=== PATIENT | male | born 1960 | race Caucasian/White ===

== ENCOUNTER 2020-05-19 12:00 | Outpatient (REF) | payer OTHER, SELFPAY ==
[2020-05-19 13:01] LABS: White Blood Count 6.7 X10*3/uL (4.8-10.8)
== END 2020-05-19 12:01 | disposition home or self-care (01) ==
LOC: HO.LABR 12:00
PROVIDERS: PCP Internal Medicine; Visit Provider Nurse Practitioner Psychiatric/Mental Health
DX: F25.0 Schizoaffective disorder, bipolar type (principal); Z79.899 Other long term (current) drug therapy
CPT/HCPCS: 36415; 85048

== ENCOUNTER 2020-05-23 18:01 | Emergency (ER) | payer OTHER, SELFPAY ==
[2020-05-23 18:10] VITALS: BP 98/72; PULSE 100; RESP 19; TEMP 36.4; O2SAT 96; BMI 37.3
--- NOTE | 2020-05-23 19:31 | ED.DENTAL ---
HPI - Dental/Oral General Chief complaint: Dental/Oral Stated complaint: dental pain Time Seen by Provider: 05/23/20 18:57 Source: patient Mode of arrival: ambulatory History of Present Illness HPI Narrative: 59-year-old male with a past medical history of diabetes, schizoaffective schizophrenia complaining of right-sided lower dental pain times months s/p breaking tooth. Reports food gets stuck in area, causing pain chewing. Denies fever, chills, difficulty/ painful swelling, inability to swallow. Reports having difficulty getting in with dentist MD Complaint: tooth pain Related Data Home Medications Medication Instructions Recorded Confirmed ammonium lactate 12 % topical cream 1 applic TOPICAL BID 05/14/20 atorvastatin 10 mg tablet 10 mg PO DAILY 05/14/20 clozapine 100 mg tablet 100 mg PO ONCE tab 05/14/20 dulaglutide 1.5 mg/0.5 mL 1.5 mg SUBCUT QWEEK 05/14/20 subcutaneous pen injector flash glucose scanning reader #1 ea 05/14/20 furosemide 20 mg tablet 20 mg PO DAILY 05/14/20 ibuprofen 800 mg tablet 800 mg PO Q8H 05/14/20 lactulose 10 gram/15 mL (15 mL) 15 ml PO BEDTIME 05/14/20 oral solution magnesium citrate 100 mg tablet 200 mg PO DAILY 05/14/20 metformin 500 mg tablet 500 mg PO BID 05/14/20 omega 8-imf-anr-fish oil 1,200 mg cap PO BID cap 05/14/20 (144 mg-216 mg) capsule zolpidem 10 mg tablet 10 mg PO BEDTIME PRN 05/14/20 Previous Rx's Medication Instructions Recorded dulaglutide 1.5 mg/0.5 mL 1.5 mg SUBCUT QWEEK 30 Days #2.5 ml 05/20/20 subcutaneous pen injector cholecalciferol (vitamin D3) 25 25 mcg PO DAILY 90 Days #90 cap 05/22/20 mcg (1,000 unit) capsule furosemide 20 mg tablet 20 mg PO DAILY 30 Days #30 tab 05/22/20 insulin degludec 100 unit/mL (3 76 unit SUBCUT QAM #24 ml 05/22/20 mL) subcutaneous pen amoxicillin-pot clavulanate 1 tab PO Q12H 7 Days #14 tab 05/23/20 [Augmentin] Allergies Allergy/AdvReac Type Severity Reaction Status Date / Time No Known Allergies Allergy Verified 05/14/20 11:09 [No Known Allergies*] Review of Systems Review of Systems: Constitutional: No Weight loss, No Fever, No Chills, No Night Sweats, No Fatigue, No Malaise ENT/Mouth: No Hearing loss, +R Ear Pain, No Nasal Congestion, No Sinus Pain, No Hoarseness, No sore throat, +dental pain Eyes: No Eye Pain Cardiovascular: No Chest Pain, No SOB Respiratory: No Cough, No Sputum, No Wheezing Skin: No Skin Lesions, No rash PMFSH Past Medical History Attestation statement: The following information was validated with the patient. Medical History (Updated 05/23/20 @ 19:32 by LEXIE Escobar) Diabetes type 2, uncontrolled Schizo affective schizophrenia Surgical History No pertinent past surgical history Family History Family History (Updated 05/14/20 @ 11:11 by Gloria Cohen Zhao) Father HTN (hypertension) Mother Diabetes Social History Social History Alcohol intake: current Alcohol intake frequency: 0-2 drinks per day Alcohol type: beer Smoking Status: Current every day smoker Smoked in Last 30 Days: Yes Use of substances other than those prescribed or required for medical reasons: No Advance Directives: No Advance Directives Information Provided: No Physical Exam Vital Signs: Vital Signs: Vital Signs Temp Pulse Resp BP Pulse Ox 05/23/20 18:10 97.6 F 100 19 98/72 96 Body Mass Index 37.3 Const: General: cooperative and healthy appearing Orientation/consciousness: patient oriented x3 Limitations: no limitations HENMT: Other: multiple dental caries. Right lower gums erythematous/inflamed with ttp. No fluctuance/induration Head: Yes normal to inspection Ears: hearing grossly normal bilaterally and TM's normal bilaterally General nose exam: Normal external nose present Face and sinus: Yes normal facial exam Mouth: Normal oral and palatal mucosa present Teeth and gingiva: abnormal tooth and associated gingiva and poor dentition Throat: Yes uvula midline Eyes: General: appearance normal, both eyes and all related structures EOM: EOMs intact bilaterally Neck: Neck: Yes normal visual inspection and Yes no lymphadenopathy Resp: Effort & Inspection: normal respiratory effort Skin: Wounds: no wounds Neuro: General: patient oriented x3 Extrem: General: Yes normal to inspection Discharge Plan Discharge Clinical Impression: Dental caries Patient Disposition: Home, Self-Care Instructions: Toothache (ED) Additional Instructions: Augmentin is an antibiotic, start taking as prescribed until completion Take Tylenol and Motrin at home for pain Not ice her face You need to follow-up with a dentist as soon as possible If pain becomes worse, fever, there is drainage from area, your unable to eat or drink return to the ED Prescriptions: New amoxicillin-pot clavulanate [Augmentin] 875-125 mg tablet 1 tab PO Q12H 7 Days Qty: 14 RF: 0 No Action Trulicity 1.5 mg/0.5 mL pen injector 1.5 mg subcut QWEEK 30 Days Qty: 2.5 RF: 4 furosemide 20 mg tablet 20 mg PO DAILY 30 Days Qty: 30 RF: 1 insulin degludec [Tresiba FlexTouch U-100] 100 unit/mL (3 mL) insulin pen 76 unit subcut QAM Qty: 24 RF: 0 cholecalciferol (vitamin D3) 25 mcg (1,000 unit) capsule 25 mcg PO DAILY 90 Days Qty: 90 RF: 0 ammonium lactate 12 % cream 1 applic topical BID RF: 0
== END 2020-05-23 19:55 | disposition home or self-care (01) ==
PROVIDERS: Emergency Provider Emergency Medicine Emergency Medical Services; PCP Internal Medicine
DX: K02.9 Dental caries, unspecified (principal); Z79.899 Other long term (current) drug therapy
CPT/HCPCS: 99283; 99284

== ENCOUNTER → 2020-06-01 09:09 | Outpatient (BNVA) | payer OTHER, SELFPAY | PROVIDERS: PCP Internal Medicine; Referring Provider Internal Medicine; Visit Provider Internal Medicine Endocrinology, Diabetes & Metabolism | DX: E11.65 Type 2 diabetes mellitus with hyperglycemia (principal); E66.01 Morbid (severe) obesity due to excess calories; E78.5 Hyperlipidemia, unspecified; E11.649 Type 2 diabetes mellitus with hypoglycemia without coma; E11.42 Type 2 diabetes mellitus with diabetic polyneuropathy; Z79.4 Long term (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 | CPT/HCPCS: 82947; 99214 ==

== ENCOUNTER 2020-06-15 12:15 | Outpatient (REF) | payer OTHER, SELFPAY ==
[2020-06-15 13:29] LABS: Neut%MD 73.4 %; Neutrophils Absolute Auto 4.2 X10*3/uL (2.0-8.3); White Blood Count 5.7 X10*3/uL (4.8-10.8)
[2020-06-15 14:03] LABS: Alanine Aminotransferase 53 U/L (0-40); Albumin Level 4.3 g/dL (3.5-5.0); Alkaline Phosphatase 123 U/L (39-117); Anion Gap 7 (12-20); Aspartate Amino Transferase 28 U/L (5-37); Bilirubin Total 0.5 mg/dL (0.0-1.0); Blood Urea Nitrogen 25 mg/dL (9-16); Calcium 8.4 mg/dL (8.4-10.2); Carbon Dioxide 30 mmol/L (22-29); Chloride 107 mmol/L (96-108); Cholesterol 139 mg/dL; Estimated Glomerular Filt Rate > 60; Glucose Fasting 253 mg/dL (60-99); HDL Cholesterol 28 mg/dL; LDL Cholesterol Calculated 64 mg/dl; Sodium 140 mmol/L (135-145); Total Protein 7.1 g/dL (6.5-8.0); Triglycerides 238 mg/dL
[2020-06-15 14:23] LABS: Vitamin B12 444 pg/mL (200-900)
[2020-06-16 08:12] LABS: LDL Cholesterol Direct 81 mg/dL (<100)
== END 2020-06-15 12:16 | disposition home or self-care (01) ==
LOC: HO.LAB 12:15
PROVIDERS: Absent Provider Nurse Practitioner Psychiatric/Mental Health; PCP Internal Medicine; Visit Provider Internal Medicine Endocrinology, Diabetes & Metabolism
DX: E11.65 Type 2 diabetes mellitus with hyperglycemia (principal); F25.0 Schizoaffective disorder, bipolar type
CPT/HCPCS: 36415; 80053; 80061; 82607; 83721

== ENCOUNTER → 2020-06-26 12:01 | Outpatient (BNVA) | payer OTHER, SELFPAY | PROVIDERS: PCP Internal Medicine; Referring Provider Internal Medicine; Visit Provider Dietitian, Registered | DX: Z76.89 Persons encountering health services in other specified circumstances (principal) ==

== ENCOUNTER 2020-07-03 11:15 | Outpatient (REF) | payer OTHER, SELFPAY ==
--- NOTE | 2020-07-03 11:21 | XR_ITS ---
EXAMINATION: XR KNEE, RIGHT CLINICAL INFORMATION: Right knee pain. COMPARISON: Right knee radiographs dated 06/28/2013. TECHNIQUE: Four views of the right knee. FINDINGS: Mild medial femoral-tibial and patellofemoral joint space narrowing is seen. There is no acute fracture, dislocation or joint effusion. The soft tissues are unremarkable. XR/XR knee RT 4V IMPRESSION: Mild medial femoral-tibial and patellofemoral joint space narrowing, a component of which may be projectional, but mild degenerative joint space narrowing cannot be excluded suggesting mild osteoarthritis. No acute abnormality.
--- NOTE | 2020-07-03 11:21 | XR_ITS ---
EXAMINATION: XR FOOT, RIGHT CLINICAL INFORMATION: Right foot pain. COMPARISON: None TECHNIQUE: AP, lateral, and oblique views of the right foot. FINDINGS: There is no acute fracture or dislocation. The joint spaces are unremarkable. The tarsal bones are normally aligned. Small plantar and moderate retrocalcaneal spurs are seen. The soft tissues are unremarkable. XR/XR foot RT min 3V IMPRESSION: Degenerative calcaneal spurs as detailed above without other significant abnormality.
--- NOTE | 2020-07-03 11:21 | XR_ITS ---
EXAMINATION: XR KNEE, LEFT CLINICAL INFORMATION: Left knee pain. COMPARISON: Left knee radiographs. TECHNIQUE: Four views of the left knee. FINDINGS: Bones and soft tissues are normal. No fracture or joint effusion. Alignment is anatomic. Joint spaces are well maintained. No abnormal soft tissue calcification. XR/XR knee LT 4V IMPRESSION: Unremarkable left knee.
--- NOTE | 2020-07-03 11:21 | XR_ITS ---
EXAMINATION: XR FOOT, LEFT CLINICAL INFORMATION: Left foot pain. COMPARISON: 10/16/2019 left foot radiographs. TECHNIQUE: AP, lateral, and oblique views of the left foot. FINDINGS: There is no acute fracture or dislocation. The joint spaces are unremarkable. The tarsal bones are normally aligned. Small plantar and retrocalcaneal spurs are seen. The soft tissues are unremarkable. XR/XR foot LT min 3V IMPRESSION: Small degenerative calcaneal spurs without significant change.
== END 2020-07-03 11:16 | disposition home or self-care (01) ==
LOC: HO.XRAY 11:15
PROVIDERS: PCP Internal Medicine; Visit Provider Internal Medicine
DX: M79.671 Pain in right foot (principal); M25.561 Pain in right knee; Z13.9 Encounter for screening, unspecified
CPT/HCPCS: 73564; 73630

== ENCOUNTER 2020-07-11 06:18 | Emergency (ER) | payer OTHER, SELFPAY ==
[2020-07-11 06:20] VITALS: BP 120/93; PULSE 84; RESP 18; TEMP 37.5; O2SAT 98; BMI 37.3
[2020-07-11 06:28] VITALS: BP 120/93; PULSE 86; RESP 18; TEMP 37.5; O2SAT 97
[2020-07-11 06:29] VITALS: BP 120/93; PULSE 84; RESP 18; TEMP 37.5; O2SAT 98
[2020-07-11 06:35] LABS: Glucose, Whole Blood 153 mg/dL (60-115)
--- NOTE | 2020-07-11 06:45 | MHC.MBSS ---
pt A&O. NO SOB . NO CHEST PAIN. NO DIZZINESS OR LIGHTHEADEDNESS. PT AMBULATING WITH A STEADY GAIT. PROVIDER IN TO ASSESS PT. BREAKFAST ORDERD FOR PT.
--- NOTE | 2020-07-11 07:04 | ED.GENADULT ---
HPI - General Adult General Chief complaint: General Medical Stated complaint: Med Error Time Seen by Provider: 07/11/20 06:56 Source: patient Mode of arrival: ambulatory Limitations: no limitations History of Present Illness HPI narrative: History of diabetes takes 38 units of Lantus insulin in the morning every day today he took 38 units at 05:30 am and noticed that needle of the syringe was bent but not sure whether received insulin not so he took the 2nd dose of same 38 units but later he realized that he got extra insulin as the first one also injected. patient did not take any short-acting insulin. patient otherwise feeling fine on arrival patient's blood sugar was 153. Also patient would like to get tested for COVID as he went to [employer] yesterday Related Data Home Medications Medication Instructions Recorded Confirmed ammonium lactate 12 % topical cream 1 applic TOPICAL BID 05/14/20 07/03/20 clozapine 100 mg tablet 100 mg PO ONCE tab 05/14/20 07/03/20 flash glucose scanning reader #1 ea 05/14/20 06/01/20 ibuprofen 800 mg tablet 800 mg PO Q8H 05/14/20 07/03/20 lactulose 10 gram/15 mL (15 mL) 15 ml PO BEDTIME 05/14/20 07/03/20 oral solution magnesium citrate 100 mg tablet 200 mg PO DAILY 05/14/20 07/03/20 omega 7-nan-ufz-fish oil 1,200 mg cap PO BID cap 05/14/20 06/01/20 (144 mg-216 mg) capsule zolpidem 10 mg tablet 10 mg PO BEDTIME PRN 05/14/20 07/03/20 Previous Rx's Medication Instructions Recorded furosemide 20 mg tablet 20 mg PO DAILY 30 Days #30 tab 05/22/20 atorvastatin 10 mg tablet 10 mg PO DAILY 30 Days #30 tab 06/01/20 dulaglutide 1.5 mg/0.5 mL 1.5 mg SUBCUT QWEEK 30 Days #2.5 ml 06/01/20 subcutaneous pen injector insulin degludec 100 unit/mL (3 42 unit SUBCUT QAM 30 Days #15 ml 06/01/20 mL) subcutaneous pen metformin 500 mg tablet 500 mg PO BID 30 Days #60 tab 06/01/20 pen needle, diabetic 29 gauge x #100 ea 06/15/20 3/8 cholecalciferol (vitamin D3) 25 25 mcg PO DAILY #90 cap 06/18/20 mcg (1,000 unit) capsule Allergies Allergy/AdvReac Type Severity Reaction Status Date / Time No Known Allergies Allergy Verified 07/03/20 10:37 [No Known Allergies*] Review of Systems Review of Systems: REVIEW OF SYSTEMS: Pertinent positives and negatives are stated above in the history. GEN: no fevers, chills, fatigue HEENT: no nasal congestion, sore throat, ear pain NEURO: no headache, dizziness, focal weakness PULM: no cough, shortness of breath CV: no chest pain, palpitations, LE edema ABD: no abdominal pain, nausea, vomiting, diarrhea : no dysuria, urgency, frequency SKIN: no rash ROS otherwise negative x 10 PMFSH Past Medical History Medical History Benign essential hypertension Chronic kidney disease (CKD), stage III (moderate) Diabetes type 2, uncontrolled Diabetic polyneuropathy associated with 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 mellitus Dyslipidemia 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 mellitus Knee osteoarthritis 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, 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 Morbid obesity Obesity (BMI 30-39.9) Pain in both feet Pure hypercholesterolemia Schizo affective schizophrenia Schizoaffective disorder Type 2 diabetes mellitus with diabetic chronic kidney disease Surgical History History of repair of congenital cleft palate Hx of circumcision No pertinent past surgical history Family History Family History Father HTN (hypertension) Mother Diabetes Social History Social History Alcohol intake: former Smoking Status: Current every day smoker Smoked in Last 30 Days: No Use of substances other than those prescribed or required for medical reasons: No Advance Directives: No Advance Directives Information Provided: No Physical Exam Vital Signs: Vital Signs: Last Vital Signs Temp 99.5 F 07/11/20 06:29 Pulse 84 07/11/20 06:29 Resp 18 07/11/20 06:29 BP 120/93 H 07/11/20 06:29 Pulse Ox 98 07/11/20 06:29 Body Mass Index 37.3 Appearance: Alert. Oriented X3. No acute distress. Eyes: Pupils equal, round and reactive to light. ENT: Pharynx normal. Neck: Normal inspection. Neck supple. CVS: Normal heart rate and rhythm. Pulses normal. Respiratory: No respiratory distress. Breath sounds normal. Abdomen: Soft and nontender. Skin: Skin warm and dry. Normal skin color. Normal skin turgor. Extremities: No lower extremity edema. Good range of movement Neuro: Oriented X 3. No motor deficit. No sensory deficit. Medical Decision Making MDM Narrative Medical decision making narrative: patient with accidental increased dosage of Lantus insulin blood sugar is stable had breakfast in the morning will discharge him home advised to keep checking his blood sugar later on during the daytime and have extra meals not to take any metformin today Lab Data Labs: Lab Results 07/11/20 07/11/20 Range/Units 06:24 09:00 POC Glucose 153 H 188 H (60-115) mg/dL Discharge Plan Discharge Clinical Impression: Diabetes type 2, uncontrolled Patient Disposition: Home, Self-Care Instructions: Type 2 Diabetes Management for Adults (ED) Additional Instructions: check blood sugar every 4 hour during the daytime today. Have extra meal. Report to the ER if blood pressure sugar is consistently lower than 60 Prescriptions: No Action furosemide 20 mg tablet 20 mg PO DAILY 30 Days Qty: 30 RF: 1 Trulicity 1.5 mg/0.5 mL pen injector 1.5 mg subcut QWEEK 30 Days Qty: 2.5 RF: 4 Tresiba FlexTouch U-100 100 unit/mL (3 mL) insulin pen 42 unit subcut QAM 30 Days Qty: 15 RF: 6 (DME) pen needle, diabetic 29 gauge x 3/8 needle See Rx Instructions .ROUTE .MEDSUPPLY Qty: 100 RF: 0 cholecalciferol (vitamin D3) 25 mcg (1,000 unit) capsule 25 mcg PO DAILY Qty: 90 RF: 12 omega 7-jgq-aaz-fish oil [Fish Oil] 1,200 (144-216) mg capsule PO BID RF: 0 zolpidem 10 mg tablet 10 mg PO BEDTIME PRNRF: 0 ammonium lactate 12 % cream 1 applic topical BID RF: 0 magnesium citrate 100 mg tablet 200 mg PO DAILY RF: 0 (DME) FreeStyle Jody 14 Day [place] Misc See Rx Instructions .ROUTE .MEDSUPPLY Qty: 1 RF: 0 lactulose 10 gram/15 mL (15 mL) solution 15 ml PO BEDTIME RF: 0 ibuprofen 800 mg tablet 800 mg PO Q8H RF: 0 clozapine 100 mg tablet 100 mg PO ONCE RF: 0 metformin 500 mg tablet 500 mg PO BID 30 Days Qty: 60 RF: 6 atorvastatin [Lipitor] 10 mg tablet 10 mg PO DAILY 30 Days Qty: 30 RF: 6 Interventions: ED Discharge Assessment Last Done: 07/11/20 09:18 Discharge Date/Time: 07/11/20 09:18
[2020-07-11 09:04] LABS: Glucose, Whole Blood 188 mg/dL (60-115)
== END 2020-07-11 09:18 | disposition home or self-care (01) ==
PROVIDERS: Emergency Provider Internal Medicine; PCP Internal Medicine
DX: E11.9 Type 2 diabetes mellitus without complications (principal); Z79.899 Other long term (current) drug therapy; Z20.828 Contact with and (suspected) exposure to other viral communicable diseases; F17.200 Nicotine dependence, unspecified, uncomplicated; Z71.6 Tobacco abuse counseling
CPT/HCPCS: 82947; 99283; 99284; U0003

== ENCOUNTER 2020-07-13 07:45 | Outpatient (REF) | payer OTHER, SELFPAY ==
[2020-07-13 08:10] LABS: Neut%MD 75.3 %; Neutrophils Absolute Auto 6.7 X10*3/uL (2.0-8.3); WBCANC 8.9 X10*3/uL; White Blood Count 8.9 X10*3/uL (4.8-10.8)
== END 2020-07-13 07:46 | disposition home or self-care (01) ==
LOC: HO.LABR 07:45
PROVIDERS: PCP Internal Medicine; Visit Provider Nurse Practitioner Psychiatric/Mental Health
DX: F25.0 Schizoaffective disorder, bipolar type (principal); Z79.899 Other long term (current) drug therapy
CPT/HCPCS: 36415

== ENCOUNTER 2020-07-24 19:56 | Inpatient (IN) | payer OTHER, SELFPAY ==
[2020-07-24] VITALS (8 sets, daily range): BP systolic 88–117; BP diastolic 53–71; PULSE 80–102; RESP 16–20; TEMP 36.4–36.8; O2SAT 96–97; BMI 81.4
--- NOTE | 2020-07-24 | ECG_ITS ---
Test Reason : CHEST PAIN Blood Pressure : / mmHG Vent. Rate : 103 BPM Atrial Rate : 103 BPM P-R Int : 142 ms QRS Dur : 090 ms QT Int : 372 ms P-R-T Axes : 046 -25 009 degrees QTc Int : 487 ms Sinus tachycardia Otherwise normal ECG When compared with ECG of 09-JAN-2017 17:25, No significant change was found Referred By: Generic ED Physician Electronically Signed By:NEVILLE SOTO
--- NOTE | 2020-07-24 20:36 | PC.NURSE ---
with standing pt states he is dizzy. pt placed in a wheelchair after triaged.
--- NOTE | 2020-07-24 21:05 | XR_ITS ---
EXAMINATION: XR CHEST CLINICAL INFORMATION: Chest pain COMPARISON: 01/09/2017 TECHNIQUE: Frontal view of the chest was obtained. FINDINGS: No significant abnormality is noted involving the heart, lungs, mediastinum, bony thorax or soft tissues. Some mild degenerative changes are present in the spine and there is a tiny area of atelectasis in the left lower lobe. XR/XR chest 1V IMPRESSION: No acute intrathoracic disease.
--- NOTE | 2020-07-24 21:40 | ED.CHESTPAIN ---
HPI - Chest Pain General Chief Complaint: Chest Pain Stated Complaint: Chest pain/Dizziness Time Seen by Provider: 07/24/20 20:50 Source: patient Mode of arrival: ambulatory Limitations: no limitations History of Present Illness HPI narrative: This is a 59-year-old male with significant past medical history of diabetes presents with reported chest pain to the left anterior chest, aching in nature, non radiating that lasted approximately 1 to 1-1/2 hours at approximately 5:30 p.m. this evening. Patient states that this occurred at his [employer] job. 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 In addition, patient states that he has been having some difficulties with dizziness that he experiences when he changes position from being in a bent over position to a standing position that is transient in nature and does describe associated problems with a recent bout of diarrhea that is nonbloody. Otherwise, patient denies any fevers, chills, shortness of breath, diaphoresis, nausea, vomiting, abdominal pain, urinary pain/burning/frequency. He lives at home by himself. Related Data Home Medications Medication Instructions Recorded Confirmed clozapine 100 mg tablet 100 mg PO ONCE tab 05/14/20 07/25/20 flash glucose scanning reader #1 ea 05/14/20 07/25/20 ibuprofen 800 mg tablet 800 mg PO Q8H 05/14/20 07/25/20 omega 2-rjg-ift-fish oil 1,200 mg 1 cap PO BID cap 05/14/20 07/25/20 (144 mg-216 mg) capsule insulin degludec [Tresiba 65 unit SUBCUT QAM 07/25/20 07/25/20 FlexTouch U-200] Previous Rx's Medication Instructions Recorded furosemide 20 mg tablet 20 mg PO DAILY 30 Days #30 tab 05/22/20 atorvastatin 10 mg tablet 10 mg PO DAILY 30 Days #30 tab 06/01/20 dulaglutide 1.5 mg/0.5 mL 1.5 mg SUBCUT QWEEK 30 Days #2.5 ml 06/01/20 subcutaneous pen injector metformin 500 mg tablet 500 mg PO BID 30 Days #60 tab 06/01/20 pen needle, diabetic 29 gauge x #100 ea 06/15/20 3/8 cholecalciferol (vitamin D3) 25 25 mcg PO DAILY #90 cap 06/18/20 mcg (1,000 unit) capsule lactulose 10 gram/15 mL (15 mL) 15 ml PO BEDTIME #600 ml 07/20/20 oral solution Allergies Allergy/AdvReac Type Severity Reaction Status Date / Time No Known Allergies Allergy Verified 07/20/20 10:27 [No Known Allergies*] Review of Systems Review of Systems: Pertinent positives and negatives as stated in HPI 10 point review of systems otherwise negative. 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 Morbid obesity Obesity (BMI 30-39.9) Pain in both feet Pure hypercholesterolemia Schizo affective schizophrenia Schizoaffective disorder Type 2 diabetes mellitus with diabetic chronic kidney disease Surgical History History of repair of congenital cleft palate Hx of circumcision No pertinent past surgical history Family History Family History Father HTN (hypertension) Mother Diabetes Social History Social History Alcohol intake: former Smoking Status: Current every day smoker Smoked in Last 30 Days: No Use of substances other than those prescribed or required for medical reasons: No Advance Directives: No Advance Directives Information Provided: Yes Physical Exam Vital Signs: Vital Signs: Last Vital Signs Temp 97.4 F 07/25/20 05:49 Pulse 82 07/25/20 05:49 Resp 16 07/25/20 05:49 BP 116/75 07/25/20 05:49 Pulse Ox 95 07/25/20 05:49 Body Mass Index 81.4 VITAL SIGNS: Reviewed. GENERAL: Morbidly obese, Well developed, well nourished, in no acute distress. HEAD: Normocephalic/atraumatic, EYES: PERRLA, EOMI intact without pain, no nystagmus/pallor/icterus noted EARS: Ext canals without abnormality, TMs non-bulging and non-erythematous NOSE: Nares patent bilateral OROPHARYNX: no oral lesions noted, posterior pharynx clear and non-erythematous without noted tonsillar enlargement/erythema/exudates NECK: Supple, no adenopathy LUNGS: Normal breath sounds. No adventitious sounds or accessory muscle use. SpO2<96> CARDIOVASCULAR: Regular rate and rhythm without noted murmurs, no JVD or lower extremity edema. ABDOMEN: Soft, non-tender, non-distended with bowel sounds. No rigidity. No guarding. No palpable masses or hernias noted MUSCULOSKELETAL: No tenderness, deformities, or effusions noted on gross inspection. EXTREMITIES: No cyanosis, clubbing or edema. SKIN: Inspection of the skin reveals no rashes, ulcerations, jaundice, pallor, or petechiae. NEUROLOGIC: Alert and oriented x 4. Strength and sensation to light touch were grossly intact x 4. Course Course Course Narrative: This is a 59-year-old male with history and clinical presentation suggestive of chest pain of a musculoskeletal nature, however will rule out pneumonia, cardiac ischemia and dizziness that is not associated with focal deficits and is likely secondary to a combination poorly controlled diabetes in conjunction with volume depleted state after diarrhea. Will rule out DKA, HHS, infection, or anemia. On review of all investigations patient has a leukocytosis which in combination with the hypotension and tachycardia meets severe sepsis criteria and was treated accordingly with blood cultures, lactic acid, antibiotics, fluids (IBW). Chest x-ray although being read as atelectasis in the left lower lobe in conjunction with patient's reports of left-sided chest pain suspicious for possible development of pneumonia. Patient's blood pressure responded well to IV hydration and there was no evidence of DKA or HHS. Urinalysis was negative for any acute findings and unable to CT chest currently as patient exceeds CT scan weight limitations. High sensitivity troponin was noted to be mildly elevated there were no corresponding EKG changes but will get a 2nd high sensitivity troponin. This case was discussed with the inpatient hospitalist team who is agreeable for admission. Reevaluation(s) Reevaluation #1: Sepsis focused exam completed. Time: 00:59 [facility] - Chest Pain Lab Data Result diagrams: 07/24/20 22:06 07/24/20 22:06 Labs: Lab Results 07/24/20 07/24/20 07/24/20 Range/Units 21:42 22:06 22:06 WBC 14.1 H (4.8-10.8) X10*3/uL RBC 4.77 (4.60-5.80) X10*6/uL Hgb 14.6 (14.0-18.0) g/dl Hct 40.6 L (42-52) % MCV 85.1 (80-98) fL MCH 30.6 (27.0-33.0) pg MCHC 36.0 (31.0-36.0) g/dl RDW 13.2 (11.0-16.0) % Plt Count 138 L (160-400) X10*3/uL MPV 10.4 (9.4-12.4) fL Immature Gran % (Auto) 0.4 (0.0-0.4) % Neut % (Auto) 81.2 H (45-73) % Lymph % (Auto) 12.1 L (20-40) % [place] % (Auto) 6.2 (2-11) % Eos % (Auto) 0.0 (0-4) % Baso % (Auto) 0.1 (0-2) % Lymph # (Auto) 1.7 (1.2-4.9) X10*3/uL [place] # (Auto) 0.9 (0.1-1.2) X10*3/uL Eos # (Auto) 0.0 (0.0-0.4) X10*3/uL Baso # (Auto) 0.0 (0.0-0.2) X10*3/uL Abs Immat Gran (auto) 0.06 H (0.00-0.03) X10*3/uL Absolute Neuts (auto) 11.4 H (2.0-8.3) X10*3/uL Absolute Nucleated RBC 0.000 (0.0-0.012) X10*3/uL Nucleated RBC % (auto) 0.0 (0.0-0.2) /100WBC Smear Tech's Comments VERIFIED Sodium 138 (135-145) mmol/L Potassium 3.8 (3.3-5.1) mmol/l Chloride 101 (96-108) mmol/L Carbon Dioxide 24 (22-29) mmol/L Anion Gap 17 (12-20) BUN 19 H (9-16) mg/dL Creatinine 1.98 H (0.5-1.4) mg/dL Estim Creat Clear Calc 93.1 Estimated GFR 35 POC Glucose 137 H (60-115) mg/dL Random Glucose 140 H (60-115) mg/dL Lactic Acid (0.5-2.0) mmol/L Calcium 9.5 D (8.4-10.2) mg/dL Total Bilirubin 0.6 (0.0-1.0) mg/dL AST 24 (5-37) U/L ALT 60 H (0-40) U/L Alkaline Phosphatase 129 H (39-117) U/L Troponin I High Sens (<3.5-35.0) ng/L Total Protein 7.4 (6.5-8.0) g/dL Albumin 4.5 (3.5-5.0) g/dL Lipase (8-78) U/L Urine Color Urine Appearance Urine pH (5.0-8.0) Ur Specific Painter (1.005-1.025) Urine Protein (NEG-TRACE) MG/DL Urine Glucose (UA) (NEG) MG/DL Urine Ketones (NEG) MG/DL Urine Blood (NEG) Urine Nitrite (NEG) Ur Leukocyte Esterase (NEG) Acetone, Qual Negative (Negative) Coronavirus (PCR) (Negative) Influenza Type A (PCR) (Negative) Influenza Type B (PCR) (Negative) RSV RNA Qual (PCR) (Negative) 07/24/20 07/24/20 07/24/20 Range/Units 22:06 22:06 22:06 WBC (4.8-10.8) X10*3/uL RBC (4.60-5.80) X10*6/uL Hgb (14.0-18.0) g/dl Hct (42-52) % MCV (80-98) fL MCH (27.0-33.0) pg MCHC (31.0-36.0) g/dl RDW (11.0-16.0) % Plt Count (160-400) X10*3/uL MPV (9.4-12.4) fL Immature Gran % (Auto) (0.0-0.4) % Neut % (Auto) (45-73) % Lymph % (Auto) (20-40) % [place] % (Auto) (2-11) % Eos % (Auto) (0-4) % Baso % (Auto) (0-2) % Lymph # (Auto) (1.2-4.9) X10*3/uL [place] # (Auto) (0.1-1.2) X10*3/uL Eos # (Auto) (0.0-0.4) X10*3/uL Baso # (Auto) (0.0-0.2) X10*3/uL Abs Immat Gran (auto) (0.00-0.03) X10*3/uL Absolute Neuts (auto) (2.0-8.3) X10*3/uL Absolute Nucleated RBC (0.0-0.012) X10*3/uL Nucleated RBC % (auto) (0.0-0.2) /100WBC Smear Tech's Comments Sodium (135-145) mmol/L Potassium (3.3-5.1) mmol/l Chloride (96-108) mmol/L Carbon Dioxide (22-29) mmol/L Anion Gap (12-20) BUN (9-16) mg/dL Creatinine (0.5-1.4) mg/dL Estim Creat Clear Calc Estimated GFR POC Glucose (60-115) mg/dL Random Glucose (60-115) mg/dL Lactic Acid 1.8 (0.5-2.0) mmol/L Calcium (8.4-10.2) mg/dL Total Bilirubin (0.0-1.0) mg/dL AST (5-37) U/L ALT (0-40) U/L Alkaline Phosphatase (39-117) U/L Troponin I High Sens 11.4 (<3.5-35.0) ng/L Total Protein (6.5-8.0) g/dL Albumin (3.5-5.0) g/dL Lipase 26 (8-78) U/L Urine Color Urine Appearance Urine pH (5.0-8.0) Ur Specific Painter (1.005-1.025) Urine Protein (NEG-TRACE) MG/DL Urine Glucose (UA) (NEG) MG/DL Urine Ketones (NEG) MG/DL Urine Blood (NEG) Urine Nitrite (NEG) Ur Leukocyte Esterase (NEG) Acetone, Qual (Negative) Coronavirus (PCR) (Negative) Influenza Type A (PCR) (Negative) Influenza Type B (PCR) (Negative) RSV RNA Qual (PCR) (Negative) 07/25/20 07/25/20 07/25/20 Range/Units 00:30 00:32 00:51 WBC (4.8-10.8) X10*3/uL RBC (4.60-5.80) X10*6/uL Hgb (14.0-18.0) g/dl Hct (42-52) % MCV (80-98) fL MCH (27.0-33.0) pg MCHC (31.0-36.0) g/dl RDW (11.0-16.0) % Plt Count (160-400) X10*3/uL MPV (9.4-12.4) fL Immature Gran % (Auto) (0.0-0.4) % Neut % (Auto) (45-73) % Lymph % (Auto) (20-40) % [place] % (Auto) (2-11) % Eos % (Auto) (0-4) % Baso % (Auto) (0-2) % Lymph # (Auto) (1.2-4.9) X10*3/uL [place] # (Auto) (0.1-1.2) X10*3/uL Eos # (Auto) (0.0-0.4) X10*3/uL Baso # (Auto) (0.0-0.2) X10*3/uL Abs Immat Gran (auto) (0.00-0.03) X10*3/uL Absolute Neuts (auto) (2.0-8.3) X10*3/uL Absolute Nucleated RBC (0.0-0.012) X10*3/uL Nucleated RBC % (auto) (0.0-0.2) /100WBC Smear Tech's Comments Sodium (135-145) mmol/L Potassium (3.3-5.1) mmol/l Chloride (96-108) mmol/L Carbon Dioxide (22-29) mmol/L Anion Gap (12-20) BUN (9-16) mg/dL Creatinine (0.5-1.4) mg/dL Estim Creat Clear Calc Estimated GFR POC Glucose (60-115) mg/dL Random Glucose (60-115) mg/dL Lactic Acid (0.5-2.0) mmol/L Calcium (8.4-10.2) mg/dL Total Bilirubin (0.0-1.0) mg/dL AST (5-37) U/L ALT (0-40) U/L Alkaline Phosphatase (39-117) U/L Troponin I High Sens 10.7 (<3.5-35.0) ng/L Total Protein (6.5-8.0) g/dL Albumin (3.5-5.0) g/dL Lipase (8-78) U/L Urine Color YELLOW Urine Appearance CLEAR Urine pH 6.0 (5.0-8.0) Ur Specific Painter 1.010 (1.005-1.025) Urine Protein TRACE (NEG-TRACE) MG/DL Urine Glucose (UA) NEG (NEG) MG/DL Urine Ketones NEG (NEG) MG/DL Urine Blood NEG (NEG) Urine Nitrite NEG (NEG) Ur Leukocyte Esterase NEG (NEG) Acetone, Qual (Negative) Coronavirus (PCR) NEGATIVE (Negative) Influenza Type A (PCR) NEGATIVE (Negative) Influenza Type B (PCR) NEGATIVE (Negative) RSV RNA Qual (PCR) NEGATIVE (Negative) ECG Data ECG #1: Attestation: I personally reviewed and interpreted this ECG as follows: Prior ECG tracings: available for review (01/09/2017 no acute changes on comparison) Interpretation: Normal sinus rhythm, HR-103, no evidence of acute ischemia, IN/QRS/QTC within normal limits Discharge Plan Discharge Clinical Impression: Severe sepsis Pneumonia Qualifiers: Pneumonia type: due to unspecified organism Laterality: unspecified laterality Lung location: unspecified part of lung Qualified Code(s): J18.9 - Pneumonia, unspecified organism Patient Disposition: Admitted As Inpatient
[2020-07-24 21:48] LABS: Glucose, Whole Blood 137 mg/dL (60-115)
[2020-07-24 22:18] LABS: Basophils Percent Auto 0.1 % (0-2); Imm Gran Pct Auto 0.4 % (0.0-0.4); MANUAL DIFF FLAG SCAN; Mean Corpuscular Volume 85.1 fL (80-98); Mean Platelet Volume 10.4 fL (9.4-12.4); Neutrophils Percent Auto 81.2 % (45-73); PLT CLUMP 1; SCAN SMEAR FLAG 1
[2020-07-24 22:19] LABS: Hematocrit 40.6 % (42-52); Hemoglobin 14.6 g/dl (14.0-18.0); Imm Gran Abs Auto 0.06 X10*3/uL (0.00-0.03); Lymphocytes Absolute Auto 1.7 X10*3/uL (1.2-4.9); Lymphocytes Percent Auto 12.1 % (20-40); Mean Corpuscular Hemoglobin 30.6 pg (27.0-33.0); Monocytes Absolute Auto 0.9 X10*3/uL (0.1-1.2); Monocytes Percent Auto 6.2 % (2-11); Neutrophils Absolute Auto 11.4 X10*3/uL (2.0-8.3); Platelet Count 138 X10*3/uL (160-400); Red Blood Count 4.77 X10*6/uL (4.60-5.80); Red Cell Distribution Width 13.2 % (11.0-16.0); White Blood Count 14.1 X10*3/uL (4.8-10.8)
[2020-07-24 22:20] LABS: SLIDE REVIEW VERIFIED
[2020-07-24] MEDS: 0.9 % Sodium Chloride 2,397 ML 2397 ML IVCONT (22:33)
[2020-07-24 22:45] LABS: Lipase 26 U/L (8-78)
[2020-07-24 22:47] LABS: Alanine Aminotransferase 60 U/L (0-40); Albumin Level 4.5 g/dL (3.5-5.0); Alkaline Phosphatase 129 U/L (39-117); Anion Gap 17 (12-20); Aspartate Amino Transferase 24 U/L (5-37); Bilirubin Total 0.6 mg/dL (0.0-1.0); Blood Urea Nitrogen 19 mg/dL (9-16); Calcium 9.5 mg/dL (8.4-10.2); Carbon Dioxide 24 mmol/L (22-29); Chloride 101 mmol/L (96-108); Creatinine Clr Calc Pharmacy 93.1; Estimated Glomerular Filt Rate 35; Glucose Random 140 mg/dL (60-115); Potassium 3.8 mmol/l (3.3-5.1); Sodium 138 mmol/L (135-145); Total Protein 7.4 g/dL (6.5-8.0)
[2020-07-24] MEDS: cefTRIAXone sodium 1 GM in 0.9 % Sodium Chloride 50 ML IV (22:47)
[2020-07-24 22:49] LABS: Lactic Acid 1.8 mmol/L (0.5-2.0)
[2020-07-24 23:00] LABS: Troponin-I High Sensitivity 11.4 ng/L (<3.5-35.0)
[2020-07-24 23:12] LABS: Acetone, serum QL Negative (Negative)
[2020-07-25 00:48] LABS: Glucose Urine UA NEG (NEG); Leukocyte Esterase Urine NEG (NEG); Nitrite Urine NEG (NEG); Urine Blood NEG (NEG); Urine Ketones NEG (NEG); Urine Protein TRACE MG/DL (NEG-TRACE)
[2020-07-25 00:51] LABS: Appearance Urine CLEAR; Color Urine YELLOW; UACC Culture Trigger NO
[2020-07-25 01:21] LABS: Troponin-I High Sensitivity 10.7 ng/L (<3.5-35.0)
[2020-07-25 01:42] LABS: Influenza A PCR NEGATIVE (Negative); Influenza B PCR NEGATIVE (Negative); Resp Syncy Virus RNA Qual PCR NEGATIVE (Negative); SARS COV2 PCR INHOUSE NEGATIVE (Negative)
[2020-07-25 01:51] VITALS: BP 124/72; RESP 16
--- NOTE | 2020-07-25 02:40 | PC.NURSE ---
pt denies any distress. pt is sleeping at this time.
[2020-07-25 03:46] VITALS: PULSE 12
--- NOTE | 2020-07-25 03:46 | PC.NURSE ---
pt is sleeping at this time. call arvizu in reach. no sign of distress at this time.
--- NOTE | 2020-07-25 05:17 | PM.IMHP ---
History of Present Illness Date of Service: 07/25/20 Chief Complaint: Dizziness This is a 59-year-old male with past medical history of hypertension, diabetes, schizoaffective disorder who presents to the hospital with complaints of dizziness. Patient has a history of schizoaffective disorder and is not really a good historian as he is unable to give me timeline of his symptoms nor details. Patient reports that he has been having on and off dizziness for an unknown period of time, he has had no loss of consciousness coma or presyncopal or syncopal episodes. He is also complaining of constipation, he reports that he started using lactulose but is not suffering from diarrhea, he also complaining of cough, sputum production, no fever or chills, no abdominal pain, no urinary symptoms and no lower extremity edema. Describes the dizziness as vertigo, mostly on getting up, or after he bends his head down and gets up. On arrival to the ED patient was found to have a heart rate of 102, hypotensive with BP in the improved to 120 4/70 to when I saw the patient Labs are significant for WBC count of 14, with a neutrophilic shift, BUN of 19 with a creatinine of 1.98, baseline around 1.1-1.2, respiratory panel including COVID-19 negative, UA negative, chest x-ray shows Infiltrate in the left lower lobe Past medical history: Diabetes, hyperlipidemia, hypertension, CKD stage 3, schizoaffective disorder, history of constipation Past surgical history: Repair of congenital cleft palate, Family history: Hypertension diabetes Social history: Comes from home, denies tobacco alcohol or illicit drugs Review of Systems Review of Systems: Yes all other systems are reviewed and are negative [facility] Medical History Benign essential hypertension Chronic kidney disease (CKD), stage III (moderate) Diabetes type 2, uncontrolled Diabetic polyneuropathy associated with 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 mellitus Dyslipidemia 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 mellitus Knee osteoarthritis Knee pain, bilateral 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 Morbid obesity Obesity (BMI 30-39.9) Pain in both feet Pure hypercholesterolemia Schizo affective schizophrenia Schizoaffective disorder Type 2 diabetes mellitus with diabetic chronic kidney disease Family History Father HTN (hypertension) Mother Diabetes Surgical History History of repair of congenital cleft palate Hx of circumcision No pertinent past surgical history Social History Alcohol intake: former Smoking Status: Current every day smoker Smoked in Last 30 Days: No Use of substances other than those prescribed or required for medical reasons: No Advance Directives: No Advance Directives Information Provided: Yes Meds Allergies Allergy/AdvReac Type Severity Reaction Status Date / Time No Known Allergies Allergy Verified 07/20/20 10:27 [No Known Allergies*] Home Medications Medication Instructions Recorded Confirmed Type clozapine 100 mg tablet 100 mg PO ONCE tab 05/14/20 07/25/20 History flash glucose scanning reader #1 ea 05/14/20 07/25/20 History ibuprofen 800 mg tablet 800 mg PO Q8H 05/14/20 07/25/20 History omega 3-nmo-akj-fish oil 1,200 mg 1 cap PO BID cap 05/14/20 07/25/20 History (144 mg-216 mg) capsule insulin degludec [Tresiba 65 unit SUBCUT QAM 07/25/20 07/25/20 History FlexTouch U-200] Physical Exam Vital Signs and Narrative: Vital Signs: Last Vital Signs Temp 97.6 F 07/24/20 22:00 Pulse 12 L 07/25/20 03:46 Resp 16 07/25/20 01:51 BP 124/72 07/25/20 01:51 Pulse Ox 97 07/24/20 22:00 Body Mass Index 81.4 Const: General: cooperative and no acute distress Orientation/consciousness: patient oriented x3 Eyes: General: appearance normal, both eyes and all related structures Pupils: Equal, round and reactive pupils present Resp: Effort & Inspection: normal respiratory effort and able to speak in complete sentences Auscultation: clear to auscultation bilaterally Cardio: Rate: regular rate Rhythm: regular rhythm GI: Palpation (GI): Soft to palpation Auscultation: normal bowel sounds Skin: General skin exam: no rashes or lesions noted Neuro: General: patient oriented x3 Cranial nerves: Yes Equal, round and reactive pupils present Cognition (Neuro): normal cognition Extrem: General: Yes normal to inspection and Yes no pedal edema Results Labs CBC and Chem 7: 07/24/20 22:06 07/24/20 22:06 Labs: Laboratory Results - last 24 hr 07/24/20 07/24/20 07/24/20 21:42 22:06 22:06 MCV 85.1 MCH 30.6 MCHC 36.0 RDW 13.2 Plt Count 138 L MPV 10.4 Immature Gran % (Auto) 0.4 Neut % (Auto) 81.2 H Lymph % (Auto) 12.1 L [place] % (Auto) 6.2 Eos % (Auto) 0.0 Baso % (Auto) 0.1 Lymph # (Auto) 1.7 [place] # (Auto) 0.9 Eos # (Auto) 0.0 Baso # (Auto) 0.0 Abs Immat Gran (auto) 0.06 H Absolute Neuts (auto) 11.4 H Absolute Nucleated RBC 0.000 Nucleated RBC % (auto) 0.0 Smear Tech's Comments VERIFIED Anion Gap 17 Creatinine 1.98 H Estim Creat Clear Calc 93.1 Estimated GFR 35 POC Glucose 137 H Random Glucose 140 H Lactic Acid Calcium 9.5 D Total Bilirubin 0.6 AST 24 ALT 60 H Alkaline Phosphatase 129 H Troponin I High Sens Total Protein 7.4 Albumin 4.5 Lipase Urine Color Urine Appearance Urine pH Ur Specific [place] Urine Protein Urine Glucose (UA) Urine Ketones Urine Blood Urine Nitrite Ur Leukocyte Esterase Acetone, Qual Negative Coronavirus (PCR) Influenza Type A (PCR) Influenza Type B (PCR) RSV RNA Qual (PCR) 07/24/20 07/24/20 07/24/20 22:06 22:06 22:06 MCV MCH MCHC RDW Plt Count MPV Immature Gran % (Auto) Neut % (Auto) Lymph % (Auto) [place] % (Auto) Eos % (Auto) Baso % (Auto) Lymph # (Auto) [place] # (Auto) Eos # (Auto) Baso # (Auto) Abs Immat Gran (auto) Absolute Neuts (auto) Absolute Nucleated RBC Nucleated RBC % (auto) Smear Tech's Comments Anion Gap Creatinine Estim Creat Clear Calc Estimated GFR POC Glucose Random Glucose Lactic Acid 1.8 Calcium Total Bilirubin AST ALT Alkaline Phosphatase Troponin I High Sens 11.4 Total Protein Albumin Lipase 26 Urine Color Urine Appearance Urine pH Ur Specific [place] Urine Protein Urine Glucose (UA) Urine Ketones Urine Blood Urine Nitrite Ur Leukocyte Esterase Acetone, Qual Coronavirus (PCR) Influenza Type A (PCR) Influenza Type B (PCR) RSV RNA Qual (PCR) 07/25/20 07/25/20 07/25/20 00:30 00:32 00:51 MCV MCH MCHC RDW Plt Count MPV Immature Gran % (Auto) Neut % (Auto) Lymph % (Auto) [place] % (Auto) Eos % (Auto) Baso % (Auto) Lymph # (Auto) [place] # (Auto) Eos # (Auto) Baso # (Auto) Abs Immat Gran (auto) Absolute Neuts (auto) Absolute Nucleated RBC Nucleated RBC % (auto) Smear Tech's Comments Anion Gap Creatinine Estim Creat Clear Calc Estimated GFR POC Glucose Random Glucose Lactic Acid Calcium Total Bilirubin AST ALT Alkaline Phosphatase Troponin I High Sens 10.7 Total Protein Albumin Lipase Urine Color YELLOW Urine Appearance CLEAR Urine pH 6.0 Ur Specific [place] 1.010 Urine Protein TRACE Urine Glucose (UA) NEG Urine Ketones NEG Urine Blood NEG Urine Nitrite NEG Ur Leukocyte Esterase NEG Acetone, Qual Coronavirus (PCR) NEGATIVE Influenza Type A (PCR) NEGATIVE Influenza Type B (PCR) NEGATIVE RSV RNA Qual (PCR) NEGATIVE Imaging Radiologist's Impressions: Impressions Chest X-Ray 07/24/20 21:05 IMPRESSION: No acute intrathoracic disease. Assessment and Plan (1) Sepsis: Status: Acute (2) Dizziness: Status: Acute (3) Pneumonia: Qualifiers: Laterality: unspecified laterality Lung location: unspecified part of lung Pneumonia type: due to unspecified organism Qualified Code(s): J18.9 - Pneumonia, unspecified organism Status: Acute (4) Benign essential hypertension: Status: Acute (5) Acute kidney injury superimposed on CKD: Status: Acute (6) Type 2 diabetes mellitus with diabetic chronic kidney disease: Qualifiers: Chronic kidney disease stage: stage 3 (moderate) Chronic kidney disease stage 3 subtype: unspecified whether 3a or 3b Diabetes mellitus long term acute care registered nurse insulin use: with long term acute care registered nurse use Qualified Code(s): E11.22 - Type 2 diabetes mellitus with diabetic chronic kidney disease; N18.30 - Chronic kidney disease, stage 3 unspecified; 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 # sepsis - knee sepsis criteria based on heart rate, hypertension, OREL - most likely source is pneumonia, patient does have cough, and reports mild dyspnea, chest x-ray showing atelectasis although concerning for infiltrate in the left lower lobe Plan: - will start patient on ceftriaxone and azithromycin - follow blood cultures -IV fluids # ROEL on CKD - most likely prerenal in the setting of dehydration as well as sepsis Plan: - IV fluids, follow BMP # vertigo - possibly secondary to dehydration and current illness although patient unclear about timeline - orthostatics vitals negative Plan: - IV fluids - assess for vertigo prior to discharge, if continues to have vertigo consider consulting PT to demonstrate Marge maneuver # community-acquired pneumonia - has a cough, not hypoxic, - COVID-19 negative, rest of respiratory viral panel negative Plan: - ceftriaxone azithromycin, - blood cultures - urine strep and Legionella antigen # diabetes - will hold p.o. meds - low-dose sliding scale insulin - diabetic diet # hyperlipidemia - continue statin # anxiety - continue clozapine DVT prophylaxis: Lovenox
[2020-07-25 05:49] VITALS: BP 116/75; PULSE 82; RESP 16; TEMP 36.3; O2SAT 95
--- NOTE | 2020-07-25 06:52 | PC.NURSE ---
PT AWAITING BED ASSIGNMENT. PT IS SITTING IN RECLINER PER REQUEST. BREAKFAST ORDERED.
--- NOTE | 2020-07-25 06:59 | PC.NURSE ---
report taken from shannon giraldo pt sitting up in bedside chair, awaiting inpt bed assignment. appears to be resting rr even/unlabored. asking about morning medications. wctm.
[2020-07-25 07:31] LABS: Glucose, Whole Blood 145 mg/dL (60-115)
[2020-07-25] MEDS: Furosemide 20 MG TABLET PO (07:36)
[2020-07-25] MEDS: metFORMIN HCl 500 MG TABLET PO (07:36)
[2020-07-25] MEDS: Cholecalciferol (Vitamin D3) 25 MCG TABLET PO ×2 (07:36→16:45)
[2020-07-25] MEDS: cloZAPine 100 MG TABLET PO (07:41)
--- NOTE | 2020-07-25 07:43 | PC.NURSE ---
morning meds obtained, poc glucose checked and pt given breakfast tray. calm and cooperative. perseverative about trishiba shot which is unavailable at this facility.
--- NOTE | 2020-07-25 09:19 | PC.NURSE ---
pt ambulated to and from bathroom w steady gait.
--- NOTE | 2020-07-25 09:53 | PC.NURSE ---
pt friend janay updated.
--- NOTE | 2020-07-25 10:17 | PC.NURSE ---
hospitalist at bedside for eval.
[2020-07-25 12:39] VITALS: BP 122/75; PULSE 84; RESP 16; TEMP 36.7; O2SAT 97
--- NOTE | 2020-07-25 12:48 | PC.NURSE ---
pt sts having sight slight chest pain that pt reports has since resolved. vss. wctm.
[2020-07-25 14:49] LABS: Glucose, Whole Blood 110 mg/dL (60-115)
--- NOTE | 2020-07-25 15:03 | PC.NURSE ---
report given to c enzo hayden
[2020-07-25 16:00] VITALS: BP 128/72; PULSE 82; RESP 18; TEMP 35.9; O2SAT 95
[2020-07-25] MEDS: Lactated Ringers 1,000 ML 100 ML IVCONT (16:30)
[2020-07-25] MEDS: 0.9 % Sodium Chloride Flush 3 ML SYRINGE IVFLUSH ×2 (16:31→16:44)
[2020-07-25] MEDS: Ibuprofen 800 MG TABLET PO (16:44)
[2020-07-25] MEDS: Azithromycin 500 MG TABLET PO (16:44)
[2020-07-25] MEDS: Enoxaparin Sodium 40 MG/0.4 ML SYRINGE SUBCUT (16:45)
[2020-07-25 17:14] LABS: Glucose, Whole Blood 117 mg/dL (60-115)
[2020-07-25 19:21] VITALS: BP 118/72; PULSE 75; RESP 18; TEMP 36.6; O2SAT 98
[2020-07-25] MEDS: Atorvastatin Calcium 10 MG TABLET PO (20:16)
[2020-07-25] MEDS: cefTRIAXone sodium 1 GM in 0.9 % Sodium Chloride 50 ML IV (20:16)
[2020-07-25] MEDS: Lactulose 20 GM/30 ML SOLUTION 10 GM PO (20:16)
[2020-07-25] MEDS: cloZAPine 100 MG TABLET 300 MG PO (20:16)
[2020-07-25 20:34] LABS: Glucose, Whole Blood 104 mg/dL (60-115)
[2020-07-25 22:54] LABS: Glucose, Whole Blood 152 mg/dL (60-115)
[2020-07-26] VITALS: BP 111/56; PULSE 81; RESP 20; TEMP 36.5; O2SAT 96
[2020-07-26] MEDS: Ibuprofen 800 MG TABLET PO ×2 (00:16→08:58)
[2020-07-26] MEDS: Lactated Ringers 1,000 ML 100 ML IVCONT (02:34)
[2020-07-26 03:52] VITALS: BP 102/59; PULSE 73; RESP 18; TEMP 36.4; O2SAT 97
[2020-07-26 07:27] VITALS: BP 128/75; PULSE 77; RESP 17; TEMP 36.7; O2SAT 95
[2020-07-26 07:41] LABS: Hemoglobin 13.4 g/dl (14.0-18.0); Imm Gran Abs Auto 0.03 X10*3/uL (0.00-0.03); Imm Gran Pct Auto 0.5 % (0.0-0.4); Monocytes Absolute Auto 0.5 X10*3/uL (0.1-1.2); Monocytes Percent Auto 7.2 % (2-11); Red Cell Distribution Width 13.1 % (11.0-16.0)
[2020-07-26 07:43] LABS: Basophils Percent Auto 0.2 % (0-2); Hematocrit 37.6 % (42-52); Lymphocytes Absolute Auto 1.6 X10*3/uL (1.2-4.9); Lymphocytes Percent Auto 25.2 % (20-40); Mean Corpuscular HGB Conc 35.6 g/dl (31.0-36.0); Mean Corpuscular Hemoglobin 30.5 pg (27.0-33.0); Mean Corpuscular Volume 85.6 fL (80-98); Mean Platelet Volume 10.9 fL (9.4-12.4); Neutrophils Absolute Auto 4.3 X10*3/uL (2.0-8.3); Neutrophils Percent Auto 66.9 % (45-73); Platelet Count 116 X10*3/uL (160-400); Red Blood Count 4.39 X10*6/uL (4.60-5.80); White Blood Count 6.4 X10*3/uL (4.8-10.8)
[2020-07-26 08:04] LABS: Anion Gap 14 (12-20); Blood Urea Nitrogen 19 mg/dL (9-16); Carbon Dioxide 25 mmol/L (22-29); Chloride 108 mmol/L (96-108); Creatinine Clr Calc Pharmacy 154.9; Estimated Glomerular Filt Rate > 60; Glucose Random 122 mg/dL (60-115); Potassium 4.1 mmol/l (3.3-5.1); Sodium 143 mmol/L (135-145)
[2020-07-26 08:10] LABS: Glucose, Whole Blood 135 mg/dL (60-115)
[2020-07-26 08:39] LABS: Calcium 8.8 mg/dL (8.4-10.2)
[2020-07-26] MEDS: Cholecalciferol (Vitamin D3) 25 MCG TABLET PO (08:58)
[2020-07-26] MEDS: cloZAPine 100 MG TABLET PO (08:58)
[2020-07-26] MEDS: 0.9 % Sodium Chloride Flush 3 ML SYRINGE IVFLUSH (09:00)
--- NOTE | 2020-07-26 09:01 | MHC.CM.PN ---
PT REPORTS HE LIVES ALONE AND HAS A WORM FARMER THAT COMES TO ASSIST WITH CLEANING, A NURSE THAT ARRANGES HIS MEDICATIONS, A FUR DRESSING SUPERVISOR AND A THERAPIST FROM [facility]. PT REPORTS HE HAS SUPPLIES RELATED TO HIS DM AND RAILS IN HIS BATHROOM AND NO OTHER DME. PT REPORTS HE HAS A HCP COMPLETED NAMING HIS FRIEND CARLOS AND HIS COUSIN, LATRICE, HIS AGENTS. IMM DELIVERED CURRENT DC PLAN IS HOME WITH RESUMPTION OF OUTPATIENT SUPPORTS PTS CAR IS IN THE PARKING LOT
[2020-07-26 10:51] VITALS: BP 127/73; PULSE 81; RESP 16; TEMP 36.7; O2SAT 96
--- NOTE | 2020-07-26 11:07 | PM.DS ---
DS: Providers Provider Date of admission: 07/25/20 02:07 Primary care physician: Luis Manuel Garcia MD DS: Diagnosis Discharge Diagnosis (1) Sepsis: Status: Acute (2) Dizziness: Status: Acute (3) Pneumonia: Status: Acute (4) Benign essential hypertension: Status: Acute (5) Acute kidney injury superimposed on CKD: Status: Acute (6) Type 2 diabetes mellitus with diabetic chronic kidney disease: Status: Acute (7) Dyslipidemia: Status: Acute (8) Diabetes type 2, uncontrolled: Status: Acute DS: Medications Discharge Medications Home Medications: Home Medications Medication Instructions Recorded Confirmed clozapine 100 mg tablet 100 mg PO DAILY tab 05/14/20 07/25/20 flash glucose scanning reader #1 ea 05/14/20 07/25/20 ibuprofen 800 mg tablet 800 mg PO Q8H 05/14/20 07/25/20 omega 2-slt-jsy-fish oil 1,200 mg 1 cap PO BID cap 05/14/20 07/25/20 (144 mg-216 mg) capsule Tresiba FlexTouch U-200 65 unit SUBCUT QAM 07/25/20 07/25/20 clozapine 300 mg PO BEDTIME 07/25/20 07/25/20 Previous Rx's Medication Instructions Recorded furosemide 20 mg tablet 20 mg PO DAILY 30 Days #30 tab 05/22/20 atorvastatin 10 mg tablet 10 mg PO DAILY 30 Days #30 tab 06/01/20 dulaglutide 1.5 mg/0.5 mL 1.5 mg SUBCUT QWEEK 30 Days #2.5 ml 06/01/20 subcutaneous pen injector metformin 500 mg tablet 500 mg PO BID 30 Days #60 tab 06/01/20 pen needle, diabetic 29 gauge x #100 ea 06/15/2010/19 cholecalciferol (vitamin D3) 25 25 mcg PO DAILY #90 cap 06/18/20 mcg (1,000 unit) capsule lactulose 10 gram/15 mL (15 mL) 15 ml PO BEDTIME #600 ml 07/20/20 oral solution azithromycin 500 mg PO Q24H #5 tab 07/26/20 cefuroxime axetil 500 mg PO BID #10 tab 07/26/20 DS: Summary Hospital Course Hospital Course: Admission note HPI This is a 59-year-old male with past medical history of hypertension, diabetes, schizoaffective disorder who presents to the hospital with complaints of dizziness. Patient has a history of schizoaffective disorder and is not really a good historian as he is unable to give me timeline of his symptoms nor details. Patient reports that he has been having on and off dizziness for an unknown period of time, he has had no loss of consciousness coma or presyncopal or syncopal episodes. He is also complaining of constipation, he reports that he started using lactulose but is not suffering from diarrhea, he also complaining of cough, sputum production, no fever or chills, no abdominal pain, no urinary symptoms and no lower extremity edema. Describes the dizziness as vertigo, mostly on getting up, or after he bends his head down and gets up. On arrival to the ED patient was found to have a heart rate of 102, hypotensive with BP in the improved to 120 4/70 to when I saw the patient Labs are significant for WBC count of 14, with a neutrophilic shift, BUN of 19 with a creatinine of 1.98, baseline around 1.1-1.2, respiratory panel including COVID-19 negative, UA negative, chest x-ray shows Infiltrate in the left lower lobe Hospital course The patient was admitted to the hospital for evaluation of shortness of breath and cough. Found to be septic as a result of left lower lobe atelectasis treated as pneumonia with IV antibiotics of azithromycin and ceftriaxone. Blood cultures remain negative after 24 hours. Patient on room and feels much better today asking about leaving home. He was able to ambulate on room air with no reported shortness of breath. Will discharge home on azithromycin and Ceftin to finish total of 7 days of antibiotics. His kidney function was noted to be altered at time of presentation with creatinine about 2 from baseline of 1.1. Improved with using IV fluid to 1.2. Can restart his home medication upon discharge and follow-up with PCP as scheduled Time Spent with Patient Time attestation: Total time spent providing and/or coordinating discharge services: Physical Exam Vital Signs: Vital Signs: Last Vital Signs Temp 98.0 F 07/26/20 10:51 Pulse 81 07/26/20 10:51 Resp 16 07/26/20 10:51 BP 127/73 07/26/20 10:51 Pulse Ox 96 07/26/20 10:51 Body Mass Index 81.4 Constitutional : Alert, oriented, not in distress Neck : Normal inspection, Supple Cardiovascular : RRR, S1 S2, no lower extremity edema Respiratory : Good bilateral air entry, left find basis a crackles, wheezes or rhonchi Gastrointestinal: soft, lax, Normal bowel sounds, Non tender Skin : Warm/Dry, No rash Neurological : Alert & oriented x3, No focal deficit DS: Data Data Completed and Pending Labs on day of discharge: 07/24/20 ECG 12 lead EKG Stat 07/24/20 20:00 EKG Documentation DIRECTED 07/24/20 21:05 XR chest 1V Stat 07/24/20 21:42 Glucose, Whole Blood Routine 07/24/20 22:06 Acetone, serum QL Stat Complete Blood Count Auto Diff Stat Comprehensive Met. Panel Stat Lactic Acid Stat Lipase Stat SLIDE REVIEW Stat Troponin-I High Sensitivity Stat 07/24/20 22:17 0.9 % Sodium Chloride [Ns] 2,397 ml IVCONT 2,397 mls/hr 07/24/20 22:33 cefTRIAXone sodium [Rocephin] 1 gm 0.9 % Sodium Chloride [Ns] 50 ml IV ONCE 07/24/20 22:44 cefTRIAXone sodium [Rocephin] 1 gm .ROUTE .STK-MED ONE 07/24/20 23:49 SARS-CoV2/FLU/RSV Stat 07/25/20 00:27 UA CC w/rflx Micro + Cult Stat 07/25/20 00:51 Troponin-I High Sensitivity Routine 07/25/20 01:54 Transfer Order Routine 07/25/20 07:14 Cholecalciferol (Vitamin D3) [Vitamin D3] 25 mcg PO ONCE ONE Furosemide [Lasix] 20 mg PO ONCE ONE cloZAPine [Clozaril] 100 mg PO ONCE ONE metFORMIN HCl [Glucophage] 500 mg PO ONCE ONE 07/25/20 07:27 Glucose, Whole Blood Routine 07/25/20 14:45 Glucose, Whole Blood Routine 07/25/20 15:03 Lactated Ringers [Lr] 1,000 ml IVCONT 100 mls/hr 07/25/20 15:03 IV insert/maintain Q4HR Vital Signs Q4HR 07/25/20 15:30 insulin degludec [Tresiba FlexTouch U-200] 60 unit SUBCUT QAM 07/25/20 15:40 Patient Own Medication 60 each SUBCUT DAILY 07/25/20 16:17 Flu Vacc [id number](6mos up)/PF [Fluarix Quad 3056-4835] 0.5 ml IM .ONCE ONE 07/25/20 16:54 Glucose, Whole Blood Routine 07/25/20 20:14 cefTRIAXone sodium [Rocephin] 1 gm .ROUTE .STK-MED ONE 07/25/20 20:30 Glucose, Whole Blood Routine 07/25/20 22:50 Glucose, Whole Blood Routine 07/26/20 05:59 Basic Metabolic Panel Routine Complete Blood Count Auto Diff Routine 07/26/20 07:25 Glucose, Whole Blood Routine 07/26/20 09:00 Patient Own Medication 0 each SUBCUT DAILY 07/27/20 09:00 Patient Own Medication 0 each SUBCUT DAILY Laboratory Last Values WBC 6.4 X10*3/uL (4.8-10.8) 07/26/20 05:59 RBC 4.39 X10*6/uL (4.60-5.80) L 07/26/20 05:59 Hgb 13.4 g/dl (14.0-18.0) L 07/26/20 05:59 Hct 37.6 % (42-52) L 07/26/20 05:59 MCV 85.6 fL (80-98) 07/26/20 05:59 MCH 30.5 pg (27.0-33.0) 07/26/20 05:59 MCHC 35.6 g/dl (31.0-36.0) 07/26/20 05:59 RDW 13.1 % (11.0-16.0) 07/26/20 05:59 Plt Count 116 X10*3/uL (160-400) L 07/26/20 05:59 MPV 10.9 fL (9.4-12.4) 07/26/20 05:59 Immature Gran % (Auto) 0.5 % (0.0-0.4) H 07/26/20 05:59 Neut % (Auto) 66.9 % (45-73) 07/26/20 05:59 Lymph % (Auto) 25.2 % (20-40) 07/26/20 05:59 [place] % (Auto) 7.2 % (2-11) 07/26/20 05:59 Eos % (Auto) 0.0 % (0-4) 07/26/20 05:59 Baso % (Auto) 0.2 % (0-2) 07/26/20 05:59 Lymph # (Auto) 1.6 X10*3/uL (1.2-4.9) 07/26/20 05:59 [place] # (Auto) 0.5 X10*3/uL (0.1-1.2) 07/26/20 05:59 Eos # (Auto) 0.0 X10*3/uL (0.0-0.4) 07/26/20 05:59 Baso # (Auto) 0.0 X10*3/uL (0.0-0.2) 07/26/20 05:59 Abs Immat Gran (auto) 0.03 X10*3/uL (0.00-0.03) 07/26/20 05:59 Absolute Neuts (auto) 4.3 X10*3/uL (2.0-8.3) 07/26/20 05:59 Absolute Nucleated RBC 0.000 X10*3/uL (0.0-0.012) 07/26/20 05:59 Nucleated RBC % (auto) 0.0 /100WBC (0.0-0.2) 07/26/20 05:59 Smear Tech's Comments VERIFIED 07/24/20 22:06 Sodium 143 mmol/L (135-145) 07/26/20 05:59 Potassium 4.1 mmol/l (3.3-5.1) 07/26/20 05:59 Chloride 108 mmol/L (96-108) 07/26/20 05:59 Carbon Dioxide 25 mmol/L (22-29) 07/26/20 05:59 Anion Gap 14 (-20) 07/26/20 05:59 BUN 19 mg/dL (9-16) H 07/26/20 05:59 Creatinine 1.19 mg/dL (0.5-1.4) 07/26/20 05:59 Estim Creat Clear Calc 154.9 07/26/20 05:59 Estimated GFR > 60 07/26/20 05:59 POC Glucose 135 mg/dL (60-115) H 07/26/20 07:25 Random Glucose 122 mg/dL (60-115) H 07/26/20 05:59 Lactic Acid 1.8 mmol/L (0.5-2.0) 07/24/20 22:06 Calcium 8.8 mg/dL (8.4-10.2) D 07/26/20 05:59 Total Bilirubin 0.6 mg/dL (0.0-1.0) 07/24/20 22:06 AST 24 U/L (5-37) 07/24/20 22:06 ALT 60 U/L (0-40) H 07/24/20 22:06 Alkaline Phosphatase 129 U/L (39-117) H 07/24/20 22:06 Troponin I High Sens 10.7 ng/L (<3.5-35.0) 07/25/20 00:51 Total Protein 7.4 g/dL (6.5-8.0) 07/24/20 22:06 Albumin 4.5 g/dL (3.5-5.0) 07/24/20 22:06 Lipase 26 U/L (8-78) 07/24/20 22:06 Urine Color YELLOW 07/25/20 00:30 Urine Appearance CLEAR 07/25/20 00:30 Urine pH 6.0 (5.0-8.0) 07/25/20 00:30 Ur Specific Breaks 1.010 (1.005-1.025) 07/25/20 00:30 Urine Protein TRACE MG/DL (NEG-TRACE) 07/25/20 00:30 Urine Glucose (UA) NEG MG/DL (NEG) 07/25/20 00:30 Urine Ketones NEG MG/DL (NEG) 07/25/20 00:30 Urine Blood NEG (NEG) 07/25/20 00:30 Urine Nitrite NEG (NEG) 07/25/20 00:30 Ur Leukocyte Esterase NEG (NEG) 07/25/20 00:30 Acetone, Qual Negative (Negative) 07/24/20 22:06 Coronavirus (PCR) NEGATIVE (Negative) 07/25/20 00:32 Influenza Type A (PCR) NEGATIVE (Negative) 07/25/20 00:32 Influenza Type B (PCR) NEGATIVE (Negative) 07/25/20 00:32 RSV RNA Qual (PCR) NEGATIVE (Negative) 07/25/20 00:32 Preliminary micro results at discharge 07/24/20 22:09 Blood Culture - Preliminary Blood - Venous No growth after 24 hours. 07/24/20 22:09 Blood Culture - Preliminary Blood - Venous No growth after 24 hours. Discharge Plan Discharge Patient Disposition: Home, Self-Care Referrals: Luis Manuel Garcia MD [Primary Care Provider] - Discharge Medications: New azithromycin 500 mg Tablet 500 mg PO Q24H Qty: 5 RF: 0 cefuroxime axetil 500 mg tablet 500 mg PO BID Qty: 10 RF: 0 Continued furosemide 20 mg tablet 20 mg PO DAILY 30 Days Qty: 30 RF: 1 Trulicity 1.5 mg/0.5 mL pen injector 1.5 mg subcut QWEEK 30 Days Qty: 2.5 RF: 4 (DME) pen needle, diabetic 29 gauge x 3/8 needle See Rx Instructions .ROUTE .MEDSUPPLY Qty: 100 RF: 0 cholecalciferol (vitamin D3) 25 mcg (1,000 unit) capsule 25 mcg PO DAILY Qty: 90 RF: 12 Tresiba FlexTouch U-200 200 unit/mL (3 mL) insulin pen 65 unit subcut QAM RF: 0 clozapine 100 mg tablet 300 mg PO BEDTIME RF: 0 lactulose 10 gram/15 mL (15 mL) solution 15 ml PO BEDTIME Qty: 600 RF: 0 omega 6-qet-hkz-fish oil [Fish Oil] 1,200 (144-216) mg capsule 1 cap PO BID RF: 0 (DME) FreeStyle [facility] Misc See Rx Instructions .ROUTE .MEDSUPPLY Qty: 1 RF: 0 ibuprofen 800 mg tablet 800 mg PO Q8H RF: 0 clozapine 100 mg tablet 100 mg PO DAILY RF: 0 metformin 500 mg tablet 500 mg PO BID 30 Days Qty: 60 RF: 6 atorvastatin [Lipitor] 10 mg tablet 10 mg PO DAILY 30 Days Qty: 30 RF: 6 Discharge Orders: Discharge Order (Routine); Ordered 07/26/20 Ordered By: Ronit Chavis Diet: advance to usual diet Activity on Discharge: As tolerated Visit Report Forms: Patient Portal Discharge page Care Plan Goals: Read below Health Concerns: Read below Plan of Treatment: You have presented to the hospital complaining of dizziness, cough with sputum production. Your blood work and chest imaging were concerning for pneumonia. Your treated with IV antibiotics with good response. Your blood cultures remain negative time continue to monitor them until the finalized. Your kidney function was noted to be altered at time of presentation. It improved back to baseline this morning. Will discharge home on azithromycin and Ceftin for 5 more days To follow-up with primary care physician as scheduled Please come back to the hospital for any worsening shortness of breath, fever or difficulty breathing.
--- NOTE | 2020-07-26 11:18 | MHC.CM.PN ---
PT BEING DISCHARGED HOME TODAY WITH RESUMPTION OF [facility]. NO NEW SERVICES ORDERED [facility] NOTIFIED VIA T/C [phone] WILL [address]IVE HIMSELF HOME
[2020-07-26 12:07] LABS: Glucose, Whole Blood 232 mg/dL (60-115)
[2020-07-26] MEDS: Insulin Lispro 100 UNIT/ML 3 ML VIAL SUBCUT (12:16)
[2020-07-26 14:45] LABS: Glucose, Whole Blood 118 mg/dL (60-115)
[2020-07-29 06:58] LABS: Strep Pneumo Ag urine Not Detected (Not Detected)
[2020-07-29 11:58] LABS: Legionella Ag Urine Not Detected (Not Detected)
== END 2020-07-26 14:57 | disposition home or self-care (01) | DRG 872 ==
LOC: HO.ED 07-25 01:02 → HO.IMC 07-25 14:14
PROVIDERS: Admitting Provider Internal Medicine; Emergency Provider Student in an Organized Health Care Education/Training Program; PCP Internal Medicine; Visit Provider Student in an Organized Health Care Education/Training Program
DX: A41.9 Sepsis, unspecified organism (principal); N17.9 Acute kidney failure, unspecified; Z68.45 Body mass index [BMI] 70 or greater, adult; E66.01 Morbid (severe) obesity due to excess calories; Z20.828 Contact with and (suspected) exposure to other viral communicable diseases; I12.9 Hypertensive chronic kidney disease with stage 1 through stage 4 chronic kidney disease, or unspecified chronic kidney disease; E11.22 Type 2 diabetes mellitus with diabetic chronic kidney disease; N18.30 Chronic kidney disease, stage 3 unspecified; I95.9 Hypotension, unspecified; E11.42 Type 2 diabetes mellitus with diabetic polyneuropathy; F25.9 Schizoaffective disorder, unspecified; E78.5 Hyperlipidemia, unspecified; F41.9 Anxiety disorder, unspecified; Z87.891 Personal history of nicotine dependence; Z79.1 Long term (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 of non-steroidal anti-inflammatories (NSAID); Z79.4 Long term (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; Z79.899 Other long term (current) drug therapy
CPT/HCPCS: 0241U; 36415; 71045; 80048; 80053; 81003; 82009; 82947; 83605; 83690; 84484; 85025; 87040; 87449; 87899; 93005; 96361; 96374; 99285; J0696; J1650

== ENCOUNTER 2020-08-10 14:43 | Emergency (ER) | payer OTHER, SELFPAY ==
[2020-08-10 19:18] VITALS: BP 107/54; PULSE 89; RESP 18; TEMP 36.8; O2SAT 99; BMI 35.9
--- NOTE | 2020-08-10 19:52 | PC.NURSE ---
PT AMBULATES TO ROOM #5 WITH C/O LOWER ABD PAIN AND CONSTIPATION X 4-5 DAY. PT NOT VERY WILLING TO CHG INTO GOWN AND REQUESTING TO STAY IN CLOTHES. PT ARRIVES ALERT, RESPIRATIONS EASY, N/L. SKIN W/D. PT AWAITING FOR MD'S EVAL.
--- NOTE | 2020-08-10 20:00 | XR_ITS ---
EXAMINATION: XR ABDOMEN KUB CLINICAL INDICATION: Question constipation COMPARISON: None TECHNIQUE: AP view of the abdomen. FINDINGS: No dilated air-filled loops of small bowel to suggest an obstructive process. Moderate stool burden is present throughout the colon. There are degenerative changes of the lumbar spine. Visualized lung bases are well aerated. XR/XR KUB IMPRESSION: Moderate stool burden throughout the colon consistent with constipation.
--- NOTE | 2020-08-10 20:10 | ED.GENADULT ---
HPI - General Adult General Chief complaint: General Medical Stated complaint: CONSTIPATION Time Seen by Provider: 08/10/20 19:51 Source: patient Mode of arrival: ambulatory History of Present Illness HPI narrative: Patient comes emergency room complaining of constipation. Patient states that he is compliant with his medications to help him move his bowels, however, patient now complaining of constipation for several days. Patient states that he feels or something hard in his rectum, this morning he was able to pass a small pebble sized to MD complaint: Constipation Related Data Home Medications Medication Instructions Recorded Confirmed clozapine 100 mg tablet 100 mg PO DAILY tab 05/14/20 07/25/20 flash glucose scanning reader #1 ea 05/14/20 07/25/20 ibuprofen 800 mg tablet 800 mg PO Q8H 05/14/20 07/25/20 omega 8-zds-yyf-fish oil 1,200 mg 1 cap PO BID cap 05/14/20 07/25/20 (144 mg-216 mg) capsule Tresiba FlexTouch U-200 65 unit SUBCUT QAM 07/25/20 07/25/20 clozapine 300 mg PO BEDTIME 07/25/20 07/25/20 dulaglutide 1.5 mg/0.5 mL 1.5 mg SUBCUT QWEEK 07/29/20 subcutaneous pen injector insulin degludec 200 unit/mL (3 64 unit SUBCUT DAILY ml 07/29/20 mL) subcutaneous pen Previous Rx's Medication Instructions Recorded furosemide 20 mg tablet 20 mg PO DAILY 30 Days #30 tab 05/22/20 atorvastatin 10 mg tablet 10 mg PO DAILY 30 Days #30 tab 06/01/20 dulaglutide 1.5 mg/0.5 mL 1.5 mg SUBCUT QWEEK 30 Days #2.5 ml 06/01/20 subcutaneous pen injector metformin 500 mg tablet 500 mg PO BID 30 Days #60 tab 06/01/20 pen needle, diabetic 29 gauge x #100 ea 06/15/2010/19 cholecalciferol (vitamin D3) 25 25 mcg PO DAILY #90 cap 06/18/20 mcg (1,000 unit) capsule lactulose 10 gram/15 mL (15 mL) 15 ml PO BEDTIME #600 ml 07/20/20 oral solution azithromycin 500 mg PO Q24H #5 tab 07/26/20 cefuroxime axetil 500 mg PO BID #10 tab 07/26/20 gabapentin 300 mg capsule 300 mg PO BEDTIME 30 Days #30 cap 07/29/20 Allergies Allergy/AdvReac Type Severity Reaction Status Date / Time No Known Allergies Allergy Verified 08/10/20 19:17 [No Known Allergies*] Review of Systems Review of Systems: Constitutional : No Weight loss, No Fever, No Chills, No Night Sweats, No Fatigue, No Malaise ENT/Mouth : No Hearing loss, No Ear Pain, No Nasal Congestion, No Sinus Pain, No Hoarseness, No sore throat, No Rhinorrhea, No Swallowing Difficulty Eyes: No Eye Pain, No Swelling, No Redness, No Foreign Body, No Discharge, No Vision Changes Cardiovascular : No Chest Pain, No SOB, No Dyspnea on Exertion, No Orthopnea, No Edema, No Palpitations Respiratory : No Cough, No Sputum, No Wheezing, No Smoke Exposure, No Dyspnea Gastrointestinal : No Nausea, No Vomiting, No Diarrhea, complaining of Constipation, No abdominal Pain, complaining of mild distension, complaining of rectal pressure Genitourinary : no irregular bleeding, No Dysuria, No Urinary Frequency, No Hematuria, No Urinary Incontinence, No Urgency, No Flank Pain, No Urinary Flow Changes, No Hesitancy Musculoskeletal : No joint pain, No Myalgias, No Joint Swelling Skin : No Skin Lesions, No rash Neuro : No Weakness, No Numbness, No Paresthesias, No Loss of Consciousness, No Dizziness, No Headache Psych : No Anxiety/Panic, No Depression, No SI/HI/AH/VH, No Social Issues, Heme/Lymph: No Bruising, No Bleeding,No Lymphadenopathy Endocrine : No Polyuria, No Polydipsia, No Temperature Intolerance [facility] Past Medical History Medical History Benign essential hypertension Chronic kidney disease (CKD), stage III (moderate) Diabetes type 2, uncontrolled Diabetic polyneuropathy associated with 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 mellitus Dyslipidemia Hospital discharge follow-up 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 mellitus Knee osteoarthritis Knee pain, bilateral MCC (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 Morbid obesity Obesity (BMI 30-39.9) Pain in both feet Pure hypercholesterolemia Schizo affective schizophrenia Schizoaffective disorder Type 2 diabetes mellitus with diabetic chronic kidney disease Surgical History History of repair of congenital cleft palate Hx of circumcision No pertinent past surgical history Family History Family History Father HTN (hypertension) Mother Diabetes Social History Social History Household Members: None Housing: Apartment Alcohol intake: former Smoking Status: Former smoker Tobacco Type: Cigarette Second Hand Smoke Exposure: No Advance Directives: No Advance Directives Information Provided: Yes service: No Current occupational status: employed Physical Exam Vital Signs: Vital Signs: Last Vital Signs Temp 98.3 F 08/10/20 19:18 Pulse 89 08/10/20 19:18 Resp 18 08/10/20 19:18 BP 107/54 L 08/10/20 19:18 Pulse Ox 99 08/10/20 19:18 Body Mass Index 35.9 Appearance: Alert. Oriented X3. No acute distress. Eyes: Pupils equal, round and reactive to light. ENT: Pharynx normal. Neck: Normal inspection. Neck supple. No lymph nodes noted. No crepitus CVS: Normal heart rate and rhythm. Pulses normal. Normal S1 and S2 Respiratory: No respiratory distress. Breath sounds normal. No Wheezing. No rales Abdomen: Soft and nontender. No rigidity. Mild distention. good BS x4 Skin: Skin warm and dry. Normal skin color. Normal skin turgor. Extremities: No lower extremity edema. No lower extremity edema. No Lacerations. No Rash Neuro: Oriented X 3. No motor deficit. No sensory deficit. Moving all extermities. No slurred speech. Course Course Course Narrative: Patient had a large bowel movement, patient states he feels much better. Medical Decision Making Imaging Data kub: Radiologist's impression: FINDINGS: No dilated air-filled loops of small bowel to suggest an obstructive process. Moderate stool burden is present throughout the colon. There are degenerative changes of the lumbar spine. Visualized lung bases are well aerated. XR/XR KUB IMPRESSION: Moderate stool burden throughout the colon consistent with constipation. Discharge Plan Discharge Clinical Impression: Constipation Qualifiers: Constipation type: unspecified constipation type Qualified Code(s): K59.00 - Constipation, unspecified Patient Disposition: Home, Self-Care Instructions: Constipation (ED) Additional Instructions: Please follow-up with your primary care physician tomorrow. If you have any worsening or new symptoms, please return to the emergency room or call 911 Prescriptions: No Action furosemide 20 mg tablet 20 mg PO DAILY 30 Days Qty: 30 RF: 1 Trulicity 1.5 mg/0.5 mL pen injector 1.5 mg subcut QWEEK 30 Days Qty: 2.5 RF: 4 (DME) pen needle, diabetic 29 gauge x 3/8 needle See Rx Instructions .ROUTE .MEDSUPPLY Qty: 100 RF: 0 cholecalciferol (vitamin D3) 25 mcg (1,000 unit) capsule 25 mcg PO DAILY Qty: 90 RF: 12 Tresiba FlexTouch U-200 200 unit/mL (3 mL) insulin pen 65 unit subcut QAM RF: 0 clozapine 100 mg tablet 300 mg PO BEDTIME RF: 0 azithromycin 500 mg Tablet 500 mg PO Q24H Qty: 5 RF: 0 cefuroxime axetil 500 mg tablet 500 mg PO BID Qty: 10 RF: 0 lactulose 10 gram/15 mL (15 mL) solution 15 ml PO BEDTIME Qty: 600 RF: 0 gabapentin 300 mg capsule 300 mg PO BEDTIME 30 Days Qty: 30 RF: 0 omega 5-obd-mqv-fish oil [Fish Oil] 1,200 (144-216) mg capsule 1 cap PO BID RF: 0 (DME) FreeStyle [facility] [place] Misc See Rx Instructions .ROUTE .MEDSUPPLY Qty: 1 RF: 0 ibuprofen 800 mg tablet 800 mg PO Q8H RF: 0 clozapine 100 mg tablet 100 mg PO DAILY RF: 0 metformin 500 mg tablet 500 mg PO BID 30 Days Qty: 60 RF: 6 atorvastatin [Lipitor] 10 mg tablet 10 mg PO DAILY 30 Days Qty: 30 RF: 6
[2020-08-10] MEDS: Mineral OiL enema 133 ML ENEMA PR (21:23)
--- NOTE | 2020-08-10 21:31 | PC.NURSE ---
PT GIVEN AN ENEMA FOR CONSTIPATION PER EMAR.
== END 2020-08-10 22:33 | disposition home or self-care (01) ==
PROVIDERS: Emergency Provider Emergency Medicine; PCP Internal Medicine
DX: K59.00 Constipation, unspecified (principal); Z87.891 Personal history of nicotine dependence; Z79.899 Other long term (current) drug therapy
CPT/HCPCS: 74018; 99283

== ENCOUNTER 2020-08-12 08:55 | Outpatient (REF) | payer OTHER, SELFPAY ==
[2020-08-12 09:29] LABS: Neutrophils Absolute Auto 6.1 X10*3/uL (2.0-8.3); WBCANC 7.7 X10*3/uL; White Blood Count 7.7 X10*3/uL (4.8-10.8)
--- NOTE | 2020-08-12 10:34 | XR_ITS ---
EXAMINATION: XR HAND, RIGHT CLINICAL INFORMATION: Right hand pain. COMPARISON: None TECHNIQUE: PA, lateral, and oblique views of the right hand. Positioning is suboptimal. FINDINGS: There is no acute fracture or dislocation. The joint spaces are unremarkable. The carpal bones are normally aligned. The distal radius and ulna are intact. There is mild to moderate soft tissue swelling. XR/XR hand RT 2V IMPRESSION: Mild to moderate soft tissue swelling without acute fracture or significant degenerative changes.
== END 2020-08-12 08:56 | disposition home or self-care (01) ==
LOC: HO.LABR 08:55
PROVIDERS: PCP Internal Medicine; Referring Provider Internal Medicine; Visit Provider Nurse Practitioner Psychiatric/Mental Health
DX: M79.641 Pain in right hand (principal); F25.0 Schizoaffective disorder, bipolar type; Z79.899 Other long term (current) drug therapy
CPT/HCPCS: 36415; 73120; 85048

== ENCOUNTER → 2020-08-13 09:41 | Outpatient (BNVA) | payer OTHER, SELFPAY | PROVIDERS: PCP Internal Medicine; Referring Provider Internal Medicine; Visit Provider Nurse Practitioner | DX: Z13.89 Encounter for screening for other disorder (principal) | CPT/HCPCS: Q3014 ==

== ENCOUNTER → 2020-08-17 12:08 | Outpatient (BNVA) | payer OTHER, SELFPAY | PROVIDERS: PCP Internal Medicine; Visit Provider Dietitian, Registered | DX: Z76.89 Persons encountering health services in other specified circumstances (principal) ==

== ENCOUNTER → 2020-09-04 08:44 | Outpatient (BNVA) | payer OTHER, SELFPAY | PROVIDERS: PCP Internal Medicine; Visit Provider Nurse Practitioner | DX: Z13.89 Encounter for screening for other disorder (principal) | CPT/HCPCS: Q3014 ==

== ENCOUNTER 2020-09-08 13:04 | Outpatient (REF) | payer OTHER, SELFPAY ==
[2020-09-08 14:15] LABS: Neut%MD 72.7 %; Neutrophils Absolute Auto 6.2 X10*3/uL (2.0-8.3); WBCANC 8.5 X10*3/uL; White Blood Count 8.5 X10*3/uL (4.8-10.8)
[2020-09-12 05:33] LABS: Norclozapine 525 mcg/L (25-400)
[2020-09-12 07:40] LABS: Clozapine (Clozaril) 1000
== END 2020-09-08 13:05 | disposition home or self-care (01) ==
LOC: HO.LAB 13:04
PROVIDERS: PCP Internal Medicine; Referring Provider Nurse Practitioner Psychiatric/Mental Health; Visit Provider Nurse Practitioner Psychiatric/Mental Health
DX: F25.0 Schizoaffective disorder, bipolar type (principal); Z79.899 Other long term (current) drug therapy
CPT/HCPCS: 36415; 80159; 85048

== ENCOUNTER → 2020-09-17 09:11 | Outpatient (BNVA) | payer OTHER, SELFPAY | PROVIDERS: PCP Internal Medicine; Visit Provider Nurse Practitioner | DX: Z13.89 Encounter for screening for other disorder (principal) | CPT/HCPCS: Q3014 ==

== ENCOUNTER 2020-10-03 07:11 | Emergency (ER) | payer OTHER, SELFPAY ==
--- NOTE | ~2020-10-03 | CT_ITS ---
EXAMINATION: CT ABDOMEN AND PELVIS WITHOUT CONTRAST CLINICAL INFORMATION: Diffuse abdominal pain COMPARISON: Previous [facility] July 2020, renal and bladder ultrasound 12/14/2019 and abdominal ultrasound March 2018 TECHNIQUE: Multidetector volumetric imaging was performed from the superior aspect of the liver through the pubic symphysis. Sagittal and coronal reformatted images were obtained on the technologist's workstation. This CT examination was performed using dose optimization techniques as appropriate, variously including the following: *Automated exposure control *Adjustment of mA and/or kV according to patient size (this includes techniques or standardized protocols for targeted exams where dose is matched to indication/reason for exam; i.e. extremities or head) *Use of iterative reconstruction technique DLP: 109 3mGy-cm FINDINGS: LUNG BASES: The visualized lung bases are unremarkable. LIVER, GALLBLADDER, AND BILIARY TREE: The liver has a slightly nodular contour and there is hypertrophy of the left lobe and caudate lobe questionable for mild cirrhotic changes. No focal liver lesion is seen. The gallbladder is unremarkable. There is no biliary duct dilatation. PANCREAS: There is fatty infiltration of the pancreas. SPLEEN: The spleen is enlarged measuring 15 cm in length. ADRENAL GLANDS: Unremarkable. KIDNEYS AND URETERS: There is a small 2 mm stone in the lower pole and 1 mm stone in the midpole of the right kidney. There is a 5 mm low-attenuation lesion exophytic to the lower pole of the right kidney probably representing a cyst. The left kidney is unremarkable. BLADDER: Unremarkable. GASTROINTESTINAL TRACT: The colon is dilated. There is stool seen throughout the colon suggestive of a severe constipation. No focal mass or wall thickening is seen. The small bowel is normal in caliber. The appendix is normal. ABDOMINAL WALL: No significant hernia is appreciated. LYMPH NODES: Normal. VASCULAR: Unremarkable. PELVIC VISCERA: Unremarkable. OSSEOUS STRUCTURES: There are degenerative changes of the spine and hip joints. CT/CT abdomen pelvis wo con IMPRESSION: Very dilated colon and severe constipation. Probable mild cirrhotic changes of the liver. Enlarged spleen. Small right renal stones.
[2020-10-03 07:21] VITALS: BP 113/72; PULSE 92; RESP 18; TEMP 36.7; O2SAT 97; BMI 37.5
--- NOTE | 2020-10-03 09:33 | ED.ABDPAIN ---
HPI - Abdominal Pain General Chief Complaint: Abdominal Pain Stated Complaint: ABD PAIN Time Seen by Provider: 10/03/20 07:27 Source: patient Mode of arrival: ambulatory Limitations: no limitations History of Present Illness HPI narrative: 59 yo male with hx of IBS and suffers from constipation, denies abdominal surgeries, schizoaffective disorder - he reports he was constipated x 4 day so last night he decided to take almost an entire bottle of lactulose this morning he has had 2 very large BMs, passing gas but he cannot stand the stomach discomfort so he came to the ED MD elicited complaint: abdominal pain Pertinent past history: constipation Onset (ago): hour(s) (several ) Pain Consistency: intermittent Location: diffuse Severity: moderate Quality: cramping Radiation: none Migration to: no migration Exacerbating factors: nothing Relieving factors: bowel movement Context: other (took almost an entire bottle of lactulose) Associated symptoms: constipation Related Data Home Medications Medication Instructions Recorded Confirmed clozapine 100 mg tablet 100 mg PO DAILY tab 05/14/20 09/18/20 flash glucose scanning reader #1 ea 05/14/20 09/18/20 omega 3-xki-bws-fish oil 1,200 mg 1 cap PO BID cap 05/14/20 09/18/20 (144 mg-216 mg) capsule clozapine 300 mg PO BEDTIME 07/25/20 09/18/20 insulin degludec 200 unit/mL (3 38 unit SUBCUT DAILY ml 08/12/20 09/18/20 mL) subcutaneous pen hydroxyzine pamoate 50 mg capsule 50 mg PO TID 09/18/20 09/18/20 Previous Rx's Medication Instructions Recorded atorvastatin 10 mg tablet 10 mg PO DAILY 30 Days #30 tab 06/01/20 dulaglutide 1.5 mg/0.5 mL 1.5 mg SUBCUT QWEEK 30 Days #2.5 ml 06/01/20 subcutaneous pen injector pen needle, diabetic 29 gauge x #100 ea 06/15/2010/19 cholecalciferol (vitamin D3) 25 25 mcg PO DAILY #90 cap 06/18/20 mcg (1,000 unit) capsule methylcellulose (laxative) 500 mg 1,000 mg PO TID 30 Days #180 tab 08/13/20 tablet metformin 500 mg tablet 1,000 mg PO BID 90 Days #360 tab 08/18/20 sodium phosphates 19 gram-7 197 ml MA DAILY PRN 2 Days #394 ml 08/20/20 gram/197 mL enema gabapentin 300 mg capsule 300 mg PO BEDTIME 30 Days #30 cap 08/26/20 lactulose 20 gram/30 mL oral 20 g PO BID 30 Days #1800 ml 09/02/20 solution furosemide 20 mg tablet 20 mg PO DAILY #30 tab 09/22/20 ibuprofen 800 mg tablet 800 mg PO Q8H PRN 30 Days #90 tab 09/28/20 lubiprostone 8 mcg capsule 8 mcg PO BID 30 Days #60 cap 10/01/20 ondansetron 4 mg PO Q8H PRN #20 tab 10/03/20 Allergies Allergy/AdvReac Type Severity Reaction Status Date / Time No Known Allergies Allergy Verified 09/18/20 15:08 [No Known Allergies*] Review of Systems Review of Systems Constitutional : No Weight loss, No Fever, No Chills ENT/Mouth : No sore throat, No Rhinorrhea Eyes: No Swelling, No Redness Cardiovascular : No Chest Pain, No SOB, NoEdema Respiratory : No Cough, No Sputum, No Wheezing Gastrointestinal : no Nausea, no Vomiting, no Diarrhea, positive abdominal Pain, No Hematochezia, No Melena, pos constipation Genitourinary : No Dysuria, No Urinary Frequency, No Hematuria, No Urgency Musculoskeletal : No joint pain, No Myalgias, No Joint Swelling Skin : No Skin Lesions, No rash Neuro : No Weakness, No Numbness, No Dizziness, No Headache Psych : No Anxiety/Panic, No Depression Heme/Lymph: No Bruising, No Lymphadenopathy Endocrine : No Polyuria, No Polydipsia All other systems reviewed and are negative. Physical Exam Vital Signs: Vital Signs: Last Vital Signs Temp 97.8 F 10/03/20 11:46 Pulse 86 10/03/20 11:46 Resp 16 10/03/20 11:46 BP 112/75 10/03/20 11:46 Pulse Ox 98 10/03/20 11:46 Body Mass Index 37.5 Appearance: Alert. Oriented X3. No acute distress. Eyes: Pupils equal, round and reactive to light. ENT: Pharynx normal. Neck: Normal inspection. Neck supple. CVS: Normal heart rate and rhythm. Pulses normal. Respiratory: No respiratory distress. Breath sounds normal. Abdomen: Soft and distended, obese, mildly ttp diffusely Skin: Skin warm and dry. Normal skin color. Normal skin turgor. Extremities: No lower extremity edema. No calf ttp Neuro: Oriented X 3. No motor deficit. No sensory deficit. Course Course Course Narrative: reviewed with Dr. Randall CT scan try enema for relief, no obstruction - prior to enema the patient has had a few soft large bowel movements at this time stable for DC MDM - Abdominal Pain MDM Narrative Medical decision making narrative: 59 yo male with IBS and bouts of constipation was constipated x 4 days and last night he decided to take almost an entire bottle of lactulose he has been able to have BMs but he notes his stomach is cramping too much, he has only had 2 BMs this AM - will need labs, CT scan for obstruction but likely he has issues due to lactulose intake Lab Data Result diagrams: 10/03/20 11:20 10/03/20 11:20 Labs: Lab Results 10/03/20 10/03/20 10/03/20 Range/Units 10:40 11:19 11:20 WBC 7.5 (4.8-10.8) X10*3/uL RBC 4.50 L (4.60-5.80) X10*6/uL Hgb 13.7 L (14.0-18.0) g/dl Hct 38.5 L (42-52) % MCV 85.6 (80-98) fL MCH 30.4 (27.0-33.0) pg MCHC 35.6 (31.0-36.0) g/dl RDW 12.9 (11.0-16.0) % Plt Count 104 L (160-400) X10*3/uL MPV 10.8 (9.4-12.4) fL Immature Gran % (Auto) 0.4 (0.0-0.4) % Neut % (Auto) 81.2 H (45-73) % Lymph % (Auto) 12.4 L (20-40) % [place] % (Auto) 5.9 (2-11) % Eos % (Auto) 0.0 (0-4) % Baso % (Auto) 0.1 (0-2) % Lymph # (Auto) 0.9 L (1.2-4.9) X10*3/uL [place] # (Auto) 0.4 (0.1-1.2) X10*3/uL Eos # (Auto) 0.0 (0.0-0.4) X10*3/uL Baso # (Auto) 0.0 (0.0-0.2) X10*3/uL Abs Immat Gran (auto) 0.03 (0.00-0.03) X10*3/uL Absolute Neuts (auto) 6.1 (2.0-8.3) X10*3/uL Absolute Nucleated RBC 0.000 (0.0-0.012) X10*3/uL Nucleated RBC % (auto) 0.0 (0.0-0.2) /100WBC Hold Blue Top Sodium (135-145) mmol/L Potassium (3.3-5.1) mmol/L Chloride (96-108) mmol/L Carbon Dioxide (22-29) mmol/L Anion Gap (12-20) BUN (9-16) mg/dL Creatinine (0.5-1.4) mg/dL Estim Creat Clear Calc Estimated GFR POC Glucose 143 H (60-115) mg/dL Random Glucose (60-115) mg/dL Calcium (8.4-10.2) mg/dL Magnesium (1.6-2.6) mg/dL Total Bilirubin (0.0-1.0) mg/dL Direct Bilirubin (0.0-0.5) mg/dL AST (5-37) U/L ALT (0-40) U/L Alkaline Phosphatase (39-117) U/L Total Protein (6.5-8.0) g/dL Albumin (3.5-5.0) g/dL Lipase (8-78) U/L COVID-19 ([facility]) Negative (Negative) COVID-19 Clin Com See Note 10/03/20 10/03/20 Range/Units 11:20 11:20 WBC (4.8-10.8) X10*3/uL RBC (4.60-5.80) X10*6/uL Hgb (14.0-18.0) g/dl Hct (42-52) % MCV (80-98) fL MCH (27.0-33.0) pg MCHC (31.0-36.0) g/dl RDW (11.0-16.0) % Plt Count (160-400) X10*3/uL MPV (9.4-12.4) fL Immature Gran % (Auto) (0.0-0.4) % Neut % (Auto) (45-73) % Lymph % (Auto) (20-40) % [place] % (Auto) (2-11) % Eos % (Auto) (0-4) % Baso % (Auto) (0-2) % Lymph # (Auto) (1.2-4.9) X10*3/uL [place] # (Auto) (0.1-1.2) X10*3/uL Eos # (Auto) (0.0-0.4) X10*3/uL Baso # (Auto) (0.0-0.2) X10*3/uL Abs Immat Gran (auto) (0.00-0.03) X10*3/uL Absolute Neuts (auto) (2.0-8.3) X10*3/uL Absolute Nucleated RBC (0.0-0.012) X10*3/uL Nucleated RBC % (auto) (0.0-0.2) /100WBC Hold Blue Top SEE NOTE Sodium 140 (135-145) mmol/L Potassium 4.3 (3.3-5.1) mmol/L Chloride 108 (96-108) mmol/L Carbon Dioxide 20 L (22-29) mmol/L Anion Gap 16 (12-20) BUN 17 H (9-16) mg/dL Creatinine 1.14 (0.5-1.4) mg/dL Estim Creat Clear Calc 100.7 Estimated GFR > 60 POC Glucose (60-115) mg/dL Random Glucose 160 H (60-115) mg/dL Calcium 9.2 (8.4-10.2) mg/dL Magnesium 1.7 (1.6-2.6) mg/dL Total Bilirubin 0.6 (0.0-1.0) mg/dL Direct Bilirubin 0.2 (0.0-0.5) mg/dL AST 77 H (5-37) U/L ALT 151 H (0-40) U/L Alkaline Phosphatase 152 H (39-117) U/L Total Protein 7.1 (6.5-8.0) g/dL Albumin 4.3 (3.5-5.0) g/dL Lipase 18 (8-78) U/L COVID-19 ([facility]) (Negative) COVID-19 Clin Com Discharge Plan Discharge Clinical Impression: Constipation Qualifiers: Constipation type: other constipation type Qualified Code(s): K59.09 - Other constipation Patient Disposition: Home, Self-Care Instructions: Constipation (ED) Additional Instructions: return to ED for any worsening symptoms or concerns DO NOT TAKE ANY MORE LACTULOSE - YOU WILL HAVE BOWEL MOVEMENTS OVER THE NEXT 24 HOURS Prescriptions: New ondansetron 4 mg tablet,disintegrating 4 mg PO Q8H PRN (Reason: nausea and vomiting) Qty: 20 RF: 0 No Action Trulicity 1.5 mg/0.5 mL pen injector 1.5 mg subcut QWEEK 30 Days Qty: 2.5 RF: 4 (DME) pen needle, diabetic 29 gauge x 3/8 needle See Rx Instructions .ROUTE .MEDSUPPLY Qty: 100 RF: 0 cholecalciferol (vitamin D3) 25 mcg (1,000 unit) capsule 25 mcg PO DAILY Qty: 90 RF: 12 metformin 500 mg tablet 1,000 mg PO BID 90 Days Qty: 360 RF: 1 Fleet Enema Extra 19-7 gram/197 mL enema 197 ml MA DAILY PRN (Reason: constipation) 2 Days Qty: 394 RF: 0 gabapentin 300 mg capsule 300 mg PO BEDTIME 30 Days Qty: 30 RF: 2 lactulose 20 gram/30 mL solution 20 g PO BID 30 Days Qty: 1800 RF: 3 furosemide 20 mg tablet 20 mg PO DAILY Qty: 30 RF: 1 ibuprofen 800 mg tablet 800 mg PO Q8H PRN (Reason: pain) 30 Days Qty: 90 RF: 1 lubiprostone [Amitiza] 8 mcg capsule 8 mcg PO BID 30 Days Qty: 60 RF: 6 clozapine 100 mg tablet 300 mg PO BEDTIME RF: 0 Tresiba FlexTouch U-200 200 unit/mL (3 mL) insulin pen 38 unit subcut DAILY RF: 0 omega 7-eiy-vlr-fish oil [Fish Oil] 1,200 (144-216) mg capsule 1 cap PO BID RF: 0 (DME) FreeStyle Jody 14 Day Nicholson Misc See Rx Instructions .ROUTE .MEDSUPPLY Qty: 1 RF: 0 clozapine 100 mg tablet 100 mg PO DAILY RF: 0 hydroxyzine pamoate 50 mg capsule 50 mg PO TID RF: 0 atorvastatin [Lipitor] 10 mg tablet 10 mg PO DAILY 30 Days Qty: 30 RF: 6 Citrucel 500 mg tablet 1,000 mg PO TID 30 Days Qty: 180 RF: 3 Referrals: Luis Manuel Garcia MD [Primary Care Provider] - 2 days (if not better) Stand Alone Forms: Work/School Release [facility] Past Medical History Attestation statement: The following information was validated with the patient. Medical History Benign essential hypertension Chronic kidney disease (CKD), stage III (moderate) Diabetes type 2, uncontrolled Diabetic polyneuropathy associated with 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 mellitus Dyslipidemia Hospital discharge follow-up 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 mellitus Knee osteoarthritis Knee pain, bilateral prison (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 Melena Morbid obesity Obesity (BMI 30-39.9) Pain in both feet Pure hypercholesterolemia Right hand pain Schizo affective schizophrenia Schizoaffective disorder Type 2 diabetes mellitus with diabetic chronic kidney disease Surgical History History of repair of congenital cleft palate Hx of circumcision No pertinent past surgical history Family History Family History Father HTN (hypertension) Mother Diabetes Social History Social History Household Members: None Housing: Apartment Alcohol intake: current Alcohol intake frequency: holidays/special occasions only Alcohol type: beer Smoking Status: Never smoker Tobacco Type: Cigarette Second Hand Smoke Exposure: No Use of substances other than those prescribed or required for medical reasons: No Advance Directives: Yes Advance Directives Information Provided: Yes Advance Directives on File: No service: No Current occupational status: employed Current occupation: [employer]
[2020-10-03 10:44] LABS: Glucose, Whole Blood 143 mg/dL (60-115)
[2020-10-03 11:30] LABS: Hemoglobin 13.7 g/dl (14.0-18.0); Imm Gran Abs Auto 0.03 X10*3/uL (0.00-0.03); Imm Gran Pct Auto 0.4 % (0.0-0.4); MANUAL DIFF FLAG SCAN; PLT CLUMP 1; Red Cell Distribution Width 12.9 % (11.0-16.0); SCAN SMEAR FLAG 1
[2020-10-03 11:31] LABS: Basophils Percent Auto 0.1 % (0-2); Hematocrit 38.5 % (42-52); Lymphocytes Absolute Auto 0.9 X10*3/uL (1.2-4.9); Lymphocytes Percent Auto 12.4 % (20-40); Mean Corpuscular HGB Conc 35.6 g/dl (31.0-36.0); Mean Corpuscular Hemoglobin 30.4 pg (27.0-33.0); Mean Corpuscular Volume 85.6 fL (80-98); Mean Platelet Volume 10.8 fL (9.4-12.4); Monocytes Absolute Auto 0.4 X10*3/uL (0.1-1.2); Monocytes Percent Auto 5.9 % (2-11); Neutrophils Absolute Auto 6.1 X10*3/uL (2.0-8.3); Neutrophils Percent Auto 81.2 % (45-73); Platelet Count 104 X10*3/uL (160-400); White Blood Count 7.5 X10*3/uL (4.8-10.8)
--- NOTE | 2020-10-03 11:36 | PC.NURSE ---
pt has had 2 bowel movements since coming to the ED, states that they are liquid/diarrhea in consistency. MD aware.
[2020-10-03 11:45] LABS: COVID-19 Test Negative (Negative); IDNOW Serial# 9DD0AD1C
[2020-10-03 11:46] VITALS: BP 112/75; PULSE 86; RESP 16; TEMP 36.6; O2SAT 98
[2020-10-03 11:57] LABS: Alanine Aminotransferase 151 U/L (0-40); Albumin Level 4.3 g/dL (3.5-5.0); Alkaline Phosphatase 152 U/L (39-117); Anion Gap 16 (12-20); Aspartate Amino Transferase 77 U/L (5-37); Bilirubin Direct 0.2 mg/dL (0.0-0.5); Bilirubin Total 0.6 mg/dL (0.0-1.0); Blood Urea Nitrogen 17 mg/dL (9-16); Calcium 9.2 mg/dL (8.4-10.2); Carbon Dioxide 20 mmol/L (22-29); Chloride 108 mmol/L (96-108); Creatinine Clr Calc Pharmacy 100.7; Estimated Glomerular Filt Rate > 60; Glucose Random 160 mg/dL (60-115); Lipase 18 U/L (8-78); Magnesium 1.7 mg/dL (1.6-2.6); Potassium 4.3 mmol/L (3.3-5.1); Sodium 140 mmol/L (135-145); Total Protein 7.1 g/dL (6.5-8.0)
[2020-10-03 12:15] LABS: SLIDE REVIEW VERIFIED
== END 2020-10-03 12:38 | disposition home or self-care (01) ==
PROVIDERS: Emergency Provider Emergency Medicine; PCP Internal Medicine
DX: K59.09 Other constipation (principal); Z20.822 Contact with and (suspected) exposure to COVID-19; E11.22 Type 2 diabetes mellitus with diabetic chronic kidney disease; I12.9 Hypertensive chronic kidney disease with stage 1 through stage 4 chronic kidney disease, or unspecified chronic kidney disease; N18.30 Chronic kidney disease, stage 3 unspecified; K58.9 Irritable bowel syndrome, unspecified; F17.210 Nicotine dependence, cigarettes, uncomplicated; Z79.899 Other long term (current) drug therapy; Z79.4 Long term (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
CPT/HCPCS: 36415; 74176; 80048; 80076; 82947; 83690; 83735; 85025; 87635; 99284; 99285

== ENCOUNTER 2020-10-07 17:14 | Outpatient (REF) | payer OTHER, SELFPAY ==
[2020-10-07 18:02] LABS: Hemoglobin 13.6 g/dl (14.0-18.0); PLT CLUMP 1; Red Cell Distribution Width 12.8 % (11.0-16.0); SCAN SMEAR FLAG 1
[2020-10-07 18:03] LABS: Hematocrit 38.4 % (42-52); Imm Gran Abs Auto 0.03 X10*3/uL (0.00-0.03); Imm Gran Pct Auto 0.4 % (0.0-0.4); Lymphocytes Absolute Auto 1.6 X10*3/uL (1.2-4.9); Lymphocytes Percent Auto 22.8 % (20-40); Mean Corpuscular HGB Conc 35.4 g/dl (31.0-36.0); Mean Corpuscular Hemoglobin 29.9 pg (27.0-33.0); Mean Corpuscular Volume 84.4 fL (80-98); Mean Platelet Volume 10.7 fL (9.4-12.4); Monocytes Absolute Auto 0.4 X10*3/uL (0.1-1.2); Monocytes Percent Auto 5.4 % (2-11); Neutrophils Absolute Auto 4.9 X10*3/uL (2.0-8.3); Neutrophils Percent Auto 71.4 % (45-73); Platelet Count 120 X10*3/uL (160-400); Red Blood Count 4.55 X10*6/uL (4.60-5.80); White Blood Count 6.9 X10*3/uL (4.8-10.8)
[2020-10-07 18:09] LABS: MANUAL DIFF FLAG NO
[2020-10-07 18:19] LABS: Alanine Aminotransferase 72 U/L (0-40); Albumin Level 4.2 g/dL (3.5-5.0); Alkaline Phosphatase 132 U/L (39-117); Anion Gap 15 (12-20); Aspartate Amino Transferase 26 U/L (5-37); Bilirubin Total 0.5 mg/dL (0.0-1.0); Blood Urea Nitrogen 17 mg/dL (9-16); Calcium 9.2 mg/dL (8.4-10.2); Carbon Dioxide 25 mmol/L (22-29); Chloride 103 mmol/L (96-108); Cholesterol 138 mg/dL; Estimated Glomerular Filt Rate > 60; Glucose Fasting 171 mg/dL (60-99); HDL Cholesterol 31 mg/dL; LDL Cholesterol Calculated 64 mg/dl; Potassium 3.6 mmol/L (3.3-5.1); Sodium 139 mmol/L (135-145); Total Protein 6.8 g/dL (6.5-8.0); Triglycerides 215 mg/dL
[2020-10-07 18:39] LABS: TSH reflex Free T4 1.98 uIU/mL (0.32-4.0)
== END 2020-10-07 17:15 | disposition home or self-care (01) ==
LOC: HO.LABR 17:14
PROVIDERS: PCP Internal Medicine; Visit Provider Nurse Practitioner Psychiatric/Mental Health
DX: F25.0 Schizoaffective disorder, bipolar type (principal); E11.22 Type 2 diabetes mellitus with diabetic chronic kidney disease; I12.9 Hypertensive chronic kidney disease with stage 1 through stage 4 chronic kidney disease, or unspecified chronic kidney disease; N18.30 Chronic kidney disease, stage 3 unspecified; E78.00 Pure hypercholesterolemia, unspecified; E66.9 Obesity, unspecified; Z79.899 Other long term (current) drug therapy
CPT/HCPCS: 36415; 80053; 80061; 84443; 85025

== ENCOUNTER 2020-10-08 12:05 | Emergency (ER) | payer OTHER, SELFPAY ==
[2020-10-08 12:07] VITALS: BP 146/92; PULSE 90; RESP 18; TEMP 37.1; O2SAT 100; BMI 36.6
--- NOTE | 2020-10-08 14:17 | ED_ITS ---
HPI - Abdominal Pain General Chief Complaint: Abdominal Pain Stated Complaint: constipated,jaw pain,dental Time Seen by Provider: 10/08/20 13:32 Source: patient Mode of arrival: ambulatory Limitations: no limitations History of Present Illness HPI narrative: 59-year-old male with a past medical history of IBS and suffers from constipation denies any abdominal surgeries and history of schizoaffective disorder presenting to the ED with complaints of constipation and right lower dental pain for the past few days worse today. Patient was seen here on 10/03/2020 and had multiple episodes of bowel movements that day and was told not to take any laxative for 2 days. Although patient misunderstood and has not taken any of his constipation medications since he was seen here and reports he has not had a bowel movement since he was seen here. Patient has brought in all his constipation medications and all of them are un opened. Also reports that he was on amoxicillin for dental infection although finished a course and still is having dental pain and has a dental extraction scheduled for October 2020. MD elicited complaint: abdominal pain Pertinent past history: constipation Onset (ago): day(s) (Few days worse today) Pain Consistency: constant Location: diffuse Severity: mild Quality: cramping Radiation: none Migration to: no migration Exacerbating factors: nothing Relieving factors: bowel movement Associated symptoms: denies other symptoms Related Data Home Medications Medication Instructions Recorded Confirmed clozapine 100 mg tablet 100 mg PO DAILY tab 05/14/20 09/18/20 flash glucose scanning reader #1 ea 05/14/20 09/18/20 omega 3-uoy-vlr-fish oil 1,200 mg 1 cap PO BID cap 05/14/20 09/18/20 (144 mg-216 mg) capsule clozapine 300 mg PO BEDTIME 07/25/20 09/18/20 insulin degludec 200 unit/mL (3 38 unit SUBCUT DAILY ml 08/12/20 09/18/20 mL) subcutaneous pen hydroxyzine pamoate 50 mg capsule 50 mg PO TID 09/18/20 09/18/20 Previous Rx's Medication Instructions Recorded atorvastatin 10 mg tablet 10 mg PO DAILY 30 Days #30 tab 06/01/20 dulaglutide 1.5 mg/0.5 mL 1.5 mg SUBCUT QWEEK 30 Days #2.5 ml 06/01/20 subcutaneous pen injector pen needle, diabetic 29 gauge x #100 ea 06/15/20 3 cholecalciferol (vitamin D3) 25 25 mcg PO DAILY #90 cap 06/18/20 mcg (1,000 unit) capsule methylcellulose (laxative) 500 mg 1,000 mg PO TID 30 Days #180 tab 08/13/20 tablet metformin 500 mg tablet 1,000 mg PO BID 90 Days #360 tab 08/18/20 sodium phosphates 19 gram-7 197 ml CA DAILY PRN 2 Days #394 ml 08/20/20 gram/197 mL enema gabapentin 300 mg capsule 300 mg PO BEDTIME 30 Days #30 cap 08/26/20 lactulose 20 gram/30 mL oral 20 g PO BID 30 Days #1800 ml 09/02/20 solution furosemide 20 mg tablet 20 mg PO DAILY #30 tab 09/22/20 ibuprofen 800 mg tablet 800 mg PO Q8H PRN 30 Days #90 tab 09/28/20 lubiprostone 8 mcg capsule 8 mcg PO BID 30 Days #60 cap 10/01/20 ondansetron 4 mg PO Q8H PRN #20 tab 10/03/20 amoxicillin-pot clavulanate 1 tab PO BID 10 Days #20 tab 10/08/20 [Augmentin] Allergies Allergy/AdvReac Type Severity Reaction Status Date / Time No Known Allergies Allergy Verified 09/18/20 15:08 [No Known Allergies*] Review of Systems Review of Systems Constitutional : No Weight loss, No Fever, No Chills, No Night Sweats, No Fa tigue, NoMalaise ENT/Mouth: + Dental pain, No ear pain, No sore throat, No Difficulty swallowing Cardiovascular : No Chest Pain, No SOB, No Dyspnea on Exertion, No Orthopnea, NoEdema, No Palpitations Respiratory : No Cough, No Sputum, No Wheezing, No Dyspnea Gastrointestinal : + Abdominal pain, + Constipation, No Nausea, No Vomiting, No Diarrhea, No Hematochezia, No Melena Genitourinary : No irregular bleeding, No Dysuria, No Urinary Frequency, No Hematuria,No Urinary Incontinence, No Urgency, No Flank Pain Musculoskeletal : No joint pain, No Myalgias, No Joint Swelling Skin : No Skin Lesions, No rash Neuro : No Weakness, No Numbness, No Paresthesias, No Loss of Consciousness, NoDizziness, No Headache Psych : No Social Issues, Heme/Lymph: No Bruising, No Bleeding,No Lymphadenopathy Endocrine : No Polyuria, No Polydipsia, No Temperature Intolerance Yes all other systems are reviewed and are negative Physical Exam Vital Signs: Vital Signs: Last Vital Signs Temp 98.7 F 10/08/20 12:07 Pulse 90 10/08/20 12:07 Resp 18 10/08/20 12:07 BP 146/92 H 10/08/20 12:07 Pulse Ox 100 10/08/20 12:07 Body Mass Index 36.6 vital signs have been reviewed as normal and appeared to be correct. Blood pressure normal. Heart rate normal. Respiration rate normal. Temperature normal. Oxygen saturation normal. Appearance: Alert. Oriented X3. No acute distress. Head: Normal external exam. Normocephalic. Eyes: PERRLA. EOMI. Conjunctiva and sclera normal. Eyelids normal. ENT: Patient multiple dental caries and old dental fractures. No fluctuance/induration or foreign bodies noted. Pharynx normal. Uvula midline. Moist mucous membranes. No trismus noted. No drooling noted. No muffled voice noted. Neck: Normal inspection. Neck supple. FROM. No adenopathy. No meningeal signs. CVS: Normal heart rate and rhythm. Heart sound normal. No murmurs noted. Pulses normal throughout. Respiratory: No respiratory distress. Painless inspiration. Breath sounds normal. No wheezes/rales/rhonchi noted. Chest nontender. No accessory muscle usage noted or decreased air movement noted. Abdomen: Soft and nontender. Nondistended. No guarding. No rigidity. Bowel sounds normal in all 4 quadrants. No distention noted. No organomegaly noted. No visible injury noted. No rebound tenderness. Negative Rovsing sign. Negative obturator's sign. Negative psoas sign. Negative Reis sign. Back: No CVA tenderness. Full range of motion noted. Skin: Skin warm and dry. Normal skin color. Normal skin turgor. No rashes/lesions/lacerations noted. Extremities: Extremities exhibit normal range of motion. Extremities nontender. Neuro: Oriented X 3. No motor deficit. No sensory deficit. Reflexes normal. Course Course Course Narrative: 59-year-old male with IBS and intermittent episodes of constipation for the past 5 days presenting to the ED with complaints of constipation for 5 days although not taking any constipation medications that he was prescribed over the past 5 days. Also reports having dental pain despite finishing a course of amoxicillin. Denies any other complaints or concerns at this time. - on exam patient is hemodynamically stable. Not in any acute distress. Vital signs are stable within normal limits. Abdomen is soft and nontender nondistended. Not consistent with bowel obstruction. Patient with dental caries not consistent with dental abscess. No labs or imaging indicated at this time as patient had a full workup 5 days ago. - I explained to the patient that he needs to take his prescribed constipation medications and he reports that once he gets home he was start taking the laxatives again and all the other medications that he was prescribed. Will start on Augmentin for dental infection instructions to follow-up with oral surgeon for his dental extraction October/2020. And to return if any new or worsening symptoms. Patient understands agrees with this plan. MDM - Abdominal Pain Medical Records Attestation: I reviewed the patient's medical records. Discharge Plan Discharge Clinical Impression: Constipation, Dental caries, Dental infection Patient Disposition: Home, Self-Care Instructions: Constipation (ED), Toothache (ED) Additional Instructions: Please start taking all your previously prescribed laxatives and enemas TODAY for your constipation return if any new or worsening symptoms. Follow up with her primary care provider and your oral surgeon. Prescriptions: New amoxicillin-pot clavulanate [Augmentin] 875-125 mg tablet 1 tab PO BID 10 Days Qty: 20 RF: 0 No Action Trulicity 1.5 mg/0.5 mL pen injector 1.5 mg subcut QWEEK 30 Days Qty: 2.5 RF: 4 (DME) pen needle, diabetic 29 gauge x 3/8 needle See Rx Instructions .ROUTE .MEDSUPPLY Qty: 100 RF: 0 cholecalciferol (vitamin D3) 25 mcg (1,000 unit) capsule 25 mcg PO DAILY Qty: 90 RF: 12 metformin 500 mg tablet 1,000 mg PO BID 90 Days Qty: 360 RF: 1 Fleet Enema Extra 19-7 gram/197 mL enema 197 ml CA DAILY PRN (Reason: constipation) 2 Days Qty: 394 RF: 0 gabapentin 300 mg capsule 300 mg PO BEDTIME 30 Days Qty: 30 RF: 2 lactulose 20 gram/30 mL solution 20 g PO BID 30 Days Qty: 1800 RF: 3 furosemide 20 mg tablet 20 mg PO DAILY Qty: 30 RF: 1 ibuprofen 800 mg tablet 800 mg PO Q8H PRN (Reason: pain) 30 Days Qty: 90 RF: 1 lubiprostone [Amitiza] 8 mcg capsule 8 mcg PO BID 30 Days Qty: 60 RF: 6 clozapine 100 mg tablet 300 mg PO BEDTIME RF: 0 ondansetron 4 mg tablet,disintegrating 4 mg PO Q8H PRN (Reason: nausea and vomiting) Qty: 20 RF: 0 Tresiba FlexTouch U-200 200 unit/mL (3 mL) insulin pen 38 unit subcut DAILY RF: 0 omega 4-wnn-kmy-fish oil [Fish Oil] 1,200 (144-216) mg capsule 1 cap PO BID RF: 0 (DME) FreeStyle Jody 14 Day [place] Misc See Rx Instructions .ROUTE .MEDSUPPLY Qty: 1 RF: 0 clozapine 100 mg tablet 100 mg PO DAILY RF: 0 hydroxyzine pamoate 50 mg capsule 50 mg PO TID RF: 0 atorvastatin [Lipitor] 10 mg tablet 10 mg PO DAILY 30 Days Qty: 30 RF: 6 Citrucel 500 mg tablet 1,000 mg PO TID 30 Days Qty: 180 RF: 3 Referrals: Luis Manuel Garcia MD [Primary Care Provider] - 2 days Interventions: ED Discharge Assessment Last Done: 10/08/20 14:34 Print Language: [place] [facility] Past Medical History Attestation statement: The following information was validated with the patient. Medical History Benign essential hypertension Chronic kidney disease (CKD), stage III (moderate) Diabetes type 2, uncontrolled Diabetic polyneuropathy associated with 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 mellitus Dyslipidemia Hospital discharge follow-up 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 mellitus Knee osteoarthritis Knee pain, bilateral penitentiary (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 Melena Morbid obesity Obesity (BMI 30-39.9) Pain in both feet Pure hypercholesterolemia Right hand pain Schizo affective schizophrenia Schizoaffective disorder Type 2 diabetes mellitus with diabetic chronic kidney disease Surgical History History of repair of congenital cleft palate Hx of circumcision No pertinent past surgical history Family History Family History Father HTN (hypertension) Mother Diabetes Social History Social History Household Members: None Housing: Apartment Alcohol intake: never Smoking Status: Never smoker Tobacco Type: Cigarette Smoked in Last 30 Days: No Second Hand Smoke Exposure: No Use of substances other than those prescribed or required for medical reasons: No Advance Directives: Yes Advance Directives Information Provided: Yes Advance Directives on File: No service: No Current occupational status: employed Current occupation: [employer]
== END 2020-10-08 14:36 | disposition home or self-care (01) ==
PROVIDERS: Emergency Provider Emergency Medicine; PCP Internal Medicine
DX: K59.00 Constipation, unspecified (principal); K04.7 Periapical abscess without sinus; K02.9 Dental caries, unspecified; Z91.14 Patient's other noncompliance with medication regimen; I10 Essential (primary) hypertension; E11.22 Type 2 diabetes mellitus with diabetic chronic kidney disease; I12.9 Hypertensive chronic kidney disease with stage 1 through stage 4 chronic kidney disease, or unspecified chronic kidney disease; N18.30 Chronic kidney disease, stage 3 unspecified; Z79.4 Long term (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
CPT/HCPCS: 99283; 99284

== ENCOUNTER → 2020-10-16 09:26 | Outpatient (BNVA) | payer OTHER, SELFPAY | PROVIDERS: PCP Internal Medicine; Visit Provider Internal Medicine Endocrinology, Diabetes & Metabolism | DX: E11.22 Type 2 diabetes mellitus with diabetic chronic kidney disease (principal); N18.30 Chronic kidney disease, stage 3 unspecified; E11.42 Type 2 diabetes mellitus with diabetic polyneuropathy; E11.649 Type 2 diabetes mellitus with hypoglycemia without coma; Z79.4 Long term (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; E66.01 Morbid (severe) obesity due to excess calories; E78.00 Pure hypercholesterolemia, unspecified | CPT/HCPCS: 82947; 99212 ==

== ENCOUNTER → 2020-10-23 11:15 | Outpatient (BNVA) | payer OTHER, SELFPAY | PROVIDERS: PCP Internal Medicine; Visit Provider Dietitian, Registered ==

== ENCOUNTER 2020-10-31 10:45 | Emergency (ER) | payer OTHER, SELFPAY ==
--- NOTE | ~2020-10-31 | CT_ITS ---
EXAMINATION: CT ABDOMEN AND PELVIS WITHOUT CONTRAST CLINICAL INFORMATION: Constipation. COMPARISON: CT of the abdomen and pelvis without contrast dated 10/03/2020. TECHNIQUE: Multidetector volumetric imaging was performed from the superior aspect of the liver through the pubic symphysis. Sagittal and coronal reformatted images were obtained on the technologist's workstation. This CT examination was performed using dose optimization techniques as appropriate, variously including the following: *Automated exposure control *Adjustment of mA and/or kV according to patient size (this includes techniques or standardized protocols for targeted exams where dose is matched to indication/reason for exam; i.e. extremities or head) *Use of iterative reconstruction technique DLP: 959 mGy-cm FINDINGS: LUNG BASES: The visualized lung bases are unremarkable. LIVER, GALLBLADDER, AND BILIARY TREE: The liver is normal in size with slightly nodular contour and hypertrophy of the left lobe and caudate, unchanged presumed sequelae of chronic liver disease. No focal hepatic lesion. Gallbladder is normal. No intrahepatic or extra hepatic biliary ductal dilation. PANCREAS: Fatty infiltration, unchanged. SPLEEN: Enlarged measuring up to 15.6 cm medial condyle. ADRENAL GLANDS: Normal. KIDNEYS AND URETERS: The kidneys are normal in size, shape, and attenuation. No hydronephrosis, hydroureter, or calculi seen. No perinephric stranding. BLADDER: Normal. GASTROINTESTINAL TRACT: Small bowel is normal in caliber. There is moderate retained stool burden throughout the entirety of the colon. Dilatation of the transverse colon measuring up to 9 cm. The degree of transverse colon dilatation has mildly decreased relative to comparison 10/03/2020 examination which at the time demonstrated the large bowel measuring up to 10.2 cm. The appendix is unremarkable. ABDOMINAL WALL: No significant hernia is appreciated. LYMPH NODES: No pathologically enlarged lymph nodes. VASCULAR: Normal. PELVIC VISCERA: Prostate seminal vesicles are normal in caliber. OSSEOUS STRUCTURES: Multilevel degenerative changes of the thoracolumbar spine. Mild left hip arthrosis. CT/CT abdomen pelvis wo con IMPRESSION: Moderate retained stool burden throughout the colon. Dilatation of the transverse colon up to 9 cm. Normal caliber small bowel. Hepatic features suggestive of chronic liver disease. Splenomegaly.
[2020-10-31 11:04] VITALS: BP 115/77; PULSE 97; RESP 18; TEMP 37.2; O2SAT 97; BMI 37.4
[2020-10-31 12:45] VITALS: BP 112/73; PULSE 89; RESP 18; TEMP 37.2; O2SAT 96
--- NOTE | 2020-10-31 12:47 | ED_ITS ---
HPI - Abdominal Pain General Chief Complaint: Abdominal Pain Stated Complaint: ABD PAIN Time Seen by Provider: 10/31/20 11:05 Source: patient Mode of arrival: ambulatory Limitations: no limitations History of Present Illness HPI narrative: 59-year-old male with a past medical history of schizoaffective disorder, IBS who suffers from constipation denies any abdominal surgeries presenting to the ED with complaints of constipation and diffuse abdominal pain since this morning. Reports he had a good amount of a bowel movement this morning although still feels constipated. Reports he has been taking lactulose daily for his constipation which has been helping his symptoms mildly. Patient denies any fevers, chills, chest pain, shortness of breath, nausea/vomiting, dark or bloody stools, diarrhea or any other symptoms complaints or concerns at this time MD elicited complaint: abdominal pain Pertinent past history: constipation and other (IBS) Onset (ago): day(s) (Since this morning) Pain Consistency: constant Location: diffuse Severity: moderate Quality: cramping Radiation: none Migration to: no migration Exacerbating factors: nothing Relieving factors: nothing Associated symptoms: constipation Treatments prior to arrival: other (Lactulose) Related Data Home Medications Medication Instructions Recorded Confirmed clozapine 100 mg tablet 100 mg PO DAILY tab 05/14/20 10/16/20 flash glucose scanning reader #1 ea 05/14/20 10/16/20 omega 3-ygl-bzh-fish oil 1,200 mg 1 cap PO BID cap 05/14/20 10/16/20 (144 mg-216 mg) capsule clozapine 300 mg PO BEDTIME 07/25/20 10/16/20 hydroxyzine pamoate 50 mg capsule 50 mg PO TID 09/18/20 10/16/20 Previous Rx's Medication Instructions Recorded atorvastatin 10 mg tablet 10 mg PO DAILY 30 Days #30 tab 06/01/20 dulaglutide 1.5 mg/0.5 mL 1.5 mg SUBCUT QWEEK 30 Days #2.5 ml 06/01/20 subcutaneous pen injector cholecalciferol (vitamin D3) 25 25 mcg PO DAILY #90 cap 06/18/20 mcg (1,000 unit) capsule methylcellulose (laxative) 500 mg 1,000 mg PO TID 30 Days #180 tab 08/13/20 tablet metformin 500 mg tablet 1,000 mg PO BID 90 Days #360 tab 08/18/20 sodium phosphates 19 gram-[address] DAILY PRN 2 Days #394 ml 08/20/20 gram/197 mL enema gabapentin 300 mg capsule 300 mg PO BEDTIME 30 Days #30 cap 08/26/20 lactulose 20 gram/30 mL oral 20 g PO BID 30 Days #1800 ml 09/02/20 solution ibuprofen 800 mg tablet 800 mg PO Q8H PRN 30 Days #90 tab 09/28/20 lubiprostone 8 mcg capsule 8 mcg PO BID 30 Days #60 cap 10/01/20 ondansetron 4 mg PO Q8H PRN #20 tab 10/03/20 amoxicillin-pot clavulanate 1 tab PO BID 10 Days #20 tab 10/08/20 [Augmentin] insulin degludec 200 unit/mL (3 38 unit SUBCUT DAILY 90 Days #18 ml 10/16/20 mL) subcutaneous pen furosemide 20 mg tablet 20 mg PO DAILY #30 tab 10/29/20 pen needle, diabetic 29 gauge x See Rx Instructions .ROUTE 10/29/2008/15 DIRECTED #100 ea Allergies Allergy/AdvReac Type Severity Reaction Status Date / Time No Known Allergies Allergy Verified 09/18/20 15:08 [No Known Allergies*] Review of Systems Review of Systems Constitutional : No Weight loss, No Fever, No Chills, No Night Sweats, No Fatigue, NoMalaise ENT/Mouth: No ear pain, No sore throat, No Difficulty swallowing Cardiovascular : No Chest Pain, No SOB, No Dyspnea on Exertion, No Orthopnea, NoEdema, No Palpitations Respiratory : No Cough, No Sputum, No Wheezing, No Dyspnea Gastrointestinal : + Constipation, + Abdominal pain, No Nausea, No Vomiting, No Diarrhea, No Hematochezia, No Melena Genitourinary : No irregular bleeding, No Dysuria, No Urinary Frequency, No Hematuria,No Urinary Incontinence, No Urgency, No Flank Pain Musculoskeletal : No joint pain, No Myalgias, No Joint Swelling Skin : No Skin Lesions, No rash Neuro : No Weakness, No Numbness, No Paresthesias, No Loss of Consciousness, NoDizziness, No Headache Psych : No Social Issues, Heme/Lymph: No Bruising, No Bleeding,No Lymphadenopathy Endocrine : No Polyuria, No Polydipsia, No Temperature Intolerance Yes all other systems are reviewed and are negative Physical Exam Vital Signs: Vital Signs: Last Vital Signs Temp 98.9 F 10/31/20 12:45 Pulse 89 10/31/20 12:45 Resp 18 10/31/20 12:45 BP 112/73 10/31/20 12:45 Pulse Ox 96 10/31/20 12:45 Body Mass Index 37.4 vital signs have been reviewed as normal and appeared to be correct. Blood pressure normal. Heart rate normal. Respiration rate normal. Temperature normal. Oxygen saturation normal. Appearance: Alert. Oriented X3. No acute distress. Head: Normal external exam. Normocephalic. Eyes: PERRLA. EOMI. Conjunctiva and sclera normal. Eyelids normal. ENT: Pharynx normal. Uvula midline. Moist mucous membranes. Neck: Normal inspection. Neck supple. FROM. No adenopathy. No meningeal signs. CVS: Normal heart rate and rhythm. Heart sound normal. No murmurs noted. Pulses normal throughout. Respiratory: No respiratory distress. Painless inspiration. Breath sounds normal. No wheezes/rales/rhonchi noted. Chest nontender. No accessory muscle usage noted or decreased air movement noted. Abdomen: Soft and mild tenderness diffusely mild distension noted. No guarding. No rigidity. Bowel sounds normal in all 4 quadrants. No distention noted. No organomegaly noted. No visible injury noted. No rebound tenderness. Negative Rovsing sign. Negative obturator's sign. Negative psoas sign. Negative Reis sign. Back: No CVA tenderness. Full range of motion noted. Skin: Skin warm and dry. Normal skin color. Normal skin turgor. No rashes/lesions/lacerations noted. Extremities: Extremities exhibit normal range of motion. Extremities nontender. Neuro: Oriented X 3. No motor deficit. No sensory deficit. Reflexes normal. Course Course Course Narrative: 12:40pm - 59-year-old male with a past medical history of schizoaffective disorder, IBS who suffers from constipation denies any abdominal surgeries presenting to the ED with complaints of constipation and diffuse abdominal pain since this morning. - concern for bowel obstruction vs severe constipation - Plan: Labs, CT scan of abd/pelvis without IV contrast then re-evaluate. Reevaluation(s) Reevaluation #1: - patient mild anemia similar when compared to prior. BUN 18. Random glucose 143. ALT 69. Alkaline phosphate 128. Otherwise all other labs are within normal limits. - CT scan of abdomen and pelvis revealed moderate stool burden throughout the colon dilation of transverse colon up to 9 cm normal caliber small bowel. Hepatic features suggestive of chronic liver disease. Splenomegaly otherwise no other acute processes. - will attempt to order GoLYTELY so the patient can take home and referred to GI for colonoscopy and instructions to return if any new or worsening symptoms. Patient understands agrees with this plan. Time: 14:08 MDM - Abdominal Pain Differential Diagnosis Differential diagnosis: Likely constipation and small bowel obstruction Medical Records Attestation: I reviewed the patient's medical records. Lab Data Attestation: I reviewed the patient's lab results. Result diagrams: 10/31/20 12:52 10/31/20 12:52 Labs: Lab Results 10/31/20 10/31/20 10/31/20 Range/Units 12:52 12:52 12:52 WBC 7.3 (4.8-10.8) X10*3/uL RBC 4.40 L (4.60-5.80) X10*6/uL Hgb 13.1 L (14.0-18.0) g/dl Hct 37.5 L (42-52) % MCV 85.2 (80-98) fL MCH 29.8 (27.0-33.0) pg MCHC 34.9 (31.0-36.0) g/dl RDW 12.8 (11.0-16.0) % Plt Count 121 L (160-400) X10*3/uL MPV 10.6 (9.4-12.4) fL Immature Gran % (Auto) 0.4 (0.0-0.4) % Neut % (Auto) 72.9 (45-73) % Lymph % (Auto) 20.0 (20-40) % [place] % (Auto) 6.7 (2-11) % Eos % (Auto) 0.0 (0-4) % Baso % (Auto) 0.0 (0-2) % Lymph # (Auto) 1.5 (1.2-4.9) X10*3/uL [place] # (Auto) 0.5 (0.1-1.2) X10*3/uL Eos # (Auto) 0.0 (0.0-0.4) X10*3/uL Baso # (Auto) 0.0 (0.0-0.2) X10*3/uL Abs Immat Gran (auto) 0.03 (0.00-0.03) X10*3/uL Absolute Neuts (auto) 5.3 (2.0-8.3) X10*3/uL Absolute Nucleated RBC 0.000 (0.0-0.012) X10*3/uL Nucleated RBC % (auto) 0.0 (0.0-0.2) /100WBC PT 13.1 H (10.8-13.0) SEC INR 1.1 (0.9-1.1) Sodium 140 (135-145) mmol/L Potassium 4.0 (3.3-5.1) mmol/L Chloride 106 (96-108) mmol/L Carbon Dioxide 25 (22-29) mmol/L Anion Gap 13 (12-20) BUN 18 H (9-16) mg/dL Creatinine 1.26 (0.5-1.4) mg/dL Estim Creat Clear Calc 89.9 Estimated GFR 59 Random Glucose 143 H (60-115) mg/dL Calcium 9.3 (8.4-10.2) mg/dL Magnesium 1.7 (1.6-2.6) mg/dL Total Bilirubin 0.5 (0.0-1.0) mg/dL Direct Bilirubin 0.2 (0.0-0.5) mg/dL AST 33 (5-37) U/L ALT 69 H (0-40) U/L Alkaline Phosphatase 128 H (39-117) U/L Total Protein 6.8 (6.5-8.0) g/dL Albumin 4.3 (3.5-5.0) g/dL Lipase 18 (8-78) U/L Imaging Data CT scan of abdomen and pelvis without IV contrast: Attestation: I personally reviewed and interpreted this imaging study as follows: Radiologist's impression: FINDINGS: LUNG BASES: The visualized lung bases are unremarkable. LIVER, GALLBLADDER, AND BILIARY TREE: The liver is normal in size with slightly nodular contour and hypertrophy of the left lobe and caudate, unchanged presumed sequelae of chronic liver disease. No focal hepatic lesion. Gallbladder is normal. No intrahepatic or extra hepatic biliary ductal dilation. PANCREAS: Fatty infiltration, unchanged. SPLEEN: Enlarged measuring up to 15.6 cm medial condyle. ADRENAL GLANDS: Normal. KIDNEYS AND URETERS: The kidneys are normal in size, shape, and attenuation. No hydronephrosis, hydroureter, or calculi seen. No perinephric stranding. BLADDER: Normal. GASTROINTESTINAL TRACT: Small bowel is normal in caliber. There is moderate retained stool burden throughout the entirety of the colon. Dilatation of the transverse colon measuring up to 9 cm. The degree of transverse colon dilatation has mildly decreased relative to comparison 10/03/2020 examination which at the time demonstrated the large bowel measuring up to 10.2 cm. The appendix is unremarkable. ABDOMINAL WALL: No significant hernia is appreciated. LYMPH NODES: No pathologically enlarged lymph nodes. VASCULAR: Normal. PELVIC VISCERA: Prostate seminal vesicles are normal in caliber. OSSEOUS STRUCTURES: Multilevel degenerative changes of the thoracolumbar spine. Mild left hip arthrosis. CT/CT abdomen pelvis wo con IMPRESSION: Moderate retained stool burden throughout the colon. Dilatation of the transverse colon up to 9 cm. Normal caliber small bowel. Hepatic features suggestive of chronic liver disease. Splenomegaly. Discharge Plan Discharge Clinical Impression: Constipation Patient Disposition: Home, Self-Care Instructions: Constipation (ED), High Fiber Diet (ED) Prescriptions: No Action Trulicity 1.5 mg/0.5 mL pen injector 1.5 mg subcut QWEEK 30 Days Qty: 2.5 RF: 4 cholecalciferol (vitamin D3) 25 mcg (1,000 unit) capsule 25 mcg PO DAILY Qty: 90 RF: 12 metformin 500 mg tablet 1,000 mg PO BID 90 Days Qty: 360 RF: 1 Fleet Enema Extra 19-7 gram/197 mL enema [address] DAILY PRN (Reason: constipation) 2 Days Qty: 394 RF: 0 gabapentin 300 mg capsule 300 mg PO BEDTIME 30 Days Qty: 30 RF: 2 lactulose 20 gram/30 mL solution 20 g PO BID 30 Days Qty: 1800 RF: 3 ibuprofen 800 mg tablet 800 mg PO Q8H PRN (Reason: pain) 30 Days Qty: 90 RF: 1 lubiprostone [Amitiza] 8 mcg capsule 8 mcg PO BID 30 Days Qty: 60 RF: 6 furosemide 20 mg tablet 20 mg PO DAILY Qty: 30 RF: 2 pen needle, diabetic [BD Ultra-Fine Orig Pen Needle] 29 gauge x 1/2 needle See Rx Instructions .ROUTE DIRECTED Qty: 100 RF: 3 amoxicillin-pot clavulanate [Augmentin] 875-125 mg tablet 1 tab PO BID 10 Days Qty: 20 RF: 0 clozapine 100 mg tablet 300 mg PO BEDTIME RF: 0 ondansetron 4 mg tablet,disintegrating 4 mg PO Q8H PRN (Reason: nausea and vomiting) Qty: 20 RF: 0 omega 9-ehm-wfg-fish oil [Fish Oil] 1,200 (144-216) mg capsule 1 cap PO BID RF: 0 (DME) FreeStyle Jody 14 Day [place] Misc See Rx Instructions .ROUTE .MEDSUPPLY Qty: 1 RF: 0 clozapine 100 mg tablet 100 mg PO DAILY RF: 0 hydroxyzine pamoate 50 mg capsule 50 mg PO TID RF: 0 Tresiba FlexTouch U-200 200 unit/mL (3 mL) insulin pen 38 unit subcut DAILY 90 Days Qty: 18 RF: 1 atorvastatin [Lipitor] 10 mg tablet 10 mg PO DAILY 30 Days Qty: 30 RF: 6 Citrucel 500 mg tablet 1,000 mg PO TID 30 Days Qty: 180 RF: 3 Referrals: Oliver Santiago MD [Physician] - 2 days (Call Monday to make a follow-up appointment within the next few weeks for colonoscopy and further evaluation treatment of your constipation) Print Language: Trin[place] [facility] Past Medical History Attestation statement: The following information was validated with the patient. 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 Melena Morbid obesity Obesity (BMI 30-39.9) Pain in both feet Pure hypercholesterolemia Right hand pain Schizo affective schizophrenia Schizoaffective disorder Type 2 diabetes mellitus with diabetic chronic kidney disease Surgical History History of repair of congenital cleft palate Hx of circumcision No pertinent past surgical history Family History Family History Father HTN (hypertension) Mother Diabetes Social History Social History Household Members: None Housing: Apartment Alcohol intake: never Smoking Status: Never smoker Tobacco Type: Cigarette Second Hand Smoke Exposure: No Use of substances other than those prescribed or required for medical reasons: No Advance Directives: No Advance Directives Information Provided: No service: No Current occupational status: employed Current occupation: [employer]
[2020-10-31 13:00] LABS: Hematocrit 37.5 % (42-52); Imm Gran Abs Auto 0.03 X10*3/uL (0.00-0.03); Imm Gran Pct Auto 0.4 % (0.0-0.4); Mean Corpuscular Volume 85.2 fL (80-98)
[2020-10-31 13:01] LABS: Hemoglobin 13.1 g/dl (14.0-18.0); Lymphocytes Absolute Auto 1.5 X10*3/uL (1.2-4.9); Mean Corpuscular HGB Conc 34.9 g/dl (31.0-36.0); Mean Corpuscular Hemoglobin 29.8 pg (27.0-33.0); Mean Platelet Volume 10.6 fL (9.4-12.4); Monocytes Absolute Auto 0.5 X10*3/uL (0.1-1.2); Monocytes Percent Auto 6.7 % (2-11); Neutrophils Absolute Auto 5.3 X10*3/uL (2.0-8.3); Neutrophils Percent Auto 72.9 % (45-73); Platelet Count 121 X10*3/uL (160-400); Red Cell Distribution Width 12.8 % (11.0-16.0); White Blood Count 7.3 X10*3/uL (4.8-10.8)
[2020-10-31 13:02] LABS: MANUAL DIFF FLAG NO
[2020-10-31 13:08] LABS: INTERNATIONAL NORM RATIO 1.1 (0.9-1.1); Prothrombin Time 13.1 SEC (10.8-13.0)
[2020-10-31 13:29] LABS: Alanine Aminotransferase 69 U/L (0-40); Albumin Level 4.3 g/dL (3.5-5.0); Alkaline Phosphatase 128 U/L (39-117); Anion Gap 13 (12-20); Aspartate Amino Transferase 33 U/L (5-37); Bilirubin Direct 0.2 mg/dL (0.0-0.5); Bilirubin Total 0.5 mg/dL (0.0-1.0); Blood Urea Nitrogen 18 mg/dL (9-16); Calcium 9.3 mg/dL (8.4-10.2); Carbon Dioxide 25 mmol/L (22-29); Chloride 106 mmol/L (96-108); Creatinine Clr Calc Pharmacy 89.9; Estimated Glomerular Filt Rate 59; Glucose Random 143 mg/dL (60-115); Lipase 18 U/L (8-78); Magnesium 1.7 mg/dL (1.6-2.6); Sodium 140 mmol/L (135-145); Total Protein 6.8 g/dL (6.5-8.0)
[2020-10-31] MEDS: PEG 3350/Na Sulf,Bicarb,Cl/KCL 4,000 ML SOLN.RECON 240 ML PO (15:47)
== END 2020-10-31 16:09 | disposition home or self-care (01) ==
PROVIDERS: Physician Assistant Medical; Emergency Provider Emergency Medicine; PCP Internal Medicine
DX: K59.00 Constipation, unspecified (principal); F20.9 Schizophrenia, unspecified; Z79.899 Other long term (current) drug therapy
CPT/HCPCS: 36415; 74176; 80048; 80076; 83690; 83735; 85025; 85610; 99284

== ENCOUNTER 2020-11-02 08:49 | Outpatient (REF) | payer OTHER, SELFPAY ==
[2020-11-02 09:22] LABS: Neut%MD 64.4 %; Neutrophils Absolute Auto 4.1 X10*3/uL (2.0-8.3); WBCANC 6.3 X10*3/uL; White Blood Count 6.3 X10*3/uL (4.8-10.8)
== END 2020-11-02 08:50 | disposition home or self-care (01) ==
LOC: HO.LABR 08:49
PROVIDERS: PCP Internal Medicine; Visit Provider Nurse Practitioner Psychiatric/Mental Health
DX: F25.0 Schizoaffective disorder, bipolar type (principal); Z79.899 Other long term (current) drug therapy
CPT/HCPCS: 36415; 85048

== ENCOUNTER → 2020-11-05 08:52 | Outpatient (BNVA) | payer OTHER, SELFPAY | PROVIDERS: PCP Internal Medicine; Visit Provider Nurse Practitioner | DX: Z13.89 Encounter for screening for other disorder (principal) | CPT/HCPCS: Q3014 ==

== ENCOUNTER 2020-12-01 13:59 | Outpatient (REF) | payer OTHER, SELFPAY ==
[2020-12-01 15:13] LABS: Neut%MD 73.2 %; Neutrophils Absolute Auto 5.2 X10*3/uL (2.0-8.3); WBCANC 7.1 X10*3/uL; White Blood Count 7.1 X10*3/uL (4.8-10.8)
== END 2020-12-01 14:00 | disposition home or self-care (01) ==
LOC: HO.LABR 13:59
PROVIDERS: PCP Internal Medicine; Visit Provider Nurse Practitioner Psychiatric/Mental Health
DX: F25.0 Schizoaffective disorder, bipolar type (principal); Z51.81 Encounter for therapeutic drug level monitoring; Z79.899 Other long term (current) drug therapy
CPT/HCPCS: 36415; 85048

== ENCOUNTER 2020-12-30 10:16 | Outpatient (REF) | payer OTHER, SELFPAY ==
[2020-12-30 11:32] LABS: MANUAL DIFF FLAG NO
[2020-12-30 11:54] LABS: Hematocrit 42.5 % (42-52); Hemoglobin 14.9 g/dl (14.0-18.0); Imm Gran Abs Auto 0.04 X10*3/uL (0.00-0.03); Imm Gran Pct Auto 0.6 % (0.0-0.4); Lymphocytes Absolute Auto 1.2 X10*3/uL (1.2-4.9); Lymphocytes Percent Auto 19.1 % (20-40); Mean Corpuscular HGB Conc 35.1 g/dl (31.0-36.0); Mean Corpuscular Hemoglobin 29.4 pg (27.0-33.0); Mean Platelet Volume 10.7 fL (9.4-12.4); Monocytes Absolute Auto 0.5 X10*3/uL (0.1-1.2); Monocytes Percent Auto 8.3 % (2-11); Neutrophils Absolute Auto 4.5 X10*3/uL (2.0-8.3); Platelet Count 131 X10*3/uL (160-400); Red Blood Count 5.06 X10*6/uL (4.60-5.80); Red Cell Distribution Width 12.6 % (11.0-16.0); White Blood Count 6.3 X10*3/uL (4.8-10.8)
== END 2020-12-30 10:17 | disposition home or self-care (01) ==
LOC: HO.LABR 10:16
PROVIDERS: PCP Internal Medicine; Visit Provider Psychiatry & Neurology Psychiatry
DX: Z79.899 Other long term (current) drug therapy (principal)
CPT/HCPCS: 36415; 85025

== ENCOUNTER 2021-01-15 19:26 | Inpatient (IN) | payer OTHER, SELFPAY ==
--- NOTE | ~2021-01-15 | XR_ITS ---
EXAMINATION: XR CHEST CLINICAL INFORMATION: Reevaluation left lung base COMPARISON: 01/15/2021 TECHNIQUE: 2 views of the chest were obtained. FINDINGS: Lung volumes are symmetric. There are minimal streaky bibasilar opacities favor atelectasis. Mid to upper lungs appear clear. No evidence of pneumothorax, pleural effusion, or pulmonary edema. The cardiomediastinal contour is unremarkable. No acute osseous findings are seen. XR/XR chest 2V IMPRESSION: Minimal streaky bibasilar opacities favoring atelectasis.
--- NOTE | ~2021-01-15 | CT_ITS ---
EXAMINATION: CT ABDOMEN AND PELVIS WITHOUT CONTRAST CLINICAL INFORMATION: Abdominal pain and hypotension COMPARISON: CT abdomen pelvis 10/31/2020 and 10/03/2020 TECHNIQUE: Multidetector volumetric imaging was performed from the superior aspect of the liver through the pubic symphysis. Sagittal and coronal reformatted images were obtained on the technologist's workstation. This CT examination was performed using dose optimization techniques as appropriate, variously including the following: *Automated exposure control *Adjustment of mA and/or kV according to patient size (this includes techniques or standardized protocols for targeted exams where dose is matched to indication/reason for exam; i.e. extremities or head) *Use of iterative reconstruction technique DLP: 1241 mGy-cm FINDINGS: LUNG BASES: The visualized lung bases are unremarkable. LIVER, GALLBLADDER, AND BILIARY TREE: The liver is normal in size and shape but demonstrates decreased attenuation relative to the spleen consistent with hepatic steatosis.. No focal hepatic lesion or biliary ductal dilatation is present. The gallbladder is unremarkable with no evidence of radiopaque gallstones, gallbladder wall thickening, or obvious pericholecystic inflammatory changes. PANCREAS: There is marked fatty atrophy of the pancreas. SPLEEN: There is splenomegaly with the spleen measuring 16.6 cm in greatest cephalocaudad dimension. ADRENAL GLANDS: Unremarkable. KIDNEYS AND URETERS: The kidneys are normal in size, shape, and attenuation. A small punctate 1 to 2 mm calcification noted in the lower pole of the right kidney along with a small 8 mm exophytic hyperdense cortical mass at the left lower pole consistent with a hyperattenuating cyst. (see pearce image). No suspicious renal masses. No hydronephrosis, hydroureter, or other calculi seen. No perinephric stranding. BLADDER: Unremarkable. GASTROINTESTINAL TRACT: A large stool burden is present in the colon. Compared with the prior study, colonic dilatation involving the transverse colon has resolved but there is now moderate dilatation of small bowel in the mid abdomen with loops up to 4.6 cm in greatest diameter. A discrete transition zone or obstructing lesion is not seen, but the transition appears to begin in the left mid abdomen just beneath the anterior abdominal wall.. ABDOMINAL WALL: No significant hernia is appreciated. LYMPH NODES: No retroperitoneal lymphadenopathy is seen. VASCULAR: The inferior vena cava is collapsed and slitlike indicative of hypovolemia/volume loss. PELVIC VISCERA: Prostate and seminal vesicles appear normal OSSEOUS STRUCTURES: Degenerative changes noted throughout the spine especially in the lower thoracic and upper lumbar regions. CT/CT abdomen pelvis wo con IMPRESSION: 1. Patient appears hypovolemic with slitlike IVC without evidence of intra-abdominal or pelvic hemorrhage. 2. Large stool burden throughout the colon but colonic dilatation is improved when compared to the prior study. There is now dilatation of small bowel present without a clearcut obstructing lesion or transition zone. Early small bowel obstruction versus ileus.
--- NOTE | ~2021-01-15 | US_ITS ---
EXAMINATION: US ABDOMEN LIMITED CLINICAL INFORMATION: Right upper quadrant pain. Epigastric pain.. COMPARISON: CT scan abdomen pelvis 01/15/2021 TECHNIQUE: Real-time imaging of the right upper quadrant abdominal viscera., Doppler exam used. FINDINGS: Exam limited by body habitus. Patient had difficulty holding breath. PANCREAS: Obscured by bowel gas LIVER: Diffuse increased echogenicity of liver parenchyma suggesting fatty change. No focal liver lesion or intrahepatic bile duct dilatation. GALLBLADDER: Normal. The gallbladder is physiologically distended without evidence of stones, sludge, polyps, wall thickening or pericholecystic fluid. There is positive ultrasound Reis's sign. COMMON BILE DUCT: Normal in caliber measuring 0.35 cm in diameter. RIGHT KIDNEY: Normal. No hydronephrosis. No renal calculi or focal parenchymal lesions. The kidney measures 11 cm in maximum dimension. FREE FLUID: None. US/US abdomen limited IMPRESSION: 1. Diffuse increased echogenicity of liver parenchyma suggesting fatty change. 2. No gallstone or acute change of the gallbladder. There is no bile duct dilatation. There is positive ultrasound Reis's sign.
--- NOTE | ~2021-01-15 | XR_ITS ---
EXAMINATION: XR CHEST CLINICAL INFORMATION: Cough COMPARISON: 07/24/[address] scan performed same day TECHNIQUE: Frontal view of the chest was obtained. FINDINGS: The lungs are hypoinflated compared to the prior study. There is increased patchy density present in the left costophrenic angle which is suggestive of an infiltrate/atelectasis. A small effusion cannot be excluded. However, on the CT scan performed contemporaneously, only atelectasis is present. XR/XR chest 1V IMPRESSION: Left lower lobe atelectasis. When patient is stable, and inspiratory PA and lateral chest radiograph would be useful for further evaluation.
[2021-01-15 20:58] VITALS: BP 70/42; PULSE 95; RESP 18; TEMP 36.6; O2SAT 95; BMI 36.6
--- NOTE | 2021-01-15 21:06 | ECG_ITS ---
Test Reason : ABD PAIN Blood Pressure : / mmHG Vent. Rate : 088 BPM Atrial Rate : 088 BPM P-R Int : 146 ms QRS Dur : 088 ms QT Int : 392 ms P-R-T Axes : 051 010 020 degrees QTc Int : 474 ms Normal sinus rhythm Possible Left atrial enlargement Cannot rule out Anterior infarct , age undetermined Abnormal ECG When compared with ECG of 24-JUL-2020 20:06, Minimal criteria for Anterior infarct are now Present Referred By: Kandi Narayan Electronically Signed By:Dionisio Fonseca
--- NOTE | 2021-01-15 21:07 | PC.NURSE ---
at bedside for primary eval.
[2021-01-15 21:14] LABS: Glucose, Whole Blood 174 mg/dL (60-115)
--- NOTE | 2021-01-15 21:14 | PC.NURSE ---
Off to CT on hospital bed.
--- NOTE | 2021-01-15 21:26 | ED.ABDPAIN ---
HPI - Abdominal Pain General Chief Complaint: Abdominal Pain Stated Complaint: abdominal pain Time Seen by Provider: 01/15/21 21:06 Source: patient Mode of arrival: ambulatory History of Present Illness HPI narrative: This is a 60-year-old male who presents with complaints of having been constipated and then taking lactulose with several loose nonbloody bowel movements but then states today he began having abdominal pain that worsened throughout the day and is associated with nausea but no vomiting and denies any fever, chills and is no longer having any bowel movements with minimal passing of flatus. In addition, patient reports loss of hearing and feeling weak starting today. He denies any prior surgical history and the abdomen. Related Data Home Medications Medication Instructions Recorded Confirmed clozapine 100 mg tablet 100 mg PO DAILY tab 05/14/20 01/15/21 omega 0-ilb-cpa-fish oil 1,200 mg 1 cap PO BID cap 05/14/20 01/15/21 (144 mg-216 mg) capsule clozapine 300 mg PO BEDTIME 07/25/20 01/15/21 hydroxyzine pamoate 50 mg capsule 50 mg PO TID PRN 09/18/20 01/15/21 lactulose 10 gram/15 mL oral 30 ml PO BID ml 01/07/21 01/15/21 solution Trulicity 1.5 mg SUBCUT TH 01/15/21 01/15/21 atorvastatin [Lipitor] 10 mg PO BEDTIME 01/15/21 01/15/21 benztropine 1 tab PO BID 01/15/21 01/15/21 linaclotide [Linzess] 145 mcg PO DAILY 01/15/21 01/15/21 Previous Rx's Medication Instructions Recorded cholecalciferol (vitamin D3) 25 25 mcg PO DAILY #90 cap 06/18/20 mcg (1,000 unit) capsule metformin 500 mg tablet 1,000 mg PO BID 90 Days #360 tab 08/18/20 ibuprofen 800 mg tablet 800 mg PO Q8H PRN 30 Days #90 tab 09/28/20 insulin degludec 200 unit/mL (3 38 unit SUBCUT DAILY 90 Days #18 ml 10/16/20 mL) subcutaneous pen furosemide 20 mg tablet 20 mg PO DAILY #30 tab 10/29/20 gabapentin 300 mg capsule 300 mg PO BEDTIME #30 cap 11/20/20 Allergies Allergy/AdvReac Type Severity Reaction Status Date / Time No Known Allergies Allergy Verified 12/18/20 12:46 [No Known Allergies*] Review of Systems Review of Systems Pertinent positives and negatives as stated in HPI 10 point review of systems otherwise negative. Physical Exam Vital Signs: Vital Signs: Last Vital Signs Temp 97.8 F 01/15/21 20:58 Pulse 87 01/15/21 23:54 Resp 20 01/15/21 23:54 BP 115/82 01/15/21 23:54 Pulse Ox 96 01/15/21 22:01 Body Mass Index 36.6 VITAL SIGNS: Reviewed. GENERAL: Well developed, well nourished, in no acute distress. HEAD: Normocephalic/atraumatic EYES: PERRLA, EOMI OROPHARYNX: no oral lesions noted, posterior pharynx clear NECK: Supple, no adenopathy LUNGS: Normal breath sounds. No adventitious sounds or accessory muscle use. SpO2<95> CARDIOVASCULAR: Regular rate and rhythm without noted murmurs ABDOMEN: Obese, Soft, diffuse tenderness without rebound, non-distended with bowel sounds. SKIN: Inspection of the skin reveals no rashes, but pale and diaphoretic NEUROLOGIC: Alert and oriented x 4. Strength and sensation to light touch were grossly intact x 4. Course Course Course Narrative: With history and clinical presentation most concerning for possible perforation, could be SBO, diverticulitis, functional obstruction secondary to constipation. Review of all investigations consistent with a combination of dehydration as well as ileus/SBO without discrete transition point identified. On re-evaluation patient states that he feels better and has received 4 L of IV fluid. Review ultrasound was negative for evidence of cholecystitis and leukocytosis at this time is felt to be reactive. Chest x-ray negative for evidence to suggest infiltrate and instead most consistent with atelectasis. Patient will be admitted to the inpatient hospitalist team for further management. Reevaluation(s) Reevaluation #1: I discussed this case with Surgical Services who recommends GI consult for evidence of chronic slow transit stool and recommends enemas to decrease stool load. Time: 00:41 MDM - Abdominal Pain Lab Data Result diagrams: 01/15/21 21:47 01/15/21 21:47 Labs: Lab Results 01/15/21 01/15/21 01/15/21 Range/Units 21:11 21:47 21:47 WBC 13.2 H (4.8-10.8) X10*3/uL RBC 5.00 (4.60-5.80) X10*6/uL Hgb 15.0 (14.0-18.0) g/dl Hct 42.0 (42-52) % MCV 84.0 (80-98) fL MCH 30.0 (27.0-33.0) pg MCHC 35.7 (31.0-36.0) g/dl RDW 12.8 (11.0-16.0) % Plt Count 131 L (160-400) X10*3/uL MPV 11.0 (9.4-12.4) fL Immature Gran % (Auto) 0.3 (0.0-0.4) % Neut % (Auto) 86.0 H (45-73) % Lymph % (Auto) 6.3 L (20-40) % [place] % (Auto) 7.3 (2-11) % Eos % (Auto) 0.0 (0-4) % Baso % (Auto) 0.1 (0-2) % Lymph # (Auto) 0.8 L (1.2-4.9) X10*3/uL [place] # (Auto) 1.0 (0.1-1.2) X10*3/uL Eos # (Auto) 0.0 (0.0-0.4) X10*3/uL Baso # (Auto) 0.0 (0.0-0.2) X10*3/uL Abs Immat Gran (auto) 0.04 H (0.00-0.03) X10*3/uL Absolute Neuts (auto) 11.4 H (2.0-8.3) X10*3/uL Absolute Nucleated RBC 0.000 (0.0-0.012) X10*3/uL Nucleated RBC % (auto) 0.0 (0.0-0.2) /100WBC Sodium 142 (135-145) mmol/L Potassium 3.9 (3.3-5.1) mmol/L Chloride 108 (96-108) mmol/L Carbon Dioxide 20 L (22-29) mmol/L Anion Gap 18 (12-20) BUN 25 H (9-16) mg/dL Creatinine 1.85 H (0.5-1.4) mg/dL Estim Creat Clear Calc 60.5 Estimated GFR 38 POC Glucose 174 H (60-115) mg/dL Random Glucose 177 H (60-115) mg/dL Lactic Acid (0.5-2.0) mmol/L Calcium 9.5 (8.4-10.2) mg/dL Magnesium 1.7 (1.6-2.6) mg/dL Total Bilirubin 0.5 (0.0-1.0) mg/dL AST 33 (5-37) U/L ALT 80 H (0-40) U/L Alkaline Phosphatase 163 H D (39-117) U/L Troponin I High Sens (<3.5-35.0) ng/L B-Natriuretic Peptide (<100) pg/mL Total Protein 7.4 (6.5-8.0) g/dL Albumin 4.4 (3.5-5.0) g/dL Lipase 25 (8-78) U/L Urine Color Urine Appearance Urine pH (5.0-8.0) Ur Specific [place] (1.005-1.025) Urine Protein (NEG-TRACE) MG/DL Urine Glucose (UA) (NEG) MG/DL Urine Ketones (NEG) MG/DL Urine Blood (NEG) Urine Nitrite (NEG) Ur Leukocyte Esterase (NEG) 01/15/21 01/15/21 01/16/21 Range/Units 21:47 21:47 00:09 WBC (4.8-10.8) X10*3/uL RBC (4.60-5.80) X10*6/uL Hgb (14.0-18.0) g/dl Hct (42-52) % MCV (80-98) fL MCH (27.0-33.0) pg MCHC (31.0-36.0) g/dl RDW (11.0-16.0) % Plt Count (160-400) X10*3/uL MPV (9.4-12.4) fL Immature Gran % (Auto) (0.0-0.4) % Neut % (Auto) (45-73) % Lymph % (Auto) (20-40) % [place] % (Auto) (2-11) % Eos % (Auto) (0-4) % Baso % (Auto) (0-2) % Lymph # (Auto) (1.2-4.9) X10*3/uL [place] # (Auto) (0.1-1.2) X10*3/uL Eos # (Auto) (0.0-0.4) X10*3/uL Baso # (Auto) (0.0-0.2) X10*3/uL Abs Immat Gran (auto) (0.00-0.03) X10*3/uL Absolute Neuts (auto) (2.0-8.3) X10*3/uL Absolute Nucleated RBC (0.0-0.012) X10*3/uL Nucleated RBC % (auto) (0.0-0.2) /100WBC Sodium (135-145) mmol/L Potassium (3.3-5.1) mmol/L Chloride (96-108) mmol/L Carbon Dioxide (22-29) mmol/L Anion Gap (12-20) BUN (9-16) mg/dL Creatinine (0.5-1.4) mg/dL Estim Creat Clear Calc Estimated GFR POC Glucose (60-115) mg/dL Random Glucose (60-115) mg/dL Lactic Acid 1.5 (0.5-2.0) mmol/L Calcium (8.4-10.2) mg/dL Magnesium (1.6-2.6) mg/dL Total Bilirubin (0.0-1.0) mg/dL AST (5-37) U/L ALT (0-40) U/L Alkaline Phosphatase (39-117) U/L Troponin I High Sens < 3.5 (<3.5-35.0) ng/L B-Natriuretic Peptide 26 (<100) pg/mL Total Protein (6.5-8.0) g/dL Albumin (3.5-5.0) g/dL Lipase (8-78) U/L Urine Color YELLOW Urine Appearance CLEAR Urine pH 5.5 (5.0-8.0) Ur Specific [place] 1.025 (1.005-1.025) Urine Protein NEG (NEG-TRACE) MG/DL Urine Glucose (UA) NEG (NEG) MG/DL Urine Ketones NEG (NEG) MG/DL Urine Blood NEG (NEG) Urine Nitrite NEG (NEG) Ur Leukocyte Esterase NEG (NEG) ECG Data Attestation: I personally reviewed and interpreted this ECG as follows: Prior ECG tracings: available for review (07/24/2020 no acute changes on comparison) Interpretation: Normal sinus rhythm, HR -88, no evidence of acute ischemia, AL/QRS/QTC are within normal limits. 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 Melena Morbid obesity Obesity (BMI 30-39.9) Pain in both feet Pure hypercholesterolemia Right hand pain Schizo affective schizophrenia Schizoaffective disorder Type 2 diabetes mellitus with diabetic chronic kidney disease Surgical History History of repair of congenital cleft palate Hx of circumcision No pertinent past surgical history Family History Family History Father HTN (hypertension) Mother Diabetes Social History Social History Household Members: None Housing: Apartment Do you presently have visiting nurse or other home services: Yes Alcohol intake: current Alcohol intake frequency: holidays/special occasions only Alcohol type: beer Second Hand Smoke Exposure: No Advance Directives: No Advance Directives Information Provided: Yes service: No Current occupational status: employed Current occupation: [employer]
[2021-01-15 21:33] VITALS: BP 100/66; PULSE 88; RESP 18
[2021-01-15] MEDS: 0.9 % Sodium Chloride 2,000 ML 999 ML IV ×2 (21:33→23:48)
--- NOTE | 2021-01-15 21:35 | PC.NURSE ---
MD at bedside discussing results and plan of care.
--- NOTE | 2021-01-15 21:47 | PC.NURSE ---
results technician at bedside to obtain labs. Pt aware of pending UA order, states unable to go right now, provided with a urinal. Continue to monitor.
[2021-01-15 22:01] VITALS: BP 112/69; PULSE 85; RESP 16; O2SAT 96
[2021-01-15 22:02] LABS: Basophils Percent Auto 0.1 % (0-2); Imm Gran Abs Auto 0.04 X10*3/uL (0.00-0.03); Imm Gran Pct Auto 0.3 % (0.0-0.4); PLT CLUMP 1; Red Cell Distribution Width 12.8 % (11.0-16.0); SCAN SMEAR FLAG 1
[2021-01-15 22:04] LABS: Lymphocytes Absolute Auto 0.8 X10*3/uL (1.2-4.9); Lymphocytes Percent Auto 6.3 % (20-40); Mean Corpuscular HGB Conc 35.7 g/dl (31.0-36.0); Monocytes Percent Auto 7.3 % (2-11); Neutrophils Absolute Auto 11.4 X10*3/uL (2.0-8.3); Platelet Count 131 X10*3/uL (160-400); White Blood Count 13.2 X10*3/uL (4.8-10.8)
[2021-01-15 22:11] LABS: MANUAL DIFF FLAG NO
--- NOTE | 2021-01-15 22:20 | HE.PHANOTE ---
Pharmacy has completed the medication reconciliation and there were no significant medication issues requiring provider attention.
[2021-01-15 22:26] LABS: Lactic Acid 1.5 mmol/L (0.5-2.0)
[2021-01-15 22:32] LABS: Alanine Aminotransferase 80 U/L (0-40); Albumin Level 4.4 g/dL (3.5-5.0); Alkaline Phosphatase 163 U/L (39-117); Anion Gap 18 (12-20); Aspartate Amino Transferase 33 U/L (5-37); Bilirubin Total 0.5 mg/dL (0.0-1.0); Blood Urea Nitrogen 25 mg/dL (9-16); Calcium 9.5 mg/dL (8.4-10.2); Carbon Dioxide 20 mmol/L (22-29); Chloride 108 mmol/L (96-108); Creatinine Clr Calc Pharmacy 60.5; Estimated Glomerular Filt Rate 38; Glucose Random 177 mg/dL (60-115); Lipase 25 U/L (8-78); Magnesium 1.7 mg/dL (1.6-2.6); Potassium 3.9 mmol/L (3.3-5.1); Sodium 142 mmol/L (135-145); Total Protein 7.4 g/dL (6.5-8.0)
[2021-01-15 22:56] LABS: B Type Natriuretic Peptide 26 pg/mL (<100); Troponin-I High Sensitivity < 3.5 ng/L (<3.5-35.0)
--- NOTE | 2021-01-15 22:57 | PC.NURSE ---
Hospitalist at bedside for primary eval.
[2021-01-15 23:54] VITALS: BP 115/82; PULSE 87; RESP 20
--- NOTE | 2021-01-15 23:57 | PC.NURSE ---
IVF infusing. Pt -> XRay on hospital bed. Pt returns without incident. Pt aware of plan for straight cath, refusing straight cath at this time. Pt requesting to stand/pivot to attempt to urinate, unable to urinate at this time. Plan for bladder scan and Covid swab.
[2021-01-16] VITALS (7 sets, daily range): BP systolic 106–136; BP diastolic 64–78; PULSE 73–87; RESP 16–20; TEMP 36.1–36.8; O2SAT 95–98
--- NOTE | 2021-01-16 00:16 | PC.NURSE ---
UA obtained via straight cath, pt was unable to urinate, bladder scan revealed 429 ml of urine. 500 ml of UO noted with straight cath. Covid swab obtained. Continue to monitor.
[2021-01-16 00:23] LABS: Glucose Urine UA NEG (NEG); Leukocyte Esterase Urine NEG (NEG); Nitrite Urine NEG (NEG); PH 5.5 (5.0-8.0); Specific Gravity - Urine 1.025 (1.005-1.025); Urine Blood NEG (NEG); Urine Ketones NEG (NEG); Urine Protein NEG (NEG-TRACE)
[2021-01-16 00:36] LABS: Appearance Urine CLEAR; Color Urine YELLOW
[2021-01-16 00:47] LABS: COVID-19 Test Negative (Negative)
--- NOTE | 2021-01-16 01:23 | P.HPHOSP_ITS ---
History of Present Illness Date of Service: 01/16/21 Chief Complaint: abd pain 60-year-old male with past medical history of CKD, HTN, diabetes, HLD, morbid obesity, schizoaffective schizophrenia, who presents to hospital with complaints of abdominal pain. Patient reports that he came home in the afternoon, had food, then developed abdominal pain, diffuse, 10/10, associated with nausea with no vomiting, non radiating, no exacerbating or relieving factors, reports that he has been constipated and was taking lactulose but developed significant diarrhea few days ago and therefore he stopped taking that and has been constipated since. He reports that he moved small hard bowel today but has not been moving any gas. Denies any chest pain, shortness of breath, no palpitations, no headache or change in vision, no urinary symptoms and no lower extremity edema. No numbness tingling. Patient found to have temp of 97.8?, heart rate of 95, respiratory rate of 18, blood pressure of 70/42, satting 95% on room air. Patient received 4 L of fluid with blood pressure improving to 100/66 Lab significant for WBC count of 13.2, hemoglobin of 15, BUN of 25, creatinine of 1.85, ALT of 80, AST of 163 (chronically elevated), UA negative. Hypovolemia with silk like IVC without evidence of intra-abdominal or pelvic hemorrhage, large stool burden throughout the colon with dilatation of small bowel present without a clear-cut obstruction lesion or transition zone. Small- bowel obstruction versus ileus GI consult, recommended given patient soapsuds enema and admit for evaluation Past medical history as below and confirmed the patient Review of Systems Review of Systems: Yes all other systems are reviewed and are negative [facility] 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, bilateral FCI (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 Melena Morbid obesity Obesity (BMI 30-39.9) Pain in both feet Pure hypercholesterolemia Right hand pain Schizo affective schizophrenia Schizoaffective disorder Type 2 diabetes mellitus with diabetic chronic kidney disease Family History Father HTN (hypertension) Mother Diabetes Surgical History History of repair of congenital cleft palate Hx of circumcision No pertinent past surgical history Social History Household Members: None Housing: Apartment Do you presently have visiting nurse or other home services: Yes Alcohol intake: current Alcohol intake frequency: holidays/special occasions only Alcohol type: beer Patient Tobacco Use Status: Never used Tobacco Second Hand Smoke Exposure: No Use of substances other than those prescribed or required for medical reasons: No Currently Displaying Signs/Symptoms of Drug Intoxication Withdrawal: No Have you been hit, kicked, punched, or otherwise hurt by someone within the past year? If so, by whom?: No Do you feel safe in your current relationship?: No Current Relationship Is there a partner from a previous relationship who is making you feel unsafe now?: No Are you made to feel afraid or neglected: No Advance Directives: No Advance Directives Information Provided: Yes Do you have thoughts of harming others: None Do you have a plan to hurt others: No Plan Recently lost weight without trying: Yes How much weight loss: 2-13 pounds Nutrition Risks: No Nutritional Risk Poor oral hygiene: No service: No Current occupational status: employed Current occupation: [employer] Meds Allergies Allergy/AdvReac Type Severity Reaction Status Date / Time No Known Allergies Allergy Verified 12/18/20 12:46 [No Known Allergies*] Active Medications: Current Medications Generic Name Dose Route Start Last Admin Trade Name Freq PRN Reason Stop Dose Admin Acetaminophen 650 mg 01/16/21 00:35 Acetaminophen 325 Mg Tablet PO Q6H PRN Pain, Mild (Pain Scale 1-3) Acetaminophen 650 mg 01/16/21 00:35 Acetaminophen Supp 650 Mg Supp.Rect WI Q6H PRN Pain, Mild (Pain Scale 1-3) Atorvastatin Calcium 10 mg 01/16/21 21:00 Atorvastatin Calcium 10 Mg Tablet PO BEDTIME [facility] Benztropine Mesylate 0.5 mg 01/16/21 09:00 Benztropine Mesylate 0.5 Mg Tablet PO BID [facility] Clozapine 100 mg 01/16/21 09:00 Clozapine 100 Mg Tablet PO DAILY [facility] Clozapine 300 mg 01/16/21 21:00 Clozapine 100 Mg Tablet PO BEDTIME [facility] Furosemide 20 mg 01/16/21 09:00 Furosemide 20 Mg Tablet PO DAILY [facility] Protocol Gabapentin 300 mg 01/16/21 21:00 Gabapentin 300 Mg Capsule PO BEDTIME [facility] Heparin Sodium (Porcine) 5,000 unit 01/16/21 01:00 Heparin Sodium,Porcine 5,000 Unit/Ml Vial SUBCUT Q8H [facility] Hydroxyzine HCl 50 mg 01/16/21 00:35 Hydroxyzine Hcl 50 Mg Tablet PO TID PRN Anxiety Sodium Chloride 2,000 mls @ 999 mls/hr 01/15/21 23:28 01/15/21 23:48 Ns IV 01/16/21 01:28 999 mls/hr .Q2H1M STA Administration Lactated Ringer's 1,000 mls @ 125 mls/hr 01/16/21 00:30 Lr IVCONT .Q8H [facility] Morphine Sulfate 4 mg 01/16/21 00:35 Morphine Sulfate 4 Mg/Ml Cartridge IVPUSH Q4H PRN Pain, Severe (Pain Scale 7-10) Non-Formulary Medication 38 unit 01/16/21 09:00 Insulin Degludec [Tresiba Flextouch U-200] SUBCUT DAILY [facility] Ondansetron HCl 4 mg 01/16/21 00:35 Ondansetron Hcl 4 Mg/2 Ml Vial IVPUSH Q8H PRN Nausea and Vomiting Pharmacy Consult 1 each 01/15/21 21:54 Consult Rx Perform Med Rec MISCELLANE ONCE PRN Consult order Sodium Chloride 3 ml 01/16/21 08:00 0.9 % Sodium Chloride Flush 3 Ml Syringe IVFLUSH QSHIFT [facility] Vitamin D 25 mcg 01/16/21 09:00 Cholecalciferol (Vitamin D3) 25 Mcg Tablet PO DAILY [facility] Home Medications Medication Instructions Recorded Confirmed Last Taken Type clozapine 100 mg tablet 100 mg PO DAILY tab 05/14/20 01/15/21 01/15/21 History omega 2-jnl-sis-fish oil 1,200 mg 1 cap PO BID cap 05/14/20 01/15/21 02/06/20 History (144 mg-216 mg) capsule clozapine 300 mg PO BEDTIME 07/25/20 01/15/21 01/14/21 History hydroxyzine pamoate 50 mg capsule 50 mg PO TID PRN 09/18/20 01/15/21 Unknown History lactulose 10 gram/15 mL oral 30 ml PO BID ml 01/07/21 01/15/21 01/15/21 History solution Trulicity 1.5 mg SUBCUT TH 01/15/21 01/15/21 01/14/21 History atorvastatin [Lipitor] 10 mg PO BEDTIME 01/15/21 01/15/21 Unknown History benztropine 1 tab PO BID 01/15/21 01/15/21 01/15/21 History linaclotide [Linzess] 145 mcg PO DAILY 01/15/21 01/15/21 01/15/21 History Physical Exam Vital Signs and Narrative: Vital Signs: Last Vital Signs Temp 97.8 F 01/15/21 20:58 Pulse 87 01/15/21 23:54 Resp 20 01/15/21 23:54 BP 115/82 01/15/21 23:54 Pulse Ox 96 01/15/21 22:01 Body Mass Index 36.6 Const: General: cooperative and no acute distress Orientation/consciousness: patient oriented x3 Eyes: General: appearance normal, both eyes and all related structures Resp: Effort & Inspection: normal respiratory effort, able to speak in complete sentences and abnormal respiratory pattern Cardio: Rate: regular rate Rhythm: regular rhythm GI: Other: Obese abdomen, no guarding, no rebound Palpation (GI): Soft to palpation Auscultation: normal bowel sounds Skin: General skin exam: no rashes or lesions noted Neuro: General: patient oriented x3 Cognition (Neuro): normal cognition Extrem: General: Yes normal to inspection and Yes no pedal edema Results Labs CBC and Chem 7: 01/15/21 21:47 01/15/21 21:47 Labs: Laboratory Results - last 24 hr 01/15/21 01/15/21 01/15/21 21:11 21:47 21:47 MCV 84.0 MCH 30.0 MCHC 35.7 RDW 12.8 Plt Count 131 L MPV 11.0 Immature Gran % (Auto) 0.3 Neut % (Auto) 86.0 H Lymph % (Auto) 6.3 L [place] % (Auto) 7.3 Eos % (Auto) 0.0 Baso % (Auto) 0.1 Lymph # (Auto) 0.8 L [place] # (Auto) 1.0 Eos # (Auto) 0.0 Baso # (Auto) 0.0 Abs Immat Gran (auto) 0.04 H Absolute Neuts (auto) 11.4 H Absolute Nucleated RBC 0.000 Nucleated RBC % (auto) 0.0 Anion Gap 18 Estim Creat Clear Calc 60.5 Estimated GFR 38 POC Glucose 174 H Random Glucose 177 H Lactic Acid Calcium 9.5 Magnesium 1.7 Total Bilirubin 0.5 AST 33 ALT 80 H Alkaline Phosphatase 163 H D Troponin I High Sens B-Natriuretic Peptide Total Protein 7.4 Albumin 4.4 Lipase 25 Urine Color Urine Appearance Urine pH Ur Specific [place] Urine Protein Urine Glucose (UA) Urine Ketones Urine Blood Urine Nitrite Ur Leukocyte Esterase COVID-19 ([facility]) COVID-19 Clin Com 01/15/21 01/15/21 01/16/21 21:47 21:47 00:07 MCV MCH MCHC RDW Plt Count MPV Immature Gran % (Auto) Neut % (Auto) Lymph % (Auto) [place] % (Auto) Eos % (Auto) Baso % (Auto) Lymph # (Auto) [place] # (Auto) Eos # (Auto) Baso # (Auto) Abs Immat Gran (auto) Absolute Neuts (auto) Absolute Nucleated RBC Nucleated RBC % (auto) Anion Gap Estim Creat Clear Calc Estimated GFR POC Glucose Random Glucose Lactic Acid 1.5 Calcium Magnesium Total Bilirubin AST ALT Alkaline Phosphatase Troponin I High Sens < 3.5 B-Natriuretic Peptide 26 Total Protein Albumin Lipase Urine Color Urine Appearance Urine pH Ur Specific [place] Urine Protein Urine Glucose (UA) Urine Ketones Urine Blood Urine Nitrite Ur Leukocyte Esterase COVID-19 ([facility]) Negative COVID-19 Clin Com See Note 01/16/21 00:09 MCV MCH MCHC RDW Plt Count MPV Immature Gran % (Auto) Neut % (Auto) Lymph % (Auto) [place] % (Auto) Eos % (Auto) Baso % (Auto) Lymph # (Auto) [place] # (Auto) Eos # (Auto) Baso # (Auto) Abs Immat Gran (auto) Absolute Neuts (auto) Absolute Nucleated RBC Nucleated RBC % (auto) Anion Gap Estim Creat Clear Calc Estimated GFR POC Glucose Random Glucose Lactic Acid Calcium Magnesium Total Bilirubin AST ALT Alkaline Phosphatase Troponin I High Sens B-Natriuretic Peptide Total Protein Albumin Lipase Urine Color YELLOW Urine Appearance CLEAR Urine pH 5.5 Ur Specific [place] 1.025 Urine Protein NEG Urine Glucose (UA) NEG Urine Ketones NEG Urine Blood NEG Urine Nitrite NEG Ur Leukocyte Esterase NEG COVID-19 ([facility]) COVID-19 Clin Com Imaging Radiologist's Impressions: Impressions Abdomen/Pelvis CT 01/15/21 21:06 IMPRESSION: 1. Patient appears hypovolemic with slitlike IVC without evidence of intra-abdominal or pelvic hemorrhage. 2. Large stool burden throughout the colon but colonic dilatation is improved when compared to the prior study. There is now dilatation of small bowel present without a clearcut obstructing lesion or transition zone. Early small bowel obstruction versus ileus. Chest X-Ray 01/15/21 21:07 IMPRESSION: Left lower lobe atelectasis. When patient is stable, and inspiratory PA and lateral chest radiograph would be useful for further evaluation. Abdomen Ultrasound 01/15/21 22:45 IMPRESSION: 1. Diffuse increased echogenicity of liver parenchyma suggesting fatty change. 2. No gallstone or acute change of the gallbladder. There is no bile duct dilatation. There is positive ultrasound Reis's sign. Chest X-Ray 01/15/21 23:32 IMPRESSION: Minimal streaky bibasilar opacities favoring atelectasis. Assessment and Plan (1) Bowel obstruction: Status: Acute (2) ROEL (acute kidney injury): Status: Acute (3) Constipation: Status: Acute (4) Hypotension: Status: Acute 60-year-old male with past medical history as mentioned above who presents to the hospital with complaints of abdominal pain found to have small-bowel obstruction/ileus # small-bowel obstruction/ileus - possibly secondary to chronic constipation - per recommendation of GI will start patient on soapsuds enema - GI consult - monitor for any worsening or changes in symptoms - keep npo # constipation - subside enema - bowl regimen once pt eating and ok with GI # ROEL - most likely 2/2 dehydration - received IV fluids boluses and will continue IV - hold nephrotoxic meds ( lasix) - follow BMP # hypotension - secondary to dehydration - no evidence of infection infection - resolved after IV fluids - monitor BP # diabetes - hold metformin - start low-dose sliding scale insulin - diabetic diet # on lasix - pt denies hx of hf and reports he takes water pill but is not sure why - no acute chf exacerbation or documented hx of suhc - will hold lasix at this time in setting of ROEL DVT prophylaxis: Heparin subQ
[2021-01-16] MEDS: Lactated Ringers 1,000 ML 125 ML IVCONT ×3 (01:25→16:42)
[2021-01-16] MEDS: Heparin Sodium,Porcine 5,000 UNIT/ML VIAL 5000 UNIT SUBCUT ×3 (01:26→16:45)
--- NOTE | 2021-01-16 02:25 | PC.NURSE ---
MD contacted regarding urinary retention, per hospitalist to insert madrigal.
--- NOTE | 2021-01-16 02:30 | PC.NURSE ---
Report given to M/S RN.
--- NOTE | 2021-01-16 02:45 | PC.NURSE ---
Edmond placed. tool grinding technician preparing pt for transport to floor.
[2021-01-16 07:57] LABS: Glucose, Whole Blood 171 mg/dL (60-115)
[2021-01-16] MEDS: Insulin Lispro 100 UNIT/ML 3 ML VIAL SUBCUT (07:59)
[2021-01-16] MEDS: Docusate Sodium 100 MG CAPSULE PO ×2 (08:00→19:58)
[2021-01-16] MEDS: Cholecalciferol (Vitamin D3) 25 MCG TABLET PO (08:00)
[2021-01-16] MEDS: hydrOXYzine HCL 50 MG TABLET PO ×2 (08:06→14:44)
[2021-01-16] MEDS: Acetaminophen 325 MG TABLET 650 MG PO ×2 (08:06→14:44)
[2021-01-16] MEDS: Benztropine Mesylate 0.5 MG TABLET PO ×2 (08:46→19:59)
[2021-01-16] MEDS: cloZAPine 100 MG TABLET PO (08:46)
[2021-01-16] MEDS: polyethylene glycoL 3350 17 GM POWD.PACK PO (08:46)
[2021-01-16] MEDS: Insulin Glargine,Hum.rec.anlog 100 UNIT/ML 10 ML VIAL 20 UNIT SUBCUT (08:46)
[2021-01-16 10:04] LABS: Anion Gap 15 (12-20); Blood Urea Nitrogen 30 mg/dL (9-16); Calcium 8.1 mg/dL (8.4-10.2); Carbon Dioxide 19 mmol/L (22-29); Chloride 113 mmol/L (96-108); Creatinine Clr Calc Pharmacy 91.8; Estimated Glomerular Filt Rate > 60; Glucose Random 168 mg/dL (60-115); Potassium 4.1 mmol/L (3.3-5.1); Sodium 143 mmol/L (135-145)
--- NOTE | 2021-01-16 10:41 | MHC.CM.PN ---
PT REPORTS HE LIVES ALONE AND HAS A COMMUNITY AND MENTAL HEALTH PROVIDERS THROUGH [facility] IN [place]. PT REPORTS HE ALSO HAS A NURSE THAT COMES WEEKLY BUT HE IS UNSURE WHO THAT IS THROUGH. HE REPORTS THE NURSE IS COVERED BY [facility]. PTS RECORDS INDICATE HE WAS ACTIVE WITH [facility] IN SEPTEMBER 2020. MESSAGE SENT TO DETERMINE IF THEY ARE STILL ACTIVE. 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 PT REPORTS HE HAS A HCP,. COPY REQUESTED. PT CONFIRMS HIS PCP IS TYREL DAMON. IMM DELIVERED CURRENT DC PLAN IS HOME WITH NO SERVICES PT WILL DRIVE HIMSELF HOME
[2021-01-16 11:11] LABS: Glucose, Whole Blood 121 mg/dL (60-115)
[2021-01-16] MEDS: Lactulose 20 GM/30 ML SOLUTION 30 GM PO ×2 (12:40→20:04)
--- NOTE | 2021-01-16 14:10 | P.CONGS_ITS ---
History of Present Illness Consult details Consult date: 01/16/21 Reason for consult: other (Chronic constipation) Requesting physician: Ronit Chavis Narrative: This is a 60-year-old gentleman with a history of schizophrenia who is taking several psych medications since 1989 was also following with Gastroenterology regarding this chronic constipation who presented to the emergency department last evening with diffuse abdominal pain that he reports was a 10/10. Patient reports he has had constipation for many years Susy Gordillo the nurse practitioner at the [place] [facility]. Patient reports he is being treated with a combination of lactulose and Linzess to manage his chronic constipation. Patient reports he often time has incontinence of stool when taking lactulose. He is supposed to take lactulose 15 mg twice daily but reports he takes it on as needed basis as he has fecal leakage on a regular basis mostly at night. Patient has been taking lactulose for the past 6-7 months. Patient reports he has had this type of abdominal pain previously and usually he will taking lactulose with several episodes of very loose stools and a large amounts solid stool as well. Patient began having abdominal cramping last evening and progressed to a 10/10 on a pain scale. He reports his abdominal discomfort diffuse and had no exacerbating or alleviating factors. Patient did not feel that he should take lactulose and came to the emergency department for evaluation given the pain. Patient had a CT scan of the abdomen and pelvis that showed a large stool burden throughout the colon and some dilated loops of small bowel without any evidence of transition point. Given the patient's abdominal pain and significant constipation he was admitted to the Medicine Service. Patient reports his last bowel movement was yesterday. He just had a soapsuds enema around 45 minutes ago but has not had a bowel movement since then. Patient reports he is passing some gas. Patient reports his abdominal pain has completely resolved. He denies any nausea or vomiting. Patient had nausea yesterday but had no vomiting. Patient denies any fever, chills, shortness of breath, chest pain. Review of Systems Review of Systems: Yes all other systems are reviewed and are negative Constitutional: Constitutional: Denies chills, Denies daytime sleepiness, Reports difficulty sleeping, Denies excessive sweating, Reports fatigue, Denies fever(s), Reports headache(s), Denies night sweats, Denies snoring, Denies stops breathing during sleep and Denies weakness Eyes: Eyes: Reports blurry vision, Denies other visual disturbances and Reports requires corrective lenses ENT: Denies bleeding gums, Denies dysphagia, Denies dizziness, Reports headache(s), Denies hearing loss, Denies sinus pain and Denies sore throat Cardiovascular: Cardiovascular: Denies chest pain, Denies chest pain at rest, Denies chest pain with activity, Denies syncope, Denies irregular heart rhythm, Denies leg edema, Denies lightheadedness, Denies dyspnea, Denies dyspnea on exertion and Denies orthopnea Respiratory: Respiratory: Denies chest congestion, Denies cough, Denies dyspne a, Denies dyspnea on exertion, Denies snoring and Denies wheezing Gastrointestinal: Gastrointestinal: Reports abdominal pain, Denies melena, Denies bloating, Reports constipation, Denies dysphagia, Denies heartburn, Re ports fecal incontinence, Reports diarrhea, Reports loose stools, Reports nausea and Denies vomiting Genitourinary: Genitourinary: Denies hematuria, Denies difficulty urinating and Denies nocturia Musculoskeletal: Musculoskeletal: Denies abnormal gait, Reports back pain, Denies deformity, Reports arthralgias, Denies joint swelling and Denies stiffness Integumentary/Breasts: Skin/Breast: Denies breast pain, Denies breast mass and Denies nipple discharge Neurologic: Denies abnormal gait, Denies dizziness, Denies syncope, Reports headache(s), Denies seizure-like activity and Denies weakness Psychiatric: Psychiatric: Denies abnormal sleep pattern, Reports anxiety, Reports depression, Denies panic attacks and Reports other (Schizophrenia) Endocrine: Endocrine: Denies excessive sweating, Reports fatigue, Denies heat intolerance, Denies polyphagia, Denies polydipsia and Denies polyuria Hematologic/Lymphatic: Hematologic/Lymphatic: Denies easy bleeding and Denies easy bruising Allergic/Immunologic: Allergic/Immunologic: Denies wheezing PMFSH Past Medical History 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, bilateral 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 Melena Morbid obesity Obesity (BMI 30-39.9) Pain in both feet Pure hypercholesterolemia Right hand pain Schizo affective schizophrenia Schizoaffective disorder Type 2 diabetes mellitus with diabetic chronic kidney disease Family History Family History Father HTN (hypertension) Mother Diabetes Surgical History Surgical History History of repair of congenital cleft palate Hx of circumcision Social History Social History Household Members: None Housing: Apartment Do you presently have visiting nurse or other home services: Yes Alcohol intake: current Alcohol intake frequency: holidays/special occasions only Alcohol type: beer Patient Tobacco Use Status: Never used Tobacco Second Hand Smoke Exposure: No Use of substances other than those prescribed or required for medical reasons: No Currently Displaying Signs/Symptoms of Drug Intoxication Withdrawal: No Have you been hit, kicked, punched, or otherwise hurt by someone within the past year? If so, by whom?: No Do you feel safe in your current relationship?: No Current Relationship Is there a partner from a previous relationship who is making you feel unsafe now?: No Are you made to feel afraid or neglected: No Advance Directives: No Advance Directives Information Provided: Yes Do you have thoughts of harming others: None Do you have a plan to hurt others: No Plan Recently lost weight without trying: Yes How much weight loss: 2-13 pounds Nutrition Risks: No Nutritional Risk Poor oral hygiene: No service: No Current occupational status: employed Current occupation: [employer] Meds Allergies Allergy/AdvReac Type Severity Reaction Status Date / Time No Known Allergies Allergy Verified 12/18/20 12:46 [No Known Allergies*] Active Medications: Current Medications Generic Name Dose Route Start Last Admin Trade Name Freq PRN Reason Stop Dose Admin Acetaminophen 650 mg 01/16/21 00:35 01/16/21 08:06 Acetaminophen 325 Mg Tablet PO 650 mg Q6H PRN Administration Pain, Mild (Pain Scale 1-3) Acetaminophen 650 mg 01/16/21 00:35 Acetaminophen Supp 650 Mg Supp.Rect [place] Q6H PRN Pain, Mild (Pain Scale 1-3) Atorvastatin Calcium 10 mg 01/16/21 21:00 Atorvastatin Calcium 10 Mg Tablet PO BEDTIME [facility] Benztropine Mesylate 0.5 mg 01/16/21 09:00 01/16/21 08:46 Benztropine Mesylate 0.5 Mg Tablet PO 0.5 mg BID [place] Administration Clozapine 100 mg 01/16/21 09:00 01/16/21 08:46 Clozapine 100 Mg Tablet PO 100 mg DAILY [place] Administration Clozapine 300 mg 01/16/21 21:00 Clozapine 100 Mg Tablet PO BEDTIME [place] Docusate Sodium 100 mg 01/16/21 09:00 01/16/21 08:00 Docusate Sodium 100 Mg Capsule PO 100 mg BID [place] Administration Gabapentin 300 mg 01/16/21 21:00 Gabapentin 300 Mg Capsule PO BEDTIME [facility] Heparin Sodium (Porcine) 5,000 unit 01/16/21 01:00 01/16/21 08:01 Heparin Sodium,Porcine 5,000 Unit/Ml Vial SUBCUT 5,000 unit Q8H [place] Administration Hydroxyzine HCl 50 mg 01/16/21 00:35 01/16/21 08:06 Hydroxyzine Hcl 50 Mg Tablet PO 50 mg TID PRN Administration Anxiety Lactated Ringer's 1,000 mls @ 125 mls/hr 01/16/21 00:30 01/16/21 08:55 Lr IVCONT 01/16/21 22:00 125 mls/hr .Q8H [place] Administration Insulin Glargine 20 unit 01/16/21 09:00 01/16/21 08:46 Insulin Glargine,Hum.Rec.Anlog 100 Unit/Ml 10 Ml Vial SUBCUT 20 unit DAILY [facility] Administration Insulin Human Lispro 0 unit 01/16/21 07:30 01/16/21 11:14 Insulin Lispro 100 Unit/Ml 3 Ml Vial SUBCUT Not Given QIDACHS [facility] Protocol Lactulose 30 gm 01/16/21 21:00 Lactulose 20 Gm/30 Ml Solution PO BID [facility] Morphine Sulfate 4 mg 01/16/21 00:35 Morphine Sulfate 4 Mg/Ml Cartridge IVPUSH Q4H PRN Pain, Severe (Pain Scale 7-10) Ondansetron HCl 4 mg 01/16/21 00:35 Ondansetron Hcl 4 Mg/2 Ml Vial IVPUSH Q8H PRN Nausea and Vomiting Pharmacy Consult 1 each 01/15/21 21:54 Consult Rx Perform Med Rec MISCELLANE ONCE PRN Consult order Polyethylene Glycol 17 gm 01/16/21 09:00 01/16/21 08:46 Polyethylene Glycol 3350 17 Gm Powd.Pack PO 17 gm DAILY [place] Administration Sodium Chloride 3 ml 01/16/21 08:00 01/16/21 07:51 0.9 % Sodium Chloride Flush 3 Ml Syringe IVFLUSH Not Given QSHIFT [place] Vitamin D 25 mcg 01/16/21 09:00 01/16/21 08:00 Cholecalciferol (Vitamin D3) 25 Mcg Tablet PO 25 mcg DAILY [place] Administration Home Medications Medication Instructions Recorded Confirmed Last Taken Type clozapine 100 mg tablet 100 mg PO DAILY tab 05/14/20 01/15/21 01/15/21 History omega 2-ftx-qyn-fish oil 1,200 mg 1 cap PO BID cap 05/14/20 01/15/21 02/06/20 History (144 mg-216 mg) capsule clozapine 300 mg PO BEDTIME 07/25/20 01/15/21 01/14/21 History hydroxyzine pamoate 50 mg capsule 50 mg PO TID PRN 09/18/20 01/15/21 Unknown History lactulose 10 gram/15 mL oral 30 ml PO BID ml 01/07/21 01/15/21 01/15/21 History solution Trulicity 1.5 mg SUBCUT TH 01/15/21 01/15/21 01/14/21 History atorvastatin [Lipitor] 10 mg PO BEDTIME 01/15/21 01/15/21 Unknown History benztropine 1 tab PO BID 01/15/21 01/15/21 01/15/21 History linaclotide [Linzess] 145 mcg PO DAILY 01/15/21 01/15/21 01/15/21 History Physical Exam Vital Signs: Vital Signs: Last Vital Signs Temp 97 F 01/16/21 12:00 Pulse 80 01/16/21 12:00 Resp 16 01/16/21 12:00 BP 122/76 01/16/21 12:00 Pulse Ox 96 01/16/21 12:00 Body Mass Index 36.6 Const: General: cooperative, healthy appearing, comfortable and no acute distress HENMT: Head: Yes normal to inspection and Yes normocephalic Ears: hearing grossly normal bilaterally Mouth: Normal oral and palatal mucosa present Eyes: General: appearance normal, both eyes and all related structures Conjunctivae: conjunctivae normal Sclerae: sclerae normal EOM: EOMs intact bilaterally Neck: Neck: Yes normal visual inspection, Yes no lymphadenopathy and Yes trachea midline Thyroid: Thyroid normal Resp: Effort & Inspection: normal respiratory effort, able to speak in complete sentences, respiratory effort not decreased, no grunting and not labored Auscultation: clear to auscultation bilaterally Cardio: Jugular venous distension: no JVD Heart sounds: S1 normal heart sound present and S2 normal heart sound present GI: Inspection: Yes normal to inspection, No distended, No incision and Yes obesity Palpation (GI): Soft to palpation, nontender, no guarding, not rigid, No hepatosplenomegaly present, no hernias and no masses Skin: General skin exam: no rashes or lesions noted Extrem: General: Yes normal to inspection, Yes no clubbing, cyanosis or edema and Yes no calf tenderness Results Labs Result diagrams: 01/15/21 21:47 01/16/21 08:28 Labs: Abnormal lab results 01/15/21 01/15/21 01/15/21 Range/Units 21:11 21:47 21:47 WBC 13.2 H (4.8-10.8) X10*3/uL Plt Count 131 L (160-400) X10*3/uL Neut % (Auto) 86.0 H (45-73) % Lymph % (Auto) 6.3 L (20-40) % Lymph # (Auto) 0.8 L (1.2-4.9) X10*3/uL Abs Immat Gran (auto) 0.04 H (0.00-0.03) X10*3/uL Absolute Neuts (auto) 11.4 H (2.0-8.3) X10*3/uL Chloride (96-108) mmol/L Carbon Dioxide 20 L (22-29) mmol/L BUN 25 H (9-16) mg/dL Creatinine 1.85 H (0.5-1.4) mg/dL POC Glucose 174 H (60-115) mg/dL Random Glucose 177 H (60-115) mg/dL Calcium (8.4-10.2) mg/dL ALT 80 H (0-40) U/L Alkaline Phosphatase 163 H D (39-117) U/L 01/16/21 01/16/21 01/16/21 Range/Units 07:46 08:28 11:08 WBC (4.8-10.8) X10*3/uL Plt Count (160-400) X10*3/uL Neut % (Auto) (45-73) % Lymph % (Auto) (20-40) % Lymph # (Auto) (1.2-4.9) X10*3/uL Abs Immat Gran (auto) (0.00-0.03) X10*3/uL Absolute Neuts (auto) (2.0-8.3) X10*3/uL Chloride 113 H (96-108) mmol/L Carbon Dioxide 19 L (22-29) mmol/L BUN 30 H (9-16) mg/dL Creatinine (0.5-1.4) mg/dL POC Glucose 171 H 121 H (60-115) mg/dL Random Glucose 168 H (60-115) mg/dL Calcium 8.1 L D (8.4-10.2) mg/dL ALT (0-40) U/L Alkaline Phosphatase (39-117) U/L Short CBC 01/15/21 Range/Units 21:47 WBC 13.2 H (4.8-10.8) X10*3/uL Hgb 15.0 (14.0-18.0) g/dl Hct 42.0 (42-52) % Plt Count 131 L (160-400) X10*3/uL BMP 01/15/21 01/16/21 21:47 08:28 Sodium 142 143 Potassium 3.9 4.1 Chloride 108 113 H Carbon Dioxide 20 L 19 L BUN 25 H 30 H Creatinine 1.85 H 1.22 Calcium 9.5 8.1 L D Liver Function 01/15/21 Range/Units 21:47 Total Bilirubin 0.5 (0.0-1.0) mg/dL AST 33 (5-37) U/L ALT 80 H (0-40) U/L Alkaline Phosphatase 163 H D (39-117) U/L Albumin 4.4 (3.5-5.0) g/dL Urine 01/16/21 Range/Units 00:09 Urine Color YELLOW Urine Appearance CLEAR Urine pH 5.5 (5.0-8.0) Ur Specific [place] 1.025 (1.005-1.025) Urine Protein NEG (NEG-TRACE) MG/DL Urine Glucose (UA) NEG (NEG) MG/DL All other labs normal. Assessment and Plan (1) Constipation: Status: Acute This is a 60-year-old gentleman with chronic constipation a large stool burden. I do not believe this patient has a bowel obstruction. It appears he has very slow transit within the bowel and this may likely be related to his psychiatric medications that he has been taking for years. Patient will need a Gastroenterology consult for better bowel regimen. Patient may started on a liquid diet to see how he tolerates that and may be advanced to regular diet as tolerated. Patient may be discharged home once he has a better bowel regimen. Change of psychiatric medication may be helpful in improving the constipation. There is no indication for any surgical intervention. I will sign off please call with questions. Thank you for allowing me to participate in the care of this patient. I spent 45 minutes of time with this patient which also included obtaining the history physical, reviewing the radiologic films as well as the reading, and reviewing the patient's laboratory values. Procedures Date of Service Date of Service: 01/16/21
[2021-01-16 16:46] LABS: Glucose, Whole Blood 96 mg/dL (60-115)
[2021-01-16] MEDS: Atorvastatin Calcium 10 MG TABLET PO (19:59)
[2021-01-16] MEDS: Gabapentin 300 MG CAPSULE PO (19:59)
[2021-01-16] MEDS: cloZAPine 100 MG TABLET 300 MG PO (20:00)
[2021-01-16 20:30] LABS: Glucose, Whole Blood 82 mg/dL (60-115)
[2021-01-16 22:16] LABS: Glucose, Whole Blood 91 mg/dL (60-115)
[2021-01-17 03:31] VITALS: BP 100/90; PULSE 79; RESP 18; TEMP 36.6; O2SAT 97
[2021-01-17] MEDS: Acetaminophen 325 MG TABLET 650 MG PO (03:33)
[2021-01-17] MEDS: Heparin Sodium,Porcine 5,000 UNIT/ML VIAL 5000 UNIT SUBCUT ×3 (03:34→18:21)
[2021-01-17] MEDS: hydrOXYzine HCL 50 MG TABLET PO (04:14)
[2021-01-17 07:29] VITALS: BP 129/81; PULSE 73; RESP 16; TEMP 36; O2SAT 98
[2021-01-17 07:53] LABS: Glucose, Whole Blood 98 mg/dL (60-115)
[2021-01-17 08:09] LABS: Mean Platelet Volume 10.3 fL (9.4-12.4); Red Blood Count 4.12 X10*6/uL (4.60-5.80)
[2021-01-17 08:11] LABS: Hemoglobin 12.2 g/dl (14.0-18.0); Imm Gran Abs Auto 0.03 X10*3/uL (0.00-0.03); Imm Gran Pct Auto 0.5 % (0.0-0.4); Lymphocytes Absolute Auto 1.4 X10*3/uL (1.2-4.9); Lymphocytes Percent Auto 24.3 % (20-40); Mean Corpuscular HGB Conc 34.9 g/dl (31.0-36.0); Mean Corpuscular Hemoglobin 29.6 pg (27.0-33.0); Monocytes Absolute Auto 0.4 X10*3/uL (0.1-1.2); Monocytes Percent Auto 6.7 % (2-11); Neutrophils Percent Auto 68.5 % (45-73); Platelet Count 107 X10*3/uL (160-400); White Blood Count 5.9 X10*3/uL (4.8-10.8)
[2021-01-17] MEDS: 0.9 % Sodium Chloride Flush 3 ML SYRINGE IVFLUSH ×3 (08:39→21:32)
[2021-01-17] MEDS: Docusate Sodium 100 MG CAPSULE PO ×2 (08:39→21:30)
[2021-01-17] MEDS: polyethylene glycoL 3350 17 GM POWD.PACK PO (08:39)
[2021-01-17] MEDS: Omeprazole 40 MG CAPSULE.DR PO (08:39)
[2021-01-17] MEDS: Benztropine Mesylate 0.5 MG TABLET PO ×2 (08:39→21:30)
[2021-01-17] MEDS: Insulin Glargine,Hum.rec.anlog 100 UNIT/ML 10 ML VIAL 20 UNIT SUBCUT (08:39)
[2021-01-17] MEDS: Cholecalciferol (Vitamin D3) 25 MCG TABLET PO (08:39)
[2021-01-17] MEDS: cloZAPine 100 MG TABLET PO (08:39)
[2021-01-17] MEDS: Lactulose 20 GM/30 ML SOLUTION 30 GM PO ×2 (08:40→21:29)
[2021-01-17 09:03] LABS: Anion Gap 11 (12-20); Blood Urea Nitrogen 20 mg/dL (9-16); Calcium 8.5 mg/dL (8.4-10.2); Carbon Dioxide 24 mmol/L (22-29); Chloride 112 mmol/L (96-108); Creatinine Clr Calc Pharmacy 108.7; Estimated Glomerular Filt Rate > 60; Glucose Random 97 mg/dL (60-115); Sodium 143 mmol/L (135-145)
--- NOTE | 2021-01-17 11:00 | P.PNIM_ITS ---
Subjective Subjective Date of Service: 01/17/21 Interval History: The patient was seen and evaluated this morning Sitting in his bed, feels much better today, had multiple bowel movements ye sterday Able to tolerate clear liquids this morning Denies any fever, chills or shortness of breath No reported other overnight events. Systemic review: No fever, chills or weakness No chest pain, palpitation No shortness of breath or coughing Constipation resolving, no nausea or vomiting No urinary symptoms No any rash or wounds Physical Exam Vital Signs: Vital Signs: Last Vital Signs Temp 96.8 F 01/17/21 07:29 Pulse 73 01/17/21 07:29 Resp 16 01/17/21 07:29 BP 129/81 01/17/21 07:29 Pulse Ox 98 01/17/21 07:29 Body Mass Index 36.6 Const: Other: Constitutional : Alert, oriented, not in distress Neck : Normal inspection, Supple Cardiovascular : RRR, S1 S2, no lower extremity edema Respiratory : Fair bilateral air entry, no crackles, wheezes or rhonchi Gastrointestinal: soft, lax, Normal bowel sounds, Non tender Skin : Warm/Dry, No rash Neurological : Alert & oriented x3, No focal deficit Objective Data Current Medications Generic Name Dose Route Start Last Admin Trade Name Freq PRN Reason Stop Dose Admin Acetaminophen 650 mg 01/16/21 00:35 01/17/21 03:33 Acetaminophen 325 Mg Tablet PO 650 mg Q6H PRN Administration Pain, Mild (Pain Scale 1-3) Acetaminophen 650 mg 01/16/21 00:35 Acetaminophen Supp 650 Mg Supp.Rect [place] Q6H PRN Pain, Mild (Pain Scale 1-3) Atorvastatin Calcium 10 mg 01/16/21 21:00 01/16/21 19:59 Atorvastatin Calcium 10 Mg Tablet PO 10 mg BEDTIME [place] Administration Benztropine Mesylate 0.5 mg 01/16/21 09:00 01/17/21 08:39 Benztropine Mesylate 0.5 Mg Tablet PO 0.5 mg BID [place] Administration Clozapine 100 mg 01/16/21 09:00 01/17/21 08:39 Clozapine 100 Mg Tablet PO 100 mg DAILY [place] Administration Clozapine 300 mg 01/16/21 21:00 01/16/21 20:00 Clozapine 100 Mg Tablet PO 300 mg BEDTIME [place] Administration Docusate Sodium 100 mg 01/16/21 09:00 01/17/21 08:39 Docusate Sodium 100 Mg Capsule PO 100 mg BID [place] Administration Gabapentin 300 mg 01/16/21 21:00 01/16/21 19:59 Gabapentin 300 Mg Capsule PO 300 mg BEDTIME [facility] Administration Heparin Sodium (Porcine) 5,000 unit 01/16/21 01:00 01/17/21 08:39 Heparin Sodium,Porcine 5,000 Unit/Ml Vial SUBCUT 5,000 unit Q8H [place] Administration Hydroxyzine HCl 50 mg 01/16/21 00:35 01/17/21 04:14 Hydroxyzine Hcl 50 Mg Tablet PO 50 mg TID PRN Administration Anxiety Insulin Glargine 20 unit 01/16/21 09:00 01/17/21 08:39 Insulin Glargine,Hum.Rec.Anlog 100 Unit/Ml 10 Ml Vial SUBCUT 20 unit DAILY [place] Administration Insulin Human Lispro 0 unit 01/16/21 07:30 01/17/21 07:45 Insulin Lispro 100 Unit/Ml 3 Ml Vial SUBCUT Not Given QIDACHS [facility] Protocol Lactulose 30 gm 01/16/21 21:00 01/17/21 08:40 Lactulose 20 Gm/30 Ml Solution PO 30 gm BID [place] Administration Morphine Sulfate 4 mg 01/16/21 00:35 Morphine Sulfate 4 Mg/Ml Cartridge IVPUSH Q4H PRN Pain, Severe (Pain Scale 7-10) Omeprazole 40 mg 01/17/21 07:40 01/17/21 08:39 Omeprazole 40 Mg Capsule.Dr PO 40 mg DAILY@0630 [place] Administration Ondansetron HCl 4 mg 01/16/21 00:35 Ondansetron Hcl 4 Mg/2 Ml Vial IVPUSH Q8H PRN Nausea and Vomiting Pharmacy Consult 1 each 01/15/21 21:54 Consult Rx Perform Med Rec MISCELLANE ONCE PRN Consult order Polyethylene Glycol 17 gm 01/16/21 09:00 01/17/21 08:39 Polyethylene Glycol 3350 17 Gm Powd.Pack PO 17 gm DAILY [place] Administration Sodium Chloride 3 ml 01/16/21 08:00 01/17/21 08:39 0.9 % Sodium Chloride Flush 3 Ml Syringe IVFLUSH 3 ml QSHIFT [place] Administration Vitamin D 25 mcg 01/16/21 09:00 01/17/21 08:39 Cholecalciferol (Vitamin D3) 25 Mcg Tablet PO 25 mcg DAILY [place] Administration Labs CBC & Chem 7: 01/17/21 07:53 01/17/21 07:53 Microbiology Microbiology Results: Microbiology 01/15/21 21:47 Blood - Venous Blood Culture - Preliminary No growth after 24 hours. 01/15/21 21:47 Blood - Venous Blood Culture - Preliminary No growth after 24 hours. Assessment and Plan (1) Bowel obstruction: Status: Acute (2) REOL (acute kidney injury): Status: Acute (3) Constipation: Status: Acute (4) Hypotension: Status: Acute Assessment and Plan: 60-year-old male with past medical history as mentioned above who presents to the hospital with complaints of abdominal pain found to have small-bowel obstruction/ileus small-bowel obstruction/ileus Likely secondary to chronic constipation Improving Continue lactulose and Colace Surgery input appreciated, no intervention needed, better diet control Started on liquid ROEL Resolving 2/2 dehydration hold nephrotoxic meds ( lasix) follow BMP hypotension secondary to dehydration Resolving Discontinue IV fluids diabetes hold metformin low-dose sliding scale insulin DVT prophylaxis Heparin subQ
[2021-01-17 11:18] LABS: Glucose, Whole Blood 116 mg/dL (60-115)
[2021-01-17 11:25] VITALS: BP 125/86; PULSE 84; RESP 16; TEMP 36.1; O2SAT 97
[2021-01-17 15:21] VITALS: BP 115/75; PULSE 76; RESP 16; TEMP 36.3; O2SAT 98
[2021-01-17 15:59] LABS: Glucose, Whole Blood 83 mg/dL (60-115)
[2021-01-17 19:20] VITALS: BP 141/92; PULSE 74; RESP 14; TEMP 35.9; O2SAT 99
[2021-01-17 20:57] LABS: Glucose, Whole Blood 72 mg/dL (60-115)
[2021-01-17] MEDS: Gabapentin 300 MG CAPSULE PO (21:30)
[2021-01-17] MEDS: Atorvastatin Calcium 10 MG TABLET PO (21:30)
[2021-01-17] MEDS: cloZAPine 100 MG TABLET 300 MG PO (21:31)
[2021-01-17 23:54] VITALS: BP 119/66; PULSE 76; RESP 18; TEMP 37; O2SAT 95
[2021-01-18] MEDS: Acetaminophen 325 MG TABLET 650 MG PO (00:04)
[2021-01-18] MEDS: Heparin Sodium,Porcine 5,000 UNIT/ML VIAL 5000 UNIT SUBCUT ×2 (00:04→08:16)
[2021-01-18] MEDS: hydrOXYzine HCL 50 MG TABLET PO (00:05)
[2021-01-18 03:00] VITALS: BP 122/70; PULSE 74; RESP 18; TEMP 36.6; O2SAT 96
[2021-01-18] MEDS: Omeprazole 40 MG CAPSULE.DR PO (05:35)
[2021-01-18 07:38] LABS: Anion Gap 12 (12-20); Blood Urea Nitrogen 14 mg/dL (9-16); Calcium 8.9 mg/dL (8.4-10.2); Carbon Dioxide 23 mmol/L (22-29); Chloride 110 mmol/L (96-108); Creatinine Clr Calc Pharmacy 99.1; Estimated Glomerular Filt Rate > 60; Glucose Random 97 mg/dL (60-115); Potassium 3.9 mmol/L (3.3-5.1); Sodium 141 mmol/L (135-145)
[2021-01-18 07:52] LABS: Glucose, Whole Blood 111 mg/dL (60-115)
[2021-01-18 08:00] VITALS: BP 115/68; PULSE 75; RESP 17; TEMP 37.1; O2SAT 97
[2021-01-18] MEDS: Benztropine Mesylate 0.5 MG TABLET PO (08:15)
[2021-01-18] MEDS: Cholecalciferol (Vitamin D3) 25 MCG TABLET PO (08:15)
[2021-01-18] MEDS: Docusate Sodium 100 MG CAPSULE PO (08:15)
[2021-01-18] MEDS: cloZAPine 100 MG TABLET PO (08:15)
[2021-01-18] MEDS: Lactulose 20 GM/30 ML SOLUTION 30 GM PO (08:16)
[2021-01-18] MEDS: Insulin Glargine,Hum.rec.anlog 100 UNIT/ML 10 ML VIAL 20 UNIT SUBCUT (08:16)
[2021-01-18] MEDS: polyethylene glycoL 3350 17 GM POWD.PACK PO (08:16)
[2021-01-18] MEDS: 0.9 % Sodium Chloride Flush 3 ML SYRINGE IVFLUSH (08:17)
--- NOTE | 2021-01-18 11:15 | P.DS_ITS ---
DS: Providers Provider Date of Service: 01/18/21 Date of admission: 01/16/21 00:21 Primary care physician: Luis Manuel Garcia MD Consults: 01/16/21 00:35 Consult to General Surgery Routine Consulting Provider: Moon Morales Reason for consultation: SBO Has provider been notified: No DS: Diagnosis Discharge Diagnosis (1) Bowel obstruction: Status: Acute (2) ROEL (acute kidney injury): Status: Acute (3) Constipation: Status: Acute (4) Hypotension: Status: Acute DS: Medications Discharge Medications Home Medications: Home Medications Medication Instructions Recorded Confirmed clozapine 100 mg tablet 100 mg PO DAILY tab 05/14/20 01/15/21 omega 7-auv-rnp-fish oil 1,200 mg 1 cap PO BID cap 05/14/20 01/15/21 (144 mg-216 mg) capsule clozapine 300 mg PO BEDTIME 07/25/20 01/15/21 hydroxyzine pamoate 50 mg capsule 50 mg PO TID PRN 09/18/20 01/15/21 lactulose 10 gram/15 mL oral 30 ml PO BID ml 01/07/21 01/15/21 solution Linzess 145 mcg PO DAILY 01/15/21 01/15/21 Trulicity 1.5 mg SUBCUT TH 01/15/21 01/15/21 atorvastatin [Lipitor] 10 mg PO BEDTIME 01/15/21 01/15/21 benztropine 1 tab PO BID 01/15/21 01/15/21 Previous Rx's Medication Instructions Recorded cholecalciferol (vitamin D3) 25 25 mcg PO DAILY #90 cap 06/18/20 mcg (1,000 unit) capsule metformin 500 mg tablet 1,000 mg PO BID 90 Days #360 tab 08/18/20 ibuprofen 800 mg tablet 800 mg PO Q8H PRN 30 Days #90 tab 09/28/20 insulin degludec 200 unit/mL (3 38 unit SUBCUT DAILY 90 Days #18 ml 10/16/20 mL) subcutaneous pen furosemide 20 mg tablet 20 mg PO DAILY #30 tab 10/29/20 gabapentin 300 mg capsule 300 mg PO BEDTIME #30 cap 11/20/20 docusate sodium 100 mg PO BID #60 cap 01/18/21 lancets 28 gauge #100 ea 01/18/21 polyethylene glycol 3350 17 g PO DAILY #30 ea 01/18/21 psyllium husk (aspartame) 2 packet PO BEDTIME #60 ea 01/18/21 [Metamucil Fiber Singles] DS: Summary Hospital Course Hospital Course: Admission note HPI 60-year-old male with past medical history of CKD, HTN, diabetes, HLD, morbid obesity, schizoaffective schizophrenia, who presents to hospital with complaints of abdominal pain. Patient reports that he came home in the afternoon, had food, then developed abdominal pain, diffuse, 10/10, associated with nausea with no vomiting, non radiating, no exacerbating or relieving factors, reports that he has been constipated and was taking lactulose but developed significant diarrhea few days ago and therefore he stopped taking that and has been constipated since. He reports that he moved small hard bowel today but has not been moving any gas. Denies any chest pain, shortness of breath, no palpitations, no headache or change in vision, no urinary symptoms and no lower extremity edema. No numbness tingling. The Patient found to have temp of 97.8?, heart rate of 95, respiratory rate of 18, blood pressure of 70/42, satting 95% on room air. Patient received 4 L of fluid with blood pressure improving to 100/66 Lab significant for WBC count of 13.2, hemoglobin of 15, BUN of 25, creatinine of 1.85, ALT of 80, AST of 163 (chronically elevated), UA negative. Hypovolemia with silk like IVC without evidence of intra-abdominal or pelvic hemorrhage, large stool burden throughout the colon with dilatation of small bowel present without a clear-cut obstruction lesion or transition zone. Small- bowel obstruction versus ileus GI consult, recommended given patient soapsuds enema and admit for evaluation Hospital course The patient was admitted to the hospital for evaluation of abdominal pain as a CT scan of the abdomen and pelvis was concerning for possible small-bowel obstruction or ileus associated to chronic constipation high stool burden in the colon. Blood work was all consistent with mild acute kidney injury with creatinine of 1.85 from normal baseline as he was found to be hypotensive. His symptoms could be contributed to his psych medications as the goes constipation specially Benztropine. He was treated mainly with IV fluid and laxative with usage of enema which helped moving his bowels multiple times and he felt much better after that. He was able to tolerate diet well. He was seen by surgery team who did not believe the patient need any intervention and they assumed all the symptoms contributed to the constipation rather than have an actual was intestinal obstruction. The patient will be discharged home on his home medication of laxative including the lactulose. Will add MiraLax, Colace and Metamucil. To follow-up with gastroenterology clinic as outpatient as referral placed for screening colonoscopy. Time Spent with Patient Time attestation: Total time spent providing and/or coordinating discharge services: Discharge coordination time: Greater than 30 minutes Quality: Stroke Does the patient have a stroke diagnosis?: No Physical Exam Vital Signs: Vital Signs: Last Vital Signs Temp 98.7 F 01/18/21 08:00 Pulse 75 01/18/21 08:00 Resp 17 01/18/21 08:00 BP 115/68 01/18/21 08:00 Pulse Ox 97 01/18/21 08:00 Body Mass Index 36.6 Const: Other: Constitutional : Alert, oriented, not in distress Neck : Normal inspection, Supple Cardiovascular : RRR, S1 S2, no lower extremity edema Respiratory : Fair bilateral air entry, no crackles, wheezes or rhonchi Gastrointestinal: soft, lax, Normal bowel sounds, Non tender Skin : Warm/Dry, No rash Neurological : Alert & oriented x3, No focal deficit DS: Data Data Completed and Pending Labs on day of discharge: Laboratory Results - last 24 hr 01/17/21 01/17/21 01/17/21 11:04 15:50 20:41 Sodium Potassium Chloride Carbon Dioxide Anion Gap BUN Creatinine Estim Creat Clear Calc Estimated GFR POC Glucose 116 H 83 72 Random Glucose Calcium 01/18/21 01/18/21 06:35 07:23 Sodium 141 Potassium 3.9 Chloride 110 H Carbon Dioxide 23 Anion Gap 12 BUN 14 Creatinine 1.13 Estim Creat Clear Calc 99.1 Estimated GFR > 60 POC Glucose 111 Random Glucose 97 Calcium 8.9 Preliminary micro results at discharge 01/15/21 21:47 Blood Culture - Preliminary Blood - Venous No growth after 48 hours. 01/15/21 21:47 Blood Culture - Preliminary Blood - Venous No growth after [address] abdomen and pelvis IMPRESSION: 1. Patient appears hypovolemic with slitlike IVC without evidence of intra-abdominal or pelvic hemorrhage. 2. Large stool burden throughout the colon but colonic dilatation is improved when compared to the prior study. There is now dilatation of small bowel present without a clearcut obstructing lesion or transition zone. Early small bowel obstruction versus ileus. Discharge Plan Discharge Patient Disposition: Home, Self-Care Discharge Diagnosis: Chronic constipation Dehydration Acute kidney injury Referrals: Luis Manuel Garcia MD [Primary Care Provider] - 1 Week Oliver Santiago MD [Physician] - 2 Weeks (For 1st screening colonoscopy given hx of chronic constipation. ) Discharge Medications: New docusate sodium 100 mg Capsule 100 mg PO BID Qty: 60 RF: 1 polyethylene glycol 3350 17 gram Powder In Packet 17 g PO DAILY Qty: 30 RF: 1 Metamucil Fiber Singles 3.4 gram Powder In Packet 2 packet PO BEDTIME Qty: 60 RF: 1 Continued cholecalciferol (vitamin D3) 25 mcg (1,000 unit) capsule 25 mcg PO DAILY Qty: 90 RF: 12 metformin 500 mg tablet 1,000 mg PO BID 90 Days Qty: 360 RF: 1 ibuprofen 800 mg tablet 800 mg PO Q8H PRN (Reason: pain) 30 Days Qty: 90 RF: 1 furosemide 20 mg tablet 20 mg PO DAILY Qty: 30 RF: 2 gabapentin 300 mg capsule 300 mg PO BEDTIME Qty: 30 RF: 2 lactulose 10 gram/15 mL solution 30 ml PO BID RF: 0 (DME) lancets 28 gauge misc See Rx Instructions .ROUTE .MEDSUPPLY Qty: 100 RF: 5 clozapine 100 mg tablet 300 mg PO BEDTIME RF: 0 benztropine 0.5 mg tablet 1 tab PO BID RF: 0 atorvastatin [Lipitor] 10 mg tablet 10 mg PO BEDTIME RF: 0 Linzess 145 mcg capsule 145 mcg PO DAILY RF: 0 Trulicity 1.5 mg/0.5 mL pen injector 1.5 mg subcut TH RF: 0 omega 9-jot-zja-fish oil [Fish Oil] 1,200 (144-216) mg capsule 1 cap PO BID RF: 0 clozapine 100 mg tablet 100 mg PO DAILY RF: 0 hydroxyzine pamoate 50 mg capsule 50 mg PO TID PRN (Reason: Anxiety) RF: 0 Tresiba FlexTouch U-200 200 unit/mL (3 mL) insulin pen 38 unit subcut DAILY 90 Days Qty: 18 RF: 1 Discharge Orders: Discharge Order (Routine); Ordered 01/18/21 Ordered By: Ronit Chavis Diet: advance to usual diet Activity on Discharge: As tolerated Stand Alone Forms: Patient Portal Discharge page Care Plan Goals: Read below Health Concerns: Read below Plan of Treatment: You were admitted to the hospital for evaluation of abdominal pain and reported constipation. Blood work showed dehydration and mild kidney injury. Images were concerning for possible obstruction of your small bowels and showed significant constipation. You were evaluated by surgical team who recommended no intervention needed. You were treated with IV fluids, enemas and laxatives with good response as you had multiple bowel movements. You were able to tolerate diet well Assessment: . To start Colace, MiraLax and fiber Continue to use lactulose at home twice daily Goal of 1-2 bowel movement today To follow-up with from Gastroenterology for outpatient colonoscopy Patient Instructions: Constipation (DC), High Fiber Diet (DC)
--- NOTE | 2021-01-18 11:43 | MHC.CM.PN ---
PT DISCHARGING TODAY HOME IF TOLERATING REGULAR DIET W/RESUMPTION OF [place] WEEKLY [facility], [place] [facility] AND [facility] CM, CM SPOKE WITH PT'S NURSE ABHINAV AT 11:30AM [phone] PER PT REQUEST. PT WILL SELF TRANSPORT.
[2021-01-18 11:51] LABS: Glucose, Whole Blood 122 mg/dL (60-115)
[2021-01-18 12:00] VITALS: BP 108/66; PULSE 87; RESP 19; TEMP 36.3; O2SAT 97
[2021-01-18 12:00] LABS: Glucose, Whole Blood 110 mg/dL (60-115)
== END 2021-01-18 13:52 | disposition home or self-care (01) | DRG 392 ==
LOC: HO.ED 01-16 00:48 → HO.EDOVER 01-16 01:17 → HO.S3 01-16 01:52
PROVIDERS: Admitting Provider Internal Medicine; Emergency Provider Student in an Organized Health Care Education/Training Program; PCP Internal Medicine; Visit Provider Student in an Organized Health Care Education/Training Program
DX: K59.03 Drug induced constipation (principal); N17.9 Acute kidney failure, unspecified; E78.5 Hyperlipidemia, unspecified; F20.9 Schizophrenia, unspecified; I95.89 Other hypotension; Z20.822 Contact with and (suspected) exposure to COVID-19; Z79.1 Long term (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 of non-steroidal anti-inflammatories (NSAID); Z79.899 Other long term (current) drug therapy; T44.3X5A Adverse effect of other parasympatholytics [anticholinergics and antimuscarinics] and spasmolytics, initial encounter; Y92.9 Unspecified place or not applicable
CPT/HCPCS: 36415; 71045; 71046; 74176; 76705; 80048; 80053; 81003; 82947; 83605; 83690; 83735; 83880; 84484; 85025; 87040; 87635; 93005; 96360; 96361; 99285

== ENCOUNTER 2021-01-23 17:01 | Emergency (ER) | payer OTHER, SELFPAY ==
[2021-01-23 18:51] VITALS: BP 129/84; PULSE 89; RESP 18; TEMP 36.6; O2SAT 98; BMI 36.6
--- NOTE | 2021-01-23 21:27 | ED_ITS ---
HPI - General Adult General Chief complaint: Dizziness Stated complaint: tiredness, dizziness Time Seen by Provider: 01/23/21 21:25 Source: patient Mode of arrival: ambulatory Limitations: no limitations History of Present Illness HPI narrative: Patient's history of CKD hypertension diabetes hyperlipidemia morbid obesity schizoaffective schizophrenia was admitted on 01/16 for fecal impaction and ROEL discharge home on 01/18 comes as he is feeling very dizzy and lightheaded started today in the afternoon. No chest pain no abdominal distension no nausea no vomiting dizziness does not change on standing or moveme nt of the neck does not feel things spinning around no fever no chills no abdominal pain Related Data Home Medications Medication Instructions Recorded Confirmed clozapine 100 mg tablet 100 mg PO DAILY tab 05/14/20 01/21/21 omega 5-xnw-dsg-fish oil 1,200 mg 1 cap PO BID cap 05/14/20 01/21/21 (144 mg-216 mg) capsule clozapine 300 mg PO BEDTIME 07/25/20 01/21/21 hydroxyzine pamoate 50 mg capsule 50 mg PO TID PRN 09/18/20 01/21/21 lactulose 10 gram/15 mL oral 30 ml PO BID ml 01/07/21 01/21/21 solution Linzess 145 mcg PO DAILY 01/15/21 01/21/21 Trulicity 1.5 mg SUBCUT TH 01/15/21 01/21/21 atorvastatin [Lipitor] 10 mg PO BEDTIME 01/15/21 01/21/21 benztropine 1 tab PO BID 01/15/21 01/21/21 flash glucose sensor #1 ea 01/20/21 01/21/21 methylcellulose (laxative) 500 mg 0 mg PO 01/20/21 01/21/21 tablet Previous Rx's Medication Instructions Recorded cholecalciferol (vitamin D3) 25 25 mcg PO DAILY #90 cap 06/18/20 mcg (1,000 unit) capsule ibuprofen 800 mg tablet 800 mg PO Q8H PRN 30 Days #90 tab 09/28/20 insulin degludec 200 unit/mL (3 38 unit SUBCUT DAILY 90 Days #18 ml 10/16/20 mL) subcutaneous pen furosemide 20 mg tablet 20 mg PO DAILY #30 tab 10/29/20 gabapentin 300 mg capsule 300 mg PO BEDTIME #30 cap 04/09/21 docusate sodium 100 mg PO BID #60 cap 01/18/21 lancets 28 gauge #100 ea 01/18/21 polyethylene glycol 3350 17 g PO DAILY #30 ea 01/18/21 psyllium husk (aspartame) 2 packet PO BEDTIME #60 ea 01/18/21 [Metamucil Fiber Singles] metformin 500 mg tablet 1,000 mg PO BID 90 Days #360 tab 01/19/21 Allergies Allergy/AdvReac Type Severity Reaction Status Date / Time No Known Allergies Allergy Verified 01/21/21 03:17 [No Known Allergies*] Review of Systems Review of Systems: Constitutional : No Weight loss, No Fever, No Chills ENT/Mouth : No sore throat, No Rhinorrhea Eyes: No Eye Pain, No Swelling Cardiovascular : No Chest Pain, no palpitations Respiratory : No Cough, No Sputum, no shortness of breath Gastrointestinal : no Nausea, No Vomiting, No Diarrhea, No abdominal Pain, no bl ack stools Genitourinary : No Dysuria, No Urinary Frequency Musculoskeletal : No joint pain, No Myalgias, No Joint Swelling Skin : No Skin Lesions, No rash Neuro : No Weakness, No Numbness, ++ Dizziness, No Headache Psych : No Anxiety/Panic, No Depression Heme/Lymph: No Bruising, No Lymphadenopathy Endocrine : No Polyuria, No Polydipsia All other systems reviewed and are negative [facility] Past Medical History 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, 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 Melena Morbid obesity Obesity (BMI 30-39.9) Pain in both feet Pure hypercholesterolemia Right hand pain Schizo affective schizophrenia Schizoaffective disorder Type 2 diabetes mellitus with diabetic chronic kidney disease Surgical History History of repair of congenital cleft palate Hx of circumcision Family History Family History Father HTN (hypertension) Mother Diabetes Social History Social History Household Members: None Housing: Apartment Do you presently have visiting nurse or other home services: Yes Alcohol intake: current Alcohol intake frequency: holidays/special occasions only Alcohol type: beer Patient Tobacco Use Status: Never used Tobacco Second Hand Smoke Exposure: No Advance Directives: No Advance Directives Information Provided: No service: No Current occupational status: employed Current occupation: [employer] Physical Exam Vital Signs: Vital Signs: Last Vital Signs Temp 97.8 F 01/23/21 18:51 Pulse 89 01/23/21 18:51 Resp 18 01/23/21 18:51 BP 129/84 01/23/21 18:51 Pulse Ox 98 01/23/21 18:51 Body Mass Index 36.6 Appearance: Alert. Oriented X3. No acute distress. Eyes: PERRLA, No Nystagmus ENT: Pharynx normal. Oral Mucosa moist Neck: Normal inspection. Neck supple. CVS: Normal heart rate and rhythm. Pulses normal. Respiratory: No respiratory distress. Equal air entry bilateral, no wheezing/rales/rhonchi Abdomen: Soft and nontender. Bowel sounds are present, no mass palpable, no CVA tenderness Skin: Skin warm and dry. Normal skin color. Normal skin turgor. Extremities: No lower extremity edema. No calf tenderness Neuro: Oriented X 3. No motor deficit. No sensory deficit.No cerebellar signs , cranial nerves II-XII intact Medical Decision Making MDM Narrative Medical decision making narrative: Patient has nonspecific symptoms stable labs will discharge patient home Lab Data Lab results reviewed: Yes I reviewed the patient's lab results. Result diagrams: 01/23/21 22:03 01/23/21 22:03 Labs: Lab Results 01/23/21 01/23/21 Range/Units 22:03 22:03 WBC 8.5 (4.8-10.8) X10*3/uL RBC 4.87 (4.60-5.80) X10*6/uL Hgb 14.6 (14.0-18.0) g/dl Hct 40.5 L (42-52) % MCV 83.2 (80-98) fL MCH 30.0 (27.0-33.0) pg MCHC 36.0 (31.0-36.0) g/dl RDW 13.0 (11.0-16.0) % Plt Count 146 L D (160-400) X10*3/uL MPV 10.3 (9.4-12.4) fL Immature Gran % (Auto) 0.5 H (0.0-0.4) % Neut % (Auto) 67.1 (45-73) % Lymph % (Auto) 23.9 (20-40) % Lincoln % (Auto) 8.4 (2-11) % Eos % (Auto) 0.0 (0-4) % Baso % (Auto) 0.1 (0-2) % Lymph # (Auto) 2.0 (1.2-4.9) X10*3/uL [place] # (Auto) 0.7 (0.1-1.2) X10*3/uL Eos # (Auto) 0.0 (0.0-0.4) X10*3/uL Baso # (Auto) 0.0 (0.0-0.2) X10*3/uL Abs Immat Gran (auto) 0.04 H (0.00-0.03) X10*3/uL Absolute Neuts (auto) 5.7 (2.0-8.3) X10*3/uL Absolute Nucleated RBC 0.000 (0.0-0.012) X10*3/uL Nucleated RBC % (auto) 0.0 (0.0-0.2) /100WBC Smear Tech's Comments VERIFIED Sodium 140 (135-145) mmol/L Potassium 4.2 (3.3-5.1) mmol/L Chloride 106 (96-108) mmol/L Carbon Dioxide 24 (22-29) mmol/L Anion Gap 14 (12-20) BUN 21 H (9-16) mg/dL Creatinine 1.26 (0.5-1.4) mg/dL Estim Creat Clear Calc 88.9 Estimated GFR 59 Random Glucose 117 H (60-115) mg/dL Calcium 9.8 D (8.4-10.2) mg/dL Total Bilirubin 0.7 (0.0-1.0) mg/dL AST 30 (5-37) U/L ALT 87 H (0-40) U/L Alkaline Phosphatase 160 H (39-117) U/L Total Protein 7.8 (6.5-8.0) g/dL Albumin 4.6 (3.5-5.0) g/dL Discharge Plan Discharge Clinical Impression: Weakness Patient Disposition: Home, Self-Care Instructions: Weakness (ED) Additional Instructions: Drink plenty of fluids Your blood workup is normal Follow with PCP if any concerns Prescriptions: No Action cholecalciferol (vitamin D3) 25 mcg (1,000 unit) capsule 25 mcg PO DAILY Qty: 90 RF: 12 ibuprofen 800 mg tablet 800 mg PO Q8H PRN (Reason: pain) 30 Days Qty: 90 RF: 1 furosemide 20 mg tablet 20 mg PO DAILY Qty: 30 RF: 2 gabapentin 300 mg capsule 300 mg PO BEDTIME Qty: 30 RF: 2 lactulose 10 gram/15 mL solution 30 ml PO BID RF: 0 (DME) lancets 28 gauge misc See Rx Instructions .ROUTE .MEDSUPPLY Qty: 100 RF: 5 metformin 500 mg tablet 1,000 mg PO BID 90 Days Qty: 360 RF: 1 clozapine 100 mg tablet 300 mg PO BEDTIME RF: 0 benztropine 0.5 mg tablet 1 tab PO BID RF: 0 atorvastatin [Lipitor] 10 mg tablet 10 mg PO BEDTIME RF: 0 Linzess 145 mcg capsule 145 mcg PO DAILY RF: 0 Trulicity 1.5 mg/0.5 mL pen injector 1.5 mg subcut TH RF: 0 docusate sodium 100 mg Capsule 100 mg PO BID Qty: 60 RF: 1 polyethylene glycol 3350 17 gram Powder In Packet 17 g PO DAILY Qty: 30 RF: 1 Metamucil Fiber Singles 3.4 gram Powder In Packet 2 packet PO BEDTIME Qty: 60 RF: 1 (DME) FreeStyle Jody 14 Day Sensor Kit See Rx Instructions ea topical Q2W Qty: 1 RF: 0 Fiber Therapy (m-cellulose) 500 mg tablet 0 mg PO RF: 0 omega 5-hzp-sjl-fish oil [Fish Oil] 1,200 (144-216) mg capsule 1 cap PO BID RF: 0 clozapine 100 mg tablet 100 mg PO DAILY RF: 0 hydroxyzine pamoate 50 mg capsule 50 mg PO TID PRN (Reason: Anxiety) RF: 0 Tresiba FlexTouch U-200 200 unit/mL (3 mL) insulin pen 38 unit subcut DAILY 90 Days Qty: 18 RF: 1
[2021-01-23 22:10] LABS: Basophils Percent Auto 0.1 % (0-2); Hemoglobin 14.6 g/dl (14.0-18.0); MANUAL DIFF FLAG SCAN; Mean Corpuscular Volume 83.2 fL (80-98); Monocytes Percent Auto 8.4 % (2-11); PLT CLUMP 1; SCAN SMEAR FLAG 1
[2021-01-23 22:12] LABS: Hematocrit 40.5 % (42-52); Imm Gran Abs Auto 0.04 X10*3/uL (0.00-0.03); Imm Gran Pct Auto 0.5 % (0.0-0.4); Lymphocytes Percent Auto 23.9 % (20-40); Mean Platelet Volume 10.3 fL (9.4-12.4); Monocytes Absolute Auto 0.7 X10*3/uL (0.1-1.2); Neutrophils Absolute Auto 5.7 X10*3/uL (2.0-8.3); Neutrophils Percent Auto 67.1 % (45-73); Platelet Count 146 X10*3/uL (160-400); Red Blood Count 4.87 X10*6/uL (4.60-5.80); White Blood Count 8.5 X10*3/uL (4.8-10.8)
[2021-01-23 22:31] LABS: SLIDE REVIEW VERIFIED
[2021-01-23 22:43] LABS: Alanine Aminotransferase 87 U/L (0-40); Albumin Level 4.6 g/dL (3.5-5.0); Alkaline Phosphatase 160 U/L (39-117); Anion Gap 14 (12-20); Aspartate Amino Transferase 30 U/L (5-37); Bilirubin Total 0.7 mg/dL (0.0-1.0); Blood Urea Nitrogen 21 mg/dL (9-16); Calcium 9.8 mg/dL (8.4-10.2); Carbon Dioxide 24 mmol/L (22-29); Chloride 106 mmol/L (96-108); Creatinine Clr Calc Pharmacy 88.9; Estimated Glomerular Filt Rate 59; Glucose Random 117 mg/dL (60-115); Potassium 4.2 mmol/L (3.3-5.1); Sodium 140 mmol/L (135-145); Total Protein 7.8 g/dL (6.5-8.0)
== END 2021-01-23 23:49 | disposition home or self-care (01) ==
PROVIDERS: Emergency Provider Internal Medicine; PCP Internal Medicine
DX: R53.1 Weakness (principal); R42 Dizziness and giddiness; E11.22 Type 2 diabetes mellitus with diabetic chronic kidney disease; I12.9 Hypertensive chronic kidney disease with stage 1 through stage 4 chronic kidney disease, or unspecified chronic kidney disease; N18.9 Chronic kidney disease, unspecified; E78.5 Hyperlipidemia, unspecified; Z79.02 Long term (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 of antithrombotics/antiplatelets; Z79.899 Other long term (current) drug therapy
CPT/HCPCS: 36415; 80053; 85025; 99283

== ENCOUNTER 2021-01-28 11:46 | Outpatient (REF) | payer OTHER, SELFPAY ==
[2021-01-28 12:35] LABS: MANUAL DIFF FLAG NO
[2021-01-28 12:43] LABS: Basophils Percent Auto 0.1 % (0-2); Hematocrit 38.5 % (42-52); Hemoglobin 13.7 g/dl (14.0-18.0); Imm Gran Abs Auto 0.04 X10*3/uL (0.00-0.03); Imm Gran Pct Auto 0.5 % (0.0-0.4); Lymphocytes Absolute Auto 1.5 X10*3/uL (1.2-4.9); Lymphocytes Percent Auto 19.1 % (20-40); Mean Corpuscular HGB Conc 35.6 g/dl (31.0-36.0); Mean Corpuscular Hemoglobin 29.7 pg (27.0-33.0); Mean Corpuscular Volume 83.3 fL (80-98); Mean Platelet Volume 10.3 fL (9.4-12.4); Monocytes Absolute Auto 0.5 X10*3/uL (0.1-1.2); Monocytes Percent Auto 6.8 % (2-11); Neutrophils Absolute Auto 5.7 X10*3/uL (2.0-8.3); Neutrophils Percent Auto 73.5 % (45-73); Platelet Count 142 X10*3/uL (160-400); Red Blood Count 4.62 X10*6/uL (4.60-5.80); Red Cell Distribution Width 13.1 % (11.0-16.0); White Blood Count 7.7 X10*3/uL (4.8-10.8)
== END 2021-01-28 11:47 | disposition home or self-care (01) ==
LOC: HO.LABR 11:46
PROVIDERS: PCP Internal Medicine; Visit Provider Psychiatry & Neurology Psychiatry
DX: Z79.899 Other long term (current) drug therapy (principal)
CPT/HCPCS: 36415; 85025

== ENCOUNTER 2021-02-17 07:38 | Outpatient (REF) | payer OTHER, SELFPAY ==
[2021-02-17 08:16] LABS: Red Cell Distribution Width 13.2 % (11.0-16.0)
[2021-02-17 08:18] LABS: Basophils Percent Auto 0.1 % (0-2); Hemoglobin 14.4 g/dl (14.0-18.0); Imm Gran Abs Auto 0.04 X10*3/uL (0.00-0.03); Imm Gran Pct Auto 0.5 % (0.0-0.4); Lymphocytes Absolute Auto 1.4 X10*3/uL (1.2-4.9); Lymphocytes Percent Auto 16.9 % (20-40); Mean Corpuscular HGB Conc 35.1 g/dl (31.0-36.0); Mean Corpuscular Hemoglobin 29.7 pg (27.0-33.0); Mean Corpuscular Volume 84.5 fL (80-98); Mean Platelet Volume 10.5 fL (9.4-12.4); Monocytes Absolute Auto 0.6 X10*3/uL (0.1-1.2); Monocytes Percent Auto 7.5 % (2-11); Neutrophils Absolute Auto 6.3 X10*3/uL (2.0-8.3); Platelet Count 128 X10*3/uL (160-400); Red Blood Count 4.85 X10*6/uL (4.60-5.80); White Blood Count 8.4 X10*3/uL (4.8-10.8)
[2021-02-17 08:21] LABS: MANUAL DIFF FLAG NO
== END 2021-02-17 07:39 | disposition home or self-care (01) ==
LOC: HO.LABR 07:38
PROVIDERS: PCP Internal Medicine; Visit Provider Psychiatry & Neurology Psychiatry
DX: Z79.899 Other long term (current) drug therapy (principal)
CPT/HCPCS: 36415; 85025

== ENCOUNTER → 2021-02-19 10:26 | Outpatient (BNVA) | payer OTHER, SELFPAY | PROVIDERS: PCP Internal Medicine; Visit Provider Internal Medicine Endocrinology, Diabetes & Metabolism | DX: E11.22 Type 2 diabetes mellitus with diabetic chronic kidney disease (principal); N18.30 Chronic kidney disease, stage 3 unspecified; E11.649 Type 2 diabetes mellitus with hypoglycemia without coma; E11.42 Type 2 diabetes mellitus with diabetic polyneuropathy; E66.01 Morbid (severe) obesity due to excess calories; E78.00 Pure hypercholesterolemia, unspecified; Z79.4 Long term (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 | CPT/HCPCS: Q3014 ==

== ENCOUNTER 2021-02-19 15:17 | Emergency (ER) | payer OTHER, SELFPAY ==
--- NOTE | ~2021-02-19 | XR_ITS ---
EXAMINATION: XR ABDOMEN CLINICAL INFORMATION: Evaluate stool burden. COMPARISON: None TECHNIQUE: Frontal view. FINDINGS: There is increased amount of stool projecting over the distribution of the colon raising suspicion for constipation. There is no evidence of bowel obstruction, however. There is no evidence of abnormal calcifications. There is no acute skeletal structure changes. There is no evidence of small-bowel obstruction. There is no free air in the abdomen. XR/XR KUB IMPRESSION: Increased amount of stool in the colon suggesting constipation. Please correlate with clinical presentation.
[2021-02-19 15:25] VITALS: BP 116/76; PULSE 91; RESP 16; TEMP 36.3; O2SAT 98; BMI 36.5
--- NOTE | 2021-02-19 16:52 | ED.GENADULT ---
HPI - General Adult General Chief complaint: General Medical Stated complaint: Constipation Time Seen by Provider: 02/19/21 16:33 Source: patient Mode of arrival: ambulatory Limitations: no limitations History of Present Illness HPI narrative: 60-year-old male with a past medical history of CKD, hypertension, diabetes, hyperlipidemia, morbid obesity, schizoaffective schizophrenia, chronic constipation and IBS here with complaints of constipation for the last several days. The patient does take MiraLax once daily, Colace b.i.d., lactulose b.i.d., Metamucil at bedside and enema p.r.n.. Patient tells me that he has not had a bowel movement in 2 days and feels like he has some rectal pressure and the urge to move his bowels. He denies any abdominal pain, vomiting, fevers, chills. He does have an enema but has not been instructed on how to use it and so he brought with him today. Note the patient was admitted on January 16 for possible small-bowel obstruction versus ileus which was thought to be secondary to chronic constipation and high stool burden. He was managed medically and referred to follow up with Gastroenterology.. He tells me when he was admitted then he had a lot of abdominal pain and with this current episode he has no associated abdominal pain and it feels much different. Related Data Home Medications Medication Instructions Recorded Confirmed clozapine 100 mg tablet 100 mg PO DAILY tab 05/14/20 02/19/21 omega 7-xsx-ilu-fish oil 1,200 mg 1 cap PO BID cap 05/14/20 02/19/21 (144 mg-216 mg) capsule hydroxyzine pamoate 50 mg capsule 50 mg PO TID PRN 09/18/20 02/19/21 Linzess 145 mcg PO DAILY 01/15/21 02/19/21 benztropine 1 tab PO BID 01/15/21 02/19/21 flash glucose sensor #1 ea 01/20/21 02/19/21 methylcellulose (laxative) 500 mg 0 mg PO 01/20/21 02/19/21 tablet Previous Rx's Medication Instructions Recorded cholecalciferol (vitamin D3) 25 25 mcg PO DAILY #90 cap 06/18/20 mcg (1,000 unit) capsule ibuprofen 800 mg tablet 800 mg PO Q8H PRN 30 Days #90 tab 09/28/20 docusate sodium 100 mg PO BID #60 cap 01/18/21 lancets 28 gauge #100 ea 01/18/21 polyethylene glycol 3350 17 g PO DAILY #30 ea 01/18/21 psyllium husk (aspartame) 2 packet PO BEDTIME #60 ea 01/18/21 [Metamucil Fiber Singles] furosemide 20 mg tablet 20 mg PO DAILY #30 tab 01/28/21 dulaglutide 1.5 mg/0.5 mL 1.5 mg SUBCUT QWEEK #2.5 ml 01/29/21 subcutaneous pen injector clozapine 100 mg tablet 300 mg PO BEDTIME 30 Days #90 tab 01/30/21 lactulose 10 gram/15 mL oral 30 ml PO BID #1800 ml 02/03/21 solution atorvastatin 10 mg tablet 10 mg PO DAILY #90 tab 02/16/21 gabapentin 300 mg capsule 300 mg PO BEDTIME #30 cap 02/16/21 blood sugar diagnostic #300 ea 02/19/21 flash glucose sensor #2 ea 02/19/21 insulin degludec 200 unit/mL (3 38 unit SUBCUT DAILY 90 Days #18 ml 02/19/21 mL) subcutaneous pen metformin 500 mg tablet 1,000 mg PO BID 90 Days #360 tab 02/19/21 Allergies Allergy/AdvReac Type Severity Reaction Status Date / Time No Known Allergies Allergy Verified 02/19/21 15:30 [No Known Allergies*] Review of Systems Review of Systems: Yes all other systems are reviewed and are negative Constitutional: Constitutional: Reports no additional constitutional complaints, Denies body ache(s), Denies chills, Denies fever(s), Denies headache(s) and Denies weakness Eyes: Eyes: Reports no additional eye complaints and Denies change in vision ENT: Reports system reviewed and no additional complaints, except as documented, Denies dizziness, Denies headache(s), Denies nasal congestion, Denies nasal discharge and Denies neck pain Cardiovascular: Cardiovascular: Reports no additional cardiovascular complaints, Denies chest pain, Denies leg edema and Denies dyspnea Respiratory: Respiratory: Reports no additional respiratory complaints, Denies cough and Denies dyspnea Gastrointestinal: Gastrointestinal: Reports no additional gastrointestinal complaints, Denies abdominal pain, Reports constipation, Denies diarrhea, Denies nausea and Denies vomiting Genitourinary: Genitourinary: Denies urinary incontinence Musculoskeletal: Musculoskeletal: Reports no additional musculoskeletal complaints, Denies back pain, Denies arthralgias, Denies joint swelling, Denies neck pain, Denies numbness and Denies tingling Integumentary/Breasts: Skin/Breast: Reports system reviewed and no additional complaints, except as docu and Denies rash Neurologic: Reports system reviewed and no additional complaints, except as documented, Denies Abnormal speech present, Denies dizziness, Denies headache(s), Denies numbness, Denies tingling and Denies weakness PMFSH Past Medical History Attestation statement: The following information was validated with the patient. Source: old records reviewed and nursing notes reviewed 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, bilateral senior living (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 Melena Morbid obesity Obesity (BMI 30-39.9) Pain in both feet Pure hypercholesterolemia Right hand pain Schizo affective schizophrenia Schizoaffective disorder Type 2 diabetes mellitus with diabetic chronic kidney disease Surgical History History of repair of congenital cleft palate Hx of circumcision Family History Family History Father HTN (hypertension) Mother Diabetes Social History Social History Household Members: None Housing: Apartment Do you presently have visiting nurse or other home services: Yes Alcohol intake: current Alcohol intake frequency: a few times a week Alcohol type: beer Patient Tobacco Use Status: Never used Tobacco Second Hand Smoke Exposure: No Use of substances other than those prescribed or required for medical reasons: No Advance Directives: No Advance Directives Information Provided: No service: No Current occupational status: employed Current occupation: [employer] Physical Exam Vital Signs: Vital Signs: Last Vital Signs Temp 98.4 F 02/19/21 16:54 Pulse 88 02/19/21 19:38 Resp 16 02/19/21 19:38 BP 114/73 02/19/21 19:38 Pulse Ox 98 02/19/21 19:38 Body Mass Index 36.5 Const: General: cooperative, healthy appearing, comfortable and no acute distress Orientation/consciousness: patient oriented x3 Limitations: no limitations HENMT: Head: Yes normal to inspection Ears: hearing grossly normal bilaterally General nose exam: Normal external nose present Face and sinus: Yes normal facial exam Mouth: Normal oral and palatal mucosa present Throat: Yes posterior oropharynx normal Eyes: General: appearance normal, both eyes and all related structures Pupils: Equal, round and reactive pupils present Neck: Neck: Yes normal visual inspection Chest: Chest palpation & inspection: normal inspection of the chest Resp: Effort & Inspection: normal respiratory effort Auscultation: clear to auscultation bilaterally Cardio: Rate: regular rate Rhythm: regular rhythm Peripheral pulses: Peripheral pulses 2+ throughout GI: Inspection: Yes normal to inspection Palpation (GI): Soft to palpation and nontender Auscultation: normal bowel sounds Rectal Exam - Male: Yes visual inspection normal, Yes normal sphincter tone and No fecal impaction Back/Spine/Pelvis: Thoracic/Lumbar Spine: thoracic and lumbar spine normal to inspection Skin: General skin exam: no rashes or lesions noted Neuro: General: patient oriented x3, no focal motor deficits and normal sensation to monofilament Cranial nerves: Yes Equal, round and reactive pupils present Cognition (Neuro): normal cognition Speech: No Abnormal speech present Gait exam (Neuro): Normal gait present Motor exam (neuro): 5/5 motor strength present throughout Extrem: General: Yes normal to inspection Course Course Course Narrative: 60-year-old male here with complaints of constipation x2 days with no reports of vomiting or abdominal pain despite taking his home medications for constipation. His abdomen is soft and nontender. His rectal exam was not consistent with any fecal impaction. He is hemodynamically stable. Will check KUB to eval stool bladder [id number]-x-ray shows large amounts of stool but no obvious dilated bowel loops or obstruction. Will give soapsuds enema 1899-patient had a very large bowel movement and is feeling much improved. He is on multiple modalities for constipation. We did discuss some dietary changes and increasing his dose of MiraLax from once daily to twice daily. We also discussed using the enemas at home which she has been prescribed. Reviewed worrisome signs and symptoms and when to return to the emergency department. Comfortable discharge home. Medical Decision Making Medical Records Medical records reviewed: Yes I reviewed the patient's medical records. Lab Data Lab results reviewed: Yes I reviewed the patient's lab results. Imaging Data Abdominal x-ray: Attestation: I personally reviewed and interpreted this imaging study as follows: Radiologist's impression: [address] [id number] ReportSigned Patient: Hema Cornejo#: [id number]: 1960Acct:[id number]/Sex: 60 / MADM Date: 02/19/21Loc: HO.EDAttending Dr: Ordering Physician: CELIA COLLAZO NP Date of Service: 02/19/21 Procedure(s): XR KUB Accession Number(s): [id number] cc: CELIA COLLAZO NP~ EXAMINATION: XR ABDOMEN CLINICAL INFORMATION: Evaluate stool burden. COMPARISON: None TECHNIQUE: Frontal view. FINDINGS: There is increased amount of stool projecting over the distribution of the colon raising suspicion for constipation. There is no evidence of bowel obstruction, however. There is no evidence of abnormal calcifications. There is no acute skeletal structure changes. There is no evidence of small-bowel obstruction. There is no free air in the abdomen. XR/XR KUB IMPRESSION: Increased amount of stool in the colon suggesting constipation. Please correlate with clinical presentation. Discharge Plan Discharge Clinical Impression: Chronic idiopathic constipation Patient Disposition: Home, Self-Care Instructions: Constipation (ED) Additional Instructions: Continue your medications. Increase her MiraLax to twice daily Use a Fleet enema as needed Increase fluid and fiber in diet Follow-up with your clerical support Prescriptions: No Action cholecalciferol (vitamin D3) 25 mcg (1,000 unit) capsule 25 mcg PO DAILY Qty: 90 RF: 12 ibuprofen 800 mg tablet 800 mg PO Q8H PRN (Reason: pain) 30 Days Qty: 90 RF: 1 (DME) lancets 28 gauge misc See Rx Instructions .ROUTE .MEDSUPPLY Qty: 100 RF: 5 furosemide 20 mg tablet 20 mg PO DAILY Qty: 30 RF: 3 dulaglutide [Trulicity] 1.5 mg/0.5 mL pen injector 1.5 mg subcut QWEEK Qty: 2.5 RF: 4 Hold Instructions: Doctor's Order clozapine 100 mg tablet 300 mg PO BEDTIME 30 Days Qty: 90 RF: 0 lactulose 10 gram/15 mL solution 30 ml PO BID Qty: 1800 RF: 1 atorvastatin 10 mg tablet 10 mg PO DAILY Qty: 90 RF: 1 gabapentin 300 mg capsule 300 mg PO BEDTIME Qty: 30 RF: 2 benztropine 0.5 mg tablet 1 tab PO BID RF: 0 Linzess 145 mcg capsule 145 mcg PO DAILY RF: 0 docusate sodium 100 mg Capsule 100 mg PO BID Qty: 60 RF: 1 polyethylene glycol 3350 17 gram Powder In Packet 17 g PO DAILY Qty: 30 RF: 1 Metamucil Fiber Singles 3.4 gram Powder In Packet 2 packet PO BEDTIME Qty: 60 RF: 1 (DME) FreeStyle Jody 14 Day Sensor Kit See Rx Instructions ea topical Q2W Qty: 1 RF: 0 Fiber Therapy (m-cellulose) 500 mg tablet 0 mg PO RF: 0 omega 1-pmg-pvq-fish oil [Fish Oil] 1,200 (144-216) mg capsule 1 cap PO BID RF: 0 clozapine 100 mg tablet 100 mg PO DAILY RF: 0 hydroxyzine pamoate 50 mg capsule 50 mg PO TID PRN (Reason: Anxiety) RF: 0 (DME) FreeStyle Lite Strips Strip See Rx Instructions .MEDSUPPLY Qty: 300 RF: 2 (DME) FreeStyle Jody 14 Day Sensor Kit See Rx Instructions .ROUTE .MEDSUPPLY Qty: 2 RF: 7 Tresiba FlexTouch U-200 200 unit/mL (3 mL) insulin pen 38 unit subcut DAILY 90 Days Qty: 18 RF: 1 metformin 500 mg tablet 1,000 mg PO BID 90 Days Qty: 360 RF: 1 Referrals: Luis Manuel Garcia MD [Primary Care Provider] - 2 days Vickie Ponce MD [Physician] - 2 days Interventions: ED Discharge Assessment Last Done: 02/19/21 19:40 Discharge Date/Time: 02/19/21 19:41
[2021-02-19 16:54] VITALS: BP 102/78; PULSE 85; TEMP 36.9; O2SAT 97
[2021-02-19 19:38] VITALS: BP 114/73; PULSE 88; RESP 16; O2SAT 98
== END 2021-02-19 19:41 | disposition home or self-care (01) ==
PROVIDERS: Emergency Provider Internal Medicine; PCP Internal Medicine
DX: K59.04 Chronic idiopathic constipation (principal); I12.9 Hypertensive chronic kidney disease with stage 1 through stage 4 chronic kidney disease, or unspecified chronic kidney disease; E11.22 Type 2 diabetes mellitus with diabetic chronic kidney disease; N18.30 Chronic kidney disease, stage 3 unspecified; Z79.4 Long term (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; Z79.899 Other long term (current) drug therapy
CPT/HCPCS: 74018; 99284

== ENCOUNTER → 2021-02-23 10:52 | Outpatient (BNVA) | payer OTHER, SELFPAY | PROVIDERS: PCP Internal Medicine; Visit Provider Dietitian, Registered | DX: E11.42 Type 2 diabetes mellitus with diabetic polyneuropathy (principal); E66.01 Morbid (severe) obesity due to excess calories; Z68.37 Body mass index [BMI] 37.0-37.9, adult; Z79.4 Long term (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 | CPT/HCPCS: 97803 ==

== ENCOUNTER 2021-02-24 08:36 | Outpatient (REF) | payer OTHER, SELFPAY ==
[2021-02-24 09:16] LABS: MANUAL DIFF FLAG NO
[2021-02-24 09:20] LABS: Basophils Percent Auto 0.1 % (0-2); Hematocrit 41.6 % (42-52); Hemoglobin 14.7 g/dl (14.0-18.0); Imm Gran Abs Auto 0.05 X10*3/uL (0.00-0.03); Imm Gran Pct Auto 0.6 % (0.0-0.4); Lymphocytes Absolute Auto 1.4 X10*3/uL (1.2-4.9); Mean Corpuscular HGB Conc 35.3 g/dl (31.0-36.0); Mean Corpuscular Hemoglobin 29.7 pg (27.0-33.0); Mean Platelet Volume 10.6 fL (9.4-12.4); Monocytes Absolute Auto 0.5 X10*3/uL (0.1-1.2); Monocytes Percent Auto 6.3 % (2-11); Platelet Count 131 X10*3/uL (160-400); Red Blood Count 4.95 X10*6/uL (4.60-5.80); Red Cell Distribution Width 12.9 % (11.0-16.0); White Blood Count 7.9 X10*3/uL (4.8-10.8)
[2021-02-24 09:42] LABS: Alanine Aminotransferase 81 U/L (0-40); Albumin Level 4.4 g/dL (3.5-5.0); Alkaline Phosphatase 187 U/L (39-117); Anion Gap 15 (12-20); Aspartate Amino Transferase 31 U/L (5-37); Bilirubin Total 0.7 mg/dL (0.0-1.0); Blood Urea Nitrogen 18 mg/dL (9-16); Calcium 10.1 mg/dL (8.4-10.2); Carbon Dioxide 23 mmol/L (22-29); Chloride 107 mmol/L (96-108); Cholesterol 142 mg/dL; Estimated Glomerular Filt Rate > 60; Glucose Fasting 224 mg/dL (60-99); HDL Cholesterol 29 mg/dL; LDL Cholesterol Calculated 67 mg/dl; Potassium 4.3 mmol/L (3.3-5.1); Sodium 141 mmol/L (135-145); Total Protein 7.6 g/dL (6.5-8.0); Triglycerides 231 mg/dL
[2021-02-24 10:04] LABS: Glucose Urine UA NEG (NEG); Leukocyte Esterase Urine NEG (NEG); Nitrite Urine NEG (NEG); Urine Blood NEG (NEG); Urine Ketones NEG (NEG); Urine Protein NEG (NEG-TRACE)
[2021-02-24 10:05] LABS: Appearance Urine CLEAR; Color Urine YELLOW
[2021-02-24 10:06] LABS: TSH reflex Free T4 1.72 uIU/mL (0.32-4.0)
[2021-02-24 10:44] LABS: Creatinine Urine 55.12 mg/dL; Microalbumin Urine < 5.0 mg/L
== END 2021-02-24 08:37 | disposition home or self-care (01) ==
LOC: HO.LAB 08:36
PROVIDERS: PCP Internal Medicine; Visit Provider Internal Medicine
DX: I12.9 Hypertensive chronic kidney disease with stage 1 through stage 4 chronic kidney disease, or unspecified chronic kidney disease (principal); N18.30 Chronic kidney disease, stage 3 unspecified; E11.22 Type 2 diabetes mellitus with diabetic chronic kidney disease; K59.00 Constipation, unspecified; E66.9 Obesity, unspecified; E78.00 Pure hypercholesterolemia, unspecified; Z79.4 Long term (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
CPT/HCPCS: 36415; 80053; 80061; 81003; 82043; 84443; 85025

== ENCOUNTER → 2021-02-26 11:10 | Outpatient (BNVA) | payer OTHER, SELFPAY | PROVIDERS: Referring Provider Internal Medicine; Visit Provider Nurse Practitioner | DX: K59.04 Chronic idiopathic constipation (principal); E66.01 Morbid (severe) obesity due to excess calories; Z68.37 Body mass index [BMI] 37.0-37.9, adult; Z71.3 Dietary counseling and surveillance; Z87.891 Personal history of nicotine dependence; Z79.899 Other long term (current) drug therapy | CPT/HCPCS: 99212 ==

== ENCOUNTER → 2021-03-05 07:30 | Outpatient (BNVA) | payer OTHER, SELFPAY | PROVIDERS: PCP Internal Medicine; Visit Provider Student in an Organized Health Care Education/Training Program | DX: M17.10 Unilateral primary osteoarthritis, unspecified knee (principal) | CPT/HCPCS: 99202 ==

== ENCOUNTER 2021-03-06 15:16 | Emergency (ER) | payer OTHER, SELFPAY ==
--- NOTE | ~2021-03-06 | XR_ITS ---
EXAMINATION: XR CHEST CLINICAL INFORMATION: Cough COMPARISON: None TECHNIQUE: 2 views of the chest were obtained. FINDINGS: Minor left basilar atelectasis scarring. No significant abnormality is noted involving the heart, lungs, mediastinum, bony thorax or soft tissues. XR/XR chest 2V IMPRESSION: No infiltrate.
[2021-03-06 15:21] VITALS: BP 105/78; PULSE 108; RESP 26; TEMP 37; O2SAT 95; BMI 37.2
[2021-03-06 15:49] LABS: Glucose, Whole Blood 148 mg/dL (60-115)
--- NOTE | 2021-03-06 16:06 | ED.URI ---
HPI - URI/Sore Throat General Chief Complaint: Upper Respiratory Symptoms Stated Complaint: flu like Time Seen by Provider: 03/06/21 16:05 Source: patient Mode of arrival: ambulatory Limitations: no limitations History of Present Illness MD elicited complaint: fever, cough and sore throat Pertinent past history: asthma Onset (ago): day(s) (3) Consistency: constant Severity: moderate Description of mucous: clear Able to tolerate fluids by mouth: Yes Exacerbating factors: swallowing Relieving factors: nothing Associated symptoms: chills, myalgias, nasal congestion, sore throat and cough Treatments prior to arrival: none Related Data Home Medications Medication Instructions Recorded Confirmed hydroxyzine pamoate 50 mg capsule 50 mg PO TID PRN 09/18/20 03/05/21 benztropine 1 tab PO BID 01/15/21 03/05/21 flash glucose sensor #1 ea 01/20/21 03/05/21 methylcellulose (laxative) 500 mg 0 mg PO 01/20/21 03/05/21 tablet Previous Rx's Medication Instructions Recorded cholecalciferol (vitamin D3) 25 25 mcg PO DAILY #90 cap 06/18/20 mcg (1,000 unit) capsule ibuprofen 800 mg tablet 800 mg PO Q8H PRN 30 Days #90 tab 09/28/20 docusate sodium 100 mg PO BID #60 cap 01/18/21 lancets 28 gauge #100 ea 01/18/21 psyllium husk (aspartame) 2 packet PO BEDTIME #60 ea 01/18/21 [Metamucil Fiber Singles] furosemide 20 mg tablet 20 mg PO DAILY #30 tab 01/28/21 dulaglutide 1.5 mg/0.5 mL 1.5 mg SUBCUT QWEEK #2.5 ml 01/29/21 subcutaneous pen injector clozapine 100 mg tablet 300 mg PO BEDTIME 30 Days #90 tab 01/30/21 atorvastatin 10 mg tablet 10 mg PO DAILY #90 tab 02/16/21 gabapentin 300 mg capsule 300 mg PO BEDTIME #30 cap 02/16/21 flash glucose sensor #2 ea 02/19/21 insulin degludec 200 unit/mL (3 38 unit SUBCUT DAILY 90 Days #18 ml 02/19/21 mL) subcutaneous pen metformin 500 mg tablet 1,000 mg PO BID 90 Days #360 tab 02/19/21 linaclotide 290 mcg capsule 290 mcg PO QAM 30 Days #30 cap 02/26/21 sennosides 8.6 mg capsule 17.2 mg PO BEDTIME 30 Days #60 cap 02/26/21 simethicone 180 mg capsule 180 mg PO TIDWMEAL 30 Days #90 cap 02/26/21 blood sugar diagnostic 1 strip MISCELLANEOUS DAILY 30 03/01/21 Days #25 strip albuterol sulfate 2 puff INHALATION QID PRN #6.7 g 03/06/21 benzonatate [Tessalon Perles] 100 mg PO BID PRN #30 cap 03/06/21 cefuroxime axetil 500 mg PO BID 10 Days #20 tab 03/06/21 Allergies Allergy/AdvReac Type Severity Reaction Status Date / Time No Known Allergies Allergy Verified 03/05/21 07:55 [No Known Allergies*] Review of Systems Review of Systems: Constitutional : No Weight loss, No Fever, pos Chills, No Fatigue, No Malaise ENT/Mouth : No sore throat, No Rhinorrhea Eyes: No Eye Pain, No Swelling, No Redness Cardiovascular : No Chest Pain, No SOB, No Dyspnea on Exertion, No Orthopnea, No Edema, No Palpitations Respiratory : pos Cough, No Sputum, No Wheezing Gastrointestinal : No Nausea, No Vomiting, No Diarrhea, No Constipation, No abdominal Pain, No Hematochezia, No Melena Genitourinary : No Dysuria, No Urinary Frequency, No Hematuria, Musculoskeletal : No joint pain, pos Myalgias, No Joint Swelling Skin : No Skin Lesions, No rash Neuro : No Weakness, No Numbness, No Dizziness, No Headache Psych : No Anxiety/Panic, No Depression Heme/Lymph: No Bruising, No Bleeding,No Lymphadenopathy Endocrine : No Polyuria, No Polydipsia All other systems reviewed and are negative PMFSH Past Medical History Attestation statement: The following information was validated with the patient. 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 Melena Morbid obesity Obesity (BMI 30-39.9) Pain in both feet Pure hypercholesterolemia Right hand pain Schizo affective schizophrenia Schizoaffective disorder Type 2 diabetes mellitus with diabetic chronic kidney disease Surgical History History of repair of congenital cleft palate Hx of circumcision Family History Family History Father HTN (hypertension) Mother Diabetes Other Mental health problem Social History Social History Household Members: None Housing: Apartment Do you presently have visiting nurse or other home services: Yes Alcohol intake: current Alcohol intake frequency: a few times a week Alcohol type: beer Patient Tobacco Use Status: Former Tobacco user Tobacco use type: Cigarette Cigarettes Per Day: 15 Years Smoked: 8 quit 30 years ago Second Hand Smoke Exposure: No Advance Directives: No Advance Directives Information Provided: No service: No Current occupational status: employed Current occupation: [employer] Physical Exam Vital Signs: Vital Signs: Last Vital Signs Temp 99.0 F 03/06/21 17:50 Pulse 98 03/06/21 17:50 Resp 20 03/06/21 17:50 BP 107/70 03/06/21 17:50 Pulse Ox 95 03/06/21 17:50 Body Mass Index 37.2 Appearance: Alert. Oriented X3. No acute distress. Eyes: Pupils equal, round and reactive to light. ENT: Pharynx mild generalized erythema no ROBOTICS TECHNOLOGIST, no exudates Neck: Normal inspection. Neck supple. CVS: tachycardic heart rate and rhythm. Pulses normal. Respiratory: No respiratory distress. Breath sounds mild end exp wheezes some rhonchi noted Abdomen: Soft and non-tender. Skin: Skin warm and dry. Normal skin color. Normal skin turgor. Extremities: No lower extremity edema. No calf ttp Neuro: Oriented X 3. No motor deficit. No sensory deficit. Course Course Course Narrative: feels better, clear lungs will treat as bronchitis and tonsillitis - stable for DC MDM - URI/Sore Throat MDM Narrative Medical decision making narrative: 60 yo male with hx of DM, obesity, arthritis, asthma as a child, schizoaffective disorder come sin with c/o sore throat, cough, body aches x 3 days, he has some wheezes on exam - neb, IV steroids ordered, CXR as well will need basic labs, as for pharyngitis he has tonsilitis but no ROBOTICS TECHNOLOGIST and no signs of deeper space infection neck is soft and supple no masses felt can tolerate secretions will start on antibiotics, dispo per findings and improvement Lab Data Result diagrams: 03/06/21 16:44 03/06/21 16:44 Labs: Lab Results 03/06/21 03/06/21 03/06/21 Range/Units 15:45 16:09 16:44 WBC 10.8 (4.8-10.8) X10*3/uL RBC 4.78 (4.60-5.80) X10*6/uL Hgb 14.4 (14.0-18.0) g/dl Hct 39.8 L (42-52) % MCV 83.3 (80-98) fL MCH 30.1 (27.0-33.0) pg MCHC 36.2 H (31.0-36.0) g/dl RDW 13.2 (11.0-16.0) % Plt Count 113 L (160-400) X10*3/uL MPV 10.7 (9.4-12.4) fL Immature Gran % (Auto) 0.3 (0.0-0.4) % Neut % (Auto) 84.8 H (45-73) % Lymph % (Auto) 8.3 L (20-40) % [place] % (Auto) 6.5 (2-11) % Eos % (Auto) 0.0 (0-4) % Baso % (Auto) 0.1 (0-2) % Lymph # (Auto) 0.9 L (1.2-4.9) X10*3/uL [place] # (Auto) 0.7 (0.1-1.2) X10*3/uL Eos # (Auto) 0.0 (0.0-0.4) X10*3/uL Baso # (Auto) 0.0 (0.0-0.2) X10*3/uL Abs Immat Gran (auto) 0.03 (0.00-0.03) X10*3/uL Absolute Neuts (auto) 9.1 H (2.0-8.3) X10*3/uL Absolute Nucleated RBC 0.000 (0.0-0.012) X10*3/uL Nucleated RBC % (auto) 0.0 (0.0-0.2) /100WBC Smear Tech's Comments VERIFIED Sodium (135-145) mmol/L Potassium (3.3-5.1) mmol/L Chloride (96-108) mmol/L Carbon Dioxide (22-29) mmol/L Anion Gap (12-20) BUN (9-16) mg/dL Creatinine (0.5-1.4) mg/dL Estim Creat Clear Calc Estimated GFR POC Glucose 148 H (60-115) mg/dL Random Glucose (60-115) mg/dL Lactic Acid (0.5-2.0) mmol/L Calcium (8.4-10.2) mg/dL COVID-19 ([facility]RE[facility]) Negative (Negative) COVID-19 Clin Com See Note 03/06/21 03/06/21 Range/Units 16:44 17:00 WBC (4.8-10.8) X10*3/uL RBC (4.60-5.80) X10*6/uL Hgb (14.0-18.0) g/dl Hct (42-52) % MCV (80-98) fL MCH (27.0-33.0) pg MCHC (31.0-36.0) g/dl RDW (11.0-16.0) % Plt Count (160-400) X10*3/uL MPV (9.4-12.4) fL Immature Gran % (Auto) (0.0-0.4) % Neut % (Auto) (45-73) % Lymph % (Auto) (20-40) % [place] % (Auto) (2-11) % Eos % (Auto) (0-4) % Baso % (Auto) (0-2) % Lymph # (Auto) (1.2-4.9) X10*3/uL [place] # (Auto) (0.1-1.2) X10*3/uL Eos # (Auto) (0.0-0.4) X10*3/uL Baso # (Auto) (0.0-0.2) X10*3/uL Abs Immat Gran (auto) (0.00-0.03) X10*3/uL Absolute Neuts (auto) (2.0-8.3) X10*3/uL Absolute Nucleated RBC (0.0-0.012) X10*3/uL Nucleated RBC % (auto) (0.0-0.2) /100WBC Smear Tech's Comments Sodium 142 (135-145) mmol/L Potassium 3.9 (3.3-5.1) mmol/L Chloride 107 (96-108) mmol/L Carbon Dioxide 22 (22-29) mmol/L Anion Gap 17 (12-20) BUN 15 (9-16) mg/dL Creatinine 1.32 (0.5-1.4) mg/dL Estim Creat Clear Calc 85.5 Estimated GFR 56 POC Glucose (60-115) mg/dL Random Glucose 150 H (60-115) mg/dL Lactic Acid 1.2 (0.5-2.0) mmol/L Calcium 9.7 (8.4-10.2) mg/dL COVID-19 ([facility]) (Negative) COVID-19 Clin Com Discharge Plan Discharge Clinical Impression: Bronchitis Acute tonsillitis Qualifiers: Pharyngitis/tonsillitis etiology: other specified organisms Qualified Code(s): J03.80 - Acute tonsillitis due to other specified organisms Patient Disposition: Home, Self-Care Instructions: Acute Bronchitis (ED), Tonsillitis (ED) Additional Instructions: return to ED for any worsening symptoms or concerns inhaler 2 puffs every 4 hours as needed for cough or wheezing Prescriptions: New albuterol sulfate 90 mcg/actuation HFA aerosol inhaler 2 puff inhalation QID PRN (Reason: shortness of breath or wheezing) Qty: 6.7 RF: 0 benzonatate [Tessalon Perles] 100 mg capsule 100 mg PO BID PRN (Reason: cough) Qty: 30 RF: 0 cefuroxime axetil 500 mg tablet 500 mg PO BID 10 Days Qty: 20 RF: 0 No Action cholecalciferol (vitamin D3) 25 mcg (1,000 unit) capsule 25 mcg PO DAILY Qty: 90 RF: 12 ibuprofen 800 mg tablet 800 mg PO Q8H PRN (Reason: pain) 30 Days Qty: 90 RF: 1 (DME) lancets 28 gauge misc See Rx Instructions .ROUTE .MEDSUPPLY Qty: 100 RF: 5 furosemide 20 mg tablet 20 mg PO DAILY Qty: 30 RF: 3 dulaglutide [Trulicity] 1.5 mg/0.5 mL pen injector 1.5 mg subcut QWEEK Qty: 2.5 RF: 4 Hold Instructions: Doctor's Order clozapine 100 mg tablet 300 mg PO BEDTIME 30 Days Qty: 90 RF: 0 atorvastatin 10 mg tablet 10 mg PO DAILY Qty: 90 RF: 1 gabapentin 300 mg capsule 300 mg PO BEDTIME Qty: 30 RF: 2 blood sugar diagnostic [FreeStyle Precision Obie Strips] Strip 1 strip miscellaneous DAILY 30 Days Qty: 25 RF: 6 benztropine 0.5 mg tablet 1 tab PO BID RF: 0 docusate sodium 100 mg Capsule 100 mg PO BID Qty: 60 RF: 1 Metamucil Fiber Singles 3.4 gram Powder In Packet 2 packet PO BEDTIME Qty: 60 RF: 1 (DME) FreeStyle Jody 14 Day Sensor Kit See Rx Instructions ea topical Q2W Qty: 1 RF: 0 Fiber Therapy (m-cellulose) 500 mg tablet 0 mg PO RF: 0 hydroxyzine pamoate 50 mg capsule 50 mg PO TID PRN (Reason: Anxiety) RF: 0 (DME) FreeStyle Jody 14 Day Sensor Kit See Rx Instructions .ROUTE .MEDSUPPLY Qty: 2 RF: 7 Tresiba FlexTouch U-200 200 unit/mL (3 mL) insulin pen 38 unit subcut DAILY 90 Days Qty: 18 RF: 1 metformin 500 mg tablet 1,000 mg PO BID 90 Days Qty: 360 RF: 1 senna 8.6 mg capsule 17.2 mg PO BEDTIME 30 Days Qty: 60 RF: 6 Linzess 290 mcg capsule 290 mcg PO QAM 30 Days Qty: 30 RF: 0 simethicone 180 mg capsule 180 mg PO TIDWMEAL 30 Days Qty: 90 RF: 3 Referrals: Luis Manuel Garcia MD [Primary Care Provider] - 2 days (if not better)
[2021-03-06] MEDS: Albuterol Sulfate (0.083%) 2.5 MG/3 ML VIAL.NEB INHALE (16:27)
[2021-03-06 16:31] VITALS: PULSE 101; O2SAT 95
[2021-03-06 16:36] LABS: COVID-19 Test Negative (Negative)
[2021-03-06] MEDS: Acetaminophen 325 MG TABLET 650 MG PO (16:45)
[2021-03-06 16:55] LABS: Hemoglobin 14.4 g/dl (14.0-18.0); MANUAL DIFF FLAG SCAN; Mean Corpuscular Volume 83.3 fL (80-98); Neutrophils Percent Auto 84.8 % (45-73); PLT CLUMP 1; Red Cell Distribution Width 13.2 % (11.0-16.0); SCAN SMEAR FLAG 1
[2021-03-06 16:57] LABS: Basophils Percent Auto 0.1 % (0-2); Hematocrit 39.8 % (42-52); Imm Gran Abs Auto 0.03 X10*3/uL (0.00-0.03); Imm Gran Pct Auto 0.3 % (0.0-0.4); Lymphocytes Absolute Auto 0.9 X10*3/uL (1.2-4.9); Lymphocytes Percent Auto 8.3 % (20-40); Mean Corpuscular HGB Conc 36.2 g/dl (31.0-36.0); Mean Corpuscular Hemoglobin 30.1 pg (27.0-33.0); Mean Platelet Volume 10.7 fL (9.4-12.4); Monocytes Absolute Auto 0.7 X10*3/uL (0.1-1.2); Monocytes Percent Auto 6.5 % (2-11); Neutrophils Absolute Auto 9.1 X10*3/uL (2.0-8.3); Platelet Count 113 X10*3/uL (160-400); Red Blood Count 4.78 X10*6/uL (4.60-5.80); White Blood Count 10.8 X10*3/uL (4.8-10.8)
[2021-03-06 16:58] LABS: SLIDE REVIEW VERIFIED
[2021-03-06] MEDS: cefTRIAXone sodium 1 GM in 0.9 % Sodium Chloride 50 ML IV (17:03)
[2021-03-06] MEDS: methylPREDNISolone Sod Succ 125 MG/2 ML VIAL IVPUSH (17:04)
[2021-03-06 17:17] LABS: Anion Gap 17 (12-20); Blood Urea Nitrogen 15 mg/dL (9-16); Calcium 9.7 mg/dL (8.4-10.2); Carbon Dioxide 22 mmol/L (22-29); Chloride 107 mmol/L (96-108); Creatinine Clr Calc Pharmacy 85.5; Estimated Glomerular Filt Rate 56; Glucose Random 150 mg/dL (60-115); Potassium 3.9 mmol/L (3.3-5.1); Sodium 142 mmol/L (135-145)
[2021-03-06 17:27] LABS: Lactic Acid 1.2 mmol/L (0.5-2.0)
[2021-03-06 17:50] VITALS: BP 107/70; PULSE 98; RESP 20; TEMP 37.2; O2SAT 95
[2021-03-06] MEDS: Albuterol Sulfate 90 MCG 8 GM INHALER 2 PUFF INHALE (18:19)
== END 2021-03-06 18:35 | disposition home or self-care (01) ==
PROVIDERS: Emergency Provider Emergency Medicine; PCP Internal Medicine
DX: J20.9 Acute bronchitis, unspecified (principal); J03.80 Acute tonsillitis due to other specified organisms; Z20.822 Contact with and (suspected) exposure to COVID-19; R50.9 Fever, unspecified; E11.22 Type 2 diabetes mellitus with diabetic chronic kidney disease; I12.9 Hypertensive chronic kidney disease with stage 1 through stage 4 chronic kidney disease, or unspecified chronic kidney disease; N18.30 Chronic kidney disease, stage 3 unspecified; J45.909 Unspecified asthma, uncomplicated; Z79.899 Other long term (current) drug therapy
CPT/HCPCS: 36415; 71046; 80048; 82947; 83605; 85025; 87040; 87635; 94640; 96365; 96375; 99284; J0696; J2930

== ENCOUNTER → 2021-03-11 12:40 | Outpatient (BNVA) | payer OTHER, SELFPAY | PROVIDERS: PCP Internal Medicine; Referring Provider Internal Medicine; Visit Provider Nurse Practitioner | DX: R14.0 Abdominal distension (gaseous) (principal); K56.609 Unspecified intestinal obstruction, unspecified as to partial versus complete obstruction; K59.00 Constipation, unspecified | CPT/HCPCS: 99212 ==

== ENCOUNTER 2021-03-16 08:18 | Emergency (ER) | payer OTHER, SELFPAY ==
--- NOTE | ~2021-03-16 | CT_ITS ---
EXAMINATION: CT ABDOMEN AND PELVIS WITHOUT CONTRAST CLINICAL INFORMATION: Constipation. Assess for small bowel obstruction. COMPARISON: Ultrasound abdomen 01/15/2021 and 12/07/2017; CT abdomen noncontrast 01/15/2021 and 10/03/2020. TECHNIQUE: Multidetector volumetric imaging was performed from the superior aspect of the liver through the pubic symphysis. Sagittal and coronal reformatted images were obtained on the technologist's workstation. No oral or intravenous contrast. This CT examination was performed using dose optimization techniques as appropriate, variously including the following: *Automated exposure control *Adjustment of mA and/or kV according to patient size (this includes techniques or standardized protocols for targeted exams where dose is matched to indication/reason for exam; i.e. extremities or head) *Use of iterative reconstruction technique DLP: 1327 mGy-cm FINDINGS: LUNG BASES: Subsegmental atelectasis left anterior base. No effusion. LIVER, GALLBLADDER, AND BILIARY TREE: Liver is normal in size and homogeneous. No interval parenchymal lesion or intrahepatic ductal dilatation. The gallbladder is unremarkable with no evidence of radiopaque gallstones, gallbladder wall thickening, or obvious pericholecystic inflammatory changes. PANCREAS: There is diffuse fatty change within the pancreas is similar to prior studies. No peripancreatic inflammatory changes. No pancreatic ductal distention. SPLEEN: Chronic splenomegaly, 15.6 cm in height and 20 cm in sagittal dimension. Similar measurements on CT 10/03/2020. ADRENAL GLANDS: Unremarkable. KIDNEYS AND URETERS: The kidneys are normal in size and show normal parenchymal thickness. There is no hydronephrosis, hydroureter, or perinephric stranding. A punctate nonobstructing calculus is again noted lower pole right kidney under 3 mm. No ureteral calculi. BLADDER: Unremarkable. GASTROINTESTINAL TRACT: There is again large amount of stool seen throughout the colon from the cecum to the rectosigmoid. There are no inflammatory changes seen in the bowel or adjacent mesentery. The appendix is normal. There is no small bowel dilatation no ascites or fluid collection. ABDOMINAL WALL: No significant hernia is appreciated. LYMPH NODES: No lymphadenopathy. VASCULAR: Unremarkable. PELVIC VISCERA: Unremarkable. OSSEOUS STRUCTURES: No acute bony abnormality. CT/CT abdomen pelvis wo con IMPRESSION: 1. Large amount of stool throughout colon from cecum to rectosigmoid. No inflammatory changes in bowel or mesentery. No small bowel dilatation, ascites, or fluid collection. 2. Punctate nonobstructing calculus lower pole right kidney. No hydronephrosis or perinephric stranding. 3. Chronic splenomegaly.
--- NOTE | 2021-03-16 08:59 | ED.ABDPAIN ---
HPI - Abdominal Pain General Chief Complaint: Abdominal Pain Stated Complaint: constipation Time Seen by Provider: 03/16/21 08:53 Source: patient Mode of arrival: ambulatory Limitations: no limitations History of Present Illness MD elicited complaint: other (constipation) Pertinent past history: constipation Onset (ago): day(s) (March 12) Severity: mild Quality: fullness Radiation: none Migration to: no migration Exacerbating factors: eating Relieving factors: nothing Context: history of similar episodes Associated symptoms: denies other symptoms Treatments prior to arrival: other (tried colace and senna no relief) Related Data Home Medications Medication Instructions Recorded Confirmed hydroxyzine pamoate 50 mg capsule 50 mg PO TID PRN 09/18/20 03/05/21 benztropine 0.5 mg tablet 1 tab PO BID 01/15/21 03/05/21 flash glucose sensor #1 ea 01/20/21 03/05/21 methylcellulose (laxative) 500 mg 0 mg PO 01/20/21 03/05/21 tablet Previous Rx's Medication Instructions Recorded cholecalciferol (vitamin D3) 25 25 mcg PO DAILY #90 cap 06/18/20 mcg (1,000 unit) capsule ibuprofen 800 mg tablet 800 mg PO Q8H PRN 30 Days #90 tab 09/28/20 docusate sodium 100 mg capsule 100 mg PO BID #60 cap 01/18/21 lancets 28 gauge #100 ea 01/18/21 psyllium husk (aspartame) 3.4 gram 2 packet PO BEDTIME #60 ea 01/18/21 oral powder packet (Metamucil Fiber Singles) furosemide 20 mg tablet 20 mg PO DAILY #30 tab 01/28/21 clozapine 100 mg tablet 300 mg PO BEDTIME 30 Days #90 tab 01/30/21 atorvastatin 10 mg tablet 10 mg PO DAILY #90 tab 02/16/21 gabapentin 300 mg capsule 300 mg PO BEDTIME #30 cap 02/16/21 flash glucose sensor (FreeStyle #2 ea 02/19/21 Jody 14 Day Sensor) metformin 500 mg tablet 1,000 mg PO BID 90 Days #360 tab 02/19/21 simethicone 180 mg capsule 180 mg PO TIDWMEAL 30 Days #90 cap 02/26/21 blood sugar diagnostic (FreeStyle 1 strip MISCELLANEOUS DAILY 30 03/01/21 Precision Obie Strips) Days #25 strip albuterol sulfate 90 mcg/actuation 2 puff INHALATION QID PRN #6.7 g 03/06/21 aerosol inhaler benzonatate 100 mg capsule 100 mg PO BID PRN #30 cap 03/06/21 (Obdulia Ivory) cefuroxime axetil 500 mg tablet 500 mg PO BID 10 Days #20 tab 03/06/21 dulaglutide 1.5 mg/0.5 mL 1.5 mg SUBCUT QWEEK #2 ml 03/11/21 subcutaneous pen injector (Trulicity) insulin degludec 200 unit/mL (3 32 unit SUBCUT DAILY 90 Days #18 ml 03/11/21 mL) subcutaneous pen (Tresiba FlexTouch U-200 insulin) sennosides 8.6 mg capsule (senna) 17.2 mg PO BEDTIME 30 Days #60 cap 03/11/21 linaclotide 290 mcg capsule 290 mcg PO QAM 30 Days #30 cap 03/15/21 (Linzess) Allergies Allergy/AdvReac Type Severity Reaction Status Date / Time No Known Allergies Allergy Verified 03/11/21 12:51 [No Known Allergies*] Review of Systems Review of Systems Constitutional : No Weight loss, No Fever, No Chills ENT/Mouth : No sore throat, No Rhinorrhea Eyes: No Swelling, No Redness Cardiovascular : No Chest Pain, No SOB, NoEdema Respiratory : No Cough, No Sputum, No Wheezing Gastrointestinal : no Nausea, no Vomiting, no Diarrhea, no abdominal Pain, No Hematochezia, No Melena, pos constipation Genitourinary : No Dysuria, No Urinary Frequency, No Hematuria, No Urgency Musculoskeletal : No joint pain, No Myalgias, No Joint Swelling Skin : No Skin Lesions, No rash Neuro : No Weakness, No Numbness, No Dizziness, No Headache Psych : No Anxiety/Panic, No Depression Heme/Lymph: No Bruising, No Lymphadenopathy Endocrine : No Polyuria, No Polydipsia All other systems reviewed and are negative. Physical Exam Vital Signs: Vital Signs: Last Vital Signs Temp 98.2 F 03/16/21 09:14 Pulse 81 03/16/21 09:14 Resp 20 03/16/21 09:14 BP 110/76 03/16/21 09:14 Pulse Ox 95 03/16/21 09:14 Body Mass Index 36.3 Appearance: Alert. Oriented X3. No acute distress. Eyes: Pupils equal, round and reactive to light. ENT: Pharynx normal. Neck: Normal inspection. Neck supple. CVS: Normal heart rate and rhythm. Pulses normal. Respiratory: No respiratory distress. Breath sounds normal. Abdomen: Soft and nontender. Obese Skin: Skin warm and dry. Normal skin color. Normal skin turgor. Extremities: No lower extremity edema. No calf ttp Neuro: Oriented X 3. No motor deficit. No sensory deficit. Course Course Course Narrative: no acute findings other than constipation will start on mag citrate MDM - Abdominal Pain MDM Narrative Medical decision making narrative: 60 yo male with hx of DM, bloating, chronic constipation, mental health issues reports lack of BM but no n/v some flatus since 03/12 - tried colace and senna at this time basic labs, CT scan for obstruction, may need mag citrate for relief. Lab Data Result diagrams: 03/16/21 09:42 03/16/21 09:42 Labs: Lab Results 03/16/21 03/16/21 03/16/21 Range/Units 09:42 09:42 09:42 WBC 6.5 (4.8-10.8) X10*3/uL RBC 4.55 L (4.60-5.80) X10*6/uL Hgb 13.6 L (14.0-18.0) g/dl Hct 38.2 L (42-52) % MCV 84.0 (80-98) fL MCH 29.9 (27.0-33.0) pg MCHC 35.6 (31.0-36.0) g/dl RDW 13.4 (11.0-16.0) % Plt Count 115 L (160-400) X10*3/uL MPV 9.9 (9.4-12.4) fL Immature Gran % (Auto) 1.4 H (0.0-0.4) % Neut % (Auto) 71.9 (45-73) % Lymph % (Auto) 19.0 L (20-40) % Brewster % (Auto) 7.7 (2-11) % Eos % (Auto) 0.0 (0-4) % Baso % (Auto) 0.0 (0-2) % Lymph # (Auto) 1.2 (1.2-4.9) X10*3/uL Brewster # (Auto) 0.5 (0.1-1.2) X10*3/uL Eos # (Auto) 0.0 (0.0-0.4) X10*3/uL Baso # (Auto) 0.0 (0.0-0.2) X10*3/uL Abs Immat Gran (auto) 0.09 H (0.00-0.03) X10*3/uL Absolute Neuts (auto) 4.7 (2.0-8.3) X10*3/uL Absolute Nucleated RBC 0.000 (0.0-0.012) X10*3/uL Nucleated RBC % (auto) 0.0 (0.0-0.2) /100WBC Smear Tech's Comments Not Reportable Sodium 142 (135-145) mmol/L Potassium 4.2 (3.3-5.1) mmol/L Chloride 109 H (96-108) mmol/L Carbon Dioxide 23 (22-29) mmol/L Anion Gap 14 (12-20) BUN 16 (9-16) mg/dL Creatinine 1.18 (0.5-1.4) mg/dL Estim Creat Clear Calc 99.8 Estimated GFR > 60 Random Glucose 189 H (60-115) mg/dL Calcium 10.0 (8.4-10.2) mg/dL Total Bilirubin 0.5 (0.0-1.0) mg/dL Direct Bilirubin 0.2 (0.0-0.5) mg/dL AST 27 (5-37) U/L ALT 73 H (0-40) U/L Alkaline Phosphatase 137 H D (39-117) U/L Total Protein 6.7 (6.5-8.0) g/dL Albumin 4.1 (3.5-5.0) g/dL Lipase 14 (8-78) U/L COVID-19 (JEFFREY) Negative (Negative) COVID-19 Clin Com See Note Discharge Plan Discharge Clinical Impression: Constipation Qualifiers: Constipation type: chronic idiopathic constipation Qualified Code(s): K59.04 - Chronic idiopathic constipation Patient Disposition: Home, Self-Care Instructions: Constipation (ED) Additional Instructions: return to ED for any worsening symptoms or concerns drink 1/4 bottle every 2 hours until bowel movement achieved Prescriptions: No Action cholecalciferol (vitamin D3) 25 mcg (1,000 unit) capsule 25 mcg PO DAILY Qty: 90 RF: 12 ibuprofen 800 mg tablet 800 mg PO Q8H PRN (Reason: pain) 30 Days Qty: 90 RF: 1 (DME) lancets 28 gauge misc See Rx Instructions .ROUTE .MEDSUPPLY Qty: 100 RF: 5 furosemide 20 mg tablet 20 mg PO DAILY Qty: 30 RF: 3 clozapine 100 mg tablet 300 mg PO BEDTIME 30 Days Qty: 90 RF: 0 atorvastatin 10 mg tablet 10 mg PO DAILY Qty: 90 RF: 1 gabapentin 300 mg capsule 300 mg PO BEDTIME Qty: 30 RF: 2 blood sugar diagnostic [FreeStyle Precision Obie Strips] Strip 1 strip miscellaneous DAILY 30 Days Qty: 25 RF: 6 Linzess 290 mcg capsule 290 mcg PO QAM 30 Days Qty: 30 RF: 2 albuterol sulfate 90 mcg/actuation HFA aerosol inhaler 2 puff inhalation QID PRN (Reason: shortness of breath or wheezing) Qty: 6.7 RF: 0 benzonatate [Tessalon Perles] 100 mg capsule 100 mg PO BID PRN (Reason: cough) Qty: 30 RF: 0 cefuroxime axetil 500 mg tablet 500 mg PO BID 10 Days Qty: 20 RF: 0 benztropine 0.5 mg tablet 1 tab PO BID RF: 0 docusate sodium 100 mg Capsule 100 mg PO BID Qty: 60 RF: 1 Metamucil Fiber Singles 3.4 gram Powder In Packet 2 packet PO BEDTIME Qty: 60 RF: 1 (DME) FreeStyle Jody 14 Day Sensor Kit See Rx Instructions ea topical Q2W Qty: 1 RF: 0 Fiber Therapy (m-cellulose) 500 mg tablet 0 mg PO RF: 0 hydroxyzine pamoate 50 mg capsule 50 mg PO TID PRN (Reason: Anxiety) RF: 0 (DME) FreeStyle Jody 14 Day Sensor Kit See Rx Instructions .ROUTE .MEDSUPPLY Qty: 2 RF: 7 metformin 500 mg tablet 1,000 mg PO BID 90 Days Qty: 360 RF: 1 simethicone 180 mg capsule 180 mg PO TIDWMEAL 30 Days Qty: 90 RF: 3 senna 8.6 mg capsule 17.2 mg PO BEDTIME 30 Days Qty: 60 RF: 6 Tresiba FlexTouch U-200 200 unit/mL (3 mL) insulin pen 32 unit subcut DAILY 90 Days Qty: 18 RF: 1 Trulicity 1.5 mg/0.5 mL pen injector 1.5 mg subcut QWEEK Qty: 2 RF: 4 Hold Instructions: Doctor's Order Referrals: Luis Manuel Garcia MD [Primary Care Provider] - 2 days (if not better) [facility] Past Medical History Attestation statement: The following information was validated with the patient. Medical History Benign essential hypertension Bowel obstruction Chronic kidney disease (CKD), stage III (moderate) Constipation Constipation Diabetes type 2, uncontrolled Diabetic polyneuropathy associated with 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 mellitus Dyslipidemia Hospital discharge follow-up 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 mellitus Knee osteoarthritis Knee pain, bilateral detention (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 Melena Morbid obesity Obesity (BMI 30-39.9) Pain in both feet Pure hypercholesterolemia Right hand pain Schizo affective schizophrenia Schizoaffective disorder Type 2 diabetes mellitus with diabetic chronic kidney disease Surgical History History of repair of congenital cleft palate Hx of circumcision Family History Family History Father HTN (hypertension) Mother Diabetes Other Mental health problem Social History Social History Household Members: None Housing: Apartment Do you presently have visiting nurse or other home services: Yes Alcohol intake: current Alcohol intake frequency: a few times a week Alcohol type: beer Patient Tobacco Use Status: Former Tobacco user Tobacco use type: Cigarette Cigarettes Per Day: 15 Years Smoked: 8 quit 30 years ago Second Hand Smoke Exposure: No Advance Directives: No Advance Directives Information Provided: No service: No Current occupational status: employed Current occupation: [employer]
[2021-03-16 09:14] VITALS: BP 110/76; PULSE 81; RESP 20; TEMP 36.8; O2SAT 95; BMI 36.3
[2021-03-16 09:55] LABS: MANUAL DIFF FLAG SCAN; PLT CLUMP 1; Red Cell Distribution Width 13.4 % (11.0-16.0); SCAN SMEAR FLAG 1
[2021-03-16 09:56] LABS: Hematocrit 38.2 % (42-52); Hemoglobin 13.6 g/dl (14.0-18.0); Imm Gran Abs Auto 0.09 X10*3/uL (0.00-0.03); Imm Gran Pct Auto 1.4 % (0.0-0.4); Lymphocytes Absolute Auto 1.2 X10*3/uL (1.2-4.9); Mean Corpuscular HGB Conc 35.6 g/dl (31.0-36.0); Mean Corpuscular Hemoglobin 29.9 pg (27.0-33.0); Mean Platelet Volume 9.9 fL (9.4-12.4); Monocytes Absolute Auto 0.5 X10*3/uL (0.1-1.2); Monocytes Percent Auto 7.7 % (2-11); Neutrophils Absolute Auto 4.7 X10*3/uL (2.0-8.3); Neutrophils Percent Auto 71.9 % (45-73); Platelet Count 115 X10*3/uL (160-400); Red Blood Count 4.55 X10*6/uL (4.60-5.80); White Blood Count 6.5 X10*3/uL (4.8-10.8)
[2021-03-16 10:11] LABS: COVID-19 Test Negative (Negative); IDNOW Serial# 08D9AD1C
[2021-03-16 10:23] LABS: Alanine Aminotransferase 73 U/L (0-40); Albumin Level 4.1 g/dL (3.5-5.0); Alkaline Phosphatase 137 U/L (39-117); Anion Gap 14 (12-20); Aspartate Amino Transferase 27 U/L (5-37); Bilirubin Direct 0.2 mg/dL (0.0-0.5); Bilirubin Total 0.5 mg/dL (0.0-1.0); Blood Urea Nitrogen 16 mg/dL (9-16); Carbon Dioxide 23 mmol/L (22-29); Chloride 109 mmol/L (96-108); Creatinine Clr Calc Pharmacy 99.8; Estimated Glomerular Filt Rate > 60; Glucose Random 189 mg/dL (60-115); Lipase 14 U/L (8-78); Potassium 4.2 mmol/L (3.3-5.1); Sodium 142 mmol/L (135-145); Total Protein 6.7 g/dL (6.5-8.0)
== END 2021-03-16 11:38 | disposition home or self-care (01) ==
PROVIDERS: Emergency Provider Emergency Medicine; PCP Internal Medicine
DX: K59.04 Chronic idiopathic constipation (principal); I10 Essential (primary) hypertension; Z87.891 Personal history of nicotine dependence; Z79.899 Other long term (current) drug therapy; Z20.822 Contact with and (suspected) exposure to COVID-19
CPT/HCPCS: 36415; 74176; 80048; 80076; 83690; 85025; 87635; 99282; 99283

== ENCOUNTER 2021-03-18 13:51 | Outpatient (REF) | payer OTHER, SELFPAY ==
[2021-03-18 14:20] LABS: Red Cell Distribution Width 13.3 % (11.0-16.0)
[2021-03-18 14:22] LABS: Hematocrit 39.4 % (42-52); Imm Gran Abs Auto 0.04 X10*3/uL (0.00-0.03); Imm Gran Pct Auto 0.5 % (0.0-0.4); Lymphocytes Absolute Auto 1.7 X10*3/uL (1.2-4.9); Lymphocytes Percent Auto 21.1 % (20-40); Mean Corpuscular HGB Conc 35.5 g/dl (31.0-36.0); Mean Corpuscular Hemoglobin 30.1 pg (27.0-33.0); Mean Corpuscular Volume 84.7 fL (80-98); Mean Platelet Volume 10.1 fL (9.4-12.4); Monocytes Absolute Auto 0.5 X10*3/uL (0.1-1.2); Neutrophils Absolute Auto 5.9 X10*3/uL (2.0-8.3); Neutrophils Percent Auto 72.4 % (45-73); Platelet Count 111 X10*3/uL (160-400); Red Blood Count 4.65 X10*6/uL (4.60-5.80); White Blood Count 8.2 X10*3/uL (4.8-10.8)
[2021-03-18 14:25] LABS: MANUAL DIFF FLAG NO
== END 2021-03-18 13:52 | disposition home or self-care (01) ==
LOC: HO.LABR 13:51
PROVIDERS: PCP Internal Medicine; Visit Provider Psychiatry & Neurology Psychiatry
DX: Z79.899 Other long term (current) drug therapy (principal)
CPT/HCPCS: 36415; 85025

== ENCOUNTER 2021-04-16 15:22 | Outpatient (REF) | payer OTHER, SELFPAY ==
[2021-04-16 16:06] LABS: Hemoglobin 13.9 g/dl (14.0-18.0); Mean Corpuscular HGB Conc 35.5 g/dl (31.0-36.0); Monocytes Percent Auto 7.2 % (2-11); PLT CLUMP 1; SCAN SMEAR FLAG 1
[2021-04-16 16:08] LABS: Basophils Percent Auto 0.1 % (0-2); Hematocrit 39.1 % (42-52); Imm Gran Abs Auto 0.05 X10*3/uL (0.00-0.03); Imm Gran Pct Auto 0.5 % (0.0-0.4); Lymphocytes Absolute Auto 1.9 X10*3/uL (1.2-4.9); Lymphocytes Percent Auto 20.7 % (20-40); Mean Corpuscular Hemoglobin 30.3 pg (27.0-33.0); Mean Corpuscular Volume 85.2 fL (80-98); Mean Platelet Volume 10.4 fL (9.4-12.4); Monocytes Absolute Auto 0.7 X10*3/uL (0.1-1.2); Neutrophils Absolute Auto 6.7 X10*3/uL (2.0-8.3); Neutrophils Percent Auto 71.5 % (45-73); Platelet Count 123 X10*3/uL (160-400); Red Blood Count 4.59 X10*6/uL (4.60-5.80); Red Cell Distribution Width 13.7 % (11.0-16.0); White Blood Count 9.4 X10*3/uL (4.8-10.8)
== END 2021-04-16 15:23 | disposition home or self-care (01) ==
LOC: HO.LABR 15:22
PROVIDERS: PCP Internal Medicine; Visit Provider Psychiatry & Neurology Psychiatry
DX: Z79.899 Other long term (current) drug therapy (principal)
CPT/HCPCS: 36415; 85025

== ENCOUNTER → 2021-05-06 13:26 | Outpatient (BNVA) | payer OTHER, SELFPAY | PROVIDERS: PCP Internal Medicine; Referring Provider Internal Medicine; Visit Provider Nurse Practitioner | DX: K56.609 Unspecified intestinal obstruction, unspecified as to partial versus complete obstruction (principal); K59.04 Chronic idiopathic constipation; R14.0 Abdominal distension (gaseous) | CPT/HCPCS: 99212 ==

== ENCOUNTER 2021-05-13 14:16 | Outpatient (REF) | payer OTHER, SELFPAY ==
[2021-05-13 14:37] LABS: MANUAL DIFF FLAG NO
[2021-05-13 14:42] LABS: Hematocrit 41.1 % (42-52); Hemoglobin 14.6 g/dl (14.0-18.0); Imm Gran Abs Auto 0.04 X10*3/uL (0.00-0.03); Imm Gran Pct Auto 0.5 % (0.0-0.4); Lymphocytes Absolute Auto 1.7 X10*3/uL (1.2-4.9); Lymphocytes Percent Auto 21.5 % (20-40); Mean Corpuscular HGB Conc 35.5 g/dl (31.0-36.0); Mean Corpuscular Volume 84.4 fL (80-98); Mean Platelet Volume 10.3 fL (9.4-12.4); Monocytes Absolute Auto 0.6 X10*3/uL (0.1-1.2); Monocytes Percent Auto 7.1 % (2-11); Neutrophils Absolute Auto 5.5 X10*3/uL (2.0-8.3); Neutrophils Percent Auto 70.9 % (45-73); Platelet Count 121 X10*3/uL (160-400); Red Blood Count 4.87 X10*6/uL (4.60-5.80); Red Cell Distribution Width 12.9 % (11.0-16.0); White Blood Count 7.7 X10*3/uL (4.8-10.8)
== END 2021-05-13 14:17 | disposition home or self-care (01) ==
LOC: HO.LABR 14:16
PROVIDERS: PCP Internal Medicine; Visit Provider Psychiatry & Neurology Psychiatry
DX: Z79.899 Other long term (current) drug therapy (principal)
CPT/HCPCS: 36415; 85025

== ENCOUNTER 2021-06-10 13:41 | Outpatient (REF) | payer OTHER, SELFPAY ==
[2021-06-10 14:18] LABS: MANUAL DIFF FLAG SCAN; Mean Corpuscular Volume 86.5 fL (80-98); PLT CLUMP 1; SCAN SMEAR FLAG 1
[2021-06-10 14:20] LABS: Hematocrit 41.7 % (42-52); Hemoglobin 14.4 g/dl (14.0-18.0); Imm Gran Abs Auto 0.04 X10*3/uL (0.00-0.03); Imm Gran Pct Auto 0.7 % (0.0-0.4); Lymphocytes Absolute Auto 1.2 X10*3/uL (1.2-4.9); Lymphocytes Percent Auto 20.6 % (20-40); Mean Corpuscular HGB Conc 34.5 g/dl (31.0-36.0); Mean Corpuscular Hemoglobin 29.9 pg (27.0-33.0); Monocytes Absolute Auto 0.3 X10*3/uL (0.1-1.2); Monocytes Percent Auto 5.3 % (2-11); Neutrophils Absolute Auto 4.3 X10*3/uL (2.0-8.3); Neutrophils Percent Auto 73.4 % (45-73); Red Blood Count 4.82 X10*6/uL (4.60-5.80); White Blood Count 5.9 X10*3/uL (4.8-10.8)
[2021-06-10 14:51] LABS: Platelet Count 72 X10*3/uL (160-400); SLIDE REVIEW VERIFIED
== END 2021-06-10 13:42 | disposition home or self-care (01) ==
LOC: HO.LABR 13:41
PROVIDERS: PCP Internal Medicine; Visit Provider Psychiatry & Neurology Psychiatry
DX: Z79.899 Other long term (current) drug therapy (principal)
CPT/HCPCS: 36415; 85025

== ENCOUNTER → 2021-06-25 12:27 | Outpatient (BNVA) | payer OTHER, SELFPAY | PROVIDERS: PCP Internal Medicine; Visit Provider Dietitian, Registered | DX: E11.42 Type 2 diabetes mellitus with diabetic polyneuropathy (principal); E66.01 Morbid (severe) obesity due to excess calories | CPT/HCPCS: 97803 ==

== ENCOUNTER 2021-07-06 08:16 | Outpatient (REF) | payer OTHER, SELFPAY ==
[2021-07-06 08:37] LABS: MANUAL DIFF FLAG NO
[2021-07-06 09:12] LABS: Hematocrit 39.9 % (42.0-52.0); Hemoglobin 13.9 g/dl (14.0-18.0); Imm Gran Abs Auto 0.02 X10*3/uL (0.00-0.03); Imm Gran Pct Auto 0.4 % (0.0-0.4); Lymphocytes Absolute Auto 1.3 X10*3/uL (1.2-4.9); Lymphocytes Percent Auto 24.4 % (20-40); Mean Corpuscular HGB Conc 34.8 g/dl (31.0-36.0); Mean Corpuscular Hemoglobin 29.5 pg (27.0-33.0); Mean Corpuscular Volume 84.7 fL (80.0-98.0); Mean Platelet Volume 10.5 fL (9.4-12.4); Monocytes Absolute Auto 0.3 X10*3/uL (0.1-1.2); Monocytes Percent Auto 6.2 % (2-11); Neutrophils Absolute Auto 3.8 x10*3/uL (2.0-8.3); Platelet Count 120 X10*3/uL (160-400); Red Blood Count 4.71 X10*6/uL (4.60-5.80); Red Cell Distribution Width 12.7 % (11.0-16.0); White Blood Count 5.5 X10*3/uL (4.8-10.8)
== END 2021-07-06 08:17 | disposition home or self-care (01) ==
LOC: HO.LABR 08:16
PROVIDERS: PCP Internal Medicine; Visit Provider Psychiatry & Neurology Psychiatry
DX: Z79.899 Other long term (current) drug therapy (principal)
CPT/HCPCS: 36415; 85025

== ENCOUNTER → 2021-07-26 16:00 | Outpatient (BNVA) | payer OTHER, SELFPAY | PROVIDERS: PCP Internal Medicine; Referring Provider Internal Medicine; Visit Provider Nurse Practitioner | DX: K59.04 Chronic idiopathic constipation (principal); R14.0 Abdominal distension (gaseous); F25.9 Schizoaffective disorder, unspecified | CPT/HCPCS: 99212 ==

== ENCOUNTER 2021-08-02 09:55 | Outpatient (REF) | payer OTHER, SELFPAY ==
[2021-08-02 10:09] LABS: MANUAL DIFF FLAG NO
[2021-08-02 11:23] LABS: Hematocrit 41.8 % (42.0-52.0); Hemoglobin 14.6 g/dl (14.0-18.0); Imm Gran Abs Auto 0.03 X10*3/uL (0.00-0.03); Imm Gran Pct Auto 0.5 % (0.0-0.4); Lymphocytes Absolute Auto 1.3 X10*3/uL (1.2-4.9); Lymphocytes Percent Auto 21.8 % (20-40); Mean Corpuscular HGB Conc 34.9 g/dl (31.0-36.0); Mean Corpuscular Hemoglobin 29.9 pg (27.0-33.0); Mean Corpuscular Volume 85.5 fL (80.0-98.0); Monocytes Absolute Auto 0.5 X10*3/uL (0.1-1.2); Neutrophils Absolute Auto 4.1 x10*3/uL (2.0-8.3); Neutrophils Percent Auto 69.7 % (45-73); Platelet Count 116 X10*3/uL (160-400); Red Blood Count 4.89 X10*6/uL (4.60-5.80); Red Cell Distribution Width 13.2 % (11.0-16.0); White Blood Count 5.9 X10*3/uL (4.8-10.8)
== END 2021-08-02 09:56 | disposition home or self-care (01) ==
LOC: HO.LABR 09:55
PROVIDERS: PCP Internal Medicine; Visit Provider Psychiatry & Neurology Psychiatry
DX: Z79.899 Other long term (current) drug therapy (principal)
CPT/HCPCS: 36415; 85025

== ENCOUNTER → 2021-08-03 09:15 | Outpatient (BNVA) | payer OTHER, SELFPAY | PROVIDERS: PCP Internal Medicine; Referring Provider Internal Medicine; Visit Provider Nurse Practitioner | DX: K59.04 Chronic idiopathic constipation (principal) | CPT/HCPCS: 99212 ==

== ENCOUNTER 2021-08-24 12:08 | Outpatient (REF) | payer OTHER, SELFPAY ==
[2021-08-24 12:33] LABS: MANUAL DIFF FLAG NO
[2021-08-24 13:26] LABS: Hematocrit 42.1 % (42.0-52.0); Hemoglobin 14.8 g/dl (14.0-18.0); Imm Gran Abs Auto 0.03 X10*3/uL (0.00-0.03); Imm Gran Pct Auto 0.4 % (0.0-0.4); Lymphocytes Absolute Auto 1.4 X10*3/uL (1.2-4.9); Lymphocytes Percent Auto 20.3 % (20-40); Mean Corpuscular HGB Conc 35.2 g/dl (31.0-36.0); Mean Corpuscular Hemoglobin 29.8 pg (27.0-33.0); Mean Corpuscular Volume 84.9 fL (80.0-98.0); Mean Platelet Volume 10.7 fL (9.4-12.4); Monocytes Absolute Auto 0.5 X10*3/uL (0.1-1.2); Monocytes Percent Auto 6.7 % (2-11); Neutrophils Percent Auto 72.6 % (45-73); Platelet Count 121 X10*3/uL (160-400); Red Blood Count 4.96 X10*6/uL (4.60-5.80); Red Cell Distribution Width 12.8 % (11.0-16.0); White Blood Count 6.9 X10*3/uL (4.8-10.8)
[2021-08-24 13:54] LABS: Appearance Urine CLEAR; Color Urine YELLOW; Glucose Urine UA NEG (NEG); Leukocyte Esterase Urine NEG (NEG); Nitrite Urine NEG (NEG); PH 5.5 (5.0-8.0); Urine Blood NEG (NEG); Urine Ketones NEG (NEG); Urine Protein NEG (NEG-TRACE)
[2021-08-24 13:57] LABS: Creatinine Urine 54.31 mg/dL; Microalbumin Urine < 5.0 mg/L
== END 2021-08-24 12:09 | disposition home or self-care (01) ==
LOC: HO.LABR 12:08
PROVIDERS: PCP Internal Medicine; Visit Provider Psychiatry & Neurology Psychiatry
DX: I12.9 Hypertensive chronic kidney disease with stage 1 through stage 4 chronic kidney disease, or unspecified chronic kidney disease (principal); N18.30 Chronic kidney disease, stage 3 unspecified; E11.22 Type 2 diabetes mellitus with diabetic chronic kidney disease; Z79.899 Other long term (current) drug therapy
CPT/HCPCS: 36415; 81003; 82043; 85025

== ENCOUNTER 2021-08-27 10:47 | Outpatient (REF) | payer OTHER, SELFPAY ==
[2021-08-27 13:19] LABS: Binax Now Covid-19 Ag Negative (Negative)
[2021-08-27 13:20] LABS: Binax Internal Control QC Valid; Binax Lot number: 9864
== END 2021-08-27 10:48 | disposition home or self-care (01) ==
LOC: HO.LAB 10:47
PROVIDERS: Visit Provider Internal Medicine
DX: Z20.822 Contact with and (suspected) exposure to COVID-19 (principal)
CPT/HCPCS: C9803

== ENCOUNTER → 2021-09-10 14:41 | Outpatient (BNVA) | payer OTHER, SELFPAY | PROVIDERS: PCP Internal Medicine; Referring Provider Internal Medicine; Visit Provider Nurse Practitioner | DX: K59.04 Chronic idiopathic constipation (principal) | CPT/HCPCS: 99212 ==

== ENCOUNTER 2021-09-22 09:10 | Outpatient (REF) | payer OTHER, SELFPAY ==
[2021-09-22 09:34] LABS: MANUAL DIFF FLAG NO
[2021-09-22 10:26] LABS: Imm Gran Abs Auto 0.03 X10*3/uL (0.00-0.03); Imm Gran Pct Auto 0.4 % (0.0-0.4); Lymphocytes Absolute Auto 1.6 X10*3/uL (1.2-4.9); Lymphocytes Percent Auto 23.7 % (20-40); Mean Corpuscular Hemoglobin 29.8 pg (27.0-33.0); Mean Corpuscular Volume 85.1 fL (80.0-98.0); Mean Platelet Volume 10.5 fL (9.4-12.4); Monocytes Absolute Auto 0.5 X10*3/uL (0.1-1.2); Monocytes Percent Auto 7.8 % (2-11); Neutrophils Absolute Auto 4.6 x10*3/uL (2.0-8.3); Neutrophils Percent Auto 68.1 % (45-73); Platelet Count 121 X10*3/uL (160-400); Red Cell Distribution Width 12.8 % (11.0-16.0); White Blood Count 6.7 X10*3/uL (4.8-10.8)
== END 2021-09-22 09:11 | disposition home or self-care (01) ==
LOC: HO.LABR 09:10
PROVIDERS: PCP Internal Medicine; Visit Provider Psychiatry & Neurology Psychiatry
DX: Z79.899 Other long term (current) drug therapy (principal)
CPT/HCPCS: 36415; 85025

== ENCOUNTER → 2021-10-01 11:17 | Outpatient (BNVA) | payer OTHER, SELFPAY | PROVIDERS: PCP Internal Medicine; Visit Provider Dietitian, Registered | DX: E11.42 Type 2 diabetes mellitus with diabetic polyneuropathy (principal); E66.01 Morbid (severe) obesity due to excess calories; Z68.35 Body mass index [BMI] 35.0-35.9, adult | CPT/HCPCS: 97803 ==

== ENCOUNTER 2021-10-04 13:29 | Emergency (ER) | payer OTHER, SELFPAY ==
--- NOTE | ~2021-10-04 | CT_ITS ---
EXAMINATION: CT ABDOMEN AND PELVIS WITHOUT CONTRAST CLINICAL INFORMATION: Abdominal pain COMPARISON: CT abdomen pelvis 03/16/2021 TECHNIQUE: Multidetector volumetric imaging was performed from the superior aspect of the liver through the pubic symphysis. Sagittal and coronal reformatted images were obtained on the technologist's workstation. This CT examination was performed using dose optimization techniques as appropriate, variously including the following: *Automated exposure control *Adjustment of mA and/or kV according to patient size (this includes techniques or standardized protocols for targeted exams where dose is matched to indication/reason for exam; i.e. extremities or head) *Use of iterative reconstruction technique DLP: 1058 mGy-cm FINDINGS: LUNG BASES: The visualized lung bases are unremarkable. LIVER, GALLBLADDER, AND BILIARY TREE: There is mild nodularity of the liver surface suggesting underlying cirrhosis. No focal liver lesion or intrahepatic bile duct dilatation. The gallbladder is unremarkable with no evidence of radiopaque gallstones, gallbladder wall thickening, or obvious pericholecystic inflammatory changes. PANCREAS: Diffuse fatty atrophy of the pancreas. No pancreatic mass or inflammation. No pancreatic duct dilatation. SPLEEN: Spleen is enlarged measuring 15 cm superior inferior. ADRENAL GLANDS: Unremarkable. KIDNEYS AND URETERS: Nonobstructive 2 mm stone lower pole of right kidney. No stone in the left kidney. No ureteral calculus or hydronephrosis. BLADDER: Unremarkable. GASTROINTESTINAL TRACT: No acute abnormality. There is no bowel wall thickening /edema. There is no bowel obstruction. There is a moderate to large volume of stool in the colon. This is similar to prior studies. The appendix is normal . The small bowel loops are unremarkable. The stomach is normal. There is no hiatal hernia. ABDOMINAL WALL: No significant hernia is appreciated. LYMPH NODES: Normal. VASCULAR: Unremarkable. PELVIC VISCERA: Prostate measures 5 cm transverse. OSSEOUS STRUCTURES: Multilevel degenerative spondylosis of the spine. CT/CT abdomen pelvis wo con IMPRESSION: 1. Slight nodular contour of the liver surface suggesting cirrhosis. 2. Splenomegaly. 3. Moderate to large-volume of stool in colon. This is similar to prior studies. No acute abnormality of the bowel. Normal appendix. No acute abnormality the abdomen or pelvis. Fleischner guidelines were followed.
[2021-10-04 14:23] VITALS: BP 148/75; PULSE 92; RESP 20; TEMP 36.8; O2SAT 97; BMI 37.5
--- NOTE | 2021-10-04 15:35 | ED_ITS ---
HPI - General Adult General Chief complaint: General Medical Stated complaint: constipation Time Seen by Provider: 10/04/21 15:27 Source: patient Mode of arrival: ambulatory Limitations: no limitations History of Present Illness HPI narrative: 60-year-old male with past medical history diabetes, cholestyramine a, obesity, schizoaffective disorder chronic idiopathic constipation is here today for complaining of constipation. Patient has a long history of constipation and bowel obstructions in the past. Patient has been seen by Susy Gordillo in GI. Last visit September 10. Patient is taking Linzess 290 mcg daily with 2 tablets of Dulcolax in the morning and 1 in the evening. Patient to magnesium citrate at home with minimal effect. Patient went to urgent care and was told to give himself an enema. Patient reports that he had enema and no affect from that. Patient reports that he mainly eats meet, sandwiches the only fruits he eats are bananas. Patient states that he also takes Citrucel and 2.5 mL of milk of magnesium. Onset (ago): day(s) Related Data Home Medications Medication Instructions Recorded Confirmed hydroxyzine pamoate 50 mg capsule 50 mg PO TID PRN 09/18/20 04/02/21 benztropine 0.5 mg tablet 1 tab PO BID 01/15/21 04/02/21 pen needle, diabetic 29 gauge x #100 ea 07/26/2108/15 (BD Ultra-Fine Original Pen Needle) Previous Rx's Medication Instructions Recorded lancets 28 gauge #100 ea 01/18/21 clozapine 100 mg tablet 300 mg PO BEDTIME 30 Days #90 tab 01/30/21 atorvastatin 10 mg tablet 10 mg PO DAILY #90 tab 02/16/21 flash glucose sensor (FreeStyle #2 ea 02/19/21 Jody 14 Day Sensor) metformin 500 mg tablet 1,000 mg PO BID 90 Days #360 tab 02/19/21 blood sugar diagnostic (FreeStyle 1 strip MISCELLANEOUS DAILY 30 03/01/21 Precision Obie Strips) Days #25 strip benzonatate 100 mg capsule 100 mg PO BID PRN #30 cap 03/06/21 (Obdulia Ivory) dulaglutide 1.5 mg/0.5 mL 1.5 mg (0.5 mL) SUBCUT QWEEK #2 ml 03/11/21 subcutaneous pen injector (Trulicity) ibuprofen 800 mg tablet 800 mg PO Q8H PRN 30 Days #90 tab 03/30/21 simethicone 180 mg capsule 180 mg PO TIDWMEAL 30 Days #90 cap 05/06/21 docusate sodium 100 mg capsule 100 mg PO BID #60 cap 07/26/21 insulin degludec 200 unit/mL (3 24 unit (0.12 mL) SUBCUT DAILY 90 07/26/21 mL) subcutaneous pen (Tresiba Days #10.8 ml FlexTouch U-200 insulin) linaclotide 290 mcg capsule 290 mcg PO QAM 30 Days #30 cap 07/26/21 (Linzess) furosemide 20 mg tablet 20 mg PO DAILY #90 tab 07/29/21 bisacodyl 5 mg tablet,delayed See Rx Instructions PO BEDTIME 30 08/03/21 release (Dulcolax (bisacodyl)) Days #90 tab magnesium citrate See Rx Instructions PO DAILY #300 08/03/21 ml cholecalciferol (vitamin D3) 25 25 mcg PO DAILY #90 cap 08/15/21 mcg (1,000 unit) capsule gabapentin 300 mg capsule 300 mg PO BEDTIME #90 cap 08/23/21 methylcellulose (laxative) 500 mg 1,000 mg PO TID 30 Days #180 tab 09/08/21 tablet (Fiber Therapy (methylcellulose)) magnesium hydroxide 2,400 mg/10 mL 2.5 ml PO BEDTIME PRN #1000 ml 09/10/21 oral suspension (Milk Of Magnesia Concentrated) magnesium citrate (Citrate of 150 ml PO DAILY PRN #296 ml 10/04/21 Magnesia) polyethylene glycol 3350 17 gram 17 g PO BID #30 ea 10/04/21 oral powder packet (Miralax) Allergies Allergy/AdvReac Type Severity Reaction Status Date / Time No Known Allergies Allergy Verified 10/04/21 14:22 [No Known Allergies*] Review of Systems Review of Systems: Constitutional : No Weight loss, No Fever, No Chills, No Night Sweats, No Fatigue, No Malaise ENT/Mouth : No Hearing loss, No Ear Pain, No Nasal Congestion, No Sinus Pain, No Hoarseness, No sore throat, No Rhinorrhea, No Swallowing Difficulty Eyes: No Eye Pain, No Swelling, No Redness, No Foreign Body, No Discharge, No Vision Changes Cardiovascular : No Chest Pain, No SOB, No Dyspnea on Exertion, No Orthopnea, No Edema, No Palpitations Respiratory : No Cough, No Sputum, No Wheezing, No Smoke Exposure, No Dyspnea Gastrointestinal : No Nausea, No Vomiting, No Diarrhea, Constipation, abdominal Pain, No Hematochezia, No Melena Genitourinary : no irregular bleeding, No Dysuria, No Urinary Frequency, No Hematuria, No Urinary Incontinence, No Urgency, No Flank Pain, No Urinary Flow Changes, No Hesitancy Musculoskeletal : No joint pain, No Myalgias, No Joint Swelling Skin : No Skin Lesions, No rash Neuro : No Weakness, No Numbness, No Paresthesias, No Loss of Consciousness, No Dizziness, No Headache Yes all other systems are reviewed and are negative [facility] Past Medical History Medical History (Updated 10/04/21 @ 18:02 by Chio Zelaya, [facility]) Benign essential hypertension Bowel obstruction Chronic idiopathic constipation Chronic kidney disease (CKD), stage III (moderate) Diabetes type 2, uncontrolled Diabetic polyneuropathy associated with 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 mellitus Dyslipidemia Elevated LFTs Hospital discharge follow-up 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 mellitus Knee osteoarthritis Knee pain, bilateral FPC (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 Melena Morbid obesity Obesity (BMI 30-39.9) Pain in both feet Pure hypercholesterolemia Right hand pain Schizo affective schizophrenia Schizoaffective disorder Type 2 diabetes mellitus with diabetic chronic kidney disease Surgical History History of repair of congenital cleft palate Hx of circumcision Family History Family History Father HTN (hypertension) Mother Diabetes Other Mental health problem Social History Social History Household Members: None Housing: Apartment Do you presently have visiting nurse or other home services: Yes Alcohol intake: current Alcohol intake frequency: a few times a week Alcohol type: beer Patient Tobacco Use Status: Former Tobacco user Tobacco use type: Cigarette Cigarettes Per Day: 15 Years Smoked: 8 quit 30 years ago Second Hand Smoke Exposure: No Advance Directives: Yes Advance Directives Information Provided: Yes Advance Directives on File: No service: No Current occupational status: employed Current occupation: [employer] Physical Exam ED Vital Signs: Vital Signs - 24 hr 10/04/21 14:23 10/04/21 16:05 Temperature 98.3 F 98.5 F Pulse Rate 92 84 Respiratory Rate 20 18 Blood Pressure 148/75 H 121/84 Pulse Oximetry 97 98 BMI result Body Mass Index 37.5 Const General: cooperative, healthy appearing and no acute distress Nutritional Appearance: obese Orientation/consciousness: patient oriented x3 Limitations: no limitations HENMT Head: Yes normal to inspection, Yes normocephalic and Yes atraumatic Neck Neck: Yes normal visual inspection, Yes full ROM, Yes trachea midline and Yes supple Resp Effort & Inspection: normal respiratory effort and able to speak in complete sentences Auscultation: clear to auscultation bilaterally Cardio Rate: regular rate Rhythm: regular rhythm Heart sounds: S1 normal heart sound present and S2 normal heart sound present GI Inspection: Yes normal to inspection and Yes distended Palpation (GI): Soft to palpation, not firm, nontender and no guarding Auscultation: normal bowel sounds Neuro General: patient oriented x3 Course Course Course Narrative: 60-year-old male with past medical history diabetes, elevated did a LFTs, hypercholesterolemia, obesity, schizoaffective disorder chronic idiopathic constipation is here today for complaining of constipation. Patient has a long history of constipation and bowel obstructions in the past. Patient has been seen by Susy Gordillo in GI. Last visit September 10. Patient is taking Linzess 290 mcg daily with 2 tablets of Dulcolax in the morning and 1 in the evening. Patient to magnesium citrate at home with minimal effect. Patient went to urgent care and was told to give himself an enema. Patient reports that whole had enema and no affect from that. Patient reports that he mainly eat meat and sandwiches and the only fruits he eats is bananas. Patient states that he also take Citrucel and 2.5 mL of milk of magnesium. Patient me by denies any abdominal pain or discomfort. We will do CT scan of the abdomen. Patient denies any nausea or vomiting. Will give him Mag citrate. Reevaluation(s) Reevaluation #1: CT scan negative for obstructions, no bowel wall thickening or edema, there is a moderate to large volume of stool in the colon. Patient received Mag citrate, no BM yet. Patient is passing gas. I will send patient home with MiraLax twice a day. Patient can continue taking his usual medications. He will follow-up with GI tomorrow morning for further management. Patient can also take half a bottle of Mag citrate daily for the next 2-3 days Medical Decision Making Imaging Data CT scan - abdomen: Attestation: I personally reviewed and interpreted this imaging study as follows: Radiologist's impression: IMPRESSION: ? 1. Slight nodular contour of the liver surface suggesting cirrhosis. 2. Splenomegaly. 3. Moderate to large-volume of stool in colon. This is similar to prior studies. No acute abnormality of the bowel. Normal appendix. No acute abnormality the abdomen or pelvis.? ? Discharge Plan Discharge Clinical Impression: Chronic idiopathic constipation Patient Disposition: Home, Self-Care Instructions: Constipation (ED), Fleet Enema (ED) Additional Instructions: You were seen here today for constipation please make sure you take medications that you were given by your job honer. In addition you may take MiraLax 1 packet in the morning with full glass of water and 1 packet in the afternoon with full glass of water. You may take magnesium citrate half a bottle only daily for the next 2-3 days. Please call GI office in the next 2-3 days for further management. Make sure that you eat more vegetables and drink plenty fluids. Prescriptions: New polyethylene glycol 3350 [Miralax] 17 gram powder in packet 17 g PO BID Qty: 30 2RF magnesium citrate [Citrate of Magnesia] Solution 150 ml PO DAILY PRN (Reason: constipation) Qty: 296 2RF Rx Instructions: Take half a bottle daily for the next 2-3 days No Action (DME) lancets 28 gauge misc See Rx Instructions .ROUTE .MEDSUPPLY Qty: 100 5RF Rx Instructions: As directed clozapine 100 mg tablet 300 mg PO BEDTIME 30 Days Qty: 90 0RF atorvastatin 10 mg tablet 10 mg PO DAILY Qty: 90 1RF blood sugar diagnostic [FreeStyle Precision Obie Strips] Strip 1 strip miscellaneous DAILY 30 Days Qty: 25 6RF Rx Instructions: Once a day for calibration ibuprofen 800 mg tablet 800 mg PO Q8H PRN (Reason: for pain) 30 Days Qty: 90 3RF Tresiba FlexTouch U-200 200 unit/mL (3 mL) insulin pen 24 unit subcut DAILY 90 Days Qty: 10.8 1RF Rx Instructions: Dose decreased furosemide 20 mg tablet 20 mg PO DAILY Qty: 90 0RF cholecalciferol (vitamin D3) 25 mcg (1,000 unit) capsule 25 mcg PO DAILY Qty: 90 12RF gabapentin 300 mg capsule 300 mg PO BEDTIME Qty: 90 0RF Fiber Therapy (m-cellulose) 500 mg tablet 1,000 mg PO TID 30 Days Qty: 180 2RF benzonatate [Tessalon Perles] 100 mg capsule 100 mg PO BID PRN (Reason: cough) Qty: 30 0RF benztropine 0.5 mg tablet 1 tab PO BID 0RF hydroxyzine pamoate 50 mg capsule 50 mg PO TID PRN (Reason: Anxiety) 0RF (DME) FreeStyle Jody 14 Day Sensor Kit See Rx Instructions .ROUTE .MEDSUPPLY Qty: 2 7RF Rx Instructions: every 14 days metformin 500 mg tablet 1,000 mg PO BID 90 Days Qty: 360 1RF Trulicity 1.5 mg/0.5 mL pen injector 1.5 mg subcut QWEEK Qty: 2 4RF Hold Instructions: Doctor's Order simethicone 180 mg capsule 180 mg PO TIDWMEAL 30 Days Qty: 90 6RF Rx Instructions: after meals,Please dispense in bottle and not blister packs!! (DME) pen needle, diabetic [BD Ultra-Fine Orig Pen Needle] 29 gauge x 1/2 needle See Rx Instructions ea .ROUTE DAILY Qty: 100 0RF Rx Instructions: As directed docusate sodium 100 mg capsule 100 mg PO BID Qty: 60 6RF Rx Instructions: TAKE WITH FOOD Linzess 290 mcg capsule 290 mcg PO QAM 30 Days Qty: 30 6RF magnesium citrate Solution See Rx Instructions PO DAILY Qty: 300 3RF Rx Instructions: DRINK 1/2 bottle if no BM after 30 mins drink 1/2 and continue until 2 bottles drank or have a BM PO daily; bisacodyl [Dulcolax (bisacodyl)] 5 mg tablet,delayed release (DR/EC) See Rx Instructions PO BEDTIME 30 Days Qty: 90 6RF Rx Instructions: 2 tabs qhs and 1 qam PO bedtime; magnesium hydroxide [Milk Of Magnesia Concentrated] 2,400 mg/10 mL suspension 2.5 ml PO BEDTIME PRN (Reason: constipation) Qty: 1000 6RF Rx Instructions: Sugar free formula if possible r/t diabetes Referrals: Luis Manuel Garcia MD [Primary Care Provider] - 10 days Gordillo, GEORGINA-C [Nurse Practitioner] - 1 week ([facility])
[2021-10-04] MEDS: Magnesium Citrate 300 ML SOLUTION PO (15:49)
[2021-10-04 16:05] VITALS: BP 121/84; PULSE 84; RESP 18; TEMP 36.9; O2SAT 98
[2021-10-04 18:00] VITALS: BP 111/76; PULSE 87; RESP 18; TEMP 36.9; O2SAT 98
== END 2021-10-04 18:15 | disposition home or self-care (01) ==
PROVIDERS: Emergency Provider Emergency Medicine; PCP Internal Medicine
DX: K59.00 Constipation, unspecified (principal); Z79.899 Other long term (current) drug therapy; F17.210 Nicotine dependence, cigarettes, uncomplicated; Z71.6 Tobacco abuse counseling
CPT/HCPCS: 74176; 99284

== ENCOUNTER → 2021-10-14 12:55 | Outpatient (BNVA) | payer OTHER, SELFPAY | PROVIDERS: PCP Internal Medicine; Referring Provider Internal Medicine; Visit Provider Nurse Practitioner | DX: K59.04 Chronic idiopathic constipation (principal); F25.9 Schizoaffective disorder, unspecified | CPT/HCPCS: 99212 ==

== ENCOUNTER 2021-10-21 10:17 | Outpatient (REF) | payer OTHER, SELFPAY ==
[2021-10-21 10:42] LABS: MANUAL DIFF FLAG NO
[2021-10-21 11:07] LABS: Hematocrit 41.5 % (42.0-52.0); Hemoglobin 14.3 g/dl (14.0-18.0); Imm Gran Abs Auto 0.03 X10*3/uL (0.00-0.03); Imm Gran Pct Auto 0.5 % (0.0-0.4); Lymphocytes Absolute Auto 1.3 X10*3/uL (1.2-4.9); Lymphocytes Percent Auto 20.4 % (20-40); Mean Corpuscular HGB Conc 34.5 g/dl (31.0-36.0); Mean Corpuscular Hemoglobin 29.6 pg (27.0-33.0); Mean Corpuscular Volume 85.9 fL (80.0-98.0); Mean Platelet Volume 10.5 fL (9.4-12.4); Monocytes Absolute Auto 0.4 X10*3/uL (0.1-1.2); Monocytes Percent Auto 6.7 % (2-11); Neutrophils Absolute Auto 4.6 x10*3/uL (2.0-8.3); Neutrophils Percent Auto 72.4 % (45-73); Platelet Count 113 X10*3/uL (160-400); Red Blood Count 4.83 X10*6/uL (4.60-5.80); White Blood Count 6.3 X10*3/uL (4.8-10.8)
[2021-10-21 11:18] LABS: Estimated Average Glucose 134 mg/dL; Hemoglobin A1c % 6.3 %
[2021-10-21 11:50] LABS: Alanine Aminotransferase 71 U/L (0-40); Albumin Level 4.3 g/dL (3.5-5.0); Alkaline Phosphatase 139 U/L (39-117); Anion Gap 12 (12-20); Aspartate Amino Transferase 40 U/L (5-37); Bilirubin Total 0.4 mg/dL (0.0-1.0); Blood Urea Nitrogen 22 mg/dL (9-16); Calcium 9.5 mg/dL (8.4-10.2); Carbon Dioxide 23 mmol/L (22-29); Chloride 108 mmol/L (96-108); Cholesterol 148 mg/dL; Estimated Glomerular Filt Rate > 60; Glucose Fasting 201 mg/dL (60-99); HDL Cholesterol 32 mg/dL; LDL Cholesterol Calculated 84 mg/dl; Potassium 4.4 mmol/L (3.3-5.1); Sodium 139 mmol/L (135-145); Total Protein 7.3 g/dL (6.5-8.0); Triglycerides 162 mg/dL
[2021-10-21 11:57] LABS: TSH reflex Free T4 2.61 uIU/mL (0.32-4.0); Vitamin D 25-OH Total 42.3 ng/mL (>30)
[2021-10-21 12:01] LABS: Appearance Urine CLEAR; Glucose Urine UA NEG (NEG); Leukocyte Esterase Urine NEG (NEG); Nitrite Urine NEG (NEG); PH 5.5 (5.0-8.0); Specific Gravity - Urine <= 1.005 (1.005-1.025); Urine Blood NEG (NEG); Urine Ketones NEG (NEG); Urine Protein NEG (NEG-TRACE)
[2021-10-21 12:14] LABS: Color Urine STRAW
[2021-10-21 12:29] LABS: Creatinine Urine 19.92 mg/dL; Microalbumin Urine < 5.0 mg/L
== END 2021-10-21 10:18 | disposition home or self-care (01) ==
LOC: HO.LAB 10:17
PROVIDERS: PCP Internal Medicine; Visit Provider Psychiatry & Neurology Psychiatry
DX: I10 Essential (primary) hypertension (principal); E55.9 Vitamin D deficiency, unspecified; E78.00 Pure hypercholesterolemia, unspecified; E11.9 Type 2 diabetes mellitus without complications; K59.04 Chronic idiopathic constipation; Z79.899 Other long term (current) drug therapy
CPT/HCPCS: 36415; 80053; 80061; 81003; 82043; 82306; 83036; 84443; 85025

== ENCOUNTER → 2021-10-27 10:15 | Outpatient (BNVA) | payer OTHER, SELFPAY | PROVIDERS: PCP Internal Medicine; Visit Provider Nurse Practitioner Gerontology | DX: E11.649 Type 2 diabetes mellitus with hypoglycemia without coma (principal); E11.42 Type 2 diabetes mellitus with diabetic polyneuropathy; E11.22 Type 2 diabetes mellitus with diabetic chronic kidney disease; N18.30 Chronic kidney disease, stage 3 unspecified; E78.00 Pure hypercholesterolemia, unspecified; E66.01 Morbid (severe) obesity due to excess calories; Z79.4 Long term (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; Z68.36 Body mass index [BMI] 36.0-36.9, adult | CPT/HCPCS: 82947; 99212 ==

== ENCOUNTER 2021-11-24 08:51 | Outpatient (REF) | payer OTHER, SELFPAY ==
[2021-11-24 09:10] LABS: MANUAL DIFF FLAG NO
[2021-11-24 09:23] LABS: Hematocrit 43.5 % (42.0-52.0); Hemoglobin 15.2 g/dl (14.0-18.0); Imm Gran Abs Auto 0.03 X10*3/uL (0.00-0.03); Imm Gran Pct Auto 0.5 % (0.0-0.4); Lymphocytes Absolute Auto 1.5 X10*3/uL (1.2-4.9); Mean Corpuscular HGB Conc 34.9 g/dl (31.0-36.0); Mean Corpuscular Hemoglobin 29.5 pg (27.0-33.0); Mean Corpuscular Volume 84.3 fL (80.0-98.0); Mean Platelet Volume 10.3 fL (9.4-12.4); Monocytes Absolute Auto 0.5 X10*3/uL (0.1-1.2); Monocytes Percent Auto 7.1 % (2-11); Neutrophils Absolute Auto 4.4 x10*3/uL (2.0-8.3); Neutrophils Percent Auto 69.4 % (45-73); Platelet Count 123 X10*3/uL (160-400); Red Blood Count 5.16 X10*6/uL (4.60-5.80); White Blood Count 6.3 X10*3/uL (4.8-10.8)
== END 2021-11-24 08:52 | disposition home or self-care (01) ==
LOC: HO.LABR 08:51
PROVIDERS: PCP Internal Medicine; Visit Provider Psychiatry & Neurology Psychiatry
DX: Z79.899 Other long term (current) drug therapy (principal)
CPT/HCPCS: 36415; 85025

== ENCOUNTER → 2021-12-10 10:53 | Outpatient (BNVA) | payer OTHER, SELFPAY | PROVIDERS: PCP Internal Medicine; Referring Provider Internal Medicine; Visit Provider Nurse Practitioner | DX: K59.04 Chronic idiopathic constipation (principal); K56.609 Unspecified intestinal obstruction, unspecified as to partial versus complete obstruction | CPT/HCPCS: 99212 ==

== ENCOUNTER 2021-12-22 08:43 | Outpatient (REF) | payer OTHER, SELFPAY ==
[2021-12-22 09:02] LABS: MANUAL DIFF FLAG NO
[2021-12-22 09:34] LABS: Basophils Percent Auto 0.2 % (0-2); Hematocrit 42.1 % (42.0-52.0); Hemoglobin 14.7 g/dl (14.0-18.0); Imm Gran Abs Auto 0.04 X10*3/uL (0.00-0.03); Imm Gran Pct Auto 0.6 % (0.0-0.4); Lymphocytes Absolute Auto 1.4 X10*3/uL (1.2-4.9); Lymphocytes Percent Auto 21.3 % (20-40); Mean Corpuscular HGB Conc 34.9 g/dl (31.0-36.0); Mean Corpuscular Hemoglobin 29.5 pg (27.0-33.0); Mean Corpuscular Volume 84.5 fL (80.0-98.0); Mean Platelet Volume 10.7 fL (9.4-12.4); Monocytes Absolute Auto 0.6 X10*3/uL (0.1-1.2); Monocytes Percent Auto 8.3 % (2-11); Neutrophils Absolute Auto 4.6 x10*3/uL (2.0-8.3); Neutrophils Percent Auto 69.6 % (45-73); Platelet Count 122 X10*3/uL (160-400); Red Blood Count 4.98 X10*6/uL (4.60-5.80); Red Cell Distribution Width 13.1 % (11.0-16.0); White Blood Count 6.7 X10*3/uL (4.8-10.8)
== END 2021-12-22 08:44 | disposition home or self-care (01) ==
LOC: HO.LABR 08:43
PROVIDERS: PCP Internal Medicine; Visit Provider Psychiatry & Neurology Psychiatry
DX: Z79.899 Other long term (current) drug therapy (principal)
CPT/HCPCS: 36415; 85025

== ENCOUNTER → 2021-12-29 09:34 | Outpatient (BNVA) | payer OTHER, SELFPAY | PROVIDERS: PCP Internal Medicine; Visit Provider Dietitian, Registered | DX: E11.42 Type 2 diabetes mellitus with diabetic polyneuropathy (principal); E66.01 Morbid (severe) obesity due to excess calories; Z68.36 Body mass index [BMI] 36.0-36.9, adult | CPT/HCPCS: 97803 ==

== ENCOUNTER → 2022-01-14 10:46 | Outpatient (BNVA) | payer OTHER, SELFPAY | PROVIDERS: PCP Internal Medicine; Referring Provider Internal Medicine; Visit Provider Nurse Practitioner | DX: K59.04 Chronic idiopathic constipation (principal) | CPT/HCPCS: 99212 ==

== ENCOUNTER 2022-01-16 18:38 | Emergency (ER) | payer OTHER, SELFPAY ==
--- NOTE | ~2022-01-16 | CT_ITS ---
EXAMINATION: CT HEAD WITHOUT CONTRAST CLINICAL INFORMATION: Vertigo COMPARISON: Head CT 02/04/2016 TECHNIQUE: Imaging was performed from the skull base to vertex without intravenous administration of contrast. This CT examination was performed using dose optimization techniques as appropriate, variously including the following: *Automated exposure control *Adjustment of mA and/or kV according to patient size (this includes techniques or standardized protocols for targeted exams where dose is matched to indication/reason for exam; i.e. extremities or head) *Use of iterative reconstruction technique Total exam dose length product: 760 mGy-cm FINDINGS: No intra or extra-axial fluid collection, hemorrhage, or mass. No ventriculomegaly. No midline shift or herniation. Basal cisterns are patent. Azar-white matter differentiation is maintained. No territorial encephalomalacia. No significant volume loss. Unchanged small focus of hypoattenuation in the inferior left lentiform nucleus likely a dilated perivascular space. Minimal patchy hypoattenuation in the supratentorial white matter, nonspecific likely sequela of remote chronic small vessel ischemic change No calvarial fracture or soft tissue abnormality. The mastoid air cells and visualized portions of the paranasal sinuses are well aerated. Incidental finding of a osseous defect cleft through the anterior left aspect of the palate. CT/CT head/brain wo con IMPRESSION: 1. No acute intracranial pathology.
[2022-01-16 18:52] VITALS: BP 126/82; PULSE 86; RESP 18; TEMP 36.7; O2SAT 97; BMI 36.4
--- NOTE | 2022-01-16 21:12 | ECG_ITS ---
Test Reason : DIZZINESS Blood Pressure : / mmHG Vent. Rate : 076 BPM Atrial Rate : 076 BPM P-R Int : 164 ms QRS Dur : 104 ms QT Int : 442 ms P-R-T Axes : 040 -16 005 degrees QTc Int : 497 ms Sinus rhythm with Premature atrial complexes Prolonged QT Abnormal ECG When compared with ECG of 15-JAN-2021 21:35, Premature atrial complexes are now Present Minimal criteria for Anterior infarct are no longer Present Referred By: Celine Jo Electronically Signed By:NEVILLE SOTO
[2022-01-16 21:17] VITALS: BP 108/72; PULSE 75; RESP 16; TEMP 37.1; O2SAT 98
--- NOTE | 2022-01-16 21:28 | ED.DIZZY ---
HPI - Dizziness General Chief Complaint: Dizziness Stated Complaint: dizziness, weakness, head pain Time Seen by Provider: 01/16/22 21:07 History of Present Illness HPI Narrative: Patient is a 72-year-old male with a history of psychiatric illness history of diabetes, hypertension presented today with 3 day history of having spinning sensation every time he lies down. Is very specific with certain change in position. It is a spinning sensation it is extremely comes on. Relieved with staying still. Patient also was driving work this morning. Once he got in the car he felt very lightheaded. Then had the spinning sensation and also feel the room to be doc in. Never had any focal weakness. Never had any chest pain shortness of breath, diaphoresis. Gradually the symptoms resolved. Patient denies any fever chills any coughing congestion upper respiratory symptoms. There is no bloody stool. Never had similar symptoms in the past. No history of blood clots in the past. No new leg swelling. Patient from home. No changes in environment. No changes in medication. Related Data Home Medications Medication Instructions Recorded Confirmed hydroxyzine pamoate 50 mg capsule 50 mg PO TID PRN 09/18/20 12/30/21 benztropine 0.5 mg tablet 1 tab PO BID 01/15/21 12/30/21 pen needle, diabetic 29 gauge x #100 ea 07/26/21 12/30/2108/15 (BD Ultra-Fine Original Pen Needle) docusate sodium 100 mg capsule 100 mg PO BID 10/14/21 12/30/21 Previous Rx's Medication Instructions Recorded lancets 28 gauge #100 ea 01/18/21 clozapine 100 mg tablet 300 mg PO BEDTIME 30 Days #90 tab 01/30/21 metformin 500 mg tablet 1,000 mg PO BID 90 Days #360 tab 02/19/21 benzonatate 100 mg capsule 100 mg PO BID PRN #30 cap 03/06/21 (Tessalon Perles) ibuprofen 800 mg tablet 800 mg PO Q8H PRN 30 Days #90 tab 03/30/21 linaclotide 290 mcg capsule 290 mcg PO QAM 30 Days #30 cap 07/26/21 (Linzess) bisacodyl 5 mg tablet,delayed See Rx Instructions PO BEDTIME 30 08/03/21 release (Dulcolax (bisacodyl)) Days #90 tab cholecalciferol (vitamin D3) 25 25 mcg PO DAILY #90 cap 08/15/21 mcg (1,000 unit) capsule blood sugar diagnostic (FreeStyle 1 strip MISCELLANEOUS DAILY 30 10/12/21 Precision Obie Strips) Days #25 strip flash glucose sensor (FreeStyle #2 ea 10/12/21 Jody 14 Day Sensor) magnesium citrate (Citrate of 150 ml PO DAILY #296 ml 10/14/21 Magnesia) simethicone 180 mg capsule 180 mg PO TIDWMEAL 30 Days #90 cap 10/14/21 atorvastatin 10 mg tablet 10 mg PO DAILY #90 tab 10/18/21 furosemide 20 mg tablet 20 mg PO DAILY #90 tab 10/18/21 magnesium citrate See Rx Instructions PO DAILY #300 11/04/21 ml magnesium hydroxide 400 mg/5 mL 20 ml PO BEDTIME #355 ml 11/05/21 oral suspension (Milk of Magnesia) gabapentin 300 mg capsule 300 mg PO BEDTIME #90 cap 11/18/21 insulin degludec 200 unit/mL (3 28 unit (0.14 mL) SUBCUT DAILY 90 11/23/21 mL) subcutaneous pen (Tresiba Days #12.6 ml FlexTouch U-200 insulin) empagliflozin 25 mg tablet 25 mg PO QAM #30 tab 12/10/21 (Jardiance) lidocaine 5 % topical patch 2 patch TOPICAL DAILY PRN #30 ea 01/11/22 methylcellulose (laxative) 500 mg 1,000 mg PO TID #180 tab 01/14/22 tablet (Fiber Therapy (methylcellulose)) polyethylene glycol 3350 17 gram 17 g PO BID #30 ea 01/14/22 oral powder packet (Miralax) meclizine 25 mg tablet 25 mg PO QID PRN #10 tab 01/17/22 Allergies Allergy/AdvReac Type Severity Reaction Status Date / Time No Known Allergies Allergy Verified 01/16/22 18:52 [No Known Allergies*] Review of Systems Review of Systems: No fever no chills no focal weakness Yes all other systems are reviewed and are negative PMFSH Past Medical History Attestation statement: The following information was validated with the patient. Medical History Benign essential hypertension Bowel obstruction Chronic idiopathic constipation Chronic kidney disease (CKD), stage III (moderate) Diabetes type 2, uncontrolled Diabetic polyneuropathy associated with 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 mellitus Dyslipidemia Elevated LFTs Healed wound Hospital discharge follow-up 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 mellitus Knee osteoarthritis Knee pain, bilateral 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 Melena Morbid obesity Obesity (BMI 30-39.9) Pain in both feet Pure hypercholesterolemia Right hand pain Schizo affective schizophrenia Schizoaffective disorder Type 2 diabetes mellitus with diabetic chronic kidney disease Surgical History History of repair of congenital cleft palate Hx of circumcision Family History Family History Father HTN (hypertension) Mother Diabetes Other Mental health problem Social History Social History Household Members: None Housing: Apartment Do you presently have visiting nurse or other home services: Yes Alcohol intake: current Alcohol intake frequency: a few times a month Alcohol type: beer, wine and hard liquor Patient Tobacco Use Status: Former Tobacco user Tobacco use type: Cigarette Cigarettes Per Day: 15 Years Smoked: 8 quit 30 years ago e-Cigarette/Vaping Use: Never Used Second Hand Smoke Exposure: No Use of substances other than those prescribed or required for medical reasons: No Advance Directives: No Advance Directives Information Provided: Yes service: No Current occupational status: employed Current occupation: [employer] Cognitive needs: No Hearing needs: No Vision needs: Yes (glasses) Physical Exam Vital Signs: Vital Signs: Last Vital Signs Temp 97.8 F 01/16/22 22:33 Pulse 79 01/16/22 22:33 Resp 16 01/16/22 22:33 BP 128/80 01/16/22 22:33 Pulse Ox 98 01/16/22 22:33 BMI result Body Mass Index 36.4 Appearance: Alert. Oriented X3. No acute distress. Eyes: Pupils equal, round and reactive to light. ENT: Pharynx normal. Neck: Normal inspection. Neck supple. No lymph nodes noted. No crepitus CVS: Normal heart rate and rhythm. Pulses normal. Normal S1 and S2 Respiratory: No respiratory distress. Breath sounds normal. No Wheezing. No rales Abdomen: Soft and nontender. No rigidity. No distention. good BS x4 Skin: Skin warm and dry. Normal skin color. Normal skin turgor. Extremities: No lower extremity edema. Neurovascular intact to all extremities. No Lacerations. No Rash Neuro: Oriented X 3. No motor deficit. No sensory deficit. Moving all extermities. No slurred speech. Symptoms of spinning reproduce on sitting patient up rapidly. It improves with time. NIH Stroke Scale Internal: Initial- Upon Arrival Time: 21:30 Level of Consciousness: Alert Level of Consciousness Questions: Answers both questions correctly Level of Consciousness Commands: Performs both tasks correctly Best Gaze: Normal Visual: No visual loss Facial Palsy: Normal Motor Arm (Right): No drift Motor Arm (Left): No drift Motor Leg (Right): No drift Motor Leg (Left): No drift Limb Ataxia: Absent Sensory: Normal Best Language: No aphasia Dysarthia: Normal Extinction and Inattention: No abnormality Score: 0 MDM - Dizziness MDM Narrative Medical decision making narrative: CT scan of the head was grossly negative for any acute evidence of bleeding. Electrolyte consistent with some mild dehydration. Patient's symptom worse with certain position. Consistent with having peripheral vertigo. Patient's symptom fairly extreme when it happens. There is no neurological deficits. Patient well appearing currently. Will discharge patient home. In stable condition. Patient's EKG showed a sinus pattern heart rate is 75 DE QRS QT within normal limits there is no acute ST segment elevation noted. Lab Data Result diagrams: 01/16/22 22:26 01/16/22 22:26 Labs: Lab Results 01/16/22 01/16/22 01/16/22 Range/Units 22:26 22:26 22:26 WBC 7.1 (4.8-10.8) X10*3/uL RBC 4.71 (4.60-5.80) X10*6/uL Hgb 14.0 (14.0-18.0) g/dl Hct 40.1 L (42.0-52.0) % MCV 85.1 (80.0-98.0) fL MCH 29.7 (27.0-33.0) pg MCHC 34.9 (31.0-36.0) g/dl RDW 13.2 (11.0-16.0) % Plt Count 116 L (160-400) X10*3/uL MPV 10.3 (9.4-12.4) fL Immature Gran % (Auto) 0.4 (0.0-0.4) % Neut % (Auto) 64.4 (45-73) % Lymph % (Auto) 27.7 (20-40) % [place] % (Auto) 7.5 (2-11) % Eos % (Auto) 0.0 (0-4) % Baso % (Auto) 0.0 (0-2) % Lymph # (Auto) 2.0 (1.2-4.9) X10*3/uL [place] # (Auto) 0.5 (0.1-1.2) X10*3/uL Eos # (Auto) 0.0 (0.0-0.4) X10*3/uL Baso # (Auto) 0.0 (0.0-0.2) X10*3/uL Abs Immat Gran (auto) 0.03 (0.00-0.03) X10*3/uL Absolute Neuts (auto) 4.6 (2.0-8.3) x10*3/uL Absolute Nucleated RBC 0.000 (0.0-0.012) X10*3/uL Nucleated RBC % (auto) 0.0 (0.0-0.2) /100WBC Sodium 140 (135-145) mmol/L Potassium 3.9 (3.3-5.1) mmol/L Chloride 109 H (96-108) mmol/L Carbon Dioxide 21 L (22-29) mmol/L Anion Gap 14 (12-20) BUN 22 H (9-16) mg/dL Creatinine 1.43 H (0.5-1.4) mg/dL Estim Creat Clear Calc 77.1 Estimated GFR 51 Random Glucose 86 D (60-115) mg/dL Calcium 9.1 (8.4-10.2) mg/dL Troponin I High Sens 4.4 (<3.5-35.0) ng/L Urine Color Urine Appearance Urine pH (5.0-8.0) Ur Specific [place] (1.005-1.025) Urine Protein (NEG-TRACE) MG/DL Urine Glucose (UA) (NEG) MG/DL Urine Ketones (NEG) MG/DL Urine Blood (NEG) Urine Nitrite (NEG) Ur Leukocyte Esterase (NEG) Urine RBC (0) /HPF Urine WBC (0-4) /HPF Ur Squamous Epith Cells /LPF Urine Bacteria /LPF Ethyl Alcohol mg/dL 01/16/22 01/16/22 Range/Units 22:26 22:26 WBC (4.8-10.8) X10*3/uL RBC (4.60-5.80) X10*6/uL Hgb (14.0-18.0) g/dl Hct (42.0-52.0) % MCV (80.0-98.0) fL MCH (27.0-33.0) pg MCHC (31.0-36.0) g/dl RDW (11.0-16.0) % Plt Count (160-400) X10*3/uL MPV (9.4-12.4) fL Immature Gran % (Auto) (0.0-0.4) % Neut % (Auto) (45-73) % Lymph % (Auto) (20-40) % [place] % (Auto) (2-11) % Eos % (Auto) (0-4) % Baso % (Auto) (0-2) % Lymph # (Auto) (1.2-4.9) X10*3/uL [place] # (Auto) (0.1-1.2) X10*3/uL Eos # (Auto) (0.0-0.4) X10*3/uL Baso # (Auto) (0.0-0.2) X10*3/uL Abs Immat Gran (auto) (0.00-0.03) X10*3/uL Absolute Neuts (auto) (2.0-8.3) x10*3/uL Absolute Nucleated RBC (0.0-0.012) X10*3/uL Nucleated RBC % (auto) (0.0-0.2) /100WBC Sodium (135-145) mmol/L Potassium (3.3-5.1) mmol/L Chloride (96-108) mmol/L Carbon Dioxide (22-29) mmol/L Anion Gap (12-20) BUN (9-16) mg/dL Creatinine (0.5-1.4) mg/dL Estim Creat Clear Calc Estimated GFR Random Glucose (60-115) mg/dL Calcium (8.4-10.2) mg/dL Troponin I High Sens (<3.5-35.0) ng/L Urine Color YELLOW Urine Appearance CLEAR Urine pH 6.0 (5.0-8.0) Ur Specific [place] <= 1.005 (1.005-1.025) Urine Protein NEG (NEG-TRACE) MG/DL Urine Glucose (UA) >=1000 H (NEG) MG/DL Urine Ketones NEG (NEG) MG/DL Urine Blood NEG (NEG) Urine Nitrite NEG (NEG) Ur Leukocyte Esterase NEG (NEG) Urine RBC 0-2 (0) /HPF Urine WBC 0-2 (0-4) /HPF Ur Squamous Epith Cells TRACE /LPF Urine Bacteria TRACE /LPF Ethyl Alcohol < 10 mg/dL Discharge Plan Discharge Clinical Impression: Vertigo Patient Disposition: Home, Self-Care Instructions: Vertigo (ED) Prescriptions: New meclizine 25 mg tablet 25 mg PO QID PRN (Reason: dizziness) Qty: 10 0RF No Action (DME) lancets 28 gauge misc See Rx Instructions .ROUTE .MEDSUPPLY Qty: 100 5RF Rx Instructions: As directed clozapine 100 mg tablet 300 mg PO BEDTIME 30 Days Qty: 90 0RF ibuprofen 800 mg tablet 800 mg PO Q8H PRN (Reason: for pain) 30 Days Qty: 90 3RF cholecalciferol (vitamin D3) 25 mcg (1,000 unit) capsule 25 mcg PO DAILY Qty: 90 12RF FreeStyle Precision Obie Strips Strip 1 strip miscellaneous DAILY 30 Days Qty: 25 6RF Rx Instructions: Once a day for calibration (DME) FreeStyle Jody 14 Day Sensor Kit See Rx Instructions .ROUTE .MEDSUPPLY Qty: 2 7RF Rx Instructions: every 14 days atorvastatin 10 mg tablet 10 mg PO DAILY Qty: 90 0RF furosemide 20 mg tablet 20 mg PO DAILY Qty: 90 0RF magnesium citrate Solution See Rx Instructions PO DAILY Qty: 300 3RF Rx Instructions: DRINK 1/2 bottle if no BM after 30 mins drink 1/2 and continue until 2 bottles drank or have a BM PO daily; magnesium hydroxide [Milk of Magnesia] 400 mg/5 mL suspension 20 ml PO BEDTIME Qty: 355 6RF gabapentin 300 mg capsule 300 mg PO BEDTIME Qty: 90 0RF Tresiba FlexTouch U-200 200 unit/mL (3 mL) insulin pen 28 unit subcut DAILY 90 Days Qty: 12.6 1RF Jardiance 25 mg tablet 25 mg PO QAM Qty: 30 6RF lidocaine 5 % adhesive patch,medicated 2 patch topical DAILY PRN (Reason: pain) Qty: 30 1RF Rx Instructions: leave on most painful area for up to 12 hrs Fiber Therapy (m-cellulose) 500 mg tablet 1,000 mg PO TID Qty: 180 0RF benzonatate [Tessalon Perles] 100 mg capsule 100 mg PO BID PRN (Reason: cough) Qty: 30 0RF benztropine 0.5 mg tablet 1 tab PO BID 0RF hydroxyzine pamoate 50 mg capsule 50 mg PO TID PRN (Reason: Anxiety) 0RF metformin 500 mg tablet 1,000 mg PO BID 90 Days Qty: 360 1RF docusate sodium 100 mg capsule 100 mg PO BID 0RF magnesium citrate [Citrate of Magnesia] Solution 150 ml PO DAILY Qty: 296 2RF Rx Instructions: Take half a bottle daily for the next 2-3 days simethicone 180 mg capsule 180 mg PO TIDWMEAL 30 Days Qty: 90 6RF Rx Instructions: after meals,Please dispense in bottle and not blister packs!! (DME) pen needle, diabetic [BD Ultra-Fine Orig Pen Needle] 29 gauge x 1/2 needle See Rx Instructions ea .ROUTE DAILY Qty: 100 0RF Rx Instructions: As directed Linzess 290 mcg capsule 290 mcg PO QAM 30 Days Qty: 30 6RF bisacodyl [Dulcolax (bisacodyl)] 5 mg tablet,delayed release (DR/EC) See Rx Instructions PO BEDTIME 30 Days Qty: 90 6RF Rx Instructions: 2 tabs qhs and 1 qam PO bedtime; polyethylene glycol 3350 [Miralax] 17 gram powder in packet 17 g PO BID Qty: 30 2RF Referrals: Physician,Unknown J [Primary Care Provider] -
[2022-01-16 22:30] LABS: MANUAL DIFF FLAG NO
[2022-01-16 22:32] LABS: Imm Gran Abs Auto 0.03 X10*3/uL (0.00-0.03); Imm Gran Pct Auto 0.4 % (0.0-0.4); PLT CLUMP 1; Red Cell Distribution Width 13.2 % (11.0-16.0); SCAN SMEAR FLAG 1
[2022-01-16 22:33] VITALS: BP 128/80; PULSE 79; RESP 16; TEMP 36.6; O2SAT 98
[2022-01-16 22:33] LABS: Hematocrit 40.1 % (42.0-52.0); Lymphocytes Percent Auto 27.7 % (20-40); Mean Corpuscular HGB Conc 34.9 g/dl (31.0-36.0); Mean Corpuscular Hemoglobin 29.7 pg (27.0-33.0); Mean Corpuscular Volume 85.1 fL (80.0-98.0); Mean Platelet Volume 10.3 fL (9.4-12.4); Monocytes Absolute Auto 0.5 X10*3/uL (0.1-1.2); Monocytes Percent Auto 7.5 % (2-11); Neutrophils Absolute Auto 4.6 x10*3/uL (2.0-8.3); Neutrophils Percent Auto 64.4 % (45-73); Red Blood Count 4.71 X10*6/uL (4.60-5.80)
[2022-01-16 22:34] LABS: Platelet Count 116 X10*3/uL (160-400); White Blood Count 7.1 X10*3/uL (4.8-10.8)
[2022-01-16 22:37] LABS: Appearance Urine CLEAR; Color Urine YELLOW; Glucose Urine UA >=1000 MG/DL (NEG); Leukocyte Esterase Urine NEG (NEG); Nitrite Urine NEG (NEG); Specific Gravity - Urine <= 1.005 (1.005-1.025); Urine Blood NEG (NEG); Urine Ketones NEG (NEG); Urine Protein NEG (NEG-TRACE)
[2022-01-16 22:48] LABS: Bacteria Urine TRACE /LPF; RBC Urine 0-2 /HPF (0); Squamous Epithelial Cell Urine TRACE /LPF; WBC Urine 0-2 /HPF (0-4)
[2022-01-16 22:57] LABS: Ethanol < 10 mg/dL
[2022-01-16 22:59] LABS: Anion Gap 14 (12-20); Blood Urea Nitrogen 22 mg/dL (9-16); Calcium 9.1 mg/dL (8.4-10.2); Carbon Dioxide 21 mmol/L (22-29); Chloride 109 mmol/L (96-108); Creatinine Clr Calc Pharmacy 77.1; Estimated Glomerular Filt Rate 51; Glucose Random 86 mg/dL (60-115); Potassium 3.9 mmol/L (3.3-5.1); Sodium 140 mmol/L (135-145)
[2022-01-16 23:07] LABS: Troponin-I High Sensitivity 4.4 ng/L (<3.5-35.0)
[2022-01-16] MEDS: Meclizine HCl 25 MG TABLET PO (23:53)
--- NOTE | 2022-01-16 23:54 | PC.NURSE ---
pt a&ox3, vss, pt reports that dizziness has mostly resolved, medicated per provider order. no new orders at this time.
== END 2022-01-17 01:01 | disposition home or self-care (01) ==
PROVIDERS: Emergency Provider Emergency Medicine Emergency Medical Services
DX: R42 Dizziness and giddiness (principal); R53.1 Weakness; E11.22 Type 2 diabetes mellitus with diabetic chronic kidney disease; I12.9 Hypertensive chronic kidney disease with stage 1 through stage 4 chronic kidney disease, or unspecified chronic kidney disease; N18.30 Chronic kidney disease, stage 3 unspecified; E78.00 Pure hypercholesterolemia, unspecified; Z87.891 Personal history of nicotine dependence; Z79.4 Long term (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; Z79.02 Long term (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 of antithrombotics/antiplatelets; Z79.899 Other long term (current) drug therapy
CPT/HCPCS: 36415; 70450; 80048; 81001; 82077; 84484; 85025; 93005; 99284

== ENCOUNTER 2022-01-19 08:57 | Outpatient (REF) | payer OTHER, SELFPAY ==
[2022-01-19 09:12] LABS: MANUAL DIFF FLAG NO
[2022-01-19 09:40] LABS: Basophils Percent Auto 0.2 % (0-2); Hematocrit 42.3 % (42.0-52.0); Hemoglobin 14.8 g/dl (14.0-18.0); Imm Gran Abs Auto 0.03 X10*3/uL (0.00-0.03); Imm Gran Pct Auto 0.6 % (0.0-0.4); Lymphocytes Absolute Auto 1.2 X10*3/uL (1.2-4.9); Mean Corpuscular Volume 85.6 fL (80.0-98.0); Mean Platelet Volume 10.3 fL (9.4-12.4); Monocytes Absolute Auto 0.5 X10*3/uL (0.1-1.2); Monocytes Percent Auto 8.4 % (2-11); Neutrophils Absolute Auto 3.7 x10*3/uL (2.0-8.3); Neutrophils Percent Auto 68.8 % (45-73); Platelet Count 108 X10*3/uL (160-400); Red Blood Count 4.94 X10*6/uL (4.60-5.80); Red Cell Distribution Width 13.1 % (11.0-16.0); White Blood Count 5.4 X10*3/uL (4.8-10.8)
== END 2022-01-19 08:58 | disposition home or self-care (01) ==
LOC: HO.LABR 08:57
PROVIDERS: PCP Internal Medicine; Visit Provider Psychiatry & Neurology Psychiatry
DX: Z79.899 Other long term (current) drug therapy (principal)
CPT/HCPCS: 36415; 85025

== ENCOUNTER → 2022-02-02 10:11 | Outpatient (BNVA) | payer OTHER, SELFPAY | PROVIDERS: PCP Internal Medicine; Visit Provider Nurse Practitioner Gerontology | DX: E11.649 Type 2 diabetes mellitus with hypoglycemia without coma (principal); E11.42 Type 2 diabetes mellitus with diabetic polyneuropathy; E11.65 Type 2 diabetes mellitus with hyperglycemia; E11.22 Type 2 diabetes mellitus with diabetic chronic kidney disease; N18.30 Chronic kidney disease, stage 3 unspecified; E78.00 Pure hypercholesterolemia, unspecified; E66.01 Morbid (severe) obesity due to excess calories; Z79.4 Long term (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; Z68.35 Body mass index [BMI] 35.0-35.9, adult | CPT/HCPCS: 82947; 99212 ==

== ENCOUNTER 2022-02-16 09:47 | Outpatient (REF) | payer OTHER, SELFPAY ==
[2022-02-16 10:07] LABS: MANUAL DIFF FLAG NO
[2022-02-16 10:43] LABS: Hematocrit 45.7 % (42.0-52.0); Hemoglobin 15.8 g/dl (14.0-18.0); Imm Gran Abs Auto 0.04 X10*3/uL (0.00-0.03); Imm Gran Pct Auto 0.5 % (0.0-0.4); Lymphocytes Absolute Auto 1.5 X10*3/uL (1.2-4.9); Lymphocytes Percent Auto 18.4 % (20-40); Mean Corpuscular HGB Conc 34.6 g/dl (31.0-36.0); Mean Corpuscular Hemoglobin 29.5 pg (27.0-33.0); Mean Corpuscular Volume 85.3 fL (80.0-98.0); Mean Platelet Volume 10.4 fL (9.4-12.4); Monocytes Absolute Auto 0.7 X10*3/uL (0.1-1.2); Monocytes Percent Auto 8.4 % (2-11); Neutrophils Absolute Auto 5.9 x10*3/uL (2.0-8.3); Neutrophils Percent Auto 72.7 % (45-73); Platelet Count 133 X10*3/uL (160-400); Red Blood Count 5.36 X10*6/uL (4.60-5.80); Red Cell Distribution Width 12.7 % (11.0-16.0); White Blood Count 8.1 X10*3/uL (4.8-10.8)
== END 2022-02-16 09:48 | disposition home or self-care (01) ==
LOC: HO.LABR 09:47
PROVIDERS: PCP Internal Medicine; Visit Provider Psychiatry & Neurology Psychiatry
DX: Z79.899 Other long term (current) drug therapy (principal)
CPT/HCPCS: 36415; 85025

== ENCOUNTER 2022-03-13 13:53 | Emergency (ER) | payer OTHER, SELFPAY ==
--- NOTE | ~2022-03-13 | XR_ITS ---
EXAMINATION: XR ABDOMEN KUB CLINICAL INDICATION: Constipation COMPARISON: CT abdomen and pelvis 10/04/2021, abdominal radiographs 02/19/2021 TECHNIQUE: AP view of the abdomen. FINDINGS: Relatively large volume of stool and gas is seen throughout the colon. There are dilated segments of presumed transverse colon measuring up to and greater than 10 cm in diameter. No evidence of free air on these radiographs. No abnormal intraabdominal calcifications. There are degenerative changes of the lumbar spine, otherwise the bony structures are unremarkable. XR/XR KUB IMPRESSION: Large volume of stool and gas throughout the colon with possible mild dilation of segment of the transverse without evidence of obstruction.
[2022-03-13 14:00] VITALS: BP 117/83; PULSE 73; RESP 18; TEMP 36.7; O2SAT 97; BMI 36.3
--- NOTE | 2022-03-13 17:08 | ED_ITS ---
HPI - General Adult General Chief complaint: General Medical Stated complaint: Constipated Time Seen by Provider: 03/13/22 19:17 Source: patient Mode of arrival: ambulatory Limitations: no limitations History of Present Illness HPI narrative: 61-year-old male presents for 5 days of constipation. States that he has been taking milk of magnesia without any effect. He does have history of constipation, has presented several times in the past for disimpaction. He is able to pass flatus, and is able to eat and drink without difficulty. He denies fevers, chills, abdominal distention, dysuria, oligura, nausea, vomiting, or bright red blood per rectum. Onset (ago): day(s) (5) Radiation: non-radiation Severity: moderate Severity scale (1-10): 7 Quality: aching Pain Consistency: constant Associated symptoms: denies other symptoms Treatments prior to arrival: other (Milk of magnesia) Related Data Home Medications Medication Instructions Recorded Confirmed hydroxyzine pamoate 50 mg capsule 50 mg PO TID PRN Anxiety 09/18/20 01/19/22 benztropine 0.5 mg tablet 1 tab PO BID 01/15/21 01/19/22 Previous Rx's Medication Instructions Recorded lancets 28 gauge #100 ea 01/18/21 clozapine 100 mg tablet 300 mg PO BEDTIME 30 days #90 tabs 01/30/21 metformin 500 mg tablet 1,000 mg PO BID 90 days #360 tabs 02/19/21 benzonatate 100 mg capsule 100 mg PO BID PRN cough #30 caps 03/06/21 (Tessalon Perles) ibuprofen 800 mg tablet 800 mg PO Q8H PRN for pain 30 days 03/30/21 #90 tabs linaclotide 290 mcg capsule 290 mcg PO QAM 30 days #30 caps 07/26/21 (Linzess) cholecalciferol (vitamin D3) 25 25 mcg PO DAILY #90 caps 08/15/21 mcg (1,000 unit) capsule magnesium citrate (Citrate of 150 ml PO DAILY constipation #296 10/14/21 Magnesia oral) mL simethicone 180 mg capsule 180 mg PO TIDWMEAL 30 days #90 caps 10/14/21 atorvastatin 10 mg tablet 10 mg PO DAILY #90 tabs 10/18/21 furosemide 20 mg tablet 20 mg PO DAILY #90 tabs 10/18/21 magnesium citrate See Rx Instructions PO DAILY #300 11/04/21 mL magnesium hydroxide 400 mg/5 mL 20 ml PO BEDTIME #355 mL 11/05/21 oral suspension (Milk of Magnesia) lidocaine 5 % topical patch 2 patch topical DAILY PRN pain #30 01/11/22 ea polyethylene glycol 3350 17 gram 17 g PO BID #30 ea 01/14/22 oral powder packet (Miralax) meclizine 25 mg tablet 25 mg PO QID PRN dizziness #20 tabs 01/19/22 lidocaine 4 % topical patch 2 patch topical DAILY PRN pain #30 01/20/22 (Aspercreme (lidocaine)) ea bisacodyl 5 mg tablet,delayed See Rx Instructions PO BEDTIME 30 01/31/22 release (Dulcolax (bisacodyl)) days #90 tabs blood sugar diagnostic (FreeStyle 1 strip miscellaneous TID for 02/02/22 Precision Obie Strips) diabetes mellitus 30 days #100 strips empagliflozin 25 mg tablet 25 mg PO QAM #30 tabs 02/02/22 (Jardiance) insulin degludec 200 unit/mL (3 26 unit (0.13 mL) subcut DAILY 90 02/02/22 mL) subcutaneous pen (Tresiba days #11.7 mL FlexTouch U-200 insulin) pen needle, diabetic 29 gauge x #100 ea 02/02/22 12 (BD Ultra-Fine Original Pen Needle) docusate sodium 100 mg capsule 100 mg PO BID 30 days #60 caps 02/15/22 blood sugar diagnostic (FreeStyle #100 ea 02/18/22 Lite Strips) blood-glucose meter (FreeStyle #1 ea 02/18/22 Lite Meter kit) blood-glucose meter (FreeStyle #1 ea 02/18/22 Lite Meter kit) lancets 28 gauge (FreeStyle #100 ea 02/18/22 Lancets) gabapentin 300 mg capsule 300 mg PO BEDTIME #90 caps 02/28/22 methylcellulose (laxative) 500 mg 1,000 mg PO TID #180 tabs 03/02/22 tablet (Fiber Therapy (methylcellulose)) blood sugar diagnostic (FreeStyle #100 ea 03/13/22 Lite Strips) lancets 28 gauge (FreeStyle #100 ea 03/13/22 Lancets) Allergies Allergy/AdvReac Type Severity Reaction Status Date / Time No Known Allergies Allergy Verified 03/13/22 14:00 [No Known Allergies*] Review of Systems Review of Systems: Constitutional: No Fever, No Chills ENT/Mouth: No Ear Pain, No Hoarseness, No sore throat Eyes: No Eye Pain, No Swelling, No Redness, No Foreign Body Cardiovascular: No Chest Pain, No SOB Respiratory: No Cough, No Dyspnea Gastrointestinal: Positive constipation, No Nausea, No Vomiting, No Diarrhea, No abdominal Pain Genitourinary: No Dysuria, No Hematuria Musculoskeletal: No joint pain, No Myalgias, No Joint Swelling Skin: No Skin lacerations, No rash Neuro: No Weakness, No Numbness, No Paresthesias, No Loss of Consciousness, No Dizziness, No Headache Psych: No Anxiety/Panic, No Depression Heme/Lymph: no easy bruising, no Lymphadenopathy Endocrine: No Polyuria, No Polydipsia Yes all other systems are reviewed and are negative PMFSH Past Medical History Attestation statement: The following information was validated with the patient. 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, bilateral 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 Melena Morbid obesity Obesity (BMI 30-39.9) Pain in both feet Pure hypercholesterolemia Right hand pain Schizo affective schizophrenia Schizoaffective disorder Type 2 diabetes mellitus with diabetic chronic kidney disease Surgical History History of repair of congenital cleft palate Hx of circumcision Family History Family History Father HTN (hypertension) Mother Diabetes Other Mental health problem Social History Social History Household Members: None Housing: Apartment Do you presently have visiting nurse or other home services: Yes Alcohol intake: current Alcohol intake frequency: a few times a month Alcohol type: beer, wine and hard liquor Patient Tobacco Use Status: Former Tobacco user Tobacco use type: Cigarette Cigarettes Per Day: 15 Years Smoked: 8 quit 30 years ago e-Cigarette/Vaping Use: Never Used Second Hand Smoke Exposure: No Advance Directives: No Advance Directives Information Provided: No service: No Current occupational status: employed Current occupation: [employer] Cognitive needs: No Hearing needs: No Vision needs: Yes (glasses) Physical Exam ED Vital Signs: Vital Signs - 24 hr 03/13/22 14:00 03/13/22 18:38 Temperature 98.1 F Pulse Rate 73 72 Respiratory Rate 18 16 Blood Pressure 117/83 113/81 Pulse Oximetry 97 97 Oxygen Delivery Method Room Air Room Air BMI result Body Mass Index 36.3 Appearance: Alert. Oriented X3. No acute distress. Eyes: Pupils equal, round and reactive to light. ENT: Pharynx normal. Neck: Normal inspection. Neck supple. CVS: Normal heart rate and rhythm. Pulses normal. Respiratory: No respiratory distress. Breath sounds normal. Abdomen: Soft and nontender. Obese. Skin: Skin warm and dry. Normal skin color. Normal skin turgor. Extremities: No lower extremity edema. Moves all extremities against resistanc e. Neuro: No motor deficit. No sensory deficit. Cranial nerves 2-12 intact. Course Course Course Narrative: 61-year-old male presents with 5 days of constipation, requesting an enema. Your reports taking milk of magnesia twice a day for the past few days. He does have a history of chronic idiopathic constipation has had several presentations to the emergency department for disimpaction over the past several years. Does follow up with Gastroenterology on a regular basis, last visit 01/14/2022 where they did change some of his medications. Will order KUB. Order for soapsuds enema. 19:17 patient produced large BM from soapsuds enema. States to feel much better. Plan of care is to discharge home. Will recommend follow-up with Susy Gordillo [employer] for chronic constipation. Patient verbalized understanding of and agrees to plan of care discharge home. Verbalized understanding of signs symptoms indicating need for emergent intervention. Medical Decision Making Differential Diagnosis Differential Diagnosis: Obstruction, constipation Medical Records Medical records reviewed: Yes I reviewed the patient's medical records. Imaging Data KUB: Attestation: I personally reviewed and interpreted this imaging study as follows: Radiologist's impression: EXAMINATION: XR ABDOMEN KUB CLINICAL INDICATION: Constipation? COMPARISON: CT abdomen and pelvis 10/04/2021, abdominal radiographs 02/19/2021? TECHNIQUE: AP view of the abdomen. FINDINGS: Relatively large volume of stool and gas is seen throughout the colon. There are dilated segments of presumed transverse colon measuring up to and greater than 10 cm in diameter. No evidence of free air on these radiographs. No abnormal intraabdominal calcifications. There are degenerative changes of the lumbar spine, otherwise the bony structures are unremarkable. XR/XR KUB IMPRESSION: Large volume of stool and gas throughout the colon with possible mild dilation of segment of the transverse without evidence of obstruction. Discharge Plan Discharge Clinical Impression: Constipation Patient Disposition: Home, Self-Care Instructions: Constipation (ED) Additional Instructions: You were evaluated in the emergency department for constipation. We gave you a soapsuds enema which was successful in producing a large bowel movement. Please follow-up with Susy Gordillo NP. Thank you for choosing this emergency department for evaluation. Please follow-up with primary care physician as needed. Return to the emergency department for any new, concerning, or worsening symptoms. Prescriptions: No Action (DME) lancets 28 gauge misc See Rx Instructions .ROUTE .MEDSUPPLY Qty: 100 5RF Rx Instructions: As directed clozapine 100 mg tablet 300 mg PO BEDTIME 30 Days Qty: 90 0RF ibuprofen 800 mg tablet 800 mg PO Q8H PRN (Reason: for pain) 30 Days Qty: 90 3RF cholecalciferol (vitamin D3) 25 mcg (1,000 unit) capsule 25 mcg PO DAILY Qty: 90 12RF atorvastatin 10 mg tablet 10 mg PO DAILY Qty: 90 0RF furosemide 20 mg tablet 20 mg PO DAILY Qty: 90 0RF magnesium citrate Solution See Rx Instructions PO DAILY Qty: 300 3RF Rx Instructions: DRINK 1/2 bottle if no BM after 30 mins drink 1/2 and continue until 2 bottles drank or have a BM PO daily; magnesium hydroxide [Milk of Magnesia] 400 mg/5 mL suspension 20 ml PO BEDTIME Qty: 355 6RF lidocaine 5 % adhesive patch,medicated 2 patch topical DAILY PRN (Reason: pain) Qty: 30 1RF Rx Instructions: leave on most painful area for up to 12 hrs lidocaine [Aspercreme (lidocaine)] 4 % adhesive patch,medicated 2 patch topical DAILY PRN (Reason: pain) Qty: 30 1RF bisacodyl [Dulcolax (bisacodyl)] 5 mg tablet,delayed release (DR/EC) See Rx Instructions PO BEDTIME 30 Days Qty: 90 6RF Rx Instructions: 2 tabs qhs and 1 qam PO bedtime; FreeStyle Precision Obie Strips Strip 1 strip miscellaneous TID 30 Days Qty: 100 11RF docusate sodium 100 mg capsule 100 mg PO BID 30 Days Qty: 60 6RF (DME) blood-glucose meter [FreeStyle Lite Meter] Kit See Rx Instructions .MEDSUPPLY Qty: 1 0RF Rx Instructions: test daily (DME) FreeStyle Lite Strips Strip See Rx Instructions .MEDSUPPLY Qty: 100 11RF Rx Instructions: TID (DME) lancets [FreeStyle Lancets] 28 gauge misc See Rx Instructions .MEDSUPPLY Qty: 100 11RF Rx Instructions: TID (DME) blood-glucose meter [FreeStyle Lite Meter] Kit See Rx Instructions .Route Qty: 1 0RF Rx Instructions: Tests 4 X/day gabapentin 300 mg capsule 300 mg PO BEDTIME Qty: 90 0RF Fiber Therapy (m-cellulose) 500 mg tablet 1,000 mg PO TID Qty: 180 6RF (DME) FreeStyle Lite Strips Strip See Rx Instructions .Route Qty: 100 5RF Rx Instructions: Tests 5X/day (DME) lancets [FreeStyle Lancets] 28 gauge misc See Rx Instructions .Route Qty: 100 4RF Rx Instructions: Tests 5x/day benzonatate [Tessalon Perles] 100 mg capsule 100 mg PO BID PRN (Reason: cough) Qty: 30 0RF benztropine 0.5 mg tablet 1 tab PO BID hydroxyzine pamoate 50 mg capsule 50 mg PO TID PRN (Reason: Anxiety) meclizine 25 mg tablet 25 mg PO QID PRN (Reason: dizziness) Qty: 20 0RF metformin 500 mg tablet 1,000 mg PO BID 90 Days Qty: 360 1RF magnesium citrate [Citrate of Magnesia] Solution 150 ml PO DAILY Qty: 296 2RF Rx Instructions: Take half a bottle daily for the next 2-3 days simethicone 180 mg capsule 180 mg PO TIDWMEAL 30 Days Qty: 90 6RF Rx Instructions: after meals,Please dispense in bottle and not blister packs!! Linzess 290 mcg capsule 290 mcg PO QAM 30 Days Qty: 30 6RF Jardiance 25 mg tablet 25 mg PO QAM Qty: 30 6RF Tresiba FlexTouch U-200 200 unit/mL (3 mL) insulin pen 26 unit subcut DAILY 90 Days Qty: 11.7 2RF (DME) pen needle, diabetic [BD Ultra-Fine Orig Pen Needle] 29 gauge x 1/2 needle See Rx Instructions .ROUTE DAILY Qty: 100 3RF Rx Instructions: As directed daily polyethylene glycol 3350 [Miralax] 17 gram powder in packet 17 g PO BID Qty: 30 2RF Referrals: Susy Gordillo ANP-C [Nurse Practitioner] - 1 week (Chronic constipation) Interventions: ED Discharge Assessment Last Done: 03/13/22 19:41 Discharge Date/Time: 03/13/22 19:45
--- NOTE | 2022-03-13 18:37 | PC.NURSE ---
Pt given soap suds enema in left lying position.
[2022-03-13 18:38] VITALS: BP 113/81; PULSE 72; RESP 16; O2SAT 97
== END 2022-03-13 19:45 | disposition home or self-care (01) ==
PROVIDERS: Emergency Provider Internal Medicine; PCP Internal Medicine
DX: K59.00 Constipation, unspecified (principal); E11.9 Type 2 diabetes mellitus without complications; Z87.891 Personal history of nicotine dependence; Z79.899 Other long term (current) drug therapy
CPT/HCPCS: 74018; 99284

== ENCOUNTER 2022-03-14 08:30 | Outpatient (REF) | payer OTHER, SELFPAY ==
[2022-03-14 08:46] LABS: MANUAL DIFF FLAG NO
[2022-03-14 09:20] LABS: Hematocrit 45.2 % (42.0-52.0); Hemoglobin 15.7 g/dl (14.0-18.0); Imm Gran Abs Auto 0.02 X10*3/uL (0.00-0.03); Imm Gran Pct Auto 0.3 % (0.0-0.4); Lymphocytes Absolute Auto 1.6 X10*3/uL (1.2-4.9); Lymphocytes Percent Auto 24.6 % (20-40); Mean Corpuscular HGB Conc 34.7 g/dl (31.0-36.0); Mean Corpuscular Hemoglobin 29.5 pg (27.0-33.0); Mean Platelet Volume 10.7 fL (9.4-12.4); Monocytes Absolute Auto 0.6 X10*3/uL (0.1-1.2); Monocytes Percent Auto 9.1 % (2-11); Neutrophils Absolute Auto 4.2 x10*3/uL (2.0-8.3); Platelet Count 117 X10*3/uL (160-400); Red Blood Count 5.32 X10*6/uL (4.60-5.80); Red Cell Distribution Width 13.3 % (11.0-16.0); White Blood Count 6.4 X10*3/uL (4.8-10.8)
== END 2022-03-14 08:31 | disposition home or self-care (01) ==
LOC: HO.LAB 08:30
PROVIDERS: PCP Internal Medicine; Visit Provider Psychiatry & Neurology Psychiatry
DX: Z79.899 Other long term (current) drug therapy (principal)
CPT/HCPCS: 36415; 85025

== ENCOUNTER → 2022-03-15 15:58 | Outpatient (BNVA) | payer OTHER, SELFPAY | PROVIDERS: PCP Internal Medicine; Visit Provider Nurse Practitioner | DX: K59.04 Chronic idiopathic constipation (principal); F25.9 Schizoaffective disorder, unspecified; Z79.899 Other long term (current) drug therapy | CPT/HCPCS: 99212 ==

== ENCOUNTER 2022-03-19 10:48 | Emergency (ER) | payer OTHER, SELFPAY ==
--- NOTE | ~2022-03-19 | CT_ITS ---
EXAMINATION: CT abdomen pelvis wo con CLINICAL INFORMATION: Reason for Exam constipation COMPARISON: Prior scan from September 2021 TECHNIQUE: Multidetector volumetric imaging was performed from the superior aspect of the liver through the pubic symphysis , noncontrasted study. Sagittal and coronal reformatted images were obtained on the technologist's workstation. This CT examination was performed using dose optimization techniques as appropriate, variously including the following: *Automated exposure control *Adjustment of mA and/or kV according to patient size (this includes techniques or standardized protocols for targeted exams where dose is matched to indication/reason for exam; i.e. extremities or head) *Use of iterative reconstruction technique DLP: 1225 mGy-cm FINDINGS: LOWER THORAX: Included lung bases are clear. HEPATOBILIARY: Evaluation of the liver is limited on a noncontrasted study, the contour is somewhat nodular concerning for possible liver parenchymal disease possibly liver cirrhosis. GALLBLADDER: Gallbladder is distended. SPLEEN: Spleen is enlarged measuring 20 x 11 cm. PANCREAS: Pancreas is atrophic fatty replaced. STOMACH AND GASTROINTESTINAL TRACT: Stomach is grossly unremarkable. There is extensive dilatation of the entire colon probably colonic ileus and/or due to fecal impaction, excess amount of stool in the sigmoid colon and rectum. Small bowels are nondilated. No CT evidence of appendicitis. ADRENALS: No adrenal nodules. KIDNEYS/URETERS: There is a tiny 3 mm nonobstructing stone lower calyx right kidney, no hydronephrosis. Perinephric fat are clear. URINARY BLADDER: Partially decompressed. PELVIC VISCERA: Unremarkable PERITONEUM: No free air or fluid. LYMPH NODES: No lymphadenopathy. VASCULAR:Abdominal aorta normal in size, no aneurysm found. BONES, ABDOMINAL WALL AND SOFT TISSUES: Age-appropriate changes of the spine and skeletal system, no destructive osteolytic or osteosclerotic bone lesion found CT/CT abdomen pelvis wo con IMPRESSION: 1. Excessive dilatation of the entire colon, suggesting colonic ileus versus obstruction by fecal impaction, patient may benefit of decompression with an enema. No CT evidence of small bowel obstruction or perforation. 2. Tiny nonobstructing stone right kidney. 3. Heterogeneous liver texture and nodular surface concerning for liver parenchymal disease possibly liver cirrhosis. Evaluation of the liver is limited on this noncontrasted study. 4. Atrophic fatty replaced pancreas. 5. Splenomegaly, spleen measure up to 20 cm, no evidence of ascites.
--- NOTE | ~2022-03-19 | XR_ITS ---
EXAMINATION: XR KUB CLINICAL INFORMATION: Reason for Exam constipation COMPARISON: Prior study from 03/13/2022 TECHNIQUE: Frontal FINDINGS: There are dilated bowel loops, multiple air-fluid levels, this is concerning for an ileus versus bowel obstruction. There is no free air under the diaphragm. Included lung bases are clear. XR/XR KUB IMPRESSION: Dilated bowel loops with multiple air-fluid levels concerning for an ileus versus bowel obstruction. Would recommend correlation with follow-up CT scan with oral and IV contrast.
[2022-03-19 11:31] VITALS: BP 106/71; PULSE 84; PULSE 87; RESP 16; O2SAT 96; BMI 36.6
--- NOTE | 2022-03-19 11:38 | ED.ABDPAIN ---
HPI - Abdominal Pain General Chief Complaint: Abdominal Pain Stated Complaint: Pain in Testicles & Stomach Time Seen by Provider: 03/19/22 11:23 Source: patient Mode of arrival: EMS Limitations: no limitations History of Present Illness HPI narrative: 61 yo male with hx of DM, obesity, chronic constipation on linactolide, HLD, schizoaffective disorder, CKD, chronically elevated LFTs comes in stating he drank a lot of water and gatorade this AM and his stomach started to hurt and bloat. He then noted it made his testicles hurt. He denies v/d. Did have a good BM this morning MD elicited complaint: abdominal pain Pertinent past history: constipation Onset (ago): hour(s) (9am) Pain Consistency: constant Location: diffuse Severity: mild Quality: cramping Radiation: other (testicles) Migration to: no migration Exacerbating factors: other (started after drinking water and gatorade) Relieving factors: nothing Context: history of similar episodes Associated symptoms: other (testicular pain) Related Data Home Medications Medication Instructions Recorded Confirmed hydroxyzine pamoate 50 mg capsule 50 mg PO TID PRN Anxiety 09/18/20 01/19/22 benztropine 0.5 mg tablet 1 tab PO BID 01/15/21 01/19/22 Previous Rx's Medication Instructions Recorded lancets 28 gauge #100 ea 01/18/21 clozapine 100 mg tablet 300 mg PO BEDTIME 30 days #90 tabs 01/30/21 metformin 500 mg tablet 1,000 mg PO BID 90 days #360 tabs 02/19/21 benzonatate 100 mg capsule 100 mg PO BID PRN cough #30 caps 03/06/21 (Tesbipin [place]) ibuprofen 800 mg tablet 800 mg PO Q8H PRN for pain 30 days 03/30/21 #90 tabs linaclotide 290 mcg capsule 290 mcg PO QAM 30 days #30 caps 07/26/21 (Linzess) cholecalciferol (vitamin D3) 25 25 mcg PO DAILY #90 caps 08/15/21 mcg (1,000 unit) capsule magnesium citrate (Citrate of 150 ml PO DAILY constipation #296 10/14/21 Magnesia oral) mL simethicone 180 mg capsule 180 mg PO TIDWMEAL 30 days #90 caps 10/14/21 atorvastatin 10 mg tablet 10 mg PO DAILY #90 tabs 10/18/21 furosemide 20 mg tablet 20 mg PO DAILY #90 tabs 10/18/21 magnesium citrate See Rx Instructions PO DAILY #300 11/04/21 mL magnesium hydroxide 400 mg/5 mL 20 ml PO BEDTIME #355 mL 11/05/21 oral suspension (Milk of Magnesia) lidocaine 5 % topical patch 2 patch topical DAILY PRN pain #30 01/11/22 ea polyethylene glycol 3350 17 gram 17 g PO BID #30 ea 01/14/22 oral powder packet (Miralax) meclizine 25 mg tablet 25 mg PO QID PRN dizziness #20 tabs 01/19/22 lidocaine 4 % topical patch 2 patch topical DAILY PRN pain #30 01/20/22 (Aspercreme (lidocaine)) ea bisacodyl 5 mg tablet,delayed See Rx Instructions PO BEDTIME 30 01/31/22 release (Dulcolax (bisacodyl)) days #90 tabs blood sugar diagnostic (FreeStyle 1 strip miscellaneous TID for 02/02/22 Precision Obie Strips) diabetes mellitus 30 days #100 strips empagliflozin 25 mg tablet 25 mg PO QAM #30 tabs 02/02/22 (Jardiance) insulin degludec 200 unit/mL (3 26 unit (0.13 mL) subcut DAILY 90 02/02/22 mL) subcutaneous pen (Tresi days #11.7 mL FlexTouch U-200 insulin) pen needle, diabetic 29 gauge x #100 ea 02/02/22 1/2 (BD Ultra-Fine Original Pen Needle) docusate sodium 100 mg capsule 100 mg PO BID 30 days #60 caps 02/15/22 blood sugar diagnostic (FreeStyle #100 ea 02/18/22 Lite Strips) blood-glucose meter (FreeStyle #1 ea 02/18/22 Lite Meter kit) blood-glucose meter (FreeStyle #1 ea 02/18/22 Lite Meter kit) lancets 28 gauge (FreeStyle #100 ea 02/18/22 Lancets) gabapentin 300 mg capsule 300 mg PO BEDTIME #90 caps 02/28/22 methylcellulose (laxative) 500 mg 1,000 mg PO TID #180 tabs 03/02/22 tablet (Fiber Therapy (methylcellulose)) blood sugar diagnostic (FreeStyle #100 ea 03/13/22 Lite Strips) lancets 28 gauge (FreeStyle #100 ea 03/13/22 Lancets) Allergies Allergy/AdvReac Type Severity Reaction Status Date / Time No Known Allergies Allergy Verified 03/15/22 16:12 [No Known Allergies*] Review of Systems Review of Systems Constitutional : No Weight loss, No Fever, No Chills ENT/Mouth : No sore throat, No Rhinorrhea Eyes: No Swelling, No Redness Cardiovascular : No Chest Pain, No SOB, NoEdema Respiratory : No Cough, No Sputum, No Wheezing Gastrointestinal : no Nausea, no Vomiting, no Diarrhea, positive abdominal Pain, No Hematochezia, No Melena, pos constipation Genitourinary : No Dysuria, No Urinary Frequency, No Hematuria, No Urgency , pos testicular pain Musculoskeletal : No joint pain, No Myalgias, No Joint Swelling Skin : No Skin Lesions, No rash Neuro : No Weakness, No Numbness, No Dizziness, No Headache Psych : No Anxiety/Panic, No Depression Heme/Lymph: No Bruising, No Lymphadenopathy Endocrine : No Polyuria, No Polydipsia All other systems reviewed and are negative. [facility] Past Medical History Medical History Benign essential hypertension Bowel obstruction Chronic idiopathic constipation Chronic kidney disease (CKD), stage III (moderate) Diabetes type 2, uncontrolled Diabetic polyneuropathy associated with 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 mellitus Dyslipidemia Elevated LFTs Healed wound Hospital discharge follow-up 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 mellitus Knee osteoarthritis Knee pain, bilateral USP (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 Melena Morbid obesity Obesity (BMI 30-39.9) Pain in both feet Pure hypercholesterolemia Right hand pain Schizo affective schizophrenia Schizoaffective disorder Type 2 diabetes mellitus with diabetic chronic kidney disease Surgical History History of repair of congenital cleft palate Hx of circumcision Family History Family History Father HTN (hypertension) Mother Diabetes Other Mental health problem Social History Social History Household Members: None Housing: Apartment Do you presently have visiting nurse or other home services: Yes Alcohol intake: current Alcohol intake frequency: holidays/special occasions only Alcohol type: beer, wine and hard liquor Patient Tobacco Use Status: Former Tobacco user Tobacco use type: Cigarette Cigarettes Per Day: 15 Years Smoked: 8 quit 30 years ago e-Cigarette/Vaping Use: Never Used Second Hand Smoke Exposure: No Use of substances other than those prescribed or required for medical reasons: No Advance Directives: No Advance Directives Information Provided: No service: No Current occupational status: employed Current occupation: [employer] Cognitive needs: No Hearing needs: No Vision needs: Yes (glasses) Physical Exam ED Vital Signs: Vital Signs - 24 hr 03/19/22 11:31 03/19/22 11:31 03/19/22 13:48 Pulse Rate 87 84 79 Respiratory Rate 16 16 16 Blood Pressure 106/71 106/71 115/71 Pulse Oximetry 96 96 97 Oxygen Delivery Method Room Air Room Air Room Air 03/19/22 15:23 Pulse Rate 73 Respiratory Rate 16 Blood Pressure 99/69 Pulse Oximetry 98 Oxygen Delivery Method Room Air BMI result Body Mass Index 36.6 Appearance: Alert. Oriented X3. No acute distress. Eyes: Pupils equal, round and reactive to light. ENT: Pharynx normal. Neck: Normal inspection. Neck supple. CVS: Normal heart rate and rhythm. Pulses normal. Respiratory: No respiratory distress. Breath sounds normal. Abdomen: Soft but distended, no rebound or guarding, no grimace and does not report pain to palpation : normal scrotal exam no swelling, erythema reports some areas hurt to touch but it is intermittent Skin: Skin warm and dry. Normal skin color. Normal skin turgor. Extremities: No lower extremity edema. No calf ttp Neuro: Oriented X 3. No motor deficit. No sensory deficit. Course Course Course Narrative: CT scan for possible obstruction ordered given KUB soap suds enema ordered, message sent to Dr. Randall 145pm Dr. Randall agrees likely chronic constipation and can follow up with GI pending enema and lactulose anticipate DC home which the patient wants he does not want to stay in the hospital. + BM patient doing well - exam and history not consistent with obstruction MDM - Abdominal Pain MDM Narrative Medical decision making narrative: 61 yo male with hx of DM, obesity, chronic constipation on linactolide, HLD, schizoaffective disorder, CKD here with c/o constipation and abdominal bloating after chugging water and gatorade. He also notes that his testicles are painful but his exam is underwhelming and I do not suspect infection, gangrene, torsion, hernia. Will repeat exam after urine, labs, KUB. Pain in testicles started after chugging water/gatorade Lab Data Result diagrams: 03/19/22 11:52 03/19/22 11:52 Labs: Lab Results 03/19/22 03/19/22 Range/Units 11:52 11:52 WBC 8.2 (4.8-10.8) X10*3/uL RBC 5.18 (4.60-5.80) X10*6/uL Hgb 15.3 (14.0-18.0) g/dl Hct 43.3 (42.0-52.0) % MCV 83.6 (80.0-98.0) fL MCH 29.5 (27.0-33.0) pg MCHC 35.3 (31.0-36.0) g/dl RDW 13.2 (11.0-16.0) % Plt Count 117 L (160-400) X10*3/uL MPV 10.7 (9.4-12.4) fL Immature Gran % (Auto) 0.5 H (0.0-0.4) % Neut % (Auto) 76.0 H (45-73) % Lymph % (Auto) 14.9 L (20-40) % [place] % (Auto) 8.5 (2-11) % Eos % (Auto) 0.0 (0-4) % Baso % (Auto) 0.1 (0-2) % Lymph # (Auto) 1.2 (1.2-4.9) X10*3/uL [place] # (Auto) 0.7 (0.1-1.2) X10*3/uL Eos # (Auto) 0.0 (0.0-0.4) X10*3/uL Baso # (Auto) 0.0 (0.0-0.2) X10*3/uL Abs Immat Gran (auto) 0.04 H (0.00-0.03) X10*3/uL Absolute Neuts (auto) 6.2 (2.0-8.3) x10*3/uL Absolute Nucleated RBC 0.000 (0.0-0.012) X10*3/uL Nucleated RBC % (auto) 0.0 (0.0-0.2) /100WBC Sodium 140 (135-145) mmol/L Potassium 3.9 (3.3-5.1) mmol/L Chloride 108 (96-108) mmol/L Carbon Dioxide 20 L (22-29) mmol/L Anion Gap 16 (12-20) BUN 25 H (9-16) mg/dL Creatinine 1.39 (0.5-1.4) mg/dL Estim Creat Clear Calc 79.6 Estimated GFR 52 Random Glucose 181 H D (60-115) mg/dL Calcium 9.5 (8.4-10.2) mg/dL Magnesium 1.9 (1.6-2.6) mg/dL Total Bilirubin 0.5 (0.0-1.0) mg/dL Direct Bilirubin 0.2 (0.0-0.5) mg/dL AST 52 H (5-37) U/L ALT 78 H (0-40) U/L Alkaline Phosphatase 134 H (39-117) U/L Total Protein 7.2 (6.5-8.0) g/dL Albumin 4.4 (3.5-5.0) g/dL Lipase 25 (8-78) U/L Discharge Plan Discharge Clinical Impression: Chronic constipation Patient Disposition: Home, Self-Care Instructions: Constipation (ED) Additional Instructions: return to ED for any worsening symptoms or concerns continue all your medications, you were given an enema and laxative in the ED CT/CT abdomen pelvis wo con IMPRESSION: ? 1. Excessive dilatation of the entire colon, suggesting colonic ileus versus obstruction by fecal impaction, patient may benefit of decompression with an enema. No CT evidence of small bowel obstruction or perforation. ? 2. Tiny nonobstructing stone right kidney. ? 3. Heterogeneous liver texture and nodular surface concerning for liver parenchymal disease possibly liver cirrhosis. Evaluation of the liver is limited on this noncontrasted study. ? 4. Atrophic fatty replaced pancreas. ? 5. Splenomegaly, spleen measure up to 20 cm, no evidence of ascites. Prescriptions: No Action (DME) lancets 28 gauge misc See Rx Instructions .ROUTE .MEDSUPPLY Qty: 100 5RF Rx Instructions: As directed clozapine 100 mg tablet 300 mg PO BEDTIME 30 Days Qty: 90 0RF ibuprofen 800 mg tablet 800 mg PO Q8H PRN (Reason: for pain) 30 Days Qty: 90 3RF cholecalciferol (vitamin D3) 25 mcg (1,000 unit) capsule 25 mcg PO DAILY Qty: 90 12RF atorvastatin 10 mg tablet 10 mg PO DAILY Qty: 90 0RF furosemide 20 mg tablet 20 mg PO DAILY Qty: 90 0RF magnesium citrate Solution See Rx Instructions PO DAILY Qty: 300 3RF Rx Instructions: DRINK 1/2 bottle if no BM after 30 mins drink 1/2 and continue until 2 bottles drank or have a BM PO daily; magnesium hydroxide [Milk of Magnesia] 400 mg/5 mL suspension 20 ml PO BEDTIME Qty: 355 6RF lidocaine 5 % adhesive patch,medicated 2 patch topical DAILY PRN (Reason: pain) Qty: 30 1RF Rx Instructions: leave on most painful area for up to 12 hrs lidocaine [Aspercreme (lidocaine)] 4 % adhesive patch,medicated 2 patch topical DAILY PRN (Reason: pain) Qty: 30 1RF bisacodyl [Dulcolax (bisacodyl)] 5 mg tablet,delayed release (DR/EC) See Rx Instructions PO BEDTIME 30 Days Qty: 90 6RF Rx Instructions: 2 tabs qhs and 1 qam PO bedtime; FreeStyle Precision Obie Strips Strip 1 strip miscellaneous TID 30 Days Qty: 100 11RF docusate sodium 100 mg capsule 100 mg PO BID 30 Days Qty: 60 6RF (DME) blood-glucose meter [FreeStyle Lite Meter] Kit See Rx Instructions .MEDSUPPLY Qty: 1 0RF Rx Instructions: test daily (DME) FreeStyle Lite Strips Strip See Rx Instructions .MEDSUPPLY Qty: 100 11RF Rx Instructions: TID (DME) lancets [FreeStyle Lancets] 28 gauge misc See Rx Instructions .MEDSUPPLY Qty: 100 11RF Rx Instructions: TID (DME) blood-glucose meter [FreeStyle Lite Meter] Kit See Rx Instructions .Route Qty: 1 0RF Rx Instructions: Tests 4 X/day gabapentin 300 mg capsule 300 mg PO BEDTIME Qty: 90 0RF Fiber Therapy (m-cellulose) 500 mg tablet 1,000 mg PO TID Qty: 180 6RF (DME) FreeStyle Lite Strips Strip See Rx Instructions .Route Qty: 100 5RF Rx Instructions: Tests 5X/day (DME) lancets [FreeStyle Lancets] 28 gauge misc See Rx Instructions .Route Qty: 100 4RF Rx Instructions: Tests 5x/day benzonatate [Tessalon Perles] 100 mg capsule 100 mg PO BID PRN (Reason: cough) Qty: 30 0RF benztropine 0.5 mg tablet 1 tab PO BID hydroxyzine pamoate 50 mg capsule 50 mg PO TID PRN (Reason: Anxiety) meclizine 25 mg tablet 25 mg PO QID PRN (Reason: dizziness) Qty: 20 0RF metformin 500 mg tablet 1,000 mg PO BID 90 Days Qty: 360 1RF magnesium citrate [Citrate of Magnesia] Solution 150 ml PO DAILY Qty: 296 2RF Rx Instructions: Take half a bottle daily for the next 2-3 days simethicone 180 mg capsule 180 mg PO TIDWMEAL 30 Days Qty: 90 6RF Rx Instructions: after meals,Please dispense in bottle and not blister packs!! Linzess 290 mcg capsule 290 mcg PO QAM 30 Days Qty: 30 6RF Jardiance 25 mg tablet 25 mg PO QAM Qty: 30 6RF Tresiba FlexTouch U-200 200 unit/mL (3 mL) insulin pen 26 unit subcut DAILY 90 Days Qty: 11.7 2RF (DME) pen needle, diabetic [BD Ultra-Fine Orig Pen Needle] 29 gauge x 1/2 needle See Rx Instructions .ROUTE DAILY Qty: 100 3RF Rx Instructions: As directed daily polyethylene glycol 3350 [Miralax] 17 gram powder in packet 17 g PO BID Qty: 30 2RF Referrals: Luis Manuel Garcia MD [Primary Care Provider] - 2 weeks
--- NOTE | 2022-03-19 11:52 | PC.NURSE ---
Pt is alert and oriented x4. Heart sounds are regular. Lungs sounds are clear in all lobes. Abd is soft and distended, active bowel sounds in all lobes. Pt reports abd soreness and testicular pain that began this morning. Bilateral testicles appear normal with no swelling or redness noted. Equal in size. Pt reported discomfort with palpation. No drainage noted. MD at bedside. Pt aware of plan of care.
[2022-03-19 11:56] LABS: MANUAL DIFF FLAG NO
[2022-03-19 12:11] LABS: Basophils Percent Auto 0.1 % (0-2); Hematocrit 43.3 % (42.0-52.0); Hemoglobin 15.3 g/dl (14.0-18.0); Imm Gran Abs Auto 0.04 X10*3/uL (0.00-0.03); Imm Gran Pct Auto 0.5 % (0.0-0.4); Lymphocytes Absolute Auto 1.2 X10*3/uL (1.2-4.9); Lymphocytes Percent Auto 14.9 % (20-40); Mean Corpuscular HGB Conc 35.3 g/dl (31.0-36.0); Mean Corpuscular Hemoglobin 29.5 pg (27.0-33.0); Mean Corpuscular Volume 83.6 fL (80.0-98.0); Mean Platelet Volume 10.7 fL (9.4-12.4); Monocytes Absolute Auto 0.7 X10*3/uL (0.1-1.2); Monocytes Percent Auto 8.5 % (2-11); Neutrophils Absolute Auto 6.2 x10*3/uL (2.0-8.3); Platelet Count 117 X10*3/uL (160-400); Red Blood Count 5.18 X10*6/uL (4.60-5.80); Red Cell Distribution Width 13.2 % (11.0-16.0); White Blood Count 8.2 X10*3/uL (4.8-10.8)
[2022-03-19 12:22] LABS: Alanine Aminotransferase 78 U/L (0-40); Albumin Level 4.4 g/dL (3.5-5.0); Alkaline Phosphatase 134 U/L (39-117); Anion Gap 16 (12-20); Aspartate Amino Transferase 52 U/L (5-37); Bilirubin Direct 0.2 mg/dL (0.0-0.5); Bilirubin Total 0.5 mg/dL (0.0-1.0); Blood Urea Nitrogen 25 mg/dL (9-16); Calcium 9.5 mg/dL (8.4-10.2); Carbon Dioxide 20 mmol/L (22-29); Chloride 108 mmol/L (96-108); Creatinine Clr Calc Pharmacy 79.6; Estimated Glomerular Filt Rate 52; Glucose Random 181 mg/dL (60-115); Lipase 25 U/L (8-78); Magnesium 1.9 mg/dL (1.6-2.6); Potassium 3.9 mmol/L (3.3-5.1); Sodium 140 mmol/L (135-145); Total Protein 7.2 g/dL (6.5-8.0)
[2022-03-19 13:48] VITALS: BP 115/71; PULSE 79; RESP 16; O2SAT 97
[2022-03-19] MEDS: Lactated Ringers 500 ML 999 ML IV (13:48)
[2022-03-19] MEDS: Lactulose 20 GM/30 ML SOLUTION PO (13:54)
--- NOTE | 2022-03-19 14:57 | PC.NURSE ---
large BM noted in commode and on floor.
[2022-03-19 15:23] VITALS: BP 99/69; PULSE 73; RESP 16; O2SAT 98
== END 2022-03-19 15:47 | disposition home or self-care (01) ==
PROVIDERS: Emergency Provider Emergency Medicine; PCP Internal Medicine
DX: K59.00 Constipation, unspecified (principal); E11.22 Type 2 diabetes mellitus with diabetic chronic kidney disease; I12.9 Hypertensive chronic kidney disease with stage 1 through stage 4 chronic kidney disease, or unspecified chronic kidney disease; N18.30 Chronic kidney disease, stage 3 unspecified; E78.00 Pure hypercholesterolemia, unspecified; E66.9 Obesity, unspecified; Z68.36 Body mass index [BMI] 36.0-36.9, adult; Z87.891 Personal history of nicotine dependence; Z79.02 Long term (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 of antithrombotics/antiplatelets; Z79.899 Other long term (current) drug therapy; Z79.4 Long term (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
CPT/HCPCS: 36415; 74018; 74176; 80048; 80076; 83690; 83735; 85025; 96360; 99284; 99285

== ENCOUNTER → 2022-04-01 10:43 | Outpatient (BNVA) | payer OTHER, SELFPAY | PROVIDERS: PCP Internal Medicine; Visit Provider Nurse Practitioner | DX: E11.65 Type 2 diabetes mellitus with hyperglycemia (principal); E11.42 Type 2 diabetes mellitus with diabetic polyneuropathy; N18.30 Chronic kidney disease, stage 3 unspecified; K30 Functional dyspepsia; K59.04 Chronic idiopathic constipation; E78.00 Pure hypercholesterolemia, unspecified; F25.9 Schizoaffective disorder, unspecified | CPT/HCPCS: 99212 ==

== ENCOUNTER 2022-04-13 08:26 | Outpatient (REF) | payer OTHER, SELFPAY ==
[2022-04-13 08:47] LABS: MANUAL DIFF FLAG NO
[2022-04-13 09:38] LABS: Basophils Percent Auto 0.2 % (0-2); Hematocrit 44.8 % (42.0-52.0); Hemoglobin 15.5 g/dl (14.0-18.0); Imm Gran Abs Auto 0.02 X10*3/uL (0.00-0.03); Imm Gran Pct Auto 0.3 % (0.0-0.4); Lymphocytes Absolute Auto 1.5 X10*3/uL (1.2-4.9); Mean Corpuscular HGB Conc 34.6 g/dl (31.0-36.0); Mean Corpuscular Hemoglobin 29.2 pg (27.0-33.0); Mean Corpuscular Volume 84.4 fL (80.0-98.0); Mean Platelet Volume 10.8 fL (9.4-12.4); Monocytes Absolute Auto 0.6 X10*3/uL (0.1-1.2); Monocytes Percent Auto 8.8 % (2-11); Neutrophils Absolute Auto 4.4 x10*3/uL (2.0-8.3); Neutrophils Percent Auto 67.7 % (45-73); Platelet Count 121 X10*3/uL (160-400); Red Blood Count 5.31 X10*6/uL (4.60-5.80); Red Cell Distribution Width 13.2 % (11.0-16.0); White Blood Count 6.5 X10*3/uL (4.8-10.8)
== END 2022-04-13 08:27 | disposition home or self-care (01) ==
LOC: HO.LABR 08:26
PROVIDERS: PCP Internal Medicine; Visit Provider Nurse Practitioner Psychiatric/Mental Health
DX: Z79.899 Other long term (current) drug therapy (principal)
CPT/HCPCS: 36415; 85025

== ENCOUNTER 2022-05-06 09:44 | Emergency (ER) | payer OTHER, SELFPAY ==
--- NOTE | ~2022-05-06 | CT_ITS ---
EXAMINATION: CT ABDOMEN AND PELVIS WITHOUT CONTRAST CLINICAL INFORMATION: Diarrhea COMPARISON: CT abdomen pelvis 03/19/2022 TECHNIQUE: Multidetector volumetric imaging was performed from the superior aspect of the liver through the pubic symphysis. Sagittal and coronal reformatted images were obtained on the technologist's workstation. This CT examination was performed using dose optimization techniques as appropriate, variously including the following: *Automated exposure control *Adjustment of mA and/or kV according to patient size (this includes techniques or standardized protocols for targeted exams where dose is matched to indication/reason for exam; i.e. extremities or head) *Use of iterative reconstruction technique DLP: 971 mGy-cm FINDINGS: LUNG BASES: Mild bibasilar subsegmental atelectasis. 3 mm triangle shaped pleural-based nodule in the right middle lobe, unchanged likely a small pulmonary lymph node. Right coronary artery calcifications. LIVER, GALLBLADDER, AND BILIARY TREE: Cirrhotic liver morphology. No liver lesion identified. No biliary ductal dilation. The gallbladder is unremarkable with no evidence of radiopaque gallstones, gallbladder wall thickening, or obvious pericholecystic inflammatory changes. PANCREAS: Moderately atrophic. No pancreatic lesion or peripancreatic inflammatory change. SPLEEN: Mildly enlarged measuring 15.4 cm in craniocaudal length. No splenic lesion. ADRENAL GLANDS: Unremarkable. KIDNEYS AND URETERS: Small 2-3 mm nonobstructing right lower pole renal calculus. No other renal calculi. No hydronephrosis. No renal lesion. Mild symmetric perirenal fascial stranding, nonspecific. BLADDER: Unremarkable. GASTROINTESTINAL TRACT: End seen is a gaseous dilation of the transverse colon up to 7.9 cm. Small amount of formed stool in the rectosigmoid colon. No appreciable bowel wall thickening or additional dilated bowel loops. Normal appendix. No ascites or free air. ABDOMINAL WALL: No significant hernia is appreciated. LYMPH NODES: No lymphadenopathy. VASCULAR: Normal caliber abdominal aorta. Mild atherosclerotic vascular calcifications. PELVIC VISCERA: Unremarkable. OSSEOUS STRUCTURES: No acute fracture or suspicious osseous lesion. Mild disc degenerative changes in the lumbar spine and bridging/flowing osteophytes in the lumbar spine noted. CT/CT abdomen pelvis wo IV con IMPRESSION: 1. No acute intra-abdominal process identified. No appreciable colonic wall thickening or pericolonic inflammatory changes suggest colitis. 2. Persistent gaseous dilation of the transverse colon, which may be due to mild colonic ileus. 3. Cirrhotic liver morphology mild splenomegaly. 4. Small nonobstructing right lower pole renal calculus.
[2022-05-06 10:24] VITALS: BP 97/72; PULSE 85; RESP 16; TEMP 36; O2SAT 95; BMI 33.2
[2022-05-06 11:06] LABS: MANUAL DIFF FLAG NO
[2022-05-06 11:09] LABS: Hemoglobin 15.8 g/dl (14.0-18.0); Imm Gran Abs Auto 0.04 X10*3/uL (0.00-0.03); Imm Gran Pct Auto 0.4 % (0.0-0.4); Lymphocytes Percent Auto 11.1 % (20-40); Mean Corpuscular HGB Conc 35.1 g/dl (31.0-36.0); Mean Corpuscular Hemoglobin 29.4 pg (27.0-33.0); Mean Corpuscular Volume 83.8 fL (80.0-98.0); Mean Platelet Volume 10.3 fL (9.4-12.4); Monocytes Absolute Auto 0.7 X10*3/uL (0.1-1.2); Monocytes Percent Auto 7.8 % (2-11); Neutrophils Absolute Auto 7.5 x10*3/uL (2.0-8.3); Neutrophils Percent Auto 80.7 % (45-73); Platelet Count 111 X10*3/uL (160-400); Red Blood Count 5.37 X10*6/uL (4.60-5.80); Red Cell Distribution Width 12.9 % (11.0-16.0); White Blood Count 9.3 X10*3/uL (4.8-10.8)
[2022-05-06 11:23] LABS: Alanine Aminotransferase 56 U/L (0-40); Albumin Level 4.6 g/dL (3.5-5.0); Alkaline Phosphatase 128 U/L (39-117); Anion Gap 17 (12-20); Aspartate Amino Transferase 30 U/L (5-37); Bilirubin Direct 0.2 mg/dL (0.0-0.5); Bilirubin Total 0.6 mg/dL (0.0-1.0); Blood Urea Nitrogen 17 mg/dL (9-16); Calcium 9.5 mg/dL (8.4-10.2); Carbon Dioxide 19 mmol/L (22-29); Chloride 108 mmol/L (96-108); Creatinine Clr Calc Pharmacy 71.6; Estimated Glomerular Filt Rate 49; Glucose Random 196 mg/dL (60-115); Lipase 43 U/L (8-78); Potassium 3.7 mmol/L (3.3-5.1); Sodium 140 mmol/L (135-145); Total Protein 7.3 g/dL (6.5-8.0)
--- NOTE | 2022-05-06 15:27 | ED_ITS ---
HPI - Abdominal Pain General Chief Complaint: Abdominal Pain Stated Complaint: diarrhea/stomach pains/testicle pain Time Seen by Provider: 05/06/22 15:17 Source: patient Mode of arrival: ambulatory Limitations: no limitations History of Present Illness HPI narrative: 61 yo male with hx of DM, obesity, chronic constipation on linactolide, HLD, schizoaffective disorder, CKD, chronically elevated LFTs who presents with 4 days of diarrhea and lower abdominal cramping which is intermittent. Patient reports 5-6 episodes of loose stools. Stools are not bloody or black. No associated nausea, vomiting, fevers, chills or urinary symptoms. Related Data Home Medications Medication Instructions Recorded Confirmed hydroxyzine pamoate 50 mg capsule 50 mg PO TID PRN Anxiety 09/18/20 04/29/22 benztropine 0.5 mg tablet 0.5 mg PO BID 04/29/22 04/29/22 Previous Rx's Medication Instructions Recorded clozapine 100 mg tablet 300 mg PO BEDTIME 30 days #90 tabs 01/30/21 benzonatate 100 mg capsule 100 mg PO BID PRN cough #30 caps 03/06/21 (Tesbipin [place]) ibuprofen 800 mg tablet 800 mg PO Q8H PRN for pain 30 days 03/30/21 #90 tabs cholecalciferol (vitamin D3) 25 25 mcg PO DAILY #90 caps 08/15/21 mcg (1,000 unit) capsule simethicone 180 mg capsule 180 mg PO TIDWMEAL 30 days #90 caps 10/14/21 atorvastatin 10 mg tablet 10 mg PO DAILY #90 tabs 10/18/21 furosemide 20 mg tablet 20 mg PO DAILY #90 tabs 10/18/21 magnesium citrate See Rx Instructions PO DAILY #300 11/04/21 mL magnesium hydroxide 400 mg/5 mL 20 ml PO BEDTIME #355 mL 11/05/21 oral suspension (Milk of Magnesia) lidocaine 5 % topical patch 2 patch topical DAILY PRN pain #30 01/11/22 ea polyethylene glycol 3350 17 gram 17 g PO BID #30 ea 01/14/22 oral powder packet (Miralax) meclizine 25 mg tablet 25 mg PO QID PRN dizziness #20 tabs 01/19/22 lidocaine 4 % topical patch 2 patch topical DAILY PRN pain #30 01/20/22 (Aspercreme (lidocaine)) ea bisacodyl 5 mg tablet,delayed See Rx Instructions PO BEDTIME 30 01/31/22 release (Dulcolax (bisacodyl)) days #90 tabs empagliflozin 25 mg tablet 25 mg PO QAM #30 tabs 02/02/22 (Jardiance) insulin degludec 200 unit/mL (3 26 unit (0.13 mL) subcut DAILY 90 02/02/22 mL) subcutaneous pen (Tresiba days #11.7 mL FlexTouch U-200 insulin) pen needle, diabetic 29 gauge x #100 ea 02/02/2208/15 (BD Ultra-Fine Original Pen Needle) docusate sodium 100 mg capsule 100 mg PO BID 30 days #60 caps 02/15/22 blood-glucose meter (FreeStyle #1 ea 02/18/22 Lite Meter kit) gabapentin 300 mg capsule 300 mg PO BEDTIME #90 caps 02/28/22 blood sugar diagnostic (FreeStyle #100 ea 03/13/22 Lite Strips) lancets 28 gauge (FreeStyle #100 ea 03/13/22 Lancets) metformin 500 mg tablet 1,000 mg PO BID 90 days #360 tabs 03/23/22 linaclotide 290 mcg capsule 290 mcg PO QAM 30 days #30 caps 04/01/22 (Linzess) metoclopramide HCl 5 mg tablet 5 mg PO .tidac #90 tabs 04/01/22 (Reglan) methylcellulose (laxative) 500 mg 1,000 mg PO TID #180 tabs 04/12/22 tablet (Fiber Therapy (methylcellulose)) Allergies Allergy/AdvReac Type Severity Reaction Status Date / Time No Known Allergies Allergy Verified 04/29/22 12:06 [No Known Allergies*] Review of Systems Review of Systems Yes all other systems are reviewed and are negative Constitutional: Reports no additional constitutional complaints, Denies body ac he(s), Denies chills, Denies fever(s), Denies headache(s) and Denies weakness Eyes: Reports no additional eye complaints and Denies change in vision Reports system reviewed and no additional complaints, except as documented, Denies dizziness, Denies headache(s), Denies nasal congestion, Denies nasal discharge and Denies neck pain Cardiovascular: Reports no additional cardiovascular complaints, Denies chest pain, Denies leg edema and Denies dyspnea Respiratory: Reports no additional respiratory complaints, Denies cough and Denies dyspnea Gastrointestinal: Reports no additional gastrointestinal complaints, Reports abdominal pain, Reports diarrhea, Denies nausea and Denies vomiting Genitourinary: Denies urinary incontinence Musculoskeletal: Reports no additional musculoskeletal complaints, Denies back pain, Denies arthralgias, Denies joint swelling, Denies neck pain, Denies numbness and Denies tingling Skin/Breast: Reports system reviewed and no additional complaints, except as docu and Denies rash Reports system reviewed and no additional complaints, except as documented, Denies dizziness, Denies headache(s), Denies numbness, Denies tingling and Denies weakness PMFSH Past Medical History Attestation statement: The following information was validated with the patient. Source: old records reviewed and nursing notes reviewed Medical History Benign essential hypertension Bowel obstruction Chronic idiopathic constipation Chronic kidney disease (CKD), stage III (moderate) Diabetes type 2, uncontrolled Diabetic polyneuropathy associated with 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 mellitus Dyslipidemia Elevated LFTs Healed wound Hospital discharge follow-up 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 mellitus Knee osteoarthritis Knee pain, bilateral longterm (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 Melena Morbid obesity Obesity (BMI 30-39.9) Pain in both feet Pure hypercholesterolemia Right hand pain Schizo affective schizophrenia Schizoaffective disorder Type 2 diabetes mellitus with diabetic chronic kidney disease Surgical History History of repair of congenital cleft palate Hx of circumcision Family History Family History Father HTN (hypertension) Mother Diabetes Other Mental health problem Social History Social History Household Members: None Housing: Apartment Do you presently have visiting nurse or other home services: Yes Alcohol intake: current Alcohol intake frequency: does not drink Alcohol type: beer, wine and hard liquor Patient Tobacco Use Status: Former Tobacco user Tobacco use type: Cigarette Cigarettes Per Day: 15 Years Smoked: 8 quit 30 years ago e-Cigarette/Vaping Use: Never Used Second Hand Smoke Exposure: No Advance Directives: Yes Advance Directives Information Provided: No Advance Directives on File: No service: No Current occupational status: employed Current occupation: [employer] Cognitive needs: No Hearing needs: No Vision needs: Yes (glasses) Physical Exam ED Vital Signs: Vital Signs - 24 hr 05/06/22 10:24 05/06/22 15:40 05/06/22 16:08 Temperature 96.8 F 98.6 F 98.8 F Pulse Rate 85 77 88 Respiratory Rate 16 16 19 Blood Pressure 97/72 108/70 119/72 Pulse Oximetry 95 98 98 Oxygen Delivery Method Room Air Room Air Room Air BMI result Body Mass Index 33.2 Const General: cooperative, healthy appearing, comfortable and no acute distress Orientation/consciousness: patient oriented x3 Limitations: no limitations HENMT Head: Yes normal to inspection Ears: hearing grossly normal bilaterally Eyes General: appearance normal, both eyes and all related structures Pupils: Equal, round and reactive pupils present Neck Neck: Yes normal visual inspection, Yes full ROM and Yes no lymphadenopathy Chest Chest palpation & inspection: normal inspection of the chest Resp Effort & Inspection: normal respiratory effort Auscultation: clear to auscultation bilaterally Cardio Rate: regular rate Rhythm: regular rhythm Peripheral pulses: Peripheral pulses 2+ throughout GI Inspection: Yes normal to inspection Palpation (GI): Soft to palpation and Tenderness to palpation present (GI) (Diffusely tender. No rebound or guarding) General: Yes no CVA tenderness Back/Spine/Pelvis Back: no CVA tenderness Skin General skin exam: no rashes or lesions noted Neuro General: patient oriented x3 and moves all extremities Cranial nerves: Yes Equal, round and reactive pupils present Cognition (Neuro): normal cognition Gait exam (Neuro): Normal gait present Extrem General: Yes normal to inspection Course Course Course Narrative: 1700-I independently reviewed the CT scan. Dilated colon seen ?volvulus verses obstruction. VSS. Patient well appearing. I spoke to surgery who will review this CT scan imaging Reevaluation(s) Reevaluation #1: 1715-Dr. Kramer reviewed the CT scan. Similar to previous CT scans. Came and saw the patient. Overall non toxic. Has not had diarrhea in several hours. Abdomen soft, +flatus. Will perform PO trial. Recommend patient follow-up with his institution director Susy Gordillo for outpatient colonoscopy and primary care doctor. Reevaluation #2: 1745-patient tolerated rod lexie with no complaints. Plan for discharge home with follow-up with outpatient GI. Reviewed worrisome signs and symptoms with the patient when to return to the emergency room. Comfortable discharge home. MDM - Abdominal Pain MDM Narrative Medical decision making narrative: 61-year-old male with history of chronic constipation who presents with 4 days of diarrhea and abdominal cramping. Will check labs, UA, CT Medical Records Attestation: I reviewed the patient's medical records. Lab Data Attestation: I reviewed the patient's lab results. Result diagrams: 05/06/22 10:59 05/06/22 10:59 Labs: Lab Results 05/06/22 05/06/22 05/06/22 Range/Units 10:59 10:59 15:49 WBC 9.3 (4.8-10.8) X10*3/uL RBC 5.37 (4.60-5.80) X10*6/uL Hgb 15.8 (14.0-18.0) g/dl Hct 45.0 (42.0-52.0) % MCV 83.8 (80.0-98.0) fL MCH 29.4 (27.0-33.0) pg MCHC 35.1 (31.0-36.0) g/dl RDW 12.9 (11.0-16.0) % Plt Count 111 L (160-400) X10*3/uL MPV 10.3 (9.4-12.4) fL Immature Gran % (Auto) 0.4 (0.0-0.4) % Neut % (Auto) 80.7 H (45-73) % Lymph % (Auto) 11.1 L (20-40) % [place] % (Auto) 7.8 (2-11) % Eos % (Auto) 0.0 (0-4) % Baso % (Auto) 0.0 (0-2) % Lymph # (Auto) 1.0 L (1.2-4.9) X10*3/uL [place] # (Auto) 0.7 (0.1-1.2) X10*3/uL Eos # (Auto) 0.0 (0.0-0.4) X10*3/uL Baso # (Auto) 0.0 (0.0-0.2) X10*3/uL Abs Immat Gran (auto) 0.04 H (0.00-0.03) X10*3/uL Absolute Neuts (auto) 7.5 (2.0-8.3) x10*3/uL Absolute Nucleated RBC 0.000 (0.0-0.012) X10*3/uL Nucleated RBC % (auto) 0.0 (0.0-0.2) /100WBC Sodium 140 (135-145) mmol/L Potassium 3.7 (3.3-5.1) mmol/L Chloride 108 (96-108) mmol/L Carbon Dioxide 19 L (22-29) mmol/L Anion Gap 17 (12-20) BUN 17 H (9-16) mg/dL Creatinine 1.47 H (0.5-1.4) mg/dL Estim Creat Clear Calc 71.6 Estimated GFR 49 Random Glucose 196 H (60-115) mg/dL Lactic Acid 0.8 (0.5-2.0) mmol/L Calcium 9.5 (8.4-10.2) mg/dL Total Bilirubin 0.6 (0.0-1.0) mg/dL Direct Bilirubin 0.2 (0.0-0.5) mg/dL AST 30 D (5-37) U/L ALT 56 H (0-40) U/L Alkaline Phosphatase 128 H (39-117) U/L Total Protein 7.3 (6.5-8.0) g/dL Albumin 4.6 (3.5-5.0) g/dL Lipase 43 (8-78) U/L COVID-19 (JEFFREY) (Negative) COVID-19 Clin Com 05/06/22 Range/Units 15:49 WBC (4.8-10.8) X10*3/uL RBC (4.60-5.80) X10*6/uL Hgb (14.0-18.0) g/dl Hct (42.0-52.0) % MCV (80.0-98.0) fL MCH (27.0-33.0) pg MCHC (31.0-36.0) g/dl RDW (11.0-16.0) % Plt Count (160-400) X10*3/uL MPV (9.4-12.4) fL Immature Gran % (Auto) (0.0-0.4) % Neut % (Auto) (45-73) % Lymph % (Auto) (20-40) % [place] % (Auto) (2-11) % Eos % (Auto) (0-4) % Baso % (Auto) (0-2) % Lymph # (Auto) (1.2-4.9) X10*3/uL [place] # (Auto) (0.1-1.2) X10*3/uL Eos # (Auto) (0.0-0.4) X10*3/uL Baso # (Auto) (0.0-0.2) X10*3/uL Abs Immat Gran (auto) (0.00-0.03) X10*3/uL Absolute Neuts (auto) (2.0-8.3) x10*3/uL Absolute Nucleated RBC (0.0-0.012) X10*3/uL Nucleated RBC % (auto) (0.0-0.2) /100WBC Sodium (135-145) mmol/L Potassium (3.3-5.1) mmol/L Chloride (96-108) mmol/L Carbon Dioxide (22-29) mmol/L Anion Gap (12-20) BUN (9-16) mg/dL Creatinine (0.5-1.4) mg/dL Estim Creat Clear Calc Estimated GFR Random Glucose (60-115) mg/dL Lactic Acid (0.5-2.0) mmol/L Calcium (8.4-10.2) mg/dL Total Bilirubin (0.0-1.0) mg/dL Direct Bilirubin (0.0-0.5) mg/dL AST (5-37) U/L ALT (0-40) U/L Alkaline Phosphatase (39-117) U/L Total Protein (6.5-8.0) g/dL Albumin (3.5-5.0) g/dL Lipase (8-78) U/L COVID-19 (JEFFREY) Negative (Negative) COVID-19 Clin Com See Note Imaging Data CT scan - abdomen: Attestation: I personally reviewed and interpreted this imaging study as follows: Radiologist's impression: FINDINGS: LUNG BASES: Mild bibasilar subsegmental atelectasis. 3 mm triangle shaped pleural-based nodule in the right middle lobe, unchanged likely a small pulmonary lymph node. Right coronary artery calcifications.? LIVER, GALLBLADDER, AND BILIARY TREE: Cirrhotic liver morphology. No liver lesion identified. No biliary ductal dilation. The gallbladder is unremarkable with no evidence of radiopaque gallstones, gallbladder wall thickening, or obvious pericholecystic inflammatory changes.? PANCREAS: Moderately atrophic. No pancreatic lesion or peripancreatic inflammatory change.? SPLEEN: Mildly enlarged measuring 15.4 cm in craniocaudal length. No splenic lesion.? ADRENAL GLANDS: Unremarkable.? KIDNEYS AND URETERS: Small 2-3 mm nonobstructing right lower pole renal calculus. No other renal calculi. No hydronephrosis. No renal lesion. Mild symmetric perirenal fascial stranding, nonspecific.? BLADDER: Unremarkable.? GASTROINTESTINAL TRACT: End seen is a gaseous dilation of the transverse colon up to 7.9 cm. Small amount of formed stool in the rectosigmoid colon. No appreciable bowel wall thickening or additional dilated bowel loops. Normal appendix. No ascites or free air.? ABDOMINAL WALL: No significant hernia is appreciated.? LYMPH NODES: No lymphadenopathy. VASCULAR: Normal caliber abdominal aorta. Mild atherosclerotic vascular calcifications. PELVIC VISCERA: Unremarkable.? OSSEOUS STRUCTURES: No acute fracture or suspicious osseous lesion. Mild disc degenerative changes in the lumbar spine and bridging/flowing osteophytes in the lumbar spine noted. CT/CT abdomen pelvis wo IV con IMPRESSION: ? 1. No acute intra-abdominal process identified. No appreciable colonic wall thickening or pericolonic inflammatory changes suggest colitis. 2. Persistent gaseous dilation of the transverse colon, which may be due to mild colonic ileus. 3. Cirrhotic liver morphology mild splenomegaly. 4. Small nonobstructing right lower pole renal calculus. ? Discharge Plan Discharge Clinical Impression: Gastroenteritis Patient Disposition: Home, Self-Care Instructions: Gastroenteritis (ED) Additional Instructions: Advance diet as tolerated Continue probiotics Call Susy Gordillo for outpatient colonscopy Return for worsening pain, vomiting or fever Prescriptions: No Action clozapine 100 mg tablet 300 mg PO BEDTIME 30 Days Qty: 90 0RF ibuprofen 800 mg tablet 800 mg PO Q8H PRN (Reason: for pain) 30 Days Qty: 90 3RF cholecalciferol (vitamin D3) 25 mcg (1,000 unit) capsule 25 mcg PO DAILY Qty: 90 12RF atorvastatin 10 mg tablet 10 mg PO DAILY Qty: 90 0RF furosemide 20 mg tablet 20 mg PO DAILY Qty: 90 0RF magnesium citrate Solution See Rx Instructions PO DAILY Qty: 300 3RF Rx Instructions: DRINK 1/2 bottle if no BM after 30 mins drink 1/2 and continue until 2 bottles drank or have a BM PO daily; magnesium hydroxide [Milk of Magnesia] 400 mg/5 mL suspension 20 ml PO BEDTIME Qty: 355 6RF lidocaine 5 % adhesive patch,medicated 2 patch topical DAILY PRN (Reason: pain) Qty: 30 1RF Rx Instructions: leave on most painful area for up to 12 hrs lidocaine [Aspercreme (lidocaine)] 4 % adhesive patch,medicated 2 patch topical DAILY PRN (Reason: pain) Qty: 30 1RF bisacodyl [Dulcolax (bisacodyl)] 5 mg tablet,delayed release (DR/EC) See Rx Instructions PO BEDTIME 30 Days Qty: 90 6RF Rx Instructions: 2 tabs qhs and 1 qam PO bedtime; docusate sodium 100 mg capsule 100 mg PO BID 30 Days Qty: 60 6RF (DME) blood-glucose meter [FreeStyle Lite Meter] Kit See Rx Instructions .Route Qty: 1 0RF Rx Instructions: Tests 4 X/day gabapentin 300 mg capsule 300 mg PO BEDTIME Qty: 90 0RF (DME) FreeStyle Lite Strips Strip See Rx Instructions .Route Qty: 100 5RF Rx Instructions: Tests 5X/day (DME) lancets [FreeStyle Lancets] 28 gauge misc See Rx Instructions .Route Qty: 100 4RF Rx Instructions: Tests 5x/day metformin 500 mg tablet 1,000 mg PO BID 90 Days Qty: 360 1RF Fiber Therapy (m-cellulose) 500 mg tablet 1,000 mg PO TID Qty: 180 0RF benzonatate [Tessalon Perles] 100 mg capsule 100 mg PO BID PRN (Reason: cough) Qty: 30 0RF benztropine 0.5 mg tablet 0.5 mg PO BID hydroxyzine pamoate 50 mg capsule 50 mg PO TID PRN (Reason: Anxiety) meclizine 25 mg tablet 25 mg PO QID PRN (Reason: dizziness) Qty: 20 0RF simethicone 180 mg capsule 180 mg PO TIDWMEAL 30 Days Qty: 90 6RF Rx Instructions: after meals,Please dispense in bottle and not blister packs!! metoclopramide HCl [Reglan] 5 mg tablet 5 mg PO .tidac Qty: 90 6RF Linzess 290 mcg capsule 290 mcg PO QAM 30 Days Qty: 30 6RF Jardiance 25 mg tablet 25 mg PO QAM Qty: 30 6RF Tresiba FlexTouch U-200 200 unit/mL (3 mL) insulin pen 26 unit subcut DAILY 90 Days Qty: 11.7 2RF (DME) pen needle, diabetic [BD Ultra-Fine Orig Pen Needle] 29 gauge x 1/2 needle See Rx Instructions .ROUTE DAILY Qty: 100 3RF Rx Instructions: As directed daily polyethylene glycol 3350 [Miralax] 17 gram powder in packet 17 g PO BID Qty: 30 2RF Referrals: Luis Manuel aGrcia MD [Primary Care Provider] - Susy Gordillo ANP-C [Nurse Practitioner] -
[2022-05-06 15:40] VITALS: BP 108/70; PULSE 77; RESP 16; TEMP 37; O2SAT 98
[2022-05-06] MEDS: 0.9 % Sodium Chloride 1,000 ML 999 ML IV (16:06)
[2022-05-06 16:08] VITALS: BP 119/72; PULSE 88; RESP 19; TEMP 37.1; O2SAT 98
[2022-05-06 16:08] LABS: Lactic Acid 0.8 mmol/L (0.5-2.0)
--- NOTE | 2022-05-06 16:08 | PC.NURSE ---
Care of patient assumed now in the ED. Patient presentes endorsing diarrhea for four days. Today, while at work at [employer], he developed abdominal pain, 03/23 described as someone punching me, cramps so came to ED. He denies blood in his stool, but it used to be green. He is overall well-appearing. Abdomen is obese, soft, tender to palpation.
[2022-05-06 16:20] LABS: COVID-19 Test Negative (Negative)
--- NOTE | 2022-05-06 17:42 | PM.CNGS ---
History of Present Illness Consult details Consult date: 05/06/22 Narrative: 61M with multiple medical problems including obesity, CKD, schizzoaffective d/o, DM, who acme to the ED today because of diarrhea. He says that he has had loose stools for about 5 days now. He says that he was at work today when he felt some crampy abdominal pain as well, so he went to the ED. He denies any vomitting. He denies blood per rectum. He had a CT scan showing dilatation of the colon, mostly on the transverse segment. Review of his records reveal that he has had multiple CT scans the past 2 years showing similar findings. He is being followed by the GI service for chronic constipation and has been on multiple bowel regimen. He however is on psychiatric medications including benztropine and clozapine for years. He had been admitted over a year ago for colonic dilatation on CT as well. This was deemed to be secondary to colonic ileus with anticholinergic psych meds. He currently denies any abdominal pain. He says he passes a lot of flatus. He says his diarrhea seems improved the past few hours. Review of Systems Constitutional: Constitutional: Denies chills and Denies fever(s) Cardiovascular: Cardiovascular: Denies chest pain, Denies dyspnea and Denies dyspnea on exertion Respiratory: Respiratory: Denies cough, Denies dyspnea and Denies dyspnea on exertion Gastrointestinal: Gastrointestinal: Denies hematochezia, Denies change in bowel habits and Reports constipation Genitourinary: Genitourinary: Denies hematuria and Denies difficulty urinating Musculoskeletal: Musculoskeletal: Denies back pain and Denies limited range of motion Neurologic: Denies focal weakness and Denies convulsions Psychiatric: Psychiatric: Denies depression and Denies mood swings [facility] Past Medical History Medical History Benign essential hypertension Bowel obstruction Chronic idiopathic constipation Chronic kidney disease (CKD), stage III (moderate) Diabetes type 2, uncontrolled Diabetic polyneuropathy associated with 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 mellitus Dyslipidemia Elevated LFTs Healed wound Hospital discharge follow-up 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 mellitus Knee osteoarthritis Knee pain, bilateral 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 Melena Morbid obesity Obesity (BMI 30-39.9) Pain in both feet Pure hypercholesterolemia Right hand pain Schizo affective schizophrenia Schizoaffective disorder Type 2 diabetes mellitus with diabetic chronic kidney disease Family History Family History Father HTN (hypertension) Mother Diabetes Other Mental health problem Surgical History Surgical History History of repair of congenital cleft palate Hx of circumcision Social History Social History Household Members: None Housing: Apartment Do you presently have visiting nurse or other home services: Yes Alcohol intake: current Alcohol intake frequency: does not drink Alcohol type: beer, wine and hard liquor Patient Tobacco Use Status: Former Tobacco user Tobacco use type: Cigarette Cigarettes Per Day: 15 Years Smoked: 8 quit 30 years ago e-Cigarette/Vaping Use: Never Used Second Hand Smoke Exposure: No service: No Current occupational status: employed Current occupation: [employer] Cognitive needs: No Hearing needs: No Vision needs: Yes (glasses) Meds Allergies Allergy/AdvReac Type Severity Reaction Status Date / Time No Known Allergies Allergy Verified 05/12/22 10:26 [No Known Allergies*] Home Medications Medication Instructions Recorded Confirmed Last Taken Type hydroxyzine pamoate 50 mg capsule 50 mg PO TID PRN Anxiety 09/18/20 04/29/22 Unknown History benztropine 0.5 mg tablet 0.5 mg PO BID 04/29/22 04/29/22 Unknown History L.acidoph, paracasei,B. lactis 10 cell PO 05/12/22 Unknown History billion cell capsule (Digestive Advantage Advanced Probiotic) clozapine 100 mg tablet 100 mg PO TID 05/12/22 Unknown History Physical Exam Vital Signs: Vital Signs: Last Vital Signs Temp 98.8 F 05/06/22 16:08 Pulse 88 05/06/22 16:08 Resp 19 05/06/22 16:08 BP 119/72 05/06/22 16:08 Pulse Ox 98 05/06/22 16:08 O2 Del Method 05/06/22 16:08 BMI result Body Mass Index 33.2 Const: General: comfortable and no acute distress Orientation/consciousness: patient oriented x3 Neck: Neck: Yes no lymphadenopathy Resp: Auscultation: clear to auscultation bilaterally Cardio: Rhythm: regular rhythm GI: Other: protuberant, soft, Palpation (GI): Soft to palpation, nontender and no guarding Neuro: General: patient oriented x3 Results Labs Result diagrams: 05/06/22 10:59 05/06/22 10:59 Labs: Abnormal lab results 05/06/22 05/06/22 Range/Units 10:59 10:59 Plt Count 111 L (160-400) X10*3/uL Neut % (Auto) 80.7 H (45-73) % Lymph % (Auto) 11.1 L (20-40) % Lymph # (Auto) 1.0 L (1.2-4.9) X10*3/uL Abs Immat Gran (auto) 0.04 H (0.00-0.03) X10*3/uL Carbon Dioxide 19 L (22-29) mmol/L BUN 17 H (9-16) mg/dL Creatinine 1.47 H (0.5-1.4) mg/dL Random Glucose 196 H (60-115) mg/dL ALT 56 H (0-40) U/L Alkaline Phosphatase 128 H (39-117) U/L Short CBC 05/06/22 Range/Units 10:59 WBC 9.3 (4.8-10.8) X10*3/uL Hgb 15.8 (14.0-18.0) g/dl Hct 45.0 (42.0-52.0) % Plt Count 111 L (160-400) X10*3/uL BMP 05/06/22 10:59 Sodium 140 Potassium 3.7 Chloride 108 Carbon Dioxide 19 L BUN 17 H Creatinine 1.47 H Calcium 9.5 Liver Function 05/06/22 Range/Units 10:59 Total Bilirubin 0.6 (0.0-1.0) mg/dL Direct Bilirubin 0.2 (0.0-0.5) mg/dL AST 30 D (5-37) U/L ALT 56 H (0-40) U/L Alkaline Phosphatase 128 H (39-117) U/L Albumin 4.6 (3.5-5.0) g/dL All other labs normal. Imaging Additional studies: Laboratory Results WBC 9.3 X10*3/uL (4.8-10.8) 05/06/22 10:59 RBC 5.37 X10*6/uL (4.60-5.80) 05/06/22 10:59 Hgb 15.8 g/dl (14.0-18.0) 05/06/22 10:59 Hct 45.0 % (42.0-52.0) 05/06/22 10:59 MCV 83.8 fL (80.0-98.0) 05/06/22 10:59 MCH 29.4 pg (27.0-33.0) 05/06/22 10:59 MCHC 35.1 g/dl (31.0-36.0) 05/06/22 10:59 RDW 12.9 % (11.0-16.0) 05/06/22 10:59 Plt Count 111 X10*3/uL (160-400) L 05/06/22 10:59 MPV 10.3 fL (9.4-12.4) 05/06/22 10:59 Immature Gran % (Auto) 0.4 % (0.0-0.4) 05/06/22 10:59 Neut % (Auto) 80.7 % (45-73) H 05/06/22 10:59 Lymph % (Auto) 11.1 % (20-40) L 05/06/22 10:59 [place] % (Auto) 7.8 % (2-11) 05/06/22 10:59 Eos % (Auto) 0.0 % (0-4) 05/06/22 10:59 Baso % (Auto) 0.0 % (0-2) 05/06/22 10:59 Lymph # (Auto) 1.0 X10*3/uL (1.2-4.9) L 05/06/22 10:59 [place] # (Auto) 0.7 X10*3/uL (0.1-1.2) 05/06/22 10:59 Eos # (Auto) 0.0 X10*3/uL (0.0-0.4) 05/06/22 10:59 Baso # (Auto) 0.0 X10*3/uL (0.0-0.2) 05/06/22 10:59 Abs Immat Gran (auto) 0.04 X10*3/uL (0.00-0.03) H 05/06/22 10:59 Absolute Neuts (auto) 7.5 x10*3/uL (2.0-8.3) 05/06/22 10:59 Absolute Nucleated RBC 0.000 X10*3/uL (0.0-0.012) 05/06/22 10:59 Nucleated RBC % (auto) 0.0 /100WBC (0.0-0.2) 05/06/22 10:59 Sodium 140 mmol/L (135-145) 05/06/22 10:59 Potassium 3.7 mmol/L (3.3-5.1) 05/06/22 10:59 Chloride 108 mmol/L (96-108) 05/06/22 10:59 Carbon Dioxide 19 mmol/L (22-29) L 05/06/22 10:59 Anion Gap 17 (12-20) 05/06/22 10:59 BUN 17 mg/dL (9-16) H 05/06/22 10:59 Creatinine 1.47 mg/dL (0.5-1.4) H 05/06/22 10:59 Estim Creat Clear Calc 71.6 05/06/22 10:59 Estimated GFR 49 05/06/22 10:59 Random Glucose 196 mg/dL (60-115) H 05/06/22 10:59 Lactic Acid 0.8 mmol/L (0.5-2.0) 05/06/22 15:49 Calcium 9.5 mg/dL (8.4-10.2) 05/06/22 10:59 Total Bilirubin 0.6 mg/dL (0.0-1.0) 05/06/22 10:59 Direct Bilirubin 0.2 mg/dL (0.0-0.5) 05/06/22 10:59 AST 30 U/L (5-37) D 05/06/22 10:59 ALT 56 U/L (0-40) H 05/06/22 10:59 Alkaline Phosphatase 128 U/L (39-117) H 05/06/22 10:59 Total Protein 7.3 g/dL (6.5-8.0) 05/06/22 10:59 Albumin 4.6 g/dL (3.5-5.0) 05/06/22 10:59 Lipase 43 U/L (8-78) 05/06/22 10:59 COVID-19 (JEFFREY) Negative (Negative) 05/06/22 15:49 COVID-19 Clin Com See Note 05/06/22 15:49 Impressions Abdomen/Pelvis CT 05/06/22 16:45 IMPRESSION: 1. No acute intra-abdominal process identified. No appreciable colonic wall thickening or pericolonic inflammatory changes suggest colitis. 2. Persistent gaseous dilation of the transverse colon, which may be due to mild colonic ileus. 3. Cirrhotic liver morphology mild splenomegaly. 4. Small nonobstructing right lower pole renal calculus. Assessment and Plan (1) Chronic idiopathic constipation: Status: Acute I have reviewed the rest of his previous CT images and his CT today is similar to these, with note of colonic dilatation c/w ileus/constipation likely due to psychiatric meds and other chronic medical illnesses. His exam is very benign. He does not have any tenderness at this time. I would recommend a colonoscopy with his gastroentrologist, although this may be done as an outpt of he is comfortable enough to go home. He may continue with his current bowel regimen as well. He looks comfortable at this time. Procedures Date of Service Date of Service: 05/06/22
== END 2022-05-06 18:04 | disposition home or self-care (01) ==
PROVIDERS: Nurse Practitioner Family; Emergency Provider Student in an Organized Health Care Education/Training Program; PCP Internal Medicine
DX: K52.9 Noninfective gastroenteritis and colitis, unspecified (principal); R10.30 Lower abdominal pain, unspecified; Z79.899 Other long term (current) drug therapy; Z87.891 Personal history of nicotine dependence; Z20.822 Contact with and (suspected) exposure to COVID-19
CPT/HCPCS: 36415; 74176; 80053; 82248; 83605; 83690; 85025; 87040; 87635; 96360; 99284

== ENCOUNTER 2022-05-10 07:51 | Outpatient (REF) | payer OTHER, SELFPAY ==
[2022-05-10 08:02] LABS: MANUAL DIFF FLAG NO
[2022-05-10 08:30] LABS: Hematocrit 44.8 % (42.0-52.0); Hemoglobin 15.7 g/dl (14.0-18.0); Imm Gran Abs Auto 0.04 X10*3/uL (0.00-0.03); Imm Gran Pct Auto 0.5 % (0.0-0.4); Lymphocytes Absolute Auto 1.9 X10*3/uL (1.2-4.9); Lymphocytes Percent Auto 24.3 % (20-40); Mean Corpuscular Hemoglobin 29.8 pg (27.0-33.0); Mean Platelet Volume 10.1 fL (9.4-12.4); Monocytes Absolute Auto 0.7 X10*3/uL (0.1-1.2); Monocytes Percent Auto 8.9 % (2-11); Neutrophils Absolute Auto 5.2 x10*3/uL (2.0-8.3); Neutrophils Percent Auto 66.3 % (45-73); Platelet Count 115 X10*3/uL (160-400); Red Blood Count 5.27 X10*6/uL (4.60-5.80); White Blood Count 7.9 X10*3/uL (4.8-10.8)
== END 2022-05-10 07:52 | disposition home or self-care (01) ==
LOC: HO.LABR 07:51
PROVIDERS: PCP Internal Medicine; Visit Provider Nurse Practitioner Psychiatric/Mental Health
DX: Z79.899 Other long term (current) drug therapy (principal)
CPT/HCPCS: 36415; 85025

== ENCOUNTER → 2022-05-12 10:17 | Outpatient (BNVA) | payer OTHER, SELFPAY | PROVIDERS: PCP Internal Medicine; Visit Provider Nurse Practitioner | DX: Z12.11 Encounter for screening for malignant neoplasm of colon (principal); K52.9 Noninfective gastroenteritis and colitis, unspecified; N18.30 Chronic kidney disease, stage 3 unspecified; F25.9 Schizoaffective disorder, unspecified | CPT/HCPCS: 99212 ==

== ENCOUNTER 2022-06-01 16:06 | Outpatient (REF) | payer OTHER, SELFPAY ==
[2022-06-01 16:51] LABS: Imm Gran Abs Auto 0.03 X10*3/uL (0.00-0.03); Imm Gran Pct Auto 0.4 % (0.0-0.4); PLT CLUMP 1; SCAN SMEAR FLAG 1
[2022-06-01 16:53] LABS: Hematocrit 45.3 % (42.0-52.0); Lymphocytes Absolute Auto 1.7 X10*3/uL (1.2-4.9); Lymphocytes Percent Auto 22.7 % (20-40); Mean Corpuscular HGB Conc 35.3 g/dl (31.0-36.0); Mean Corpuscular Hemoglobin 29.6 pg (27.0-33.0); Mean Corpuscular Volume 83.9 fL (80.0-98.0); Mean Platelet Volume 10.3 fL (9.4-12.4); Monocytes Absolute Auto 0.5 X10*3/uL (0.1-1.2); Monocytes Percent Auto 6.9 % (2-11); Neutrophils Absolute Auto 5.1 x10*3/uL (2.0-8.3); Red Cell Distribution Width 12.8 % (11.0-16.0); WBCANC 7.4 X10*3/uL
[2022-06-01 16:56] LABS: Platelet Count 121 X10*3/uL (160-400); White Blood Count 7.4 X10*3/uL (4.8-10.8)
[2022-06-01 16:57] LABS: MANUAL DIFF FLAG NO
== END 2022-06-01 16:07 | disposition home or self-care (01) ==
LOC: HO.LAB 16:06
PROVIDERS: Visit Provider Nurse Practitioner Psychiatric/Mental Health
DX: Z79.899 Other long term (current) drug therapy (principal)
CPT/HCPCS: 36415; 85025

== ENCOUNTER 2022-06-20 12:19 | Emergency (ER) | payer OTHER, SELFPAY ==
[2022-06-20 13:15] VITALS: BP 120/77; PULSE 72; RESP 18; TEMP 36.1; O2SAT 98; BMI 35.1
--- NOTE | 2022-06-20 13:15 | ED.FEVER ---
HPI - Fever General Chief Complaint: Upper Respiratory Symptoms Stated Complaint: fever body aches Time Seen by Provider: 06/20/22 13:19 Source: patient Mode of arrival: ambulatory Limitations: no limitations History of Present Illness HPI Narrative: Cough runny nose for 2 days, sharronestefani is not helping MD elicited complaint: fever and weakness Onset (ago): day(s) Context: sick contacts Exacerbating factors: nothing Relieving factors: nothing Associated symptoms: chills and myalgias Related Data Home Medications Medication Instructions Recorded Confirmed hydroxyzine pamoate 50 mg capsule 50 mg PO TID PRN Anxiety 09/18/20 04/29/22 benztropine 0.5 mg tablet 0.5 mg PO BID 04/29/22 04/29/22 L.acidoph, paracasei,B. lactis 10 cell PO 05/12/22 billion cell capsule (Digestive Advantage Advanced Probiotic) clozapine 100 mg tablet 100 mg PO TID 05/12/22 Previous Rx's Medication Instructions Recorded cholecalciferol (vitamin D3) 25 25 mcg PO DAILY #90 caps 08/15/21 mcg (1,000 unit) capsule atorvastatin 10 mg tablet 10 mg PO DAILY #90 tabs 10/18/21 magnesium citrate See Rx Instructions PO DAILY #300 11/04/21 mL magnesium hydroxide 400 mg/5 mL 20 ml PO BEDTIME #355 mL 11/05/21 oral suspension (Milk of Magnesia) lidocaine 5 % topical patch 2 patch topical DAILY PRN pain #30 01/11/22 ea polyethylene glycol 3350 17 gram 17 g PO BID #30 ea 01/14/22 oral powder packet (Miralax) meclizine 25 mg tablet 25 mg PO QID PRN dizziness #20 tabs 01/19/22 lidocaine 4 % topical patch 2 patch topical DAILY PRN pain #30 01/20/22 (Aspercreme (lidocaine)) ea bisacodyl 5 mg tablet,delayed See Rx Instructions PO BEDTIME 30 01/31/22 release (Dulcolax (bisacodyl)) days #90 tabs insulin degludec 200 unit/mL (3 26 unit (0.13 mL) subcut DAILY 90 02/02/22 mL) subcutaneous pen (Tresiba days #11.7 mL FlexTouch U-200 insulin) pen needle, diabetic 29 gauge x #100 ea 02/02/2208/15 (BD Ultra-Fine Original Pen Needle) docusate sodium 100 mg capsule 100 mg PO BID 30 days #60 caps 02/15/22 blood-glucose meter (FreeStyle #1 ea 02/18/22 Lite Meter kit) blood sugar diagnostic (FreeStyle #100 ea 03/13/22 Lite Strips) lancets 28 gauge (FreeStyle #100 ea 03/13/22 Lancets) metformin 500 mg tablet 1,000 mg PO BID 90 days #360 tabs 03/23/22 linaclotide 290 mcg capsule 290 mcg PO QAM 30 days #30 caps 04/01/22 (Linzess) metoclopramide HCl 5 mg tablet 5 mg PO .tidac #90 tabs 04/01/22 (Reglan) peg 3350-electrolytes 236 240 ml PO Q10M 1 day #4,000 mL 05/12/22 gram-22.74 gram-6.74 gram-5.86 gram solution (Golytely) furosemide 20 mg tablet 20 mg PO DAILY #90 tabs 05/23/22 gabapentin 300 mg capsule 300 mg PO BEDTIME 90 days #90 caps 05/23/22 empagliflozin 25 mg tablet 25 mg PO QAM #30 tabs 05/25/22 (Jardiance) methylcellulose (laxative) 500 mg 1,000 mg PO TID #180 tabs 06/10/22 tablet (Fiber Therapy (methylcellulose)) sennosides 8.6 mg tablet (senna) 17.2 mg PO BEDTIME for 06/20/22 constipation #60 tabs simethicone 180 mg capsule 180 mg PO TID #90 caps 06/20/22 Allergies Allergy/AdvReac Type Severity Reaction Status Date / Time No Known Allergies Allergy Verified 05/12/22 10:26 [No Known Allergies*] Review of Systems Constitutional: Constitutional: Reports no additional constitutional complaints Eyes: Eyes: Reports no additional eye complaints ENT: Denies dizziness Cardiovascular: Cardiovascular: Reports no additional cardiovascular complaints Respiratory: Respiratory: Reports as per HPI Gastrointestinal: Gastrointestinal: Reports no additional gastrointestinal complaints Musculoskeletal: Musculoskeletal: Reports no additional musculoskeletal complaints Integumentary/Breasts: Skin/Breast: Denies rash Neurologic: Reports system reviewed and no additional complaints, except as documented, Denies dizziness and Denies Sensory deficit (Neuro) Psychiatric: Psychiatric: Denies anxiety PMFSH Past Medical History Medical History Benign essential hypertension Bowel obstruction Chronic idiopathic constipation Chronic kidney disease (CKD), stage III (moderate) Diabetes type 2, uncontrolled Diabetic polyneuropathy associated with 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 mellitus Dyslipidemia Elevated LFTs Healed wound Hospital discharge follow-up 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 mellitus Knee osteoarthritis Knee 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, 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 Melena Morbid obesity Obesity (BMI 30-39.9) Pain in both feet Pure hypercholesterolemia Right hand pain Schizo affective schizophrenia Schizoaffective disorder Type 2 diabetes mellitus with diabetic chronic kidney disease Surgical History History of repair of congenital cleft palate Hx of circumcision Family History Family History Father HTN (hypertension) Mother Diabetes Other Mental health problem Social History Social History Household Members: None Housing: Apartment Do you presently have visiting nurse or other home services: Yes Alcohol intake: current Alcohol intake frequency: does not drink Alcohol type: beer, wine and hard liquor Patient Tobacco Use Status: Former Tobacco user Tobacco use type: Cigarette Cigarettes Per Day: 15 Years Smoked: 8 quit 30 years ago e-Cigarette/Vaping Use: Never Used Second Hand Smoke Exposure: No service: No Current occupational status: employed Current occupation: [employer] Cognitive needs: No Hearing needs: No Vision needs: Yes (glasses) Physical Exam Vital Signs: Vital Signs: Last Vital Signs Temp 97.0 F 06/20/22 13:15 Pulse 72 06/20/22 13:15 Resp 18 06/20/22 13:15 BP 120/77 06/20/22 13:15 Pulse Ox 98 06/20/22 13:15 O2 Del Method 06/20/22 13:15 BMI result Body Mass Index 35.1 Const: Other: Male with MR, he has had his COVID shots. General: healthy appearing Nutritional Appearance: obese Orientation/consciousness: oriented to person and patient oriented x3 Limitations: behavioral limitations HEENT: Head: Yes normal to inspection Ears: external ears normal General nose exam: Normal external nose present Mouth: Normal oral and palatal mucosa present and oropharynx normal Throat: Yes posterior oropharynx normal Eyes: General: appearance normal, both eyes and all related structures Neck: Other: supple Neck: Yes normal visual inspection Chest: Chest palpation & inspection: normal inspection of the chest Resp: Auscultation: clear to auscultation bilaterally Cardio: Jugular venous distension: no JVD Rate: regular rate Rhythm: regular rhythm Heart sounds: S1 normal heart sound present and S2 normal heart sound present GI: Inspection: Yes normal to inspection Palpation (GI): Soft to palpation, nontender and No hepatosplenomegaly present Auscultation: normal bowel sounds : General: Yes no CVA tenderness Back/Spine/Pelvis: Back: no CVA tenderness Skin: General skin exam: no rashes or lesions noted Neuro: General: oriented to person and patient oriented x3 Cranial nerves: Yes CN's II-XII intact bilaterally Motor exam (neuro): 5/5 motor strength present throughout Sensory Exam: No Sensory deficit (Neuro) Extrem: General: Yes normal to inspection Psych: Appearance: grossly normal Course Reevaluation(s) Reevaluation #1: patient with COVID positive will dc home as he is looking well with good vitals and pulse ox Time: 14:32 MDM - Fever Lab Data Labs: Lab Results 06/20/22 Range/Units 13:19 Influenza Type A (PCR) NEGATIVE (Negative) Influenza Type B (PCR) NEGATIVE (Negative) RSV RNA Qual (PCR) NEGATIVE (Negative) SARS-CoV-2 RNA (RT-PCR) POSITIVE A (Negative) Discharge Plan Discharge Clinical Impression: COVID-19 Patient Disposition: Home, Self-Care Instructions: COVID-19 (Coronavirus Disease 2019) (ED) Prescriptions: No Action cholecalciferol (vitamin D3) 25 mcg (1,000 unit) capsule 25 mcg PO DAILY Qty: 90 12RF atorvastatin 10 mg tablet 10 mg PO DAILY Qty: 90 0RF magnesium citrate Solution See Rx Instructions PO DAILY Qty: 300 3RF Rx Instructions: DRINK 1/2 bottle if no BM after 30 mins drink 1/2 and continue until 2 bottles drank or have a BM PO daily; magnesium hydroxide [Milk of Magnesia] 400 mg/5 mL suspension 20 ml PO BEDTIME Qty: 355 6RF lidocaine 5 % adhesive patch,medicated 2 patch topical DAILY PRN (Reason: pain) Qty: 30 1RF Rx Instructions: leave on most painful area for up to 12 hrs lidocaine [Aspercreme (lidocaine)] 4 % adhesive patch,medicated 2 patch topical DAILY PRN (Reason: pain) Qty: 30 1RF bisacodyl [Dulcolax (bisacodyl)] 5 mg tablet,delayed release (DR/EC) See Rx Instructions PO BEDTIME 30 Days Qty: 90 6RF Rx Instructions: 2 tabs qhs and 1 qam PO bedtime; docusate sodium 100 mg capsule 100 mg PO BID 30 Days Qty: 60 6RF (DME) blood-glucose meter [FreeStyle Lite Meter] Kit See Rx Instructions .Route Qty: 1 0RF Rx Instructions: Tests 4 X/day (DME) FreeStyle Lite Strips Strip See Rx Instructions .Route Qty: 100 5RF Rx Instructions: Tests 5X/day (DME) lancets [FreeStyle Lancets] 28 gauge misc See Rx Instructions .Route Qty: 100 4RF Rx Instructions: Tests 5x/day metformin 500 mg tablet 1,000 mg PO BID 90 Days Qty: 360 1RF furosemide 20 mg tablet 20 mg PO DAILY Qty: 90 0RF gabapentin 300 mg capsule 300 mg PO BEDTIME 90 Days Qty: 90 1RF Jardiance 25 mg tablet 25 mg PO QAM Qty: 30 3RF Fiber Therapy (m-cellulose) 500 mg tablet 1,000 mg PO TID Qty: 180 0RF simethicone 180 mg capsule 180 mg PO TID Qty: 90 0RF sennosides [senna] 8.6 mg tablet 17.2 mg PO BEDTIME Qty: 60 0RF benztropine 0.5 mg tablet 0.5 mg PO BID hydroxyzine pamoate 50 mg capsule 50 mg PO TID PRN (Reason: Anxiety) meclizine 25 mg tablet 25 mg PO QID PRN (Reason: dizziness) Qty: 20 0RF clozapine 100 mg tablet 100 mg PO TID Digestive Advantage Advanced 10 billion cell capsule PO peg 3350-electrolytes [Golytely] 236-22.74-6.74 -5.86 gram recon soln 240 ml PO Q10M 1 Days Qty: 4000 0RF Rx Instructions: until fecal effluent is clear; do not exceed a total volume of 2,000 mL metoclopramide HCl [Reglan] 5 mg tablet 5 mg PO .tidac Qty: 90 6RF Linzess 290 mcg capsule 290 mcg PO QAM 30 Days Qty: 30 6RF Tresiba FlexTouch U-200 200 unit/mL (3 mL) insulin pen 26 unit subcut DAILY 90 Days Qty: 11.7 2RF (DME) pen needle, diabetic [BD Ultra-Fine Orig Pen Needle] 29 gauge x 1/2 needle See Rx Instructions .ROUTE DAILY Qty: 100 3RF Rx Instructions: As directed daily polyethylene glycol 3350 [Miralax] 17 gram powder in packet 17 g PO BID Qty: 30 2RF Referrals: Luis Manuel Garcia MD [Primary Care Provider] - 1 week
[2022-06-20 14:12] LABS: Influenza A PCR NEGATIVE (Negative); Influenza B PCR NEGATIVE (Negative); Resp Syncy Virus RNA Qual PCR NEGATIVE (Negative); SARS COV2 PCR INHOUSE POSITIVE (Negative)
== END 2022-06-20 14:38 | disposition home or self-care (01) ==
LOC: HO.ED 14:36
PROVIDERS: Emergency Provider Emergency Medicine; PCP Internal Medicine
DX: U07.1 COVID-19 (principal); R50.9 Fever, unspecified
CPT/HCPCS: 0241U; 99281; 99283

== ENCOUNTER 2022-06-28 16:20 | Outpatient (REF) | payer OTHER, SELFPAY ==
[2022-06-28 16:55] LABS: Basophils Percent Auto 0.1 % (0-2); Hemoglobin 15.8 g/dl (14.0-18.0); Imm Gran Abs Auto 0.07 X10*3/uL (0.00-0.03); PLT CLUMP 1; SCAN SMEAR FLAG 1
[2022-06-28 16:57] LABS: Hematocrit 45.3 % (42.0-52.0); Lymphocytes Absolute Auto 1.5 X10*3/uL (1.2-4.9); Lymphocytes Percent Auto 21.5 % (20-40); Mean Corpuscular HGB Conc 34.9 g/dl (31.0-36.0); Mean Corpuscular Hemoglobin 29.4 pg (27.0-33.0); Mean Corpuscular Volume 84.2 fL (80.0-98.0); Mean Platelet Volume 10.4 fL (9.4-12.4); Monocytes Absolute Auto 0.5 X10*3/uL (0.1-1.2); Monocytes Percent Auto 7.7 % (2-11); Neut%MD 69.7 %; Neutrophils Absolute Auto 4.7 x10*3/uL (2.0-8.3); Neutrophils Percent Auto 69.7 % (45-73); Red Blood Count 5.38 X10*6/uL (4.60-5.80); WBCANC 6.7 X10*3/uL
[2022-06-28 17:04] LABS: Platelet Count 131 X10*3/uL (160-400); White Blood Count 6.7 X10*3/uL (4.8-10.8)
[2022-06-28 17:05] LABS: MANUAL DIFF FLAG NO
== END 2022-06-28 16:21 | disposition home or self-care (01) ==
LOC: HO.LABR 16:20
PROVIDERS: PCP Internal Medicine; Visit Provider Nurse Practitioner Psychiatric/Mental Health
DX: Z79.899 Other long term (current) drug therapy (principal)
CPT/HCPCS: 36415; 85025

== ENCOUNTER 2022-07-09 17:35 | Emergency (ER) | payer OTHER, SELFPAY ==
--- NOTE | ~2022-07-09 | XR_ITS ---
EXAMINATION: XR ABDOMEN KUB CLINICAL INDICATION: Constipation COMPARISON: CT 05/06/2022 TECHNIQUE: AP view of the abdomen. FINDINGS: Large volume of stool in the distal colon and rectosigmoid colon. Gas within nondilated stomach and small bowel. Mild convex left lumbar rotoscoliosis. XR/XR KUB IMPRESSION: Large volume of stool in the distal colon consistent with history of constipation.
[2022-07-09 18:11] VITALS: BP 132/67; PULSE 95; RESP 20; TEMP 36.9; O2SAT 97; BMI 31.8
--- NOTE | 2022-07-09 19:32 | ED_ITS ---
HPI - Abdominal Pain General Chief Complaint: Abdominal Pain Stated Complaint: constipated, high bp Time Seen by Provider: 07/09/22 19:30 Source: patient Mode of arrival: ambulatory Limitations: no limitations History of Present Illness HPI narrative: 61-year-old male presents with 5 days of constipation and abdominal pain. Patient has a significant history of idiopathic constipation, is followed by Gastroenterology. Has had multiple visits to the emergency department for constipation. He does not report any fevers or chills, is able to eat and drink without difficulty. Patient is passing flatus. MD elicited complaint: abdominal pain and other (Constipation) Pertinent past history: constipation Onset (ago): day(s) (5) Pain Consistency: constant Location: diffuse Severity: moderate Pain scale (0-10): 7 Quality: cramping and fullness Migration to: no migration Exacerbating factors: eating and movement Relieving factors: nothing Context: history of similar episodes Associated symptoms: constipation Related Data Home Medications Medication Instructions Recorded Confirmed hydroxyzine pamoate 50 mg capsule 50 mg PO TID PRN Anxiety 09/18/20 04/29/22 benztropine 0.5 mg tablet 0.5 mg PO BID 04/29/22 04/29/22 L.acidoph, paracasei,B. lactis 10 cell PO 05/12/22 billion cell capsule (Digestive Advantage Advanced Probiotic) clozapine 100 mg tablet 100 mg PO TID 05/12/22 Previous Rx's Medication Instructions Recorded cholecalciferol (vitamin D3) 25 25 mcg PO DAILY #90 caps 08/15/21 mcg (1,000 unit) capsule atorvastatin 10 mg tablet 10 mg PO DAILY #90 tabs 10/18/21 magnesium citrate See Rx Instructions PO DAILY #300 11/04/21 mL magnesium hydroxide 400 mg/5 mL 20 ml PO BEDTIME #355 mL 11/05/21 oral suspension (Milk of Magnesia) lidocaine 5 % topical patch 2 patch topical DAILY PRN pain #30 01/11/22 ea polyethylene glycol 3350 17 gram 17 g PO BID #30 ea 01/14/22 oral powder packet (Miralax) meclizine 25 mg tablet 25 mg PO QID PRN dizziness #20 tabs 01/19/22 lidocaine 4 % topical patch 2 patch topical DAILY PRN pain #30 01/20/22 (Aspercreme (lidocaine)) ea bisacodyl 5 mg tablet,delayed See Rx Instructions PO BEDTIME 30 01/31/22 release (Dulcolax (bisacodyl)) days #90 tabs insulin degludec 200 unit/mL (3 26 unit (0.13 mL) subcut DAILY 90 02/02/22 mL) subcutaneous pen (Tresiba days #11.7 mL FlexTouch U-200 insulin) pen needle, diabetic 29 gauge x #100 ea 02/02/22/2 (BD Ultra-Fine Original Pen Needle) docusate sodium 100 mg capsule 100 mg PO BID 30 days #60 caps 02/15/22 blood-glucose meter (FreeStyle #1 ea 02/18/22 Lite Meter kit) blood sugar diagnostic (FreeStyle #100 ea 03/13/22 Lite Strips) lancets 28 gauge (FreeStyle #100 ea 03/13/22 Lancets) metformin 500 mg tablet 1,000 mg PO BID 90 days #360 tabs 03/23/22 linaclotide 290 mcg capsule 290 mcg PO QAM 30 days #30 caps 04/01/22 (Linzess) metoclopramide HCl 5 mg tablet 5 mg PO .tidac #90 tabs 04/01/22 (Reglan) peg 3350-electrolytes 236 240 ml PO Q10M 1 day #4,000 mL 05/12/22 gram-22.74 gram-6.74 gram-5.86 gram solution (Golytely) furosemide 20 mg tablet 20 mg PO DAILY #90 tabs 05/23/22 gabapentin 300 mg capsule 300 mg PO BEDTIME 90 days #90 caps 05/23/22 empagliflozin 25 mg tablet 25 mg PO QAM #30 tabs 05/25/22 (Jardiance) methylcellulose (laxative) 500 mg 1,000 mg PO TID #180 tabs 06/10/22 tablet (Fiber Therapy (methylcellulose)) sennosides 8.6 mg tablet (senna) 17.2 mg PO BEDTIME for 06/20/22 constipation #60 tabs simethicone 180 mg capsule 180 mg PO TID #90 caps 06/20/22 sildenafil 50 mg tablet 50 mg PO DAILY PRN sexual activity 06/21/22 #10 tabs Allergies Allergy/AdvReac Type Severity Reaction Status Date / Time No Known Allergies Allergy Verified 05/12/22 10:26 [No Known Allergies*] Review of Systems Review of Systems Constitutional: No Fever, No Chills ENT/Mouth: No Ear Pain, No Hoarseness, No sore throat Eyes: No Eye Pain, No Swelling, No Redness, No Foreign Body Cardiovascular: No Chest Pain, No SOB Respiratory: No Cough, No Dyspnea Gastrointestinal: No Nausea, No Vomiting, No Diarrhea, positive abdominal Pain, positive constipation Genitourinary: No Dysuria, No Hematuria Musculoskeletal: No joint pain, No Myalgias, No Joint Swelling Skin: No Skin lacerations, No rash Neuro: No Weakness, No Numbness, No Paresthesias, No Loss of Consciousness, No Dizziness, No Headache Psych: No Anxiety/Panic, No Depression Heme/Lymph: no easy bruising, no Lymphadenopathy Endocrine: No Polyuria, No Polydipsia Yes all other systems are reviewed and are negative [facility] Past Medical History Attestation statement: The following information was validated with the patient. 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 Melena Morbid obesity Obesity (BMI 30-39.9) Pain in both feet Pure hypercholesterolemia Right hand pain Schizo affective schizophrenia Schizoaffective disorder Type 2 diabetes mellitus with diabetic chronic kidney disease Surgical History History of repair of congenital cleft palate Hx of circumcision Family History Family History Father HTN (hypertension) Mother Diabetes Other Mental health problem Social History Social History Household Members: None Housing: Apartment Do you presently have visiting nurse or other home services: Yes Alcohol intake: current Alcohol intake frequency: does not drink Alcohol type: beer, wine and hard liquor Patient Tobacco Use Status: Former Tobacco user Tobacco use type: Cigarette Cigarettes Per Day: 15 Years Smoked: 8 quit 30 years ago e-Cigarette/Vaping Use: Never Used Second Hand Smoke Exposure: No Advance Directives: No Advance Directives Information Provided: Yes service: No Current occupational status: employed Current occupation: [employer] Cognitive needs: No Hearing needs: No Vision needs: Yes (glasses) Physical Exam ED Vital Signs: Vital Signs - 24 hr 07/09/22 18:11 07/09/22 23:02 Temperature 98.4 F 97.4 F Pulse Rate 95 90 Respiratory Rate 20 18 Blood Pressure 132/67 116/68 Pulse Oximetry 97 99 Oxygen Delivery Method Room Air Room Air BMI result Body Mass Index 31.8 Appearance: Alert. Oriented X3. No acute distress. Eyes: Pupils equal, round and reactive to light. ENT: Pharynx normal. Neck: Normal inspection. Neck supple. CVS: Normal heart rate and rhythm. Pulses normal. Respiratory: No respiratory distress. Breath sounds normal. Abdomen: Soft and nontender. Skin: Skin warm and dry. Normal skin color. Normal skin turgor. Extremities: No lower extremity edema. Gait well-balanced well coordinated. Neuro: No motor deficit. No sensory deficit. Cranial nerves 2-12 intact. Course Course Course Narrative: 61-year-old male presents with abdominal pain and 5 days of constipation. Patient has a significant history of idiopathic chronic constipation and has had multiple presentations to the emergency department for disimpaction and enema. Patient is followed by Gastroenterology. Patient does have history of obstruction, 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 insulin-dependent, schizophrenia, stage 3 kidney disease, and mild cognitive impairment. Will order KUB at this time. KUB indicates constipation without indication of obstruction. Will order enema. 23:00 patient produced a large bowel movement from soapsuds enema. Plan of care is to discharge home. Patient understands any must follow-up with Gastroenterology for chronic idiopathic constipation. Patient verbalized understanding of and agrees to plan of care discharge. MDM - Abdominal Pain Differential Diagnosis Differential diagnosis: Likely abdominal pain, constipation and small bowel obstruction Medical Records Attestation: I reviewed the patient's medical records. Imaging Data KUB: Attestation: I personally reviewed and interpreted this imaging study as follows: Radiologist's impression: EXAMINATION: XR ABDOMEN KUB CLINICAL INDICATION: Constipation? COMPARISON: CT 05/06/2022? TECHNIQUE: AP view of the abdomen. FINDINGS: Large volume of stool in the distal colon and rectosigmoid colon. Gas within nondilated stomach and small bowel. Mild convex left lumbar rotoscoliosis. XR/XR KUB IMPRESSION: Large volume of stool in the distal colon consistent with history of constipation. Discharge Plan Discharge Clinical Impression: Chronic idiopathic constipation Patient Disposition: Home, Self-Care Instructions: Constipation (ED) Additional Instructions: You were evaluated for constipation. Soapsuds enema was successful. Please continue to follow with gastroenterology for chronic constipation. Thank you for choosing this emergency department for evaluation. Please follow-up with primary care physician as needed. Return to the emergency department for any new, concerning, or worsening symptoms. Prescriptions: No Action cholecalciferol (vitamin D3) 25 mcg (1,000 unit) capsule 25 mcg PO DAILY Qty: 90 12RF atorvastatin 10 mg tablet 10 mg PO DAILY Qty: 90 0RF magnesium citrate Solution See Rx Instructions PO DAILY Qty: 300 3RF Rx Instructions: DRINK 1/2 bottle if no BM after 30 mins drink 1/2 and continue until 2 bottles drank or have a BM PO daily; magnesium hydroxide [Milk of Magnesia] 400 mg/5 mL suspension 20 ml PO BEDTIME Qty: 355 6RF lidocaine 5 % adhesive patch,medicated 2 patch topical DAILY PRN (Reason: pain) Qty: 30 1RF Rx Instructions: leave on most painful area for up to 12 hrs lidocaine [Aspercreme (lidocaine)] 4 % adhesive patch,medicated 2 patch topical DAILY PRN (Reason: pain) Qty: 30 1RF bisacodyl [Dulcolax (bisacodyl)] 5 mg tablet,delayed release (DR/EC) See Rx Instructions PO BEDTIME 30 Days Qty: 90 6RF Rx Instructions: 2 tabs qhs and 1 qam PO bedtime; docusate sodium 100 mg capsule 100 mg PO BID 30 Days Qty: 60 6RF (DME) blood-glucose meter [FreeStyle Lite Meter] Kit See Rx Instructions .Route Qty: 1 0RF Rx Instructions: Tests 4 X/day (DME) FreeStyle Lite Strips Strip See Rx Instructions .Route Qty: 100 5RF Rx Instructions: Tests 5X/day (DME) lancets [FreeStyle Lancets] 28 gauge misc See Rx Instructions .Route Qty: 100 4RF Rx Instructions: Tests 5x/day metformin 500 mg tablet 1,000 mg PO BID 90 Days Qty: 360 1RF furosemide 20 mg tablet 20 mg PO DAILY Qty: 90 0RF gabapentin 300 mg capsule 300 mg PO BEDTIME 90 Days Qty: 90 1RF Jardiance 25 mg tablet 25 mg PO QAM Qty: 30 3RF Fiber Therapy (m-cellulose) 500 mg tablet 1,000 mg PO TID Qty: 180 0RF simethicone 180 mg capsule 180 mg PO TID Qty: 90 0RF sennosides [senna] 8.6 mg tablet 17.2 mg PO BEDTIME Qty: 60 0RF sildenafil 50 mg tablet 50 mg PO DAILY PRN (Reason: sexual activity) Qty: 10 0RF Rx Instructions: administer 30 minutes to 4 hours before activity benztropine 0.5 mg tablet 0.5 mg PO BID hydroxyzine pamoate 50 mg capsule 50 mg PO TID PRN (Reason: Anxiety) meclizine 25 mg tablet 25 mg PO QID PRN (Reason: dizziness) Qty: 20 0RF clozapine 100 mg tablet 100 mg PO TID Digestive Advantage Advanced 10 billion cell capsule PO peg 3350-electrolytes [Golytely] 236-22.74-6.74 -5.86 gram recon soln 240 ml PO Q10M 1 Days Qty: 4000 0RF Rx Instructions: until fecal effluent is clear; do not exceed a total volume of 2,000 mL metoclopramide HCl [Reglan] 5 mg tablet 5 mg PO .tidac Qty: 90 6RF Linzess 290 mcg capsule 290 mcg PO QAM 30 Days Qty: 30 6RF Tresiba FlexTouch U-200 200 unit/mL (3 mL) insulin pen 26 unit subcut DAILY 90 Days Qty: 11.7 2RF (DME) pen needle, diabetic [BD Ultra-Fine Orig Pen Needle] 29 gauge x 1/2 needle See Rx Instructions .ROUTE DAILY Qty: 100 3RF Rx Instructions: As directed daily polyethylene glycol 3350 [Miralax] 17 gram powder in packet 17 g PO BID Qty: 30 2RF Referrals: Susy Gordillo, GEORGINA-C [Nurse Practitioner] - 1 week (Idiopathic chronic constipat ion) Interventions: ED Discharge Assessment Last Done: 07/09/22 23:54 Discharge Date/Time: 07/09/22 23:54
--- NOTE | 2022-07-09 22:38 | PC.NURSE ---
pt had successful bm
[2022-07-09 23:02] VITALS: BP 116/68; PULSE 90; RESP 18; TEMP 36.3; O2SAT 99
== END 2022-07-09 23:54 | disposition home or self-care (01) ==
PROVIDERS: Emergency Provider Emergency Medicine; PCP Internal Medicine
DX: K59.04 Chronic idiopathic constipation (principal); E11.22 Type 2 diabetes mellitus with diabetic chronic kidney disease; I12.9 Hypertensive chronic kidney disease with stage 1 through stage 4 chronic kidney disease, or unspecified chronic kidney disease; N18.30 Chronic kidney disease, stage 3 unspecified; E78.00 Pure hypercholesterolemia, unspecified; Z79.4 Long term (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; Z79.02 Long term (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 of antithrombotics/antiplatelets; Z79.899 Other long term (current) drug therapy
CPT/HCPCS: 74018; 99283; 99284

== ENCOUNTER 2022-07-12 08:42 | Outpatient (REF) | payer OTHER, SELFPAY ==
[2022-07-12 09:07] LABS: MANUAL DIFF FLAG NO
[2022-07-12 10:08] LABS: Basophils Percent Auto 0.2 % (0-2); Hemoglobin 15.3 g/dl (14.0-18.0); Imm Gran Abs Auto 0.02 X10*3/uL (0.00-0.03); Imm Gran Pct Auto 0.3 % (0.0-0.4); Lymphocytes Absolute Auto 1.3 X10*3/uL (1.2-4.9); Mean Corpuscular Hemoglobin 29.1 pg (27.0-33.0); Mean Corpuscular Volume 85.6 fL (80.0-98.0); Mean Platelet Volume 10.6 fL (9.4-12.4); Monocytes Absolute Auto 0.5 X10*3/uL (0.1-1.2); Monocytes Percent Auto 7.7 % (2-11); Neutrophils Absolute Auto 4.3 x10*3/uL (2.0-8.3); Neutrophils Percent Auto 69.8 % (45-73); Platelet Count 121 X10*3/uL (160-400); Red Blood Count 5.26 X10*6/uL (4.60-5.80); White Blood Count 6.1 X10*3/uL (4.8-10.8)
[2022-07-12 10:08] LABS: Appearance Urine Clear; Color Urine Yellow; Glucose Urine UA >=1000 mg/dL (Negative); Leukocyte Esterase Urine Negative (Negative); Nitrite Urine Negative (Negative); PH 5.5 (5.0-9.0); UMIC TRIGGER UACC YES; Urine Blood Negative (Negative); Urine Ketones Negative (Negative); Urine Protein Negative (Neg-Trace)
[2022-07-12 10:11] LABS: Bacteria Urine None Seen (None Seen); Hyaline Casts Urine 0-2 /LPF (0-2); RBC Urine 0-2 /HPF (0-2); Squamous Epithelial Cell Urine 0-2 /HPF (0-2); WBC Urine 0-5 /HPF (0-5)
[2022-07-12 10:51] LABS: Creatinine Urine 40.86 mg/dL; Microalbumin Urine < 5.0 mg/L
[2022-07-12 11:15] LABS: TSH reflex Free T4 2.21 uIU/mL (0.32-4.0); Vitamin D 25-OH Total 37.3 ng/mL (>30)
[2022-07-12 11:21] LABS: Alanine Aminotransferase 38 U/L (0-40); Albumin Level 4.2 g/dL (3.5-5.0); Alkaline Phosphatase 127 U/L (39-117); Anion Gap 17 (12-20); Aspartate Amino Transferase 25 U/L (5-37); Bilirubin Total 0.5 mg/dL (0.0-1.0); Blood Urea Nitrogen 15 mg/dL (9-16); Calcium 9.6 mg/dL (8.4-10.2); Carbon Dioxide 20 mmol/L (22-29); Chloride 108 mmol/L (96-108); Cholesterol 143 mg/dL; Estimated Glomerular Filt Rate > 60; Glucose Fasting 157 mg/dL (60-99); HDL Cholesterol 31 mg/dL; LDL Cholesterol Calculated 73 mg/dl; Potassium 4.2 mmol/L (3.3-5.1); Sodium 141 mmol/L (135-145); Triglycerides 197 mg/dL
[2022-07-12 13:11] LABS: Estimated Average Glucose 137 mg/dL; Hemoglobin A1c % 6.4 %
== END 2022-07-12 08:43 | disposition home or self-care (01) ==
LOC: HO.LAB 08:42
PROVIDERS: PCP Internal Medicine; Visit Provider Internal Medicine
DX: I10 Essential (primary) hypertension (principal); E55.9 Vitamin D deficiency, unspecified; E78.00 Pure hypercholesterolemia, unspecified; E11.9 Type 2 diabetes mellitus without complications
CPT/HCPCS: 36415; 80053; 80061; 81001; 82043; 82306; 83036; 84443; 85025

== ENCOUNTER 2022-07-26 08:57 | Outpatient (REF) | payer OTHER, SELFPAY ==
[2022-07-26 09:13] LABS: MANUAL DIFF FLAG NO
[2022-07-26 09:27] LABS: Basophils Percent Auto 0.1 % (0-2); Hematocrit 43.8 % (42.0-52.0); Hemoglobin 15.3 g/dl (14.0-18.0); Imm Gran Abs Auto 0.03 X10*3/uL (0.00-0.03); Imm Gran Pct Auto 0.4 % (0.0-0.4); Lymphocytes Absolute Auto 1.3 X10*3/uL (1.2-4.9); Lymphocytes Percent Auto 17.2 % (20-40); Mean Corpuscular HGB Conc 34.9 g/dl (31.0-36.0); Mean Corpuscular Hemoglobin 29.9 pg (27.0-33.0); Mean Corpuscular Volume 85.7 fL (80.0-98.0); Mean Platelet Volume 10.5 fL (9.4-12.4); Monocytes Absolute Auto 0.6 X10*3/uL (0.1-1.2); Monocytes Percent Auto 7.6 % (2-11); Neut%MD 74.7 %; Neutrophils Absolute Auto 5.8 x10*3/uL (2.0-8.3); Neutrophils Percent Auto 74.7 % (45-73); Platelet Count 118 X10*3/uL (160-400); Red Blood Count 5.11 X10*6/uL (4.60-5.80); Red Cell Distribution Width 13.1 % (11.0-16.0); WBCANC 7.8 X10*3/uL; White Blood Count 7.8 X10*3/uL (4.8-10.8)
== END 2022-07-26 08:58 | disposition home or self-care (01) ==
LOC: HO.LAB 08:57
PROVIDERS: PCP Internal Medicine; Visit Provider Nurse Practitioner Psychiatric/Mental Health
DX: Z79.899 Other long term (current) drug therapy (principal)
CPT/HCPCS: 36415; 85025

== ENCOUNTER 2022-07-26 21:42 | Emergency (ER) | payer OTHER, SELFPAY ==
[2022-07-26 21:48] VITALS: BP 119/60; PULSE 101; RESP 18; TEMP 36.2; O2SAT 96; BMI 34.2
--- NOTE | 2022-07-26 22:23 | PC.NURSE ---
patient ambulated into EM with steady gait. skin pwd, resp even and non labored. speaking in full clear sentences. patient reports that he noticed today that the great toe of both right and left feet are numb, as well as the second toe of the left foot. feet are pwd with positive csm bilaterally, able to palpate pedal pulses. awaiting initial physician vero
--- NOTE | 2022-07-26 23:02 | ED.GENADULT ---
HPI - General Adult General Chief complaint: General Medical Stated complaint: toes are numb Time Seen by Provider: 07/26/22 22:53 Source: patient Mode of arrival: ambulatory Limitations: no limitations History of Present Illness HPI narrative: Patient diabetic on gabapentin for peripheral neuropathy comes here for feeling tingling sensation in his toes which is going on off and on for long time worried about that haencecame here patient did not note that his taking gabapentin for that reason Related Data Home Medications Medication Instructions Recorded Confirmed hydroxyzine pamoate 50 mg capsule 50 mg PO TID PRN Anxiety 09/18/20 04/29/22 benztropine 0.5 mg tablet 0.5 mg PO BID 04/29/22 04/29/22 L.acidoph, paracasei,B. lactis 10 cell PO 05/12/22 billion cell capsule (Digestive Advantage Advanced Probiotic) clozapine 100 mg tablet 100 mg PO TID 05/12/22 Previous Rx's Medication Instructions Recorded cholecalciferol (vitamin D3) 25 25 mcg PO DAILY #90 caps 08/15/21 mcg (1,000 unit) capsule magnesium citrate See Rx Instructions PO DAILY #300 11/04/21 mL magnesium hydroxide 400 mg/5 mL 20 ml PO BEDTIME #355 mL 11/05/21 oral suspension (Milk of Magnesia) lidocaine 5 % topical patch 2 patch topical DAILY PRN pain #30 01/11/22 ea meclizine 25 mg tablet 25 mg PO QID PRN dizziness #20 tabs 01/19/22 lidocaine 4 % topical patch 2 patch topical DAILY PRN pain #30 01/20/22 (Aspercreme (lidocaine)) ea bisacodyl 5 mg tablet,delayed See Rx Instructions PO BEDTIME 30 01/31/22 release (Dulcolax (bisacodyl)) days #90 tabs insulin degludec 200 unit/mL (3 26 unit (0.13 mL) subcut DAILY 90 02/02/22 mL) subcutaneous pen (Tresiba days #11.7 mL FlexTouch U-200 insulin) pen needle, diabetic 29 gauge x #100 ea 02/02/2208/15 (BD Ultra-Fine Original Pen Needle) docusate sodium 100 mg capsule 100 mg PO BID 30 days #60 caps 02/15/22 blood-glucose meter (FreeStyle #1 ea 02/18/22 Lite Meter kit) blood sugar diagnostic (FreeStyle #100 ea 03/13/22 Lite Strips) lancets 28 gauge (FreeStyle #100 ea 03/13/22 Lancets) metformin 500 mg tablet 1,000 mg PO BID 90 days #360 tabs 03/23/22 linaclotide 290 mcg capsule 290 mcg PO QAM 30 days #30 caps 04/01/22 (Linzess) metoclopramide HCl 5 mg tablet 5 mg PO .tidac #90 tabs 04/01/22 (Reglan) peg 3350-electrolytes 236 240 ml PO Q10M 1 day #4,000 mL 05/12/22 gram-22.74 gram-6.74 gram-5.86 gram solution (Golytely) furosemide 20 mg tablet 20 mg PO DAILY #90 tabs 05/23/22 gabapentin 300 mg capsule 300 mg PO BEDTIME 90 days #90 caps 05/23/22 empagliflozin 25 mg tablet 25 mg PO QAM #30 tabs 05/25/22 (Jardiance) simethicone 180 mg capsule 180 mg PO TID #90 caps 06/20/22 sildenafil 50 mg tablet 50 mg PO DAILY PRN sexual activity 06/21/22 #10 tabs peg 3350-electrolytes 236 240 ml PO Q10M 1 day #4,000 mL 07/12/22 gram-22.74 gram-6.74 gram-5.86 gram solution (Golytely) atorvastatin 10 mg tablet 10 mg PO DAILY #90 tabs 07/13/22 methylcellulose (laxative) 500 mg 1,000 mg PO TID #180 tabs 07/13/22 tablet (Fiber Therapy (methylcellulose)) polyethylene glycol 3350 17 gram 17 g PO BID #30 ea 07/13/22 oral powder packet (Miralax) sennosides 8.6 mg tablet (senna) 17.2 mg PO BEDTIME PRN for 07/13/22 constipation #60 tabs Allergies Allergy/AdvReac Type Severity Reaction Status Date / Time No Known Allergies Allergy Verified 05/12/22 10:26 [No Known Allergies*] Review of Systems Review of Systems: Yes all other systems are reviewed and are negative PMFSH Past Medical History Medical History Benign essential hypertension Bowel obstruction Chronic idiopathic constipation Chronic kidney disease (CKD), stage III (moderate) Diabetes type 2, uncontrolled Diabetic polyneuropathy associated with 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 mellitus Dyslipidemia Elevated LFTs Healed wound Hospital discharge follow-up 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 mellitus Knee osteoarthritis Knee pain, bilateral 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 Melena Morbid obesity Obesity (BMI 30-39.9) Pain in both feet Pure hypercholesterolemia Right hand pain Schizo affective schizophrenia Schizoaffective disorder Type 2 diabetes mellitus with diabetic chronic kidney disease Surgical History History of repair of congenital cleft palate Hx of circumcision Family History Family History Father HTN (hypertension) Mother Diabetes Other Mental health problem Social History Social History Household Members: None Housing: Apartment Do you presently have visiting nurse or other home services: Yes Alcohol intake: current Alcohol intake frequency: does not drink Alcohol type: beer, wine and hard liquor Patient Tobacco Use Status: Former Tobacco user Tobacco use type: Cigarette Cigarettes Per Day: 15 Years Smoked: 8 quit 30 years ago e-Cigarette/Vaping Use: Never Used Second Hand Smoke Exposure: No Advance Directives: No Advance Directives Information Provided: No service: No Current occupational status: employed Current occupation: [employer] Cognitive needs: No Hearing needs: No Vision needs: Yes (glasses) Physical Exam ED Vital Signs: Vital Signs - 24 hr 07/26/22 21:48 Temperature 97.2 F Pulse Rate 101 H Respiratory Rate 18 Blood Pressure 119/60 Pulse Oximetry 96 Oxygen Delivery Method Room Air BMI result Body Mass Index 34.2 Appearance: Alert. Oriented X3. No acute distress. Eyes: PERRLA, No Nystagmus ENT: Pharynx normal. Oral Mucosa moist Neck: Normal inspection. Neck supple. CVS: Normal heart rate and rhythm. Pulses normal. Respiratory: No respiratory distress. Equal air entry bilateral, no wheezing/rales/rhonchi Abdomen: Soft and nontender. Bowel sounds are present, no mass palpable, no CVA tenderness Skin: Skin warm and dry. Normal skin color. Normal skin turgor. Extremities: No lower extremity edema. No calf tenderness Neuro: Oriented X 3. No motor deficit. No sensory deficit.No cerebellar signs , cranial nerves II-XII intact Medical Decision Making Medical Decision Making MDM Narrative: Patient neurovascularly intact with chronic diabetic neuropathy advised to continue his gabapentin Discharge Plan Discharge Clinical Impression: Diabetic neuropathy Patient Disposition: Home, Self-Care Instructions: Diabetic Peripheral Neuropathy (ED) Additional Instructions: Continue gabapentin as prescribed by your PCP and follow-up with them Prescriptions: No Action cholecalciferol (vitamin D3) 25 mcg (1,000 unit) capsule 25 mcg PO DAILY Qty: 90 12RF magnesium citrate Solution See Rx Instructions PO DAILY Qty: 300 3RF Rx Instructions: DRINK 1/2 bottle if no BM after 30 mins drink 1/2 and continue until 2 bottles drank or have a BM PO daily; magnesium hydroxide [Milk of Magnesia] 400 mg/5 mL suspension 20 ml PO BEDTIME Qty: 355 6RF lidocaine 5 % adhesive patch,medicated 2 patch topical DAILY PRN (Reason: pain) Qty: 30 1RF Rx Instructions: leave on most painful area for up to 12 hrs lidocaine [Aspercreme (lidocaine)] 4 % adhesive patch,medicated 2 patch topical DAILY PRN (Reason: pain) Qty: 30 1RF bisacodyl [Dulcolax (bisacodyl)] 5 mg tablet,delayed release (DR/EC) See Rx Instructions PO BEDTIME 30 Days Qty: 90 6RF Rx Instructions: 2 tabs qhs and 1 qam PO bedtime; docusate sodium 100 mg capsule 100 mg PO BID 30 Days Qty: 60 6RF (DME) blood-glucose meter [FreeStyle Lite Meter] Kit See Rx Instructions .Route Qty: 1 0RF Rx Instructions: Tests 4 X/day (DME) FreeStyle Lite Strips Strip See Rx Instructions .Route Qty: 100 5RF Rx Instructions: Tests 5X/day (DME) lancets [FreeStyle Lancets] 28 gauge misc See Rx Instructions .Route Qty: 100 4RF Rx Instructions: Tests 5x/day metformin 500 mg tablet 1,000 mg PO BID 90 Days Qty: 360 1RF furosemide 20 mg tablet 20 mg PO DAILY Qty: 90 0RF gabapentin 300 mg capsule 300 mg PO BEDTIME 90 Days Qty: 90 1RF Jardiance 25 mg tablet 25 mg PO QAM Qty: 30 3RF simethicone 180 mg capsule 180 mg PO TID Qty: 90 0RF sildenafil 50 mg tablet 50 mg PO DAILY PRN (Reason: sexual activity) Qty: 10 0RF Rx Instructions: administer 30 minutes to 4 hours before activity peg 3350-electrolytes [Golytely] 236-22.74-6.74 -5.86 gram recon soln 240 ml PO Q10M 1 Days Qty: 4000 0RF Rx Instructions: until fecal effluent is clear; do not exceed a total volume of 2,000 mL atorvastatin 10 mg tablet 10 mg PO DAILY Qty: 90 0RF polyethylene glycol 3350 [Miralax] 17 gram powder in packet 17 g PO BID Qty: 30 2RF sennosides [senna] 8.6 mg tablet 17.2 mg PO BEDTIME PRN (Reason: for constipation) Qty: 60 5RF Fiber Therapy (m-cellulose) 500 mg tablet 1,000 mg PO TID Qty: 180 5RF benztropine 0.5 mg tablet 0.5 mg PO BID hydroxyzine pamoate 50 mg capsule 50 mg PO TID PRN (Reason: Anxiety) meclizine 25 mg tablet 25 mg PO QID PRN (Reason: dizziness) Qty: 20 0RF clozapine 100 mg tablet 100 mg PO TID Digestive Advantage Advanced 10 billion cell capsule PO peg 3350-electrolytes [Golytely] 236-22.74-6.74 -5.86 gram recon soln 240 ml PO Q10M 1 Days Qty: 4000 0RF Rx Instructions: until fecal effluent is clear; do not exceed a total volume of 2,000 mL metoclopramide HCl [Reglan] 5 mg tablet 5 mg PO .tidac Qty: 90 6RF Linzess 290 mcg capsule 290 mcg PO QAM 30 Days Qty: 30 6RF Tresiba FlexTouch U-200 200 unit/mL (3 mL) insulin pen 26 unit subcut DAILY 90 Days Qty: 11.7 2RF (DME) pen needle, diabetic [BD Ultra-Fine Orig Pen Needle] 29 gauge x 1/2 needle See Rx Instructions .ROUTE DAILY Qty: 100 3RF Rx Instructions: As directed daily Interventions: ED Discharge Assessment Last Done: 07/26/22 23:15 Discharge Date/Time: 07/26/22 23:15
== END 2022-07-26 23:15 | disposition home or self-care (01) ==
PROVIDERS: Emergency Provider Internal Medicine; PCP Internal Medicine
DX: E11.40 Type 2 diabetes mellitus with diabetic neuropathy, unspecified (principal); Z87.891 Personal history of nicotine dependence; Z79.899 Other long term (current) drug therapy
CPT/HCPCS: 99282

== ENCOUNTER 2022-08-05 09:28 | Emergency (ER) | payer OTHER, SELFPAY ==
[2022-08-05 09:34] VITALS: BP 119/76; PULSE 75; RESP 18; TEMP 36.4; O2SAT 95; BMI 36.0
--- NOTE | 2022-08-05 10:40 | ED.ABDPAIN ---
HPI - Abdominal Pain General Chief Complaint: Abdominal Pain Stated Complaint: constipated Time Seen by Provider: 08/05/22 10:01 Source: patient Mode of arrival: ambulatory History of Present Illness HPI narrative: 61-year-old male who suffers from constipation and states that he takes MiraLax daily and stated that while he was at work he felt abdominal cramping but then since that time has had multiple bowel movements, nonbloody, which she states is somewhat regular for him but he has continued to have abdominal cramping he otherwise denies any nausea, vomiting, surgical history within the abdomen, fever, chills. Related Data Home Medications Medication Instructions Recorded Confirmed hydroxyzine pamoate 50 mg capsule 50 mg PO TID PRN Anxiety 09/18/20 04/29/22 benztropine 0.5 mg tablet 0.5 mg PO BID 04/29/22 04/29/22 L.acidoph, paracasei,B. lactis 10 cell PO 05/12/22 billion cell capsule (Digestive Advantage Advanced Probiotic) clozapine 100 mg tablet 100 mg PO TID 05/12/22 Previous Rx's Medication Instructions Recorded cholecalciferol (vitamin D3) 25 25 mcg PO DAILY #90 caps 08/15/21 mcg (1,000 unit) capsule magnesium citrate See Rx Instructions PO DAILY #300 11/04/21 mL magnesium hydroxide 400 mg/5 mL 20 ml PO BEDTIME #355 mL 11/05/21 oral suspension (Milk of Magnesia) lidocaine 5 % topical patch 2 patch topical DAILY PRN pain #30 01/11/22 ea meclizine 25 mg tablet 25 mg PO QID PRN dizziness #20 tabs 01/19/22 lidocaine 4 % topical patch 2 patch topical DAILY PRN pain #30 01/20/22 (Aspercreme (lidocaine)) ea bisacodyl 5 mg tablet,delayed See Rx Instructions PO BEDTIME 30 01/31/22 release (Dulcolax (bisacodyl)) days #90 tabs insulin degludec 200 unit/mL (3 26 unit (0.13 mL) subcut DAILY 90 02/02/22 mL) subcutaneous pen (Tresiba days #11.7 mL FlexTouch U-200 insulin) pen needle, diabetic 29 gauge x #100 ea 02/02/2208/15 (BD Ultra-Fine Original Pen Needle) docusate sodium 100 mg capsule 100 mg PO BID 30 days #60 caps 02/15/22 blood-glucose meter (FreeStyle #1 ea 02/18/22 Lite Meter kit) blood sugar diagnostic (FreeStyle #100 ea 03/13/22 Lite Strips) lancets 28 gauge (FreeStyle #100 ea 03/13/22 Lancets) metformin 500 mg tablet 1,000 mg PO BID 90 days #360 tabs 03/23/22 metoclopramide HCl 5 mg tablet 5 mg PO .tidac #90 tabs 04/01/22 (Reglan) peg 3350-electrolytes 236 240 ml PO Q10M 1 day #4,000 mL 05/12/22 gram-22.74 gram-6.74 gram-5.86 gram solution (Golytely) furosemide 20 mg tablet 20 mg PO DAILY #90 tabs 05/23/22 gabapentin 300 mg capsule 300 mg PO BEDTIME 90 days #90 caps 05/23/22 empagliflozin 25 mg tablet 25 mg PO QAM #30 tabs 05/25/22 (Jardiance) sildenafil 50 mg tablet 50 mg PO DAILY PRN sexual activity 06/21/22 #10 tabs peg 3350-electrolytes 236 240 ml PO Q10M 1 day #4,000 mL 07/12/22 gram-22.74 gram-6.74 gram-5.86 gram solution (Golytely) atorvastatin 10 mg tablet 10 mg PO DAILY #90 tabs 07/13/22 methylcellulose (laxative) 500 mg 1,000 mg PO TID #180 tabs 07/13/22 tablet (Fiber Therapy (methylcellulose)) polyethylene glycol 3350 17 gram 17 g PO BID #30 ea 07/13/22 oral powder packet (Miralax) sennosides 8.6 mg tablet (senna) 17.2 mg PO BEDTIME PRN for 07/13/22 constipation #60 tabs linaclotide 290 mcg capsule 290 mcg PO QAM 30 days #30 caps 08/02/22 (Linzess) simethicone 180 mg capsule 180 mg PO TID #90 caps 08/02/22 Allergies Allergy/AdvReac Type Severity Reaction Status Date / Time No Known Allergies Allergy Verified 05/12/22 10:26 [No Known Allergies*] Review of Systems Review of Systems Pertinent positives and negatives as stated in HPI 10 point review of systems otherwise negative. [facility] Past Medical History Source: nursing notes reviewed Medical History Benign essential hypertension Bowel obstruction Chronic idiopathic constipation Chronic kidney disease (CKD), stage III (moderate) Diabetes type 2, uncontrolled Diabetic polyneuropathy associated with 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 mellitus Dyslipidemia Elevated LFTs Healed wound Hospital discharge follow-up 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 mellitus Knee osteoarthritis Knee pain, bilateral longterm (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 Melena Morbid obesity Obesity (BMI 30-39.9) Pain in both feet Pure hypercholesterolemia Right hand pain Schizo affective schizophrenia Schizoaffective disorder Type 2 diabetes mellitus with diabetic chronic kidney disease Surgical History History of repair of congenital cleft palate Hx of circumcision Family History Family History Father HTN (hypertension) Mother Diabetes Other Mental health problem Social History Social History Household Members: None Housing: Apartment Do you presently have visiting nurse or other home services: Yes Alcohol intake: current Alcohol intake frequency: does not drink Alcohol type: beer, wine and hard liquor Patient Tobacco Use Status: Former Tobacco user Tobacco use type: Cigarette Cigarettes Per Day: 15 Years Smoked: 8 quit 30 years ago e-Cigarette/Vaping Use: Never Used Second Hand Smoke Exposure: No Advance Directives: No service: No Current occupational status: employed Current occupation: [employer] Cognitive needs: No Hearing needs: No Vision needs: Yes (glasses) Physical Exam ED Vital Signs: Vital Signs - 24 hr 08/05/22 09:34 Temperature 97.6 F Pulse Rate 75 Respiratory Rate 18 Blood Pressure 119/76 Pulse Oximetry 95 Oxygen Delivery Method Room Air BMI result Body Mass Index 36.0 VITAL SIGNS: Reviewed. GENERAL: Well developed, well nourished, in no acute distress. HEAD: Normocephalic/atraumatic EYES: PERRLA, EOMI EARS: Ext canals without abnormality OROPHARYNX: no oral lesions noted, posterior pharynx clear NECK: Supple, no adenopathy LUNGS: Normal breath sounds. No adventitious sounds or accessory muscle use. SpO2<95> CARDIOVASCULAR: Regular rate and rhythm without noted murmurs, no JVD or lower extremity edema. ABDOMEN: Soft, non-tender, non-distended with bowel sounds. MUSCULOSKELETAL: No tenderness, deformities, or effusions noted on gross inspection. EXTREMITIES: No cyanosis, clubbing or edema. SKIN: Inspection of the skin reveals no rashes NEUROLOGIC: Alert and oriented x 4. Strength and sensation to light touch were grossly intact x 4. Medical Decision Making Medical Decision Making [facility] Narrative: 61-year-old male with history and clinical presentation mildly suggestive of SBO, possible mild case of diverticulitis although patient has no reported nausea, vomiting, fever or chills he seems to be a somewhat poor historian. Initially, I was going to obtain a KUB but given review his old records which demonstrate several comorbidities IA will pursue lab work. Differential Diagnosis Differential Diagnoses: The differential diagnosis associated with the presentation includes Diverticulitis, SBO/partial SBO, appendicitis, UTI Lab Data [facility] Lab Attestation statement: I reviewed the patient's lab results. Interpreted the patient's lab results as not being significant when compared to prior, there is no evidence of DKA/HHS, and suspect that the lactic acid of 2.2 is secondary to medications such as metformin. Otherwise, there is no leukocytosis or complaints that would suggest hypoxia, there may be some mild dehydration but patient is neither nauseous nor vomiting and will encourage fluid hydration. Result Diagrams: 08/05/22 10:58 08/05/22 10:58 Labs: Lab Results 08/05/22 08/05/22 08/05/22 Range/Units 10:48 10:58 10:58 WBC 7.6 (4.8-10.8) X10*3/uL RBC 5.23 (4.60-5.80) X10*6/uL Hgb 15.4 (14.0-18.0) g/dl Hct 45.0 (42.0-52.0) % MCV 86.0 (80.0-98.0) fL MCH 29.4 (27.0-33.0) pg MCHC 34.2 (31.0-36.0) g/dl RDW 13.1 (11.0-16.0) % Plt Count 120 L (160-400) X10*3/uL MPV 10.1 (9.4-12.4) fL Immature Gran % (Auto) 0.4 (0.0-0.4) % Neut % (Auto) 78.5 H (45-73) % Lymph % (Auto) 13.9 L (20-40) % Randall % (Auto) 7.1 (2-11) % Eos % (Auto) 0.0 (0-4) % Baso % (Auto) 0.1 (0-2) % Lymph # (Auto) 1.1 L (1.2-4.9) X10*3/uL Randall # (Auto) 0.5 (0.1-1.2) X10*3/uL Eos # (Auto) 0.0 (0.0-0.4) X10*3/uL Baso # (Auto) 0.0 (0.0-0.2) X10*3/uL Abs Immat Gran (auto) 0.03 (0.00-0.03) X10*3/uL Absolute Neuts (auto) 6.0 (2.0-8.3) x10*3/uL Absolute Nucleated RBC 0.000 (0.0-0.012) X10*3/uL Nucleated RBC % (auto) 0.0 (0.0-0.2) /100WBC Sodium 140 (135-145) mmol/L Potassium 4.5 (3.3-5.1) mmol/L Chloride 108 (96-108) mmol/L Carbon Dioxide 22 (22-29) mmol/L Anion Gap 15 (12-20) BUN 21 H (9-16) mg/dL Creatinine 1.20 (0.5-1.4) mg/dL Estim Creat Clear Calc 91.4 Estimated GFR > 60 POC Glucose 195 H (60-115) mg/dL Random Glucose 190 H (60-115) mg/dL Lactic Acid (0.5-2.0) mmol/L Calcium 9.5 (8.4-10.2) mg/dL Total Bilirubin 0.4 (0.0-1.0) mg/dL AST 24 (5-37) U/L ALT 38 (0-40) U/L Alkaline Phosphatase 136 H (39-117) U/L Total Protein 7.0 (6.5-8.0) g/dL Albumin 4.3 (3.5-5.0) g/dL COVID-19 (JEFFREY) (Negative) COVID-19 Clin Com Influenza Type A (STAR) (Negative) Influenza Type B (STAR) (Negative) Influenza A & B Note 08/05/22 08/05/22 08/05/22 Range/Units 10:58 10:58 10:58 WBC (4.8-10.8) X10*3/uL RBC (4.60-5.80) X10*6/uL Hgb (14.0-18.0) g/dl Hct (42.0-52.0) % MCV (80.0-98.0) fL MCH (27.0-33.0) pg MCHC (31.0-36.0) g/dl RDW (11.0-16.0) % Plt Count (160-400) X10*3/uL MPV (9.4-12.4) fL Immature Gran % (Auto) (0.0-0.4) % Neut % (Auto) (45-73) % Lymph % (Auto) (20-40) % Randall % (Auto) (2-11) % Eos % (Auto) (0-4) % Baso % (Auto) (0-2) % Lymph # (Auto) (1.2-4.9) X10*3/uL Randall # (Auto) (0.1-1.2) X10*3/uL Eos # (Auto) (0.0-0.4) X10*3/uL Baso # (Auto) (0.0-0.2) X10*3/uL Abs Immat Gran (auto) (0.00-0.03) X10*3/uL Absolute Neuts (auto) (2.0-8.3) x10*3/uL Absolute Nucleated RBC (0.0-0.012) X10*3/uL Nucleated RBC % (auto) (0.0-0.2) /100WBC Sodium (135-145) mmol/L Potassium (3.3-5.1) mmol/L Chloride (96-108) mmol/L Carbon Dioxide (22-29) mmol/L Anion Gap (12-20) BUN (9-16) mg/dL Creatinine (0.5-1.4) mg/dL Estim Creat Clear Calc Estimated GFR POC Glucose (60-115) mg/dL Random Glucose (60-115) mg/dL Lactic Acid 2.2 H* (0.5-2.0) mmol/L Calcium (8.4-10.2) mg/dL Total Bilirubin (0.0-1.0) mg/dL AST (5-37) U/L ALT (0-40) U/L Alkaline Phosphatase (39-117) U/L Total Protein (6.5-8.0) g/dL Albumin (3.5-5.0) g/dL COVID-19 (JEFFREY) Negative (Negative) COVID-19 Clin Com See Note Influenza Type A (STAR) Negative (Negative) Influenza Type B (STAR) Negative (Negative) Influenza A & B Note See Note Radiology Impression Radiologist Impression: My interpretation of the CT scan agrees with radiology impression of no acute findings within the abdomen or pelvis. External Record Review External record reviewed: Outpatient record and Prior outpatient labs Chronic Conditions Patient?s care impacted by: Diabetes and Hypertension Discharge Plan Discharge Clinical Impression: Diarrhea Patient Disposition: Home, Self-Care Instructions: Nutrition Tips for Relief of Diarrhea (ED), Acute Diarrhea (ED) Additional Instructions: 1. Resume all home medications as prescribed. 2. I recommend that you continue to stay well hydrated and follow-up with your primary care provider by calling the office on Monday morning to setting up an appointment for re-evaluation and further outpatient management. Return to the ER for worsening symptoms. Prescriptions: No Action cholecalciferol (vitamin D3) 25 mcg (1,000 unit) capsule 25 mcg PO DAILY Qty: 90 12RF magnesium citrate Solution See Rx Instructions PO DAILY Qty: 300 3RF Rx Instructions: DRINK 1/2 bottle if no BM after 30 mins drink 1/2 and continue until 2 bottles drank or have a BM PO daily; magnesium hydroxide [Milk of Magnesia] 400 mg/5 mL suspension 20 ml PO BEDTIME Qty: 355 6RF lidocaine 5 % adhesive patch,medicated 2 patch topical DAILY PRN (Reason: pain) Qty: 30 1RF Rx Instructions: leave on most painful area for up to 12 hrs lidocaine [Aspercreme (lidocaine)] 4 % adhesive patch,medicated 2 patch topical DAILY PRN (Reason: pain) Qty: 30 1RF bisacodyl [Dulcolax (bisacodyl)] 5 mg tablet,delayed release (DR/EC) See Rx Instructions PO BEDTIME 30 Days Qty: 90 6RF Rx Instructions: 2 tabs qhs and 1 qam PO bedtime; docusate sodium 100 mg capsule 100 mg PO BID 30 Days Qty: 60 6RF (DME) blood-glucose meter [FreeStyle Lite Meter] Kit See Rx Instructions .Route Qty: 1 0RF Rx Instructions: Tests 4 X/day (DME) FreeStyle Lite Strips Strip See Rx Instructions .Route Qty: 100 5RF Rx Instructions: Tests 5X/day (DME) lancets [FreeStyle Lancets] 28 gauge misc See Rx Instructions .Route Qty: 100 4RF Rx Instructions: Tests 5x/day metformin 500 mg tablet 1,000 mg PO BID 90 Days Qty: 360 1RF furosemide 20 mg tablet 20 mg PO DAILY Qty: 90 0RF gabapentin 300 mg capsule 300 mg PO BEDTIME 90 Days Qty: 90 1RF Jardiance 25 mg tablet 25 mg PO QAM Qty: 30 3RF sildenafil 50 mg tablet 50 mg PO DAILY PRN (Reason: sexual activity) Qty: 10 0RF Rx Instructions: administer 30 minutes to 4 hours before activity peg 3350-electrolytes [Golytely] 236-22.74-6.74 -5.86 gram recon soln 240 ml PO Q10M 1 Days Qty: 4000 0RF Rx Instructions: until fecal effluent is clear; do not exceed a total volume of 2,000 mL atorvastatin 10 mg tablet 10 mg PO DAILY Qty: 90 0RF polyethylene glycol 3350 [Miralax] 17 gram powder in packet 17 g PO BID Qty: 30 2RF sennosides [senna] 8.6 mg tablet 17.2 mg PO BEDTIME PRN (Reason: for constipation) Qty: 60 5RF Fiber Therapy (m-cellulose) 500 mg tablet 1,000 mg PO TID Qty: 180 5RF simethicone 180 mg capsule 180 mg PO TID Qty: 90 2RF Linzess 290 mcg capsule 290 mcg PO QAM 30 Days Qty: 30 6RF benztropine 0.5 mg tablet 0.5 mg PO BID hydroxyzine pamoate 50 mg capsule 50 mg PO TID PRN (Reason: Anxiety) meclizine 25 mg tablet 25 mg PO QID PRN (Reason: dizziness) Qty: 20 0RF clozapine 100 mg tablet 100 mg PO TID Digestive Advantage Advanced 10 billion cell capsule PO peg 3350-electrolytes [Golytely] 236-22.74-6.74 -5.86 gram recon soln 240 ml PO Q10M 1 Days Qty: 4000 0RF Rx Instructions: until fecal effluent is clear; do not exceed a total volume of 2,000 mL metoclopramide HCl [Reglan] 5 mg tablet 5 mg PO .tidac Qty: 90 6RF Tresiba FlexTouch U-200 200 unit/mL (3 mL) insulin pen 26 unit subcut DAILY 90 Days Qty: 11.7 2RF (DME) pen needle, diabetic [BD Ultra-Fine Orig Pen Needle] 29 gauge x 1/2 needle See Rx Instructions .ROUTE DAILY Qty: 100 3RF Rx Instructions: As directed daily Referrals: Luis Manuel Garcia MD [Primary Care Provider] -
[2022-08-05 11:04] LABS: MANUAL DIFF FLAG NO
[2022-08-05 11:07] LABS: Basophils Percent Auto 0.1 % (0-2); Hemoglobin 15.4 g/dl (14.0-18.0); Imm Gran Abs Auto 0.03 X10*3/uL (0.00-0.03); Imm Gran Pct Auto 0.4 % (0.0-0.4); Lymphocytes Absolute Auto 1.1 X10*3/uL (1.2-4.9); Lymphocytes Percent Auto 13.9 % (20-40); Mean Corpuscular HGB Conc 34.2 g/dl (31.0-36.0); Mean Corpuscular Hemoglobin 29.4 pg (27.0-33.0); Mean Platelet Volume 10.1 fL (9.4-12.4); Monocytes Absolute Auto 0.5 X10*3/uL (0.1-1.2); Monocytes Percent Auto 7.1 % (2-11); Neutrophils Percent Auto 78.5 % (45-73); Platelet Count 120 X10*3/uL (160-400); Red Blood Count 5.23 X10*6/uL (4.60-5.80); Red Cell Distribution Width 13.1 % (11.0-16.0); White Blood Count 7.6 X10*3/uL (4.8-10.8)
[2022-08-05 11:28] LABS: Lactic Acid 2.2 mmol/L (0.5-2.0)
[2022-08-05 11:29] LABS: Alanine Aminotransferase 38 U/L (0-40); Albumin Level 4.3 g/dL (3.5-5.0); Alkaline Phosphatase 136 U/L (39-117); Anion Gap 15 (12-20); Aspartate Amino Transferase 24 U/L (5-37); Bilirubin Total 0.4 mg/dL (0.0-1.0); Blood Urea Nitrogen 21 mg/dL (9-16); COVID-19 Test Negative (Negative); Calcium 9.5 mg/dL (8.4-10.2); Carbon Dioxide 22 mmol/L (22-29); Chloride 108 mmol/L (96-108); Creatinine Clr Calc Pharmacy 91.4; Estimated Glomerular Filt Rate > 60; Glucose Random 190 mg/dL (60-115); IDNOW Serial# 16C4AD1C; IDNOW Serial# BCCEAD1C; Influenza A Negative (Negative); Influenza B2 Negative (Negative); Potassium 4.5 mmol/L (3.3-5.1); Sodium 140 mmol/L (135-145)
[2022-08-05 13:53] LABS: ~Lactic Acid-LAB USE ONLY 1.9 mmol/L (0.5-2.0)
--- NOTE | 2022-08-05 13:56 | PC.NURSE ---
pt a&ox3, denies any pain at this time, discussed following up w PCP and continuing to take at home meds for stool softening.
== END 2022-08-05 13:57 | disposition home or self-care (01) ==
PROVIDERS: Emergency Provider Student in an Organized Health Care Education/Training Program; PCP Internal Medicine
DX: R10.13 Epigastric pain (principal); K59.00 Constipation, unspecified; R19.7 Diarrhea, unspecified; Z20.822 Contact with and (suspected) exposure to COVID-19; Z79.899 Other long term (current) drug therapy
CPT/HCPCS: 36415; 74176; 80053; 82947; 83605; 85025; 87502; 87635; 99282; 99284

== ENCOUNTER → 2022-08-12 09:41 | Outpatient (BNVA) | payer OTHER, SELFPAY | PROVIDERS: PCP Internal Medicine; Visit Provider Nurse Practitioner | DX: Z01.818 Encounter for other preprocedural examination (principal); Z12.11 Encounter for screening for malignant neoplasm of colon; K59.04 Chronic idiopathic constipation; K30 Functional dyspepsia | CPT/HCPCS: 99212 ==

== ENCOUNTER 2022-08-24 10:31 | Outpatient (REF) | payer OTHER, SELFPAY ==
[2022-08-24 10:55] LABS: MANUAL DIFF FLAG NO
[2022-08-24 11:17] LABS: Basophils Percent Auto 0.1 % (0-2); Hematocrit 45.7 % (42.0-52.0); Hemoglobin 15.7 g/dl (14.0-18.0); Imm Gran Abs Auto 0.03 X10*3/uL (0.00-0.03); Imm Gran Pct Auto 0.4 % (0.0-0.4); Lymphocytes Absolute Auto 1.3 X10*3/uL (1.2-4.9); Lymphocytes Percent Auto 18.2 % (20-40); Mean Corpuscular HGB Conc 34.4 g/dl (31.0-36.0); Mean Corpuscular Hemoglobin 29.2 pg (27.0-33.0); Mean Corpuscular Volume 84.9 fL (80.0-98.0); Mean Platelet Volume 10.7 fL (9.4-12.4); Monocytes Absolute Auto 0.5 X10*3/uL (0.1-1.2); Monocytes Percent Auto 7.1 % (2-11); Neutrophils Absolute Auto 5.3 x10*3/uL (2.0-8.3); Neutrophils Percent Auto 74.2 % (45-73); Platelet Count 114 X10*3/uL (160-400); Red Blood Count 5.38 X10*6/uL (4.60-5.80); Red Cell Distribution Width 13.1 % (11.0-16.0); White Blood Count 7.1 X10*3/uL (4.8-10.8)
== END 2022-08-24 10:32 | disposition home or self-care (01) ==
LOC: HO.LABR 10:31
PROVIDERS: Visit Provider Nurse Practitioner Psychiatric/Mental Health
DX: Z79.899 Other long term (current) drug therapy (principal)
CPT/HCPCS: 36415; 85025

== ENCOUNTER 2022-09-21 08:46 | Outpatient (REF) | payer OTHER, SELFPAY ==
[2022-09-21 08:56] LABS: MANUAL DIFF FLAG NO
[2022-09-21 09:29] LABS: Basophils Percent Auto 0.1 % (0-2); Hematocrit 45.5 % (42.0-52.0); Hemoglobin 15.9 g/dl (14.0-18.0); Imm Gran Abs Auto 0.03 X10*3/uL (0.00-0.03); Imm Gran Pct Auto 0.4 % (0.0-0.4); Lymphocytes Absolute Auto 1.4 X10*3/uL (1.2-4.9); Lymphocytes Percent Auto 20.3 % (20-40); Mean Corpuscular HGB Conc 34.9 g/dl (31.0-36.0); Mean Corpuscular Hemoglobin 29.3 pg (27.0-33.0); Mean Corpuscular Volume 83.9 fL (80.0-98.0); Mean Platelet Volume 10.5 fL (9.4-12.4); Monocytes Absolute Auto 0.5 X10*3/uL (0.1-1.2); Monocytes Percent Auto 7.1 % (2-11); Neut%MD 72.1 %; Neutrophils Percent Auto 72.1 % (45-73); Platelet Count 117 X10*3/uL (160-400); Red Blood Count 5.42 X10*6/uL (4.60-5.80); WBCANC 6.9 X10*3/uL; White Blood Count 6.9 X10*3/uL (4.8-10.8)
== END 2022-09-21 08:47 | disposition home or self-care (01) ==
LOC: HO.LABR 08:46
PROVIDERS: PCP Internal Medicine; Visit Provider Nurse Practitioner Psychiatric/Mental Health
DX: Z79.899 Other long term (current) drug therapy (principal)
CPT/HCPCS: 36415; 85025

== ENCOUNTER → 2022-10-07 08:25 | Outpatient (BNVA) | payer OTHER, SELFPAY | PROVIDERS: PCP Internal Medicine; Visit Provider Nurse Practitioner | DX: K59.04 Chronic idiopathic constipation (principal); K30 Functional dyspepsia; F25.9 Schizoaffective disorder, unspecified; E11.42 Type 2 diabetes mellitus with diabetic polyneuropathy | CPT/HCPCS: 99212 ==

== ENCOUNTER 2022-10-17 09:23 | Outpatient (REF) | payer OTHER, SELFPAY ==
[2022-10-17 09:37] LABS: MANUAL DIFF FLAG NO
[2022-10-17 09:44] LABS: Hematocrit 44.9 % (42.0-52.0); Hemoglobin 15.8 g/dl (14.0-18.0); Imm Gran Abs Auto 0.03 X10*3/uL (0.00-0.03); Imm Gran Pct Auto 0.4 % (0.0-0.4); Lymphocytes Absolute Auto 1.1 X10*3/uL (1.2-4.9); Mean Corpuscular HGB Conc 35.2 g/dl (31.0-36.0); Mean Corpuscular Hemoglobin 29.9 pg (27.0-33.0); Mean Platelet Volume 10.4 fL (9.4-12.4); Monocytes Absolute Auto 0.6 X10*3/uL (0.1-1.2); Monocytes Percent Auto 7.8 % (2-11); Neutrophils Absolute Auto 5.4 x10*3/uL (2.0-8.3); Neutrophils Percent Auto 76.8 % (45-73); Platelet Count 108 X10*3/uL (160-400); Red Blood Count 5.28 X10*6/uL (4.60-5.80)
== END 2022-10-17 09:24 | disposition home or self-care (01) ==
LOC: HO.LABR 09:23
PROVIDERS: PCP Internal Medicine; Visit Provider Nurse Practitioner Psychiatric/Mental Health
DX: Z79.899 Other long term (current) drug therapy (principal)
CPT/HCPCS: 36415; 85025

== ENCOUNTER 2022-10-19 16:42 | Emergency (ER) | payer OTHER, SELFPAY ==
--- NOTE | ~2022-10-19 | XR_ITS ---
EXAMINATION: XR ABDOMEN KUB CLINICAL INDICATION: Constipation COMPARISON: None TECHNIQUE: AP view of the abdomen. FINDINGS: There is scattered stool and gas seen in colon without significant distention. The small bowel loops are normal caliber. Appendix is not visualized. No gross bony abnormality seen. XR/XR KUB IMPRESSION: Mild constipation.
[2022-10-19 18:05] VITALS: BP 148/85; PULSE 84; RESP 16; TEMP 35.8; O2SAT 97; BMI 36.3
--- NOTE | 2022-10-19 18:09 | ED.GENADULT ---
HPI - General Adult General Chief complaint: General Medical <LEXIE Brown - Last Filed: 10/19/22 18:11> Stated complaint: Constipation <LEXIE Brown - Last Filed: 10/19/22 18:11> Time Seen by Provider: 10/19/22 18:20 <LEXIE Brown - Last Filed: 10/19/22 18:11> Source: patient <Efren Ferrari DO - Last Filed: 10/19/22 19:01> Mode of arrival: ambulatory <Efren Ferrari DO - Last Filed: 10/19/22 19:01> Limitations: no limitations <Efren Ferrari DO - Last Filed: 10/19/22 19:01> History of Present Illness HPI narrative: 62-year-old male with chronic constipation multiple ED visits for the same presents to emergency department complaining of constipation he states he has not had a bowel movement for 1 week. Patient states he has been on milk of magnesia and switches back to [facility] I called was having too many stools and having issues with diarrhea and now again is having constipation. Denies any fevers or chills he states he has no abdominal pain he has been eating and drinking normally. <Efren Ferrari DO - Last Filed: 10/19/22 19:01> Onset (ago): year(s) <Efren Ferrari DO - Last Filed: 10/19/22 19:01> Related Data Home medications: Home Medications Medication Instructions Recorded Confirmed hydroxyzine pamoate 50 mg capsule 50 mg PO TID PRN Anxiety 09/18/20 08/11/22 benztropine 0.5 mg tablet 0.5 mg PO BID 04/29/22 08/11/22 L.acidoph, paracasei,B. lactis 10 cell PO 05/12/22 08/11/22 billion cell capsule (Digestive Advantage Advanced Probiotic) clozapine 100 mg tablet 100 mg PO TID 05/12/22 08/11/22 Previous Rx's Medication Instructions Recorded cholecalciferol (vitamin D3) 25 25 mcg PO DAILY #90 caps 08/15/21 mcg (1,000 unit) capsule magnesium citrate See Rx Instructions PO DAILY #300 11/04/21 mL magnesium hydroxide 400 mg/5 mL 20 ml PO BEDTIME #355 mL 11/05/21 oral suspension (Milk of Magnesia) lidocaine 5 % topical patch 2 patch topical DAILY PRN pain #30 01/11/22 ea meclizine 25 mg tablet 25 mg PO QID PRN dizziness #20 tabs 01/19/22 lidocaine 4 % topical patch 2 patch topical DAILY PRN pain #30 01/20/22 (Aspercreme (lidocaine)) ea insulin degludec 200 unit/mL (3 26 unit (0.13 mL) subcut DAILY 90 02/02/22 mL) subcutaneous pen ( #11.7 mL FlexTouch U-200 insulin) pen needle, diabetic 29 gauge x #100 ea 02/02/2208/15 (BD Ultra-Fine Original Pen Needle) blood-glucose meter (FreeStyle #1 ea 02/18/22 Lite Meter kit) blood sugar diagnostic (FreeStyle #100 ea 03/13/22 Lite Strips) lancets 28 gauge (FreeStyle #100 ea 03/13/22 Lancets) empagliflozin 25 mg tablet 25 mg PO QAM #30 tabs 05/25/22 (Jardiance) peg 3350-electrolytes 236 240 ml PO Q10M 1 day #4,000 mL 07/12/22 gram-22.74 gram-6.74 gram-5.86 gram solution (Golytely) methylcellulose (laxative) 500 mg 1,000 mg PO TID #180 tabs 07/13/22 tablet (Fiber Therapy (methylcellulose)) sennosides 8.6 mg tablet (senna) 17.2 mg PO BEDTIME PRN for 07/13/22 constipation #60 tabs furosemide 20 mg tablet 20 mg PO DAILY #90 tabs 08/11/22 gabapentin 300 mg capsule 300 mg PO BEDTIME 90 days #90 caps 08/11/22 sildenafil 50 mg tablet 50 mg PO DAILY PRN sexual activity 08/11/22 #10 tabs bisacodyl 5 mg tablet,delayed See Rx Instructions PO BEDTIME 30 08/12/22 release (Dulcolax (bisacodyl)) days #90 tabs linaclotide 290 mcg capsule 290 mcg PO QAM 30 days #30 caps 08/12/22 (Linzess) metoclopramide HCl 5 mg tablet 5 mg PO .tidac #90 tabs 08/12/22 (Reglan) polyethylene glycol 3350 17 gram 17 g PO BID #30 ea 08/12/22 oral powder packet (Miralax) simethicone 180 mg capsule 180 mg PO TID #90 caps 08/12/22 metformin 500 mg tablet 1,000 mg PO BID 90 days #360 tabs 09/08/22 docusate sodium 100 mg capsule 100 mg PO BID #60 caps 09/13/22 atorvastatin 10 mg tablet 10 mg PO DAILY #90 tabs 10/03/22 <LEXIE Brown - Last Filed: 10/19/22 18:11> Allergies/adverse reactions: Allergies Allergy/AdvReac Type Severity Reaction Status Date / Time No Known Allergies Allergy Verified 10/07/22 08:48 [No Known Allergies*] <LEXIE Brown - Last Filed: 10/19/22 18:11> Review of Systems Review of Systems: Review of systems: General: Patient denies any fever chills recent illness or falls Musculoskeletal: Denies back pain or body aches or other injuries HEENT: denies headache, runny nose, ear pain Respiratory: denies shortness of breath, cough Cardiovascular: no chest pain or palpitations : denies dysuria, frequency Abdomen: Constipation no nausea vomiting denies abdominal pain Extremities: no swelling, no pain Skin: no diaphoresis <Efren Ferrari DO - Last Filed: 10/19/22 19:01> Yes all other systems are reviewed and are negative <Efren Ferrari DO - Last Filed: 10/19/22 19:01> [facility] Past Medical History Medical History: Medical History Benign essential hypertension Bowel obstruction Chronic idiopathic constipation Chronic kidney disease (CKD), stage III (moderate) Diabetes type 2, uncontrolled Diabetic polyneuropathy associated with 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 mellitus Dyslipidemia Elevated LFTs Healed wound Hospital discharge follow-up 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 mellitus Knee osteoarthritis Knee pain, bilateral FCI (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 Melena Morbid obesity Obesity (BMI 30-39.9) Pain in both feet Pure hypercholesterolemia Right hand pain Schizo affective schizophrenia Schizoaffective disorder Type 2 diabetes mellitus with diabetic chronic kidney disease <LEXIE Brown - Last Filed: 10/19/22 18:11> Surgical History: Surgical History History of repair of congenital cleft palate Hx of circumcision <LEXIE Brown - Last Filed: 10/19/22 18:11> Family History Family History: Family History Father HTN (hypertension) Mother Diabetes Other Mental health problem <LEXIE Brown - Last Filed: 10/19/22 18:11> Social History Social History: Social History Household Members: None Housing: Apartment Do you presently have visiting nurse or other home services: Yes Alcohol intake: current Alcohol intake frequency: does not drink Alcohol type: beer, wine and hard liquor Patient Tobacco Use Status: Former Tobacco user Tobacco use type: Cigarette Cigarettes Per Day: 15 Years Smoked: 8 quit 30 years ago e-Cigarette/Vaping Use: Never Used Second Hand Smoke Exposure: No Advance Directives: No Advance Directives Information Provided: No service: No Current occupational status: employed Current occupation: [employer] Cognitive needs: No Hearing needs: No Vision needs: Yes (glasses) <LEXIE Brown - Last Filed: 10/19/22 18:11> Physical Exam ED Vital Signs: Vital Signs - 24 hr 10/19/22 18:05 Temperature 96.5 F L Pulse Rate 84 Respiratory Rate 16 Blood Pressure 148/85 H Pulse Oximetry 97 Oxygen Delivery Method Room Air BMI result Body Mass Index 36.3 <LEXIE Brown - Last Filed: 10/19/22 18:11> Vital Signs - 24 hr 10/19/22 18:05 Temperature 96.5 F L Pulse Rate 84 Respiratory Rate 16 Blood Pressure 148/85 H Pulse Oximetry 97 Oxygen Delivery Method Room Air BMI result Body Mass Index 36.3 <Efren Ferrari DO - Last Filed: 10/19/22 19:01> General: Well-appearing well-nourished in no signs of distress HEENT: Normocephalic atraumatic Neck: No signs of JVD, no masses no tenderness or lymphadenopathy Cardiovascular: Regular rate and rhythm Respiratory: Clear to auscultation bilaterally Abdomen: Soft nontender no masses Extremities: Normal pedal pulses no signs of edema Skin: Dry warm no rashes Back: No tenderness full ROM <Efren Ferrari DO - Last Filed: 10/19/22 19:01> Course Course Course Narrative: RME - 62 yo male with history of schizoaffective disorder, CKD III, HLD, DM on insulin w/ polyneuropathy, 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 He thinks his last BM was 1.5-2 weeks ago. No abdominal pain aside from intermittent cramping. No vomiting. +Flatus Plan: KUB, doubt obstruction. basic labs. bowel reg meds per provider in the Main ER <LEXIE Brown - Last Filed: 10/19/22 18:11> Medical Decision Making Medical Decision Making [facility] Narrative: 62 year old with chronic constipation. Patient looks well has benign belly exam. I don't see a need for XR and labs but they were ordered I will give the patient ravily here. 1900 Patient with mild constipation normal labs I will send home with PCp follow up. <Efren Ferrari DO - Last Filed: 10/19/22 19:01> Differential Diagnosis Differential Diagnoses: The differential diagnosis associated with the presentation includes <DO Karon Altamirano Last Filed: 10/19/22 19:01> Admission/Observation Consideration of admission/observation: Escalation of care including admission/observation considered <Efren Ferrari DO - Last Filed: 10/19/22 19:01> Chronic constipation <Efren Ferrari DO - Last Filed: 10/19/22 19:01> Lab Data [facility] Lab Attestation statement: I reviewed the patient's lab results. <Efren Ferrari DO - Last Filed: 10/19/22 19:01> Result Diagrams: 10/19/22 18:19 10/19/22 18:19 <LEXIE Brown - Last Filed: 10/19/22 18:11> Labs: Lab Results 10/19/22 10/19/22 Range/Units 18:19 18:19 WBC 7.7 (4.8-10.8) X10*3/uL RBC 5.14 (4.60-5.80) X10*6/uL Hgb 15.4 (14.0-18.0) g/dl Hct 43.1 (42.0-52.0) % MCV 83.9 (80.0-98.0) fL MCH 30.0 (27.0-33.0) pg MCHC 35.7 (31.0-36.0) g/dl RDW 12.8 (11.0-16.0) % Plt Count 115 L (160-400) X10*3/uL MPV 10.2 (9.4-12.4) fL Immature Gran % (Auto) 0.5 H (0.0-0.4) % Neut % (Auto) 71.5 (45-73) % Lymph % (Auto) 21.0 (20-40) % Mckinley % (Auto) 6.9 (2-11) % Eos % (Auto) 0.0 (0-4) % Baso % (Auto) 0.1 (0-2) % Lymph # (Auto) 1.6 (1.2-4.9) X10*3/uL Mckinley # (Auto) 0.5 (0.1-1.2) X10*3/uL Eos # (Auto) 0.0 (0.0-0.4) X10*3/uL Baso # (Auto) 0.0 (0.0-0.2) X10*3/uL Abs Immat Gran (auto) 0.04 H (0.00-0.03) X10*3/uL Absolute Neuts (auto) 5.5 (2.0-8.3) x10*3/uL Absolute Nucleated RBC 0.000 (0.0-0.012) X10*3/uL Nucleated RBC % (auto) 0.0 (0.0-0.2) /100WBC Sodium 142 (135-145) mmol/L Potassium 4.1 (3.3-5.1) mmol/L Chloride 107 (96-108) mmol/L Carbon Dioxide 23 (22-29) mmol/L Anion Gap 16 (12-20) BUN 25 H (9-16) mg/dL Creatinine 1.21 (0.5-1.4) mg/dL Estim Creat Clear Calc 89.9 Estimated GFR > 60 Random Glucose 137 H (60-115) mg/dL Calcium 9.6 (8.4-10.2) mg/dL Magnesium 2.0 (1.6-2.6) mg/dL Total Bilirubin 0.4 (0.0-1.0) mg/dL Direct Bilirubin < 0.2 (0.0-0.5) mg/dL AST 47 H (5-37) U/L ALT 98 H (0-40) U/L Alkaline Phosphatase 142 H (39-117) U/L Total Protein 6.9 (6.5-8.0) g/dL Albumin 4.3 (3.5-5.0) g/dL <LEXIE Brown - Last Filed: 10/19/22 18:11> Lab Results 10/19/22 10/19/22 Range/Units 18:19 18:19 WBC 7.7 (4.8-10.8) X10*3/uL RBC 5.14 (4.60-5.80) X10*6/uL Hgb 15.4 (14.0-18.0) g/dl Hct 43.1 (42.0-52.0) % MCV 83.9 (80.0-98.0) fL MCH 30.0 (27.0-33.0) pg MCHC 35.7 (31.0-36.0) g/dl RDW 12.8 (11.0-16.0) % Plt Count 115 L (160-400) X10*3/uL MPV 10.2 (9.4-12.4) fL Immature Gran % (Auto) 0.5 H (0.0-0.4) % Neut % (Auto) 71.5 (45-73) % Lymph % (Auto) 21.0 (20-40) % Mckinley % (Auto) 6.9 (2-11) % Eos % (Auto) 0.0 (0-4) % Baso % (Auto) 0.1 (0-2) % Lymph # (Auto) 1.6 (1.2-4.9) X10*3/uL Mckinley # (Auto) 0.5 (0.1-1.2) X10*3/uL Eos # (Auto) 0.0 (0.0-0.4) X10*3/uL Baso # (Auto) 0.0 (0.0-0.2) X10*3/uL Abs Immat Gran (auto) 0.04 H (0.00-0.03) X10*3/uL Absolute Neuts (auto) 5.5 (2.0-8.3) x10*3/uL Absolute Nucleated RBC 0.000 (0.0-0.012) X10*3/uL Nucleated RBC % (auto) 0.0 (0.0-0.2) /100WBC Sodium 142 (135-145) mmol/L Potassium 4.1 (3.3-5.1) mmol/L Chloride 107 (96-108) mmol/L Carbon Dioxide 23 (22-29) mmol/L Anion Gap 16 (12-20) BUN 25 H (9-16) mg/dL Creatinine 1.21 (0.5-1.4) mg/dL Estim Creat Clear Calc 89.9 Estimated GFR > 60 Random Glucose 137 H (60-115) mg/dL Calcium 9.6 (8.4-10.2) mg/dL Magnesium 2.0 (1.6-2.6) mg/dL Total Bilirubin 0.4 (0.0-1.0) mg/dL Direct Bilirubin < 0.2 (0.0-0.5) mg/dL AST 47 H (5-37) U/L ALT 98 H (0-40) U/L Alkaline Phosphatase 142 H (39-117) U/L Total Protein 6.9 (6.5-8.0) g/dL Albumin 4.3 (3.5-5.0) g/dL <Efren Ferrari DO - Last Filed: 10/19/22 19:01> Discharge Plan Discharge Clinical Impression: Constipated <LEXIE Brown - Last Filed: 10/19/22 18:11> Patient Disposition: Home, Self-Care <LEXIE Brown - Last Filed: 10/19/22 18:11> Instructions: Constipation (ED) <LEXIE Brown - Last Filed: 10/19/22 18:11> Additional Instructions: Please call to follow up. <LEXIE Brown - Last Filed: 10/19/22 18:11> Prescriptions: No Action cholecalciferol (vitamin D3) 25 mcg (1,000 unit) capsule 25 mcg PO DAILY Qty: 90 12RF magnesium citrate Solution See Rx Instructions PO DAILY Qty: 300 3RF Rx Instructions: DRINK 1/2 bottle if no BM after 30 mins drink 1/2 and continue until 2 bottles drank or have a BM PO daily; magnesium hydroxide [Milk of Magnesia] 400 mg/5 mL suspension 20 ml PO BEDTIME Qty: 355 6RF lidocaine 5 % adhesive patch,medicated 2 patch topical DAILY PRN (Reason: pain) Qty: 30 1RF Rx Instructions: leave on most painful area for up to 12 hrs lidocaine [Aspercreme (lidocaine)] 4 % adhesive patch,medicated 2 patch topical DAILY PRN (Reason: pain) Qty: 30 1RF (DME) blood-glucose meter [FreeStyle Lite Meter] Kit See Rx Instructions .Route Qty: 1 0RF Rx Instructions: Tests 4 X/day (DME) FreeStyle Lite Strips Strip See Rx Instructions .Route Qty: 100 5RF Rx Instructions: Tests 5X/day (DME) lancets [FreeStyle Lancets] 28 gauge misc See Rx Instructions .Route Qty: 100 4RF Rx Instructions: Tests 5x/day Jardiance 25 mg tablet 25 mg PO QAM Qty: 30 3RF peg 3350-electrolytes [Golytely] 236-22.74-6.74 -5.86 gram recon soln 240 ml PO Q10M 1 Days Qty: 4000 0RF Rx Instructions: until fecal effluent is clear; do not exceed a total volume of 2,000 mL sennosides [senna] 8.6 mg tablet 17.2 mg PO BEDTIME PRN (Reason: for constipation) Qty: 60 5RF Fiber Therapy (m-cellulose) 500 mg tablet 1,000 mg PO TID Qty: 180 5RF metformin 500 mg tablet 1,000 mg PO BID 90 Days Qty: 360 1RF docusate sodium 100 mg capsule 100 mg PO BID Qty: 60 4RF atorvastatin 10 mg tablet 10 mg PO DAILY Qty: 90 0RF benztropine 0.5 mg tablet 0.5 mg PO BID hydroxyzine pamoate 50 mg capsule 50 mg PO TID PRN (Reason: Anxiety) meclizine 25 mg tablet 25 mg PO QID PRN (Reason: dizziness) Qty: 20 0RF furosemide 20 mg tablet 20 mg PO DAILY Qty: 90 1RF gabapentin 300 mg capsule 300 mg PO BEDTIME 90 Days Qty: 90 1RF sildenafil 50 mg tablet 50 mg PO DAILY PRN (Reason: sexual activity) Qty: 10 0RF Rx Instructions: administer 30 minutes to 4 hours before activity clozapine 100 mg tablet 100 mg PO TID Digestive Advantage Advanced 10 billion cell capsule PO Tresiba FlexTouch U-200 200 unit/mL (3 mL) insulin pen 26 unit subcut DAILY 90 Days Qty: 11.7 2RF (DME) pen needle, diabetic [BD Ultra-Fine Orig Pen Needle] 29 gauge x 1/2 needle See Rx Instructions .ROUTE DAILY Qty: 100 3RF Rx Instructions: As directed daily Linzess 290 mcg capsule 290 mcg PO QAM 30 Days Qty: 30 6RF polyethylene glycol 3350 [Miralax] 17 gram powder in packet 17 g PO BID Qty: 30 6RF metoclopramide HCl [Reglan] 5 mg tablet 5 mg PO .tidac Qty: 90 6RF bisacodyl [Dulcolax (bisacodyl)] 5 mg tablet,delayed release (DR/EC) See Rx Instructions PO BEDTIME 30 Days Qty: 90 6RF Rx Instructions: 2 tabs qhs and 1 qam PO bedtime; simethicone 180 mg capsule 180 mg PO TID Qty: 90 2RF <LEXIE Brown - Last Filed: 10/19/22 18:11>
[2022-10-19 18:27] LABS: MANUAL DIFF FLAG NO
[2022-10-19 18:29] LABS: Hemoglobin 15.4 g/dl (14.0-18.0); Imm Gran Abs Auto 0.04 X10*3/uL (0.00-0.03); Imm Gran Pct Auto 0.5 % (0.0-0.4); PLT CLUMP 1; SCAN SMEAR FLAG 1
[2022-10-19 18:31] LABS: Basophils Percent Auto 0.1 % (0-2); Hematocrit 43.1 % (42.0-52.0); Lymphocytes Absolute Auto 1.6 X10*3/uL (1.2-4.9); Mean Corpuscular HGB Conc 35.7 g/dl (31.0-36.0); Mean Corpuscular Volume 83.9 fL (80.0-98.0); Mean Platelet Volume 10.2 fL (9.4-12.4); Monocytes Absolute Auto 0.5 X10*3/uL (0.1-1.2); Monocytes Percent Auto 6.9 % (2-11); Neutrophils Absolute Auto 5.5 x10*3/uL (2.0-8.3); Neutrophils Percent Auto 71.5 % (45-73); Red Blood Count 5.14 X10*6/uL (4.60-5.80); Red Cell Distribution Width 12.8 % (11.0-16.0)
[2022-10-19 18:38] LABS: Platelet Count 115 X10*3/uL (160-400); White Blood Count 7.7 X10*3/uL (4.8-10.8)
[2022-10-19 18:53] LABS: Alanine Aminotransferase 98 U/L (0-40); Albumin Level 4.3 g/dL (3.5-5.0); Alkaline Phosphatase 142 U/L (39-117); Anion Gap 16 (12-20); Aspartate Amino Transferase 47 U/L (5-37); Bilirubin Direct < 0.2 mg/dL (0.0-0.5); Bilirubin Total 0.4 mg/dL (0.0-1.0); Blood Urea Nitrogen 25 mg/dL (9-16); Calcium 9.6 mg/dL (8.4-10.2); Carbon Dioxide 23 mmol/L (22-29); Chloride 107 mmol/L (96-108); Creatinine Clr Calc Pharmacy 89.9; Estimated Glomerular Filt Rate > 60; Glucose Random 137 mg/dL (60-115); Potassium 4.1 mmol/L (3.3-5.1); Sodium 142 mmol/L (135-145); Total Protein 6.9 g/dL (6.5-8.0)
--- NOTE | 2022-10-19 19:23 | PC.NURSE ---
Med not available in Pyxis, pharmacy aware.
[2022-10-19] MEDS: PEG 3350/Na Sulf,Bicarb,Cl/KCL 4,000 ML SOLN.RECON 4000 ML PO (19:36)
--- NOTE | 2022-10-19 19:37 | PC.NURSE ---
Med given to take home, instructions given, questions answered.
== END 2022-10-19 19:52 | disposition home or self-care (01) ==
PROVIDERS: Physician Assistant; Emergency Provider Student in an Organized Health Care Education/Training Program; PCP Internal Medicine
DX: K59.00 Constipation, unspecified (principal); E11.22 Type 2 diabetes mellitus with diabetic chronic kidney disease; I12.9 Hypertensive chronic kidney disease with stage 1 through stage 4 chronic kidney disease, or unspecified chronic kidney disease; N18.30 Chronic kidney disease, stage 3 unspecified; E66.9 Obesity, unspecified; Z68.36 Body mass index [BMI] 36.0-36.9, adult; Z87.891 Personal history of nicotine dependence; Z79.4 Long term (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
CPT/HCPCS: 36415; 74018; 80048; 80076; 83735; 85025; 99282; 99283

== ENCOUNTER → 2022-11-04 09:23 | Outpatient (BNVA) | payer OTHER, SELFPAY | PROVIDERS: PCP Internal Medicine; Visit Provider Nurse Practitioner | DX: K59.04 Chronic idiopathic constipation (principal); K30 Functional dyspepsia | CPT/HCPCS: 99212 ==

== ENCOUNTER 2022-11-07 07:49 | Outpatient (REF) | payer OTHER, SELFPAY ==
[2022-11-07 08:03] LABS: MANUAL DIFF FLAG NO
[2022-11-07 08:30] LABS: Basophils Percent Auto 0.2 % (0-2); Hematocrit 46.6 % (42.0-52.0); Hemoglobin 16.6 g/dl (14.0-18.0); Imm Gran Abs Auto 0.03 X10*3/uL (0.00-0.03); Imm Gran Pct Auto 0.5 % (0.0-0.4); Lymphocytes Absolute Auto 1.4 X10*3/uL (1.2-4.9); Lymphocytes Percent Auto 20.9 % (20-40); Mean Corpuscular HGB Conc 35.6 g/dl (31.0-36.0); Mean Corpuscular Hemoglobin 30.7 pg (27.0-33.0); Mean Corpuscular Volume 86.3 fL (80.0-98.0); Mean Platelet Volume 10.1 fL (9.4-12.4); Monocytes Absolute Auto 0.5 X10*3/uL (0.1-1.2); Monocytes Percent Auto 7.2 % (2-11); Neutrophils Absolute Auto 4.6 x10*3/uL (2.0-8.3); Neutrophils Percent Auto 71.2 % (45-73); Platelet Count 120 X10*3/uL (160-400); Red Cell Distribution Width 13.2 % (11.0-16.0); White Blood Count 6.5 X10*3/uL (4.8-10.8)
[2022-11-07 08:38] LABS: Estimated Average Glucose 151 mg/dL; Hemoglobin A1c % 6.9 %
[2022-11-07 09:50] LABS: Alanine Aminotransferase 44 U/L (0-40); Albumin Level 4.4 g/dL (3.5-5.0); Alkaline Phosphatase 139 U/L (39-117); Anion Gap 16 (12-20); Aspartate Amino Transferase 24 U/L (5-37); Bilirubin Total 0.6 mg/dL (0.0-1.0); Blood Urea Nitrogen 21 mg/dL (9-16); Calcium 9.6 mg/dL (8.4-10.2); Carbon Dioxide 23 mmol/L (22-29); Chloride 107 mmol/L (96-108); Cholesterol 145 mg/dL; Estimated Glomerular Filt Rate > 60; Glucose Fasting 201 mg/dL (60-99); HDL Cholesterol 34 mg/dL; LDL Cholesterol Calculated 68 mg/dl; Potassium 4.2 mmol/L (3.3-5.1); Sodium 142 mmol/L (135-145); Total Protein 7.2 g/dL (6.5-8.0); Triglycerides 215 mg/dL
[2022-11-07 10:02] LABS: Appearance Urine Cloudy; Color Urine Yellow; Glucose Urine UA >=1000 mg/dL (Negative); Leukocyte Esterase Urine Negative (Negative); Nitrite Urine Negative (Negative); UMIC TRIGGER UACC YES; Urine Blood Negative (Negative); Urine Ketones Negative (Negative); Urine Protein Negative (Neg-Trace)
[2022-11-07 10:05] LABS: Bacteria Urine None Seen (None Seen); Hyaline Casts Urine 0-2 /LPF (0-2); RBC Urine 0-2 /HPF (0-2); Squamous Epithelial Cell Urine 0-2 /HPF (0-2); WBC Urine 0-5 /HPF (0-5)
[2022-11-07 10:07] LABS: TSH reflex Free T4 3.13 uIU/mL (0.32-4.0); Vitamin D 25-OH Total 51.7 ng/mL (>30)
[2022-11-07 10:37] LABS: Creatinine Urine 41.78 mg/dL; Microalbumin Urine < 5.0 mg/L
== END 2022-11-07 07:50 | disposition home or self-care (01) ==
LOC: HO.LAB 07:49
PROVIDERS: PCP Internal Medicine; Visit Provider Internal Medicine
DX: E55.9 Vitamin D deficiency, unspecified (principal); E11.9 Type 2 diabetes mellitus without complications; E78.00 Pure hypercholesterolemia, unspecified; I10 Essential (primary) hypertension
CPT/HCPCS: 36415; 80053; 80061; 81001; 81003; 82043; 82306; 83036; 84443; 85025

== ENCOUNTER 2022-11-16 10:12 | Outpatient (REF) | payer OTHER, SELFPAY ==
[2022-11-16 10:53] LABS: MANUAL DIFF FLAG NO
[2022-11-16 11:51] LABS: Basophils Percent Auto 0.1 % (0-2); Hematocrit 44.7 % (42.0-52.0); Hemoglobin 15.8 g/dl (14.0-18.0); Imm Gran Abs Auto 0.08 X10*3/uL (0.00-0.03); Imm Gran Pct Auto 1.2 % (0.0-0.4); Lymphocytes Absolute Auto 1.3 X10*3/uL (1.2-4.9); Lymphocytes Percent Auto 19.1 % (20-40); Mean Corpuscular HGB Conc 35.3 g/dl (31.0-36.0); Mean Corpuscular Hemoglobin 30.3 pg (27.0-33.0); Mean Corpuscular Volume 85.8 fL (80.0-98.0); Mean Platelet Volume 10.5 fL (9.4-12.4); Monocytes Absolute Auto 0.5 X10*3/uL (0.1-1.2); Monocytes Percent Auto 7.7 % (2-11); Neutrophils Absolute Auto 4.9 x10*3/uL (2.0-8.3); Neutrophils Percent Auto 71.9 % (45-73); Platelet Count 112 X10*3/uL (160-400); Red Blood Count 5.21 X10*6/uL (4.60-5.80); Red Cell Distribution Width 12.9 % (11.0-16.0); White Blood Count 6.9 X10*3/uL (4.8-10.8)
== END 2022-11-16 10:13 | disposition home or self-care (01) ==
LOC: HO.LABR 10:12
PROVIDERS: PCP Internal Medicine; Visit Provider Nurse Practitioner Psychiatric/Mental Health
DX: Z79.899 Other long term (current) drug therapy (principal)
CPT/HCPCS: 36415; 85025

== ENCOUNTER 2022-12-13 07:40 | Outpatient (REF) | payer OTHER, SELFPAY ==
[2022-12-13 08:02] LABS: MANUAL DIFF FLAG NO
[2022-12-13 08:44] LABS: Hemoglobin 16.3 g/dl (14.0-18.0); Imm Gran Abs Auto 0.03 X10*3/uL (0.00-0.03); Imm Gran Pct Auto 0.5 % (0.0-0.4); Lymphocytes Absolute Auto 1.2 X10*3/uL (1.2-4.9); Lymphocytes Percent Auto 20.2 % (20-40); Mean Corpuscular HGB Conc 34.7 g/dl (31.0-36.0); Mean Corpuscular Hemoglobin 29.5 pg (27.0-33.0); Mean Platelet Volume 10.3 fL (9.4-12.4); Monocytes Absolute Auto 0.4 X10*3/uL (0.1-1.2); Monocytes Percent Auto 7.2 % (2-11); Neutrophils Absolute Auto 4.4 x10*3/uL (2.0-8.3); Neutrophils Percent Auto 72.1 % (45-73); Platelet Count 113 X10*3/uL (160-400); Red Blood Count 5.53 X10*6/uL (4.60-5.80); Red Cell Distribution Width 12.5 % (11.0-16.0); White Blood Count 6.1 X10*3/uL (4.8-10.8)
== END 2022-12-13 07:41 | disposition home or self-care (01) ==
LOC: HO.LABR 07:40
PROVIDERS: PCP Internal Medicine; Visit Provider Nurse Practitioner Psychiatric/Mental Health
DX: Z79.899 Other long term (current) drug therapy (principal)
CPT/HCPCS: 36415; 85025

== ENCOUNTER 2022-12-26 14:05 | Emergency (ER) | payer OTHER, SELFPAY ==
--- NOTE | ~2022-12-26 | CT_ITS ---
EXAMINATION: CT ABDOMEN AND PELVIS WITHOUT CONTRAST CLINICAL INFORMATION: No bowel movement for 5 days. Possible bowel obstruction. COMPARISON: [facility] 10/19/2022, CT abdomen and pelvis noncontrast 08/05/2022, 05/06/2022. TECHNIQUE: Multidetector volumetric imaging was performed from the superior aspect of the liver through the pubic symphysis. Sagittal and coronal reformatted images were obtained on the technologist's workstation. This CT examination was performed using dose optimization techniques as appropriate, variously including the following: *Automated exposure control *Adjustment of mA and/or kV according to patient size (this includes techniques or standardized protocols for targeted exams where dose is matched to indication/reason for exam; i.e. extremities or head) *Use of iterative reconstruction technique DLP: 954 mGy-cm FINDINGS: LUNG BASES: The visualized lung bases are unremarkable. LIVER, GALLBLADDER, AND BILIARY TREE: The liver again shows subtle nodular surface contour suggesting cirrhosis. Liver size is upper normal, stable. The parenchyma is homogeneous and there is no intrahepatic ductal dilatation. The gallbladder is unremarkable with no evidence of radiopaque gallstones, gallbladder wall thickening, or obvious pericholecystic inflammatory changes. PANCREAS: There is atrophy of the pancreas, similar to prior exam. No pancreatic ductal distention or retroperitoneal inflammatory changes. SPLEEN: Splenomegaly similar to prior exam, vertical 16 cm, sagittal 18 cm. Parenchyma homogeneous. ADRENAL GLANDS: Unremarkable. KIDNEYS AND URETERS: The kidneys show no hydronephrosis or hydroureter or perinephric stranding. There is a stable nonobstructing right lower pole calculus approximately 3 mm in size again noted. BLADDER: Unremarkable. GASTROINTESTINAL TRACT: There is moderate to large retained stool throughout the colon down to the mid sigmoid, distally collapsed. No pneumatosis or free air. No inflammatory changes in the bowel or mesentery. The appendix is normal. There is no ascites or fluid collection. ABDOMINAL WALL: No significant hernia is appreciated. LYMPH NODES: No lymphadenopathy. Small stable right anterior pericardial node. VASCULAR: Unremarkable, noncontrast exam. PELVIC VISCERA: Scattered small prostatic calcifications. Seminal vesicles symmetric. Pelvic side wall soft tissues unremarkable. OSSEOUS STRUCTURES: Unremarkable. CT/CT abdomen pelvis wo IV con IMPRESSION: - Moderate to large retained stool throughout colon down to mid sigmoid. No inflammatory changes in bowel or mesentery. No pneumatosis or free air. - Stable mild nodular liver surface contour suggesting cirrhosis. Stable splenomegaly. No ascites. - No hydronephrosis or perinephric stranding.
[2022-12-26 15:07] VITALS: BP 123/70; PULSE 73; RESP 15; TEMP 36.4; O2SAT 97; BMI 36.3
--- NOTE | 2022-12-26 15:09 | ED_ITS ---
HPI - Abdominal Pain General Chief Complaint: General Medical <Gena Holloway NP - Last Filed: 12/26/22 15:09> Stated Complaint: Very constipated <Gena Holloway NP - Last Filed: 12/26/22 15:09> Time Seen by Provider: 12/26/22 15:35 <Gena Holloway NP - Last Filed: 12/26/22 15:09> Source: patient <Etienne Duval MD - Last Filed: 12/26/22 20:53> Mode of arrival: ambulatory <Etienne Duval MD - Last Filed: 12/26/22 20:53> Limitations: no limitations <Etienne Duval MD - Last Filed: 12/26/22 20:53> History of Present Illness HPI narrative: 62-year-old male came in for evaluation of possible constipation. Last normal bowel movement was 5 days ago patient usually go every day or every other day at the most unable to go for the last 5 days, complaining of abdominal distension, unable to have bowel movement for 5 days, intermittent cramps since today, feels marked nausea, otherwise patient has been eating with normal appetite. No past surgical history, able to pass flatus, patient tried milk of magnesia with no relief of his symptoms, no fever, no chills. <Etienne Duval MD - Last Filed: 12/26/22 20:53> Related Data Home Medications: Home Medications Medication Instructions Recorded Confirmed hydroxyzine pamoate 50 mg capsule 50 mg PO TID PRN Anxiety 09/18/20 11/11/22 benztropine 0.5 mg tablet 0.5 mg PO BID 04/29/22 11/11/22 L.acidoph, paracasei,B. lactis 10 cell PO 05/12/22 11/11/22 billion cell capsule (Digestive Advantage Advanced Probiotic) clozapine 100 mg tablet 100 mg PO TID 05/12/22 11/11/22 Previous Rx's Medication Instructions Recorded lidocaine 5 % topical patch 2 patch topical DAILY PRN pain #30 01/11/22 ea meclizine 25 mg tablet 25 mg PO QID PRN dizziness #20 tabs 01/19/22 lidocaine 4 % topical patch 2 patch topical DAILY PRN pain #30 01/20/22 (Aspercreme (lidocaine)) ea pen needle, diabetic 29 gauge x #100 ea 02/02/22 1/ (BD Ultra-Fine Original Pen Needle) blood-glucose meter (FreeStyle #1 ea 02/18/22 Lite Meter kit) blood sugar diagnostic (FreeStyle #100 ea 03/13/22 Lite Strips) lancets 28 gauge (FreeStyle #100 ea 03/13/22 Lancets) empagliflozin 25 mg tablet 25 mg PO QAM #30 tabs 05/25/22 (Jardiance) methylcellulose (laxative) 500 mg 1,000 mg PO TID #180 tabs 07/13/22 tablet (Fiber Therapy (methylcellulose)) sennosides 8.6 mg tablet (senna) 17.2 mg PO BEDTIME PRN for 07/13/22 constipation #60 tabs furosemide 20 mg tablet 20 mg PO DAILY #90 tabs 08/11/22 gabapentin 300 mg capsule 300 mg PO BEDTIME 90 days #90 caps 08/11/22 sildenafil 50 mg tablet 50 mg PO DAILY PRN sexual activity 08/11/22 #10 tabs bisacodyl 5 mg tablet,delayed See Rx Instructions PO BEDTIME 30 08/12/22 release (Dulcolax (bisacodyl)) days #90 tabs polyethylene glycol 3350 17 gram 17 g PO BID #30 ea 08/12/22 oral powder packet (Miralax) simethicone 180 mg capsule 180 mg PO TID #90 caps 08/12/22 metformin 500 mg tablet 1,000 mg PO BID 90 days #360 tabs 09/08/22 docusate sodium 100 mg capsule 100 mg PO BID #60 caps 09/13/22 atorvastatin 10 mg tablet 10 mg PO DAILY #90 tabs 10/03/22 cholecalciferol (vitamin D3) 25 25 mcg PO DAILY #90 caps 11/03/22 mcg (1,000 unit) capsule Tresiba FlexTouch U-200 200 30 unit (0.15 mL) subcut DAILY 90 11/11/22 unit/mL (3 mL) subcutaneous pen days #9 mL (insulin degludec) peg 3350-electrolytes 236 240 ml PO Q10M 1 day #4,000 mL 11/11/22 gram-22.74 gram-6.74 gram-5.86 gram solution (Golytely) linaclotide 290 mcg capsule 290 mcg PO QAM 30 days #30 caps 12/26/22 (Linzess) <Gena Holloway NP - Last Filed: 12/26/22 15:09> Allergies/Adverse Reactions: Allergies Allergy/AdvReac Type Severity Reaction Status Date / Time No Known Allergies Allergy Verified 12/26/22 15:09 [No Known Allergies*] <Gena Holloway NP - Last Filed: 12/26/22 15:09> Review of Systems Review of Systems All other systems are reviewed and are negative Constitutional: Reports as per HPI and Reports no additional constitutional complaints Eyes: Reports as per HPI and Reports no additional eye complaints Reports system reviewed and no additional complaints, except as documented Cardiovascular: Reports as per HPI and Reports no additional cardiovascular complaints Respiratory: Reports as per HPI and Reports no additional respiratory complaints Gastrointestinal: Reports as per HPI and Reports no additional gastrointestinal complaints Genitourinary: Reports no additional female genitourinary complaints Musculoskeletal: Reports no additional musculoskeletal complaints Skin/Breast: Reports system reviewed and no additional complaints, except as docu Psychiatric: Reports no additional psychiatric complaints Endocrine: Reports no additional endocrine complaints Hematologic/Lymphatic: Reports no additional hematologic/lymphatic complaints Allergic/Immunologic: Reports no additional allergic/immunologic complaints Reports system reviewed and no additional complaints, except as documented and Reports Abnormal speech present <Etienne Duval MD - Last Filed: 12/26/22 20:53> [facility] Past Medical History Medical History: Medical History Benign essential hypertension Bowel obstruction Chronic idiopathic constipation Chronic kidney disease (CKD), stage III (moderate) Diabetes type 2, uncontrolled Diabetic polyneuropathy associated with 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 mellitus Dyslipidemia Elevated LFTs Gastroenteritis Healed wound Hospital discharge follow-up 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 mellitus Knee osteoarthritis Knee pain, bilateral 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 (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 Melena Morbid obesity Obesity (BMI 30-39.9) Pain in both feet Pure hypercholesterolemia Right hand pain Schizo affective schizophrenia Schizoaffective disorder Type 2 diabetes mellitus with diabetic chronic kidney disease <Gena Holloway NP - Last Filed: 12/26/22 15:09> Surgical History: Surgical History History of repair of congenital cleft palate Hx of circumcision <Gena Holloway NP - Last Filed: 12/26/22 15:09> Family History Family History: Family History Father HTN (hypertension) Mother Diabetes Other Mental health problem <Gena Holloway NP - Last Filed: 12/26/22 15:09> Social History Social History: Social History Household Members: None Housing: Apartment Do you presently have visiting nurse or other home services: Yes Alcohol intake: current Alcohol intake frequency: does not drink Alcohol type: beer, wine and hard liquor Patient Tobacco Use Status: Former Tobacco user Tobacco use type: Cigarette Cigarettes Per Day: 15 Years Smoked: 8 quit 30 years ago e-Cigarette/Vaping Use: Never Used Second Hand Smoke Exposure: No Advance Directives: No Advance Directives Information Provided: No service: No Current occupational status: employed Current occupation: [employer] Cognitive needs: No Hearing needs: No Vision needs: Yes (glasses) <Gena Holloway NP - Last Filed: 12/26/22 15:09> Physical Exam ED Vital Signs: Vital Signs - 24 hr 12/26/22 15:07 12/26/22 20:45 Temperature 97.5 F 97.5 F Pulse Rate 73 88 Respiratory Rate 15 17 Blood Pressure 123/70 105/68 Pulse Oximetry 97 96 Oxygen Delivery Method Room Air Room Air BMI result Body Mass Index 36.3 <Gena Holloway NP - Last Filed: 12/26/22 15:09> Vital Signs - 24 hr 12/26/22 15:07 12/26/22 20:45 Temperature 97.5 F 97.5 F Pulse Rate 73 88 Respiratory Rate 15 17 Blood Pressure 123/70 105/68 Pulse Oximetry 97 96 Oxygen Delivery Method Room Air Room Air BMI result Body Mass Index 36.3 Vital signs have been reviewed as appeared to be correct. Blood pressure norm al. Heart rate normal. Respiration rate normal. Temperature normal. Oxygen saturation normal. <Etienne Duval MD - Last Filed: 12/26/22 20:53> Appearance: Alert. Oriented X3. No acute distress. Head: Normal external exam. Normocephalic. Atraumatic. No Calvin signs noted. No raccoon eyes noted Eyes: PERRLA. EOMI. Conjunctiva and sclera normal. Eyelids normal. ENT: TM's Normal. Pharynx normal. Uvula midline. Moist mucous membranes. No trismus noted. No drooling noted. No muffled voice noted. Neck: Normal inspection. Neck supple. FROM. No adenopathy. Thyroid Normal. No meningeal signs. No neck mass noted. CVS: Normal heart rate and rhythm. Heart sound normal. No murmurs noted. Pulses normal throughout. Respiratory: No respiratory distress. Painless inspiration. Breath sounds normal. No wheezes/rales/rhonchi noted. Chest nontender. No accessory muscle usage noted or decreased air movement noted. Abdomen: Soft and nontender. Bowel sounds normal in all 4 quadrants. No distention noted. No organomegaly noted. No visible injury noted. Rectal exam: No stool in the vault, yellow stool guaiac negative. Back: No CVA tenderness. Full range of motion noted. Skin: Skin warm and dry. Normal skin color. Normal skin turgor. No rashes/lesions/lacerations noted. Extremities: No lower extremity edema. Extremities exhibit normal range of motion. Extremities nontender. Neuro: Oriented X 3. Cranial nerve exam: II-XII are grossly intact No motor deficit. No sensory deficit. Reflexes normal. <Etienne Duval MD - Last Filed: 12/26/22 20:53> Course Course Course Narrative: This is a rapid medical exam. Deferred additional HPI, ROS, PE department provider. 62-year-old male here with complaints of constipation for 1 week despite taking milk of magnesia, Colace, senna. No vomiting. Patient has had some abdominal cramping. Tried calling his GI but was unable to be seen by them. Will check [facility]. Vitals stable <Gena Holloway NP - Last Filed: 12/26/22 15:09> Reevaluation(s) Reevaluation #1: 62-year-old male came for constipation for the past 5 days, CT abdomen pelvis confirmed diagnosis of acute constipation. Exam showed empty rectal vault but CT is consistent with constipation received milk of magnesia and rectal enema with no BM, patient will be going home with [facility]. <Etienne Duval MD - Last Filed: 12/26/22 20:53> Time: 20:51 <Etienne Duval MD - Last Filed: 12/26/22 20:53> Medical Decision Making Differential Diagnosis Differential Diagnoses: The differential diagnosis associated with the presentation includes (Abdominal pain, constipation, SBO, electrolyte abnormalities, severe anemia.) <Etienne Duval MD - Last Filed: 12/26/22 20:53> Admission/Observation Consideration of admission/observation: Escalation of care including admission/observation considered <Etienne Duval MD - Last Filed: 12/26/22 20:53> Lab Data MDM Lab Attestation statement: I reviewed the patient's lab results. <Etienne Duval MD - Last Filed: 12/26/22 20:53> Result Diagrams: 12/26/22 16:24 12/26/22 16:24 <Gena Holloway NP - Last Filed: 12/26/22 15:09> Labs: Lab Results 12/26/22 12/26/22 12/26/22 Range/Units 16:24 16:24 16:24 WBC 7.2 (4.8-10.8) X10*3/uL RBC 5.35 (4.60-5.80) X10*6/uL Hgb 15.9 (14.0-18.0) g/dl Hct 44.8 (42.0-52.0) % MCV 83.7 (80.0-98.0) fL MCH 29.7 (27.0-33.0) pg MCHC 35.5 (31.0-36.0) g/dl RDW 12.6 (11.0-16.0) % Plt Count 114 L (160-400) X10*3/uL MPV 10.1 (9.4-12.4) fL Immature Gran % (Auto) 0.4 (0.0-0.4) % Neut % (Auto) 71.8 (45-73) % Lymph % (Auto) 19.7 L (20-40) % Kleberg % (Auto) 8.0 (2-11) % Eos % (Auto) 0.0 (0-4) % Baso % (Auto) 0.1 (0-2) % Lymph # (Auto) 1.4 (1.2-4.9) X10*3/uL Kleberg # (Auto) 0.6 (0.1-1.2) X10*3/uL Eos # (Auto) 0.0 (0.0-0.4) X10*3/uL Baso # (Auto) 0.0 (0.0-0.2) X10*3/uL Abs Immat Gran (auto) 0.03 (0.00-0.03) X10*3/uL Absolute Neuts (auto) 5.2 (2.0-8.3) x10*3/uL Absolute Nucleated RBC 0.000 (0.0-0.012) X10*3/uL Nucleated RBC % (auto) 0.0 (0.0-0.2) /100WBC Sodium 140 (135-145) mmol/L Potassium 4.3 (3.3-5.1) mmol/L Chloride 106 (96-108) mmol/L Carbon Dioxide 25 (22-29) mmol/L Anion Gap 13 (12-20) BUN 22 H (9-16) mg/dL Creatinine 1.15 (0.5-1.4) mg/dL Estim Creat Clear Calc 94.5 Estimated GFR > 60 Random Glucose 124 H (60-115) mg/dL Calcium 9.6 (8.4-10.2) mg/dL Total Bilirubin 0.5 (0.0-1.0) mg/dL Direct Bilirubin 0.1 (0.0-0.5) mg/dL AST 32 (5-37) U/L ALT 63 H (0-40) U/L Alkaline Phosphatase 131 H (39-117) U/L Troponin I High Sens < 2.7 (<3.5-35.0) ng/L Total Protein 7.0 (6.5-8.0) g/dL Albumin 4.2 (3.5-5.0) g/dL Lipase 14 (8-78) U/L <Gena Holloway BALANCE ASSEMBLER - Last Filed: 12/26/22 15:09> Lab Results 12/26/22 12/26/22 12/26/22 Range/Units 16:24 16:24 16:24 WBC 7.2 (4.8-10.8) X10*3/uL RBC 5.35 (4.60-5.80) X10*6/uL Hgb 15.9 (14.0-18.0) g/dl Hct 44.8 (42.0-52.0) % MCV 83.7 (80.0-98.0) fL MCH 29.7 (27.0-33.0) pg MCHC 35.5 (31.0-36.0) g/dl RDW 12.6 (11.0-16.0) % Plt Count 114 L (160-400) X10*3/uL MPV 10.1 (9.4-12.4) fL Immature Gran % (Auto) 0.4 (0.0-0.4) % Neut % (Auto) 71.8 (45-73) % Lymph % (Auto) 19.7 L (20-40) % Kleberg % (Auto) 8.0 (2-11) % Eos % (Auto) 0.0 (0-4) % Baso % (Auto) 0.1 (0-2) % Lymph # (Auto) 1.4 (1.2-4.9) X10*3/uL Kleberg # (Auto) 0.6 (0.1-1.2) X10*3/uL Eos # (Auto) 0.0 (0.0-0.4) X10*3/uL Baso # (Auto) 0.0 (0.0-0.2) X10*3/uL Abs Immat Gran (auto) 0.03 (0.00-0.03) X10*3/uL Absolute Neuts (auto) 5.2 (2.0-8.3) x10*3/uL Absolute Nucleated RBC 0.000 (0.0-0.012) X10*3/uL Nucleated RBC % (auto) 0.0 (0.0-0.2) /100WBC Sodium 140 (135-145) mmol/L Potassium 4.3 (3.3-5.1) mmol/L Chloride 106 (96-108) mmol/L Carbon Dioxide 25 (22-29) mmol/L Anion Gap 13 (12-20) BUN 22 H (9-16) mg/dL Creatinine 1.15 (0.5-1.4) mg/dL Estim Creat Clear Calc 94.5 Estimated GFR > 60 Random Glucose 124 H (60-115) mg/dL Calcium 9.6 (8.4-10.2) mg/dL Total Bilirubin 0.5 (0.0-1.0) mg/dL Direct Bilirubin 0.1 (0.0-0.5) mg/dL AST 32 (5-37) U/L ALT 63 H (0-40) U/L Alkaline Phosphatase 131 H (39-117) U/L Troponin I High Sens < 2.7 (<3.5-35.0) ng/L Total Protein 7.0 (6.5-8.0) g/dL Albumin 4.2 (3.5-5.0) g/dL Lipase 14 (8-78) U/L <Etienne Duval MD - Last Filed: 12/26/22 20:53> Independent Interpretation I performed an independent interpretation of an: CT Scan (Abdomen and pelvis: Constipation with no acute other intra- abdominal pathology) <Etienne Duval MD - Last Filed: 12/26/22 20:53> Radiology Impression Discussion of test interpretation with radiology: I have reviewed the radiologist's reading. <Etienne Duval MD - Last Filed: 12/26/22 20:53> Medications Administered Discontinued Medications Generic Name Dose Route Start Last Admin Trade Name Freq PRN Reason Stop Dose Admin Magnesium Hydroxide 30 ml 12/26/22 15:47 12/26/22 15:58 Milk Of Magnesia 30 Ml Oral.Susp PO 12/26/22 15:48 30 ml ONCE ONE Administration Polyethylene Glycol/Electrolytes 4,000 ml 12/26/22 18:15 12/26/22 20:33 Peg 3350/Na Sulf,Bicarb,Cl/Kcl 4,000 Ml Soln.Recon PO 12/26/22 18:16 4,000 ml ONCE ONE Administration <Gena Holloway NP - Last Filed: 12/26/22 15:09> Medications Administered Discontinued Medications Generic Name Dose Route Start Last Admin Trade Name Freq PRN Reason Stop Dose Admin Magnesium Hydroxide 30 ml 12/26/22 15:47 12/26/22 15:58 Milk Of Magnesia 30 Ml Oral.Susp PO 12/26/22 15:48 30 ml ONCE ONE Administration Polyethylene Glycol/Electrolytes 4,000 ml 12/26/22 18:15 12/26/22 20:33 Peg 3350/Na Sulf,Bicarb,Cl/Kcl 4,000 Ml Soln.Recon PO 12/26/22 18:16 4,000 ml ONCE ONE Administration <Etienne Duval MD - Last Filed: 12/26/22 20:53> Discharge Plan Discharge Clinical Impression: Abdominal bloating, Acute constipation <Gena Holloway NP - Last Filed: 12/26/22 15:09> Patient Disposition: Home, Self-Care <Gena Holloway NP - Last Filed: 12/26/22 15:09> Instructions: Constipation (ED) <Gena Holloway NP - Last Filed: 12/26/22 15:09> Additional Instructions: Take the GoLYTELY as prescribed until have satisfying bowel movement. <Gena Holloway NP - Last Filed: 12/26/22 15:09> Prescriptions: No Action lidocaine 5 % adhesive patch,medicated 2 patch topical DAILY PRN (Reason: pain) Qty: 30 1RF Rx Instructions: leave on most painful area for up to 12 hrs lidocaine [Aspercreme (lidocaine)] 4 % adhesive patch,medicated 2 patch topical DAILY PRN (Reason: pain) Qty: 30 1RF (DME) blood-glucose meter [FreeStyle Lite Meter] Kit See Rx Instructions .Route Qty: 1 0RF Rx Instructions: Tests 4 X/day (DME) FreeStyle Lite Strips Strip See Rx Instructions .Route Qty: 100 5RF Rx Instructions: Tests 5X/day (DME) lancets [FreeStyle Lancets] 28 gauge misc See Rx Instructions .Route Qty: 100 4RF Rx Instructions: Tests 5x/day Jardiance 25 mg tablet 25 mg PO QAM Qty: 30 3RF sennosides [senna] 8.6 mg tablet 17.2 mg PO BEDTIME PRN (Reason: for constipation) Qty: 60 5RF Fiber Therapy (m-cellulose) 500 mg tablet 1,000 mg PO TID Qty: 180 5RF metformin 500 mg tablet 1,000 mg PO BID 90 Days Qty: 360 1RF docusate sodium 100 mg capsule 100 mg PO BID Qty: 60 4RF atorvastatin 10 mg tablet 10 mg PO DAILY Qty: 90 0RF cholecalciferol (vitamin D3) 25 mcg (1,000 unit) capsule 25 mcg PO DAILY Qty: 90 12RF Linzess 290 mcg capsule 290 mcg PO QAM 30 Days Qty: 30 6RF benztropine 0.5 mg tablet 0.5 mg PO BID hydroxyzine pamoate 50 mg capsule 50 mg PO TID PRN (Reason: Anxiety) meclizine 25 mg tablet 25 mg PO QID PRN (Reason: dizziness) Qty: 20 0RF furosemide 20 mg tablet 20 mg PO DAILY Qty: 90 1RF gabapentin 300 mg capsule 300 mg PO BEDTIME 90 Days Qty: 90 1RF sildenafil 50 mg tablet 50 mg PO DAILY PRN (Reason: sexual activity) Qty: 10 0RF Rx Instructions: administer 30 minutes to 4 hours before activity peg 3350-electrolytes [Golytely] 236-22.74-6.74 -5.86 gram recon soln 240 ml PO Q10M 1 Days Qty: 4000 0RF Rx Instructions: until fecal effluent is clear; do not exceed a total volume of 2,000 mL Tresiba FlexTouch U-200 200 unit/mL (3 mL) insulin pen 30 unit subcut DAILY 90 Days Qty: 9 3RF clozapine 100 mg tablet 100 mg PO TID Digestive Advantage Advanced 10 billion cell capsule PO (DME) pen needle, diabetic [BD Ultra-Fine Orig Pen Needle] 29 gauge x 1/2 needle See Rx Instructions .ROUTE DAILY Qty: 100 3RF Rx Instructions: As directed daily polyethylene glycol 3350 [Miralax] 17 gram powder in packet 17 g PO BID Qty: 30 6RF Hold Instructions: Doctor's Order bisacodyl [Dulcolax (bisacodyl)] 5 mg tablet,delayed release (DR/EC) See Rx Instructions PO BEDTIME 30 Days Qty: 90 6RF Rx Instructions: 2 tabs qhs and 1 qam PO bedtime; simethicone 180 mg capsule 180 mg PO TID Qty: 90 2RF <Gena Holloway NP - Last Filed: 12/26/22 15:09> Referrals: Luis Manuel Garcia MD [Primary Care Provider] - <Gena Holloway NP - Last Filed: 12/26/22 15:09>
--- NOTE | 2022-12-26 15:48 | ECG_ITS ---
Test Reason : CP Blood Pressure : / mmHG Vent. Rate : 077 BPM Atrial Rate : 077 BPM P-R Int : 148 ms QRS Dur : 100 ms QT Int : 404 ms P-R-T Axes : 029 -35 009 degrees QTc Int : 457 ms Normal sinus rhythm Left axis deviation Cannot rule out Anterior infarct , age undetermined Abnormal ECG When compared with ECG of 16-JAN-2022 21:56, Premature atrial complexes are no longer Present Referred By: Etienne Duval Electronically Signed By:Dionisio Fonseca
[2022-12-26] MEDS: Milk of Magnesia 30 ML ORAL.SUSP PO (15:58)
[2022-12-26 16:29] LABS: MANUAL DIFF FLAG NO
[2022-12-26 17:05] LABS: Alanine Aminotransferase 63 U/L (0-40); Albumin Level 4.2 g/dL (3.5-5.0); Alkaline Phosphatase 131 U/L (39-117); Anion Gap 13 (12-20); Aspartate Amino Transferase 32 U/L (5-37); Bilirubin Direct 0.1 mg/dL (0.0-0.5); Bilirubin Total 0.5 mg/dL (0.0-1.0); Blood Urea Nitrogen 22 mg/dL (9-16); Calcium 9.6 mg/dL (8.4-10.2); Carbon Dioxide 25 mmol/L (22-29); Chloride 106 mmol/L (96-108); Creatinine Clr Calc Pharmacy 94.5; Estimated Glomerular Filt Rate > 60; Glucose Random 124 mg/dL (60-115); Lipase 14 U/L (8-78); Potassium 4.3 mmol/L (3.3-5.1); Sodium 140 mmol/L (135-145)
[2022-12-26 17:08] LABS: Basophils Percent Auto 0.1 % (0-2); Hematocrit 44.8 % (42.0-52.0); Hemoglobin 15.9 g/dl (14.0-18.0); Imm Gran Abs Auto 0.03 X10*3/uL (0.00-0.03); Imm Gran Pct Auto 0.4 % (0.0-0.4); Lymphocytes Absolute Auto 1.4 X10*3/uL (1.2-4.9); Lymphocytes Percent Auto 19.7 % (20-40); Mean Corpuscular HGB Conc 35.5 g/dl (31.0-36.0); Mean Corpuscular Hemoglobin 29.7 pg (27.0-33.0); Mean Corpuscular Volume 83.7 fL (80.0-98.0); Mean Platelet Volume 10.1 fL (9.4-12.4); Monocytes Absolute Auto 0.6 X10*3/uL (0.1-1.2); Neutrophils Absolute Auto 5.2 x10*3/uL (2.0-8.3); Neutrophils Percent Auto 71.8 % (45-73); Platelet Count 114 X10*3/uL (160-400); Red Blood Count 5.35 X10*6/uL (4.60-5.80); Red Cell Distribution Width 12.6 % (11.0-16.0); White Blood Count 7.2 X10*3/uL (4.8-10.8)
[2022-12-26 17:13] LABS: Troponin-I High Sensitivity < 2.7 ng/L (<3.5-35.0)
[2022-12-26] MEDS: PEG 3350/Na Sulf,Bicarb,Cl/KCL 4,000 ML SOLN.RECON 4000 ML PO (20:33)
[2022-12-26 20:45] VITALS: BP 105/68; PULSE 88; RESP 17; TEMP 36.4; O2SAT 96
--- NOTE | 2022-12-26 20:58 | PC.NURSE ---
Pt ca&ox3, ambulates with a steady gait. No signs of distress. Pt denies chest pain and sob. Pt d/c with Golytely. D/c instructions reviewed with pt and pt verbalizes understanding of d/c instructions. Pt advised to follow up with PCP and return to ED if sx persist or worsen.
== END 2022-12-26 21:00 | disposition home or self-care (01) ==
PROVIDERS: Emergency Provider Emergency Medicine; PCP Internal Medicine
DX: R07.89 Other chest pain (principal); R14.0 Abdominal distension (gaseous); R10.2 Pelvic and perineal pain; K59.00 Constipation, unspecified; Z87.891 Personal history of nicotine dependence; Z79.899 Other long term (current) drug therapy
CPT/HCPCS: 36415; 74176; 80048; 80076; 83690; 84484; 85025; 93005; 99284

== ENCOUNTER 2023-01-04 14:16 | Emergency (ER) | payer OTHER, MEDICAID, SELFPAY ==
--- NOTE | 2023-01-04 14:40 | ED_ITS ---
HPI - General Adult General Chief complaint: General Medical Stated complaint: Elevated Blood Sugar Time Seen by Provider: 01/04/23 17:33 Source: patient Mode of arrival: ambulatory Limitations: no limitations History of Present Illness HPI narrative: Patient diabetic taking Tresiba metformin and Jardiance noticed for last 1 blood sugar elevated specially after eating meals fluctuating between 200-300 range patient unable to reach his PCP. No nausea no vomiting no fever no chills Related Data Home Medications Medication Instructions Recorded Confirmed hydroxyzine pamoate 50 mg capsule 50 mg PO TID PRN Anxiety 09/18/20 11/11/22 benztropine 0.5 mg tablet 0.5 mg PO BID 04/29/22 11/11/22 L.acidoph, paracasei,B. lactis 10 cell PO 05/12/22 11/11/22 billion cell capsule (Digestive Advantage Advanced Probiotic) clozapine 100 mg tablet 100 mg PO TID 05/12/22 11/11/22 Previous Rx's Medication Instructions Recorded lidocaine 5 % topical patch 2 patch topical DAILY PRN pain #30 01/11/22 ea meclizine 25 mg tablet 25 mg PO QID PRN dizziness #20 tabs 01/19/22 lidocaine 4 % topical patch 2 patch topical DAILY PRN pain #30 01/20/22 (Aspercreme (lidocaine)) ea pen needle, diabetic 29 gauge x #100 ea 02/02/2208/15 (BD Ultra-Fine Original Pen Needle) blood-glucose meter (FreeStyle #1 ea 02/18/22 Lite Meter kit) lancets 28 gauge (FreeStyle #100 ea 03/13/22 Lancets) empagliflozin 25 mg tablet 25 mg PO QAM #30 tabs 05/25/22 (Jardiance) methylcellulose (laxative) 500 mg 1,000 mg PO TID #180 tabs 07/13/22 tablet (Fiber Therapy (methylcellulose)) sennosides 8.6 mg tablet (senna) 17.2 mg PO BEDTIME PRN for 07/13/22 constipation #60 tabs furosemide 20 mg tablet 20 mg PO DAILY #90 tabs 08/11/22 gabapentin 300 mg capsule 300 mg PO BEDTIME 90 days #90 caps 08/11/22 sildenafil 50 mg tablet 50 mg PO DAILY PRN sexual activity 08/11/22 #10 tabs bisacodyl 5 mg tablet,delayed See Rx Instructions PO BEDTIME 30 08/12/22 release (Dulcolax (bisacodyl)) days #90 tabs polyethylene glycol 3350 17 gram 17 g PO BID #30 ea 08/12/22 oral powder packet (Miralax) simethicone 180 mg capsule 180 mg PO TID #90 caps 08/12/22 metformin 500 mg tablet 1,000 mg PO BID 90 days #360 tabs 09/08/22 docusate sodium 100 mg capsule 100 mg PO BID #60 caps 09/13/22 cholecalciferol (vitamin D3) 25 25 mcg PO DAILY #90 caps 11/03/22 mcg (1,000 unit) capsule Tresiba FlexTouch U-200 200 30 unit (0.15 mL) subcut DAILY 90 11/11/22 unit/mL (3 mL) subcutaneous pen days #9 mL (insulin degludec) peg 3350-electrolytes 236 240 ml PO Q10M 1 day #4,000 mL 11/11/22 gram-22.74 gram-6.74 gram-5.86 gram solution (Golytely) linaclotide 290 mcg capsule 290 mcg PO QAM 30 days #30 caps 12/26/22 (Linzess) atorvastatin 10 mg tablet 10 mg PO DAILY #90 tabs 12/29/22 blood sugar diagnostic (FreeStyle #100 ea 01/01/23 Lite Strips) Allergies Allergy/AdvReac Type Severity Reaction Status Date / Time No Known Allergies Allergy Verified 01/04/23 14:41 [No Known Allergies*] Review of Systems Review of Systems: Yes all other systems are reviewed and are negative [facility] Past Medical History Medical History Benign essential hypertension Bowel obstruction Chronic idiopathic constipation Chronic kidney disease (CKD), stage III (moderate) Diabetes type 2, uncontrolled Diabetic polyneuropathy associated with 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 mellitus Dyslipidemia Elevated LFTs Gastroenteritis Healed wound Hospital discharge follow-up 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 mellitus Knee osteoarthritis Knee pain, bilateral 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 Melena Morbid obesity Obesity (BMI 30-39.9) Pain in both feet Pure hypercholesterolemia Right hand pain Schizo affective schizophrenia Schizoaffective disorder Type 2 diabetes mellitus with diabetic chronic kidney disease Surgical History History of repair of congenital cleft palate Hx of circumcision Family History Family History Father HTN (hypertension) Mother Diabetes Other Mental health problem Social History Social History Household Members: None Housing: Apartment Do you presently have visiting nurse or other home services: Yes Alcohol intake: current Alcohol intake frequency: does not drink Alcohol type: beer, wine and hard liquor Patient Tobacco Use Status: Former Tobacco user Tobacco use type: Cigarette Cigarettes Per Day: 15 Years Smoked: 8 quit 30 years ago e-Cigarette/Vaping Use: Never Used Second Hand Smoke Exposure: No Advance Directives: No Advance Directives Information Provided: Yes service: No Current occupational status: employed Current occupation: [employer] Cognitive needs: No Hearing needs: No Vision needs: Yes (glasses) Physical Exam ED Vital Signs: Vital Signs - 24 hr 01/04/23 14:42 Temperature 98 F Pulse Rate 96 Respiratory Rate 18 Blood Pressure 124/88 Pulse Oximetry 98 Oxygen Delivery Method Room Air BMI result Body Mass Index 35.5 Appearance: Alert. Oriented X3. No acute distress. Eyes: PERRLA, No Nystagmus ENT: Pharynx normal. Oral Mucosa moist Neck: Normal inspection. Neck supple. CVS: Normal heart rate and rhythm. Pulses normal. Respiratory: No respiratory distress. Equal air entry bilateral, no wheezing/rales/rhonchi Abdomen: Soft and nontender. Bowel sounds are present, no mass palpable, no CVA tenderness Skin: Skin warm and dry. Normal skin color. Normal skin turgor. Extremities: No lower extremity edema. No calf tenderness Neuro: Oriented X 3. No motor deficit. Course Course Course Narrative: RME: 62yo M w/PMHx DM on Tresiba, Metformin and Jardia, CKD, HLD, OA, HLD, c/o elevated blood sugars at home in 300's w/assoc polyuria and polydipsia. Labs, UA ordered Full HPI, ROS and PE to be performed by primary ED provider. Medical Decision Making Medical Decision Making MDM Narrative: Patient diabetic on insulin, metformin and Jardiance [id number] the range of 6.3- 6.9 comes here for increased blood sugar blood sugar on arrival was 129. Blood sugar increases after meals. Patient advised to increase dose of Tresiba to 36 units and follow with residential energy auditor drink plenty of fluids exercise and diet restriction Lab Data MDM Lab Attestation statement: I reviewed the patient's lab results. 01/04/23 15:26 01/04/23 15:26 Labs: Lab Results 01/04/23 01/04/23 01/04/23 Range/Units 15:26 15: 15:58 WBC 7.3 (4.8-10.8) X10*3/uL RBC 5.20 (4.60-5.80) X10*6/uL Hgb 15.4 (14.0-18.0) g/dl Hct 43.4 (42.0-52.0) % MCV 83.5 (80.0-98.0) fL MCH 29.6 (27.0-33.0) pg MCHC 35.5 (31.0-36.0) g/dl RDW 12.9 (11.0-16.0) % Plt Count 121 L (160-400) X10*3/uL MPV 10.4 (9.4-12.4) fL Immature Gran % (Auto) 0.6 H (0.0-0.4) % Neut % (Auto) 68.4 (45-73) % Lymph % (Auto) 22.6 (20-40) % [place] % (Auto) 8.4 (2-11) % Eos % (Auto) 0.0 (0-4) % Baso % (Auto) 0.0 (0-2) % Lymph # (Auto) 1.6 (1.2-4.9) X10*3/uL [place] # (Auto) 0.6 (0.1-1.2) X10*3/uL Eos # (Auto) 0.0 (0.0-0.4) X10*3/uL Baso # (Auto) 0.0 (0.0-0.2) X10*3/uL Abs Immat Gran (auto) 0.04 H (0.00-0.03) X10*3/uL Absolute Neuts (auto) 5.0 (2.0-8.3) x10*3/uL Absolute Nucleated RBC 0.000 (0.0-0.012) X10*3/uL Nucleated RBC % (auto) 0.0 (0.0-0.2) /100WBC Sodium 142 (135-145) mmol/L Potassium 4.1 (3.3-5.1) mmol/L Chloride 109 H (96-108) mmol/L Carbon Dioxide 24 (22-29) mmol/L Anion Gap 13 (12-20) BUN 18 H (9-16) mg/dL Creatinine 1.24 (0.5-1.4) mg/dL Estim Creat Clear Calc 86.6 Estimated GFR 59 POC Glucose 129 H (60-115) mg/dL Random Glucose 151 H (60-115) mg/dL Calcium 9.6 (8.4-10.2) mg/dL Total Bilirubin 0.5 (0.0-1.0) mg/dL Direct Bilirubin 0.1 (0.0-0.5) mg/dL AST 29 (5-37) U/L ALT 62 H (0-40) U/L Alkaline Phosphatase 136 H (39-117) U/L Total Protein 7.1 (6.5-8.0) g/dL Albumin 4.3 (3.5-5.0) g/dL Lipase 29 (8-78) U/L Urine Color Urine Appearance Urine pH (5.0-9.0) Ur Specific [place] (1.005-1.025) Urine Protein (Neg-Trace) mg/dL Urine Glucose (UA) (Negative) mg/dL Urine Ketones (Negative) mg/dL Urine Blood (Negative) Urine Nitrite (Negative) Ur Leukocyte Esterase (Negative) Urine RBC (0-2) /HPF Urine WBC (0-5) /HPF Ur Squamous Epith Cells (0-2) /HPF Urine Bacteria (None Seen) Hyaline Casts (0-2) /LPF 01/04/23 Range/Units 16:15 WBC (4.8-10.8) X10*3/uL RBC (4.60-5.80) X10*6/uL Hgb (14.0-18.0) g/dl Hct (42.0-52.0) % MCV (80.0-98.0) fL MCH (27.0-33.0) pg MCHC (31.0-36.0) g/dl RDW (11.0-16.0) % Plt Count (160-400) X10*3/uL MPV (9.4-12.4) fL Immature Gran % (Auto) (0.0-0.4) % Neut % (Auto) (45-73) % Lymph % (Auto) (20-40) % [place] % (Auto) (2-11) % Eos % (Auto) (0-4) % Baso % (Auto) (0-2) % Lymph # (Auto) (1.2-4.9) X10*3/uL [place] # (Auto) (0.1-1.2) X10*3/uL Eos # (Auto) (0.0-0.4) X10*3/uL Baso # (Auto) (0.0-0.2) X10*3/uL Abs Immat Gran (auto) (0.00-0.03) X10*3/uL Absolute Neuts (auto) (2.0-8.3) x10*3/uL Absolute Nucleated RBC (0.0-0.012) X10*3/uL Nucleated RBC % (auto) (0.0-0.2) /100WBC Sodium (135-145) mmol/L Potassium (3.3-5.1) mmol/L Chloride (96-108) mmol/L Carbon Dioxide (22-29) mmol/L Anion Gap (12-20) BUN (9-16) mg/dL Creatinine (0.5-1.4) mg/dL Estim Creat Clear Calc Estimated GFR POC Glucose (60-115) mg/dL Random Glucose (60-115) mg/dL Calcium (8.4-10.2) mg/dL Total Bilirubin (0.0-1.0) mg/dL Direct Bilirubin (0.0-0.5) mg/dL AST (5-37) U/L ALT (0-40) U/L Alkaline Phosphatase (39-117) U/L Total Protein (6.5-8.0) g/dL Albumin (3.5-5.0) g/dL Lipase (8-78) U/L Urine Color Yellow Urine Appearance Clear Urine pH 5.5 (5.0-9.0) Ur Specific [place] 1.020 (1.005-1.025) Urine Protein Negative (Neg-Trace) mg/dL Urine Glucose (UA) >=1000 H (Negative) mg/dL Urine Ketones Negative (Negative) mg/dL Urine Blood Negative (Negative) Urine Nitrite Negative (Negative) Ur Leukocyte Esterase Negative (Negative) Urine RBC 0-2 (0-2) /HPF Urine WBC 0-5 (0-5) /HPF Ur Squamous Epith Cells 0-2 (0-2) /HPF Urine Bacteria None Seen (None Seen) Hyaline Casts 0-2 (0-2) /LPF Discharge Plan Discharge Clinical Impression: Controlled diabetes mellitus with hyperglycemia, with long-term current use of insulin Patient Disposition: Home, Self-Care Instructions: Diabetic Hyperglycemia (ED) Additional Instructions: Drink plenty of water Diet restrictions as advised Do exercise Increased dose of de icer finisher to 36 units every day Check your sugar before taking insulin and night time should be less than 200 Follow-up with residential energy auditor Prescriptions: No Action lidocaine 5 % adhesive patch,medicated 2 patch topical DAILY PRN (Reason: pain) Qty: 30 1RF Rx Instructions: leave on most painful area for up to 12 hrs lidocaine [Aspercreme (lidocaine)] 4 % adhesive patch,medicated 2 patch topical DAILY PRN (Reason: pain) Qty: 30 1RF (DME) blood-glucose meter [FreeStyle Lite Meter] Kit See Rx Instructions .Route Qty: 1 0RF Rx Instructions: Tests 4 X/day (DME) lancets [FreeStyle Lancets] 28 gauge misc See Rx Instructions .Route Qty: 100 4RF Rx Instructions: Tests 5x/day Jardiance 25 mg tablet 25 mg PO QAM Qty: 30 3RF sennosides [senna] 8.6 mg tablet 17.2 mg PO BEDTIME PRN (Reason: for constipation) Qty: 60 5RF Fiber Therapy (m-cellulose) 500 mg tablet 1,000 mg PO TID Qty: 180 5RF metformin 500 mg tablet 1,000 mg PO BID 90 Days Qty: 360 1RF docusate sodium 100 mg capsule 100 mg PO BID Qty: 60 4RF cholecalciferol (vitamin D3) 25 mcg (1,000 unit) capsule 25 mcg PO DAILY Qty: 90 12RF Linzess 290 mcg capsule 290 mcg PO QAM 30 Days Qty: 30 6RF atorvastatin 10 mg tablet 10 mg PO DAILY Qty: 90 0RF (DME) FreeStyle Lite Strips Strip See Rx Instructions .Route Qty: 100 5RF Rx Instructions: Tests 5X/day benztropine 0.5 mg tablet 0.5 mg PO BID hydroxyzine pamoate 50 mg capsule 50 mg PO TID PRN (Reason: Anxiety) meclizine 25 mg tablet 25 mg PO QID PRN (Reason: dizziness) Qty: 20 0RF furosemide 20 mg tablet 20 mg PO DAILY Qty: 90 1RF gabapentin 300 mg capsule 300 mg PO BEDTIME 90 Days Qty: 90 1RF sildenafil 50 mg tablet 50 mg PO DAILY PRN (Reason: sexual activity) Qty: 10 0RF Rx Instructions: administer 30 minutes to 4 hours before activity peg 3350-electrolytes [Golytely] 236-22.74-6.74 -5.86 gram recon soln 240 ml PO Q10M 1 Days Qty: 4000 0RF Rx Instructions: until fecal effluent is clear; do not exceed a total volume of 2,000 mL Tresiba FlexTouch U-200 200 unit/mL (3 mL) insulin pen 30 unit subcut DAILY 90 Days Qty: 9 3RF clozapine 100 mg tablet 100 mg PO TID Digestive Advantage Advanced 10 billion cell capsule PO (DME) pen needle, diabetic [BD Ultra-Fine Orig Pen Needle] 29 gauge x 1/2 needle See Rx Instructions .ROUTE DAILY Qty: 100 3RF Rx Instructions: As directed daily polyethylene glycol 3350 [Miralax] 17 gram powder in packet 17 g PO BID Qty: 30 6RF Hold Instructions: Doctor's Order bisacodyl [Dulcolax (bisacodyl)] 5 mg tablet,delayed release (DR/EC) See Rx Instructions PO BEDTIME 30 Days Qty: 90 6RF Rx Instructions: 2 tabs qhs and 1 qam PO bedtime; simethicone 180 mg capsule 180 mg PO TID Qty: 90 2RF Referrals: Graham Ovalles MD [Physician] - 1 week
[2023-01-04 14:42] VITALS: BP 124/88; PULSE 96; RESP 18; TEMP 36.6; O2SAT 98; BMI 35.5
[2023-01-04 15:29] LABS: MANUAL DIFF FLAG NO
[2023-01-04 15:38] LABS: Hematocrit 43.4 % (42.0-52.0); Hemoglobin 15.4 g/dl (14.0-18.0); Imm Gran Abs Auto 0.04 X10*3/uL (0.00-0.03); Imm Gran Pct Auto 0.6 % (0.0-0.4); Lymphocytes Absolute Auto 1.6 X10*3/uL (1.2-4.9); Lymphocytes Percent Auto 22.6 % (20-40); Mean Corpuscular HGB Conc 35.5 g/dl (31.0-36.0); Mean Corpuscular Hemoglobin 29.6 pg (27.0-33.0); Mean Corpuscular Volume 83.5 fL (80.0-98.0); Mean Platelet Volume 10.4 fL (9.4-12.4); Monocytes Absolute Auto 0.6 X10*3/uL (0.1-1.2); Monocytes Percent Auto 8.4 % (2-11); Neutrophils Percent Auto 68.4 % (45-73); Platelet Count 121 X10*3/uL (160-400); Red Cell Distribution Width 12.9 % (11.0-16.0); White Blood Count 7.3 X10*3/uL (4.8-10.8)
[2023-01-04 16:04] LABS: Alanine Aminotransferase 62 U/L (0-40); Albumin Level 4.3 g/dL (3.5-5.0); Alkaline Phosphatase 136 U/L (39-117); Anion Gap 13 (12-20); Aspartate Amino Transferase 29 U/L (5-37); Bilirubin Direct 0.1 mg/dL (0.0-0.5); Bilirubin Total 0.5 mg/dL (0.0-1.0); Blood Urea Nitrogen 18 mg/dL (9-16); Calcium 9.6 mg/dL (8.4-10.2); Carbon Dioxide 24 mmol/L (22-29); Chloride 109 mmol/L (96-108); Creatinine Clr Calc Pharmacy 86.6; Estimated Glomerular Filt Rate 59; Glucose Random 151 mg/dL (60-115); Lipase 29 U/L (8-78); Potassium 4.1 mmol/L (3.3-5.1); Sodium 142 mmol/L (135-145); Total Protein 7.1 g/dL (6.5-8.0)
[2023-01-04 16:20] LABS: Glucose, Whole Blood 129 mg/dL (60-115)
[2023-01-04 16:21] LABS: Appearance Urine Clear; Color Urine Yellow; Glucose Urine UA >=1000 mg/dL (Negative); Leukocyte Esterase Urine Negative (Negative); Nitrite Urine Negative (Negative); PH 5.5 (5.0-9.0); UMIC TRIGGER UACC YES; Urine Blood Negative (Negative); Urine Ketones Negative (Negative); Urine Protein Negative (Neg-Trace)
[2023-01-04 16:25] LABS: Bacteria Urine None Seen (None Seen); Hyaline Casts Urine 0-2 /LPF (0-2); RBC Urine 0-2 /HPF (0-2); Squamous Epithelial Cell Urine 0-2 /HPF (0-2); WBC Urine 0-5 /HPF (0-5)
[2023-01-04 20:59] LABS: Acetone, serum QL Negative (Negative)
[2023-01-05 05:29] LABS: Estimated Average Glucose 146 mg/dL; Hemoglobin A1c % 6.7 %
== END 2023-01-04 18:25 | disposition home or self-care (01) ==
PROVIDERS: Physician Assistant; Emergency Provider Internal Medicine; PCP Internal Medicine
DX: E11.65 Type 2 diabetes mellitus with hyperglycemia (principal); E11.22 Type 2 diabetes mellitus with diabetic chronic kidney disease; I12.9 Hypertensive chronic kidney disease with stage 1 through stage 4 chronic kidney disease, or unspecified chronic kidney disease; N18.30 Chronic kidney disease, stage 3 unspecified; E78.5 Hyperlipidemia, unspecified; Z79.899 Other long term (current) drug therapy; Z79.02 Long term (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 of antithrombotics/antiplatelets; Z79.4 Long term (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
CPT/HCPCS: 36415; 80048; 80076; 81001; 82009; 82947; 83036; 83690; 85025; 99283

== ENCOUNTER 2023-01-05 13:16 | Emergency (ER) | payer OTHER, MEDICAID, SELFPAY ==
--- NOTE | 2023-01-05 13:30 | ED_ITS ---
HPI - Abdominal Pain General Chief Complaint: Nausea/Vomiting/Diarrhea Stated Complaint: Blood in stool Time Seen by Provider: 01/05/23 18:23 Source: patient Mode of arrival: ambulatory Limitations: no limitations History of Present Illness HPI narrative: 62-year-old male PMHx significant for CKD, HTN, dm, HLD, morbid obesity, schizoaffective disorder, patient has been having nonbloody watery diarrhea for the past 3 days today notice 1 bright red blood watery diarrhea bowel movement, slight diffuse abdominal cramps that patient attributes to his feeling of hunger. Patient is not on AC. Decline any dizziness, no CP, no SOB, no fever, no chills. Related Data Home Medications Medication Instructions Recorded Confirmed hydroxyzine pamoate 50 mg capsule 50 mg PO TID PRN Anxiety 09/18/20 11/11/22 benztropine 0.5 mg tablet 0.5 mg PO BID 04/29/22 11/11/22 L.acidoph, paracasei,B. lactis 10 cell PO 05/12/22 11/11/22 billion cell capsule (Digestive Advantage Advanced Probiotic) clozapine 100 mg tablet 100 mg PO TID 05/12/22 11/11/22 Previous Rx's Medication Instructions Recorded lidocaine 5 % topical patch 2 patch topical DAILY PRN pain #30 01/11/22 ea meclizine 25 mg tablet 25 mg PO QID PRN dizziness #20 tabs 01/19/22 lidocaine 4 % topical patch 2 patch topical DAILY PRN pain #30 01/20/22 (Aspercreme (lidocaine)) ea pen needle, diabetic 29 gauge x #100 ea 02/02/2208/15 (BD Ultra-Fine Original Pen Needle) blood-glucose meter (FreeStyle #1 ea 02/18/22 Lite Meter kit) lancets 28 gauge (FreeStyle #100 ea 03/13/22 Lancets) empagliflozin 25 mg tablet 25 mg PO QAM #30 tabs 05/25/22 (Jardiance) methylcellulose (laxative) 500 mg 1,000 mg PO TID #180 tabs 07/13/22 tablet (Fiber Therapy (methylcellulose)) sennosides 8.6 mg tablet (senna) 17.2 mg PO BEDTIME PRN for 07/13/22 constipation #60 tabs furosemide 20 mg tablet 20 mg PO DAILY #90 tabs 08/11/22 gabapentin 300 mg capsule 300 mg PO BEDTIME 90 days #90 caps 08/11/22 sildenafil 50 mg tablet 50 mg PO DAILY PRN sexual activity 08/11/22 #10 tabs bisacodyl 5 mg tablet,delayed See Rx Instructions PO BEDTIME 30 08/12/22 release (Dulcolax (bisacodyl)) days #90 tabs polyethylene glycol 3350 17 gram 17 g PO BID #30 ea 08/12/22 oral powder packet (Miralax) simethicone 180 mg capsule 180 mg PO TID #90 caps 08/12/22 metformin 500 mg tablet 1,000 mg PO BID 90 days #360 tabs 09/08/22 docusate sodium 100 mg capsule 100 mg PO BID #60 caps 09/13/22 cholecalciferol (vitamin D3) 25 25 mcg PO DAILY #90 caps 11/03/22 mcg (1,000 unit) capsule Tresiba FlexTouch U-200 200 30 unit (0.15 mL) subcut DAILY 90 11/11/22 unit/mL (3 mL) subcutaneous pen days #9 mL (insulin degludec) peg 3350-electrolytes 236 240 ml PO Q10M 1 day #4,000 mL 11/11/22 gram-22.74 gram-6.74 gram-5.86 gram solution (Golytely) linaclotide 290 mcg capsule 290 mcg PO QAM 30 days #30 caps 12/26/22 (Linzess) atorvastatin 10 mg tablet 10 mg PO DAILY #90 tabs 12/29/22 blood sugar diagnostic (FreeStyle #100 ea 01/01/23 Lite Strips) Allergies Allergy/AdvReac Type Severity Reaction Status Date / Time No Known Allergies Allergy Verified 01/04/23 14:41 [No Known Allergies*] Review of Systems Review of Systems All other systems are reviewed and are negative Constitutional: Reports as per HPI and Reports no additional constitutional complaints Eyes: Reports as per HPI and Reports no additional eye complaints Reports system reviewed and no additional complaints, except as documented Cardiovascular: Reports as per HPI and Reports no additional cardiovascular complaints Respiratory: Reports as per HPI and Reports no additional respiratory complaints Gastrointestinal: Reports as per HPI and Reports no additional gastrointestinal complaints Genitourinary: Reports no additional female genitourinary complaints Musculoskeletal: Reports no additional musculoskeletal complaints Skin/Breast: Reports system reviewed and no additional complaints, except as doc u Psychiatric: Reports no additional psychiatric complaints Endocrine: Reports no additional endocrine complaints Hematologic/Lymphatic: Reports no additional hematologic/lymphatic complaints Allergic/Immunologic: Reports no additional allergic/immunologic complaints Reports system reviewed and no additional complaints, except as documented and Reports Abnormal speech present [facility] Past Medical History Medical History Benign essential hypertension Bowel obstruction Chronic idiopathic constipation Chronic kidney disease (CKD), stage III (moderate) Diabetes type 2, uncontrolled Diabetic polyneuropathy associated with 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 mellitus Dyslipidemia Elevated LFTs Gastroenteritis Healed wound Hospital discharge follow-up 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 mellitus Knee osteoarthritis Knee pain, bilateral intermediate (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 Melena Morbid obesity Obesity (BMI 30-39.9) Pain in both feet Pure hypercholesterolemia Right hand pain Schizo affective schizophrenia Schizoaffective disorder Type 2 diabetes mellitus with diabetic chronic kidney disease Surgical History History of repair of congenital cleft palate Hx of circumcision Family History Family History Father HTN (hypertension) Mother Diabetes Other Mental health problem Social History Social History Household Members: None Housing: Apartment Do you presently have visiting nurse or other home services: Yes Alcohol intake: former Patient Tobacco Use Status: Former Tobacco user Tobacco use type: Cigarette Cigarettes Per Day: 15 Years Smoked: 8 quit 30 years ago Smoked in Last 30 Days: No e-Cigarette/Vaping Use: Never Used Second Hand Smoke Exposure: No Use of substances other than those prescribed or required for medical reasons: No Advance Directives: No Advance Directives Information Provided: No service: No Current occupational status: employed Current occupation: [employer] Cognitive needs: No Hearing needs: No Vision needs: Yes (glasses) Physical Exam ED Vital Signs: Vital Signs - 24 hr 01/05/23 13:31 01/05/23 18:00 01/05/23 18:05 Temperature 98 F 97.6 F 98.1 F Pulse Rate 98 84 91 Respiratory Rate 16 16 18 Blood Pressure 117/83 116/78 116/78 Pulse Oximetry 97 98 97 Oxygen Delivery Method Room Air Room Air Room Air BMI result Body Mass Index 35.4 Vital signs have been reviewed as appeared to be correct. Blood pressure normal. Heart rate normal. Respiration rate normal. Temperature normal. Oxygen saturation normal. Appearance: Alert. Oriented X3. No acute distress. Head: Normal external exam. Normocephalic. Atraumatic. No Calvin signs noted. No raccoon eyes noted Eyes: PERRLA. EOMI. Conjunctiva and sclera normal. Eyelids normal. ENT: TM's Normal. Pharynx normal. Uvula midline. Moist mucous membranes. No trismus noted. No drooling noted. No muffled voice noted. Neck: Normal inspection. Neck supple. FROM. No adenopathy. Thyroid Normal. No meningeal signs. No neck mass noted. CVS: Normal heart rate and rhythm. Heart sound normal. No murmurs noted. Pulses normal throughout. Respiratory: No respiratory distress. Painless inspiration. Breath sounds normal. No wheezes/rales/rhonchi noted. Chest nontender. No accessory muscle usage noted or decreased air movement noted. Abdomen: Soft and nontender. Bowel sounds normal in all 4 quadrants. No distention noted. No organomegaly noted. No visible injury noted. Rectal exam: Brown stool guaiac negative, no visible blood in the rectal vault. Back: No CVA tenderness. Full range of motion noted. Skin: Skin warm and dry. Normal skin color. Normal skin turgor. No rashes/lesions/lacerations noted. Extremities: No lower extremity edema. Extremities exhibit normal range of motion. Extremities nontender. Neuro: Oriented X 3. Cranial nerve exam: II-XII are grossly intact No motor deficit. No sensory deficit. Reflexes normal. Course Course Course Narrative: This is a rapid medical exam. deferred additional HPI, ROS, PE to primary provider. 62yo male hx of DM, obesity, chronic constipation, HLD, schiz oaffective disorder, CKD, chronically elevated LFTs?here with bloody diarrhea for 30 minutes. Patient reports I am cleaning myself out and have had diarrhea since yesterday. Here d/t concern for bloody diarrhea. Will obtain labs, UA VSS Reevaluation(s) Reevaluation #1: 62-year-old male came in for bloody diarrhea, patient has stable vital signs, stable H&H, physical exam is not revealing any abdominal tenderness or blood in the rectum, patient is hungry asking for food able to tolerate p.o. intake in the emergency department will discharge the patient to follow-up with PCP/GI if required as per PCP. Time: 20:10 Medical Decision Making Differential Diagnosis Differential Diagnoses: The differential diagnosis associated with the presentation includes (Rectal bleed, severe anemia, hemodynamic instability, electrolytes abnormalities, coagulopathy.) Admission/Observation Consideration of admission/observation: Escalation of care including admission/observation considered Lab Data MDM Lab Attestation statement: I reviewed the patient's lab results. 01/05/23 13:39 01/05/23 13:39 Labs: Lab Results 01/05/23 01/05/23 01/05/23 Range/Units 13:39 13:39 13:39 WBC 7.9 (4.8-10.8) X10*3/uL RBC 5.25 (4.60-5.80) X10*6/uL Hgb 15.7 (14.0-18.0) g/dl Hct 44.3 (42.0-52.0) % MCV 84.4 (80.0-98.0) fL MCH 29.9 (27.0-33.0) pg MCHC 35.4 (31.0-36.0) g/dl RDW 12.9 (11.0-16.0) % Plt Count 113 L (160-400) X10*3/uL MPV 10.1 (9.4-12.4) fL Immature Gran % (Auto) 0.5 H (0.0-0.4) % Neut % (Auto) 79.1 H (45-73) % Lymph % (Auto) 12.1 L (20-40) % [place] % (Auto) 8.2 (2-11) % Eos % (Auto) 0.0 (0-4) % Baso % (Auto) 0.1 (0-2) % Lymph # (Auto) 1.0 L (1.2-4.9) X10*3/uL [place] # (Auto) 0.7 (0.1-1.2) X10*3/uL Eos # (Auto) 0.0 (0.0-0.4) X10*3/uL Baso # (Auto) 0.0 (0.0-0.2) X10*3/uL Abs Immat Gran (auto) 0.04 H (0.00-0.03) X10*3/uL Absolute Neuts (auto) 6.3 (2.0-8.3) x10*3/uL Absolute Nucleated RBC 0.000 (0.0-0.012) X10*3/uL Nucleated RBC % (auto) 0.0 (0.0-0.2) /100WBC PT 10.4 (10.0-13.1) SEC INR 0.9 (0.9-1.1) Sodium 140 (135-145) mmol/L Potassium 4.0 (3.3-5.1) mmol/L Chloride 109 H (96-108) mmol/L Carbon Dioxide 21 L (22-29) mmol/L Anion Gap 14 (12-20) BUN 19 H (9-16) mg/dL Creatinine 1.37 (0.5-1.4) mg/dL Estim Creat Clear Calc 78.3 Estimated GFR 53 Random Glucose 287 H (60-115) mg/dL Calcium 9.4 (8.4-10.2) mg/dL Total Bilirubin 0.6 (0.0-1.0) mg/dL Direct Bilirubin 0.1 (0.0-0.5) mg/dL AST 41 H (5-37) U/L ALT 82 H (0-40) U/L Alkaline Phosphatase 148 H (39-117) U/L Total Protein 7.2 (6.5-8.0) g/dL Albumin 4.2 (3.5-5.0) g/dL Stool Occult Blood (NEGATIVE) 01/05/23 Range/Units 18:35 WBC (4.8-10.8) X10*3/uL RBC (4.60-5.80) X10*6/uL Hgb (14.0-18.0) g/dl Hct (42.0-52.0) % MCV (80.0-98.0) fL MCH (27.0-33.0) pg MCHC (31.0-36.0) g/dl RDW (11.0-16.0) % Plt Count (160-400) X10*3/uL MPV (9.4-12.4) fL Immature Gran % (Auto) (0.0-0.4) % Neut % (Auto) (45-73) % Lymph % (Auto) (20-40) % Vermillion % (Auto) (2-11) % Eos % (Auto) (0-4) % Baso % (Auto) (0-2) % Lymph # (Auto) (1.2-4.9) X10*3/uL [place] # (Auto) (0.1-1.2) X10*3/uL Eos # (Auto) (0.0-0.4) X10*3/uL Baso # (Auto) (0.0-0.2) X10*3/uL Abs Immat Gran (auto) (0.00-0.03) X10*3/uL Absolute Neuts (auto) (2.0-8.3) x10*3/uL Absolute Nucleated RBC (0.0-0.012) X10*3/uL Nucleated RBC % (auto) (0.0-0.2) /100WBC PT (10.0-13.1) SEC INR (0.9-1.1) Sodium (135-145) mmol/L Potassium (3.3-5.1) mmol/L Chloride (96-108) mmol/L Carbon Dioxide (22-29) mmol/L Anion Gap (12-20) BUN (9-16) mg/dL Creatinine (0.5-1.4) mg/dL Estim Creat Clear Calc Estimated GFR Random Glucose (60-115) mg/dL Calcium (8.4-10.2) mg/dL Total Bilirubin (0.0-1.0) mg/dL Direct Bilirubin (0.0-0.5) mg/dL AST (5-37) U/L ALT (0-40) U/L Alkaline Phosphatase (39-117) U/L Total Protein (6.5-8.0) g/dL Albumin (3.5-5.0) g/dL Stool Occult Blood NEGATIVE (NEGATIVE) Discharge Plan Discharge Clinical Impression: Diarrhea Patient Disposition: Home, Self-Care Instructions: Acute Diarrhea (ED) Prescriptions: No Action lidocaine 5 % adhesive patch,medicated 2 patch topical DAILY PRN (Reason: pain) Qty: 30 1RF Rx Instructions: leave on most painful area for up to 12 hrs lidocaine [Aspercreme (lidocaine)] 4 % adhesive patch,medicated 2 patch topical DAILY PRN (Reason: pain) Qty: 30 1RF (DME) blood-glucose meter [FreeStyle Lite Meter] Kit See Rx Instructions .Route Qty: 1 0RF Rx Instructions: Tests 4 X/day (DME) lancets [FreeStyle Lancets] 28 gauge misc See Rx Instructions .Route Qty: 100 4RF Rx Instructions: Tests 5x/day Jardiance 25 mg tablet 25 mg PO QAM Qty: 30 3RF sennosides [senna] 8.6 mg tablet 17.2 mg PO BEDTIME PRN (Reason: for constipation) Qty: 60 5RF Fiber Therapy (m-cellulose) 500 mg tablet 1,000 mg PO TID Qty: 180 5RF metformin 500 mg tablet 1,000 mg PO BID 90 Days Qty: 360 1RF docusate sodium 100 mg capsule 100 mg PO BID Qty: 60 4RF cholecalciferol (vitamin D3) 25 mcg (1,000 unit) capsule 25 mcg PO DAILY Qty: 90 12RF Linzess 290 mcg capsule 290 mcg PO QAM 30 Days Qty: 30 6RF atorvastatin 10 mg tablet 10 mg PO DAILY Qty: 90 0RF (DME) FreeStyle Lite Strips Strip See Rx Instructions .Route Qty: 100 5RF Rx Instructions: Tests 5X/day benztropine 0.5 mg tablet 0.5 mg PO BID hydroxyzine pamoate 50 mg capsule 50 mg PO TID PRN (Reason: Anxiety) meclizine 25 mg tablet 25 mg PO QID PRN (Reason: dizziness) Qty: 20 0RF furosemide 20 mg tablet 20 mg PO DAILY Qty: 90 1RF gabapentin 300 mg capsule 300 mg PO BEDTIME 90 Days Qty: 90 1RF sildenafil 50 mg tablet 50 mg PO DAILY PRN (Reason: sexual activity) Qty: 10 0RF Rx Instructions: administer 30 minutes to 4 hours before activity peg 3350-electrolytes [Golytely] 236-22.74-6.74 -5.86 gram recon soln 240 ml PO Q10M 1 Days Qty: 4000 0RF Rx Instructions: until fecal effluent is clear; do not exceed a total volume of 2,000 mL Tresiba FlexTouch U-200 200 unit/mL (3 mL) insulin pen 30 unit subcut DAILY 90 Days Qty: 9 3RF clozapine 100 mg tablet 100 mg PO TID Digestive Advantage Advanced 10 billion cell capsule PO (DME) pen needle, diabetic [BD Ultra-Fine Orig Pen Needle] 29 gauge x 1/2 needle See Rx Instructions .ROUTE DAILY Qty: 100 3RF Rx Instructions: As directed daily polyethylene glycol 3350 [Miralax] 17 gram powder in packet 17 g PO BID Qty: 30 6RF Hold Instructions: Doctor's Order bisacodyl [Dulcolax (bisacodyl)] 5 mg tablet,delayed release (DR/EC) See Rx Instructions PO BEDTIME 30 Days Qty: 90 6RF Rx Instructions: 2 tabs qhs and 1 qam PO bedtime; simethicone 180 mg capsule 180 mg PO TID Qty: 90 2RF Referrals: Luis Manuel Garcia MD [Primary Care Provider] -
[2023-01-05 13:31] VITALS: BP 117/83; PULSE 98; RESP 16; TEMP 36.6; O2SAT 97; BMI 35.4
[2023-01-05 13:44] LABS: MANUAL DIFF FLAG NO
[2023-01-05 13:49] LABS: Basophils Percent Auto 0.1 % (0-2); Hematocrit 44.3 % (42.0-52.0); Hemoglobin 15.7 g/dl (14.0-18.0); Imm Gran Abs Auto 0.04 X10*3/uL (0.00-0.03); Imm Gran Pct Auto 0.5 % (0.0-0.4); Lymphocytes Percent Auto 12.1 % (20-40); Mean Corpuscular HGB Conc 35.4 g/dl (31.0-36.0); Mean Corpuscular Hemoglobin 29.9 pg (27.0-33.0); Mean Corpuscular Volume 84.4 fL (80.0-98.0); Mean Platelet Volume 10.1 fL (9.4-12.4); Monocytes Absolute Auto 0.7 X10*3/uL (0.1-1.2); Monocytes Percent Auto 8.2 % (2-11); Neutrophils Absolute Auto 6.3 x10*3/uL (2.0-8.3); Neutrophils Percent Auto 79.1 % (45-73); Platelet Count 113 X10*3/uL (160-400); Red Blood Count 5.25 X10*6/uL (4.60-5.80); Red Cell Distribution Width 12.9 % (11.0-16.0); White Blood Count 7.9 X10*3/uL (4.8-10.8)
[2023-01-05 13:55] LABS: INTERNATIONAL NORM RATIO 0.9 (0.9-1.1); Prothrombin Time 10.4 SEC (10.0-13.1)
[2023-01-05 14:02] LABS: Alanine Aminotransferase 82 U/L (0-40); Albumin Level 4.2 g/dL (3.5-5.0); Alkaline Phosphatase 148 U/L (39-117); Anion Gap 14 (12-20); Aspartate Amino Transferase 41 U/L (5-37); Bilirubin Direct 0.1 mg/dL (0.0-0.5); Bilirubin Total 0.6 mg/dL (0.0-1.0); Blood Urea Nitrogen 19 mg/dL (9-16); Calcium 9.4 mg/dL (8.4-10.2); Carbon Dioxide 21 mmol/L (22-29); Chloride 109 mmol/L (96-108); Creatinine Clr Calc Pharmacy 78.3; Estimated Glomerular Filt Rate 53; Glucose Random 287 mg/dL (60-115); Sodium 140 mmol/L (135-145); Total Protein 7.2 g/dL (6.5-8.0)
[2023-01-05 18:00] VITALS: BP 116/78; PULSE 84; RESP 16; TEMP 36.4; O2SAT 98
--- NOTE | 2023-01-05 18:04 | MHC.EDTECH ---
this pct just assumed care of pt ,vitals sign taken ,rn in room talking to patient .
[2023-01-05 18:05] VITALS: BP 116/78; PULSE 91; RESP 18; TEMP 36.7; O2SAT 97
--- NOTE | 2023-01-05 18:06 | PC.NURSE ---
Patient reports 3 days of diarrhea with dark blood noted in the stool starting today. Reports good po intake and appetite. Denies abdomial pain , positive bowel sounds x 4
--- NOTE | 2023-01-05 18:35 | MHC.EDTECH ---
DAISHA STOOL SAMPLE COLLECTED AND SENT TO LAB .
[2023-01-05 18:53] LABS: OBS Int Ctl Valid YES; OBS1 NEGATIVE (NEGATIVE)
[2023-01-05 20:00] VITALS: BP 116/75; PULSE 86; RESP 16; O2SAT 98
--- NOTE | 2023-01-05 20:18 | MHC.EDTECH ---
ROUNDING DONE ,1999 VITALS SIGN TAKEN ,URINE SAMPLE COLLECTED AND SENT TO LAB ,PT WAITING FOR DISCHARGED PAPER WORK .
[2023-01-05 20:31] LABS: Appearance Urine Clear; Color Urine Yellow; Glucose Urine UA >=1000 mg/dL (Negative); Leukocyte Esterase Urine Negative (Negative); Nitrite Urine Negative (Negative); PH 5.5 (5.0-9.0); Specific Gravity - Urine >= 1.030 (1.005-1.025); UMIC TRIGGER UACC YES; Urine Blood Negative (Negative); Urine Ketones Negative (Negative); Urine Protein Negative (Neg-Trace)
--- NOTE | 2023-01-05 20:35 | PC.NURSE ---
vss. skin pwd. pt ambulatory at discharge. pt provided with discharge plan. pt verbalized understanding of discharge plan
[2023-01-05 20:38] LABS: Bacteria Urine None Seen (None Seen); Hyaline Casts Urine 0-2 /LPF (0-2); RBC Urine 0-2 /HPF (0-2); Squamous Epithelial Cell Urine 0-2 /HPF (0-2); WBC Urine 0-5 /HPF (0-5)
== END 2023-01-05 20:36 | disposition home or self-care (01) ==
PROVIDERS: Nurse Practitioner Family; Emergency Provider Emergency Medicine; PCP Internal Medicine
DX: R19.7 Diarrhea, unspecified (principal); R11.2 Nausea with vomiting, unspecified; Z87.891 Personal history of nicotine dependence; Z79.899 Other long term (current) drug therapy
CPT/HCPCS: 36415; 80048; 80076; 81001; 82272; 85025; 85610; 99283; 99284

== ENCOUNTER 2023-01-11 07:44 | Outpatient (REF) | payer OTHER, SELFPAY ==
[2023-01-11 08:03] LABS: MANUAL DIFF FLAG NO
[2023-01-11 08:38] LABS: Hematocrit 45.9 % (42.0-52.0); Hemoglobin 15.7 g/dl (14.0-18.0); Imm Gran Abs Auto 0.03 X10*3/uL (0.00-0.03); Imm Gran Pct Auto 0.5 % (0.0-0.4); Lymphocytes Absolute Auto 1.5 X10*3/uL (1.2-4.9); Lymphocytes Percent Auto 24.4 % (20-40); Mean Corpuscular HGB Conc 34.2 g/dl (31.0-36.0); Mean Corpuscular Hemoglobin 29.6 pg (27.0-33.0); Mean Corpuscular Volume 86.4 fL (80.0-98.0); Mean Platelet Volume 10.4 fL (9.4-12.4); Monocytes Absolute Auto 0.6 X10*3/uL (0.1-1.2); Monocytes Percent Auto 9.8 % (2-11); Neutrophils Absolute Auto 3.9 x10*3/uL (2.0-8.3); Neutrophils Percent Auto 65.3 % (45-73); Platelet Count 124 X10*3/uL (160-400); Red Blood Count 5.31 X10*6/uL (4.60-5.80); Red Cell Distribution Width 13.2 % (11.0-16.0)
== END 2023-01-11 07:45 | disposition home or self-care (01) ==
LOC: HO.LABR 07:44
PROVIDERS: PCP Internal Medicine; Visit Provider Nurse Practitioner Psychiatric/Mental Health
DX: Z79.899 Other long term (current) drug therapy (principal)
CPT/HCPCS: 36415; 85025

== ENCOUNTER 2023-01-13 07:39 | Outpatient (REF) | payer OTHER, SELFPAY ==
[2023-01-13 08:52] LABS: Appearance Urine Clear; Color Urine Yellow; Glucose Urine UA >=1000 mg/dL (Negative); Leukocyte Esterase Urine Negative (Negative); Nitrite Urine Negative (Negative); PH 5.5 (5.0-9.0); Specific Gravity - Urine 1.015 (1.005-1.025); UMIC TRIGGER UACC YES; Urine Blood Negative (Negative); Urine Ketones Negative (Negative); Urine Protein Negative (Neg-Trace)
[2023-01-13 08:56] LABS: Bacteria Urine None Seen (None Seen); Hyaline Casts Urine 0-2 /LPF (0-2); RBC Urine 0-2 /HPF (0-2); Squamous Epithelial Cell Urine 0-2 /HPF (0-2); WBC Urine 0-5 /HPF (0-5)
[2023-01-13 09:03] LABS: Hematocrit 47.5 % (42.0-52.0); PLT CLUMP 1; SCAN SMEAR FLAG 1
[2023-01-13 09:05] LABS: Hemoglobin 16.6 g/dl (14.0-18.0); Imm Gran Abs Auto 0.02 X10*3/uL (0.00-0.03); Imm Gran Pct Auto 0.3 % (0.0-0.4); Lymphocytes Absolute Auto 1.4 X10*3/uL (1.2-4.9); Lymphocytes Percent Auto 20.6 % (20-40); Mean Corpuscular HGB Conc 34.9 g/dl (31.0-36.0); Mean Corpuscular Hemoglobin 29.7 pg (27.0-33.0); Mean Corpuscular Volume 85.1 fL (80.0-98.0); Mean Platelet Volume 10.1 fL (9.4-12.4); Monocytes Absolute Auto 0.5 X10*3/uL (0.1-1.2); Monocytes Percent Auto 6.7 % (2-11); Neutrophils Absolute Auto 4.9 x10*3/uL (2.0-8.3); Neutrophils Percent Auto 72.4 % (45-73); Red Blood Count 5.58 X10*6/uL (4.60-5.80); Red Cell Distribution Width 13.1 % (11.0-16.0)
[2023-01-13 09:07] LABS: Estimated Average Glucose 146 mg/dL; Hemoglobin A1c % 6.7 %
[2023-01-13 09:11] LABS: MANUAL DIFF FLAG NO; Platelet Count 123 X10*3/uL (160-400); White Blood Count 6.9 X10*3/uL (4.8-10.8)
[2023-01-13 09:58] LABS: Microalbumin Urine < 5.0 mg/L
[2023-01-13 10:01] LABS: Alanine Aminotransferase 65 U/L (0-40); Albumin Level 4.3 g/dL (3.5-5.0); Alkaline Phosphatase 150 U/L (39-117); Anion Gap 16 (12-20); Aspartate Amino Transferase 27 U/L (5-37); Bilirubin Total 0.7 mg/dL (0.0-1.0); Blood Urea Nitrogen 21 mg/dL (9-16); Calcium 9.7 mg/dL (8.4-10.2); Carbon Dioxide 21 mmol/L (22-29); Chloride 109 mmol/L (96-108); Cholesterol 157 mg/dL; Estimated Glomerular Filt Rate 53; Glucose Fasting 170 mg/dL (60-99); HDL Cholesterol 30 mg/dL; LDL Cholesterol Calculated 74 mg/dl; Potassium 4.2 mmol/L (3.3-5.1); Sodium 142 mmol/L (135-145); TSH reflex Free T4 2.01 uIU/mL (0.32-4.0); Total Protein 7.2 g/dL (6.5-8.0); Triglycerides 269 mg/dL; Vitamin D 25-OH Total 46.8 ng/mL (>30)
== END 2023-01-13 07:40 | disposition home or self-care (01) ==
LOC: HO.LAB 07:39
PROVIDERS: PCP Internal Medicine; Visit Provider Internal Medicine
DX: I10 Essential (primary) hypertension (principal); R30.0 Dysuria
CPT/HCPCS: 36415; 80053; 80061; 81001; 82043; 82306; 83036; 84443; 85025

== ENCOUNTER 2023-02-08 08:29 | Outpatient (REF) | payer OTHER, SELFPAY ==
[2023-02-08 08:46] LABS: MANUAL DIFF FLAG NO
[2023-02-08 09:23] LABS: Basophils Percent Auto 0.2 % (0-2); Hematocrit 45.1 % (42.0-52.0); Hemoglobin 15.7 g/dl (14.0-18.0); Imm Gran Abs Auto 0.03 X10*3/uL (0.00-0.03); Imm Gran Pct Auto 0.5 % (0.0-0.4); Lymphocytes Absolute Auto 1.5 X10*3/uL (1.2-4.9); Lymphocytes Percent Auto 24.1 % (20-40); Mean Corpuscular HGB Conc 34.8 g/dl (31.0-36.0); Mean Corpuscular Hemoglobin 29.3 pg (27.0-33.0); Mean Corpuscular Volume 84.3 fL (80.0-98.0); Mean Platelet Volume 10.7 fL (9.4-12.4); Monocytes Absolute Auto 0.5 X10*3/uL (0.1-1.2); Monocytes Percent Auto 8.6 % (2-11); Neut%MD 66.6 %; Neutrophils Absolute Auto 4.2 x10*3/uL (2.0-8.3); Neutrophils Percent Auto 66.6 % (45-73); Platelet Count 110 X10*3/uL (160-400); Red Blood Count 5.35 X10*6/uL (4.60-5.80); Red Cell Distribution Width 12.9 % (11.0-16.0); WBCANC 6.3 X10*3/uL; White Blood Count 6.3 X10*3/uL (4.8-10.8)
== END 2023-02-08 08:30 | disposition home or self-care (01) ==
LOC: HO.LABR 08:29
PROVIDERS: Visit Provider Nurse Practitioner Psychiatric/Mental Health
DX: Z79.899 Other long term (current) drug therapy (principal)
CPT/HCPCS: 36415; 85025

== ENCOUNTER 2023-02-24 10:06 | Outpatient (AMB) | payer OTHER, SELFPAY ==
--- NOTE | 2023-02-24 10:41 | A.OFFVIS_ITS ---
Intake Vital Signs 02/24/23 10:53 Height 6 ft 1 in Weight 272 lb BMI 35.9 BP 95/66 Blood Pressure Location Lt brachial Position Sitting Pulse 84 Intake Visit Reasons: 4 month follow up Intake Note: Patient follow up Patient cc: constipation and denies any GI issues. 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 He finds that what he eats really effects his bowels (not unsurprising) and we discuss this. He has stopped the Miralax and has adjusted his diet to include more vegetables and finds if he eats things like grilled cheese he will be more constipated. His BM's are still inconsistent, and he struggles with diet rosie r/t his income.? I printed out a high-fiber food list from our clinical nutrition site to help him navigate the role of fiber.? For example he likes to eat things like white bread and [place] fries and I inform him that trying to switch to things like sweet potato is and whole grain would help him move his bowels better.? Right now his only understanding of fiber is to eat lettuce.? His fiber intake may also be limited by the fact that he is relatively edentulous. He continues on his LInzess 290, senna, and fiber pills. The MOM may not be covered by his insurance, he is using the [employer] generic brand.? He also continues on his Reglan 5 mg 3 times a day to promote gastric emptying and overall GI motility.? He is a diabetic and is morbidly obese. ROV 4 mos. (2) Delayed gastric emptying: ?Code(s): K30 - Functional dyspepsia ? ? ? Medications: Refilled magnesium hydroxid e (Milk of Magnesi a) 20 mL? PO BEDTIME 355 mL 6RF ? ? On Hold magnesium citrate ?? Hold Comment:? Doctor's Order ?DRINK 1/2 bottle if no BM after 30 mins drink 1/2 and continue? until 2 bottles drank or have a BM PO daily ;? 300 mL 3RF K59.04 - Chronic i diopathic constipa tion ? polyethylene glyco l 3350 (Miralax) ? ? Hold Comment:? D octor's Order 17 grams? PO BID 3 0 ea 6RF ? TODAY'S VISIT He has been doing well recently. He continues on his LInzess 290, senna, and fiber pills. The MOM may not be covered by his insurance, he is using the [employer] generic brand.? He also continues on his Reglan 5 mg 3 times a day to promote gastric emptying and overall GI motility.? He is a diabetic and is morbidly obese. He already has his colonoscopy scheduled and his follow-up appointment so we will just keep this for next appointment. Keep rov 03/25. [facility] Medical History Benign essential hypertension Bowel obstruction Chronic idiopathic constipation Chronic kidney disease (CKD), stage III (moderate) Diabetes type 2, uncontrolled Diabetic polyneuropathy associated with 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 mellitus Dyslipidemia Elevated LFTs Gastroenteritis Healed wound Hospital discharge follow-up 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 mellitus Knee osteoarthritis Knee pain, bilateral FCI (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 Melena Morbid obesity Obesity (BMI 30-39.9) Pain in both feet Pure hypercholesterolemia Right hand pain Schizo affective schizophrenia Schizoaffective disorder Type 2 diabetes mellitus with diabetic chronic kidney disease Surgical History History of repair of congenital cleft palate Hx of circumcision Family History Father HTN (hypertension) Mother Diabetes Other Mental health problem Social History Household Members: None Housing: Apartment Are you a primary intensive care anaesthetist to a significant other at home: No Do you presently have visiting nurse or other home services: Yes Alcohol intake: former Patient Tobacco Use Status: Former Tobacco user Tobacco use type: Cigarette Cigarettes Per Day: 15 Years Smoked: 8 quit 30 years ago e-Cigarette/Vaping Use: Never Used Second Hand Smoke Exposure: No Have you been hit, kicked, punched, or otherwise hurt by someone within the past year? If so, by whom?: No Are you DNR?: No Advance Directives: No Advance Directives Information Provided: Yes Recently lost weight without trying: No Eating poorly because of decreased appetite: No service: No Current occupational status: employed Current occupation: [employer] Cognitive needs: No Hearing needs: No Vision needs: Yes (glasses) Review of Systems Const Denies fatigue, Denies fever(s), Denies night sweats, Denies poor appetite and Denies weight loss Eyes Details: glasses Reports requires corrective lenses ENT Reports Normal hearing present, Denies dental pain, Denies dysphagia, Denies hearing loss, Denies mouth pain, Denies odynophagia, Denies throat swelling, Denies tongue swelling and Reports other (Dentition adequate) Card Reports no additional complaints Resp Reports no additional complaints GI Denies abdominal pain, Denies melena, Denies bloating, Denies hematochezia, Reports constipation, Denies GI cramping, Denies dysphagia, Denies excessive flatus, Denies early satiety, Reports heartburn, Denies diarrhea, Denies nausea, Denies odynophagia, Denies vomiting and Denies hematemesis Skin/Breast Denies pruritus, Denies lesions, Denies rash and Denies jaundice Neuro Reports Normal hearing present and Denies Abnormal speech present Endo Denies fatigue Aller/Immun Denies throat swelling and Denies tongue swelling Physical Exam Vital Signs: Last Vital Signs Pulse 84 02/24/23 10:53 BP 95/66 02/24/23 10:53 BMI result Body Mass Index 35.9 Const General: cooperative, no acute distress, well developed and well groomed Nutritional Appearance: well nourished and obese morbidly obese Orientation/consciousness: oriented to person, oriented to place and oriented to time Limitations: No language barrier and other limitations HEENT Head: Yes normocephalic and Yes atraumatic Eyes General: appearance normal, both eyes and all related structures Pupils: Equal, round and reactive pupils present Neck Neck: Yes normal visual inspection and Yes no lymphadenopathy Thyroid: Thyroid normal Resp Effort & Inspection: normal respiratory effort and able to speak in complete sentences Auscultation: clear to auscultation bilaterally Cardio Rate: regular rate Rhythm: regular rhythm Heart sounds: Normal, physiologic split S2 sound present Peripheral pulses: radial pulses present and posterior tibial pulses present GI Inspection: No distended, Yes Abdominal panniculus present and Yes obesity Palpation (GI): Soft to palpation, nontender, no guarding, not rigid and No hepatosplenomegaly present Percussion: Yes normal to percussion Auscultation: normal bowel sounds Rectal Exam - Male: Yes deferred Skin General skin exam: no rashes or lesions noted, turgor normal, skin not dry, no jaundice, No spider nevi and no striae Rashes: no rashes Nails: normal Neuro General: oriented to person, oriented to place and oriented to time Cranial nerves: Yes Equal, round and reactive pupils present and Yes Normal hearing present Speech: No Abnormal speech present Extrem General: Yes normal to inspection, No clubbing, No cyanosis and No edema Psych Appearance: grossly normal and well kempt Mental Status: mental status grossly normal Speech and movement: Normal speech and movement present Affect: normal affect Attitude: cooperative Thought process: Normal thought process present and not confabulating Thought content: Normal thought content present Insight: Limited insight present (Psych) Judgement: Limited judgement present (Psych) Assessment & Plan Assessment & Plan (1) Chronic idiopathic constipation: Code(s): K59.04 - Chronic idiopathic constipation Plan: He has been doing well recently. He continues on his LInzess 290, senna, and fiber pills. The MOM may not be covered by his insurance, he is using the [employer] generic brand.? He also continues on his Reglan 5 mg 3 times a day to promote gastric emptying and overall GI motility.? He is a diabetic and is morbidly obese. He already has his colonoscopy scheduled and his follow-up appointment so we will just keep this for next appointment. Keep rov 03/25. COLONOSCOPY BIOPSY . (2) Delayed gastric emptying: Code(s): K30 - Functional dyspepsia Medications: Changed From sennosides 17.2 mg (2 x 8.6 mg) PO BEDTIME PRN 60 tabs 5RF for constipation To sennosides (senna) 17.2 mg (2 x 8.6 mg) PO BEDTIME 60 tabs 6RF for co nstipation From bisacodyl 2 tabs qhs and 1 qam PO bedtime; 30 days 90 tabs 6RF K59.04 - Chronic idiopathic constipation To bisacodyl (Dulcolax (bisacodyl)) 2 tabs qhs and 1 qam PO bedtime; 90 tabs 6RF 30 days K59.04 - Chronic idiopathic constipation Refilled simethicone 180 mg PO TID 90 caps 2RF R14.0 - Abdominal distension (gaseous) Coding Level of Care Code Est Pt Level 3 (31022) Diagnoses Chronic idiopathic constipation K59.04 Delayed gastric emptying K30
[2023-02-24 10:53] VITALS: BP 95/66; PULSE 84; BMI 35.9
== END 2023-02-24 11:30 | disposition home or self-care (01) ==
PROVIDERS: Visit Provider Nurse Practitioner
DX: K59.04 Chronic idiopathic constipation (principal); K30 Functional dyspepsia
CPT/HCPCS: 99213

== ENCOUNTER → 2023-02-24 10:06 | Outpatient (BNVA) | payer OTHER, SELFPAY | PROVIDERS: Visit Provider Nurse Practitioner | DX: K59.04 Chronic idiopathic constipation (principal); K30 Functional dyspepsia | CPT/HCPCS: 99212 ==

== ENCOUNTER 2023-02-25 10:06 | Emergency (ER) | payer OTHER, SELFPAY ==
--- NOTE | ~2023-02-25 | CT_ITS ---
EXAMINATION: CT ABDOMEN AND PELVIS WITH CONTRAST CLINICAL INFORMATION: Abdominal pain COMPARISON: CT abdomen pelvis 12/26/2022 TECHNIQUE: Multidetector volumetric images were obtained from the superior aspect of the liver through the pubic symphysis following administration 85 mL of Omnipaque 350 intravenous contrast. Sagittal and coronal reformatted images were obtained on the technologist's workstation. Oral contrast: No This CT examination was performed using dose optimization techniques as appropriate, variously including the following: *Automated exposure control *Adjustment of mA and/or kV according to patient size (this includes techniques or standardized protocols for targeted exams where dose is matched to indication/reason for exam; i.e. extremities or head) *Use of iterative reconstruction technique DLP: 1077 mGy-cm FINDINGS: LUNG BASES: Stable triangular solid juxtapleural pulmonary nodule in the right middle lobe morphologically resembling a benign intrapulmonary lymph node, no routine imaging follow-up recommended. Bibasilar atelectasis. ABDOMINAL AND PELVIC WALL: Unremarkable. LIVER AND BILIARY TREE: Nodular hepatic contour suggestive of cirrhosis. Single phase of contrast timing limits assessment for liver lesion. GALLBLADDER: Unremarkable. PANCREAS: Fatty atrophy of the pancreas. SPLEEN: Spleen is enlarged measuring 15.5 cm in span, previously 15.9 cm. ADRENAL GLANDS: Unremarkable. KIDNEYS AND URETERS: Punctate nonobstructing right lower pole renal stone. Subcentimeter renal hypodensities too small to characterize. No hydronephrosis or obstructive nephroureterolithiasis. GASTROINTESTINAL TRACT: Large and small bowel are unremarkable. Normal appendix. VASCULAR: Unremarkable. LYMPH NODES/PERITONEUM: Borderline enlarged cee hepatic nodes measuring up to 1 cm short axis not significantly changed from prior. FREE FLUID: None. BLADDER: Unremarkable. PELVIC VISCERA: Unremarkable. OSSEOUS STRUCTURES: Multilevel degenerative disc disease. CT/CT abdomen pelvis w IV con IMPRESSION: 1. No acute findings to explain symptoms of abdominal pain. 2. Nodular hepatic contour suggestive of cirrhosis, with sequelae of portal hypertension including splenomegaly. 3. Punctate nonobstructing right lower pole renal stone. No hydronephrosis or obstructive nephroureterolithiasis.
--- NOTE | ~2023-02-25 | XR_ITS ---
EXAMINATION: XR ABDOMEN KUB CLINICAL INDICATION: Question constipation. COMPARISON: CT abdomen/pelvis dated 12/26/2022. TECHNIQUE: AP views of the abdomen. FINDINGS: Severe stool burden throughout the colon, increased when compared to the most recent CT. Nonobstructive bowel gas pattern. No abnormal soft tissue calcification. No acute osseous abnormality. XR/XR KUB IMPRESSION: Severe stool burden, increased when compared to the most recent CT.
[2023-02-25 10:10] VITALS: BP 103/72; PULSE 84; RESP 16; TEMP 35.9; O2SAT 96; BMI 36.2
[2023-02-25 11:34] VITALS: BP 118/84; PULSE 79; RESP 18; TEMP 36.4; O2SAT 96
[2023-02-25 11:55] LABS: Appearance Urine Clear; Color Urine Yellow; Glucose Urine UA >=1000 mg/dL (Negative); Leukocyte Esterase Urine Negative (Negative); Nitrite Urine Negative (Negative); PH 5.5 (5.0-9.0); UMIC TRIGGER UACC YES; Urine Blood Negative (Negative); Urine Ketones Negative (Negative); Urine Protein Negative (Neg-Trace)
[2023-02-25 12:00] LABS: Bacteria Urine None Seen (None Seen); Hyaline Casts Urine 0-2 /LPF (0-2); RBC Urine 0-2 /HPF (0-2); Squamous Epithelial Cell Urine 0-2 /HPF (0-2); WBC Urine 0-5 /HPF (0-5)
--- NOTE | 2023-02-25 12:00 | PC.NURSE ---
pt axox4, VSS, respirations even and unlabored, skin WPD. pt c/o diffused abd. pain x 5 days. last BM 5 days ago. denies v/d; reports some nausea after eating. hypoactive bs x4. some tenderness noted RUQ. belly soft, no distention. iv established, labs drawn. call arvizu within reach. pt aware of plan of care; denies questions at this time. awaiting CT.
--- NOTE | 2023-02-25 12:02 | ED_ITS ---
HPI - Abdominal Pain General Chief Complaint: Abdominal Pain Stated Complaint: constipation , pain in abd Time Seen by Provider: 02/25/23 11:07 Source: patient Mode of arrival: ambulatory History of Present Illness HPI narrative: This is a 62-year-old male with history of diabetes and presents with complaints of abdominal pain, nausea, vomiting, fatigue and states he has not had a bowel movement in approximately 5 days and has not tried taking any [id number] medications. He otherwise denies fever or chills. Related Data Home Medications Medication Instructions Recorded Confirmed hydroxyzine pamoate 50 mg capsule 50 mg PO TID PRN Anxiety 09/18/20 02/03/23 benztropine 0.5 mg tablet 0.5 mg PO BID 04/29/22 02/03/23 L.acidoph, paracasei,B. lactis 10 cell PO 05/12/22 02/03/23 billion cell capsule (Digestive Advantage Advanced Probiotic) clozapine 100 mg tablet 100 mg PO TID 05/12/22 02/03/23 Previous Rx's Medication Instructions Recorded lidocaine 5 % topical patch 2 patch topical DAILY PRN pain #30 01/11/22 ea meclizine 25 mg tablet 25 mg PO QID PRN dizziness #20 tabs 01/19/22 lidocaine 4 % topical patch 2 patch topical DAILY PRN pain #30 01/20/22 (Aspercreme (lidocaine)) ea pen needle, diabetic 29 gauge x #100 ea 02/02/2208/15 (BD Ultra-Fine Original Pen Needle) blood-glucose meter (FreeStyle #1 ea 02/18/22 Lite Meter kit) empagliflozin 25 mg tablet 25 mg PO QAM #30 tabs 05/25/22 (Jardiance) gabapentin 300 mg capsule 300 mg PO BEDTIME 90 days #90 caps 08/11/22 sildenafil 50 mg tablet 50 mg PO DAILY PRN sexual activity 08/11/22 #10 tabs polyethylene glycol 3350 17 gram 17 g PO BID #30 ea 08/12/22 oral powder packet (Miralax) cholecalciferol (vitamin D3) 25 25 mcg PO DAILY #90 caps 11/03/22 mcg (1,000 unit) capsule Tresiba FlexTouch U-200 200 30 unit (0.15 mL) subcut DAILY 90 11/11/22 unit/mL (3 mL) subcutaneous pen days #9 mL (insulin degludec) peg 3350-electrolytes 236 240 ml PO Q10M 1 day #4,000 mL 11/11/22 gram-22.74 gram-6.74 gram-5.86 gram solution (Golytely) linaclotide 290 mcg capsule 290 mcg PO QAM 30 days #30 caps 12/26/22 (Linzess) atorvastatin 10 mg tablet 10 mg PO DAILY #90 tabs 12/29/22 blood sugar diagnostic (FreeStyle #100 ea 01/11/23 Lite Strips) metformin 500 mg tablet 1,000 mg PO BID 90 days #360 tabs 01/23/23 lancets 28 gauge (FreeStyle #100 ea 01/27/23 Lancets) furosemide 20 mg tablet 20 mg PO DAILY #90 tabs 02/03/23 methylcellulose (laxative) 500 mg 1,000 mg PO TID #180 tabs 02/03/23 tablet (Fiber Therapy (methylcellulose)) docusate sodium 100 mg capsule 100 mg PO BID #60 caps 02/13/23 bisacodyl 5 mg tablet,delayed See Rx Instructions PO BEDTIME 30 02/24/23 release (Dulcolax (bisacodyl)) days #90 tabs sennosides 8.6 mg tablet (senna) 17.2 mg PO BEDTIME for 02/24/23 constipation #60 tabs simethicone 180 mg capsule 180 mg PO TID #90 caps 02/24/23 Allergies Allergy/AdvReac Type Severity Reaction Status Date / Time No Known Allergies Allergy Verified 02/25/23 10:10 [No Known Allergies*] Review of Systems Review of Systems Pertinent positives and negatives as stated in HPI [facility] Past Medical History Source: nursing notes reviewed Medical History Benign essential hypertension Bowel obstruction Chronic idiopathic constipation Chronic kidney disease (CKD), stage III (moderate) Diabetes type 2, uncontrolled Diabetic polyneuropathy associated with 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 mellitus Dyslipidemia Elevated LFTs Gastroenteritis Healed wound Hospital discharge follow-up 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 mellitus Knee osteoarthritis 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, 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 Melena Morbid obesity Obesity (BMI 30-39.9) Pain in both feet Pure hypercholesterolemia Right hand pain Schizo affective schizophrenia Schizoaffective disorder Type 2 diabetes mellitus with diabetic chronic kidney disease Surgical History History of repair of congenital cleft palate Hx of circumcision Family History Family History Father HTN (hypertension) Mother Diabetes Other Mental health problem Social History Social History Household Members: None Housing: Apartment Do you presently have visiting nurse or other home services: Yes Alcohol intake: former Patient Tobacco Use Status: Former Tobacco user Tobacco use type: Cigarette Cigarettes Per Day: 15 Years Smoked: 8 quit 30 years ago Smoked in Last 30 Days: No e-Cigarette/Vaping Use: Never Used Second Hand Smoke Exposure: No Use of substances other than those prescribed or required for medical reasons: No Advance Directives: No service: No Current occupational status: employed Current occupation: [employer] Cognitive needs: No Hearing needs: No Vision needs: Yes (glasses) Physical Exam ED Vital Signs: Vital Signs - 24 hr 02/25/23 10:10 02/25/23 11:34 Temperature 96.7 F L 97.6 F Pulse Rate 84 79 Respiratory Rate 16 18 Blood Pressure 103/72 118/84 Pulse Oximetry 96 96 Oxygen Delivery Method Room Air Room Air BMI result Body Mass Index 36.2 VITAL SIGNS: Reviewed. GENERAL: Well developed, well nourished, in no acute distress. HEAD: Normocephalic/atraumatic EYES: PERRLA, EOMI EARS: Ext canals without abnormality NOSE: Nares patent bilateral OROPHARYNX: no oral lesions noted, posterior pharynx clear NECK: Supple, no adenopathy LUNGS: Normal breath sounds. No adventitious sounds or accessory muscle use. SpO2<96> CARDIOVASCULAR: Regular rate and rhythm without noted murmurs ABDOMEN: Soft, what tenderness on deep palpation, non-distended with bowel sounds. MUSCULOSKELETAL: No tenderness, deformities, or effusions noted on gross inspection. EXTREMITIES: No cyanosis, clubbing or edema. SKIN: Inspection of the skin reveals no rashes NEUROLOGIC: Alert and oriented x 4. Strength and sensation to light touch were grossly intact x 4. Medical Decision Making Medical Decision Making MDM Narrative: 62-year-old male with history and clinical presentation, DDX: Constipation, Functional obstruction, volvulus, SBO, gastroparesis. I reviewed all investigations with hematologic indices indicating a mild left shift but otherwise no leukocytosis/anemia and has chronic thrombocytopenia. Chemistry indices are chronically stable to include liver transaminases. Urinalysis negative for hematuria or infection. KUB significant for large stool burden in CT scan corroborates this. Patient will receive enema, hospital as out of magnesium citrate, will give p.o. challenge and re-evaluate patient's discomfort after the enema. Signed out to Dr. Duval - p.o. challenge - good results from enema? Differential Diagnosis Differential Diagnoses: The differential diagnosis associated with the presentation includes Please see the discussion above Admission/Observation Consideration of admission/observation: Escalation of care including admission/observation considered Lab Data MDM Lab Attestation statement: I reviewed the patient's lab results. Please see the discussion above 02/25/23 11:58 02/25/23 11:58 Labs: Lab Results 02/25/23 02/25/23 02/25/23 Range/Units 11:43 11:58 11:58 WBC 7.2 (4.8-10.8) X10*3/uL RBC 5.21 (4.60-5.80) X10*6/uL Hgb 15.3 (14.0-18.0) g/dl Hct 43.9 (42.0-52.0) % MCV 84.3 (80.0-98.0) fL MCH 29.4 (27.0-33.0) pg MCHC 34.9 (31.0-36.0) g/dl RDW 12.7 (11.0-16.0) % Plt Count 113 L (160-400) X10*3/uL MPV 10.1 (9.4-12.4) fL Immature Gran % (Auto) 0.3 (0.0-0.4) % Neut % (Auto) 73.5 H (45-73) % Lymph % (Auto) 19.0 L (20-40) % [place] % (Auto) 7.1 (2-11) % Eos % (Auto) 0.0 (0-4) % Baso % (Auto) 0.1 (0-2) % Lymph # (Auto) 1.4 (1.2-4.9) X10*3/uL [place] # (Auto) 0.5 (0.1-1.2) X10*3/uL Eos # (Auto) 0.0 (0.0-0.4) X10*3/uL Baso # (Auto) 0.0 (0.0-0.2) X10*3/uL Abs Immat Gran (auto) 0.02 (0.00-0.03) X10*3/uL Absolute Neuts (auto) 5.3 (2.0-8.3) x10*3/uL Absolute Nucleated RBC 0.000 (0.0-0.012) X10*3/uL Nucleated RBC % (auto) 0.0 (0.0-0.2) /100WBC Sodium 139 (135-145) mmol/L Potassium 4.3 (3.3-5.1) mmol/L Chloride 104 (96-108) mmol/L Carbon Dioxide 24 (22-29) mmol/L Anion Gap 15 (12-20) BUN 21 H (9-16) mg/dL Creatinine 1.29 (0.5-1.4) mg/dL Estim Creat Clear Calc 84.1 Estimated GFR 57 Random Glucose 183 H (60-115) mg/dL Calcium 9.7 (8.4-10.2) mg/dL Total Bilirubin 0.4 (0.0-1.0) mg/dL AST 23 (5-37) U/L ALT 48 H (0-40) U/L Alkaline Phosphatase 128 H (39-117) U/L Total Protein 7.2 (6.5-8.0) g/dL Albumin 4.3 (3.5-5.0) g/dL Urine Color Yellow Urine Appearance Clear Urine pH 5.5 (5.0-9.0) Ur Specific [place] 1.020 (1.005-1.025) Urine Protein Negative (Neg-Trace) mg/dL Urine Glucose (UA) >=1000 H (Negative) mg/dL Urine Ketones Negative (Negative) mg/dL Urine Blood Negative (Negative) Urine Nitrite Negative (Negative) Ur Leukocyte Esterase Negative (Negative) Urine RBC 0-2 (0-2) /HPF Urine WBC 0-5 (0-5) /HPF Ur Squamous Epith Cells 0-2 (0-2) /HPF Urine Bacteria None Seen (None Seen) Hyaline Casts 0-2 (0-2) /LPF Independent Interpretation I performed an independent interpretation of an: EKG Interpretation: Normal sinus rhythm, HR-77, no STEMI, CT/QRS/QTC is within normal limits. Radiology Impression Radiologist Impression: No bowel obstruction or volvulus, otherwise my interpretation is in agreement with radiology's impression. External Record Review External record reviewed: Outpatient record and Prior outpatient labs Chronic Conditions Patient?s care impacted by: Diabetes Medications Administered Discontinued Medications Generic Name Dose Route Start Last Admin Trade Name Freq PRN Reason Stop Dose Admin Iohexol 100 ml 02/25/23 13:37 02/25/23 13:38 Iohexol 350 Mg/Ml 100 Ml Infus..Btl IV 02/25/23 13:38 100 ml ONCE ONE Administration Critical Care Time Critical Care Time Critical Care Time: Yes Total Critical Care Time: 30 Attestation: I personally attest to this time spent taking care of the patient. Discharge Plan Discharge Clinical Impression: Constipation Patient Disposition: Still a Patient Prescriptions: No Action lidocaine 5 % adhesive patch,medicated 2 patch topical DAILY PRN (Reason: pain) Qty: 30 1RF Rx Instructions: leave on most painful area for up to 12 hrs lidocaine [Aspercreme (lidocaine)] 4 % adhesive patch,medicated 2 patch topical DAILY PRN (Reason: pain) Qty: 30 1RF (DME) blood-glucose meter [FreeStyle Lite Meter] Kit See Rx Instructions .Route Qty: 1 0RF Rx Instructions: Tests 4 X/day Jardiance 25 mg tablet 25 mg PO QAM Qty: 30 3RF cholecalciferol (vitamin D3) 25 mcg (1,000 unit) capsule 25 mcg PO DAILY Qty: 90 12RF Linzess 290 mcg capsule 290 mcg PO QAM 30 Days Qty: 30 6RF atorvastatin 10 mg tablet 10 mg PO DAILY Qty: 90 0RF (DME) FreeStyle Lite Strips Strip See Rx Instructions .Route Qty: 100 5RF Rx Instructions: Tests 5X/day metformin 500 mg tablet 1,000 mg PO BID 90 Days Qty: 360 1RF (DME) lancets [FreeStyle Lancets] 28 gauge misc See Rx Instructions .Route Qty: 100 4RF Rx Instructions: Tests 5x/day furosemide 20 mg tablet 20 mg PO DAILY Qty: 90 1RF Fiber Therapy (m-cellulose) 500 mg tablet 1,000 mg PO TID Qty: 180 5RF docusate sodium 100 mg capsule 100 mg PO BID Qty: 60 0RF benztropine 0.5 mg tablet 0.5 mg PO BID hydroxyzine pamoate 50 mg capsule 50 mg PO TID PRN (Reason: Anxiety) meclizine 25 mg tablet 25 mg PO QID PRN (Reason: dizziness) Qty: 20 0RF gabapentin 300 mg capsule 300 mg PO BEDTIME 90 Days Qty: 90 1RF sildenafil 50 mg tablet 50 mg PO DAILY PRN (Reason: sexual activity) Qty: 10 0RF Rx Instructions: administer 30 minutes to 4 hours before activity peg 3350-electrolytes [Golytely] 236-22.74-6.74 -5.86 gram recon soln 240 ml PO Q10M 1 Days Qty: 4000 0RF Rx Instructions: until fecal effluent is clear; do not exceed a total volume of 2,000 mL Tresiba FlexTouch U-200 200 unit/mL (3 mL) insulin pen 30 unit subcut DAILY 90 Days Qty: 9 3RF clozapine 100 mg tablet 100 mg PO TID Digestive Advantage Advanced 10 billion cell capsule PO (DME) pen needle, diabetic [BD Ultra-Fine Orig Pen Needle] 29 gauge x 1/2 needle See Rx Instructions .ROUTE DAILY Qty: 100 3RF Rx Instructions: As directed daily polyethylene glycol 3350 [Miralax] 17 gram powder in packet 17 g PO BID Qty: 30 6RF Hold Instructions: Doctor's Order sennosides [senna] 8.6 mg tablet 17.2 mg PO BEDTIME Qty: 60 6RF simethicone 180 mg capsule 180 mg PO TID Qty: 90 2RF bisacodyl [Dulcolax (bisacodyl)] 5 mg tablet,delayed release (DR/EC) See Rx Instructions PO BEDTIME 30 Days Qty: 90 6RF Rx Instructions: 2 tabs qhs and 1 qam PO bedtime;
[2023-02-25 12:03] LABS: MANUAL DIFF FLAG NO
[2023-02-25 12:05] LABS: Basophils Percent Auto 0.1 % (0-2); Hematocrit 43.9 % (42.0-52.0); Hemoglobin 15.3 g/dl (14.0-18.0); Imm Gran Abs Auto 0.02 X10*3/uL (0.00-0.03); Imm Gran Pct Auto 0.3 % (0.0-0.4); Lymphocytes Absolute Auto 1.4 X10*3/uL (1.2-4.9); Mean Corpuscular HGB Conc 34.9 g/dl (31.0-36.0); Mean Corpuscular Hemoglobin 29.4 pg (27.0-33.0); Mean Corpuscular Volume 84.3 fL (80.0-98.0); Mean Platelet Volume 10.1 fL (9.4-12.4); Monocytes Absolute Auto 0.5 X10*3/uL (0.1-1.2); Monocytes Percent Auto 7.1 % (2-11); Neutrophils Absolute Auto 5.3 x10*3/uL (2.0-8.3); Neutrophils Percent Auto 73.5 % (45-73); Platelet Count 113 X10*3/uL (160-400); Red Blood Count 5.21 X10*6/uL (4.60-5.80); Red Cell Distribution Width 12.7 % (11.0-16.0); White Blood Count 7.2 X10*3/uL (4.8-10.8)
[2023-02-25 12:17] LABS: Alanine Aminotransferase 48 U/L (0-40); Albumin Level 4.3 g/dL (3.5-5.0); Alkaline Phosphatase 128 U/L (39-117); Anion Gap 15 (12-20); Aspartate Amino Transferase 23 U/L (5-37); Bilirubin Total 0.4 mg/dL (0.0-1.0); Blood Urea Nitrogen 21 mg/dL (9-16); Calcium 9.7 mg/dL (8.4-10.2); Carbon Dioxide 24 mmol/L (22-29); Chloride 104 mmol/L (96-108); Creatinine Clr Calc Pharmacy 84.1; Estimated Glomerular Filt Rate 57; Glucose Random 183 mg/dL (60-115); Potassium 4.3 mmol/L (3.3-5.1); Sodium 139 mmol/L (135-145); Total Protein 7.2 g/dL (6.5-8.0)
[2023-02-25] MEDS: iohexoL 350 MG/ML 100 ML INFUS..BTL IV (13:38)
--- NOTE | 2023-02-25 15:52 | PC.NURSE ---
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
[2023-02-25 16:00] VITALS: BP 106/72; PULSE 68; RESP 16; TEMP 36.6; O2SAT 97
[2023-02-25] MEDS: Milk of Magnesia 30 ML ORAL.SUSP PO (17:25)
== END 2023-02-25 18:43 | disposition home or self-care (01) ==
PROVIDERS: Student in an Organized Health Care Education/Training Program; Emergency Provider Emergency Medicine; PCP Internal Medicine
DX: K59.00 Constipation, unspecified (principal); E11.22 Type 2 diabetes mellitus with diabetic chronic kidney disease; I12.9 Hypertensive chronic kidney disease with stage 1 through stage 4 chronic kidney disease, or unspecified chronic kidney disease; N18.30 Chronic kidney disease, stage 3 unspecified; E78.00 Pure hypercholesterolemia, unspecified; E66.9 Obesity, unspecified; Z68.36 Body mass index [BMI] 36.0-36.9, adult; Z79.4 Long term (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; Z87.891 Personal history of nicotine dependence; Z79.899 Other long term (current) drug therapy
CPT/HCPCS: 36415; 74018; 74177; 80053; 81001; 85025; 99284; Q9967

== ENCOUNTER 2023-03-08 08:42 | Outpatient (REF) | payer OTHER, SELFPAY ==
[2023-03-08 08:55] LABS: MANUAL DIFF FLAG NO
[2023-03-08 10:27] LABS: Hematocrit 46.3 % (42.0-52.0); Hemoglobin 16.1 g/dl (14.0-18.0); Imm Gran Abs Auto 0.03 X10*3/uL (0.00-0.03); Imm Gran Pct Auto 0.4 % (0.0-0.4); Lymphocytes Absolute Auto 1.6 X10*3/uL (1.2-4.9); Mean Corpuscular HGB Conc 34.8 g/dl (31.0-36.0); Mean Corpuscular Hemoglobin 29.8 pg (27.0-33.0); Mean Corpuscular Volume 85.6 fL (80.0-98.0); Mean Platelet Volume 10.7 fL (9.4-12.4); Monocytes Absolute Auto 0.6 X10*3/uL (0.1-1.2); Monocytes Percent Auto 7.7 % (2-11); Neutrophils Absolute Auto 5.3 x10*3/uL (2.0-8.3); Neutrophils Percent Auto 70.9 % (45-73); Platelet Count 120 X10*3/uL (160-400); Red Blood Count 5.41 X10*6/uL (4.60-5.80); White Blood Count 7.4 X10*3/uL (4.8-10.8)
== END 2023-03-08 08:43 | disposition home or self-care (01) ==
LOC: HO.LABR 08:42
PROVIDERS: PCP Internal Medicine; Visit Provider Nurse Practitioner Psychiatric/Mental Health
DX: Z79.899 Other long term (current) drug therapy (principal)
CPT/HCPCS: 36415; 85025; 85048

== ENCOUNTER → 2023-03-17 09:49 | Day surgery (SDC) | payer OTHER, SELFPAY ==
[2023-03-14 14:13] VITALS: BMI 35.8
--- NOTE | 2023-03-17 09:56 | HO.ANESPROP2 ---
HPI - Anesthesia Eval Consult details Narrative: 62 yo male patient for Colonoscopy FORMERLY [facility], [facility] Active Problems Active Problems: All Active Problems (Updated 03/17/23 @ 11:00 by Debbie Camara MD) Chronic idiopathic constipation (Acute) Colon cancer screening (Acute) Hearing impairment (Acute) COVID-19 (Acute) Pre-op examination (Acute) Delayed gastric emptying (Acute) Vertigo (Acute) Callus of foot (Acute) Elevated LFTs (Acute) Abdominal bloating (Acute) Bowel obstruction (Acute) Type 2 diabetes mellitus with diabetic chronic kidney disease (Acute) Melena (Acute) Right hand pain (Acute) Knee osteoarthritis (Acute) Pain in both feet (Acute) Knee pain, bilateral (Acute) Obesity (BMI 30-39.9) (Acute) Schizoaffective disorder (Acute) Pure hypercholesterolemia (Acute) Chronic kidney disease (CKD), stage III (moderate) (Acute) Morbid obesity (Acute) 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 mellitus (Acute) 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) Diabetic polyneuropathy associated with 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 mellitus (Acute) Denies KOBY Past Medical History Medical History Benign essential hypertension Bowel obstruction Chronic idiopathic constipation Chronic kidney disease (CKD), stage III (moderate) Diabetes type 2, uncontrolled Diabetic polyneuropathy associated with 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 mellitus Dyslipidemia Elevated LFTs Gastroenteritis Healed wound Hospital discharge follow-up 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 mellitus Knee osteoarthritis Knee pain, bilateral 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 Melena Morbid obesity Obesity (BMI 30-39.9) Pain in both feet Pure hypercholesterolemia Right hand pain Schizo affective schizophrenia Schizoaffective disorder Type 2 diabetes mellitus with diabetic chronic kidney disease Family History Family History Father HTN (hypertension) Mother Diabetes Other Mental health problem Family history of problems with anesthesia: No Surgical History Surgical History History of repair of congenital cleft palate Hx of circumcision History of Problems with Anesthesia: No Social History Social History Household Members: None Housing: Apartment Are you a primary care coordination manager to a significant other at home: No Do you presently have visiting nurse or other home services: Yes Alcohol intake: former Patient Tobacco Use Status: Former Tobacco user Tobacco use type: Cigarette Cigarettes Per Day: 15 Years Smoked: 8 quit 30 years ago e-Cigarette/Vaping Use: Never Used Second Hand Smoke Exposure: No service: No Current occupational status: employed Current occupation: [employer] Cognitive needs: No Hearing needs: No Vision needs: Yes (glasses) Meds Allergies Allergy/AdvReac Type Severity Reaction Status Date / Time No Known Allergies Allergy Verified 02/25/23 10:10 [No Known Allergies*] Home Medications Medication Instructions Recorded Confirmed Last Taken Type hydroxyzine pamoate 50 mg capsule 50 mg PO TID PRN Anxiety 09/18/20 02/03/23 Unknown History benztropine 0.5 mg tablet 0.5 mg PO BID 04/29/22 02/03/23 Unknown History L.acidoph, paracasei,B. lactis 10 cell PO 05/12/22 02/03/23 Unknown History billion cell capsule (Digestive Advantage Advanced Probiotic) clozapine 100 mg tablet 100 mg PO TID 05/12/22 02/03/23 Unknown History Exam Exam Date and Time: March 17, 2023 0956 Height,Weight and Vital Signs: Height 6 ft 1 in Weight 122.924 kg Vital Signs Temp Pulse Resp BP Pulse Ox O2 Del Method 03/17/23 10:49 97.2 F 87 18 98/73 98 Room Air Pertinent Lab Results Pertinent Lab Results: Lab Results 03/17/23 Range/Units 10:34 POC Glucose 173 H (60-115) mg/dL Airway Mallampati Class: III TM Dist: >3cm Neck ROM: Full Loose/Missing/Broken Teeth: Yes (Many missing. Denies broken or loose teeth) Heart: RRR Lungs: CTAB Assessment and Plan Assessment Anesthesia Assessment: Anesthesia Plan Discussed and Chart Reviewed Final Anesthetic Review Family History of Problems with Anesthesia: No History of Problems with Anesthesia: No NPO: Yes ASA Class: III Final Preanesthetic Review: No Changes in Pt Med Stat, Meds/Allgs Chart Reviewed, Consent Obtained/Reviewed and Anes Risks/Benef Reviewed Patient Risk: High Procedure Risk: Low Assessment/Block/Sedation in SS: Assess/Block/Sedation-SS Anesthetic Plan Anesthetic Plan: GA Disposition: Standard PACU
--- NOTE | 2023-03-17 10:22 | MHC.SHP ---
Pre-Procedural Eval Section A Date of Service: 03/17/23 The patient is an INPATIENT: No The History & Physical has been completed within 30 days and I have reviewed it.: Yes Section B Chief Complaint: Chronic idiopathic constipation Allergies: Allergies Allergy/AdvReac Type Severity Reaction Status Date / Time No Known Allergies Allergy Verified 02/25/23 10:10 [No Known Allergies*] Plan Diagnosis/Plan: Change (Colonoscopy was rescheduled since fleet enemas showed solid stools - needs 2 day prep) I have reviewed the history and physical and performed a pertinent physical examination on my patient. No changes have occurred unless specified. Time Spent With Patient Time: Total time managing care of this patient today ____ minutes.
[2023-03-17 10:37] LABS: Glucose, Whole Blood 173 mg/dL (60-115)
[2023-03-17 10:49] VITALS: BP 98/73; PULSE 87; RESP 18; TEMP 36.2; O2SAT 98
--- NOTE | 2023-03-17 11:08 | W.PM.OPN ---
Operative Note Operative Note Date of Service: 03/17/23 Narrative: COLONOSCOPY TILL CECUM WITH [] Pre-op diagnosis: [] Post-op diagnosis:?[] Endoscopist:? Vickie Ponce MD Anesthesia:?MAC Consent: Indications for the procedure and potential complications of bleeding, perforation, reaction to medications and missed diagnosis were discussed with the patient and informed consent was obtained. Instrument: Olympus PCF H 190 L variable stiffness pediatric colonoscope Monitoring: Vital signs and clinical assessment, intermittent blood pressure monitoring, continuous EKG monitoring, Pulse oximetry and Carbon Dioxide monitoring were done throughout the procedure. Please see anesthesia flowsheet. Colon withdrawl time was [] minutes. Procedure: The patient was placed in the left lateral decubitis position and pre-procedure medications were administered. After a digital rectal examination of the ano-rectum, the video colonoscope was inserted into the rectum and advanced through the colon to the cecum. The colonoscope was slowly withdrawn in a retrograde panoramic fashion and the colon mucosa was carefully examined including a retroflexed view of the rectum. Findings and interventions are described below. Procedure Difficulty: [Without difficulty] [LLQ pressure applied to intubate the transverse colon/cecum] Findings: Terminal Ileum: Not evaluated Cecum: Normal Ascending Colon: Normal Transverse Colon: Normal Descending Colon: Normal Sigmoid Colon: Moderate diverticulosis Rectum: Normal Ano-rectum: Moderate internal hemorrhoids Colon preparation: [Excellent] [Good] [Fair] [poor] Impression and Post Procedure Diagnosis: Colonoscopy Findings: [] polyps removed Moderate diverticulosis seen in the []colon Moderate hemorrhoids on retroflexed exam. Plan: Await pathology results Patient has an appointment on 03/30/23 in the GI Clinic with Susy Gordillo NP. Repeat Colonoscopy interval based on path results - in 3-5 years if polyps are adenomatous and 10 years if polyps are hyperplastic. Above findings were reviewed with the patient and [colon polyps] and [diverticulosis] handouts were given in the discharge area
== END ==
PROVIDERS: PCP Internal Medicine; Visit Provider Internal Medicine Gastroenterology
DX: K59.04 Chronic idiopathic constipation (principal); Z53.8 Procedure and treatment not carried out for other reasons; E11.22 Type 2 diabetes mellitus with diabetic chronic kidney disease; I12.9 Hypertensive chronic kidney disease with stage 1 through stage 4 chronic kidney disease, or unspecified chronic kidney disease; N18.30 Chronic kidney disease, stage 3 unspecified; Z87.891 Personal history of nicotine dependence; Z79.4 Long term (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
CPT/HCPCS: 82947; J0330; J2405; J3010

== ENCOUNTER 2023-03-30 10:09 | Outpatient (AMB) | payer OTHER, SELFPAY ==
--- NOTE | 2023-03-30 10:33 | MHC.OFFVIS ---
Intake Vital Signs 03/30/23 10:38 Height 6 ft 1 in Weight 271 lb BMI 35.8 BP 110/70 Blood Pressure Location Rt brachial Position Sitting Pulse 82 Intake Visit Reasons: S/p colon- Kris Intake Note: Patient presents to in office visit today in follow up to re discuss colonoscopy. CC: Patient report he was not able to have colonoscopy done d/t poor prep. Patient c/o diarrhea, constipation, and nausea at night. Crusher Screen Repairer Required: No Accompanied by: Self / Same As Patient Allergies No Known Allergies [No Known Allergies*] Allergy (Verified 03/30/23 10:46) HPI S/p colon- Kris HPI Details Assessment & Plan (1) Chronic idiopathic constipation: ?Code(s): K59.04 - Chronic idiopathic constipation ?Plan: He has been doing well recently. He continues on his LInzess 290, senna, and fiber pills. The MOM may not be covered by his insurance, he is using the [employer] generic brand.? He also continues on his Reglan 5 mg 3 times a day to promote gastric emptying and overall GI motility.? He is a diabetic and is morbidly obese. He already has his colonoscopy scheduled and his follow-up appointment so we will just keep this for next appointment. Keep rov 03/25. (2) Delayed gastric emptying: ?Code(s): K30 - Functional dyspepsia ? ? ? Medications: Changed From sennosides 17.2 mg (2 x 8.6 m g) PO BEDTIME PRN 60 tabs 5RF for co nstipation ? ? To sennosides (senna) 17.2 mg (2 x 8.6 m g) PO BEDTIME 60 t abs 6RF for consti pation ? ? From bisacodyl ?2 tabs qhs and 1 qam PO bedtime;? 30 days 90 tabs 6R F K59.04 - Chronic i diopathic constipa tion ? To bisacodyl ([place]col[place] x (bisacodyl)) 2 tabs qhs and 1 q am PO bedtime;? 90 tabs 6RF 30 days C K59.04 - Chronic i diopathic constipa tion ? Refilled simethicone 180 mg PO TID 90 c aps 2RF R14.0 - Abdominal distension (gaseou s) ? COLONOSCOPY BIOPSY CORRESPONDENCE On 03/17/23 @ 12:19 Vickie Ponce Wrote To Susy Gordillo (2) Pt scheduled for his colonoscopy today.? Pt stated he took all his prep without difficulty and stated his stool were brownish. He was given an enema and passed solid stools. Pt advised to reschedule his appt.? Please lauren HARO appt with Susy Gordillo later this month to rediscuss 1 2day prep for his next colonoscopy.? Anesthesia plan to give him GA due to a hx of Gastroparesis. Thanks TODAY'S VISIT Carmen says she can only prep for more that 1 day if they admit me into the hospital for it. This is not a possiblity as no insurance will pay for this. but ALSO I question if he has the mental capacity to follow the instructions for a 2 day prep given his low intellectual function. He continues on maximum dose Linzess, senna, fiber, MiraLax, milk of magnesia, and he has even use lactulose in the past. He is also on Reglan date with the bowels and with gastroparesis. I think we should attempt a cologuard screening. ROV 6 weeks. 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 Melena Morbid obesity Obesity (BMI 30-39.9) Pain in both feet Pure hypercholesterolemia Right hand pain Schizo affective schizophrenia Schizoaffective disorder Type 2 diabetes mellitus with diabetic chronic kidney disease Surgical History History of repair of congenital cleft palate Hx of circumcision Family History Father HTN (hypertension) Mother Diabetes Other Mental health problem Social History Household Members: None Housing: Apartment Are you a primary managed care manager to a significant other at home: No Do you presently have visiting nurse or other home services: Yes Alcohol intake: former Patient Tobacco Use Status: Former Tobacco user Tobacco use type: Cigarette Cigarettes Per Day: 15 Years Smoked: 8 quit 30 years ago e-Cigarette/Vaping Use: Never Used Second Hand Smoke Exposure: No service: No Current occupational status: employed Current occupation: [employer] Cognitive needs: No Hearing needs: No Vision needs: Yes (glasses) Review of Systems Const Denies fatigue, Denies fever(s), Denies night sweats, Denies poor appetite and Denies weight loss Eyes Details: GLASSES Reports requires corrective lenses ENT Reports Normal hearing present, Denies dental pain, Denies dysphagia, Denies hearing loss, Denies mouth pain, Denies odynophagia, Denies throat swelling, Denies tongue swelling and Reports other (Dentition adequate) Card Reports no additional complaints Resp Reports no additional complaints GI Denies abdominal pain, Denies melena, Reports bloating, Denies hematochezia, Reports constipation, Denies GI cramping, Denies dysphagia, Denies excessive flatus, Reports early satiety, Reports heartburn, Denies diarrhea, Denies nausea, Denies odynophagia, Denies vomiting and Denies hematemesis Skin/Breast Denies pruritus, Denies lesions, Denies rash and Denies jaundice Neuro Reports Normal hearing present and Denies Abnormal speech present Endo Denies fatigue Aller/Immun Denies throat swelling and Denies tongue swelling Physical Exam Vital Signs: Last Vital Signs Pulse 82 03/30/23 10:38 BP 110/70 03/30/23 10:38 BMI result Body Mass Index 35.8 Const General: cooperative, no acute distress, well developed and well groomed Nutritional Appearance: well nourished and obese Orientation/consciousness: oriented to person, oriented to place and oriented to time Limitations: behavioral limitations, No language barrier and other limitations (Intellectual deficit and psychiatric diagnosis) HEENT Head: Yes normocephalic and Yes atraumatic Eyes General: appearance normal, both eyes and all related structures Pupils: Equal, round and reactive pupils present Neck Neck: Yes normal visual inspection and Yes no lymphadenopathy Thyroid: Thyroid normal Resp Effort & Inspection: normal respiratory effort and able to speak in complete sentences Auscultation: clear to auscultation bilaterally Cardio Rate: regular rate Rhythm: regular rhythm Heart sounds: Normal, physiologic split S2 sound present Peripheral pulses: radial pulses present and posterior tibial pulses present GI Inspection: No distended, Yes Abdominal panniculus present and Yes obesity Palpation (GI): Soft to palpation, nontender, no guarding, not rigid and No hepatosplenomegaly present Percussion: Yes normal to percussion Auscultation: normal bowel sounds Rectal Exam - Male: Yes deferred Skin General skin exam: no rashes or lesions noted, turgor normal, skin not dry, no jaundice, No spider nevi and no striae Rashes: no rashes Nails: normal Neuro General: oriented to person, oriented to place and oriented to time Cranial nerves: Yes Equal, round and reactive pupils present and Yes Normal hearing present Speech: No Abnormal speech present Extrem General: Yes normal to inspection, No clubbing, No cyanosis and No edema Psych Appearance: grossly normal and well kempt Mental Status: mental status grossly normal Speech and movement: Normal speech and movement present Affect: normal affect Attitude: cooperative Thought process: Normal thought process present and not confabulating Thought content: Normal thought content present Insight: Poor insight present (Psych) Judgement: Poor judgement present (Psych) Assessment & Plan Assessment & Plan (1) Chronic idiopathic constipation: Code(s): K59.04 - Chronic idiopathic constipation Plan: Carmen says she can only prep for more that 1 day if they admit me into the hospital for it. This is not a possiblity as no insurance will pay for this. but ALSO I question if he has the mental capacity to follow the instructions for a 2 day prep given his low intellectual function. He continues on maximum dose Linzess, senna, fiber, MiraLax, milk of magnesia, and he has even use lactulose in the past. He is also on Reglan date with the bowels and with gastroparesis. I think we should attempt a cologuard screening. ROV 6 weeks. (2) Colon cancer screening: Code(s): Z12.11 - Encounter for screening for malignant neoplasm of colon (3) Delayed gastric emptying: Code(s): K30 - Functional dyspepsia Coding Level of Care Code Est Pt Level 3 (07731) Diagnoses Chronic idiopathic constipation K59.04 Colon cancer screening Z12.11 Delayed gastric emptying K30
[2023-03-30 10:38] VITALS: BP 110/70; PULSE 82; BMI 35.8
== END 2023-03-30 10:57 | disposition home or self-care (01) ==
PROVIDERS: PCP Internal Medicine; Visit Provider Nurse Practitioner
DX: K59.04 Chronic idiopathic constipation (principal); Z12.11 Encounter for screening for malignant neoplasm of colon; K30 Functional dyspepsia
CPT/HCPCS: 99213

== ENCOUNTER → 2023-03-30 10:09 | Outpatient (BNVA) | payer OTHER, SELFPAY | PROVIDERS: PCP Internal Medicine; Visit Provider Nurse Practitioner | DX: Z12.11 Encounter for screening for malignant neoplasm of colon (principal); K59.04 Chronic idiopathic constipation; K30 Functional dyspepsia | CPT/HCPCS: 99212 ==

== ENCOUNTER 2023-04-04 08:14 | Outpatient (REF) | payer OTHER, SELFPAY ==
[2023-04-04 08:37] LABS: MANUAL DIFF FLAG NO
[2023-04-04 08:50] LABS: Hematocrit 44.3 % (42.0-52.0); Hemoglobin 15.4 g/dl (14.0-18.0); Imm Gran Abs Auto 0.04 X10*3/uL (0.00-0.03); Imm Gran Pct Auto 0.7 % (0.0-0.4); Lymphocytes Absolute Auto 1.3 X10*3/uL (1.2-4.9); Lymphocytes Percent Auto 21.6 % (20-40); Mean Corpuscular HGB Conc 34.8 g/dl (31.0-36.0); Mean Corpuscular Hemoglobin 29.3 pg (27.0-33.0); Mean Corpuscular Volume 84.4 fL (80.0-98.0); Monocytes Absolute Auto 0.5 X10*3/uL (0.1-1.2); Neutrophils Absolute Auto 4.3 x10*3/uL (2.0-8.3); Neutrophils Percent Auto 69.7 % (45-73); Platelet Count 107 X10*3/uL (160-400); Red Blood Count 5.25 X10*6/uL (4.60-5.80); Red Cell Distribution Width 13.1 % (11.0-16.0); White Blood Count 6.1 X10*3/uL (4.8-10.8)
== END 2023-04-04 08:15 | disposition home or self-care (01) ==
LOC: HO.LABR 08:14
PROVIDERS: PCP Internal Medicine; Visit Provider Psychiatry & Neurology Psychiatry
DX: F25.0 Schizoaffective disorder, bipolar type (principal); Z79.899 Other long term (current) drug therapy
CPT/HCPCS: 36415; 85025; 85048

== ENCOUNTER 2023-04-12 10:25 | Outpatient (AMB) | payer OTHER, SELFPAY ==
--- NOTE | 2023-04-12 10:36 | A.OFFVIS_ITS ---
Intake Vital Signs 04/12/23 11:22 Height 6 ft 1 in Weight 268 lb 8.368 oz BMI 35.4 BP 97/62 Blood Pressure Location Rt brachial Position Sitting Pulse 82 Intake Visit Reasons: Follow up Intake Note: Patient presents to in office visit today in follow up for fecal incontinence. CC: Patient reports sometimes he feels like having a BM but other times stools come out while sleeping or while working. He reports when he has this accid ents stools are diarrhea. Onset of incontinence per patient about two months ago. Pt also reports he hurt his back at work a couple of days ago. Case Monitor Required: No Accompanied by: Self / Same As Patient Allergies No Known Allergies [No Known Allergies*] Allergy (Verified 04/12/23 11:24) HPI Follow up HPI Details Assessment & Plan (1) Chronic idiopathic constipation: ?Code(s): K59.04 - Chronic idiopathic constipation ?Plan: Carmen says she can only prep for more that 1 day if they admit me into the hospital for it. This is not a possiblity as no insurance will pay for this. but ALSO I question if he has the mental capacity to follow the instructions for a 2 day prep given his low intellectual function. He continues on maximum dose Linzess, senna, fiber, MiraLax, milk of magnesia, and he has even use lactulose in the past.? He is also on Reglan date with the bowels and with gastroparesis. I think we should attempt a cologuard screening. ROV 6 weeks. (2) Colon cancer screening: ?Code(s): Z12.11 - Encounter for screening for malignant neoplasm of colon (3) Delayed gastric emptying: ?Code(s): K30 - Functional dyspepsia CORRESPONDENCE On 04/06/23 @ 16:20 Odin Perez Wrote To Gordillo,November Pt called back and he said he is not able to come in tomorrow but can come next Monday. Added for 04/11. On 04/06/23 @ 16:15 Odin Perez Wrote To Odin Perez 2nd attempt, called Patient and LVM requ esting call back to schedule appt. On 04/06/23 @ 15:13 Odin Perez Wrote To Odin Perez Called patient twice to cellphone but unable to LVM as VM was full. Called home ph number and LVM requesting a call back. On 04/06/23 @ 14:54 Susy Gordillo Wrote To Odin Perez Please call and see if he can come in.... On 04/06/23 @ 14:39 Christianne Yip Wrote To Susy Gordillo (2) Patient called and complaining about having 3 BM accident last night on him self. He wanted to talk with the provider. 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 He is using Tylenol and spray on icy hot. He is having diarrhea bout twice a month. I ask him to write down exactly what he ate over 25 hours so we can figure this out. He may be lactose intolerant etc or eating more fiber; but he has very poor insight so taking a hx after the fact is difficult. He has had this watery diarrhea at various times of the day over night or at work - which disturbs him. 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 mellitus 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 Diabetic polyneuropathy associated with 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 mellitus Schizo affective schizophrenia Diabetes type 2, uncontrolled Surgical History History of repair of congenital cleft palate Hx of circumcision Family History Father HTN (hypertension) Mother Diabetes Other Mental health problem Social History Household Members: None Housing: Apartment Are you a primary nursing care attendant to a significant other at home: No Do you presently have visiting nurse or other home services: Yes Alcohol intake: former Patient Tobacco Use Status: Former Tobacco user Tobacco use type: Cigarette Cigarettes Per Day: 15 Years Smoked: 8 quit 30 years ago e-Cigarette/Vaping Use: Never Used Second Hand Smoke Exposure: No service: No Current occupational status: employed Current occupation: [employer] Cognitive needs: No Hearing needs: No Vision needs: Yes (glasses) Review of Systems Const Denies fatigue, Denies fever(s), Denies night sweats, Denies poor appetite and Denies weight loss Eyes Details: glasses Reports requires corrective lenses ENT Reports Normal hearing present, Denies dental pain, Denies dysphagia, Denies hearing loss, Denies mouth pain, Denies odynophagia, Denies throat swelling, Denies tongue swelling and Reports other (Dentition adequate) Card Reports no additional complaints Resp Reports no additional complaints GI Denies abdominal pain, Denies melena, Denies bloating, Denies hematochezia, Reports constipation, Denies GI cramping, Denies dysphagia, Denies excessive flatus, Reports early satiety, Reports heartburn, Reports diarrhea, Denies nausea, Denies odynophagia, Denies vomiting and Denies hematemesis Skin/Breast Denies pruritus, Denies lesions, Denies rash and Denies jaundice Neuro Reports Normal hearing present and Denies Abnormal speech present Endo Denies fatigue Aller/Immun Denies throat swelling and Denies tongue swelling Physical Exam Vital Signs: Last Vital Signs Pulse 82 04/12/23 11:22 BP 97/62 04/12/23 11:22 BMI result Body Mass Index 35.4 Const General: cooperative, no acute distress, well developed and well groomed Nutritional Appearance: well nourished and obese Orientation/consciousness: oriented to person, oriented to place and oriented to time Limitations: No language barrier, ambulation with cane and other limitations HEENT Head: Yes normocephalic and Yes atraumatic Eyes General: appearance normal, both eyes and all related structures Pupils: Equal, round and reactive pupils present Neck Neck: Yes normal visual inspection and Yes no lymphadenopathy Thyroid: Thyroid normal Resp Effort & Inspection: normal respiratory effort and able to speak in complete sentences Auscultation: clear to auscultation bilaterally Cardio Rate: regular rate Rhythm: regular rhythm Heart sounds: Normal, physiologic split S2 sound present Peripheral pulses: radial pulses present and posterior tibial pulses present GI Inspection: No distended, Yes Abdominal panniculus present and Yes obesity Palpation (GI): Soft to palpation, nontender, no guarding, not rigid and No hepatosplenomegaly present Percussion: Yes normal to percussion Auscultation: normal bowel sounds Rectal Exam - Male: Yes deferred Skin General skin exam: no rashes or lesions noted, turgor normal, skin not dry, no jaundice, No spider nevi and no striae Rashes: no rashes Nails: normal Neuro General: oriented to person, oriented to place and oriented to time Cranial nerves: Yes Equal, round and reactive pupils present and Yes Normal hearing present Speech: No Abnormal speech present Extrem General: Yes normal to inspection, No clubbing, No cyanosis and No edema Psych Appearance: grossly normal and well kempt Mental Status: mental status grossly normal Speech and movement: Normal speech and movement present Affect: normal affect Attitude: cooperative Thought process: Normal thought process present and not confabulating Thought content: Normal thought content present Insight: Poor insight present (Psych) Judgement: Poor judgement present (Psych) Assessment & Plan Assessment & Plan (1) Chronic idiopathic constipation: Code(s): K59.04 - Chronic idiopathic constipation Plan: HE is currently out on [employer] 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 He is using Tylenol and spray on icy hot. He is having diarrhea bout twice a month. I ask him to write down exactly what he ate over 25 hours so we can figure this out. He may be lactose intolerant etc or eating more fiber; but he has very poor insight so taking a hx after the fact is difficult. He has had this watery diarrhea at various times of the day over night or at work - which disturbs him. CURTIS keep 05/12 appt (2) Delayed gastric emptying: Code(s): K30 - Functional dyspepsia Coding Level of Care Code Est Pt Level 3 (16657) Diagnoses Chronic idiopathic constipation K59.04 Delayed gastric emptying K30
[2023-04-12 11:22] VITALS: BP 97/62; PULSE 82; BMI 35.4
== END 2023-04-12 12:21 | disposition home or self-care (01) ==
PROVIDERS: PCP Internal Medicine; Visit Provider Nurse Practitioner
DX: K59.04 Chronic idiopathic constipation (principal); K30 Functional dyspepsia
CPT/HCPCS: 99213

== ENCOUNTER → 2023-04-12 10:25 | Outpatient (BNVA) | payer OTHER, SELFPAY | PROVIDERS: PCP Internal Medicine; Visit Provider Nurse Practitioner | DX: K59.04 Chronic idiopathic constipation (principal); K30 Functional dyspepsia | CPT/HCPCS: 99212 ==

== ENCOUNTER 2023-04-24 08:32 | Outpatient (REF) | payer OTHER, SELFPAY ==
[2023-04-24 09:42] LABS: Appearance Urine Clear; Color Urine Yellow; Glucose Urine UA >=1000 mg/dL (Negative); Leukocyte Esterase Urine Negative (Negative); Nitrite Urine Negative (Negative); Specific Gravity - Urine 1.025 (1.005-1.025); UMIC TRIGGER UACC YES; Urine Blood Negative (Negative); Urine Ketones Negative (Negative); Urine Protein Negative (Neg-Trace)
[2023-04-24 09:44] LABS: Basophils Percent Auto 0.2 % (0-2); Mean Corpuscular Volume 86.6 fL (80.0-98.0); PLT CLUMP 1; SCAN SMEAR FLAG 1
[2023-04-24 09:46] LABS: Hematocrit 49.2 % (42.0-52.0); Hemoglobin 16.8 g/dl (14.0-18.0); Imm Gran Abs Auto 0.04 X10*3/uL (0.00-0.03); Imm Gran Pct Auto 0.6 % (0.0-0.4); Lymphocytes Absolute Auto 1.4 X10*3/uL (1.2-4.9); Lymphocytes Percent Auto 21.4 % (20-40); Mean Corpuscular HGB Conc 34.1 g/dl (31.0-36.0); Mean Corpuscular Hemoglobin 29.6 pg (27.0-33.0); Mean Platelet Volume 10.5 fL (9.4-12.4); Monocytes Absolute Auto 0.5 X10*3/uL (0.1-1.2); Monocytes Percent Auto 7.3 % (2-11); Neutrophils Absolute Auto 4.5 x10*3/uL (2.0-8.3); Neutrophils Percent Auto 70.5 % (45-73); Red Blood Count 5.68 X10*6/uL (4.60-5.80)
[2023-04-24 09:51] LABS: Bacteria Urine None Seen (None Seen); Hyaline Casts Urine 0-2 /LPF (0-2); RBC Urine 0-2 /HPF (0-2); Squamous Epithelial Cell Urine 0-2 /HPF (0-2); WBC Urine 0-5 /HPF (0-5)
[2023-04-24 09:55] LABS: MANUAL DIFF FLAG NO; Platelet Count 120 X10*3/uL (160-400); White Blood Count 6.3 X10*3/uL (4.8-10.8)
[2023-04-24 09:57] LABS: Estimated Average Glucose 148 mg/dL; Hemoglobin A1c % 6.8 % (<6.0)
[2023-04-24 10:29] LABS: Alanine Aminotransferase 71 U/L (0-40); Albumin Level 4.5 g/dL (3.5-5.0); Alkaline Phosphatase 137 U/L (39-117); Anion Gap 13 (12-20); Aspartate Amino Transferase 30 U/L (5-37); Bilirubin Total 0.6 mg/dL (0.0-1.0); Blood Urea Nitrogen 20 mg/dL (9-16); Calcium 9.9 mg/dL (8.4-10.2); Carbon Dioxide 25 mmol/L (22-29); Chloride 109 mmol/L (96-108); Cholesterol 165 mg/dL (<200); Estimated Glomerular Filt Rate > 60; Glucose Fasting 176 mg/dL (60-99); HDL Cholesterol 36 mg/dL (>40); LDL Cholesterol Calculated 74 mg/dL (<100); Potassium 4.1 mmol/L (3.3-5.1); Sodium 143 mmol/L (135-145); Total Protein 7.8 g/dL (6.5-8.0); Triglycerides 275 mg/dL (<150)
[2023-04-24 10:38] LABS: TSH reflex Free T4 2.01 uIU/mL (0.32-4.0); Vitamin D 25-OH Total 43.9 ng/mL (>30)
[2023-04-24 10:50] LABS: Folate 7.3 ng/mL (> or = 4.0); Vitamin B12 828 pg/mL (200-900)
[2023-04-24 11:33] LABS: Creatinine Urine 58.82 mg/dL; Microalbumin Urine < 5.0 mg/L
== END 2023-04-24 08:33 | disposition home or self-care (01) ==
LOC: HO.LAB 08:32
PROVIDERS: PCP Internal Medicine; Visit Provider Internal Medicine
DX: I10 Essential (primary) hypertension (principal); E78.00 Pure hypercholesterolemia, unspecified; E53.8 Deficiency of other specified B group vitamins; E11.9 Type 2 diabetes mellitus without complications; E55.9 Vitamin D deficiency, unspecified
CPT/HCPCS: 36415; 80053; 80061; 81001; 82043; 82306; 82570; 82607; 82746; 83036; 84443; 85025

== ENCOUNTER 2023-05-02 07:58 | Outpatient (REF) | payer OTHER, SELFPAY ==
[2023-05-02 08:23] LABS: MANUAL DIFF FLAG NO
[2023-05-02 08:36] LABS: Hematocrit 46.2 % (42.0-52.0); Hemoglobin 15.9 g/dl (14.0-18.0); Imm Gran Abs Auto 0.03 X10*3/uL (0.00-0.03); Imm Gran Pct Auto 0.5 % (0.0-0.4); Lymphocytes Absolute Auto 1.4 X10*3/uL (1.2-4.9); Lymphocytes Percent Auto 23.8 % (20-40); Mean Corpuscular HGB Conc 34.4 g/dl (31.0-36.0); Mean Corpuscular Hemoglobin 29.1 pg (27.0-33.0); Mean Corpuscular Volume 84.6 fL (80.0-98.0); Mean Platelet Volume 10.3 fL (9.4-12.4); Monocytes Absolute Auto 0.5 X10*3/uL (0.1-1.2); Monocytes Percent Auto 8.3 % (2-11); Neut%MD 67.4 %; Neutrophils Percent Auto 67.4 % (45-73); Platelet Count 125 X10*3/uL (160-400); Red Blood Count 5.46 X10*6/uL (4.60-5.80); Red Cell Distribution Width 12.9 % (11.0-16.0)
== END 2023-05-02 07:59 | disposition home or self-care (01) ==
LOC: HO.LABR 07:58
PROVIDERS: PCP Internal Medicine; Visit Provider Psychiatry & Neurology Psychiatry
DX: F25.0 Schizoaffective disorder, bipolar type (principal); Z79.899 Other long term (current) drug therapy
CPT/HCPCS: 36415; 85025; 85048

== ENCOUNTER 2023-05-11 10:14 | Outpatient (AMB) | payer OTHER, SELFPAY ==
[2023-05-11 10:54] VITALS: BP 106/67; PULSE 83; BMI 35.7
--- NOTE | 2023-05-11 10:54 | MHC.OFFVIS ---
Intake Vital Signs 05/11/23 10:54 Height 6 ft 1 in Weight 270 lb 4.587 oz BMI 35.7 BP 106/67 Blood Pressure Location Rt brachial Position Sitting Pulse 83 Intake Visit Reasons: 6 week follow up Intake Note: Patient presents to in office visit today in 6 weeks follow up of diarrhea and constipation. CC: Patient c/o constipation and diarrhea sometimes, 3/10 abdominal pain, and occasional nausea. Patient reports he was having black diarrhea about 2 weeks ago. He also reports feeling tired all the time. He states he sleeps well sometimes. He reports he takes MOM sometimes and is able to go to the BR when he does. 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 He is using Tylenol and spray on icy hot. He is having diarrhea bout twice a month. I ask him to write down exactly what he ate over 25 hours so we can figure this out. He may be lactose intolerant etc or eating more fiber; but he has very poor insight so taking a hx after the fact is difficult. He has had this watery diarrhea at various times of the day over night or at work - which disturbs him. ROWilfred keep 05/12 appt (2) Delayed gastric emptying: Code(s): K30 - Functional dyspepsia TODAYS VISIT He says his back is better. He feels he is constipated, but it is now starting to go through. He admits that he forgot to take his medicines last night. He feels the MOM is a good addition to his regimen. He also has occasional diarrhea that he admits is reactive to pushing out hard stools. He also admits that. he does forget his regular CIC meds frequently. He continues on his Linzess 290 micro g, milk of magnesia, fiber tablets, MiraLax, senna, for constipation along with his metoclopramide 5 mg 3 times a day doctor sit sodium twice a day, and bisacodyl as needed. He also has simethicone for bloating. He says his NIDDM is now well controlled. He has an RN checking in on him weekly. ROV 3 mos. [facility] Medical History (Updated 03/30/23 @ 10:34 by RAHUL Romero) Gastroenteritis Healed wound Chronic idiopathic constipation Elevated LFTs Bowel obstruction Chronic idiopathic constipation Melena Right hand pain Hospital discharge follow-up Knee osteoarthritis Pain in both feet Knee pain, bilateral Obesity (BMI 30-39.9) Schizoaffective disorder Pure hypercholesterolemia Benign essential hypertension Chronic kidney disease (CKD), stage III (moderate) Type 2 diabetes mellitus with diabetic chronic kidney disease Morbid obesity Dyslipidemia 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 mellitus 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 Diabetic polyneuropathy associated with 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 mellitus Schizo affective schizophrenia Diabetes type 2, uncontrolled Surgical History History of repair of congenital cleft palate Hx of circumcision Family History Father HTN (hypertension) Mother Diabetes Other Mental health problem Social History Household Members: None Housing: Apartment Are you a primary healthcare liaison to a significant other at home: No Do you presently have visiting nurse or other home services: Yes Alcohol intake: former Patient Tobacco Use Status: Former Tobacco user Tobacco use type: Cigarette Cigarettes Per Day: 15 Years Smoked: 8 quit 30 years ago e-Cigarette/Vaping Use: Never Used Second Hand Smoke Exposure: No service: No Current occupational status: employed Current occupation: [employer] Cognitive needs: No Hearing needs: No Vision needs: Yes (glasses) Review of Systems Const Denies fatigue, Denies fever(s), Denies night sweats, Denies poor appetite and Denies weight loss Eyes Details: Glasses Reports requires corrective lenses ENT Reports Normal hearing present, Denies dental pain, Denies dysphagia, Denies hearing loss, Denies mouth pain, Denies odynophagia, Denies throat swelling, Denies tongue swelling and Reports other (Dentition adequate) Card Reports no additional complaints Resp Reports no additional complaints GI Denies abdominal pain, Denies melena, Denies bloating, Denies hematochezia, Reports constipation, Denies GI cramping, Denies dysphagia, Denies excessive flatus, Reports early satiety, Denies heartburn, Reports diarrhea, Denies nausea, Denies odynophagia, Denies vomiting and Denies hematemesis Musc Reports back pain Skin/Breast Denies pruritus, Denies lesions, Denies rash and Denies jaundice Neuro Reports Normal hearing present and Denies Abnormal speech present Endo Denies fatigue Aller/Immun Denies throat swelling and Denies tongue swelling Physical Exam Vital Signs: Last Vital Signs Pulse 83 05/11/23 10:54 BP 106/67 05/11/23 10:54 BMI result Body Mass Index 35.7 Const General: cooperative, no acute distress, well developed and well groomed Nutritional Appearance: well nourished and obese morbidly obese Orientation/consciousness: oriented to person, oriented to place and oriented to time Limitations: No language barrier and other limitations HEENT Head: Yes normocephalic and Yes atraumatic Eyes General: appearance normal, both eyes and all related structures Pupils: Equal, round and reactive pupils present Neck Neck: Yes normal visual inspection and Yes no lymphadenopathy Thyroid: Thyroid normal Resp Effort & Inspection: normal respiratory effort and able to speak in complete sentences Auscultation: clear to auscultation bilaterally Cardio Rate: regular rate Rhythm: regular rhythm Heart sounds: Normal, physiologic split S2 sound present Peripheral pulses: radial pulses present and posterior tibial pulses present GI Inspection: No distended, Yes Abdominal panniculus present and Yes obesity Palpation (GI): Soft to palpation, nontender, no guarding, not rigid and No hepatosplenomegaly present Percussion: Yes normal to percussion Auscultation: normal bowel sounds Rectal Exam - Male: Yes deferred Skin General skin exam: no rashes or lesions noted, turgor normal, skin not dry, no jaundice, No spider nevi and no striae Rashes: no rashes Nails: normal Neuro General: oriented to person, oriented to place and oriented to time Cranial nerves: Yes Equal, round and reactive pupils present and Yes Normal hearing present Speech: No Abnormal speech present Extrem General: Yes normal to inspection, No clubbing, No cyanosis and No edema Psych Appearance: grossly normal and well kempt Mental Status: mental status grossly normal Speech and movement: Normal speech and movement present Affect: normal affect Attitude: cooperative Thought process: Normal thought process present and not confabulating Thought content: Normal thought content present Insight: Limited insight present (Psych) and Poor insight present (Psych) Judgement: Limited judgement present (Psych) and Poor judgement present (Psych) Assessment & Plan Assessment & Plan (1) Chronic idiopathic constipation: Code(s): K59.04 - Chronic idiopathic constipation Plan: He says his back is better. He feels he is constipated, but it is now starting to go through. He admits that he forgot to take his medicines last night. He feels the MOM is a good addition to his regimen. He also has occasional diarrhea that he admits is reactive to pushing out hard stools. He also admits that. he does forget his regular CIC meds frequently. He continues on his Linzess 290 micro g, milk of magnesia, fiber tablets, MiraLax, senna, for constipation along with his metoclopramide 5 mg 3 times a day doctor sit sodium twice a day, and bisacodyl as needed. He also has simethicone for bloating. He says his NIDDM is now well controlled. He has an RN checking in on him weekly. ROV 3 mos. (2) Delayed gastric emptying: Code(s): K30 - Functional dyspepsia Coding Level of Care Code Est Pt Level 3 (32180) Diagnoses Chronic idiopathic constipation K59.04 Delayed gastric emptying K30
== END 2023-05-11 11:25 | disposition home or self-care (01) ==
PROVIDERS: PCP Internal Medicine; Visit Provider Nurse Practitioner
DX: K59.04 Chronic idiopathic constipation (principal); K30 Functional dyspepsia
CPT/HCPCS: 99213

== ENCOUNTER → 2023-05-11 10:14 | Outpatient (BNVA) | payer OTHER, SELFPAY | PROVIDERS: PCP Internal Medicine; Visit Provider Nurse Practitioner | DX: K59.04 Chronic idiopathic constipation (principal); K30 Functional dyspepsia; Z79.899 Other long term (current) drug therapy | CPT/HCPCS: 99212 ==

== ENCOUNTER 2023-05-12 12:15 | Outpatient (AMB) | payer OTHER, SELFPAY ==
[2023-05-12 12:32] VITALS: BP 118/84; PULSE 91; O2SAT 99; BMI 35.5
--- NOTE | 2023-05-12 12:32 | MHC.PC.OV ---
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 Required: No Accompanied by: Self / Same As Patient Allergies No Known Allergies [No Known Allergies*] Allergy (Verified 05/12/23 12:54) Medication List - Last Reconciled 05/12/23 by Luis Manuel Garcia MD acetaminophen (Tylenol Extra Strength) 500 mg PO QID PRN atorvastatin 10 mg PO DAILY benztropine 0.5 mg PO BID bisacodyl (Dulcolax (bisacodyl)) 2 tabs qhs and 1 qam PO bedtime; 30 days blood sugar diagnostic (FreeStyle Lite Strips) Tests 5X/day blood-glucose meter (FreeStyle Lite Meter kit) Tests 4 X/day cholecalciferol (vitamin D3) 25 mcg PO DAILY clozapine 100 mg PO TID docusate sodium 100 mg PO BID empagliflozin (Jardiance) 25 mg PO QAM flash glucose scanning reader ([employer] [address] [place]) As directed furosemide 20 mg PO DAILY gabapentin 300 mg PO BEDTIME 90 days hydroxyzine pamoate 50 mg PO TID PRN L.acidoph, paracasei,B. lactis (Digestive Advantage Advanced Probiotic) cells PO lancets (FreeStyle Lancets) Tests 5x/day linaclotide (Linzess) 290 mcg PO QAM 30 days magnesium hydroxide (Milk Of Magnesia Concentrated) 20 mL PO DAILY PRN metformin 1,000 mg (2 x 500 mg) PO BID 90 days methylcellulose (laxative) (Fiber Therapy (methylcellulose)) 1,000 mg (2 x 500 mg) PO TID metoclopramide HCl 5 mg PO TID pen needle, diabetic (BD Ultra-Fine Original Pen Needle) As directed daily polyethylene glycol 3350 (Miralax) 17 grams PO BID sennosides (senna) 17.2 mg (2 x 8.6 mg) PO BEDTIME sildenafil 50 mg PO DAILY PRN simethicone 180 mg PO TID Tresiba FlexTouch U-200 (insulin degludec) 30 units (0.15 mL) subcut DAILY 90 days NS Tobacco use date assessed: 05/12/23 Dental Screening Dental Screen Date: 05/12/23 Did you have a dental visit in the last 12 months?: No Did you have a dental problem in the last 6 months where you did not have access to dental care?: No Was dental information given to patient?: No HPI 3mth f/u HPI Details Patient comes in today for his follow up visit States that he feels okay He denies any headaches or dizziness Denies any chest pains, no SOB No nausea/vomiting, still has on and off abdominal pain but states that his symptoms have been better under the management of GI Still has on and off diarrhea and sometimes gets constipated - continues to follow up with GI for his stomach issues Needs his pen needles Rx refilled Had his follow up labs done a couple of weeks ago - to discuss his results [facility] Medical History Gastroenteritis Healed wound Chronic idiopathic constipation Elevated LFTs Bowel obstruction Chronic idiopathic constipation Melena Right hand pain Hospital discharge follow-up Knee osteoarthritis Pain in both feet Knee pain, bilateral Obesity (BMI 30-39.9) Schizoaffective disorder Pure hypercholesterolemia Benign essential hypertension Chronic kidney disease (CKD), stage III (moderate) Type 2 diabetes mellitus with diabetic chronic kidney disease Morbid obesity Dyslipidemia 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 mellitus 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 Diabetic polyneuropathy associated with 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 mellitus Schizo affective schizophrenia Diabetes type 2, uncontrolled Surgical History History of repair of congenital cleft palate Hx of circumcision Family History Father HTN (hypertension) Mother Diabetes Other Mental health problem Social History Household Members: None Housing: Apartment Are you a primary director of home care hospice to a significant other at home: No Do you presently have visiting nurse or other home services: Yes Alcohol intake: former Patient Tobacco Use Status: Former Tobacco user Tobacco use type: Cigarette Cigarettes Per Day: 15 Years Smoked: 8 quit 30 years ago e-Cigarette/Vaping Use: Never Used Second Hand Smoke Exposure: No service: No Current occupational status: employed Current occupation: [employer] Cognitive needs: No Hearing needs: No Vision needs: Yes (glasses) Questionnaire PHQ-9 Over the last 2 weeks, how often have you been bothered by any of the following problems? 1. Little interest or pleasure in doing things: not at all 2. Feeling down, depressed, or hopeless: not at all 3. Trouble falling or staying asleep, or sleeping too much: nearly every day 4. Feeling tired or having little energy: more than half the days 5. Poor appetite or overeating: more than half the days 6. Feeling bad about yourself - or that you are a failure or have let yourself or your family down: several days 7. Trouble concentrating on things, such as reading the newspaper or watching television: several days 8. Moving or speaking so slowly that other people could have noticed. Or the opposite - being so fidgety or restless that you have been moving around a lot more than usual: several days 9. Thoughts that you would be better off or of hurting yourself in some way: not at all Total score: 10 Depression Screening Interpretation: Positive Depression Screening Follow-up: Existing condition and In treatment 35817 - PHQ-9 Billing: Yes Source: Developed by Drs. Foster Queen, Shahla Vo, Lambert Sanchez and colleagues, with an educational german from [employer]. Thrive Questionnaire Date Thrive assessed: 05/12/23 I am a: Patient What is your living situation today?: I have a steady place to live Within the past 12 months, did the food you bought not last and you didn't have the money to get more?: Never true Within the past 12 months, did you worry whether your food would run out before you got money to buy more?: Never true Do you have trouble paying for medicines?: No Do you have trouble getting transportation to medical appointments?: No Do you have trouble paying your heating and electricity bill?: No Do you have trouble taking care of your child, family member or friend?: No Do you have trouble with day-to-day activities such as bathing, preparing meals, shopping, managing finances, etc.?: No Are you currently unemployed and looking for a job?: No Are you interested in more education?: No Please select the resources that you would like help with: None Currently or been in a relationship where the following occur: no concerns reported AUDIT C Alcohol Use Questionnaire (AUDIT-C) 1. How often do you have a drink containing alcohol?: Never 3. How often do you have six or more drinks on one occasion?: Never Total Score: 0 Score Reviewed/Action Taken: Yes KENDRA-7 AMB Questionnaire KENDRA-7 Date KENDRA - 7 assessed: 05/12/23 Feeling nervous, anxious, or on edge: 0 = Not at all Not being able to stop or control worryin = Not at all Worrying too much about different things: 0 = Not at all Trouble relaxin = Not at all Being so restless that it is hard to sit still: 0 = Not at all Becoming easily annoyed or irritable: 0 = Not at all Feeling afraid as if something awful might happen: 0 = Not at all Total KENDRA-7 score (0-4 normal; 5-9 mild; 10-14 moderate; 15-21 severe): 0 Source: Developed by Drs. Foster Queen, Shahla Vo, Lambert Sanchez and colleagues, with an educational german from [employer]. Review of Systems Const Denies chills, Denies fatigue, Denies fever(s) and Denies headache(s) ENT Denies dysphagia, Denies dizziness, Denies otalgia, Denies headache(s), Reports hearing loss (would like to have his hearing checked), Denies neck pain, Denies odynophagia and Denies sore throat Card Denies chest pain, Denies palpitations and Denies dyspnea Resp Denies cough, Denies dyspnea and Denies wheezing GI Reports abdominal pain (on and off), Reports constipation (on and off), Denies dysphagia, Denies heartburn, Reports diarrhea (on and off), Denies nausea, Denies odynophagia and Denies vomiting Denies dysuria, Denies nocturia and Denies urinary frequency Musc Reports arthralgias (both knees, on and off) and Denies neck pain Neuro Denies dizziness and Denies headache(s) Endo Denies fatigue and Denies palpitations Aller/Immun Denies wheezing Physical exam (Primary Care) Vital Signs: Last Vital Signs Pulse 91 05/12/23 12:32 BP 118/84 05/12/23 12:32 Pulse Ox 99 05/12/23 12:32 Oxygen Delivery Method Room Air 05/12/23 12:32 BMI result Body Mass Index 35.5 Tobacco/Smoking Status: Tobacco use Status Tobacco use date assessed 05/12/23 05/12/23 12:40 Patient Tobacco Use Status Former Tobacco user 05/12/23 12:40 Tobacco use type Cigarette 05/12/23 12:40 e-Cigarette/Vaping Use Never Used 05/12/23 12:40 PHQ-9: PHQ-9 Score PHQ-9: Total score 10 05/12/23 12:59 Depression Screening Interpretation: Positive Depression Screening Follow-up: Existing condition and In treatment Thrive Assessment: Date of Thrive Assessment Date Thrive assessed 05/12/23 05/12/23 12:40 Currently or been in a relationship where the following occur: no concerns reported Const General: no acute distress and alert HENMT Ears: TM's normal bilaterally and EAC's normal Throat: Yes posterior oropharynx normal and Yes tonsils normal (no TP congestion noted) Neck Neck: Yes no lymphadenopathy and Yes supple Resp Auscultation: clear to auscultation bilaterally, no rales and no wheezes Cardio Rate: regular rate Rhythm: regular rhythm Heart sounds: no murmurs GI Palpation (GI): Soft to palpation and nontender Auscultation: normal bowel sounds Skin Rashes: no rashes Extrem General: Yes no clubbing, cyanosis or edema Right lower extremity: knee Details: tenderness; no swelling Left lower extremity: knee Details: tenderness; no swelling Results Reviewed Results Reviewed: Laboratory Tests 04/24/23 04/24/23 04/24/23 08:46 08:55 08:55 WBC Hgb Hct Plt Count Sodium 143 Potassium 4.1 Creatinine 1.14 Estimated GFR > 60 Fasting Glucose 176 H Hemoglobin A1c % 6.8 H Calcium 9.9 AST 30 ALT 71 H Triglycerides 275 H Cholesterol 165 LDL Cholesterol, Calc 74 HDL Cholesterol 36 L Vitamin B12 828 25-OH Vitamin D Total 43.9 Folate 7.3 TSH 2.01 Ur Specific Alvin 1.025 Urine Protein Negative Urine Glucose (UA) >=1000 H Urine Blood Negative 05/02/23 08:20 WBC 6.0 Hgb 15.9 Hct 46.2 Plt Count 125 L Sodium Potassium Creatinine Estimated GFR Fasting Glucose Hemoglobin A1c % Calcium AST ALT Triglycerides Cholesterol LDL Cholesterol, Calc HDL Cholesterol Vitamin B12 25-OH Vitamin D Total Folate TSH Ur Specific Alvin Urine Protein Urine Glucose (UA) Urine Blood Assessment and Plan Assessment & Plan (1) Type 2 diabetes mellitus with diabetic chronic kidney disease: Code(s): E11.22 - Type 2 diabetes mellitus with diabetic chronic kidney disease Qualifiers: Chronic kidney disease stage: stage 3 (moderate) Chronic kidney disease stage 3 subtype: unspecified whether 3a or 3b 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 Qualified Code(s): E11.22 - Type 2 diabetes mellitus with diabetic chronic kidney disease; N18.30 - Chronic kidney disease, stage 3 unspecified; Z79.4 - FPC (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 Plan: HgbA1c was at 6.8% on his labs done a couple of weeks ago (was at 6.7% previously) - goal is < 7.0% Reinforced diabetic diet Continue Metformin 500 mg 2 tablets BID, Jardiance 25 mg QD and Tresiba 30 units QD (pen needle Rx refilled, per request) Follow-up with endocrinology as scheduled (2) Pure hypercholesterolemia: Code(s): E78.00 - Pure hypercholesterolemia, unspecified Plan: Results of his labs done a couple of weeks ago reviewed and discussed with patient Reinforced low cholesterol diet Continue Atorvastatin 10 mg QD Will recheck his labs and fasting lipids in 3 months for follow up (3) Benign essential hypertension: Code(s): I10 - Essential (primary) hypertension Plan: Reinforced low-sodium diet - goal is systolic BP of at least 120 to 130 mm or less Continue Furosemide 20 mg QD (4) Chronic kidney disease (CKD), stage III (moderate): Code(s): N18.30 - Chronic kidney disease, stage 3 unspecified Qualifiers: Chronic kidney disease stage 3 subtype: unspecified whether 3a or 3b Qualified Code(s): N18.30 - Chronic kidney disease, stage 3 unspecified Plan: Renal function still appears stable on his recent labs Will continue to monitor his renal function closely/regularly (5) Chronic idiopathic constipation: Code(s): K59.04 - Chronic idiopathic constipation Plan: Patient is again encouraged to increase his oral fluids and dietary fiber and to continue on Linzess 290 mcg QD, Docusate 100 mg BID PRN, Miralax 17 gm QD, MOM at bedtime PRN and Fiber Therapy 1000 mg TID Follow-up with GI as scheduled for continuing management of his chronic constipation He was scheduled for colonoscopy with Dr. Ponce last month on 03/17/23 but the procedure was cancelled as it appears that he could not do the prep for the procedure properly (6) Hearing impairment: Code(s): H91.90 - Unspecified hearing loss, unspecified ear Qualifiers: Hearing loss type: unspecified Laterality: unspecified laterality Qualified Code(s): H91.90 - Unspecified hearing loss, unspecified ear Plan: Per request, he was referred again for hearing evaluation Patient has been referred a couple of times in the past but he never was scheduled for his test Recalls that someone called him a few times to schedule something but he never called them back - advised that this time, he needs to be sure to answer the phone when someone calls him as it is likely that they have been trying to reach him to get this scheduled but was never able to because he did not call them back (7) Schizoaffective disorder: Code(s): F25.9 - Schizoaffective disorder, unspecified Qualifiers: Schizoaffective disorder type: unspecified Qualified Code(s): F25.9 - Schizoaffective disorder, unspecified Plan: Continue Clozapine 100 mg 3 tablets daily at bedtime and Benztropine 0.5 mg BID Follow-up with Psychiatry as scheduled (8) Obesity (BMI 30-39.9): Code(s): E66.9 - Obesity, unspecified Plan: Reinforced diet/exercise as tolerated/lose weight Plan Follow up in 3 months Orders: Orders Complete Blood Count Auto Diff 3 Months I10 - Essential (primary) hypertension Comprehensive [place]. Panel Fast 3 Months E78.00 - Pure hypercholesterolemia, unspecified TSH reflex Free T4 3 Months E78.00 - Pure hypercholesterolemia, unspecified Vitamin D 25-OH Total 3 Months E55.9 - Vitamin D deficiency, unspecified Lipid Panel 3 Months E78.00 - Pure hypercholesterolemia, unspecified Hemoglobin A1c 3 Months E11.9 - Type 2 diabetes mellitus without complications Microalbumin, Random (w Creat) 3 Months E11.9 - Type 2 diabetes mellitus without complications UA CC w/rflx Micro + Cult 3 Months R30.0 - Dysuria Referrals Speech and Hearing Referral H91.90 - Unspecified hearing loss, unspecified ear Medications: Refilled pen needle, diabetic (BD Ultra-Fine Original Pen Needle) As directed daily 100 ea 3RF Coding Level of Care Code Est Pt Level 4 (49523) Diagnoses Type 2 diabetes mellitus with stage 3 chronic kidney disease, with long-term current use of insulin, unspecified whether stage 3a or 3b CKD E11.22; N18.30; Z79.4 Chronic kidney disease stage: stage 3 (moderate) Chronic kidney disease stage 3 subtype: unspecified whether 3a or 3b 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
== END 2023-05-12 13:13 | disposition home or self-care (01) ==
PROVIDERS: PCP Internal Medicine; Visit Provider Internal Medicine
DX: E11.22 Type 2 diabetes mellitus with diabetic chronic kidney disease (principal); N18.30 Chronic kidney disease, stage 3 unspecified; Z79.4 Long term (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; F25.9 Schizoaffective disorder, unspecified; E78.00 Pure hypercholesterolemia, unspecified; I12.9 Hypertensive chronic kidney disease with stage 1 through stage 4 chronic kidney disease, or unspecified chronic kidney disease; K59.04 Chronic idiopathic constipation; E66.9 Obesity, unspecified
CPT/HCPCS: 99214

== ENCOUNTER 2023-05-30 08:27 | Outpatient (REF) | payer OTHER, SELFPAY ==
[2023-05-30 08:41] LABS: MANUAL DIFF FLAG NO
[2023-05-30 09:06] LABS: Basophils Percent Auto 0.2 % (0-2); Hematocrit 45.8 % (42.0-52.0); Imm Gran Abs Auto 0.03 X10*3/uL (0.00-0.03); Imm Gran Pct Auto 0.5 % (0.0-0.4); Lymphocytes Absolute Auto 1.3 X10*3/uL (1.2-4.9); Lymphocytes Percent Auto 22.2 % (20-40); Mean Corpuscular HGB Conc 34.9 g/dl (31.0-36.0); Mean Corpuscular Hemoglobin 29.5 pg (27.0-33.0); Mean Corpuscular Volume 84.3 fL (80.0-98.0); Mean Platelet Volume 10.3 fL (9.4-12.4); Monocytes Absolute Auto 0.4 X10*3/uL (0.1-1.2); Neutrophils Absolute Auto 4.1 x10*3/uL (2.0-8.3); Neutrophils Percent Auto 70.1 % (45-73); Platelet Count 101 X10*3/uL (160-400); Red Blood Count 5.43 X10*6/uL (4.60-5.80); Red Cell Distribution Width 12.8 % (11.0-16.0); White Blood Count 5.9 X10*3/uL (4.8-10.8)
== END 2023-05-30 08:28 | disposition home or self-care (01) ==
LOC: HO.LABR 08:27
PROVIDERS: PCP Internal Medicine; Visit Provider Psychiatry & Neurology Psychiatry
DX: F25.0 Schizoaffective disorder, bipolar type (principal)
CPT/HCPCS: 36415; 85025

== ENCOUNTER 2023-06-30 08:00 | Outpatient (REF) | payer OTHER, SELFPAY ==
[2023-06-30 08:25] LABS: MANUAL DIFF FLAG NO
[2023-06-30 08:45] LABS: Basophils Percent Auto 0.2 % (0-2); Hematocrit 47.6 % (42.0-52.0); Hemoglobin 16.4 g/dl (14.0-18.0); Imm Gran Abs Auto 0.02 X10*3/uL (0.00-0.03); Imm Gran Pct Auto 0.3 % (0.0-0.4); Lymphocytes Absolute Auto 1.3 X10*3/uL (1.2-4.9); Lymphocytes Percent Auto 21.4 % (20-40); Mean Corpuscular HGB Conc 34.5 g/dl (31.0-36.0); Mean Corpuscular Hemoglobin 29.4 pg (27.0-33.0); Mean Corpuscular Volume 85.5 fL (80.0-98.0); Mean Platelet Volume 10.4 fL (9.4-12.4); Monocytes Absolute Auto 0.4 X10*3/uL (0.1-1.2); Monocytes Percent Auto 7.3 % (2-11); Neutrophils Absolute Auto 4.3 x10*3/uL (2.0-8.3); Neutrophils Percent Auto 70.8 % (45-73); Platelet Count 116 X10*3/uL (160-400); Red Blood Count 5.57 X10*6/uL (4.60-5.80); Red Cell Distribution Width 12.7 % (11.0-16.0)
== END 2023-06-30 08:01 | disposition home or self-care (01) ==
LOC: HO.LAB 08:00
PROVIDERS: PCP Internal Medicine; Visit Provider Psychiatry & Neurology Psychiatry
DX: F25.0 Schizoaffective disorder, bipolar type (principal); Z79.899 Other long term (current) drug therapy
CPT/HCPCS: 36415; 85025

== ENCOUNTER 2023-07-12 08:07 | Outpatient (REF) | payer OTHER, SELFPAY ==
[2023-07-12 08:34] LABS: MANUAL DIFF FLAG NO
[2023-07-12 08:48] LABS: Basophils Percent Auto 0.2 % (0-2); Hematocrit 45.6 % (42.0-52.0); Imm Gran Abs Auto 0.03 X10*3/uL (0.00-0.03); Imm Gran Pct Auto 0.5 % (0.0-0.4); Lymphocytes Absolute Auto 1.3 X10*3/uL (1.2-4.9); Lymphocytes Percent Auto 19.6 % (20-40); Mean Corpuscular HGB Conc 35.1 g/dl (31.0-36.0); Mean Corpuscular Hemoglobin 29.5 pg (27.0-33.0); Mean Corpuscular Volume 84.1 fL (80.0-98.0); Mean Platelet Volume 9.6 fL (9.4-12.4); Monocytes Absolute Auto 0.4 X10*3/uL (0.1-1.2); Monocytes Percent Auto 6.6 % (2-11); Neutrophils Absolute Auto 4.8 x10*3/uL (2.0-8.3); Neutrophils Percent Auto 73.1 % (45-73); Platelet Count 122 X10*3/uL (160-400); Red Blood Count 5.42 X10*6/uL (4.60-5.80); Red Cell Distribution Width 12.8 % (11.0-16.0); White Blood Count 6.5 X10*3/uL (4.8-10.8)
[2023-07-12 08:50] LABS: Appearance Urine Clear; Color Urine Yellow; Glucose Urine UA >=1000 mg/dL (Negative); Leukocyte Esterase Urine Negative (Negative); Nitrite Urine Negative (Negative); UMIC TRIGGER UACC YES; Urine Blood Negative (Negative); Urine Ketones Negative (Negative); Urine Protein Negative (Neg-Trace)
[2023-07-12 08:58] LABS: Bacteria Urine None Seen (None Seen); Hyaline Casts Urine 0-2 /LPF (0-2); RBC Urine 0-2 /HPF (0-2); Squamous Epithelial Cell Urine 0-2 /HPF (0-2); WBC Urine 0-5 /HPF (0-5)
[2023-07-12 09:22] LABS: Creatinine Urine 51.25 mg/dL; Microalbumin Urine < 5.0 mg/L
[2023-07-12 09:27] LABS: Alanine Aminotransferase 62 U/L (0-40); Albumin Level 4.3 g/dL (3.5-5.0); Alkaline Phosphatase 131 U/L (39-117); Anion Gap 13 (12-20); Aspartate Amino Transferase 24 U/L (5-37); Bilirubin Total 0.5 mg/dL (0.0-1.0); Blood Urea Nitrogen 19 mg/dL (9-16); Calcium 9.5 mg/dL (8.4-10.2); Carbon Dioxide 23 mmol/L (22-29); Chloride 107 mmol/L (96-108); Cholesterol 164 mg/dL (<200); Estimated Glomerular Filt Rate 58; Glucose Fasting 194 mg/dL (60-99); HDL Cholesterol 32 mg/dL (>40); LDL Cholesterol Calculated 81 mg/dL (<100); Sodium 139 mmol/L (135-145); Total Protein 7.4 g/dL (6.5-8.0); Triglycerides 255 mg/dL (<150)
[2023-07-12 09:32] LABS: Estimated Average Glucose 157 mg/dL; Hemoglobin A1c % 7.1 % (<6.0)
[2023-07-12 09:47] LABS: Vitamin D 25-OH Total 40.8 ng/mL (>30)
== END 2023-07-12 08:08 | disposition home or self-care (01) ==
LOC: HO.LAB 08:07
PROVIDERS: PCP Internal Medicine; Visit Provider Internal Medicine
DX: E78.00 Pure hypercholesterolemia, unspecified (principal); E55.9 Vitamin D deficiency, unspecified; E11.9 Type 2 diabetes mellitus without complications; I10 Essential (primary) hypertension
CPT/HCPCS: 36415; 80053; 80061; 81001; 82043; 82306; 82570; 83036; 84443; 85025

== ENCOUNTER 2023-07-20 10:07 | Outpatient (AMB) | payer OTHER, SELFPAY ==
--- NOTE | 2023-07-20 10:11 | A.OFFVIS_ITS ---
Intake Vital Signs 07/20/23 10:13 Height 6 ft 1 in Weight 271 lb BMI 35.8 BP 121/77 Blood Pressure Location Rt brachial Position Sitting Pulse 92 Intake Visit Reasons: 3 month follow up Intake Note: Patient presents to in office visit today in 3 months followup of diarrhea and constipation. CC: Patient c/o constipation and diarrhea. He states he is constipated today, has abdominal pain, and stomas rumbling. He states when he is constipated he does not get hungry. 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 He feels he is constipated, but it is now starting to go through. He admits that he forgot to take his medicines last night. He feels the MOM is a good addition to his regimen. He also has occasional diarrhea that he admits is reactive to pushing out hard stools. He also admits that. he does forget his regular CIC meds frequently. He continues on his Linzess 290 micro g, milk of magnesia, fiber tablets, MiraLax, senna, for constipation along with his metoclopramide 5 mg 3 times a day doctor sit sodium twice a day, and bisacodyl as needed. He also has simethicone for bloating. He says his NIDDM is now well controlled. He has an RN checking in on him weekly. ROV 3 mos. (2) Delayed gastric emptying: Code(s): K30 - Functional dyspepsia TODAY'S VISIT Am takes Linzess, fiber 2 tabs tid, at night tates senns,and bisacodyl 1 qam and 2 qhs, simethicone and colace and he continues his reglan tid. If he gets CIC will take MOM and drinks more water. He still goes back and forth between CIC and diarrhea. He says they are equal occurrence. BECAUSE HAS POOR insight memory into what he may be doing differently on the cause a wide swings in his bowels is extremely difficult to manage the situation. I continued urged him to try to make connections with things like coffee consumption, water intake, exercise, food eaten etc.. The only medication he is really taking p.r.n. as hydroxyzine. He says I think I'm on too much medication, so I advise him to stop the senna. ROV 3 mos PFSH Medical History (Updated 07/20/23 @ 10:37 by RAHUL Romero) Colon cancer screening COVID-19 Pre-op examination Elevated LFTs Encounter for Medicare annual wellness exam Bowel obstruction Melena Knee pain, bilateral Gastroenteritis Healed wound Chronic idiopathic constipation Chronic idiopathic constipation Right hand pain Hospital discharge follow-up Knee osteoarthritis Pain in both feet Obesity (BMI 30-39.9) Schizoaffective disorder Pure hypercholesterolemia Benign essential hypertension Chronic kidney disease (CKD), stage III (moderate) Type 2 diabetes mellitus with diabetic chronic kidney disease Morbid obesity Dyslipidemia 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 mellitus 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 Diabetic polyneuropathy associated with 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 mellitus Schizo affective schizophrenia Diabetes type 2, uncontrolled Surgical History History of repair of congenital cleft palate Hx of circumcision Family History Father HTN (hypertension) Mother Diabetes Other Mental health problem Social History Household Members: None Housing: Apartment Are you a primary morning caregiver to a significant other at home: No Do you presently have visiting nurse or other home services: Yes Alcohol intake: former Patient Tobacco Use Status: Former Tobacco user Tobacco use type: Cigarette Cigarettes Per Day: 15 Years Smoked: 8 quit 30 years ago e-Cigarette/Vaping Use: Never Used Second Hand Smoke Exposure: No service: No Current occupational status: employed Current occupation: [employer] Cognitive needs: No Hearing needs: No Vision needs: Yes (glasses) Review of Systems Const Denies fatigue, Denies fever(s), Denies night sweats, Denies poor appetite and Denies weight loss Eyes Details: Glasses Reports requires corrective lenses ENT Reports Normal hearing present, Denies dental pain, Denies dysphagia, Denies hearing loss, Denies mouth pain, Denies odynophagia, Denies throat swelling, Denies tongue swelling and Reports other (Dentition adequate) Card Reports no additional complaints Resp Reports no additional complaints GI Denies abdominal pain, Denies melena, Reports bloating, Denies hematochezia, Reports constipation, Reports GI cramping, Denies dysphagia, Denies excessive flatus, Reports early satiety, Reports heartburn, Reports diarrhea, Denies nausea, Denies odynophagia, Denies vomiting and Denies hematemesis Skin/Breast Denies pruritus, Denies lesions, Denies rash and Denies jaundice Neuro Reports Normal hearing present and Denies Abnormal speech present Psych Reports abnormal sleep pattern Endo Denies fatigue Aller/Immun Denies throat swelling and Denies tongue swelling Physical Exam Vital Signs: Last Vital Signs Pulse 92 07/20/23 10:13 BP 121/77 07/20/23 10:13 BMI result Body Mass Index 35.8 Const General: cooperative, no acute distress, well developed and well groomed Nutritional Appearance: well nourished and obese morbidly obese Orientation/consciousness: oriented to person, oriented to place and oriented to time Limitations: No language barrier and other limitations (Cognitive in educational levels) HEENT Head: Yes normocephalic and Yes atraumatic Eyes General: appearance normal, both eyes and all related structures Pupils: Equal, round and reactive pupils present Neck Neck: Yes normal visual inspection and Yes no lymphadenopathy Thyroid: Thyroid normal Resp Effort & Inspection: normal respiratory effort and able to speak in complete sentences Auscultation: clear to auscultation bilaterally Cardio Rate: regular rate Rhythm: regular rhythm Heart sounds: Normal, physiologic split S2 sound present Peripheral pulses: radial pulses present and posterior tibial pulses present GI Inspection: No distended, Yes Abdominal panniculus present and Yes obesity Palpation (GI): Soft to palpation, nontender, no guarding, not rigid and No hepatosplenomegaly present Percussion: Yes normal to percussion Auscultation: normal bowel sounds Rectal Exam - Male: Yes deferred Skin General skin exam: no rashes or lesions noted, turgor normal, skin not dry, no jaundice, No spider nevi and no striae Rashes: no rashes Nails: normal Neuro General: oriented to person, oriented to place and oriented to time Cranial nerves: Yes Equal, round and reactive pupils present and Yes Normal hearing present Speech: No Abnormal speech present Extrem General: Yes normal to inspection, No clubbing, No cyanosis and No edema Psych Appearance: grossly normal and well kempt Mental Status: mental status grossly normal Speech and movement: Normal speech and movement present Affect: normal affect Attitude: cooperative Thought process: Circumstantial thought process present, not confabulating and Tangential thought process present Thought content: Normal thought content present Insight: Poor insight present (Psych) Judgement: Poor judgement present (Psych) Assessment & Plan Assessment & Plan (1) Chronic idiopathic constipation: Code(s): K59.04 - Chronic idiopathic constipation (2) Delayed gastric emptying: Code(s): K30 - Functional dyspepsia Plan Am takes Linzess, fiber 2 tabs tid, at night tates senns,and bisacodyl 1 qam and 2 qhs, simethicone and colace and he continues his reglan tid. If he gets CIC will take MOM and drinks more water. He still goes back and forth between CIC and diarrhea. He says they are equal occurrence. BECAUSE HAS POOR insight memory into what he may be doing differently on the cause a wide swings in his bowels is extremely difficult to manage the situation. I continued urged him to try to make connections with things like coffee consumption, water intake, exercise, food eaten etc.. The only medication he is really taking p.r.n. as hydroxyzine. He says I think I'm on too much medication, so I advise him to stop the senna. ROV 3 mos Medications: Refilled bisacodyl (Dulcolax (bisacodyl)) 2 tabs qhs and 1 qam PO bedtime; 30 days 90 tabs 6RF K59.04 - Chronic idiopathic constipation docusate sodium 100 mg PO BID 60 caps 6RF On Hold sennosides (senna) Hold Comment: Doctor's Order 17.2 mg (2 x 8.6 mg) PO BEDTIME 60 tabs 6RF for constipation Coding Level of Care Code Est Pt Level 3 (86179) Diagnoses Chronic idiopathic constipation K59.04 Delayed gastric emptying K30
[2023-07-20 10:13] VITALS: BP 121/77; PULSE 92; BMI 35.8
== END 2023-07-20 10:57 | disposition home or self-care (01) ==
PROVIDERS: PCP Internal Medicine; Visit Provider Nurse Practitioner
DX: K59.04 Chronic idiopathic constipation (principal); K30 Functional dyspepsia
CPT/HCPCS: 99213

== ENCOUNTER → 2023-07-20 10:07 | Outpatient (BNVA) | payer OTHER, SELFPAY | PROVIDERS: PCP Internal Medicine; Visit Provider Nurse Practitioner | DX: K59.04 Chronic idiopathic constipation (principal); K30 Functional dyspepsia | CPT/HCPCS: 99212 ==

== ENCOUNTER 2023-08-02 07:50 | Outpatient (REF) | payer OTHER, SELFPAY ==
[2023-08-02 08:11] LABS: MANUAL DIFF FLAG NO
[2023-08-02 09:09] LABS: Hematocrit 44.5 % (42.0-52.0); Hemoglobin 15.5 g/dl (14.0-18.0); Imm Gran Abs Auto 0.03 X10*3/uL (0.00-0.03); Imm Gran Pct Auto 0.5 % (0.0-0.4); Lymphocytes Absolute Auto 1.1 X10*3/uL (1.2-4.9); Lymphocytes Percent Auto 17.9 % (20-40); Mean Corpuscular HGB Conc 34.8 g/dl (31.0-36.0); Mean Corpuscular Hemoglobin 29.5 pg (27.0-33.0); Mean Corpuscular Volume 84.6 fL (80.0-98.0); Mean Platelet Volume 10.9 fL (9.4-12.4); Monocytes Absolute Auto 0.5 X10*3/uL (0.1-1.2); Monocytes Percent Auto 7.4 % (2-11); Neutrophils Absolute Auto 4.5 x10*3/uL (2.0-8.3); Neutrophils Percent Auto 74.2 % (45-73); Platelet Count 106 X10*3/uL (160-400); Red Blood Count 5.26 X10*6/uL (4.60-5.80); Red Cell Distribution Width 12.9 % (11.0-16.0); White Blood Count 6.1 X10*3/uL (4.8-10.8)
== END 2023-08-02 07:51 | disposition home or self-care (01) ==
LOC: HO.LABR 07:50
PROVIDERS: PCP Internal Medicine; Visit Provider Psychiatry & Neurology Psychiatry
DX: F25.0 Schizoaffective disorder, bipolar type (principal); Z79.899 Other long term (current) drug therapy
CPT/HCPCS: 36415; 85025

== ENCOUNTER 2023-09-01 07:44 | Outpatient (REF) | payer OTHER, SELFPAY ==
[2023-09-01 07:58] LABS: MANUAL DIFF FLAG NO
[2023-09-01 08:15] LABS: Basophils Percent Auto 0.1 % (0-2); Hematocrit 45.7 % (42.0-52.0); Hemoglobin 16.2 g/dl (14.0-18.0); Imm Gran Abs Auto 0.05 X10*3/uL (0.00-0.03); Imm Gran Pct Auto 0.7 % (0.0-0.4); Lymphocytes Absolute Auto 1.2 X10*3/uL (1.2-4.9); Lymphocytes Percent Auto 16.8 % (20-40); Mean Corpuscular HGB Conc 35.4 g/dl (31.0-36.0); Mean Corpuscular Hemoglobin 29.7 pg (27.0-33.0); Mean Corpuscular Volume 83.9 fL (80.0-98.0); Mean Platelet Volume 10.2 fL (9.4-12.4); Monocytes Absolute Auto 0.6 X10*3/uL (0.1-1.2); Monocytes Percent Auto 7.7 % (2-11); Neutrophils Absolute Auto 5.4 x10*3/uL (2.0-8.3); Neutrophils Percent Auto 74.7 % (45-73); Platelet Count 113 X10*3/uL (160-400); Red Blood Count 5.45 X10*6/uL (4.60-5.80); Red Cell Distribution Width 12.9 % (11.0-16.0); White Blood Count 7.3 X10*3/uL (4.8-10.8)
== END 2023-09-01 07:45 | disposition home or self-care (01) ==
LOC: HO.LABR 07:44
PROVIDERS: PCP Internal Medicine; Visit Provider Psychiatry & Neurology Psychiatry
DX: F25.0 Schizoaffective disorder, bipolar type (principal); Z79.899 Other long term (current) drug therapy
CPT/HCPCS: 36415; 85025

== ENCOUNTER 2023-09-01 09:38 | Outpatient (AMB) | payer OTHER, SELFPAY ==
--- NOTE | 2023-09-01 09:44 | A.OFFPC_ITS ---
Vital Signs 09/01/23 09:47 Height 6 ft 1 in Weight 271 lb 4 oz BMI 35.8 BP 110/72 Blood Pressure Location Lt brachial Position Sitting Pulse 79 Pulse Source Pulse Oximeter Pulse Oximetry (%) 98 Oxygen Delivery Method Room Air Intake Visit Reasons: 3 Months F/U Intake Note: Patient is here to follow up on DM, CKD, Hypercholesterolemia. Complaint of sore throat for a few days and blocked ears. Museum Librarian Required: No Mask Designer: Not Required per policy Accompanied by: Self / Same As Patient Allergies No Known Allergies [No Known Allergies*] Allergy (Verified 09/01/23 10:17) Medication List - Last Reconciled 09/01/23 by Luis Manuel Garcia MD acetaminophen (Tylenol Extra Strength) 500 mg PO QID PRN atorvastatin 10 mg PO DAILY benztropine 0.5 mg PO BID bisacodyl (Dulcolax (bisacodyl)) 2 tabs qhs and 1 qam PO bedtime; 30 days blood sugar diagnostic (FreeStyle Lite Strips) Tests 5X/day blood-glucose meter (FreeStyle Lite Meter kit) Tests 4 X/day cholecalciferol (vitamin D3) 25 mcg PO DAILY clozapine 100 mg PO TID docusate sodium 100 mg PO BID empagliflozin (Jardiance) 25 mg PO QAM flash glucose scanning reader (FreeStyle Jody 2 [place]) As directed furosemide 20 mg PO DAILY gabapentin 300 mg PO BEDTIME 90 days hydroxyzine pamoate 50 mg PO TID PRN ibuprofen 800 mg PO Q8H PRN 30 days L.acidoph, paracasei,B. lactis (Digestive Advantage Advanced Probiotic) cells PO lancets (FreeStyle Lancets) Tests 5x/day linaclotide (Linzess) 290 mcg PO QAM 30 days magnesium hydroxide (Milk of Magnesia) 10 mL PO BEDTIME metformin 1,000 mg (2 x 500 mg) PO BID 90 days methylcellulose (laxative) (Fiber Therapy (methylcellulose)) 1,000 mg (2 x 500 mg) PO TID metoclopramide HCl 5 mg PO TID pen needle, diabetic (BD Ultra-Fine Original Pen Needle) As directed daily polyethylene glycol 3350 (Miralax) 17 grams PO BID sennosides (senna) 17.2 mg (2 x 8.6 mg) PO BEDTIME sildenafil 50 mg PO DAILY PRN simethicone 180 mg PO TID Tresiba FlexTouch U-200 (insulin degludec) 30 units (0.15 mL) subcut DAILY 90 days NS Tobacco use date assessed: 09/01/23 Dental Screening Dental Screen Date: 09/01/23 Did you have a dental visit in the last 12 months?: No Did you have a dental problem in the last 6 months where you did not have access to dental care?: No Was dental information given to patient?: No HPI 3 Months F/U HPI Details Patient comes in today for his follow up visit States that he currently feels okay Notes that his throat and mouth still feels dry often - are likely due to the effects of his Clozapine Rx Relates (+) mild irritation of his throat at times lately due to what he describes as a recurrent mucus States that he has to often clear and blow his nose lately and sometimes feel his hears clog up as a result although he has noticed that he can hardly hear out of his right ear recently Denies any ear pain or drainage He denies any fever, headaches or dizziness Denies any chest pains, no SOB No nausea/vomiting, no abdominal pain No change in bowel habits noted - still has recurrent constipation and he continues to follow up with GI for this Had some labs done earlier today - patient is not sure what he had done and thinks that they are for monitoring of his Clozapine Rx Is advised that at this time, only his CBC is available to review Would like to get a refill on his Ibuprofen PFSH Medical History Colon cancer screening COVID-19 Pre-op examination Elevated LFTs Encounter for Medicare annual wellness exam Bowel obstruction Melena Knee pain, bilateral Gastroenteritis Healed wound Chronic idiopathic constipation Chronic idiopathic constipation Right hand pain Hospital discharge follow-up Knee osteoarthritis Pain in both feet Obesity (BMI 30-39.9) Schizoaffective disorder Pure hypercholesterolemia Benign essential hypertension Chronic kidney disease (CKD), stage III (moderate) Type 2 diabetes mellitus with diabetic chronic kidney disease Morbid obesity Dyslipidemia 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 mellitus FCI (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 Diabetic polyneuropathy associated with 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 mellitus Schizo affective schizophrenia Diabetes type 2, uncontrolled Surgical History History of repair of congenital cleft palate Hx of circumcision Family History Father HTN (hypertension) Mother Diabetes Other Mental health problem Social History Household Members: None Housing: Apartment Are you a primary director of critical care to a significant other at home: No Do you presently have visiting nurse or other home services: Yes Alcohol intake: former Patient Tobacco Use Status: Former Tobacco user Tobacco use type: Cigarette Cigarettes Per Day: 15 Years Smoked: 8 quit 30 years ago e-Cigarette/Vaping Use: Never Used Second Hand Smoke Exposure: No service: No Current occupational status: employed Current occupation: [employer] Cognitive needs: No Hearing needs: No Vision needs: Yes (glasses) Questionnaire PHQ-9 Over the last 2 weeks, how often have you been bothered by any of the following problems? 1. Little interest or pleasure in doing things: several days 2. Feeling down, depressed, or hopeless: several days 3. Trouble falling or staying asleep, or sleeping too much: nearly every day 4. Feeling tired or having little energy: several days 5. Poor appetite or overeating: more than half the days 6. Feeling bad about yourself - or that you are a failure or have let yourself or your family down: not at all 7. Trouble concentrating on things, such as reading the newspaper or watching television: several days 8. Moving or speaking so slowly that other people could have noticed. Or the opposite - being so fidgety or restless that you have been moving around a lot more than usual: not at all 9. Thoughts that you would be better off or of hurting yourself in some way: not at all Total score: 9 Depression Screening Interpretation: Positive Depression Screening Follow-up: Existing condition and In treatment Depression Screening Done: Yes 60341 - PHQ-9 Billing: Yes Source: Developed by Drs. Foster Queen, Shahla Vo, Lambert Sanchez and colleagues, with an educational german from [employer]. Thrive Questionnaire Date Thrive assessed: 09/01/23 I am a: Patient What is your living situation today?: I have a steady place to live Within the past 12 months, did the food you bought not last and you didn't have the money to get more?: Never true Within the past 12 months, did you worry whether your food would run out before you got money to buy more?: Never true Do you have trouble paying for medicines?: No Do you have trouble getting transportation to medical appointments?: No Do you have trouble paying your heating and electricity bill?: No Do you have trouble taking care of your child, family member or friend?: No Do you have trouble with day-to-day activities such as bathing, preparing meals, shopping, managing finances, etc.?: No Are you currently unemployed and looking for a job?: No Are you interested in more education?: No Currently or been in a relationship where the following occur: no concerns reported THRIVE Score: 0 AUDIT C Alcohol Use Questionnaire (AUDIT-C) 1. How often do you have a drink containing alcohol?: Never Total Score: 0 Score Reviewed/Action Taken: Yes KENDRA-7 AMB Questionnaire KENDRA-7 Date KENDRA - 7 assessed: 09/01/23 Feeling nervous, anxious, or on edge: 3 = Nearly every day Not being able to stop or control worryin = Nearly every day Worrying too much about different things: 3 = Nearly every day Trouble relaxin = Several days Being so restless that it is hard to sit still: 1 = Several days Becoming easily annoyed or irritable: 0 = Not at all Feeling afraid as if something awful might happen: 2 = More than half the days Total KENDRA-7 score (0-4 normal; 5-9 mild; 10-14 moderate; 15-21 severe): 13 Source: Developed by Drs. Foster Queen, Shahla Vo, Lambert Sanchez and colleagues, with an educational german from [employer]. Review of Systems Const Denies chills, Denies fatigue, Denies fever(s) and Denies headache(s) ENT Denies dysphagia, Denies dizziness, Denies otalgia (but reports (+) ear pressure at times rosie after he blows his nose), Denies headache(s), Reports hearing loss (in his right ear recently), Denies neck pain, Denies odynophagia and Reports sore throat (mild, on and off) Card Denies chest pain, Denies palpitations and Denies dyspnea Resp Denies cough, Denies dyspnea and Denies wheezing GI Denies abdominal pain, Reports constipation (on and off - better controlled lately), Denies dysphagia, Denies heartburn, Reports diarrhea (occasionally; usually when his constipation gets worse), Denies nausea, Denies odynophagia and Denies vomiting Reports erectile dysfunction (states current Rx do NOT help), Denies dysuria, Denies nocturia and Denies urinary frequency Musc Reports arthralgias (both knees, on and off) and Denies neck pain Skin/Breast Denies rash Neuro Denies dizziness and Denies headache(s) Endo Denies fatigue and Denies palpitations Aller/Immun Denies wheezing Physical exam (Primary Care) Vital Signs: Last Vital Signs Pulse 79 09/01/23 09:47 BP 110/72 09/01/23 09:47 Pulse Ox 98 09/01/23 09:47 Oxygen Delivery Method Room Air 09/01/23 09:47 BMI result Body Mass Index 35.8 Tobacco/Smoking Status: Tobacco use Status Tobacco use date assessed 09/01/23 09/01/23 09:55 Patient Tobacco Use Status Former Tobacco user 09/01/23 09:55 Tobacco use type Cigarette 09/01/23 09:55 e-Cigarette/Vaping Use Never Used 09/01/23 09:55 PHQ-9: PHQ-9 Score PHQ-9: Total score 9 09/01/23 09:55 Depression Screening Interpretation: Positive Depression Screening Follow-up: Existing condition and In treatment Thrive Assessment: Date of Thrive Assessment Date Thrive assessed 09/01/23 09/01/23 09:55 Currently or been in a relationship where the following occur: no concerns r eported Const General: no acute distress and alert HENMT Ears: TM normal on the left, EAC's normal (bilaterally but visual of right EAC is limited due to impacted cerumen) and unable to visualize TM on the right (due to impacted cerumen) Mouth: Normal oral and palatal mucosa present Throat: Yes posterior oropharynx normal and Yes tonsils normal (no TP congestion noted) Neck Neck: Yes no lymphadenopathy and Yes supple Resp Auscultation: clear to auscultation bilaterally, no rales and no wheezes Cardio Rate: regular rate Rhythm: regular rhythm Heart sounds: no murmurs GI Palpation (GI): Soft to palpation and nontender Auscultation: normal bowel sounds General: Yes no CVA tenderness Back/Spine/Pelvis Back: no CVA tenderness Skin Rashes: no rashes Extrem General: Yes no clubbing, cyanosis or edema Right lower extremity: knee Details: tenderness; no swelling Left lower extremity: knee Details: tenderness; no swelling Results Reviewed Results Reviewed: Laboratory Tests 09/01/23 07:55 WBC 7.3 Hgb 16.2 Hct 45.7 Plt Count 113 L Assessment and Plan Assessment & Plan (1) Pure hypercholesterolemia: Code(s): E78.00 - Pure hypercholesterolemia, unspecified Plan: Patient is advised that his labs done earlier today are not yet available for review; he is not clear if he had anything else done other than his CBC Reinforced low cholesterol diet Continue Atorvastatin 10 mg QD Will recheck his labs and fasting lipids in 3 months for follow up (2) Benign essential hypertension: Code(s): I10 - Essential (primary) hypertension Plan: Reinforced low-sodium diet - goal is systolic BP of at least 120 to 130 mm or less Continue Furosemide 20 mg QD (3) Type 2 diabetes mellitus with diabetic chronic kidney disease: Code(s): E11.22 - Type 2 diabetes mellitus with diabetic chronic kidney disease Qualifiers: Diabetes mellitus remote computer terminal operator insulin use: with remote computer terminal operator use Chronic kidney disease stage: stage 3 (moderate) Chronic kidney disease stage 3 subtype: unspecified whether 3a or 3b Qualified Code(s): E11.22 - Type 2 diabetes mellitus with diabetic chronic kidney disease; N18.30 - Chronic kidney disease, stage 3 unspecified; Z79.4 - FCI (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 Plan: HgbA1c was at 7.1% when last checked just less than 2 months ago on 07/12/2023 (was at 6.8% a few months ago) - goal is < 7.0% Reinforced diabetic diet Continue Metformin 500 mg 2 tablets BID, Jardiance 25 mg QD and Tresiba 30 units QD Follow-up with endocrinology as scheduled (4) Chronic kidney disease (CKD), stage III (moderate): Code(s): N18.30 - Chronic kidney disease, stage 3 unspecified Qualifiers: Chronic kidney disease stage 3 subtype: unspecified whether 3a or 3b Qualified Code(s): N18.30 - Chronic kidney disease, stage 3 unspecified Plan: Renal function appeared stable on his labs done a few months ago Will continue to monitor his renal function closely/regularly (5) Chronic idiopathic constipation: Code(s): K59.04 - Chronic idiopathic constipation Plan: Patient is again encouraged to increase his oral fluids and dietary fiber and to continue on Linzess 290 mcg QD, Docusate 100 mg BID PRN, Miralax 17 gm QD, MOM at bedtime PRN and Fiber Therapy 1000 mg TID Follow-up with GI as scheduled for continuing management of his chronic constipation He was scheduled for colonoscopy with Dr. Ponce on 03/17/23 but the procedure was cancelled as it appears that he could not do the prep for the procedure properly He has not yet been rescheduled for this by GI (6) Impacted cerumen, right ear: Code(s): H61.21 - Impacted cerumen, right ear Plan: Will start patient on Debrox ear drops to apply 5 drops into the right ear BID as instructed x 7 days (7) Erectile dysfunction: Code(s): N52.9 - Male erectile dysfunction, unspecified Qualifiers: Erectile dysfunction type: unspecified Qualified Code(s): N52.9 - Male erectile dysfunction, unspecified Plan: Patient feels that all of the Rx prescribed for him so far have not helped Reminded that at one point, he was prescribed a vaccum device by Dr. Arguello a few years ago He is advised to follow up with urology as scheduled for this issue (8) Schizoaffective disorder: Code(s): F25.9 - Schizoaffective disorder, unspecified Qualifiers: Schizoaffective disorder type: unspecified Qualified Code(s): F25.9 - Schizoaffective disorder, unspecified Plan: Continue Clozapine 100 mg 3 tablets daily at bedtime and Benztropine 0.5 mg BID Follow-up with Psychiatry at [facility] as scheduled (9) Obesity (BMI 30-39.9): Code(s): E66.9 - Obesity, unspecified Plan: Reinforced diet/exercise as tolerated/lose weight Plan Follow up in 3 months Orders: Orders Comprehensive [place]. Panel Fast 3 Months E78.00 - Pure hypercholesterolemia, unspecified TSH reflex Free T4 3 Months E78.00 - Pure hypercholesterolemia, unspecified Microalbumin, Random (w Creat) 3 Months E11.9 - Type 2 diabetes mellitus without complications Hemoglobin A1c 3 Months E11.9 - Type 2 diabetes mellitus without complications Vitamin D 25-OH Total 3 Months E55.9 - Vitamin D deficiency, unspecified Complete Blood Count Auto Diff 3 Months D64.9 - Anemia, unspecified Lipid Panel 3 Months E78.00 - Pure hypercholesterolemia, unspecified UA CC w/rflx Micro + Cult 3 Months R30.0 - Dysuria Vitamin B12 and Folate 3 Months E53.8 - Deficiency of other specified B group vitamins Medications: New carbamide peroxide 6.5% (Debrox) 5 drps otic (ear) right Q12H 5 days 15 mL 0RF impacted cerumen in right ear Refilled ibuprofen take with food 800 mg PO Q8H 30 days PRN 90 tabs 0RF for pain Coding Level of Care Code Est Pt Level 4 (85950) Diagnoses Pure hypercholesterolemia E78.00 Benign essential hypertension I10 Type 2 diabetes mellitus with stage 3 chronic kidney disease, with long-term current use of insulin, unspecified whether stage 3a or 3b CKD E11.22; N18.30; Z79.4 Diabetes mellitus chcf insulin use: with remote computer terminal operator use Chronic kidney disease stage: stage 3 (moderate) Chronic kidney disease stage 3 subtype: unspecified whether 3a or 3b Stage 3 chronic kidney disease, unspecified whether stage 3a or 3b CKD N18.30 Chronic kidney disease stage 3 subtype: unspecified whether 3a or 3b Chronic idiopathic constipation K59.04 Impacted cerumen, right ear H61.21 Erectile dysfunction, unspecified erectile dysfunction type N52.9 Erectile dysfunction type: unspecified Schizoaffective disorder, unspecified type F25.9 Schizoaffective disorder type: unspecified Obesity (BMI 30-39.9) E66.9
[2023-09-01 09:47] VITALS: BP 110/72; PULSE 79; O2SAT 98; BMI 35.8
== END 2023-09-01 10:25 | disposition home or self-care (01) ==
PROVIDERS: PCP Internal Medicine; Visit Provider Internal Medicine
DX: E11.22 Type 2 diabetes mellitus with diabetic chronic kidney disease (principal); N18.30 Chronic kidney disease, stage 3 unspecified; Z79.4 Long term (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; F25.9 Schizoaffective disorder, unspecified; E78.00 Pure hypercholesterolemia, unspecified; I10 Essential (primary) hypertension; K59.04 Chronic idiopathic constipation; H61.21 Impacted cerumen, right ear; N52.9 Male erectile dysfunction, unspecified; E66.9 Obesity, unspecified
CPT/HCPCS: 99214

== ENCOUNTER 2023-09-03 12:46 | Emergency (ER) | payer OTHER, SELFPAY ==
--- NOTE | 2023-09-03 12:52 | ED.URI ---
HPI - URI/Sore Throat General Chief Complaint: Upper Respiratory Symptoms Stated Complaint: Sore throat Time Seen by Provider: 09/03/23 13:33 Source: patient Mode of arrival: ambulatory Limitations: no limitations History of Present Illness HPI Narrative: 62 year old male with pmhx significant for hearing impairment, T2DM, diabetic polyneuropathy, stage 3 CKD, obesity, delayed gastric emptying, schizoaffective disorder, and HDL presents to the ED today for evaluation of sore throat x3 days. States his throat feels better when drinking cold water. Denies difficulty swallowing or controlling secretions. Reports associated dry cough. He has not been taking any OTC medications for symptoms. Admits he works at [employer] and may have been exposed to sick contacts. Reports calling out of work today d/t symptoms. Denies fever, chills, ear pain, sputum production, dysphagia, nasal congestion, chest pain, sob, wheezing, abd pain, N/V. Related Data Home Medications Medication Instructions Recorded Confirmed hydroxyzine pamoate 50 mg capsule 50 mg PO TID PRN Anxiety 09/18/20 09/01/23 benztropine 0.5 mg tablet 0.5 mg PO BID 04/29/22 09/01/23 L.acidoph, paracasei,B. lactis 10 cell PO 05/12/22 09/01/23 billion cell capsule (Digestive Advantage Advanced Probiotic) clozapine 100 mg tablet 100 mg PO TID 05/12/22 09/01/23 acetaminophen 500 mg oral powder 500 mg PO QID PRN 04/12/23 09/01/23 packet (Tylenol Extra Strength) Previous Rx's Medication Instructions Recorded sildenafil 50 mg tablet 50 mg PO DAILY PRN sexual activity 08/11/22 #10 tabs polyethylene glycol 3350 17 gram 17 g PO BID #30 ea 08/12/22 oral powder packet (Miralax) cholecalciferol (vitamin D3) 25 25 mcg PO DAILY #90 caps 11/03/22 mcg (1,000 unit) capsule metformin 500 mg tablet 1,000 mg (2 x 500 mg) PO BID 90 01/23/23 days #360 tabs sennosides 8.6 mg tablet (senna) 17.2 mg (2 x 8.6 mg) PO BEDTIME 02/24/23 for constipation #60 tabs blood-glucose meter (FreeStyle #1 ea 03/27/23 Lite Meter kit) flash glucose scanning reader #1 ea 04/10/23 (FreeStyle Jody 2 [place]) gabapentin 300 mg capsule 300 mg PO BEDTIME 90 days #90 caps 04/28/23 pen needle, diabetic 29 gauge x #100 ea 05/12/23 1 (BD Ultra-Fine Original Pen Needle) lancets 28 gauge (FreeStyle #100 ea 05/18/23 Lancets) metoclopramide HCl 5 mg tablet 5 mg PO TID #90 tabs 05/24/23 furosemide 20 mg tablet 20 mg PO DAILY #90 tabs 05/25/23 magnesium hydroxide 400 mg/5 mL 10 ml PO BEDTIME #3,780 mL 06/07/23 oral suspension (Milk of Magnesia) atorvastatin 10 mg tablet 10 mg PO DAILY #90 tabs 06/13/23 empagliflozin 25 mg tablet 25 mg PO QAM #30 tabs 06/13/23 (Jardiance) blood sugar diagnostic (FreeStyle #100 ea 06/21/23 Lite Strips) linaclotide 290 mcg capsule 290 mcg PO QAM 30 days #30 caps 06/24/23 (Linzess) Tresiba FlexTouch U-200 200 30 unit (0.15 mL) subcut DAILY 90 07/03/23 unit/mL (3 mL) subcutaneous pen days #9 mL (insulin degludec) methylcellulose (laxative) 500 mg 1,000 mg (2 x 500 mg) PO TID #180 07/04/23 tablet (Fiber Therapy tabs (methylcellulose)) bisacodyl 5 mg tablet,delayed See Rx Instructions PO BEDTIME 30 07/20/23 release (Dulcolax (bisacodyl)) days #90 tabs docusate sodium 100 mg capsule 100 mg PO BID #60 caps 07/20/23 simethicone 180 mg capsule 180 mg PO TID #90 caps 07/26/23 carbamide peroxide 6.5 % ear drops 5 drp otic (ear) right Q12H 09/01/23 (Debrox) impacted cerumen in right ear 5 days #15 mL ibuprofen 800 mg tablet 800 mg PO Q8H PRN for pain 30 days 09/01/23 #90 tabs phenol 1.5 %-glycerin 33 % mucosal 1 spray mucous membrane Q6-8H PRN 09/03/23 spray (Chloraseptic Max Sore sore throat #118 mL Throat) Allergies Allergy/AdvReac Type Severity Reaction Status Date / Time No Known Allergies Allergy Verified 09/01/23 10:17 [No Known Allergies*] Review of Systems Review of Systems: Constitutional: No fever, chills, fatigue, night sweats, weight changes ENT/Mouth: No ear pain, hearing loss, nasal congestion, sinus pain, rhinorrhea, +sore throat, +odynophagia, No dysphagia Eyes: No eye pain, swelling, redness, vision changes, discharge Cardio: No chest pain, palpitations, GUZMAN, orthopnea, peripheral edema Pulm: No SOB, +cough, No sputum, wheezing, dyspnea, hemoptysis GI: No nausea, vomiting, hematemesis, abdominal pain, diarrhea, constipation, hematochezia, melena : No irregular bleeding, dysuria, frequency, urgency, hesitancy, hematuria, flank pain MSK: No back pain, neck pain, joint pain, myalgias Skin: No lesions, rashes Neuro: No weakness, numbness, paresthesias, LOC, dizziness, headache All other systems reviewed and are negative. [facility] Past Medical History Attestation statement: The following information was validated with the patient. Source: old records reviewed and nursing notes reviewed Onset Date is defined in the Problem List Problems that require an onset date and time if occurred within 24 hrs of arrival to the ED Aortic Dissection and Rupture; Neurologic impairment; Cardiopulmonary Arrest; Endotracheal Intubation; Insertion or Replacement of Mechanical Circulatory Assist Device Medical History Colon cancer screening COVID-19 Pre-op examination Elevated LFTs Encounter for Medicare annual wellness exam Bowel obstruction Melena Knee pain, bilateral Gastroenteritis Healed wound Chronic idiopathic constipation Chronic idiopathic constipation Right hand pain Hospital discharge follow-up Knee osteoarthritis Pain in both feet Obesity (BMI 30-39.9) Schizoaffective disorder Pure hypercholesterolemia Benign essential hypertension Chronic kidney disease (CKD), stage III (moderate) Type 2 diabetes mellitus with diabetic chronic kidney disease Morbid obesity Dyslipidemia 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 mellitus 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 Diabetic polyneuropathy associated with 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 mellitus Schizo affective schizophrenia Diabetes type 2, uncontrolled Surgical History History of repair of congenital cleft palate Hx of circumcision Family History Family History Father HTN (hypertension) Mother Diabetes Other Mental health problem Social History Social History Household Members: None Housing: Apartment Are you a primary clinical care coordinator to a significant other at home: No Do you presently have visiting nurse or other home services: Yes Alcohol intake: former Patient Tobacco Use Status: Former Tobacco user Tobacco use type: Cigarette Cigarettes Per Day: 15 Years Smoked: 8 quit 30 years ago e-Cigarette/Vaping Use: Never Used Second Hand Smoke Exposure: No Advance Directives: Yes Advance Directives Information Provided: Yes Advance Directives on File: No service: No Current occupational status: employed Current occupation: [employer] Cognitive needs: No Hearing needs: No Vision needs: Yes (glasses) Physical Exam Vital Signs: Vital Signs: Last Vital Signs Temp 98.0 F 09/03/23 12:53 Pulse 97 09/03/23 12:53 Resp 18 09/03/23 12:53 BP 129/81 09/03/23 12:53 Pulse Ox 97 09/03/23 12:53 O2 Del Method Room Air 09/03/23 12:53 BMI result Body Mass Index 32.8 Vital signs stable, afebrile. Const: General: cooperative, healthy appearing, comfortable, no acute distress, alert and awake Nutritional Appearance: overweight Orientation/consciousness: patient oriented x3 Limitations: no limitations HEENT: Other: + Posterior oropharynx mildly erythematous, no edema. No tonsilar exudates. Uvula midline. Controlling secretions and speaking in complete sentences. + no trismus Head: Yes normal to inspection, Yes normocephalic and Yes atraumatic Ears: hearing grossly normal bilaterally, external ears normal, TM's normal bilaterally, EAC's normal, mastoids normal and no periauricular adenopathy General nose exam: Normal external nose present and No nasal discharge present Face and sinus: Yes normal facial exam and Yes sinuses nontender Eyes: General: appearance normal, both eyes and all related structures Conjunctivae: conjunctivae normal Sclerae: sclerae normal Pupils: Equal, round and reactive pupils present Neck: Neck: Yes normal visual inspection, Yes full ROM and Yes no lymphadenopathy Resp: Effort & Inspection: normal respiratory effort and able to speak in complete sentences Auscultation: clear to auscultation bilaterally Cardio: Rate: regular rate Rhythm: regular rhythm GI: Inspection: Yes normal to inspection Palpation (GI): Soft to palpation and nontender Skin: General skin exam: no rashes or lesions noted Neuro: General: patient oriented x3 Cranial nerves: Yes Equal, round and reactive pupils present Course Course Course Narrative: This is an RME: Additional HPI, ROS, PE not included below will be deferred to primary provider. Patient is a 62-year-old male who presents to the emergency department for evaluation of sore throat, cough, nasal congestion x 2-3 days. He had to call out of work today. Plan: Viral testing/strep A. Reevaluation(s) Reevaluation #1: 1400-- patient tested negative for COVID, influenza, strep throat. He likely has a viral pharyngitis. He is tolerating fluids in ED. discussed results with patient. Will send Chloraseptic throat spray to pharmacy for him. Patient has remained stable throughout ED visit today. Discussed strict return precautions. All questions answered at this time. Patient is agreeable with disposition and stable for discharge. Medical Decision Making Medical Decision Making [facility] Narrative: 62 year old male with pmhx significant for hearing impairment, T2DM, diabetic polyneuropathy, stage 3 CKD, obesity, delayed gastric emptying, schizoaffective disorder, and HDL presents to the ED today for evaluation of sore throat x3 days. Vital signs stable. Afebrile. Patient is nontosicx appearing and in NAD. Drinking water during exam. Bilateral EACs and TMs intact, no mastoid tenderness. No trismus. Posterior oropharynx mildly erythematous, no edema. No tonsilar exudates. Uvula midline. Controlling secretions and speaking in complete sentences. Lungs CTA b/l. Clinical concern for pharyngitis, strep throat, viral syndrome. Unlikely mono, DIRECTOR OF PUBLIC SAFETY, retropharyngeal abscess, dental abscess, epiglottis, acute respiratory distress, pneumonia. Differential Diagnosis Differential Diagnoses: The differential diagnosis associated with the presentation includes as above. Admission/Observation Not indicated Lab Data [facility] Lab Attestation statement: I reviewed the patient's lab results. as above Labs: Lab Results 09/03/23 Range/Units 12:57 COVID-19 (JEFFREY) Negative (Negative) COVID-19 Clin Com See Note Influenza Type A (STAR) Negative (Negative) Influenza Type B (STAR) Negative (Negative) Influenza A & B Note See Note S. pyogenes GrpA STAR Negative (Negative) External Record Review External record reviewed: Inpatient record Prescription Management I considered prescription management with: Pain Medication Chronic Conditions Patient?s care impacted by: Diabetes Social Determinants Patient?s care significantly limited by Social Determinants of Health including: Other Social Determinant of Health Critical Care Time Critical Care Time Critical Care Time: No Discharge Plan Discharge Clinical Impression: Pharyngitis Patient Disposition: Home, Self-Care Instructions: Pharyngitis (ED), Upper Respiratory Infection (ED) Additional Instructions: You tested negative for strep throat, flu, COVID,. You likely have a viral upper respiratory infection that does not require antibiotic treatment. You may take [id number] cough medicine as needed for cough. You may alternate ibuprofen and Tylenol for fevers or body aches. You may also purchase [id number] Chloraseptic spray 2 spray at the back of your throat for throat pain. Follow-up with your PCP. If symptoms persist or worsen please return to the emergency department. The case of an emergency call 911. Prescriptions: New Chloraseptic Max Sore Throat 1.5-33 % spray,non-aerosol 1 spray mucous membrane Q6-8H PRN (Reason: sore throat) Qty: 118 0RF Rx Instructions: leave on area for 15 seconds then spit out No Action cholecalciferol (vitamin D3) 25 mcg (1,000 unit) capsule 25 mcg PO DAILY Qty: 90 12RF metformin 500 mg tablet 1,000 mg PO BID 90 Days Qty: 360 1RF (DME) blood-glucose meter [FreeStyle Lite Meter] Kit See Rx Instructions .Route Qty: 1 5RF Rx Instructions: Tests 4 X/day (DME) FreeStyle Jody 2 [place] Misc See Rx Instructions .ROUTE .MEDSUPPLY Qty: 1 1RF Rx Instructions: As directed gabapentin 300 mg capsule 300 mg PO BEDTIME 90 Days Qty: 90 1RF (DME) lancets [FreeStyle Lancets] 28 gauge misc See Rx Instructions .Route Qty: 100 4RF Rx Instructions: Tests 5x/day metoclopramide HCl 5 mg tablet 5 mg PO TID Qty: 90 3RF furosemide 20 mg tablet 20 mg PO DAILY Qty: 90 1RF magnesium hydroxide [Milk of Magnesia] 400 mg/5 mL suspension 10 ml PO BEDTIME Qty: 3780 6RF Jardiance 25 mg tablet 25 mg PO QAM Qty: 30 3RF atorvastatin 10 mg tablet 10 mg PO DAILY Qty: 90 0RF (DME) FreeStyle Lite Strips Strip See Rx Instructions .Route Qty: 100 5RF Rx Instructions: Tests 5X/day Linzess 290 mcg capsule 290 mcg PO QAM 30 Days Qty: 30 6RF Tresiba FlexTouch U-200 200 unit/mL (3 mL) insulin pen 30 unit subcut DAILY 90 Days Qty: 9 3RF Fiber Therapy (m-cellulose) 500 mg tablet 1,000 mg PO TID Qty: 180 5RF simethicone 180 mg capsule 180 mg PO TID Qty: 90 6RF benztropine 0.5 mg tablet 0.5 mg PO BID hydroxyzine pamoate 50 mg capsule 50 mg PO TID PRN (Reason: Anxiety) sildenafil 50 mg tablet 50 mg PO DAILY PRN (Reason: sexual activity) Qty: 10 0RF Rx Instructions: administer 30 minutes to 4 hours before activity (DME) pen needle, diabetic [BD Ultra-Fine Orig Pen Needle] 29 gauge x 1/2 needle See Rx Instructions .ROUTE DAILY Qty: 100 3RF Rx Instructions: As directed daily ibuprofen 800 mg tablet 800 mg PO Q8H PRN (Reason: for pain) 30 Days Qty: 90 0RF Rx Instructions: take with food Debrox 6.5 % drops 5 drp otic (ear) right Q12H 5 Days Qty: 15 0RF clozapine 100 mg tablet 100 mg PO TID Digestive Advantage Advanced 10 billion cell capsule PO polyethylene glycol 3350 [Miralax] 17 gram powder in packet 17 g PO BID Qty: 30 6RF Hold Instructions: Doctor's Order sennosides [senna] 8.6 mg tablet 17.2 mg PO BEDTIME Qty: 60 6RF Hold Instructions: Doctor's Order Tylenol Extra Strength 500 mg powder in packet 500 mg PO QID PRN bisacodyl [Dulcolax (bisacodyl)] 5 mg tablet,delayed release (DR/EC) See Rx Instructions PO BEDTIME 30 Days Qty: 90 6RF Rx Instructions: 2 tabs qhs and 1 qam PO bedtime; docusate sodium 100 mg capsule 100 mg PO BID Qty: 60 6RF Referrals: Luis Manuel Garcia MD [Primary Care Provider] - Stand Alone Forms: Work/School Release Discharge Date/Time: 09/03/23 14:19
[2023-09-03 12:53] VITALS: BP 129/81; PULSE 97; RESP 18; TEMP 36.7; O2SAT 97; BMI 32.8
[2023-09-03 13:20] LABS: COVID-19 Test Negative (Negative); IDNOW Serial# 08D9AD1C; IDNOW Serial# 152EDE1D; Strep A Nucleic Acid Negative (Negative)
[2023-09-03 13:40] LABS: IDNOW Serial# 9DB6401D; Influenza A Negative (Negative); Influenza B2 Negative (Negative)
== END 2023-09-03 14:19 | disposition home or self-care (01) ==
PROVIDERS: Nurse Practitioner Family; Emergency Provider Emergency Medicine; PCP Internal Medicine
DX: J02.9 Acute pharyngitis, unspecified (principal); Z11.52 Encounter for screening for COVID-19; Z79.899 Other long term (current) drug therapy
CPT/HCPCS: 87502; 87635; 87651; 99283; 99284

== ENCOUNTER 2023-09-27 07:42 | Outpatient (REF) | payer OTHER, SELFPAY ==
[2023-09-27 07:56] LABS: MANUAL DIFF FLAG NO
[2023-09-27 08:51] LABS: Hematocrit 45.1 % (42.0-52.0); Hemoglobin 15.9 g/dl (14.0-18.0); Imm Gran Abs Auto 0.03 X10*3/uL (0.00-0.03); Imm Gran Pct Auto 0.5 % (0.0-0.4); Lymphocytes Absolute Auto 1.3 X10*3/uL (1.2-4.9); Lymphocytes Percent Auto 20.9 % (20-40); Mean Corpuscular HGB Conc 35.3 g/dl (31.0-36.0); Mean Corpuscular Hemoglobin 29.9 pg (27.0-33.0); Mean Corpuscular Volume 84.8 fL (80.0-98.0); Mean Platelet Volume 10.5 fL (9.4-12.4); Monocytes Absolute Auto 0.5 X10*3/uL (0.1-1.2); Monocytes Percent Auto 7.6 % (2-11); Neutrophils Absolute Auto 4.4 x10*3/uL (2.0-8.3); Platelet Count 111 X10*3/uL (160-400); Red Blood Count 5.32 X10*6/uL (4.60-5.80); Red Cell Distribution Width 13.2 % (11.0-16.0); White Blood Count 6.2 X10*3/uL (4.8-10.8)
== END 2023-09-27 07:43 | disposition home or self-care (01) ==
LOC: HO.LABR 07:42
PROVIDERS: PCP Internal Medicine; Visit Provider Psychiatry & Neurology Psychiatry
DX: F25.0 Schizoaffective disorder, bipolar type (principal); Z51.81 Encounter for therapeutic drug level monitoring; Z79.899 Other long term (current) drug therapy
CPT/HCPCS: 36415; 85025

== ENCOUNTER 2023-10-06 10:28 | Outpatient (AMB) | payer OTHER, SELFPAY ==
[2023-10-06 10:50] VITALS: BP 100/73; PULSE 81; BMI 35.8
--- NOTE | 2023-10-06 10:50 | MHC.OFFVIS ---
Intake Vital Signs 10/06/23 10:50 Height 6 ft 1 in Weight 271 lb 2.697 oz BMI 35.8 BP 100/73 Blood Pressure Location Lt brachial Position Sitting Pulse 81 Intake Visit Reasons: pt called for sooner appointment Intake Note: Patient c/o on and off constipation improves with MOM. Patient reports stomach cramps, constipation, diarrhea, gas. Dust Mop Maker Required: No Accompanied by: Self / Same As Patient Allergies No Known Allergies [No Known Allergies*] Allergy (Verified 10/19/23 10:18) HPI pt called for sooner appointment HPI Details Am takes Linzess, fiber 2 tabs tid, at night tates senns,and bisacodyl 1 qam and 2 qhs, simethicone and colace and he continues his reglan tid. If he gets CIC will take MOM and drinks more water. ? He still goes back and forth between CIC and diarrhea. He says they are equal occurrence. BECAUSE HAS POOR insight memory into what he may be doing differently on the cause a wide swings in his bowels is extremely difficult to manage the situation. I continued urged him to try to make connections with things like coffee consumption, water intake, exercise, food eaten etc.. The only medication he is really taking p.r.n. as hydroxyzine. ? He says I think I'm on too much medication, so I advise him to stop the senna. ? ROV 3 mos Medications He took 3 shots of MOM and then had a large solid BM followed by loose stools and then a lot of gas. He admits that he has not been eating as well. For now we will encourage him to take milk of magnesia more often and he can keep the already next scheduled appointment [facility] Medical History Colon cancer screening COVID-19 Pre-op examination Elevated LFTs Encounter for Medicare annual wellness exam Bowel obstruction Melena Knee pain, bilateral Gastroenteritis Healed wound Chronic idiopathic constipation Chronic idiopathic constipation Right hand pain Hospital discharge follow-up Knee osteoarthritis Pain in both feet Obesity (BMI 30-39.9) Schizoaffective disorder Pure hypercholesterolemia Benign essential hypertension Chronic kidney disease (CKD), stage III (moderate) Type 2 diabetes mellitus with diabetic chronic kidney disease Morbid obesity Dyslipidemia 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 mellitus long-term (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 Diabetic polyneuropathy associated with 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 mellitus Schizo affective schizophrenia Diabetes type 2, uncontrolled Surgical History History of repair of congenital cleft palate Hx of circumcision Family History Father HTN (hypertension) Mother Diabetes Other Mental health problem Social History Household Members: None Housing: Apartment Are you a primary managed care specialist to a significant other at home: No Do you presently have visiting nurse or other home services: Yes Alcohol intake: former Patient Tobacco Use Status: Former Tobacco user Tobacco use type: Cigarette Cigarettes Per Day: 15 Years Smoked: 8 quit 30 years ago e-Cigarette/Vaping Use: Never Used Second Hand Smoke Exposure: No service: No Current occupational status: employed Current occupation: [employer] Cognitive needs: No Hearing needs: No Vision needs: Yes (glasses) Review of Systems Const Denies fatigue, Denies fever(s), Denies night sweats, Denies poor appetite and Denies weight loss Eyes Details: Glasses Reports requires corrective lenses ENT Reports Normal hearing present, Denies dental pain, Denies dysphagia, Denies hearing loss, Denies mouth pain, Denies odynophagia, Denies throat swelling, Denies tongue swelling and Reports other (Dentition adequate) Card Reports no additional complaints Resp Reports no additional complaints GI Details: Denies abdominal pain, Denies melena, Denies bloating, Denies hematochezia, Reports constipation, Denies GI cramping, Denies dysphagia, Denies excessive flatus, Reports early satiety, Reports heartburn, Denies diarrhea, Denies nausea, Denies odynophagia, Denies vomiting and Denies hematemesis Skin/Breast Denies pruritus, Denies lesions, Denies rash and Denies jaundice Neuro Reports Normal hearing present and Denies Abnormal speech present Endo Denies fatigue Aller/Immun Denies throat swelling and Denies tongue swelling Physical Exam Vital Signs: Last Vital Signs Pulse 81 10/06/23 10:50 BP 100/73 10/06/23 10:50 BMI result Body Mass Index 35.8 Const General: cooperative, no acute distress, well developed and well groomed Nutritional Appearance: well nourished and obese Orientation/consciousness: oriented to person, oriented to place and oriented to time Limitations: No language barrier and other limitations HEENT Head: Yes normocephalic and Yes atraumatic Eyes General: appearance normal, both eyes and all related structures Pupils: Equal, round and reactive pupils present Neck Neck: Yes normal visual inspection and Yes no lymphadenopathy Thyroid: Thyroid normal Resp Effort & Inspection: normal respiratory effort and able to speak in complete sentences Auscultation: clear to auscultation bilaterally Cardio Rate: regular rate Rhythm: regular rhythm Heart sounds: Normal, physiologic split S2 sound present Peripheral pulses: radial pulses present and posterior tibial pulses present GI Inspection: No distended, Yes Abdominal panniculus present and Yes obesity Palpation (GI): Soft to palpation, nontender, no guarding, not rigid and No hepatosplenomegaly present Percussion: Yes normal to percussion Auscultation: normal bowel sounds Rectal Exam - Male: Yes deferred Skin General skin exam: no rashes or lesions noted, turgor normal, skin not dry, no jaundice, No spider nevi and no striae Rashes: no rashes Nails: normal Neuro General: oriented to person, oriented to place and oriented to time Cranial nerves: Yes Equal, round and reactive pupils present and Yes Normal hearing present Speech: No Abnormal speech present Extrem General: Yes normal to inspection, No clubbing, No cyanosis and No edema Psych Appearance: grossly normal and well kempt Mental Status: mental status grossly normal Speech and movement: Normal speech and movement present Affect: normal affect Attitude: cooperative Thought process: Normal thought process present and not confabulating Thought content: Normal thought content present Insight: Poor insight present (Psych) Judgement: Poor judgement present (Psych) Assessment & Plan Assessment & Plan (1) Chronic idiopathic constipation: Code(s): K59.04 - Chronic idiopathic constipation Plan: He took 3 shots of MOM and then had a large solid BM followed by loose stools and then a lot of gas. He admits that he has not been eating as well. For now we will encourage him to take milk of magnesia more often and he can keep the already next scheduled appointment Medications: Discontinued peg 3350-electrolytes [id number] -5.86 gram until fecal effluent is clear; do not exceed a total volume of 2,000 mL Discontinued Reason: No Longer Medically Relevant 240 mL PO Q10M 1 day 4,000 mL 0RF Z12.11 - Encounter for screening for malignant neoplasm of colon Coding Level of Care Code Est Pt Level 3 (09572) Diagnoses Chronic idiopathic constipation K59.04
== END 2023-10-06 11:34 | disposition home or self-care (01) ==
PROVIDERS: PCP Internal Medicine; Visit Provider Nurse Practitioner
DX: K59.04 Chronic idiopathic constipation (principal)
CPT/HCPCS: 99213

== ENCOUNTER → 2023-10-06 10:28 | Outpatient (BNVA) | payer OTHER, SELFPAY | PROVIDERS: PCP Internal Medicine; Visit Provider Nurse Practitioner | DX: K59.04 Chronic idiopathic constipation (principal) | CPT/HCPCS: 99212 ==

== ENCOUNTER 2023-10-19 10:06 | Outpatient (AMB) | payer OTHER, SELFPAY ==
[2023-10-19 10:10] VITALS: BP 119/71; PULSE 92; BMI 35.1
--- NOTE | 2023-10-19 10:10 | A.OFFVIS_ITS ---
Intake Vital Signs 10/19/23 10:10 Height 6 ft 1 in Weight 265 lb 14.04 oz BMI 35.1 BP 119/71 Blood Pressure Location Rt brachial Position Sitting Pulse 92 Intake Visit Reasons: 3 month follow up Intake Note: Mike returns to office in follow up of constipation. CC: Patient reports he has been emptying his bowels a lot with MOM. Household Appliance Installer Required: No Accompanied by: Self / Same As Patient Allergies No Known Allergies [No Known Allergies*] Allergy (Verified 10/19/23 10:18) HPI 3 month follow up HPI Details Am takes Linzess, fiber 2 tabs tid, at night takes senna,and bisacodyl 1 qam and 2 qhs, simethicone and colace and he continues his reglan tid. If he gets CIC will take MOM and drinks more water. ? He still goes back and forth between CIC and diarrhea. He says they are equal occurrence. BECAUSE HAS POOR insight memory into what he may be doing differently on the cause a wide swings in his bowels is extremely difficult to manage the situation. I continued urged him to try to make connections with things like coffee consumption, water intake, exercise, food eaten etc.. The only medication he is really taking p.r.n. as hydroxyzine. ? He says I think I'm on too much medication, so I advise him to stop the senna. ? ROV 3 mos Medications He took 3 shots of MOM and then had a large solid BM followed by loose stools and then a lot of gas. He admits that he has not been eating as well. TODAY'S VISIT He returns today and advised me he is pooping like crazy. He did not try taking the MOM in smaller amounts daily feeling my body will get used to it. I try to convince him this is not the case, but his level of understanding is limited. He wants to use this and lettuce to move his bowels. Obviously, since I can't go home wtih him we will try to continue as is. He continues to have variable BM's, but this seems most linked to his inconsi stent medication compliance and poor understanding of his regimens. He feels he eats too much at his meals. When I ask how he has been eating lately he says not good, junk. So, fiber intake is also very inconsistent. He finds apples gives him diarrhea, and he dislikes bran cereals preferring shredded wheat. His current regimen is supposed to consists of bisacodyl, Colace 100 mg twice a day, a probiotic supplement, Linzess 290 micro g, milk of magnesia p.r.n., fiber therapy twice a day, metoclopramide 5 mg 3 times a day, MiraLax and senna in the past but this is currently held, and simethicone 180 mg 3 times a day. Medications contributing to his constipation include benztropine, vitamin D3, Jardiance, furosemide, hydroxyzine, metformin. ROV 3 mos. PFS Medical History Colon cancer screening COVID-19 Pre-op examination Elevated LFTs Encounter for Medicare annual wellness exam Bowel obstruction Melena Knee pain, bilateral Gastroenteritis Healed wound Chronic idiopathic constipation Chronic idiopathic constipation Right hand pain Hospital discharge follow-up Knee osteoarthritis Pain in both feet Obesity (BMI 30-39.9) Schizoaffective disorder Pure hypercholesterolemia Benign essential hypertension Chronic kidney disease (CKD), stage III (moderate) Type 2 diabetes mellitus with diabetic chronic kidney disease Morbid obesity Dyslipidemia 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 mellitus 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 Diabetic polyneuropathy associated with 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 mellitus Schizo affective schizophrenia Diabetes type 2, uncontrolled Surgical History History of repair of congenital cleft palate Hx of circumcision Family History Father HTN (hypertension) Mother Diabetes Other Mental health problem Social History Household Members: None Housing: Apartment Are you a primary child daycare worker to a significant other at home: No Do you presently have visiting nurse or other home services: Yes Alcohol intake: former Patient Tobacco Use Status: Former Tobacco user Tobacco use type: Cigarette Cigarettes Per Day: 15 Years Smoked: 8 quit 30 years ago e-Cigarette/Vaping Use: Never Used Second Hand Smoke Exposure: No service: No Current occupational status: employed Current occupation: [employer] Cognitive needs: No Hearing needs: No Vision needs: Yes (glasses) Review of Systems Const Denies fatigue, Denies fever(s), Denies night sweats, Denies poor appetite and Denies weight loss Eyes Details: glasses Reports requires corrective lenses ENT Reports Normal hearing present, Denies dental pain, Denies dysphagia, Denies hearing loss, Denies mouth pain, Denies odynophagia, Denies throat swelling, Denies tongue swelling and Reports other (Dentition adequate) Card Reports no additional complaints Resp Reports no additional complaints GI Details: Denies abdominal pain, Denies melena, Denies bloating, Denies hematochezia, Reports constipation, Denies GI cramping, Denies dysphagia, Denies excessive flatus, Denies early satiety, Denies heartburn, Denies diarrhea, Reports loose stools, Denies nausea, Denies odynophagia, Denies vomiting and Denies hematemesis Skin/Breast Denies pruritus, Denies lesions, Denies rash and Denies jaundice Neuro Reports Normal hearing present and Denies Abnormal speech present Endo Denies fatigue Aller/Immun Denies throat swelling and Denies tongue swelling Physical Exam Vital Signs: Last Vital Signs Pulse 92 10/19/23 10:10 BP 119/71 10/19/23 10:10 BMI result Body Mass Index 35.1 Const General: cooperative, no acute distress, well developed and well groomed Nutritional Appearance: well nourished and obese Orientation/consciousness: oriented to person, oriented to place and oriented to time Limitations: No language barrier and other limitations (Psychiatric and cognitive limitations) HEENT Head: Yes normocephalic and Yes atraumatic Eyes General: appearance normal, both eyes and all related structures Pupils: Equal, round and reactive pupils present Neck Neck: Yes normal visual inspection and Yes no lymphadenopathy Thyroid: Thyroid normal Resp Effort & Inspection: normal respiratory effort and able to speak in complete sentences Auscultation: clear to auscultation bilaterally Cardio Rate: regular rate Rhythm: regular rhythm Heart sounds: Normal, physiologic split S2 sound present Peripheral pulses: radial pulses present and posterior tibial pulses present GI Inspection: No distended, Yes Abdominal panniculus present and Yes obesity Palpation (GI): Soft to palpation, nontender, no guarding, not rigid and No hepatosplenomegaly present Percussion: Yes normal to percussion Auscultation: normal bowel sounds Rectal Exam - Male: Yes deferred Skin General skin exam: no rashes or lesions noted, turgor normal, skin not dry, no jaundice, No spider nevi and no striae Rashes: no rashes Nails: normal Neuro General: oriented to person, oriented to place and oriented to time Cranial nerves: Yes Equal, round and reactive pupils present and Yes Normal hearing present Speech: No Abnormal speech present Extrem General: Yes normal to inspection, No clubbing, No cyanosis and No edema Psych Appearance: grossly normal and well kempt Mental Status: mental status grossly normal Speech and movement: Normal speech and movement present Affect: normal affect Attitude: cooperative Thought process: Circumstantial thought process present and not confabulating Thought content: Normal thought content present Insight: Poor insight present (Psych) Judgement: Poor judgement present (Psych) Assessment & Plan Assessment & Plan (1) Chronic idiopathic constipation: Code(s): K59.04 - Chronic idiopathic constipation (2) Delayed gastric emptying: Code(s): K30 - Functional dyspepsia (3) Abdominal bloating: Code(s): R14.0 - Abdominal distension (gaseous) Plan He returns today and advised me he is pooping like crazy. He did not try taking the MOM in smaller amounts daily feeling my body will get used to it. I try to convince him this is not the case, but his level of understanding is limited. He wants to use this and lettuce to move his bowels. Obviously, since I can't go home wtih him we will try to continue as is. He continues to have variable BM's, but this seems most linked to his inconsistent medication compliance and poor understanding of his regimens. He feels he eats too much at his meals. When I ask how he has been eating lately he says not good, junk. So, fiber intake is also very inconsistent. He finds apples gives him diarrhea, and he dislikes bran cereals preferring shredded wheat. His current regimen is supposed to consists of bisacodyl, Colace 100 mg twice a day, a probiotic supplement, Linzess 290 micro g, milk of magnesia p.r.n., fiber therapy twice a day, metoclopramide 5 mg 3 times a day, MiraLax and senna in the past but this is currently held, and simethicone 180 mg 3 times a day. Medications contributing to his constipation include benztropine, vitamin D3, Jardiance, furosemide, hydroxyzine, metformin. ROV 3 mos. Medications: Refilled methylcellulose (laxative) (Fiber Therapy (methylcellulose)) 1,000 mg (2 x 500 mg) PO TID 180 tabs 5RF bisacodyl (Dulcolax (bisacodyl)) 2 tabs qhs and 1 qam PO bedtime; 30 days 90 tabs 6RF K59.04 - Chronic idiopathic constipation linaclotide (Linzess) 290 mcg PO QAM 30 days 30 caps 6RF K59.04 - Chronic idiopathic constipation metoclopramide HCl 5 mg PO TID 90 tabs 1RF simethicone 180 mg PO TID 90 caps 6RF R14.0 - Abdominal distension (gaseous) docusate sodium 100 mg PO BID 60 caps 6RF Coding Level of Care Code Est Pt Level 3 (51368) Diagnoses Chronic idiopathic constipation K59.04 Delayed gastric emptying K30 Abdominal bloating R14.0
== END 2023-10-19 10:26 | disposition home or self-care (01) ==
PROVIDERS: PCP Internal Medicine; Visit Provider Nurse Practitioner
DX: K59.04 Chronic idiopathic constipation (principal); K30 Functional dyspepsia; R14.0 Abdominal distension (gaseous)
CPT/HCPCS: 99213

== ENCOUNTER → 2023-10-19 10:06 | Outpatient (BNVA) | payer OTHER, SELFPAY | PROVIDERS: PCP Internal Medicine; Visit Provider Nurse Practitioner | DX: K59.04 Chronic idiopathic constipation (principal); K30 Functional dyspepsia; R14.0 Abdominal distension (gaseous) | CPT/HCPCS: 99212 ==

== ENCOUNTER 2023-10-24 07:46 | Outpatient (REF) | payer OTHER, SELFPAY ==
[2023-10-24 08:06] LABS: MANUAL DIFF FLAG NO
[2023-10-24 08:32] LABS: Hemoglobin 15.8 g/dl (14.0-18.0); Imm Gran Abs Auto 0.03 X10*3/uL (0.00-0.03); Imm Gran Pct Auto 0.5 % (0.0-0.4); Lymphocytes Absolute Auto 1.5 X10*3/uL (1.2-4.9); Lymphocytes Percent Auto 24.1 % (20-40); Mean Corpuscular HGB Conc 35.9 g/dl (31.0-36.0); Mean Corpuscular Volume 83.5 fL (80.0-98.0); Mean Platelet Volume 10.2 fL (9.4-12.4); Monocytes Absolute Auto 0.5 X10*3/uL (0.1-1.2); Monocytes Percent Auto 8.4 % (2-11); Neutrophils Absolute Auto 4.1 x10*3/uL (2.0-8.3); Platelet Count 104 X10*3/uL (160-400); Red Blood Count 5.27 X10*6/uL (4.60-5.80); Red Cell Distribution Width 12.9 % (11.0-16.0); WBCANC 6.1 X10*3/uL; White Blood Count 6.1 X10*3/uL (4.8-10.8)
== END 2023-10-24 07:47 | disposition home or self-care (01) ==
LOC: HO.LABR 07:46
PROVIDERS: PCP Internal Medicine; Visit Provider Psychiatry & Neurology Psychiatry
DX: F25.0 Schizoaffective disorder, bipolar type (principal); Z79.899 Other long term (current) drug therapy
CPT/HCPCS: 36415; 85025

== ENCOUNTER 2023-10-26 12:48 | Outpatient (AMB) | payer OTHER, SELFPAY ==
--- NOTE | 2023-10-26 12:52 | AM.OFFWIN_ITS ---
Intake Vital Signs 10/26/23 12:53 Weight 275 lb BP 110/72 Blood Pressure Location Lt brachial Position Sitting Pulse 80 Pulse Source Pulse Oximeter Pulse Oximetry (%) 98 Oxygen Delivery Method Room Air Intake Visit Reasons: EP Hip/Back pain ~ extremely tired Intake Note: Patient here for severe back and hip pain that has been present for about 5 days. Pt states he has also been very fatigued which has going on for about 2 weeks. Patient Tobacco Use Status: Former Tobacco user Allergies No Known Allergies [No Known Allergies*] Allergy (Verified 10/26/23 12:54) Do you need a note to return to daycare/school/sports/work: No HPI HPI Comments History of Present Illness Details 63 y/o male patient who presents to walk in clinic with c/o left lower back pain that radiates down to left lower hip and leg. Pt also c/o feeling extremely tired, and fatigued x 2 weeks. Denies fevers, chills, nausea or vomiting. [facility] Medical History Colon cancer screening COVID-19 Pre-op examination Elevated LFTs Encounter for Medicare annual wellness exam Bowel obstruction Melena Knee pain, bilateral Gastroenteritis Healed wound Chronic idiopathic constipation Chronic idiopathic constipation Right hand pain Hospital discharge follow-up Knee osteoarthritis Pain in both feet Obesity (BMI 30-39.9) Schizoaffective disorder Pure hypercholesterolemia Benign essential hypertension Chronic kidney disease (CKD), stage III (moderate) Type 2 diabetes mellitus with diabetic chronic kidney disease Morbid obesity Dyslipidemia 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 mellitus 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 Diabetic polyneuropathy associated with 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 mellitus Schizo affective schizophrenia Diabetes type 2, uncontrolled Surgical History History of repair of congenital cleft palate Hx of circumcision Family History Father HTN (hypertension) Mother Diabetes Other Mental health problem Social History Household Members: None Housing: Apartment Are you a primary neonatal intensive care nurse to a significant other at home: No Do you presently have visiting nurse or other home services: Yes Alcohol intake: former Patient Tobacco Use Status: Former Tobacco user Tobacco use type: Cigarette Cigarettes Per Day: 15 Years Smoked: 8 quit 30 years ago e-Cigarette/Vaping Use: Never Used Second Hand Smoke Exposure: No service: No Current occupational status: employed Current occupation: [employer] Cognitive needs: No Hearing needs: No Vision needs: Yes (glasses) Review of Systems Const All systems reviewed & are unremarkable except as noted in HPI and below Physical Exam Vital Signs: Last Vital Signs Pulse 80 10/26/23 12:53 BP 110/72 10/26/23 12:53 Pulse Ox 98 10/26/23 12:53 Oxygen Delivery Method Room Air 10/26/23 12:53 Const General: comfortable and no acute distress Nutritional Appearance: obese Orientation/consciousness: patient oriented x3 General: Yes no CVA tenderness Back/Spine/Pelvis Back: no CVA tenderness Cervical Spine: cervical ROM normal Thoracic/Lumbar Spine: thoraco-lumbar ROM normal Neuro General: patient oriented x3 and gait normal Psych Speech and movement: Normal speech and movement present Attitude: cooperative Assessment & Plan Assessment & Plan (1) Malaise and fatigue: Code(s): R53.81 - Other malaise; R53.83 - Other fatigue Plan: Pt prefers to go [facility] for further evaluation. SARs to r/o Resp infections. (2) Back pain: Code(s): M54.9 - Dorsalgia, unspecified Qualifiers: Back pain laterality: midline Back pain location: low back pain Chronicity: unspecified Sciatica presence: without sciatica Qualified Code(s): M54.50 - Low back pain, unspecified Plan: Pt prefers to go to [facility] for further evaluation. Orders: Orders SARS-CoV2/FLU/RSV Today R53.81 - Other malaise, R53.83 - Other fatigue Coding Level of Care Code Est Pt Level 3 (65471) Diagnoses Malaise and fatigue R53.81; R53.83 Midline low back pain without sciatica, unspecified chronicity M54.50 Back pain laterality: midline Back pain location: low back pain Chronicity: unspecified Sciatica presence: without sciatica Time Spent (min) 15
[2023-10-26 12:53] VITALS: BP 110/72; PULSE 80; O2SAT 98
== END 2023-10-26 14:57 | disposition home or self-care (01) ==
PROVIDERS: PCP Internal Medicine; Visit Provider Nurse Practitioner Family
DX: R53.81 Other malaise (principal); R53.83 Other fatigue; M54.50 Low back pain, unspecified
CPT/HCPCS: 99213

== ENCOUNTER 2023-10-26 13:14 | Outpatient (REF) | payer OTHER, SELFPAY ==
[2023-10-26 17:36] LABS: Influenza A PCR NEGATIVE (Negative); Influenza B PCR NEGATIVE (Negative); Resp Syncy Virus RNA Qual PCR NEGATIVE (Negative); SARS COV2 PCR INHOUSE NEGATIVE (Negative)
== END 2023-10-26 13:15 | disposition home or self-care (01) ==
LOC: HO.LAB 13:14
PROVIDERS: Visit Provider Nurse Practitioner Family
DX: R53.81 Other malaise (principal); R53.83 Other fatigue; Z11.52 Encounter for screening for COVID-19; Z20.828 Contact with and (suspected) exposure to other viral communicable diseases
CPT/HCPCS: 0241U

== ENCOUNTER 2023-10-26 13:35 | Emergency (ER) | payer OTHER, SELFPAY ==
--- NOTE | ~2023-10-26 | XR_ITS ---
EXAMINATION: XR HIP, LEFT CLINICAL INFORMATION: Osteoarthritis. COMPARISON: CT abdomen/pelvis 02/25/2023. TECHNIQUE: Two views of the left hip. FINDINGS: No fracture or subluxation. Mild degenerative osteoarthritis in both hips with joint space narrowing and subchondral sclerosis. Symmetric SI joints. Pelvic ring and pubic symphysis are maintained. No significant soft tissue abnormality. XR/XR hip LT min 2V IMPRESSION: No acute fracture or subluxation. Mild degenerative osteoarthritis in both hips.
[2023-10-26 13:51] VITALS: BP 143/88; PULSE 81; RESP 16; TEMP 36.6; O2SAT 97; BMI 191561.4
--- NOTE | 2023-10-26 13:52 | ED_ITS ---
HPI - General Adult General Chief complaint: General Medical Stated complaint: Fatigue, back & hip pain Time Seen by Provider: 10/26/23 20:18 Source: patient Mode of arrival: ambulatory Limitations: no limitations History of Present Illness HPI narrative: patient comes to the emergency room complaining of achy back pain on the left for several days. Patient states that if he moves a certain way it hurts. patient denies any recent injury. Patient states that he took Motrin a few days ago and then the pain went away but then returned. Patient is able to ambulate, denies any UTI symptoms. Also, patient complaining of worsening fatigue. Patient states that he goes early to bed, but he wakes up very tired. Patient states that sometimes he falls asleep at random moments, especially at work. Patient states that he is so tired that sometimes he used does not remember falling asleep. Patient denies any syncopal episodes. Related Data Home Medications ?Medication ?Instructions ?Recorded ?Confirmed hydroxyzine pamoate 50 mg capsule 50 mg PO TID PRN Anxiety 09/18/20 09/01/23 benztropine 0.5 mg tablet 0.5 mg PO BID 04/29/22 09/01/23 L.acidoph, paracasei,B. lactis 10 cell PO 05/12/22 09/01/23 billion cell capsule (Digestive Advantage Advanced Probiotic) clozapine 100 mg tablet 100 mg PO TID 05/12/22 09/01/23 bisacodyl 5 mg tablet (Laxative mg PO 11/08/23 (bisacodyl)) magnesium hydroxide 2,400 mg/10 mL 10 ml PO BEDTIME PRN 11/08/23 oral suspension (Milk Of Magnesia Concentrated) Previous Rx's ?Medication ?Instructions ?Recorded sildenafil 50 mg tablet 50 mg PO DAILY PRN sexual activity 08/11/22 #10 tabs polyethylene glycol 3350 17 gram 17 g PO BID #30 ea 08/12/22 oral powder packet (Miralax) cholecalciferol (vitamin D3) 25 25 mcg PO DAILY #90 caps 11/03/22 mcg (1,000 unit) capsule sennosides 8.6 mg tablet (senna) 17.2 mg (2 x 8.6 mg) PO BEDTIME 02/24/23 for constipation #60 tabs blood-glucose meter (FreeStyle #1 ea 03/27/23 Lite Meter kit) flash glucose scanning reader #1 ea 04/10/23 (FreeStyle Jody 2 [place]) pen needle, diabetic 29 gauge x #100 ea 05/12/2308/15 (BD Ultra-Fine Original Pen Needle) furosemide 20 mg tablet 20 mg PO DAILY #90 tabs 05/25/23 magnesium hydroxide 400 mg/5 mL 10 ml PO BEDTIME #3,780 mL 06/07/23 oral suspension (Milk of Magnesia) blood sugar diagnostic (FreeStyle #100 ea 06/21/23 Lite Strips) Tresiba FlexTouch U-200 200 30 unit (0.15 mL) subcut DAILY 90 07/03/23 unit/mL (3 mL) subcutaneous pen days #9 mL (insulin degludec) carbamide peroxide 6.5 % ear drops 5 drp otic (ear) right Q12H 09/01/23 (Debrox) impacted cerumen in right ear 5 days #15 mL ibuprofen 800 mg tablet 800 mg PO Q8H PRN for pain 30 days 09/01/23 #90 tabs phenol 1.5 %-glycerin 33 % mucosal 1 spray mucous membrane Q6-8H PRN 09/03/23 spray (Chloraseptic Max Sore sore throat #118 mL Throat) lancets 28 gauge (FreeStyle #100 ea 09/14/23 Lancets) atorvastatin 10 mg tablet 10 mg PO DAILY #90 tabs 09/26/23 empagliflozin 25 mg tablet 25 mg PO QAM #30 tabs 10/11/23 (Jardiance) bisacodyl 5 mg tablet,delayed See Rx Instructions PO BEDTIME 30 10/19/23 release (Dulcolax (bisacodyl)) days #90 tabs docusate sodium 100 mg capsule 100 mg PO BID #60 caps 10/19/23 linaclotide 290 mcg capsule 290 mcg PO QAM 30 days #30 caps 10/19/23 (Linzess) methylcellulose (laxative) 500 mg 1,000 mg (2 x 500 mg) PO TID #180 10/19/23 tablet (Fiber Therapy tabs (methylcellulose)) metoclopramide HCl 5 mg tablet 5 mg PO TID #90 tabs 10/19/23 simethicone 180 mg capsule 180 mg PO TID #90 caps 10/19/23 blood-glucose meter (FreeStyle #1 ea 10/20/23 Lite Meter kit) acetaminophen 500 mg tablet 500 mg PO Q6H PRN fever or pain 10/26/23 #20 tabs cyclobenzaprine 10 mg tablet 10 mg PO TID PRN muscle spasm #10 10/26/23 tabs metformin 500 mg tablet 1,000 mg (2 x 500 mg) PO BID 90 11/01/23 days #360 tabs gabapentin 300 mg capsule 300 mg PO BEDTIME 90 days #90 caps 11/03/23 Allergies Allergy/AdvReac Type Severity Reaction Status Date / Time No Known Allergies Allergy Verified 11/08/23 12:45 [No Known Allergies*] Review of Systems 2 Review of Systems: Constitutional : No Weight loss, No Fever, No Chills, No Night Sweats, No Fatigue, No Malaise , excessive fatigue, sleepiness. ENT/Mouth : No Hearing loss, No Ear Pain, No Nasal Congestion, No Sinus Pain, No Hoarseness, No sore throat, No Rhinorrhea, No Swallowing Difficulty Eyes: No Eye Pain, No Swelling, No Redness, No Foreign Body, No Discharge, No Vision Changes Cardiovascular : No Chest Pain, No SOB, No Dyspnea on Exertion, No Orthopnea, No Edema, No Palpitations Respiratory : No Cough, No Sputum, No Wheezing, No Smoke Exposure, No Dyspnea Gastrointestinal : No Nausea, No Vomiting, No Diarrhea, No Constipation, No abdominal Pain, No Hematochezia, No Melena Genitourinary : no irregular bleeding, No Dysuria, No Urinary Frequency, No Hematuria, No Urinary Incontinence, No Urgency, No Flank Pain, No Urinary Flow Changes, No Hesitancy Musculoskeletal : Complaining of left lower back pain, No Myalgias, No Joint Swelling Skin : No Skin Lesions, No rash Neuro : No Weakness, No Numbness, No Paresthesias, No Loss of Consciousness, No Dizziness, No Headache Psych : No Anxiety/Panic, No Depression, No SI/HI/AH/VH, No Social Issues, Heme/Lymph: No Bruising, No Bleeding,No Lymphadenopathy Endocrine : No Polyuria, No Polydipsia, No Temperature Intolerance PMFSH Past Medical History Medical History Colon cancer screening COVID-19 Pre-op examination Elevated LFTs Encounter for Medicare annual wellness exam Bowel obstruction Melena Knee pain, bilateral Gastroenteritis Healed wound Chronic idiopathic constipation Chronic idiopathic constipation Right hand pain Hospital discharge follow-up Knee osteoarthritis Pain in both feet Obesity (BMI 30-39.9) Schizoaffective disorder Pure hypercholesterolemia Benign essential hypertension Chronic kidney disease (CKD), stage III (moderate) Type 2 diabetes mellitus with diabetic chronic kidney disease Morbid obesity Dyslipidemia 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 mellitus senior living (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 Diabetic polyneuropathy associated with 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 mellitus Schizo affective schizophrenia Diabetes type 2, uncontrolled Surgical History History of repair of congenital cleft palate Hx of circumcision Family History Family History Father HTN (hypertension) Mother Diabetes Other Mental health problem Social History Social History Household Members: None Housing: Apartment Are you a primary home care consultant to a significant other at home: No Do you presently have visiting nurse or other home services: Yes Alcohol intake: former Patient Tobacco Use Status: Former Tobacco user Tobacco use type: Cigarette Cigarettes Per Day: 15 Years Smoked: 8 quit 30 years ago e-Cigarette/Vaping Use: Never Used Second Hand Smoke Exposure: No service: No Current occupational status: employed Current occupation: [employer] Cognitive needs: No Hearing needs: No Vision needs: Yes (glasses) Physical Exam ED Vital Signs: Vital Signs - 24 hr 10/26/23 13:51 10/26/23 16:55 10/26/23 19:11 Temperature 98 F 98.6 F 96.8 F Pulse Rate 81 82 86 Respiratory Rate 16 18 18 Blood Pressure 143/88 H 128/90 H 133/90 H Pulse Oximetry 97 98 100 Oxygen Delivery Method Room Air Room Air Room Air 10/26/23 20:00 Temperature 97.7 F Pulse Rate 78 Respiratory Rate 16 Blood Pressure 112/79 Pulse Oximetry 98 Oxygen Delivery Method Room Air BMI result Body Mass Index 591809.4 Const Other: Appearance: Alert. Oriented X3. No acute distress. Eyes: Pupils equal, round and reactive to light. ENT: Pharynx normal. Neck: Normal inspection. Neck supple. No lymph nodes noted. No crepitus CVS: Normal heart rate and rhythm. Pulses normal. Normal S1 and S2 Respiratory: No respiratory distress. Breath sounds normal. No Wheezing. No rales Abdomen: Soft and nontender. No rigidity. No distention. back: Pain to palpation just above the left hip posteriorly. No CVA tenderness Skin: Skin warm and dry. Normal skin color. Normal skin turgor. Extremities: No lower extremity edema. No Lacerations. No Rash Neuro: Oriented X 3. No motor deficit. No sensory deficit. Moving all extremities. No slurred speech. CN 2 through 12 grossly intact Psych: calm, cooperative, normal affect Course Course Course Narrative: This is an RME: Additional HPI, ROS, PE not included below will be deferred to primary provider. 63-year-old male history of hypertension, diabetes, obesity, schizoaffective disorder, bowel obstructions, osteoarthritis, CKD, hypercholesterolemia presenting with complaints of back and hip pain that has been present for 5 days as well as significant fatigue. Back pain present for the past 5 days however fatigue ongoing for past 2 weeks. Medications Administered Discontinued Medications Generic Name Dose Route Start Last Admin Trade Name Freq PRN Reason Stop Dose Admin Ketorolac Tromethamine 60 mg 10/26/23 22:01 10/26/23 22:13 Ketorolac Tromethamine 60 Mg/2 Ml Vial IM 10/26/23 22:02 60 mg ONCE ONE Administration Medical Decision Making Medical Decision Making [facility] Narrative: - my interpretation of x-ray of the hip: Mild osteoarthritis, no fracture. - My interpretation of labs: Normal hematology and chemistry, patient has glucosuria which is chronic. No UTI. - Patient was given a dose of IM ketorolac. Patient aware that he has not to take any ibuprofen for several days, only Tylenol if needed. - Also, I discussed with the patient that the fatigue is likely secondary to obstructive sleep apnea. Patient would benefit from a sleep study. Patient states that he will discuss this with his primary care physician. Differential Diagnosis Differential Diagnoses: The differential diagnosis associated with the presentation includes ( Arthritis, osteoarthritis, contusion, dislocation. obstructive sleep apnea, anemia.) Lab Data [facility] Lab Attestation statement: I reviewed the patient's lab results. 10/26/23 14:39 10/26/23 14:39 Labs: Lab Results 10/26/23 Range/Units 14:39 WBC 6.7 (4.8-10.8) X10*3/uL RBC 5.51 (4.60-5.80) X10*6/uL Hgb 16.1 (14.0-18.0) g/dl Hct 45.4 (42.0-52.0) % MCV 82.4 (80.0-98.0) fL MCH 29.2 (27.0-33.0) pg MCHC 35.5 (31.0-36.0) g/dl RDW 12.9 (11.0-16.0) % Plt Count 116 L (160-400) X10*3/uL MPV 10.0 (9.4-12.4) fL Immature Gran % (Auto) 0.5 H (0.0-0.4) % Neut % (Auto) 68.9 (45-73) % Lymph % (Auto) 22.6 (20-40) % [place] % (Auto) 8.0 (2-11) % Eos % (Auto) 0.0 (0-4) % Baso % (Auto) 0.0 (0-2) % Lymph # (Auto) 1.5 (1.2-4.9) X10*3/uL [place] # (Auto) 0.5 (0.1-1.2) X10*3/uL Eos # (Auto) 0.0 (0.0-0.4) X10*3/uL Baso # (Auto) 0.0 (0.0-0.2) X10*3/uL Abs Immat Gran (auto) 0.03 (0.00-0.03) X10*3/uL Absolute Neuts (auto) 4.6 (2.0-8.3) x10*3/uL Absolute Nucleated RBC 0.000 (0.0-0.012) X10*3/uL Nucleated RBC % (auto) 0.0 (0.0-0.2) /100WBC Sodium 141 (135-145) mmol/L Potassium 4.1 (3.3-5.1) mmol/L Chloride 108 (96-108) mmol/L Carbon Dioxide 22 (22-29) mmol/L Anion Gap 15 (12-20) BUN 24 H (9-16) mg/dL Creatinine 1.25 (0.5-1.4) mg/dL Estim Creat Clear Calc -1.7 Estimated GFR 59 Random Glucose 164 H (60-115) mg/dL Calcium 9.7 (8.4-10.2) mg/dL Magnesium 2.3 (1.6-2.6) mg/dL Total Bilirubin 0.6 (0.0-1.0) mg/dL AST 29 (5-37) U/L ALT 65 H (0-40) U/L Alkaline Phosphatase 143 H (39-117) U/L Total Protein 7.7 (6.5-8.0) g/dL Albumin 4.5 (3.5-5.0) g/dL Urine Color Yellow Urine Appearance Clear Urine pH 5.5 (5.0-9.0) Ur Specific [place] 1.015 (1.005-1.025) Urine Protein Negative (Neg-Trace) mg/dL Urine Glucose (UA) >=1000 H (Negative) mg/dL Urine Ketones Negative (Negative) mg/dL Urine Blood Negative (Negative) Urine Nitrite Negative (Negative) Ur Leukocyte Esterase Negative (Negative) Urine RBC 0-2 (0-2) /HPF Urine WBC 0-5 (0-5) /HPF Ur Squamous Epith Cells 0-2 (0-2) /HPF Urine Bacteria None Seen (None Seen) Hyaline Casts 0-2 (0-2) /LPF Independent Interpretation I performed an independent interpretation of an: Plain X-Ray Interpretation: No fracture or subluxation. Mild degenerative osteoarthritis in both hips with joint space narrowing and subchondral sclerosis. Symmetric SI joints. Pelvic ring and pubic symphysis are maintained. No significant soft tissue abnormality. XR/XR hip LT min 2V IMPRESSION: No acute fracture or subluxation. Mild degenerative osteoarthritis in both hips. Discharge Plan Discharge Clinical Impression: Obstructive sleep apnea, Musculoskeletal back pain Patient Disposition: Home, Self-Care Instructions: Sleep Apnea (DC), Back Pain (ED) Additional Instructions: Please follow-up with your primary care physician tomorrow. please discuss with your primary care physician that you may be a good candidate for a sleep test to rule out obstructive sleep apnea. Also, please do not take ibuprofen friend next 48 hours, only Tylenol if needed for the hip pain. If you have any worsening or new symptoms, please return to the emergency room or call 911 Prescriptions: New cyclobenzaprine 10 mg tablet 10 mg PO TID PRN (Reason: muscle spasm) Qty: 10 0RF acetaminophen 500 mg tablet 500 mg PO Q6H PRN (Reason: fever or pain) Qty: 20 0RF No Action cholecalciferol (vitamin D3) 25 mcg (1,000 unit) capsule 25 mcg PO DAILY Qty: 90 12RF (DME) blood-glucose meter [FreeStyle Lite Meter] Kit See Rx Instructions .Route Qty: 1 5RF Rx Instructions: Tests 4 X/day (DME) FreeStyle Jody 2 [place] Misc See Rx Instructions .ROUTE .MEDSUPPLY Qty: 1 1RF Rx Instructions: As directed furosemide 20 mg tablet 20 mg PO DAILY Qty: 90 1RF magnesium hydroxide [Milk of Magnesia] 400 mg/5 mL suspension 10 ml PO BEDTIME Qty: 3780 6RF (DME) FreeStyle Lite Strips Strip See Rx Instructions .Route Qty: 100 5RF Rx Instructions: Tests 5X/day Tresiba FlexTouch U-200 200 unit/mL (3 mL) insulin pen 30 unit subcut DAILY 90 Days Qty: 9 3RF (DME) lancets [FreeStyle Lancets] 28 gauge misc See Rx Instructions .Route Qty: 100 4RF Rx Instructions: Tests 5x/day atorvastatin 10 mg tablet 10 mg PO DAILY Qty: 90 0RF Jardiance 25 mg tablet 25 mg PO QAM Qty: 30 3RF (DME) blood-glucose meter [FreeStyle Lite Meter] Kit See Rx Instructions .ROUTE .MEDSUPPLY Qty: 1 0RF Rx Instructions: As directed metformin 500 mg tablet 1,000 mg PO BID 90 Days Qty: 360 1RF gabapentin 300 mg capsule 300 mg PO BEDTIME 90 Days Qty: 90 1RF benztropine 0.5 mg tablet 0.5 mg PO BID Chloraseptic Max Sore Throat 1.5-33 % spray,non-aerosol 1 spray mucous membrane Q6-8H PRN (Reason: sore throat) Qty: 118 0RF Rx Instructions: leave on area for 15 seconds then spit out hydroxyzine pamoate 50 mg capsule 50 mg PO TID PRN (Reason: Anxiety) sildenafil 50 mg tablet 50 mg PO DAILY PRN (Reason: sexual activity) Qty: 10 0RF Rx Instructions: administer 30 minutes to 4 hours before activity (DME) pen needle, diabetic [BD Ultra-Fine Orig Pen Needle] 29 gauge x 1/2 needle See Rx Instructions .ROUTE DAILY Qty: 100 3RF Rx Instructions: As directed daily ibuprofen 800 mg tablet 800 mg PO Q8H PRN (Reason: for pain) 30 Days Qty: 90 0RF Rx Instructions: take with food Debrox 6.5 % drops 5 drp otic (ear) right Q12H 5 Days Qty: 15 0RF Laxative (bisacodyl) 5 mg tablet PO magnesium hydroxide [Milk Of Magnesia Concentrated] 2,400 mg/10 mL suspension 10 ml PO BEDTIME PRN clozapine 100 mg tablet 100 mg PO TID Digestive Advantage Advanced 10 billion cell capsule PO polyethylene glycol 3350 [Miralax] 17 gram powder in packet 17 g PO BID Qty: 30 6RF Hold Instructions: Doctor's Order sennosides [senna] 8.6 mg tablet 17.2 mg PO BEDTIME Qty: 60 6RF Hold Instructions: Doctor's Order Linzess 290 mcg capsule 290 mcg PO QAM 30 Days Qty: 30 6RF Fiber Therapy (m-cellulose) 500 mg tablet 1,000 mg PO TID Qty: 180 5RF metoclopramide HCl 5 mg tablet 5 mg PO TID Qty: 90 1RF simethicone 180 mg capsule 180 mg PO TID Qty: 90 6RF docusate sodium 100 mg capsule 100 mg PO BID Qty: 60 6RF bisacodyl [Dulcolax (bisacodyl)] 5 mg tablet,delayed release (DR/EC) See Rx Instructions PO BEDTIME 30 Days Qty: 90 6RF Rx Instructions: 2 tabs qhs and 1 qam PO bedtime; Interventions: ED Discharge Assessment Last Done: 10/26/23 23:33 Discharge Date/Time: 10/26/23 22:30 Print Language: [place]
[2023-10-26 14:46] LABS: MANUAL DIFF FLAG NO
[2023-10-26 14:49] LABS: Appearance Urine Clear; Color Urine Yellow; Glucose Urine UA >=1000 mg/dL (Negative); Leukocyte Esterase Urine Negative (Negative); Nitrite Urine Negative (Negative); PH 5.5 (5.0-9.0); Specific Gravity - Urine 1.015 (1.005-1.025); UMIC TRIGGER UACC YES; Urine Blood Negative (Negative); Urine Ketones Negative (Negative); Urine Protein Negative (Neg-Trace)
[2023-10-26 14:50] LABS: Hematocrit 45.4 % (42.0-52.0); Hemoglobin 16.1 g/dl (14.0-18.0); Imm Gran Abs Auto 0.03 X10*3/uL (0.00-0.03); Imm Gran Pct Auto 0.5 % (0.0-0.4); Lymphocytes Absolute Auto 1.5 X10*3/uL (1.2-4.9); Lymphocytes Percent Auto 22.6 % (20-40); Mean Corpuscular HGB Conc 35.5 g/dl (31.0-36.0); Mean Corpuscular Hemoglobin 29.2 pg (27.0-33.0); Mean Corpuscular Volume 82.4 fL (80.0-98.0); Monocytes Absolute Auto 0.5 X10*3/uL (0.1-1.2); Neutrophils Absolute Auto 4.6 x10*3/uL (2.0-8.3); Neutrophils Percent Auto 68.9 % (45-73); Platelet Count 116 X10*3/uL (160-400); Red Blood Count 5.51 X10*6/uL (4.60-5.80); Red Cell Distribution Width 12.9 % (11.0-16.0); White Blood Count 6.7 X10*3/uL (4.8-10.8)
[2023-10-26 14:51] LABS: Bacteria Urine None Seen (None Seen); Hyaline Casts Urine 0-2 /LPF (0-2); RBC Urine 0-2 /HPF (0-2); Squamous Epithelial Cell Urine 0-2 /HPF (0-2); WBC Urine 0-5 /HPF (0-5)
[2023-10-26 15:04] LABS: Alanine Aminotransferase 65 U/L (0-40); Albumin Level 4.5 g/dL (3.5-5.0); Alkaline Phosphatase 143 U/L (39-117); Anion Gap 15 (12-20); Aspartate Amino Transferase 29 U/L (5-37); Bilirubin Total 0.6 mg/dL (0.0-1.0); Blood Urea Nitrogen 24 mg/dL (9-16); Calcium 9.7 mg/dL (8.4-10.2); Carbon Dioxide 22 mmol/L (22-29); Chloride 108 mmol/L (96-108); Creatinine Clr Calc Pharmacy -1.7; Estimated Glomerular Filt Rate 59; Glucose Random 164 mg/dL (60-115); Magnesium 2.3 mg/dL (1.6-2.6); Potassium 4.1 mmol/L (3.3-5.1); Sodium 141 mmol/L (135-145); Total Protein 7.7 g/dL (6.5-8.0)
[2023-10-26 16:55] VITALS: BP 128/90; PULSE 82; RESP 18; TEMP 37; O2SAT 98
[2023-10-26 19:11] VITALS: BP 133/90; PULSE 86; RESP 18; TEMP 36; O2SAT 100
[2023-10-26 20:00] VITALS: BP 112/79; PULSE 78; RESP 16; TEMP 36.5; O2SAT 98
[2023-10-26] MEDS: Ketorolac Tromethamine 60 MG/2 ML VIAL IM (22:13)
[2023-10-26 23:33] VITALS: BP 112/79; PULSE 78; RESP 16; TEMP 36.5; O2SAT 98
== END 2023-10-26 22:30 | disposition home or self-care (01) ==
PROVIDERS: Physician Assistant; Emergency Provider Emergency Medicine; PCP Internal Medicine
DX: G47.33 Obstructive sleep apnea (adult) (pediatric) (principal); R53.83 Other fatigue; M54.50 Low back pain, unspecified; M25.552 Pain in left hip; M25.551 Pain in right hip; M79.10 Myalgia, unspecified site; Z79.899 Other long term (current) drug therapy
CPT/HCPCS: 36415; 73502; 80053; 81001; 83735; 85025; 96372; 99283; 99284; J1885

== ENCOUNTER 2023-11-08 12:09 | Outpatient (AMB) | payer OTHER, SELFPAY ==
[2023-11-08 12:42] VITALS: BP 128/70; PULSE 87; TEMP 36.5; O2SAT 98; BMI 35.9
--- NOTE | 2023-11-08 12:42 | AM.OFFWIN_ITS ---
Intake Vital Signs 11/08/23 12:42 Height 6 ft 1 in Weight 272 lb BMI 35.9 BP 128/70 Blood Pressure Location Lt brachial Position Sitting Pulse 87 Pulse Source Pulse Oximeter Temp 97.7 F Temp Source Temporal Artery Scan Pulse Oximetry (%) 98 Oxygen Delivery Method Room Air Intake Visit Reasons: EP RT ankle/heel injury Intake Note: pt is here today for rt ankle and heel injury 3 weeks ago Patient Tobacco Use Status: Former Tobacco user Allergies No Known Allergies [No Known Allergies*] Allergy (Verified 11/08/23 12:45) Do you need a note to return to daycare/school/sports/work: No HPI HPI Comments History of Present Illness Details 2 weeks R heel/ankle has been painful Intermittent pain He said worse with ambulation No known injury He denies ice but has rested and tried ibuprofen PFSH Medical History Colon cancer screening COVID-19 Pre-op examination Elevated LFTs Encounter for Medicare annual wellness exam Bowel obstruction Melena Knee pain, bilateral Gastroenteritis Healed wound Chronic idiopathic constipation Chronic idiopathic constipation Right hand pain Hospital discharge follow-up Knee osteoarthritis Pain in both feet Obesity (BMI 30-39.9) Schizoaffective disorder Pure hypercholesterolemia Benign essential hypertension Chronic kidney disease (CKD), stage III (moderate) Type 2 diabetes mellitus with diabetic chronic kidney disease Morbid obesity Dyslipidemia 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 mellitus 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 Diabetic polyneuropathy associated with 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 mellitus Schizo affective schizophrenia Diabetes type 2, uncontrolled Surgical History History of repair of congenital cleft palate Hx of circumcision Family History Father HTN (hypertension) Mother Diabetes Other Mental health problem Social History Household Members: None Housing: Apartment Are you a primary clinical care manager to a significant other at home: No Do you presently have visiting nurse or other home services: Yes Alcohol intake: former Patient Tobacco Use Status: Former Tobacco user Tobacco use type: Cigarette Cigarettes Per Day: 15 Years Smoked: 8 quit 30 years ago e-Cigarette/Vaping Use: Never Used Second Hand Smoke Exposure: No service: No Current occupational status: employed Current occupation: [employer] Cognitive needs: No Hearing needs: No Vision needs: Yes (glasses) Review of Systems Const Denies chills and Denies fever(s) Card Denies chest pain Resp Denies cough Musc Reports deformity and Reports arthralgias Skin/Breast Denies erythema and Denies rash Physical Exam Vital Signs: Last Vital Signs Temp 97.7 F 11/08/23 12:42 Pulse 87 11/08/23 12:42 BP 128/70 11/08/23 12:42 Pulse Ox 98 11/08/23 12:42 Oxygen Delivery Method Room Air 11/08/23 12:42 BMI result Body Mass Index 35.9 General: Non-toxic, NAD. Speaking full sentences. Skin: Warm dry throughout. R achilles with slight edema without erythema, ecchymosis, FB or lesions Eye: EOMI Respiratory: No respiratory distress Cardiac: DP pulse intact RLE. No calf tenderness or pedal edema MSK: + tenderness to palpation R acilles tendon and posterior calcaneus. Neurology: A. No aphasia or facial droop. Gait without abnormality Psych: Good mood and affect Assessment & Plan Assessment & Plan (1) Achilles tendinitis: Code(s): M76.60 - Achilles tendinitis, unspecified leg Qualifiers: Laterality: right Qualified Code(s): M76.61 - Achilles tendinitis, right leg Plan: Patient seen and evaluated. Xray R calcaneus: + spur without fx Rest, ice, elevate Offered podiatry referral but he declined Ibuprofen only prn Patient gave verbal understanding and had no additional questions or concerns at time of discharge All questions answered (2) Calcaneal spur: Code(s): M77.30 - Calcaneal spur, unspecified foot Qualifiers: Laterality: right Qualified Code(s): M77.31 - Calcaneal spur, right foot Plan: see above Orders: Orders XR calcaneus RT min 2V Today M76.60 - Achilles tendinitis, unspecified leg Coding Level of Care Code Est Pt Level 3 (65612) Diagnoses Achilles tendinitis of right lower extremity M76.61 Laterality: right Calcaneal spur of right foot M77.31 Laterality: right
== END 2023-11-08 13:37 | disposition home or self-care (01) ==
PROVIDERS: PCP Internal Medicine; Visit Provider Physician Assistant
DX: M76.61 Achilles tendinitis, right leg (principal); M77.31 Calcaneal spur, right foot
CPT/HCPCS: 99213

== ENCOUNTER 2023-11-08 13:08 | Outpatient (REF) | payer OTHER, SELFPAY ==
--- NOTE | ~2023-11-08 | XR_ITS ---
EXAMINATION: XR CALCANEUS, RIGHT CLINICAL INFORMATION: Achilles tendinitis COMPARISON: Previous right foot x-ray June 2020 TECHNIQUE: Lateral and axial views of the right calcaneus were obtained. FINDINGS: Bone alignment is normal. No fracture or dislocation. Normal joint bases. Large calcaneal spurs at the Achilles tendon insertion and plantar surface. Atherosclerotic disease. XR/XR calcaneus RT min 2V IMPRESSION: Large calcaneal spurs.
== END 2023-11-08 13:09 | disposition home or self-care (01) ==
LOC: HO.HMGCX 13:08
PROVIDERS: PCP Internal Medicine; Visit Provider Physician Assistant
DX: M76.61 Achilles tendinitis, right leg (principal)
CPT/HCPCS: 73650

== ENCOUNTER 2023-11-14 08:42 | Outpatient (REF) | payer OTHER, SELFPAY ==
[2023-11-14 09:10] LABS: MANUAL DIFF FLAG NO
[2023-11-14 10:06] LABS: Hematocrit 46.6 % (42.0-52.0); Hemoglobin 16.4 g/dl (14.0-18.0); Imm Gran Abs Auto 0.03 X10*3/uL (0.00-0.03); Imm Gran Pct Auto 0.5 % (0.0-0.4); Lymphocytes Absolute Auto 1.3 X10*3/uL (1.2-4.9); Lymphocytes Percent Auto 21.2 % (20-40); Mean Corpuscular HGB Conc 35.2 g/dl (31.0-36.0); Mean Corpuscular Hemoglobin 29.9 pg (27.0-33.0); Mean Corpuscular Volume 84.9 fL (80.0-98.0); Mean Platelet Volume 10.4 fL (9.4-12.4); Monocytes Absolute Auto 0.3 X10*3/uL (0.1-1.2); Monocytes Percent Auto 5.2 % (2-11); Neutrophils Absolute Auto 4.5 x10*3/uL (2.0-8.3); Neutrophils Percent Auto 73.1 % (45-73); Platelet Count 105 X10*3/uL (160-400); Red Blood Count 5.49 X10*6/uL (4.60-5.80); Red Cell Distribution Width 12.9 % (11.0-16.0); White Blood Count 6.1 X10*3/uL (4.8-10.8)
[2023-11-14 10:14] LABS: Appearance Urine Clear; Color Urine Yellow; Glucose Urine UA >=1000 mg/dL (Negative); Leukocyte Esterase Urine Negative (Negative); Nitrite Urine Negative (Negative); PH 5.5 (5.0-9.0); UMIC TRIGGER UACC YES; Urine Blood Negative (Negative); Urine Ketones Negative (Negative); Urine Protein Negative (Neg-Trace)
[2023-11-14 10:21] LABS: Bacteria Urine None Seen (None Seen); Hyaline Casts Urine 0-2 /LPF (0-2); RBC Urine 0-2 /HPF (0-2); Squamous Epithelial Cell Urine 0-2 /HPF (0-2); WBC Urine 0-5 /HPF (0-5)
[2023-11-14 10:29] LABS: Estimated Average Glucose 166 mg/dL; Hemoglobin A1c % 7.4 % (<6.0)
[2023-11-14 10:57] LABS: Creatinine Urine 46.25 mg/dL; Microalbumin Urine < 5.0 mg/L
[2023-11-14 11:08] LABS: Alanine Aminotransferase 66 U/L (0-40); Albumin Level 4.3 g/dL (3.5-5.0); Alkaline Phosphatase 114 U/L (39-117); Anion Gap 15 (12-20); Aspartate Amino Transferase 30 U/L (5-37); Bilirubin Total 0.5 mg/dL (0.0-1.0); Blood Urea Nitrogen 24 mg/dL (9-16); Calcium 9.6 mg/dL (8.4-10.2); Carbon Dioxide 23 mmol/L (22-29); Chloride 108 mmol/L (96-108); Cholesterol 149 mg/dL (<200); Estimated Glomerular Filt Rate 58; Glucose Fasting 182 mg/dL (60-99); HDL Cholesterol 33 mg/dL (>40); LDL Cholesterol Calculated 65 mg/dL (<100); Potassium 4.1 mmol/L (3.3-5.1); Sodium 142 mmol/L (135-145); TSH reflex Free T4 2.95 uIU/mL (0.32-4.0); Total Protein 7.3 g/dL (6.5-8.0); Triglycerides 258 mg/dL (<150); Vitamin D 25-OH Total 39.4 ng/mL (>30)
[2023-11-14 12:10] LABS: Folate 7.7 ng/mL (> or = 4.0); Vitamin B12 739 pg/mL (200-900)
== END 2023-11-14 08:43 | disposition home or self-care (01) ==
LOC: HO.LAB 08:42
PROVIDERS: PCP Internal Medicine; Visit Provider Internal Medicine
DX: E11.9 Type 2 diabetes mellitus without complications (principal); D64.9 Anemia, unspecified; E78.00 Pure hypercholesterolemia, unspecified; E53.8 Deficiency of other specified B group vitamins; E55.9 Vitamin D deficiency, unspecified
CPT/HCPCS: 36415; 80053; 80061; 81001; 81003; 82043; 82306; 82570; 82607; 82746; 83036; 84443; 85025

== ENCOUNTER 2023-11-22 07:44 | Outpatient (REF) | payer OTHER, SELFPAY ==
[2023-11-22 08:08] LABS: MANUAL DIFF FLAG NO
[2023-11-22 09:31] LABS: Basophils Percent Auto 0.2 % (0-2); Hematocrit 44.6 % (42.0-52.0); Hemoglobin 15.7 g/dl (14.0-18.0); Imm Gran Abs Auto 0.03 X10*3/uL (0.00-0.03); Imm Gran Pct Auto 0.5 % (0.0-0.4); Lymphocytes Absolute Auto 1.3 X10*3/uL (1.2-4.9); Lymphocytes Percent Auto 23.2 % (20-40); Mean Corpuscular HGB Conc 35.2 g/dl (31.0-36.0); Mean Corpuscular Hemoglobin 29.8 pg (27.0-33.0); Mean Corpuscular Volume 84.6 fL (80.0-98.0); Mean Platelet Volume 10.6 fL (9.4-12.4); Monocytes Absolute Auto 0.4 X10*3/uL (0.1-1.2); Monocytes Percent Auto 7.4 % (2-11); Neutrophils Absolute Auto 3.9 x10*3/uL (2.0-8.3); Neutrophils Percent Auto 68.7 % (45-73); Platelet Count 111 X10*3/uL (160-400); Red Blood Count 5.27 X10*6/uL (4.60-5.80); White Blood Count 5.6 X10*3/uL (4.8-10.8)
== END 2023-11-22 07:45 | disposition home or self-care (01) ==
LOC: HO.LABR 07:44
PROVIDERS: PCP Internal Medicine; Visit Provider Psychiatry & Neurology Psychiatry
DX: F25.0 Schizoaffective disorder, bipolar type (principal); Z79.899 Other long term (current) drug therapy
CPT/HCPCS: 36415; 85025

== ENCOUNTER 2023-12-01 10:09 | Outpatient (AMB) | payer OTHER, SELFPAY ==
[2023-12-01 10:22] VITALS: BP 108/74; PULSE 76; O2SAT 97; BMI 35.2
--- NOTE | 2023-12-01 10:22 | A.OFFPC_ITS ---
Vital Signs 12/01/23 10:22 Height 6 ft 1 in Weight 267 lb 0.4 oz BMI 35.2 BP 108/74 Blood Pressure Location Lt brachial Position Sitting Pulse 76 Pulse Source Pulse Oximeter Pulse Oximetry (%) 97 Oxygen Delivery Method Room Air Intake Visit Reasons: 3 month f/u Representative Personal Service Required: No Allergies No Known Allergies [No Known Allergies*] Allergy (Verified 12/01/23 11:07) Medication List - Last Reconciled 12/01/23 by Luis Manuel Garcia MD acetaminophen 500 mg PO Q6H PRN atorvastatin 10 mg PO DAILY benztropine 0.5 mg PO BID bisacodyl (Laxative (bisacodyl)) mg PO bisacodyl 10 mg (2 x 5 mg) PO BID blood sugar diagnostic (FreeStyle Lite Strips) Tests 5X/day blood-glucose meter (FreeStyle Lite Meter kit) Tests 4 X/day blood-glucose meter (FreeStyle Lite Meter kit) As directed carbamide peroxide 6.5% (Debrox) 5 drps otic (ear) right Q12H 5 days cholecalciferol (vitamin D3) 25 mcg PO DAILY clozapine 100 mg PO TID cyclobenzaprine 10 mg PO TID PRN docusate sodium 100 mg PO BID empagliflozin (Jardiance) 25 mg PO QAM flash glucose scanning reader (FreeStyle Jody 2 Bucks) As directed furosemide 20 mg PO DAILY gabapentin 300 mg PO BEDTIME 90 days hydroxyzine pamoate 50 mg PO TID PRN ibuprofen 800 mg PO Q8H PRN 30 days L.acidoph, paracasei,B. lactis (Digestive Advantage Advanced Probiotic) cells PO lancets (FreeStyle Lancets) Tests 5x/day linaclotide (Linzess) 290 mcg PO QAM 30 days magnesium hydroxide (Milk Of Magnesia Concentrated) 10 mL PO BEDTIME PRN magnesium hydroxide (Milk of Magnesia) 10 mL PO BEDTIME metformin 1,000 mg (2 x 500 mg) PO BID 90 days methylcellulose (laxative) (Fiber Therapy (methylcellulose)) 1,000 mg (2 x 500 mg) PO TID metoclopramide HCl 5 mg PO TID pen needle, diabetic (BD Ultra-Fine Original Pen Needle) As directed daily phenol-glycerin 1.5-33 % (Chloraseptic Max Sore Throat) 1 spray mucous membrane Q6-8H PRN polyethylene glycol 3350 (Miralax) 17 grams PO BID sennosides (senna) 17.2 mg (2 x 8.6 mg) PO BEDTIME sildenafil 50 mg PO DAILY PRN simethicone 180 mg PO TID Tresiba FlexTouch U-200 (insulin degludec) 30 units (0.15 mL) subcut DAILY 90 days NS Tobacco use date assessed: 12/01/23 Dental Screening Dental Screen Date: 12/01/23 Did you have a dental visit in the last 12 months?: No Did you have a dental problem in the last 6 months where you did not have access to dental care?: No HPI 3 month f/u HPI Details Patient comes in today for his follow up visit States that he continues to experience increased pain over his right heel States that he has not yet heard back from anyone regarding his referral to podiatry and is wondering if the referral has been placed already or not States that he feels okay otherwise He denies any headaches or dizziness Denies any chest pains, no SOB No nausea/vomiting, no abdominal pain No change in bowel habits noted - still has frequent constipation and he continues to follow up with GI for this issue Had his follow up labs done a couple of weeks ago - to discuss his results [facility] Medical History Colon cancer screening COVID-19 Pre-op examination Elevated LFTs Encounter for Medicare annual wellness exam Bowel obstruction Melena Knee pain, bilateral Gastroenteritis Healed wound Chronic idiopathic constipation Chronic idiopathic constipation Right hand pain Hospital discharge follow-up Knee osteoarthritis Pain in both feet Obesity (BMI 30-39.9) Schizoaffective disorder Pure hypercholesterolemia Benign essential hypertension Chronic kidney disease (CKD), stage III (moderate) Type 2 diabetes mellitus with diabetic chronic kidney disease Morbid obesity Dyslipidemia 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 mellitus snf (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 Diabetic polyneuropathy associated with 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 mellitus Schizo affective schizophrenia Diabetes type 2, uncontrolled Surgical History History of repair of congenital cleft palate Hx of circumcision Family History Father HTN (hypertension) Mother Diabetes Other Mental health problem Social History Household Members: None Housing: Apartment Are you a primary pet caretaker to a significant other at home: No Do you presently have visiting nurse or other home services: Yes Alcohol intake: former Patient Tobacco Use Status: Former Tobacco user Tobacco use type: Cigarette Cigarettes Per Day: 15 Years Smoked: 8 quit 30 years ago e-Cigarette/Vaping Use: Never Used Second Hand Smoke Exposure: No service: No Current occupational status: employed Current occupation: [employer] Cognitive needs: No Hearing needs: No Vision needs: Yes (glasses) Questionnaire PHQ-9 Over the last 2 weeks, how often have you been bothered by any of the following problems? 1. Little interest or pleasure in doing things: several days 2. Feeling down, depressed, or hopeless: several days 3. Trouble falling or staying asleep, or sleeping too much: nearly every day 4. Feeling tired or having little energy: several days 5. Poor appetite or overeating: more than half the days 6. Feeling bad about yourself - or that you are a failure or have let yourself or your family down: not at all 7. Trouble concentrating on things, such as reading the newspaper or watching television: several days 8. Moving or speaking so slowly that other people could have noticed. Or the opposite - being so fidgety or restless that you have been moving around a lot more than usual: not at all 9. Thoughts that you would be better off or of hurting yourself in some way: not at all Total score: 9 Depression Screening Interpretation: Positive Depression Screening Follow-up: Existing condition and In treatment Depression Screening Done: Yes 68904 - PHQ-9 Billing: Yes Source: Developed by Drs. Foster Queen, Shahla Vo, Lambert Sanchez and colleagues, with an educational german from [employer]. Thrive Questionnaire Date Thrive assessed: 12/01/23 I am a: Patient What is your living situation today?: I have a steady place to live Within the past 12 months, did the food you bought not last and you didn't have the money to get more?: Never true Within the past 12 months, did you worry whether your food would run out before you got money to buy more?: Never true Do you have trouble paying for medicines?: No Do you have trouble getting transportation to medical appointments?: No Do you have trouble paying your heating and electricity bill?: No Do you have trouble taking care of your child, family member or friend?: No Do you have trouble with day-to-day activities such as bathing, preparing meals, shopping, managing finances, etc.?: No Are you currently unemployed and looking for a job?: No Are you interested in more education?: No THRIVE Score: 0 AUDIT C Alcohol Use Questionnaire (AUDIT-C) 1. How often do you have a drink containing alcohol?: Never 3. How often do you have six or more drinks on one occasion?: Never Total Score: 0 Score Reviewed/Action Taken: Yes KENDRA-7 AMB Questionnaire KENDRA-7 Date KENDRA - 7 assessed: 09/01/23 Source: Developed by Drs. Foster Queen, Shahla Vo, Lambert Sanchez and colleagues, with an educational german from [employer]. Review of Systems Const Denies chills, Denies fatigue, Denies fever(s) and Denies headache(s) ENT Denies dysphagia, Denies dizziness, Denies otalgia, Denies headache(s), Reports hearing loss (in his right ear recently), Denies neck pain, Denies odynophagia and Denies sore throat Card Denies chest pain, Denies palpitations and Denies dyspnea Resp Denies cough, Denies dyspnea and Denies wheezing GI Denies abdominal pain, Reports constipation (on and off - better controlled lately), Denies dysphagia, Denies heartburn, Reports diarrhea (occasionally; usually when his constipation gets worse), Denies nausea, Denies odynophagia and Denies vomiting Reports erectile dysfunction (states Rx do NOT help much), Denies dysuria, Denies nocturia and Denies urinary frequency Musc Details: (+) pain over his right heel area Reports arthralgias (both knees, on and off) and Denies neck pain Skin/Breast Denies rash Neuro Denies dizziness and Denies headache(s) Endo Denies fatigue and Denies palpitations Aller/Immun Denies wheezing Physical exam (Primary Care) Vital Signs: Last Vital Signs Pulse 76 12/01/23 10:22 BP 108/74 12/01/23 10:22 Pulse Ox 97 12/01/23 10:22 Oxygen Delivery Method Room Air 12/01/23 10:22 BMI result Body Mass Index 35.2 Tobacco/Smoking Status: Tobacco use Status Tobacco use date assessed 12/01/23 12/01/23 10:23 Patient Tobacco Use Status Former Tobacco user 12/01/23 10:23 Tobacco use type Cigarette 12/01/23 10:23 e-Cigarette/Vaping Use Never Used 12/01/23 10:23 Depression Screening Interpretation: Positive Depression Screening Follow-up: Existing condition and In treatment Thrive Assessment: Date of Thrive Assessment Date Thrive assessed 09/01/23 12/01/23 10:23 Const General: no acute distress and alert HENMT Ears: TM normal on the left, EAC's normal (bilaterally but visual of right EAC is limited due to impacted cerumen) and unable to visualize TM on the right (due to excessive cerumen) Throat: Yes posterior oropharynx normal and Yes tonsils normal (no TP congestion noted) Neck Neck: Yes no lymphadenopathy and Yes supple Thyroid: Thyroid normal Resp Auscultation: clear to auscultation bilaterally, no rales and no wheezes Cardio Rate: regular rate Rhythm: regular rhythm Heart sounds: no murmurs GI Palpation (GI): Soft to palpation and nontender Auscultation: normal bowel sounds General: Yes no CVA tenderness Back/Spine/Pelvis Back: no CVA tenderness Cervical Spine: No Cervical spine tenderness Thoracic/Lumbar Spine: No lumbar spinal tenderness Skin Rashes: no rashes Extrem General: Yes no clubbing, cyanosis or edema Right lower extremity: knee Details: tenderness; no swelling and foot Details: tenderness Location: of the calcaneus Details: point tenderness Left lower extremity: knee Details: tenderness; no swelling Results Reviewed Results Reviewed: Laboratory Tests 11/14/23 11/14/23 11/22/23 08:47 09:04 08:07 WBC 5.6 Hgb 15.7 Hct 44.6 Plt Count 111 L Sodium 142 Potassium 4.1 Creatinine 1.27 Estimated GFR 58 Fasting Glucose 182 H Hemoglobin A1c % 7.4 H Calcium 9.6 AST 30 ALT 66 H Triglycerides 258 H Cholesterol 149 LDL Cholesterol, Calc 65 HDL Cholesterol 33 L Vitamin B12 739 25-OH Vitamin D Total 39.4 TSH 2.95 Ur Specific [place] 1.020 Urine Protein Negative Urine Glucose (UA) >=1000 H Urine Blood Negative Urine Nitrite Negative Ur Leukocyte Esterase Negative Assessment and Plan Assessment & Plan (1) Pure hypercholesterolemia: Code(s): E78.00 - Pure hypercholesterolemia, unspecified Plan: Results of his labs done a couple of weeks ago reviewed and discussed with patient - advised that his serum triglyceride level is still elevated and is most likely due to his higher than recommended blood sugar and his weight and recent diet Reinforced low cholesterol diet Continue Atorvastatin 10 mg QD Will recheck his labs and fasting lipids in 3 months for follow up (2) Benign essential hypertension: Code(s): I10 - Essential (primary) hypertension Plan: Reinforced low-sodium diet - goal is systolic BP of at least 120 to 130 mm or less Continue Furosemide 20 mg QD (3) Type 2 diabetes mellitus with diabetic chronic kidney disease: Code(s): E11.22 - Type 2 diabetes mellitus with diabetic chronic kidney disease Qualifiers: Diabetes mellitus residential insulin use: with residential use Chronic kidney disease stage: stage 3 (moderate) Chronic kidney disease stage 3 subtype: unspecified whether 3a or 3b Qualified Code(s): E11.22 - Type 2 diabetes mellitus with diabetic chronic kidney disease; N18.30 - Chronic kidney disease, stage 3 unspecified; 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 Plan: HgbA1c was at 7.4% on his labs done a couple of weeks ago (was 7.1% previously on 07/12/2023 and 6.8% prior to that) - goal is < 7.0% Have cautioned patient that his HgbA1c has been steadily creeping up over the past year - he admits to poor compliance with his diet Reinforced diabetic diet Continue Metformin 500 mg 2 tablets BID, Jardiance 25 mg QD and Tresiba 30 units QD for now Follow-up with endocrinology as scheduled Will recheck his FBS and HgbA1c in 3 months for follow up (4) Chronic kidney disease (CKD), stage III (moderate): Code(s): N18.30 - Chronic kidney disease, stage 3 unspecified Qualifiers: Chronic kidney disease stage 3 subtype: unspecified whether 3a or 3b Qualified Code(s): N18.30 - Chronic kidney disease, stage 3 unspecified Plan: His renal function appeared stable on his recent labs Will continue to monitor his renal function closely/regularly (5) Chronic idiopathic constipation: Code(s): K59.04 - Chronic idiopathic constipation Plan: Patient is again encouraged to increase his oral fluids and dietary fiber and to continue taking Linzess 290 mcg QD, Docusate 100 mg BID PRN, Miralax 17 gm QD, MOM at bedtime PRN and Fiber Therapy 1000 mg TID Follow-up with GI as scheduled for continuing management of his chronic constipation He was scheduled for colonoscopy with Dr. Ponce on 03/17/23 but the procedure was cancelled as it appears that he could not do the prep for the procedure properly He has not yet been rescheduled for this (6) Calcaneal spur of right foot: Code(s): M77.31 - Calcaneal spur, right foot Plan: X-rays of his right foot done 3 weeks ago (October 2023) revealed (+) large calcaneal spurs Advised that a referral to podiatry was already placed for him 2 weeks ago but patient states that he has not yet heard back from anyone about scheduling an appointment Will have him follow this up on this with the office staff when he checks out (7) Erectile dysfunction: Code(s): N52.9 - Male erectile dysfunction, unspecified Qualifiers: Erectile dysfunction type: unspecified Qualified Code(s): N52.9 - Male erectile dysfunction, unspecified Plan: Patient feels that all of the Rx prescribed for him so far have not helped Reminded that at one point, he was prescribed a vaccum device by Dr. Arguello a few years ago He is advised to follow up with urology as scheduled for this issue (8) Schizoaffective disorder: Code(s): F25.9 - Schizoaffective disorder, unspecified Qualifiers: Schizoaffective disorder type: unspecified Qualified Code(s): F25.9 - Schizoaffective disorder, unspecified Plan: Continue Clozapine 100 mg 3 tablets daily at bedtime and Benztropine 0.5 mg BID Follow-up with Psychiatry at [facility] as scheduled (9) Obesity (BMI 30-39.9): Code(s): E66.9 - Obesity, unspecified Plan: Reinforced diet/exercise as tolerated/lose weight Plan Follow up in 3 months Orders: Orders Complete Blood Count Auto Diff 3 Months D64.9 - Anemia, unspecified Comprehensive [place]. Panel Fast 3 Months E78.00 - Pure hypercholesterolemia, unspecified Lipid Panel 3 Months E78.00 - Pure hypercholesterolemia, unspecified Microalbumin, Random (w Creat) 3 Months E11.9 - Type 2 diabetes mellitus without complications UA CC w/rflx Micro + Cult 3 Months R30.0 - Dysuria Hemoglobin A1c 3 Months E11.9 - Type 2 diabetes mellitus without complications TSH reflex Free T4 3 Months E78.00 - Pure hypercholesterolemia, unspecified Vitamin D 25-OH Total 3 Months E55.9 - Vitamin D deficiency, unspecified Coding Level of Care Code Est Pt Level 4 (41980) Diagnoses Pure hypercholesterolemia E78.00 Benign essential hypertension I10 Type 2 diabetes mellitus with stage 3 chronic kidney disease, with long-term current use of insulin, unspecified whether stage 3a or 3b CKD E11.22; N18.30; Z79.4 Diabetes mellitus residential insulin use: with continuous churn buttermaker use Chronic kidney disease stage: stage 3 (moderate) Chronic kidney disease stage 3 subtype: unspecified whether 3a or 3b Stage 3 chronic kidney disease, unspecified whether stage 3a or 3b CKD N18.30 Chronic kidney disease stage 3 subtype: unspecified whether 3a or 3b Chronic idiopathic constipation K59.04 Calcaneal spur of right foot M77.31 Erectile dysfunction, unspecified erectile dysfunction type N52.9 Erectile dysfunction type: unspecified Schizoaffective disorder, unspecified type F25.9 Schizoaffective disorder type: unspecified Obesity (BMI 30-39.9) E66.9
== END 2023-12-01 11:27 | disposition home or self-care (01) ==
PROVIDERS: PCP Internal Medicine; Visit Provider Internal Medicine
DX: I12.9 Hypertensive chronic kidney disease with stage 1 through stage 4 chronic kidney disease, or unspecified chronic kidney disease (principal); E11.22 Type 2 diabetes mellitus with diabetic chronic kidney disease; N18.30 Chronic kidney disease, stage 3 unspecified; Z79.4 Long term (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; F25.9 Schizoaffective disorder, unspecified; E78.00 Pure hypercholesterolemia, unspecified; K59.04 Chronic idiopathic constipation; M77.31 Calcaneal spur, right foot; N52.9 Male erectile dysfunction, unspecified; E66.9 Obesity, unspecified
CPT/HCPCS: 99214

== ENCOUNTER 2023-12-13 17:46 | Emergency (ER) | payer OTHER, SELFPAY ==
[2023-12-13 18:02] VITALS: BP 144/84; PULSE 85; RESP 18; TEMP 36; O2SAT 98; BMI 35.0
--- NOTE | 2023-12-13 18:02 | ED.GENADULT ---
HPI - General Adult General Chief complaint: General Medical Stated complaint: diabetic, high blood sugar Time Seen by Provider: 12/13/23 21:36 Source: patient Mode of arrival: ambulatory Limitations: no limitations History of Present Illness HPI narrative: Patient is a 63-year-old male who presents emergency department for evaluation of hyperglycemia. He reports for the past couple of months there are days where he has ?high? blood glucose readings in the morning upon wakening. At times he feels tired when his sugars are reading high and unable to go to work so he ends up staying home. Reports after about 4 or 5 hours of remaining home or resting or even when he goes to work his sugars do improve. He states he has been compliant with his medications as prescribed by his doctor. He denies any new changes to his diet. He has not yet spoken to his primary care doctor about this. Reports that he checked his reading earlier today before coming to the emergency department and it was 460 Related Data Home Medications ?Medication ?Instructions ?Recorded ?Confirmed hydroxyzine pamoate 50 mg capsule 50 mg PO TID PRN Anxiety 09/18/20 12/01/23 benztropine 0.5 mg tablet 0.5 mg PO BID 04/29/22 12/01/23 L.acidoph, paracasei,B. lactis 10 cell PO 05/12/22 12/01/23 billion cell capsule (Digestive Advantage Advanced Probiotic) clozapine 100 mg tablet 100 mg PO TID 05/12/22 12/01/23 bisacodyl 5 mg tablet (Laxative mg PO 11/08/23 12/01/23 (bisacodyl)) magnesium hydroxide 2,400 mg/10 mL 10 ml PO BEDTIME PRN 11/08/23 12/01/23 oral suspension (Milk Of Magnesia Concentrated) Previous Rx's ?Medication ?Instructions ?Recorded sildenafil 50 mg tablet 50 mg PO DAILY PRN sexual activity 08/11/22 #10 tabs polyethylene glycol 3350 17 gram 17 g PO BID #30 ea 08/12/22 oral powder packet (Miralax) cholecalciferol (vitamin D3) 25 25 mcg PO DAILY #90 caps 11/03/22 mcg (1,000 unit) capsule sennosides 8.6 mg tablet (senna) 17.2 mg (2 x 8.6 mg) PO BEDTIME 07/14/23 for constipation #60 tabs blood-glucose meter (FreeStyle #1 ea 03/27/23 Lite Meter kit) flash glucose scanning reader #1 ea 04/10/23 (FreeStyle Jody 2 [place]) pen needle, diabetic 29 gauge x #100 ea 05/12/23 1/2 (BD Ultra-Fine Original Pen Needle) magnesium hydroxide 400 mg/5 mL 10 ml PO BEDTIME #3,780 mL 06/07/23 oral suspension (Milk of Magnesia) blood sugar diagnostic (FreeStyle #100 ea 06/21/23 Lite Strips) Tresiba FlexTouch U-200 200 30 unit (0.15 mL) subcut DAILY 90 07/03/23 unit/mL (3 mL) subcutaneous pen days #9 mL (insulin degludec) carbamide peroxide 6.5 % ear drops 5 drp otic (ear) right Q12H 09/01/23 (Debrox) impacted cerumen in right ear 5 days #15 mL ibuprofen 800 mg tablet 800 mg PO Q8H PRN for pain 30 days 09/01/23 #90 tabs phenol 1.5 %-glycerin 33 % mucosal 1 spray mucous membrane Q6-8H PRN 09/03/23 spray (Chloraseptic Max Sore sore throat #118 mL Throat) lancets 28 gauge (FreeStyle #100 ea 09/14/23 Lancets) atorvastatin 10 mg tablet 10 mg PO DAILY #90 tabs 09/26/23 empagliflozin 25 mg tablet 25 mg PO QAM #30 tabs 10/11/23 (Jardiance) docusate sodium 100 mg capsule 100 mg PO BID #60 caps 10/19/23 linaclotide 290 mcg capsule 290 mcg PO QAM 30 days #30 caps 10/19/23 (Linzess) methylcellulose (laxative) 500 mg 1,000 mg (2 x 500 mg) PO TID #180 10/19/23 tablet (Fiber Therapy tabs (methylcellulose)) metoclopramide HCl 5 mg tablet 5 mg PO TID #90 tabs 10/19/23 simethicone 180 mg capsule 180 mg PO TID #90 caps 10/19/23 blood-glucose meter (FreeStyle #1 ea 10/20/23 Lite Meter kit) acetaminophen 500 mg tablet 500 mg PO Q6H PRN fever or pain 10/26/23 #20 tabs cyclobenzaprine 10 mg tablet 10 mg PO TID PRN muscle spasm #10 10/26/23 tabs metformin 500 mg tablet 1,000 mg (2 x 500 mg) PO BID 90 11/01/23 days #360 tabs gabapentin 300 mg capsule 300 mg PO BEDTIME 90 days #90 caps 11/03/23 furosemide 20 mg tablet 20 mg PO DAILY #90 tabs 11/21/23 bisacodyl 5 mg tablet,delayed 10 mg (2 x 5 mg) PO BID #90 tabs 11/24/23 release Allergies Allergy/AdvReac Type Severity Reaction Status Date / Time No Known Allergies Allergy Verified 12/13/23 18:04 [No Known Allergies*] Review of Systems Review of Systems: Yes all other systems are reviewed and are negative [facility] Past Medical History Attestation statement: The following information was validated with the patient. Source: old records reviewed Medical History Colon cancer screening COVID-19 Pre-op examination Elevated LFTs Encounter for Medicare annual wellness exam Bowel obstruction Melena Knee pain, bilateral Gastroenteritis Healed wound Chronic idiopathic constipation Chronic idiopathic constipation Right hand pain Hospital discharge follow-up Knee osteoarthritis Pain in both feet Obesity (BMI 30-39.9) Schizoaffective disorder Pure hypercholesterolemia Benign essential hypertension Chronic kidney disease (CKD), stage III (moderate) Type 2 diabetes mellitus with diabetic chronic kidney disease Morbid obesity Dyslipidemia 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 mellitus 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 Diabetic polyneuropathy associated with 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 mellitus Schizo affective schizophrenia Diabetes type 2, uncontrolled Surgical History History of repair of congenital cleft palate Hx of circumcision Family History Family History Father HTN (hypertension) Mother Diabetes Other Mental health problem Social History Social History Household Members: None Housing: Apartment Are you a primary animal care technician to a significant other at home: No Do you presently have visiting nurse or other home services: Yes Alcohol intake: former Patient Tobacco Use Status: Former Tobacco user Tobacco use type: Cigarette Cigarettes Per Day: 15 Years Smoked: 8 quit 30 years ago Smoked in Last 30 Days: No e-Cigarette/Vaping Use: Never Used Second Hand Smoke Exposure: No Use of substances other than those prescribed or required for medical reasons: No Advance Directives: No Advance Directives Information Provided: No Do you have a plan to hurt others: No Plan service: No Current occupational status: employed Current occupation: [employer] Cognitive needs: No Hearing needs: No Vision needs: Yes (glasses) Physical Exam ED Vital Signs: Vital Signs - 24 hr 12/13/23 18:02 Temperature 96.8 F Pulse Rate 85 Respiratory Rate 18 Blood Pressure 144/84 H Pulse Oximetry 98 Oxygen Delivery Method Room Air BMI result Body Mass Index 35.0 Appearance: Alert.?Oriented to person, place and time. No acute distress.?Normal affect. Eyes: Pupils equal, round and reactive to light.? ENT: Pharynx normal.?? Neck: Normal inspection.? Neck supple.?? CVS: Heart sounds normal. Normal heart rate and rhythm.? Pulses normal.?? Respiratory: No respiratory distress.? Lung sounds clear to auscultation bilaterally?? Abdomen: Soft and non-tender. Normoactive bowel sounds. Skin: Skin warm and dry.? Normal skin color.? ? Extremities: No lower extremity edema.? Neuro: Moves all extremities spontaneously. Sensation intact bilaterally. CN II-XII intact. No focal neuro deficits. Ambulates with normal steady gait. Course Course Course Narrative: RME- 63-year-old male past medical history significant for diabetes presents for evaluation of elevated glucose over the last 4-5 days. Plan for labs including beta hydroxybutyrate Medical Decision Making Medical Decision Making MDM Narrative: Patient is a 63-year-old male with past medical history of constipation, arthritis, obesity, schizophrenia, hypercholesterolemia, hypertension, CKD, 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 presenting to emergency department for evaluation of elevated blood glucose readings over the past few months particularly in the morning and associated fatigue during these times. He states he was once told by a nurse that he should go to emergency department if his blood glucose level is over 200. He has not yet spoken to his primary care doctor about this. I reviewed labs obtained prior to my assumption of care; CBC is without leukocytosis or anemia, chronic thrombocytopenia is present. No electrolyte derangement. Renal function is at baseline. Non-anion gap hyperglycemia, with random glucose of 236. Transaminases are at baseline. Lipase within normal range. At this time no evidence of DKA. His examination is benign. I did discuss with patient following up with his primary care provider to have discussion about changes to his current regimen. He was also instructed to keep a log of his blood glucose readings in accordance with the last time that he consumed something to eat and he verbalizes understanding of this. At this time feel that he is stable for discharge and outpatient follow-up with his primary care provider. Discussed strict return precautions. Differential Diagnosis Differential Diagnoses: The differential diagnosis associated with the presentation includes (See narrative above) Admission/Observation Consideration of admission/observation: Escalation of care including admission/observation considered (See narrative above) Lab Data MDM Lab Attestation statement: I reviewed the patient's lab results. (See narrative above) 12/13/23 18:18 12/13/23 18:18 Labs: Lab Results 12/13/23 Range/Units 18:18 WBC 7.2 (4.8-10.8) X10*3/uL RBC 5.03 (4.60-5.80) X10*6/uL Hgb 15.3 (14.0-18.0) g/dl Hct 42.3 (42.0-52.0) % MCV 84.1 (80.0-98.0) fL MCH 30.4 (27.0-33.0) pg MCHC 36.2 H (31.0-36.0) g/dl RDW 12.9 (11.0-16.0) % Plt Count 114 L (160-400) X10*3/uL MPV 10.1 (9.4-12.4) fL Immature Gran % (Auto) 0.4 (0.0-0.4) % Neut % (Auto) 74.3 H (45-73) % Lymph % (Auto) 18.9 L (20-40) % [place] % (Auto) 6.3 (2-11) % Eos % (Auto) 0.0 (0-4) % Baso % (Auto) 0.1 (0-2) % Lymph # (Auto) 1.4 (1.2-4.9) X10*3/uL [place] # (Auto) 0.5 (0.1-1.2) X10*3/uL Eos # (Auto) 0.0 (0.0-0.4) X10*3/uL Baso # (Auto) 0.0 (0.0-0.2) X10*3/uL Abs Immat Gran (auto) 0.03 (0.00-0.03) X10*3/uL Absolute Neuts (auto) 5.3 (2.0-8.3) x10*3/uL Absolute Nucleated RBC 0.000 (0.0-0.012) X10*3/uL Nucleated RBC % (auto) 0.0 (0.0-0.2) /100WBC Sodium 140 (135-145) mmol/L Potassium 3.9 (3.3-5.1) mmol/L Chloride 106 (96-108) mmol/L Carbon Dioxide 23 (22-29) mmol/L Anion Gap 15 (12-20) BUN 23 H (9-16) mg/dL Creatinine 1.33 (0.5-1.4) mg/dL Estim Creat Clear Calc 79.2 Estimated GFR 55 Random Glucose 236 H (60-115) mg/dL Calcium 9.5 (8.4-10.2) mg/dL Total Bilirubin 0.4 (0.0-1.0) mg/dL AST 22 (5-37) U/L ALT 48 H (0-40) U/L Alkaline Phosphatase 124 H (39-117) U/L Total Protein 7.4 (6.5-8.0) g/dL Albumin 4.4 (3.5-5.0) g/dL Lipase 20 (8-78) U/L Beta-Hydroxybutyrate 0.11 (0.02-0.27) mmol/L External Record Review External record reviewed: Outpatient record Discharge Plan Discharge Clinical Impression: Type 2 diabetes mellitus Patient Disposition: Home, Self-Care Instructions: Diabetes and Nutrition (ED), Diabetes and Exercise (ED) Additional Instructions: As discussed, please call your primary care doctor's office 1st thing tomorrow morning to arrange for a follow-up visit regarding your blood sugars. Please keep a record of your blood sugar readings until you are able to be seen by her primary care doctor. Keep a log of what time you took your blood sugar reading, and the last time that you had something to eat prior to that blood sugar reading. You may return back to emergency department any new or worsening symptoms or concerns. Prescriptions: No Action cholecalciferol (vitamin D3) 25 mcg (1,000 unit) capsule 25 mcg PO DAILY Qty: 90 12RF (DME) blood-glucose meter [FreeStyle Lite Meter] Kit See Rx Instructions .Route Qty: 1 5RF Rx Instructions: Tests 4 X/day (DME) FreeStyle Jody 2 [place]ona[place] Misc See Rx Instructions .ROUTE .MEDSUPPLY Qty: 1 1RF Rx Instructions: As directed magnesium hydroxide [Milk of Magnesia] 400 mg/5 mL suspension 10 ml PO BEDTIME Qty: 3780 6RF (DME) FreeStyle Lite Strips Strip See Rx Instructions .Route Qty: 100 5RF Rx Instructions: Tests 5X/day Tresiba FlexTouch U-200 200 unit/mL (3 mL) insulin pen 30 unit subcut DAILY 90 Days Qty: 9 3RF (DME) lancets [FreeStyle Lancets] 28 gauge misc See Rx Instructions .Route Qty: 100 4RF Rx Instructions: Tests 5x/day atorvastatin 10 mg tablet 10 mg PO DAILY Qty: 90 0RF Jardiance 25 mg tablet 25 mg PO QAM Qty: 30 3RF (DME) blood-glucose meter [FreeStyle Lite Meter] Kit See Rx Instructions .ROUTE .MEDSUPPLY Qty: 1 0RF Rx Instructions: As directed metformin 500 mg tablet 1,000 mg PO BID 90 Days Qty: 360 1RF gabapentin 300 mg capsule 300 mg PO BEDTIME 90 Days Qty: 90 1RF furosemide 20 mg tablet 20 mg PO DAILY Qty: 90 1RF bisacodyl 5 mg tablet,delayed release (DR/EC) 10 mg PO BID Qty: 90 0RF benztropine 0.5 mg tablet 0.5 mg PO BID Chloraseptic Max Sore Throat 1.5-33 % spray,non-aerosol 1 spray mucous membrane Q6-8H PRN (Reason: sore throat) Qty: 118 0RF Rx Instructions: leave on area for 15 seconds then spit out cyclobenzaprine 10 mg tablet 10 mg PO TID PRN (Reason: muscle spasm) Qty: 10 0RF acetaminophen 500 mg tablet 500 mg PO Q6H PRN (Reason: fever or pain) Qty: 20 0RF hydroxyzine pamoate 50 mg capsule 50 mg PO TID PRN (Reason: Anxiety) sildenafil 50 mg tablet 50 mg PO DAILY PRN (Reason: sexual activity) Qty: 10 0RF Rx Instructions: administer 30 minutes to 4 hours before activity (DME) pen needle, diabetic [BD Ultra-Fine Orig Pen Needle] 29 gauge x 1/2 needle See Rx Instructions .ROUTE DAILY Qty: 100 3RF Rx Instructions: As directed daily ibuprofen 800 mg tablet 800 mg PO Q8H PRN (Reason: for pain) 30 Days Qty: 90 0RF Rx Instructions: take with food Debrox 6.5 % drops 5 drp otic (ear) right Q12H 5 Days Qty: 15 0RF Laxative (bisacodyl) 5 mg tablet PO magnesium hydroxide [Milk Of Magnesia Concentrated] 2,400 mg/10 mL suspension 10 ml PO BEDTIME PRN clozapine 100 mg tablet 100 mg PO TID Digestive Advantage Advanced 10 billion cell capsule PO polyethylene glycol 3350 [Miralax] 17 gram powder in packet 17 g PO BID Qty: 30 6RF Hold Instructions: Doctor's Order sennosides [senna] 8.6 mg tablet 17.2 mg PO BEDTIME Qty: 60 6RF Hold Instructions: Doctor's Order Linzess 290 mcg capsule 290 mcg PO QAM 30 Days Qty: 30 6RF Fiber Therapy (m-cellulose) 500 mg tablet 1,000 mg PO TID Qty: 180 5RF metoclopramide HCl 5 mg tablet 5 mg PO TID Qty: 90 1RF simethicone 180 mg capsule 180 mg PO TID Qty: 90 6RF docusate sodium 100 mg capsule 100 mg PO BID Qty: 60 6RF Referrals: Luis Manuel Garcia MD [Primary Care Provider] - Print Language: Korean
[2023-12-13 18:22] LABS: MANUAL DIFF FLAG NO
[2023-12-13 18:25] LABS: Basophils Percent Auto 0.1 % (0-2); Hematocrit 42.3 % (42.0-52.0); Hemoglobin 15.3 g/dl (14.0-18.0); Imm Gran Abs Auto 0.03 X10*3/uL (0.00-0.03); Imm Gran Pct Auto 0.4 % (0.0-0.4); Lymphocytes Absolute Auto 1.4 X10*3/uL (1.2-4.9); Lymphocytes Percent Auto 18.9 % (20-40); Mean Corpuscular HGB Conc 36.2 g/dl (31.0-36.0); Mean Corpuscular Hemoglobin 30.4 pg (27.0-33.0); Mean Corpuscular Volume 84.1 fL (80.0-98.0); Mean Platelet Volume 10.1 fL (9.4-12.4); Monocytes Absolute Auto 0.5 X10*3/uL (0.1-1.2); Monocytes Percent Auto 6.3 % (2-11); Neutrophils Absolute Auto 5.3 x10*3/uL (2.0-8.3); Neutrophils Percent Auto 74.3 % (45-73); Platelet Count 114 X10*3/uL (160-400); Red Blood Count 5.03 X10*6/uL (4.60-5.80); Red Cell Distribution Width 12.9 % (11.0-16.0); White Blood Count 7.2 X10*3/uL (4.8-10.8)
[2023-12-13 18:45] LABS: Alanine Aminotransferase 48 U/L (0-40); Albumin Level 4.4 g/dL (3.5-5.0); Alkaline Phosphatase 124 U/L (39-117); Anion Gap 15 (12-20); Aspartate Amino Transferase 22 U/L (5-37); Beta-Hydroxybutyrate 0.11 mmol/L (0.02-0.27); Bilirubin Total 0.4 mg/dL (0.0-1.0); Blood Urea Nitrogen 23 mg/dL (9-16); Calcium 9.5 mg/dL (8.4-10.2); Carbon Dioxide 23 mmol/L (22-29); Chloride 106 mmol/L (96-108); Creatinine Clr Calc Pharmacy 79.2; Estimated Glomerular Filt Rate 55; Glucose Random 236 mg/dL (60-115); Lipase 20 U/L (8-78); Potassium 3.9 mmol/L (3.3-5.1); Sodium 140 mmol/L (135-145); Total Protein 7.4 g/dL (6.5-8.0)
[2023-12-13 22:36] VITALS: BP 107/75; PULSE 79; RESP 16; TEMP 36.8; O2SAT 97
[2023-12-13 22:42] LABS: Glucose, Whole Blood 126 mg/dL (60-115)
[2023-12-13 23:00] VITALS: BP 107/75; PULSE 79; RESP 16; TEMP 36.8; O2SAT 97
== END 2023-12-13 23:03 | disposition home or self-care (01) ==
PROVIDERS: Physician Assistant; Emergency Provider Emergency Medicine; PCP Internal Medicine
DX: E11.9 Type 2 diabetes mellitus without complications (principal); I10 Essential (primary) hypertension; E78.00 Pure hypercholesterolemia, unspecified; Z79.85 Long-term (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 of injectable non-insulin antidiabetic drugs; Z79.02 Long term (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 of antithrombotics/antiplatelets; Z79.899 Other long term (current) drug therapy
CPT/HCPCS: 36415; 80053; 82010; 82947; 83690; 85025; 99283; 99284

== ENCOUNTER 2023-12-22 14:20 | Outpatient (AMB) | payer OTHER, SELFPAY ==
[2023-12-22 14:21] VITALS: BP 125/79; PULSE 84; BMI 35.4
--- NOTE | 2023-12-22 14:21 | A.OFFVIS_ITS ---
Vital Signs 12/22/23 14:21 Height 6 ft 1 in Weight 268 lb 1.314 oz BMI 35.4 BP 125/79 Blood Pressure Location Lt brachial Position Sitting Pulse 84 Intake Visit Reasons: Bowel incontinence Intake Note: Patient presents to in office visit today for bowel incontinence. CC: Patient c/o diarrhea with bowel incontinence at night for about 3 weeks. He states that he has changed his diet to try to bring his sugars down. Allergies No Known Allergies [No Known Allergies*] Allergy (Verified 01/15/24 15:05) HPI HPI Bowel incontinence: Details: Assessment & Plan (1) Chronic idiopathic constipation: Code(s): K59.04 - Chronic idiopathic constipation (2) Delayed gastric emptying: Code(s): K30 - Functional dyspepsia (3) Abdominal bloating: Code(s): R14.0 - Abdominal distension (gaseous) Plan He returns today and advised me he is pooping like crazy. He did not try taking the MOM in smaller amounts daily feeling my body will get used to it. I try to convince him this is not the case, but his level of understanding is limited. He wants to use this and lettuce to move his bowels. Obviously, since I can't go home wtih him we will try to continue as is. He continues to have variable BM's, but this seems most linked to his inconsistent medication compliance and poor understanding of his regimens. He feels he eats too much at his meals. When I ask how he has been eating lately he says not good, junk. So, fiber intake is also very inconsistent. He finds apples gives him diarrhea, and he dislikes bran cereals preferring shredded wheat. His current regimen is supposed to consists of bisacodyl, Colace 100 mg twice a day, a probiotic supplement, Linzess 290 micro g, milk of magnesia p.r.n., fiber therapy twice a day, metoclopramide 5 mg 3 times a day, MiraLax and senna in the past but this is currently held, and simethicone 180 mg 3 times a day. Medications contributing to his constipation include benztropine, vitamin D3, Jardiance, furosemide, hydroxyzine, metformin. ROV 3 mos. Medications: Refilled methylcellulose (laxative) (Fiber Therapy (methylcellulose)) 1,000 mg (2 x 500 mg) PO TID 180 tabs 5RF bisacodyl (Dulcolax (bisacodyl)) 2 tabs qhs and 1 qam PO bedtime; 30 days 90 tabs 6RF K59.04 - Chronic idiopathic constipation linaclotide (Linzess) 290 mcg PO QAM 30 days 30 caps 6RF K59.04 - Chronic idiopathic constipation metoclopramide HCl 5 mg PO TID 90 tabs 1RF simethicone 180 mg PO TID 90 caps 6RF R14.0 - Abdominal distension (gaseous) docusate sodium 100 mg PO BID 60 caps 6RF CORRESPONDENCE On 12/22/23 @ 13:53 Odin Perez Wrote To RandSusy Mike was added for today at 3PM. On 12/22/23 @ 09:04 Odin Perez Wrote To Odin Perez LVM requesting call back to schedule PT. On 12/22/23 @ 08:16 Susy Gordillo Wrote To Odin Perez V please bring him in to see me On 12/21/23 @ 16:44 Odin Perez Wrote To RandSusy November please see message below. On 12/21/23 @ 14:51 Genesis Castrejon Wrote To RandNovember (2) Patient called today stating he's been trying to get hold of someone in our office, he stated he's been having diarrhea and going to the bathroom on himself during his sleep and waking up like that. he is asking specifically for November to call him. TODAY'S VISIT About 3 weeks ago he started having diarrhea and he says my sugars are high. He adjusted his eating habits an dis eating more lettuce, almond milk, unsweetened. He continues to constantly run to the BR and has fecal incontinence. I want him to stop the Linzess and bisacodyl. ROV next week PFSH Medical History (Updated 01/11/24 @ 14:38 by RAHUL Romero) Pain in both feet Calcaneal spur of right foot Achilles tendinitis Callus of foot Right hand pain Abdominal bloating Vertigo Impacted cerumen, right ear Calcaneal spur Colon cancer screening COVID-19 Pre-op examination Elevated LFTs Encounter for Medicare annual wellness exam Bowel obstruction Melena Knee pain, bilateral Gastroenteritis Healed wound Chronic idiopathic constipation Chronic idiopathic constipation Hospital discharge follow-up Knee osteoarthritis Obesity (BMI 30-39.9) Schizoaffective disorder Pure hypercholesterolemia Benign essential hypertension Chronic kidney disease (CKD), stage III (moderate) Type 2 diabetes mellitus with diabetic chronic kidney disease Morbid obesity Dyslipidemia 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 mellitus 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 Diabetic polyneuropathy associated with 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 mellitus Schizo affective schizophrenia Diabetes type 2, uncontrolled Surgical History History of repair of congenital cleft palate Hx of circumcision Family History Father HTN (hypertension) Mother Diabetes Other Mental health problem Social History Household Members: None Housing: Apartment Are you a primary director of healthcare systems to a significant other at home: No Do you presently have visiting nurse or other home services: Yes Alcohol intake: former Patient Tobacco Use Status: Former Tobacco user Tobacco use type: Cigarette Cigarettes Per Day: 15 Years Smoked: 8 quit 30 years ago e-Cigarette/Vaping Use: Never Used Second Hand Smoke Exposure: No service: No Current occupational status: employed Current occupation: [employer] Cognitive needs: No Hearing needs: No Vision needs: Yes (glasses) Review of Systems Const Denies fatigue, Denies fever(s), Denies night sweats, Denies poor appetite and Denies weight loss Eyes Details: glasses Reports requires corrective lenses ENT Reports Normal hearing present, Denies dental pain, Denies dysphagia, Denies hearing loss, Denies mouth pain, Denies odynophagia, Denies throat swelling, Denies tongue swelling and Reports other (Dentition adequate) Card Reports no additional complaints Resp Reports no additional complaints GI Details: Denies abdominal pain, Denies melena, Reports bloating, Denies hematochezia, Reports constipation, Denies GI cramping, Denies dysphagia, Denies excessive flatus, Reports early satiety, Reports heartburn, Reports diarrhea, Denies nausea, Denies odynophagia, Denies vomiting and Denies hematemesis Musc Details: Foot pain Reports back pain Skin/Breast Denies pruritus, Denies lesions, Denies rash and Denies jaundice Neuro Reports Normal hearing present and Denies Abnormal speech present Endo Denies fatigue Aller/Immun Denies throat swelling and Denies tongue swelling Physical Exam Vital Signs: Last Vital Signs Pulse 84 12/22/23 14:21 BP 125/79 12/22/23 14:21 BMI result Body Mass Index 35.4 Const General: cooperative, no acute distress, well developed and well groomed Nutritional Appearance: well nourished and obese Orientation/consciousness: oriented to person, oriented to place and oriented to time Limitations: No language barrier and other limitations (Psychiatric/cognitive impairments) HEENT Head: Yes normocephalic and Yes atraumatic Eyes General: appearance normal, both eyes and all related structures Pupils: Equal, round and reactive pupils present Neck Neck: Yes normal visual inspection and Yes no lymphadenopathy Thyroid: Thyroid normal Resp Effort & Inspection: normal respiratory effort and able to speak in complete sentences Auscultation: clear to auscultation bilaterally Cardio Rate: regular rate Rhythm: regular rhythm Heart sounds: Normal, physiologic split S2 sound present Peripheral pulses: radial pulses present and posterior tibial pulses present GI Inspection: No distended, Yes Abdominal panniculus present and Yes obesity Palpation (GI): Soft to palpation, nontender, no guarding, not rigid and No hepatosplenomegaly present Percussion: Yes normal to percussion Auscultation: normal bowel sounds Rectal Exam - Male: Yes deferred Skin General skin exam: no rashes or lesions noted, turgor normal, skin not dry, no jaundice, No spider nevi and no striae Rashes: no rashes Nails: normal Neuro General: oriented to person, oriented to place and oriented to time Cranial nerves: Yes Equal, round and reactive pupils present and Yes Normal hearing present Speech: No Abnormal speech present Extrem General: Yes normal to inspection, No clubbing, No cyanosis and No edema Psych Appearance: grossly normal and well kempt Mental Status: mental status grossly normal Speech and movement: Normal speech and movement present Affect: normal affect Attitude: cooperative Thought process: not confabulating and Impoverished thought process present Thought content: Normal thought content present Insight: Limited insight present (Psych) and Poor insight present (Psych) Judgement: Limited judgement present (Psych) and Poor judgement present (Psych) Assessment & Plan Assessment & Plan (1) Acute diarrhea: Code(s): R19.7 - Diarrhea, unspecified Category: Medical (2) Chronic idiopathic constipation: Code(s): K59.04 - Chronic idiopathic constipation Category: Medical (3) Delayed gastric emptying: Code(s): K30 - Functional dyspepsia Category: Medical Plan About 3 weeks ago he started having diarrhea and he says my sugars are high. He adjusted his eating habits an dis eating more lettuce, almond milk, unsweetened. He continues to constantly run to the BR and has fecal incontinence. I want him to stop the Linzess and bisacodyl. ROV next week Medications: On Hold linaclotide (Linzess) Hold Comment: Doctor's Order 290 mcg PO QAM 30 days 30 caps 6RF K59.04 - Chronic idiopathic constipation Coding Level of Care Code Est Pt Level 3 (86300) Diagnoses Acute diarrhea R19.7 Chronic idiopathic constipation K59.04 Delayed gastric emptying K30
== END 2023-12-22 14:51 | disposition home or self-care (01) ==
PROVIDERS: PCP Internal Medicine; Visit Provider Nurse Practitioner
DX: R19.7 Diarrhea, unspecified (principal); K59.04 Chronic idiopathic constipation; K30 Functional dyspepsia
CPT/HCPCS: 99213

== ENCOUNTER → 2023-12-22 14:20 | Outpatient (BNVA) | payer OTHER, SELFPAY | PROVIDERS: PCP Internal Medicine; Visit Provider Nurse Practitioner | DX: R19.7 Diarrhea, unspecified (principal); K59.04 Chronic idiopathic constipation; K30 Functional dyspepsia | CPT/HCPCS: 99212 ==

== ENCOUNTER 2023-12-26 07:36 | Outpatient (REF) | payer OTHER, SELFPAY ==
[2023-12-26 07:56] LABS: MANUAL DIFF FLAG NO
[2023-12-26 08:30] LABS: Basophils Percent Auto 0.2 % (0-2); Hematocrit 44.4 % (42.0-52.0); Hemoglobin 15.7 g/dl (14.0-18.0); Imm Gran Abs Auto 0.06 X10*3/uL (0.00-0.03); Lymphocytes Absolute Auto 1.4 X10*3/uL (1.2-4.9); Lymphocytes Percent Auto 22.7 % (20-40); Mean Corpuscular HGB Conc 35.4 g/dl (31.0-36.0); Mean Corpuscular Hemoglobin 30.1 pg (27.0-33.0); Mean Corpuscular Volume 85.1 fL (80.0-98.0); Mean Platelet Volume 10.4 fL (9.4-12.4); Monocytes Absolute Auto 0.6 X10*3/uL (0.1-1.2); Monocytes Percent Auto 9.6 % (2-11); Neutrophils Absolute Auto 4.2 x10*3/uL (2.0-8.3); Neutrophils Percent Auto 66.5 % (45-73); Platelet Count 104 X10*3/uL (160-400); Red Blood Count 5.22 X10*6/uL (4.60-5.80); Red Cell Distribution Width 13.2 % (11.0-16.0); White Blood Count 6.3 X10*3/uL (4.8-10.8)
== END 2023-12-26 07:37 | disposition home or self-care (01) ==
LOC: HO.LABR 07:36
PROVIDERS: PCP Internal Medicine; Visit Provider Psychiatry & Neurology Psychiatry
DX: F25.0 Schizoaffective disorder, bipolar type (principal)
CPT/HCPCS: 36415; 85025

== ENCOUNTER 2023-12-26 09:40 | Outpatient (AMB) | payer OTHER, SELFPAY ==
[2023-12-26 09:42] VITALS: BP 122/72; PULSE 80; TEMP 36.7; O2SAT 98; BMI 35.4
--- NOTE | 2023-12-26 09:42 | MHC.OFFWIV ---
Intake Vital Signs 12/26/23 09:42 Height 6 ft 1 in Weight 268 lb BMI 35.4 BP 122/72 Blood Pressure Location Rt brachial Position Sitting Pulse 80 Pulse Source Pulse Oximeter Temp 98.0 F Temp Source Temporal Artery Scan Pulse Oximetry (%) 98 Oxygen Delivery Method Room Air Intake Visit Reasons: EP fatigue dizziness light headed Intake Note: pt is here for fatigue, dizziness, and light headedness. He states he feels like he is a little delirious Patient Tobacco Use Status: Former Tobacco user Allergies No Known Allergies [No Known Allergies*] Allergy (Verified 12/26/23 10:24) Medication List - Last Reconciled 12/26/23 by Ed Oneil MD acetaminophen 500 mg PO Q6H PRN atorvastatin 10 mg PO DAILY benztropine 0.5 mg PO BID bisacodyl 10 mg (2 x 5 mg) PO BID blood sugar diagnostic (FreeStyle Lite Strips) Tests 5X/day blood-glucose meter (FreeStyle Lite Meter kit) Tests 4 X/day blood-glucose meter (FreeStyle Lite Meter kit) As directed cholecalciferol (vitamin D3) 25 mcg PO DAILY clozapine 100 mg PO TID cyclobenzaprine 10 mg PO TID PRN docusate sodium 100 mg PO BID empagliflozin (Jardiance) 25 mg PO QAM flash glucose scanning reader ([employer] Pharm[employer]Style Jody 2 [place]) As directed furosemide 20 mg PO DAILY gabapentin 300 mg PO BEDTIME 90 days hydroxyzine pamoate 50 mg PO TID PRN ibuprofen 800 mg PO Q8H PRN 30 days L.acidoph, paracasei,B. lactis (Digestive Advantage Advanced Probiotic) cells PO lancets (FreeStyle Lancets) Tests 5x/day linaclotide (Linzess) 290 mcg PO QAM 30 days magnesium hydroxide (Milk Of Magnesia Concentrated) 10 mL PO BEDTIME PRN metformin 1,000 mg (2 x 500 mg) PO BID 90 days methylcellulose (laxative) (Fiber Therapy (methylcellulose)) 1,000 mg (2 x 500 mg) PO TID metoclopramide HCl 5 mg PO TID pen needle, diabetic (BD Ultra-Fine Original Pen Needle) As directed daily phenol-glycerin 1.5-33 % (Chloraseptic Max Sore Throat) 1 spray mucous membrane Q6-8H PRN polyethylene glycol 3350 (Miralax) 17 grams PO BID sennosides (senna) 17.2 mg (2 x 8.6 mg) PO BEDTIME sildenafil 50 mg PO DAILY PRN simethicone 180 mg PO TID Tresiba FlexTouch U-200 (insulin degludec) 30 units (0.15 mL) subcut DAILY 90 days NS Do you need a note to return to daycare/school/sports/work: Yes HPI EP fatigue dizziness light headed HPI Details 63 yr old male presents to the office for a sick visit. Patient reports not feeling well for the past few days. Feeling bloated, burping and fatigue sx. 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 Has not gone to work in the past few days. Patient has a past diagnosis of schizophrenia and Diabetes. This morning his blood sugar was 200 which was his baseline Pt came in alone and answered all questions appropriately. [facility] Medical History Colon cancer screening COVID-19 Pre-op examination Elevated LFTs Encounter for Medicare annual wellness exam Bowel obstruction Melena Knee pain, bilateral Gastroenteritis Healed wound Chronic idiopathic constipation Chronic idiopathic constipation Right hand pain Hospital discharge follow-up Knee osteoarthritis Pain in both feet Obesity (BMI 30-39.9) Schizoaffective disorder Pure hypercholesterolemia Benign essential hypertension Chronic kidney disease (CKD), stage III (moderate) Type 2 diabetes mellitus with diabetic chronic kidney disease Morbid obesity Dyslipidemia 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 mellitus [facility] (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 Diabetic polyneuropathy associated with 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 mellitus Schizo affective schizophrenia Diabetes type 2, uncontrolled Surgical History History of repair of congenital cleft palate Hx of circumcision Family History Father HTN (hypertension) Mother Diabetes Other Mental health problem Social History Household Members: None Housing: Apartment Are you a primary nursing care attendant to a significant other at home: No Do you presently have visiting nurse or other home services: Yes Alcohol intake: former Patient Tobacco Use Status: Former Tobacco user Tobacco use type: Cigarette Cigarettes Per Day: 15 Years Smoked: 8 quit 30 years ago e-Cigarette/Vaping Use: Never Used Second Hand Smoke Exposure: No service: No Current occupational status: employed Current occupation: [employer] Cognitive needs: No Hearing needs: No Vision needs: Yes (glasses) Physical Exam Vital Signs: Last Vital Signs Temp 98.0 F 12/26/23 09:42 Pulse 80 12/26/23 09:42 BP 122/72 12/26/23 09:42 Pulse Ox 98 12/26/23 09:42 Oxygen Delivery Method Room Air 12/26/23 09:42 BMI result Body Mass Index 35.4 Const General: cooperative and healthy appearing Nutritional Appearance: well nourished Orientation/consciousness: patient oriented x3 Limitations: no limitations HEENT Head: Yes normal to inspection Eyes General: appearance normal, both eyes and all related structures Neck Neck: Yes normal visual inspection Chest Chest palpation & inspection: normal palpation of entire chest wall Resp Effort & Inspection: normal respiratory effort Neuro General: patient oriented x3 Office Procedures EKG Details: NSR 28471-Dtrxugzeinpytswsk, Complete Assessment & Plan Assessment & Plan (1) Fatigue: Code(s): R53.83 - Other fatigue Plan: BW revd. EKG revd with patient. Reassurance. Continue current medications. Orders: Orders AMB EKG-In Office Today R07.9 - Chest pain, unspecified Coding Level of Care Code Est Pt Level 4 (92395) Diagnoses Fatigue R53.83 CPT Codes EKG - CPT: 88738-[id number], Complete ([id number])
--- OUTSIDE RECORDS SUMMARY | 2023-12-26 09:42 | XMS_ITS | Patient Health Record ---
Author Organization [facility] [place] [address] Care Team Providers Care Beamster Name Role Phone Luis Manuel Garcia Primary Care Provider Debbie Pedro Unavailable [phone] Clinical, Operations Unavailable Unavailable Suni Phillips Unavailable [phone] Cindi Parryzabeth Unavailable Genesis Walton Unavailable [phone] ALLERGIES No Known Allergies REASON FOR REFERRAL Reason Referral for custodial for diabetic medication and education. Diagnosis 1 Type 2 diabetes prem itus with unspecified complications (E11.8) Diagnosis 2 Polyneuropathy (G62. 9) Referring Provider First Name Operations Referring Provider Last Name Clinical Referring Provider Speciality Unknown Referred Provider [facility], [facility] Referred Provider Specialty Certified [facility] General Notes Member has been iban guerin his glucose levels multiple times a day and going to emergency room when the high. Member would benefit from custodial and education Referral Priority Routine Reason Referral for custodial for diabetic medication and education. Diagnosis 1 Type 2 diabetes prem itus with unspecified complications (E11.8) Diagnosis 2 Polyneuropathy (G62. 9) Referring Provider First Name Operations Referring Provider Last Name Clinical Referring Provider Speciality Unknown Referred Provider [facility], [facility] Referred Provider Specialty Certified [facility] General Notes Member has been chetaras truong his glucose levels multiple times a day and going to emergency room when the high. Member would benefit from custodial and education Referral Priority Routine Reason Referral for custodial for diabetic medication and education. Diagnosis 1 Type 2 diabetes prem itus with unspecified complications (E11.8) Diagnosis 2 Polyneuropathy (G62. 9) Referring Provider First Name Operations Referring Provider Last Name Clinical Referring Provider Speciality Unknown Referred Provider Official Limited Virtual Referred Provider Specialty Certified [facility] General Notes Member has been chec truong his glucose levels multiple times a day and going to emergency room when the high. Member would benefit from custodial and education Referral Priority Routine MEDICATIONS Medication SIG (Take, Route, Frequency, Duration) Notes Start Date End Date Status Fiber Therapy 500 MG 2 tablets with a full glass of water as needed Orally three times a day Active Docusate Sodium 100 MG 1 Capsule Orally Twice a Day - PRN Active Milk of Magnesia 1200 MG/15ML 5 ml at least 4 hours between doses Orally at bedtime. Member takes 20mL total usually for BM Active Linzess 290 MCG 1 capsule at least 30 minutes before the first meal of the day on an empty stomach Orally Once a day Active Cholecalciferol 25 MCG (1000 UT) 1 capsule Orally Once a day Active Simethicone 180 MG 1 Capsule after meals Orally Three Times a Day - PRN Active Furosemide 20 MG 1 tablet Orally Once a day Active Atorvastatin Calcium 10 MG 1 tablet Orally at bedtime every day Active Probiotic 1-250 BILLION-MG as directed Orally Daily Active hydrOXYzine Pamoate 50 MG 1 Capsule Orally Three Times a Day - PRN Active Benztropine Mesylate 0.5 MG 1 tablet Orally Twice a Day Active Jardiance 25 MG 1 tablet Orally Once a day Active Icy Hot Medicated Raymond 16 % 1 application as needed Externally Three times a day For knee pain Active Tresiba FlexTouch 100 UNIT/ML 30 units Subcutaneous Once a Day Active Ibuprofen 800 MG 1 tablet with food or milk as needed Orally every 8 hrs Active Gabapentin 300 MG 1 capsule Orally Once a day Active metFORMIN HCl 500 MG 2 tablets with a meal Orally Twice a day Active Clozapine 100 MG 3 tablets Orally once a day at bedtime Active Bisacodyl EC 5 MG 1 tablet in the AM and x2 in the PM Orally Once a day Active Sennosides 8.6 MG 2 tablets at bedtime Orally Daily - PRN Member does not have currently. Not-Taking Gentle Laxative 5 MG 1 tablet in the morning, 2 at night Orally BID Not-Taking Tylenol 325 MG 2 tabletsas needed Orally every 8 hours PRN pain Not-Taking Metoclopramide HCl 5 MG 1 tablet before meals Orally Three Times a Day Active Armetheon 2 w/Device as directed for 99 days Type 2 Diabetes Mellitus with unspecified complications - E11.8 Active OneTouch Ultra Test Strips - As Directed To Skin Three times a day for 30 days Type 2 Diabetes Mellitus with unspecified complications - E11.8 Active OneTouch Lancets - As Directed To Skin Three times a day for 30 days Type 2 Diabetes Mellitus with unspecified complications - E11.8 Active cloZAPine 100 MG 1 tablet Orally once a day in am Active IMMUNIZATIONS Vaccine Route Administration Date Status Comme nts COVID-19 COMIRNATY Vaccine, Fall 2022, SARS-CoV-2 virus strain Michael XBB.1.5 Unknown 07/03/2023 Administered COVID-19, mRNA, LNP-S, bival ent booster, PF, 30 mcg/0.3 mL Unknown 08/04/2022 Administered Flu Vac (Fluzone /Alfuria) QIV PFS Unknown 03/29/2022 A dministered Flu Vac (Fluzone /Alfuria) QIV PFS Unknown 04/04/2023 A dministered Flu Vac (Fluzone) QIV, MDV Unknown 03/16/2021 Administe roz e|tab (J&J) COVID-19 Vaccine IM Unknown 11/18/2020 Ad ministered Pfizer-BioNTech COVID-19 Vac cine 12+ IM Unknown 12/09/2021 Administered Pfizer-BioNTech COVID-19 Vaccine IM Unknown 07/22/2021 Administered SOCIAL HISTORY Tobacco Use: Social History Observation Description Date Details (start date - stop date) Former Smoker NA - NA Sex Assigned At : Social History Observation Description Sex Assigned At Unknown Tobacco Use/Smoking Question Answer Notes Are you a former smoker Additional Findings: Tobacco User Heavy cigarett e smoker (20-39 cigs/day) Additional Findings: Tobacco Non-User Tolerant e x-smoker Alcohol Screen Question Answer Notes Did you have a drink contain ing alcohol in the past year? Yes How often did you have a dri nk containing alcohol in the past year? 2 to 4 times a month (2 points) How many drinks did you have on a typical day when you were drinking in the past year? 1 or 2 drinks (0 point) How often did you have 6 or more drinks on one occasion in the past year? Never (0 point) Points 2 Interpretation Negative PROBLEMS Problem Type ICD Code Onset Dates Problem Status W/U Status Risk SNOMED Code Notes Problem Presbyopia (H52.4) Active confirmed 412 [id number] Problem Hypertension (I10) Active confirmed 383 42713 Problem Type 2 diabetes mellitus with unspecified complications (E11.8) Active confirmed 38767681 Problem Schizoaffective disorder (F25.9) Active confirmed 27158642 Problem Pain in right knee (M25.561) Active confirmed 1517399853 Problem Other chronic pain (G89.29) Active confirmed 06561217 Problem Hypertensive chronic kidney disease with stage 1 through stage 4 chronic kidney disease, or unspecified chronic kidney disease (I12.9) Active confirmed 197582883844890 Problem Schizoaffective disorder, bipolar type (F25.0) Active confirmed 07952042 Problem Morbid obesity with BMI of 40.0-44.9, adult (E66.01) Active confirmed 389318780 Problem BPH (benign prostatic hyperplasia) (N40.0) Active confirmed Benign prostati c hyperplasia (024609145) Problem Pain in left knee (M25.562) Active confirmed 186964544317995 Problem Anxiety (F41.9) Active confirmed 023368 02 Problem Polyneuropathy (G62.9) Active confirmed 90421504 Problem Corns and callosities (L84) Active confirmed 536721359 Problem Myopia, bilateral (H52.13) Active confirmed 450165603209406 Problem Bilateral primary osteoarthritis of knee (M17.0) Active confirmed 818872364 Problem Pain in left foot (M79.672) Active confirmed 416526618994439 Problem Functional dyspepsia (K30) Active confirmed 8900634 Problem Melena (K92.1) Active confirmed 4616880 Problem Pain in right foot (M79.671) Active confirmed 67370572635567220 Problem Age-related nuclear cataract, bilateral (H25.13) Active confirmed 847538556560368 Problem Dermatochalasis of right upper eyelid (H02.831) Active confirmed 855499838680913 Problem Left anterior fascicular block (I44.4) Active confirmed 49380754 Problem Hypotension, unspecified hypotension type (I95.9) Active confirmed 02739690 Problem Erectile dysfunction, unspecified erectile dysfunction type (N52.9) Active confirmed 675068759 Problem Anxiety disorder, unspecified type (F41.9) Active confirmed 818455944 Problem Hyperlipidemia, unspecified hyperlipidemia type (E78.5) Active confirmed 36515557 Problem Chest pain, unspecified type (R07.9) Active confirmed 55700295 Problem Chronic idiopathic constipation (K59.04) Active confirmed 74673473 Problem Bilateral hearing loss, unspecified hearing loss type (H91.93) Active confirmed 24644967 Problem Noninfectious gastroenteritis, unspecified type (K52.9) Active confirmed 92401551 Problem Hepatic cirrhosis, unspecified hepatic cirrhosis type, unspecified whether ascites present (K74.60) Active confirmed 36763631 Problem Stage 3 chronic kidney disease, unspecified whether stage 3a or 3b CKD (N18.30) Active confirmed 721570540 Problem Lumbar pain (M54.50) Active confirmed 333877284 VITAL SIGNS Heart Rate 82 /min 10/16/2023 Pain: 1 in lower back. APC's thermometer not working at visit, unable to check temp. Temperature 97.7 degrees Fahrenheit 07/17/2023 Respiratory Rate 16 /min 10/16/2023 Pain: 1 in lower back. APC's thermometer not working at visit, unable to check temp. Oximetry 98 % 10/16/2023 Pain: 110 in lower back. APC's thermometer not working at visit, unable to check temp. Blood pressure diastolic 82 mm Hg 10/16/2023 Pain: 1 in lower back. APC's thermometer not working at visit, unable to check temp. Weight-kg 120.02 kg 10/16/2023 Pain: 1 in lower back. APC's thermometer not working at visit, unable to check temp. Blood pressure systolic 117 mm Hg 10/16/2023 Pain: 1 in lower back. APC's thermometer not working at visit, unable to check temp. Weight 264.6 lbs 10/16/2023 Pain: 1 in lower back. APC's thermometer not working at visit, unable to check temp. Encounters Encounter Location Date Provider Diagnosis [facility] (Closed) [address] [place] [address] 03/09/2023 Suni Phillips [facility] [address] [place] [address] [facility] [address] [facility] [address] [place] [address] 10/05/2023 Operations Clinical Type 2 diabetes mellitus with unspecified complications E11.8 ; Hypertension I10 ; Schizoaffective disorder F25.9 ; Morbid obesity with BMI of 40.0-44.9, adult E66.01 ; BPH (benign prostatic hyperplasia) N40.0 ; Corns and callosities L84 ; Schizoaffective disorder, bipolar type F25.0 ; Chronic idiopathic constipation K59.04 ; Bilateral primary osteoarthritis of knee M17.0 ; Pain in right knee M25.561 ; Other chronic pain G89.29 ; Pain in left knee M25.562 ; Anxiety disorder, unspecified type F41.9 ; Bilateral hearing loss, unspecified hearing loss type H91.93 ; Polyneuropathy G62.9 ; Stage 3 chronic kidney disease, unspecified whether stage 3a or 3b CKD N18.30 ; Pain in right foot M79.671 ; Pain in left foot M79.672 ; Hepatic cirrhosis, unspecified hepatic cirrhosis type, unspecified whether ascites present K74.60 ; Hyperlipidemia, unspecified hyperlipidemia type E78.5 ; Functional dyspepsia K30 ; Melena K92.1 ; Lumbar pain M54.50 ; Erectile dysfunction, unspecified erectile dysfunction type N52.9 ; Noninfectious gastroenteritis, unspecified type K52.9 ; Dermatochalasis of right upper eyelid H02.831 ; Age-related nuclear cataract, bilateral H25.13 ; Myopia, bilateral H52.13 ; Presbyopia H52.4 ; Anxiety F41.9 ; Hypotension, unspecified hypotension type I95.9 ; Chest pain, unspecified type R07.9 ; Left anterior fascicular block I44.4 and Hypertensive chronic kidney disease with stage 1 through stage 4 chronic kidney disease, or unspecified chronic kidney disease I12.9 [facility] Primary Care [facility] [address] [facility] [address] [place] [address] 10/16/2023 Genesis LaFountain Type 2 diabetes mellitus with unspecified complications E11.8 ; Lumbar pain M54.50 ; Pain in left knee M25.562 ; Pain in right knee M25.561 ; Schizoaffective disorder, bipolar type F25.0 ; Anxiety disorder, unspecified type F41.9 and Bilateral hearing loss, unspecified hearing loss type H91.[address] [address] 06/29/2023 Genesis LaFountain Type 2 diabetes mellitus with unspecified complications E11.8 ; Acute bilateral low back pain, unspecified whether sciatica present M54.50 and Black tarry stools K92.[address] [address] 10/23/2023 Genesis LaFountain [address] [address] 02/28/2023 Genesis LaFountain Type 2 diabetes mellitus with unspecified complications E11.8 ; Schizoaffective disorder, bipolar type F25.0 ; Chronic idiopathic constipation K59.04 ; Anxiety disorder, unspecified type F41.9 and Hypotension, unspecified hypotension type I95.[address] [address] 03/14/2023 Genesis LaFountain Type 2 diabetes mellitus with unspecified complications E11.8 and Hypotension, unspecified hypotension type I95.[address] [address] 03/21/2023 Genesis LaFountain Type 2 diabetes mellitus with unspecified complications E11.8 ; Hypotension, unspecified hypotension type I95.9 and Pre-syncope R55 [address] [address] 03/27/2023 Genesis LaFountain Type 2 diabetes mellitus with unspecified complications E11.8 ; Hypotension, unspecified hypotension type I95.9 and Pain of toe of right foot M79.[address] [address] 04/12/2023 Genesis LaFountain Type 2 diabetes mellitus with unspecified complications E11.8 ; Hypotension, unspecified hypotension type I95.9 and Acute bilateral low back pain, unspecified whether sciatica present M54.[address] [address] 05/08/2023 Genesis LaFountain Type 2 diabetes mellitus with unspecified complications E11.8 ; Acute bilateral low back pain, unspecified whether sciatica present M54.50 and Black tarry stools K92.1 [facility] [address] [address] 07/17/2023 Genesis Walton Type 2 diabetes mellitus with unspecified complications E11.8 ; Acute bilateral low back pain, unspecified whether sciatica present M54.50 ; Injury of nail bed of toe S99.929A ; Chronic idiopathic constipation K59.04 ; Chronic diarrhea of unknown origin K52.9 and Hearing trouble, bilateral H91.93 ASSESSMENTS Encounter Date Diagnosis Assessment Notes Treatment Notes Treatment Clinical Notes 02/28/2023 Type 2 diabetes mellitus with unspecified complications (ICD-10 - E11.8) Chronic/Stable Member unsure of most recent A1C Member's Average POC: 7 Day: 190 14 Day: 187 30 Day: 188 Most recent POC: 189 Member denies any recent hyper/hypoglycemic episodes. - Please continue with Diabetic Medication Regimen. - Please take POC TID before meals and before bed. - Educated on importance of eating a low sugar, diabetic diet. - Please continue to F/U with PCP. - Please continue with bloodwork (A1C, Renal Function) as appropriate. -For any concerns or worsening conditions, please contact PCP/APC. 03/14/2023 Type 2 diabetes mellitus with unspecified complications (ICD-10 - E11.8) Chronic/Stable Member unsure of most recent A1C Member's Average POC: 7 day: 185 14 day: 193 30 day: 117 Member had x6 POC between 200-260 since last visit. Member has had x0 POC below 70 since last visit. - Please continue with Diabetic Medication Regimen. - Please continue to take POC daily and as needed (S&S of low or high blood sugar). - Educated on importance of eating a low sugar, diabetic diet. - Please continue to F/U with PCP. - Please continue with bloodwork (A1C, Renal Function) as appropriate. -For any concerns or worsening conditions, please contact PCP/APC. 03/14/2023 Hypotension, unspecified hypotension type (ICD-10 - I95.9) Acute/Stable Member's SBP 102 at visit, asymptomatic. - Please continue to monitor. - For any dizziness/weakness/ lightheadedness that does no improve, call InstED. - Please slowly change positions to decrease dizziness/lighthead edness occuring. - Ensure you are drinking enough fluids to maintain your BP. - Please F/U with PCP if symptoms of hypotension continue/do not improve. - For any concerns or worsening symptoms, please contact PCP/APC. 03/21/2023 Type 2 diabetes mellitus with unspecified complications (ICD-10 - E11.8) Chronic/Stable Member unsure of most recent A1C Member's Average POC: 7 day: 175 14 day: 181 30 day: 188 Member had x10 POC between 200-245 since last visit; member was off diabetic medication (Metformin) for a couple of days d/t colonoscopy prep. Member has had x1 POC below 70 since last visit. - Please continue with Diabetic Medication Regimen. - Please continue to take POC daily and as needed (S&S of low or high blood sugar). - Educated on importance of eating a low sugar, diabetic diet. - Please continue to F/U with PCP. - Please continue with bloodwork (A1C, Renal Function) as appropriate. -For any concerns or worsening conditions, please contact PCP/APC. 03/21/2023 Hypotension, unspecified hypotension type (ICD-10 - I95.9) Acute/Stable Pre-syncope - R55 Member's SBP 102 at visit, asymptomatic. Member did report dizziness and weakness that occurs every now and then but none currently. Member had what sounds to be x1 potential presyncope event while at work in the past week, but denies any since. Will continue to monitor. - Please continue to monitor. - For any dizziness/weakness/ lightheadedness that does no improve, call InstED. - Please slowly change positions to decrease dizziness/lighthead edness occuring. - Ensure you are drinking enough fluids to maintain your BP. - Please F/U with PCP if symptoms of hypotension continue/do not improve. - For any concerns or worsening symptoms, please contact PCP/APC. 03/27/2023 Type 2 diabetes mellitus with unspecified complications (ICD-10 - E11.8) Chronic/Stable Member unsure of most recent A1C Member's Average POC: 7 Day: 187 14 Day: 177 30 Day: 186 Member had x9 POC between 204-296 since last visit. Member has had x0 POC below 70 since last visit. - Please continue with Diabetic Medication Regimen. - Please continue to take POC daily and as needed (S&S of low or high blood sugar). - Educated on importance of eating a low sugar, diabetic diet. - Please continue to F/U with PCP. - Please continue with bloodwork (A1C, Renal Function) as appropriate. -For any concerns or worsening conditions, please contact PCP/APC. 04/12/2023 Type 2 diabetes mellitus with unspecified complications (ICD-10 - E11.8) Chronic/Stable Member unsure of most recent A1C Member's Average POC: 7 Day: 195 14 Day: 195 Member had x10 POC between 206-306 since last visit. Member has had x0 POC below 70 since last visit. - Please continue with Diabetic Medication Regimen. - Please continue to take POC daily and as needed (S&S of low or high blood sugar). - Educated on importance of eating a low sugar, diabetic diet; provided education on portion control and moderation to member, as well as alternatives for certain foods and healthier options. - Please continue to F/U with PCP. - Please continue with bloodwork (A1C, Renal Function) as appropriate. -For any concerns or worsening conditions, please contact PCP/APC. 05/08/2023 Type 2 diabetes mellitus with unspecified complications (ICD-10 - E11.8) Chronic/Stable Member unsure of most recent A1C Member's Average POC: 7 Day:166 14 Day: 176 30 Day: 192 Most recent POC: 270 - Please continue with Diabetic Medication Regimen. - Please continue to take POC 2-3x/day and as needed (S&S of low or high blood sugar). - Educated on importance of eating a low sugar, diabetic diet; provided education on portion control and moderation to member, as well as alternatives for certain foods and healthier options. - Please continue to F/U with PCP. - Please continue with bloodwork (A1C, Renal Function) as appropriate. -For any concerns or worsening conditions, please contact PCP/APC. 06/29/2023 Type 2 diabetes mellitus with unspecified complications (ICD-10 - E11.8) Chronic/Stable Member unsure of most recent A1C Member's Average POC: 7 Day:166 14 Day: 176 30 Day: 192 Most recent POC: 270 - Please continue with Diabetic Medication Regimen. - Please continue to take POC 2-3x/day and as needed (S&S of low or high blood sugar). - Educated on importance of eating a low sugar, diabetic diet; provided education on portion control and moderation to member, as well as alternatives for certain foods and healthier options. - Please continue to F/U with PCP. - Please continue with bloodwork (A1C, Renal Function) as appropriate. -For any concerns or worsening conditions, please contact PCP/APC. 07/17/2023 Type 2 diabetes mellitus with unspecified complications (ICD-10 - E11.8) Chronic/Stable Member unsure of most recent A1C Member's Average POC: 7:194 14: 195 30: 183 Most recent POC: 212 - Please continue with Diabetic Medication Regimen. - Please continue to take POC 2-3x/day and as needed (S&S of low or high blood sugar). - Educated on importance of eating a low sugar, diabetic diet. - Please continue to F/U with PCP. - Please continue with bloodwork (A1C, Renal Function) as appropriate. -For any concerns or worsening conditions, please contact PCP/APC. 10/05/2023 Type 2 diabetes mellitus with unspecified complications (ICD-10 - E11.8) 10/16/2023 Type 2 diabetes mellitus with unspecified complications (ICD-10 - E11.8) Chronic/Stable Member unsure of most recent A1C Member's Average POC: Day 7: 190 Day 17: 208 Day 30: 206 Most recent POC: 235 - Please continue with Diabetic Medication Regimen. - Please continue to take POC 3x/day and as needed (S&S of low or high blood sugar). - Educated on importance of eating a low sugar, diabetic diet. - Please continue to F/U with PCP. - Please continue with bloodwork (A1C, Renal Function) as appropriate. -For any concerns or worsening conditions, please contact PCP/APC. 10/16/2023 Lumbar pain (ICD-10 - M54.50) Chronic/Stable Pain in Left Knee - M25.562 Pain in RIght Knee - M25.561 - Please continue with Pain management regimen. - Educated member on both pharmacological and non-pharmacological pain interventions. - Please F/U with PCP. - For any concerns or worsening symptoms, please contact PCP/APC 06/29/2023 Acute bilateral low back pain, unspecified whether sciatica present (ICD-10 - M54.50) Acute/Stable - Please continue with Pain management regimen. - Educated member on both pharmacological and non-pharmacological pain interventions. - Please F/U with PCP. - For any concerns or worsening symptoms, please contact PCP/APC 07/17/2023 Acute bilateral low back pain, unspecified whether sciatica present (ICD-10 - M54.50) Acute/Stable - Please continue with Pain management regimen. - Educated member on both pharmacological and non-pharmacological pain interventions. - Please F/U with PCP. - For any concerns or worsening symptoms, please contact PCP/APC 10/05/2023 Hypertension (ICD-10 - I10) 05/08/2023 Acute bilateral low back pain, unspecified whether sciatica present (ICD-10 - M54.50) Acute/Stable - Please continue with Pain management regimen. - Educated member on both pharmacological and non-pharmacological pain interventions. - Please F/U with PCP. - For any concerns or worsening symptoms, please contact PCP/APC 04/12/2023 Hypotension, unspecified hypotension type (ICD-10 - I95.9) Chronic/Stable Member's SBP 98 at visit, asymptomatic. - Please continue to monitor. - For any dizziness/weakness/ lightheadedness that does no improve, call InstED. - Please slowly change positions to decrease dizziness/lighthead edness occuring. - Ensure you are drinking enough fluids to maintain your BP. - Please F/U with PCP if symptoms of hypotension continue/do not improve. - For any concerns or worsening symptoms, please contact PCP/APC. 03/27/2023 Hypotension, unspecified hypotension type (ICD-10 - I95.9) Chronic/Stable Member's SBP 102 at visit, asymptomatic. - Please continue to monitor. - For any dizziness/weakness/ lightheadedness that does no improve, call [facility]. - Please slowly change positions to decrease dizziness/lighthead edness occuring. - Ensure you are drinking enough fluids to maintain your BP. - Please F/U with PCP if symptoms of hypotension continue/do not improve. - For any concerns or worsening symptoms, please contact PCP/APC. 03/21/2023 Pre-syncope (ICD-10 - R55) 02/28/2023 Schizoaffective disorder, bipolar type (ICD-10 - F25.0) Chronic/Stable Member follows with Psych every six weeks Member follows with therapist biweekly. Member's KENDRA-7 score today was 4, indicating no significant Anxiety Member's PHQ9 score today was 7, indicating Mild Depression. Member's Mini-Cog was positive for memory impairment. Member denies any thoughts of harming self or others currently. - Please continue with Psych medication - Please continue to follow with therapist & Psych. - Please F/U with PCP in regards to positive Mini-Cog. - For any thoughts of harming yourself or others, please reach out to PCP/APC. If actively suicidal, please call EMS. - For any concerns or worsening symptoms, please contact PCP/APC. 03/27/2023 Pain of toe of right foot (ICD-10 - M79.674) Acute/Stable - Please continue to monitor second right toe; for worsening pain/changes in toe (bruising/swelling/ darkening of toe) please contact PCP or [facility]. - Please continue with Pain management regimen. - Educated member on both pharmacological and non-pharmacological pain interventions. - For any concerns or worsening symptoms, please contact PCP/APC 04/12/2023 Acute bilateral low back pain, unspecified whether sciatica present (ICD-10 - M54.50) Acute/Stable - Please continue with Pain management regimen. - Educated member on both pharmacological and non-pharmacological pain interventions. - Please F/U with PCP for further evaluation if symptoms do not improve. - For any concerns or worsening symptoms, please contact PCP/APC 05/08/2023 Black tarry stools (ICD-10 - K92.1) Acute/Stable - Please avoid any NSAID medications currently. - Please monitor for cramping, abdominal pain, lightheadedness, dizziness, and leida blood. If any of these symptoms occur, please contact [facility]. - Please F/U with GI on 05/11 and inform of dark stools. - Please complete FOBT you have receieved and return to PCP for evaluation. - Please continue to follow with PCP. - For any concerns or worsening symptoms, please contact PCP/APC 02/28/2023 Chronic idiopathic constipation (ICD-10 - K59.04) Chronic/Stable - Please continue with Bowel Regimen. - Please increase fluid in your diet as tolerated by your other chronic conditions. - Please increase fiber in your diet. - Please continue with physical activity as tolerated. - Please continue to follow with PCP. - For any concerns or worsening symptoms, please contact PCP/APC. 06/29/2023 Black tarry stools (ICD-10 - K92.1) Acute/Stable - Please avoid any NSAID medications currently. - Please monitor for cramping, abdominal pain, lightheadedness, dizziness, and leida blood. If any of these symptoms occur, please contact [facility]. - Please F/U with GI on 05/11 and inform of dark stools. - Please complete FOBT you have receieved and return to PCP for evaluation. - Please continue to follow with PCP. - For any concerns or worsening symptoms, please contact PCP/APC 07/17/2023 Injury of nail bed of toe (ICD-10 - S99.929A) Acute/Stable - Continue to monitor. - For any concerns or worsening symptoms, please contact PCP/APC. 10/05/2023 Schizoaffective disorder (ICD-10 - F25.9) 10/16/2023 Pain in left knee (ICD-10 - M25.562) 10/16/2023 Pain in right knee (ICD-10 - M25.561) 10/05/2023 Morbid obesity with BMI of 40.0-44.9, adult (ICD-10 - E66.01) 07/17/2023 Chronic idiopathic constipation (ICD-10 - K59.04) Chronic/Stable Chronic diarrhea of unknown origin - K52.9 - Please continue with GI Medication Regimen. - Please continue to monitor for rectal bleeding or bloody stools, and inform PCP if they occur. - Please continue to follow with GI. - For any concerns or worsening symptoms, please contact PCP/APC. 02/28/2023 Anxiety disorder, unspecified type (ICD-10 - F41.9) 02/28/2023 Hypotension, unspecified hypotension type (ICD-10 - I95.9) Acute/Stable Member's SBP 100. Member had some lightheadedness and dizziness which resolved during visit. Most likely d/t diarrhea & diuretics. Member drinking fluids to help. - Please continue to monitor. - For any dizziness/weakness/ lightheadedness that does no improve, call [facility]. - Please slowly change positions to decrease dizziness/lighthead edness occuring. - Ensure you are drinking enough fluids to maintain your BP. - Please F/U with PCP if symptoms of hypotension continue/do not improve. - For any concerns or worsening symptoms, please contact PCP/APC. 07/17/2023 Chronic diarrhea of unknown origin (ICD-10 - K52.9) 10/05/2023 BPH (benign prostatic hyperplasia) (ICD-10 - N40.0) 10/16/2023 Schizoaffective disorder, bipolar type (ICD-10 - F25.0) Chronic/Stable Anxiety Disorder, unspecified type - F41.9 - Please continue with Psychiatric Medications. - Please continue to F/U with psychiatry & therapy. - For any thoughts of harming yourself or others, please reach out to PCP/APC. If actively suicidal, please call EMS. - For any concerns or worsening symptoms, please contact PCP/APC. 10/16/2023 Anxiety disorder, unspecified type (ICD-10 - F41.9) 07/17/2023 Hearing trouble, bilateral (ICD-10 - H91.93) Chronic/Labile - Please discuss with PCP about trouble hearing at Jul 2023 visit. - For any concerns or worsening symptoms, please contact PCP/APC. 10/05/2023 Corns and callosities (ICD-10 - L84) 10/05/2023 Schizoaffective disorder, bipolar type (ICD-10 - F25.0) 10/16/2023 Bilateral hearing loss, unspecified hearing loss type (ICD-10 - H91.93) Chronic/Stable - Please continue to monitor. - Please F/U with PCP in November 2023 and discuss concerns with hearing loss and audiology referral. - For any concerns or worsening symptoms, please contact PCP/APC 10/05/2023 Chronic idiopathic constipation (ICD-10 - K59.04) 10/05/2023 Bilateral primary osteoarthritis of knee (ICD-10 - M17.0) 10/05/2023 Pain in right knee (ICD-10 - M25.561) 10/05/2023 Other chronic pain (ICD-10 - G89.29) 10/05/2023 Pain in left knee (ICD-10 - M25.562) 10/05/2023 Anxiety disorder, unspecified type (ICD-10 - F41.9) 10/05/2023 Bilateral hearing loss, unspecified hearing loss type (ICD-10 - H91.93) 10/05/2023 Polyneuropathy (ICD-10 - G62.9) 10/05/2023 Stage 3 chronic kidney disease, unspecified whether stage 3a or 3b CKD (ICD-10 - N18.30) 10/05/2023 Pain in right foot (ICD-10 - M79.671) 10/05/2023 Pain in left foot (ICD-10 - M79.672) 10/05/2023 Hepatic cirrhosis, unspecified hepatic cirrhosis type, unspecified whether ascites present (ICD-10 - K74.60) 10/05/2023 Hyperlipidemia, unspecified hyperlipidemia type (ICD-10 - E78.5) 10/05/2023 Functional dyspepsia (ICD-10 - K30) 10/05/2023 Melena (ICD-10 - K92.1) 10/05/2023 Lumbar pain (ICD-10 - M54.50) 10/05/2023 Erectile dysfunction, unspecified erectile dysfunction type (ICD-10 - N52.9) 10/05/2023 Noninfectious gastroenteritis, unspecified type (ICD-10 - K52.9) 10/05/2023 Dermatochalasis of right upper eyelid (ICD-10 - H02.831) 10/05/2023 Age-related nuclear cataract, bilateral (ICD-10 - H25.13) 10/05/2023 Myopia, bilateral (ICD-10 - H52.13) 10/05/2023 Presbyopia (ICD-10 - H52.4) 10/05/2023 Anxiety (ICD-10 - F41.9) 10/05/2023 Hypotension, unspecified hypotension type (ICD-10 - I95.9) 10/05/2023 Chest pain, unspecified type (ICD-10 - R07.9) 10/05/2023 Left anterior fascicular block (ICD-10 - I44.4) 10/05/2023 Hypertensive chronic kidney disease with stage 1 through stage 4 chronic kidney disease, or unspecified chronic kidney disease (ICD-10 - I12.9) 03/14/2023 Other PLAN OF TREATMENT Pending Test Test Name Order Date MDS assessment 04/25/2014 Insurance Providers Payer Name Payer Address Payer Phone Subscriber Number Group Number Insured Name Patient Relationship to Insured Coverage Start Date [facility]age End Date [facility] [place] [address] [id number] BASILIA BAIRD Self - patient is the insured [phone] [address] [id number] BASILIA BAIRD Self - patient is the insured 3 8 MEDICAL (GENERAL) HISTORY Medical History History ICD Code DM II (Polyneuropathy) HTN Schizoaffective (Bipolar Type) Morbid Obesity BPH Constipation OA Chronic Pain Anxiety Bilateral Hearing Loss Hepatic Cirrhosis HLD Hospitalization History Reason Date(Month/Year) ED: ABD Pain, Constipation February 2023 [facility] [place] ED: Hyperglycemia 01/04/23"
== END 2023-12-26 11:08 | disposition home or self-care (01) ==
PROVIDERS: PCP Internal Medicine; Visit Provider Internal Medicine
DX: R53.83 Other fatigue (principal)
CPT/HCPCS: 93000; 99214

== ENCOUNTER → 2023-12-27 13:04 | Outpatient (BNVA) | payer OTHER, SELFPAY | PROVIDERS: PCP Internal Medicine; Visit Provider Nurse Practitioner ==

== ENCOUNTER 2024-01-01 10:14 | Outpatient (AMB) | payer OTHER, SELFPAY ==
[2024-01-01 10:16] VITALS: BP 118/66; PULSE 90; TEMP 36.3; O2SAT 96; BMI 35.4
--- NOTE | 2024-01-01 10:16 | MHC.OFFWIV ---
Intake Vital Signs 01/01/24 10:16 Height 6 ft 1 in Weight 268 lb BMI 35.4 BP 118/66 Blood Pressure Location Lt brachial Position Sitting Pulse 90 Pulse Source Pulse Oximeter Temp 97.4 F Temp Source Temporal Artery Scan Pulse Oximetry (%) 96 Oxygen Delivery Method Room Air Intake Visit Reasons: EP sore on stomach/inner thigh puss Intake Note: pt is here today for sore on stomach and inner thigh puss started 6 days ago Patient Tobacco Use Status: Former Tobacco user Allergies No Known Allergies [No Known Allergies*] Allergy (Verified 01/01/24 10:22) Do you need a note to return to daycare/school/sports/work: No HPI HPI Comments History of Present Illness Details This is a 63-year-old male presenting to the walk-in clinic complaining of a rash to his left inguinal area. Patient states there has been some drainage from the area. He states this has been going on for the past several days. [facility] Medical History Colon cancer screening COVID-19 Pre-op examination Elevated LFTs Encounter for Medicare annual wellness exam Bowel obstruction Melena Knee pain, bilateral Gastroenteritis Healed wound Chronic idiopathic constipation Chronic idiopathic constipation Right hand pain Hospital discharge follow-up Knee osteoarthritis Pain in both feet Obesity (BMI 30-39.9) Schizoaffective disorder Pure hypercholesterolemia Benign essential hypertension Chronic kidney disease (CKD), stage III (moderate) Type 2 diabetes mellitus with diabetic chronic kidney disease Morbid obesity Dyslipidemia 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 mellitus 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 Diabetic polyneuropathy associated with 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 mellitus Schizo affective schizophrenia Diabetes type 2, uncontrolled Surgical History History of repair of congenital cleft palate Hx of circumcision Family History Father HTN (hypertension) Mother Diabetes Other Mental health problem Social History Household Members: None Housing: Apartment Are you a primary customer care voice consultant to a significant other at home: No Do you presently have visiting nurse or other home services: Yes Alcohol intake: former Patient Tobacco Use Status: Former Tobacco user Tobacco use type: Cigarette Cigarettes Per Day: 15 Years Smoked: 8 quit 30 years ago e-Cigarette/Vaping Use: Never Used Second Hand Smoke Exposure: No service: No Current occupational status: employed Current occupation: [employer] Cognitive needs: No Hearing needs: No Vision needs: Yes (glasses) Review of Systems Const All systems reviewed & are unremarkable except as noted in HPI and below Reports no additional complaints Eyes Reports no additional complaints ENT Reports no additional complaints Card Reports no additional complaints Resp Reports no additional complaints GI Reports no additional complaints Reports no additional complaints Musc Reports no additional complaints Skin/Breast Reports system reviewed and no additional complaints, except as documented Neuro Reports no additional complaints Psych Reports no additional complaints Endo Reports no additional complaints Andre/Lymph Reports no additional complaints Aller/Immun Reports no additional complaints Physical Exam Vital Signs: Last Vital Signs Temp 97.4 F 01/01/24 10:16 Pulse 90 01/01/24 10:16 BP 118/66 01/01/24 10:16 Pulse Ox 96 01/01/24 10:16 Oxygen Delivery Method Room Air 01/01/24 10:16 BMI result Body Mass Index 35.4 Const Other: Vital signs reviewed. Constitutional: Non-toxic appearing. No acute distress. Well-developed and well-nourished. HEENT: Normocephalic and atraumatic. Skin: Warm and dry. There is an area of raw skin with an erythematous border and thick white drainage to the left inguinal area. No fluctuance or induration. Neck: Full and painless range of motion. Cardio: Regular rate and rhythm. No lower extremity edema. No JVD. Pulmonary: No respiratory distress. No accessory muscle usage. Gastrointestinal: Soft, nontender, and nondistended in all 4 quadrants. Musculoskeletal: Normal range of motion in joints throughout the body. No deformity or other signs of injury. Neuro: Alert and oriented x4. Cranial nerves 2-12 grossly intact. No focal deficits appreciated. Psych: Normal mood and affect. Assessment & Plan Assessment & Plan (1) Tinea cruris: Code(s): B35.6 - Tinea cruris Plan: 63-year-old male presenting to the walk-in clinic complaining of a rash to his left inguinal area. Physical exam is most consistent with tinea cruris. Patient given a prescription for ketoconazole cream. He was advised to follow up here for persistent or worsening symptoms. Medications: New ketoconazole 2% 1 appl topical DAILY 30 grams 0RF Coding Level of Care Code Est Pt Level 3 (48693) Diagnoses Tinea cruris B35.6
--- OUTSIDE RECORDS SUMMARY | 2024-01-01 10:16 | XMS_ITS | Patient Health Record ---
Author Organization [facility] liance [place] [address] Care Team Providers Care Shadow Graph Weight Operator Name Role Phone Luis Manuel Garcia Primary Care Provider Debbie Pedro Unavailable [phone] Clinical, Operations Unavailable Unavailable Suni Phillips Unavailable [phone] Cindi Parryzabeth Unavailable Genesis Walton Unavailable [phone] ALLERGIES No Known Allergies REASON FOR REFERRAL Reason Referral for half-way for diabetic medication and education. Diagnosis 1 Type 2 diabetes prem itus with unspecified complications (E11.8) Diagnosis 2 Polyneuropathy (G62. 9) Referring Provider First Name Operations Referring Provider Last Name Clinical Referring Provider Speciality Unknown Referred Provider [facility], [facility] Referred Provider Specialty Certified [facility] General Notes Member has been iban guerin his glucose levels multiple times a day and going to emergency room when the high. Member would benefit from half-way and education Referral Priority Routine Reason Referral for half-way for diabetic medication and education. Diagnosis 1 Type 2 diabetes prem itus with unspecified complications (E11.8) Diagnosis 2 Polyneuropathy (G62. 9) Referring Provider First Name Operations Referring Provider Last Name Clinical Referring Provider Speciality Unknown Referred Provider [facility], [facility] Referred Provider Specialty Certified [facility] General Notes Member has been chetaras truong his glucose levels multiple times a day and going to emergency room when the high. Member would benefit from half-way and education Referral Priority Routine Reason Referral for half-way for diabetic medication and education. Diagnosis 1 Type 2 diabetes prem itus with unspecified complications (E11.8) Diagnosis 2 Polyneuropathy (G62. 9) Referring Provider First Name Operations Referring Provider Last Name Clinical Referring Provider Speciality Unknown Referred Provider [employer] Referred Provider Specialty Certified [facility] General Notes Member has been chec truong his glucose levels multiple times a day and going to emergency room when the high. Member would benefit from half-way and education Referral Priority Routine MEDICATIONS Medication [...] Once a day Active Icy Hot Medicated [place] 16 % 1 application as needed Externally [...] meals Orally Three Times a Day Active Capriza 2 w/Device as directed for 99 days [...] (Fluzone) QIV, MDV Unknown 03/16/2021 Administe roz Proximiant (J&J) COVID-19 Vaccine IM Unknown 11/18/2020 Ad [...] Notes Problem Presbyopia (H52.4) Active confirmed 412 37102 Problem Hypertension (I10) Active confirmed 383 24140 Problem Type 2 diabetes mellitus with unspecified complications (E11.8) Active confirmed 84633927 Problem Schizoaffective disorder (F25.9) Active confirmed 02824595 Problem Pain in right knee (M25.561) Active confirmed 5267884994 Problem Other chronic pain (G89.29) Active confirmed 37927260 Problem Hypertensive chronic kidney disease with stage 1 through stage 4 chronic kidney disease, or unspecified chronic kidney disease (I12.9) Active confirmed 472637780652100 Problem Schizoaffective disorder, bipolar type (F25.0) Active confirmed 55662678 Problem Morbid obesity with BMI of 40.0-44.9, adult (E66.01) Active confirmed 887574370 Problem BPH (benign prostatic hyperplasia) (N40.0) Active confirmed Benign prostati c hyperplasia (697054408) Problem Pain in left knee (M25.562) Active confirmed 872034229424791 Problem Anxiety (F41.9) Active confirmed 089727 02 Problem Polyneuropathy (G62.9) Active confirmed 16423235 Problem Corns and callosities (L84) Active confirmed 329813653 Problem Myopia, bilateral (H52.13) Active confirmed 555214216889485 Problem Bilateral primary osteoarthritis of knee (M17.0) Active confirmed 034835807 Problem Pain in left foot (M79.672) Active confirmed 459508295017262 Problem Functional dyspepsia (K30) Active confirmed 9677390 Problem Melena (K92.1) Active confirmed 5038816 Problem Pain in right foot (M79.671) Active confirmed 23967783030488046 Problem Age-related nuclear cataract, bilateral (H25.13) Active confirmed 669514248216451 Problem Dermatochalasis of right upper eyelid (H02.831) Active confirmed 896170326968483 Problem Left anterior fascicular block (I44.4) Active confirmed 46322578 Problem Hypotension, unspecified hypotension type (I95.9) Active confirmed 00188677 Problem Erectile dysfunction, unspecified erectile dysfunction type (N52.9) Active confirmed 708441012 Problem Anxiety disorder, unspecified type (F41.9) Active confirmed 337886311 Problem Hyperlipidemia, unspecified hyperlipidemia type (E78.5) Active confirmed 07199362 Problem Chest pain, unspecified type (R07.9) Active confirmed 83746991 Problem Chronic idiopathic constipation (K59.04) Active confirmed 67462274 Problem Bilateral hearing loss, unspecified hearing loss type (H91.93) Active confirmed 23610655 Problem Noninfectious gastroenteritis, unspecified type (K52.9) Active confirmed 04907173 Problem Hepatic cirrhosis, unspecified hepatic cirrhosis type, unspecified whether ascites present (K74.60) Active confirmed 64059315 Problem Stage 3 chronic kidney disease, unspecified whether stage 3a or 3b CKD (N18.30) Active confirmed 213711916 Problem Lumbar pain (M54.50) Active confirmed 104198407 VITAL SIGNS Heart Rate 82 /min 10/16/2023 [...] temp. Encounters Encounter Location Date Provider Diagnosis [facility] (Closed) [address] [place] [address] 03/09/2023 Suni Phillips [facility] [address] [place] [address] [facility] [address] [facility] [address] [place] [address] 10/05/2023 Operations Clinical Type 2 diabetes mellitus [...] disease, or unspecified chronic kidney disease I12.9 FOR[facility]LY [facility] Primary Care [facility] [address] [facility] [address] [place] [address] 10/16/2023 Genesis LaFountain Type 2 diabetes mellitus with unspecified complications E11.8 ; Lumbar pain M54.50 ; Pain in left knee M25.562 ; Pain in right knee M25.561 ; Schizoaffective disorder, bipolar type F25.0 ; Anxiety disorder, unspecified type F41.9 and Bilateral hearing loss, unspecified hearing loss type H91.[address] [address] 06/29/2023 Genesis LaFountain Type 2 diabetes mellitus with unspecified complications E11.8 ; Acute bilateral low back pain, unspecified whether sciatica present M54.50 and Black tarry stools K92.[address] [address] 10/23/2023 Genesis LaFountain [address] [address] 02/28/2023 Genesis LaFountain Type 2 diabetes mellitus with unspecified complications E11.8 ; Schizoaffective disorder, bipolar type F25.0 ; Chronic idiopathic constipation K59.04 ; Anxiety disorder, unspecified type F41.9 and Hypotension, unspecified hypotension type I95.[address] [address] 03/14/2023 Genesis LaFountain Type 2 diabetes mellitus with unspecified complications E11.8 and Hypotension, unspecified hypotension type I95.[address] [address] 03/21/2023 Genesis LaFountain Type 2 diabetes mellitus with unspecified complications E11.8 ; Hypotension, unspecified hypotension type I95.9 and Pre-syncope R55 [address] [address] 03/27/2023 Genesis LaFountain Type 2 diabetes mellitus with unspecified complications E11.8 ; Hypotension, unspecified hypotension type I95.9 and Pain of toe of right foot M79.[address] [address] 04/12/2023 Genesis LaFountain Type 2 diabetes mellitus with unspecified complications E11.8 ; Hypotension, unspecified hypotension type I95.9 and Acute bilateral low back pain, unspecified whether sciatica present M54.[address] [address] 05/08/2023 Genesis LaFountain Type 2 diabetes mellitus with unspecified complications E11.8 ; Acute bilateral low back pain, unspecified whether sciatica present M54.50 and Black tarry stools K92.1 [facility] [address] [address] 07/17/2023 Genesis Walton Type 2 diabetes mellitus [...] Insured Coverage Start Date [facility]age End Date [facility] [place] [address] [id number] BASILIA BAIRD Self - patient is the insured [address] [address] [id number] BASILIA BAIRD Self - patient is the insured 3 8 MEDICAL (GENERAL) HISTORY Medical History History ICD Code DM II (Polyneuropathy) HTN Schizoaffective (Bipolar Type) Morbid Obesity BPH Constipation OA Chronic Pain Anxiety Bilateral Hearing Loss Hepatic Cirrhosis HLD Hospitalization History Reason Date(Month/Year) ED: ABD Pain, Constipation February 2023 [facility] [place] ED: Hyperglycemia 01/04/23
== END 2024-01-01 11:20 | disposition home or self-care (01) ==
PROVIDERS: PCP Internal Medicine; Visit Provider Physician Assistant Medical
DX: B35.6 Tinea cruris (principal)
CPT/HCPCS: 99213

== ENCOUNTER → 2024-01-04 12:44 | Outpatient (AMB) | payer OTHER, SELFPAY ==
--- OUTSIDE RECORDS SUMMARY | 2024-01-04 12:46 | XMS_ITS | Patient Health Record ---
Author Organization [facility] [place] [address] Care Team Providers Care Ref[employer] Name Role Phone Luis Manuel Garcia Primary Care Provider Debbie Pedro Unavailable [phone] Clinical, Operations Unavailable Unavailable Suni Phillips Unavailable [phone] Cindi Parryzabeth Unavailable Genesis Walton Unavailable [phone] ALLERGIES No Known Allergies REASON FOR REFERRAL Reason Referral for usp for diabetic medication and education. Diagnosis 1 Type 2 diabetes prem itus with unspecified complications (E11.8) Diagnosis 2 Polyneuropathy (G62. 9) Referring Provider First Name Operations Referring Provider Last Name Clinical Referring Provider Speciality Unknown Referred Provider Formerly [facility] Referred Provider Specialty Certified [facility] General Notes Member has been iban guerin his glucose levels multiple times a day and going to emergency room when the high. Member would benefit from usp and education Referral Priority Routine Reason Referral for usp for diabetic medication and education. Diagnosis 1 Type 2 diabetes prem itus with unspecified complications (E11.8) Diagnosis 2 Polyneuropathy (G62. 9) Referring Provider First Name Operations Referring Provider Last Name Clinical Referring Provider Speciality Unknown Referred Provider Formerly [facility] Referred Provider Specialty Certified [facility] General Notes Member has been chetaras truong his glucose levels multiple times a day and going to emergency room when the high. Member would benefit from usp and education Referral Priority Routine Reason Referral for usp for diabetic medication and education. Diagnosis 1 Type 2 diabetes prem itus with unspecified complications (E11.8) Diagnosis 2 Polyneuropathy (G62. 9) Referring Provider First Name Operations Referring Provider Last Name Clinical Referring Provider Speciality Unknown Referred Provider [employer] Referred Provider Specialty Certified [facility] General Notes Member has been chec truong his glucose levels multiple times a day and going to emergency room when the high. Member would benefit from usp and education Referral Priority Routine MEDICATIONS Medication [...] Once a day Active [employer] Medicated [place] 16 % 1 application as needed Externally [...] meals Orally Three Times a Day Active [employer] 2 w/Device as directed for 99 days [...] (Fluzone) QIV, MDV Unknown 03/16/2021 Administe [employer] ([employer] COVID-19 Vaccine IM Unknown 11/18/2020 Ad [...] Notes Problem Presbyopia (H52.4) Active confirmed 412 85604 Problem Hypertension (I10) Active confirmed 383 07487 Problem Type 2 diabetes mellitus with unspecified complications (E11.8) Active confirmed 84556585 Problem Schizoaffective disorder (F25.9) Active confirmed 69075849 Problem Pain in right knee (M25.561) Active confirmed 7081563519 Problem Other chronic pain (G89.29) Active confirmed 96047159 Problem Hypertensive chronic kidney disease with stage 1 through stage 4 chronic kidney disease, or unspecified chronic kidney disease (I12.9) Active confirmed 624320506624246 Problem Schizoaffective disorder, bipolar type (F25.0) Active confirmed 23836692 Problem Morbid obesity with BMI of 40.0-44.9, adult (E66.01) Active confirmed 312653034 Problem BPH (benign prostatic hyperplasia) (N40.0) Active confirmed Benign prostati c hyperplasia (494194361) Problem Pain in left knee (M25.562) Active confirmed 530762841479777 Problem Anxiety (F41.9) Active confirmed 649958 02 Problem Polyneuropathy (G62.9) Active confirmed 95926037 Problem Corns and callosities (L84) Active confirmed 764716038 Problem Myopia, bilateral (H52.13) Active confirmed 062185049673263 Problem Bilateral primary osteoarthritis of knee (M17.0) Active confirmed 303485398 Problem Pain in left foot (M79.672) Active confirmed 726999755392171 Problem Functional dyspepsia (K30) Active confirmed 5167674 Problem Melena (K92.1) Active confirmed 3200889 Problem Pain in right foot (M79.671) Active confirmed 07748289224835979 Problem Age-related nuclear cataract, bilateral (H25.13) Active confirmed 093287391792431 Problem Dermatochalasis of right upper eyelid (H02.831) Active confirmed 538272411967795 Problem Left anterior fascicular block (I44.4) Active confirmed 14708752 Problem Hypotension, unspecified hypotension type (I95.9) Active confirmed 36924085 Problem Erectile dysfunction, unspecified erectile dysfunction type (N52.9) Active confirmed 806562736 Problem Anxiety disorder, unspecified type (F41.9) Active confirmed 224282283 Problem Hyperlipidemia, unspecified hyperlipidemia type (E78.5) Active confirmed 60425132 Problem Chest pain, unspecified type (R07.9) Active confirmed 13417314 Problem Chronic idiopathic constipation (K59.04) Active confirmed 36566424 Problem Bilateral hearing loss, unspecified hearing loss type (H91.93) Active confirmed 08279306 Problem Noninfectious gastroenteritis, unspecified type (K52.9) Active confirmed 67769950 Problem Hepatic cirrhosis, unspecified hepatic cirrhosis type, unspecified whether ascites present (K74.60) Active confirmed 51794415 Problem Stage 3 chronic kidney disease, unspecified whether stage 3a or 3b CKD (N18.30) Active confirmed 729300268 Problem Lumbar pain (M54.50) Active confirmed 230728809 VITAL SIGNS Heart Rate 82 /min 10/16/2023 [...] temp. Encounters Encounter Location Date Provider Diagnosis [facility] (Closed) [address] [place] [address] 03/09/2023 Suni Phillips [facility] [address] [place] [address] [facility] [address] [facility] [address] [place] [address] 10/05/2023 Operations Clinical Type 2 diabetes mellitus [...] disease, or unspecified chronic kidney disease I12.9 [facility] Primary Care [facility] [address] [facility] [address] [place] [address] 10/16/2023 Genesis LaFountain Type 2 diabetes mellitus with unspecified complications E11.8 ; Lumbar pain M54.50 ; Pain in left knee M25.562 ; Pain in right knee M25.561 ; Schizoaffective disorder, bipolar type F25.0 ; Anxiety disorder, unspecified type F41.9 and Bilateral hearing loss, unspecified hearing loss type H91.[address] [address] 06/29/2023 Genesis LaFountain Type 2 diabetes mellitus with unspecified complications E11.8 ; Acute bilateral low back pain, unspecified whether sciatica present M54.50 and Black tarry stools K92.[address] [address] 10/23/2023 Genesis LaFountain [address] [address] 02/28/2023 Genesis LaFountain Type 2 diabetes mellitus with unspecified complications E11.8 ; Schizoaffective disorder, bipolar type F25.0 ; Chronic idiopathic constipation K59.04 ; Anxiety disorder, unspecified type F41.9 and Hypotension, unspecified hypotension type I95.[address] [address] 03/14/2023 Genesis LaFountain Type 2 diabetes mellitus with unspecified complications E11.8 and Hypotension, unspecified hypotension type I95.[address] [address] 03/21/2023 Genesis LaFountain Type 2 diabetes mellitus with unspecified complications E11.8 ; Hypotension, unspecified hypotension type I95.9 and Pre-syncope R55 [address] [address] 03/27/2023 Genesis LaFountain Type 2 diabetes mellitus with unspecified complications E11.8 ; Hypotension, unspecified hypotension type I95.9 and Pain of toe of right foot M79.[address] [address] 04/12/2023 Genesis LaFountain Type 2 diabetes mellitus with unspecified complications E11.8 ; Hypotension, unspecified hypotension type I95.9 and Acute bilateral low back pain, unspecified whether sciatica present M54.[address] [address] 05/08/2023 Genesis LaFountain Type 2 diabetes mellitus with unspecified complications E11.8 ; Acute bilateral low back pain, unspecified whether sciatica present M54.50 and Black tarry stools K92.1 [facility] [address] [address] 07/17/2023 Genesis Walton Type 2 diabetes mellitus [...] Insured Coverage Start Date [facility]age End Date [facility] [place] [address] [id number] BASILIA BAIRD Self - patient is the insured [address] [address] [id number] BASILIA BAIRD Self - patient is the insured 3 8 MEDICAL (GENERAL) HISTORY Medical History History ICD Code DM II (Polyneuropathy) HTN Schizoaffective (Bipolar Type) Morbid Obesity BPH Constipation OA Chronic Pain Anxiety Bilateral Hearing Loss Hepatic Cirrhosis HLD Hospitalization History Reason Date(Month/Year) ED: ABD Pain, Constipation February 2023 [facility] ED: Hyperglycemia 01/04/23
--- NOTE | 2024-01-04 12:56 | MHC.OFFWIV ---
Intake Vital Signs 01/04/24 12:57 Height 6 ft 1 in Weight 271 lb BMI 35.8 BP 120/72 Blood Pressure Location Lt brachial Position Sitting Pulse 86 Pulse Source Pulse Oximeter Temp 97.8 F Temp Source Temporal Artery Scan Pulse Oximetry (%) 96 Oxygen Delivery Method Room Air Intake Visit Reasons: EST/ back pain (lobby) Intake Note: pt is here today for back pain started 4 days ago Patient Tobacco Use Status: Former Tobacco user Allergies No Known Allergies [No Known Allergies*] Allergy (Verified 01/04/24 13:08) Do you need a note to return to daycare/school/sports/work: No HPI HPI Comments History of Present Illness Details 63 y/o male patient who presents to walk in clinic with c/o lower back pain x 4 days. Denies injury or trauma. Pain worse with movement. [facility] Medical History Colon cancer screening COVID-19 Pre-op examination Elevated LFTs Encounter for Medicare annual wellness exam Bowel obstruction Melena Knee pain, bilateral Gastroenteritis Healed wound Chronic idiopathic constipation Chronic idiopathic constipation Right hand pain Hospital discharge follow-up Knee osteoarthritis Pain in both feet Obesity (BMI 30-39.9) Schizoaffective disorder Pure hypercholesterolemia Benign essential hypertension Chronic kidney disease (CKD), stage III (moderate) Type 2 diabetes mellitus with diabetic chronic kidney disease Morbid obesity Dyslipidemia 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 mellitus 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 Diabetic polyneuropathy associated with 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 mellitus Schizo affective schizophrenia Diabetes type 2, uncontrolled Surgical History History of repair of congenital cleft palate Hx of circumcision Family History Father HTN (hypertension) Mother Diabetes Other Mental health problem Social History Household Members: None Housing: Apartment Are you a primary laboratory animal caretaker to a significant other at home: No Do you presently have visiting nurse or other home services: Yes Alcohol intake: former Patient Tobacco Use Status: Former Tobacco user Tobacco use type: Cigarette Cigarettes Per Day: 15 Years Smoked: 8 quit 30 years ago e-Cigarette/Vaping Use: Never Used Second Hand Smoke Exposure: No service: No Current occupational status: employed Current occupation: [employer] Cognitive needs: No Hearing needs: No Vision needs: Yes (glasses) Review of Systems Const All systems reviewed & are unremarkable except as noted in HPI and below Physical Exam Vital Signs: Last Vital Signs Temp 97.8 F 01/04/24 12:57 Pulse 86 01/04/24 12:57 BP 120/72 01/04/24 12:57 Pulse Ox 96 01/04/24 12:57 Oxygen Delivery Method Room Air 01/04/24 12:57 BMI result Body Mass Index 35.8 Const General: comfortable and no acute distress Nutritional Appearance: obese Orientation/consciousness: patient oriented x3 Back/Spine/Pelvis Back: back tenderness Thoracic/Lumbar Spine: thoracic and lumbar spine normal to inspection, thoraco-lumbar ROM normal and lumbar spinal tenderness at L4 and at L5 Neuro General: patient oriented x3, gait normal and moves all extremities Psych Speech and movement: Normal speech and movement present Assessment & Plan Assessment & Plan (1) Low back pain: Code(s): M54.50 - Low back pain, unspecified Qualifiers: Chronicity: acute Back pain laterality: midline Sciatica presence: without sciatica Qualified Code(s): M54.50 - Low back pain, unspecified Plan: - Acetaminophen for pain relief - Rest - IceHot Medications: New lidocaine 5% leave on most painful area for up to 12 hrs 1 patch topical DAILY 15 ea 0RF M54.50 - Low back pain, unspecified Changed From acetaminophen 500 mg PO Q6H PRN 20 tabs 0RF fever or pain M54.50 - Low back pain, unspecified To acetaminophen 1,000 mg (2 x 500 mg) PO Q6H PRN 30 tabs 0RF pain M54.50 - Low back pain, unspecified From cyclobenzaprine 10 mg PO TID PRN 10 tabs 0RF muscle spasm M54.50 - Low back pain, unspecified To cyclobenzaprine 10 mg PO DAILY PRN 10 tabs 0RF muscle spasm M54.50 - Low back pain, unspecified Coding Level of Care Code Est Pt Level 3 (33728) Diagnoses Acute midline low back pain without sciatica M54.50 Chronicity: acute Back pain laterality: midline Sciatica presence: without sciatica Time Spent (min) 15
[2024-01-04 12:57] VITALS: BP 120/72; PULSE 86; TEMP 36.6; O2SAT 96; BMI 35.8
== END ==
PROVIDERS: PCP Internal Medicine; Visit Provider Nurse Practitioner Family
DX: M54.50 Low back pain, unspecified (principal)
CPT/HCPCS: 99213

== ENCOUNTER → 2024-01-11 13:26 | Outpatient (BNVA) | payer OTHER, SELFPAY | PROVIDERS: PCP Internal Medicine; Visit Provider Nurse Practitioner ==

== ENCOUNTER 2024-01-15 12:10 | Outpatient (AMB) | payer OTHER, SELFPAY ==
[2024-01-15 13:51] VITALS: BP 110/70; PULSE 90; TEMP 36.6; O2SAT 96; BMI 32.5
--- NOTE | 2024-01-15 13:51 | MHC.OFFWIV ---
Intake Vital Signs 01/15/24 13:51 Height 6 ft 1 in Weight 246 lb BMI 32.5 BP 110/70 Blood Pressure Location Lt brachial Position Sitting Pulse 90 Temp 97.8 F Temp Source Temporal Artery Scan Pulse Oximetry (%) 96 Oxygen Delivery Method Room Air Intake Visit Reasons: EP fatigue loss of appetite cough sore throat Intake Note: pt is here today for fatigue loss of appetite cough sore throat started 1 week ago Patient Tobacco Use Status: Former Tobacco user Allergies No Known Allergies [No Known Allergies*] Allergy (Verified 01/15/24 15:05) Medication List - Last Reconciled 01/15/24 by Ed Oneil MD acetaminophen 1,000 mg (2 x 500 mg) PO Q6H PRN atorvastatin 10 mg PO DAILY benztropine 0.5 mg PO BID bisacodyl 10 mg (2 x 5 mg) PO BID blood sugar diagnostic (FreeStyle Lite Strips) Tests 5X/day blood-glucose meter (FreeStyle Lite Meter kit) Tests 4 X/day blood-glucose meter (FreeStyle Lite Meter kit) As directed cholecalciferol (vitamin D3) 25 mcg PO DAILY clozapine 100 mg PO TID cyclobenzaprine 10 mg PO DAILY PRN docusate sodium 100 mg PO BID empagliflozin (Jardiance) 25 mg PO QAM flash glucose scanning reader ([employer] Integration SoftwareStHaven Hill Homestead Jody 2 Elliott) As directed furosemide 20 mg PO DAILY gabapentin 300 mg PO BEDTIME 90 days hydroxyzine pamoate 50 mg PO TID PRN ibuprofen 800 mg PO Q8H PRN 30 days ketoconazole 2% 1 appl topical DAILY L.acidoph, paracasei,B. lactis (Digestive Advantage Advanced Probiotic) cells PO lancets (FreeStyle Lancets) Tests 5x/day lidocaine 5% 1 patch topical DAILY linaclotide (Linzess) 145 mcg PO QAM linaclotide (Linzess) 290 mcg PO QAM 30 days magnesium hydroxide (Milk of Magnesia) 10 mL PO BEDTIME PRN metformin 1,000 mg (2 x 500 mg) PO BID 90 days methylcellulose (laxative) (Fiber Therapy (methylcellulose)) 1,000 mg (2 x 500 mg) PO TID metoclopramide HCl 5 mg PO TID pen needle, diabetic (BD Ultra-Fine Original Pen Needle) As directed daily phenol-glycerin 1.5-33 % (Chloraseptic Max Sore Throat) 1 spray mucous membrane Q6-8H PRN polyethylene glycol 3350 (Miralax) 17 grams PO BID sennosides (senna) 17.2 mg (2 x 8.6 mg) PO BEDTIME sildenafil 50 mg PO DAILY PRN simethicone 180 mg PO TID Tresiba FlexTouch U-200 (insulin degludec) 30 units (0.15 mL) subcut DAILY 90 days NS Do you need a note to return to daycare/school/sports/work: No HPI EP fatigue loss of appetite cough sore throat HPI Details 63 yr old male presents to the office for a sick visit. Reports sx of cold and sinus congestion for a few days. No fevers or chills. No nausea or vomiting. [facility] Medical History (Updated 01/11/24 @ 14:38 by RAHUL Romero) Pain in both feet Calcaneal spur of right foot Achilles tendinitis Callus of foot Right hand pain Abdominal bloating Vertigo Impacted cerumen, right ear Calcaneal spur Colon cancer screening COVID-19 Pre-op examination Elevated LFTs Encounter for Medicare annual wellness exam Bowel obstruction Melena Knee pain, bilateral Gastroenteritis Healed wound Chronic idiopathic constipation Chronic idiopathic constipation Hospital discharge follow-up Knee osteoarthritis Obesity (BMI 30-39.9) Schizoaffective disorder Pure hypercholesterolemia Benign essential hypertension Chronic kidney disease (CKD), stage III (moderate) Type 2 diabetes mellitus with diabetic chronic kidney disease Morbid obesity Dyslipidemia 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 mellitus 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 Diabetic polyneuropathy associated with 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 mellitus Schizo affective schizophrenia Diabetes type 2, uncontrolled Surgical History History of repair of congenital cleft palate Hx of circumcision Family History Father HTN (hypertension) Mother Diabetes Other Mental health problem Social History Household Members: None Housing: Apartment Are you a primary home health caregiver to a significant other at home: No Do you presently have visiting nurse or other home services: Yes Alcohol intake: former Patient Tobacco Use Status: Former Tobacco user Tobacco use type: Cigarette Cigarettes Per Day: 15 Years Smoked: 8 quit 30 years ago e-Cigarette/Vaping Use: Never Used Second Hand Smoke Exposure: No service: No Current occupational status: employed Current occupation: [employer] Cognitive needs: No Hearing needs: No Vision needs: Yes (glasses) Physical Exam Vital Signs: Last Vital Signs Temp 97.8 F 01/15/24 13:51 Pulse 90 01/15/24 13:51 BP 110/70 01/15/24 13:51 Pulse Ox 96 01/15/24 13:51 Oxygen Delivery Method Room Air 01/15/24 13:51 BMI result Body Mass Index 32.5 Const General: cooperative and healthy appearing Nutritional Appearance: well nourished Orientation/consciousness: patient oriented x3 Limitations: no limitations HEENT Head: Yes normal to inspection Eyes General: appearance normal, both eyes and all related structures Neck Neck: Yes normal visual inspection Chest Chest palpation & inspection: normal palpation of entire chest wall Resp Effort & Inspection: normal respiratory effort Neuro General: patient oriented x3 Assessment & Plan Assessment & Plan (1) Upper respiratory tract infection: Code(s): J06.9 - Acute upper respiratory infection, unspecified Plan: Self limiting illness. Increase fluid intake. If sx not better to follow up here. Coding Level of Care Code Est Pt Level 3 (05481) Diagnoses Upper respiratory tract infection J06.9
--- OUTSIDE RECORDS SUMMARY | 2024-01-19 09:22 | XMS_ITS | Patient Health Record ---
Author Organization [facility] [place] [address] Care Team Providers Care Cuff Stitcher Name Role Phone Luis Manuel Garcia Primary Care Provider Debbie Pedro Unavailable [phone] Clinical, Operations Unavailable Unavailable Suni Phillips Unavailable [phone] Cindi Parryzabeth Unavailable Genesis Walton Unavailable [phone] ALLERGIES No Known Allergies REASON FOR REFERRAL Reason Referral for [facility] for diabetic medication and education. Diagnosis 1 Type 2 diabetes prem itus with unspecified complications (E11.8) Diagnosis 2 Polyneuropathy (G62. 9) Referring Provider First Name Operations Referring Provider Last Name Clinical Referring Provider Speciality Unknown Referred Provider [facility], [facility] Referred Provider Specialty Certified [facility] General Notes Member has been iban guerin his glucose levels multiple times a day and going to emergency room when the high. Member would benefit from [facility] and education Referral Priority Routine Reason Referral for [facility] for diabetic medication and education. Diagnosis 1 Type 2 diabetes prem itus with unspecified complications (E11.8) Diagnosis 2 Polyneuropathy (G62. 9) Referring Provider First Name Operations Referring Provider Last Name Clinical Referring Provider Speciality Unknown Referred Provider [facility], [facility] Referred Provider Specialty Certified [facility] General Notes Member has been chetaras truong his glucose levels multiple times a day and going to emergency room when the high. Member would benefit from [facility] and education Referral Priority Routine Reason Referral for [facility] for diabetic medication and education. Diagnosis 1 Type 2 diabetes prem itus with unspecified complications (E11.8) Diagnosis 2 Polyneuropathy (G62. 9) Referring Provider First Name Operations Referring Provider Last Name Clinical Referring Provider Speciality Unknown Referred Provider Visionnaire Referred Provider Specialty Certified [facility] General Notes Member has been chec truong his glucose levels multiple times a day and going to emergency room when the high. Member would benefit from [facility] and education Referral Priority Routine MEDICATIONS Medication [...] Once a day Active [employer] 16 % 1 application as needed Externally [...] meals Orally Three Times a Day Active [employer] 2 w/Device as directed for 99 days [...] (Fluzone) QIV, MDV Unknown 03/16/2021 Administe roz Blinkit (J&J) COVID-19 Vaccine IM Unknown 11/18/2020 Ad [...] Notes Problem Presbyopia (H52.4) Active confirmed 412 54324 Problem Hypertension (I10) Active confirmed 383 39183 Problem Type 2 diabetes mellitus with unspecified complications (E11.8) Active confirmed 55632214 Problem Schizoaffective disorder (F25.9) Active confirmed 53950832 Problem Pain in right knee (M25.561) Active confirmed 9507272519 Problem Other chronic pain (G89.29) Active confirmed 69055215 Problem Hypertensive chronic kidney disease with stage 1 through stage 4 chronic kidney disease, or unspecified chronic kidney disease (I12.9) Active confirmed 843283263574413 Problem Schizoaffective disorder, bipolar type (F25.0) Active confirmed 54977139 Problem Morbid obesity with BMI of 40.0-44.9, adult (E66.01) Active confirmed 277183695 Problem BPH (benign prostatic hyperplasia) (N40.0) Active confirmed Benign prostati c hyperplasia (470351585) Problem Pain in left knee (M25.562) Active confirmed 386932246951801 Problem Anxiety (F41.9) Active confirmed 373615 02 Problem Polyneuropathy (G62.9) Active confirmed 61635826 Problem Corns and callosities (L84) Active confirmed 117928859 Problem Myopia, bilateral (H52.13) Active confirmed 044822837803397 Problem Bilateral primary osteoarthritis of knee (M17.0) Active confirmed 462134097 Problem Pain in left foot (M79.672) Active confirmed 677653641760000 Problem Functional dyspepsia (K30) Active confirmed 1126457 Problem Melena (K92.1) Active confirmed 5772143 Problem Pain in right foot (M79.671) Active confirmed 29486509894784259 Problem Age-related nuclear cataract, bilateral (H25.13) Active confirmed 983641526355347 Problem Dermatochalasis of right upper eyelid (H02.831) Active confirmed 845899812829126 Problem Left anterior fascicular block (I44.4) Active confirmed 67333653 Problem Hypotension, unspecified hypotension type (I95.9) Active confirmed 22903106 Problem Erectile dysfunction, unspecified erectile dysfunction type (N52.9) Active confirmed 096475378 Problem Anxiety disorder, unspecified type (F41.9) Active confirmed 079823887 Problem Hyperlipidemia, unspecified hyperlipidemia type (E78.5) Active confirmed 26462096 Problem Chest pain, unspecified type (R07.9) Active confirmed 61458753 Problem Chronic idiopathic constipation (K59.04) Active confirmed 66077994 Problem Bilateral hearing loss, unspecified hearing loss type (H91.93) Active confirmed 57226933 Problem Noninfectious gastroenteritis, unspecified type (K52.9) Active confirmed 82460095 Problem Hepatic cirrhosis, unspecified hepatic cirrhosis type, unspecified whether ascites present (K74.60) Active confirmed 49886654 Problem Stage 3 chronic kidney disease, unspecified whether stage 3a or 3b CKD (N18.30) Active confirmed 235169183 Problem Lumbar pain (M54.50) Active confirmed 116984838 VITAL SIGNS Heart Rate 82 /min 10/16/2023 [...] temp. Encounters Encounter Location Date Provider Diagnosis [facility] (Closed) [address] [place] [address] 03/09/2023 Suni Phillips [facility] [address] [place] [address] [facility] [address] [facility] [address] [place] [address] 10/05/2023 Operations Clinical Type 2 diabetes mellitus [...] disease, or unspecified chronic kidney disease I12.9 [facility] Primary Care [facility] [address] [facility] [address] [place] [address] 10/16/2023 Genesis LaFountain Type 2 diabetes mellitus with unspecified complications E11.8 ; Lumbar pain M54.50 ; Pain in left knee M25.562 ; Pain in right knee M25.561 ; Schizoaffective disorder, bipolar type F25.0 ; Anxiety disorder, unspecified type F41.9 and Bilateral hearing loss, unspecified hearing loss type H91.[address] [address] 06/29/2023 Genesis LaFountain Type 2 diabetes mellitus with unspecified complications E11.8 ; Acute bilateral low back pain, unspecified whether sciatica present M54.50 and Black tarry stools K92.[address] [address] 10/23/2023 Genesis LaFountain [address] [address] 02/28/2023 Genesis LaFountain Type 2 diabetes mellitus with unspecified complications E11.8 ; Schizoaffective disorder, bipolar type F25.0 ; Chronic idiopathic constipation K59.04 ; Anxiety disorder, unspecified type F41.9 and Hypotension, unspecified hypotension type I95.[address] [address] 03/14/2023 Genesis LaFountain Type 2 diabetes mellitus with unspecified complications E11.8 and Hypotension, unspecified hypotension type I95.[address] [address] 03/21/2023 Genesis LaFountain Type 2 diabetes mellitus with unspecified complications E11.8 ; Hypotension, unspecified hypotension type I95.9 and Pre-syncope R55 [address] [address] 03/27/2023 Genesis LaFountain Type 2 diabetes mellitus with unspecified complications E11.8 ; Hypotension, unspecified hypotension type I95.9 and Pain of toe of right foot M79.[address] [address] 04/12/2023 Genesis LaFountain Type 2 diabetes mellitus with unspecified complications E11.8 ; Hypotension, unspecified hypotension type I95.9 and Acute bilateral low back pain, unspecified whether sciatica present M54.[address] [address] 05/08/2023 Genesis LaFountain Type 2 diabetes mellitus with unspecified complications E11.8 ; Acute bilateral low back pain, unspecified whether sciatica present M54.50 and Black tarry stools K92.1 [facility] [address] [address] 07/17/2023 Genesis Walton Type 2 diabetes mellitus [...] Test Name Order Date MDS assessment 04/25/2014 Next Appt Details Provider Name:Genesis Valero in, 01/25/2024 09:30:00 AM, [facility] [address], [place], [address], Insurance Providers Payer Name Payer Address Payer Phone Subscriber Number Group Number Insured Name Patient Relationship to Insured Coverage Start Date Coverage End Date [facility]ly [facility] [address] [phone] [id number] BASILIA BAIRD Self - patient is the insured 8 9 Formerly [facility] Care [place] [address] [phone] [id number] BASILIA BAIRD Self - patient is the insured 3 8 MEDICAL (GENERAL) HISTORY Medical History History ICD Code DM II (Polyneuropathy) HTN Schizoaffective (Bipolar Type) Morbid Obesity BPH Constipation OA Chronic Pain Anxiety Bilateral Hearing Loss Hepatic Cirrhosis HLD Hospitalization History Reason Date(Month/Year) ED: ABD Pain, Constipation [place] [facility] [place]
== END 2024-01-15 15:14 | disposition home or self-care (01) ==
PROVIDERS: PCP Internal Medicine; Visit Provider Internal Medicine
DX: J06.9 Acute upper respiratory infection, unspecified (principal)
CPT/HCPCS: 99213

== ENCOUNTER 2024-01-24 07:42 | Outpatient (REF) | payer OTHER, SELFPAY ==
[2024-01-24 07:53] LABS: MANUAL DIFF FLAG NO
[2024-01-24 08:31] LABS: Basophils Percent Auto 0.2 % (0-2); Hematocrit 44.8 % (42.0-52.0); Hemoglobin 15.9 g/dl (14.0-18.0); Imm Gran Abs Auto 0.06 X10*3/uL (0.00-0.03); Lymphocytes Absolute Auto 1.6 X10*3/uL (1.2-4.9); Lymphocytes Percent Auto 26.2 % (20-40); Mean Corpuscular HGB Conc 35.5 g/dl (31.0-36.0); Mean Corpuscular Hemoglobin 30.6 pg (27.0-33.0); Mean Corpuscular Volume 86.2 fL (80.0-98.0); Mean Platelet Volume 10.1 fL (9.4-12.4); Monocytes Absolute Auto 0.5 X10*3/uL (0.1-1.2); Monocytes Percent Auto 7.3 % (2-11); Neutrophils Absolute Auto 4.1 x10*3/uL (2.0-8.3); Neutrophils Percent Auto 65.3 % (45-73); Platelet Count 118 X10*3/uL (160-400); Red Cell Distribution Width 13.6 % (11.0-16.0); White Blood Count 6.3 X10*3/uL (4.8-10.8)
== END 2024-01-24 07:43 | disposition home or self-care (01) ==
LOC: HO.LABR 07:42
PROVIDERS: PCP Internal Medicine; Visit Provider Psychiatry & Neurology Psychiatry
DX: F25.0 Schizoaffective disorder, bipolar type (principal)
CPT/HCPCS: 36415; 85025

== ENCOUNTER 2024-02-08 12:33 | Outpatient (AMB) | payer OTHER, SELFPAY ==
--- NOTE | 2024-02-08 12:48 | MHC.OFFVIS ---
Vital Signs 02/08/24 13:02 Height 6 ft 1 in Weight 268 lb 8.368 oz BMI 35.4 BP 116/75 Blood Pressure Location Rt brachial Position Sitting Pulse 90 Intake Visit Reasons: follow up 4 weeks Intake Note: Mike returns to in office follow up of [facility]. CC: Patient reports feeling sluggish , last BM was 3-4 days ago per PT. He also reports having a cough for a few weeks. Patient also states I have a bad case of gas . Allergies No Known Allergies [No Known Allergies*] Allergy (Verified 02/08/24 13:08) HPI HPI follow up 4 weeks: Details: Assessment & Plan (1) Chronic idiopathic constipation: Code(s): K59.04 - Chronic idiopathic constipation Category: Medical (2) Delayed gastric emptying: Code(s): K30 - Functional dyspepsia Category: Medical (3) Schizoaffective disorder: Code(s): F25.9 - Schizoaffective disorder, unspecified Category: Medical Qualifiers: Schizoaffective disorder type: unspecified Qualified Code(s): F25.9 - Schizoaffective disorder, unspecified Medications: On Hold bisacodyl Hold Comment: Doctor's Order 10 mg (2 x 5 mg) PO BID 90 tabs 0RF K59.04 - Chronic idiopathic constipation Patient Instructions: Mike Cornejo I only want you to take these medications for your constipation. 1.Linzess 145mcg and milk of magnesia 2.Fiber 3 times a Casper want to see you back in 4 weeks. TODAY'S VISIT Taking the Linzess 145 micro g he still not moving his bowels very well. He uses the milk of magnesia but tries to use it sparingly because sometimes he will have overnight incontinence if he takes it and his insurance does not pay for it and has to buy [id number]. At this point I want him to use only the Linzess and will try increasing it back to 290 micro g. I specifically do not want him to take any other laxative medications as I think over use of too many laxatives what put him into this back and forth cycle. He also has very poor insight into regulating his diet. Continues on his fiber, his metoclopramide, and simethicone. I am unclear as to whether he has taking the Colace but I would like him to stop that as well. (however I did not specify this on his written handout) Return office visit in 6 weeks [facility] Medical History Acute diarrhea Pain in both feet Calcaneal spur of right foot Achilles tendinitis Callus of foot Right hand pain Abdominal bloating Vertigo Impacted cerumen, right ear Calcaneal spur Colon cancer screening COVID-19 Pre-op examination Elevated LFTs Encounter for Medicare annual wellness exam Bowel obstruction Melena Knee pain, bilateral Gastroenteritis Healed wound Chronic idiopathic constipation Chronic idiopathic constipation Hospital discharge follow-up Knee osteoarthritis Obesity (BMI 30-39.9) Schizoaffective disorder Pure hypercholesterolemia Benign essential hypertension Chronic kidney disease (CKD), stage III (moderate) Type 2 diabetes mellitus with diabetic chronic kidney disease Morbid obesity Dyslipidemia 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 mellitus jail (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 Diabetic polyneuropathy associated with 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 mellitus Schizo affective schizophrenia Diabetes type 2, uncontrolled Surgical History History of repair of congenital cleft palate Hx of circumcision Family History Father HTN (hypertension) Mother Diabetes Other Mental health problem Social History Household Members: None Housing: Apartment Are you a primary senior care provider to a significant other at home: No Do you presently have visiting nurse or other home services: Yes Alcohol intake: former Patient Tobacco Use Status: Former Tobacco user Tobacco use type: Cigarette Cigarettes Per Day: 15 Years Smoked: 8 quit 30 years ago e-Cigarette/Vaping Use: Never Used Second Hand Smoke Exposure: No service: No Current occupational status: employed Current occupation: [employer] Cognitive needs: No Hearing needs: No Vision needs: Yes (glasses) Review of Systems Const Denies fatigue, Denies fever(s), Denies night sweats, Denies poor appetite and Denies weight loss Eyes Details: Glasses Reports requires corrective lenses ENT Reports Normal hearing present, Denies dental pain, Denies dysphagia, Denies hearing loss, Denies mouth pain, Denies odynophagia, Denies throat swelling, Denies tongue swelling and Reports other (Dentition adequate) Card Reports no additional complaints Resp Reports no additional complaints GI Details: Denies abdominal pain, Denies melena, Denies bloating, Denies hematochezia, Reports constipation, Denies GI cramping, Denies dysphagia, Denies excessive flatus, Reports early satiety, Denies heartburn, Reports diarrhea, Denies nausea, Denies odynophagia, Denies vomiting and Denies hematemesis Skin/Breast Denies pruritus, Denies lesions, Denies rash and Denies jaundice Neuro Reports Normal hearing present and Denies Abnormal speech present Endo Denies fatigue Aller/Immun Denies throat swelling and Denies tongue swelling Physical Exam Vital Signs: Last Vital Signs Pulse 90 02/08/24 13:02 BP 116/75 02/08/24 13:02 BMI result Body Mass Index 35.4 Const General: cooperative, no acute distress, well developed and well groomed Nutritional Appearance: well nourished and obese Orientation/consciousness: oriented to person, oriented to place and oriented to time Limitations: No language barrier and other limitations HEENT Head: Yes normocephalic and Yes atraumatic Eyes General: appearance normal, both eyes and all related structures Pupils: Equal, round and reactive pupils present Neck Neck: Yes normal visual inspection and Yes no lymphadenopathy Thyroid: Thyroid normal Resp Effort & Inspection: normal respiratory effort and able to speak in complete sentences Auscultation: clear to auscultation bilaterally Cardio Rate: regular rate Rhythm: regular rhythm Heart sounds: Normal, physiologic split S2 sound present Peripheral pulses: radial pulses present and posterior tibial pulses present GI Inspection: No distended, Yes Abdominal panniculus present and Yes obesity Palpation (GI): Soft to palpation, nontender, no guarding, not rigid and No hepatosplenomegaly present Percussion: Yes normal to percussion Auscultation: normal bowel sounds Rectal Exam - Male: Yes deferred Skin General skin exam: no rashes or lesions noted, turgor normal, skin not dry, no jaundice, No spider nevi and no striae Rashes: no rashes Nails: normal Neuro General: oriented to person, oriented to place and oriented to time Cranial nerves: Yes Equal, round and reactive pupils present and Yes Normal hearing present Speech: No Abnormal speech present Extrem General: Yes normal to inspection, No clubbing, No cyanosis and No edema Psych Appearance: grossly normal and well kempt Mental Status: mental status grossly normal Speech and movement: Normal speech and movement present Affect: normal affect Attitude: cooperative Thought process: not confabulating and Impoverished thought process present Thought content: Normal thought content present Insight: Limited insight present (Psych) and Poor insight present (Psych) Judgement: Limited judgement present (Psych) and Poor judgement present (Psych) Assessment & Plan Assessment & Plan (1) Chronic idiopathic constipation: Code(s): K59.04 - Chronic idiopathic constipation Category: Medical (2) Delayed gastric emptying: Code(s): K30 - Functional dyspepsia Category: Medical Plan Taking the Linzess 145 micro g he still not moving his bowels very well. He uses the milk of magnesia but tries to use it sparingly because sometimes he will have overnight incontinence if he takes it and his insurance does not pay for it and has to buy [id number]. At this point I want him to use only the Linzess and will try increasing it back to 290 micro g. I specifically do not want him to take any other laxative medications as I think over use of too many laxatives what put him into this back and forth cycle. He also has very poor insight into regulating his diet. Continues on his fiber, his metoclopramide, and simethicone. I am unclear as to whether he has taking the Colace but I would like him to stop that as well. (however I did not specify this on his written handout) Return office visit in 6 weeks Medications: On Hold linaclotide (Linzess) Hold Comment: Doctor's Order 145 mcg PO QAM 30 caps 3RF K58.1 - Irritable bowel syndrome with constipation Resumed linaclotide (Linzess) 290 mcg PO QAM 30 days 30 caps 6RF K59.04 - Chronic idiopathic constipation Patient Instructions: Mike Cornejo 1.? Stop the Linzess 145mcg and start Linzess 290mcg. 2.? Do NOT take senna, bisacodyl, or Miralax 3.? Keep taking your fiber, metaclopramide, probiotic, simethicone 4.? Only use milk of magnesia as neededI want to see you in 6 weeks to see how you are doing Coding Level of Care Code Est Pt Level 3 (70864) Diagnoses Chronic idiopathic constipation K59.04 Delayed gastric emptying K30
[2024-02-08 13:02] VITALS: BP 116/75; PULSE 90; BMI 35.4
== END 2024-02-08 14:14 | disposition home or self-care (01) ==
PROVIDERS: PCP Internal Medicine; Visit Provider Nurse Practitioner
DX: K59.04 Chronic idiopathic constipation (principal); K30 Functional dyspepsia
CPT/HCPCS: 99213

== ENCOUNTER → 2024-02-08 12:33 | Outpatient (BNVA) | payer OTHER, SELFPAY | PROVIDERS: PCP Internal Medicine; Visit Provider Nurse Practitioner | DX: K59.04 Chronic idiopathic constipation (principal); K30 Functional dyspepsia | CPT/HCPCS: 99212 ==

== ENCOUNTER 2024-02-19 07:35 | Outpatient (REF) | payer OTHER, SELFPAY ==
[2024-02-19 07:57] LABS: MANUAL DIFF FLAG NO
[2024-02-19 08:08] LABS: Hematocrit 43.4 % (42.0-52.0); Hemoglobin 15.3 g/dl (14.0-18.0); Imm Gran Abs Auto 0.04 X10*3/uL (0.00-0.03); Imm Gran Pct Auto 0.5 % (0.0-0.4); Lymphocytes Absolute Auto 1.5 X10*3/uL (1.2-4.9); Lymphocytes Percent Auto 20.1 % (20-40); Mean Corpuscular HGB Conc 35.3 g/dl (31.0-36.0); Mean Corpuscular Hemoglobin 30.8 pg (27.0-33.0); Mean Corpuscular Volume 87.3 fL (80.0-98.0); Mean Platelet Volume 10.4 fL (9.4-12.4); Monocytes Absolute Auto 0.7 X10*3/uL (0.1-1.2); Monocytes Percent Auto 9.1 % (2-11); Neutrophils Absolute Auto 5.2 x10*3/uL (2.0-8.3); Neutrophils Percent Auto 70.3 % (45-73); Platelet Count 115 X10*3/uL (160-400); Red Blood Count 4.97 X10*6/uL (4.60-5.80); Red Cell Distribution Width 13.8 % (11.0-16.0); White Blood Count 7.4 X10*3/uL (4.8-10.8)
== END 2024-02-19 07:36 | disposition home or self-care (01) ==
LOC: HO.LABR 07:35
PROVIDERS: PCP Internal Medicine; Visit Provider Psychiatry & Neurology Psychiatry
DX: F25.0 Schizoaffective disorder, bipolar type (principal); Z79.899 Other long term (current) drug therapy
CPT/HCPCS: 36415; 85025

== ENCOUNTER 2024-03-07 15:04 | Emergency (ER) | payer OTHER, SELFPAY ==
--- NOTE | ~2024-03-07 | XR_ITS ---
EXAMINATION: XR ABDOMEN KUB CLINICAL INDICATION: Abdominal pain, constipation. COMPARISON: Abdomen CT from 02/25/2023 TECHNIQUE: AP view of the abdomen. FINDINGS: Large body habitus. Lung bases are unremarkable. Large amount of fecal material is present in the colon and rectum in this patient with a history of constipation. The visualized loops of bowel are in the normal size range. No evidence of pneumoperitoneum. No renal stones are seen. However, observation of small calculi would be difficult due to the bowel gas and fecal material. No acute osseous abnormality. XR/XR KUB IMPRESSION: Large amount fecal material in the colon is consistent with history of constipation. No evidence of bowel obstruction.
[2024-03-07 15:06] VITALS: BP 126/84; PULSE 86; RESP 16; TEMP 36.3; O2SAT 96; BMI 35.8
--- NOTE | 2024-03-07 15:07 | ED_ITS ---
HPI - General Adult General Chief complaint: Abdominal Pain Stated complaint: Abd pain, constipation Time Seen by Provider: 03/07/24 16:29 Source: patient Mode of arrival: ambulatory Limitations: no limitations History of Present Illness ED Provider: Dr. Hernández HPI narrative: patient with long history of constipation, presents with increased abdominal distention and discomfort. States it has been one week since he has had a good BM Onset (ago): week(s) Related Data Home Medications ?Medication ?Instructions ?Recorded ?Confirmed hydroxyzine pamoate 50 mg capsule 50 mg PO TID PRN Anxiety 09/18/20 12/26/23 benztropine 0.5 mg tablet 0.5 mg PO BID 04/29/22 12/26/23 L.acidoph, paracasei,B. lactis 10 cell PO 05/12/22 12/26/23 billion cell capsule (Digestive Advantage Advanced Probiotic) clozapine 100 mg tablet 100 mg PO TID 05/12/22 12/26/23 magnesium hydroxide 400 mg/5 mL 10 ml PO BEDTIME PRN 01/11/24 oral suspension (Milk of Magnesia) Previous Rx's ?Medication ?Instructions ?Recorded sildenafil 50 mg tablet 50 mg PO DAILY PRN sexual activity 08/11/22 #10 tabs polyethylene glycol 3350 17 gram 17 g PO BID #30 ea 08/12/22 oral powder packet (Miralax) sennosides 8.6 mg tablet (senna) 17.2 mg (2 x 8.6 mg) PO BEDTIME 02/24/23 for constipation #60 tabs blood-glucose meter (FreeStyle #1 ea 03/27/23 Lite Meter kit) flash glucose scanning reader #1 ea 04/10/23 (FreeStyle Jody 2 [place]) pen needle, diabetic 29 gauge x #100 ea 05/12/23 1/2 (BD Ultra-Fine Original Pen Needle) Tresiba FlexTouch U-200 200 30 unit (0.15 mL) subcut DAILY 90 07/03/23 unit/mL (3 mL) subcutaneous pen days #9 mL (insulin degludec) phenol 1.5 %-glycerin 33 % mucosal 1 spray mucous membrane Q6-8H PRN 09/03/23 spray (Chloraseptic Max Sore sore throat #118 mL Throat) lancets 28 gauge (FreeStyle #100 ea 09/14/23 Lancets) docusate sodium 100 mg capsule 100 mg PO BID #60 caps 10/19/23 methylcellulose (laxative) 500 mg 1,000 mg (2 x 500 mg) PO TID #180 10/19/23 tablet (Fiber Therapy tabs (methylcellulose)) simethicone 180 mg capsule 180 mg PO TID #90 caps 10/19/23 blood-glucose meter (FreeStyle #1 ea 10/20/23 Lite Meter kit) metformin 500 mg tablet 1,000 mg (2 x 500 mg) PO BID 90 11/01/23 days #360 tabs gabapentin 300 mg capsule 300 mg PO BEDTIME 90 days #90 caps 11/03/23 furosemide 20 mg tablet 20 mg PO DAILY #90 tabs 11/21/23 blood sugar diagnostic (FreeStyle #100 ea 12/18/23 Lite Strips) cholecalciferol (vitamin D3) 25 25 mcg PO DAILY #90 caps 12/21/23 mcg (1,000 unit) capsule ketoconazole 2 % topical cream 1 appl topical DAILY #30 grams 01/01/24 bisacodyl 5 mg tablet,delayed 10 mg (2 x 5 mg) PO BID #90 tabs 01/02/24 release acetaminophen 500 mg tablet 1,000 mg (2 x 500 mg) PO Q6H PRN 01/04/24 pain #30 tabs atorvastatin 10 mg tablet 10 mg PO DAILY #90 tabs 01/04/24 cyclobenzaprine 10 mg tablet 10 mg PO DAILY PRN muscle spasm 01/04/24 #10 tabs lidocaine 5 % topical patch 1 patch topical DAILY #15 ea 01/04/24 linaclotide 145 mcg capsule 145 mcg PO QAM #30 caps 01/10/24 (Linzess) ibuprofen 800 mg tablet 800 mg PO Q8H PRN for pain 30 days 01/30/24 #90 tabs linaclotide 290 mcg capsule 290 mcg PO QAM 30 days #30 caps 02/08/24 (Linzess) empagliflozin 25 mg tablet 25 mg PO QAM #30 tabs 02/12/24 (Jardiance) metoclopramide HCl 5 mg tablet 5 mg PO TID #90 tabs 03/05/24 lactulose 20 gram/30 mL oral 20 g (30 mL) PO BID #2,880 mL 03/07/24 solution psyllium seed (sugar) oral powder 1 tsp PO BID #1,254 grams 03/07/24 (Metamucil (sugar) oral powder) Allergies Allergy/AdvReac Type Severity Reaction Status Date / Time No Known Allergies Allergy Verified 03/07/24 15:07 [No Known Allergies*] Review of Systems 2 Review of Systems: Yes all other systems are reviewed and are negative Neurologic: Denies Sensory deficit (Neuro) [facility] Past Medical History Medical History Acute diarrhea Pain in both feet Calcaneal spur of right foot Achilles tendinitis Callus of foot Right hand pain Abdominal bloating Vertigo Impacted cerumen, right ear Calcaneal spur Colon cancer screening COVID-19 Pre-op examination Elevated LFTs Encounter for Medicare annual wellness exam Bowel obstruction Melena Knee pain, bilateral Gastroenteritis Healed wound Chronic idiopathic constipation Chronic idiopathic constipation Hospital discharge follow-up Knee osteoarthritis Obesity (BMI 30-39.9) Schizoaffective disorder Pure hypercholesterolemia Benign essential hypertension Chronic kidney disease (CKD), stage III (moderate) Type 2 diabetes mellitus with diabetic chronic kidney disease Morbid obesity Dyslipidemia 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 mellitus FPC (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 Diabetic polyneuropathy associated with 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 mellitus Schizo affective schizophrenia Diabetes type 2, uncontrolled Surgical History History of repair of congenital cleft palate Hx of circumcision Family History Family History Father HTN (hypertension) Mother Diabetes Other Mental health problem Social History Social History Household Members: None Housing: Apartment Are you a primary primary care md to a significant other at home: No Do you presently have visiting nurse or other home services: Yes Alcohol intake: former Patient Tobacco Use Status: Former Tobacco user Tobacco use type: Cigarette Cigarettes Per Day: 15 Years Smoked: 8 quit 30 years ago e-Cigarette/Vaping Use: Never Used Second Hand Smoke Exposure: No service: No Current occupational status: employed Current occupation: [employer] Cognitive needs: No Hearing needs: No Vision needs: Yes (glasses) Physical Exam ED Vital Signs: Vital Signs - 24 hr 03/07/24 15:06 Temperature 97.4 F Pulse Rate 86 Respiratory Rate 16 Blood Pressure 126/84 Pulse Oximetry 96 Oxygen Delivery Method Room Air BMI result Body Mass Index 35.8 Const Other: obese male with blunted affect in no acute distress Orientation/consciousness: oriented to person and patient oriented x3 Limitations: no limitations HENMT Head: Yes normal to inspection Ears: external ears normal General nose exam: Normal external nose present Mouth: Normal oral and palatal mucosa present and oropharynx normal Throat: Yes posterior oropharynx normal Eyes General: appearance normal, both eyes and all related structures Neck Neck: Yes normal visual inspection Chest Chest palpation & inspection: normal inspection of the chest Resp Auscultation: clear to auscultation bilaterally Cardio Jugular venous distension: no JVD Rate: regular rate Rhythm: regular rhythm Heart sounds: S1 normal heart sound present and S2 normal heart sound present GI Other: obese, nontender General: Yes no CVA tenderness Back/Spine/Pelvis Back: no CVA tenderness Skin General skin exam: no rashes or lesions noted Neuro General: oriented to person and patient oriented x3 Cranial nerves: Yes CN's II-XII intact bilaterally Motor exam (neuro): 5/5 motor strength present throughout Sensory Exam: No Sensory deficit (Neuro) Extrem General: Yes normal to inspection Psych Appearance: grossly normal Course Course Course Narrative: This is a rapid medical exam performed by Romelia Gonzales NP: Additional HPI, ROS, PE not included below will be deferred to primary provider. Patient is a 63-year-old male with history of chronic idiopathic constipation, hearing impairment, T2DM, delayed gastric emptying, schizoaffective d/o, CKD presenting to the ED with constipation for a few days. Took MOM with one normal BM. 3/10 abdominal pain. Still passing gas. Plan: labs, UA, KUB Reevaluation(s) Reevaluation #1: patient with constipation, no obstruction on KUB, will place on lactulose and metamucil and dc home Time: 17:50 Medications Administered Discontinued Medications Generic Name Dose Route Start Last Admin Trade Name Freq PRN Reason Stop Dose Admin Lactulose 30 gm 03/07/24 16:34 03/07/24 16:42 Lactulose 20 Gm/30 Ml Solution PO 03/07/24 16:35 30 gm ONCE ONE Administration Medical Decision Making Differential Diagnosis Differential Diagnoses: The differential diagnosis associated with the presentation includes (bowel obstruction, constipation, fecal impaction) Admission/Observation Consideration of admission/observation: Escalation of care including admission/observation considered (upon arrival patient was considered for admission) Lab Data 03/07/24 16:53 03/07/24 16:53 Labs: Lab Results 03/07/24 Range/Units 16:53 WBC 7.5 (4.8-10.8) X10*3/uL RBC 5.11 (4.60-5.80) X10*6/uL Hgb 15.4 (14.0-18.0) g/dl Hct 43.8 (42.0-52.0) % MCV 85.7 (80.0-98.0) fL MCH 30.1 (27.0-33.0) pg MCHC 35.2 (31.0-36.0) g/dl RDW 13.2 (11.0-16.0) % Plt Count 122 L (160-400) X10*3/uL MPV 9.8 (9.4-12.4) fL Immature Gran % (Auto) 0.7 H (0.0-0.4) % Neut % (Auto) 71.1 (45-73) % Lymph % (Auto) 21.6 (20-40) % [place] % (Auto) 6.5 (2-11) % Eos % (Auto) 0.0 (0-4) % Baso % (Auto) 0.1 (0-2) % Lymph # (Auto) 1.6 (1.2-4.9) X10*3/uL [place] # (Auto) 0.5 (0.1-1.2) X10*3/uL Eos # (Auto) 0.0 (0.0-0.4) X10*3/uL Baso # (Auto) 0.0 (0.0-0.2) X10*3/uL Abs Immat Gran (auto) 0.05 H (0.00-0.03) X10*3/uL Absolute Neuts (auto) 5.3 (2.0-8.3) x10*3/uL Absolute Nucleated RBC 0.000 (0.0-0.012) X10*3/uL Nucleated RBC % (auto) 0.0 (0.0-0.2) /100WBC Sodium 144 (135-145) mmol/L Potassium 4.1 (3.3-5.1) mmol/L Chloride 109 H (96-108) mmol/L Carbon Dioxide 23 (22-29) mmol/L Anion Gap 16 (12-20) BUN 21 H (9-16) mg/dL Creatinine 1.34 (0.5-1.4) mg/dL Estim Creat Clear Calc 79.6 Estimated GFR 54 Random Glucose 111 (60-115) mg/dL Calcium 10.0 (8.4-10.2) mg/dL Total Bilirubin 0.5 (0.0-1.0) mg/dL AST 19 (5-37) U/L ALT 37 (0-40) U/L Alkaline Phosphatase 109 (39-117) U/L Total Protein 7.5 (6.5-8.0) g/dL Albumin 4.4 (3.5-5.0) g/dL Independent Interpretation I performed an independent interpretation of an: Plain X-Ray (no obstruction, constipation) Tests considered The following testing was considered but not selected: CT of abdomen considered but patient has soft nonfocal abdominal exam Chronic Conditions Patient?s care impacted by: Hypertension and Other (schizoaffective disorder) Social Determinants Patient?s care significantly limited by Social Determinants of Health including: Other Social Determinant of Health (psychiatric illness) Discharge Plan Discharge Clinical Impression: Constipation Patient Disposition: Home, Self-Care Instructions: Constipation (ED), High Fiber Diet (ED) Additional Instructions: take lactulose three times a day until you have diarrhea. Then start metamucil twice a day for ever Prescriptions: New lactulose 20 gram/30 mL solution 20 g PO BID Qty: 2880 0RF Metamucil (sugar) Powder 1 tsp PO BID Qty: 1254 0RF No Action (DME) blood-glucose meter [FreeStyle Lite Meter] Kit See Rx Instructions .Route Qty: 1 5RF Rx Instructions: Tests 4 X/day (DME) FreeStyle Jody 2 [place] Misc See Rx Instructions .ROUTE .MEDSUPPLY Qty: 1 1RF Rx Instructions: As directed Tresiba FlexTouch U-200 200 unit/mL (3 mL) insulin pen 30 unit subcut DAILY 90 Days Qty: 9 3RF (DME) lancets [FreeStyle Lancets] 28 gauge misc See Rx Instructions .Route Qty: 100 4RF Rx Instructions: Tests 5x/day (DME) blood-glucose meter [FreeStyle Lite Meter] Kit See Rx Instructions .ROUTE .MEDSUPPLY Qty: 1 0RF Rx Instructions: As directed metformin 500 mg tablet 1,000 mg PO BID 90 Days Qty: 360 1RF gabapentin 300 mg capsule 300 mg PO BEDTIME 90 Days Qty: 90 1RF furosemide 20 mg tablet 20 mg PO DAILY Qty: 90 1RF (DME) FreeStyle Lite Strips Strip See Rx Instructions .Route Qty: 100 5RF Rx Instructions: Tests 5X/day cholecalciferol (vitamin D3) 25 mcg (1,000 unit) capsule 25 mcg PO DAILY Qty: 90 12RF bisacodyl 5 mg tablet,delayed release (DR/EC) 10 mg PO BID Qty: 90 0RF Hold Instructions: Doctor's Order atorvastatin 10 mg tablet 10 mg PO DAILY Qty: 90 0RF Linzess 145 mcg capsule 145 mcg PO QAM Qty: 30 3RF Hold Instructions: Doctor's Order Rx Instructions: Take first thing in the morning with a full glass of water. ibuprofen 800 mg tablet 800 mg PO Q8H PRN (Reason: for pain) 30 Days Qty: 90 0RF Rx Instructions: take with food Linzess 290 mcg capsule 290 mcg PO QAM 30 Days Qty: 30 6RF Hold Instructions: Doctor's Order Jardiance 25 mg tablet 25 mg PO QAM Qty: 30 3RF metoclopramide HCl 5 mg tablet 5 mg PO TID Qty: 90 0RF benztropine 0.5 mg tablet 0.5 mg PO BID Chloraseptic Max Sore Throat 1.5-33 % spray,non-aerosol 1 spray mucous membrane Q6-8H PRN (Reason: sore throat) Qty: 118 0RF Rx Instructions: leave on area for 15 seconds then spit out hydroxyzine pamoate 50 mg capsule 50 mg PO TID PRN (Reason: Anxiety) sildenafil 50 mg tablet 50 mg PO DAILY PRN (Reason: sexual activity) Qty: 10 0RF Rx Instructions: administer 30 minutes to 4 hours before activity (DME) pen needle, diabetic [BD Ultra-Fine Orig Pen Needle] 29 gauge x 1/2 needle See Rx Instructions .ROUTE DAILY Qty: 100 3RF Rx Instructions: As directed daily ketoconazole 2 % cream 1 appl topical DAILY Qty: 30 0RF acetaminophen 500 mg tablet 1,000 mg PO Q6H PRN (Reason: pain) Qty: 30 0RF cyclobenzaprine 10 mg tablet 10 mg PO DAILY PRN (Reason: muscle spasm) Qty: 10 0RF lidocaine 5 % adhesive patch,medicated 1 patch topical DAILY Qty: 15 0RF Rx Instructions: leave on most painful area for up to 12 hrs clozapine 100 mg tablet 100 mg PO TID Digestive Advantage Advanced 10 billion cell capsule PO polyethylene glycol 3350 [Miralax] 17 gram powder in packet 17 g PO BID Qty: 30 6RF Hold Instructions: Doctor's Order sennosides [senna] 8.6 mg tablet 17.2 mg PO BEDTIME Qty: 60 6RF Hold Instructions: Doctor's Order Fiber Therapy (m-cellulose) 500 mg tablet 1,000 mg PO TID Qty: 180 5RF simethicone 180 mg capsule 180 mg PO TID Qty: 90 6RF docusate sodium 100 mg capsule 100 mg PO BID Qty: 60 6RF magnesium hydroxide [Milk of Magnesia] 400 mg/5 mL suspension 10 ml PO BEDTIME PRN Interventions: ED Discharge Assessment Last Done: 03/07/24 17:59 Discharge Date/Time: 03/07/24 18:05 Print Language: Micronesian
--- OUTSIDE RECORDS SUMMARY | 2024-03-07 16:16 | XMS_ITS ---
Author Organization [facility] Address [address] [place] [id number] Care Team Providers Care Service Person Name Role Phone Jose RENAE Adel Primary Care Provider Unava ilable Tu Pierre Unavailable [phone] REASON FOR VISIT RN NEUROLOGY PPWK Entered Encounters Encounter Location Date Provider Diagnosis [address] [address] 01/04/2024 Tu Pierre PLAN OF TREATMENT Next Appt Details Provider Name:Tu Pierre , 03/08/2024 11:30:00 AM, [address] [place], [address],
--- OUTSIDE RECORDS SUMMARY | 2024-03-07 16:17 | XMS_ITS ---
Author Organization [facility] Address [address] [place] [address] Care Team Providers Care Physics Technician Name Role Phone Luis Manuel Garcia Primary Care Provider Debbie Pedro Unavailable [phone] Genesis Walton Unavailable [phone] ALLERGIES No Known Allergies REASON FOR VISIT Wellness Visit MEDICATIONS Medication SIG (Take, Route, Frequency, Duration) Notes Start Date End Date Status Benztropine Mesylate 0.5 MG 1 tablet Orally Twice a Day Active Icy Hot Medicated [place] 16 % 1 application as needed Externally Three times a day For knee pain Active Ibuprofen 800 MG 1 tablet with food or milk as needed Orally every 8 hrs Active Gabapentin 300 MG 1 capsule Orally Once a day Active Probiotic 1-250 BILLION-MG as directed Orally Daily Active Clozapine 100 MG 3 tablets Orally once a day at bedtime Active Gentle Laxative 5 MG 1 tablet in the morning, 2 at night Orally BID Not-Taking Tylenol 325 MG 2 tabletsas needed Orally every 8 hours PRN pain Not-Taking hydrOXYzine Pamoate 50 MG 1 Capsule Orally Three Times a Day - PRN Active cloZAPine 100 MG 1 tablet Orally once a day in am Active Sennosides 8.6 MG 2 tablets at bedtime Orally Daily - PRN Member does not have currently. Not-Taking Cholecalciferol 25 MCG (1000 UT) 1 capsule Orally Once a day Active Simethicone 180 MG 1 Capsule after meals Orally Three Times a Day - PRN Active Furosemide 20 MG 1 tablet Orally Once a day Active Atorvastatin Calcium 10 MG 1 tablet Orally at bedtime every day Active Fiber Therapy 500 MG 2 tablets with [...] empty stomach Orally Once a day Active OneTouch Lancets - As Directed To Skin Three times a day for 30 days Type 2 Diabetes Mellitus with unspecified complications - E11.8 Active Metoclopramide HCl 5 MG 1 tablet before meals Orally Three Times a Day Active OneTouch Ultra 2 w/Device as directed for 99 days Type 2 Diabetes Mellitus with unspecified complications - E11.8 Active OneTouch Ultra Test Strips - As Directed To Skin Three times a day for 30 days Type 2 Diabetes Mellitus with unspecified complications - E11.8 Active Tresiba FlexTouch 100 UNIT/ML 30 units Subcutaneous Once a Day Active metFORMIN HCl 500 MG 2 tablets with a meal Orally Twice a day Active Bisacodyl EC 5 MG 1 tablet in the AM and x2 in the PM Orally Once a day Active Jardiance 25 MG 1 tablet Orally Once a day Active VITAL SIGNS Blood pressure systolic 117 mm Hg 10/16/19 24 Blood pressure diastolic 82 mm Hg 024 Heart Rate 82 /min 10/16/2023 Respiratory Rate 16 /min 10/16/2023 Weight 264.6 lbs 10/16/2023 Oximetry 98 % 10/16/2023 Weight-kg 120.02 kg 10/16/2023 Pain: 1/10 in lower back. AP C's thermometer not working at visit, unable to check temp. Encounters Encounter Location Date Provider Diagnosis [facility] Primary Care [address] [address] 10/16/2023 Genesis Anton Type 2 diabetes mellitus with unspecified complications E11.8 ; Lumbar pain M54.50 ; Pain in left knee M25.562 ; Pain in right knee M25.561 ; Schizoaffective disorder, bipolar type F25.0 ; Anxiety disorder, unspecified type F41.9 and Bilateral hearing loss, unspecified hearing loss type H91.93 ASSESSMENTS Encounter Date Diagnosis Assessment Notes Treatment Notes Treatment Clinical Notes 10/16/2023 Type 2 diabetes mellitus with unspecified [...] concerns or worsening symptoms, please contact PCP/APC 10/16/2023 Pain in left knee (ICD-10 - M25.562) 10/16/2023 Pain in right knee (ICD-10 - M25.561) 10/16/2023 Schizoaffective disorder, bipolar type (ICD-10 - [...] Anxiety disorder, unspecified type (ICD-10 - F41.9) 10/16/2023 Bilateral hearing loss, unspecified hearing loss type (ICD-10 - H91.93) Chronic/Stable - Please continue to monitor. - Please F/U with PCP in November 2023 and discuss concerns with hearing loss and audiology referral. - For any concerns or worsening symptoms, please contact PCP/APC PLAN OF TREATMENT Medication Medication Name Sig Start Date Stop Date Notes Benztropine Mesylate 0.5 MG 1 tablet Orally Twice a Day Icy Hot Medicated [place] 16 % 1 application as needed Externally Three times a day For knee pain Ibuprofen 800 MG 1 tablet with food or milk as needed Orally every 8 hrs Gabapentin 300 MG 1 capsule Orally Once a day Clozapine 100 MG 3 tablets Orally once a day at bedtime hydrOXYzine Pamoate 50 MG 1 Capsule Orally Three Times a Day - PRN cloZAPine 100 MG 1 tablet Orally once a day in am OneTouch Lancets - As Directed To Skin Three times a day for 30 days Type 2 Diabetes Mellitus with unspecified complications - E11.8 Metoclopramide HCl 5 MG 1 tablet before meals Orally Three Times a Day OneTouch Ultra 2 w/Device as directed for 99 days Type 2 Diabetes Mellitus with unspecified complications - E11.8 OneTouch Ultra Test Strips - As Directed To Skin Three times a day for 30 days Type 2 Diabetes Mellitus with unspecified complications - E11.8 Tresiba FlexTouch 100 UNIT/ML 30 units Subcutaneous Once a Day metFORMIN HCl 500 MG 2 tablets with a meal Orally Twice a day Jardiance 25 MG 1 tablet Orally Once a day Treatment Notes Assessment Notes Type 2 diabetes mellitus wit h unspecified complications Chronic/Stable Member unsure of most recent A1C Member's Average POC: Day 7: 190 Day 17: 208 Day 30: 206 Most recent POC: 235 Lumbar pain Chronic/Stable Pain in Left Knee - M25.562 Pain in RIght Knee - M25.561 Schizoaffective disorder, bipolar type Chronic/Stable Anxiety Disorder, unspecified type - F41.9 Bilateral hearing loss, unsp ecified hearing loss type Chronic/Stable Next Appt Details Follow Up: 3 Months,raleighn, Ila son: Quarterly Wellness Visit Progress Notes * Examination Category Sub-Category Detail Notes Old-General Examination GENERAL APPEARANCE: aler t, pleasant, in no acute distress HEAD: normocephalic, atrau matic EYES: extraocular movement full and smooth, conjunctiva clear, upper eyelids normal, lower eyelids normal, conjunctiva clear EARS: Small amount of earw ax more so in right than left ear. Both ear drums pearly white with light reflex present.No external deformities. NOSE: nares patent, nose w ithout external redness or drainage HEART: regular rate and rhy thm, S1, S2 normal, no murmurs, rubs, gallops, no peripheral edema, peripheral pulses palpable. LUNGS: Clear to auscultatio n bilaterally. No wheezes, rales, rhonchi, no accessory muscle use, no respiratory distress, Breathing comfortably and speaking in full sentences without evident tachypnea or signs of respiratory distress. No nasal flaring, no audible wheezing, stridor, or cough ABDOMEN: bowel sounds present , soft, nontender throughout to palpation, nondistended, no guarding or rigidity, no masses palpable. NEUROLOGIC: alert and oriented, able to follow simple and some complex commands. SKIN: (+) Potential wart o n lower half of left index. no rashes, no suspicious lesions, warm and dry EXTREMITIES: no clubbing, cyanosi s, or edema PSYCH: cooperative with exa m, good eye contact, judgement and insight good, mood/affect full range, thought content without suicidal ideation, delusions MOBILITY Independent, ambulat ory. History and Physical Notes * HPI (History of Present Illness) Category Sub-Category Detail Notes COVID-19 Screening (Question s Revised 12/16/2019) COVID-19 Screening Member or any household memb er has any new or worsening breathing problems:: No Member or any household memb er has other general or non-respiratory symptoms:: No Member or any household memb er has been in close contact with anyone diagnosed or suspected case of COVID:: No General Visit Information Encounter Information: Other(s) present at the visit:: No Length of Visit (total time spent):: 50 minutes
--- OUTSIDE RECORDS SUMMARY | 2024-03-07 16:17 | XMS_ITS | Patient Health Record ---
Author Organization [facility] Address [address] [place] [address] Care Team Providers Care Landing Support Specialist Name Role Phone Jose RENAE, Luis Manuel Primary Care Provider Tu Ch Unavailable [phone] REASON FOR REFERRAL No Information SOCIAL HISTORY Tobacco Use: Social History Observation Description Date Details (start date - stop date) Former Smoker NA - NA Sex Assigned At : Social History Observation Description Sex Assigned At Unknown Tobacco Use/Smoking Question Answer Notes Are you a: former smoker Additional Findings: Tobacco Non-User Current no n-smoker Alcohol Screen Question Answer Notes Did you have a drink containing alcohol in the p ast year? No Points 0 Interpretation Negative Tobacco use other than smoking: Question Answer Notes Are you an other tobacco user? No Encounters Encounter Location Date Provider Diagnosis [facility] [address] [place] [address] 01/04/2024 Tu Pierre PLAN OF TREATMENT Next Appt Details Provider Name:Tu Pierre , 03/08/2024 11:30:00 AM, [address] [place], [address], Insurance Providers Payer Name Payer Address Payer Phone Subscriber Number Group Number Insured Name Patient Relationship to Insured Coverage Start Date Coverage End Date [facility] [place] [employer] Claims [address] [place] [id number] [id number] Mike Cornejo Self - patient is the insured MEDICAL (GENERAL) HISTORY Medical History History ICD Code Diabetic
--- OUTSIDE RECORDS SUMMARY | 2024-03-07 16:17 | XMS_ITS ---
Author Organization [facility] Address [address] [place] [address] Care Team Providers Care Silverlight Developer Name Role Phone Luis Manuel Garcia Primary Care Provider Debbie Pedro Unavailable [phone] Genesis Walton Unavailable [phone] REASON FOR VISIT Quarterly Wellness Visit MEDICATIONS Medication SIG (Take, Route, Frequency, Duration) Notes Start Date End Date Status Diabetic Tussin Chest/Congest 100 MG/5ML as directed Orally Member taking PRN for cold he has had for the last 1.5 weeks, improving. Active Furosemide 20 MG 1 tablet Orally Once a day Active Cyclobenzaprine HCl 10 MG 1 tablet at bedtime as needed Orally Once a day PRN Active Lidocaine 5 % 1 patch remove after 12 hours Externally Once a day To back Active Tylenol Extra Strength 500 MG 1 tablet as needed Orally every 6 hrs Active Ibuprofen 800 MG 1 tablet with food or milk as needed Orally every 8 hrs Active Tylenol 325 MG 2 tabletsas needed Orally every 8 hours PRN pain Not-Taking Gentle Laxative 5 MG 1 tablet in the morning, 2 at night Orally BID Not-Taking Gabapentin 300 MG 1 capsule Orally Once a day Active Icy Hot Medicated Lavinia 16 % 1 application as needed Externally Three times a day On right heel Active Benztropine Mesylate 0.5 MG 1 tablet Orally Twice a Day Active Sennosides 8.6 MG 2 tablets at bedtime Orally Daily - PRN Member does not have currently. Not-Taking hydrOXYzine Pamoate 50 MG 1 Capsule Orally Three Times a Day - PRN Active Bisacodyl EC 5 MG 1 tablet in the AM and x2 in the PM Orally Once a day Not-Taking Clozapine 100 MG 3 tablets Orally once a day at bedtime Active cloZAPine 100 MG 1 tablet Orally once a day in am Active Probiotic 1-250 BILLION-MG as directed Orally Daily Not-Taking Atorvastatin Calcium 10 MG 1 tablet Orally at bedtime every day Active Simethicone 180 MG 1 Capsule after meals Orally Three Times a Day - PRN Active Cholecalciferol 25 MCG (1000 UT) 1 capsule Orally Once a day Active Linzess 145 MCG 1 capsule at least 30 minutes before the first meal of the day on an empty stomach Orally Once a day Active metFORMIN HCl 500 MG 2 tablets with a meal Orally Twice a day Active Milk of Magnesia 1200 MG/15ML 5 ml at least 4 hours between doses Orally at bedtime. Member takes 20mL total usually for BM Active Tresiba FlexTouch 100 UNIT/ML 30 units Subcutaneous Once a Day Active Metoclopramide HCl 5 MG 1 tablet before meals Orally Three Times a Day Active OneTouch Lancets - As Directed To Skin Three times a day for 30 days Type 2 Diabetes Mellitus with unspecified complications - E11.8 Active Docusate Sodium 100 MG 1 Capsule Orally Twice a Day - PRN Active Jardiance 25 MG 1 tablet Orally Once a day Active viblastTouch Ultra Test Strips - As Directed To Skin Three times a day for 30 days Type 2 Diabetes Mellitus with unspecified complications - E11.8 Active Fiber Therapy 500 MG 2 tablets with a full glass of water as needed Orally three times a day Active viblast[employer] Ultra 2 w/Device as directed for 99 days Type 2 Diabetes Mellitus with unspecified complications - E11.8 Active Blood Pressure Monitor Automatic - as directed; please provided automatic BP cuff for arm with both NORMAL and LARGE cuff. PRN for 99 days I10- Hypertension 01/25/2024 Active Acidophilus 10 MG as directed Orally Active VITAL SIGNS Temperature 97.2 degrees Fahrenheit 01/25/20 24 Blood pressure systolic 110 mm Hg 01/25/20 24 Blood pressure diastolic 86 mm Hg 024 Heart Rate 82 /min 01/25/2024 Respiratory Rate 16 /min 01/25/2024 Oximetry 99 % 01/25/2024 Encounters Encounter Location Date Provider Diagnosis [facility] Primary Care - [address] [address] 01/25/2024 Genesis Walton Type 2 diabetes mellitus with unspecified complications E11.8 ; Lumbar pain M54.50 ; Pain in left knee M25.562 ; Pain in right knee M25.561 ; Schizoaffective disorder, bipolar type F25.0 ; Anxiety disorder, unspecified type F41.9 ; Impaired skin integrity R23.9 ; Bone spur of right foot M77.51 and Hypertension I10 ASSESSMENTS Encounter Date Diagnosis Assessment Notes Treatment Notes Treatment Clinical Notes 01/25/2024 Type 2 diabetes mellitus with unspecified complications (ICD-10 - E11.8) Chronic/Stable Member's A1c at today's visit was 6.7% Member's Average POC: Day 7: 151 Day 14: 169 Day 30: 179 Most recent POC: 116 - Please continue with Diabetic Medication Regimen. - Please continue to take POC 3x/day and as needed (S&S of low or high blood sugar). - Please continue with dietary changes as they have had a positive impact on your POCs. - Educated on importance of eating a low sugar, diabetic diet. - Please continue to F/U with PCP. - Please continue with bloodwork (A1C, Renal Function) as appropriate. -For any concerns or worsening conditions, please contact PCP/APC. 01/25/2024 Lumbar pain (ICD-10 - M54.50) Chronic/Stable Pain in Left Knee - M25.562 Pain in Right Knee - M25.561 - Please continue with Pain management regimen. - Educated member on both pharmacological and non-pharmacological pain interventions. - Please F/U with PCP. - For any concerns or worsening symptoms, please contact PCP/APC 01/25/2024 Pain in left knee (ICD-10 - M25.562) 01/25/2024 Pain in right knee (ICD-10 - M25.561) 01/25/2024 Schizoaffective disorder, bipolar type (ICD-10 - F25.0) Chronic/Stable Anxiety Disorder, unspecified type - F41.9 - Please continue with Psychiatric Medications. - Please continue to F/U with psychiatry & therapy. - For any thoughts of harming yourself or others, please reach out to PCP/APC. If actively suicidal, please call EMS. - For any concerns or worsening symptoms, please contact PCP/APC. 01/25/2024 Anxiety disorder, unspecified type (ICD-10 - F41.9) 01/25/2024 Impaired skin integrity (ICD-10 - R23.9) Acute/Stable - Please continue to monitor. - Please try and use triple antibiotic ointment again and keep areas CDI. - For any signs of infection, (redness, swelling, pain, foul odor, drainage), please reach out to PCP. - For any concerns or worsening symptoms, please contact PCP/APC 01/25/2024 Bone spur of right foot (ICD-10 - M77.51) Acute/Stable - Please continue to monitor. - Please see Podiatry on 02/05 for further evaluation. - For any concerns or worsening symptoms, please contact PCP/APC 01/25/2024 Hypertension (ICD-10 - I10) Chronic/Stable - Please continue with Cardiac medication. - Educated member on importance of following a heart healthy, low salt diet. - Please continue with physical activity as tolerated. - [facility] ordered BP cuff per member request. Please check daily 60 min after taking BP medications for best results. - For SBP greater than 175, please contact PCP or [facility] - Please continue with lab work (Renal Function, Lipid Panel) as appropriate. - For severe, sudden chest pain that does not improve with rest, please contact EMS. - For any concerns or worsening symptoms, please contact PCP/APC. PLAN OF TREATMENT Medication Medication Name Sig Start Date Stop Date Notes Furosemide 20 MG 1 tablet Orally Once a day Cyclobenzaprine HCl 10 MG 1 tablet at be dtime as needed Orally Once a day PRN Lidocaine 5 % 1 patch remove after 12 hours Externally Once a day To back Tylenol Extra Strength 500 MG 1 tablet as needed Orally every 6 hrs Ibuprofen 800 MG 1 tablet with food o r milk as needed Orally every 8 hrs Gabapentin 300 MG 1 capsule Orally Onc e a day Icy Hot Medicated Lavinia 16 % 1 application as needed Externally Three times a day On right heel Benztropine Mesylate 0.5 MG 1 tablet Orally Twice a Day hydrOXYzine Pamoate 50 MG 1 Capsule Oral ly Three Times a Day - PRN Clozapine 100 MG 3 tablets Orally onc e a day at bedtime cloZAPine 100 MG 1 tablet Orally once a day in am metFORMIN HCl 500 MG 2 tablets with a me al Orally Twice a day Tresiba FlexTouch 100 UNIT/ML 30 units Subcutaneous Once a Day Metoclopramide HCl 5 MG 1 tablet before meals Orally Three Times a Day Jardiance 25 MG 1 tablet Orally Once a day Blood Pressure Monitor Automatic - as directed; please provided automatic BP cuff for arm with both NORMAL and LARGE cuff. PRN for 99 days 01/25/2024 I10- Hypertension Treatment Notes Assessment Notes Type 2 diabetes mellitus wit h unspecified complications Chronic/Stable Member's A1c at today's visit was 6.7% Member's Average POC: Day 7: 151 Day 14: 169 Day 30: 179 Most recent POC: 116 Lumbar pain Chronic/Stable Pain in Left Knee - M25.562 Pain in Right Knee - M25.561 Schizoaffective disorder, bipolar type Chronic/Stable Anxiety Disorder, unspecified type - F41.9 Impaired skin integrity Acute/Stable Bone spur of right foot Acute/Stable Hypertension Chronic/Stable Next Appt Details Follow Up: 3 Months,prn, [place] son: Quarterly Wellness Visit Progress Notes * [...] palpable. LUNGS: Clear to auscultatio n bilaterally. Dim posteriorly. No wheezes, rales, rhonchi, no accessory muscle [...] simple and some complex commands. SKIN: (+) Scabbing on left second toe at DIP joint area, 1cmX0.75cm. No signs of infection/drainage, appears to be healing well. No warmth, erythema, swelling. Surrounding skin CDI. (+) Scabbing on right second toe at DIP joint area, 1cmX0.5cm. No signs of infection/drainage, appears to be healing well. No warmth, erythema, swelling. Surrounding skin CDI. (+) Potential wart on lower half of left index. no rashes, no suspicious lesions, warm and dry EXTREMITIES: no clubbing, cyanosi s, or edema PSYCH: cooperative with exa m, good eye contact, judgement and insight good, mood/affect full range, thought content without suicidal ideation, delusions MOBILITY Independent, ambulat ory. Diabetes Mellitus Does patient have DM?: Yes ?Is patient's A1c < 8%?: Yes January 24 24: 6.7% History and Physical Notes * HPI (History [...] No Length of Visit (total time spent):: 55 minutes
--- OUTSIDE RECORDS SUMMARY | 2024-03-07 16:17 | XMS_ITS | Patient Health Record ---
Author Organization [facility] [place] [address] Care Team Providers Care Director Of Communications Name Role Phone Luis Manuel Garcia Primary Care Provider UnavailDebbie Solitario Unavailable [phone] Clinical, Operations Unavailable Unavailable Suni Phillips Unavailable [phone] Cindi Parryzabeth Unavailable [phone] Genesis Walton Unavailable [phone] ALLERGIES No Known Allergies RESULTS Component Value Reference Range Notes Hemoglobin A1C - IN-HOUSE Reviewed date:01/25/2024 01:01:56 PM Interpretation: Performing Lab: Notes/Report: Hemoglobin A1C 6.7 4 - 5 % REASON FOR REFERRAL No Information MEDICATIONS Medication SIG (Take, Route, Frequency, Duration) Notes Start Date End Date Status Linzess 145 MCG 1 capsule at least 30 minutes before the first meal of the day on an empty stomach Orally Once a day Active Milk of Magnesia 1200 MG/15ML 5 ml at least 4 hours between doses Orally at bedtime. Member takes 20mL total usually for BM Active Diabetic Tussin Chest/Congest 100 MG/5ML as directed Orally Member taking PRN for cold he has had for the last 1.5 weeks, improving. Active Docusate Sodium 100 MG 1 Capsule Orally Twice a Day - PRN Active Fiber Therapy 500 MG 2 tablets with a full glass of water as needed Orally three times a day Active Ibuprofen 800 MG 1 tablet with food or milk as needed Orally every 8 hrs Active Benztropine Mesylate 0.5 MG 1 tablet Orally Twice a Day Active hydrOXYzine Pamoate 50 MG 1 Capsule Orally Three Times a Day - PRN Active Clozapine 100 MG 3 tablets Orally once a day at bedtime Active cloZAPine 100 MG 1 tablet Orally once a day in am Active Furosemide 20 MG 1 tablet Orally Once a day Active OneTouch Ultra 2 w/Device as directed for 99 days Type 2 Diabetes Mellitus with unspecified complications - E11.8 Active Metoclopramide HCl 5 MG 1 tablet before meals Orally Three Times a Day Active Cyclobenzaprine HCl 10 MG 1 tablet at bedtime as needed Orally Once a day PRN Active Probiotic 1-250 BILLION-MG as directed Orally Daily Not-Taking Lidocaine 5 % 1 patch remove after 12 hours Externally Once a day To back Active Atorvastatin Calcium 10 MG 1 tablet Orally at bedtime every day Active Tylenol Extra Strength 500 MG 1 tablet as needed Orally every 6 hrs Active Acidophilus 10 MG as directed Orally Active Simethicone 180 MG 1 Capsule after meals Orally Three Times a Day - PRN Active Icy Hot Medicated [place] 16 % 1 application as needed Externally Three times a day On right heel Active Cholecalciferol 25 MCG (1000 UT) 1 capsule Orally Once a day Active OneTouch Lancets - As Directed To Skin Three times a day for 30 days Type 2 Diabetes Mellitus with unspecified complications - E11.8 Active Tylenol 325 MG 2 tabletsas needed Orally every 8 hours PRN pain Not-Taking OneTouch Ultra Test Strips - As Directed To Skin Three times a day for 30 days Type 2 Diabetes Mellitus with unspecified complications - E11.8 Active Gentle Laxative 5 MG 1 tablet in the morning, 2 at night Orally BID Not-Taking Sennosides 8.6 MG 2 tablets at bedtime Orally Daily - PRN Member does not have currently. Not-Taking Bisacodyl EC 5 MG 1 tablet in the AM and x2 in the PM Orally Once a day Not-Taking metFORMIN HCl 500 MG 2 tablets with a meal Orally Twice a day Active Tresiba FlexTouch 100 UNIT/ML 30 units Subcutaneous Once a Day Active Jardiance 25 MG 1 tablet Orally Once a day Active Gabapentin 300 MG 1 capsule Orally Once a day Active Blood Pressure Monitor Automatic - as directed; please provided automatic BP cuff for arm with both NORMAL and LARGE cuff. PRN for 99 days I10- Hypertension 01/25/2024 Active IMMUNIZATIONS Vaccine Route Administration Date Status Comme nts COVID-19 COMIRNATY Vaccine, Fall 2022, SARS-CoV-2 virus strain Gwenicron XBB.1.5 Unknown 07/03/2023 Administered COVID-19, mRNA, LNP-S, bival ent booster, PF, 30 mcg/0.3 mL Unknown 08/04/2022 Administered Flu Vac (Fluzone /Alfuria) QIV PFS Unknown 03/29/2022 A dministered Flu Vac (Fluzone /Alfuria) QIV PFS Unknown 04/04/2023 A dministered Flu Vac (Fluzone) QIV, MDV Unknown 03/16/2021 Administe [employer] ([employer]) COVID-19 Vaccine IM Unknown 11/18/2020 Ad [...] Notes Problem Presbyopia (H52.4) Active confirmed 412 94101 Problem Hypertension (I10) Active confirmed 383 18614 Problem Type 2 diabetes mellitus with unspecified complications (E11.8) Active confirmed 26734119 Problem Schizoaffective disorder (F25.9) Active confirmed 01147121 Problem Pain in right knee (M25.561) Active confirmed 1269859962 Problem Other chronic pain (G89.29) Active confirmed 57057116 Problem Hypertensive chronic kidney disease with stage 1 through stage 4 chronic kidney disease, or unspecified chronic kidney disease (I12.9) Active confirmed 685098162606313 Problem Schizoaffective disorder, bipolar type (F25.0) Active confirmed 21707817 Problem Morbid obesity with BMI of 40.0-44.9, adult (E66.01) Active confirmed 253943856 Problem BPH (benign prostatic hyperplasia) (N40.0) Active confirmed Benign prostati c hyperplasia (548434431) Problem Pain in left knee (M25.562) Active confirmed 048678602469575 Problem Anxiety (F41.9) Active confirmed 181743 02 Problem Polyneuropathy (G62.9) Active confirmed 01544121 Problem Corns and callosities (L84) Active confirmed 173920907 Problem Myopia, bilateral (H52.13) Active confirmed 689516578429623 Problem Bilateral primary osteoarthritis of knee (M17.0) Active confirmed 445389846 Problem Pain in left foot (M79.672) Active confirmed 906214256233684 Problem Functional dyspepsia (K30) Active confirmed 3812784 Problem Melena (K92.1) Active confirmed 0628819 Problem Pain in right foot (M79.671) Active confirmed 94251149998592306 Problem Age-related nuclear cataract, bilateral (H25.13) Active confirmed 492837744264871 Problem Dermatochalasis of right upper eyelid (H02.831) Active confirmed 705802795728601 Problem Left anterior fascicular block (I44.4) Active confirmed 35973544 Problem Hypotension, unspecified hypotension type (I95.9) Active confirmed 83109131 Problem Erectile dysfunction, unspecified erectile dysfunction type (N52.9) Active confirmed 223325959 Problem Anxiety disorder, unspecified type (F41.9) Active confirmed 207324758 Problem Hyperlipidemia, unspecified hyperlipidemia type (E78.5) Active confirmed 46047560 Problem Chest pain, unspecified type (R07.9) Active confirmed 71965526 Problem Chronic idiopathic constipation (K59.04) Active confirmed 04521808 Problem Bilateral hearing loss, unspecified hearing loss type (H91.93) Active confirmed 16765335 Problem Noninfectious gastroenteritis, unspecified type (K52.9) Active confirmed 31140552 Problem Hepatic cirrhosis, unspecified hepatic cirrhosis type, unspecified whether ascites present (K74.60) Active confirmed 80999560 Problem Stage 3 chronic kidney disease, unspecified whether stage 3a or 3b CKD (N18.30) Active confirmed 957319547 Problem Lumbar pain (M54.50) Active confirmed 904293017 VITAL SIGNS Heart Rate 82 /min 01/25/2024 Temperature 97.2 degrees Fahrenheit 01/25/2024 Respiratory Rate 16 /min 01/25/2024 Blood pressure diastolic 86 mm Hg 01/25/2024 Oximetry 99 % 01/25/2024 Weight-kg 120.02 kg 10/16/2023 Pain: 08/23 in lower back. APC's thermometer not working at visit, unable to check temp. Blood pressure systolic 110 mm Hg 01/25/2024 Weight 264.6 lbs 10/16/2023 Pain: 08/23 in lower back. APC's thermometer not working at visit, unable to check temp. Encounters Encounter Location Date Provider Diagnosis [facility] (Closed) [address] [place] [address] 03/09/2023 Suni Phillips [facility] [address] [place] [address] [facility] [address] [place] [address] 10/05/2023 Operations Clinical Type 2 diabetes mellitus [...] disease, or unspecified chronic kidney disease I12.[address] [address] 10/16/2023 Genesis LaFountain Type 2 diabetes mellitus with unspecified complications E11.8 ; Lumbar pain M54.50 ; Pain in left knee M25.562 ; Pain in right knee M25.561 ; Schizoaffective disorder, bipolar type F25.0 ; Anxiety disorder, unspecified type F41.9 and Bilateral hearing loss, unspecified hearing loss type H91.[address] [address] 01/25/2024 Genesis LaFountain Type 2 diabetes mellitus with unspecified complications E11.8 ; Lumbar pain M54.50 ; Pain in left knee M25.562 ; Pain in right knee M25.561 ; Schizoaffective disorder, bipolar type F25.0 ; Anxiety disorder, unspecified type F41.9 ; Impaired skin integrity R23.9 ; Bone spur of right foot M77.51 and Hypertension I10 [address] [address] 06/29/2023 Genesis LaFountain Type 2 diabetes mellitus with unspecified complications E11.8 ; Acute bilateral low back pain, unspecified whether sciatica present M54.50 and Black tarry stools K92.[address] [address] 10/23/2023 Genesis LaFountain [address] [address] 03/14/2023 Genesis LaFountain Type 2 diabetes mellitus with unspecified complications E11.8 and Hypotension, unspecified hypotension type I95.[address] [address] 03/21/2023 [facility] Type 2 diabetes mellitus with unspecified complications E11.8 ; Hypotension, unspecified hypotension type I95.9 and Pre-syncope R55 [address] [address] 03/27/2023 [facility] Type 2 diabetes mellitus with unspecified complications E11.8 ; Hypotension, unspecified hypotension type I95.9 and Pain of toe of right foot M79.[address] [address] 04/12/2023 [facility] Type 2 diabetes mellitus with unspecified complications E11.8 ; Hypotension, unspecified hypotension type I95.9 and Acute bilateral low back pain, unspecified whether sciatica present M54.[address] [address] 05/08/2023 [facility] Type 2 diabetes mellitus with unspecified complications E11.8 ; Acute bilateral low back pain, unspecified whether sciatica present M54.50 and Black tarry stools K92.[address] [address] 07/17/2023 [facility] Type 2 diabetes mellitus with unspecified complications E11.8 ; Acute bilateral low back pain, unspecified whether sciatica present M54.50 ; Injury of nail bed of toe S99.929A ; Chronic idiopathic constipation K59.04 ; Chronic diarrhea of unknown origin K52.9 and Hearing trouble, bilateral H91.93 ASSESSMENTS Encounter Date Diagnosis Assessment Notes Treatment Notes Treatment Clinical Notes 03/14/2023 Type 2 diabetes mellitus with unspecified [...] Please continue to monitor. - For any dizziness/weakness/l ightheadedness that does no improve, call [facility]. - Please slowly change positions to decrease dizziness/lightheade dness occuring. - Ensure you are drinking enough [...] Please continue to monitor. - For any dizziness/weakness/l ightheadedness that does no improve, call [facility]. - Please slowly change positions to decrease dizziness/lightheade dness occuring. - Ensure you are drinking enough [...] or worsening conditions, please contact PCP/APC. 01/25/2024 Type 2 diabetes mellitus with unspecified [...] or worsening symptoms, please contact PCP/APC 10/16/2023 Lumbar pain (ICD-10 - M54.50) Chronic/Stable [...] Please continue to monitor. - For any dizziness/weakness/l ightheadedness that does no improve, call [facility]. - Please slowly change positions to decrease dizziness/lightheade dness occuring. - Ensure you are drinking enough fluids to maintain your BP. - Please F/U with PCP if symptoms of hypotension continue/do not improve. - For any concerns or worsening symptoms, please contact PCP/APC. 03/27/2023 Hypotension, unspecified hypotension type (ICD-10 - I95.9) Chronic/Stable Member's SBP 102 at visit, asymptomatic. - Please continue to monitor. - For any dizziness/weakness/l ightheadedness that does no improve, call [facility]. - Please slowly change positions to decrease dizziness/lightheade dness occuring. - Ensure you are drinking enough fluids to maintain your BP. - Please F/U with PCP if symptoms of hypotension continue/do not improve. - For any concerns or worsening symptoms, please contact PCP/APC. 03/21/2023 Pre-syncope (ICD-10 - R55) 03/27/2023 Pain of toe of right foot (ICD-10 - M79.674) Acute/Stable - Please continue to monitor second right toe; for worsening pain/changes in toe (bruising/swelling/d arkening of toe) please contact PCP or [facility]. [...] or worsening symptoms, please contact PCP/APC 06/29/2023 Black tarry stools (ICD-10 - K92.1) [...] knee (ICD-10 - M25.562) 01/25/2024 Pain in left knee (ICD-10 - M25.562) 10/16/2023 Pain in right knee (ICD-10 - M25.561) 01/25/2024 Pain in right knee (ICD-10 - [...] BPH (benign prostatic hyperplasia) (ICD-10 - N40.0) 01/25/2024 Schizoaffective disorder, bipolar type (ICD-10 - F25.0) Chronic/Stable Anxiety Disorder, unspecified type - F41.9 - Please continue with Psychiatric Medications. - Please continue to F/U with psychiatry & therapy. - For any thoughts of harming yourself or others, please reach out to PCP/APC. If actively suicidal, please call EMS. - For any concerns or worsening symptoms, please contact PCP/APC. 10/16/2023 Schizoaffective disorder, bipolar type (ICD-10 - [...] disorder, unspecified type (ICD-10 - F41.9) 10/16/2023 Anxiety disorder, unspecified type (ICD-10 - [...] or worsening symptoms, please contact PCP/APC 01/25/2024 Impaired skin integrity (ICD-10 - R23.9) [...] 10/05/2023 Chronic idiopathic constipation (ICD-10 - K59.04) 01/25/2024 Hypertension (ICD-10 - I10) Chronic/Stable - [...] or worsening symptoms, please contact PCP/APC. 10/05/2023 Bilateral primary osteoarthritis of knee (ICD-10 [...] Insured Coverage Start Date Coverage End Date [address] [phone] [id number] BASILIA BAIRD Self - patient is the insured [address] [phone] [id number] BASILIA BAIRD Self - patient is the insured 3 8 MEDICAL (GENERAL) HISTORY Medical History History ICD Code DM II (Polyneuropathy) HTN Schizoaffective (Bipolar Type) Morbid Obesity BPH Constipation OA Chronic Pain Anxiety Bilateral Hearing Loss Hepatic Cirrhosis HLD Hospitalization History Reason Date(Month/Year) ED: ABD Pain, Constipation February [address] [facility] [place] Hyperglycemia 01/04/23
--- OUTSIDE RECORDS SUMMARY | 2024-03-07 16:17 | XMS_ITS ---
Author Organization [facility] [place] [address] Care Team Providers Care Marketing Automation Analyst Name Role Phone Luis Manuel Garcia Primary Care Provider Unavaila Debbie Diallo Unavailable [phone] Genesis Walton Unavailable [phone] REASON FOR VISIT Quarterly Wellness Visit Encounters Encounter Location Date Provider Diagnosis [facility] Primary Care - [address] [address] 10/23/2023 Genesis Walton PLAN OF TREATMENT No Information
[2024-03-07] MEDS: Lactulose 20 GM/30 ML SOLUTION 30 GM PO (16:42)
[2024-03-07 16:56] LABS: MANUAL DIFF FLAG NO
[2024-03-07 17:03] LABS: Basophils Percent Auto 0.1 % (0-2); Hematocrit 43.8 % (42.0-52.0); Hemoglobin 15.4 g/dl (14.0-18.0); Imm Gran Abs Auto 0.05 X10*3/uL (0.00-0.03); Imm Gran Pct Auto 0.7 % (0.0-0.4); Lymphocytes Absolute Auto 1.6 X10*3/uL (1.2-4.9); Lymphocytes Percent Auto 21.6 % (20-40); Mean Corpuscular HGB Conc 35.2 g/dl (31.0-36.0); Mean Corpuscular Hemoglobin 30.1 pg (27.0-33.0); Mean Corpuscular Volume 85.7 fL (80.0-98.0); Mean Platelet Volume 9.8 fL (9.4-12.4); Monocytes Absolute Auto 0.5 X10*3/uL (0.1-1.2); Monocytes Percent Auto 6.5 % (2-11); Neutrophils Absolute Auto 5.3 x10*3/uL (2.0-8.3); Neutrophils Percent Auto 71.1 % (45-73); Platelet Count 122 X10*3/uL (160-400); Red Blood Count 5.11 X10*6/uL (4.60-5.80); Red Cell Distribution Width 13.2 % (11.0-16.0); White Blood Count 7.5 X10*3/uL (4.8-10.8)
[2024-03-07 17:11] LABS: Alanine Aminotransferase 37 U/L (0-40); Albumin Level 4.4 g/dL (3.5-5.0); Alkaline Phosphatase 109 U/L (39-117); Anion Gap 16 (12-20); Aspartate Amino Transferase 19 U/L (5-37); Bilirubin Total 0.5 mg/dL (0.0-1.0); Blood Urea Nitrogen 21 mg/dL (9-16); Carbon Dioxide 23 mmol/L (22-29); Chloride 109 mmol/L (96-108); Creatinine Clr Calc Pharmacy 79.6; Estimated Glomerular Filt Rate 54; Glucose Random 111 mg/dL (60-115); Potassium 4.1 mmol/L (3.3-5.1); Sodium 144 mmol/L (135-145); Total Protein 7.5 g/dL (6.5-8.0)
[2024-03-07 17:59] VITALS: BP 128/80; PULSE 76; RESP 18; TEMP 36.8; O2SAT 99
== END 2024-03-07 18:05 | disposition home or self-care (01) ==
PROVIDERS: Registered Nurse Emergency; Emergency Provider Emergency Medicine; PCP Internal Medicine
DX: K59.00 Constipation, unspecified (principal); R10.9 Unspecified abdominal pain; Z79.899 Other long term (current) drug therapy; Z87.891 Personal history of nicotine dependence
CPT/HCPCS: 36415; 74018; 80053; 85025; 99283; 99284

== ENCOUNTER 2024-03-13 11:25 | Outpatient (AMB) | payer OTHER, SELFPAY ==
--- NOTE | 2024-03-13 12:17 | A.OFFVIS_ITS ---
Vital Signs 03/13/24 12:28 Height 6 ft 1 in Weight 261 lb 14.546 oz BMI 34.6 BP 104/72 Blood Pressure Location Rt brachial Position Sitting Pulse 90 Pulse Source Pulse Oximeter Pulse Oximetry (%) 97 Oxygen Delivery Method Room Air Intake Visit Reasons: ED follow up Intake Note: Mike presents in office today for a scheduled post ED admit [facility] CC; Pt was seen in the ED on 03/07/2024 for abdominal pain and constipation. Pt states that they have been trying to make dietary adjustments over the course of the last week. Pt also reports that he is experiencing some confusion regarding his medications. Pt was given 3 new medications by the ED MD. Pt would like some clarification on what he should be taking. Pt still reports experiencing constipation. Pt states that his last BM was approximately 2-3 days ago. Pt has been taking MoM as instructed. Steak Tenderizer Machine Required: No Allergies No Known Allergies [No Known Allergies*] Allergy (Verified 03/13/24 12:17) HPI HPI ED follow up: Details: Assessment & Plan (1) Chronic idiopathic constipation: Code(s): K59.04 - Chronic idiopathic constipation Category: Medical (2) Delayed gastric emptying: Code(s): K30 - Functional dyspepsia Category: Medical Plan Taking the Linzess 145 micro g he still not moving his bowels very well. He uses the milk of magnesia but tries to use it sparingly because sometimes he will have overnight incontinence if he takes it and his insurance does not pay for it and has to buy [id number]. At this point I want him to use only the Linzess and will try increasing it back to 290 micro g. I specifically do not want him to take any other laxative medications as I think over use of too many laxatives what put him into this back and forth cycle. He also has very poor insight into regulating his diet. Continues on his fiber, his metoclopramide, and simethicone. I am unclear as to whether he has taking the Colace but I would like him to stop that as well. (however I did not specify this on his written handout) Return office visit in 6 weeks Medications: On Hold linaclotide (Linzess) Hold Comment: Doctor's Order 145 mcg PO QAM 30 caps 3RF K58.1 - Irritable bowel syndrome with constipation Resumed linaclotide (Linzess) 290 mcg PO QAM 30 days 30 caps 6RF K59.04 - Chronic idiopathic constipation Patient Instructions: Mike Cornejo 1.? Stop the Linzess 145mcg and start Linzess 290mcg. 2.? Do NOT take senna, bisacodyl, or Miralax 3.? Keep taking your fiber, metaclopramide, probiotic, simethicone 4.? Only use milk of magnesia as needed I want to see you in 6 weeks to see how you are doing CORRESPONDENCE On 03/12/24 @ 15:20 Odin Perez Wrote To Gordillo Mike called requesting to be seen today as he was seen in the ED and on 03/07 and has questions about his medications. We have 2 cancellations tomorrow and I was able to add him at 1PM. Please advise if ok. ABDOMINAL X-RAY 03/07/24 FINDINGS: Large body habitus. Lung bases are unremarkable. Large amount of fecal material is present in the colon and rectum in this patient with a history of constipation. The visualized loops of bowel are in the normal size range. No evidence of pneumoperitoneum. No renal stones are seen. However, observation of small calculi would be difficult due to the bowel gas and fecal material. No acute osseous abnormality. XR/XR KUB IMPRESSION: Large amount fecal material in the colon is consistent with history of constipation. No evidence of bowel obstruction. TODAY'S VISIT We discuss using MOM instead of lactulose as this gives him diarrhea and gas and bloating. He says he is taking the 290mcg LInzess dose and his fiber. We discuss also eating more lettuce that helps him to move his bowels on a consistent basis to keep his bowels moving. He is also on reglan. He is also having a problem with urinary incontinence and is seeing urology. He is also contending with a bone chip in his heel. ROV 6 weeks. [facility] Medical History Acute diarrhea Pain in both feet Calcaneal spur of right foot Achilles tendinitis Callus of foot Right hand pain Abdominal bloating Vertigo Impacted cerumen, right ear Calcaneal spur Colon cancer screening COVID-19 Pre-op examination Elevated LFTs Encounter for Medicare annual wellness exam Bowel obstruction Melena Knee pain, bilateral Gastroenteritis Healed wound Chronic idiopathic constipation Chronic idiopathic constipation Hospital discharge follow-up Knee osteoarthritis Obesity (BMI 30-39.9) Schizoaffective disorder Pure hypercholesterolemia Benign essential hypertension Chronic kidney disease (CKD), stage III (moderate) Type 2 diabetes mellitus with diabetic chronic kidney disease Morbid obesity Dyslipidemia 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 mellitus half-way (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 Diabetic polyneuropathy associated with 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 mellitus Schizo affective schizophrenia Diabetes type 2, uncontrolled Surgical History History of repair of congenital cleft palate Hx of circumcision Family History Father HTN (hypertension) Mother Diabetes Other Mental health problem Social History Household Members: None Housing: Apartment Are you a primary career based intervention coordinator to a significant other at home: No Do you presently have visiting nurse or other home services: Yes Alcohol intake: former Patient Tobacco Use Status: Former Tobacco user Tobacco use type: Cigarette Cigarettes Per Day: 15 Years Smoked: 8 quit 30 years ago e-Cigarette/Vaping Use: Never Used Second Hand Smoke Exposure: No service: No Current occupational status: employed Current occupation: [employer] Cognitive needs: No Hearing needs: No Vision needs: Yes (glasses) Review of Systems Const Denies fatigue, Denies fever(s), Denies night sweats, Denies poor appetite and Denies weight loss Eyes Details: glasses Reports requires corrective lenses ENT Reports Normal hearing present, Denies dental pain, Denies dysphagia, Denies hearing loss, Denies mouth pain, Denies odynophagia, Denies throat swelling, Denies tongue swelling and Reports other (Dentition adequate) Card Reports no additional complaints Resp Reports no additional complaints GI Details: Denies abdominal pain, Denies melena, Denies bloating, Denies hematochezia, Reports constipation, Denies GI cramping, Denies dysphagia, Denies excessive flatus, Denies early satiety, Denies heartburn, Denies diarrhea, Denies nausea, Denies odynophagia, Denies vomiting and Denies hematemesis Skin/Breast Denies pruritus, Denies lesions, Denies rash and Denies jaundice Neuro Reports Normal hearing present and Denies Abnormal speech present Endo Denies fatigue Aller/Immun Denies throat swelling and Denies tongue swelling Physical Exam Vital Signs: Last Vital Signs Pulse 90 03/13/24 12:28 BP 104/72 03/13/24 12:28 Pulse Ox 97 03/13/24 12:28 Oxygen Delivery Method Room Air 03/13/24 12:28 BMI result Body Mass Index 34.6 Const General: cooperative, no acute distress, well developed and well groomed Nutritional Appearance: well nourished and obese Orientation/consciousness: oriented to person, oriented to place and oriented to time Limitations: No language barrier and other limitations HEENT Head: Yes normocephalic and Yes atraumatic Eyes General: appearance normal, both eyes and all related structures Pupils: Equal, round and reactive pupils present Neck Neck: Yes normal visual inspection and Yes no lymphadenopathy Thyroid: Thyroid normal Resp Effort & Inspection: normal respiratory effort and able to speak in complete sentences Auscultation: clear to auscultation bilaterally Cardio Rate: regular rate Rhythm: regular rhythm Heart sounds: Normal, physiologic split S2 sound present Peripheral pulses: radial pulses present and posterior tibial pulses present GI Inspection: No distended, Yes Abdominal panniculus present and Yes obesity Palpation (GI): Soft to palpation, nontender, no guarding, not rigid and No hepatosplenomegaly present Percussion: Yes normal to percussion Auscultation: normal bowel sounds Rectal Exam - Male: Yes deferred Skin General skin exam: no rashes or lesions noted, turgor normal, skin not dry, no jaundice, No spider nevi and no striae Rashes: no rashes Nails: normal Neuro General: oriented to person, oriented to place and oriented to time Cranial nerves: Yes Equal, round and reactive pupils present and Yes Normal hearing present Speech: No Abnormal speech present Extrem General: Yes normal to inspection, No clubbing, No cyanosis and No edema Psych Appearance: grossly normal and well kempt Mental Status: mental status grossly normal Speech and movement: Normal speech and movement present Affect: normal affect Attitude: cooperative Thought process: Normal thought process present and not confabulating Thought content: Normal thought content present Insight: Poor insight present (Psych) Judgement: Poor judgement present (Psych) Results Reviewed Results Reviewed: We discuss using MOM instead of lactulose as this gives him diarrhea and gas and bloating. He says he is taking the 290mcg LInzess dose and his fiber. We discuss also eating more lettuce that helps him to move his bowels on a consistent basis to keep his bowels moving. He is also on reglan. He is also having a problem with urinary incontinence and is seeing urology. He is also contending with a bone chip in his heel. ROV 6 weeks. Assessment & Plan Assessment & Plan (1) Chronic idiopathic constipation: Code(s): K59.04 - Chronic idiopathic constipation Category: Medical (2) Hearing impairment: Code(s): H91.90 - Unspecified hearing loss, unspecified ear Category: Medical Qualifiers: Hearing loss type: unspecified Laterality: unspecified laterality Qualified Code(s): H91.90 - Unspecified hearing loss, unspecified ear (3) Delayed gastric emptying: Code(s): K30 - Functional dyspepsia Category: Medical (4) Type 2 diabetes mellitus with diabetic chronic kidney disease: Code(s): E11.22 - Type 2 diabetes mellitus with diabetic chronic kidney disease Category: Medical Qualifiers: Diabetes mellitus terminal operations supervisor insulin use: with terminal operations supervisor use Chronic kidney disease stage: stage 3 (moderate) Chronic kidney disease stage 3 subtype: unspecified whether 3a or 3b Qualified Code(s): E11.22 - Type 2 diabetes mellitus with diabetic chronic kidney disease; N18.30 - Chronic kidney disease, stage 3 unspecified; Z79.4 - half-way (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 (5) Schizoaffective disorder: Code(s): F25.9 - Schizoaffective disorder, unspecified Category: Medical Qualifiers: Schizoaffective disorder type: unspecified Qualified Code(s): F25.9 - Schizoaffective disorder, unspecified Plan We discuss using MOM instead of lactulose as this gives him diarrhea and gas and bloating. He says he is taking the 290mcg LInzess dose and his fiber. We discuss also eating more lettuce that helps him to move his bowels on a consistent basis to keep his bowels moving. He is also on reglan. He is also having a problem with urinary incontinence and is seeing urology. He is also contending with a bone chip in his heel. ROV 6 weeks. Coding Level of Care Code Est Pt Level 3 (78022) Diagnoses Chronic idiopathic constipation K59.04 Hearing loss, unspecified hearing loss type, unspecified laterality H91.90 Hearing loss type: unspecified Laterality: unspecified laterality Delayed gastric emptying K30 Type 2 diabetes mellitus with stage 3 chronic kidney disease, with long-term current use of insulin, unspecified whether stage 3a or 3b CKD E11.22; N18.30; Z79.4 Diabetes mellitus terminal operations supervisor insulin use: with terminal operations supervisor use Chronic kidney disease stage: stage 3 (moderate) Chronic kidney disease stage 3 subtype: unspecified whether 3a or 3b Schizoaffective disorder, unspecified type F25.9 Schizoaffective disorder type: unspecified
[2024-03-13 12:28] VITALS: BP 104/72; PULSE 90; O2SAT 97; BMI 34.6
== END 2024-03-13 12:45 | disposition home or self-care (01) ==
PROVIDERS: PCP Internal Medicine; Visit Provider Nurse Practitioner
DX: K59.04 Chronic idiopathic constipation (principal); H91.90 Unspecified hearing loss, unspecified ear; K30 Functional dyspepsia; E11.22 Type 2 diabetes mellitus with diabetic chronic kidney disease; N18.30 Chronic kidney disease, stage 3 unspecified; Z79.4 Long term (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; F25.9 Schizoaffective disorder, unspecified
CPT/HCPCS: 99213

== ENCOUNTER → 2024-03-13 11:25 | Outpatient (BNVA) | payer OTHER, SELFPAY | PROVIDERS: PCP Internal Medicine; Visit Provider Nurse Practitioner | DX: E11.22 Type 2 diabetes mellitus with diabetic chronic kidney disease (principal); N18.30 Chronic kidney disease, stage 3 unspecified; K59.04 Chronic idiopathic constipation; K30 Functional dyspepsia; H91.90 Unspecified hearing loss, unspecified ear; F25.9 Schizoaffective disorder, unspecified; Z79.4 Long term (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 | CPT/HCPCS: 99212 ==

== ENCOUNTER 2024-03-19 07:38 | Outpatient (REF) | payer OTHER, SELFPAY ==
[2024-03-19 08:00] LABS: MANUAL DIFF FLAG NO
[2024-03-19 08:02] LABS: Basophils Percent Auto 0.2 % (0-2); Hematocrit 42.6 % (42.0-52.0); Imm Gran Abs Auto 0.04 X10*3/uL (0.00-0.03); Imm Gran Pct Auto 0.6 % (0.0-0.4); Lymphocytes Absolute Auto 1.7 X10*3/uL (1.2-4.9); Lymphocytes Percent Auto 25.8 % (20-40); Mean Corpuscular HGB Conc 35.2 g/dl (31.0-36.0); Mean Corpuscular Hemoglobin 29.9 pg (27.0-33.0); Mean Corpuscular Volume 84.9 fL (80.0-98.0); Mean Platelet Volume 10.3 fL (9.4-12.4); Monocytes Absolute Auto 0.6 X10*3/uL (0.1-1.2); Monocytes Percent Auto 8.6 % (2-11); Neutrophils Absolute Auto 4.3 x10*3/uL (2.0-8.3); Neutrophils Percent Auto 64.8 % (45-73); Platelet Count 117 X10*3/uL (160-400); Red Blood Count 5.02 X10*6/uL (4.60-5.80); Red Cell Distribution Width 12.8 % (11.0-16.0); White Blood Count 6.6 X10*3/uL (4.8-10.8)
== END 2024-03-19 07:39 | disposition home or self-care (01) ==
LOC: HO.LABR 07:38
PROVIDERS: PCP Internal Medicine; Visit Provider Psychiatry & Neurology Psychiatry
DX: F25.0 Schizoaffective disorder, bipolar type (principal); Z79.899 Other long term (current) drug therapy
CPT/HCPCS: 36415; 85025

== ENCOUNTER 2024-03-22 10:03 | Outpatient (REF) | payer OTHER, SELFPAY ==
[2024-03-22 10:16] LABS: MANUAL DIFF FLAG NO
[2024-03-22 11:06] LABS: Basophils Percent Auto 0.1 % (0-2); Hematocrit 48.9 % (42.0-52.0); Hemoglobin 16.8 g/dl (14.0-18.0); Imm Gran Abs Auto 0.05 X10*3/uL (0.00-0.03); Imm Gran Pct Auto 0.7 % (0.0-0.4); Lymphocytes Absolute Auto 1.7 X10*3/uL (1.2-4.9); Lymphocytes Percent Auto 22.3 % (20-40); Mean Corpuscular HGB Conc 34.4 g/dl (31.0-36.0); Mean Corpuscular Hemoglobin 29.8 pg (27.0-33.0); Mean Corpuscular Volume 86.9 fL (80.0-98.0); Mean Platelet Volume 10.2 fL (9.4-12.4); Monocytes Absolute Auto 0.5 X10*3/uL (0.1-1.2); Monocytes Percent Auto 6.9 % (2-11); Neutrophils Absolute Auto 5.2 x10*3/uL (2.0-8.3); Platelet Count 125 X10*3/uL (160-400); Red Blood Count 5.63 X10*6/uL (4.60-5.80); Red Cell Distribution Width 12.9 % (11.0-16.0); White Blood Count 7.4 X10*3/uL (4.8-10.8)
[2024-03-22 11:13] LABS: Appearance Urine Clear; Color Urine Yellow; Glucose Urine UA >=1000 mg/dL (Negative); Leukocyte Esterase Urine Negative (Negative); Nitrite Urine Negative (Negative); Specific Gravity - Urine 1.025 (1.005-1.025); UMIC TRIGGER UACC YES; Urine Blood Negative (Negative); Urine Ketones Negative (Negative); Urine Protein Negative (Neg-Trace)
[2024-03-22 11:29] LABS: Bacteria Urine None Seen (None Seen); Hyaline Casts Urine 0-2 /LPF (0-2); RBC Urine 0-2 /HPF (0-2); Squamous Epithelial Cell Urine 0-2 /HPF (0-2); WBC Urine 0-5 /HPF (0-5)
[2024-03-22 11:50] LABS: Microalbumin Urine < 5.0 mg/L
[2024-03-22 11:54] LABS: Alanine Aminotransferase 41 U/L (0-40); Albumin Level 4.6 g/dL (3.5-5.0); Alkaline Phosphatase 129 U/L (39-117); Anion Gap 13 (12-20); Aspartate Amino Transferase 24 U/L (5-37); Bilirubin Total 0.6 mg/dL (0.0-1.0); Blood Urea Nitrogen 18 mg/dL (9-16); Calcium 10.2 mg/dL (8.4-10.2); Carbon Dioxide 26 mmol/L (22-29); Chloride 108 mmol/L (96-108); Cholesterol 153 mg/dL (<200); Estimated Glomerular Filt Rate 58; Glucose Fasting 160 mg/dL (60-99); HDL Cholesterol 34 mg/dL (>40); LDL Cholesterol Calculated 71 mg/dL (<100); Potassium 4.2 mmol/L (3.3-5.1); Sodium 143 mmol/L (135-145); Total Protein 7.8 g/dL (6.5-8.0); Triglycerides 243 mg/dL (<150)
[2024-03-22 12:11] LABS: TSH reflex Free T4 2.26 uIU/mL (0.32-4.0); Vitamin D 25-OH Total 56.1 ng/mL (>30)
[2024-03-22 12:12] LABS: Estimated Average Glucose 143 mg/dL; Hemoglobin A1c % 6.6 % (<6.0)
== END 2024-03-22 10:04 | disposition home or self-care (01) ==
LOC: HO.LAB 10:03
PROVIDERS: PCP Internal Medicine; Visit Provider Internal Medicine
DX: D64.9 Anemia, unspecified (principal); E78.00 Pure hypercholesterolemia, unspecified; E11.9 Type 2 diabetes mellitus without complications; E55.9 Vitamin D deficiency, unspecified
CPT/HCPCS: 36415; 80053; 80061; 81001; 82306; 82570; 83036; 84443; 85025

== ENCOUNTER 2024-03-28 12:48 | Outpatient (AMB) | payer OTHER, SELFPAY ==
--- NOTE | 2024-03-28 12:54 | MHC.OFFVIS ---
Vital Signs 03/28/24 13:18 Height 6 ft 1 in Weight 267 lb 3.204 oz BMI 35.2 BP 108/74 Blood Pressure Location Lt brachial Position Sitting Pulse 86 Intake Visit Reasons: 7 week follow up Intake Note: Mike returns to in office 7 weeks follow up of constipation. CC: Patient states that he stills feels full and like he wants to vomit . She states that the constipation is here and there and he took sometimes Silk Winding Machine Operator Required: No Accompanied by: Self / Same As Patient Allergies No Known Allergies [No Known Allergies*] Allergy (Verified 03/28/24 13:16) HPI HPI 7 week follow up: Details: Assessment & Plan (1) Chronic idiopathic constipation: Code(s): K59.04 - Chronic idiopathic constipation Category: Medical (2) Hearing impairment: Code(s): H91.90 - Unspecified hearing loss, unspecified ear Category: Medical Qualifiers: Hearing loss type: unspecified Laterality: unspecified laterality Qualified Code(s): H91.90 - Unspecified hearing loss, unspecified ear (3) Delayed gastric emptying: Code(s): K30 - Functional dyspepsia Category: Medical (4) Type 2 diabetes mellitus with diabetic chronic kidney disease: Code(s): E11.22 - Type 2 diabetes mellitus with diabetic chronic kidney disease Category: Medical Qualifiers: Diabetes mellitus long-term insulin use: with predatory animal exterminator use Chronic kidney disease stage: stage 3 (moderate) Chronic kidney disease stage 3 subtype: unspecified whether 3a or 3b Qualified Code(s): E11.22 - Type 2 diabetes mellitus with diabetic chronic kidney disease; N18.30 - Chronic kidney disease, stage 3 unspecified; Z79.4 - technician terminal and repeater (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 (5) Schizoaffective disorder: Code(s): F25.9 - Schizoaffective disorder, unspecified Category: Medical Qualifiers: Schizoaffective disorder type: unspecified Qualified Code(s): F25.9 - Schizoaffective disorder, unspecified Plan We discuss using MOM instead of lactulose as this gives him diarrhea and gas and bloating. He says he is taking the 290mcg LInzess dose and his fiber. We discuss also eating more lettuce that helps him to move his bowels on a consistent basis to keep his bowels moving. He is also on reglan. He is also having a problem with urinary incontinence and is seeing urology. He is also contending with a bone chip in his heel. ROV 6 weeks. TODAY'S VISIT He is now taking 2 shots of MOM if he does not move his bowels and 2 more the next day if no BM. He feels this along with watching his fiber and diet is a good plan for him. His current regimen should be LInzess 290mcg, MOM, fiber and reglan 5mg tid with simthicone. However, he has many other medications accumulated but using them frequently causes him to swing widely between CIC and diarrhea. ROV 3 mos. [facility] Medical History Acute diarrhea Pain in both feet Calcaneal spur of right foot Achilles tendinitis Callus of foot Right hand pain Abdominal bloating Vertigo Impacted cerumen, right ear Calcaneal spur Colon cancer screening COVID-19 Pre-op examination Elevated LFTs Encounter for Medicare annual wellness exam Bowel obstruction Melena Knee pain, bilateral Gastroenteritis Healed wound Chronic idiopathic constipation Chronic idiopathic constipation Hospital discharge follow-up Knee osteoarthritis Obesity (BMI 30-39.9) Schizoaffective disorder Pure hypercholesterolemia Benign essential hypertension Chronic kidney disease (CKD), stage III (moderate) Type 2 diabetes mellitus with diabetic chronic kidney disease Morbid obesity Dyslipidemia 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 mellitus penitentiary (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 Diabetic polyneuropathy associated with 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 mellitus Schizo affective schizophrenia Diabetes type 2, uncontrolled Surgical History History of repair of congenital cleft palate Hx of circumcision Family History Father HTN (hypertension) Mother Diabetes Other Mental health problem Social History Household Members: None Housing: Apartment Are you a primary pet care technician to a significant other at home: No Do you presently have visiting nurse or other home services: Yes Alcohol intake: former Patient Tobacco Use Status: Former Tobacco user Tobacco use type: Cigarette Cigarettes Per Day: 15 Years Smoked: 8 quit 30 years ago e-Cigarette/Vaping Use: Never Used Second Hand Smoke Exposure: No service: No Current occupational status: employed Current occupation: [employer] Cognitive needs: No Hearing needs: No Vision needs: Yes (glasses) Review of Systems Const Denies fatigue, Denies fever(s), Denies night sweats, Denies poor appetite and Denies weight loss Eyes Details: glasses Reports requires corrective lenses ENT Reports Normal hearing present, Denies dental pain, Denies dysphagia, Denies hearing loss, Denies mouth pain, Denies odynophagia, Denies throat swelling, Denies tongue swelling and Reports other (Dentition adequate) Card Reports no additional complaints Resp Reports no additional complaints GI Details: Denies abdominal pain, Denies melena, Denies bloating, Denies hematochezia, Reports constipation, Denies GI cramping, Denies dysphagia, Denies excessive flatus, Reports early satiety, Denies heartburn, Denies diarrhea, Reports nausea, Denies odynophagia, Denies vomiting and Denies hematemesis Skin/Breast Denies pruritus, Denies lesions, Denies rash and Denies jaundice Neuro Reports Normal hearing present and Denies Abnormal speech present Endo Denies fatigue Aller/Immun Denies throat swelling and Denies tongue swelling Physical Exam Vital Signs: Last Vital Signs Pulse 86 03/28/24 13:18 BP 108/74 03/28/24 13:18 BMI result Body Mass Index 35.2 Const General: cooperative, no acute distress, well developed and well groomed Nutritional Appearance: well nourished and obese Orientation/consciousness: oriented to person, oriented to place and oriented to time Limitations: No language barrier and other limitations HEENT Head: Yes normocephalic and Yes atraumatic Eyes General: appearance normal, both eyes and all related structures Pupils: Equal, round and reactive pupils present Neck Neck: Yes normal visual inspection and Yes no lymphadenopathy Thyroid: Thyroid normal Resp Effort & Inspection: normal respiratory effort and able to speak in complete sentences Auscultation: clear to auscultation bilaterally Cardio Rate: regular rate Rhythm: regular rhythm Heart sounds: Normal, physiologic split S2 sound present Peripheral pulses: radial pulses present and posterior tibial pulses present GI Inspection: No distended, Yes Abdominal panniculus present and Yes obesity Palpation (GI): Soft to palpation, nontender, no guarding, not rigid and No hepatosplenomegaly present Percussion: Yes normal to percussion Auscultation: normal bowel sounds Rectal Exam - Male: Yes deferred Skin General skin exam: no rashes or lesions noted, turgor normal, skin not dry, no jaundice, No spider nevi and no striae Rashes: no rashes Nails: normal Neuro General: oriented to person, oriented to place and oriented to time Cranial nerves: Yes Equal, round and reactive pupils present and Yes Normal hearing present Speech: No Abnormal speech present Extrem General: Yes normal to inspection, No clubbing, No cyanosis and No edema Psych Appearance: grossly normal and well kempt Mental Status: mental status grossly normal Speech and movement: Normal speech and movement present Affect: normal affect Attitude: cooperative Thought process: Normal thought process present and not confabulating Thought content: Normal thought content present Insight: Poor insight present (Psych) Judgement: Poor judgement present (Psych) Assessment & Plan Assessment & Plan (1) Chronic idiopathic constipation: Code(s): K59.04 - Chronic idiopathic constipation Category: Medical (2) Delayed gastric emptying: Code(s): K30 - Functional dyspepsia Category: Medical Plan He is now taking 2 shots of MOM if he does not move his bowels and 2 more the next day if no BM. He feels this along with watching his fiber and diet is a good plan for him. His current regimen should be LInzess 290mcg, MOM, fiber and reglan 5mg tid with simthicone. However, he has many other medications accumulated but using them frequently causes him to swing widely between CIC and diarrhea. ROV 3 mos. Medications: Discontinued linaclotide (Linzess) Take first thing in the morning with a full glass of water. Discontinued Reason: Doctor's Order 145 mcg PO QAM 30 caps 3RF K58.1 - Irritable bowel syndrome with constipation Coding Level of Care Code Est Pt Level 3 (74697) Diagnoses Chronic idiopathic constipation K59.04 Delayed gastric emptying K30
[2024-03-28 13:18] VITALS: BP 108/74; PULSE 86; BMI 35.2
== END 2024-03-28 13:28 | disposition home or self-care (01) ==
PROVIDERS: PCP Internal Medicine; Visit Provider Nurse Practitioner
DX: K59.04 Chronic idiopathic constipation (principal); K30 Functional dyspepsia
CPT/HCPCS: 99213

== ENCOUNTER → 2024-03-28 12:48 | Outpatient (BNVA) | payer OTHER, SELFPAY | PROVIDERS: PCP Internal Medicine; Visit Provider Nurse Practitioner | DX: K59.04 Chronic idiopathic constipation (principal); K30 Functional dyspepsia | CPT/HCPCS: 99212 ==

== ENCOUNTER 2024-04-16 07:58 | Outpatient (REF) | payer OTHER, SELFPAY ==
[2024-04-16 08:26] LABS: MANUAL DIFF FLAG NO
[2024-04-16 09:50] LABS: Basophils Percent Auto 0.2 % (0-2); Hematocrit 44.1 % (42.0-52.0); Hemoglobin 15.5 g/dl (14.0-18.0); Imm Gran Abs Auto 0.04 X10*3/uL (0.00-0.03); Imm Gran Pct Auto 0.6 % (0.0-0.4); Lymphocytes Absolute Auto 1.3 X10*3/uL (1.2-4.9); Lymphocytes Percent Auto 20.5 % (20-40); Mean Corpuscular HGB Conc 35.1 g/dl (31.0-36.0); Mean Corpuscular Hemoglobin 30.3 pg (27.0-33.0); Mean Corpuscular Volume 86.1 fL (80.0-98.0); Mean Platelet Volume 10.5 fL (9.4-12.4); Monocytes Absolute Auto 0.5 X10*3/uL (0.1-1.2); Monocytes Percent Auto 7.2 % (2-11); Neutrophils Absolute Auto 4.7 x10*3/uL (2.0-8.3); Neutrophils Percent Auto 71.5 % (45-73); Platelet Count 112 X10*3/uL (160-400); Red Blood Count 5.12 X10*6/uL (4.60-5.80); White Blood Count 6.5 X10*3/uL (4.8-10.8)
== END 2024-04-16 07:59 | disposition home or self-care (01) ==
LOC: HO.LAB 07:58
PROVIDERS: PCP Internal Medicine; Visit Provider Psychiatry & Neurology Psychiatry
DX: F25.0 Schizoaffective disorder, bipolar type (principal); Z79.899 Other long term (current) drug therapy
CPT/HCPCS: 36415; 85025

== ENCOUNTER 2024-04-21 09:38 | Emergency (ER) | payer OTHER, SELFPAY ==
--- NOTE | ~2024-04-21 | XR_ITS ---
EXAMINATION: XR ABDOMEN KUB CLINICAL INDICATION: Constipation COMPARISON: KUB 03/07/2024 TECHNIQUE: AP view of the abdomen. FINDINGS: The bowel gas pattern is normal with no evidence of ileus or obstruction. Large colonic stool burden, most pronounced in the left colon, similar to slightly increased from 03/07/2024. No unusual soft tissue calcifications are noted. XR/XR KUB IMPRESSION: Large colonic stool burden, similar to slightly increased from 03/07/2024. Electronically signed by: Joshua Lowe MD 04/21/2024 10:32 AM EDT
[2024-04-21 09:42] VITALS: BP 133/85; PULSE 77; RESP 18; TEMP 36.6; O2SAT 98; BMI 23.1
[2024-04-21 10:00] LABS: MANUAL DIFF FLAG NO
[2024-04-21 10:03] LABS: Basophils Percent Auto 0.1 % (0-2); Hematocrit 45.8 % (42.0-52.0); Hemoglobin 16.2 g/dl (14.0-18.0); Imm Gran Abs Auto 0.05 X10*3/uL (0.00-0.03); Imm Gran Pct Auto 0.7 % (0.0-0.4); Lymphocytes Absolute Auto 1.3 X10*3/uL (1.2-4.9); Lymphocytes Percent Auto 16.7 % (20-40); Mean Corpuscular HGB Conc 35.4 g/dl (31.0-36.0); Mean Corpuscular Hemoglobin 30.4 pg (27.0-33.0); Mean Corpuscular Volume 85.9 fL (80.0-98.0); Mean Platelet Volume 10.1 fL (9.4-12.4); Monocytes Absolute Auto 0.6 X10*3/uL (0.1-1.2); Monocytes Percent Auto 7.9 % (2-11); Neutrophils Absolute Auto 5.7 x10*3/uL (2.0-8.3); Neutrophils Percent Auto 74.6 % (45-73); Platelet Count 122 X10*3/uL (160-400); Red Blood Count 5.33 X10*6/uL (4.60-5.80); Red Cell Distribution Width 12.9 % (11.0-16.0); White Blood Count 7.6 X10*3/uL (4.8-10.8)
[2024-04-21 10:14] LABS: Anion Gap 15 (12-20); Blood Urea Nitrogen 23 mg/dL (9-16); Carbon Dioxide 21 mmol/L (22-29); Chloride 107 mmol/L (96-108); Creatinine Clr Calc Pharmacy 66.4; Estimated Glomerular Filt Rate 56; Glucose Random 203 mg/dL (60-115); Potassium 4.4 mmol/L (3.3-5.1); Sodium 139 mmol/L (135-145)
[2024-04-21 10:28] VITALS: BP 95/52; PULSE 73; RESP 18; TEMP 36.4; O2SAT 100
--- NOTE | 2024-04-21 10:39 | PC.NURSE ---
Pt comes to ED with c/o dizziness and constipation. VSS, afebrile. Pt reports no BM x2 weeks. States he take OTC Miralax but is has not been helpful. 3/10 pain to his abd, pain can be relieved temporarily with passing gas. KUB completed, labs resulted. Awaiting ED provider orders.
[2024-04-21 11:10] VITALS: BP 112/79; PULSE 80; RESP 16; TEMP 36.9; O2SAT 98
--- NOTE | 2024-04-21 11:24 | ED.GENADULT ---
HPI - General Adult General Chief complaint: General Medical Stated complaint: High blood sugar/Dizzy/Constipated Time Seen by Provider: 04/21/24 11:20 Source: patient Mode of arrival: ambulatory Limitations: no limitations History of Present Illness ED Provider: Jaqui Choi PA-C HPI narrative: Patient is a 63 year old assigned male at with a history of CKD, DM, and constipation presenting to the emergency department today with abdominal pain and continued constipation. Patient states that it has been 2-3 weeks since his last bowel movement and he thinks he needs help having one to help with his pain. Patient denies any dizziness, lightheadedness, nausea, vomiting, fever, chills, blurry vision, double vision, loss of vision, chest pain, difficulty breathing, shortness of breath, back pain, night sweats, pain with urination, increased urinary frequency, increased urinary urgency, blood in his urine or stool, syncope or a near syncopal episode, recent trauma or falls, bowel incontinence, bladder incontinence, or any other complaints at this time. Relieving factors: none Exacerbating factors: none Associated symptoms: denies other symptoms Treatments prior to arrival: none Related Data Home Medications ?Medication ?Instructions ?Recorded ?Confirmed hydroxyzine pamoate 50 mg capsule 50 mg PO TID PRN Anxiety 09/18/20 12/26/23 benztropine 0.5 mg tablet 0.5 mg PO BID 04/29/22 12/26/23 L.acidoph, paracasei,B. lactis 10 cell PO 05/12/22 12/26/23 billion cell capsule (Digestive Advantage Advanced Probiotic) clozapine 100 mg tablet 100 mg PO TID 05/12/22 12/26/23 magnesium hydroxide 400 mg/5 mL 10 ml PO BEDTIME PRN 01/11/24 oral suspension (Milk of Magnesia) Previous Rx's ?Medication ?Instructions ?Recorded sildenafil 50 mg tablet 50 mg PO DAILY PRN sexual activity 08/11/22 #10 tabs polyethylene glycol 3350 17 gram 17 g PO BID #30 ea 08/12/22 oral powder packet (Miralax) sennosides 8.6 mg tablet (senna) 17.2 mg (2 x 8.6 mg) PO BEDTIME 02/24/23 for constipation #60 tabs blood-glucose meter (FreeStyle #1 ea 03/27/23 Lite Meter kit) flash glucose scanning reader #1 ea 04/10/23 (FreeStyle Jody 2 Cumby) pen needle, diabetic 29 gauge x #100 ea 05/12/23 1/2 (BD Ultra-Fine Original Pen Needle) Tresiba FlexTouch U-200 200 30 unit (0.15 mL) subcut DAILY 90 07/03/23 unit/mL (3 mL) subcutaneous pen days #9 mL (insulin degludec) phenol 1.5 %-glycerin 33 % mucosal 1 spray mucous membrane Q6-8H PRN 09/03/23 spray (Chloraseptic Max Sore sore throat #118 mL Throat) lancets 28 gauge (FreeStyle #100 ea 09/14/23 Lancets) docusate sodium 100 mg capsule 100 mg PO BID #60 caps 10/19/23 methylcellulose (laxative) 500 mg 1,000 mg (2 x 500 mg) PO TID #180 10/19/23 tablet (Fiber Therapy tabs (methylcellulose)) simethicone 180 mg capsule 180 mg PO TID #90 caps 10/19/23 metformin 500 mg tablet 1,000 mg (2 x 500 mg) PO BID 90 11/01/23 days #360 tabs gabapentin 300 mg capsule 300 mg PO BEDTIME 90 days #90 caps 11/03/23 furosemide 20 mg tablet 20 mg PO DAILY #90 tabs 11/21/23 cholecalciferol (vitamin D3) 25 25 mcg PO DAILY #90 caps 12/21/23 mcg (1,000 unit) capsule ketoconazole 2 % topical cream 1 appl topical DAILY #30 grams 01/01/24 bisacodyl 5 mg tablet,delayed 10 mg (2 x 5 mg) PO BID #90 tabs 01/02/24 release acetaminophen 500 mg tablet 1,000 mg (2 x 500 mg) PO Q6H PRN 01/04/24 pain #30 tabs atorvastatin 10 mg tablet 10 mg PO DAILY #90 tabs 01/04/24 cyclobenzaprine 10 mg tablet 10 mg PO DAILY PRN muscle spasm 01/04/24 #10 tabs lidocaine 5 % topical patch 1 patch topical DAILY #15 ea 01/04/24 ibuprofen 800 mg tablet 800 mg PO Q8H PRN for pain 30 days 01/30/24 #90 tabs linaclotide 290 mcg capsule 290 mcg PO QAM 30 days #30 caps 02/08/24 (Linzess) empagliflozin 25 mg tablet 25 mg PO QAM #30 tabs 02/12/24 (Jardiance) lactulose 20 gram/30 mL oral 20 g (30 mL) PO BID #2,880 mL 03/07/24 solution psyllium seed (sugar) oral powder 1 tsp PO BID #1,254 grams 03/07/24 (Metamucil (sugar) oral powder) blood sugar diagnostic (FreeStyle #100 ea 03/22/24 Lite Strips) blood-glucose meter (FreeStyle #1 ea 04/01/24 Lite Meter kit) metoclopramide HCl 5 mg tablet 5 mg PO TID #90 tabs 04/16/24 Allergies Allergy/AdvReac Type Severity Reaction Status Date / Time No Known Allergies Allergy Verified 04/21/24 09:45 [No Known Allergies*] Review of Systems Constitutional: Constitutional: Reports no additional constitutional complaints, Denies chills, Denies fever(s) and Denies night sweats Eyes: Eyes: Reports no additional eye complaints, Denies blurry vision, Denies change in vision, Denies diplopia, Denies eye discharge, Denies loss of vision and Denies eye pain ENT: Denies dizziness Cardiovascular: Cardiovascular: Reports no additional cardiovascular complaints, Denies chest pain, Denies lightheadedness, Denies Loss of Consciousness and Denies dyspnea Respiratory: Respiratory: Reports no additional respiratory complaints and Denies dyspnea Gastrointestinal: Gastrointestinal: Reports no additional gastrointestinal complaints, Reports abdominal pain, Denies melena, Denies hematochezia, Denies change in bowel habits, Denies change in stool character and Reports constipation Genitourinary: Genitourinary: Reports no additional male genitourinary complaints, Denies hematuria, Denies oliguria, Denies difficulty urinating, Denies dysuria, Denies urinary frequency, Denies urinary hesitancy, Denies urinary incontinence and Denies urinary urgency Musculoskeletal: Musculoskeletal: Reports no additional musculoskeletal complaints, Denies numbness and Denies tingling Neurologic: Denies dizziness, Denies loss of vision, Denies numbness and Denies tingling Psychiatric: Psychiatric: Reports no additional psychiatric complaints Endocrine: Endocrine: Reports no additional endocrine complaints Hematologic/Lymphatic: Hematologic/Lymphatic: Reports no additional hematologic/lymphatic complaints Allergic/Immunologic: Allergic/Immunologic: Reports no additional allergic/immunologic complaints FOR[facility]LY [facility] Past Medical History Attestation statement: The following information was validated with the patient. Source: old records reviewed and nursing notes reviewed Medical History Acute diarrhea Pain in both feet Calcaneal spur of right foot Achilles tendinitis Callus of foot Right hand pain Abdominal bloating Vertigo Impacted cerumen, right ear Calcaneal spur Colon cancer screening COVID-19 Pre-op examination Elevated LFTs Encounter for Medicare annual wellness exam Bowel obstruction Melena Knee pain, bilateral Gastroenteritis Healed wound Chronic idiopathic constipation Chronic idiopathic constipation Hospital discharge follow-up Knee osteoarthritis Obesity (BMI 30-39.9) Schizoaffective disorder Pure hypercholesterolemia Benign essential hypertension Chronic kidney disease (CKD), stage III (moderate) Type 2 diabetes mellitus with diabetic chronic kidney disease Morbid obesity Dyslipidemia 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 mellitus senior living (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 Diabetic polyneuropathy associated with 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 mellitus Schizo affective schizophrenia Diabetes type 2, uncontrolled Surgical History History of repair of congenital cleft palate Hx of circumcision Family History Family History Father HTN (hypertension) Mother Diabetes Other Mental health problem Social History Social History Household Members: None Housing: Apartment Are you a primary care taker to a significant other at home: No Do you presently have visiting nurse or other home services: Yes Alcohol intake: former Patient Tobacco Use Status: Former Tobacco user Tobacco use type: Cigarette Cigarettes Per Day: 15 Years Smoked: 8 quit 30 years ago Smoked in Last 30 Days: No e-Cigarette/Vaping Use: Never Used Second Hand Smoke Exposure: No Use of substances other than those prescribed or required for medical reasons: No Advance Directives: No Advance Directives Information Provided: Yes service: No Current occupational status: employed Current occupation: [employer] Cognitive needs: No Hearing needs: No Vision needs: Yes (glasses) Physical Exam ED Vital Signs: Vital Signs - 24 hr 04/21/24 09:42 04/21/24 10:28 04/21/24 11:10 Temperature 98 F 97.5 F 98.5 F Pulse Rate 77 73 80 Respiratory Rate 18 18 16 Blood Pressure 133/85 95/52 L 112/79 Pulse Oximetry 98 100 98 Oxygen Delivery Method Room Air Room Air Room Air 04/21/24 12:00 04/21/24 13:18 Temperature 98.2 F 98.2 F Pulse Rate 98 98 Respiratory Rate 18 18 Blood Pressure 133/86 133/86 Pulse Oximetry 97 97 Oxygen Delivery Method Room Air Room Air BMI result Body Mass Index 23.1 Const General: cooperative, no acute distress, alert and awake Nutritional Appearance: well nourished Orientation/consciousness: patient oriented x3 Limitations: no limitations HENMT Head: Yes normal to inspection and Yes atraumatic Ears: hearing grossly normal bilaterally and external ears normal General nose exam: Normal external nose present, no nasal discharge noted and no epistaxis Face and sinus: Yes normal facial exam, No abrasion and No laceration Mouth: Normal oral and palatal mucosa present, no drooling and no muffled voice Eyes General: appearance normal, both eyes and all related structures Periorbital: periorbital findings normal Eyelids: Yes eyelids normal Conjunctivae: conjunctivae normal Pupils: Equal, round and reactive pupils present EOM: EOMs intact bilaterally Neck Neck: Yes normal visual inspection, Yes full ROM and Yes no lymphadenopathy Chest Chest palpation & inspection: normal inspection of the chest Resp Effort & Inspection: normal respiratory effort and able to speak in complete sentences GI Inspection: Yes normal to inspection Palpation (GI): Soft to palpation, not firm, nontender and no guarding Neuro General: patient oriented x3 and moves all extremities Cranial nerves: Yes Equal, round and reactive pupils present Cognition (Neuro): normal cognition Extrem General: Yes normal to inspection, Yes full ROM and Yes capillary refill normal Psych Appearance: grossly normal Mental Status: mental status grossly normal Affect: normal affect Attitude: cooperative Thought process: Normal thought process present Thought content: Normal thought content present Insight: Good insight present (Psych) Medical Decision Making Medical Decision Making MDM Narrative: Patient is a 63 year old assigned male at with a history of CKD, DM, and constipation presenting to the emergency department today with abdominal pain and continued constipation. Patient's physical exam was unremarkable. Patient's blood work was unremarkable. Patient's urine showed no acute process. Patient's KUB x-ray showed constipation. I explained my physical exam findings as well as all test results to the patient. I answered all questions asked by the patient. Patient received a soap suds enema which upon re-evaluation he stated helped his symptoms significantly since he was able to have a large bowel movement. I stressed the importance of the patient taking his medication as directed (either prescribed or as the over the counter packaging recommends). I stressed the importance of the patient following up with his primary care provider. I stressed the importance of the patient returning to the emergency department immediately if his symptoms were to worsen or if he were to develop any dizziness, shortness of breath, difficulty breathing, chest pain, blurry vision, loss of vision, nausea, vomiting, abdominal pain, fever, chills, back pain, or any other complaints. Patient verbalized agreement and understanding with this treatment plan and discharge. Differential Diagnosis Differential Diagnoses: The differential diagnosis associated with the presentation includes Abdominal pain Constipation Admission/Observation Consideration of admission/observation: Escalation of care including admission/observation considered Patient would have been admitted to the hospital had his work up had any findings where hospital admission was appropriate and his clinical presentation warranted hospital admission. Lab Data [facility] Lab Attestation statement: I reviewed the patient's lab results. My interpretation of these results are in the [facility] Rationale portion of this note. 04/21/24 09:56 04/21/24 09:56 Labs: Lab Results 04/21/24 04/21/24 Range/Units 09:56 11:50 WBC 7.6 (4.8-10.8) X10*3/uL RBC 5.33 (4.60-5.80) X10*6/uL Hgb 16.2 (14.0-18.0) g/dl Hct 45.8 (42.0-52.0) % MCV 85.9 (80.0-98.0) fL MCH 30.4 (27.0-33.0) pg MCHC 35.4 (31.0-36.0) g/dl RDW 12.9 (11.0-16.0) % Plt Count 122 L (160-400) X10*3/uL MPV 10.1 (9.4-12.4) fL Immature Gran % (Auto) 0.7 H (0.0-0.4) % Neut % (Auto) 74.6 H (45-73) % Lymph % (Auto) 16.7 L (20-40) % [place] % (Auto) 7.9 (2-11) % Eos % (Auto) 0.0 (0-4) % Baso % (Auto) 0.1 (0-2) % Lymph # (Auto) 1.3 (1.2-4.9) X10*3/uL [place] # (Auto) 0.6 (0.1-1.2) X10*3/uL Eos # (Auto) 0.0 (0.0-0.4) X10*3/uL Baso # (Auto) 0.0 (0.0-0.2) X10*3/uL Abs Immat Gran (auto) 0.05 H (0.00-0.03) X10*3/uL Absolute Neuts (auto) 5.7 (2.0-8.3) x10*3/uL Absolute Nucleated RBC 0.000 (0.0-0.012) X10*3/uL Nucleated RBC % (auto) 0.0 (0.0-0.2) /100WBC Sodium 139 (135-145) mmol/L Potassium 4.4 (3.3-5.1) mmol/L Chloride 107 (96-108) mmol/L Carbon Dioxide 21 L (22-29) mmol/L Anion Gap 15 (12-20) BUN 23 H (9-16) mg/dL Creatinine 1.31 (0.5-1.4) mg/dL Estim Creat Clear Calc 66.4 Estimated GFR 56 Random Glucose 203 H (60-115) mg/dL Calcium 10.0 (8.4-10.2) mg/dL Total Bilirubin 0.5 (0.0-1.0) mg/dL Direct Bilirubin 0.2 (0.0-0.5) mg/dL AST 32 (5-37) U/L ALT 53 H (0-40) U/L Alkaline Phosphatase 139 H (39-117) U/L Total Protein 7.9 (6.5-8.0) g/dL Albumin 4.6 (3.5-5.0) g/dL Urine Color Yellow Urine Appearance Clear Urine pH 5.0 (5.0-9.0) Ur Specific [place] 1.010 (1.005-1.025) Urine Protein Negative (Neg-Trace) mg/dL Urine Glucose (UA) >=1000 H (Negative) mg/dL Urine Ketones Negative (Negative) mg/dL Urine Blood Negative (Negative) Urine Nitrite Negative (Negative) Ur Leukocyte Esterase Negative (Negative) Urine RBC 0-2 (0-2) /HPF Urine WBC 0-5 (0-5) /HPF Ur Squamous Epith Cells 0-2 (0-2) /HPF Urine Bacteria None Seen (None Seen) Hyaline Casts 0-2 (0-2) /LPF Independent Interpretation I performed an independent interpretation of an: Plain X-Ray Interpretation: My interpretation is in agreement with the radiologist's impression of this imaging study. EXAMINATION: XR ABDOMEN KUB CLINICAL INDICATION: Constipation COMPARISON: KUB 03/07/2024 TECHNIQUE: AP view of the abdomen. FINDINGS: The bowel gas pattern is normal with no evidence of ileus or obstruction. Large colonic stool burden, most pronounced in the left colon, similar to slightly increased from 03/07/2024. No unusual soft tissue calcifications are noted. XR/XR KUB IMPRESSION: Large colonic stool burden, similar to slightly increased from 03/07/2024. Electronically signed by: Joshua Lowe MD 04/21/2024 10:32 AM EDT Dictated By: Joshua Lowe MD Signed By: Electronically signed by Joshua Lowe MD 04/21/24 1032 Radiology Impression Discussion of test interpretation with radiology: I have reviewed the radiologist's reading. Chronic Conditions Patient?s care impacted by: Diabetes Discharge Plan Discharge Clinical Impression: Constipation Patient Disposition: Home, Self-Care Instructions: Constipation (DC) Additional Instructions: Follow up with your primary care provider. Return to the emergency department immediately if your symptoms worsen or if you develop any dizziness, shortness of breath, difficulty breathing, chest pain, blurry vision, loss of vision, nausea, vomiting, abdominal pain, fever, chills, back pain, or any other complaints. Prescriptions: No Action (DME) blood-glucose meter [FreeStyle Lite Meter] Kit See Rx Instructions .Route Qty: 1 5RF Rx Instructions: Tests 4 X/day (DME) FreeStyle Jody 2 Cumby Misc See Rx Instructions .ROUTE .MEDSUPPLY Qty: 1 1RF Rx Instructions: As directed Tresiba FlexTouch U-200 200 unit/mL (3 mL) insulin pen 30 unit subcut DAILY 90 Days Qty: 9 3RF (DME) lancets [FreeStyle Lancets] 28 gauge misc See Rx Instructions .Route Qty: 100 4RF Rx Instructions: Tests 5x/day metformin 500 mg tablet 1,000 mg PO BID 90 Days Qty: 360 1RF gabapentin 300 mg capsule 300 mg PO BEDTIME 90 Days Qty: 90 1RF furosemide 20 mg tablet 20 mg PO DAILY Qty: 90 1RF cholecalciferol (vitamin D3) 25 mcg (1,000 unit) capsule 25 mcg PO DAILY Qty: 90 12RF bisacodyl 5 mg tablet,delayed release (DR/EC) 10 mg PO BID Qty: 90 0RF atorvastatin 10 mg tablet 10 mg PO DAILY Qty: 90 0RF ibuprofen 800 mg tablet 800 mg PO Q8H PRN (Reason: for pain) 30 Days Qty: 90 0RF Rx Instructions: take with food Linzess 290 mcg capsule 290 mcg PO QAM 30 Days Qty: 30 6RF Jardiance 25 mg tablet 25 mg PO QAM Qty: 30 3RF (DME) FreeStyle Lite Strips Strip See Rx Instructions .Route Qty: 100 5RF Rx Instructions: Tests 5X/day (DME) blood-glucose meter [FreeStyle Lite Meter] Kit See Rx Instructions .ROUTE .MEDSUPPLY Qty: 1 0RF Rx Instructions: As directed metoclopramide HCl 5 mg tablet 5 mg PO TID Qty: 90 0RF benztropine 0.5 mg tablet 0.5 mg PO BID lactulose 20 gram/30 mL solution 20 g PO BID Qty: 2880 0RF Metamucil (sugar) Powder 1 tsp PO BID Qty: 1254 0RF Chloraseptic Max Sore Throat 1.5-33 % spray,non-aerosol 1 spray mucous membrane Q6-8H PRN (Reason: sore throat) Qty: 118 0RF Rx Instructions: leave on area for 15 seconds then spit out hydroxyzine pamoate 50 mg capsule 50 mg PO TID PRN (Reason: Anxiety) sildenafil 50 mg tablet 50 mg PO DAILY PRN (Reason: sexual activity) Qty: 10 0RF Rx Instructions: administer 30 minutes to 4 hours before activity (DME) pen needle, diabetic [BD Ultra-Fine Orig Pen Needle] 29 gauge x 1/2 needle See Rx Instructions .ROUTE DAILY Qty: 100 3RF Rx Instructions: As directed daily ketoconazole 2 % cream 1 appl topical DAILY Qty: 30 0RF acetaminophen 500 mg tablet 1,000 mg PO Q6H PRN (Reason: pain) Qty: 30 0RF cyclobenzaprine 10 mg tablet 10 mg PO DAILY PRN (Reason: muscle spasm) Qty: 10 0RF lidocaine 5 % adhesive patch,medicated 1 patch topical DAILY Qty: 15 0RF Rx Instructions: leave on most painful area for up to 12 hrs clozapine 100 mg tablet 100 mg PO TID Digestive Advantage Advanced 10 billion cell capsule PO polyethylene glycol 3350 [Miralax] 17 gram powder in packet 17 g PO BID Qty: 30 6RF sennosides [senna] 8.6 mg tablet 17.2 mg PO BEDTIME Qty: 60 6RF Fiber Therapy (m-cellulose) 500 mg tablet 1,000 mg PO TID Qty: 180 5RF simethicone 180 mg capsule 180 mg PO TID Qty: 90 6RF docusate sodium 100 mg capsule 100 mg PO BID Qty: 60 6RF magnesium hydroxide [Milk of Magnesia] 400 mg/5 mL suspension 10 ml PO BEDTIME PRN Referrals: Luis Manuel Garcia MD [Primary Care Provider] - Interventions: ED Discharge Assessment Last Done: 04/21/24 13:18 Discharge Date/Time: 04/21/24 13:18 Print Language: Ethiopian
[2024-04-21 11:41] LABS: Alanine Aminotransferase 53 U/L (0-40); Albumin Level 4.6 g/dL (3.5-5.0); Alkaline Phosphatase 139 U/L (39-117); Aspartate Amino Transferase 32 U/L (5-37); Bilirubin Direct 0.2 mg/dL (0.0-0.5); Bilirubin Total 0.5 mg/dL (0.0-1.0); Total Protein 7.9 g/dL (6.5-8.0)
[2024-04-21 11:56] LABS: Appearance Urine Clear; Color Urine Yellow; Glucose Urine UA >=1000 mg/dL (Negative); Leukocyte Esterase Urine Negative (Negative); Nitrite Urine Negative (Negative); UMIC TRIGGER UACC YES; Urine Blood Negative (Negative); Urine Ketones Negative (Negative); Urine Protein Negative (Neg-Trace)
[2024-04-21 12:00] VITALS: BP 133/86; PULSE 98; RESP 18; TEMP 36.8; O2SAT 97
[2024-04-21 12:04] LABS: Bacteria Urine None Seen (None Seen); Hyaline Casts Urine 0-2 /LPF (0-2); RBC Urine 0-2 /HPF (0-2); Squamous Epithelial Cell Urine 0-2 /HPF (0-2); WBC Urine 0-5 /HPF (0-5)
--- NOTE | 2024-04-21 13:06 | PC.NURSE ---
700ml soap suds enema instilled. held for 5 minutes. pt used commode. large amount of stool output
[2024-04-21 13:18] VITALS: BP 133/86; PULSE 98; RESP 18; TEMP 36.8; O2SAT 97
== END 2024-04-21 13:18 | disposition home or self-care (01) ==
PROVIDERS: Physician Assistant Medical; Emergency Provider Emergency Medicine Emergency Medical Services; PCP Internal Medicine
DX: K59.00 Constipation, unspecified (principal); R42 Dizziness and giddiness; E11.22 Type 2 diabetes mellitus with diabetic chronic kidney disease; I12.9 Hypertensive chronic kidney disease with stage 1 through stage 4 chronic kidney disease, or unspecified chronic kidney disease; N18.30 Chronic kidney disease, stage 3 unspecified; Z79.4 Long term (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; Z79.899 Other long term (current) drug therapy
CPT/HCPCS: 36415; 74018; 80048; 80076; 81001; 85025; 99284

== ENCOUNTER 2024-05-03 09:52 | Outpatient (AMB) | payer OTHER, SELFPAY ==
[2024-05-03 09:54] VITALS: BP 110/80; PULSE 85; O2SAT 96; BMI 35.3
--- NOTE | 2024-05-03 09:54 | MHC.PC.OV ---
Vital Signs 05/03/24 09:54 Height 6 ft 1 in Weight 267 lb 4 oz BMI 35.3 BP 110/80 Blood Pressure Location Lt brachial Position Sitting Pulse 85 Pulse Source Pulse Oximeter Pulse Oximetry (%) 96 Oxygen Delivery Method Room Air Intake Visit Reasons: DM, hyperlipidemia, HTN Inventory Associate And Driver Required: No Accompanied by: Self / Same As Patient Allergies No Known Allergies [No Known Allergies*] Allergy (Verified 05/03/24 10:56) Medication List - Last Reconciled 05/03/24 by Luis Manuel Garcia MD acetaminophen 1,000 mg (2 x 500 mg) PO Q6H PRN atorvastatin 10 mg PO DAILY benztropine 0.5 mg PO BID bisacodyl 10 mg (2 x 5 mg) PO BID blood sugar diagnostic (FreeStyle Lite Strips) Tests 5X/day blood-glucose meter (FreeStyle Lite Meter kit) Tests 4 X/day blood-glucose meter (FreeStyle Lite Meter kit) As directed cholecalciferol (vitamin D3) 25 mcg PO DAILY clozapine 100 mg PO TID cyclobenzaprine 10 mg PO DAILY PRN docusate sodium 100 mg PO BID empagliflozin (Jardiance) 25 mg PO QAM flash glucose scanning reader (FreeStyle Jody 2 [place]) As directed furosemide 20 mg PO DAILY gabapentin 300 mg PO BEDTIME 90 days hydroxyzine pamoate 50 mg PO TID PRN ibuprofen 800 mg PO Q8H PRN 30 days ketoconazole 2% 1 appl topical DAILY L.acidoph, paracasei,B. lactis (Digestive Advantage Advanced Probiotic) cells PO lactulose 20 grams (30 mL) PO BID lancets (FreeStyle Lancets) Tests 5x/day lidocaine 5% 1 patch topical DAILY linaclotide (Linzess) 290 mcg PO QAM 30 days magnesium hydroxide (Milk of Magnesia) 10 mL PO BEDTIME PRN metformin 1,000 mg (2 x 500 mg) PO BID 90 days methylcellulose (laxative) (Fiber Therapy (methylcellulose)) 1,000 mg (2 x 500 mg) PO TID metoclopramide HCl 5 mg PO TID pen needle, diabetic (BD Ultra-Fine Original Pen Needle) As directed daily phenol-glycerin 1.5-33 % (Chloraseptic Max Sore Throat) 1 spray mucous membrane Q6-8H PRN polyethylene glycol 3350 (Miralax) 17 grams PO BID psyllium seed (sugar) (Metamucil (sugar) oral powder) 1 tsp PO BID sennosides (senna) 17.2 mg (2 x 8.6 mg) PO BEDTIME sildenafil 50 mg PO DAILY PRN simethicone 180 mg PO TID Tresiba FlexTouch U-200 (insulin degludec) 30 units (0.15 mL) subcut DAILY 90 days NS Tobacco use date assessed: 05/03/24 Dental Screening Dental Screen Date: 05/03/24 Did you have a dental visit in the last 12 months?: No Did you have a dental problem in the last 6 months where you did not have access to dental care?: No Was dental information given to patient?: Patient has dentist HPI DM, hyperlipidemia, HTN HPI Details Patient comes in today for his follow up visit States that he continues to experience increased pain over his right heel Recalls that he was advised by podiatry that he may require foot surgery to correct his heel issues and he is somewhat concerned about this and is wondering why he cannot just get a cortisone injection like he had in the past States that he feels okay otherwise He denies any headaches or dizziness Denies any chest pains, no SOB No nausea/vomiting, no abdominal pain No change in bowel habits noted - still has frequent constipation and he continues to follow up with GI for this issue States that he went to the ER again a couple of weeks ago for increasing constipation and is wondering if he maybe should just use an enema regularly to better regulate his bowel movements He had his follow up labs done a couple of weeks ago - to discuss his results Adds that he's had some problems with his hearing lately and he would like to have his hearing checked out Would also like to get a printed Rx for Sildenafil - states that we have prescribed this for him in the past but his insurance would not cover the Rx and he is planning to ask the [facility] nurse who is coming to see him in a few days about this [facility] Medical History Acute diarrhea Pain in both feet Calcaneal spur of right foot Achilles tendinitis Callus of foot Right hand pain Abdominal bloating Vertigo Impacted cerumen, right ear Calcaneal spur Colon cancer screening COVID-19 Pre-op examination Elevated LFTs Encounter for Medicare annual wellness exam Bowel obstruction Melena Knee pain, bilateral Gastroenteritis Healed wound Chronic idiopathic constipation Chronic idiopathic constipation Hospital discharge follow-up Knee osteoarthritis Obesity (BMI 30-39.9) Schizoaffective disorder Pure hypercholesterolemia Benign essential hypertension Chronic kidney disease (CKD), stage III (moderate) Type 2 diabetes mellitus with diabetic chronic kidney disease Morbid obesity Dyslipidemia 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 mellitus 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 Diabetic polyneuropathy associated with 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 mellitus Schizo affective schizophrenia Diabetes type 2, uncontrolled Surgical History History of repair of congenital cleft palate Hx of circumcision Family History Father HTN (hypertension) Mother Diabetes Other Mental health problem Social History Household Members: None Housing: Apartment Are you a primary hemodialysis patient care specialist to a significant other at home: No Do you presently have visiting nurse or other home services: Yes Alcohol intake: former Patient Tobacco Use Status: Former Tobacco user Tobacco use type: Cigarette Cigarettes Per Day: 15 Years Smoked: 8 quit 30 years ago e-Cigarette/Vaping Use: Never Used Second Hand Smoke Exposure: No service: No Current occupational status: employed Current occupation: [employer] Cognitive needs: No Hearing needs: No Vision needs: Yes (glasses) Questionnaire PHQ-9 Over the last 2 weeks, how often have you been bothered by any of the following problems? 1. Little interest or pleasure in doing things: several days 2. Feeling down, depressed, or hopeless: several days 3. Trouble falling or staying asleep, or sleeping too much: nearly every day 4. Feeling tired or having little energy: several days 5. Poor appetite or overeating: more than half the days 6. Feeling bad about yourself - or that you are a failure or have let yourself or your family down: not at all 7. Trouble concentrating on things, such as reading the newspaper or watching television: several days 8. Moving or speaking so slowly that other people could have noticed. Or the opposite - being so fidgety or restless that you have been moving around a lot more than usual: not at all 9. Thoughts that you would be better off or of hurting yourself in some way: not at all Total score: 9 Depression Screening Interpretation: Positive Depression Screening Follow-up: Existing condition and In treatment Depression Screening Done: Yes 98651 - PHQ-9 Billing: Yes Source: Developed by Drs. Foster Queen, Shahla Vo, Lambert Sanchez and colleagues, with an educational german from [employer]. Thrive Questionnaire Date Thrive assessed: 05/03/24 I am a: Patient What is your living situation today?: I have a steady place to live Within the past 12 months, did the food you bought not last and you didn't have the money to get more?: Never true Within the past 12 months, did you worry whether your food would run out before you got money to buy more?: Never true Do you have trouble paying for medicines?: No Do you have trouble getting transportation to medical appointments?: No Do you have trouble paying your heating and electricity bill?: No Do you have trouble taking care of your child, family member or friend?: No Do you have trouble with day-to-day activities such as bathing, preparing meals, shopping, managing finances, etc.?: No Are you currently unemployed and looking for a job?: I choose not to answer this question Are you interested in more education?: No Please select the resources that you would like help with: None Currently or been in a relationship where the following occur: No concerns reported THRIVE Score: 0 AUDIT C Alcohol Use Questionnaire (AUDIT-C) 1. How often do you have a drink containing alcohol?: Never 3. How often do you have six or more drinks on one occasion?: Never Total Score: 0 Score Reviewed/Action Taken: Yes KENDRA-7 AMB Questionnaire KENDRA-7 Date KENDRA - 7 assessed: 05/03/24 Feeling nervous, anxious, or on edge: 0 = Not at all Not being able to stop or control worryin = Not at all Worrying too much about different things: 0 = Not at all Trouble relaxin = Not at all Being so restless that it is hard to sit still: 0 = Not at all Becoming easily annoyed or irritable: 0 = Not at all Feeling afraid as if something awful might happen: 0 = Not at all Total KENDRA-7 score (0-4 normal; 5-9 mild; 10-14 moderate; 15-21 severe): 0 Source: Developed by Drs. Fsoter Queen, Shahla Vo, Lambert Sanchez and colleagues, with an educational german from [employer]. Review of Systems Const Denies chills, Denies fatigue, Denies fever(s) and Denies headache(s) ENT Denies dysphagia, Denies dizziness, Denies otalgia, Denies headache(s), Reports hearing loss (in his right ear), Denies neck pain, Denies odynophagia and Denies sore throat Card Denies chest pain, Denies palpitations and Denies dyspnea Resp Denies cough, Denies dyspnea and Denies wheezing GI Denies abdominal pain, Reports constipation (recurrent), Denies dysphagia, Denies heartburn, Reports diarrhea (occasionally; usually when his constipation gets worse), Denies nausea, Denies odynophagia and Denies vomiting Reports erectile dysfunction (states that his insurance will not cover Rx), Denies dysuria, Denies nocturia and Denies urinary frequency Musc Details: (+) pain over his right heel area Denies back pain, Reports arthralgias (both knees, on and off) and Denies neck pain Skin/Breast Denies rash Neuro Denies dizziness and Denies headache(s) Endo Denies fatigue and Denies palpitations Aller/Immun Denies wheezing Physical exam (Primary Care) Vital Signs: Last Vital Signs Pulse 85 05/03/24 09:54 BP 110/80 05/03/24 09:54 Pulse Ox 96 05/03/24 09:54 Oxygen Delivery Method Room Air 05/03/24 09:54 BMI result Body Mass Index 35.3 Tobacco/Smoking Status: Tobacco use Status Tobacco use date assessed 05/03/24 05/03/24 10:01 Patient Tobacco Use Status Former Tobacco user 05/03/24 10:01 Tobacco use type Cigarette 05/03/24 10:01 e-Cigarette/Vaping Use Never Used 05/03/24 10:01 PHQ-9: PHQ-9 Score PHQ-9: Total score 9 05/03/24 10:01 Depression Screening Interpretation: Positive Depression Screening Follow-up: Existing condition and In treatment Thrive Assessment: Date of Thrive Assessment Date Thrive assessed 05/03/24 05/03/24 10:01 Currently or been in a relationship where the following occur: No concerns reported Const General: no acute distress and alert HENMT Ears: TM's normal bilaterally and EAC's normal Throat: Yes posterior oropharynx normal and Yes tonsils normal (no TP congestion noted) Neck Neck: Yes no lymphadenopathy and Yes supple Thyroid: Thyroid normal Resp Auscultation: clear to auscultation bilaterally, no rales and no wheezes Cardio Rate: regular rate Rhythm: regular rhythm Heart sounds: no murmurs GI Palpation (GI): Soft to palpation and nontender Auscultation: normal bowel sounds General: Yes no CVA tenderness Back/Spine/Pelvis Back: no CVA tenderness Cervical Spine: No Cervical spine tenderness Thoracic/Lumbar Spine: No lumbar spinal tenderness Skin Rashes: no rashes Extrem General: Yes no clubbing, cyanosis or edema Right lower extremity: knee Details: tenderness; no swelling and foot Details: tenderness Location: of the calcaneus Details: point tenderness Left lower extremity: knee Details: tenderness; no swelling Results Reviewed Results Reviewed: Laboratory Tests 03/22/24 04/21/24 04/21/24 10:15 09:56 11:50 WBC 7.6 Hgb 16.2 Hct 45.8 Plt Count 122 L Sodium 139 Potassium 4.4 Creatinine 1.31 Estimated GFR 56 Random Glucose 203 H Fasting Glucose 160 H Hemoglobin A1c % 6.6 H Calcium 10.0 AST 32 ALT 53 H Triglycerides 243 H Cholesterol 153 LDL Cholesterol, Calc 71 HDL Cholesterol 34 L 25-OH Vitamin D Total 56.1 TSH 2.26 Ur Specific [place] 1.010 Urine Protein Negative Urine Glucose (UA) >=1000 H Urine Blood Negative Urine Nitrite Negative Ur Leukocyte Esterase Negative Assessment and Plan Assessment & Plan (1) Pure hypercholesterolemia: Code(s): E78.00 - Pure hypercholesterolemia, unspecified Plan: Results of his labs done a couple of weeks ago reviewed and discussed with patient - advised that his serum triglyceride level is still elevated Reinforced low cholesterol diet Continue Atorvastatin 10 mg QD Will recheck his labs and fasting lipids in 3 months for follow up (2) Benign essential hypertension: Code(s): I10 - Essential (primary) hypertension Plan: Reinforced low-sodium diet - goal is systolic BP of at least 120 to 130 mm or less Continue Furosemide 20 mg QD (3) Type 2 diabetes mellitus with diabetic chronic kidney disease: Code(s): E11.22 - Type 2 diabetes mellitus with diabetic chronic kidney disease Qualifiers: Diabetes mellitus chcf insulin use: with chcf use Chronic kidney disease stage: stage 3 (moderate) Chronic kidney disease stage 3 subtype: unspecified whether 3a or 3b Qualified Code(s): E11.22 - Type 2 diabetes mellitus with diabetic chronic kidney disease; N18.30 - Chronic kidney disease, stage 3 unspecified; 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 Plan: His HgbA1c was at 6.6% when most recently checked last month (was previously at 7.4% a few months ago) - goal is < 7.0% Reinforced diabetic diet Continue Metformin 500 mg 2 tablets BID, Jardiance 25 mg QD and Tresiba 30 units QD Will recheck his FBS and HgbA1c in 3 months for follow up (4) Chronic kidney disease (CKD), stage III (moderate): Code(s): N18.30 - Chronic kidney disease, stage 3 unspecified Qualifiers: Chronic kidney disease stage 3 subtype: unspecified whether 3a or 3b Qualified Code(s): N18.30 - Chronic kidney disease, stage 3 unspecified Plan: His renal function appeared stable on his recent labs Will continue to monitor his renal function closely/regularly (5) Chronic idiopathic constipation: Code(s): K59.04 - Chronic idiopathic constipation Plan: Patient is again encouraged to increase his oral fluids and dietary fiber and to continue taking Linzess 290 mcg QD, Docusate 100 mg BID PRN, Miralax 17 gm QD, MOM at bedtime PRN and Fiber Therapy 1000 mg TID Follow-up with GI as scheduled for continuing management of his chronic constipation He was scheduled for colonoscopy with Dr. Ponce on 03/17/23 but the procedure was cancelled as it appears that he could not do the prep for the procedure properly and he has yet to be rescheduled for this (6) Calcaneal spur of right foot: Code(s): M77.31 - Calcaneal spur, right foot Plan: X-rays of his right foot done back in October 2023 revealed (+) large calcaneal spurs He has since been seeing [facility] and reports that he was advised by podiatry that he may require foot surgery to correct his heel issues Per podiatry report, he has achilles tendinitis as well as a Angela's deformity of the right heel Patient is advised that I will defer the management of his podiatric issues to Dr. Pierre (7) Hearing impairment: Code(s): H91.90 - Unspecified hearing loss, unspecified ear Qualifiers: Hearing loss type: unspecified Laterality: unspecified laterality Qualified Code(s): H91.90 - Unspecified hearing loss, unspecified ear Plan: Per request, will refer him to Speech and Hearing for further evaluation of his hearing issues (8) Erectile dysfunction: Code(s): N52.9 - Male erectile dysfunction, unspecified Qualifiers: Erectile dysfunction type: unspecified Qualified Code(s): N52.9 - Male erectile dysfunction, unspecified Plan: Patient states that his insurance would not cover the Rx for Sildenafil and is requesting for a printed Rx, which we have provided him with today Reminded that at one point, he was prescribed a vaccum device by Dr. Arguello a few years ago He is advised to follow up with urology as scheduled for this issue (9) Schizoaffective disorder: Code(s): F25.9 - Schizoaffective disorder, unspecified Qualifiers: Schizoaffective disorder type: unspecified Qualified Code(s): F25.9 - Schizoaffective disorder, unspecified Plan: Continue Clozapine 100 mg 3 tablets daily at bedtime and Benztropine 0.5 mg BID Follow-up with Psychiatry at [facility] as scheduled (10) Obesity (BMI 30-39.9): Code(s): E66.9 - Obesity, unspecified Plan: Reinforced diet/exercise as tolerated/lose weight Plan Follow up in 3 months Orders: Orders Hemoglobin A1c 3 Months E11.9 - Type 2 diabetes mellitus without complications Lipid Panel 3 Months E78.00 - Pure hypercholesterolemia, unspecified Comprehensive Sesser. Panel Fast 3 Months E78.00 - Pure hypercholesterolemia, unspecified Complete Blood Count Auto Diff 3 Months D64.9 - Anemia, unspecified Microalbumin, Random (w Creat) 3 Months E11.9 - Type 2 diabetes mellitus without complications TSH reflex Free T4 3 Months E78.00 - Pure hypercholesterolemia, unspecified Vitamin D 25-OH Total 3 Months E55.9 - Vitamin D deficiency, unspecified UA CC w/rflx Micro + Cult 3 Months R30.0 - Dysuria Referrals Speech and Hearing Referral H91.90 - Unspecified hearing loss, unspecified ear Medications: Refilled sildenafil administer 30 minutes to 4 hours before activity 50 mg PO DAILY PRN 10 tabs 0RF sexual activity Coding Level of Care Code Est Pt Level 4 (35399) Complex EM visit Add On G2211 Diagnoses Pure hypercholesterolemia E78.00 Benign essential hypertension I10 Type 2 diabetes mellitus with stage 3 chronic kidney disease, with long-term current use of insulin, unspecified whether stage 3a or 3b CKD E11.22; N18.30; Z79.4 Diabetes mellitus chcf insulin use: with chcf use Chronic kidney disease stage: stage 3 (moderate) Chronic kidney disease stage 3 subtype: unspecified whether 3a or 3b Stage 3 chronic kidney disease, unspecified whether stage 3a or 3b CKD N18.30 Chronic kidney disease stage 3 subtype: unspecified whether 3a or 3b Chronic idiopathic constipation K59.04 Calcaneal spur of right foot M77.31 Hearing loss, unspecified hearing loss type, unspecified laterality H91.90 Hearing loss type: unspecified Laterality: unspecified laterality Erectile dysfunction, unspecified erectile dysfunction type N52.9 Erectile dysfunction type: unspecified Schizoaffective disorder, unspecified type F25.9 Schizoaffective disorder type: unspecified Obesity (BMI 30-39.9) E66.9
== END 2024-05-03 11:05 | disposition home or self-care (01) ==
PROVIDERS: PCP Internal Medicine; Visit Provider Internal Medicine
DX: I12.9 Hypertensive chronic kidney disease with stage 1 through stage 4 chronic kidney disease, or unspecified chronic kidney disease (principal); E11.22 Type 2 diabetes mellitus with diabetic chronic kidney disease; N18.30 Chronic kidney disease, stage 3 unspecified; Z79.4 Long term (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; F25.9 Schizoaffective disorder, unspecified; E78.00 Pure hypercholesterolemia, unspecified; K59.04 Chronic idiopathic constipation; M77.31 Calcaneal spur, right foot; H91.90 Unspecified hearing loss, unspecified ear; N52.9 Male erectile dysfunction, unspecified; E66.9 Obesity, unspecified

== ENCOUNTER → 2024-05-03 09:52 | Outpatient (BNVA) | payer OTHER, SELFPAY | PROVIDERS: PCP Internal Medicine; Visit Provider Internal Medicine | DX: E78.00 Pure hypercholesterolemia, unspecified (principal); I12.9 Hypertensive chronic kidney disease with stage 1 through stage 4 chronic kidney disease, or unspecified chronic kidney disease; E11.22 Type 2 diabetes mellitus with diabetic chronic kidney disease; N18.30 Chronic kidney disease, stage 3 unspecified; Z79.4 Long term (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; K59.04 Chronic idiopathic constipation; M77.31 Calcaneal spur, right foot | CPT/HCPCS: 99212 ==

== ENCOUNTER 2024-05-14 07:48 | Outpatient (REF) | payer OTHER, SELFPAY ==
[2024-05-14 08:05] LABS: MANUAL DIFF FLAG NO
[2024-05-14 10:15] LABS: Basophils Percent Auto 0.2 % (0-2); Hematocrit 44.7 % (42.0-52.0); Imm Gran Abs Auto 0.03 X10*3/uL (0.00-0.03); Imm Gran Pct Auto 0.5 % (0.0-0.4); Lymphocytes Absolute Auto 1.3 X10*3/uL (1.2-4.9); Mean Corpuscular HGB Conc 35.8 g/dl (31.0-36.0); Mean Corpuscular Hemoglobin 30.7 pg (27.0-33.0); Mean Corpuscular Volume 85.8 fL (80.0-98.0); Mean Platelet Volume 10.5 fL (9.4-12.4); Monocytes Absolute Auto 0.5 X10*3/uL (0.1-1.2); Monocytes Percent Auto 7.7 % (2-11); Neutrophils Absolute Auto 4.8 x10*3/uL (2.0-8.3); Neutrophils Percent Auto 72.6 % (45-73); Platelet Count 110 X10*3/uL (160-400); Red Blood Count 5.21 X10*6/uL (4.60-5.80); Red Cell Distribution Width 12.6 % (11.0-16.0); White Blood Count 6.6 X10*3/uL (4.8-10.8)
== END 2024-05-14 07:49 | disposition home or self-care (01) ==
LOC: HO.LABR 07:48
PROVIDERS: PCP Internal Medicine; Visit Provider Psychiatry & Neurology Psychiatry
DX: F25.0 Schizoaffective disorder, bipolar type (principal); Z79.899 Other long term (current) drug therapy; S81.801A Unspecified open wound, right lower leg, initial encounter
CPT/HCPCS: 36415; 85025; 99212

== ENCOUNTER 2024-05-14 10:11 | Outpatient (AMB) | payer OTHER, SELFPAY ==
[2024-05-14 10:15] VITALS: BP 122/74; PULSE 91; TEMP 36.1; O2SAT 97; BMI 35.7
--- NOTE | 2024-05-14 10:15 | MHC.OFFWIV ---
Intake Vital Signs 05/14/24 10:15 Height 6 ft 1 in Weight 270 lb 4 oz BMI 35.7 BP 122/74 Blood Pressure Location Lt brachial Position Sitting Pulse 91 Pulse Source Pulse Oximeter Temp 97.0 F Temp Source Temporal Artery Scan Pulse Oximetry (%) 97 Oxygen Delivery Method Room Air Intake Visit Reasons: EP-rt calf open wound, pain Intake Note: Pt presents to the office today for a right calf wound. Pt states it happened a few weeks ago but denies any injury to it. Pt isnt sure how it got there. Pt states it is painful and red now. Pt states fluid comes out if it sometimes but cannot tell me what color it is. Patient Tobacco Use Status: Former Tobacco user Allergies No Known Allergies [No Known Allergies*] Allergy (Verified 05/14/24 10:17) HPI HPI Comments History of Present Illness Details Patient is a 63-year-old male complaining of a wound to his right calf that has been there for the last 2 weeks. He denies any known injury, He states he is a type 2 diabetic and his blood sugars have generally been in the 150s to high 200s. He has not done anything to try to heal the wound. He states at night sometimes he can feel it leaking fluid but can not tell me what color the fluid is but states that it is very thin fluid. [facility] Medical History Acute diarrhea Pain in both feet Calcaneal spur of right foot Achilles tendinitis Callus of foot Right hand pain Abdominal bloating Vertigo Impacted cerumen, right ear Calcaneal spur Colon cancer screening COVID-19 Pre-op examination Elevated LFTs Encounter for Medicare annual wellness exam Bowel obstruction Melena Knee pain, bilateral Gastroenteritis Healed wound Chronic idiopathic constipation Chronic idiopathic constipation Hospital discharge follow-up Knee osteoarthritis Obesity (BMI 30-39.9) Schizoaffective disorder Pure hypercholesterolemia Benign essential hypertension Chronic kidney disease (CKD), stage III (moderate) Type 2 diabetes mellitus with diabetic chronic kidney disease Morbid obesity Dyslipidemia 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 mellitus residential (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 Diabetic polyneuropathy associated with 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 mellitus Schizo affective schizophrenia Diabetes type 2, uncontrolled Surgical History History of repair of congenital cleft palate Hx of circumcision Family History Father HTN (hypertension) Mother Diabetes Other Mental health problem Social History Household Members: None Housing: Apartment Are you a primary acute care nurse practitioner to a significant other at home: No Do you presently have visiting nurse or other home services: Yes Alcohol intake: former Patient Tobacco Use Status: Former Tobacco user Tobacco use type: Cigarette Cigarettes Per Day: 15 Years Smoked: 8 quit 30 years ago e-Cigarette/Vaping Use: Never Used Second Hand Smoke Exposure: No service: No Current occupational status: employed Current occupation: [employer] Cognitive needs: No Hearing needs: No Vision needs: Yes (glasses) Review of Systems Const All systems reviewed & are unremarkable except as noted in HPI and below Physical Exam Vital Signs: Last Vital Signs Temp 97.0 F 05/14/24 10:15 Pulse 91 05/14/24 10:15 BP 122/74 05/14/24 10:15 Pulse Ox 97 05/14/24 10:15 Oxygen Delivery Method Room Air 05/14/24 10:15 BMI result Body Mass Index 35.7 Const General: cooperative, healthy appearing, comfortable, no acute distress and well developed Orientation/consciousness: patient oriented x3 Limitations: no limitations HEENT Head: Yes normal to inspection Neck Neck: Yes normal visual inspection and Yes supple Neuro General: patient oriented x3 Extrem Other: Right lateral mid calf has two small 0.5 cm areas of a yellowish/maroon scab surrounded by slight erythema, no tenderness to palpation, no warmth or other signs of infection noted, no ecchymosis. Assessment & Plan Assessment & Plan (1) Wound of lower extremity: Code(s): S81.809A - Unspecified open wound, unspecified lower leg, initial encounter Qualifiers: Encounter type: initial encounter Laterality: right Qualified Code(s): S81.801A - Unspecified open wound, right lower leg, initial encounter Plan: Gave patient has some bacitracin and recommended he use it twice a day for the next week or 2 and leave the wound open to air unless he goes out in public, he could cover it with a Band-Aid. Also recommended he try to obtain tight glucose control as that will expedite the healing of his wound. Plan See above Coding Level of Care Code Est Pt Level 3 (61372) Diagnoses Wound of right lower extremity, initial encounter S81.801A Encounter type: initial encounter Laterality: right
== END 2024-05-14 10:36 | disposition home or self-care (01) ==
PROVIDERS: PCP Internal Medicine; Visit Provider Physician Assistant
DX: S81.801A Unspecified open wound, right lower leg, initial encounter (principal)

== ENCOUNTER 2024-06-12 07:52 | Outpatient (REF) | payer OTHER, SELFPAY ==
[2024-06-12 08:21] LABS: MANUAL DIFF FLAG NO
[2024-06-12 09:09] LABS: Basophils Percent Auto 0.2 % (0-2); Hematocrit 42.2 % (42.0-52.0); Hemoglobin 14.8 g/dl (14.0-18.0); Imm Gran Abs Auto 0.03 X10*3/uL (0.00-0.03); Imm Gran Pct Auto 0.5 % (0.0-0.4); Lymphocytes Absolute Auto 1.4 X10*3/uL (1.2-4.9); Lymphocytes Percent Auto 23.4 % (20-40); Mean Corpuscular HGB Conc 35.1 g/dl (31.0-36.0); Mean Corpuscular Volume 85.6 fL (80.0-98.0); Mean Platelet Volume 10.4 fL (9.4-12.4); Monocytes Absolute Auto 0.5 X10*3/uL (0.1-1.2); Monocytes Percent Auto 7.6 % (2-11); Neutrophils Percent Auto 68.3 % (45-73); Platelet Count 106 X10*3/uL (160-400); Red Blood Count 4.93 X10*6/uL (4.60-5.80); Red Cell Distribution Width 12.6 % (11.0-16.0); White Blood Count 5.9 X10*3/uL (4.8-10.8)
== END 2024-06-12 07:53 | disposition home or self-care (01) ==
LOC: HO.LABR 07:52
PROVIDERS: PCP Internal Medicine; Visit Provider Psychiatry & Neurology Psychiatry
DX: F25.0 Schizoaffective disorder, bipolar type (principal)
CPT/HCPCS: 36415; 85025

== ENCOUNTER 2024-06-24 13:52 | Outpatient (AMB) | payer OTHER, SELFPAY ==
--- NOTE | 2024-06-24 13:56 | AM.OFFWIN_ITS ---
Intake Vital Signs 06/24/24 13:58 Weight 267 lb BP 120/72 Blood Pressure Location Rt brachial Position Sitting Pulse 80 Pulse Source Pulse Oximeter Pulse Oximetry (%) 96 Oxygen Delivery Method Room Air Intake Visit Reasons: EP difficulty hearing Intake Note: Patient here for loss of hearing. Patient Tobacco Use Status: Former Tobacco user Allergies No Known Allergies [No Known Allergies*] Allergy (Verified 06/24/24 14:00) Do you need a note to return to daycare/school/sports/work: No HPI EP difficulty hearing HPI Details This note is constructed using voice recognition software. While every effort has been made to ensure accuracy, fagot heater errors may have been included. The patient is a 63 year old male who presents to the clinic today with hearing loss on the right. He reports it started suddenly last night. He has had this before and it was related to impacted wax. He denies fever, chills, cough, shortness of breath, or pain. He has been trying Debrox drops which he reports provides some relief when he uses that. [facility] Medical History Acute diarrhea Pain in both feet Calcaneal spur of right foot Achilles tendinitis Callus of foot Right hand pain Abdominal bloating Vertigo Impacted cerumen, right ear Calcaneal spur Colon cancer screening COVID-19 Pre-op examination Elevated LFTs Encounter for Medicare annual wellness exam Bowel obstruction Melena Knee pain, bilateral Gastroenteritis Healed wound Chronic idiopathic constipation Chronic idiopathic constipation Hospital discharge follow-up Knee osteoarthritis Obesity (BMI 30-39.9) Schizoaffective disorder Pure hypercholesterolemia Benign essential hypertension Chronic kidney disease (CKD), stage III (moderate) Type 2 diabetes mellitus with diabetic chronic kidney disease Morbid obesity Dyslipidemia 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 mellitus correction (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 Diabetic polyneuropathy associated with 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 mellitus Schizo affective schizophrenia Diabetes type 2, uncontrolled Surgical History History of repair of congenital cleft palate Hx of circumcision Family History Father HTN (hypertension) Mother Diabetes Other Mental health problem Social History Household Members: None Housing: Apartment Are you a primary occasional caregiver to a significant other at home: No Do you presently have visiting nurse or other home services: Yes Alcohol intake: former Patient Tobacco Use Status: Former Tobacco user Tobacco use type: Cigarette Cigarettes Per Day: 15 Years Smoked: 8 quit 30 years ago e-Cigarette/Vaping Use: Never Used Second Hand Smoke Exposure: No service: No Current occupational status: employed Current occupation: [employer] Cognitive needs: No Hearing needs: No Vision needs: Yes (glasses) Review of Systems Const All systems reviewed & are unremarkable except as noted in HPI and below Physical Exam Vital Signs: Last Vital Signs Pulse 80 06/24/24 13:58 BP 120/72 06/24/24 13:58 Pulse Ox 96 06/24/24 13:58 Oxygen Delivery Method Room Air 06/24/24 13:58 Const General: cooperative, healthy appearing, comfortable and no acute distress Orientation/consciousness: patient oriented x3 HEENT Head: Yes normal to inspection and Yes normocephalic Ears: TM normal on the left, EAC's normal, mastoids normal and unable to visualize TM (cerumen impaction) on the right General nose exam: Normal external nose present Face and sinus: Yes normal facial exam Resp Effort & Inspection: normal respiratory effort and able to speak in complete sentences Neuro General: patient oriented x3 Office Procedures Cerumen Removal From which ear canal was the cerumen removed: left Removal: irrigation Notes: patient tolerated procedure well and no complications [id number] Irrigation/Lavage Assessment & Plan Assessment & Plan (1) Impacted cerumen of right ear: Code(s): H61.21 - Impacted cerumen, right ear Plan: In office irrigation partially successful, removing outer plug of wax, however thicker dry hard cerumen remains in canal deeper. Advised patient to use Debrox or other generic cerumen softening product for generalized maintenance, patient requested prescription, which was sent to the pharmacy. Advised avoidance of sticking items into the ear. Advised follow up as needed with worsening symptoms. Medications: New carbamide peroxide 6.5% (Debrox) 5 drps otic (ear) left DAILY 4 days 15 mL 0RF Coding Level of Care Code Est Pt Level 3 (10923) Diagnoses Impacted cerumen of right ear H61.21 CPT Codes Office Procedure - CPT: 71684-Ijn Irrigation/Lavage ([id number])
[2024-06-24 13:58] VITALS: BP 120/72; PULSE 80; O2SAT 96
== END 2024-06-24 14:34 | disposition home or self-care (01) ==
PROVIDERS: PCP Internal Medicine; Visit Provider Registered Nurse
DX: H61.21 Impacted cerumen, right ear (principal)

== ENCOUNTER → 2024-06-24 13:52 | Outpatient (BNVA) | payer OTHER, SELFPAY | PROVIDERS: PCP Internal Medicine; Visit Provider Registered Nurse | DX: H61.21 Impacted cerumen, right ear (principal) | CPT/HCPCS: 69209; 99212 ==

== ENCOUNTER 2024-06-25 15:03 | Emergency (ER) | payer OTHER, SELFPAY ==
--- NOTE | ~2024-06-25 | XR_ITS ---
EXAMINATION: XR ABDOMEN KUB CLINICAL INDICATION: Constipation COMPARISON: 04/21/2024 TECHNIQUE: AP view of the abdomen. FINDINGS: Large stool throughout the colon. No bowel dilatation to suggest obstruction. XR/XR KUB IMPRESSION: Large stool burden. No evidence of obstruction. Electronically signed by: Kojo Chavez MD 06/25/2024 04:31 PM [facility]
[2024-06-25 15:34] VITALS: BP 124/74; PULSE 98; RESP 16; TEMP 36.8; O2SAT 96; BMI 35.9
--- NOTE | 2024-06-25 15:35 | ED_ITS ---
HPI - General Adult General Chief complaint: Abdominal Pain Stated complaint: constipation Time Seen by Provider: 06/26/24 03:43 Source: patient Mode of arrival: ambulatory Limitations: no limitations History of Present Illness ED Provider: Dr. Derrek Iglesias HPI narrative: 63-year-old male with a history of diabetes mellitus, hyperlipidemia, schizoaffective disorder, chronic idiopathic constipation who presents emergency department for evaluation of constipation with no bowel movement times several weeks. Patient states that he has been taking milk of magnesia with no significant bowel movements. He states he has also been taking simethicone for gas and this is not helped his constipation. The patient states he feels bloated in his having abdominal pain especially when he tries to move his bowels. He denied fever, chills, nausea, vomiting, frequency, urgency or dysuria. Related Data Home Medications ?Medication ?Instructions ?Recorded ?Confirmed hydroxyzine pamoate 50 mg capsule 50 mg PO TID PRN Anxiety 09/18/20 05/03/24 benztropine 0.5 mg tablet 0.5 mg PO BID 04/29/22 05/03/24 L.acidoph, paracasei,B. lactis 10 cell PO 05/12/22 05/03/24 billion cell capsule (Digestive Advantage Advanced Probiotic) clozapine 100 mg tablet 100 mg PO TID 05/12/22 05/03/24 magnesium hydroxide 400 mg/5 mL 10 ml PO BEDTIME PRN 01/11/24 05/03/24 oral suspension (Milk of Magnesia) Previous Rx's ?Medication ?Instructions ?Recorded polyethylene glycol 3350 17 gram 17 g PO BID #30 ea 08/12/22 oral powder packet (Miralax) sennosides 8.6 mg tablet (senna) 17.2 mg (2 x 8.6 mg) PO BEDTIME 02/24/23 for constipation #60 tabs blood-glucose meter (FreeStyle #1 ea 03/27/23 Lite Meter kit) flash glucose scanning reader #1 ea 04/10/23 (FreeStyle Jody 2 [place]) Tresiba FlexTouch U-200 200 30 unit (0.15 mL) subcut DAILY 90 07/03/23 unit/mL (3 mL) subcutaneous pen days #9 mL (insulin degludec) phenol 1.5 %-glycerin 33 % mucosal 1 spray mucous membrane Q6-8H PRN 09/03/23 spray (Chloraseptic Max Sore sore throat #118 mL Throat) docusate sodium 100 mg capsule 100 mg PO BID #60 caps 10/19/23 methylcellulose (laxative) 500 mg 1,000 mg (2 x 500 mg) PO TID #180 10/19/23 tablet (Fiber Therapy tabs (methylcellulose)) furosemide 20 mg tablet 20 mg PO DAILY #90 tabs 11/21/23 cholecalciferol (vitamin D3) 25 25 mcg PO DAILY #90 caps 12/21/23 mcg (1,000 unit) capsule ketoconazole 2 % topical cream 1 appl topical DAILY #30 grams 01/01/24 bisacodyl 5 mg tablet,delayed 10 mg (2 x 5 mg) PO BID #90 tabs 01/02/24 release acetaminophen 500 mg tablet 1,000 mg (2 x 500 mg) PO Q6H PRN 01/04/24 pain #30 tabs atorvastatin 10 mg tablet 10 mg PO DAILY #90 tabs 01/04/24 cyclobenzaprine 10 mg tablet 10 mg PO DAILY PRN muscle spasm 01/04/24 #10 tabs lidocaine 5 % topical patch 1 patch topical DAILY #15 ea 01/04/24 linaclotide 290 mcg capsule 290 mcg PO QAM 30 days #30 caps 02/08/24 (Linzess) lactulose 20 gram/30 mL oral 20 g (30 mL) PO BID #2,880 mL 03/07/24 solution psyllium seed (sugar) oral powder 1 tsp PO BID #1,254 grams 03/07/24 (Metamucil (sugar) oral powder) blood-glucose meter (FreeStyle #1 ea 04/01/24 Lite Meter kit) ibuprofen 800 mg tablet 800 mg PO Q8H PRN for pain 30 days 04/24/24 #90 tabs pen needle, diabetic 29 gauge x #100 ea 04/24/2408/15 (BD Ultra-Fine Original Pen Needle) gabapentin 300 mg capsule 300 mg PO BEDTIME 90 days #90 caps 04/30/24 metformin 500 mg tablet 1,000 mg (2 x 500 mg) PO BID 90 05/01/24 days #360 tabs sildenafil 50 mg tablet 50 mg PO DAILY PRN sexual activity 05/03/24 #10 tabs lancets 28 gauge (FreeStyle #100 ea 05/08/24 Lancets) metoclopramide HCl 5 mg tablet 5 mg PO TID #90 tabs 05/08/24 empagliflozin 25 mg tablet 25 mg PO QAM #30 tabs 06/05/24 (Jardiance) simethicone 80 mg chewable tablet 160 mg (2 x 80 mg) PO TID 06/05/24 abdominal distention #180 tabs blood sugar diagnostic (FreeStyle #100 ea 06/15/24 Lite Strips) carbamide peroxide 6.5 % ear drops 5 drp otic (ear) left DAILY 4 days 06/24/24 (Debrox) #15 mL Allergies Allergy/AdvReac Type Severity Reaction Status Date / Time No Known Allergies Allergy Verified 06/25/24 15:35 [No Known Allergies*] Review of Systems 2 Review of Systems: Yes all other systems are reviewed and are negative PMFSH Past Medical History Medical History Acute diarrhea Pain in both feet Calcaneal spur of right foot Achilles tendinitis Callus of foot Right hand pain Abdominal bloating Vertigo Impacted cerumen, right ear Calcaneal spur Colon cancer screening COVID-19 Pre-op examination Elevated LFTs Encounter for Medicare annual wellness exam Bowel obstruction Melena Knee pain, bilateral Gastroenteritis Healed wound Chronic idiopathic constipation Chronic idiopathic constipation Hospital discharge follow-up Knee osteoarthritis Obesity (BMI 30-39.9) Schizoaffective disorder Pure hypercholesterolemia Benign essential hypertension Chronic kidney disease (CKD), stage III (moderate) Type 2 diabetes mellitus with diabetic chronic kidney disease Morbid obesity Dyslipidemia 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 mellitus 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 Diabetic polyneuropathy associated with 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 mellitus Schizo affective schizophrenia Diabetes type 2, uncontrolled Surgical History History of repair of congenital cleft palate Hx of circumcision Family History Family History Father HTN (hypertension) Mother Diabetes Other Mental health problem Social History Social History Household Members: None Housing: Apartment Are you a primary director of healthcare systems to a significant other at home: No Do you presently have visiting nurse or other home services: Yes Alcohol intake: former Patient Tobacco Use Status: Former Tobacco user Tobacco use type: Cigarette Cigarettes Per Day: 15 Years Smoked: 8 quit 30 years ago Smoked in Last 30 Days: No e-Cigarette/Vaping Use: Never Used Second Hand Smoke Exposure: No Use of substances other than those prescribed or required for medical reasons: No Advance Directives: No Advance Directives Information Provided: Yes Do you have a plan to hurt others: No Plan service: No Current occupational status: employed Current occupation: [employer] Cognitive needs: No Hearing needs: No Vision needs: Yes (glasses) Physical Exam ED Vital Signs: Vital Signs - 24 hr 06/25/24 15:34 06/25/24 22:11 06/26/24 00:48 Temperature 98.3 F 97.4 F 97.6 F Pulse Rate 98 82 78 Respiratory Rate 16 16 18 Blood Pressure 124/74 137/85 136/64 Pulse Oximetry 96 99 99 Oxygen Delivery Method Room Air Room Air BMI result Body Mass Index 35.9 Vital signs were normal except for elevated systolic blood pressure is 137/85 and 136/64. Exam: General: Awake, alert in no distress, weight is 123.5 kg with an elevated BMI of 35.9 kg per m2 Head: Normocephalic, atraumatic Abdomen: soft, obese, non-tender, nondistended, normal bowel sounds Rectal exam: No external hemorrhoids or fissures noted, sphincter had normal tone, there was no impaction and no stool that could be felt with digital exam Course Course Course Narrative: This is a rapid medical exam performed by Romelia Gonzales NP: Additional HPI, ROS, PE not included below will be deferred to primary provider. Patient is a 63-year-old male with history of chronic idiopathic constipaiton, T2DM, schizoaffective disorder, morbid obesity presenting with complaint of constipation, 4/10 abdominal pain. States last BM was 5 weeks ago. UNable to report if he is passing gas. Using miralax without change. Plan: labs, ua, kub Medical Decision Making Medical Decision Making MDM Narrative: 63-year-old male with a history of diabetes mellitus, hyperlipidemia, schizoaffective disorder, chronic idiopathic constipation who presents emergency department for evaluation of constipation with no bowel movement times several weeks. Vital signs did reveal elevated blood pressures otherwise unremarkable. Abdominal exam he was nontender. Rectal exam did not reveal any impaction. Differential diagnosis: ?Includes but is not limited to constipation, bowel impaction, bowel obstruction, anemia, electrolyte abnormalities Course: 04:04 My interpretation patient's laboratory evaluation is as follows: CBC was normal. CMP revealed an elevated glucose of 225. Elevated AST and ALT 75 and 143. Urinalysis was negative. KUB did reveal large stool burden but no evidence for bowel obstruction Patient did not have significant impaction. I ordered a soapsuds enema to be administered by nursing staff 04:51 Patient was significant bowel movement after receiving the soapsuds enema. Patient was discharged home and advised to follow up with his PCP for further management of his chronic constipation Admission/Observation Consideration of admission/observation: Escalation of care including admission/observation considered (Yes) Lab Data MDM Lab Attestation statement: I reviewed the patient's lab results. 06/25/24 16:12 06/25/24 16:12 Labs: Lab Results 06/25/24 06/25/24 Range/Units 16:12 22:37 WBC 8.2 (4.8-10.8) X10*3/uL RBC 5.25 (4.60-5.80) X10*6/uL Hgb 15.8 (14.0-18.0) g/dl Hct 43.7 (42.0-52.0) % MCV 83.2 (80.0-98.0) fL MCH 30.1 (27.0-33.0) pg MCHC 36.2 H (31.0-36.0) g/dl RDW 12.6 (11.0-16.0) % Plt Count 123 L (160-400) X10*3/uL MPV 9.8 (9.4-12.4) fL Immature Gran % (Auto) 0.4 (0.0-0.4) % Neut % (Auto) 75.1 H (45-73) % Lymph % (Auto) 16.8 L (20-40) % [place] % (Auto) 7.6 (2-11) % Eos % (Auto) 0.0 (0-4) % Baso % (Auto) 0.1 (0-2) % Lymph # (Auto) 1.4 (1.2-4.9) X10*3/uL [place] # (Auto) 0.6 (0.1-1.2) X10*3/uL Eos # (Auto) 0.0 (0.0-0.4) X10*3/uL Baso # (Auto) 0.0 (0.0-0.2) X10*3/uL Abs Immat Gran (auto) 0.03 (0.00-0.03) X10*3/uL Absolute Neuts (auto) 6.2 (2.0-8.3) x10*3/uL Absolute Nucleated RBC 0.000 (0.0-0.012) X10*3/uL Nucleated RBC % (auto) 0.0 (0.0-0.2) /100WBC Sodium 139 (135-145) mmol/L Potassium 4.0 (3.3-5.1) mmol/L Chloride 104 (96-108) mmol/L Carbon Dioxide 25 (22-29) mmol/L Anion Gap 14 (12-20) BUN 22 H (9-16) mg/dL Creatinine 1.20 (0.5-1.4) mg/dL Estim Creat Clear Calc 89.0 Estimated GFR > 60 Random Glucose 225 H (60-115) mg/dL Calcium 10.1 (8.4-10.2) mg/dL Total Bilirubin 0.5 (0.0-1.0) mg/dL AST 32 (5-37) U/L ALT 75 H (0-40) U/L Alkaline Phosphatase 143 H (39-117) U/L Total Protein 7.5 (6.5-8.0) g/dL Albumin 4.3 (3.5-5.0) g/dL Urine Color Yellow Urine Appearance Clear Urine pH 5.5 (5.0-9.0) Ur Specific [place] <= 1.005 (1.005-1.025) Urine Protein Negative (Neg-Trace) mg/dL Urine Glucose (UA) >=1000 H (Negative) mg/dL Urine Ketones Negative (Negative) mg/dL Urine Blood Negative (Negative) Urine Nitrite Negative (Negative) Ur Leukocyte Esterase Negative (Negative) Urine RBC 0-2 (0-2) /HPF Urine WBC 0-5 (0-5) /HPF Ur Squamous Epith Cells 0-2 (0-2) /HPF Urine Bacteria None Seen (None Seen) Hyaline Casts 0-2 (0-2) /LPF Independent Interpretation I performed an independent interpretation of an: Plain X-Ray Interpretation: My independent interpretation of patient's KUB is as follows: Significant stool burden with no obstructive pattern noted. Radiology Impression Discussion of test interpretation with radiology: I have reviewed the radiologist's reading. Radiologist Impression: XR KUB IMPRESSION: Large stool burden. No evidence of obstruction. Electronically signed by: Kojo Chavez MD 06/25/2024 04:31 PM Chronic Conditions Patient?s care impacted by: Diabetes Discharge Plan Discharge Clinical Impression: Acute constipation, Abdominal pain Patient Disposition: Home, Self-Care Instructions: Constipation (ED) Additional Instructions: Continue taking medications as prescribed by your providers Follow the constipation instructions above Follow-up with your doctor in 2 days. Please return to the emergency department if your symptoms get worse or if you develop any symptoms that are concerning to you. Prescriptions: No Action (DME) blood-glucose meter [FreeStyle Lite Meter] Kit See Rx Instructions .Route Qty: 1 5RF Rx Instructions: Tests 4 X/day (DME) FreeStyle Jody 2 [place] Misc See Rx Instructions .ROUTE .MEDSUPPLY Qty: 1 1RF Rx Instructions: As directed Tresiba FlexTouch U-200 200 unit/mL (3 mL) insulin pen 30 unit subcut DAILY 90 Days Qty: 9 3RF furosemide 20 mg tablet 20 mg PO DAILY Qty: 90 1RF cholecalciferol (vitamin D3) 25 mcg (1,000 unit) capsule 25 mcg PO DAILY Qty: 90 12RF bisacodyl 5 mg tablet,delayed release (DR/EC) 10 mg PO BID Qty: 90 0RF atorvastatin 10 mg tablet 10 mg PO DAILY Qty: 90 0RF Linzess 290 mcg capsule 290 mcg PO QAM 30 Days Qty: 30 6RF (DME) blood-glucose meter [FreeStyle Lite Meter] Kit See Rx Instructions .ROUTE .MEDSUPPLY Qty: 1 0RF Rx Instructions: As directed ibuprofen 800 mg tablet 800 mg PO Q8H PRN (Reason: for pain) 30 Days Qty: 90 0RF Rx Instructions: take with food (DME) pen needle, diabetic [BD Ultra-Fine Orig Pen Needle] 29 gauge x 1/2 needle See Rx Instructions .ROUTE DAILY Qty: 100 3RF Rx Instructions: As directed daily gabapentin 300 mg capsule 300 mg PO BEDTIME 90 Days Qty: 90 1RF metformin 500 mg tablet 1,000 mg PO BID 90 Days Qty: 360 1RF metoclopramide HCl 5 mg tablet 5 mg PO TID Qty: 90 0RF (DME) lancets [FreeStyle Lancets] 28 gauge misc See Rx Instructions .Route Qty: 100 4RF Rx Instructions: Tests 5x/day simethicone 80 mg tablet,chewable 160 mg PO TID Qty: 180 6RF Jardiance 25 mg tablet 25 mg PO QAM Qty: 30 3RF (DME) FreeStyle Lite Strips Strip See Rx Instructions .Route Qty: 100 5RF Rx Instructions: Tests 5X/day benztropine 0.5 mg tablet 0.5 mg PO BID lactulose 20 gram/30 mL solution 20 g PO BID Qty: 2880 0RF Metamucil (sugar) Powder 1 tsp PO BID Qty: 1254 0RF Chloraseptic Max Sore Throat 1.5-33 % spray,non-aerosol 1 spray mucous membrane Q6-8H PRN (Reason: sore throat) Qty: 118 0RF Rx Instructions: leave on area for 15 seconds then spit out hydroxyzine pamoate 50 mg capsule 50 mg PO TID PRN (Reason: Anxiety) ketoconazole 2 % cream 1 appl topical DAILY Qty: 30 0RF acetaminophen 500 mg tablet 1,000 mg PO Q6H PRN (Reason: pain) Qty: 30 0RF cyclobenzaprine 10 mg tablet 10 mg PO DAILY PRN (Reason: muscle spasm) Qty: 10 0RF lidocaine 5 % adhesive patch,medicated 1 patch topical DAILY Qty: 15 0RF Rx Instructions: leave on most painful area for up to 12 hrs clozapine 100 mg tablet 100 mg PO TID Digestive Advantage Advanced 10 billion cell capsule PO polyethylene glycol 3350 [Miralax] 17 gram powder in packet 17 g PO BID Qty: 30 6RF sennosides [senna] 8.6 mg tablet 17.2 mg PO BEDTIME Qty: 60 6RF Fiber Therapy (m-cellulose) 500 mg tablet 1,000 mg PO TID Qty: 180 5RF docusate sodium 100 mg capsule 100 mg PO BID Qty: 60 6RF magnesium hydroxide [Milk of Magnesia] 400 mg/5 mL suspension 10 ml PO BEDTIME PRN sildenafil 50 mg tablet 50 mg PO DAILY PRN (Reason: sexual activity) Qty: 10 0RF Rx Instructions: administer 30 minutes to 4 hours before activity Debrox 6.5 % drops 5 drp otic (ear) left DAILY 4 Days Qty: 15 0RF Print Language: B[place]
[2024-06-25 16:16] LABS: MANUAL DIFF FLAG NO
[2024-06-25 16:22] LABS: Basophils Percent Auto 0.1 % (0-2); Hematocrit 43.7 % (42.0-52.0); Hemoglobin 15.8 g/dl (14.0-18.0); Imm Gran Abs Auto 0.03 X10*3/uL (0.00-0.03); Imm Gran Pct Auto 0.4 % (0.0-0.4); Lymphocytes Absolute Auto 1.4 X10*3/uL (1.2-4.9); Lymphocytes Percent Auto 16.8 % (20-40); Mean Corpuscular HGB Conc 36.2 g/dl (31.0-36.0); Mean Corpuscular Hemoglobin 30.1 pg (27.0-33.0); Mean Corpuscular Volume 83.2 fL (80.0-98.0); Mean Platelet Volume 9.8 fL (9.4-12.4); Monocytes Absolute Auto 0.6 X10*3/uL (0.1-1.2); Monocytes Percent Auto 7.6 % (2-11); Neutrophils Absolute Auto 6.2 x10*3/uL (2.0-8.3); Neutrophils Percent Auto 75.1 % (45-73); Platelet Count 123 X10*3/uL (160-400); Red Blood Count 5.25 X10*6/uL (4.60-5.80); Red Cell Distribution Width 12.6 % (11.0-16.0); White Blood Count 8.2 X10*3/uL (4.8-10.8)
[2024-06-25 16:32] LABS: Alanine Aminotransferase 75 U/L (0-40); Albumin Level 4.3 g/dL (3.5-5.0); Alkaline Phosphatase 143 U/L (39-117); Anion Gap 14 (12-20); Aspartate Amino Transferase 32 U/L (5-37); Bilirubin Total 0.5 mg/dL (0.0-1.0); Blood Urea Nitrogen 22 mg/dL (9-16); Calcium 10.1 mg/dL (8.4-10.2); Carbon Dioxide 25 mmol/L (22-29); Chloride 104 mmol/L (96-108); Estimated Glomerular Filt Rate > 60; Glucose Random 225 mg/dL (60-115); Sodium 139 mmol/L (135-145); Total Protein 7.5 g/dL (6.5-8.0)
[2024-06-25 22:11] VITALS: BP 137/85; PULSE 82; RESP 16; TEMP 36.3; O2SAT 99
[2024-06-25 22:47] LABS: Appearance Urine Clear; Color Urine Yellow; Glucose Urine UA >=1000 mg/dL (Negative); Leukocyte Esterase Urine Negative (Negative); Nitrite Urine Negative (Negative); PH 5.5 (5.0-9.0); Specific Gravity - Urine <= 1.005 (1.005-1.025); UMIC TRIGGER UACC YES; Urine Blood Negative (Negative); Urine Ketones Negative (Negative); Urine Protein Negative (Neg-Trace)
[2024-06-25 22:56] LABS: Bacteria Urine None Seen (None Seen); Hyaline Casts Urine 0-2 /LPF (0-2); RBC Urine 0-2 /HPF (0-2); Squamous Epithelial Cell Urine 0-2 /HPF (0-2); WBC Urine 0-5 /HPF (0-5)
[2024-06-26 00:48] VITALS: BP 136/64; PULSE 78; RESP 18; TEMP 36.4; O2SAT 99
--- NOTE | 2024-06-26 01:00 | PC.NURSE ---
Pt in room emc 4 waiting to be seen by ED provider. Ambulates independently to and from BR.
--- NOTE | 2024-06-26 04:23 | PC.NURSE ---
MD Philip tried fecal disimpaction w/o relief. soap suds enema administered at 04:20 commode set up at bedside
--- NOTE | 2024-06-26 04:50 | PC.NURSE ---
pt had large amount of BM and states feeling much better. MD Iglesias aware.
[2024-06-26 05:03] VITALS: BP 136/64; PULSE 78; RESP 18; TEMP 36.4; O2SAT 99
== END 2024-06-26 05:04 | disposition home or self-care (01) ==
PROVIDERS: Registered Nurse Emergency; Emergency Provider Emergency Medicine Emergency Medical Services; PCP Internal Medicine
DX: K59.00 Constipation, unspecified (principal); R10.9 Unspecified abdominal pain; E11.22 Type 2 diabetes mellitus with diabetic chronic kidney disease; I12.9 Hypertensive chronic kidney disease with stage 1 through stage 4 chronic kidney disease, or unspecified chronic kidney disease; N18.30 Chronic kidney disease, stage 3 unspecified; Z79.899 Other long term (current) drug therapy
CPT/HCPCS: 36415; 74018; 80053; 81001; 85025; 99284

== ENCOUNTER 2024-06-27 12:38 | Outpatient (AMB) | payer OTHER, SELFPAY ==
--- NOTE | 2024-06-27 13:09 | A.OFFVIS_ITS ---
Vital Signs 06/27/24 13:52 Height 6 ft 1 in Weight 272 lb BMI 35.9 BP 123/81 Blood Pressure Location Lt brachial Position Sitting Pulse 84 Intake Visit Reasons: 3 month follow up Intake Note: Patient follow up for constipation. Patient cc: constipation, abdominal pain with bloating, acid reflex feeling full all the time. Patient said Simethicone 80 mg is getting him with constipation. 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 He feels this along with watching his fiber and diet is a good plan for him. His current regimen should be LInzess 290mcg, MOM, fiber and reglan 5mg tid with simthicone. However, he has many other medications accumulated but using them frequently causes him to swing widely between CIC and diarrhea. ROV 3 mos. Medications: Discontinued linaclotide (Linzess) Take first thing in the morning with a full glass of water. Discontinued Reason: Doctor's Order 145 mcg PO QAM 30 caps 3RF K58.1 - Irritable bowel syndrome with constipation TODAY'S VISIT He says he lost his hearing has not appointment at 03:00 o'clock with his primary care provider to check this. He says he has been extremely constipated and presented to our ER 2 days ago. They gave him a soapsuds enema which moved his bowels. He denies any change in any of his other chronic medications and he says that he has been consistently taking his Linzess 290, his metoclopramide 5 mg 3 times a day, his Colace twice a day, and is fiber therapy. He also tried taking his milk of magnesia that we had reserved for p.r.n. constipation use taking 3 doses 1 night than waiting 2 nights and taking another 3 without results. In the ER they gave him a soapsuds enema which seems to have cleared him. He says that he continues to try to eat vegetables and salads as in the past let us seem to help him clear his bowels. It is really difficult with Mike given his cognitive impairment to know exactly what is going on with him but he has always been difficult and has had a myriad of constipation medications in the past. The problem is he tends to alternate between constipation and then se gustavo diarrhea with rectal incontinence which I think is due to inconsistent use of a variety of medications. In the past he has done poorly utilizing MiraLax, senna, bisacodyl and lactulose because these have caused him severe gas and bloating and breakthrough diarrhea. I have stopped these medications because of this. At this point it seems like this may be a rectal impaction problem so I am going to do 2 things. I am going to increase the Reglan to 10 mg 3 times a day and I am going to add glycerin suppositories to his regimen. I have written all this out for him so that he can follow the directions in his med box. He says that the simethicone is making him feel nauseated so it is okay to stop this. Return office visit in 3 weeks [facility] Medical History Acute diarrhea Pain in both feet Calcaneal spur of right foot Achilles tendinitis Callus of foot Right hand pain Abdominal bloating Vertigo Impacted cerumen, right ear Calcaneal spur Colon cancer screening COVID-19 Pre-op examination Elevated LFTs Encounter for Medicare annual wellness exam Bowel obstruction Melena Knee pain, bilateral Gastroenteritis Healed wound Chronic idiopathic constipation Chronic idiopathic constipation Hospital discharge follow-up Knee osteoarthritis Obesity (BMI 30-39.9) Schizoaffective disorder Pure hypercholesterolemia Benign essential hypertension Chronic kidney disease (CKD), stage III (moderate) Type 2 diabetes mellitus with diabetic chronic kidney disease Morbid obesity Dyslipidemia 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 mellitus 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 Diabetic polyneuropathy associated with 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 mellitus Schizo affective schizophrenia Diabetes type 2, uncontrolled Surgical History History of repair of congenital cleft palate Hx of circumcision Family History Father HTN (hypertension) Mother Diabetes Other Mental health problem Social History Household Members: None Housing: Apartment Are you a primary career transition specialist to a significant other at home: No Do you presently have visiting nurse or other home services: Yes Alcohol intake: former Patient Tobacco Use Status: Former Tobacco user Tobacco use type: Cigarette Cigarettes Per Day: 15 Years Smoked: 8 quit 30 years ago e-Cigarette/Vaping Use: Never Used Second Hand Smoke Exposure: No service: No Current occupational status: employed Current occupation: [employer] Cognitive needs: No Hearing needs: No Vision needs: Yes (glasses) Review of Systems Const Denies fatigue, Denies fever(s), Denies night sweats, Denies poor appetite and Denies weight loss Eyes Details: Glasses Reports requires corrective lenses ENT Denies dental pain, Denies dysphagia, Reports hearing loss, Denies mouth pain, Denies odynophagia, Denies throat swelling, Denies tongue swelling and Reports other (Dentition adequate) Card Reports no additional complaints Resp Reports no additional complaints GI Details: Denies abdominal pain, Denies melena, Reports bloating, Denies hematochezia, Reports constipation, Denies GI cramping, Denies dysphagia, Denies excessive flatus, Reports early satiety, Denies heartburn, Denies diarrhea, Reports nausea, Denies odynophagia, Denies vomiting and Denies hematemesis Skin/Breast Denies pruritus, Denies lesions, Denies rash and Denies jaundice Neuro Denies Abnormal speech present Endo Denies fatigue Aller/Immun Denies throat swelling and Denies tongue swelling Physical Exam Vital Signs: Last Vital Signs Pulse 84 06/27/24 13:52 BP 123/81 06/27/24 13:52 BMI result Body Mass Index 35.9 Const General: cooperative, no acute distress, well developed and well groomed Nutritional Appearance: well nourished and obese morbidly obese Orientation/consciousness: oriented to person, oriented to place and oriented to time Limitations: language barrier and other limitations HEENT Head: Yes normocephalic and Yes atraumatic Eyes General: appearance normal, both eyes and all related structures Pupils: Equal, round and reactive pupils present Neck Neck: Yes normal visual inspection and Yes no lymphadenopathy Thyroid: Thyroid normal Resp Effort & Inspection: normal respiratory effort and able to speak in complete sentences Auscultation: clear to auscultation bilaterally Cardio Rate: regular rate Rhythm: regular rhythm Heart sounds: Normal, physiologic split S2 sound present Peripheral pulses: radial pulses present and posterior tibial pulses present GI Inspection: No distended, Yes Abdominal panniculus present and Yes obesity Palpation (GI): Soft to palpation, nontender, no guarding, not rigid and No hepatosplenomegaly present Percussion: Yes normal to percussion Auscultation: normal bowel sounds Rectal Exam - Male: Yes deferred Skin General skin exam: no rashes or lesions noted, turgor normal, skin not dry, no jaundice, No spider nevi and no striae Rashes: no rashes Nails: normal Neuro General: oriented to person, oriented to place and oriented to time Cranial nerves: Yes Equal, round and reactive pupils present Speech: No Abnormal speech present Extrem General: Yes normal to inspection, No clubbing, No cyanosis and No edema Psych Appearance: grossly normal and well kempt Mental Status: mental status grossly normal Speech and movement: Normal speech and movement present Affect: normal affect Attitude: cooperative Thought process: Circumstantial thought process present, not confabulating and Impoverished thought process present Thought content: Normal thought content present Insight: Poor insight present (Psych) Judgement: Poor judgement present (Psych) Assessment & Plan Assessment & Plan (1) Chronic idiopathic constipation: Code(s): K59.04 - Chronic idiopathic constipation Category: Medical (2) Delayed gastric emptying: Code(s): K30 - Functional dyspepsia Category: Medical (3) Schizoaffective disorder: Code(s): F25.9 - Schizoaffective disorder, unspecified Category: Medical Qualifiers: Schizoaffective disorder type: unspecified Qualified Code(s): F25.9 - Schizoaffective disorder, unspecified Plan He says he lost his hearing has not appointment at 03:00 o'clock with his primary care provider to check this. He says he has been extremely constipated and presented to our ER 2 days ago. They gave him a soapsuds enema which moved his bowels. He denies any change in any of his other chronic medications and he says that he has been consistently taking his Linzess 290, his metoclopramide 5 mg 3 times a day, his Colace twice a day, and is fiber therapy. He also tried taking his milk of magnesia that we had reserved for p.r.n. constipation use taking 3 doses 1 night than waiting 2 nights and taking another 3 without results. In the ER they gave him a soapsuds enema which seems to have cleared him. He says that he continues to try to eat vegetables and salads as in the past let us seem to help him clear his bowels. It is really difficult with Richardubaldo given his cognitive impairment to know exactly what is going on with him but he has always been difficult and has had a myriad of constipation medications in the past. The problem is he tends to alternate between constipation and then severe diarrhea with rectal incontinence which I think is due to inconsistent use of a variety of medications. In the past he has done poorly utilizing MiraLax, senna, bisacodyl and lactulose because these have caused him severe gas and bloating and breakthrough diarrhea. I have stopped these medications because of this. Chronic medications that certainly complicate the picture as well are his Lasix, clozapine, his benztropine, his metformin Jardiance side effects, and is Jardiance do the osmotic effect. At this point it seems like this may be a rectal impaction problem so I am going to do 2 things. I am going to increase the Reglan to 10 mg 3 times a day and I am going to add glycerin suppositories to his regimen. I have written all this out for him so that he can follow the directions in his med box. He says that the simethicone is making him feel nauseated so it is okay to stop this. Return office visit in 3 weeks Medications: Discontinued lactulose Discontinued Reason: Doctor's Order 20 grams (30 mL) PO BID 2,880 mL 0RF sennosides (senna) Discontinued Reason: Doctor's Order 17.2 mg (2 x 8.6 mg) PO BEDTIME 60 tabs 6RF for constipation Patient Instructions: Mike Cornejo 1.Stop the simethicone. 2.I am increasing the metoclopramide from 5mg 3 times a day to 10mg 3 times a day. If you want you can take 2 tablets of the 5mg dose 3 times a day until you get the higher dose. 3.I am sending a new medicine called glycerin suppositories, please use 2 of these every day if you have not had a bowel movement until you have a bowel movement. Coding Level of Care Code Est Pt Level 3 (27680) Diagnoses Chronic idiopathic constipation K59.04 Delayed gastric emptying K30 Schizoaffective disorder, unspecified type F25.9 Schizoaffective disorder type: unspecified
[2024-06-27 13:52] VITALS: BP 123/81; PULSE 84; BMI 35.9
== END 2024-06-27 14:53 | disposition home or self-care (01) ==
PROVIDERS: PCP Internal Medicine; Visit Provider Nurse Practitioner
DX: K59.04 Chronic idiopathic constipation (principal); K30 Functional dyspepsia; F25.9 Schizoaffective disorder, unspecified
CPT/HCPCS: 99213

== ENCOUNTER → 2024-06-27 12:38 | Outpatient (BNVA) | payer OTHER, SELFPAY | PROVIDERS: PCP Internal Medicine; Visit Provider Nurse Practitioner | DX: K59.04 Chronic idiopathic constipation (principal); K30 Functional dyspepsia; F25.9 Schizoaffective disorder, unspecified | CPT/HCPCS: 99212 ==

== ENCOUNTER 2024-07-01 10:15 | Outpatient (AMB) | payer OTHER, SELFPAY ==
[2024-07-01 11:18] VITALS: BP 114/66; PULSE 92; TEMP 36.1; O2SAT 97; BMI 35.9
--- NOTE | 2024-07-01 11:18 | MHC.OFFWIV ---
Intake Vital Signs 07/01/24 11:18 Height 6 ft 1 in Weight 272 lb BMI 35.9 BP 114/66 Blood Pressure Location Lt brachial Position Sitting Pulse 92 Pulse Source Pulse Oximeter Temp 97.0 F Temp Source Temporal Artery Scan Pulse Oximetry (%) 97 Oxygen Delivery Method Room Air Intake Visit Reasons: EP cold, loss hearing on RT side, weak, tired Intake Note: Mike is a 63 year old male who presents to the office today for a cold x2 days and right ear hearing loss. Patient Tobacco Use Status: Former Tobacco user Allergies No Known Allergies [No Known Allergies*] Allergy (Verified 07/01/24 11:22) HPI EP cold, loss hearing on RT side, weak, tired HPI Details This note is constructed using voice recognition software. While every effort has been made to ensure accuracy, operational risk consultant errors may have been included. The patient is a 63 year old male who presents to the clinic today with right-sided hearing loss. Patient reports that he was seen in the clinic approximately one-week ago, where we identified cerumen impaction. He has since been using Debrox eardrops which he reports as helping. He denies pain, fever. He does report that he is also struggling with an upper respiratory infection, and that the hearing loss has had him more frustrated. He has no complaints about his upper respiratory infection, in his treating this at home accordingly. He requests prescription for cough syrup. [facility] Medical History Acute diarrhea Pain in both feet Calcaneal spur of right foot Achilles tendinitis Callus of foot Right hand pain Abdominal bloating Vertigo Impacted cerumen, right ear Calcaneal spur Colon cancer screening COVID-19 Pre-op examination Elevated LFTs Encounter for Medicare annual wellness exam Bowel obstruction Melena Knee pain, bilateral Gastroenteritis Healed wound Chronic idiopathic constipation Chronic idiopathic constipation Hospital discharge follow-up Knee osteoarthritis Obesity (BMI 30-39.9) Schizoaffective disorder Pure hypercholesterolemia Benign essential hypertension Chronic kidney disease (CKD), stage III (moderate) Type 2 diabetes mellitus with diabetic chronic kidney disease Morbid obesity Dyslipidemia 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 mellitus 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 Diabetic polyneuropathy associated with 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 mellitus Schizo affective schizophrenia Diabetes type 2, uncontrolled Surgical History History of repair of congenital cleft palate Hx of circumcision Family History Father HTN (hypertension) Mother Diabetes Other Mental health problem Social History Household Members: None Housing: Apartment Are you a primary critical care specialist to a significant other at home: No Do you presently have visiting nurse or other home services: Yes Alcohol intake: former Patient Tobacco Use Status: Former Tobacco user Tobacco use type: Cigarette Cigarettes Per Day: 15 Years Smoked: 8 quit 30 years ago e-Cigarette/Vaping Use: Never Used Second Hand Smoke Exposure: No service: No Current occupational status: employed Current occupation: [employer] Cognitive needs: No Hearing needs: No Vision needs: Yes (glasses) Review of Systems Const All systems reviewed & are unremarkable except as noted in HPI and below Physical Exam Vital Signs: Last Vital Signs Temp 97.0 F 07/01/24 11:18 Pulse 92 07/01/24 11:18 BP 114/66 07/01/24 11:18 Pulse Ox 97 07/01/24 11:18 Oxygen Delivery Method Room Air 07/01/24 11:18 BMI result Body Mass Index 35.9 Const General: cooperative, healthy appearing, comfortable and no acute distress Orientation/consciousness: patient oriented x3 Limitations: no limitations HEENT Head: Yes normal to inspection and Yes normocephalic Ears: EAC's normal, mastoids normal and unable to visualize TM (cerumen impaction) on the right General nose exam: Normal external nose present Face and sinus: Yes normal facial exam Mouth: Normal oral and palatal mucosa present and moist mucous membranes Throat: Yes tonsils normal, Yes uvula midline and Yes posterior oropharynx abnormal (Erythema) Eyes General: appearance normal, both eyes and all related structures Neck Neck: Yes normal visual inspection Resp Effort & Inspection: normal respiratory effort and able to speak in complete sentences Auscultation: clear to auscultation bilaterally Cardio Jugular venous distension: no JVD Rate: regular rate Rhythm: regular rhythm Heart sounds: S1 normal heart sound present, S2 normal heart sound present, no click, no gallops, no murmurs and no rubs Skin General skin exam: no rashes or lesions noted, elasticity normal and turgor normal Neuro General: patient oriented x3 Extrem General: Yes normal to inspection and Yes no clubbing, cyanosis or edema Office Procedures Cerumen Removal From which ear canal was the cerumen removed: right Removal: irrigation Notes: patient tolerated procedure well, no complications and ear canal clear [id number] Irrigation/Lavage Assessment & Plan Assessment & Plan (1) Impacted cerumen of right ear: Code(s): H61.21 - Impacted cerumen, right ear Plan: In office irrigation successful. Advised patient to use Debrox or other generic cerumen softening product for generalized maintenance. Advised avoidance of sticking items into the ear. Advised follow up as needed with worsening symptoms. (2) URI (upper respiratory infection): Code(s): J06.9 - Acute upper respiratory infection, unspecified Qualifiers: URI type: unspecified URI Qualified Code(s): J06.9 - Acute upper respiratory infection, unspecified Plan: Reviewed at home support methods including hydration, humidification, vix vapor rub, sinus rinse. Prescription for cough syrup sent to requested pharmacy. Advised follow up with worsening symptoms such as dyspnea at rest, which would require emergent evaluation. Plan See above for full details and plan. Medications: New guaifenesin 400 mg (10 mL) PO Q6H PRN 118 mL 0RF cough Coding Level of Care Code Est Pt Level 4 (11541) Diagnoses Impacted cerumen of right ear H61.21 Upper respiratory tract infection, unspecified type J06.9 URI type: unspecified URI CPT Codes Office Procedure - CPT: 50363-Knj Irrigation/Lavage ([id number])
== END 2024-07-01 13:15 | disposition home or self-care (01) ==
PROVIDERS: PCP Internal Medicine; Visit Provider Registered Nurse
DX: J06.9 Acute upper respiratory infection, unspecified (principal); H61.21 Impacted cerumen, right ear

== ENCOUNTER → 2024-07-01 10:15 | Outpatient (BNVA) | payer OTHER, SELFPAY | PROVIDERS: PCP Internal Medicine; Visit Provider Registered Nurse | DX: H61.21 Impacted cerumen, right ear (principal); J06.9 Acute upper respiratory infection, unspecified | CPT/HCPCS: 69209; 99212 ==

== ENCOUNTER 2024-07-08 12:16 | Outpatient (AMB) | payer OTHER, SELFPAY ==
--- NOTE | 2024-07-08 13:17 | AM.OFFWIN_ITS ---
Intake Vital Signs 07/08/24 13:18 Height 6 ft 1 in Weight 272 lb BMI 35.9 BP 128/80 Blood Pressure Location Lt brachial Position Sitting Pulse 89 Pulse Source Pulse Oximeter Pulse Oximetry (%) 98 Oxygen Delivery Method Room Air Intake Visit Reasons: EP-b/l ear block Intake Note: Patient here for bilat ear pain/blockage Patient Tobacco Use Status: Former Tobacco user Allergies No Known Allergies [No Known Allergies*] Allergy (Verified 07/08/24 13:18) Do you need a note to return to daycare/school/sports/work: No HPI HPI Comments History of Present Illness Details The patient is a 63-year-old male presenting with right ear discomfort and reduced hearing due to impacted cerumen. The patient reported that he has been experiencing issues with his right ear throughout the year. He was seen twice before for the same issue and attempted treatment with ear drops and irrigation. Specifically, he has been using Debrox drops, administering five drops once a day. Despite these interventions, the issue persists. The left ear was noted to be clear, with only the right ear affected by wax buildup. The patient was informed that an ENT specialist has the equipment for suctioning earwax, a procedure not available at the current facility. Various interventions such as irrigating and manual removal with a assurance associate have been partly attempted, but the problem has not been completely resolved. [facility] Medical History (Updated 07/08/24 @ 13:31 by Marisel Jean Baptiste PA-C) Impacted cerumen, right ear Acute diarrhea Pain in both feet Calcaneal spur of right foot Achilles tendinitis Callus of foot Right hand pain Abdominal bloating Vertigo Calcaneal spur Colon cancer screening COVID-19 Pre-op examination Elevated LFTs Encounter for Medicare annual wellness exam Bowel obstruction Melena Knee pain, bilateral Gastroenteritis Healed wound Chronic idiopathic constipation Chronic idiopathic constipation Hospital discharge follow-up Knee osteoarthritis Obesity (BMI 30-39.9) Schizoaffective disorder Pure hypercholesterolemia Benign essential hypertension Chronic kidney disease (CKD), stage III (moderate) Type 2 diabetes mellitus with diabetic chronic kidney disease Morbid obesity Dyslipidemia 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 mellitus residential (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 Diabetic polyneuropathy associated with 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 mellitus Schizo affective schizophrenia Diabetes type 2, uncontrolled Surgical History History of repair of congenital cleft palate Hx of circumcision Family History Father HTN (hypertension) Mother Diabetes Other Mental health problem Social History Household Members: None Housing: Apartment Are you a primary career consultant to a significant other at home: No Do you presently have visiting nurse or other home services: Yes Alcohol intake: former Patient Tobacco Use Status: Former Tobacco user Tobacco use type: Cigarette Cigarettes Per Day: 15 Years Smoked: 8 quit 30 years ago e-Cigarette/Vaping Use: Never Used Second Hand Smoke Exposure: No service: No Current occupational status: employed Current occupation: [employer] Cognitive needs: No Hearing needs: No Vision needs: Yes (glasses) Review of Systems Const All systems reviewed & are unremarkable except as noted in HPI and below Physical Exam Vital Signs: Last Vital Signs Pulse 89 07/08/24 13:18 BP 128/80 07/08/24 13:18 Pulse Ox 98 07/08/24 13:18 Oxygen Delivery Method Room Air 07/08/24 13:18 BMI result Body Mass Index 35.9 Const General: cooperative, healthy appearing, comfortable and no acute distress Orientation/consciousness: patient oriented x3 HEENT Head: Yes normal to inspection Ears: mastoids normal, Abnormal EAC present cerumen impaction and unable to visualize TM (cerumen blockage) on the right General nose exam: Normal external nose present Face and sinus: Yes normal facial exam Resp Effort & Inspection: normal respiratory effort and able to speak in complete sentences Neuro General: patient oriented x3 Office Procedures Cerumen Removal Details: Combination of irrigation and scooping with a curette, unable to remove all of the ear wax the patient reports improved hearing From which ear canal was the cerumen removed: right Removal: irrigation Notes: patient tolerated procedure well and no complications [id number] Irrigation/Lavage Assessment & Plan Assessment & Plan (1) Impacted cerumen, right ear: Code(s): H61.21 - Impacted cerumen, right ear Plan: I performed manual removal using a assurance associate and MA performed flushing to dislodge the wax, mostly successful. Patient reported and improved hearing, however there still some residual wax present that I an unable to remove. Therefore, referral to an ENT specialist for suction removal recommended based on the limitations of current resources. Further home care instructions on possible continuation of Debrox drops. Patient was informed and verbally consented to the use of an ambient scribe for clinic note documentation during this visit. Coding Level of Care Code Est Pt Level 4 (24979) Diagnoses Impacted cerumen, right ear H61.21 CPT Codes Office Procedure - CPT: 07851-Mhu Irrigation/Lavage ([id number])
[2024-07-08 13:18] VITALS: BP 128/80; PULSE 89; O2SAT 98; BMI 35.9
== END 2024-07-08 13:52 | disposition home or self-care (01) ==
PROVIDERS: PCP Internal Medicine; Visit Provider Physician Assistant
DX: H61.21 Impacted cerumen, right ear (principal)

== ENCOUNTER → 2024-07-08 12:16 | Outpatient (BNVA) | payer OTHER, SELFPAY | PROVIDERS: PCP Internal Medicine; Visit Provider Physician Assistant | DX: H61.21 Impacted cerumen, right ear (principal) | CPT/HCPCS: 69210; 99212 ==

== ENCOUNTER 2024-07-10 08:42 | Outpatient (REF) | payer OTHER, SELFPAY ==
[2024-07-10 09:10] LABS: Hematocrit 44.9 % (42.0-52.0); Imm Gran Abs Auto 0.05 X10*3/uL (0.00-0.03); Imm Gran Pct Auto 0.7 % (0.0-0.4); Lymphocytes Absolute Auto 1.3 X10*3/uL (1.2-4.9); MANUAL DIFF FLAG NO; Mean Corpuscular HGB Conc 35.6 g/dl (31.0-36.0); Mean Corpuscular Hemoglobin 30.1 pg (27.0-33.0); Mean Corpuscular Volume 84.6 fL (80.0-98.0); Monocytes Absolute Auto 0.5 X10*3/uL (0.1-1.2); Monocytes Percent Auto 6.8 % (2-11); Neutrophils Percent Auto 73.5 % (45-73); Platelet Count 117 X10*3/uL (160-400); Red Blood Count 5.31 X10*6/uL (4.60-5.80); Red Cell Distribution Width 12.9 % (11.0-16.0); White Blood Count 6.8 X10*3/uL (4.8-10.8)
== END 2024-07-10 08:43 | disposition home or self-care (01) ==
LOC: HO.LABR 08:42
PROVIDERS: PCP Internal Medicine; Visit Provider Psychiatry & Neurology Psychiatry
DX: F25.0 Schizoaffective disorder, bipolar type (principal)
CPT/HCPCS: 36415; 85025

== ENCOUNTER 2024-07-16 03:59 | Emergency (ER) | payer OTHER, SELFPAY ==
--- NOTE | ~2024-07-16 | XR_ITS ---
EXAMINATION: XR ABDOMEN KUB CLINICAL INDICATION: Constipation. COMPARISON: 06/25/2024, 04/21/2024. TECHNIQUE: AP view of the abdomen. FINDINGS: Of note, there is marked dilatation of the transverse colon, distended with gas, with gaseous distention measuring up to 14.5 cm. This is highly abnormal. Toxic megacolon is a consideration. Abundant stool seen in the descending colon and sigmoid, as well as rectum. Stool also seen in the hepatic flexure. No indirect evidence of free air. No small bowel dilatation. Lung bases appear clear. No abnormal soft tissue calcifications or organomegaly. No soft tissue abnormality. There are degenerative changes throughout the spine. No suspicious focal bony abnormality. XR/XR KUB IMPRESSION: 1. Marked gaseous dilatation of the transverse colon, and to a lesser degree the descending colon. Abundant stool seen in the left hemicolon and rectum. Findings could represent fecal impaction/obstruction, although entities such as toxic megacolon not excluded. Recommend clinical correlation with patient presentation. 2. No indirect evidence of free intraperitoneal air or other complication. No small bowel dilatation. Electronically signed by: Trev Santiago MD 07/16/2024 12:20 PM [facility]
--- NOTE | ~2024-07-16 | CT_ITS ---
EXAMINATION: CT ABDOMEN AND PELVIS WITH CONTRAST CLINICAL INFORMATION: ?obstruction on XR, lower abd pain COMPARISON: CT abdomen/pelvis 02/25/2023 TECHNIQUE: Multidetector volumetric images were obtained from the superior aspect of the liver through the pubic symphysis following administration 85 mL of Omnipaque 350 intravenous contrast. Sagittal and coronal reformatted images were obtained on the technologist's workstation. Oral contrast: No This CT examination was performed using dose optimization techniques as appropriate, variously including the following: *Automated exposure control *Adjustment of mA and/or kV according to patient size (this includes techniques or standardized protocols for targeted exams where dose is matched to indication/reason for exam; i.e. extremities or head) *Use of iterative reconstruction technique DLP: 882 mGy-cm FINDINGS: LUNG BASES: Stable triangular pleural-based right middle lobe 0.6 cm pulmonary nodule (series #4 axial image 34). No suspicious pulmonary nodule. Bibasilar atelectasis. No pleural effusion. The visualized mediastinum is normal. LIVER, GALLBLADDER, AND BILIARY TREE: Nodular hepatic contour. The liver is normal in size and shape. No focal hepatic lesion or biliary ductal dilatation is present. The gallbladder is unremarkable with no evidence of radiopaque gallstones, gallbladder wall thickening, or obvious pericholecystic inflammatory changes. PANCREAS: Fatty atrophy of the pancreas. SPLEEN: Splenomegaly again seen, measuring up to 19 cm transaxially. ADRENAL GLANDS: Unremarkable. KIDNEYS AND URETERS: Nonobstructing right renal lower pole 0.2 cm calculus. The kidneys are normal in size, shape, and attenuation. No hydronephrosis, hydroureter, or calculi seen. No perinephric stranding. BLADDER: Unremarkable. GASTROINTESTINAL TRACT: Mild dilation of the descending and transverse colon measuring up to 6.5 cm. The dilated colon seen on prior radiograph could represent overlapping loops of bowel. Moderate to large stool burden overall. The small bowel is nondilated. Normal CT appearance of the stomach. The appendix is unremarkable. ABDOMINAL WALL: No significant hernia is appreciated. LYMPH NODES: Normal. VASCULAR: Unremarkable. PELVIC VISCERA: Few coarse prostatic calcifications. Mild hepatomegaly. Normal CT appearance of seminal vesicles. OSSEOUS STRUCTURES: No acute or suspicious osseous abnormality. Minor multilevel thoracolumbar spondylosis. CT/CT abdomen pelvis w IV con IMPRESSION: 1. Mild dilation of the descending and transverse colon measuring up to 6.5 cm. Moderate to large stool burden overall. 2. Nodular hepatic contour, suggestive of cirrhosis. 3. Splenomegaly. 4. Nonobstructing right renal lower pole 0.2 cm calculus. Pulmonary nodule recommendation: Per the 2017 revised Fleischner Society guidelines, follow-up CT of the complete chest after an appropriate interval (3-12 months depending on clinical risk) to confirm stability and to evaluate additional findings. Fleischner guidelines were followed. Electronically signed by: Gena Walker DO 07/16/2024 05:36 PM [facility]
[2024-07-16 04:12] VITALS: BP 119/85; PULSE 89; RESP 20; TEMP 36.4; O2SAT 96; BMI 36.4
[2024-07-16 04:47] LABS: MANUAL DIFF FLAG NO
[2024-07-16 04:50] LABS: Hematocrit 42.8 % (42.0-52.0); Hemoglobin 15.2 g/dl (14.0-18.0); Imm Gran Abs Auto 0.02 X10*3/uL (0.00-0.03); Imm Gran Pct Auto 0.3 % (0.0-0.4); Lymphocytes Absolute Auto 1.1 X10*3/uL (1.2-4.9); Lymphocytes Percent Auto 17.5 % (20-40); Mean Corpuscular HGB Conc 35.5 g/dl (31.0-36.0); Mean Corpuscular Hemoglobin 30.2 pg (27.0-33.0); Mean Corpuscular Volume 85.1 fL (80.0-98.0); Mean Platelet Volume 10.5 fL (9.4-12.4); Monocytes Absolute Auto 0.5 X10*3/uL (0.1-1.2); Monocytes Percent Auto 7.7 % (2-11); Neutrophils Absolute Auto 4.6 x10*3/uL (2.0-8.3); Neutrophils Percent Auto 74.5 % (45-73); Platelet Count 110 X10*3/uL (160-400); Red Blood Count 5.03 X10*6/uL (4.60-5.80); Red Cell Distribution Width 12.7 % (11.0-16.0); White Blood Count 6.2 X10*3/uL (4.8-10.8)
[2024-07-16 05:28] LABS: Alanine Aminotransferase 74 U/L (0-40); Albumin Level 4.2 g/dL (3.5-5.0); Alkaline Phosphatase 148 U/L (39-117); Anion Gap 15 (12-20); Aspartate Amino Transferase 64 U/L (5-37); Bilirubin Direct 0.1 mg/dL (0.0-0.5); Bilirubin Total 0.4 mg/dL (0.0-1.0); Blood Urea Nitrogen 21 mg/dL (9-16); Calcium 9.4 mg/dL (8.4-10.2); Carbon Dioxide 23 mmol/L (22-29); Chloride 106 mmol/L (96-108); Creatinine Clr Calc Pharmacy 90.3; Estimated Glomerular Filt Rate > 60; Ethanol < 10 mg/dL; Glucose Random 288 mg/dL (60-115); Lipase 13 U/L (8-78); Potassium 3.8 mmol/L (3.3-5.1); Sodium 140 mmol/L (135-145)
[2024-07-16 08:58] LABS: Appearance Urine Clear; Color Urine Yellow; Glucose Urine UA >=1000 mg/dL (Negative); Leukocyte Esterase Urine Negative (Negative); Nitrite Urine Negative (Negative); PH 6.5 (5.0-9.0); Specific Gravity - Urine >= 1.030 (1.005-1.025); UMIC TRIGGER UACC YES; Urine Blood Negative (Negative); Urine Ketones Negative (Negative); Urine Protein Negative (Neg-Trace)
[2024-07-16 09:01] LABS: Bacteria Urine None Seen (None Seen); Hyaline Casts Urine 0-2 /LPF (0-2); RBC Urine 0-2 /HPF (0-2); Squamous Epithelial Cell Urine 0-2 /HPF (0-2); WBC Urine 0-5 /HPF (0-5)
--- NOTE | 2024-07-16 09:36 | ED.ABDPAIN ---
HPI - Abdominal Pain General Chief Complaint: Abdominal Pain Stated Complaint: severe abd cramping Time Seen by Provider: 07/16/24 09:36 Source: patient Mode of arrival: ambulatory Limitations: no limitations History of Present Illness ED Provider: NAYELI NAZARIO PA-C HPI narrative: 63 year old male with pmhx significant for CKD, DM, and chronic constipation presents to the ED today for evaluation of lower abdominal cramping since 0100 this morning, worsening around 0230. No radiation. States he is worried about eating anything as he does not want to exacerbate his pain. He has not tried to eat anything. Denies nausea or vomiting. He does endorse chronic constipation. States he has had to be disimpacted in the past. Reports having a small bowel movement consisting of hard stool around 0100. He can not recall when his last bowel movement was prior to that. Passing flatus. Denies fever, chills, N/V, diarrhea, flank pain, dysuria, hematuria. Related Data Home Medications ?Medication ?Instructions ?Recorded ?Confirmed hydroxyzine pamoate 50 mg capsule 50 mg PO TID PRN Anxiety 09/18/20 05/03/24 benztropine 0.5 mg tablet 0.5 mg PO BID 04/29/22 05/03/24 L.acidoph, paracasei,B. lactis 10 cell PO 05/12/22 05/03/24 billion cell capsule (Digestive Advantage Advanced Probiotic) clozapine 100 mg tablet 100 mg PO TID 05/12/22 05/03/24 Previous Rx's ?Medication ?Instructions ?Recorded polyethylene glycol 3350 17 gram 17 g PO BID #30 ea 08/12/22 oral powder packet (Miralax) blood-glucose meter (FreeStyle #1 ea 03/27/23 Lite Meter kit) phenol 1.5 %-glycerin 33 % mucosal 1 spray mucous membrane Q6-8H PRN 09/03/23 spray (Chloraseptic Max Sore sore throat #118 mL Throat) cholecalciferol (vitamin D3) 25 25 mcg PO DAILY #90 caps 12/21/23 mcg (1,000 unit) capsule ketoconazole 2 % topical cream 1 appl topical DAILY #30 grams 01/01/24 bisacodyl 5 mg tablet,delayed 10 mg (2 x 5 mg) PO BID #90 tabs 01/02/24 release acetaminophen 500 mg tablet 1,000 mg (2 x 500 mg) PO Q6H PRN 01/04/24 pain #30 tabs cyclobenzaprine 10 mg tablet 10 mg PO DAILY PRN muscle spasm 01/04/24 #10 tabs lidocaine 5 % topical patch 1 patch topical DAILY #15 ea 01/04/24 linaclotide 290 mcg capsule 290 mcg PO QAM 30 days #30 caps 02/08/24 (Linzess) psyllium seed (sugar) oral powder 1 tsp PO BID #1,254 grams 03/07/24 (Metamucil (sugar) oral powder) blood-glucose meter (FreeStyle #1 ea 04/01/24 Lite Meter kit) pen needle, diabetic 29 gauge x #100 ea 04/24/2408/15 (BD Ultra-Fine Original Pen Needle) gabapentin 300 mg capsule 300 mg PO BEDTIME 90 days #90 caps 04/30/24 metformin 500 mg tablet 1,000 mg (2 x 500 mg) PO BID 90 05/01/24 days #360 tabs sildenafil 50 mg tablet 50 mg PO DAILY PRN sexual activity 05/03/24 #10 tabs lancets 28 gauge (FreeStyle #100 ea 05/08/24 Lancets) metoclopramide HCl 5 mg tablet 5 mg PO TID #90 tabs 05/08/24 empagliflozin 25 mg tablet 25 mg PO QAM #30 tabs 06/05/24 (Jardiance) simethicone 80 mg chewable tablet 160 mg (2 x 80 mg) PO TID 06/05/24 abdominal distention #180 tabs blood sugar diagnostic (FreeStyle #100 ea 06/15/24 Lite Strips) carbamide peroxide 6.5 % ear drops 5 drp otic (ear) left DAILY 4 days 06/24/24 (Debrox) #15 mL glycerin (adult) 2 supp OK .after shower 06/28/24 constipation #25 ea metoclopramide HCl 10 mg tablet 10 mg PO TID #90 tabs 06/28/24 (Reglan) guaifenesin 200 mg/5 mL oral liquid 400 mg (10 mL) PO Q6H PRN cough 07/01/24 #118 mL magnesium hydroxide 400 mg/5 mL 20 ml PO BEDTIME PRN constipation 07/01/24 oral suspension (Milk of Magnesia) #3,780 mL docusate sodium 100 mg capsule 100 mg PO BID #60 caps 07/04/24 atorvastatin 10 mg tablet 10 mg PO DAILY #90 tabs 07/05/24 methylcellulose (laxative) 500 mg 1,000 mg (2 x 500 mg) PO TID #180 07/09/24 tablet (Fiber Therapy tabs (methylcellulose)) furosemide 20 mg tablet 20 mg PO DAILY #90 tabs 07/10/24 Tresiba FlexTouch U-200 200 30 unit (0.15 mL) subcut DAILY 90 07/15/24 unit/mL (3 mL) subcutaneous pen days #9 mL (insulin degludec) flash glucose scanning reader #1 ea 07/15/24 ([employer] Jody [employer] [place]) ibuprofen 800 mg tablet 800 mg PO Q8H PRN for pain 30 days 07/15/24 #90 tabs Allergies Allergy/AdvReac Type Severity Reaction Status Date / Time No Known Allergies Allergy Verified 07/16/24 04:13 [No Known Allergies*] Review of Systems Review of Systems Constitutional: No fever, chills, fatigue, night sweats, weight changes ENT/Mouth: No ear pain, hearing loss, nasal congestion, sinus pain, rhinorrhea, sore throat Eyes: No eye pain, swelling, redness, vision changes, discharge Cardio: No chest pain, palpitations, GUZMAN, orthopnea, peripheral edema Pulm: No SOB, cough, sputum, wheezing, dyspnea, hemoptysis GI: No nausea, vomiting, hematemesis, diarrhea, hematochezia, melena, +abd pain, +constipation : No irregular bleeding, dysuria, frequency, urgency, hesitancy, hematuria, flank pain, urinary flow changes, urinary incontinence or retention MSK: No back pain, neck pain, joint pain, myalgias Skin: No lesions, rashes Neuro: No weakness, numbness, paresthesias, LOC, dizziness, headache Psych: No anxiety/panic, depression, SI/HI, AH/VH All other systems reviewed and are negative. [facility] Past Medical History Attestation statement: The following information was validated with the patient. Source: old records reviewed and nursing notes reviewed Medical History Impacted cerumen, right ear Acute diarrhea Pain in both feet Calcaneal spur of right foot Achilles tendinitis Callus of foot Right hand pain Abdominal bloating Vertigo Calcaneal spur Colon cancer screening COVID-19 Pre-op examination Elevated LFTs Encounter for Medicare annual wellness exam Bowel obstruction Melena Knee pain, bilateral Gastroenteritis Healed wound Chronic idiopathic constipation Chronic idiopathic constipation Hospital discharge follow-up Knee osteoarthritis Obesity (BMI 30-39.9) Schizoaffective disorder Pure hypercholesterolemia Benign essential hypertension Chronic kidney disease (CKD), stage III (moderate) Type 2 diabetes mellitus with diabetic chronic kidney disease Morbid obesity Dyslipidemia 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 mellitus 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 Diabetic polyneuropathy associated with 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 mellitus Schizo affective schizophrenia Diabetes type 2, uncontrolled Surgical History History of repair of congenital cleft palate Hx of circumcision Family History Family History Father HTN (hypertension) Mother Diabetes Other Mental health problem Social History Social History Household Members: None Housing: Apartment Are you a primary health care legal assistant to a significant other at home: No Do you presently have visiting nurse or other home services: Yes Alcohol intake: former Patient Tobacco Use Status: Former Tobacco user Tobacco use type: Cigarette Cigarettes Per Day: 15 Years Smoked: 8 quit 30 years ago e-Cigarette/Vaping Use: Never Used Second Hand Smoke Exposure: No service: No Current occupational status: employed Current occupation: [employer] Cognitive needs: No Hearing needs: No Vision needs: Yes (glasses) Physical Exam ED Vital Signs: Vital Signs - 24 hr 07/16/24 15:29 07/16/24 15:36 07/16/24 18:36 Temperature 97.4 F 98.4 F 97.5 F Pulse Rate 76 76 72 Respiratory Rate 18 16 16 Blood Pressure 121/81 119/79 100/65 Pulse Oximetry 97 97 99 Oxygen Delivery Method Room Air Room Air Room Air 07/16/24 19:56 07/16/24 21:07 Temperature 97.4 F 97.4 F Pulse Rate 75 75 Respiratory Rate 16 16 Blood Pressure 123/80 123/80 Pulse Oximetry 95 95 Oxygen Delivery Method Room Air Room Air BMI result Body Mass Index 36.4 vital signs stable, afebrile General: Well appearing, in no acute distress. Skin: Warm, dry, intact. No rashes or lesions. Head: Normocephalic, atraumatic. EENT: Hearing is intact b/l. Conjunctiva clear. PERRLA. EOM intact. Moist mucous membranes.? Cardiac: Chest wall symmetric. RRR Lungs: Normal respiratory effort without accessory muscle use. CTA bilaterally Abdomen: Obese abdomen, soft, mildly distended, tender to palpation over lower quadrant without rebound or guarding. Decreased bowel sounds throughout. Back: No midline spinous or paraspinal tenderness. No step off deformity. Ext: Upper and lower extremities atraumatic, without tenderness, deformity, swelling or erythema. Full ROM throughout. Neuro: AOx3. Normal speech. Ambulating with steady gait assisted by cane. Psych: Appropriate mood and affect. Responds appropriately to questions. Course Course Course Narrative: 1330 -- CBC without leukocytosis or left shift. no anemia. h&h stable. chemistry without acute electrolyte abnormality requiring intervention. random glucose 159. no ROEL. liver function at baseline. lipase wnl, unlikely pancreatitis. urine without infection. KUB showing marked gaseous dilation of the transverse colon and to a lesser degree with the descending colon. Abundant stool within the left knee colon and rectum. Findings could possibly represent fecal impaction/obstruction although toxic megacolon can not be ruled out. No small bowel dilatation. CT A/P ordered for further evaluation. 1525 -- Patient continues to endorse 1/10 abd pain. Declining Tylenol. Obstruction vs toxic megacolon unlikely. I did review patients CT A/P with my attending Dr. Cagle. We do not appreciate obstruction. Stool burden appears proximal to ischium and I fear rectal disimpaction would be unsuccessful. Enema ordered. 1406 -- Patient stable at the end of my shift. signout given to Dr. CLAY pending CT read, enema and disposition. Reevaluation(s) Reevaluation #1: The patient was able to have a bowel movement, he is stable for discharge at this time. Will have him follow-up with his primary doctor Time: 20:54 Medical Decision Making Medical Decision Making MDM Narrative: 63 year old male with pmhx significant for CKD, DM, and chronic constipation presents to the ED today for evaluation of lower abdominal cramping since 0100 this morning, worsening around 0230. No radiation. Vital signs stable. afebrile. he is nontoxic appearing and in NAD. lying comfortably on the exam bed. Exam showing obese abdomen, soft, mildly distended, tender to palpation over lower quadrant without rebound or guarding. Decreased bowel sounds throughout. Differential diagnosis includes anemia, electrolyte abnormality, dehydration, constipation, bowel obstruction, urinary tract infection. Low suspicion for etiology related to new medications including opiates, antipsychotics, anticholinergics, antacids, or antihistamines. Presentation not consistent with acute anorectal disorders. Low suspicion for chronic causes of constipation including hypothyroidism. Presentation not consistent with other acute, emergent causes of constipation at this time. Plan for labs, UA, KUB, re-evaluation. Differential Diagnosis Differential Diagnoses: The differential diagnosis associated with the presentation includes as above. Admission/Observation Consideration of admission/observation: Escalation of care including admission/observation considered admission considered on presentation Lab Data MDM Lab Attestation statement: I reviewed the patient's lab results. as above. 07/16/24 04:42 07/16/24 04:42 Labs: Lab Results 07/16/24 07/16/24 07/16/24 Range/Units 04:42 08:48 13:28 WBC 6.2 (4.8-10.8) X10*3/uL RBC 5.03 (4.60-5.80) X10*6/uL Hgb 15.2 (14.0-18.0) g/dl Hct 42.8 (42.0-52.0) % MCV 85.1 (80.0-98.0) fL MCH 30.2 (27.0-33.0) pg MCHC 35.5 (31.0-36.0) g/dl RDW 12.7 (11.0-16.0) % Plt Count 110 L (160-400) X10*3/uL MPV 10.5 (9.4-12.4) fL Immature Gran % (Auto) 0.3 (0.0-0.4) % Neut % (Auto) 74.5 H (45-73) % Lymph % (Auto) 17.5 L (20-40) % [place] % (Auto) 7.7 (2-11) % Eos % (Auto) 0.0 (0-4) % Baso % (Auto) 0.0 (0-2) % Lymph # (Auto) 1.1 L (1.2-4.9) X10*3/uL [place] # (Auto) 0.5 (0.1-1.2) X10*3/uL Eos # (Auto) 0.0 (0.0-0.4) X10*3/uL Baso # (Auto) 0.0 (0.0-0.2) X10*3/uL Abs Immat Gran (auto) 0.02 (0.00-0.03) X10*3/uL Absolute Neuts (auto) 4.6 (2.0-8.3) x10*3/uL Absolute Nucleated RBC 0.000 (0.0-0.012) X10*3/uL Nucleated RBC % (auto) 0.0 (0.0-0.2) /100WBC Sodium 140 (135-145) mmol/L Potassium 3.8 (3.3-5.1) mmol/L Chloride 106 (96-108) mmol/L Carbon Dioxide 23 (22-29) mmol/L Anion Gap 15 (12-20) BUN 21 H (9-16) mg/dL Creatinine 1.19 (0.5-1.4) mg/dL Estim Creat Clear Calc 90.3 Estimated GFR > 60 POC Glucose 159 H (60-115) mg/dL Random Glucose 288 H (60-115) mg/dL Calcium 9.4 D (8.4-10.2) mg/dL Total Bilirubin 0.4 (0.0-1.0) mg/dL Direct Bilirubin 0.1 (0.0-0.5) mg/dL AST 64 H (5-37) U/L ALT 74 H (0-40) U/L Alkaline Phosphatase 148 H (39-117) U/L Total Protein 7.0 (6.5-8.0) g/dL Albumin 4.2 (3.5-5.0) g/dL Lipase 13 (8-78) U/L Urine Color Yellow Urine Appearance Clear Urine pH 6.5 (5.0-9.0) Ur Specific [place] >= 1.030 H (1.005-1.025) Urine Protein Negative (Neg-Trace) mg/dL Urine Glucose (UA) >=1000 H (Negative) mg/dL Urine Ketones Negative (Negative) mg/dL Urine Blood Negative (Negative) Urine Nitrite Negative (Negative) Ur Leukocyte Esterase Negative (Negative) Urine RBC 0-2 (0-2) /HPF Urine WBC 0-5 (0-5) /HPF Ur Squamous Epith Cells 0-2 (0-2) /HPF Urine Bacteria None Seen (None Seen) Hyaline Casts 0-2 (0-2) /LPF Ethyl Alcohol < 10 mg/dL 07/16/24 Range/Units 15:41 WBC (4.8-10.8) X10*3/uL RBC (4.60-5.80) X10*6/uL Hgb (14.0-18.0) g/dl Hct (42.0-52.0) % MCV (80.0-98.0) fL MCH (27.0-33.0) pg MCHC (31.0-36.0) g/dl RDW (11.0-16.0) % Plt Count (160-400) X10*3/uL MPV (9.4-12.4) fL Immature Gran % (Auto) (0.0-0.4) % Neut % (Auto) (45-73) % Lymph % (Auto) (20-40) % [place] % (Auto) (2-11) % Eos % (Auto) (0-4) % Baso % (Auto) (0-2) % Lymph # (Auto) (1.2-4.9) X10*3/uL [place] # (Auto) (0.1-1.2) X10*3/uL Eos # (Auto) (0.0-0.4) X10*3/uL Baso # (Auto) (0.0-0.2) X10*3/uL Abs Immat Gran (auto) (0.00-0.03) X10*3/uL Absolute Neuts (auto) (2.0-8.3) x10*3/uL Absolute Nucleated RBC (0.0-0.012) X10*3/uL Nucleated RBC % (auto) (0.0-0.2) /100WBC Sodium (135-145) mmol/L Potassium (3.3-5.1) mmol/L Chloride (96-108) mmol/L Carbon Dioxide (22-29) mmol/L Anion Gap (12-20) BUN (9-16) mg/dL Creatinine (0.5-1.4) mg/dL Estim Creat Clear Calc Estimated GFR POC Glucose 141 H (60-115) mg/dL Random Glucose (60-115) mg/dL Calcium (8.4-10.2) mg/dL Total Bilirubin (0.0-1.0) mg/dL Direct Bilirubin (0.0-0.5) mg/dL AST (5-37) U/L ALT (0-40) U/L Alkaline Phosphatase (39-117) U/L Total Protein (6.5-8.0) g/dL Albumin (3.5-5.0) g/dL Lipase (8-78) U/L Urine Color Urine Appearance Urine pH (5.0-9.0) Ur Specific [place] (1.005-1.025) Urine Protein (Neg-Trace) mg/dL Urine Glucose (UA) (Negative) mg/dL Urine Ketones (Negative) mg/dL Urine Blood (Negative) Urine Nitrite (Negative) Ur Leukocyte Esterase (Negative) Urine RBC (0-2) /HPF Urine WBC (0-5) /HPF Ur Squamous Epith Cells (0-2) /HPF Urine Bacteria (None Seen) Hyaline Casts (0-2) /LPF Ethyl Alcohol mg/dL Independent Interpretation I performed an independent interpretation of an: Plain X-Ray and CT Scan Interpretation: KUB showing dilation of transverse colon Radiology Impression Discussion of test interpretation with radiology: I have reviewed the radiologist's reading. Radiologist Impression: EXAMINATION: XR ABDOMEN KUB CLINICAL INDICATION: Constipation. COMPARISON: 06/25/2024, 04/21/2024. TECHNIQUE: AP view of the abdomen. FINDINGS: Of note, there is marked dilatation of the transverse colon, distended with gas, with gaseous distention measuring up to 14.5 cm. This is highly abnormal. Toxic megacolon is a consideration. Abundant stool seen in the descending colon and sigmoid, as well as rectum. Stool also seen in the hepatic flexure. No indirect evidence of free air. No small bowel dilatation. Lung bases appear clear. No abnormal soft tissue calcifications or organomegaly. No soft tissue abnormality. There are degenerative changes throughout the spine. No suspicious focal bony abnormality. XR/XR KUB IMPRESSION: 1. Marked gaseous dilatation of the transverse colon, and to a lesser degree the descending colon. Abundant stool seen in the left hemicolon and rectum. Findings could represent fecal impaction/obstruction, although entities such as toxic megacolon not excluded. Recommend clinical correlation with patient presentation. 2. No indirect evidence of free intraperitoneal air or other complication. No small bowel dilatation. EXAMINATION: CT ABDOMEN AND PELVIS WITH CONTRAST CLINICAL INFORMATION: ?obstruction on XR, lower abd pain COMPARISON: CT abdomen/pelvis 02/25/2023 TECHNIQUE: Multidetector volumetric images were obtained from the superior aspect of the liver through the pubic symphysis following administration 85 mL of Omnipaque 350 intravenous contrast. Sagittal and coronal reformatted images were obtained on the technologist's workstation. Oral contrast: No This CT examination was performed using dose optimization techniques as appropriate, variously including the following: *Automated exposure control *Adjustment of mA and/or kV according to patient size (this includes techniques or standardized protocols for targeted exams where dose is matched to indication/reason for exam; i.e. extremities or head) *Use of iterative reconstruction technique DLP: 882 mGy-cm FINDINGS: LUNG BASES: Stable triangular pleural-based right middle lobe 0.6 cm pulmonary nodule (series #4 axial image 34). No suspicious pulmonary nodule. Bibasilar atelectasis. No pleural effusion. The visualized mediastinum is normal. LIVER, GALLBLADDER, AND BILIARY TREE: Nodular hepatic contour. The liver is normal in size and shape. No focal hepatic lesion or biliary ductal dilatation is present. The gallbladder is unremarkable with no evidence of radiopaque gallstones, gallbladder wall thickening, or obvious pericholecystic inflammatory changes. PANCREAS: Fatty atrophy of the pancreas. SPLEEN: Splenomegaly again seen, measuring up to 19 cm transaxially. ADRENAL GLANDS: Unremarkable. KIDNEYS AND URETERS: Nonobstructing right renal lower pole 0.2 cm calculus. The kidneys are normal in size, shape, and attenuation. No hydronephrosis, hydroureter, or calculi seen. No perinephric stranding. BLADDER: Unremarkable. GASTROINTESTINAL TRACT: Mild dilation of the descending and transverse colon measuring up to 6.5 cm. The dilated colon seen on prior radiograph could represent overlapping loops of bowel. Moderate to large stool burden overall. The small bowel is nondilated. Normal CT appearance of the stomach. The appendix is unremarkable. ABDOMINAL WALL: No significant hernia is appreciated. LYMPH NODES: Normal. VASCULAR: Unremarkable. PELVIC VISCERA: Few coarse prostatic calcifications. Mild hepatomegaly. Normal CT appearance of seminal vesicles. OSSEOUS STRUCTURES: No acute or suspicious osseous abnormality. Minor multilevel thoracolumbar spondylosis. CT/CT abdomen pelvis w IV con IMPRESSION: 1. Mild dilation of the descending and transverse colon measuring up to 6.5 cm. Moderate to large stool burden overall. 2. Nodular hepatic contour, suggestive of cirrhosis. 3. Splenomegaly. 4. Nonobstructing right renal lower pole 0.2 cm calculus. Pulmonary nodule recommendation: Per the 2017 revised Fleischner Society guidelines, follow-up CT of the complete chest after an appropriate interval (3-12 months depending on clinical risk) to confirm stability and to evaluate additional findings. Fleischner guidelines were followed. Electronically signed by: Gena Walker DO 07/16/2024 05:36 [place] [facility] [place] External record reviewed: Inpatient record, Office record, Outpatient record, Prior outpatient labs, Prior outpatient radiology, Primary care record and Outside ED record Chronic Conditions Patient?s care impacted by: Other (chronic constipation) Social Determinants Patient?s care significantly limited by Social Determinants of Health including: Other Social Determinant of Health Medications Administered Discontinued Medications Generic Name Dose Route Start Last Admin Trade Name Freq PRN Reason Stop Dose Admin Iohexol 85 ml 07/16/24 15:10 07/16/24 15:10 Iohexol 350 Mg/Ml 100 Ml Infus..Btl IV 07/16/24 15:11 85 ml ONCE ONE Administration Lactulose 40 gm 07/16/24 19:30 07/16/24 19:51 Lactulose 20 Gm/30 Ml Solution PO 07/16/24 19:31 40 gm ONCE ONE Administration Mineral Oil 133 ml 07/16/24 17:56 07/16/24 18:17 Mineral Oil Enema 133 Ml Enema OK 07/16/24 17:57 133 ml ONCE ONE Administration Critical Care Time Critical Care Time Critical Care Time: No Discharge Plan Discharge Clinical Impression: Constipation Patient Disposition: Home, Self-Care Instructions: Constipation (ED) Additional Instructions: Your CT scan showed a significant amount of constipation. Take all your medications as prescribed. I recommend increasing fluid and fiber intake in your diet. Follow-up with your primary doctor Prescriptions: No Action (DME) blood-glucose meter [FreeStyle Lite Meter] Kit See Rx Instructions .Route Qty: 1 5RF Rx Instructions: Tests 4 X/day cholecalciferol (vitamin D3) 25 mcg (1,000 unit) capsule 25 mcg PO DAILY Qty: 90 12RF bisacodyl 5 mg tablet,delayed release (DR/EC) 10 mg PO BID Qty: 90 0RF Linzess 290 mcg capsule 290 mcg PO QAM 30 Days Qty: 30 6RF (DME) blood-glucose meter [FreeStyle Lite Meter] Kit See Rx Instructions .ROUTE .MEDSUPPLY Qty: 1 0RF Rx Instructions: As directed (DME) pen needle, diabetic [BD Ultra-Fine Orig Pen Needle] 29 gauge x 1/2 needle See Rx Instructions .ROUTE DAILY Qty: 100 3RF Rx Instructions: As directed daily gabapentin 300 mg capsule 300 mg PO BEDTIME 90 Days Qty: 90 1RF metformin 500 mg tablet 1,000 mg PO BID 90 Days Qty: 360 1RF metoclopramide HCl 5 mg tablet 5 mg PO TID Qty: 90 0RF (DME) lancets [FreeStyle Lancets] 28 gauge misc See Rx Instructions .Route Qty: 100 4RF Rx Instructions: Tests 5x/day simethicone 80 mg tablet,chewable 160 mg PO TID Qty: 180 6RF Jardiance 25 mg tablet 25 mg PO QAM Qty: 30 3RF (DME) FreeStyle Lite Strips Strip See Rx Instructions .Route Qty: 100 5RF Rx Instructions: Tests 5X/day metoclopramide HCl [Reglan] 10 mg tablet 10 mg PO TID Qty: 90 6RF glycerin (adult) Suppository 2 supp OK .after shower Qty: 25 6RF magnesium hydroxide [Milk of Magnesia] 400 mg/5 mL suspension 20 ml PO BEDTIME PRN (Reason: constipation) Qty: 3780 6RF docusate sodium 100 mg capsule 100 mg PO BID Qty: 60 0RF atorvastatin 10 mg tablet 10 mg PO DAILY Qty: 90 0RF Fiber Therapy (m-cellulose) 500 mg tablet 1,000 mg PO TID Qty: 180 0RF furosemide 20 mg tablet 20 mg PO DAILY Qty: 90 1RF ibuprofen 800 mg tablet 800 mg PO Q8H PRN (Reason: for pain) 30 Days Qty: 90 0RF Rx Instructions: take with food Tresiba FlexTouch U-200 200 unit/mL (3 mL) insulin pen 30 unit subcut DAILY 90 Days Qty: 9 3RF (DME) FreeStyle Jody 2 [place] Misc See Rx Instructions .ROUTE .COMPLEX Qty: 1 0RF Dose Instruction: USE DIRECTED TO TEST BLOOD SUGAR Rx Instructions: USE DIRECTED TO TEST BLOOD SUGAR benztropine 0.5 mg tablet 0.5 mg PO BID Metamucil (sugar) Powder 1 tsp PO BID Qty: 1254 0RF Chloraseptic Max Sore Throat 1.5-33 % spray,non-aerosol 1 spray mucous membrane Q6-8H PRN (Reason: sore throat) Qty: 118 0RF Rx Instructions: leave on area for 15 seconds then spit out hydroxyzine pamoate 50 mg capsule 50 mg PO TID PRN (Reason: Anxiety) ketoconazole 2 % cream 1 appl topical DAILY Qty: 30 0RF acetaminophen 500 mg tablet 1,000 mg PO Q6H PRN (Reason: pain) Qty: 30 0RF cyclobenzaprine 10 mg tablet 10 mg PO DAILY PRN (Reason: muscle spasm) Qty: 10 0RF lidocaine 5 % adhesive patch,medicated 1 patch topical DAILY Qty: 15 0RF Rx Instructions: leave on most painful area for up to 12 hrs clozapine 100 mg tablet 100 mg PO TID Digestive Advantage Advanced 10 billion cell capsule PO polyethylene glycol 3350 [Miralax] 17 gram powder in packet 17 g PO BID Qty: 30 6RF sildenafil 50 mg tablet 50 mg PO DAILY PRN (Reason: sexual activity) Qty: 10 0RF Rx Instructions: administer 30 minutes to 4 hours before activity Debrox 6.5 % drops 5 drp otic (ear) left DAILY 4 Days Qty: 15 0RF guaifenesin 200 mg/5 mL liquid 400 mg PO Q6H PRN (Reason: cough) Qty: 118 0RF Interventions: ED Discharge Assessment Last Done: 07/16/24 21:07 Discharge Date/Time: 07/16/24 21:08 Print Language: Swedish
[2024-07-16 13:31] LABS: Glucose, Whole Blood 159 mg/dL (60-115)
[2024-07-16] MEDS: iohexoL 350 MG/ML 100 ML INFUS..BTL 85 ML IV (15:10)
[2024-07-16 15:29] VITALS: BP 121/81; PULSE 76; RESP 18; TEMP 36.3; O2SAT 97
[2024-07-16 15:36] VITALS: BP 119/79; PULSE 76; RESP 16; TEMP 36.9; O2SAT 97
--- NOTE | 2024-07-16 15:42 | MHC.EDTECH ---
This pct assumed care of Patient at 1500 ,vitals taken ,blood sugar check ,Patient was change into hospital gown ,Patient had a can of rod lexie to drink .Call arvizu within Pt reach .
[2024-07-16 16:03] LABS: Glucose, Whole Blood 141 mg/dL (60-115)
[2024-07-16] MEDS: Mineral OiL enema 133 ML ENEMA PR (18:17)
[2024-07-16 18:36] VITALS: BP 100/65; PULSE 72; RESP 16; TEMP 36.4; O2SAT 99
[2024-07-16] MEDS: Lactulose 20 GM/30 ML SOLUTION 40 GM PO (19:51)
[2024-07-16 19:56] VITALS: BP 123/80; PULSE 75; RESP 16; TEMP 36.3; O2SAT 95
[2024-07-16 21:07] VITALS: BP 123/80; PULSE 75; RESP 16; TEMP 36.3; O2SAT 95
== END 2024-07-16 21:08 | disposition home or self-care (01) ==
PROVIDERS: Emergency Provider Emergency Medicine; PCP Internal Medicine
DX: K59.00 Constipation, unspecified (principal); R25.2 Cramp and spasm; R10.2 Pelvic and perineal pain; E11.9 Type 2 diabetes mellitus without complications; Z51.81 Encounter for therapeutic drug level monitoring; Z79.899 Other long term (current) drug therapy
CPT/HCPCS: 36415; 74018; 74177; 80053; 80076; 80307; 81001; 82947; 83690; 85025; 99284; Q9967

== ENCOUNTER → 2024-07-16 09:54 | Outpatient (BNV) | payer OTHER, SELFPAY | PROVIDERS: Emergency Provider Emergency Medicine; PCP Internal Medicine; Visit Provider Radiology Diagnostic Radiology | DX: R10.9 Unspecified abdominal pain (principal) | CPT/HCPCS: 74018 ==

== ENCOUNTER 2024-07-19 08:47 | Outpatient (REF) | payer OTHER, SELFPAY ==
[2024-07-19 09:38] LABS: Appearance Urine Clear; Color Urine Yellow; Glucose Urine UA >=1000 mg/dL (Negative); Leukocyte Esterase Urine Negative (Negative); Nitrite Urine Negative (Negative); UMIC TRIGGER UACC YES; Urine Blood Negative (Negative); Urine Ketones Negative (Negative); Urine Protein Negative (Neg-Trace)
[2024-07-19 09:38] LABS: Hemoglobin 16.5 g/dl (14.0-18.0); Imm Gran Abs Auto 0.03 X10*3/uL (0.00-0.03); Imm Gran Pct Auto 0.5 % (0.0-0.4); MANUAL DIFF FLAG SCAN; Mean Platelet Volume 10.4 fL (9.4-12.4); Monocytes Absolute Auto 0.4 X10*3/uL (0.1-1.2); Monocytes Percent Auto 6.9 % (2-11); PLT CLUMP 1; SCAN SMEAR FLAG 1
[2024-07-19 09:40] LABS: Basophils Percent Auto 0.2 % (0-2); Hematocrit 46.7 % (42.0-52.0); Lymphocytes Absolute Auto 1.2 X10*3/uL (1.2-4.9); Lymphocytes Percent Auto 20.9 % (20-40); Mean Corpuscular HGB Conc 35.3 g/dl (31.0-36.0); Mean Corpuscular Hemoglobin 29.9 pg (27.0-33.0); Mean Corpuscular Volume 84.8 fL (80.0-98.0); Neutrophils Absolute Auto 4.3 x10*3/uL (2.0-8.3); Neutrophils Percent Auto 71.5 % (45-73); Red Blood Count 5.51 X10*6/uL (4.60-5.80); Red Cell Distribution Width 12.9 % (11.0-16.0)
[2024-07-19 09:41] LABS: Bacteria Urine None Seen (None Seen); Hyaline Casts Urine 0-2 /LPF (0-2); RBC Urine 0-2 /HPF (0-2); Squamous Epithelial Cell Urine 0-2 /HPF (0-2); WBC Urine 0-5 /HPF (0-5)
[2024-07-19 09:42] LABS: Estimated Average Glucose 169 mg/dL; Hemoglobin A1C 240.7463 umol/L; Hemoglobin A1c % 7.5 % (<6.0); Total Hemoglobin (HGBA1C) 4125.0595 umol/L
[2024-07-19 09:43] LABS: Platelet Count 123 X10*3/uL (160-400); White Blood Count 5.9 X10*3/uL (4.8-10.8)
[2024-07-19 09:44] LABS: SLIDE REVIEW VERIFIED
[2024-07-19 10:07] LABS: Alanine Aminotransferase 84 U/L (0-40); Albumin Level 4.4 g/dL (3.5-5.0); Alkaline Phosphatase 158 U/L (39-117); Anion Gap 15 (12-20); Aspartate Amino Transferase 41 U/L (5-37); Bilirubin Total 0.5 mg/dL (0.0-1.0); Blood Urea Nitrogen 14 mg/dL (9-16); Carbon Dioxide 25 mmol/L (22-29); Chloride 108 mmol/L (96-108); Cholesterol 162 mg/dL (<200); Estimated Glomerular Filt Rate 56; Glucose Fasting 208 mg/dL (60-99); HDL Cholesterol 34 mg/dL (>40); LDL Cholesterol Calculated 79 mg/dL (<100); Potassium 3.9 mmol/L (3.3-5.1); Sodium 144 mmol/L (135-145); Total Protein 7.6 g/dL (6.5-8.0); Triglycerides 247 mg/dL (<150)
[2024-07-19 10:23] LABS: Creatinine Urine 41.33 mg/dL; Microalbumin Urine < 5.0 mg/L
[2024-07-19 10:23] LABS: TSH reflex Free T4 2.33 uIU/mL (0.32-4.0); Vitamin D 25-OH Total 45.8 ng/mL (>30)
--- OUTSIDE RECORDS SUMMARY | 2024-07-24 05:55 | XMS_ITS ---
Author Organization [facility] Address [address] [place] [address] Care Team Providers Care Income Auditor Name Role Phone New Garcia MDh Primary Care Provider Tu Ch Unavailable [phone] Allergies No Known Allergies REASON FOR VISIT Heel pain, At Risk Footcare, Painful Nail(s) aggravated by shoes and causing difficulty standing/walking. Medications Medication SIG (Take, Route, Frequency, Duration) Notes Start Date End Date Status Night Splint AFO - L1930 1 wear when at rest for 30 days Active Social History Tobacco Use: Social History Observation Description Date Details (start date - stop date) Former Smoker NA - NA Tobacco Use/Smoking Question Answer Notes Are you a: former smoker Additional Findings: Tobacco Non-User Current no n-smoker Alcohol Screen Question Answer Notes Did you have a drink containing alcohol in the p ast year? No Points 0 Interpretation Negative Tobacco use other than smoking: Question Answer Notes Are you an other tobacco user? No Vital Signs Height 6 ft in 06/21/2024 Weight 270 lbs 06/21/2024 BMI 36.61 kg/m2 06/21/2024 Procedures Procedure Date Ordered Date Performed Result Body Sit e 61355-XUOFXOD NAIL, 6 OR MORE 06/21/2024 N/A 87582-BXCZ SKIN LESIONS, 2 TO 4 06/21/2024 N/A Encounters Encounter Location Date Provider Diagnosis [facility] [address] [place] [address] 06/21/2024 Tu Pierre Tinea unguium B35.1 ; Pain in right toe(s) M79.674 ; Pain in left toe(s) M79.675 ; Achilles tendinitis of right lower extremity M76.61 and Type 2 diabetes mellitus without complication E11.9 Assessments Encounter Date Diagnosis (ICD Code) Assessment Notes Treatment Notes Treatment Clinical Notes Section Notes 06/21/2024 Tinea unguium (ICD-10 - B35.1) 06/21/2024 Pain in right toe(s) (ICD-10 - M79.674) 06/21/2024 Pain in left toe(s) (ICD-10 - M79.675) 06/21/2024 Achilles tendinitis of right lower extremity (ICD-10 - M76.61) 06/21/2024 Type 2 diabetes mellitus without complication (ICD-10 - E11.9) Plan Of Treatment Pending Test Test Name Order Date 70491-UPOKKCF NAIL, 6 OR MORE 06/21/2024 88912-MYMD SKIN LESIONS, 2 TO 4 06/21/20 24 Next Appt Details Follow Up: 2 Months, Reason: Provider Name:Tu Pierre , 08/30/2024 11:00:00 AM, [address] [place] [address], [phone], Procedure Notes * Category Sub-Category Detail Notes Debride Nail 6-10 Nail debridement Performance o f this nail treatment by a nonprofessional would put this patients foot and overall health at risk. Therefore, debridement to affected nail(s) as described in exam was performed extensively to reduce/remove overall nail length, girth, thickness, subungual debris, and necrotic tissue, by manual and/or electrical means through the use of a nail nipper and/or dremel-type convex grinder operator, to a more viable healthy nail plate or bed tissue 6-10. Silver nitrate used for any petechial bleeding as necessary. Definitive antifungal treatment options have been reviewed and discussed with the patient. The patient chooses, no pharmaceutical tx - 31775 Keratoma Treatment Parring or Cutting o f Benign Hyperkeratotic Lesion(s) (-56) 2-4 Lesions - The Benign hyperkeratotic lesions, as described in exam, were pared, and/or cut utilizing a sterile 15 blade, tissue nippers, and/or dremel - 87947 Progress Notes * Kashmir BAIRD:[birth year] (63 yo M)Acc No.[id number]:06/21/2024 Progress Note Patient:?Mike Baird Provider:?Tu Pierre DPM :1960???Age:63 Y???Sex:Male Taurus e:06/21/2024 Address:[address] [place] [address] Dr Hernesto orozco, [id number] Pcp:Luis Manuel Garcia MD Subjective: * Chief Complaints: * ???Heel painAt Risk Footcare Painful Nail(s) aggravated by shoes and causing difficulty standing/walking. * HPI: ???Heel pain:?Location:?Back of heel, RIGHT.?Treatments:?rest/alter normal daily activity , ice , change in shoes , medication ( tylenol, ) , stretching , massage , AFO-nightsplint.?At Risk footcare:?Pt States Last PCP Visit:?Date?09/21/2023 * ROS:?General/Constitutional:?Nausea?denies.?Vomiting?denies.?Hunger Thirst?denies.?Loss appetite?denies.?Chills?denies.?Fatigue?denies.?Fever?denies.?Night Sweats?denies.?Unexplained weight loss?denies.?Unexplained weight gain?denies.?HEENTM:?Dentures?denies.?Dizziness?denies.?Glasses/contacts?admits.?Retinopathy?de nies.?Blurred/double vision?denies.?TMJ?denies.?Discharge/drainage?denies.?Implants?denies.?Sore throat?denies.?Dental implants?denies.?Hard of hearing ?denies.?Difficulty chewing/swallowing/speaking?denies.?Nose bleeds?denies.?Sore mouth?denies.?Respiratory:?On Oxygen?denies.?Pneumonia/pleurisy?denies.?Bronchitis?denies.?Emphysema?denies.?C oughing?denies.?Cough blood?denies.?Shortness of breath?denies.?Wheezing?denies.?Cardiovascular:?Pacemaker?denies.?MVP?denies.?WPW?denies.?CHF?denies.?Heart attack?denies.?Septal defect?denies.?Rapid beat?denies.?Chest pain ?denies.?Atrial Fib.?denies.?Murmur/Palpitations?denies.?Gastrointestinal:?Hemorrhoids?denies.?Stomach/Abdominal pain?denies.?Dark blood stool?denies.?Irritable bowel ?denies.?Constipation?admits.?Diarrhea?admits.?Hematology:?Swelling?denies.?Clots?denies.?Varicose Veins?denies.?Bruising?denies.?Bleeding problem?denies.?Genitourinary:?Blood urine?denies.?Frequent/Painfu/urination/bladder control?denies.?Kidney stones?denies.?Infection (UTI)?denies.?Nephropathy?denies.?sex trans dis (STD)?denies.?Prostate?denies.?Musculoskeletal:?Hammertoes?admits.?Bunions?denies.?Back Pain?denies.?Muscle Cramps/ Resting?denies.?Muscle cramps / walking?denies.?Generalized aches and pains?denies.?Weakness?denies.?Integ.:?Sanchez?denies.?Scars?denies.?Corns/calluses?admits.?Ingrown nails?admits.?Painful nails?admits.?Open Sores?denies.?Rashes?denies.?Neurologic:?Difficulty sleeping?denies.?Brain disorder?denies.?Numbness?denies.?Balance trouble?denies.?Confusion?denies.?Fainting/blackouts?denies.?Tingling?denies.?Tr emors?denies.? * Medical History:? * Surgical History:?Denies Pas t Surgical History * Hospitalization/Major Diagno stic Procedure:?Denies Past Hospitalization * Family History:?Mother: diag nosed with Diabetic - NIDDM.?Maternal Grand Mother: diagnosed with Family history of arthritis.? * Social History:?Tobacco Use:?Tobacco Use/Smoking?Are you a:?former smoker ?Additional Findings: Tobacco Non-User?Current non-smoker ?Tobacco use other than smoking?Are you an other tobacco user??No ???Drugs/Alcohol:?Drugs?Have you used drugs other than those for medical reasons in the past 12 months??No ?Alcohol Screen?Did you have a drink containing alcohol in the past year??No ?Points?0 ?Interpretation?Negative ???Miscellaneous:?Caffeine: yes, frequency:, 2-3 cups per day. ?Occupation: [employer]. * Medications:?TakingNight Spl int AFO - L1930 1 wear when at restMedication List reviewed and reconciled with the patientTaking Night Splint AFO - L1930 1 wear when at restMedication List reviewed and reconciled with the patient * Allergies:?N.K.D.A.yes[Aller gies Verified] Objective: * Vitals:?Ht:6 ft, Wt:270, BMI :36.61, Shoe size:14W, BS:200, Ht-cm: 182.88 cm, Wt- k.47 kg. * Examination: ???Nails: ?NAILS are:?Elongated, overgrown, dystrophic, lytic, greater than 3mm thick, discolored and friable with crumbly malodorous subungual debris, with pain on palpation , TA , T1 , T4, T5 , T6 , T9.?Dermatologic: ?SKIN FINDINGS:?Skin exam reveals Keratotic lesion(s) located at , Heel(s) , B/L.?Heel Pain: ?INSPECTION REVEALS:?Approximately 50-60% LESS, Pain on palpation to Achilles tendon/bursa NOW without inflammation and LESS swelling present, LESS?Pain on palpation to Posterior Superior Aspect Calcaneus, CONT?Prominent posterior and posterior/superior heel present, RIGHT.? Assessment: * Assessment: 1.?Tinea unguium - B35.1?2.? Pain in right toe(s) - M79.674?3.?Pain in left toe(s) - M79.675?4.?Achilles tendinitis of right lower extremity - M76.61, Acute problem, Stable,Response to treatment - Improvement?5.?Type 2 diabetes mellitus without complication - E11.9? Plan: * Treatment: 2.?Type 2 diabetes mellitus without complication?Procedure: 82697-UFMD SKIN LESIONS, 2 TO 4 * Procedures:?Debride Nail 6-10:?Nail debridement?Performance of this nail treatment by a nonprofessional would put this patients foot and overall health at risk. Therefore, debridement to affected nail(s) as described in exam was performed extensively to reduce/remove overall nail length, girth, thickness, subungual debris, and necrotic tissue, by manual and/or electrical means through the use of a nail nipper and/or dremel-type convex grinder operator, to a more viable healthy nail plate or bed tissue 6-10. Silver nitrate used for any petechial bleeding as necessary. Definitive antifungal treatment options have been reviewed and discussed with the patient. The patient chooses, no pharmaceutical tx - 58343.?Keratoma Treatment:?Parring or Cutting of Benign Hyperkeratotic Lesion(s)?(-56) 2-4 Lesions - The Benign hyperkeratotic lesions, as described in exam, were pared, and/or cut utilizing a sterile 15 blade, tissue nippers, and/or dremel - 42162.? * Procedure Codes:?16862 DEBRI DE NAIL, 6 OR MORE, Modifiers: XS 27627 TRIM SKIN LESIONS, 2 TO 4, Modifiers: XS * Preventive Medicine:? ??Counseling:?Discussion:?-13: Office or other outpatient visit for the evaluation and management of an established patient, which required a medically appropriate history and/or examination and LOW level of DECISION MAKING for: 1 STABLE ACUTE UNCOMPLICATED PROBLEM, 2 OR MORE MINOR PROBLEMS, OR 1 STABLE CHRONIC PROBLEM, THAT POSE(S) A LOW RISK FOR MORBIDITY/MORTALITY. The visit on the day of the encounter encompassed interpreting the data and educating the patient as to the nature of their condition, treatment options available according to their individual PMH, meds, allergies, and overall health/living conditions, as well as any potential risks or complications that may occur from a failure to adhere to, and participate in, the recommended course of therapy. The discussion included a complete verbal, and/or written explanation of the examination results, any x-rays taken, the proposed diagnosis, and outline of the treatment plan. A schedule for future care needs was also explained. The patient verbalized an understanding of the instructions at this time and agreed to be an active participant in their treatment. If the patient should think of any questions or concerns after the visit, I have encouraged the patient to call the office.?Heel pain:?Discussed other tx options for the patients condition, Given recent successful results to treatment, the patient wishes to continue with the present plan for their condition.? * Follow Up:?2 Months * Images: * Sign off status: Completed true * Provider:?Tu Pierre DPM Date:?2023 Generated for Ruthy wood/Garrison/Harvey on:?07/24/2024 05:55 AM EST History and Physical Notes * HPI (History of Present Illness) Category Sub-Category Detail Notes Category Not es Heel pain Location: Back of heel, RIGHT Treatments: rest/alter normal da tom activity , ice , change in shoes , medication ( tylenol, ) , stretching , massage , AFO-nightsplint At Risk footcare Pt States Last PCP Visit: Date: 02/08/202 4 Examination Category Sub-Category Detail Notes Category Not es Heel Pain INSPECTION REVEALS: Approximatel y 50-60% LESS, Pain on palpation to Achilles tendon/bursa NOW without inflammation and LESS swelling present, LESS Pain on palpation to Posterior Superior Aspect Calcaneus, CONT Prominent posterior and posterior/superior heel present, RIGHT Dermatologic SKIN FINDINGS: Skin exam reveal s Keratotic lesion(s) located at , Heel(s) , B/L Nails NAILS are: Elongated, overg rown, dystrophic, lytic, greater than 3mm thick, discolored and friable with crumbly malodorous subungual debris, with pain on palpation , TA , T1 , T4, T5 , T6 , T9
--- OUTSIDE RECORDS SUMMARY | 2024-07-24 05:55 | XMS_ITS ---
Author Organization [facility] Address [address] [place] [address] Care Team Providers Care Major General Name Role Phone New Garcia MDh Primary Care Provider Tu Ch Unavailable [phone] Allergies No Known Allergies REASON FOR VISIT Heel pain, At Risk Footcare, Painful Nail(s) aggravated by shoes and causing difficulty standing/walking., Ingrown Nail Medications Medication SIG (Take, Route, Frequency, Duration) [...] Are you an other tobacco user? No Problems Problem Type SNOMED Code ICD Code Onset Dates Problem Status W/U Status Risk Notes Problem Type 2 diabetes mellitus without complication (067096923) Type 2 diabetes mellitus without complication (E11.9) Active confirmed Vital Signs Height 6 ft in 03/08/2024 Weight 270 lbs 03/08/2024 BMI 36.61 kg/m2 03/08/2024 Procedures Procedure Date Ordered Date Performed Result Body Sit e 62268-OQRQCVQ NAIL, 6 OR MORE 03/08/2024 N/A 95451-Vejtajzl Plate 03/08/2024 N/A 52847-BFBB SKIN LESIONS, 2 TO 4 03/08/2024 N/A Encounters Encounter Location Date Provider Diagnosis [facility] [address] [place] [address] 03/08/2024 Tu Pierre Tinea unguium B35.1 ; Pain in right toe(s) M79.674 ; Pain in left toe(s) M79.675 ; Achilles tendinitis of right lower extremity M76.61 ; Pain of right heel M79.671 ; Exostosis of right posterior calcaneus M77.31 ; 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 ; Short Achilles tendon (acquired), 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 ; Type 2 diabetes mellitus without complication E11.9 and Ingrown nail L60.0 Assessments Encounter Date Diagnosis (ICD Code) Assessment Notes Treatment Notes Treatment Clinical Notes Section Notes 03/08/2024 Tinea unguium (ICD-10 - B35.1) 03/08/2024 Pain in right toe(s) (ICD-10 - M79.674) 03/08/2024 Pain in left toe(s) (ICD-10 - M79.675) 03/08/2024 Achilles tendinitis of right lower extremity (ICD-10 - M76.61) Patient Educated with: HEEL CORD STRETCHES.pdf (HEEL CORD STRETCHES.pdf) Patient Educated with: RICE THERAPY.pdf (RICE THERAPY.pdf) 03/08/2024 Pain of right heel (ICD-10 - M79.671) 03/08/2024 Exostosis of right posterior calcaneus (ICD-10 - M77.31) 03/08/2024 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) 03/08/2024 Short Achilles tendon (acquired), right ankle (ICD-10 - M67.01) 03/08/2024 Type 2 diabetes mellitus without complication (ICD-10 - E11.9) 03/08/2024 Ingrown nail (ICD-10 - L60.0) Plan Of Treatment Medication Medication Name Sig Start Date Stop Date Notes Night Splint AFO - L1930 1 wear when at rest for 30 days Treatment Notes Assessment Notes Achilles tendinitis of right lower extre mity Patient Educated with: HEEL CORD STRETCHES.pdf (HEEL CORD STRETCHES.pdf) Patient Educated with: RICE THERAPY.pdf (RICE THERAPY.pdf) Pending Test Test Name Order Date X ray : Foot, right 3V 03/08/2024 52263-KSHTJMY NAIL, 6 OR MORE 03/08/2024 21672-Gmbuxppy Plate 03/08/2024 95669-JFGX SKIN LESIONS, 2 TO 4 03/08/20 24 Next Appt Details Follow Up: 2 Months, Reason: Provider Name:Tu Pierre , 08/30/2024 11:00:00 AM, [address] [place], [address], Procedure Notes * Category Sub-Category Detail Notes Nail Avulsion Procedure A fine sterile e levator was placed between the eponychium, nail fold, and nail plate to separate the structures. A sterile nail splitter, and/or sterile 316 blade, was then used to longitudinally section the nail along its entire length through the eponychium to the area under the nail fold. The offending portion of nail was from the nail bed with a rolling action and then removed with a hemostat. No underlying bone was identified. There was minimal bleeding as hemostasis was achieved through the temporary use of either a digital tourniquet or the aforementioned local with epinephrine. A bacitracin sterile dressing was applied. Local wound aftercare instructions were discussed and dispensed. The patient was informed of both conservative and future surgical procedures to prevent recurrence. Tylenol or Motrin was recommended for pain or discomfort (49526) , DIABETES: Pt was advised as to the risk of delayed or nonhealing due to diabetes. Pt is to call the office with any questions, concerns, or complications Anesthesia was accomplished TOP ICALLY with Lidocaine Hydrochloride Jelly 2 percent Location Medial nail border , TA Debride Nail 6-10 Nail debridement Nail debridem ent performed extensively to reduce/remove overall nail length, girth, thickness, subungual debris, and necrotic tissue, by manual and electrical means through the use of a nail nipper and/or dremel, to more viable healthy nail plate or bed tissue 1-5. Silver nitrate used for any petechial bleeding as necessary. Patient chooses, no pharmaceutical tx (05786) Keratoma Treatment Parring or Cutting o f Benign Hyperkeratotic Lesion(s) 50811 ( 2-4 Lesions ) - The Benign hyperkeratotic lesions, as described above were pared, and/or cut utilizing a sterile 15 blade, tissue nippers, and/or dremel Progress Notes * Mike BAIRDDOB:[birth year] (63 yo M)Acc No.[id number]:03/08/2024 Progress Notes Patient:?Mike Baird Provider:?Tu Pierre DPM :1960???Age:63 Y???Sex:Male Taurus e:03/08/2024 Address:[address] [place] [address] , [place], [id number] Pcp:Luis Manuel Garcia MD Subjective: * Chief Complaints: * ???Heel painAt Risk Footcare Painful Nail(s) aggravated by shoes and causing difficulty standing/walking.Ingrown Nail * HPI: ???Heel pain:?Location:?Back of heel, RIGHT.?Duration:?several months.?Course:?worse.?Aggravated:?standing, walking, walking first thing in the morning/after rest.?Treatments:?rest/alter normal daily activity , ice , change in shoes.?At Risk footcare:?Pt States Last PCP Visit:?Date?09/21/2023 * [...] stic Procedure:?Denies Past Hospitalization * Family History:?Mother: mili moed with Diabetic - NIDDM.?Maternal Grand Mother: diagnosed [...] cups per day. ?Occupation: [employer]. * Medications:?None * Allergies:?N.K.D.A.yes[Aller gies Verified] Objective: * Vitals:?Ht: 6 ft, Wt:270, BM I:36.61, Shoe size:14W, BS:201, Ht-cm: 182.88 cm, Wt-k.47 kg. * Examination: ???Nails: ?NAILS are:?Elongated, overgrown, dystrophic, lytic, greater than 3mm thick, discolored and friable with crumbly malodorous subungual debris, with pain on palpation , TA , T1 , T4, T5 , T6 , T9.?Ingrown Nail: ?INSPECTION:?Reveals nail incurvation, pain on palpation, groove hypertrophy , Medial nail border , TA.?Dermatologic: ?SKIN FINDINGS:?Skin exam reveals normal texture, elasticity, and turgor. There are no masses. The interspaces are clear, B/L, Skin exam reveals Keratotic lesion(s) located at , Heel(s) , B/L.?Heel Pain: ?INSPECTION REVEALS:? Pain on palpation to Achilles tendon/bursa with inflammation and swelling present, Pain on palpation to Posterior Superior Aspect Calcaneus, Prominent posterior and posterior/superior heel present, RIGHT.?X-Rays - IMAGING REPORT: ?Clinical Indication(s):? Evaluate for Fracture, Evaluate Biomechanical Deformity.?Views:? 3 views of Foot, LAT, LO, MO, RIGHT.?Findings:?normal bone and soft tissue density consistent for patients age and sex, increase in soft tissue contour and density at the symptomatic site, navicular/cuneiform plantar subluxation with anterior cyma line, positive retrocalcaneal exostosis, no coalitions identified.?Fracture:?Negative fractures identified.?Orthopedic: ?MUSCLE STRENGTH:?5/5 all groups in a symmetrical fashion, B/L.?GAIT ABNORMALITY:?antalgic.?FOOT MORPHOLOGY:? Decreased Ankle joint dorsiflexion ROM, knee extended.?Vascular: ?DP PULSES:?2/4, B/L.?PT PULSES:?2/4, B/L.?CAPILLARY FILL TIME:?immediate, all digits, B/L.?SKIN TEMPERTURE GRADIENT OF THE LOWER EXTERMITIES:?normal, warm to cool, proximal to distal, B/L, B/L.?HAIR GROWTH/TEXTURE/ELASTICITY/TURGOR:?normal, B/L.?PIGMENTATION:?normal, B/L.?EDEMA:?absent, B/L.?Neurological: ?SENSORY:?Neurological exam reveals intact sensorium, pain sensation normal, vibration sensation intact, pinprick sensation is normal in the lower extremities, 5.07 monofilament test performed at plantar aspects of 5 varied sites per foot shows sensation, normal, B/L, Pt denies, anesthesia, burning, paresthesia, tingling, B/L.?DEEP TENDON REFLEXES:?Deferred on symptomatic extremity due to discomfort.?Ophthalmology Referral: ?DIABETES EYE EXAM?General Examination: ?GENERAL APPEARANCE:?Reveals a pleasant, alert, well nourished, well- developed, well hydrated individual, who demonstrates proper attention to hygiene/body habitus, and is in no acute distress, Pt serves as own historian for office visit today.?ORIENTED:?person, place, and time.? * Physical Examination:?L1930 Nightsplint AFO:?Application of static AFO, including soft interface material, adjustable for fit/ positioning/ pressure reduction, may be used for minimal ambulation, prefabricated, including fitting and adjustment:?XL , Right.? Assessment: * Assessment: 1.?Tinea unguium - B35.1?2.? 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 Plan: * Treatment: 2.?Achilles tendinitis of ri t lower extremity? Start Night Splint AFO - L1930, 1, wear, when at rest, 30 days, Refills 0.?? Notes: Patient Educated with: HEEL CORD STRETCHES.pdf (HEEL CORD STRETCHES.pdf) Patient Educated with: RICE THERAPY.pdf (RICE THERAPY.pdf)?? 3.?Pain of right heel?Imaging: X ray : Foot, right 3V 4.?Type 2 diabetes mellitus without complication?Procedure: 03304-SGJP SKIN LESIONS, 2 TO 4 5.?Ingrown nail?Procedure: 18845-Chsomizk Plate * Procedures:?Debride Nail 6-10:?Nail debridement?Nail debridement performed extensively to reduce/remove overall nail length, girth, thickness, subungual debris, and necrotic tissue, by manual and electrical means through the use of a nail nipper and/or dremel, to more viable healthy nail plate or bed tissue 1-5. Silver nitrate used for any petechial bleeding as necessary. Patient chooses, no pharmaceutical tx (92074).?Keratoma Treatment:?Parring or Cutting of Benign Hyperkeratotic Lesion(s)?30422 ( 2-4 Lesions ) - The Benign hyperkeratotic lesions, as described above were pared, and/or cut utilizing a sterile 15 blade, tissue nippers, and/or dremel.?Nail Avulsion:?Location?Medial nail border?,?TA.?Anesthesia?was accomplished TOPICALLY with Lidocaine Hydrochloride Jelly 2 percent.?Procedure?A fine sterile elevator was placed between the eponychium, nail fold, and nail plate to separate the structures. A sterile nail splitter, and/or sterile 316 blade, was then used to longitudinally section the nail along its entire length through the eponychium to the area under the nail fold. The offending portion of nail was from the nail bed with a rolling action and then removed with a hemostat. No underlying bone was identified. There was minimal bleeding as hemostasis was achieved through the temporary use of either a digital tourniquet or the aforementioned local with epinephrine. A bacitracin sterile dressing was applied. Local wound aftercare instructions were discussed and dispensed. The patient was informed of both conservative and future surgical procedures to prevent recurrence. Tylenol or Motrin was recommended for pain or discomfort (78136) , DIABETES: Pt was advised as to the risk of delayed or nonhealing due to diabetes. Pt is to call the office with any questions, concerns, or complications.? * Procedure Codes:?00651 DEBRI DE NAIL, 6 OR MORE, Modifiers: XS 18995 Avulsion Plate, Modifiers: XS , PG55505 X-RAY EXAM OF RIGHT FOOT 3V, Modifiers: 26 , [id number] TRIM SKIN LESIONS, 2 TO 4, Modifiers: XS L1930 AFO PLASTIC/OTH MATERIAL PREFAB, Modifiers: RT * Preventive Medicine:? ??Counseling:?Discussion:?-04: Office or other outpatient visit for the evaluation and management of a new patient, which required a medically appropriate history and/or examination and MODERATE level of DECISION MAKING for: 1 OR MORE CHRONIC PROBLEM(S) THATS WORSENING, 2 STABLE CHRONIC PROBLEMS, A NEWLY DIAGNOSED PROBLEM WITH UNCERTAIN PROGNOSIS, AN ACUTE COMPLICATED INJURY WITH MULTIPLE TREATMENT OPTIONS, OR AN ACUTE PROBLEM WITH ACCOMPANYING SYSTEMIC SYMPTOMS, THAT POSE(S) A MODERATE RISK OF MORBIDITY. THIS CONDITION MAY ALSO INCLUDE RX DRUG MANAGEMENT, OR A DECISON FOR MINOR SURGERY. The visit on the day of the [...] encouraged the patient to call the office.?Heel pain:?ACHILLES: I explained to the patient the possible etiologies of Achilles Tendonitis including foot type/shoegear/activity level/exercise routine and the risks/benefits of all the different treatment options for pain including: No treatment at all, Rest, Ice, NSAIDs(only if well tolerated after meals), New/supportive Shoegear, Strappings and Tapings, Stretching exercises, Deep Tissue Massage, Heel cups/cushions, Arch support/shoe inserts, Custom orthoses, Topical analgesics including Aspercream/Voltaren gel, Night splint/AFO Bracing for stiffness, Cast boot with crutches/cane/or walker for assisted ambulation, Physical Therapy, EPAT/ESWT, Interfil injection therapy, as well as surgical Clearwater/Calcanectomy- tendon debridement surgical procedures if needed. Recommendations were made to limit barefoot walking, eliminate wearing nonsupportive shoegear (i.e. flip-flops or sandals, or a shoe with an easily bendable, foldable, or twistable sole) and wear shoegear with a good solid sole, a supportive arch, and plenty of room for an insert/orthotic if necessary. If wearing sandals was required by the patient, we recommended orthopedic sandals such as Orthoheel or Birkenstock even while in the home. If the patient wore heels in the past, we recommended they continue, but eliminate the use of flats. The advantages and disadvantages of each option were discussed and the patients' questions re: shoegear, custom vs prefabricated inserts, activity level, PO vs Topical medications (and their respective potential complications/drug interactions/side effects), and consistency in home treatment regimens for optimal success were answered to their verbally confirmed satisfaction. Literature detailing Achilles Tendonitis and the various treatment options were dispensed and reviewed.?Orthotics:?I explained to the patient the benefits of OT use. I explained that orthoses are medically necessary to decrease the foot pain through proper mechanical control, support of their foot, AFO - I explained to the patient the benefits of AFO use. Recommend AFO Lower Extremity Bracing to accomodate the patients deformity and result in pain relief without surgery, Patient signed confirmation form indicating receipt of DME device.?P.R.I.C.E.:?The patient was counseled on the use of P.R.I.C.E. and NSAIDS (if well tolerated) to aid in the recovery from their painful condition.?Podiatric Surgery Counseling:?Surgical procedures such as Clearwater vs Exostectomy with Partial calcanectomy and Achilles debridement with use of tendon reanchoring systems were discussed with the patient, including the risks and advantages as well as disadvantages to either not having, or having surgery, the potential surgical outcomes, possible complications unlimited to no improvement of syptoms/infection/excessive scaring/chronic weakness/failure of procedure/chronic pain, the use of IV/Local vs General anesthesia, and the usual post-op course which includes prolongued recuperation consisting of 2-3 months of casting non-partial weightbearing followed by extensive PT. Total return to normal activity may take a year or more. No guarentees were given. Patient questions re: how each procedure is different, different outcomes, and post-op recuperation were reviewed and the patient verbalized that all answers were clearly understood.?Shoe Gear Counseling:?The patient and I reviewed the types of shoes they should be wearing. My recommendation included obtaining a well-fitted shoe with a good supportive, non-foldable nor twistable sole, plenty of toe/room for the forefoot, and proper arch support. Based on todays examination, I recommended the patient look for new shoes, by having their feet professionally measured. We discussed that generally the best time of the day for a shoe fitting is the afternoon. Different shoes types and brands to best match the patients occupation and vocation were discussed. Specific brand selection will be up to the patient, their individual foot condition/deformities, and fit. The patient and I reviewed the standard new shoe break in period by wearing them for a few hours a day while checking for redness or sores as wear time is increased. The patient verbally confirmed to understanding the information discussed.?Stretching Exercises:?Stretching and deep tissue massage exercises for the patients injury/diagnosis were discussed and demonstrated, Handouts were also given.? * Follow Up:?2 Months * Images: * Sign off status: Completed Addendum: * ? true * Provider:?Tu Pierre DPM Date:?2023 Generated for Ruthy wood/Garrison/Harvey on:?07/24/2024 05:55 AM EST History and Physical Notes * HPI (History of Present Illness) Category Sub-Category Detail Notes Category Not es Heel pain Duration: several months Location: Back of heel, RIGHT Aggravated: standing, walking, w alking first thing in the morning/after rest Course: worse Treatments: rest/alter normal da tom activity , ice , change in shoes At Risk footcare Pt States Last PCP Visit: Date: Physical Examination Category Sub-Category Detail Notes Section Note s L1930 Nightsplint AFO Application of sta tic AFO, including soft interface material, adjustable for fit/ positioning/ pressure reduction, may be used for minimal ambulation, prefabricated, including fitting and adjustment: XL , Right Examination Category Sub-Category Detail Notes Category Not es Ingrown Nail INSPECTION: Reveals nail inc urvation, pain on palpation, groove hypertrophy , Medial nail border , TA Heel Pain INSPECTION REVEALS: Pain on palp ation to Achilles tendon/bursa with inflammation and swelling present, Pain on palpation to Posterior Superior Aspect Calcaneus, Prominent posterior and posterior/superior heel present, RIGHT Neurological SENSORY: Neurological exa m reveals intact sensorium, pain sensation normal, vibration sensation intact, pinprick sensation is normal in the lower extremities, 5.07 monofilament test performed at plantar aspects of 5 varied sites per foot shows sensation, normal, B/L, Pt denies, anesthesia, burning, paresthesia, tingling, B/L DEEP TENDON REFLEXES: Deferred on sympto matic extremity due to discomfort Dermatologic SKIN FINDINGS: Skin exam reveal s normal texture, elasticity, and turgor. There are no masses. The interspaces are clear, B/L, Skin exam reveals Keratotic lesion(s) located at , Heel(s) , B/L Orthopedic GAIT ABNORMALITY: antalgic FOOT MORPHOLOGY: Decreased Ankle join t dorsiflexion ROM, knee extended MUSCLE STRENGTH: 5/5 all groups in a symmetrical fashion, B/L General Examination GENERAL APPEARANCE: Reveals a pleasant, alert, well nourished, well-developed, well hydrated individual, who demonstrates proper attention to hygiene/body habitus, and is in no acute distress, Pt serves as own historian for office visit today ORIENTED: person, place, and t nabil Ophthalmology Referral DIABETES EYE EXAM Diabetic Retinopa thy Screening:: Yes Findings of Diabetic Eye Exam:: no retin opathy Vascular DP PULSES(B): 2/4, B/L PT PULSES(B): 2/4, B/L CAPILLARY FILL TIME: immediate, all digi ts, B/L TEMPERTURE GRADIENT(C): normal, warm to cool, proximal to distal, B/L, B/L TROPHIC CONDITION-TEXTURE/ELASTICITY/TURGOR/HAIR GROWTH(B): normal, B/L EDEMA(C): absent, B/L PIGMENTATION: normal, B/L Nails NAILS are: Elongated, overg rown, dystrophic, lytic, greater than 3mm thick, discolored and friable with crumbly malodorous subungual debris, with pain on palpation , TA , T1 , T4, T5 , T6 , T9 X-Rays - IMAGING REPORT Findings: normal b one and soft tissue density consistent for patients age and sex, increase in soft tissue contour and density at the symptomatic site, navicular/cuneiform plantar subluxation with anterior cyma line, positive retrocalcaneal exostosis, no coalitions identified Fracture: Negative fractures i dentified Views: 3 views of Foot, LAT , LO, MO, RIGHT Clinical Indication(s): Evaluate for Fra cture, Evaluate Biomechanical Deformity
--- OUTSIDE RECORDS SUMMARY | 2024-07-24 05:55 | XMS_ITS ---
Author Organization [facility] Address [address] [place] [address] Care Team Providers Care Entry Writer Name Role Phone Manny Garcia MDneth Primary Care Provider Unava ilTu Pennington Unavailable [phone] REASON FOR VISIT Heel pain Encounters Encounter Location Date Provider Diagnosis [address] [address] 04/17/2024 Tu Pierre Plan Of Treatment Next Appt Details Provider Name:Tu Pierre , 08/30/2024 11:00:00 AM, [address] [place], [address], Progress Notes * Mike BAIRDDOB:[birth year] (63 yo M)Acc No.[id number]:04/17/2024 Patient:?Mike Baird :1960???Age:63 Y???Sex:Male Address:[address] [place], [address] * true * Date:? Generated for Printi israel/Garrison/eTransmitting on:?07/24/2024 05:55 AM EST
--- OUTSIDE RECORDS SUMMARY | 2024-07-24 05:55 | XMS_ITS | Patient Health Record ---
Author Organization [facility] Address [address] [place] [address] Care Team Providers Care Hemodialysis Lab Technician Name Role Phone Jose RENAE, Luis Manuel Primary Care Provider Tu Ch Unavailable [phone] Allergies No Known Allergies Reason For Referral No Information Medications Medication SIG (Take, Route, Frequency, Duration) [...] Problem Type 2 diabetes mellitus without complication (730109131) Type 2 diabetes mellitus without complication (E11.9) Active confirmed Vital Signs Height 6 ft in 06/21/2024 Weight 270 lbs 06/21/2024 BMI 36.61 kg/m2 06/21/2024 Procedures Procedure Date Ordered Date Performed Result Body Sit e 69743-UNZDZSA NAIL, 6 OR MORE 03/08/2024 N/A 81017-Ezpcsphb Plate 03/08/2024 N/A 65412-YKJH SKIN LESIONS, 2 TO 4 03/08/2024 N/A 04332-EETKVSI NAIL, 6 OR MORE 06/21/2024 N/A 54822-IPNS SKIN LESIONS, 2 TO 4 06/21/2024 N/A Encounters Encounter Location Date Provider Diagnosis [facility] [address] [place] [address] 03/08/2024 Tu Pierre Tinea unguium B35.1 ; [...] without complication E11.9 and Ingrown nail L60.[address] [address] 06/21/2024 Tu Pierre Tinea unguium B35.1 ; Pain in right toe(s) M79.674 ; Pain in left toe(s) M79.675 ; Achilles tendinitis of right lower extremity M76.61 and Type 2 diabetes mellitus without complication E11.[address] [address] 01/04/2024 Tu Pierre [address] [address] 04/17/2024 Tu Pierre Assessments Encounter Date Diagnosis (ICD Code) Assessment Notes Treatment Notes Treatment Clinical Notes Section Notes 03/08/2024 Tinea unguium (ICD-10 - B35.1) 03/08/2024 Pain in right toe(s) (ICD-10 - M79.674) 06/21/2024 Tinea unguium (ICD-10 - B35.1) 06/21/2024 Pain in right toe(s) (ICD-10 - M79.674) 06/21/2024 Pain in left toe(s) (ICD-10 - M79.675) 03/08/2024 Pain in left toe(s) (ICD-10 - M79.675) 03/08/2024 Achilles tendinitis of right lower extremity (ICD-10 - M76.61) Patient Educated with: HEEL CORD STRETCHES.pdf (HEEL CORD STRETCHES.pdf) Patient Educated with: RICE THERAPY.pdf (RICE THERAPY.pdf) 06/21/2024 Achilles tendinitis of right lower extremity (ICD-10 - M76.61) 06/21/2024 Type 2 diabetes mellitus without complication (ICD-10 - E11.9) 03/08/2024 Pain of right heel (ICD-10 - M79.671) 03/08/2024 Exostosis of right posterior calcaneus (ICD-10 - M77.31) 03/08/2024 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) 03/08/2024 Short Achilles tendon (acquired), right ankle (ICD-10 - M67.01) 03/08/2024 Type 2 diabetes mellitus without complication (ICD-10 - E11.9) 03/08/2024 Ingrown nail (ICD-10 - L60.0) Plan Of Treatment Pending Test Test Name Order Date X ray : Foot, right 3V 03/08/2024 13419-MIJEXYI NAIL, 6 OR MORE 03/08/2024 22905-QUCIIGM NAIL, 6 OR MORE 06/21/2024 64404-Hukzbizx Plate 03/08/2024 88965-GNIX SKIN LESIONS, 2 TO 4 03/08/20 26473-HBBD SKIN LESIONS, 2 TO 4 06/21/20 Next Appt Details Provider Name:Tu Pierre , 08/30/2024 11:00:00 AM, [address] [place] [address], [phone], Insurance Providers Payer Name Payer Address Payer Phone Subscriber Number Group Number Insured Name Patient Relationship to Insured Coverage Start Date Coverage End Date [facility] [employer] Claims [address] [place] [phone] [id number] Mike Cornejo Self - patient is the insured Medical (General) History Medical History History ICD Code Diabetic Surgical History Surgery Date(Month/Year)
--- OUTSIDE RECORDS SUMMARY | 2024-07-24 05:56 | XMS_ITS ---
Author Organization [facility] Address [address] [place] [address] Care Team Providers Care Machine Rope Maker Name Role Phone Luis Manuel Garcia Primary Care Provider Debbie Pedro Unavailable [phone] Genesis Walton Unavailable [phone] REASON FOR VISIT Quarterly Wellness Visit MEDICATIONS [...] Once a day Active Icy Hot Medicated [place] 16 % 1 application as needed Externally [...] 1 tablet Orally Once a day Active [employer]Touch Ultra Test Strips - As Directed To Skin Three times a day for 30 days Type 2 Diabetes Mellitus with unspecified complications - E11.8 Active Fiber Therapy 500 MG 2 tablets with a full glass of water as needed Orally three times a day Active [employer]ToHiringThing Ultra 2 w/Device as directed for 99 [...] 01/25/2024 Encounters Encounter Location Date Provider Diagnosis [facility] Primary Care - [address] [address] 01/25/2024 Genesis Walton Type 2 diabetes mellitus [...] Onc e a day Icy Hot Medicated [place] 16 % 1 application as needed Externally [...] Next Appt Details Follow Up: 3 Months,prn, [place] son: Quarterly Wellness Visit Progress Notes * [...]
--- OUTSIDE RECORDS SUMMARY | 2024-07-24 05:56 | XMS_ITS ---
Author Organization [facility] Address [address] [place] [address] Care Team Providers Care Citizenship Instructor Name Role Phone Luis Manuel Garcia Primary Care Provider Debbie Pedro Unavailable [phone] Genesis Walton Unavailable [phone] ALLERGIES No Known Allergies REASON FOR VISIT Wellness Visit MEDICATIONS Medication SIG (Take, Route, Frequency, Duration) Notes Start Date End Date Status Benztropine Mesylate 0.5 MG 1 tablet Orally Twice a Day Active Icy Hot Medicated [place] 16 % 1 application as needed Externally [...] temp. Encounters Encounter Location Date Provider Diagnosis [facility] Primary Care [address] [address] 10/16/2023 Genesis Anton Type 2 diabetes mellitus [...] Orally Twice a Day Icy Hot Medicated [place] 16 % 1 application as needed Externally [...]
--- OUTSIDE RECORDS SUMMARY | 2024-07-24 05:56 | XMS_ITS ---
Author Organization [facility] [place] [address] Care Team Providers Care Senior It Recruiter Name Role Phone Luis Manuel Garcia Primary Care Provider Unavaila Debbie Diallo Unavailable [phone] Genesis Walton Unavailable [phone] REASON FOR VISIT Quarterly Wellness Visit Encounters Encounter Location Date Provider Diagnosis [facility] Primary Care - [address] [address] 10/23/2023 Genesis Walton PLAN OF TREATMENT No Information
--- OUTSIDE RECORDS SUMMARY | 2024-07-24 05:56 | XMS_ITS | Patient Health Record ---
Author Organization [facility] [place] [address] Care Team Providers Care Tying Machine Operator Name Role Phone Luis Manuel Garcia Primary Care Provider Debbie Pedro Unavailable [phone] Clinical, Operations Unavailable Unavailable Genesis Walton Unavailable [phone] ALLERGIES No Known Allergies RESULTS Component Value [...] 1 tablet Orally Once a day Active IOCSTouch Ultra 2 w/Device as directed for 99 [...] Day - PRN Active Icy Hot Medicated [place] 16 % 1 application as needed Externally [...] COMIRNATY Vaccine, Fall 2022, SARS-CoV-2 virus strain Omicron XBB.1.5 Unknown 07/03/2023 Administered COVID-19 COMIRNATY Vaccine, Fall 2022, SARS-CoV-2 virus strain Omicron XBB.1.5 Unknown 04/17/2024 Administered COVID-19, mRNA, LNP-S, bival ent booster, PF, 30 mcg/0.3 mL Unknown 08/04/2022 Administered Flu Vac (Fluzone /Alfuria) QIV PFS Unknown 03/29/2022 A dministered Flu Vac (Fluzone /Alfuria) QIV PFS Unknown 04/04/2023 A dministered Flu Vac (Fluzone) QIV, MDV Unknown 03/16/2021 Administe red Influenza, injectable, MDCK, preservative free Unknown 04/17/2024 Administered [employer] (J&J) COVID-19 Vaccine IM Unknown 11/18/2020 Ad ministered Pfizer-BioGro[employer]oph[employer]. COVID-19 Vac cine 12+ IM Unknown 12/09/2021 Administered Pfizer-BioNTClinked COVID-19 Vaccine IM Unknown 07/22/2021 Administered SOCIAL [...] Notes Problem Presbyopia (H52.4) Active confirmed 412 69223 Problem Hypertension (I10) Active confirmed 383 87555 Problem Type 2 diabetes mellitus with unspecified complications (E11.8) Active confirmed 17884345 Problem Schizoaffective disorder (F25.9) Active confirmed 23978734 Problem Pain in right knee (M25.561) Active confirmed 1061719898 Problem Other chronic pain (G89.29) Active confirmed 86022744 Problem Hypertensive chronic kidney disease with stage 1 through stage 4 chronic kidney disease, or unspecified chronic kidney disease (I12.9) Active confirmed 368654069800559 Problem Schizoaffective disorder, bipolar type (F25.0) Active confirmed 75491117 Problem Morbid obesity with BMI of 40.0-44.9, adult (E66.01) Active confirmed 213856159 Problem BPH (benign prostatic hyperplasia) (N40.0) Active confirmed Benign prostati c hyperplasia (402168825) Problem Pain in left knee (M25.562) Active confirmed 590080816629744 Problem Anxiety (F41.9) Active confirmed 571629 02 Problem Polyneuropathy (G62.9) Active confirmed 67671275 Problem Corns and callosities (L84) Active confirmed 844294405 Problem Myopia, bilateral (H52.13) Active confirmed 798095170529282 Problem Bilateral primary osteoarthritis of knee (M17.0) Active confirmed 466354163 Problem Pain in left foot (M79.672) Active confirmed 267559249094567 Problem Functional dyspepsia (K30) Active confirmed 2458386 Problem Melena (K92.1) Active confirmed 0388665 Problem Pain in right foot (M79.671) Active confirmed 41035759561312556 Problem Age-related nuclear cataract, bilateral (H25.13) Active confirmed 281759513986716 Problem Dermatochalasis of right upper eyelid (H02.831) Active confirmed 993653679595538 Problem Left anterior fascicular block (I44.4) Active confirmed 81222624 Problem Hypotension, unspecified hypotension type (I95.9) Active confirmed 62036806 Problem Erectile dysfunction, unspecified erectile dysfunction type (N52.9) Active confirmed 229699309 Problem Anxiety disorder, unspecified type (F41.9) Active confirmed 466569082 Problem Hyperlipidemia, unspecified hyperlipidemia type (E78.5) Active confirmed 42495218 Problem Chest pain, unspecified type (R07.9) Active confirmed 21610400 Problem Chronic idiopathic constipation (K59.04) Active confirmed 49291646 Problem Bilateral hearing loss, unspecified hearing loss type (H91.93) Active confirmed 75420704 Problem Noninfectious gastroenteritis, unspecified type (K52.9) Active confirmed 13696403 Problem Hepatic cirrhosis, unspecified hepatic cirrhosis type, unspecified whether ascites present (K74.60) Active confirmed 97701169 Problem Stage 3 chronic kidney disease, unspecified whether stage 3a or 3b CKD (N18.30) Active confirmed 484408683 Problem Lumbar pain (M54.50) Active confirmed 470847493 VITAL SIGNS Heart Rate 82 /min 01/25/2024 Temperature 97.2 degrees Fahrenheit 01/25/2024 Respiratory Rate 16 /min 01/25/2024 Blood pressure diastolic 86 mm Hg 01/25/2024 Oximetry 99 % 01/25/2024 Weight-kg 120.02 kg 10/16/2023 Pain: 110 in lower back. APC's thermometer not working at visit, unable to check temp. Blood pressure systolic 110 mm Hg 01/25/2024 Weight 264.6 lbs 10/16/2023 Pain: 1 in lower back. APC's thermometer not working at visit, unable to check temp. Encounters Encounter Location Date Provider Diagnosis [facility] ([facility]) [address] [place] [address] 10/05/2023 Operations Clinical Type 2 diabetes mellitus [...] disease, or unspecified chronic kidney disease I12.[address] [address] 10/16/2023 Genesis Dillanhoracio Type 2 diabetes mellitus with unspecified complications E11.8 ; Lumbar pain M54.50 ; Pain in left knee M25.562 ; Pain in right knee M25.561 ; Schizoaffective disorder, bipolar type F25.0 ; Anxiety disorder, unspecified type F41.9 and Bilateral hearing loss, unspecified hearing loss type H91.[address] [address] 01/25/2024 Genesis Dillanhoracio Type 2 diabetes mellitus with unspecified complications E11.8 ; Lumbar pain M54.50 ; Pain in left knee M25.562 ; Pain in right knee M25.561 ; Schizoaffective disorder, bipolar type F25.0 ; Anxiety disorder, unspecified type F41.9 ; Impaired skin integrity R23.9 ; Bone spur of right foot M77.51 and Hypertension I10 [address] [address] 10/23/2023 Genesis Dillanhoracio ASSESSMENTS Encounter Date Diagnosis Assessment Notes Treatment Notes Treatment Clinical Notes 10/05/2023 Type 2 diabetes mellitus with unspecified [...] contact PCP/APC 10/05/2023 Hypertension (ICD-10 - I10) 10/05/2023 Schizoaffective disorder (ICD-10 - F25.9) 10/16/2023 Pain in left knee (ICD-10 - M25.562) 01/25/2024 Pain in left knee (ICD-10 - M25.562) 10/16/2023 Pain in right knee (ICD-10 - M25.561) 01/25/2024 Pain in right knee (ICD-10 - M25.561) 10/05/2023 Morbid obesity with BMI of 40.0-44.9, adult (ICD-10 - E66.01) 10/05/2023 BPH (benign prostatic hyperplasia) (ICD-10 - [...] disorder, unspecified type (ICD-10 - F41.9) 10/05/2023 Corns and callosities (ICD-10 - L84) [...] unspecified chronic kidney disease (ICD-10 - I12.9) PLAN OF TREATMENT Pending Test Test Name Order Date MDS assessment 04/25/2014 Insurance Providers Payer Name Payer Address Payer Phone Subscriber Number Group Number Insured Name Patient Relationship to Insured Coverage Start Date Coverage End Date [address] [phone] [id number] BASILIA BAIRD Self - patient is the insured [address] [phone] [id number] BASILIA BAIRD Self - patient is the insured 3 8 MEDICAL (GENERAL) HISTORY Medical History History ICD Code DM II (Polyneuropathy) HTN Schizoaffective (Bipolar Type) Morbid Obesity BPH Constipation OA Chronic Pain Anxiety Bilateral Hearing Loss Hepatic Cirrhosis HLD Hospitalization History Reason Date(Month/Year) ED: ABD Pain, Constipation February 2023 [facility] ED: Hyperglycemia 01/04/23
== END 2024-07-19 08:48 | disposition home or self-care (01) ==
LOC: HO.LAB 08:47
PROVIDERS: PCP Internal Medicine; Visit Provider Internal Medicine
DX: I10 Essential (primary) hypertension (principal); R30.0 Dysuria; E11.9 Type 2 diabetes mellitus without complications; E78.00 Pure hypercholesterolemia, unspecified; E55.9 Vitamin D deficiency, unspecified; D64.9 Anemia, unspecified
CPT/HCPCS: 36415; 80053; 80061; 81001; 82043; 82306; 82570; 83036; 84443; 85025

== ENCOUNTER 2024-08-02 09:47 | Outpatient (AMB) | payer OTHER, SELFPAY ==
--- OUTSIDE RECORDS SUMMARY | 2024-08-02 09:49 | XMS_ITS ---
Author Organization [facility] Address [address] [place] [address] Care Team Providers Care Newsagent Name Role Phone Manny Garcia MDneth Primary Care Provider Unava ilTu Pennington Unavailable [phone] REASON FOR VISIT Heel pain Encounters Encounter Location Date Provider Diagnosis [address] [address] 04/17/2024 Tu Pierre Plan Of Treatment Next Appt Details Provider Name:Tu Pierre , 08/30/2024 11:00:00 AM, [address] [place], [address], Progress Notes * Mike BAIRDDOB:[birth year] (63 yo M)Acc No.[id number]:04/17/2024 Patient:?Mike Baird :1960???Age:63 Y???Sex:Male Address:[address] [place], [address] * true * Date:? Generated for Printi israel/Garrison/eTransmitting on:?08/02/2024 09:49 AM EST
--- OUTSIDE RECORDS SUMMARY | 2024-08-02 09:49 | XMS_ITS ---
Author Organization [facility] Address [address] [place] [address] Care Team Providers Care Program Aide Name Role Phone New Garcia MDh Primary Care Provider Tu Ch Unavailable [phone] Allergies No Known Allergies REASON FOR VISIT [...] Ordered Date Performed Result Body Sit e 72152-SNENSZE NAIL, 6 OR MORE 06/21/2024 N/A 60122-HQLM SKIN LESIONS, 2 TO 4 06/21/2024 N/A Encounters Encounter Location Date Provider Diagnosis [facility] [address] [place] [address] 06/21/2024 Tu Pierre Tinea unguium B35.1 ; [...] Treatment Pending Test Test Name Order Date 72830-SJPRZOD NAIL, 6 OR MORE 06/21/2024 46159-ALDU SKIN LESIONS, 2 TO 4 06/21/20 24 Next Appt Details Follow Up: 2 Months, Reason: Provider Name:Tu Pierre , 08/30/2024 11:00:00 AM, [address] [place] [address], [address], Procedure Notes * Category Sub-Category Detail Notes [...] use of a nail nipper and/or dremel-type refractory grinder operator, to a more viable healthy nail plate or bed tissue 6-10. Silver nitrate used for any petechial bleeding as necessary. Definitive antifungal treatment options have been reviewed and discussed with the patient. The patient chooses, no pharmaceutical tx - 06068 Keratoma Treatment Parring or Cutting o f Benign Hyperkeratotic Lesion(s) (-56) 2-4 Lesions - The Benign hyperkeratotic lesions, as described in exam, were pared, and/or cut utilizing a sterile 15 blade, tissue nippers, and/or dremel - 63828 Progress Notes * Kashmir BAIRD:[birth year] (63 yo M)Acc No.[id number]:06/21/2024 Progress Note Patient:?Mike Baird Provider:?Tu Pierre DPM :1960???Age:63 Y???Sex:Male Taurus e:06/21/2024 Address:[address] [place] [address] [address], [id number] Pcp:Luis Manuel Garcia MD Subjective: * Chief [...] Treatment: 2.?Type 2 diabetes mellitus without complication?Procedure: 50813-RMWQ SKIN LESIONS, 2 TO 4 * Procedures:?Debride [...] use of a nail nipper and/or dremel-type refractory grinder operator, to a more viable healthy nail plate or bed tissue 6-10. Silver nitrate used for any petechial bleeding as necessary. Definitive antifungal treatment options have been reviewed and discussed with the patient. The patient chooses, no pharmaceutical tx - 13027.?Keratoma Treatment:?Parring or Cutting of Benign Hyperkeratotic Lesion(s)?(-56) 2-4 Lesions - The Benign hyperkeratotic lesions, as described in exam, were pared, and/or cut utilizing a sterile 15 blade, tissue nippers, and/or dremel - 97130.? * Procedure Codes:?54115 DEBRI DE NAIL, 6 OR MORE, Modifiers: XS 80189 TRIM SKIN LESIONS, 2 TO 4, Modifiers: [...] Pierre DPM Date:?2023 Generated for Ruthy wood/Garrison/Harvey on:?08/02/2024 09:49 AM EST History and Physical Notes * [...]
--- OUTSIDE RECORDS SUMMARY | 2024-08-02 09:50 | XMS_ITS ---
Author Organization [facility] Address [address] [place] [address] Care Team Providers Care Cut Order Hand Name Role Phone Luis Manuel Garcia Primary Care Provider Debbie Pedro Unavailable [phone] Genesis Walton Unavailable [phone] ALLERGIES No Known Allergies REASON FOR VISIT Wellness Visit MEDICATIONS Medication SIG (Take, Route, Frequency, Duration) Notes Start Date End Date Status Benztropine Mesylate 0.5 MG 1 tablet Orally Twice a Day Active Icy Hot Medicated [place] 16 % 1 application as needed Externally [...] Encounters Encounter Location Date Provider Diagnosis [facility] Primary Care [address] [address] 10/16/2023 Genesis Anton Type 2 diabetes mellitus [...] Orally Twice a Day Icy Hot Medicated [place] 16 % 1 application as needed Externally [...]
--- OUTSIDE RECORDS SUMMARY | 2024-08-02 09:50 | XMS_ITS | Patient Health Record ---
Author Organization [facility] [place] [address] Care Team Providers Care Marking Machine Operator Name Role Phone Luis Manuel Garcia Primary Care Provider Debbie Pedro Unavailable [phone] Clinical, Operations Unavailable Unavailable Genesis Walton Unavailable [phone] ALLERGIES No Known Allergies RESULTS Component Value [...] 1 tablet Orally Once a day Active [employer]aterTouch Ultra 2 w/Device as directed for 99 [...] Day - PRN Active Icy Hot Medicated [place] 16 % 1 application as needed Externally [...] injectable, MDCK, preservative free Unknown 04/17/2024 Administered [employer] (J&J) COVID-19 Vaccine IM Unknown 11/18/2020 Ad ministered Pfizer-Biowritewith COVID-19 Vac cine 12+ IM Unknown 12/09/2021 Administered Pfizer-BioNTKingsoft COVID-19 Vaccine IM Unknown 07/22/2021 Administered SOCIAL [...] Notes Problem Presbyopia (H52.4) Active confirmed 412 58051 Problem Hypertension (I10) Active confirmed 383 07921 Problem Type 2 diabetes mellitus with unspecified complications (E11.8) Active confirmed 60269336 Problem Schizoaffective disorder (F25.9) Active confirmed 49162106 Problem Pain in right knee (M25.561) Active confirmed 9100753982 Problem Other chronic pain (G89.29) Active confirmed 37376864 Problem Hypertensive chronic kidney disease with stage 1 through stage 4 chronic kidney disease, or unspecified chronic kidney disease (I12.9) Active confirmed 217974774168101 Problem Schizoaffective disorder, bipolar type (F25.0) Active confirmed 80221312 Problem Morbid obesity with BMI of 40.0-44.9, adult (E66.01) Active confirmed 351853797 Problem BPH (benign prostatic hyperplasia) (N40.0) Active confirmed Benign prostati c hyperplasia (150247563) Problem Pain in left knee (M25.562) Active confirmed 294238588416936 Problem Anxiety (F41.9) Active confirmed 787844 02 Problem Polyneuropathy (G62.9) Active confirmed 51734328 Problem Corns and callosities (L84) Active confirmed 972377866 Problem Myopia, bilateral (H52.13) Active confirmed 410248588010292 Problem Bilateral primary osteoarthritis of knee (M17.0) Active confirmed 610251898 Problem Pain in left foot (M79.672) Active confirmed 890090183749151 Problem Functional dyspepsia (K30) Active confirmed 6517582 Problem Melena (K92.1) Active confirmed 7017951 Problem Pain in right foot (M79.671) Active confirmed 17269690790609097 Problem Age-related nuclear cataract, bilateral (H25.13) Active confirmed 074331122151990 Problem Dermatochalasis of right upper eyelid (H02.831) Active confirmed 878380131570599 Problem Left anterior fascicular block (I44.4) Active confirmed 09576631 Problem Hypotension, unspecified hypotension type (I95.9) Active confirmed 88933054 Problem Erectile dysfunction, unspecified erectile dysfunction type (N52.9) Active confirmed 093144796 Problem Anxiety disorder, unspecified type (F41.9) Active confirmed 439714976 Problem Hyperlipidemia, unspecified hyperlipidemia type (E78.5) Active confirmed 37293455 Problem Chest pain, unspecified type (R07.9) Active confirmed 56926190 Problem Chronic idiopathic constipation (K59.04) Active confirmed 62674314 Problem Bilateral hearing loss, unspecified hearing loss type (H91.93) Active confirmed 81294713 Problem Noninfectious gastroenteritis, unspecified type (K52.9) Active confirmed 56232815 Problem Hepatic cirrhosis, unspecified hepatic cirrhosis type, unspecified whether ascites present (K74.60) Active confirmed 68545245 Problem Stage 3 chronic kidney disease, unspecified whether stage 3a or 3b CKD (N18.30) Active confirmed 653799645 Problem Lumbar pain (M54.50) Active confirmed 414364769 VITAL SIGNS Heart Rate 82 /min 01/25/2024 [...] temp. Encounters Encounter Location Date Provider Diagnosis [facility] ([facility]) [address] [place] [address] 10/05/2023 Operations Clinical Type 2 diabetes mellitus [...] disease, or unspecified chronic kidney disease I12.[address] [address] 10/16/2023 Genesis Dillanhoracio Type 2 diabetes mellitus with unspecified complications E11.8 ; Lumbar pain M54.50 ; Pain in left knee M25.562 ; Pain in right knee M25.561 ; Schizoaffective disorder, bipolar type F25.0 ; Anxiety disorder, unspecified type F41.9 and Bilateral hearing loss, unspecified hearing loss type H91.[address] [address] 01/25/2024 Genesis Dillanhoracio Type 2 diabetes mellitus with unspecified complications E11.8 ; Lumbar pain M54.50 ; Pain in left knee M25.562 ; Pain in right knee M25.561 ; Schizoaffective disorder, bipolar type F25.0 ; Anxiety disorder, unspecified type F41.9 ; Impaired skin integrity R23.9 ; Bone spur of right foot M77.51 and Hypertension I10 [address] [address] 10/23/2023 Genesis Dillanhoracio ASSESSMENTS Encounter Date Diagnosis [...] Insured Coverage Start Date Coverage End Date [address] [phone] [id number] BASILIA BAIRD Self - patient is the insured [address] [address] [id number] BASILIA BAIRD Self - patient is the insured 3 8 MEDICAL (GENERAL) HISTORY Medical History History ICD Code DM II (Polyneuropathy) HTN Schizoaffective (Bipolar Type) Morbid Obesity BPH Constipation OA Chronic Pain Anxiety Bilateral Hearing Loss Hepatic Cirrhosis HLD Hospitalization History Reason Date(Month/Year) ED: ABD Pain, Constipation February 2023 [facility] [place] ED: Hyperglycemia 01/04/23
--- OUTSIDE RECORDS SUMMARY | 2024-08-02 09:50 | XMS_ITS ---
Author Organization [facility] Address [address] [place] [address] Care Team Providers Care Notching Press Operator Name Role Phone Luis Manuel Garcia Primary Care Provider Debbie Pedor Unavailable [phone] Genesis Walton Unavailable [phone] REASON FOR VISIT Quarterly Wellness Visit MEDICATIONS [...] Once a day Active Icy Hot Medicated [place] 16 % 1 application as needed Externally [...] 1 tablet Orally Once a day Active JAMF SoftwareTouch Ultra Test Strips - As Directed To Skin Three times a day for 30 days Type 2 Diabetes Mellitus with unspecified complications - E11.8 Active Fiber Therapy 500 MG 2 tablets with a full glass of water as needed Orally three times a day Active JAMF [email or web address] Ultra 2 w/Device as directed for 99 [...] 01/25/2024 Encounters Encounter Location Date Provider Diagnosis [facility] Primary Care - [address] [address] 01/25/2024 Genesis Walton Type 2 diabetes mellitus [...] Onc e a day Icy Hot Medicated Powell 16 % 1 application as needed Externally [...] Next Appt Details Follow Up: 3 Months,prn, Wyatt son: Quarterly Wellness Visit Progress Notes * [...]
--- OUTSIDE RECORDS SUMMARY | 2024-08-02 09:50 | XMS_ITS ---
Author Organization [facility] [place] [address] Care Team Providers Care Environmental Scientists Name Role Phone Luis Manuel Garcia Primary Care Provider Unavaila Debbie Diallo Unavailable [phone] Genesis Walton Unavailable [phone] REASON FOR VISIT Quarterly Wellness Visit Encounters Encounter Location Date Provider Diagnosis [facility] Primary Care - [address] [address] 10/23/2023 Genesis Walton PLAN OF TREATMENT No Information
--- OUTSIDE RECORDS SUMMARY | 2024-08-02 09:50 | XMS_ITS ---
Author Organization [facility] Address [address] [place] [address] Care Team Providers Care Ornamental Ironworking Supervisor Name Role Phone New Garcia MDh Primary Care Provider Tu Ch Unavailable [phone] Allergies No Known Allergies REASON FOR VISIT [...] Problem Type 2 diabetes mellitus without complication (897556717) Type 2 diabetes mellitus without complication (E11.9) Active confirmed Vital Signs Height 6 ft in 03/08/2024 Weight 270 lbs 03/08/2024 BMI 36.61 kg/m2 03/08/2024 Procedures Procedure Date Ordered Date Performed Result Body Sit e 74759-VWXSQDQ NAIL, 6 OR MORE 03/08/2024 N/A 58140-Ikhpnjir Plate 03/08/2024 N/A 24782-XCMU SKIN LESIONS, 2 TO 4 03/08/2024 N/A Encounters Encounter Location Date Provider Diagnosis [facility] [address] [place] [address] 03/08/2024 Tu Pierre Tinea unguium B35.1 ; [...] X ray : Foot, right 3V 03/08/2024 98274-VKHAGWU NAIL, 6 OR MORE 03/08/2024 64006-Ucmegjuz Plate 03/08/2024 87598-YSHM SKIN LESIONS, 2 TO 4 03/08/20 24 Next Appt Details Follow Up: 2 Months, Reason: Provider Name:Tu Pierre , 08/30/2024 11:00:00 AM, [address] [place], [address], Procedure Notes * Category Sub-Category Detail Notes [...] Motrin was recommended for pain or discomfort (86489) , DIABETES: Pt was advised as to [...] as necessary. Patient chooses, no pharmaceutical tx (11981) Keratoma Treatment Parring or Cutting o f Benign Hyperkeratotic Lesion(s) 17631 ( 2-4 Lesions ) - The Benign hyperkeratotic lesions, as described above were pared, and/or cut utilizing a sterile 15 blade, tissue nippers, and/or dremel Progress Notes * Mike BAIRDDOB:[birth year] (63 yo M)Acc No.[id number]:03/08/2024 Progress Notes Patient:?Mike Baird Provider:?Tu Pierre DPM :1960???Age:63 Y???Sex:Male Taurus e:03/08/2024 Address:[address] [place] [address] , [place] orozco, [facility] Pcp:Luis Manuel Garcia MD Subjective: * Chief [...] 3V 4.?Type 2 diabetes mellitus without complication?Procedure: 22931-MLFO SKIN LESIONS, 2 TO 4 5.?Ingrown nail?Procedure: 64467-Nzpntvcx Plate * Procedures:?Debride Nail 6-10:?Nail debridement?Nail debridement performed extensively to reduce/remove overall nail length, girth, thickness, subungual debris, and necrotic tissue, by manual and electrical means through the use of a nail nipper and/or dremel, to more viable healthy nail plate or bed tissue 1-5. Silver nitrate used for any petechial bleeding as necessary. Patient chooses, no pharmaceutical tx (83265).?Keratoma Treatment:?Parring or Cutting of Benign Hyperkeratotic Lesion(s)?65065 ( 2-4 Lesions ) - The Benign [...] Motrin was recommended for pain or discomfort (55839) , DIABETES: Pt was advised as to the risk of delayed or nonhealing due to diabetes. Pt is to call the office with any questions, concerns, or complications.? * Procedure Codes:?08346 DEBRI DE NAIL, 6 OR MORE, Modifiers: XS 70367 Avulsion Plate, Modifiers: XS , [id number] X-RAY EXAM OF RIGHT FOOT 3V, Modifiers: 26 , [id number] TRIM SKIN LESIONS, 2 TO 4, Modifiers: [...] Interfil injection therapy, as well as surgical Choctaw/Calcanectomy- tendon debridement surgical procedures if needed. Recommendations [...] painful condition.?Podiatric Surgery Counseling:?Surgical procedures such as Choctaw vs Exostectomy with Partial calcanectomy and Achilles [...] Provider:?Tu Pierre DPM Date:?2023 Generated for Ruthy wood/Garrison/Modestoitting on:?08/02/2024 09:49 AM EST History and Physical [...] Eye Exam:: no retin opathy Vascular DP PULSES (B): 2/4, B/L PT PULSES (B): 2/4, B/L CAPILLARY FILL TIME: immediate, all digi ts, B/L TEMPERTURE GRADIENT (C): normal, warm to cool, proximal to distal, B/L, B/L TROPHIC CONDITION-TEXTURE/ELASTICITY/TURGOR/HAIR GROWTH (B): normal, B/L EDEMA (C): absent, B/L PIGMENTATION: normal, B/L Nails NAILS [...]
--- OUTSIDE RECORDS SUMMARY | 2024-08-02 09:50 | XMS_ITS | Patient Health Record ---
Author Organization [facility] Address [address] [place] [address] Care Team Providers Care Geophysical Manager Name Role Phone Jose RENAE, Luis Manuel Primary Care Provider Tu Ch Unavailable [phone] Allergies No Known Allergies Reason For Referral [...] Problem Type 2 diabetes mellitus without complication (973347691) Type 2 diabetes mellitus without complication (E11.9) Active confirmed Vital Signs Height 6 ft in 06/21/2024 Weight 270 lbs 06/21/2024 BMI 36.61 kg/m2 06/21/2024 Procedures Procedure Date Ordered Date Performed Result Body Sit e 34078-DGYGZES NAIL, 6 OR MORE 03/08/2024 N/A 33406-Ommkgssp Plate 03/08/2024 N/A 34528-EICR SKIN LESIONS, 2 TO 4 03/08/2024 N/A 26337-TLFUPHB NAIL, 6 OR MORE 06/21/2024 N/A 95523-VZZH SKIN LESIONS, 2 TO 4 06/21/2024 N/A Encounters Encounter Location Date Provider Diagnosis [facility] [address] [place] [address] 03/08/2024 Tu Pierre Tinea unguium B35.1 ; [...] without complication E11.9 and Ingrown nail L60.[address] [address] 06/21/2024 Tu Pierre Tinea unguium B35.1 ; Pain in right toe(s) M79.674 ; Pain in left toe(s) M79.675 ; Achilles tendinitis of right lower extremity M76.61 and Type 2 diabetes mellitus without complication E11.[address] [address] 01/04/2024 Tu Pierre [address] [address] 04/17/2024 Tu Pierre Assessments Encounter Date Diagnosis [...] X ray : Foot, right 3V 03/08/2024 97921-SMYMAIL NAIL, 6 OR MORE 03/08/2024 13493-KEMPCND NAIL, 6 OR MORE 06/21/2024 74660-Wvfkcbgl Plate 03/08/2024 03408-TAOC SKIN LESIONS, 2 TO 4 03/08/20 25047-VOCX SKIN LESIONS, 2 TO 4 06/21/20 Next Appt Details Provider Name:Tu Pierre , 08/30/2024 11:00:00 AM, [address] [place] [address], [phone], Insurance Providers Payer Name Payer Address Payer Phone Subscriber Number Group Number Insured Name Patient Relationship to Insured Coverage Start Date Coverage End Date [facility] [employer] Claims [address] [place] [id number] [phone] [id number] Mike Cornejo Self - patient is the insured Medical (General) History Medical History History ICD Code Diabetic Surgical History Surgery Date(Month/Year)
[2024-08-02 09:56] VITALS: BP 116/80; PULSE 94; O2SAT 96; BMI 34.9
--- NOTE | 2024-08-02 09:56 | MHC.PC.OV ---
Vital Signs 08/02/24 09:56 Height 6 ft 1 in Weight 264 lb 4 oz BMI 34.9 BP 116/80 Blood Pressure Location Lt brachial Position Sitting Pulse 94 Pulse Source Pulse Oximeter Pulse Oximetry (%) 96 Oxygen Delivery Method Room Air Intake Visit Reasons: 3 Months F/U [employer] Required: No Accompanied by: Self / Same As Patient Allergies No Known Allergies [No Known Allergies*] Allergy (Verified 08/02/24 10:09) Medication List - Last Reconciled 08/02/24 by NATE Watson acetaminophen 1,000 mg (2 x 500 mg) PO Q6H PRN atorvastatin 10 mg PO DAILY benztropine 0.5 mg PO BID bisacodyl 10 mg (2 x 5 mg) PO BID blood sugar diagnostic (FreeStyle Lite Strips) Tests 5X/day blood-glucose meter (FreeStyle Lite Meter kit) Tests 4 X/day blood-glucose meter (FreeStyle Lite Meter kit) As directed carbamide peroxide 6.5% (Debrox) 5 drps otic (ear) left DAILY 4 days cholecalciferol (vitamin D3) 25 mcg PO DAILY clozapine 100 mg PO TID cyclobenzaprine 10 mg PO DAILY PRN docusate sodium 100 mg PO BID empagliflozin (Jardiance) 25 mg PO QAM flash glucose scanning reader (PlayFirstStyle Jody 2 [place]) USE DIRECTED TO TEST BLOOD SUGAR furosemide 20 mg PO DAILY gabapentin 300 mg PO BEDTIME 90 days glycerin (adult) 2 supp AL .after shower guaifenesin 400 mg (10 mL) PO Q6H PRN hydroxyzine pamoate 50 mg PO TID PRN ibuprofen 800 mg PO Q8H PRN 30 days ketoconazole 2% 1 appl topical DAILY L.acidoph, paracasei,B. lactis (Digestive Advantage Advanced Probiotic) cells PO lancets (FreeStyle Lancets) Tests 5x/day lidocaine 5% 1 patch topical DAILY linaclotide (Linzess) 290 mcg PO QAM 30 days magnesium hydroxide (Milk of Magnesia) 20 mL PO BEDTIME PRN metformin 1,000 mg (2 x 500 mg) PO BID 90 days methylcellulose (laxative) (Fiber Therapy (methylcellulose)) 1,000 mg (2 x 500 mg) PO TID metoclopramide HCl (Reglan) 10 mg PO TID pen needle, diabetic (BD Ultra-Fine Original Pen Needle) As directed daily phenol-glycerin 1.5-33 % (Chloraseptic Max Sore Throat) 1 spray mucous membrane Q6-8H PRN polyethylene glycol 3350 (Miralax) 17 grams PO BID psyllium seed (sugar) (Metamucil (sugar) oral powder) 1 tsp PO BID sildenafil 50 mg PO DAILY PRN Tresiba FlexTouch U-200 (insulin degludec) 30 units (0.15 mL) subcut DAILY 90 days NS Tobacco use date assessed: 08/02/24 Dental Screening Dental Screen Date: 08/02/24 Did you have a dental visit in the last 12 months?: No Did you have a dental problem in the last 6 months where you did not have access to dental care?: No Was dental information given to patient?: Patient has dentist HPI 3 Months F/U HPI Details Patient is a 63-year-old male with significant past medical history of 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, hypercholesteremia, chronic kidney disease stage III, chronic idiopathic constipation, and hypertension. The patient is present today for his follow-up appointment. The patient denies shortness of breath, chest pain, heart palpitations, dizziness, he denies stomach pain. However, he endorse chronic constipation, per patient, he took his medication last night and had a bowel movement this morning. Reports that he is feeling much better after having a bowel movement this morning. The patient labs were reviewed with him, he reports that he had been trying to make dietary changes. He reports that it is a struggle when he is at work, to make sure his blood sugar does not fall too low, he at time, eats [place]'s even though he knows that is not the healthiest option. The patient reports that he has not seen Endocrine for quite some time and worries that he would not be able to make the appointment if he was referred. The patient was reminded that endocrine is in the building next to this office. The patient reports that he will give it a try in that case. He reports that he checks his blood sugar 3 to 4 times a day. He has been ranging in the 150s to high 200s. He reports that he always feels thirsty and drinks a lot of water. He denies nausea or vomiting, he denies any changes in his vision or mentation. He reports that he checks his feet regularly and there was no cuts or lesions on his feet the last time he checked and does not wish to remove shoes at this time. [facility] Medical History Impacted cerumen, right ear Acute diarrhea Pain in both feet Calcaneal spur of right foot Achilles tendinitis Callus of foot Right hand pain Abdominal bloating Vertigo Calcaneal spur Colon cancer screening COVID-19 Pre-op examination Elevated LFTs Encounter for Medicare annual wellness exam Bowel obstruction Melena Knee pain, bilateral Gastroenteritis Healed wound Chronic idiopathic constipation Chronic idiopathic constipation Hospital discharge follow-up Knee osteoarthritis Obesity (BMI 30-39.9) Schizoaffective disorder Pure hypercholesterolemia Benign essential hypertension Chronic kidney disease (CKD), stage III (moderate) Type 2 diabetes mellitus with diabetic chronic kidney disease Morbid obesity Dyslipidemia 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 mellitus jail (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 Diabetic polyneuropathy associated with 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 mellitus Schizo affective schizophrenia Diabetes type 2, uncontrolled Surgical History History of repair of congenital cleft palate Hx of circumcision Family History Father HTN (hypertension) Mother Diabetes Other Mental health problem Social History Household Members: None Housing: Apartment Are you a primary long term care phlebotomist to a significant other at home: No Do you presently have visiting nurse or other home services: Yes Alcohol intake: former Patient Tobacco Use Status: Former Tobacco user Tobacco use type: Cigarette Cigarettes Per Day: 15 Years Smoked: 8 quit 30 years ago e-Cigarette/Vaping Use: Never Used Second Hand Smoke Exposure: No service: No Current occupational status: employed Current occupation: [employer] Cognitive needs: No Hearing needs: No Vision needs: Yes (glasses) Questionnaire PHQ-9 Over the last 2 weeks, how often have you been bothered by any of the following problems? 1. Little interest or pleasure in doing things: several days 2. Feeling down, depressed, or hopeless: several days 3. Trouble falling or staying asleep, or sleeping too much: nearly every day 4. Feeling tired or having little energy: several days 5. Poor appetite or overeating: more than half the days 6. Feeling bad about yourself - or that you are a failure or have let yourself or your family down: not at all 7. Trouble concentrating on things, such as reading the newspaper or watching television: several days 8. Moving or speaking so slowly that other people could have noticed. Or the opposite - being so fidgety or restless that you have been moving around a lot more than usual: not at all 9. Thoughts that you would be better off or of hurting yourself in some way: not at all Total score: 9 Depression Screening Interpretation: Positive Depression Screening Follow-up: Existing condition and In treatment Depression Screening Done: Yes 30721 - PHQ-9 Billing: Yes Source: Developed by Drs. Foster Queen, Shahla Vo, Lambert Sanchez and colleagues, with an educational german from [employer]. Thrive Questionnaire Date Thrive assessed: 08/02/24 I am a: Patient What is your living situation today?: I have a steady place to live Within the past 12 months, did the food you bought not last and you didn't have the money to get more?: Never true Within the past 12 months, did you worry whether your food would run out before you got money to buy more?: Never true Do you have trouble paying for medicines?: No Do you have trouble getting transportation to medical appointments?: No Do you have trouble paying your heating and electricity bill?: No Do you have trouble taking care of your child, family member or friend?: No Do you have trouble with day-to-day activities such as bathing, preparing meals, shopping, managing finances, etc.?: No Are you currently unemployed and looking for a job?: I choose not to answer this question Are you interested in more education?: No Please select the resources that you would like help with: None Currently or been in a relationship where the following occur: No concerns reported THRIVE Score: 0 AUDIT C Alcohol Use Questionnaire (AUDIT-C) 1. How often do you have a drink containing alcohol?: Never 3. How often do you have six or more drinks on one occasion?: Never Total Score: 0 Score Reviewed/Action Taken: Yes KENDRA-7 AMB Questionnaire KENDRA-7 Date KENDRA - 7 assessed: 08/02/24 Feeling nervous, anxious, or on edge: 0 = Not at all Not being able to stop or control worryin = Not at all Worrying too much about different things: 0 = Not at all Trouble relaxin = Not at all Being so restless that it is hard to sit still: 0 = Not at all Becoming easily annoyed or irritable: 0 = Not at all Feeling afraid as if something awful might happen: 0 = Not at all Total KENDRA-7 score (0-4 normal; 5-9 mild; 10-14 moderate; 15-21 severe): 0 Source: Developed by Drs. Foster Queen, Shahla Vo, Lambert Sanchez and colleagues, with an educational german from [employer]. KENDRA-7 Assessment Billing KENDRA-7 Assessment Tool: KENDRA-7 Assessment 54264 Review of Systems Const Details: Const Denies chills, Denies fatigue, Denies fever(s), Denies headache(s) and Denies weakness ENT Denies dizziness and Denies headache(s) Card Denies chest pain, Denies lightheadedness, Denies dyspnea and Denies other (Palpitations) Resp Denies cough, Denies dyspnea, Denies wheezing and Denies other ( shortness of breath) GI Denies abdominal pain, Denies melena, Denies hematochezia, Denies change in bowel habits, Denies dyspepsia and Denies nausea Denies hematuria and Denies dysuria Musc Denies abnormal gait, Denies myalgias, Denies arthralgias, Denies numbness and Denies tingling Skin/Breast Denies rash, Denies unusual bruising and Denies wounds Neuro Denies abnormal gait, Denies dizziness, Denies headache(s), Denies memory loss, Denies numbness, Denies Sensory deficit (Neuro), Denies tingling and Denies weakness Psych Denies anxiety, Denies depression, Denies memory loss Endo Denies cold intolerance, Denies fatigue, Denies heat intolerance, Denies polydipsia and Denies polyuria Aller/Immun Denies wheezing Physical exam (Primary Care) Vital Signs: Last Vital Signs Pulse 94 08/02/24 09:56 BP 116/80 08/02/24 09:56 Pulse Ox 96 12/20/24 09:56 Oxygen Delivery Method Room Air 08/02/24 09:56 BMI result Body Mass Index 34.9 Tobacco/Smoking Status: Tobacco use Status Tobacco use date assessed 08/02/24 08/02/24 10:01 Patient Tobacco Use Status Former Tobacco user 08/02/24 10:01 Tobacco use type Cigarette 08/02/24 10:01 e-Cigarette/Vaping Use Never Used 08/02/24 10:01 PHQ-9: PHQ-9 Score PHQ-9: Total score 9 08/02/24 10:19 Depression Screening Interpretation: Positive Depression Screening Follow-up: Existing condition and In treatment Thrive Assessment: Date of Thrive Assessment Date Thrive assessed 08/02/24 08/02/24 10:01 Currently or been in a relationship where the following occur: No concerns reported Const Other: General: no acute distress and well developed Nutritional Appearance: well nourished Orientation/consciousness: patient oriented x3 HENMT Head: Yes normocephalic and Yes atraumatic Eyes General: appearance normal, both eyes and all related structures Pupils: Equal, round and reactive pupils present EOM: EOMs intact bilaterally Resp Effort & Inspection: normal respiratory effort Auscultation: clear to auscultation bilaterally Cardio Rate: regular rate Rhythm: regular rhythm Heart sounds: S1 normal heart sound present, S2 normal heart sound present, no gallops, no murmurs and no rubs GI Palpation (GI): No Abdominal aortic bruit present, Soft to palpation, nontender, No hepatosplenomegaly, abdomen large and rounded Auscultation: normal bowel sounds General: Yes no CVA tenderness Back/Spine/Pelvis Back: no CVA tenderness Cervical Spine: cervical ROM normal and No Cervical spine tenderness Thoracic/Lumbar Spine: thoraco-lumbar ROM normal, No pain with thoraco-lumbar ROM, No thoracic spinal tenderness and No lumbar spinal tenderness Extrem General: Yes normal to inspection, No edema and No calf tenderness Skin General: warm and dry. Normal skin color. Normal skin turgor Lesions: no lesions Rashes: no rashes Trauma: no lacerations or abrasions Wounds: no wounds Nails: normal Neuro General: patient oriented x3, gait normal and no focal neuro deficit Cranial nerves: Yes Equal, round and reactive pupils present Cognition (Neuro): normal cognition Gait exam (Neuro): Normal gait present Sensory Exam: No Sensory deficit (Neuro) Psych Appearance: grossly normal Affect: normal affect Attitude: cooperative Thought process: Normal thought process present Results Reviewed Results Reviewed: Laboratory Tests 07/19/24 07/19/24 08:54 09:06 WBC 5.9 RBC 5.51 Hgb 16.5 Hct 46.7 Plt Count 123 L Sodium 144 Potassium 3.9 Chloride 108 BUN 14 Creatinine 1.31 Estimated GFR 56 Fasting Glucose 208 H Hemoglobin A1c % 7.5 H AST 41 H ALT 84 H Alkaline Phosphatase 158 H Triglycerides 247 H Cholesterol 162 LDL Cholesterol, Calc 79 HDL Cholesterol 34 L 25-OH Vitamin D Total 45.8 TSH 2.33 Urine Color Yellow Urine Appearance Clear Urine pH 6.0 Ur Specific [place] 1.020 Urine Protein Negative Urine Glucose (UA) >=1000 H Urine Ketones Negative Urine Blood Negative Urine Nitrite Negative Ur Leukocyte Esterase Negative Urine RBC 0-2 Urine WBC 0-5 Urine Creatinine 41.33 Urine Microalbumin < 5.0 Coding Level of Care Code Est Pt Level 4 (03455) Diagnoses Type 2 diabetes mellitus with stage 3 chronic kidney disease, with long-term current use of insulin, unspecified whether stage 3a or 3b CKD E11.22; N18.30; Z79.4 Chronic kidney disease stage: stage 3 (moderate) Chronic kidney disease stage 3 subtype: unspecified whether 3a or 3b Diabetes mellitus half-way insulin use: with parts counterman use Pure hypercholesterolemia E78.00 Stage 3 chronic kidney disease, unspecified whether stage 3a or 3b CKD N18.30 Chronic kidney disease stage 3 subtype: unspecified whether 3a or 3b Chronic idiopathic constipation K59.04 Pulmonary nodule R91.1 Schizoaffective disorder, unspecified type F25.9 Schizoaffective disorder type: unspecified Obesity (BMI 30-39.9) E66.9 Additional Codes KENDRA-7 Assessment Billing - KENDRA-7 Assessment Tool: KENDRA-7 Assessment 87229 ([id number]) PHQ-9 - 73986 - PHQ-9 Billing: Yes ([id number]) Assessment & Plan Assessment & Plan (1) Type 2 diabetes mellitus with diabetic chronic kidney disease: Code(s): E11.22 - Type 2 diabetes mellitus with diabetic chronic kidney disease Category: Medical Qualifiers: Chronic kidney disease stage: stage 3 (moderate) Chronic kidney disease stage 3 subtype: unspecified whether 3a or 3b Diabetes mellitus parts counterman insulin use: with half-way use Qualified Code(s): E11.22 - Type 2 diabetes mellitus with diabetic chronic kidney disease; N18.30 - Chronic kidney disease, stage 3 unspecified; Z79.4 - jail (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 Plan: The patient informed that his A1c increased from 6.6% to 7.5%,fasting glucose went from 160 to 208 mg/dL. He is currently on Tresiba 30 units daily, Metformin 1000mg BID, and empagliflozin 25mg. SDM: Due to the patient fluctuation with his diet endocrinology input is needed at this time. Another referral to endocrine was placed today, one was placed prior in 12/2023. Dietary restrictions were reinforced. The patient to return in 3 months or sooner for any concerns Fasting glucose and a1c ordered to be done prior to this appt. (2) Pure hypercholesterolemia: Code(s): E78.00 - Pure hypercholesterolemia, unspecified Category: Medical Plan: Reinforced a diet low fats/cholesterol-like greasy/fried food, red meat, high fat dairy products, etc Continue atorvastatin 10 mg and the patient wants to continue working on his diet Will recheck labs in 3 months (3) Chronic kidney disease (CKD), stage III (moderate): Code(s): N18.30 - Chronic kidney disease, stage 3 unspecified Category: Medical Qualifiers: Chronic kidney disease stage 3 subtype: unspecified whether 3a or 3b Qualified Code(s): N18.30 - Chronic kidney disease, stage 3 unspecified Plan: His renal function slightly decreased but continues to be stable Will recheck labs in 3 months (4) Chronic idiopathic constipation: Code(s): K59.04 - Chronic idiopathic constipation Category: Medical Plan: He continues on docusate sodium 100mg, MOM 20ml PRN at bedtime, methylcellulose 1000mg TID. He was seen by GI in 06/2024, who recommended to discontinue miralax, senna tab and simethicone. At that visit his reglan was increased to 10mg TID and glycerin supp ordered as well The patient reported that these changes have been better for him. The patient had a CT of abdomen due to suspected blockage, which showed stool burden that resolved after being loaded up with laxatives in the ER. Follow with GI per scheduled Patient to return in office in 3 months or sooner for any concerns (5) Pulmonary nodule: Code(s): R91.1 - Solitary pulmonary nodule Category: Medical Plan: Incidental finding of a pulmonary nodule on abdomen CT Recommendation for FOLLOW CT of the chest in 3-12 months depending on clinical risk A chest ct will be ordered in 6-12 months The patient was made aware, he is denying any respiratory symptoms at this time. (6) Schizoaffective disorder: Code(s): F25.9 - Schizoaffective disorder, unspecified Category: Medical Qualifiers: Schizoaffective disorder type: unspecified Qualified Code(s): F25.9 - Schizoaffective disorder, unspecified Plan: Continues on clozapine 100mg TID AND benztropine 0.5mg. Follow up with Psychiatry as needed/scheduled (7) Obesity (BMI 30-39.9): Code(s): E66.9 - Obesity, unspecified Category: Medical Plan: Diet/exercise discussed in detail Encouraged to exercise for at least 30 minutes a day/5 days a week Healthy eating discussed. Encouraged to eat fruits/vegetables, protein-fish/baked chicken, and to avoid salty/fried foods, sweets, caffeine and carbohydrates. Encouraged to increase water intake 6-8 glasses a day Plan Follow up in 3 months Orders: Orders Complete Blood Count Auto Diff 3 Months E11.22 - Type 2 diabetes mellitus with diabetic chronic kidney disease, E66.9 - Obesity, unspecified, E78.00 - Pure hypercholesterolemia, unspecified, N18.30 - Chronic kidney disease, stage 3 unspecified, Z79.4 - bed bug exterminator (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 Comprehensive [place]. Panel Fast 3 Months E11.22 - Type 2 diabetes mellitus with diabetic chronic kidney disease, E66.9 - Obesity, unspecified, E78.00 - Pure hypercholesterolemia, unspecified, N18.30 - Chronic kidney disease, stage 3 unspecified, Z79.4 - jail (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 TSH reflex Free T4 3 Months E11.22 - Type 2 diabetes mellitus with diabetic chronic kidney disease, E66.9 - Obesity, unspecified, E78.00 - Pure hypercholesterolemia, unspecified, N18.30 - Chronic kidney disease, stage 3 unspecified, Z79.4 - jail (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 Vitamin D 25-OH Total 3 Months E11.22 - Type 2 diabetes mellitus with diabetic chronic kidney disease, E66.9 - Obesity, unspecified, E78.00 - Pure hypercholesterolemia, unspecified, N18.30 - Chronic kidney disease, stage 3 unspecified, Z79.4 - jail (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 Hemoglobin A1c 3 Months E11.22 - Type 2 diabetes mellitus with diabetic chronic kidney disease, E66.9 - Obesity, unspecified, E78.00 - Pure hypercholesterolemia, unspecified, N18.30 - Chronic kidney disease, stage 3 unspecified, Z79.4 - bed bug exterminator (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 Glucose Fasting 3 Months E11.22 - Type 2 diabetes mellitus with diabetic chronic kidney disease, E66.9 - Obesity, unspecified, E78.00 - Pure hypercholesterolemia, unspecified, N18.30 - Chronic kidney disease, stage 3 unspecified, Z79.4 - jail (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 UA CC w/rflx Micro + Cult 3 Months E11.22 - Type 2 diabetes mellitus with diabetic chronic kidney disease, E66.9 - Obesity, unspecified, E78.00 - Pure hypercholesterolemia, unspecified, N18.30 - Chronic kidney disease, stage 3 unspecified, Z79.4 - jail (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 Microalbumin, Random (w Creat) 3 Months E11. - Type 2 diabetes mellitus with diabetic chronic kidney disease, E66.9 - Obesity, unspecified, E78.00 - Pure hypercholesterolemia, unspecified, N18.30 - Chronic kidney disease, stage 3 unspecified, Z79.4 - jail (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 Lipid Panel 3 Months E11.22 - Type 2 diabetes mellitus with diabetic chronic kidney disease, E66.9 - Obesity, unspecified, E78.00 - Pure hypercholesterolemia, unspecified, N18.30 - Chronic kidney disease, stage 3 unspecified, Z79.4 - jail (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 Referrals Endocrinology Referral E11.22 - Type 2 diabetes mellitus with diabetic chronic kidney disease, N18.30 - Chronic kidney disease, stage 3 unspecified, Z79.4 - jail (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
== END 2024-08-02 10:32 | disposition home or self-care (01) ==
PROVIDERS: PCP Internal Medicine
DX: E11.22 Type 2 diabetes mellitus with diabetic chronic kidney disease (principal); N18.30 Chronic kidney disease, stage 3 unspecified; Z79.4 Long term (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; F25.9 Schizoaffective disorder, unspecified; E78.00 Pure hypercholesterolemia, unspecified; K59.04 Chronic idiopathic constipation; R91.1 Solitary pulmonary nodule; E66.9 Obesity, unspecified

== ENCOUNTER → 2024-08-02 09:47 | Outpatient (BNVA) | payer OTHER, SELFPAY | PROVIDERS: PCP Internal Medicine | DX: E11.22 Type 2 diabetes mellitus with diabetic chronic kidney disease (principal); N18.30 Chronic kidney disease, stage 3 unspecified; E78.00 Pure hypercholesterolemia, unspecified; K59.04 Chronic idiopathic constipation; R91.1 Solitary pulmonary nodule; F25.9 Schizoaffective disorder, unspecified; E66.9 Obesity, unspecified; Z79.4 Long term (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 | CPT/HCPCS: 96127; 99212 ==

== ENCOUNTER 2024-08-08 08:18 | Outpatient (REF) | payer OTHER, SELFPAY ==
--- OUTSIDE RECORDS SUMMARY | 2024-08-08 08:32 | XMS_ITS ---
Author Organization [facility] Address [address] [place] [id number] Care Team Providers Care Site Engineer Name Role Phone Manny Garcia MDneth Primary Care Provider Unava ilTu [place] Unavailable [phone] REASON FOR VISIT Heel pain Encounters Encounter Location Date Provider Diagnosis [address] [address] 04/17/2024 Tu Pierre Plan Of Treatment Next Appt Details Provider Name:Tu Pierre , 08/30/2024 11:00:00 AM, [address] [place], [address], Progress Notes * Mike BAIRDDOB:[birth year] (63 yo M)Acc No.[id number]:04/17/2024 Patient:?Mike Baird :1960???Age:63 Y???Sex:Male Address:[address] [place], [address] * true * Date:? Generated for Printi israel/Garrison/eTransmitting on:?08/08/2024 08:32 AM EST
--- OUTSIDE RECORDS SUMMARY | 2024-08-08 08:32 | XMS_ITS ---
Author Organization [facility] Address [address] [place] [address] Care Team Providers Care Grapple Yarder Operator Name Role Phone New Gacria MDh Primary Care Provider Tu Ch Unavailable [phone] Allergies No Known Allergies REASON FOR VISIT [...] Ordered Date Performed Result Body Sit e 31193-XJEQMOI NAIL, 6 OR MORE 06/21/2024 N/A 79850-YKWR SKIN LESIONS, 2 TO 4 06/21/2024 N/A Encounters Encounter Location Date Provider Diagnosis [facility] [address] [place] [address] 06/21/2024 Tu Pierre Tinea unguium B35.1 ; [...] Treatment Pending Test Test Name Order Date 98418-KEUNQDT NAIL, 6 OR MORE 06/21/2024 51550-FXKJ SKIN LESIONS, 2 TO 4 06/21/20 24 Next Appt Details Follow Up: 2 Months, Reason: Provider Name:Tu Pierre , 08/30/2024 11:00:00 AM, [address] [place] [address], [address], Procedure Notes * Category Sub-Category Detail Notes [...] use of a nail nipper and/or dremel-type flat grinder operator, to a more viable healthy nail plate or bed tissue 6-10. Silver nitrate used for any petechial bleeding as necessary. Definitive antifungal treatment options have been reviewed and discussed with the patient. The patient chooses, no pharmaceutical tx - 27353 Keratoma Treatment Parring or Cutting o f Benign Hyperkeratotic Lesion(s) (-56) 2-4 Lesions - The Benign hyperkeratotic lesions, as described in exam, were pared, and/or cut utilizing a sterile 15 blade, tissue nippers, and/or dremel - 12409 Progress Notes * Kashmir BAIRD:10/08 (63 yo M)Acc No.[id number]:06/21/2024 Progress Note Patient:?Mike Baird Provider:?Tu Pierre DPM :1960???Age:63 Y???Sex:Male Taurus e:06/21/2024 Address:[address] [place] [address] Dr Hernesto orozco, [id number] Pcp:Luis Manuel Garcia MD Subjective: * Chief [...] Treatment: 2.?Type 2 diabetes mellitus without complication?Procedure: 92972-YXCK SKIN LESIONS, 2 TO 4 * Procedures:?Debride [...] use of a nail nipper and/or dremel-type flat grinder operator, to a more viable healthy nail plate or bed tissue 6-10. Silver nitrate used for any petechial bleeding as necessary. Definitive antifungal treatment options have been reviewed and discussed with the patient. The patient chooses, no pharmaceutical tx - 98066.?Keratoma Treatment:?Parring or Cutting of Benign Hyperkeratotic Lesion(s)?(-56) 2-4 Lesions - The Benign hyperkeratotic lesions, as described in exam, were pared, and/or cut utilizing a sterile 15 blade, tissue nippers, and/or dremel - 71480.? * Procedure Codes:?27519 DEBRI DE NAIL, 6 OR MORE, Modifiers: XS 65480 TRIM SKIN LESIONS, 2 TO 4, Modifiers: [...] Pierre DPM Date:?2023 Generated for Ruthy wood/Garrison/Harvey on:?08/08/2024 08:31 AM EST History and Physical Notes * [...]
--- OUTSIDE RECORDS SUMMARY | 2024-08-08 08:33 | XMS_ITS ---
Author Organization [facility] Address [address] [place] [address] Care Team Providers Care Blending Machine Operator Name Role Phone New Garcia MDh Primary Care Provider Tu Ch Unavailable [phone] Allergies No Known Allergies REASON FOR VISIT [...] Problem Type 2 diabetes mellitus without complication (585942317) Type 2 diabetes mellitus without complication (E11.9) Active confirmed Vital Signs Height 6 ft in 03/08/2024 Weight 270 lbs 03/08/2024 BMI 36.61 kg/m2 03/08/2024 Procedures Procedure Date Ordered Date Performed Result Body Sit e 19378-LNLAHSW NAIL, 6 OR MORE 03/08/2024 N/A 60747-Qmmsvwod Plate 03/08/2024 N/A 58595-TRRP SKIN LESIONS, 2 TO 4 03/08/2024 N/A Encounters Encounter Location Date Provider Diagnosis [facility] [address] [place] [address] 03/08/2024 Tu iPerre Tinea unguium B35.1 ; Pain in right [...] X ray : Foot, right 3V 03/08/2024 37835-QBWQDSB NAIL, 6 OR MORE 03/08/2024 84454-Eimeupvb Plate 03/08/2024 40235-MQTH SKIN LESIONS, 2 TO 4 03/08/20 24 Next Appt Details Follow Up: 2 Months, Reason: Provider Name:Tu Pierre , 08/30/2024 11:00:00 AM, [address] [place], [address], Procedure Notes * Category Sub-Category Detail Notes [...] Motrin was recommended for pain or discomfort (62966) , DIABETES: Pt was advised as to [...] as necessary. Patient chooses, no pharmaceutical tx (33930) Keratoma Treatment Parring or Cutting o f Benign Hyperkeratotic Lesion(s) 10466 ( 2-4 Lesions ) - The Benign hyperkeratotic lesions, as described above were pared, and/or cut utilizing a sterile 15 blade, tissue nippers, and/or dremel Progress Notes * Mike BAIRDDOB:[birth year] (63 yo M)Acc No.[id number]:03/08/2024 Progress Notes Patient:?Mike Baird Provider:?Tu Pierre DPM :1960???Age:63 Y???Sex:Male Taurus e:03/08/2024 Address:[address] [place] [address] , Hernesto orozco, [facility] Pcp:Luis Manuel Garcia MD Subjective: * Chief [...] 3V 4.?Type 2 diabetes mellitus without complication?Procedure: 00630-BVST SKIN LESIONS, 2 TO 4 5.?Ingrown nail?Procedure: 24285-Vuqetoaw Plate * Procedures:?Debride Nail 6-10:?Nail debridement?Nail debridement performed extensively to reduce/remove overall nail length, girth, thickness, subungual debris, and necrotic tissue, by manual and electrical means through the use of a nail nipper and/or dremel, to more viable healthy nail plate or bed tissue 1-5. Silver nitrate used for any petechial bleeding as necessary. Patient chooses, no pharmaceutical tx (27401).?Keratoma Treatment:?Parring or Cutting of Benign Hyperkeratotic Lesion(s)?16808 ( 2-4 Lesions ) - The Benign [...] Motrin was recommended for pain or discomfort (15629) , DIABETES: Pt was advised as to the risk of delayed or nonhealing due to diabetes. Pt is to call the office with any questions, concerns, or complications.? * Procedure Codes:?44415 DEBRI DE NAIL, 6 OR MORE, Modifiers: XS 68452 Avulsion Plate, Modifiers: XS , [id number] X-RAY EXAM OF RIGHT FOOT 3V, Modifiers: 26 , [id number] TRIM SKIN LESIONS, 2 TO 4, Modifiers: [...] Interfil injection therapy, as well as surgical Mosier/Calcanectomy- tendon debridement surgical procedures if needed. Recommendations [...] painful condition.?Podiatric Surgery Counseling:?Surgical procedures such as Mosier vs Exostectomy with Partial calcanectomy and Achilles [...] Pierre DPM Date:?2023 Generated for Ruthy wood/Garrison/Modestoitting on:?08/08/2024 08:32 AM EST History and Physical Notes * [...]
--- OUTSIDE RECORDS SUMMARY | 2024-08-08 08:33 | XMS_ITS ---
Author Organization [facility] Address [address] [place] [address] Care Team Providers Care Chief School Finance Officer Name Role Phone Luis Manuel Garcia Primary Care Provider Debbie Pedro Unavailable [phone] Genesis Walton Unavailable [phone] REASON FOR VISIT Quarterly Wellness Visit MEDICATIONS [...] Once a day Active Icy Hot Medicated [place] 16 % 1 application as needed Externally [...] 1 tablet Orally Once a day Active FotoSwipeTouch Ultra Test Strips - As Directed To Skin Three times a day for 30 days Type 2 Diabetes Mellitus with unspecified complications - E11.8 Active Fiber Therapy 500 MG 2 tablets with a full glass of water as needed Orally three times a day Active F[employer]SwipeToXterprise Solutions Ultra 2 w/Device as directed for 99 [...] 01/25/2024 Encounters Encounter Location Date Provider Diagnosis [facility] Primary Care - [address] [address] 01/25/2024 Genesis Walton Type 2 diabetes mellitus [...] Onc e a day Icy Hot Medicated [place]ridge 16 % 1 application as needed Externally [...] Next Appt Details Follow Up: 3 Months,prn, Lytle son: Quarterly Wellness Visit Progress Notes * [...]
--- OUTSIDE RECORDS SUMMARY | 2024-08-08 08:33 | XMS_ITS | Patient Health Record ---
Author Organization [facility] [place] [address] Care Team Providers Care Goat Farmer Name Role Phone Luis Manuel Garcia Primary Care Provider Debbie Pedro Unavailable [phone] Clinical, Operations Unavailable Unavailable Genesis Walton Unavailable [phone] ALLERGIES No Known Allergies RESULTS Component Value [...] 1 tablet Orally Once a day Active LiveActionTouch Ultra 2 w/Device as directed for 99 [...] Day - PRN Active Icy Hot Medicated [place] 16 % 1 application as needed Externally [...] injectable, MDCK, preservative free Unknown 04/17/2024 Administered [employer] ([employer]) COVID-19 Vaccine IM Unknown 11/18/2020 Ad ministered Pfizer-BioOff Track Planet COVID-19 Vac cine 12+ IM Unknown 12/09/2021 Administered Pfizer-BioNTB5M.COM COVID-19 Vaccine IM Unknown 07/22/2021 Administered SOCIAL [...] Notes Problem Presbyopia (H52.4) Active confirmed 412 49630 Problem Hypertension (I10) Active confirmed 383 05938 Problem Type 2 diabetes mellitus with unspecified complications (E11.8) Active confirmed 89937116 Problem Schizoaffective disorder (F25.9) Active confirmed 67408920 Problem Pain in right knee (M25.561) Active confirmed 3257396547 Problem Other chronic pain (G89.29) Active confirmed 04621306 Problem Hypertensive chronic kidney disease with stage 1 through stage 4 chronic kidney disease, or unspecified chronic kidney disease (I12.9) Active confirmed 554336137818607 Problem Schizoaffective disorder, bipolar type (F25.0) Active confirmed 44032041 Problem Morbid obesity with BMI of 40.0-44.9, adult (E66.01) Active confirmed 970913245 Problem BPH (benign prostatic hyperplasia) (N40.0) Active confirmed Benign prostati c hyperplasia (123935678) Problem Pain in left knee (M25.562) Active confirmed 839425802179164 Problem Anxiety (F41.9) Active confirmed 514687 02 Problem Polyneuropathy (G62.9) Active confirmed 20686623 Problem Corns and callosities (L84) Active confirmed 096906070 Problem Myopia, bilateral (H52.13) Active confirmed 695905760106692 Problem Bilateral primary osteoarthritis of knee (M17.0) Active confirmed 016574916 Problem Pain in left foot (M79.672) Active confirmed 903242359270318 Problem Functional dyspepsia (K30) Active confirmed 1721597 Problem Melena (K92.1) Active confirmed 3865727 Problem Pain in right foot (M79.671) Active confirmed 97452937861575095 Problem Age-related nuclear cataract, bilateral (H25.13) Active confirmed 655419642233673 Problem Dermatochalasis of right upper eyelid (H02.831) Active confirmed 133343386679508 Problem Left anterior fascicular block (I44.4) Active confirmed 92882588 Problem Hypotension, unspecified hypotension type (I95.9) Active confirmed 75643767 Problem Erectile dysfunction, unspecified erectile dysfunction type (N52.9) Active confirmed 612542629 Problem Anxiety disorder, unspecified type (F41.9) Active confirmed 889152470 Problem Hyperlipidemia, unspecified hyperlipidemia type (E78.5) Active confirmed 73571630 Problem Chest pain, unspecified type (R07.9) Active confirmed 20969013 Problem Chronic idiopathic constipation (K59.04) Active confirmed 16922892 Problem Bilateral hearing loss, unspecified hearing loss type (H91.93) Active confirmed 88827587 Problem Noninfectious gastroenteritis, unspecified type (K52.9) Active confirmed 68750428 Problem Hepatic cirrhosis, unspecified hepatic cirrhosis type, unspecified whether ascites present (K74.60) Active confirmed 04912906 Problem Stage 3 chronic kidney disease, unspecified whether stage 3a or 3b CKD (N18.30) Active confirmed 005485451 Problem Lumbar pain (M54.50) Active confirmed 380165746 VITAL SIGNS Heart Rate 82 /min 01/25/2024 Temperature 97.2 degrees Fahrenheit 01/25/2024 Respiratory Rate 16 /min 01/25/2024 Oximetry 99 % 01/25/2024 Blood pressure diastolic 86 mm Hg 01/25/2024 Weight-kg 120.02 kg 10/16/2023 Pain: 1 in lower back. APC's thermometer not working at visit, unable to check temp. Blood pressure systolic 110 mm Hg 01/25/2024 Weight 264.6 lbs 10/16/2023 Pain: 1 in lower back. APC's thermometer not working at visit, unable to check temp. Encounters Encounter Location Date Provider Diagnosis [address] [address] 10/23/2023 Genesis [facility] ([facility]) [address] [address] 10/05/2023 Operations Clinical Type 2 diabetes mellitus [...] disease, or unspecified chronic kidney disease I12.[address] [address] 10/16/2023 Genesis [facility] Type 2 diabetes mellitus with unspecified complications E11.8 ; Lumbar pain M54.50 ; Pain in left knee M25.562 ; Pain in right knee M25.561 ; Schizoaffective disorder, bipolar type F25.0 ; Anxiety disorder, unspecified type F41.9 and Bilateral hearing loss, unspecified hearing loss type H91.[address] [address] 01/25/2024 Genesis [facility] Type 2 diabetes mellitus with [...] Insured Coverage Start Date Coverage End Date [address] [phone] [id number] BASILIA BAIRD Self - patient is the insured [address] [phone] [id number] BASILIA BAIRD Self - patient is the insured 3 8 MEDICAL (GENERAL) HISTORY Medical History History ICD Code DM II (Polyneuropathy) HTN Schizoaffective (Bipolar Type) Morbid Obesity BPH Constipation OA Chronic Pain Anxiety Bilateral Hearing Loss Hepatic Cirrhosis HLD Hospitalization History Reason Date(Month/Year) ED: ABD Pain, Constipation February 2023 [facility] ED: Hyperglycemia 01/04/23
--- OUTSIDE RECORDS SUMMARY | 2024-08-08 08:33 | XMS_ITS ---
Author Organization [facility] [place] [address] Care Team Providers Care Cash Posting Clerk Name Role Phone Luis Manuel Garcia Primary Care Provider Unavaila Debbie Diallo Unavailable [phone] Genesis Walton Unavailable [phone] REASON FOR VISIT Quarterly Wellness Visit Encounters Encounter Location Date Provider Diagnosis [facility] Primary Care - [address] [address] 10/23/2023 Genesis Walton PLAN OF TREATMENT No Information
--- OUTSIDE RECORDS SUMMARY | 2024-08-08 08:33 | XMS_ITS ---
Author Organization [facility] Address [address] [place] [address] Care Team Providers Care Administrative Law Judge Name Role Phone Luis Manuel Garcia Primary Care Provider Debbie Pedro Unavailable [phone] Genesis Walton Unavailable [phone] ALLERGIES No Known Allergies REASON FOR VISIT Wellness Visit MEDICATIONS Medication SIG (Take, Route, Frequency, Duration) Notes Start Date End Date Status Benztropine Mesylate 0.5 MG 1 tablet Orally Twice a Day Active Icy Hot Medicated [place] 16 % 1 application as needed Externally [...] Location Date Provider Diagnosis [facility] Primary Care [address] [address] 10/16/2023 Genesis Anton Type 2 diabetes mellitus [...] Orally Twice a Day Icy Hot Medicated [place] 16 % 1 application as needed Externally [...]
--- OUTSIDE RECORDS SUMMARY | 2024-08-08 08:33 | XMS_ITS | Patient Health Record ---
Author Organization [facility] Address [address] [place] [address] Care Team Providers Care Manager Erp Name Role Phone Jose RENAE, Luis Manuel Primary Care Provider Tu Ch Unavailable [phone] Allergies No Known Allergies Reason For Referral [...] Problem Type 2 diabetes mellitus without complication (034172476) Type 2 diabetes mellitus without complication (E11.9) Active confirmed Vital Signs Height 6 ft in 06/21/2024 Weight 270 lbs 06/21/2024 BMI 36.61 kg/m2 06/21/2024 Procedures Procedure Date Ordered Date Performed Result Body Sit e 49571-CXZCFEZ NAIL, 6 OR MORE 03/08/2024 N/A 22664-Uvsbzqyn Plate 03/08/2024 N/A 37640-ARWW SKIN LESIONS, 2 TO 4 03/08/2024 N/A 89361-SBZZPAU NAIL, 6 OR MORE 06/21/2024 N/A 62219-LNEQ SKIN LESIONS, 2 TO 4 06/21/2024 N/A Encounters Encounter Location Date Provider Diagnosis [facility] [address] [place] [address] 03/08/2024 Tu Pierre Tinea unguium B35.1 ; [...] without complication E11.9 and Ingrown nail L60.[address] [address] 06/21/2024 Tu Pierre Tinea unguium B35.1 ; Pain in right toe(s) M79.674 ; Pain in left toe(s) M79.675 ; Achilles tendinitis of right lower extremity M76.61 and Type 2 diabetes mellitus without complication E11.[address] [address] 01/04/2024 Tu Pierre [address] [address] 04/17/2024 Tu Pierre Assessments Encounter Date Diagnosis [...] X ray : Foot, right 3V 03/08/2024 60084-IPUSXCY NAIL, 6 OR MORE 03/08/2024 42021-SUHQQRX NAIL, 6 OR MORE 06/21/2024 57361-Jfifvxep Plate 03/08/2024 87971-JENB SKIN LESIONS, 2 TO 4 03/08/20 73803-RXOD SKIN LESIONS, 2 TO 4 06/21/20 Next Appt Details Provider Name:Tu Pierre , 08/30/2024 11:00:00 AM, [address] [place] [address], [phone], Insurance Providers Payer Name Payer Address Payer Phone Subscriber Number Group Number Insured Name Patient Relationship to Insured Coverage Start Date Coverage End Date [facility] [employer] Claims [address] [place] [phone] [id number] Mike Cornejo Self - patient is the insured Medical (General) History Medical History History ICD Code Diabetic Surgical History Surgery Date(Month/Year)
[2024-08-08 08:54] LABS: MANUAL DIFF FLAG NO
[2024-08-08 09:17] LABS: Basophils Percent Auto 0.2 % (0-2); Hematocrit 45.2 % (42.0-52.0); Hemoglobin 15.9 g/dl (14.0-18.0); Imm Gran Abs Auto 0.06 X10*3/uL (0.00-0.03); Imm Gran Pct Auto 0.9 % (0.0-0.4); Lymphocytes Absolute Auto 1.4 X10*3/uL (1.2-4.9); Lymphocytes Percent Auto 22.1 % (20-40); Mean Corpuscular HGB Conc 35.2 g/dl (31.0-36.0); Mean Corpuscular Hemoglobin 29.8 pg (27.0-33.0); Mean Corpuscular Volume 84.8 fL (80.0-98.0); Mean Platelet Volume 10.5 fL (9.4-12.4); Monocytes Absolute Auto 0.5 X10*3/uL (0.1-1.2); Monocytes Percent Auto 7.8 % (2-11); Neutrophils Absolute Auto 4.4 x10*3/uL (2.0-8.3); Platelet Count 111 X10*3/uL (160-400); Red Blood Count 5.33 X10*6/uL (4.60-5.80); Red Cell Distribution Width 12.9 % (11.0-16.0); White Blood Count 6.4 X10*3/uL (4.8-10.8)
== END 2024-08-08 08:19 | disposition home or self-care (01) ==
LOC: HO.LAB 08:18
PROVIDERS: PCP Internal Medicine; Visit Provider Psychiatry & Neurology Psychiatry
DX: F25.0 Schizoaffective disorder, bipolar type (principal); Z79.899 Other long term (current) drug therapy
CPT/HCPCS: 36415; 85025

== ENCOUNTER 2024-09-04 08:56 | Outpatient (REF) | payer OTHER, SELFPAY ==
[2024-09-04 09:21] LABS: MANUAL DIFF FLAG NO
[2024-09-04 09:38] LABS: Hematocrit 46.5 % (42.0-52.0); Hemoglobin 16.4 g/dl (14.0-18.0); Imm Gran Abs Auto 0.02 X10*3/uL (0.00-0.03); Imm Gran Pct Auto 0.3 % (0.0-0.4); Lymphocytes Absolute Auto 1.3 X10*3/uL (1.2-4.9); Lymphocytes Percent Auto 19.5 % (20-40); Mean Corpuscular HGB Conc 35.3 g/dl (31.0-36.0); Mean Corpuscular Hemoglobin 29.5 pg (27.0-33.0); Mean Corpuscular Volume 83.8 fL (80.0-98.0); Mean Platelet Volume 10.2 fL (9.4-12.4); Monocytes Absolute Auto 0.4 X10*3/uL (0.1-1.2); Monocytes Percent Auto 6.1 % (2-11); Neutrophils Absolute Auto 4.8 x10*3/uL (2.0-8.3); Neutrophils Percent Auto 74.1 % (45-73); Platelet Count 119 X10*3/uL (160-400); Red Blood Count 5.55 X10*6/uL (4.60-5.80); Red Cell Distribution Width 12.5 % (11.0-16.0); White Blood Count 6.5 X10*3/uL (4.8-10.8)
== END 2024-09-04 08:57 | disposition home or self-care (01) ==
LOC: HO.LABR 08:56
PROVIDERS: PCP Internal Medicine; Visit Provider Psychiatry & Neurology Psychiatry
DX: F25.0 Schizoaffective disorder, bipolar type (principal)
CPT/HCPCS: 36415; 85025

== ENCOUNTER 2024-09-08 08:42 | Emergency (ER) | payer OTHER, SELFPAY ==
--- NOTE | ~2024-09-08 | XR_ITS ---
CLINICAL HISTORY: constipation 1 view abdomen Comparison: CR/NH/SR - XR KUB - 07/16/24 10:03 EST CR/SR - XR KUB - 06/25/24 15:54 EST CR/NH/SR - XR KUB - 04/21/24 10:05 EDT CR/SR - XR KUB - 03/07/24 15:18 EDT Findings: Exam limited by habitus. Extensive stool burden as on currently appearing greater in the descending colon. Less pronounced transverse colon distention compared to most recent prior. No apparent transition zone with formed stool throughout including rectal vault. No appreciable stomach or small bowel dilatation. Impression: Continued excessively large stool burden throughout although degree of colon distention is less pronounced compared to most recent prior. This document has been electronically signed by: Bulmaro Mathew MD on 09/08/2024 11:09:43
[2024-09-08 08:51] VITALS: BP 101/75; PULSE 85; RESP 16; TEMP 36.9; O2SAT 97; BMI 35.6
--- NOTE | 2024-09-08 15:23 | ED.GENADULT ---
HPI - General Adult General Chief complaint: General Medical Stated complaint: Constipation Time Seen by Provider: 09/08/24 15:25 Source: patient Mode of arrival: ambulatory Limitations: no limitations History of Present Illness ED Provider: Kathe Holt NP HPI narrative: Patient is a 63-year-old male who presents emergency department for evaluation of acute on chronic constipation. He states that despite his increased fiber in his diet, adequate fluid intake, daily fiber pills, and Linzess he continues to have significant constipation. He reports over the past 4-5 days he has not been able to pass a bowel movement. He is able to pass gas. He has no associated abdominal pain, no nausea, no vomiting. He feels urge to pass his bowels but simply can not. Reports that this has happened in the past and he benefits well from having a soapsuds enema in addition to lactulose Related Data Home Medications ?Medication ?Instructions ?Recorded ?Confirmed hydroxyzine pamoate 50 mg capsule 50 mg PO TID PRN Anxiety 09/18/20 08/02/24 benztropine 0.5 mg tablet 0.5 mg PO BID 04/29/22 08/02/24 L.acidoph, paracasei,B. lactis 10 cell PO 05/12/22 08/02/24 billion cell capsule (Digestive Advantage Advanced Probiotic) clozapine 100 mg tablet 100 mg PO TID 05/12/22 08/02/24 Previous Rx's ?Medication ?Instructions ?Recorded polyethylene glycol 3350 17 gram 17 g PO BID #30 ea 08/12/22 oral powder packet (Miralax) blood-glucose meter (FreeStyle #1 ea 03/27/23 Lite Meter kit) phenol 1.5 %-glycerin 33 % mucosal 1 spray mucous membrane Q6-8H PRN 09/03/23 spray (Chloraseptic Max Sore sore throat #118 mL Throat) cholecalciferol (vitamin D3) 25 25 mcg PO DAILY #90 caps 12/21/23 mcg (1,000 unit) capsule ketoconazole 2 % topical cream 1 appl topical DAILY #30 grams 01/01/24 bisacodyl 5 mg tablet,delayed 10 mg (2 x 5 mg) PO BID #90 tabs 01/02/24 release acetaminophen 500 mg tablet 1,000 mg (2 x 500 mg) PO Q6H PRN 01/04/24 pain #30 tabs cyclobenzaprine 10 mg tablet 10 mg PO DAILY PRN muscle spasm 01/04/24 #10 tabs lidocaine 5 % topical patch 1 patch topical DAILY #15 ea 01/04/24 linaclotide 290 mcg capsule 290 mcg PO QAM 30 days #30 caps 02/08/24 (Linzess) psyllium seed (sugar) oral powder 1 tsp PO BID #1,254 grams 03/07/24 (Metamucil (sugar) oral powder) pen needle, diabetic 29 gauge x #100 ea 04/24/24 1/2 (BD Ultra-Fine Original Pen Needle) gabapentin 300 mg capsule 300 mg PO BEDTIME 90 days #90 caps 04/30/24 metformin 500 mg tablet 1,000 mg (2 x 500 mg) PO BID 90 05/01/24 days #360 tabs sildenafil 50 mg tablet 50 mg PO DAILY PRN sexual activity 05/03/24 #10 tabs lancets 28 gauge (FreeStyle #100 ea 05/08/24 Lancets) empagliflozin 25 mg tablet 25 mg PO QAM #30 tabs 06/05/24 (Jardiance) blood sugar diagnostic (FreeStyle #100 ea 06/15/24 Lite Strips) carbamide peroxide 6.5 % ear drops 5 drp otic (ear) left DAILY 4 days 06/24/24 (Debrox) #15 mL glycerin (adult) 2 supp MI .after shower 06/28/24 constipation #25 ea metoclopramide HCl 10 mg tablet 10 mg PO TID #90 tabs 06/28/24 (Reglan) guaifenesin 200 mg/5 mL oral liquid 400 mg (10 mL) PO Q6H PRN cough 07/01/24 #118 mL magnesium hydroxide 400 mg/5 mL 20 ml PO BEDTIME PRN constipation 07/01/24 oral suspension (Milk of Magnesia) #3,780 mL atorvastatin 10 mg tablet 10 mg PO DAILY #90 tabs 07/05/24 furosemide 20 mg tablet 20 mg PO DAILY #90 tabs 07/10/24 Tresiba FlexTouch U-200 200 30 unit (0.15 mL) subcut DAILY 90 07/15/24 unit/mL (3 mL) subcutaneous pen days #9 mL (insulin degludec) flash glucose scanning reader #1 ea 07/15/24 (FreeStyle Jody 2 [place]) ibuprofen 800 mg tablet 800 mg PO Q8H PRN for pain 30 days 07/15/24 #90 tabs blood-glucose meter (FreeStyle #1 ea 07/18/24 Lite Meter kit) methylcellulose (laxative) 500 mg 1,000 mg (2 x 500 mg) PO TID #180 08/29/24 tablet (Fiber Therapy tabs (methylcellulose)) docusate sodium 100 mg capsule 100 mg PO BID #60 caps 09/02/24 Allergies Allergy/AdvReac Type Severity Reaction Status Date / Time No Known Allergies Allergy Verified 09/08/24 08:56 [No Known Allergies*] Review of Systems Review of Systems: Yes all other systems are reviewed and are negative [facility] Past Medical History Attestation statement: The following information was validated with the patient. Source: old records reviewed Medical History Impacted cerumen, right ear Acute diarrhea Pain in both feet Calcaneal spur of right foot Achilles tendinitis Callus of foot Right hand pain Abdominal bloating Vertigo Calcaneal spur Colon cancer screening COVID-19 Pre-op examination Elevated LFTs Encounter for Medicare annual wellness exam Bowel obstruction Melena Knee pain, bilateral Gastroenteritis Healed wound Chronic idiopathic constipation Chronic idiopathic constipation Hospital discharge follow-up Knee osteoarthritis Obesity (BMI 30-39.9) Schizoaffective disorder Pure hypercholesterolemia Benign essential hypertension Chronic kidney disease (CKD), stage III (moderate) Type 2 diabetes mellitus with diabetic chronic kidney disease Morbid obesity Dyslipidemia 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 Diabetic polyneuropathy associated with 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 mellitus Schizo affective schizophrenia Diabetes type 2, uncontrolled Surgical History History of repair of congenital cleft palate Hx of circumcision Family History Family History Father HTN (hypertension) Mother Diabetes Other Mental health problem Social History Social History Household Members: None Housing: Apartment Are you a primary senior resident care director to a significant other at home: No Do you presently have visiting nurse or other home services: Yes Alcohol intake: former Patient Tobacco Use Status: Former Tobacco user Tobacco use type: Cigarette Cigarettes Per Day: 15 Years Smoked: 8 quit 30 years ago e-Cigarette/Vaping Use: Never Used Second Hand Smoke Exposure: No Advance Directives: No Advance Directives Information Provided: No Do you have a plan to hurt others: No Plan service: No Current occupational status: employed Current occupation: [employer] Cognitive needs: No Hearing needs: No Vision needs: Yes (glasses) Physical Exam ED Vital Signs: Vital Signs - 24 hr 09/08/24 08:51 09/08/24 15:24 09/08/24 18:19 Temperature 98.4 F 97.1 F 96.8 F Pulse Rate 85 87 84 Respiratory Rate 16 16 16 Blood Pressure 101/75 115/84 141/92 H Pulse Oximetry 97 96 98 Oxygen Delivery Method Room Air Room Air Room Air BMI result Body Mass Index 35.6 Course Course Course Narrative: This is a rapid medical exam. Deferred additional HPI, ROS, PE to primary provider. 63 yo male with history of chronic constipation here with reports of constipation. Feels he has an impaction and needs an enema. KUB shows large stool burden. KAROLINA Holloway APRN Reevaluation(s) Reevaluation #1: Successful large bowel movement. Stable for discharge home Time: 18:53 Medications Administered Discontinued Medications Generic Name Dose Route Start Last Admin Trade Name Freq PRN Reason Stop Dose Admin Lactulose 40 gm 09/08/24 18:20 09/08/24 19:05 Lactulose 20 Gm/30 Ml Solution PO 09/08/24 18:21 40 gm ONCE ONE Administration Medical Decision Making Medical Decision Making [facility] Narrative: Patient is a 63-year-old male with past medical history of Hypertension, hypercholesterolemia, CKD, DM, schizoaffective disorder, chronic idiopathic constipation presenting to the emergency department for evaluation of constipation over the past 45 days as per HPI. Abdominal examination is entirely benign. He is passing flatus. He has no nausea and vomiting. He is able to tolerate oral intake. He simply feels significantly constipated. KUB was obtained prior to my assumption of care in the waiting room, shows significant stool impaction in the rectum/colon. This does appear quite high on my personal interpretation of XR, above the ischium, digital disimpaction likely not to be a great benefit, on evaluation there is not any stool that is able to be palpated. He is requesting a soapsuds enema as this has worked for him greatly in the past which I feel is reasonable at this time, in addition will provide with lactulose. A lower suspicion for bowel obstruction, toxic megacolon, small bowel dilation on KUB, a defer CT of the abdomen and pelvis at this time. Differential Diagnosis Differential Diagnoses: The differential diagnosis associated with the presentation includes (See narrative above) Independent Interpretation I performed an independent interpretation of an: Plain X-Ray (See narrative above) Radiology Impression Discussion of test interpretation with radiology: I have reviewed the radiologist's reading. Radiologist Impression: 1 view abdomen Comparison: CR/MI/SR - XR KUB - 07/16/24 10:03 EST CR/SR - XR KUB - 06/25/24 15:54 EST CR/MI/SR - XR KUB - 04/21/24 10:05 EDT CR/SR - XR KUB - 03/07/24 15:18 EDT Findings: Exam limited by habitus. Extensive stool burden as on currently appearing greater in the descending colon. Less pronounced transverse colon distention compared to most recent prior. No apparent transition zone with formed stool throughout including rectal vault. No appreciable stomach or small bowel dilatation. Impression: Continued excessively large stool burden throughout although degree of colon distention is less pronounced compared to most recent prior. External Record Review External record reviewed: Outpatient record Prescription Management I considered prescription management with: Other (See narrative above) Discharge Plan Discharge Clinical Impression: Chronic idiopathic constipation Patient Disposition: Home, Self-Care Instructions: Constipation (ED), High Fiber Diet (ED) Additional Instructions: Continue taking your medications as prescribed including your fiber supplement as well as Linzess, follow-up with PCP/gastroenterology. Be sure that you are staying well hydrated throughout the day, drinking at least 8-12 8 oz glasses of water daily. Prescriptions: No Action (DME) blood-glucose meter [FreeStyle Lite Meter] Kit See Rx Instructions .Route Qty: 1 5RF Rx Instructions: Tests 4 X/day cholecalciferol (vitamin D3) 25 mcg (1,000 unit) capsule 25 mcg PO DAILY Qty: 90 12RF bisacodyl 5 mg tablet,delayed release (DR/EC) 10 mg PO BID Qty: 90 0RF Linzess 290 mcg capsule 290 mcg PO QAM 30 Days Qty: 30 6RF (DME) pen needle, diabetic [BD Ultra-Fine Orig Pen Needle] 29 gauge x 1/2 needle See Rx Instructions .ROUTE DAILY Qty: 100 3RF Rx Instructions: As directed daily gabapentin 300 mg capsule 300 mg PO BEDTIME 90 Days Qty: 90 1RF metformin 500 mg tablet 1,000 mg PO BID 90 Days Qty: 360 1RF (DME) lancets [FreeStyle Lancets] 28 gauge misc See Rx Instructions .Route Qty: 100 4RF Rx Instructions: Tests 5x/day Jardiance 25 mg tablet 25 mg PO QAM Qty: 30 3RF (DME) FreeStyle Lite Strips Strip See Rx Instructions .Route Qty: 100 5RF Rx Instructions: Tests 5X/day metoclopramide HCl [Reglan] 10 mg tablet 10 mg PO TID Qty: 90 6RF glycerin (adult) Suppository 2 supp MI .after shower Qty: 25 6RF magnesium hydroxide [Milk of Magnesia] 400 mg/5 mL suspension 20 ml PO BEDTIME PRN (Reason: constipation) Qty: 3780 6RF atorvastatin 10 mg tablet 10 mg PO DAILY Qty: 90 0RF furosemide 20 mg tablet 20 mg PO DAILY Qty: 90 1RF ibuprofen 800 mg tablet 800 mg PO Q8H PRN (Reason: for pain) 30 Days Qty: 90 0RF Rx Instructions: take with food Tresiba FlexTouch U-200 200 unit/mL (3 mL) insulin pen 30 unit subcut DAILY 90 Days Qty: 9 3RF (DME) FreeStyle Jody 2 [place] Misc See Rx Instructions .ROUTE .COMPLEX Qty: 1 0RF Dose Instruction: USE DIRECTED TO TEST BLOOD SUGAR Rx Instructions: USE DIRECTED TO TEST BLOOD SUGAR (DME) blood-glucose meter [FreeStyle Lite Meter] Kit See Rx Instructions .ROUTE .MEDSUPPLY Qty: 1 0RF Rx Instructions: As directed Fiber Therapy (m-cellulose) 500 mg tablet 1,000 mg PO TID Qty: 180 0RF docusate sodium 100 mg capsule 100 mg PO BID Qty: 60 0RF benztropine 0.5 mg tablet 0.5 mg PO BID Metamucil (sugar) Powder 1 tsp PO BID Qty: 1254 0RF Chloraseptic Max Sore Throat 1.5-33 % spray,non-aerosol 1 spray mucous membrane Q6-8H PRN (Reason: sore throat) Qty: 118 0RF Rx Instructions: leave on area for 15 seconds then spit out hydroxyzine pamoate 50 mg capsule 50 mg PO TID PRN (Reason: Anxiety) ketoconazole 2 % cream 1 appl topical DAILY Qty: 30 0RF acetaminophen 500 mg tablet 1,000 mg PO Q6H PRN (Reason: pain) Qty: 30 0RF cyclobenzaprine 10 mg tablet 10 mg PO DAILY PRN (Reason: muscle spasm) Qty: 10 0RF lidocaine 5 % adhesive patch,medicated 1 patch topical DAILY Qty: 15 0RF Rx Instructions: leave on most painful area for up to 12 hrs clozapine 100 mg tablet 100 mg PO TID Digestive Advantage Advanced 10 billion cell capsule PO polyethylene glycol 3350 [Miralax] 17 gram powder in packet 17 g PO BID Qty: 30 6RF sildenafil 50 mg tablet 50 mg PO DAILY PRN (Reason: sexual activity) Qty: 10 0RF Rx Instructions: administer 30 minutes to 4 hours before activity Debrox 6.5 % drops 5 drp otic (ear) left DAILY 4 Days Qty: 15 0RF guaifenesin 200 mg/5 mL liquid 400 mg PO Q6H PRN (Reason: cough) Qty: 118 0RF Print Language: Spanish
[2024-09-08 15:24] VITALS: BP 115/84; PULSE 87; RESP 16; TEMP 36.2; O2SAT 96
[2024-09-08 18:19] VITALS: BP 141/92; PULSE 84; RESP 16; TEMP 36; O2SAT 98
[2024-09-08] MEDS: Lactulose 20 GM/30 ML SOLUTION 40 GM PO (19:05)
[2024-09-08 19:15] VITALS: BP 119/70; PULSE 87; RESP 16; TEMP 37.1; O2SAT 97
== END 2024-09-08 19:17 | disposition home or self-care (01) ==
PROVIDERS: Emergency Provider Emergency Medicine Emergency Medical Services; PCP Internal Medicine
DX: K59.00 Constipation, unspecified (principal); E11.9 Type 2 diabetes mellitus without complications; Z79.4 Long term (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; Z79.899 Other long term (current) drug therapy; Z87.891 Personal history of nicotine dependence
CPT/HCPCS: 74018; 99283

== ENCOUNTER → 2024-09-08 10:15 | Outpatient (BNV) | payer OTHER, SELFPAY | PROVIDERS: PCP Internal Medicine; Visit Provider Radiology Diagnostic Radiology | DX: K59.00 Constipation, unspecified (principal) | CPT/HCPCS: 74018 ==

== ENCOUNTER 2024-10-01 09:02 | Outpatient (REF) | payer OTHER, SELFPAY ==
[2024-10-01 09:36] LABS: MANUAL DIFF FLAG NO
--- OUTSIDE RECORDS SUMMARY | 2024-10-01 09:37 | XMS_ITS ---
[facility] Organization [facility] Address [address] [facility] [place] [address] Care Team Providers Care Unemployment Insurance Director Name Role Phone Luis Manuel Garcia MD Primary Care Provider Tu Ch Unavailable [phone] Allergies No Known Allergies REASON FOR VISIT At Risk Footcare, Painful Nail(s) aggravated by shoes and causing difficulty standing/walking., ToeIrritation Medications Medication SIG (Take, Route, Frequency, Duration) Notes Start Date End Date Status Extra Depth Orthopedic Shoes (1 Pair) with Customized Heat Molded Multidensity Innersoles (3 Pair) as directed Dx: NIDDM (E11.9), Hammertoe Foot Deformity (M20.41,M20.42), Preulcerative Skin Lesion(s) (L85.1) 08/30/2024 Active hydrOXYzine Pamoate 25 MG Oral for 30 Days Active Metoclopramide HCl 10 MG TAKE 1 TABLET B Y MOUTH THREE TIMES DAILY Oral for 30 Days Active FreeStyle Lite Test - USE TO TEST 5 TIME S A DAY In Vitro for 20 Days Active Benztropine Mesylate 0.5 MG Oral for 30 Days Active Tresiba FlexTouch 200 UNIT/ML Subcutaneous for 56 Days Act lisa Night Splint AFO - L1930 1 wear when at rest for 30 days Active Social History Tobacco Use: Social History Observation Description Date Details (start date - stop date) Never Smoker NA - NA Tobacco use other than smoking: Question Answer Notes Are you an other tobacco user? No Tobacco Control (Standard) Question Answer Notes Tobacco use: Nonsmoker Problems Problem Type SNOMED Code ICD Code Onset Dates Problem Status W/U Status Risk Notes Problem Acquired hammer toe of right foot (0026430570381 105) Other hammer toe(s) (acquired), right foot (M20.41) Active confirmed Problem Acquired hammer toe of left foot (8073458845334 103) Other hammer toe(s) (acquired), left foot (M20.42) Active confirmed Vital Signs Height 6ft in 08/30/2024 Weight 270 lbs 08/30/2024 BMI 36.61 kg/m2 08/30/2024 Blood pressure systolic 130 mm Hg 08/30/19 25 Blood pressure diastolic 80 mm Hg 025 Procedures Procedure Date Ordered Date Performed Result Body Sit e 20210-FROAHLG NAIL, 6 OR MORE 08/30/2024 N/A 26472-UNRK SKIN LESIONS, 2 TO 4 08/30/2024 N/A Encounters Encounter Location Date Provider Diagnosis [facility] [address] [address] 08/30/2024 Tu Gabby Pain in right toe(s) M79.674 ; Tinea unguium B35.1 ; Pain in left toe(s) M79.675 ; Type 2 diabetes mellitus without complication E11.9 ; Other hammer toe(s) (acquired), right foot M20.41 and Other hammer toe(s) (acquired), left foot M20.42 Assessments Encounter Date Diagnosis (ICD Code) Assessment Notes Treatment Notes Treatment Clinical Notes Section Notes 08/30/2024 Pain in right toe(s) (ICD-10 - M79.674) 08/30/2024 Tinea unguium (ICD-10 - B35.1) 08/30/2024 Pain in left toe(s) (ICD-10 - M79.675) 08/30/2024 Type 2 diabetes mellitus without complication (ICD-10 - E11.9) 08/30/2024 Other hammer toe(s) (acquired), right foot (ICD-10 - M20.41) Patient Educated with: DIABETIC FOOT CARE INSTRUCTIONS.p df (DIABETIC FOOT CARE INSTRUCTIONS.p df) 08/30/2024 Other hammer toe(s) (acquired), left foot (ICD-10 - M20.42) Plan Of Treatment Medication Medication Name Sig Start Date Stop Date Notes Extra Depth Orthopedic Shoes (1 Pair) with Customized Heat Molded Multidensity Innersoles (3 Pair) as directed Dx: NIDDM (E11.9), Hammertoe Foot Deformity (M20.41,M20.42), Preulcerative Skin Lesion(s) (L85.1) 08/30/2024 Treatment Notes Assessment Notes Other hammer toe(s) (acquired), right fo ot Patient Educated with: DIABETIC FOOT CARE INSTRUCTIONS.pdf (DIABETIC FOOT CARE INSTRUCTIONS.pdf) Pending Test Test Name Order Date [id number]-AJQZVVT NAIL, 6 OR MORE 08/30/2024 29075-AJNF SKIN LESIONS, 2 TO 4 08/30/19 25 Next Appt Details Follow Up: 2 Months, Reason: Procedure Notes * Category Sub-Category Detail Notes Debride Nail 6-10 Nail debridement Due to the cl inical pathology outlined in the exam findings, performance of this nail treatment is medically necessary as its management by an unskilled/untrained nonprofessional would put this patients foot and overall health at risk. Therefore, debridement to affected nail(s), as described in exam ( TA , T1 , T4, T5 , T6 , T9), was performed exclusively by the physician of record to reduce/remove overall nail length, girth, thickness, subungual debris, and necrotic tissue, by manual and/or electrical means through the use of a nail nipper and/or dremel-type salvage grinder, to a more viable healthy nail plate or bed tissue 6-10 nails in total. Silver nitrate was used for any petechial bleeding as necessary. Definitive antifungal treatment options, both pharmaceutical and surgical, have been reviewed and discussed with the patient. The patient solely prefers the use of intermittent/as needed professional debridement services for their nail condition and understands the need for additional periodic treatments to maintain effectiveness in symptomatic relief - Keratoma Treatment Parring or Cutting o f Benign Hyperkeratotic Lesion(s) (-56) 2-4 Lesions - Due to the at risk nature of the patients medical condition as documented in the exam findings, performance of this keratoderma treatment is medically necessary as its management by an unskilled/untrained nonprofessional would put this patients foot and overall health at risk. Therefore, the benign hyperkeratotic lesions, ( 2) in total, locations as stated and described in the exam ( Plantar, Heel(s) , B/L), were pared, and/or cut utilizing a sterile 15 blade, tissue nippers, and/or power dremel instrumentation by the physician of record - 85957 Progress Notes * Mike BAIRDDOB:[birth year] (63 yo M)Acc No.[id number]:08/30/2024 Progress Note Patient:Mike PLUNKETT Provider:?Tu Pierre DPM :1960???Age:63 Y???Sex:Male Taurus e:08/30/2024 Address:[address] [place] [address] [address], [place], [place] Pcp:Luis Manuel Garcia MD Subjective: * Chief Complaints: * ???At Risk FootcarePainful N ail(s) aggravated by shoes and causing difficulty standing/walking.Toe Irritation * HPI: ???At Risk footcare:?Pt States Last PCP Visit:?Date?08/01/2024 ???Toe pain:?Location:?B/L feet.?Duration:?several years.?Course:?worse.?Aggravated by:?shoes, any pressure.?Treatments:?change in shoes.? * ROS:?General/Constitutional:?Nausea?denies.?Vomiting?denies.?Hunger Thirst?denies.?Loss appetite?denies.?Chills?denies.?Fatigue?denies.?Fever?denies.?Night Sweats?denies.?Unexplained weight loss?denies.?Unexplained weight gain?denies.?HEENTM:?Dentures?denies.?Dizziness?denies.?Glasses/contacts?admits.?Retinopathy?den ies.?Blurred/double vision?denies.?TMJ?denies.?Discharge/drainage?denies.?Implants?denies.?Sore throat?denies.?Dental implants?denies.?Hard of hearing ?denies.?Difficulty chewing/swallowing/speaking?denies.?Nose bleeds?denies.?Sore mouth?denies.?Respiratory:?On O xygen?denies.?Pneumonia/pleurisy?denies.?Bronchitis?denies.?Emphysema?denies.?Co ughing?denies.?Cough blood?denies.?Shortness of breath?denies.?Wheezing?denies.?Cardiovascular:?Pacemaker?denies.?MVP?denies.?WPW?denies.?CHF?denies.?Heart attack?denies.?Septal defect?denies.?Rapid beat?denies.?Chest pain ?denies.?Atrial Fib.?denies.?Murmur/Palpitations?denies.?Gastrointestinal:?Hemorrhoids?denies.?Stomach/Abdominal pain?denies.?Dark blood stool?denies.?Irritable bowel ?denies.?Constipation?admits.?Diarrhea?admits.?Hematology:?Swelling?denies.?Clots?denies.?Varicose Veins?denies.?Bruising?denies.?Bleeding problem?denies.?Genitourinary:?Blood urine?denies.?Frequent/Painfu/urination/bladder control?denies.?Kidney stones?denies.?Infection (UTI)?denies.?Nephropathy?denies.?sex trans dis (STD)?denies.?Prostate?denies.?Musculoskeletal:?Hammertoes?admits.?Bunions?denies.?Back Pain?denies.?Muscle Cramps/ Resting?denies.?Muscle cramps / walking?denies.?Generalized aches and pains?denies.?Weakness?denies.?Integ.:?Sanchez?denies.?Scars?denies.?Corns/calluses?admits.?Ingrown nails?admits.?Painful nails?admits.?Open Sores?denies.?Rashes?denies.?Neurologic:?Difficulty sleeping?denies.?Brain disorder?denies.?Numbness?denies.?Balance t rouble?denies.?Confusion?denies.?Fainting/blackouts?denies.?Tingling?denies.?Jeffrey mors?denies.? * Medical History:? * Surgical History:?Denies Pas t Surgical History * Hospitalization/Major Diagno stic Procedure:?Denies Past Hospitalization * Family History:?Mother: mili oneil with Diabetic - NIDDM.?Maternal Grand Mother: diagnosed with Family history of arthritis.? * Social History:?Tobacco Use:?Tobacco use other than smoking?Are you an other tobacco user??No ?Tobacco Control (Standard)?Tobacco use:?Nonsmoker * Medications:?TakingNight Spl int AFO - L1930 1 wear when at rest Tresiba FlexTouch 200 UNIT/ML Solution Pen-injector Subcutaneous Metoclopramide HCl 10 MG Tablet TAKE 1 TABLET BY MOUTH THREE TIMES DAILY Oral hydrOXYzine Pamoate 25 MG Capsule Oral Benztropine Mesylate 0.5 MG Tablet Oral FreeStyle Lite Test - Strip USE TO TEST 5 TIMES A DAY In Vitro Medication List reviewed and reconciled with the patientTaking Night Splint AFO - L1930 1 wear when at rest Taking Tresiba FlexTouch 200 UNIT/ML Solution Pen-injector Subcutaneous Taking Metoclopramide HCl 10 MG Tablet TAKE 1 TABLET BY MOUTH THREE TIMES DAILY Oral Taking hydrOXYzine Pamoate 25 MG Capsule Oral Taking Benztropine Mesylate 0.5 MG Tablet Oral Taking FreeStyle Lite Test - Strip USE TO TEST 5 TIMES A DAY In Vitro Medication List reviewed and reconciled with the patient * Allergies:?N.K.D.A.yes[Aller gies Verified] Objective: * Vitals:?Ht: 6ft, Wt:270, BMI :36.61, Shoe size: 14W, BP:130/80mm Hg, BS: 245, Ht- cm: 182.88 cm, Wt-k.47 kg. * ???Past Orders: Lab:HEMOGLOBIN A1C (GLYCOHEM OGLOBIN) * Collection Date 07/19/2024 03/08/2024 Collection Time 10:41 AM 11:52 AM Order Date 07/19/2024 03/08/2024 HEMOGLOBIN A1C % (HH) 7.5 7.0 * Examination: ???Ophthalmology Referral: ?DIABETES EYE EXAM?Nails: ?NAILS are:?Elongated, overgrown, dystrophic, lytic, greater than 3mm thick, discolored and friable with crumbly malodorous subungual debris, with pain on palpation , TA , T1 , T4, T5 , T6 , T9, all other nails not described with characteristics as possessing mycosis are elongated, overgrown, and dystrophic.?Dermatologic: ?SKIN FINDINGS:?Skin exam reveals Keratotic lesion(s) located at , Plantar, Heel(s) , B/L.?Vascular: ?DP PULSES (B):?2/4, B/L.?PT PULSES (B):?2/4, B/L.?CAPILLARY FILL TIME:?immediate, all digits, B/L.?TROPHIC CONDITION-TEXTURE/ELASTICITY/TURGOR/HAIR GROWTH (B):?normal, B/L.?TEMPERTURE GRADIENT (C):?normal, warm to cool, proximal to distal, B/L, B/L.?PIGMENTATION:?normal, B/L.?EDEMA (C):?absent, B/L.?Orthopedic: ?MUSCLE STRENGTH:?5/5 all groups in a symmetrical fashion, B/L.?FOOT MORPHOLOGY:?(-) Charcot collapse/destruction noted at MTJ.?DIGITAL DEFORMITIES:?Digital contracture, PIPJ, 2-5 B/L, incompl-reducible with WB, or to push-up test, no over, nor underlapping, with evidence of shoe producing skin irritation.?FOOTWEAR:?worn, non-supportive, shoe gear properties exacerbate patients foot/toe deformity.?Neurological: ?SENSORY:?Neurological exam reveals intact sensorium, pain sensation normal, vibration sensation intact, pinprick sensation is normal in the lower extremities, 5.07 monofilament test performed at plantar aspects of 5 varied sites per foot shows sensation, normal, B/L, Pt denies, anesthesia, burning, paresthesia, tingling, B/L.?General Examination: ?GENERAL APPEARANCE:?Reveals a pleasant, alert, well nourished, well- developed, well hydrated individual, who demonstrates proper attention to hygiene/body habitus, and is in no acute distress, Pt serves as own historian for office visit today.?ORIENTED:?person, place, and time.?FOOT EXAM:?Footwear Evaluation? Assessment: * Assessment: 1.?Pain in right toe(s) - M7 9.674???2.?Tinea unguium - B35.1 (Primary)???3.?Pain in left toe(s) - M79.675???4.?Type 2 diabetes mellitus without complication - E11.9???5.?Other hammer toe(s) (acquired), right foot - M20.41???Specify :Chronic problem, Worse (4),Rx Management (4)???6.?Other hammer toe(s) (acquired), left foot - M20.42???Specify :Chronic problem, Worse (4),Rx Management (4)??? Plan: * Treatment: 2.?Type 2 diabetes mellitus without complication?Procedure: 46477-JFTG SKIN LESIONS, 2 TO 4 3.?Other hammer toe(s) (acqu ired), right foot? Start Extra Depth Orthopedic Shoes (1 Pair) with Customized Heat Molded Multidensity Innersoles (3 Pair), as directed, Dx: NIDDM (E11.9), Hammertoe Foot Deformity (M20.41,M20.42), Preulcerative Skin Lesion(s) (L85.1), 1, Refills 0.?? Notes: Patient Educated with: DIABETIC FOOT CARE INSTRUCTIONS.pdf (DIABETIC FOOT CARE INSTRUCTIONS.pdf)?? * Procedures:?Debride Nail 6-10:?Nail debridement?Due to the clinical pathology outlined in the exam findings, performance of this nail treatment is medically necessary as its management by an unskilled/untrained nonprofessional would put this patients foot and overall health at risk. Therefore, debridement to affected nail(s), as described in exam (?TA?,?T1?,?T4,?T5?,?T6?,?T9), was performed exclusively by the physician of record to reduce/remove overall nail length, girth, thickness, subungual debris, and necrotic tissue, by manual and/or electrical means through the use of a nail nipper and/or dremel-type salvage grinder, to a more viable healthy nail plate or bed tissue 6- 10 nails in total. Silver nitrate was used for any petechial bleeding as necessary. Definitive antifungal treatment options, both pharmaceutical and surgical, have been reviewed and discussed with the patient. The patient solely prefers the use of intermittent/as needed professional debridement services for their nail condition and understands the need for additional periodic treatments to maintain effectiveness in symptomatic relief - 90659.?Keratoma Treatment:?Parring or Cutting of Benign Hyperkeratotic Lesion(s)?(-56) 2-4 Lesions - Due to the at risk nature of the patients medical condition as documented in the exam findings, performance of this keratoderma treatment is medically necessary as its management by an unskilled/untrained nonprofessional would put this patients foot and overall health at risk. Therefore, the benign hyperkeratotic lesions, ( 2) in total, locations as stated and described in the exam (?Plantar,?Heel(s)?,?B/L), were pared, and/or cut utilizing a sterile 15 blade, tissue nippers, and/or power dremel instrumentation by the physician of record - [id number].? * Procedure Codes:?15205 DEBRI DE NAIL, 6 OR MORE, Modifiers: XS 60025 TRIM SKIN LESIONS, 2 TO 4, Modifiers: XS * Preventive Medicine:? ??Counseling:?Discussion:?-14: Office or other outpatient visit for the [...] have encouraged the patient to call the office.?Digital Surgery:?Digital surgery was discussed with the patient, We elected to try conservative treatment at the present time, due to the patients medical history and increased asssociated post-operative risks.?Digital Treatment:?HT- I explained to the patient the possible etiologies of Hammertoes, including genetics/foot type/shoegear/activity level/exercise routine and the risks/benefits of all the different treatment options for their pain including: No treatment at all, Rest, Ice, New/supportive/wider/deeper Shoegear, Digital Padding/Strapping/Taping/Bracing/Gel protective sleeves, Foot/Ankle AFO Bracing, Stretching exercises, Deep Tissue Massage, Arch support/shoe inserts with splay metatarsal padding, and Custom orthoses. I insisted that any digital devices be removed daily and not worn overnight for safety. The patient is to carefully examine the toes daily for any skin irritation while using any splinting or padding device. The advantages and disadvantages of each option were discussed and the patients questions re: shoegear, padding, custom vs prefabricated inserts, activity level, and consistency in home treatment regimens for optimal success were answered to their verbally confirmed satisfaction.?Shoe Gear Counseling:?SHOE Rx - The patient was counseled in great detail on their muscoloskeletal foot and toe deformities which coincided with the dermatological presentations visualized on exam. We discussed how their deformities put the integrity of their feet at risk for potential pedal complications which makes the accomidative diabetic shoes and cutomizable inserts medically necessary. We discussed the different shoe and insert treatment types and options, as well as the important advantages for adhering to regularly wearing these accomidative devices daily. The patient was made aware of the fact that a failure to abide by these recommedations may be deleterious to their foot health as they are able to prevent many pedal complications such as skin irritation, skin ulceration, infection, and even loss of toe/foot/leg/or life. Time was also spent with the patient dispensing and discussing proper diabetic footcare techniques including daily skin moisturization, daily foot inspection for any interruption in skin integrity including open lesions, or sign of infection such as redness/malodor/drainage/swelling. Also discussed and recommended were procedures regarding daily shoe inspection for the presence of internal foreign bodies as well as any visualized irregular shoe or insert wear. Patient questions re: shoes, inserts, and self foot inspections were answered to their satisfaction as the patient verbally confirmed a full understanding of the above information. A Rx for Extra Depth Orthopedic Shoes with 3 pair of custom heat-molded inserts was dispensed.? ??Screening/Special Tests:?Fall Risk?Screening:?No falls in the past year ?FALLS: Screening for Future Fall Risk?Have you had any falls with injury in the past year??No * Follow Up:?2 Months * Images: * Sign off status: Completed true * Provider:?ABBEY JohnsonM Date:?2024 Generated for Ruthy wood/Garrison/Harvey on:?10/01/2024 09:37 AM EST History and Physical Notes * HPI (History of Present Illness) Category Sub-Category Detail Notes Category Not es Toe pain Location: B/L feet Duration: several years Course: worse Aggravated by: shoes, any pressure Treatments: change in shoes At Risk footcare Pt States Last PCP Visit: Date: 4 Examination Category Sub-Category Detail Notes Category Not es Neurological SENSORY: Neurological exa m reveals intact sensorium, pain sensation normal, vibration sensation intact, pinprick sensation is normal in the lower extremities, 5.07 monofilament test performed at plantar aspects of 5 varied sites per foot shows sensation, normal, B/L, Pt denies, anesthesia, burning, paresthesia, tingling, B/L Dermatologic SKIN FINDINGS: Skin exam reveal s Keratotic lesion(s) located at , Plantar, Heel(s) , B/L Orthopedic FOOT MORPHOLOGY: (-) Charcot col lapse/destruction noted at MTJ FOOTWEAR: worn, non-supportive , shoe gear properties exacerbate patients foot/toe deformity DIGITAL DEFORMITIES: Digital contracture , PIPJ, 2-5 B/L, incompl-reducible with WB, or to push-up test, no over, nor underlapping, with evidence of shoe producing skin irritation MUSCLE STRENGTH: 5/5 all groups in a symmetrical fashion, B/L General Examination GENERAL APPEARANCE: Reveals a pleasant, alert, well nourished, well-developed, well hydrated individual, who demonstrates proper attention to hygiene/body habitus, and is in no acute distress, Pt serves as own historian for office visit today FOOT EXAM: Lower Extremity Neurological Exa m performed:: Yes Visual exam of foot performed:: Yes Date: 08/30/2024 ORIENTED: person, place, and t nabil Footwear Evaluation Footwear Evaluation performe d:: Yes Ophthalmology Referral DIABETES EYE EXAM Procedure Perform ed:: Yes ?Date of Exam Performed: 06/07/2024 Findings of Diabetic Eye Exam:: no retin [...] T1 , T4, T5 , T6 , T9, all other nails not described with characteristics as possessing mycosis are elongated, overgrown, and dystrophic
--- OUTSIDE RECORDS SUMMARY | 2024-10-01 09:38 | XMS_ITS ---
Author Organization [facility] Address [address] [place] [address] Care Team Providers Care Party Host Name Role Phone Manny Garcia MDneth Primary Care Provider Unava ilable Tu Pierre Unavailable [phone] REASON FOR VISIT Last A1C Encounters Encounter Location Date Provider Diagnosis [facility] [address] [place] [address] 09/03/2024 Tu Pierre Plan Of Treatment No Information Progress Notes * Mike BAIRDDOB:[birth year] (63 yo M)Acc No.[id number]:09/03/2024 Patient:?Mike BAIRD :1960???Age:63 Y???Sex:Male Address:[address] [place], [address] * true * Date:? Generated for Tashi israel/Garrison/eTransmitting on:?10/01/2024 09:37 AM EST
--- OUTSIDE RECORDS SUMMARY | 2024-10-01 09:38 | XMS_ITS | Patient Health Record ---
[facility] Organization [facility] [place] Address [address] [place] [address] Care Team Providers Care County Demonstrator Name Role Phone Jose RENAE, Luis Manuel Primary Care Provider UnaTu Paul Unavailable [phone] Allergies No Known Allergies Results Component Value Reference Range Notes HEMOGLOBIN A1C (GLYCOHEMOGLO BIN) Reviewed date:08/30/2024 11:53:23 AM Interpretation: Performing Lab: Notes/Report: HEMOGLOBIN A1C % (HH) 7.0 HEMOGLOBIN A1C (GLYCOHEMOGLO BIN) Reviewed date:09/03/2024 10:41:57 AM Interpretation: Performing Lab: Notes/Report: HEMOGLOBIN A1C % (HH) 7.5 Reason For Referral No Information Medications Medication [...] stop date) Never Smoker NA - NA Alcohol Screen Question Answer Notes Did you [...] Problem Acquired hammer toe of right foot (502026139279310 5) Other hammer toe(s) (acquired), right foot (M20.41) Active confirmed Problem Acquired hammer toe of left foot (003829541270153 3) Other hammer toe(s) (acquired), left foot (M20.42) Active confirmed Problem Type 2 diabetes mellitus without complication (010337417) Type 2 diabetes mellitus without complication (E11.9) Active confirmed Vital Signs Blood pressure diastolic 80 mm Hg 08/30/2024 Height 6ft in 08/30/2024 Blood pressure systolic 130 mm Hg 08/30/2024 Weight 270 lbs 08/30/2024 BMI 36.61 kg/m2 08/30/2024 Procedures Procedure Date Ordered Date Performed Result Body Sit e 15170-UCVHXTZ NAIL, 6 OR MORE 03/08/2024 N/A 76160-Dbhejgie Plate 03/08/2024 N/A 72260-HLDZ SKIN LESIONS, 2 TO 4 03/08/2024 N/A 76366-XHLUEVQ NAIL, 6 OR MORE 06/21/2024 N/A 29953-ZZBJ SKIN LESIONS, 2 TO 4 06/21/2024 N/A 65815-OLQWHXK NAIL, 6 OR MORE 08/30/2024 N/A 26282-OKQS SKIN LESIONS, 2 TO 4 08/30/2024 N/A Encounters Encounter Location Date Provider Diagnosis [facility] [address] [place] [address] 03/08/2024 Tu Pierre Tinea unguium B35.1 ; [...] without complication E11.9 and Ingrown nail L60.[address] [address] 06/21/2024 Tu Pierre Tinea unguium B35.1 ; Pain in right toe(s) M79.674 ; Pain in left toe(s) M79.675 ; Achilles tendinitis of right lower extremity M76.61 and Type 2 diabetes mellitus without complication E11.[address] [address] 08/30/2024 Tu Pierre Pain in right toe(s) M79.674 ; Tinea unguium B35.1 ; Pain in left toe(s) M79.675 ; Type 2 diabetes mellitus without complication E11.9 ; Other hammer toe(s) (acquired), right foot M20.41 and Other hammer toe(s) (acquired), left foot M20.[address] [address] 01/04/2024 Tu Pierre [address] [address] 04/17/2024 Tu Pierre [address] [address] 09/03/2024 Tu Pierre [address] [address] 10/01/2024 Tu Pierre Assessments Encounter Date Diagnosis (ICD Code) Assessment Notes Treatment Notes Treatment Clinical Notes Section Notes 03/08/2024 Tinea unguium (ICD-10 - B35.1) 03/08/2024 Pain in right toe(s) (ICD-10 - M79.674) 06/21/2024 Tinea unguium (ICD-10 - B35.1) 06/21/2024 Pain in right toe(s) (ICD-10 - M79.674) 08/30/2024 Pain in right toe(s) (ICD-10 - M79.674) 08/30/2024 Tinea unguium (ICD-10 - B35.1) 08/30/2024 Pain in left toe(s) (ICD-10 - M79.675) 06/21/2024 Pain in left toe(s) (ICD-10 - M79.675) 03/08/2024 Pain in left toe(s) (ICD-10 - M79.675) 03/08/2024 Achilles tendinitis of right lower extremity (ICD-10 - M76.61) Patient Educated with: HEEL CORD STRETCHES.pdf (HEEL CORD STRETCHES.pdf) Patient Educated with: RICE THERAPY.pdf (RICE THERAPY.pdf) 06/21/2024 Achilles tendinitis of right lower extremity (ICD-10 - M76.61) 08/30/2024 Type 2 diabetes mellitus without complication (ICD-10 - E11.9) 06/21/2024 Type 2 diabetes mellitus without complication (ICD-10 - E11.9) 08/30/2024 Other hammer toe(s) (acquired), right foot (ICD-10 - M20.41) Patient Educated with: DIABETIC FOOT CARE INSTRUCTIONS.p df (DIABETIC FOOT CARE INSTRUCTIONS.p df) 03/08/2024 Pain of right heel (ICD-10 - M79.671) 08/30/2024 Other hammer toe(s) (acquired), left foot (ICD-10 - M20.42) 03/08/2024 Exostosis of right posterior calcaneus (ICD-10 - M77.31) 03/08/2024 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) 03/08/2024 Short Achilles tendon (acquired), right ankle (ICD-10 - M67.01) 03/08/2024 Type 2 diabetes mellitus without complication (ICD-10 - E11.9) 03/08/2024 Ingrown nail (ICD-10 - L60.0) Plan Of Treatment Pending Test Test Name Order Date X ray : Foot, right 3V 03/08/2024 64305-YHWCMDE NAIL, 6 OR MORE 03/08/2024 50215-JRJANCM NAIL, 6 OR MORE 06/21/2024 16982-CIUHEHG NAIL, 6 OR MORE 08/30/2024 16357-Yzidoxzy Plate 03/08/2024 32414-UWUU SKIN LESIONS, 2 TO 4 03/08/20 24 17378-UOUU SKIN LESIONS, 2 TO 4 08/30/19 25 63559-GHYY SKIN LESIONS, 2 TO 4 06/21/20 Insurance Providers Payer Name Payer Address Payer Phone Subscriber Number Group Number Insured Name Patient Relationship to Insured Coverage Start Date Coverage End Date we [facility] [employer] Claims [address] [place] [phone] [id number] Mike Cornejo Self - patient is the insured Medical (General) History Medical History History ICD Code Diabetic Surgical History Surgery Date(Month/Year)
--- OUTSIDE RECORDS SUMMARY | 2024-10-01 09:38 | XMS_ITS ---
Author Organization [facility] Address [address] [place] [address] Care Team Providers Care Carbide Powder Processor Name Role Phone Manny Garcia MDneth Primary Care Provider Unava ilable Tu Pierre Unavailable [phone] REASON FOR VISIT cx 11/15 Encounters Encounter Location Date Provider Diagnosis [facility] [address] [place] [address] 10/01/2024 Tu Pierre Plan Of Treatment No Information Progress Notes * Mike BAIRDDOB:[birth year] (63 yo M)Acc No.[id number]:10/01/2024 Patient:?Mike BAIRD :1960???Age:63 Y???Sex:Male Address:[address] [place], [address] * true * Date:? Generated for Printi israel/Garrison/eTransmitting on:?10/01/2024 09:37 AM EST
[2024-10-01 10:15] LABS: Hematocrit 43.8 % (42.0-52.0); Hemoglobin 15.2 g/dl (14.0-18.0); Imm Gran Abs Auto 0.13 X10*3/uL (0.00-0.03); Imm Gran Pct Auto 1.8 % (0.0-0.4); Mean Corpuscular HGB Conc 34.7 g/dl (31.0-36.0); Mean Corpuscular Hemoglobin 29.9 pg (27.0-33.0); Mean Corpuscular Volume 86.1 fL (80.0-98.0); Mean Platelet Volume 10.4 fL (9.4-12.4); Monocytes Absolute Auto 0.5 X10*3/uL (0.1-1.2); Monocytes Percent Auto 7.1 % (2-11); Neutrophils Absolute Auto 5.5 x10*3/uL (2.0-8.3); Neutrophils Percent Auto 77.1 % (45-73); Platelet Count 104 X10*3/uL (160-400); Red Blood Count 5.09 X10*6/uL (4.60-5.80); White Blood Count 7.2 X10*3/uL (4.8-10.8)
== END 2024-10-01 09:03 | disposition home or self-care (01) ==
LOC: HO.LABR 09:02
PROVIDERS: PCP Internal Medicine; Visit Provider Psychiatry & Neurology Psychiatry
DX: F25.0 Schizoaffective disorder, bipolar type (principal)
CPT/HCPCS: 36415; 85025

== ENCOUNTER 2024-10-04 09:38 | Outpatient (AMB) | payer OTHER, SELFPAY ==
--- NOTE | 2024-10-04 07:19 | A.OFFVIS_ITS ---
Vital Signs 10/04/24 09:50 Height 6 ft 1 in Weight 273 lb 5.971 oz BMI 36.1 BP 130/80 Blood Pressure Location Rt brachial Position Sitting Pulse 87 Pulse Source Pulse Oximeter Pulse Oximetry (%) 97 Oxygen Delivery Method Room Air Intake Visit Reasons: Type 2 diabetes mellitus Intake Note: Patient presents today to re-establish treatment for Type 2 Diabetes Mellitus: Last Diabetic eye exam was on: 08/08/2024, [facility] [facility]. Last Podiatry exam was on: 08/30/2024, [facility] [employer] Control Operator Most recent HbA1c: 7.5%, 07/19/2024 Random Glucose- 220 mg/dL, Today Hemotherapist Required: No Accompanied by: Self / Same As Patient Allergies No Known Allergies [No Known Allergies*] Allergy (Verified 10/04/24 09:53) Medication List - Last Reconciled 10/04/24 by Hanna Jarquin NP acetaminophen 1,000 mg (2 x 500 mg) PO Q6H PRN atorvastatin 10 mg PO DAILY benztropine 0.5 mg PO BID bisacodyl 10 mg (2 x 5 mg) PO BID blood sugar diagnostic (FreeStyle Lite Strips) Tests 5X/day blood-glucose meter (FreeStyle Lite Meter kit) Tests 4 X/day blood-glucose meter (FreeStyle Lite Meter kit) As directed blood-glucose meter,continuous (FreeStyle Jody 3 [place]) As directed for use with freestyle jody 3+ sensor blood-glucose sensor (FreeStyle Jody 3 Plus Sensor device) every 15 days for continuous use carbamide peroxide 6.5% (Debrox) 5 drps otic (ear) left DAILY 4 days cholecalciferol (vitamin D3) 25 mcg PO DAILY clozapine 100 mg PO TID cyclobenzaprine 10 mg PO DAILY PRN docusate sodium 100 mg PO BID empagliflozin (Jardiance) 25 mg PO QAM furosemide 20 mg PO DAILY gabapentin 300 mg PO BEDTIME 90 days glycerin (adult) 2 supp ME .after shower guaifenesin 400 mg (10 mL) PO Q6H PRN hydroxyzine pamoate 50 mg PO TID PRN hydroxyzine pamoate mg PO ONCE ibuprofen 800 mg PO Q8H PRN 30 days ketoconazole 2% 1 appl topical DAILY lancets (FreeStyle Lancets) Tests 5x/day lidocaine 5% 1 patch topical DAILY linaclotide (Linzess) 290 mcg PO QAM magnesium hydroxide (Milk of Magnesia) 20 mL PO BEDTIME PRN metformin 1,000 mg (2 x 500 mg) PO BID 90 days methylcellulose (laxative) (Fiber Therapy (methylcellulose)) 1,000 mg (2 x 500 mg) PO TID metoclopramide HCl (Reglan) 10 mg PO TID pen needle, diabetic (BD Ultra-Fine Original Pen Needle) As directed daily polyethylene glycol 3350 (Miralax) 17 grams PO BID psyllium seed (sugar) (Metamucil (sugar) oral powder) 1 tsp PO BID sildenafil 50 mg PO DAILY PRN simethicone 180 mg PO TID Tresiba FlexTouch U-200 (insulin degludec) 30 units (0.15 mL) subcut DAILY 90 days NS HPI Comments Details: Patient is a 63-year-old male with DM type 2 diagnosed in 1990 who presents for consult. Patient was previously seen by endo Clinic but was last seen 10/27/2021 at which time his A1C was in good range. Hgb A1C 07/19/24 7.5% 01/2022 6.3% He has hypoglycemia unawareness and per last endocrine note limited insight into his diabetes. Previous medication: Trulicity stopped due to GI symptoms: abd pain and bloating which resolved after med was discontinued. Diabetes medications: Tresiba U200 30 units in the am Jardiance 25mg metformin 1,000mg BID Uses a glucometer average 220 readings lower in normal range later in the day occasional low if he skips breakfast No retinopathy: Ophthalmology evaluation: 07/2024 [facility] He reports his eyes get dry at times. Has neuropathy on gabapentin: reported: denies numbness, tingling, cramping in lower extremities [facility] last seen 4 weeks ago Has Nephropathy:eGFR 56 07/19/24 microalbumin: Less than 5.0 Has HLD on statin last ldl 79 07/2024 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: occurs after work when has not eaten all day. Hyperglycemia: occasional urinary frequency, + nocturia 3-5x, +polydypsia Diet: Breakfast: coffee and egg sandwich Lunch: hamburger Dinner: turkey, cheese sandwich with macaroni salad, diet soda , Snacks: banana or 0 sugar candy , Drinks throughout day: water, coffee Exercise: works at [employer] 16-18 hours a week. d Frequently walks No recent Milana Snell CDE or Lili Julian RD appointments Followed by GI medicine for idiopathic constipation [facility] screen Fibrosis-4 (Fib-4) Index for liver fibrosis (calculated on lab work done:07/19/24 ) 2.46 points Advanced fibrosis needs further investigation Approximate Fibrosis stage Alexi 2-3 *Use with caution in patients <35 or >65 years old, as the score has been shown to be less reliable in these patients. Prior Imaging abdominal CT 07/17/2024 LIVER, GALLBLADDER, AND BILIARY TREE: Nodular hepatic contour. The liver is normal in size and shape. No focal hepatic lesion or biliary ductal dilatation is present. The gallbladder is unremarkable with no evidence of radiopaque gallstones, gallbladder wall thickening, or obvious pericholecystic inflammatory changes. Action Plan: [facility] Medical History Impacted cerumen, right ear Acute diarrhea Pain in both feet Calcaneal spur of right foot Achilles tendinitis Callus of foot Right hand pain Abdominal bloating Vertigo Calcaneal spur Colon cancer screening COVID-19 Pre-op examination Elevated LFTs Encounter for Medicare annual wellness exam Bowel obstruction Melena Knee pain, bilateral Gastroenteritis Healed wound Chronic idiopathic constipation Chronic idiopathic constipation Hospital discharge follow-up Knee osteoarthritis Obesity (BMI 30-39.9) Schizoaffective disorder Pure hypercholesterolemia Benign essential hypertension Chronic kidney disease (CKD), stage III (moderate) Type 2 diabetes mellitus with diabetic chronic kidney disease Morbid obesity Dyslipidemia 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 mellitus termite inspector (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 Diabetic polyneuropathy associated with 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 mellitus Schizo affective schizophrenia Diabetes type 2, uncontrolled Surgical History History of repair of congenital cleft palate Hx of circumcision Family History Father HTN (hypertension) Mother Diabetes Other Mental health problem Social History Household Members: None Housing: Apartment Are you a primary care director rn to a significant other at home: No Do you presently have visiting nurse or other home services: Yes Alcohol intake: former Patient Tobacco Use Status: Former Tobacco user Tobacco use type: Cigarette Cigarettes Per Day: 15 Years Smoked: 8 quit 30 years ago e-Cigarette/Vaping Use: Never Used Second Hand Smoke Exposure: No service: No Current occupational status: employed Current occupation: [employer] Cognitive needs: No Hearing needs: No Vision needs: Yes (glasses) Physical Exam Vital Signs: Last Vital Signs Pulse 87 10/04/24 09:50 BP 130/80 10/04/24 09:50 Pulse Ox 97 10/04/24 09:50 Oxygen Delivery Method Room Air 10/04/24 09:50 BMI result Body Mass Index 36.1 Const Other: Absence of Cushingoid features. Absence of acromegalic features. Neck exam reveals nl size thyroid about 15 gms. No thyroid nodules palpable. No carotid bruits present. Lungs CTA. Heart S1 S2, Reg R/R. No M/R G. Skin exam reveals absence of vitiligo or acanthosis nigricans. No edema Affect flat. Visual exam of foot performed. tiny 1 mm flat blood blister, no fluctuance left great toe No ulcerations or open lesions. No inter digit maceration or fissuring. No onychomycosis, no callouses. Sensation intact to monofilament exam. Vibratory sensation is absen with 128 Hz tuning fork. Results Reviewed Results Reviewed: Laboratory Last Values Glucose (Clinic) 220 mg/dL (60-115) H 10/04/24 10:01 Assessment & Plan Assessment & Plan (1) Type 2 diabetes mellitus with diabetic chronic kidney disease: Code(s): E11.22 - Type 2 diabetes mellitus with diabetic chronic kidney disease Category: Medical Qualifiers: Chronic kidney disease stage: stage 3 (moderate) Chronic kidney disease stage 3 subtype: unspecified whether 3a or 3b Diabetes mellitus mcfp insulin use: with termite inspector use Qualified Code(s): E11.22 - Type 2 diabetes mellitus with diabetic chronic kidney disease; N18.30 - Chronic kidney disease, stage 3 unspecified; Z79.4 - nursing home (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 Plan: 63-year-old type 2 diabetic with schizoaffective disorder neuropathy, stable nephropathy and hypoglycemia unawareness with an A1C of 7.5% An A1c of 7.5% for this patient is reasonable given his psychiatric comorbidity, hypoglycemia unawareness and living alone. He will have a return visit with CDE for general education and for training on freestyle jody He requested a trial of a GLP 1 agonist but has not done well on Trulicity in the past with the abdominal pain and bloating and currently has extensive issues with the constipation. He is followed by a GI provider for this and has had frequent trips to the emergency room. I recommended that he meet with our registered dietitian which he says he will consider but we will not commit to as yet today. He was advised not to skip meals. Once he is on a sensor we will be up to adjust medication as needed. I would recommend a sensor for this patient because of his hypoglycemia unawareness and his lack of insight into diabetes care places him at great risk for hypoglycemia. An order was sent today and prior authorization will be requested. The patient had an opportunity to ask questions regarding treatment plan. The patient expressed understanding and agreement with the above treatment plan. The patient is aware they should contact our office by phone for worsening glucose readings or for any low blood sugars which may warrant a change in diabetes medication. Compliance is encouraged with medications and any followup testing/consults which may have been ordered. Plan 63-year-old type 2 diabetic with his schizoaffective disorder, hypoglycemia unawareness, chronic CKD followed by Nephrology and neuropathy with the an A1c is 7.5%. Patient requested a GLP 1 agonist but would not recommend secondary to the extreme constipation he has. He is followed by GI provider for this and has had multiple trips to the emergency room. I offered a referral to registered dietitian to review foods that would help to improve his constipation but he declined today and we will consider this at a future visit. He was asked to not skip breakfast Medications: New blood-glucose sensor (FreeStyle Jody 3 Plus Sensor device) every 15 days for continuous use 2 ea 11RF E11.22 - Type 2 diabetes mellitus with diabetic chronic kidney disease, N18.30 - Chronic kidney disease, stage 3 unspecified, Z79.4 - nursing home (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 blood-glucose meter,continuous (FreeStyle Jody 3 [place]) As directed for use with freestyle jody 3+ sensor 1 ea 0RF E11.22 - Type 2 diabetes mellitus with diabetic chronic kidney disease, E11.649 - Type 2 diabetes mellitus with hypoglycemia without coma, N18.30 - Chronic kidney disease, stage 3 unspecified, Z79.4 - termite inspector (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 blood-glucose sensor (FreeStyle Jody 3 Plus Sensor device) every 15 days for continuous use 2 ea 11RF E11.22 - Type 2 diabetes mellitus with diabetic chronic kidney disease, N18.30 - Chronic kidney disease, stage 3 unspecified, Z7 9.4 - termite inspector (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 blood-glucose sensor (FreeStyle Jody 3 Plus Sensor device) every 15 days for continuous use 2 ea 11RF E11.22 - Type 2 diabetes mellitus with diabetic chronic kidney disease, N18.30 - Chronic kidney disease, stage 3 unspecified, Z79.4 - nursing home (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 blood-glucose meter,continuous (FreeStyle Jody 3 [place]) As directed for use with freestyle jody 3+ sensor 1 ea 0RF E11.22 - Type 2 diabetes mellitus with diabetic chronic kidney disease, E11.649 - Type 2 diabetes mellitus with hyp oglycemia without coma, N18.30 - Chronic kidney disease, stage 3 unspecified, Z79.4 - nursing home (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 blood-glucose meter,continuous (FreeStyle Jody 3 [place]) As directed for use with freestyle jody 3+ sensor 1 ea 0RF E11.22 - Type 2 diabetes mellitus with diabetic chronic kidney disease, E11.649 - Type 2 diabetes mellitus with hypoglycemia without coma, N18.30 - Chronic kidney disease, stage 3 unspecified, Z79.4 - termite inspector (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 Patient Instructions: The patient was counseled to achieve a target A1C of 7.5% (170 avg). Fasting blood sugars should be 100-130 in the morning and less than 200 two hours after meals. Reviewed the relationship between poor diabetic control and the development of complications. Check your feet daily looking for any signs of infection, drainage, redness, ulceration and seek medical attention if this occurs. Break in shoes gradually and do not wear open-toed shoes or walk stocking footed or barefooted. Coding Level of Care Code New Pt Level 5 (11160) Complex EM visit Add On G2211 Diagnoses Type 2 diabetes mellitus with stage 3 chronic kidney disease, with long-term current use of insulin, unspecified whether stage 3a or 3b CKD E11.22; N18.30; Z79.4 Chronic kidney disease stage: stage 3 (moderate) Chronic kidney disease stage 3 subtype: unspecified whether 3a or 3b Diabetes mellitus mcfp insulin use: with mcfp use Time Spent (min) 60 Comment Time spent reviewing labs/provider notes, face to face, chart doc
[2024-10-04 09:50] VITALS: BP 130/80; PULSE 87; O2SAT 97; BMI 36.1
--- OUTSIDE RECORDS SUMMARY | 2024-10-04 10:11 | XMS_ITS ---
Author Organization [facility] Address [address] [place] [address] Care Team Providers Care Metal Sprayer Protective Coating Name Role Phone New Garcia MDh Primary Care Provider Unava ilable Tu Pierre Unavailable [phone] REASON FOR VISIT cx 11/15 Encounters Encounter Location Date Provider Diagnosis [facility] [address] [place] [address] 10/01/2024 Tu Pierre Plan Of Treatment No Information Progress Notes * Mike BAIRDDOB:[birth year] (63 yo M)Acc No.[id number]:10/01/2024 Patient:?Mike BAIRD :1960???Age:63 Y???Sex:Male Address:[address] [place], [address] * true * Date:? Generated for Tashi israel/Garrison/eTransmitting on:?10/04/2024 10:11 AM EST
--- OUTSIDE RECORDS SUMMARY | 2024-10-04 10:11 | XMS_ITS ---
Author Organization [facility] Address [address] [facility] [place] [address] Care Team Providers Care Robot Designer Name Role Phone Luis Manuel Garcia MD Primary Care Provider Tu Ch Unavailable [phone] Allergies No Known Allergies REASON FOR VISIT [...] Problem Acquired hammer toe of right foot (5077280705209 105) Other hammer toe(s) (acquired), right foot (M20.41) Active confirmed Problem Acquired hammer toe of left foot (4928203713189 103) Other hammer toe(s) (acquired), left foot (M20.42) Active confirmed Vital Signs Blood pressure systolic 130 mm Hg 08/30/19 25 Blood pressure diastolic 80 mm Hg 025 Height 6ft in 08/30/2024 Weight 270 lbs 08/30/2024 BMI 36.61 kg/m2 08/30/2024 Procedures Procedure Date Ordered Date Performed Result Body Sit e 07467-KTORBOT NAIL, 6 OR MORE 08/30/2024 N/A 27133-RZYC SKIN LESIONS, 2 TO 4 08/30/2024 N/A Encounters Encounter Location Date Provider Diagnosis [facility] [address] [place] [address] 08/30/2024 Tu Pierre Pain in right toe(s) [...] INSTRUCTIONS.pdf) Pending Test Test Name Order Date 22473-WGMLBEM NAIL, 6 OR MORE 08/30/2024 48765-SABW SKIN LESIONS, 2 TO 4 08/30/19 25 [...] use of a nail nipper and/or dremel-type lens grinder rough, to a more viable healthy nail plate [...] instrumentation by the physician of record - 52733 Progress Notes * Mike BAIRDDOB:[birth year] (63 yo M)Acc No.[id number]:08/30/2024 Progress Note Patient:Mike PLUNKETT Provider:?Tu Pierre DPM :1960???Age:63 Y???Sex:Male Taurus e:08/30/2024 Address:[address] [place] [address] [address], [place], [place] Pcp:Luis Manuel Garcia MD Subjective: * Chief [...] Treatment: 2.?Type 2 diabetes mellitus without complication?Procedure: 61918-KBOP SKIN LESIONS, 2 TO 4 3.?Other hammer [...] use of a nail nipper and/or dremel-type lens grinder rough, to a more viable healthy nail plate [...] to maintain effectiveness in symptomatic relief - 13062.?Keratoma Treatment:?Parring or Cutting of Benign Hyperkeratotic Lesion(s)?(-56) [...] instrumentation by the physician of record - 99505.? * Procedure Codes:?39762 DEBRI DE NAIL, 6 OR MORE, Modifiers: XS 07181 TRIM SKIN LESIONS, 2 TO 4, Modifiers: [...] Provider:?ABBEY JohnsonM Date:?2024 Generated for Ruthy wood/Garrison/Harvey on:?10/04/2024 10:11 AM EST History and Physical Notes * [...]
--- OUTSIDE RECORDS SUMMARY | 2024-10-04 10:11 | XMS_ITS | Patient Health Record ---
Author Organization [facility] ayde [place] Address [address] [facility] [place] [address] Care Team Providers Care Dry Wall Nailer Name Role Phone Jose RENAE, Luis Manuel Primary Care Provider UnaTu Paul Unavailable [phone] Allergies No Known Allergies Results Component Value [...] Problem Acquired hammer toe of right foot (113587814460373 5) Other hammer toe(s) (acquired), right foot (M20.41) Active confirmed Problem Acquired hammer toe of left foot (845698350365571 3) Other hammer toe(s) (acquired), left foot (M20.42) Active confirmed Problem Type 2 diabetes mellitus without complication (015577449) Type 2 diabetes mellitus without complication (E11.9) Active confirmed Vital Signs Blood pressure diastolic 80 mm Hg 08/30/2024 Height 6ft in 08/30/2024 Blood pressure systolic 130 mm Hg 08/30/2024 Weight 270 lbs 08/30/2024 BMI 36.61 kg/m2 08/30/2024 Procedures Procedure Date Ordered Date Performed Result Body Sit e 67138-ODEILJC NAIL, 6 OR MORE 03/08/2024 N/A 96868-Kmxtoehu Plate 03/08/2024 N/A 43171-LLRT SKIN LESIONS, 2 TO 4 03/08/2024 N/A 02170-JMTPFTP NAIL, 6 OR MORE 06/21/2024 N/A 79021-STFY SKIN LESIONS, 2 TO 4 06/21/2024 N/A 23717-PETDYMP NAIL, 6 OR MORE 08/30/2024 N/A 43752-LLPU SKIN LESIONS, 2 TO 4 08/30/2024 N/A Encounters Encounter Location Date Provider Diagnosis [facility] [place] [address] [place] [address] 03/08/2024 Tu Pierre Tinea unguium B35.1 ; [...] without complication E11.9 and Ingrown nail L60.[address] [address] 06/21/2024 Tu Pierre Tinea unguium B35.1 ; Pain in right toe(s) M79.674 ; Pain in left toe(s) M79.675 ; Achilles tendinitis of right lower extremity M76.61 and Type 2 diabetes mellitus without complication E11.[address] [address] 08/30/2024 Tu Pierre Pain in right toe(s) M79.674 ; Tinea unguium B35.1 ; Pain in left toe(s) M79.675 ; Type 2 diabetes mellitus without complication E11.9 ; Other hammer toe(s) (acquired), right foot M20.41 and Other hammer toe(s) (acquired), left foot M20.[address] [address] 01/04/2024 Tu Pierre [address] [address] 04/17/2024 Tu Pierre [address] [address] 09/03/2024 Tu Pierre [address] [address] 10/01/2024 Tu Pierre Assessments Encounter Date Diagnosis [...] X ray : Foot, right 3V 03/08/2024 92137-DHEHZDF NAIL, 6 OR MORE 03/08/2024 58791-WUFDJZC NAIL, 6 OR MORE 06/21/2024 78017-RITQZXK NAIL, 6 OR MORE 08/30/2024 87211-Zygjgsiz Plate 03/08/2024 76854-DNPU SKIN LESIONS, 2 TO 4 03/08/20 24 87434-JLMB SKIN LESIONS, 2 TO 4 08/30/19 25 04943-SLNH SKIN LESIONS, 2 TO 4 06/21/20 Insurance Providers Payer Name Payer Address Payer Phone Subscriber Number Group Number Insured Name Patient Relationship to Insured Coverage Start Date Coverage End Date we [facility] S[employer] Claims [address] [place] [phone] [id number] Mike Cornejo Self - patient is the insured Medical (General) History Medical History History ICD Code Diabetic Surgical History Surgery Date(Month/Year)
--- OUTSIDE RECORDS SUMMARY | 2024-10-04 10:12 | XMS_ITS ---
Author Organization [facility] Address [address] [place] [address] Care Team Providers Care Ludlow Machine Operator Name Role Phone Manny Garcia MDneth Primary Care Provider Unava ilable Tu Pierre Unavailable [phone] REASON FOR VISIT Last A1C Encounters Encounter Location Date Provider Diagnosis [facility] [address] [place] [address] 09/03/2024 Tu Pierre Plan Of Treatment No Information Progress Notes * Mike BAIRDDOB:[birth year] (63 yo M)Acc No.[id number]:09/03/2024 Patient:?Mike BAIRD :1960???Age:63 Y???Sex:Male Address:[address] [place], [address] * true * Date:? Generated for Tashi israel/Garrison/eTransmitting on:?10/04/2024 10:11 AM EST
[2024-10-04 10:13] LABS: Glucose, Whole Blood 220 mg/dL (60-115)
== END 2024-10-04 10:24 | disposition home or self-care (01) ==
PROVIDERS: PCP Internal Medicine; Visit Provider Nurse Practitioner Adult Health
DX: E11.22 Type 2 diabetes mellitus with diabetic chronic kidney disease (principal); N18.30 Chronic kidney disease, stage 3 unspecified; Z79.4 Long term (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
CPT/HCPCS: 99205; G2211

== ENCOUNTER → 2024-10-04 09:38 | Outpatient (BNVA) | payer OTHER, SELFPAY | PROVIDERS: PCP Internal Medicine; Visit Provider Nurse Practitioner Adult Health | DX: E11.22 Type 2 diabetes mellitus with diabetic chronic kidney disease (principal); N18.30 Chronic kidney disease, stage 3 unspecified; Z79.4 Long term (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 | CPT/HCPCS: 82947; 99202 ==

== ENCOUNTER 2024-10-29 09:00 | Outpatient (REF) | payer OTHER, SELFPAY ==
[2024-10-29 09:20] LABS: MANUAL DIFF FLAG NO
[2024-10-29 10:32] LABS: Hematocrit 45.2 % (42.0-52.0); Imm Gran Abs Auto 0.04 X10*3/uL (0.00-0.03); Imm Gran Pct Auto 0.6 % (0.0-0.4); Lymphocytes Absolute Auto 1.4 X10*3/uL (1.2-4.9); Lymphocytes Percent Auto 20.5 % (20-40); Mean Corpuscular HGB Conc 35.4 g/dl (31.0-36.0); Mean Corpuscular Hemoglobin 29.9 pg (27.0-33.0); Mean Corpuscular Volume 84.3 fL (80.0-98.0); Mean Platelet Volume 10.9 fL (9.4-12.4); Monocytes Absolute Auto 0.6 X10*3/uL (0.1-1.2); Monocytes Percent Auto 8.6 % (2-11); Neutrophils Absolute Auto 4.8 x10*3/uL (2.0-8.3); Neutrophils Percent Auto 70.3 % (45-73); Platelet Count 121 X10*3/uL (160-400); Red Blood Count 5.36 X10*6/uL (4.60-5.80); Red Cell Distribution Width 13.1 % (11.0-16.0); White Blood Count 6.9 X10*3/uL (4.8-10.8)
== END 2024-10-29 09:01 | disposition home or self-care (01) ==
LOC: HO.LABR 09:00
PROVIDERS: PCP Internal Medicine; Visit Provider Psychiatry & Neurology Psychiatry
DX: F25.0 Schizoaffective disorder, bipolar type (principal)
CPT/HCPCS: 36415; 85025

== ENCOUNTER 2024-10-31 13:08 | Outpatient (AMB) | payer OTHER, SELFPAY ==
--- NOTE | 2024-10-31 13:24 | A.OFFVIS_ITS ---
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 Required: No Accompanied by: Self / Same As Patient Allergies No Known Allergies [No Known Allergies*] Allergy (Verified 10/04/24 09:53) HPI Comprehensive Diabetes Asmnt Most Recent Diabetes Results: Microalb/Creat Ratio TNP 07/19/24 Cholesterol 162 mg/dL (<200) 07/19/24 HDL Cholesterol 34 mg/dL (>40) L 07/19/24 Triglycerides 247 mg/dL (<150) H 07/19/24 Creatinine 1.31 mg/dL (0.5-1.4) 07/19/24 Blood Urea Nitrogen 14 mg/dL (9-16) 07/19/24 Sodium 144 mmol/L (135-145) 07/19/24 Potassium 3.9 mmol/L (3.3-5.1) 07/19/24 Chloride 108 mmol/L (96-108) 07/19/24 Carbon Dioxide 25 mmol/L (22-29) 07/19/24 Calcium 10.0 mg/dL (8.4-10.2) 07/19/24 AST 41 U/L (5-37) H 07/19/24 ALT 84 U/L (0-40) H 07/19/24 Total Protein 7.6 g/dL (6.5-8.0) 07/19/24 Albumin 4.4 g/dL (3.5-5.0) 07/19/24 [facility] Medical History Impacted cerumen, right ear Acute diarrhea Pain in both feet Calcaneal spur of right foot Achilles tendinitis Callus of foot Right hand pain Abdominal bloating Vertigo Calcaneal spur Colon cancer screening COVID-19 Pre-op examination Elevated LFTs Encounter for Medicare annual wellness exam Bowel obstruction Melena Knee pain, bilateral Gastroenteritis Healed wound Chronic idiopathic constipation Chronic idiopathic constipation Hospital discharge follow-up Knee osteoarthritis Obesity (BMI 30-39.9) Schizoaffective disorder Pure hypercholesterolemia Benign essential hypertension Chronic kidney disease (CKD), stage III (moderate) Type 2 diabetes mellitus with diabetic chronic kidney disease Morbid obesity Dyslipidemia 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 mellitus residential (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 Diabetic polyneuropathy associated with 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 mellitus Schizo affective schizophrenia Diabetes type 2, uncontrolled Surgical History History of repair of congenital cleft palate Hx of circumcision Family History Father HTN (hypertension) Mother Diabetes Other Mental health problem Social History Household Members: None Housing: Apartment Are you a primary managed care manager to a significant other at home: No Do you presently have visiting nurse or other home services: Yes Alcohol intake: former Patient Tobacco Use Status: Former Tobacco user Tobacco use type: Cigarette Cigarettes Per Day: 15 Years Smoked: 8 quit 30 years ago e-Cigarette/Vaping Use: Never Used Second Hand Smoke Exposure: No service: No Current occupational status: employed Current occupation: Home [employer] Cognitive needs: No Hearing needs: No Vision needs: Yes (glasses) Assessment & Plan Assessment & Plan (1) Type 2 diabetes mellitus with diabetic chronic kidney disease: Code(s): E11.22 - Type 2 diabetes mellitus with diabetic chronic kidney disease Qualifiers: Diabetes mellitus prison insulin use: with watermelon harvesting supervisor use Chronic kidney disease stage: stage 3 (moderate) Chronic kidney disease stage 3 subtype: unspecified whether 3a or 3b Qualified Code(s): E11.22 - Type 2 diabetes mellitus with diabetic chronic kidney disease; N18.30 - Chronic kidney disease, stage 3 unspecified; Z79.4 - residential (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 Plan: Patient at visit to set up an [employer] 3+ with [place] 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 He says he walks consistently throughout the parking lot, when he comes home in the morning he notices a drop in his glucose levels. We discussed how the physical activity can decrease glucose levels Patient reports he is currently on Tresiba 30 units daily Patient uses glucometer to 2 up to 7 times daily Instructed patient sensors water proof you can shower, or swim do not submerge sensor in water for over 30 minutes Is sensor falls off cannot put back in you need to replace sensor, customer service number given to patient for sensor replacement Sensor placed on the back of Left arm Patient left visit with sensor in warmup Reviewed how to interpret trend arrows Reminded patient that to check finger sticks if symptoms do not match sensor reading. Discussed lag time between finger stick and sensor data.? Instructed patient she should always keep blood glucometer for backup testing if needed Reviewed delay of CGM from fingersticks Reminded pt that if symptoms do not match sensor still needs to check fingersticks. Patient reports that he feels he will be able to change sensor in 15 days, instructed patient if he needs assistance contact clinical document improvement educator. Patient agreed to make appointment to review glucose in 3 weeks Portions of this note were created using voice recognition software, please excuse any words or phrases that may have been misinterpreted. Patient Instructions: Patient instruction: CGM provides information on blood glucose control throughout the day, including hyperglycemia and hypoglycemia. ? Continue to monitor blood glucose as instructed. Follow nutrition guidelines provided. Report any discomfort promptly to health care provider. ?Stay well-hydrated. You can bathe ,shower, swim and exercise while wearing the glucose sensor. Do not submerge glucose sensor in water for more than 30 minutes. Coding Level of Care Code Est Pt Level 1 (54136) Diagnoses Type 2 diabetes mellitus with stage 3 chronic kidney disease, with long-term current use of insulin, unspecified whether stage 3a or 3b CKD E11.22; N18.30; Z79.4 Diabetes mellitus prison insulin use: with prison use Chronic kidney disease stage: stage 3 (moderate) Chronic kidney disease stage 3 subtype: unspecified whether 3a or 3b
== END 2024-10-31 14:37 | disposition home or self-care (01) ==
LOC: HO.ENCR 13:08
PROVIDERS: PCP Internal Medicine; Visit Provider Registered Nurse Diabetes Educator
DX: E11.22 Type 2 diabetes mellitus with diabetic chronic kidney disease (principal); N18.30 Chronic kidney disease, stage 3 unspecified; Z79.4 Long term (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

== ENCOUNTER 2024-10-31 13:08 | Outpatient (AMB) | payer OTHER, SELFPAY ==
--- NOTE | 2024-10-31 08:57 | A.OFFVIS_ITS ---
Vital Signs 10/31/24 13:36 Height 6 ft 1 in Weight 275 lb 9.245 oz BMI 36.4 BP 119/82 Blood Pressure Location Rt brachial Position Sitting Pulse 86 Pulse Source Pulse Oximeter Pulse Oximetry (%) 98 Oxygen Delivery Method Room Air Intake Visit Reasons: T2DM Intake Note: Patient presents today for a follow-up on for Type 2 Diabetes Mellitus: Last Diabetic eye exam was on: 08/08/2024, [facility]. Last Podiatry exam was on: 08/30/2024, Shahid Proposal Director Most recent HbA1c: 7.8% 10/31/2024 Random Glucose- 247 mg/dL, Today Marking Room Supervisor Required: No Accompanied by: Self / Same As Patient Allergies No Known Allergies [No Known Allergies*] Allergy (Verified 10/04/24 09:53) ON LICENSE OF [facility] Medical History Impacted cerumen, right ear Acute diarrhea Pain in both feet Calcaneal spur of right foot Achilles tendinitis Callus of foot Right hand pain Abdominal bloating Vertigo Calcaneal spur Colon cancer screening COVID-19 Pre-op examination Elevated LFTs Encounter for Medicare annual wellness exam Bowel obstruction Melena Knee pain, bilateral Gastroenteritis Healed wound Chronic idiopathic constipation Chronic idiopathic constipation Hospital discharge follow-up Knee osteoarthritis Obesity (BMI 30-39.9) Schizoaffective disorder Pure hypercholesterolemia Benign essential hypertension Chronic kidney disease (CKD), stage III (moderate) Type 2 diabetes mellitus with diabetic chronic kidney disease Morbid obesity Dyslipidemia 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 mellitus correction (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 Diabetic polyneuropathy associated with 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 mellitus Schizo affective schizophrenia Diabetes type 2, uncontrolled Surgical History History of repair of congenital cleft palate Hx of circumcision Family History Father HTN (hypertension) Mother Diabetes Other Mental health problem Social History Household Members: None Housing: Apartment Are you a primary restorative care technician to a significant other at home: No Do you presently have visiting nurse or other home services: Yes Alcohol intake: former Patient Tobacco Use Status: Former Tobacco user Tobacco use type: Cigarette Cigarettes Per Day: 15 Years Smoked: 8 quit 30 years ago e-Cigarette/Vaping Use: Never Used Second Hand Smoke Exposure: No service: No Current occupational status: employed Current occupation: [employer] Cognitive needs: No Hearing needs: No Vision needs: Yes (glasses) Physical Exam Vital Signs: Last Vital Signs Pulse 86 10/31/24 13:36 BP 119/82 10/31/24 13:36 Pulse Ox 98 10/31/24 13:36 Oxygen Delivery Method Room Air 10/31/24 13:36 BMI result Body Mass Index 36.4 Results AMB Hemoglobin A1c AMB Hemoglobin A1c 7.8 % Last Edit by VAELNTINO Londono on 10/31/24 13:50 Results Reviewed Results Reviewed: Laboratory Last Values Glucose (Clinic) 247 mg/dL (60-115) H 10/31/24 13:38 Hgb A1c (Clinic) 7.8 % (4.0-6.0) H 10/31/24 13:50 Assessment & Plan Assessment & Plan Orders: Orders AMB Hemoglobin A1c 10/31/24 E11.22 - Type 2 diabetes mellitus with diabetic chronic kidney disease, N18.30 - Chronic kidney disease, stage 3 unspecified, Z79.4 - 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 Medications: Changed From Tresiba FlexTouch U-200 (insulin degludec) 30 units (0.15 mL) subcut DAILY 90 days 9 mL 3RF NS E11.42 - Type 2 diabetes mellitus with diabetic polyneuro eloisa To Tresiba FlexTouch U-200 (insulin degludec) 36 units (0.18 mL) subcut DAILY 90 days 18 mL 3RF NS E11.42 - Type 2 diabetes mellitus with diabetic polyneuropathy Refilled Tresiba FlexTouch U-200 (insulin degludec) 36 units (0.18 mL) subcut DAILY 90 days 18 mL 3RF NS E11.42 - Type 2 diabetes mellitus with diabetic polyneuropathy Coding
[2024-10-31 13:36] VITALS: BP 119/82; PULSE 86; O2SAT 98; BMI 36.4
[2024-10-31 13:52] LABS: Glucose, Whole Blood 247 mg/dL (60-115)
--- OUTSIDE RECORDS SUMMARY | 2024-10-31 15:39 | XMS_ITS ---
Author [facility] Address [address] [facility] [place] [address] Care Team Providers Care Director Of Convention Services Name Role Phone Luis Manuel Garcia MD Primary Care Provider Tu Ch Unavailable [phone] Allergies No Known Allergies REASON FOR VISIT [...] Problem Acquired hammer toe of right foot (9633896315102 105) Other hammer toe(s) (acquired), right foot (M20.41) Active confirmed Problem Acquired hammer toe of left foot (2626289665523 103) Other hammer toe(s) (acquired), left foot (M20.42) Active confirmed Vital Signs Height 6ft in 08/30/2024 Weight 270 lbs 08/30/2024 BMI 36.61 kg/m2 08/30/2024 Blood pressure systolic 130 mm Hg 08/30/19 25 Blood pressure diastolic 80 mm Hg 025 Procedures Procedure Date Ordered Date Performed Result Body Sit e 24608-GDIMZPW NAIL, 6 OR MORE 08/30/2024 N/A 77795-YWQG SKIN LESIONS, 2 TO 4 08/30/2024 N/A Encounters Encounter Location Date Provider Diagnosis [facility] [address] [address] 08/30/2024 Tu Gabby Pain in right toe(s) [...] INSTRUCTIONS.pdf) Pending Test Test Name Order Date 11164-GZPAVAG NAIL, 6 OR MORE 08/30/2024 49006-NIGZ SKIN LESIONS, 2 TO 4 08/30/19 25 [...] use of a nail nipper and/or dremel-type grinder setup operator, to a more viable healthy nail [...] instrumentation by the physician of record - 07712 Progress Notes * Mike BAIRDDOB:[birth year] (63 yo M)Acc No.[id number]:08/30/2024 Progress Note Patient:Mike PLUNKETT Provider:?Tu Pierre DPM :1960???Age:63 Y???Sex:Male Taurus e:08/30/2024 Address:[address] [place] [address] Dr, [place], [place] Pcp:Luis Manuel Garcia MD Subjective: * Chief [...] 7.0 * Examination: ???Ophthalmology Referral: ?DIABETES EYE EXAM?Procedure Performed:?Yes ?Date of Exam Performed?06/07/2024 ?Findings of Diabetic Eye Exam:?no retinopathy?Nails: ?NAILS are:?Elongated, overgrown, dystrophic, lytic, greater than [...] for office visit today.?ORIENTED:?person, place, and time.?FOOT EXAM:?Lower Extremity Neurological Exam performed:?Yes ?Visual exam of foot performed:?Yes ?Date?08/30/2024 ?Footwear Evaluation?Footwear Evaluation performed:?Yes??? Assessment: * Assessment: 1.?Pain in right toe(s) - M7 9.674???2.?Tinea unguium - B35.1 (Primary)???3.?Pain in left toe(s) - M79.675???4.?Type 2 diabetes mellitus without complication - E11.9???5.?Other hammer toe(s) (acquired), right foot - M20.41???Specify :Chronic problem, Worse (4),Rx Management (4)???6.?Other hammer toe(s) (acquired), left foot - M20.42???Specify :Chronic problem, Worse (4),Rx Management (4)??? Plan: * Treatment: 2.?Type 2 diabetes mellitus without complication?Procedure: 99172-JPLH SKIN LESIONS, 2 TO 4 3.?Other hammer [...] use of a nail nipper and/or dremel-type grinder setup operator, to a more viable healthy nail [...] to maintain effectiveness in symptomatic relief - 39800.?Keratoma Treatment:?Parring or Cutting of Benign Hyperkeratotic Lesion(s)?(-56) [...] instrumentation by the physician of record - 95911.? * Procedure Codes:?26833 DEBRI DE NAIL, 6 OR MORE, Modifiers: XS 55998 TRIM SKIN LESIONS, 2 TO 4, Modifiers: [...] status: Completed true * Provider:?Tu Pierre DPM Date:?2024 Generated for Ruthy wood/Garrison/Harvey on:?10/31/2024 03:39 PM EDT History and Physical Notes * HPI (History [...]
--- OUTSIDE RECORDS SUMMARY | 2024-10-31 15:40 | XMS_ITS ---
Author Organization [facility] Address [address] [place] [address] Care Team Providers Care Agricultural Loan Officer Name Role Phone Manny Garcia MDneth Primary Care Provider Unava ilable Tu Pierre Unavailable [phone] REASON FOR VISIT Last A1C Encounters Encounter Location Date Provider Diagnosis [facility] [address] [place] [address] 09/03/2024 Tu Pierre Plan Of Treatment No Information Progress Notes * Mike BAIRDDOB:[birth year] (63 yo M)Acc No.[id number]:09/03/2024 Patient:?Mike BAIRD :1960???Age:63 Y???Sex:Male Address:[address] [place], [address] * true * Date:? Generated for Tashi israel/Garrison/eTransmitting on:?10/31/2024 03:39 PM EDT
--- OUTSIDE RECORDS SUMMARY | 2024-10-31 15:40 | XMS_ITS ---
Author Organization [facility] Address [address] [place] [address] Care Team Providers Care Sales Floor Team Member Name Role Phone Manny Garcia MDneth Primary Care Provider Unava ilable Tu Pierre Unavailable [phone] REASON FOR VISIT cx 11/15 Encounters Encounter Location Date Provider Diagnosis [facility] [address] [place] [address] 10/01/2024 Tu Pierre Plan Of Treatment No Information Progress Notes * Mike BAIRDDOB:[birth year] (63 yo M)Acc No.[id number]:10/01/2024 Patient:?Mike BAIRD :1960???Age:63 Y???Sex:Male Address:[address] [place], [address] * true * Date:? Generated for Printi israel/Garrison/eTransmitting on:?10/31/2024 03:39 PM EDT
--- OUTSIDE RECORDS SUMMARY | 2024-10-31 15:40 | XMS_ITS | Patient Health Record ---
Author Organization [facility] [place] Address [address] [facility] [address] Care Team Providers Care Child Study Team Director Name Role Phone Jose RENAE, Luis Manuel Primary Care Provider UnaTu Paul Unavailable [phone] Allergies No Known Allergies Results Component Value [...] Problem Acquired hammer toe of right foot (063233731587102 5) Other hammer toe(s) (acquired), right foot (M20.41) Active confirmed Problem Acquired hammer toe of left foot (250052797292584 3) Other hammer toe(s) (acquired), left foot (M20.42) Active confirmed Problem Type 2 diabetes mellitus without complication (274803567) Type 2 diabetes mellitus without complication (E11.9) Active confirmed Vital Signs Blood pressure diastolic 80 mm Hg 08/30/2024 Height 6ft in 08/30/2024 Blood pressure systolic 130 mm Hg 08/30/2024 Weight 270 lbs 08/30/2024 BMI 36.61 kg/m2 08/30/2024 Procedures Procedure Date Ordered Date Performed Result Body Sit e 12626-QBWSVIC NAIL, 6 OR MORE 03/08/2024 N/A 13602-Kpulolpf Plate 03/08/2024 N/A 73522-STIL SKIN LESIONS, 2 TO 4 03/08/2024 N/A 72588-LGSNKUI NAIL, 6 OR MORE 06/21/2024 N/A 56507-AVJY SKIN LESIONS, 2 TO 4 06/21/2024 N/A 19442-ATPBHVZ NAIL, 6 OR MORE 08/30/2024 N/A 98199-LAEX SKIN LESIONS, 2 TO 4 08/30/2024 N/A Encounters Encounter Location Date Provider Diagnosis [facility] [address] [place] [address] 03/08/2024 Tu Pierre Tinea unguium B35.1 ; [...] without complication E11.9 and Ingrown nail L60.[address] [address] 06/21/2024 Tu Pierre Tinea unguium B35.1 ; Pain in right toe(s) M79.674 ; Pain in left toe(s) M79.675 ; Achilles tendinitis of right lower extremity M76.61 and Type 2 diabetes mellitus without complication E11.[address] [address] 08/30/2024 Tu Pierre Pain in right toe(s) M79.674 ; Tinea unguium B35.1 ; Pain in left toe(s) M79.675 ; Type 2 diabetes mellitus without complication E11.9 ; Other hammer toe(s) (acquired), right foot M20.41 and Other hammer toe(s) (acquired), left foot M20.[address] [address] 01/04/2024 Tu Pierre [address] [address] 04/17/2024 Tu Pierre [address] [address] 09/03/2024 Tu Pierre [address] [address] 10/01/2024 Tu Pierre Assessments Encounter Date Diagnosis [...] X ray : Foot, right 3V 03/08/2024 10316-AOYNTHS NAIL, 6 OR MORE 03/08/2024 15288-TIALDJU NAIL, 6 OR MORE 06/21/2024 41700-QZZJMZO NAIL, 6 OR MORE 08/30/2024 81042-Jlioflbl Plate 03/08/2024 25388-SZSM SKIN LESIONS, 2 TO 4 03/08/20 24 73783-SIKM SKIN LESIONS, 2 TO 4 08/30/19 25 17781-ETHO SKIN LESIONS, 2 TO 4 06/21/20 Insurance Providers Payer Name Payer Address Payer Phone Subscriber Number Group Number Insured Name Patient Relationship to Insured Coverage Start Date Coverage End Date we [facility] S[employer] Claims [address] [place] [address] [phone] [id number] Mike Cornejo Self - patient is the insured Medical (General) History Medical History History ICD Code Diabetic Surgical History Surgery Date(Month/Year)
== END 2024-10-31 14:42 | disposition home or self-care (01) ==
LOC: HO.ENCR 13:08
PROVIDERS: PCP Internal Medicine; Visit Provider Nurse Practitioner Adult Health
DX: E11.22 Type 2 diabetes mellitus with diabetic chronic kidney disease (principal); N18.30 Chronic kidney disease, stage 3 unspecified; Z79.4 Long term (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

== ENCOUNTER → 2024-10-31 13:08 | Outpatient (BNVA) | payer OTHER, SELFPAY | PROVIDERS: PCP Internal Medicine; Visit Provider Nurse Practitioner Adult Health | DX: E11.22 Type 2 diabetes mellitus with diabetic chronic kidney disease (principal); N18.30 Chronic kidney disease, stage 3 unspecified; Z79.4 Long term (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 | CPT/HCPCS: 82947; 83036; 99211; 99212 ==

== ENCOUNTER 2024-11-14 12:28 | Outpatient (AMB) | payer OTHER, SELFPAY ==
--- NOTE | 2024-11-14 12:31 | A.OFFVIS_ITS ---
Vital Signs 11/14/24 12:32 Height 6 ft 1 in Weight 275 lb 9.245 oz BMI 36.4 BP 118/70 Blood Pressure Location Rt brachial Position Sitting Pulse 96 Pulse Source Pulse Oximeter Pulse Oximetry (%) 98 Oxygen Delivery Method Room Air Intake Visit Reasons: T2DM Intake Note: Patient presents today for a follow-up on for Type 2 Diabetes Mellitus: Last Diabetic eye exam was on: 08/08/2024, [facility] 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 He was last seen one month ago. Patient had been previously seen by endo Clinic but was last seen 10/27/2021 at which time his A1C was in good range. Hgb A1C 07/19/24 7.5% 01/2022 6.3% He has hypoglycemia unawareness and per last endocrine note limited insight into his diabetes. Previous medication: Trulicity stopped due to GI symptoms: abd pain and bloating which resolved after med was discontinued. Diabetes medications: Tresiba U200 36 units in the am Jardiance 25mg metformin 1,000mg BID Uses a glucometer average 210 readings lower in normal range later in the day occasional low if he skips breakfast No retinopathy: Ophthalmology evaluation: 07/2024 [facility] He reports his eyes get dry at times. Has neuropathy on gabapentin: reported: denies numbness, tingling, cramping in lower extremities [facility] he will schedule an appt Has Nephropathy:eGFR 56 07/19/24 microalbumin: Less than 5.0 Has HLD on statin last ldl 79 07/2024 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: occurs after work when has not eaten all day. None on current monitor Hyperglycemia: occasional urinary frequency, + nocturia 3-5x, +polydypsia Diet: Breakfast: coffee and egg sandwich Lunch: hamburger Dinner: turkey, cheese sandwich with macaroni salad, diet soda , Snacks: banana or 0 sugar candy , Drinks throughout day: water, coffee Exercise: works at [employer] 16-18 hours a week. Frequently walks No recent Milana Snell CDE or Lili Julian RD appointments Followed by GI medicine for idiopathic constipation [facility] Medical History Impacted cerumen, right ear Acute diarrhea Pain in both feet Calcaneal spur of right foot Achilles tendinitis Callus of foot Right hand pain Abdominal bloating Vertigo Calcaneal spur Colon cancer screening COVID-19 Pre-op examination Elevated LFTs Encounter for Medicare annual wellness exam Bowel obstruction Melena Knee pain, bilateral Gastroenteritis Healed wound Chronic idiopathic constipation Chronic idiopathic constipation Hospital discharge follow-up Knee osteoarthritis Obesity (BMI 30-39.9) Schizoaffective disorder Pure hypercholesterolemia Benign essential hypertension Chronic kidney disease (CKD), stage III (moderate) Type 2 diabetes mellitus with diabetic chronic kidney disease Morbid obesity Dyslipidemia 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 Diabetic polyneuropathy associated with 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 mellitus Schizo affective schizophrenia Diabetes type 2, uncontrolled Surgical History History of repair of congenital cleft palate Hx of circumcision Family History Father HTN (hypertension) Mother Diabetes Other Mental health problem Social History Household Members: None Housing: Apartment Are you a primary housekeeper caregiver to a significant other at home: No Do you presently have visiting nurse or other home services: Yes Alcohol intake: former Patient Tobacco Use Status: Former Tobacco user Tobacco use type: Cigarette Cigarettes Per Day: 15 Years Smoked: 8 quit 30 years ago Smoked in Last 30 Days: No e-Cigarette/Vaping Use: Never Used Second Hand Smoke Exposure: No Use of substances other than those prescribed or required for medical reasons: No Advance Directives: No Advance Directives Information Provided: Yes service: No Current occupational status: employed Current occupation: [employer] Cognitive needs: No Hearing needs: No Vision needs: Yes (glasses) Physical Exam Vital Signs: Last Vital Signs Pulse 96 11/14/24 12:32 BP 118/70 11/14/24 12:32 Pulse Ox 98 11/14/24 12:32 Oxygen Delivery Method Room Air 11/14/24 12:32 BMI result Body Mass Index 36.4 Const Other: Absence of Cushingoid features. Affect flat. Absence of acromegalic features. Neck exam reveals nl size thyroid about 15 gms. No thyroid nodules palpable. Heart S1 S2, Reg R/R. No M/R G. Skin exam reveals absence of vitiligo or acanthosis nigricans. 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 This is above his target but he declines to make an adjustment to his insulin upward despite recommendations. SHIMA ordered to rule out PVD The patient had an opportunity to ask questions regarding treatment plan. The patient expressed understanding and agreement with the above treatment plan. The patient is aware they should contact our office by phone for worsening glucose readings or for any low blood sugars which may warrant a change in diabetes medication. Compliance is encouraged with medications and any followup testing/consults which may have been ordered. Orders: Orders US SHIMA complete 11/14/24 I73.9 - Peripheral vascular disease, unspecified Patient Instructions: Take 15 carb carbohydrate grams to treat a low sugar (3-4 glucose tablets, half a glass of juice or 15 carbohydrate grams of soft candy such as gummie snacks). Recheck your sugar in 15 minutes and re-treat again with 15 carbohydrate grams if low or still with symptoms. Do not drive a car or operate machinery if you do not know what your blood sugar is, if it is low or in excess of 300. The patient was counseled to achieve a target A1C of 7% (154 avg). Fasting blood sugars should be 90-130 in the morning and less than 180 two hours after meals. Reviewed the relationship between poor diabetic control and the development of complications. Check your feet daily looking for any signs of infection, drainage, redness, ulceration and seek medical attention if this occurs. Break in shoes gradually and do not wear open-toed shoes or walk stocking footed or barefooted. Coding Level of Care Code Est Pt Level 4 (89628) Complex EM visit Add On G2211 Diagnoses Type 2 diabetes mellitus with stage 3 chronic kidney disease, with long-term current use of insulin, unspecified whether stage 3a or 3b CKD E11.22; N18.30; Z79.4 Diabetes mellitus prison insulin use: with prison use Chronic kidney disease stage: stage 3 (moderate) Chronic kidney disease stage 3 subtype: unspecified whether 3a or 3b Time Spent (min) 30 Comment Time spent reviewing labs/provider notes, face to face, chart doc
[2024-11-14 12:32] VITALS: BP 118/70; PULSE 96; O2SAT 98; BMI 36.4
[2024-11-14 12:43] LABS: Glucose, Whole Blood 286 mg/dL (60-115)
--- OUTSIDE RECORDS SUMMARY | 2024-11-14 13:33 | XMS_ITS ---
Author Organization [facility] Address [address] [facility] [place] [address] Care Team Providers Care Turning And Beading Machine Operator Name Role Phone Luis Manuel Garcia MD Primary Care Provider Tu Ch Unavailable [phone] Allergies No Known Allergies REASON FOR VISIT [...] Problem Acquired hammer toe of right foot (6260940707158 105) Other hammer toe(s) (acquired), right foot (M20.41) Active confirmed Problem Acquired hammer toe of left foot (7684560168687 103) Other hammer toe(s) (acquired), left foot (M20.42) Active confirmed Vital Signs Height 6ft in 08/30/2024 Weight 270 lbs 08/30/2024 BMI 36.61 kg/m2 08/30/2024 Blood pressure systolic 130 mm Hg 08/30/19 25 Blood pressure diastolic 80 mm Hg 025 Procedures Procedure Date Ordered Date Performed Result Body Sit e 17894-QWKQYOR NAIL, 6 OR MORE 08/30/2024 N/A 59207-MJVQ SKIN LESIONS, 2 TO 4 08/30/2024 N/A Encounters Encounter Location Date Provider Diagnosis [facility] [address] [address] 08/30/2024 Tu Gabby Pain in right toe(s) [...] INSTRUCTIONS.pdf) Pending Test Test Name Order Date 64928-IUXPHEJ NAIL, 6 OR MORE 08/30/2024 58281-KFZL SKIN LESIONS, 2 TO 4 08/30/19 25 [...] use of a nail nipper and/or dremel-type tool and cutter grinder, to a more viable healthy nail [...] instrumentation by the physician of record - 48200 Progress Notes * Mike BAIRDDOB:[birth year] (63 yo M)Acc No.[id number]:08/30/2024 Progress Note Patient:Mike PLUNKETT Provider:?Tu Pierre DPM :1960???Age:63 Y???Sex:Male Taurus e:08/30/2024 Address:[address] [place] [address] Dr, [place], [place] Pcp:Luis Manuel Garcia MD Subjective: * Chief [...] Treatment: 2.?Type 2 diabetes mellitus without complication?Procedure: 32882-AEWJ SKIN LESIONS, 2 TO 4 3.?Other hammer [...] use of a nail nipper and/or dremel-type tool and cutter grinder, to a more viable healthy nail [...] to maintain effectiveness in symptomatic relief - 73392.?Keratoma Treatment:?Parring or Cutting of Benign Hyperkeratotic Lesion(s)?(-56) [...] instrumentation by the physician of record - 44824.? * Procedure Codes:?81005 DEBRI DE NAIL, 6 OR MORE, Modifiers: XS 95473 TRIM SKIN LESIONS, 2 TO 4, Modifiers: [...] Pierre DPM Date:?2024 Generated for Ruthy wood/Garrison/Harvey on:?11/14/2024 01:33 PM EDT History and Physical Notes * [...] (-) Charcot col lapse/destruction noted at [facility] FOOTWEAR EVALUATION: worn, non-supportiv e, shoe gear properties exacerbate patients foot/toe deformity [...]
--- OUTSIDE RECORDS SUMMARY | 2024-11-14 13:34 | XMS_ITS | Patient Health Record ---
Author Organization [facility] [place] Address [address] [facility] [place] [address] Care Team Providers Care Geospatial Image Analyst Name Role Phone Jose RENAE, Luis Manuel Primary Care Provider UnaTu Paul Unavailable [phone] Allergies No Known Allergies Results Component Value [...] Problem Acquired hammer toe of right foot (032304257479855 5) Other hammer toe(s) (acquired), right foot (M20.41) Active confirmed Problem Acquired hammer toe of left foot (544002585364845 3) Other hammer toe(s) (acquired), left foot (M20.42) Active confirmed Problem Type 2 diabetes mellitus without complication (505509012) Type 2 diabetes mellitus without complication (E11.9) Active confirmed Vital Signs Blood pressure diastolic 80 mm Hg 08/30/2024 Height 6ft in 08/30/2024 Blood pressure systolic 130 mm Hg 08/30/2024 Weight 270 lbs 08/30/2024 BMI 36.61 kg/m2 08/30/2024 Procedures Procedure Date Ordered Date Performed Result Body Sit e 23516-XDNQKCZ NAIL, 6 OR MORE 03/08/2024 N/A 19059-Xsvqyfmr Plate 03/08/2024 N/A 08513-VBST SKIN LESIONS, 2 TO 4 03/08/2024 N/A 22797-BRBCXZM NAIL, 6 OR MORE 06/21/2024 N/A 57694-HBJN SKIN LESIONS, 2 TO 4 06/21/2024 N/A 49997-EFTZMSO NAIL, 6 OR MORE 08/30/2024 N/A 74550-PIBR SKIN LESIONS, 2 TO 4 08/30/2024 N/A Encounters Encounter Location Date Provider Diagnosis [facility] [address] [place] [address] 03/08/2024 Tu Pierre Tinea unguium B35.1 ; [...] without complication E11.9 and Ingrown nail L60.[address] [address] 06/21/2024 Tu Pierre Tinea unguium B35.1 ; Pain in right toe(s) M79.674 ; Pain in left toe(s) M79.675 ; Achilles tendinitis of right lower extremity M76.61 and Type 2 diabetes mellitus without complication E11.[address] [address] 08/30/2024 Tu Pierre Pain in right toe(s) M79.674 ; Tinea unguium B35.1 ; Pain in left toe(s) M79.675 ; Type 2 diabetes mellitus without complication E11.9 ; Other hammer toe(s) (acquired), right foot M20.41 and Other hammer toe(s) (acquired), left foot M20.[address] [address] 01/04/2024 Tu Pierre [address] [address] 04/17/2024 Tu Pierre [address] [address] 09/03/2024 Tu Pierre [address] [address] 10/01/2024 Tu Pierre Assessments Encounter Date Diagnosis [...] X ray : Foot, right 3V 03/08/2024 70281-OUVYESS NAIL, 6 OR MORE 03/08/2024 86670-JABVZND NAIL, 6 OR MORE 06/21/2024 05573-SZBDSIE NAIL, 6 OR MORE 08/30/2024 89983-Mfeejyof Plate 03/08/2024 76585-JOFE SKIN LESIONS, 2 TO 4 03/08/20 24 62872-MFSC SKIN LESIONS, 2 TO 4 08/30/19 25 64774-KOZS SKIN LESIONS, 2 TO 4 06/21/20 Insurance Providers Payer Name Payer Address Payer Phone Subscriber Number Group Number Insured Name Patient Relationship to Insured Coverage Start Date Coverage End Date we [facility] [employer] Claims [address] [place] [phone] [id number] Mike Cornejo Self - patient is the insured Medical (General) History Medical History History ICD Code Diabetic Surgical History Surgery Date(Month/Year)
--- OUTSIDE RECORDS SUMMARY | 2024-11-14 13:34 | XMS_ITS ---
Author Organization [facility] Address [address] [place] [address] Care Team Providers Care Cement Sack Breaker Name Role Phone Manny Garcia MDneth Primary Care Provider Unava ilable Tu Pierre Unavailable [phone] REASON FOR VISIT cx 11/15 Encounters Encounter Location Date Provider Diagnosis [facility] [address] [place] [address] 10/01/2024 Tu Pierre Plan Of Treatment No Information Progress Notes * Mike BAIRDDOB:[birth year] (63 yo M)Acc No.[id number]:10/01/2024 Patient:?Mike BAIRD :1960???Age:63 Y???Sex:Male Address:[address] [place], [address] * true * Date:? Generated for Printi israel/Garrison/eTransmitting on:?11/14/2024 01:33 PM EDT
--- OUTSIDE RECORDS SUMMARY | 2024-11-14 13:34 | XMS_ITS ---
Author Organization [facility] Address [address] [place] [address] Care Team Providers Care Corporate Vp Advertising & Online Name Role Phone Manny Garcia MDneth Primary Care Provider Unava ilable Tu Pierre Unavailable [phone] REASON FOR VISIT Last A1C Encounters Encounter Location Date Provider Diagnosis [facility] [address] [place] [address] 09/03/2024 Tu Pierre Plan Of Treatment No Information Progress Notes * Mike BAIRDDOB:[birth year] (63 yo M)Acc No.[id number]:09/03/2024 Patient:?Mike BAIRD :1960???Age:63 Y???Sex:Male Address:[address] [place], [address] * true * Date:? Generated for Tashi israel/Garrison/eTransmitting on:?11/14/2024 01:33 PM EDT
== END 2024-11-14 13:07 | disposition home or self-care (01) ==
LOC: HO.ENCR 12:28
PROVIDERS: PCP Internal Medicine; Visit Provider Nurse Practitioner Adult Health
DX: E11.22 Type 2 diabetes mellitus with diabetic chronic kidney disease (principal); N18.30 Chronic kidney disease, stage 3 unspecified; Z79.4 Long term (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
CPT/HCPCS: 99214; G2211

== ENCOUNTER → 2024-11-14 12:28 | Outpatient (BNVA) | payer OTHER, SELFPAY | PROVIDERS: PCP Internal Medicine; Visit Provider Nurse Practitioner Adult Health | DX: E11.40 Type 2 diabetes mellitus with diabetic neuropathy, unspecified (principal); E11.51 Type 2 diabetes mellitus with diabetic peripheral angiopathy without gangrene; E11.22 Type 2 diabetes mellitus with diabetic chronic kidney disease; R35.1 Nocturia; R35.0 Frequency of micturition; N18.30 Chronic kidney disease, stage 3 unspecified; Z79.84 Long term (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 of oral hypoglycemic drugs; Z79.4 Long term (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; Z79.899 Other long term (current) drug therapy | CPT/HCPCS: 82947; 99212 ==

== ENCOUNTER 2024-11-15 19:03 | Emergency (ER) | payer OTHER, SELFPAY ==
[2024-11-15 19:55] VITALS: BP 111/75; PULSE 88; RESP 18; TEMP 36.8; O2SAT 96; BMI 37.1
--- NOTE | 2024-11-15 19:59 | ED_ITS ---
HPI - General Adult General Chief complaint: Recheck/Abnormal Lab/Rx Stated complaint: high blood sugar Time Seen by Provider: 11/15/24 23:04 Source: patient Mode of arrival: ambulatory Limitations: no limitations History of Present Illness ED Provider: HPI narrative: Patient is diabetic using Tresiba Jardiance and metformin was seen by distribution center associate yesterday and dosage of Tresiba was increased from 36 units to 38 units patient comes here as patient's blood sugar was 244 earlier today in the ER it was 105 when examined patient's been drinking enough fluids denied any increased carbohydrate asymptomatic at this time says that blood sugar goes high whenever he eats something Related Data Home Medications ?Medication ?Instructions ?Recorded ?Confirmed hydroxyzine pamoate 50 mg capsule 50 mg PO TID PRN Anxiety 09/18/20 08/02/24 benztropine 0.5 mg tablet 0.5 mg PO BID 04/29/22 10/04/24 clozapine 100 mg tablet 100 mg PO TID 05/12/22 10/04/24 hydroxyzine pamoate 25 mg capsule mg PO ONCE 10/04/24 10/04/24 simethicone 180 mg capsule 180 mg PO TID 10/04/24 10/04/24 Previous Rx's ?Medication ?Instructions ?Recorded polyethylene glycol 3350 17 gram 17 g PO BID #30 ea 08/12/22 oral powder packet (Miralax) blood-glucose meter (FreeStyle #1 ea 03/27/23 Lite Meter kit) cholecalciferol (vitamin D3) 25 25 mcg PO DAILY #90 caps 12/21/23 mcg (1,000 unit) capsule ketoconazole 2 % topical cream 1 appl topical DAILY #30 grams 01/01/24 bisacodyl 5 mg tablet,delayed 10 mg (2 x 5 mg) PO BID #90 tabs 01/02/24 release acetaminophen 500 mg tablet 1,000 mg (2 x 500 mg) PO Q6H PRN 01/04/24 pain #30 tabs cyclobenzaprine 10 mg tablet 10 mg PO DAILY PRN muscle spasm 01/04/24 #10 tabs lidocaine 5 % topical patch 1 patch topical DAILY #15 ea 01/04/24 psyllium seed (sugar) oral powder 1 tsp PO BID #1,254 grams 03/07/24 (Metamucil (sugar) oral powder) pen needle, diabetic 29 gauge x #100 ea 04/24/24 1/ (BD Ultra-Fine Original Pen Needle) sildenafil 50 mg tablet 50 mg PO DAILY PRN sexual activity 05/03/24 #10 tabs lancets 28 gauge (FreeStyle #100 ea 05/08/24 Lancets) blood sugar diagnostic (FreeStyle #100 ea 06/15/24 Lite Strips) carbamide peroxide 6.5 % ear drops 5 drp otic (ear) left DAILY 4 days 06/24/24 (Debrox) #15 mL glycerin (adult) 2 supp ID .after shower 06/28/24 constipation #25 ea metoclopramide HCl 10 mg tablet 10 mg PO TID #90 tabs 06/28/24 (Reglan) guaifenesin 200 mg/5 mL oral liquid 400 mg (10 mL) PO Q6H PRN cough 07/01/24 #118 mL magnesium hydroxide 400 mg/5 mL 20 ml PO BEDTIME PRN constipation 07/01/24 oral suspension (Milk of Magnesia) #3,780 mL blood-glucose meter (FreeStyle #1 ea 07/18/24 Lite Meter kit) atorvastatin 10 mg tablet 10 mg PO DAILY #90 tabs 09/16/24 empagliflozin 25 mg tablet 25 mg PO QAM #30 tabs 10/04/24 (Jardiance) blood-glucose sensor (FreeStyle #2 ea 10/09/24 Jody 3 Plus Sensor device) blood-glucose,supervisor policy change clerks,cont #1 ea 10/09/24 (FreeStyle Jody 3 Bloomery) ibuprofen 800 mg tablet 800 mg PO Q8H PRN for pain 30 days 10/17/24 #90 tabs docusate sodium 100 mg capsule 100 mg PO BID #60 caps 10/29/24 metformin 500 mg tablet 1,000 mg (2 x 500 mg) PO BID 90 10/29/24 days #360 tabs methylcellulose (laxative) 500 mg 1,000 mg (2 x 500 mg) PO TID #180 10/29/24 tablet (Fiber Therapy tabs (methylcellulose)) Tresiba FlexTouch U-200 200 36 unit (0.18 mL) subcut DAILY 90 10/31/24 unit/mL (3 mL) subcutaneous pen days #18 mL (insulin degludec) gabapentin 300 mg capsule 300 mg PO BEDTIME 90 days #90 caps 11/01/24 furosemide 20 mg tablet 20 mg PO DAILY #90 tabs 11/10/24 linaclotide 290 mcg capsule 290 mcg PO QAM #30 caps 11/14/24 (Linzess) Allergies Allergy/AdvReac Type Severity Reaction Status Date / Time No Known Allergies Allergy Verified 11/15/24 19:58 [No Known Allergies*] Review of Systems 2 Review of Systems: Yes all other systems are reviewed and are negative [facility] Past Medical History Medical History Impacted cerumen, right ear Acute diarrhea Pain in both feet Calcaneal spur of right foot Achilles tendinitis Callus of foot Right hand pain Abdominal bloating Vertigo Calcaneal spur Colon cancer screening COVID-19 Pre-op examination Elevated LFTs Encounter for Medicare annual wellness exam Bowel obstruction Melena Knee pain, bilateral Gastroenteritis Healed wound Chronic idiopathic constipation Chronic idiopathic constipation Hospital discharge follow-up Knee osteoarthritis Obesity (BMI 30-39.9) Schizoaffective disorder Pure hypercholesterolemia Benign essential hypertension Chronic kidney disease (CKD), stage III (moderate) Type 2 diabetes mellitus with diabetic chronic kidney disease Morbid obesity Dyslipidemia 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 mellitus 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 Diabetic polyneuropathy associated with 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 mellitus Schizo affective schizophrenia Diabetes type 2, uncontrolled Surgical History History of repair of congenital cleft palate Hx of circumcision Family History Family History Father HTN (hypertension) Mother Diabetes Other Mental health problem Social History Social History Household Members: None Housing: Apartment Are you a primary manager of care to a significant other at home: No Do you presently have visiting nurse or other home services: Yes Alcohol intake: former Patient Tobacco Use Status: Former Tobacco user Tobacco use type: Cigarette Cigarettes Per Day: 15 Years Smoked: 8 quit 30 years ago Smoked in Last 30 Days: No e-Cigarette/Vaping Use: Never Used Second Hand Smoke Exposure: No Use of substances other than those prescribed or required for medical reasons: No Advance Directives: No Advance Directives Information Provided: Yes service: No Current occupational status: employed Current occupation: Home [employer] Cognitive needs: No Hearing needs: No Vision needs: Yes (glasses) Physical Exam ED Vital Signs: Vital Signs - 24 hr 11/15/24 19:55 11/15/24 23:11 11/15/24 23:48 Temperature 98.3 F 97.6 F 97.6 F Pulse Rate 88 86 86 Respiratory Rate 18 18 18 Blood Pressure 111/75 98/71 98/71 Pulse Oximetry 96 97 97 Oxygen Delivery Method Room Air Room Air Room Air BMI result Body Mass Index 37.1 Appearance: Alert. Oriented X3. No acute distress. Eyes: PERRLA, No Nystagmus ENT: Pharynx normal. Oral Mucosa moist Neck: Normal inspection. Neck supple. CVS: Normal heart rate and rhythm. Pulses normal. Respiratory: No respiratory distress. Equal air entry bilateral, no wheezing/rales/rhonchi Abdomen: Soft and nontender. Bowel sounds are present, no mass palpable, no CVA tenderness Skin: Skin warm and dry. Normal skin color. Normal skin turgor. Extremities: No lower extremity edema. No calf tenderness Neuro: Oriented X 3. No motor deficit. No sensory deficit.No cerebellar signs , cranial nerves II-XII intact Course Course Course Narrative: RME performed by Jaqui Choi PA-C. Patient is a 64 year old assigned male at presenting to the emergency department with concerns of elevated blood sugar. Patient states that his meter has been running higher lately and he is feeling more thirsty, making him concerned that his sugar is too high. Detailed physical exam and review of systems are deferred to the sliding joint maker. Labs ordered. Patient placed back in the waiting room pending room availability and results. Medical Decision Making Medical Decision Making MDM Narrative: Patient with postprandial hyperglycemia been followed by distribution center associate advised to drink more fluids at this time blood sugar has a improved to 105 patient already has a increased dose of Tresiba from 36 to 38 units advised to follow up with distribution center associate and PCP Lab Data MDM Lab Attestation statement: I reviewed the patient's lab results. 11/15/24 20:09 11/15/24 20:09 Labs: Lab Results 11/15/24 11/15/24 Range/Units 19:57 20:09 WBC 7.4 (4.8-10.8) X10*3/uL RBC 5.01 (4.60-5.80) X10*6/uL Hgb 15.0 (14.0-18.0) g/dl Hct 42.0 (42.0-52.0) % MCV 83.8 (80.0-98.0) fL MCH 29.9 (27.0-33.0) pg MCHC 35.7 (31.0-36.0) g/dl RDW 13.2 (11.0-16.0) % Plt Count 114 L (160-400) X10*3/uL MPV 10.4 (9.4-12.4) fL Immature Gran % (Auto) 0.5 H (0.0-0.4) % Neut % (Auto) 71.2 (45-73) % Lymph % (Auto) 20.9 (20-40) % Randall % (Auto) 7.3 (2-11) % Eos % (Auto) 0.0 (0-4) % Baso % (Auto) 0.1 (0-2) % Lymph # (Auto) 1.6 (1.2-4.9) X10*3/uL Randall # (Auto) 0.6 (0.1-1.2) X10*3/uL Eos # (Auto) 0.0 (0.0-0.4) X10*3/uL Baso # (Auto) 0.0 (0.0-0.2) X10*3/uL Abs Immat Gran (auto) 0.04 H (0.00-0.03) X10*3/uL Absolute Neuts (auto) 5.4 (2.0-8.3) x10*3/uL Absolute Nucleated RBC 0.000 (0.0-0.012) X10*3/uL Nucleated RBC % (auto) 0.0 (0.0-0.2) /100WBC Smear Tech's Comments VERIFIED Sodium 140 (135-145) mmol/L Potassium 4.1 (3.3-5.1) mmol/L Chloride 111 H (96-108) mmol/L Carbon Dioxide 19 L (22-29) mmol/L Anion Gap 14 (12-20) BUN 22 H (9-16) mg/dL Creatinine 1.22 (0.5-1.4) mg/dL Estim Creat Clear Calc 87.8 Estimated GFR > 60 POC Glucose 244 H (60-115) mg/dL Random Glucose 241 H (60-115) mg/dL Calcium 9.2 D (8.4-10.2) mg/dL Magnesium 2.4 (1.6-2.6) mg/dL Total Bilirubin 0.4 (0.0-1.0) mg/dL AST 35 (5-37) U/L ALT 49 H (0-40) U/L Alkaline Phosphatase 153 H (39-117) U/L Total Protein 7.0 (6.5-8.0) g/dL Albumin 4.1 (3.5-5.0) g/dL Discharge Plan Discharge Clinical Impression: Diabetes mellitus with hyperglycemia Patient Disposition: Home, Self-Care Instructions: Diabetic Hyperglycemia (ED) Additional Instructions: Continue to take your insulin, Jardiance and metformin as prescribed Follow up with your distribution center associate Decrease your carbohydrate intake and drink plenty of fluids Prescriptions: No Action (DME) blood-glucose meter [FreeStyle Lite Meter] Kit See Rx Instructions .Route Qty: 1 5RF Rx Instructions: Tests 4 X/day cholecalciferol (vitamin D3) 25 mcg (1,000 unit) capsule 25 mcg PO DAILY Qty: 90 12RF bisacodyl 5 mg tablet,delayed release (DR/EC) 10 mg PO BID Qty: 90 0RF (DME) pen needle, diabetic [BD Ultra-Fine Orig Pen Needle] 29 gauge x 1/2 needle See Rx Instructions .ROUTE DAILY Qty: 100 3RF Rx Instructions: As directed daily (DME) lancets [FreeStyle Lancets] 28 gauge misc See Rx Instructions .Route Qty: 100 4RF Rx Instructions: Tests 5x/day (DME) FreeStyle Lite Strips Strip See Rx Instructions .Route Qty: 100 5RF Rx Instructions: Tests 5X/day metoclopramide HCl [Reglan] 10 mg tablet 10 mg PO TID Qty: 90 6RF glycerin (adult) Suppository 2 supp ID .after shower Qty: 25 6RF magnesium hydroxide [Milk of Magnesia] 400 mg/5 mL suspension 20 ml PO BEDTIME PRN (Reason: constipation) Qty: 3780 6RF (DME) blood-glucose meter [FreeStyle Lite Meter] Kit See Rx Instructions .ROUTE .MEDSUPPLY Qty: 1 0RF Rx Instructions: As directed atorvastatin 10 mg tablet 10 mg PO DAILY Qty: 90 0RF Jardiance 25 mg tablet 25 mg PO QAM Qty: 30 3RF (DME) FreeStyle Jody 3 Bloomery Misc See Rx Instructions .ROUTE .MEDSUPPLY Qty: 1 0RF Rx Instructions: As directed for use with freestyle jody 3+ sensor (DME) FreeStyle Jody 3 Plus Sensor Device See Rx Instructions .ROUTE .MEDSUPPLY Qty: 2 11RF Rx Instructions: every 15 days for continuous use ibuprofen 800 mg tablet 800 mg PO Q8H PRN (Reason: for pain) 30 Days Qty: 90 0RF Rx Instructions: take with food Fiber Therapy (m-cellulose) 500 mg tablet 1,000 mg PO TID Qty: 180 0RF docusate sodium 100 mg capsule 100 mg PO BID Qty: 60 0RF metformin 500 mg tablet 1,000 mg PO BID 90 Days Qty: 360 1RF gabapentin 300 mg capsule 300 mg PO BEDTIME 90 Days Qty: 90 1RF furosemide 20 mg tablet 20 mg PO DAILY Qty: 90 1RF Linzess 290 mcg capsule 290 mcg PO QAM Qty: 30 6RF benztropine 0.5 mg tablet 0.5 mg PO BID Metamucil (sugar) Powder 1 tsp PO BID Qty: 1254 0RF hydroxyzine pamoate 50 mg capsule 50 mg PO TID PRN (Reason: Anxiety) ketoconazole 2 % cream 1 appl topical DAILY Qty: 30 0RF acetaminophen 500 mg tablet 1,000 mg PO Q6H PRN (Reason: pain) Qty: 30 0RF cyclobenzaprine 10 mg tablet 10 mg PO DAILY PRN (Reason: muscle spasm) Qty: 10 0RF lidocaine 5 % adhesive patch,medicated 1 patch topical DAILY Qty: 15 0RF Rx Instructions: leave on most painful area for up to 12 hrs clozapine 100 mg tablet 100 mg PO TID polyethylene glycol 3350 [Miralax] 17 gram powder in packet 17 g PO BID Qty: 30 6RF sildenafil 50 mg tablet 50 mg PO DAILY PRN (Reason: sexual activity) Qty: 10 0RF Rx Instructions: administer 30 minutes to 4 hours before activity Debrox 6.5 % drops 5 drp otic (ear) left DAILY 4 Days Qty: 15 0RF guaifenesin 200 mg/5 mL liquid 400 mg PO Q6H PRN (Reason: cough) Qty: 118 0RF hydroxyzine pamoate 25 mg capsule PO ONCE simethicone 180 mg capsule 180 mg PO TID Tresiba FlexTouch U-200 200 unit/mL (3 mL) insulin pen 36 unit subcut DAILY 90 Days Qty: 18 3RF Interventions: ED Discharge Assessment Last Done: 11/15/24 23:48 Discharge Date/Time: 11/15/24 23:53 Print Language: Danish
[2024-11-15 20:13] LABS: Glucose, Whole Blood 244 mg/dL (60-115)
[2024-11-15 20:20] LABS: Basophils Percent Auto 0.1 % (0-2); Mean Corpuscular HGB Conc 35.7 g/dl (31.0-36.0); Neutrophils Percent Auto 71.2 % (45-73); PLT CLUMP 1; Red Cell Distribution Width 13.2 % (11.0-16.0); SCAN SMEAR FLAG 1
[2024-11-15 20:22] LABS: Imm Gran Abs Auto 0.04 X10*3/uL (0.00-0.03); Imm Gran Pct Auto 0.5 % (0.0-0.4); Lymphocytes Absolute Auto 1.6 X10*3/uL (1.2-4.9); Lymphocytes Percent Auto 20.9 % (20-40); MANUAL DIFF FLAG SCAN; Mean Corpuscular Hemoglobin 29.9 pg (27.0-33.0); Mean Corpuscular Volume 83.8 fL (80.0-98.0); Mean Platelet Volume 10.4 fL (9.4-12.4); Monocytes Absolute Auto 0.6 X10*3/uL (0.1-1.2); Monocytes Percent Auto 7.3 % (2-11); Neutrophils Absolute Auto 5.4 x10*3/uL (2.0-8.3); Red Blood Count 5.01 X10*6/uL (4.60-5.80)
[2024-11-15 20:34] LABS: Alanine Aminotransferase 49 U/L (0-40); Albumin Level 4.1 g/dL (3.5-5.0); Alkaline Phosphatase 153 U/L (39-117); Anion Gap 14 (12-20); Aspartate Amino Transferase 35 U/L (5-37); Bilirubin Total 0.4 mg/dL (0.0-1.0); Blood Urea Nitrogen 22 mg/dL (9-16); Calcium 9.2 mg/dL (8.4-10.2); Carbon Dioxide 19 mmol/L (22-29); Chloride 111 mmol/L (96-108); Creatinine Clr Calc Pharmacy 87.8; Estimated Glomerular Filt Rate > 60; Glucose Random 241 mg/dL (60-115); Magnesium 2.4 mg/dL (1.6-2.6); Potassium 4.1 mmol/L (3.3-5.1); Sodium 140 mmol/L (135-145)
[2024-11-15 20:47] LABS: Platelet Count 114 X10*3/uL (160-400); SLIDE REVIEW VERIFIED; White Blood Count 7.4 X10*3/uL (4.8-10.8)
[2024-11-15 23:11] VITALS: BP 98/71; PULSE 86; RESP 18; TEMP 36.4; O2SAT 97
[2024-11-15 23:48] VITALS: BP 98/71; PULSE 86; RESP 18; TEMP 36.4; O2SAT 97
--- OUTSIDE RECORDS SUMMARY | 2024-11-15 23:50 | XMS_ITS ---
Author Organization [facility] Address [address] [place] [address] Care Team Providers Care Transportation Clerk Name Role Phone Jose RENAE, Luis Manuel Primary Care Provider Unava ilTu [place] Unavailable [phone] Encounters Encounter Location Date Provider Diagnosis [facility] [address] [place] [address] 11/15/2024 Tu Pierre Plan Of Treatment No Information Progress Notes * Mike BAIRDDOB:[birth year] (64 yo M)Acc No.[id number]:11/15/2024 Progress Note Patient:?OLI Mike Provider:?Tu Pierre DPM :1960???Age:64 Y???Sex:Male Taurus e:11/15/2024 Address:[address] [place] [address] [id number] Pcp:Luis Manuel Garcia MD Subjective: * Chief Complaints: * ??? * Medical History:? Objective: * Vitals:? Assessment: Plan: * Treatment: * Images: * The named appointment provid er may or may not be the originator of this progress note, and it is not deemed complete until electronically signed by the appointment provider. Sign off status: Pending * Provider:?Tu Pierre DPM Date:?2024 Generated for Ruthy wood/Garrison/eTransmitting on:?11/15/2024 11:50 PM EDT
--- OUTSIDE RECORDS SUMMARY | 2024-11-15 23:50 | XMS_ITS ---
Author Organization [facility] Address [address] [place] [address] Care Team Providers Care Lens Generator Name Role Phone Manny Garcia MDneth Primary Care Provider Unava ilable Tu Pierre Unavailable [phone] REASON FOR VISIT Last A1C Encounters Encounter Location Date Provider Diagnosis [facility] [address] [place] [address] 09/03/2024 Tu Pierre Plan Of Treatment No Information Progress Notes * Mike BAIRDDOB:[birth year] (63 yo M)Acc No.[id number]:09/03/2024 Patient:?Mike BAIRD :1960???Age:63 Y???Sex:Male Address:[address] [place], [address] * true * Date:? Generated for Tashi israel/Garrison/eTransmitting on:?11/15/2024 11:50 PM EDT
--- OUTSIDE RECORDS SUMMARY | 2024-11-15 23:50 | XMS_ITS | Patient Health Record ---
[facility] Address [address] [facility] [place] [address] Care Team Providers Care Building Mechanic Name Role Phone Jose RENAE, Luis Manuel Primary Care Provider UnaTu Paul Unavailable [phone] Allergies No Known Allergies Results Component Value [...] Problem Acquired hammer toe of right foot (158154140672464 5) Other hammer toe(s) (acquired), right foot (M20.41) Active confirmed Problem Acquired hammer toe of left foot (743911286686575 3) Other hammer toe(s) (acquired), left foot (M20.42) Active confirmed Problem Type 2 diabetes mellitus without complication (118038010) Type 2 diabetes mellitus without complication (E11.9) Active confirmed Vital Signs Blood pressure diastolic 80 mm Hg 08/30/2024 Height 6ft in 08/30/2024 Blood pressure systolic 130 mm Hg 08/30/2024 Weight 270 lbs 08/30/2024 BMI 36.61 kg/m2 08/30/2024 Procedures Procedure Date Ordered Date Performed Result Body Sit e 17489-ADGESGM NAIL, 6 OR MORE 03/08/2024 N/A 81198-Yncjqywz Plate 03/08/2024 N/A 13734-AQHC SKIN LESIONS, 2 TO 4 03/08/2024 N/A 65028-FXGYFBD NAIL, 6 OR MORE 06/21/2024 N/A 03656-JFCF SKIN LESIONS, 2 TO 4 06/21/2024 N/A 82710-XFFYGRA NAIL, 6 OR MORE 08/30/2024 N/A 33866-XCCB SKIN LESIONS, 2 TO 4 08/30/2024 N/A Encounters Encounter Location Date Provider Diagnosis [facility] [address] [place] [address] 03/08/2024 Tu Pierre Tinea unguium B35.1 ; [...] without complication E11.9 and Ingrown nail L60.[address] [address] 06/21/2024 Tu Pierre Tinea unguium B35.1 ; Pain in right toe(s) M79.674 ; Pain in left toe(s) M79.675 ; Achilles tendinitis of right lower extremity M76.61 and Type 2 diabetes mellitus without complication E11.[address] [address] 08/30/2024 Tu Pierre Pain in right toe(s) M79.674 ; Tinea unguium B35.1 ; Pain in left toe(s) M79.675 ; Type 2 diabetes mellitus without complication E11.9 ; Other hammer toe(s) (acquired), right foot M20.41 and Other hammer toe(s) (acquired), left foot M20.[address] [address] 01/04/2024 Tu Pierre [address] [address] 04/17/2024 Tu Pierre [address] [address] 09/03/2024 Tu Pierre [address] [address] 10/01/2024 Tu Pierre Assessments Encounter Date Diagnosis [...] X ray : Foot, right 3V 03/08/2024 96746-TGKENRB NAIL, 6 OR MORE 03/08/2024 22709-EDFZQDP NAIL, 6 OR MORE 06/21/2024 84604-GFTFAOO NAIL, 6 OR MORE 08/30/2024 64618-Uapdzzab Plate 03/08/2024 03379-JCKD SKIN LESIONS, 2 TO 4 03/08/20 24 28065-THWT SKIN LESIONS, 2 TO 4 08/30/19 25 67857-ATYE SKIN LESIONS, 2 TO 4 06/21/20 Insurance Providers Payer Name Payer Address Payer Phone Subscriber Number Group Number Insured Name Patient Relationship to Insured Coverage Start Date Coverage End Date we [facility] [employer] Claims [address] [place] [phone] [id number] Mike Cornejo Self - patient is the insured Medical (General) History Medical History History ICD Code Diabetic Surgical History Surgery Date(Month/Year)
--- OUTSIDE RECORDS SUMMARY | 2024-11-15 23:50 | XMS_ITS ---
Author Organization [facility] Address [address] [place] [address] Care Team Providers Care Psychiatric Aide Name Role Phone Manny Garcia MDneth Primary Care Provider Unava ilable Tu Pierre Unavailable [phone] REASON FOR VISIT cx 11/15 Encounters Encounter Location Date Provider Diagnosis [facility] [address] [place] [address] 10/01/2024 Tu Pierre Plan Of Treatment No Information Progress Notes * Mike BAIRDDOB:[birth year] (63 yo M)Acc No.[id number]:10/01/2024 Patient:?Mike BAIRD :1960???Age:63 Y???Sex:Male Address:[address] [place], [address] * true * Date:? Generated for Printi israel/Garrison/eTransmitting on:?11/15/2024 11:50 PM EDT
== END 2024-11-15 23:53 | disposition home or self-care (01) ==
LOC: HO.ED 23:49
PROVIDERS: Physician Assistant Medical; Emergency Provider Internal Medicine; PCP Internal Medicine
DX: E11.65 Type 2 diabetes mellitus with hyperglycemia (principal); R79.89 Other specified abnormal findings of blood chemistry; Z79.899 Other long term (current) drug therapy; Z87.891 Personal history of nicotine dependence
CPT/HCPCS: 36415; 80053; 82947; 83735; 85025; 99283; 99284

== ENCOUNTER 2024-11-21 13:02 | Outpatient (AMB) | payer OTHER, SELFPAY ==
--- NOTE | 2024-11-21 13:31 | A.OFFVIS_ITS ---
Intake Intake Visit Reasons: 60 min Cutter Head Sharpener Required: No Accompanied by: Self / Same As Patient Allergies No Known Allergies [No Known Allergies*] Allergy (Verified 11/15/24 19:58) HPI Comprehensive Diabetes Asmnt Most Recent Diabetes Results: 2 Microalb/Creat Ratio TNP 07/19/24 Cholesterol 162 mg/dL (<200) 07/19/24 HDL Cholesterol 34 mg/dL (>40) L 07/19/24 Triglycerides 247 mg/dL (<150) H 07/19/24 Creatinine 1.22 mg/dL (0.5-1.4) 11/15/24 Blood Urea Nitrogen 22 mg/dL (9-16) H 11/15/24 Sodium 140 mmol/L (135-145) 11/15/24 Potassium 4.1 mmol/L (3.3-5.1) 11/15/24 Chloride 111 mmol/L (96-108) H 11/15/24 Carbon Dioxide 19 mmol/L (22-29) L 11/15/24 Calcium 9.2 mg/dL (8.4-10.2) 11/15/24 AST 35 U/L (5-37) 11/15/24 ALT 49 U/L (0-40) H 11/15/24 Total Protein 7.0 g/dL (6.5-8.0) 11/15/24 Albumin 4.1 g/dL (3.5-5.0) 11/15/24 [facility] Medical History Impacted cerumen, right ear Acute diarrhea Pain in both feet Calcaneal spur of right foot Achilles tendinitis Callus of foot Right hand pain Abdominal bloating Vertigo Calcaneal spur Colon cancer screening COVID-19 Pre-op examination Elevated LFTs Encounter for Medicare annual wellness exam Bowel obstruction Melena Knee pain, bilateral Gastroenteritis Healed wound Chronic idiopathic constipation Chronic idiopathic constipation Hospital discharge follow-up Knee osteoarthritis Obesity (BMI 30-39.9) Schizoaffective disorder Pure hypercholesterolemia Benign essential hypertension Chronic kidney disease (CKD), stage III (moderate) Type 2 diabetes mellitus with diabetic chronic kidney disease Morbid obesity Dyslipidemia 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 mellitus 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 Diabetic polyneuropathy associated with 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 mellitus Schizo affective schizophrenia Diabetes type 2, uncontrolled Surgical History History of repair of congenital cleft palate Hx of circumcision Family History Father HTN (hypertension) Mother Diabetes Other Mental health problem Social History Household Members: None Housing: Apartment Are you a primary care associate to a significant other at home: No Do you presently have visiting nurse or other home services: Yes Alcohol intake: former Patient Tobacco Use Status: Former Tobacco user Tobacco use type: Cigarette Cigarettes Per Day: 15 Years Smoked: 8 quit 30 years ago e-Cigarette/Vaping Use: Never Used Second Hand Smoke Exposure: No service: No Current occupational status: employed Current occupation: [employer] Cognitive needs: No Hearing needs: No Vision needs: Yes (glasses) Assessment & Plan Assessment & Plan (1) 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 mellitus: Code(s): E11.649 - Type 2 diabetes mellitus with hypoglycemia without coma Plan: Personal Continuous Glucose Monitor: Patients CGM information reviewed, Pt uses Sqrl 3 sensor with reader Patient had Tresiba U 200 increase to 38 units at last visit on 10/31/2024, patient's glucose still running above target. Recommended to patient he increase Tresiba U 200-40 units daily Learning objectives: The patient met all learning objectives and was able to verbalize understanding and provide teach back of education topics discussed . The patient was provided with the opportunity to ask questions and all questions were answered. Blood glucose monitoring When/how often to test Target blood sugar ranges Introduction to Nutrition Importance of healthy diet in managing DM Diet is personalized to individual preference Review patient?s regular diet/food preferences Who prepares meals/does food shopping/ Dining out?/ Barriers? How diet effects glucose Eating 3 balanced meals a day with small, healthy snacks between meals Review food groups Carbohydrates: What is a carbohydrate/Which food/food groups are considered carbohydrates Effect of carbohydrates on blood glucose Portion sizes Reading food labels Basic carb counting (if applicable per nursing assessment) Plate method Meal planning Recommendations: Follow plate method, consistent carbs and read nutritional labels. Educational Materials: The patient was provided with the following written educational materials: Planning Healthy Meals Handout Patient Response to instructions: Comprehension of Instructions: Fair Readiness to make changes: Contemplation How confident they feel about making changes: Fair Reviewed how to interpret trend arrows Reminded patient that to check finger sticks if symptoms do not match sensor reading. Discussed lag time between finger stick and sensor data.? Patient able to insert sensor independently at home without issue.? Portions of this note were created using voice recognition software, please excuse any words or phrases that may have been misinterpreted. Patient Instructions: Follow-up with Diabetes Education nurse 3 months Coding Level of Care Code Est Pt Level 1 (83356) Diagnoses 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 mellitus E11.649
--- OUTSIDE RECORDS SUMMARY | 2024-11-21 15:43 | XMS_ITS | Patient Health Record ---
[facility] [place] Address [address] [place] [address] Care Team Providers Care Edger Hand Name Role Phone Jose RENAE, Luis Manuel Primary Care Provider UnaTu Paul Unavailable [phone] Allergies No Known Allergies Results Component Value [...] Problem Acquired hammer toe of right foot (200779591220631 5) Other hammer toe(s) (acquired), right foot (M20.41) Active confirmed Problem Acquired hammer toe of left foot (525920506873720 3) Other hammer toe(s) (acquired), left foot (M20.42) Active confirmed Problem Type 2 diabetes mellitus without complication (058768878) Type 2 diabetes mellitus without complication (E11.9) Active confirmed Vital Signs Blood pressure diastolic 80 mm Hg 08/30/2024 Height 6ft in 08/30/2024 Blood pressure systolic 130 mm Hg 08/30/2024 Weight 270 lbs 08/30/2024 BMI 36.61 kg/m2 08/30/2024 Procedures Procedure Date Ordered Date Performed Result Body Sit e 79853-MUALNDM NAIL, 6 OR MORE 03/08/2024 N/A 54380-Anhdlklq Plate 03/08/2024 N/A 98979-ITWY SKIN LESIONS, 2 TO 4 03/08/2024 N/A 34328-JVDJAVL NAIL, 6 OR MORE 06/21/2024 N/A 31836-UAMY SKIN LESIONS, 2 TO 4 06/21/2024 N/A 54886-GSCYIKN NAIL, 6 OR MORE 08/30/2024 N/A 12311-VVQE SKIN LESIONS, 2 TO 4 08/30/2024 N/A Encounters Encounter Location Date Provider Diagnosis [facility] [address] [place] [address] 03/08/2024 Tu Pierre Tinea unguium B35.1 ; [...] complication E11.9 and Ingrown nail L60.[address] [address] 06/21/2024 Tu Pierre Tinea unguium B35.1 ; Pain in right toe(s) M79.674 ; Pain in left toe(s) M79.675 ; Achilles tendinitis of right lower extremity M76.61 and Type 2 diabetes mellitus without complication E11.[address] [address] 08/30/2024 Tu Pierre Pain in right toe(s) M79.674 ; Tinea unguium B35.1 ; Pain in left toe(s) M79.675 ; Type 2 diabetes mellitus without complication E11.9 ; Other hammer toe(s) (acquired), right foot M20.41 and Other hammer toe(s) (acquired), left foot M20.[address] [address] 01/04/2024 Tu Pierre [address] [address] 04/17/2024 Tu Pierre [address] [address] 09/03/2024 Tu Pierre [address] [address] 10/01/2024 Tu Pierre Assessments Encounter Date Diagnosis [...] X ray : Foot, right 3V 03/08/2024 87795-HKTCTAV NAIL, 6 OR MORE 03/08/2024 40280-UEPNRSF NAIL, 6 OR MORE 06/21/2024 28875-SXNCHRW NAIL, 6 OR MORE 08/30/2024 40227-Zaihegjt Plate 03/08/2024 76398-UPLD SKIN LESIONS, 2 TO 4 03/08/20 24 49523-LLCJ SKIN LESIONS, 2 TO 4 08/30/19 25 51536-JMRR SKIN LESIONS, 2 TO 4 06/21/20 Insurance Providers Payer Name Payer Address Payer Phone Subscriber Number Group Number Insured Name Patient Relationship to Insured Coverage Start Date Coverage End Date we [facility] [employer] Claims [address] [place] [address] [phone] [id number] Mike Cornejo Self - patient is the insured Medical (General) History Medical History History ICD Code Diabetic Surgical History Surgery Date(Month/Year)
--- OUTSIDE RECORDS SUMMARY | 2024-11-21 15:44 | XMS_ITS ---
Author Organization [facility] Address [address] [place] [address] Care Team Providers Care Shopping Investigator Name Role Phone Jose RENAE, Luis Manuel Primary Care Provider Unava ilTu [place] Unavailable [phone] Encounters Encounter Location Date Provider Diagnosis [facility] [address] [place] [address] 11/15/2024 uT Pierre Plan Of Treatment No Information Progress Notes * Mike BAIRDDOB:[birth year] (64 yo M)Acc No.[id number]:11/15/2024 Progress Note Patient:?OLI Mike Provider:?Tu Pierre DPM :1960???Age:64 Y???Sex:Male Taurus e:11/15/2024 Address:[address] [place] [address] [id number] Pcp:Luis Manuel Garcia MD Subjective: * Chief [...] Pierre DPM Date:?2024 Generated for Ruthy wood/Garrison/eTransmitting on:?11/21/2024 03:44 PM EDT
--- OUTSIDE RECORDS SUMMARY | 2024-11-21 15:44 | XMS_ITS ---
Author Organization [facility] Address [address] [place] [address] Care Team Providers Care Door Frame Builder Name Role Phone Manny Garcia MDneth Primary Care Provider Unava ilable Tu Pierre Unavailable [phone] REASON FOR VISIT cx 11/15 Encounters Encounter Location Date Provider Diagnosis [facility] [address] [place] [address] 10/01/2024 Tu Pierre Plan Of Treatment No Information Progress Notes * Mike BAIRDDOB:[birth year] (63 yo M)Acc No.[id number]:10/01/2024 Patient:?Mike BAIRD :1960???Age:63 Y???Sex:Male Address:[address] [place], [address] * true * Date:? Generated for Printi israel/Grarison/eTransmitting on:?11/21/2024 03:43 PM EDT
--- OUTSIDE RECORDS SUMMARY | 2024-11-21 15:44 | XMS_ITS ---
Author Organization [facility] Address [address] [place] [address] Care Team Providers Care Director Of Audiology Name Role Phone Manny Garcia MDneth Primary Care Provider Unava ilable Tu Pierre Unavailable [phone] REASON FOR VISIT Last A1C Encounters Encounter Location Date Provider Diagnosis [facility] [address] [place] [address] 09/03/2024 Tu Pierre Plan Of Treatment No Information Progress Notes * Mike BAIRDDOB:[birth year] (63 yo M)Acc No.[id number]:09/03/2024 Patient:?Mike BAIRD :1960???Age:63 Y???Sex:Male Address:[address] [place], [address] * true * Date:? Generated for Tashi israel/Garrison/eTransmitting on:?11/21/2024 03:43 PM EDT
== END 2024-11-21 14:09 | disposition home or self-care (01) ==
LOC: HO.ENCR 13:02
PROVIDERS: PCP Internal Medicine; Visit Provider Registered Nurse Diabetes Educator
DX: E11.649 Type 2 diabetes mellitus with hypoglycemia without coma (principal)

== ENCOUNTER → 2024-11-21 13:02 | Outpatient (BNVA) | payer OTHER, SELFPAY | PROVIDERS: PCP Internal Medicine; Visit Provider Registered Nurse Diabetes Educator | DX: E11.649 Type 2 diabetes mellitus with hypoglycemia without coma (principal) | CPT/HCPCS: 99211 ==

== ENCOUNTER 2024-11-26 08:53 | Outpatient (REF) | payer OTHER, SELFPAY ==
[2024-11-26 09:05] LABS: MANUAL DIFF FLAG NO
--- OUTSIDE RECORDS SUMMARY | 2024-11-26 09:21 | XMS_ITS ---
Author Organization [facility] Address [address] [place] [address] Care Team Providers Care Meat Process Worker Name Role Phone Jose RENAE, Luis Manuel Primary Care Provider Unava ilTu [place] Unavailable [phone] Encounters Encounter Location Date Provider Diagnosis [facility] [address] [place] [address] 11/15/2024 Tu Pierre Plan Of Treatment No Information Progress Notes * Mike BAIRDDOB:[birth year] (64 yo M)Acc No.[id number]:11/15/2024 Progress Note Patient:?OLI Mike Provider:?Tu Pierre DPM :1960???Age:64 Y???Sex:Male Taurus e:11/15/2024 Address:[address] [place] [address] [id number] Pcp:Luis Manuel Garcia MD Subjective: * Chief [...] Pierre DPM Date:?2024 Generated for Ruthy wood/Garrison/eTransmitting on:?11/26/2024 09:21 AM EDT
--- OUTSIDE RECORDS SUMMARY | 2024-11-26 09:21 | XMS_ITS ---
Author Organization [facility] Address [address] [place] [address] Care Team Providers Care Relay Worker Name Role Phone Manny Garcia MDneth Primary Care Provider Unava ilable Tu Pierre Unavailable [phone] REASON FOR VISIT cx 11/15 Encounters Encounter Location Date Provider Diagnosis [facility] [address] [place] [address] 10/01/2024 Tu Pierre Plan Of Treatment No Information Progress Notes * Mike BAIRDDOB:[birth year] (63 yo M)Acc No.[id number]:10/01/2024 Patient:?Mike BAIRD :1960???Age:63 Y???Sex:Male Address:[address] [place], [address] * true * Date:? Generated for Printi israel/Garrison/eTransmitting on:?11/26/2024 09:21 AM EDT
[2024-11-26 09:40] LABS: Hematocrit 44.4 % (42.0-52.0); Hemoglobin 15.7 g/dl (14.0-18.0); Imm Gran Abs Auto 0.04 X10*3/uL (0.00-0.03); Imm Gran Pct Auto 0.7 % (0.0-0.4); Lymphocytes Absolute Auto 1.3 X10*3/uL (1.2-4.9); Mean Corpuscular HGB Conc 35.4 g/dl (31.0-36.0); Mean Corpuscular Hemoglobin 30.1 pg (27.0-33.0); Mean Corpuscular Volume 85.2 fL (80.0-98.0); Monocytes Absolute Auto 0.5 X10*3/uL (0.1-1.2); Monocytes Percent Auto 8.8 % (2-11); Neutrophils Absolute Auto 3.7 x10*3/uL (2.0-8.3); Neutrophils Percent Auto 66.5 % (45-73); Platelet Count 119 X10*3/uL (160-400); Red Blood Count 5.21 X10*6/uL (4.60-5.80); Red Cell Distribution Width 13.3 % (11.0-16.0); White Blood Count 5.6 X10*3/uL (4.8-10.8)
== END 2024-11-26 08:54 | disposition home or self-care (01) ==
LOC: HO.LABR 08:53
PROVIDERS: PCP Internal Medicine; Visit Provider Psychiatry & Neurology Psychiatry
DX: F25.0 Schizoaffective disorder, bipolar type (principal); Z79.899 Other long term (current) drug therapy
CPT/HCPCS: 36415; 85025

== ENCOUNTER 2024-11-28 11:55 | Outpatient (AMB) | payer OTHER, SELFPAY ==
--- NOTE | 2024-11-28 12:13 | MHC.OFFVIS ---
Vital Signs 11/28/24 12:25 Height 6 ft 1 in Weight 268 lb 8.368 oz BMI 35.4 BP 100/70 Blood Pressure Location Rt brachial Position Sitting Pulse 86 Pulse Source Pulse Oximeter Pulse Oximetry (%) 96 Oxygen Delivery Method Room Air Intake Visit Reasons: T2DM Intake Note: Patient presents today because his blood sugars keep spiking pt states that he was told to come see the doctor. Last Diabetic eye exam was on: 08/08/2024, [facility] Last Podiatry exam was on: 08/30/2024, [employer] [facility] Most recent HbA1c: 7.8% 10/31/2024 Random Glucose- 206 mg/dL, Today [employer] Maintenance Worker Required: No Accompanied by: Self / Same As Patient Allergies No Known Allergies [No Known Allergies*] Allergy (Verified 12/22/24 13:44) HPI Comments Details: Patient is a 64-year-old male with DM type 2 diagnosed in 1990 who presents for f/u. He was last seen one month ago. Hgb A1C 07/19/24 7.5% 01/2022 6.3% He has hypoglycemia unawareness and per last endocrine note limited insight into his diabetes. At his last visit 3 weeks ago he declined an increase in Tresiba and declined starting a short-acting meal once daily before his meal. I had reviewed with him the importance of good glucose control. Previous medication: Trulicity stopped due to GI symptoms: abd pain and bloating which resolved after med was discontinued. Diabetes medications: Tresiba U200 40 units in the am Jardiance 25mg metformin 1,000mg BID He is now on a Jody. avg 202 very high 15%, high 51% in range 34% zero lows Running 50 points above target. Does have postprandial highs after the 1st meal of the day No retinopathy: Ophthalmology evaluation: 07/2024 [facility] He reports his eyes get dry at times. Has neuropathy on gabapentin: reported: denies numbness, tingling, cramping in lower extremities [facility] he will schedule an appt Has Nephropathy:eGFR 56 07/19/24 microalbumin: Less than 5.0 Has HLD on statin last ldl 79 07/2024 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: occurs after work when has not eaten all day. None on current monitor Hyperglycemia: occasional urinary frequency, + nocturia 3-5x, +polydypsia Diet: Breakfast: coffee and egg sandwich Lunch: hamburger Dinner: turkey, cheese sandwich with macaroni salad, diet soda , Snacks: banana or 0 sugar candy , Drinks throughout day: water, coffee Exercise: works at [employer] 16-18 hours a week. Frequently walks He was recently seen by the Milana BOWMAN Followed by GI medicine for idiopathic constipation [facility] Medical History Impacted cerumen, right ear Acute diarrhea Pain in both feet Calcaneal spur of right foot Achilles tendinitis Callus of foot Right hand pain Abdominal bloating Vertigo Calcaneal spur Colon cancer screening COVID-19 Pre-op examination Elevated LFTs Encounter for Medicare annual wellness exam Bowel obstruction Melena Knee pain, bilateral Gastroenteritis Healed wound Chronic idiopathic constipation Chronic idiopathic constipation Hospital discharge follow-up Knee osteoarthritis Obesity (BMI 30-39.9) Schizoaffective disorder Pure hypercholesterolemia Benign essential hypertension Chronic kidney disease (CKD), stage III (moderate) Type 2 diabetes mellitus with diabetic chronic kidney disease Morbid obesity Dyslipidemia 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 mellitus correction (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 Diabetic polyneuropathy associated with 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 mellitus Schizo affective schizophrenia Diabetes type 2, uncontrolled Surgical History History of repair of congenital cleft palate Hx of circumcision Family History Father HTN (hypertension) Mother Diabetes Other Mental health problem Social History Household Members: None Housing: Apartment Are you a primary healthcare economics consultant to a significant other at home: No Do you presently have visiting nurse or other home services: Yes Alcohol intake: former Patient Tobacco Use Status: Former Tobacco user Tobacco use type: Cigarette Cigarettes Per Day: 15 Years Smoked: 8 quit 30 years ago e-Cigarette/Vaping Use: Never Used Second Hand Smoke Exposure: No service: No Current occupational status: employed Current occupation: [employer] Cognitive needs: No Hearing needs: No Vision needs: Yes (glasses) Physical Exam Vital Signs: Last Vital Signs Pulse 86 11/28/24 12:25 BP 100/70 11/28/24 12:25 Pulse Ox 96 11/28/24 12:25 Oxygen Delivery Method Room Air 11/28/24 12:25 BMI result Body Mass Index 35.4 Const Other: Absence of Cushingoid features. Absence of acromegalic features. Neck exam reveals nl size thyroid about 15 gms. No thyroid nodules palpable. Heart S1 S2, Reg R/R. No M/R G. Skin exam reveals absence of vitiligo or acanthosis nigricans.. Affect flat. No edema Results Reviewed Results Reviewed: Laboratory Last Values Glucose (Clinic) 206 mg/dL (60-115) H 11/28/24 12:31 Assessment & Plan Assessment & Plan (1) Type 2 diabetes mellitus with diabetic chronic kidney disease: Code(s): E11.22 - Type 2 diabetes mellitus with diabetic chronic kidney disease Category: Medical Qualifiers: Chronic kidney disease stage: stage 3 (moderate) Chronic kidney disease stage 3 subtype: unspecified whether 3a or 3b Diabetes mellitus [facility] insulin use: with buttermaker continuous churn use Qualified Code(s): E11.22 - Type 2 diabetes mellitus with diabetic chronic kidney disease; N18.30 - Chronic kidney disease, stage 3 unspecified; Z79.4 - 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 Plan: 64-year-old type 2 diabetic with glucose average of 202. He is now willing to increase his Tresiba which has increased to 46 units. I will see him back in several weeks if he has not had improvement in his glucose sensor can add a short-acting insulin with the 1st meal of the day. The patient had an opportunity to ask questions regarding treatment plan. The patient expressed understanding and agreement with the above treatment plan. The patient is aware they should contact our office by phone for worsening glucose readings or for any low blood sugars which may warrant a change in diabetes medication. Compliance is encouraged with medications and any followup testing/consults which may have been ordered. Medications: Changed From Tresiba FlexTouch U-200 40 units (0.2 mL) subcut DAILY 90 days 18 mL 3RF NS E11.42 - Type 2 diabetes mellitus with diabetic polyneuropathy To Tresiba FlexTouch U-200 (insulin degludec) 46 units (0.23 mL) subcut DAILY 21 mL 3RF 90 days NS E11.42 - Type 2 diabetes mellitus with diabetic polyneuropathy Coding Level of Care Code Est Pt Level 3 (18690) Complex EM visit Add On G2211 Diagnoses Type 2 diabetes mellitus with stage 3 chronic kidney disease, with long-term current use of insulin, unspecified whether stage 3a or 3b CKD E11.22; N18.30; Z79.4 Chronic kidney disease stage: stage 3 (moderate) Chronic kidney disease stage 3 subtype: unspecified whether 3a or 3b Diabetes mellitus buttermaker continuous churn insulin use: with buttermaker continuous churn use Time Spent (min) 15 Comment Time spent reviewing labs/provider notes, face to face, chart doc
[2024-11-28 12:25] VITALS: BP 100/70; PULSE 86; O2SAT 96; BMI 35.4
[2024-11-28 12:39] LABS: Glucose, Whole Blood 206 mg/dL (60-115)
--- OUTSIDE RECORDS SUMMARY | 2024-11-28 14:52 | XMS_ITS | Patient Health Record ---
[facility] [place] Address [address] [place] [address] Care Team Providers Care Stripping Shovel Oiler Name Role Phone Jose RENAE, Luis Manuel Primary Care Provider UnaTu Paul Unavailable [phone] Allergies No Known Allergies Results Component Value Reference Range Notes HEMOGLOBIN A1C (GLYCOHEMOGLO BIN) Reviewed date:09/03/2024 10:41:57 AM Interpretation: Performing Lab: Notes/Report: HEMOGLOBIN A1C % (HH) 7.5 HEMOGLOBIN A1C (GLYCOHEMOGLO BIN) Reviewed date:08/30/2024 11:53:23 AM Interpretation: Performing Lab: Notes/Report: HEMOGLOBIN A1C % (HH) 7.0 Reason For Referral No Information Medications Medication [...] Problem Acquired hammer toe of right foot (356456109548777 5) Other hammer toe(s) (acquired), right foot (M20.41) Active confirmed Problem Acquired hammer toe of left foot (433723201755976 3) Other hammer toe(s) (acquired), left foot (M20.42) Active confirmed Problem Type 2 diabetes mellitus without complication (711641772) Type 2 diabetes mellitus without complication (E11.9) Active confirmed Vital Signs Blood pressure diastolic 80 mm Hg 08/30/2024 Height 6ft in 08/30/2024 Blood pressure systolic 130 mm Hg 08/30/2024 Weight 270 lbs 08/30/2024 BMI 36.61 kg/m2 08/30/2024 Procedures Procedure Date Ordered Date Performed Result Body Sit e 74199-CAGQLZB NAIL, 6 OR MORE 03/08/2024 N/A 94360-Glkagchg Plate 03/08/2024 N/A 00937-UVPY SKIN LESIONS, 2 TO 4 03/08/2024 N/A 41057-WGBOSEY NAIL, 6 OR MORE 06/21/2024 N/A 80624-JQXG SKIN LESIONS, 2 TO 4 06/21/2024 N/A 51610-JOBVUAN NAIL, 6 OR MORE 08/30/2024 N/A 99290-PYOU SKIN LESIONS, 2 TO 4 08/30/2024 N/A Encounters Encounter Location Date Provider Diagnosis [facility] [address] [place] [address] 03/08/2024 Tu Pierre Tinea unguium B35.1 ; [...] without complication E11.9 and Ingrown nail L60.[address] [address] 06/21/2024 Tu Peirre Tinea unguium B35.1 ; Pain in right toe(s) M79.674 ; Pain in left toe(s) M79.675 ; Achilles tendinitis of right lower extremity M76.61 and Type 2 diabetes mellitus without complication E11.[address] [address] 08/30/2024 Tu Pierre Pain in right toe(s) M79.674 ; Tinea unguium B35.1 ; Pain in left toe(s) M79.675 ; Type 2 diabetes mellitus without complication E11.9 ; Other hammer toe(s) (acquired), right foot M20.41 and Other hammer toe(s) (acquired), left foot M20.[address] [address] 01/04/2024 Tu Pierre [address] [address] 04/17/2024 Tu Pierre [address] [address] 09/03/2024 Tu Pierre [address] [address] 10/01/2024 Tu Pierre Assessments Encounter Date Diagnosis [...] X ray : Foot, right 3V 03/08/2024 61166-XOTRXKO NAIL, 6 OR MORE 03/08/2024 52367-PKFKTFP NAIL, 6 OR MORE 06/21/2024 77229-XZVXTAC NAIL, 6 OR MORE 08/30/2024 84322-Mhnvooxv Plate 03/08/2024 01868-FEIE SKIN LESIONS, 2 TO 4 03/08/20 24 67779-PZDB SKIN LESIONS, 2 TO 4 08/30/19 25 20177-ECDV SKIN LESIONS, 2 TO 4 06/21/20 Insurance Providers Payer Name Payer Address Payer Phone Subscriber Number Group Number Insured Name Patient Relationship to Insured Coverage Start Date Coverage End Date we [facility] [employer] Claims [address] [place] [address] [phone] [id number] Mike Cornejo Self - patient is the insured Medical (General) History Medical History History ICD Code Diabetic Surgical History Surgery Date(Month/Year)
--- OUTSIDE RECORDS SUMMARY | 2024-11-28 14:52 | XMS_ITS ---
Author Organization [facility] Address [address] [place] [address] Care Team Providers Care Division Leader Name Role Phone Manny Garcia MDneth Primary Care Provider Unava ilable Tu Pierre Unavailable [phone] REASON FOR VISIT Last A1C Encounters Encounter Location Date Provider Diagnosis [facility] [address] [place] [address] 09/03/2024 Tu Pierre Plan Of Treatment No Information Progress Notes * Mike BAIRDDOB:[birth year] (63 yo M)Acc No.[id number]:09/03/2024 Patient:?Mike BAIRD :1960???Age:63 Y???Sex:Male Address:[address] [place], [address] * true * Date:? Generated for Tashi israel/Garrison/eTransmitting on:?11/28/2024 02:52 PM EDT
--- OUTSIDE RECORDS SUMMARY | 2024-11-28 14:52 | XMS_ITS ---
Author Organization [facility] Address [address] [place] [address] Care Team Providers Care Formula Clerk Name Role Phone Manny Garcia MDneth Primary Care Provider Unava ilable Tu Pierre Unavailable [phone] REASON FOR VISIT cx 11/15 Encounters Encounter Location Date Provider Diagnosis [facility] [address] [place] [address] 10/01/2024 Tu Pierre Plan Of Treatment No Information Progress Notes * Mike BAIRDDOB:[birth year] (63 yo M)Acc No.[id number]:10/01/2024 Patient:?Mike BAIRD :1960???Age:63 Y???Sex:Male Address:[address] [place], [address] * true * Date:? Generated for Printi israel/Garrison/eTransmitting on:?11/28/2024 02:52 PM EDT
== END 2024-11-28 12:59 | disposition home or self-care (01) ==
PROVIDERS: PCP Internal Medicine; Visit Provider Nurse Practitioner Adult Health
DX: E11.22 Type 2 diabetes mellitus with diabetic chronic kidney disease (principal); N18.30 Chronic kidney disease, stage 3 unspecified; Z79.4 Long term (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
CPT/HCPCS: 99213; G2211

== ENCOUNTER → 2024-11-28 11:55 | Outpatient (BNVA) | payer OTHER, SELFPAY | PROVIDERS: PCP Internal Medicine; Visit Provider Nurse Practitioner Adult Health | DX: E11.22 Type 2 diabetes mellitus with diabetic chronic kidney disease (principal); E11.42 Type 2 diabetes mellitus with diabetic polyneuropathy; N18.30 Chronic kidney disease, stage 3 unspecified; Z79.84 Long term (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 of oral hypoglycemic drugs; Z79.899 Other long term (current) drug therapy | CPT/HCPCS: 82947; 99212 ==

== ENCOUNTER 2024-12-02 12:39 | Emergency (ER) | payer OTHER, SELFPAY ==
[2024-12-02 12:58] VITALS: BP 103/68; PULSE 90; RESP 18; TEMP 36.5; O2SAT 97; BMI 35.7
--- NOTE | 2024-12-02 12:58 | ED.GENADULT ---
HPI - General Adult General Chief complaint: Weakness Stated complaint: high bs 350 Time Seen by Provider: 12/02/24 16:23 Related Data Home Medications ?Medication ?Instructions ?Recorded ?Confirmed hydroxyzine pamoate 50 mg capsule 50 mg PO TID PRN Anxiety 09/18/20 08/02/24 benztropine 0.5 mg tablet 0.5 mg PO BID 04/29/22 10/04/24 clozapine 100 mg tablet 100 mg PO TID 05/12/22 10/04/24 hydroxyzine pamoate 25 mg capsule mg PO ONCE 10/04/24 10/04/24 simethicone 180 mg capsule 180 mg PO TID 10/04/24 10/04/24 Previous Rx's ?Medication ?Instructions ?Recorded polyethylene glycol 3350 17 gram 17 g PO BID #30 ea 08/12/22 oral powder packet (Miralax) blood-glucose meter (FreeStyle #1 ea 03/27/23 Lite Meter kit) cholecalciferol (vitamin D3) 25 25 mcg PO DAILY #90 caps 12/21/23 mcg (1,000 unit) capsule ketoconazole 2 % topical cream 1 appl topical DAILY #30 grams 01/01/24 bisacodyl 5 mg tablet,delayed 10 mg (2 x 5 mg) PO BID #90 tabs 01/02/24 release acetaminophen 500 mg tablet 1,000 mg (2 x 500 mg) PO Q6H PRN 01/04/24 pain #30 tabs cyclobenzaprine 10 mg tablet 10 mg PO DAILY PRN muscle spasm 01/04/24 #10 tabs lidocaine 5 % topical patch 1 patch topical DAILY #15 ea 01/04/24 psyllium seed (sugar) oral powder 1 tsp PO BID #1,254 grams 03/07/24 (Metamucil (sugar) oral powder) pen needle, diabetic 29 gauge x #100 ea 04/24/24 1/2 (BD Ultra-Fine Original Pen Needle) sildenafil 50 mg tablet 50 mg PO DAILY PRN sexual activity 05/03/24 #10 tabs lancets 28 gauge (FreeStyle #100 ea 05/08/24 Lancets) blood sugar diagnostic (FreeStyle #100 ea 06/15/24 Lite Strips) carbamide peroxide 6.5 % ear drops 5 drp otic (ear) left DAILY 4 days 06/24/24 (Debrox) #15 mL glycerin (adult) 2 supp TX .after shower 06/28/24 constipation #25 ea metoclopramide HCl 10 mg tablet 10 mg PO TID #90 tabs 06/28/24 (Reglan) guaifenesin 200 mg/5 mL oral liquid 400 mg (10 mL) PO Q6H PRN cough 07/01/24 #118 mL magnesium hydroxide 400 mg/5 mL 20 ml PO BEDTIME PRN constipation 07/01/24 oral suspension (Milk of Magnesia) #3,780 mL blood-glucose meter (FreeStyle #1 ea 07/18/24 Lite Meter kit) atorvastatin 10 mg tablet 10 mg PO DAILY #90 tabs 09/16/24 empagliflozin 25 mg tablet 25 mg PO QAM #30 tabs 10/04/24 (Jardiance) blood-glucose sensor (FreeStyle #2 ea 10/09/24 Jody 3 Plus Sensor device) blood-glucose,utilities estimator and drafter,cont #1 ea 10/09/24 (FreeStyle Jody 3 [place]) ibuprofen 800 mg tablet 800 mg PO Q8H PRN for pain 30 days 10/17/24 #90 tabs docusate sodium 100 mg capsule 100 mg PO BID #60 caps 10/29/24 metformin 500 mg tablet 1,000 mg (2 x 500 mg) PO BID 90 10/29/24 days #360 tabs methylcellulose (laxative) 500 mg 1,000 mg (2 x 500 mg) PO TID #180 10/29/24 tablet (Fiber Therapy tabs (methylcellulose)) gabapentin 300 mg capsule 300 mg PO BEDTIME 90 days #90 caps 11/01/24 furosemide 20 mg tablet 20 mg PO DAILY #90 tabs 11/10/24 linaclotide 290 mcg capsule 290 mcg PO QAM #30 caps 11/14/24 (Linzess) Tresiba FlexTouch U-200 200 46 unit (0.23 mL) subcut DAILY 90 11/28/24 unit/mL (3 mL) subcutaneous pen days #21 mL (insulin degludec) Allergies Allergy/AdvReac Type Severity Reaction Status Date / Time No Known Allergies Allergy Verified 12/02/24 12:59 [No Known Allergies*] [facility] Past Medical History Medical History Impacted cerumen, right ear Acute diarrhea Pain in both feet Calcaneal spur of right foot Achilles tendinitis Callus of foot Right hand pain Abdominal bloating Vertigo Calcaneal spur Colon cancer screening COVID-19 Pre-op examination Elevated LFTs Encounter for Medicare annual wellness exam Bowel obstruction Melena Knee pain, bilateral Gastroenteritis Healed wound Chronic idiopathic constipation Chronic idiopathic constipation Hospital discharge follow-up Knee osteoarthritis Obesity (BMI 30-39.9) Schizoaffective disorder Pure hypercholesterolemia Benign essential hypertension Chronic kidney disease (CKD), stage III (moderate) Type 2 diabetes mellitus with diabetic chronic kidney disease Morbid obesity Dyslipidemia 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 mellitus longterm (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 Diabetic polyneuropathy associated with 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 mellitus Schizo affective schizophrenia Diabetes type 2, uncontrolled Surgical History History of repair of congenital cleft palate Hx of circumcision Family History Family History Father HTN (hypertension) Mother Diabetes Other Mental health problem Social History Social History Household Members: None Housing: Apartment Are you a primary regular senior care provider to a significant other at home: No Do you presently have visiting nurse or other home services: Yes Alcohol intake: former Patient Tobacco Use Status: Former Tobacco user Tobacco use type: Cigarette Cigarettes Per Day: 15 Years Smoked: 8 quit 30 years ago e-Cigarette/Vaping Use: Never Used Second Hand Smoke Exposure: No Advance Directives: No Advance Directives Information Provided: Yes service: No Current occupational status: employed Current occupation: [employer] Cognitive needs: No Hearing needs: No Vision needs: Yes (glasses) Physical Exam ED Vital Signs: Vital Signs - 24 hr 12/02/24 12:58 12/02/24 16:44 12/02/24 18:42 Temperature 97.7 F 97.4 F 97.7 F Pulse Rate 90 81 79 Respiratory Rate 18 18 18 Blood Pressure 103/68 108/81 103/64 Pulse Oximetry 97 97 98 Oxygen Delivery Method Room Air Room Air Room Air 12/02/24 20:35 12/02/24 20:55 Temperature 97.8 F 97.8 F Pulse Rate 71 71 Respiratory Rate 18 18 Blood Pressure 121/87 121/87 Pulse Oximetry 97 97 Oxygen Delivery Method Room Air Room Air BMI result Body Mass Index 35.7 Course Course Course Narrative: This is a rapid medical exam performed by Romelia Gonzales NP: Additional HPI, ROS, PE not included below will be deferred to primary provider. Patient is a 64-year-old male with history of IDT2DM, schizoaffective disorder, chronic constipation, CKD III, obesity presenting to the emergency department with complaint of generalized weakness for the past few days. States he has barely been able to go to work. Reports labile blood sugars. Denies fevers, chest pain, shortness of breath, abdominal pain, nausea, vomiting diarrhea. Plan: EKG, labs, UA Medications Administered Discontinued Medications Generic Name Dose Route Start Last Admin Trade Name Freq PRN Reason Stop Dose Admin Sodium Chloride 1,000 mls @ 999 mls/hr 12/02/24 17:00 12/02/24 18:38 Ns IV 12/02/24 18:00 Infused .Q1H1M SALENA Infusion Medical Decision Making Lab Data 12/02/24 13:14 12/02/24 13:14 Labs: Lab Results 12/02/24 12/02/24 12/02/24 Range/Units 13:14 13:26 18:40 WBC 5.6 (4.8-10.8) X10*3/uL RBC 5.10 (4.60-5.80) X10*6/uL Hgb 15.4 (14.0-18.0) g/dl Hct 43.5 (42.0-52.0) % MCV 85.3 (80.0-98.0) fL MCH 30.2 (27.0-33.0) pg MCHC 35.4 (31.0-36.0) g/dl RDW 13.3 (11.0-16.0) % Plt Count 104 L (160-400) X10*3/uL MPV 10.5 (9.4-12.4) fL Immature Gran % (Auto) 0.4 (0.0-0.4) % Neut % (Auto) 76.6 H (45-73) % Lymph % (Auto) 17.4 L (20-40) % [place]ascock % (Auto) 5.6 (2-11) % Eos % (Auto) 0.0 (0-4) % Baso % (Auto) 0.0 (0-2) % Lymph # (Auto) 1.0 L (1.2-4.9) X10*3/uL [place] # (Auto) 0.3 (0.1-1.2) X10*3/uL Eos # (Auto) 0.0 (0.0-0.4) X10*3/uL Baso # (Auto) 0.0 (0.0-0.2) X10*3/uL Abs Immat Gran (auto) 0.02 (0.00-0.03) X10*3/uL Absolute Neuts (auto) 4.3 (2.0-8.3) x10*3/uL Absolute Nucleated RBC 0.000 (0.0-0.012) X10*3/uL Nucleated RBC % (auto) 0.0 (0.0-0.2) /100WBC VBG pH 7.43 (7.32-7.43) VBG pCO2 31 mmHg VBG pO2 136 mmHg VBG HCO3 21 L (22-26) mmol/L VBG O2 Saturation 100.0 % VBG Base Excess -1.9 mmol/L Sodium 139 (135-145) mmol/L Potassium 4.1 (3.3-5.1) mmol/L Chloride 109 H (96-108) mmol/L Carbon Dioxide 18 L (22-29) mmol/L Anion Gap 16 (12-20) BUN 25 H (9-16) mg/dL Creatinine 1.28 (0.5-1.4) mg/dL Estim Creat Clear Calc 82.1 Estimated GFR 57 POC Glucose 118 H (60-115) mg/dL Random Glucose 314 H (60-115) mg/dL Calcium 9.2 (8.4-10.2) mg/dL Magnesium 1.9 (1.6-2.6) mg/dL Total Bilirubin 0.3 (0.0-1.0) mg/dL AST 38 H (5-37) U/L ALT 92 H (0-40) U/L Alkaline Phosphatase 165 H (39-117) U/L Troponin I High Sens < 2.7 (<3.5-35.0) ng/L Total Protein 7.0 (6.5-8.0) g/dL Albumin 4.0 (3.5-5.0) g/dL Beta-Hydroxybutyrate 0.18 (0.02-0.27) mmol/L Urine Color Urine Appearance Urine pH (5.0-9.0) Ur Specific [place] (1.005-1.025) Urine Protein (Neg-Trace) mg/dL Urine Glucose (UA) (Negative) mg/dL Urine Ketones (Negative) mg/dL Urine Blood (Negative) Urine Nitrite (Negative) Ur Leukocyte Esterase (Negative) Urine RBC (0-2) /HPF Urine WBC (0-5) /HPF Ur Squamous Epith Cells (0-2) /HPF Urine Bacteria (None Seen) Hyaline Casts (0-2) /LPF Influenza Type A (PCR) NEGATIVE (Negative) Influenza Type B (PCR) NEGATIVE (Negative) RSV RNA Qual (PCR) NEGATIVE (Negative) SARS-CoV-2 RNA (RT-PCR) NEGATIVE (Negative) 12/02/24 Range/Units 18:46 WBC (4.8-10.8) X10*3/uL RBC (4.60-5.80) X10*6/uL Hgb (14.0-18.0) g/dl Hct (42.0-52.0) % MCV (80.0-98.0) fL MCH (27.0-33.0) pg MCHC (31.0-36.0) g/dl RDW (11.0-16.0) % Plt Count (160-400) X10*3/uL MPV (9.4-12.4) fL Immature Gran % (Auto) (0.0-0.4) % Neut % (Auto) (45-73) % Lymph % (Auto) (20-40) % [place] % (Auto) (2-11) % Eos % (Auto) (0-4) % Baso % (Auto) (0-2) % Lymph # (Auto) (1.2-4.9) X10*3/uL [place] # (Auto) (0.1-1.2) X10*3/uL Eos # (Auto) (0.0-0.4) X10*3/uL Baso # (Auto) (0.0-0.2) X10*3/uL Abs Immat Gran (auto) (0.00-0.03) X10*3/uL Absolute Neuts (auto) (2.0-8.3) x10*3/uL Absolute Nucleated RBC (0.0-0.012) X10*3/uL Nucleated RBC % (auto) (0.0-0.2) /100WBC VBG pH (7.32-7.43) VBG pCO2 mmHg VBG pO2 mmHg VBG HCO3 (22-26) mmol/L VBG O2 Saturation % VBG Base Excess mmol/L Sodium (135-145) mmol/L Potassium (3.3-5.1) mmol/L Chloride (96-108) mmol/L Carbon Dioxide (22-29) mmol/L Anion Gap (12-20) BUN (9-16) mg/dL Creatinine (0.5-1.4) mg/dL Estim Creat Clear Calc Estimated GFR POC Glucose (60-115) mg/dL Random Glucose (60-115) mg/dL Calcium (8.4-10.2) mg/dL Magnesium (1.6-2.6) mg/dL Total Bilirubin (0.0-1.0) mg/dL AST (5-37) U/L ALT (0-40) U/L Alkaline Phosphatase (39-117) U/L Troponin I High Sens (<3.5-35.0) ng/L Total Protein (6.5-8.0) g/dL Albumin (3.5-5.0) g/dL Beta-Hydroxybutyrate (0.02-0.27) mmol/L Urine Color Yellow Urine Appearance Clear Urine pH 5.5 (5.0-9.0) Ur Specific [place] >= 1.030 H (1.005-1.025) Urine Protein Negative (Neg-Trace) mg/dL Urine Glucose (UA) >=1000 H (Negative) mg/dL Urine Ketones Negative (Negative) mg/dL Urine Blood Negative (Negative) Urine Nitrite Negative (Negative) Ur Leukocyte Esterase Negative (Negative) Urine RBC 0-2 (0-2) /HPF Urine WBC 0-5 (0-5) /HPF Ur Squamous Epith Cells 0-2 (0-2) /HPF Urine Bacteria None Seen (None Seen) Hyaline Casts 0-2 (0-2) /LPF Influenza Type A (PCR) (Negative) Influenza Type B (PCR) (Negative) RSV RNA Qual (PCR) (Negative) SARS-CoV-2 RNA (RT-PCR) (Negative) Discharge Plan Discharge Clinical Impression: Diabetes Patient Disposition: Home, Self-Care Instructions: Diabetes and Nutrition (ED), How to Check your Blood Sugar (ED) Prescriptions: No Action (DME) blood-glucose meter [FreeStyle Lite Meter] Kit See Rx Instructions .Route Qty: 1 5RF Rx Instructions: Tests 4 X/day cholecalciferol (vitamin D3) 25 mcg (1,000 unit) capsule 25 mcg PO DAILY Qty: 90 12RF bisacodyl 5 mg tablet,delayed release (DR/EC) 10 mg PO BID Qty: 90 0RF (DME) pen needle, diabetic [BD Ultra-Fine Orig Pen Needle] 29 gauge x 1/2 needle See Rx Instructions .ROUTE DAILY Qty: 100 3RF Rx Instructions: As directed daily (DME) lancets [FreeStyle Lancets] 28 gauge misc See Rx Instructions .Route Qty: 100 4RF Rx Instructions: Tests 5x/day (DME) FreeStyle Lite Strips Strip See Rx Instructions .Route Qty: 100 5RF Rx Instructions: Tests 5X/day metoclopramide HCl [Reglan] 10 mg tablet 10 mg PO TID Qty: 90 6RF glycerin (adult) Suppository 2 supp TX .after shower Qty: 25 6RF magnesium hydroxide [Milk of Magnesia] 400 mg/5 mL suspension 20 ml PO BEDTIME PRN (Reason: constipation) Qty: 3780 6RF (DME) blood-glucose meter [FreeStyle Lite Meter] Kit See Rx Instructions .ROUTE .MEDSUPPLY Qty: 1 0RF Rx Instructions: As directed atorvastatin 10 mg tablet 10 mg PO DAILY Qty: 90 0RF Jardiance 25 mg tablet 25 mg PO QAM Qty: 30 3RF (DME) FreeStyle Jody 3 [place] Misc See Rx Instructions .ROUTE .MEDSUPPLY Qty: 1 0RF Rx Instructions: As directed for use with freestyle jody 3+ sensor (DME) FreeStyle Jody 3 Plus Sensor Device See Rx Instructions .ROUTE .MEDSUPPLY Qty: 2 11RF Rx Instructions: every 15 days for continuous use ibuprofen 800 mg tablet 800 mg PO Q8H PRN (Reason: for pain) 30 Days Qty: 90 0RF Rx Instructions: take with food Fiber Therapy (m-cellulose) 500 mg tablet 1,000 mg PO TID Qty: 180 0RF docusate sodium 100 mg capsule 100 mg PO BID Qty: 60 0RF metformin 500 mg tablet 1,000 mg PO BID 90 Days Qty: 360 1RF gabapentin 300 mg capsule 300 mg PO BEDTIME 90 Days Qty: 90 1RF furosemide 20 mg tablet 20 mg PO DAILY Qty: 90 1RF Linzess 290 mcg capsule 290 mcg PO QAM Qty: 30 6RF benztropine 0.5 mg tablet 0.5 mg PO BID Metamucil (sugar) Powder 1 tsp PO BID Qty: 1254 0RF hydroxyzine pamoate 50 mg capsule 50 mg PO TID PRN (Reason: Anxiety) ketoconazole 2 % cream 1 appl topical DAILY Qty: 30 0RF acetaminophen 500 mg tablet 1,000 mg PO Q6H PRN (Reason: pain) Qty: 30 0RF cyclobenzaprine 10 mg tablet 10 mg PO DAILY PRN (Reason: muscle spasm) Qty: 10 0RF lidocaine 5 % adhesive patch,medicated 1 patch topical DAILY Qty: 15 0RF Rx Instructions: leave on most painful area for up to 12 hrs clozapine 100 mg tablet 100 mg PO TID polyethylene glycol 3350 [Miralax] 17 gram powder in packet 17 g PO BID Qty: 30 6RF sildenafil 50 mg tablet 50 mg PO DAILY PRN (Reason: sexual activity) Qty: 10 0RF Rx Instructions: administer 30 minutes to 4 hours before activity Debrox 6.5 % drops 5 drp otic (ear) left DAILY 4 Days Qty: 15 0RF guaifenesin 200 mg/5 mL liquid 400 mg PO Q6H PRN (Reason: cough) Qty: 118 0RF hydroxyzine pamoate 25 mg capsule PO ONCE simethicone 180 mg capsule 180 mg PO TID Tresiba FlexTouch U-200 200 unit/mL (3 mL) insulin pen 46 unit subcut DAILY 90 Days Qty: 21 3RF Referrals: Luis Manuel Garcia MD [Primary Care Provider] - 12/05/24 Interventions: ED Discharge Assessment Last Done: 12/02/24 20:55 Discharge Date/Time: 12/02/24 20:55 Print Language: Swazi
--- NOTE | 2024-12-02 13:01 | ECG_ITS ---
Test Reason : hyperglucose Blood Pressure : */* mmHG Vent. Rate : 88 BPM Atrial Rate : 88 BPM P-R Int : 140 ms QRS Dur : 98 ms QT Int : 400 ms P-R-T Axes : 28 -52 -2 degrees QTcB Int : 484 ms Normal sinus rhythm Left axis deviation Inferior infarct , age undetermined Cannot rule out Anterior infarct (cited on or before 26-Dec-2022) Abnormal ECG When compared with ECG of 26-Dec-2022 15:58, Inferior infarct is now Present Referred By: Cele Gonzales Electronically Signed By: NEVILLE SOTO
[2024-12-02 13:26] LABS: MANUAL DIFF FLAG NO
[2024-12-02 13:29] LABS: Venous Blood Gas Refer to POC result
[2024-12-02 13:30] LABS: VBG Base Excess -1.9 mmol/L; VBG HCO3 21 mmol/L (22-26); VBG pCO2 31 mmHg; VBG pH 7.43 (7.32-7.43); VBG pO2 136 mmHg
[2024-12-02 13:31] LABS: Hematocrit 43.5 % (42.0-52.0); Hemoglobin 15.4 g/dl (14.0-18.0); Imm Gran Abs Auto 0.02 X10*3/uL (0.00-0.03); Imm Gran Pct Auto 0.4 % (0.0-0.4); Lymphocytes Percent Auto 17.4 % (20-40); Mean Corpuscular HGB Conc 35.4 g/dl (31.0-36.0); Mean Corpuscular Hemoglobin 30.2 pg (27.0-33.0); Mean Corpuscular Volume 85.3 fL (80.0-98.0); Mean Platelet Volume 10.5 fL (9.4-12.4); Monocytes Absolute Auto 0.3 X10*3/uL (0.1-1.2); Monocytes Percent Auto 5.6 % (2-11); Neutrophils Absolute Auto 4.3 x10*3/uL (2.0-8.3); Neutrophils Percent Auto 76.6 % (45-73); Platelet Count 104 X10*3/uL (160-400); Red Cell Distribution Width 13.3 % (11.0-16.0); White Blood Count 5.6 X10*3/uL (4.8-10.8)
[2024-12-02 13:45] LABS: Alanine Aminotransferase 92 U/L (0-40); Anion Gap 16 (12-20); Aspartate Amino Transferase 38 U/L (5-37); Beta-Hydroxybutyrate 0.18 mmol/L (0.02-0.27); Bilirubin Total 0.3 mg/dL (0.0-1.0); Blood Urea Nitrogen 25 mg/dL (9-16); Calcium 9.2 mg/dL (8.4-10.2); Carbon Dioxide 18 mmol/L (22-29); Chloride 109 mmol/L (96-108); Creatinine Clr Calc Pharmacy 82.1; Estimated Glomerular Filt Rate 57; Glucose Random 314 mg/dL (60-115); Magnesium 1.9 mg/dL (1.6-2.6); Potassium 4.1 mmol/L (3.3-5.1); Sodium 139 mmol/L (135-145)
[2024-12-02 13:48] LABS: Alkaline Phosphatase 165 U/L (39-117)
[2024-12-02 13:53] LABS: Troponin-I High Sensitivity < 2.7 ng/L (<3.5-35.0)
[2024-12-02 14:21] LABS: Influenza A PCR NEGATIVE (Negative); Influenza B PCR NEGATIVE (Negative); Resp Syncy Virus RNA Qual PCR NEGATIVE (Negative); SARS COV2 PCR INHOUSE NEGATIVE (Negative)
--- OUTSIDE RECORDS SUMMARY | 2024-12-02 16:37 | XMS_ITS | Patient Health Record ---
[facility] [place] Address [address] [place] [address] Care Team Providers Care Lab Asst Name Role Phone Jose RENAE, Luis Manuel Primary Care Provider UnaTu Paul Unavailable [phone] Allergies No Known Allergies Results Component Value [...] Problem Acquired hammer toe of right foot (702557009179518 5) Other hammer toe(s) (acquired), right foot (M20.41) Active confirmed Problem Acquired hammer toe of left foot (017013706557279 3) Other hammer toe(s) (acquired), left foot (M20.42) Active confirmed Problem Type 2 diabetes mellitus without complication (918577993) Type 2 diabetes mellitus without complication (E11.9) Active confirmed Vital Signs Blood pressure diastolic 80 mm Hg 08/30/2024 Height 6ft in 08/30/2024 Blood pressure systolic 130 mm Hg 08/30/2024 Weight 270 lbs 08/30/2024 BMI 36.61 kg/m2 08/30/2024 Procedures Procedure Date Ordered Date Performed Result Body Sit e 65807-HHQQCJC NAIL, 6 OR MORE 03/08/2024 N/A 85451-Mbxxudeq Plate 03/08/2024 N/A 28229-EAXZ SKIN LESIONS, 2 TO 4 03/08/2024 N/A 24656-OSVICVK NAIL, 6 OR MORE 06/21/2024 N/A 65032-WQSA SKIN LESIONS, 2 TO 4 06/21/2024 N/A 09169-NUSZQRC NAIL, 6 OR MORE 08/30/2024 N/A 90517-QZBG SKIN LESIONS, 2 TO 4 08/30/2024 N/A Encounters Encounter Location Date Provider Diagnosis [facility] [place] [address] [place] [address] 03/08/2024 Tu Pierre Tinea unguium B35.1 ; [...] complication E11.9 and Ingrown nail L60.[address] [address] 06/21/2024 Tu Pierre Tinea unguium B35.1 ; Pain in right toe(s) M79.674 ; Pain in left toe(s) M79.675 ; Achilles tendinitis of right lower extremity M76.61 and Type 2 diabetes mellitus without complication E11.[address] [address] 08/30/2024 Tu Pierre Pain in right toe(s) M79.674 ; Tinea unguium B35.1 ; Pain in left toe(s) M79.675 ; Type 2 diabetes mellitus without complication E11.9 ; Other hammer toe(s) (acquired), right foot M20.41 and Other hammer toe(s) (acquired), left foot M20.[address] [address] 01/04/2024 Tu Pierre [address] [address] 04/17/2024 Tu Pierre [address] [address] 09/03/2024 Tu Pierre [address] [address] 10/01/2024 Tu Pierre Assessments Encounter Date Diagnosis [...] X ray : Foot, right 3V 03/08/2024 08585-XLHTBIF NAIL, 6 OR MORE 03/08/2024 47418-UOUTJJY NAIL, 6 OR MORE 06/21/2024 81110-OCSPLDT NAIL, 6 OR MORE 08/30/2024 77997-Dvooerjt Plate 03/08/2024 06223-ELOC SKIN LESIONS, 2 TO 4 03/08/20 24 98604-RGHO SKIN LESIONS, 2 TO 4 08/30/19 25 19980-CLEV SKIN LESIONS, 2 TO 4 06/21/20 Insurance Providers Payer Name Payer Address Payer Phone Subscriber Number Group Number Insured Name Patient Relationship to Insured Coverage Start Date Coverage End Date we [facility] Claims [address] [place] [phone] [id number] Mike Cornejo Self - patient is the insured Medical (General) History Medical History History ICD Code Diabetic Surgical History Surgery Date(Month/Year)
--- OUTSIDE RECORDS SUMMARY | 2024-12-02 16:37 | XMS_ITS ---
Author Organization [facility] Address [address] [place] [address] Care Team Providers Care Assembler Knife Name Role Phone Manny Garcia MDneth Primary Care Provider Unava ilable Tu Pierre Unavailable [phone] REASON FOR VISIT Last A1C Encounters Encounter Location Date Provider Diagnosis [facility] [address] [place] [address] 09/03/2024 Tu Pierre Plan Of Treatment No Information Progress Notes * Mike BAIRDDOB:[birth year] (63 yo M)Acc No.[id number]:09/03/2024 Patient:?Mike BAIRD :1960???Age:63 Y???Sex:Male Address:[address] [place], [address] * true * Date:? Generated for Tashi israel/Garrison/eTransmitting on:?12/02/2024 04:37 PM EDT
--- OUTSIDE RECORDS SUMMARY | 2024-12-02 16:37 | XMS_ITS ---
Author Organization [facility] Address [address] [place] [address] Care Team Providers Care Culinary Specialist Name Role Phone Manny Garcia MDneth Primary Care Provider Unava ilable Tu Pierre Unavailable [phone] REASON FOR VISIT cx 11/15 Encounters Encounter Location Date Provider Diagnosis [facility] [address] [place] [address] 10/01/2024 Tu Pierre Plan Of Treatment No Information Progress Notes * Mike BAIRDDOB:[birth year] (63 yo M)Acc No.[id number]:10/01/2024 Patient:?Mike BAIRD :1960???Age:63 Y???Sex:Male Address:[address] [place], [address] * true * Date:? Generated for Printi israel/Garrison/eTransmitting on:?12/02/2024 04:37 PM EDT
--- OUTSIDE RECORDS SUMMARY | 2024-12-02 16:37 | XMS_ITS ---
Author Organization [facility] Address [address] [place] [address] Care Team Providers Care Systems Architecture Analyst Name Role Phone Jose RENAE, Luis Manuel Primary Care Provider Unava ilTu [place] Unavailable [phone] Encounters Encounter Location Date Provider Diagnosis [facility] [address] [place] [address] 11/15/2024 Tu Pierre Plan Of Treatment No Information Progress Notes * Mike BAIRDDOB:[birth year] (64 yo M)Acc No.[id number]:11/15/2024 Progress Note Patient:?OLI Mike Provider:?Tu Pierre DPM :1960???Age:64 Y???Sex:Male Taurus e:11/15/2024 Address:[address] [place] [address] [id number] Pcp:Luis Manuel Garcia MD Subjective: * Chief [...] Pierre DPM Date:?2024 Generated for Ruthy wood/Garrison/eTransmitting on:?12/02/2024 04:37 PM EDT
[2024-12-02 16:44] VITALS: BP 108/81; PULSE 81; RESP 18; TEMP 36.3; O2SAT 97
--- NOTE | 2024-12-02 16:52 | ED_ITS ---
HPI - Weakness General Chief complaint: Weakness Stated complaint: high bs 350 Time Seen by Provider: 12/02/24 16:23 History of Present Illness HPI Narrative: Patient is a 64-year-old male with a long history of diabetes. Notice have generalized malaise weakness. Patient claims he noted a sugar of 320. There is no chest pain there is no nausea no vomiting. Feels generally weak. There is no change in his diet. There was no coughing or congestion or upper respiratory symptoms. No urinary symptoms. No new medication. Baseline is on metformin and also insulin. In addition patient's takes Jardiance. Related Data Home Medications ?Medication ?Instructions ?Recorded ?Confirmed hydroxyzine pamoate 50 mg capsule 50 mg PO TID PRN Anxiety 09/18/20 08/02/24 benztropine 0.5 mg tablet 0.5 mg PO BID 04/29/22 10/04/24 clozapine 100 mg tablet 100 mg PO TID 05/12/22 10/04/24 hydroxyzine pamoate 25 mg capsule mg PO ONCE 10/04/24 10/04/24 simethicone 180 mg capsule 180 mg PO TID 10/04/24 10/04/24 Previous Rx's ?Medication ?Instructions ?Recorded polyethylene glycol 3350 17 gram 17 g PO BID #30 ea 08/12/22 oral powder packet (Miralax) blood-glucose meter (FreeStyle #1 ea 03/27/23 Lite Meter kit) cholecalciferol (vitamin D3) 25 25 mcg PO DAILY #90 caps 12/21/23 mcg (1,000 unit) capsule ketoconazole 2 % topical cream 1 appl topical DAILY #30 grams 01/01/24 bisacodyl 5 mg tablet,delayed 10 mg (2 x 5 mg) PO BID #90 tabs 01/02/24 release acetaminophen 500 mg tablet 1,000 mg (2 x 500 mg) PO Q6H PRN 01/04/24 pain #30 tabs cyclobenzaprine 10 mg tablet 10 mg PO DAILY PRN muscle spasm 01/04/24 #10 tabs lidocaine 5 % topical patch 1 patch topical DAILY #15 ea 01/04/24 psyllium seed (sugar) oral powder 1 tsp PO BID #1,254 grams 03/07/24 (Metamucil (sugar) oral powder) pen needle, diabetic 29 gauge x #100 ea 04/24/24 (BD Ultra-Fine Original Pen Needle) sildenafil 50 mg tablet 50 mg PO DAILY PRN sexual activity 05/03/24 #10 tabs lancets 28 gauge (FreeStyle #100 ea 05/08/24 Lancets) blood sugar diagnostic (FreeStyle #100 ea 06/15/24 Lite Strips) carbamide peroxide 6.5 % ear drops 5 drp otic (ear) left DAILY 4 days 06/24/24 (Debrox) #15 mL glycerin (adult) 2 supp MO .after shower 06/28/24 constipation #25 ea metoclopramide HCl 10 mg tablet 10 mg PO TID #90 tabs 06/28/24 (Reglan) guaifenesin 200 mg/5 mL oral liquid 400 mg (10 mL) PO Q6H PRN cough 07/01/24 #118 mL magnesium hydroxide 400 mg/5 mL 20 ml PO BEDTIME PRN constipation 07/01/24 oral suspension (Milk of Magnesia) #3,780 mL blood-glucose meter (FreeStyle #1 ea 07/18/24 Lite Meter kit) atorvastatin 10 mg tablet 10 mg PO DAILY #90 tabs 09/16/24 empagliflozin 25 mg tablet 25 mg PO QAM #30 tabs 10/04/24 (Jardiance) blood-glucose sensor (FreeStyle #2 ea 10/09/24 Jody 3 Plus Sensor device) blood-glucose,facilities supervisor,cont #1 ea 10/09/24 (FreeStyle Jody 3 [place]) ibuprofen 800 mg tablet 800 mg PO Q8H PRN for pain 30 days 10/17/24 #90 tabs docusate sodium 100 mg capsule 100 mg PO BID #60 caps 10/29/24 metformin 500 mg tablet 1,000 mg (2 x 500 mg) PO BID 90 10/29/24 days #360 tabs methylcellulose (laxative) 500 mg 1,000 mg (2 x 500 mg) PO TID #180 10/29/24 tablet (Fiber Therapy tabs (methylcellulose)) gabapentin 300 mg capsule 300 mg PO BEDTIME 90 days #90 caps 11/01/24 furosemide 20 mg tablet 20 mg PO DAILY #90 tabs 11/10/24 linaclotide 290 mcg capsule 290 mcg PO QAM #30 caps 11/14/24 (Linzess) Tresiba FlexTouch U-200 200 46 unit (0.23 mL) subcut DAILY 90 11/28/24 unit/mL (3 mL) subcutaneous pen days #21 mL (insulin degludec) Allergies Allergy/AdvReac Type Severity Reaction Status Date / Time No Known Allergies Allergy Verified 12/02/24 12:59 [No Known Allergies*] Review of Systems 2 Review of Systems: Positive generalized malaise Yes all other systems are reviewed and are negative [facility]LY [facility] Past Medical History Attestation statement: The following information was validated with the patient. Medical History Impacted cerumen, right ear Acute diarrhea Pain in both feet Calcaneal spur of right foot Achilles tendinitis Callus of foot Right hand pain Abdominal bloating Vertigo Calcaneal spur Colon cancer screening COVID-19 Pre-op examination Elevated LFTs Encounter for Medicare annual wellness exam Bowel obstruction Melena Knee pain, bilateral Gastroenteritis Healed wound Chronic idiopathic constipation Chronic idiopathic constipation Hospital discharge follow-up Knee osteoarthritis Obesity (BMI 30-39.9) Schizoaffective disorder Pure hypercholesterolemia Benign essential hypertension Chronic kidney disease (CKD), stage III (moderate) Type 2 diabetes mellitus with diabetic chronic kidney disease Morbid obesity Dyslipidemia 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 mellitus 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 Diabetic polyneuropathy associated with 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 mellitus Schizo affective schizophrenia Diabetes type 2, uncontrolled Surgical History History of repair of congenital cleft palate Hx of circumcision Family History Family History Father HTN (hypertension) Mother Diabetes Other Mental health problem Social History Social History Household Members: None Housing: Apartment Are you a primary home health care physician to a significant other at home: No Do you presently have visiting nurse or other home services: Yes Alcohol intake: former Patient Tobacco Use Status: Former Tobacco user Tobacco use type: Cigarette Cigarettes Per Day: 15 Years Smoked: 8 quit 30 years ago e-Cigarette/Vaping Use: Never Used Second Hand Smoke Exposure: No Advance Directives: No Advance Directives Information Provided: Yes service: No Current occupational status: employed Current occupation: [employer] Cognitive needs: No Hearing needs: No Vision needs: Yes (glasses) Physical Exam 2 Vital Signs: Vital Signs: Last Vital Signs Temp 97.8 F 12/02/24 20:35 Pulse 71 12/02/24 20:35 Resp 18 12/02/24 20:35 BP 121/87 12/02/24 20:35 Pulse Ox 97 12/02/24 20:35 O2 Del Method Room Air 12/02/24 20:35 BMI result Body Mass Index 35.7 Appearance: Alert. Oriented X3. No acute distress. Eyes: Pupils equal, round and reactive to light. ENT: Pharynx normal. Neck: Normal inspection. Neck supple. No lymph nodes noted. No crepitus CVS: Normal heart rate and rhythm. Pulses normal. Normal S1 and S2 Respiratory: No respiratory distress. Breath sounds normal. No Wheezing. No rales Abdomen: Soft and nontender. No rigidity. No distention. good BS x4 Skin: Skin warm and dry. Normal skin color. Normal skin turgor. Extremities: No lower extremity edema. Neurovascular intact to all extremities. No Lacerations. No Rash Neuro: Oriented X 3. No motor deficit. No sensory deficit. Moving all extermities. No slurred speech Medications Administered Discontinued Medications Generic Name Dose Route Start Last Admin Trade Name Freq PRN Reason Stop Dose Admin Sodium Chloride 1,000 mls @ 999 mls/hr 12/02/24 17:00 12/02/24 18:38 Ns IV 12/02/24 18:00 Infused .Q1H1M [place] Infusion Medical Decision Making Medical Decision Making [facility] Narrative: My interpretation patient's EKG showed a sinus rhythm heart rate is 70 MO QRS QTC normal no acute ST segment changes EKG not changed from previous. Patient's electrolytes showed a sugar in the 300 range. There is no anion gap. Patient's beta hydroxybutyrate was 0.18. Bicarb was 18. Symptoms not consistent with diabetic ketoacidosis. Will give IV fluids for hydration. Patient's magnesium is normal at 1.9. COVID flu RSV were negative. Urine showed no signs of infection. White count is normal. Will monitor carefully after IV fluids and recheck patient's sugar. No acute distress. Patient's white count was normal. Hemoglobin is 15 no evidence for anemia. Patient's VBG showed no signs of DKA. Bicarb is 18 anion gap is normal patient's beta hydroxybutyrate was within therapeutic range. Urine has no ketones. COVID flu RSV negative. Patient to be discharged home Differential Diagnosis Differential Diagnoses: The differential diagnosis associated with the presentation includes Hyperglycemia, DKA, dehydration Admission/Observation Consideration of admission/observation: Escalation of care including admission/observation considered Lab Data MDM Lab Attestation statement: I reviewed the patient's lab results. 12/02/24 13:14 12/02/24 13:14 Labs: Lab Results 12/02/24 12/02/24 12/02/24 Range/Units 13:14 13:26 18:40 WBC 5.6 (4.8-10.8) X10*3/uL RBC 5.10 (4.60-5.80) X10*6/uL Hgb 15.4 (14.0-18.0) g/dl Hct 43.5 (42.0-52.0) % MCV 85.3 (80.0-98.0) fL MCH 30.2 (27.0-33.0) pg MCHC 35.4 (31.0-36.0) g/dl RDW 13.3 (11.0-16.0) % Plt Count 104 L (160-400) X10*3/uL MPV 10.5 (9.4-12.4) fL Immature Gran % (Auto) 0.4 (0.0-0.4) % Neut % (Auto) 76.6 H (45-73) % Lymph % (Auto) 17.4 L (20-40) % [place] % (Auto) 5.6 (2-11) % Eos % (Auto) 0.0 (0-4) % Baso % (Auto) 0.0 (0-2) % Lymph # (Auto) 1.0 L (1.2-4.9) X10*3/uL [place] # (Auto) 0.3 (0.1-1.2) X10*3/uL Eos # (Auto) 0.0 (0.0-0.4) X10*3/uL Baso # (Auto) 0.0 (0.0-0.2) X10*3/uL Abs Immat Gran (auto) 0.02 (0.00-0.03) X10*3/uL Absolute Neuts (auto) 4.3 (2.0-8.3) x10*3/uL Absolute Nucleated RBC 0.000 (0.0-0.012) X10*3/uL Nucleated RBC % (auto) 0.0 (0.0-0.2) /100WBC VBG pH 7.43 (7.32-7.43) VBG pCO2 31 mmHg VBG pO2 136 mmHg VBG HCO3 21 L (22-26) mmol/L VBG O2 Saturation 100.0 % VBG Base Excess -1.9 mmol/L Sodium 139 (135-145) mmol/L Potassium 4.1 (3.3-5.1) mmol/L Chloride 109 H (96-108) mmol/L Carbon Dioxide 18 L (22-29) mmol/L Anion Gap 16 (12-20) BUN 25 H (9-16) mg/dL Creatinine 1.28 (0.5-1.4) mg/dL Estim Creat Clear Calc 82.1 Estimated GFR 57 POC Glucose 118 H (60-115) mg/dL Random Glucose 314 H (60-115) mg/dL Calcium 9.2 (8.4-10.2) mg/dL Magnesium 1.9 (1.6-2.6) mg/dL Total Bilirubin 0.3 (0.0-1.0) mg/dL AST 38 H (5-37) U/L ALT 92 H (0-40) U/L Alkaline Phosphatase 165 H (39-117) U/L Troponin I High Sens < 2.7 (<3.5-35.0) ng/L Total Protein 7.0 (6.5-8.0) g/dL Albumin 4.0 (3.5-5.0) g/dL Beta-Hydroxybutyrate 0.18 (0.02-0.27) mmol/L Urine Color Urine Appearance Urine pH (5.0-9.0) Ur Specific [place] (1.005-1.025) Urine Protein (Neg-Trace) mg/dL Urine Glucose (UA) (Negative) mg/dL Urine Ketones (Negative) mg/dL Urine Blood (Negative) Urine Nitrite (Negative) Ur Leukocyte Esterase (Negative) Urine RBC (0-2) /HPF Urine WBC (0-5) /HPF Ur Squamous Epith Cells (0-2) /HPF Urine Bacteria (None Seen) Hyaline Casts (0-2) /LPF Influenza Type A (PCR) NEGATIVE (Negative) Influenza Type B (PCR) NEGATIVE (Negative) RSV RNA Qual (PCR) NEGATIVE (Negative) SARS-CoV-2 RNA (RT-PCR) NEGATIVE (Negative) 12/02/24 Range/Units 18:46 WBC (4.8-10.8) X10*3/uL RBC (4.60-5.80) X10*6/uL Hgb (14.0-18.0) g/dl Hct (42.0-52.0) % MCV (80.0-98.0) fL MCH (27.0-33.0) pg MCHC (31.0-36.0) g/dl RDW (11.0-16.0) % Plt Count (160-400) X10*3/uL MPV (9.4-12.4) fL Immature Gran % (Auto) (0.0-0.4) % Neut % (Auto) (45-73) % Lymph % (Auto) (20-40) % [place] % (Auto) (2-11) % Eos % (Auto) (0-4) % Baso % (Auto) (0-2) % Lymph # (Auto) (1.2-4.9) X10*3/uL [place] # (Auto) (0.1-1.2) X10*3/uL Eos # (Auto) (0.0-0.4) X10*3/uL Baso # (Auto) (0.0-0.2) X10*3/uL Abs Immat Gran (auto) (0.00-0.03) X10*3/uL Absolute Neuts (auto) (2.0-8.3) x10*3/uL Absolute Nucleated RBC (0.0-0.012) X10*3/uL Nucleated RBC % (auto) (0.0-0.2) /100WBC VBG pH (7.32-7.43) VBG pCO2 mmHg VBG pO2 mmHg VBG HCO3 (22-26) mmol/L VBG O2 Saturation % VBG Base Excess mmol/L Sodium (135-145) mmol/L Potassium (3.3-5.1) mmol/L Chloride (96-108) mmol/L Carbon Dioxide (22-29) mmol/L Anion Gap (12-20) BUN (9-16) mg/dL Creatinine (0.5-1.4) mg/dL Estim Creat Clear Calc Estimated GFR POC Glucose (60-115) mg/dL Random Glucose (60-115) mg/dL Calcium (8.4-10.2) mg/dL Magnesium (1.6-2.6) mg/dL Total Bilirubin (0.0-1.0) mg/dL AST (5-37) U/L ALT (0-40) U/L Alkaline Phosphatase (39-117) U/L Troponin I High Sens (<3.5-35.0) ng/L Total Protein (6.5-8.0) g/dL Albumin (3.5-5.0) g/dL Beta-Hydroxybutyrate (0.02-0.27) mmol/L Urine Color Yellow Urine Appearance Clear Urine pH 5.5 (5.0-9.0) Ur Specific [place] >= 1.030 H (1.005-1.025) Urine Protein Negative (Neg-Trace) mg/dL Urine Glucose (UA) >=1000 H (Negative) mg/dL Urine Ketones Negative (Negative) mg/dL Urine Blood Negative (Negative) Urine Nitrite Negative (Negative) Ur Leukocyte Esterase Negative (Negative) Urine RBC 0-2 (0-2) /HPF Urine WBC 0-5 (0-5) /HPF Ur Squamous Epith Cells 0-2 (0-2) /HPF Urine Bacteria None Seen (None Seen) Hyaline Casts 0-2 (0-2) /LPF Influenza Type A (PCR) (Negative) Influenza Type B (PCR) (Negative) RSV RNA Qual (PCR) (Negative) SARS-CoV-2 RNA (RT-PCR) (Negative) External Record Review External record reviewed: Inpatient record Chronic Conditions Patient?s care impacted by: Diabetes Discharge Plan Discharge Clinical Impression: Diabetes Patient Disposition: Home, Self-Care Instructions: Diabetes and Nutrition (ED), How to Check your Blood Sugar (ED) Prescriptions: No Action (DME) blood-glucose meter [FreeStyle Lite Meter] Kit See Rx Instructions .Route Qty: 1 5RF Rx Instructions: Tests 4 X/day cholecalciferol (vitamin D3) 25 mcg (1,000 unit) capsule 25 mcg PO DAILY Qty: 90 12RF bisacodyl 5 mg tablet,delayed release (DR/EC) 10 mg PO BID Qty: 90 0RF (DME) pen needle, diabetic [BD Ultra-Fine Orig Pen Needle] 29 gauge x 1/2 needle See Rx Instructions .ROUTE DAILY Qty: 100 3RF Rx Instructions: As directed daily (DME) lancets [FreeStyle Lancets] 28 gauge misc See Rx Instructions .Route Qty: 100 4RF Rx Instructions: Tests 5x/day (DME) FreeStyle Lite Strips Strip See Rx Instructions .Route Qty: 100 5RF Rx Instructions: Tests 5X/day metoclopramide HCl [Reglan] 10 mg tablet 10 mg PO TID Qty: 90 6RF glycerin (adult) Suppository 2 supp MO .after shower Qty: 25 6RF magnesium hydroxide [Milk of Magnesia] 400 mg/5 mL suspension 20 ml PO BEDTIME PRN (Reason: constipation) Qty: 3780 6RF (DME) blood-glucose meter [FreeStyle Lite Meter] Kit See Rx Instructions .ROUTE .MEDSUPPLY Qty: 1 0RF Rx Instructions: As directed atorvastatin 10 mg tablet 10 mg PO DAILY Qty: 90 0RF Jardiance 25 mg tablet 25 mg PO QAM Qty: 30 3RF (DME) FreeStyle Jody 3 [place] Misc See Rx Instructions .ROUTE .MEDSUPPLY Qty: 1 0RF Rx Instructions: As directed for use with freestyle jody 3+ sensor (DME) FreeStyle Jody 3 Plus Sensor Device See Rx Instructions .ROUTE .MEDSUPPLY Qty: 2 11RF Rx Instructions: every 15 days for continuous use ibuprofen 800 mg tablet 800 mg PO Q8H PRN (Reason: for pain) 30 Days Qty: 90 0RF Rx Instructions: take with food Fiber Therapy (m-cellulose) 500 mg tablet 1,000 mg PO TID Qty: 180 0RF docusate sodium 100 mg capsule 100 mg PO BID Qty: 60 0RF metformin 500 mg tablet 1,000 mg PO BID 90 Days Qty: 360 1RF gabapentin 300 mg capsule 300 mg PO BEDTIME 90 Days Qty: 90 1RF furosemide 20 mg tablet 20 mg PO DAILY Qty: 90 1RF Linzess 290 mcg capsule 290 mcg PO QAM Qty: 30 6RF benztropine 0.5 mg tablet 0.5 mg PO BID Metamucil (sugar) Powder 1 tsp PO BID Qty: 1254 0RF hydroxyzine pamoate 50 mg capsule 50 mg PO TID PRN (Reason: Anxiety) ketoconazole 2 % cream 1 appl topical DAILY Qty: 30 0RF acetaminophen 500 mg tablet 1,000 mg PO Q6H PRN (Reason: pain) Qty: 30 0RF cyclobenzaprine 10 mg tablet 10 mg PO DAILY PRN (Reason: muscle spasm) Qty: 10 0RF lidocaine 5 % adhesive patch,medicated 1 patch topical DAILY Qty: 15 0RF Rx Instructions: leave on most painful area for up to 12 hrs clozapine 100 mg tablet 100 mg PO TID polyethylene glycol 3350 [Miralax] 17 gram powder in packet 17 g PO BID Qty: 30 6RF sildenafil 50 mg tablet 50 mg PO DAILY PRN (Reason: sexual activity) Qty: 10 0RF Rx Instructions: administer 30 minutes to 4 hours before activity Debrox 6.5 % drops 5 drp otic (ear) left DAILY 4 Days Qty: 15 0RF guaifenesin 200 mg/5 mL liquid 400 mg PO Q6H PRN (Reason: cough) Qty: 118 0RF hydroxyzine pamoate 25 mg capsule PO ONCE simethicone 180 mg capsule 180 mg PO TID Tresiba FlexTouch U-200 200 unit/mL (3 mL) insulin pen 46 unit subcut DAILY 90 Days Qty: 21 3RF Referrals: Luis Manuel Garcia MD [Primary Care Provider] - 12/05/24 Print Language: [place] Island[place]
[2024-12-02] MEDS: 0.9 % Sodium Chloride 1,000 ML 999 ML IV (17:01)
[2024-12-02 18:42] VITALS: BP 103/64; PULSE 79; RESP 18; TEMP 36.5; O2SAT 98
[2024-12-02 18:44] LABS: Glucose, Whole Blood 118 mg/dL (60-115)
[2024-12-02 18:52] LABS: Appearance Urine Clear; Color Urine Yellow; Glucose Urine UA >=1000 mg/dL (Negative); Leukocyte Esterase Urine Negative (Negative); Nitrite Urine Negative (Negative); PH 5.5 (5.0-9.0); Specific Gravity - Urine >= 1.030 (1.005-1.025); UMIC TRIGGER UACC YES; Urine Blood Negative (Negative); Urine Ketones Negative (Negative); Urine Protein Negative (Neg-Trace)
[2024-12-02 19:47] LABS: Bacteria Urine None Seen (None Seen); Hyaline Casts Urine 0-2 /LPF (0-2); RBC Urine 0-2 /HPF (0-2); Squamous Epithelial Cell Urine 0-2 /HPF (0-2); WBC Urine 0-5 /HPF (0-5)
[2024-12-02 20:35] VITALS: BP 121/87; PULSE 71; RESP 18; TEMP 36.6; O2SAT 97
[2024-12-02 20:55] VITALS: BP 121/87; PULSE 71; RESP 18; TEMP 36.6; O2SAT 97
== END 2024-12-02 20:55 | disposition home or self-care (01) ==
PROVIDERS: Registered Nurse Emergency; Emergency Provider Emergency Medicine Emergency Medical Services; PCP Internal Medicine
DX: E11.65 Type 2 diabetes mellitus with hyperglycemia (principal); R53.1 Weakness; R11.0 Nausea; R94.31 Abnormal electrocardiogram [ECG] [EKG]; Z79.899 Other long term (current) drug therapy; Z79.84 Long term (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 of oral hypoglycemic drugs; Z87.891 Personal history of nicotine dependence; Z03.818 Encounter for observation for suspected exposure to other biological agents ruled out
CPT/HCPCS: 0241U; 36415; 80053; 81001; 82010; 82803; 82947; 83735; 84484; 85025; 93005; 96360; 96361; 99284

== ENCOUNTER → 2024-12-02 13:01 | Outpatient (BNV) | payer OTHER, SELFPAY | PROVIDERS: Emergency Provider Emergency Medicine Emergency Medical Services; PCP Internal Medicine; Visit Provider Internal Medicine | DX: R94.31 Abnormal electrocardiogram [ECG] [EKG] (principal); R73.9 Hyperglycemia, unspecified | CPT/HCPCS: 93010 ==

== ENCOUNTER 2024-12-03 09:39 | Outpatient (AMB) | payer OTHER, SELFPAY ==
--- NOTE | 2024-12-03 09:07 | A.OFFVIS_ITS ---
Vital Signs 12/03/24 09:49 Height 6 ft 1 in Weight 268 lb 15.423 oz BMI 35.5 BP 102/68 Blood Pressure Location Rt brachial Position Sitting Pulse 96 Pulse Source Pulse Oximeter Pulse Oximetry (%) 98 Oxygen Delivery Method Room Air Intake Visit Reasons: T2DM Intake Note: Patient presents today for a follow-up for Type 2 Diabetes Mellitus: Patient was in the ED last night with high blood sugars Last Diabetic eye exam was on: 08/08/2024, [place] [facility]. Last Podiatry exam was on: 08/30/2024, Shahid Director Clinical Research Most recent HbA1c: 7.8% 10/31/2024 Random Glucose- 203 mg/dL, Today Bilingual Inside Sales Representative Required: No Accompanied by: Self / Same As Patient Allergies No Known Allergies [No Known Allergies*] Allergy (Verified 01/01/25 09:12) HPI Comments Details: This is an interim f/u visit for Richardubaldo who was seen twice earlier this month and was advised at the first visit to increase Tresiba and at the second visit to start a short acting insuin which he declined. He was subsequently seen in the emergency room with a sugar of 320 earlier that day. He presents today for adjustment of his medication Current medications Tresiba U200 46 units in the am Jardiance 25mg metformin 1,000mg BID mounjaro 2.5mg weekly hasn't started yet average glucose 200 PFSH Medical History Impacted cerumen, right ear Acute diarrhea Pain in both feet Calcaneal spur of right foot Achilles tendinitis Callus of foot Right hand pain Abdominal bloating Vertigo Calcaneal spur Colon cancer screening COVID-19 Pre-op examination Elevated LFTs Encounter for Medicare annual wellness exam Bowel obstruction Melena Knee pain, bilateral Gastroenteritis Healed wound Chronic idiopathic constipation Chronic idiopathic constipation Hospital discharge follow-up Knee osteoarthritis Obesity (BMI 30-39.9) Schizoaffective disorder Pure hypercholesterolemia Benign essential hypertension Chronic kidney disease (CKD), stage III (moderate) Type 2 diabetes mellitus with diabetic chronic kidney disease Morbid obesity Dyslipidemia 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 mellitus 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 Diabetic polyneuropathy associated with 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 mellitus Schizo affective schizophrenia Diabetes type 2, uncontrolled Surgical History History of repair of congenital cleft palate Hx of circumcision Family History Father HTN (hypertension) Mother Diabetes Other Mental health problem Social History Household Members: None Housing: Apartment Are you a primary healthcare consulting manager to a significant other at home: No Do you presently have visiting nurse or other home services: Yes Alcohol intake: former Patient Tobacco Use Status: Former Tobacco user Tobacco use type: Cigarette Cigarettes Per Day: 15 Years Smoked: 8 quit 30 years ago e-Cigarette/Vaping Use: Never Used Second Hand Smoke Exposure: No service: No Current occupational status: employed Current occupation: [employer] Cognitive needs: No Hearing needs: No Vision needs: Yes (glasses) Physical Exam Vital Signs: Last Vital Signs Pulse 96 12/03/24 09:49 BP 102/68 12/03/24 09:49 Pulse Ox 98 12/03/24 09:49 Oxygen Delivery Method Room Air 12/03/24 09:49 BMI result Body Mass Index 35.5 Const Other: Absence of Cushingoid features. Absence of acromegalic features. Neck exam reveals nl size thyroid about 15 gms. No thyroid nodules palpable. Heart S1 S2, Reg R/R. No M/R G. Skin exam reveals absence of vitiligo or acanthosis nigricans. Results Reviewed Results Reviewed: Laboratory Last Values Glucose (Clinic) 203 mg/dL (60-115) H 12/03/24 09:52 Assessment & Plan Assessment & Plan (1) Type 2 diabetes mellitus with diabetic chronic kidney disease: Code(s): E11.22 - Type 2 diabetes mellitus with diabetic chronic kidney disease Category: Medical Qualifiers: Diabetes mellitus skilled nursing insulin use: with predatory animal exterminator use Chronic kidney disease stage: stage 3 (moderate) Chronic kidney disease stage 3 subtype: unspecified whether 3a or 3b Qualified Code(s): E11.22 - Type 2 diabetes mellitus with diabetic chronic kidney disease; N18.30 - Chronic kidney disease, stage 3 unspecified; Z79.4 - 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 Plan: See below Plan 64-year-old type 2 diabetic with glucose readings in the 200 last A1c 7.8% up from 6.3% He will continue Mounjaro and tresiba All side effects of GLP 1 agonist reviewed Add 4 units short-acting insulin once daily with his biggest meal Onset of action and duration of short-acting insulin and timing with the meal was discussed Medications: New tirzepatide (Mounjaro) 2.5 mg (0.5 mL) subcut QWEEK 2 mL 11RF 4 weeks Humalog KwikPen Insulin (insulin lispro) 4 units (0.04 mL) subcut DAILY 3 mL 6RF 30 days NS Changed From Tresiba FlexTouch U-200 46 units (0.23 mL) subcut DAILY 90 days 21 mL 3RF NS E11.42 - Type 2 diabetes mellitus with diabetic polyneuropathy To Tresiba FlexTouch U-200 (insulin degludec) 50 units (0.25 mL) subcut DAILY 24 mL 3RF 90 days NS E11.42 - Type 2 diabetes mellitus with diabetic polyneuropathy Coding Level of Care Code Est Pt Level 2 (39176) Diagnoses Type 2 diabetes mellitus with stage 3 chronic kidney disease, with long-term current use of insulin, unspecified whether stage 3a or 3b CKD E11.22; N18.30; Z79.4 Diabetes mellitus predatory animal exterminator insulin use: with predatory animal exterminator use Chronic kidney disease stage: stage 3 (moderate) Chronic kidney disease stage 3 subtype: unspecified whether 3a or 3b Time Spent (min) 15 Comment Time spent reviewing labs/provider notes, face to face, chart doc
[2024-12-03 09:49] VITALS: BP 102/68; PULSE 96; O2SAT 98; BMI 35.5
[2024-12-03 09:59] LABS: Glucose, Whole Blood 203 mg/dL (60-115)
--- OUTSIDE RECORDS SUMMARY | 2024-12-03 10:42 | XMS_ITS ---
Author Organization [facility] Address [address] [place] [address] Care Team Providers Care Male Infertility Specialist Name Role Phone Manny Garcia MDneth Primary Care Provider Unava ilable Tu Pierre Unavailable [phone] REASON FOR VISIT cx 11/15 Encounters Encounter Location Date Provider Diagnosis [facility] [address] [place] [address] 10/01/2024 Tu Pierre Plan Of Treatment No Information Progress Notes * Mike BAIRDDOB:[birth year] (63 yo M)Acc No.[id number]:10/01/2024 Patient:?Mike BAIRD :1960???Age:63 Y???Sex:Male Address:[address] [place], [address] * true * Date:? Generated for Printi israel/Garrison/eTransmitting on:?12/03/2024 10:42 AM EDT
--- OUTSIDE RECORDS SUMMARY | 2024-12-03 10:42 | XMS_ITS ---
Author Organization [facility] Address [address] [place] [address] Care Team Providers Care Supervisor Of Way Name Role Phone Manny Garcia MDneth Primary Care Provider Unava ilable Tu Pierre Unavailable [phone] REASON FOR VISIT Last A1C Encounters Encounter Location Date Provider Diagnosis [facility] [address] [place] [address] 09/03/2024 Tu Pierre Plan Of Treatment No Information Progress Notes * Mike BAIRDDOB:[birth year] (63 yo M)Acc No.[id number]:09/03/2024 Patient:?Mike BAIRD :1960???Age:63 Y???Sex:Male Address:[address] [place], [address] * true * Date:? Generated for Tashi israel/Garrison/eTransmitting on:?12/03/2024 10:42 AM EDT
--- OUTSIDE RECORDS SUMMARY | 2024-12-03 10:42 | XMS_ITS | Patient Health Record ---
Author Organization [facility] [place] Address [address] [facility] [place] [address] Care Team Providers Care Coordinator Hotels Name Role Phone Jose RENAE, Luis Manuel Primary Care Provider UnaTu Paul Unavailable [phone] Allergies No Known Allergies Results Component Value [...] Problem Acquired hammer toe of right foot (037589753580324 5) Other hammer toe(s) (acquired), right foot (M20.41) Active confirmed Problem Acquired hammer toe of left foot (373572760538565 3) Other hammer toe(s) (acquired), left foot (M20.42) Active confirmed Problem Type 2 diabetes mellitus without complication (597061524) Type 2 diabetes mellitus without complication (E11.9) Active confirmed Vital Signs Blood pressure diastolic 80 mm Hg 08/30/2024 Height 6ft in 08/30/2024 Blood pressure systolic 130 mm Hg 08/30/2024 Weight 270 lbs 08/30/2024 BMI 36.61 kg/m2 08/30/2024 Procedures Procedure Date Ordered Date Performed Result Body Sit e 67412-BITNTDE NAIL, 6 OR MORE 03/08/2024 N/A 82683-Dftiryos Plate 03/08/2024 N/A 11302-DEOM SKIN LESIONS, 2 TO 4 03/08/2024 N/A 15737-JOSLFYP NAIL, 6 OR MORE 06/21/2024 N/A 85333-IRCM SKIN LESIONS, 2 TO 4 06/21/2024 N/A 00442-HFORGMB NAIL, 6 OR MORE 08/30/2024 N/A 47010-TXFI SKIN LESIONS, 2 TO 4 08/30/2024 N/A Encounters Encounter Location Date Provider Diagnosis [facility] [place] [address] [place] [address] 03/08/2024 Tu Pierre Tinea unguium B35.1 ; [...] without complication E11.9 and Ingrown nail L60.[address] [address] 06/21/2024 Tu Pierre Tinea unguium B35.1 ; Pain in right toe(s) M79.674 ; Pain in left toe(s) M79.675 ; Achilles tendinitis of right lower extremity M76.61 and Type 2 diabetes mellitus without complication E11.[address] [address] 08/30/2024 Tu Pierre Pain in right toe(s) M79.674 ; Tinea unguium B35.1 ; Pain in left toe(s) M79.675 ; Type 2 diabetes mellitus without complication E11.9 ; Other hammer toe(s) (acquired), right foot M20.41 and Other hammer toe(s) (acquired), left foot M20.[address] [address] 01/04/2024 Tu Pierre [address] [address] 04/17/2024 Tu Pierre [address] [address] 09/03/2024 Tu Pierre [address] [address] 10/01/2024 Tu Pierre Assessments Encounter Date Diagnosis [...] X ray : Foot, right 3V 03/08/2024 64343-SXNUSYI NAIL, 6 OR MORE 03/08/2024 81142-IPCCFQL NAIL, 6 OR MORE 06/21/2024 37718-KYVROMW NAIL, 6 OR MORE 08/30/2024 03365-Bsykxnva Plate 03/08/2024 52819-YSBG SKIN LESIONS, 2 TO 4 03/08/20 24 60087-IOJX SKIN LESIONS, 2 TO 4 08/30/19 25 31952-BOTO SKIN LESIONS, 2 TO 4 06/21/20 Insurance Providers Payer Name Payer Address Payer Phone Subscriber Number Group Number Insured Name Patient Relationship to Insured Coverage Start Date Coverage End Date we [facility] SCO Claims [address] [place] [address] [phone] [id number] Mike Cornejo Self - patient is the insured Medical (General) History Medical History History ICD Code Diabetic Surgical History Surgery Date(Month/Year)
--- OUTSIDE RECORDS SUMMARY | 2024-12-03 10:43 | XMS_ITS ---
Author Organization [facility] Address [address] [place] [address] Care Team Providers Care Backrest Assembler Name Role Phone Jose RENAE, Luis Manuel Primary Care Provider Unava ilTu [place] Unavailable [phone] Encounters Encounter Location Date Provider Diagnosis [facility] [address] [place] [address] 11/15/2024 Tu Pierre Plan Of Treatment No Information Progress Notes * Mike BAIRDDOB:[birth year] (64 yo M)Acc No.[id number]:11/15/2024 Progress Note Patient:?OLI Mike Provider:?Tu Pierre DPM :1960???Age:64 Y???Sex:Male Taurus e:11/15/2024 Address:[address] [place] [address] [id number] Pcp:Luis Manuel Garcia MD Subjective: * Chief [...] Pierre DPM Date:?2024 Generated for Ruthy wood/Garrison/eTransmitting on:?12/03/2024 10:42 AM EDT
== END 2024-12-03 10:24 | disposition home or self-care (01) ==
LOC: HO.ENCR 09:39
PROVIDERS: PCP Internal Medicine; Visit Provider Nurse Practitioner Adult Health
DX: E11.22 Type 2 diabetes mellitus with diabetic chronic kidney disease (principal); N18.30 Chronic kidney disease, stage 3 unspecified; Z79.4 Long term (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
CPT/HCPCS: 99212

== ENCOUNTER → 2024-12-03 09:39 | Outpatient (BNVA) | payer OTHER, SELFPAY | PROVIDERS: PCP Internal Medicine; Visit Provider Nurse Practitioner Adult Health | DX: E11.22 Type 2 diabetes mellitus with diabetic chronic kidney disease (principal); N18.30 Chronic kidney disease, stage 3 unspecified; Z79.4 Long term (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 | CPT/HCPCS: 82947; 99212 ==

== ENCOUNTER 2024-12-10 09:45 | Outpatient (AMB) | payer OTHER, SELFPAY ==
--- OUTSIDE RECORDS SUMMARY | 2024-12-10 10:53 | XMS_ITS ---
Author Organization [facility] Address [address] [place] [address] Care Team Providers Care Instructor Warper Name Role Phone Manny Garcia MDneth Primary Care Provider Unava ilable Tu Pierre Unavailable [phone] REASON FOR VISIT cx 11/15 Encounters Encounter Location Date Provider Diagnosis [facility] [address] [place] [address] 10/01/2024 Tu Pierre Plan Of Treatment No Information Progress Notes * Mike BAIRDDOB:[birth year] (63 yo M)Acc No.[id number]:10/01/2024 Patient:?Mike BAIRD :1960???Age:63 Y???Sex:Male Address:[address] [place], [address] * true * Date:? Generated for Printi israel/Garrison/eTransmitting on:?12/10/2024 10:53 AM EDT
--- OUTSIDE RECORDS SUMMARY | 2024-12-10 10:53 | XMS_ITS ---
Author Organization [facility] Address [address] [place] [address] Care Team Providers Care Leach Runner Name Role Phone Luis Manuel Garcia MD Primary Care Provider Unava ilTu [place] Unavailable [phone] REASON FOR VISIT heel pain, Heel pain Problems Problem Type SNOMED Code ICD Code Onset Dates Problem Status W/U Status Risk Notes Problem Plantar fascial fibromatosis (11090473) Plantar fascial fibromatosis (M72.2) Active confirmed Encounters Encounter Location Date Provider Diagnosis [facility] [address] [place] [address] 12/06/2024 Tu Pierre Plantar fascial fibromatosis M72.2 Assessments Encounter Date Diagnosis (ICD Code) Assessment Notes Treatment Notes Treatment Clinical Notes Section Notes 12/06/2024 Plantar fascial fibromatosis (ICD-10 - M72.2) Plan Of Treatment No Information Progress Notes * Mike BAIRDDOB:[birth year] (64 yo M)Acc No.[id number]:12/06/2024 Patient:?Mike BAIRD :1960???Age:64 Y???Sex:Male Address:[address] [place], [address] * true * Date:? Generated for Ruthy wood/Garrison/eTransmitting on:?12/10/2024 10:52 AM EDT History and Physical Notes * HPI (History of Present Illness) Category Sub-Category Detail Notes Category Not es Heel pain Duration: Nature: Severity/Quality: Location: Onset/Cause: Aggravated: Course: Treatments: Examination Category Sub-Category Detail Notes Category Not es Heel Pain INSPECTION REVEALS: POP Plantar Fascia med. and central bands, intrinsic musc., infracalcaneal bursa, and med calc tubercle . No pain: posterior/superior heel, achilles bursa/tendon, sinus tarsi, peroneals; no limited STJ ROM, calor, or eccymosis. Pain on Heel Compression absent Neurological SENSORY: Neurological exa m reveals intact sensorium, pain sensation normal, vibration sensation intact, pinprick sensation is normal in the lower extremities, pt denies, anesthesia, burning, paresthesia, tingling, B/L BABINSKI REFLEX: Absent, B/L TINEL'S COMPRESSION: Negative tarsal niesha ana m, cee pedis, and medial calcaneal nerves, B/L Dermatologic SKIN FINDINGS: Skin exam reveal s normal texture, elasticity, and tugor. There are no masses. The interspaces are clear Orthopedic GAIT ABNORMALITY: pronated, abducted, B/L FOOT MORPHOLOGY: MUSCLE STRENGTH: 5/5 all groups in a symmetrical fashion B/L General Examination GENERAL APPEARANCE: pleasant , alert, well nourished, well developed, well hydrated, with good attention to hygene/body habitus, and in no acute distress ORIENTED: person,place, and ti me Vascular DP PULSES (B): 2/4, B/L PT PULSES (B): 2/4, B/L CAPILLARY FILL TIME: 3 secs. per digit, B/L TEMPERTURE GRADIENT (C): warm to cool, p roximal to distal, B/L TROPHIC CONDITION-TEXTURE/ELASTICITY/TURGOR/HAIR GROWTH (B): normal, B/L EDEMA (C): no edema X-Rays - IMAGING REPORT Views:
--- OUTSIDE RECORDS SUMMARY | 2024-12-10 10:53 | XMS_ITS ---
Author Organization [facility] Address [address] [place] [address] Care Team Providers Care Supervisor Fruit Grading Name Role Phone Jose RENAE, Luis Manuel Primary Care Provider Unava ilTu [place] Unavailable [phone] Encounters Encounter Location Date Provider Diagnosis [facility] [address] [place] [address] 11/15/2024 Tu Pierre Plan Of Treatment No Information Progress Notes * Mike BAIRDDOB:[birth year] (64 yo M)Acc No.[id number]:11/15/2024 Progress Note Patient:?OLI iMke Provider:?Tu Pierre DPM :1960???Age:64 Y???Sex:Male Taurus e:11/15/2024 Address:[address] [place] [address] [id number] Pcp:Luis Manuel Garcia MD Subjective: * Chief [...] Pierre DPM Date:?2024 Generated for Ruthy wood/Garrison/eTransmitting on:?12/10/2024 10:53 AM EDT
--- OUTSIDE RECORDS SUMMARY | 2024-12-10 10:53 | XMS_ITS | Patient Health Record ---
Author [facility] ayde [place] Address [address] [facility] [place] [address] Care Team Providers Care Airplane Flight Attendant Supervisor Name Role Phone Jose RENAE, Luis Manuel Primary Care Provider UnaTu Paul Unavailable [phone] Allergies No Known Allergies Results Component Value [...] Problem Acquired hammer toe of right foot (263613320764922 5) Other hammer toe(s) (acquired), right foot (M20.41) Active confirmed Problem Plantar fascial fibromatosis (47695046) Plantar fascial fibromatosis (M72.2) Active confirmed Problem Acquired hammer toe of left foot (628282041416250 3) Other hammer toe(s) (acquired), left foot (M20.42) Active confirmed Problem Type 2 diabetes mellitus without complication (651459440) Type 2 diabetes mellitus without complication (E11.9) Active confirmed Vital Signs Blood pressure diastolic 80 mm Hg 08/30/2024 Height 6ft in 08/30/2024 Blood pressure systolic 130 mm Hg 08/30/2024 Weight 270 lbs 08/30/2024 BMI 36.61 kg/m2 08/30/2024 Procedures Procedure Date Ordered Date Performed Result Body Sit e 11187-HHQNGOF NAIL, 6 OR MORE 03/08/2024 N/A 75942-Qnofigyg Plate 03/08/2024 N/A 80646-NSAC SKIN LESIONS, 2 TO 4 03/08/2024 N/A 65845-ZHPPOJM NAIL, 6 OR MORE 06/21/2024 N/A 01748-ESKF SKIN LESIONS, 2 TO 4 06/21/2024 N/A 57089-WHKPCNY NAIL, 6 OR MORE 08/30/2024 N/A 90070-UBTF SKIN LESIONS, 2 TO 4 08/30/2024 N/A Encounters Encounter Location Date Provider Diagnosis [facility] [place] [address] [place] [address] 03/08/2024 Tu Pierre Tinea unguium B35.1 ; [...] complication E11.9 and Ingrown nail L60.[address] [address] 06/21/2024 Tu Pierre Tinea unguium B35.1 ; Pain in right toe(s) M79.674 ; Pain in left toe(s) M79.675 ; Achilles tendinitis of right lower extremity M76.61 and Type 2 diabetes mellitus without complication E11.[address] [facility] [address] 08/30/2024 Utwilliam Pierre Pain in right toe(s) M79.674 ; Tinea unguium B35.1 ; Pain in left toe(s) M79.675 ; Type 2 diabetes mellitus without complication E11.9 ; Other hammer toe(s) (acquired), right foot M20.41 and Other hammer toe(s) (acquired), left foot M20.[address] [address] 01/04/2024 Tu Gabby [facility] [address] 04/17/2024 Tu Pierre [address] [address] 09/03/2024 [facility] [address] 10/01/2024 Tu Pierre [facility] [address] 12/06/2024 Tu Pierre Plantar fascial fibromatosis M72.2 Assessments Encounter Date Diagnosis (ICD Code) Assessment Notes Treatment Notes Treatment Clinical Notes Section Notes 03/08/2024 Tinea unguium (ICD-10 - B35.1) 03/08/2024 Pain in right toe(s) (ICD-10 - M79.674) 06/21/2024 Tinea unguium (ICD-10 - B35.1) 06/21/2024 Pain in right toe(s) (ICD-10 - M79.674) 08/30/2024 Pain in right toe(s) (ICD-10 - M79.674) 12/06/2024 Plantar fascial fibromatosis (ICD-10 - M72.2) 08/30/2024 Tinea unguium (ICD-10 - B35.1) 08/30/2024 [...] X ray : Foot, right 3V 03/08/2024 94374-MCQHJWS NAIL, 6 OR MORE 03/08/2024 70534-FSNCMIC NAIL, 6 OR MORE 06/21/2024 05154-SIDMJVL NAIL, 6 OR MORE 08/30/2024 48120-Uoqqhlfe Plate 03/08/2024 70101-POBY SKIN LESIONS, 2 TO 4 03/08/20 24 74283-QSCB SKIN LESIONS, 2 TO 4 08/30/19 37826-PDZL SKIN LESIONS, 2 TO 4 06/21/20 Insurance Providers Payer Name Payer Address Payer Phone Subscriber Number Group Number Insured Name Patient Relationship to Insured Coverage Start Date Coverage End Date [facility] SCO Claims [address] [place] [phone] [id number] Mike Cornejo Self - patient is the insured Medical (General) History Medical History History ICD Code Diabetic Surgical History Surgery Date(Month/Year)
--- NOTE | 2024-12-10 11:52 | AM.OFFWIN_ITS ---
Intake Vital Signs 12/10/24 11:58 Height 6 ft 1 in Weight 271 lb 9 oz BMI 35.8 BP 138/90 H Blood Pressure Location Lt brachial Position Sitting Pulse 86 Pulse Source Pulse Oximeter Pulse Oximetry (%) 97 Oxygen Delivery Method Room Air Intake Visit Reasons: EP-wart rt hand thumb finger Intake Note: Patient here for wart on right pointer finger that has been present for a couple of weeks on and off. Patient Tobacco Use Status: Former Tobacco user Allergies No Known Allergies [No Known Allergies*] Allergy (Verified 12/10/24 11:59) Do you need a note to return to daycare/school/sports/work: No HPI HPI Comments History of Present Illness Details History of Present Illness - The patient is a 64-year-old male pres enting with 2 lesions on his fingers. - The patient has experienced warts on h is fingers for an extended period, with prior unsuccessful self-removal attempts. - He sought treatment advice from the [facility] and considered Dr. Pompa's wart removal. - The pharmacist told him his doctor dionne moyer to remove the wart. - Recently, the patient presented with s houlder spasms on the left and right side, occurring since the previous night. Physical Exam General: Cooperative, healthy appearing, comfortable, no acute distress and well developed Orientation: Patient oriented x3 Limitations: No limitations Head: Normal to inspection Ears: Hearing grossly normal bilaterally Nose: Normal External nose present Face and sinus: Normal facial exam Eyes: Appearance normal, both eyes and all related structures Neck: Normal visual inspection and Yes full ROM Respiratory: Normal respiratory effort and able to speak in complete sentences. Skin: left thumb has a hardened nodule with rough texture, irregular surface; right 2nd digit has similar Neuro: Patient oriented x3 Extremities: Normal to inspection, spams noted on bilateral upper back [facility] Medical History Impacted cerumen, right ear Acute diarrhea Pain in both feet Calcaneal spur of right foot Achilles tendinitis Callus of foot Right hand pain Abdominal bloating Vertigo Calcaneal spur Colon cancer screening COVID-19 Pre-op examination Elevated LFTs Encounter for Medicare annual wellness exam Bowel obstruction Melena Knee pain, bilateral Gastroenteritis Healed wound Chronic idiopathic constipation Chronic idiopathic constipation Hospital discharge follow-up Knee osteoarthritis Obesity (BMI 30-39.9) Schizoaffective disorder Pure hypercholesterolemia Benign essential hypertension Chronic kidney disease (CKD), stage III (moderate) Type 2 diabetes mellitus with diabetic chronic kidney disease Morbid obesity Dyslipidemia 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 mellitus 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 Diabetic polyneuropathy associated with 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 mellitus Schizo affective schizophrenia Diabetes type 2, uncontrolled Surgical History History of repair of congenital cleft palate Hx of circumcision Family History Father HTN (hypertension) Mother Diabetes Other Mental health problem Social History Household Members: None Housing: Apartment Are you a primary manager career to a significant other at home: No Do you presently have visiting nurse or other home services: Yes Alcohol intake: former Patient Tobacco Use Status: Former Tobacco user Tobacco use type: Cigarette Cigarettes Per Day: 15 Years Smoked: 8 quit 30 years ago e-Cigarette/Vaping Use: Never Used Second Hand Smoke Exposure: No service: No Current occupational status: employed Current occupation: [employer] Cognitive needs: No Hearing needs: No Vision needs: Yes (glasses) Review of Systems Const All systems reviewed & are unremarkable except as noted in HPI and below Physical Exam Vital Signs: Last Vital Signs Pulse 86 12/10/24 11:58 BP 138/90 H 12/10/24 11:58 Pulse Ox 97 12/10/24 11:58 Oxygen Delivery Method Room Air 12/10/24 11:58 BMI result Body Mass Index 35.8 Assessment & Plan Assessment & Plan (1) Wart of hand: Code(s): B07.9 - Viral wart, unspecified Plan: I advised the patient to apply a wart removal treatment specifically on the affected areas, ensuring limited contact with adjacent skin. If initial treatments are ineffective, the application can be repeated after two weeks, with a possible total of four applications. A dermatology consultation will be considered if the lesions remain unresolved. Patient was informed and verbally consented to the use of an ambient scribe for clinic note documentation during this visit. (2) Back muscle spasm: Code(s): M62.830 - Muscle spasm of back Plan: I advised using cyclobenzaprine as needed for muscle spasms and recommended Aleve for additional relief. Prescriptions were sent for pharmacy pickup as discussed. Medications: New salicylic acid 17% (Wart Remover) Apply to wart only, repeat in 2 weeks if no improvement. Do not use more than 4 treatments. 1 appl topical .every 2 weeks 9 mL 0RF Refilled cyclobenzaprine 10 mg PO DAILY PRN 10 tabs 0RF muscle spasm M54.50 - Low back pain, unspecified Coding Level of Care Code Est Pt Level 4 (44529) Diagnoses Wart of hand B07.9 Back muscle spasm M62.830
[2024-12-10 11:58] VITALS: BP 138/90; PULSE 86; O2SAT 97; BMI 35.8
== END 2024-12-10 12:35 | disposition home or self-care (01) ==
PROVIDERS: PCP Internal Medicine; Visit Provider Physician Assistant
DX: B07.9 Viral wart, unspecified (principal); M62.830 Muscle spasm of back

== ENCOUNTER → 2024-12-10 09:45 | Outpatient (BNVA) | payer OTHER, SELFPAY | PROVIDERS: PCP Internal Medicine; Visit Provider Physician Assistant | DX: B07.9 Viral wart, unspecified (principal); M62.830 Muscle spasm of back | CPT/HCPCS: 99212 ==

== ENCOUNTER 2024-12-19 12:07 | Outpatient (AMB) | payer OTHER, SELFPAY ==
--- NOTE | 2024-12-19 09:06 | A.OFFVIS_ITS ---
Vital Signs 12/19/24 13:07 Height 6 ft 1 in Weight 273 lb 5.971 oz BMI 36.1 BP 120/80 Blood Pressure Location Rt brachial Position Sitting Pulse 80 Pulse Source Pulse Oximeter Pulse Oximetry (%) 98 Oxygen Delivery Method Room Air Intake Visit Reasons: T2DM Intake Note: Patient presents today for a follow-up for Type 2 Diabetes Mellitus: Last Diabetic eye exam was on: 08/08/2024, [place] [facility]. Last Podiatry exam was on: 08/30/2024, [facility] Most recent HbA1c: 7.8% 10/31/2024 Random Glucose- 203 mg/dL, Today Ditch Cleaner Required: No Accompanied by: Self / Same As Patient Allergies No Known Allergies [No Known Allergies*] Allergy (Verified 01/01/25 09:12) HPI Comments Details: Patient is a 64-year-old male with DM type 2 diagnosed in 1990 who presents for f/u. He was last seen several weeks ago and a trial of Mounjaro 2.5 mg was added to his diabetes medication. Hgb A1C 07/19/24 7.5% 01/2022 6.3% He has hypoglycemia unawareness and per last endocrine note limited insight into his diabetes. At his last visit 3 weeks ago he declined an increase in Tresiba and declined starting a short-acting meal once daily before his meal. I had reviewed with him the importance of good glucose control. Previous medication: Trulicity stopped due to GI symptoms: abd pain and bloating which resolved after med was discontinued. Diabetes medications: Tresiba U200 46 units in the am Jardiance 25mg metformin 1,000mg BID mounjaro 2.5mg weekly Freestyle peyton sensor 3 average glucose: [ ] 14 day continuous glucose sensor report reviewed Glucose Management indicator [ ] % Time CGM active [ ] % TIme in ranges: [ ] % very high (above 250) [ ] % high (181-250) [ ] % in range (70-180] [ ] % low (69-55) [ ] % very low (below 54) [ ] Glucose variability [ ] (target <36%) Interpretation of CGMS [ ] No retinopathy: Ophthalmology evaluation: 07/2024 [facility] He reports his eyes get dry at times. Has neuropathy on gabapentin: reported: denies numbness, tingling, cramping in lower extremities [facility] he will schedule an appt Has Nephropathy:eGFR 56 07/19/24 microalbumin: Less than 5.0 Has HLD on statin last ldl 79 07/2024 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: occurs after work when has not eaten all day. None on current monitor Hyperglycemia: occasional urinary frequency, + nocturia 3-5x, +polydypsia Diet: Breakfast: coffee and egg sandwich Lunch: hamburger Dinner: turkey, cheese sandwich with macaroni salad, diet soda , Snacks: banana or 0 sugar candy , Drinks throughout day: water, coffee Exercise: works at [employer] 16-18 hours a week. Frequently walks He was recently seen by the [facility] Followed by GI medicine for idiopathic constipation [facility] Medical History Impacted cerumen, right ear Acute diarrhea Pain in both feet Calcaneal spur of right foot Achilles tendinitis Callus of foot Right hand pain Abdominal bloating Vertigo Calcaneal spur Colon cancer screening COVID-19 Pre-op examination Elevated LFTs Encounter for Medicare annual wellness exam Bowel obstruction Melena Knee pain, bilateral Gastroenteritis Healed wound Chronic idiopathic constipation Chronic idiopathic constipation Hospital discharge follow-up Knee osteoarthritis Obesity (BMI 30-39.9) Schizoaffective disorder Pure hypercholesterolemia Benign essential hypertension Chronic kidney disease (CKD), stage III (moderate) Type 2 diabetes mellitus with diabetic chronic kidney disease Morbid obesity Dyslipidemia 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 mellitus 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 Diabetic polyneuropathy associated with 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 mellitus Schizo affective schizophrenia Diabetes type 2, uncontrolled Surgical History History of repair of congenital cleft palate Hx of circumcision Family History Father HTN (hypertension) Mother Diabetes Other Mental health problem Social History Household Members: None Housing: Apartment Are you a primary career development associate to a significant other at home: No Do you presently have visiting nurse or other home services: Yes Alcohol intake: former Patient Tobacco Use Status: Former Tobacco user Tobacco use type: Cigarette Cigarettes Per Day: 15 Years Smoked: 8 quit 30 years ago e-Cigarette/Vaping Use: Never Used Second Hand Smoke Exposure: No Advance Directives: No Advance Directives Information Provided: Yes Do you have a plan to hurt others: No Plan service: No Current occupational status: employed Current occupation: [employer] Cognitive needs: No Hearing needs: No Vision needs: Yes (glasses) Physical Exam Vital Signs: Last Vital Signs Pulse 80 12/19/24 13:07 BP 120/80 12/19/24 13:07 Pulse Ox 98 12/19/24 13:07 Oxygen Delivery Method Room Air 12/19/24 13:07 BMI result Body Mass Index 36.1 Results Reviewed Results Reviewed: Laboratory Last Values Glucose (Clinic) 203 mg/dL (60-115) H 12/19/24 13:11 Assessment & Plan Assessment & Plan (1) Type 2 diabetes mellitus with diabetic chronic kidney disease: Code(s): E11.22 - Type 2 diabetes mellitus with diabetic chronic kidney disease Category: Medical Qualifiers: Diabetes mellitus longshore equipment operator insulin use: with longshore equipment operator use Chronic kidney disease stage: stage 3 (moderate) Chronic kidney disease stage 3 subtype: unspecified whether 3a or 3b Qualified Code(s): E11.22 - Type 2 diabetes mellitus with diabetic chronic kidney disease; N18.30 - Chronic kidney disease, stage 3 unspecified; Z79.4 - 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 Coding Level of Care Code Est Pt Level 2 (03862) Complex EM visit Add On G2211 Diagnoses Type 2 diabetes mellitus with stage 3 chronic kidney disease, with long-term current use of insulin, unspecified whether stage 3a or 3b CKD E11.22; N18.30; Z79.4 Diabetes mellitus group home insulin use: with longshore equipment operator use Chronic kidney disease stage: stage 3 (moderate) Chronic kidney disease stage 3 subtype: unspecified whether 3a or 3b Time Spent (min) 10 Comment Time spent reviewing labs/provider notes, face to face, chart doc
[2024-12-19 13:07] VITALS: BP 120/80; PULSE 80; O2SAT 98; BMI 36.1
[2024-12-19 13:17] LABS: Glucose, Whole Blood 203 mg/dL (60-115)
--- OUTSIDE RECORDS SUMMARY | 2024-12-19 13:32 | XMS_ITS ---
Author Organization [facility] Address [address] [place] [address] Care Team Providers Care Angular Js Developer Name Role Phone Luis Manuel Garcia MD Primary Care Provider Unava ilTu [place] Unavailable [phone] REASON FOR VISIT heel pain, Heel pain Problems Problem Type SNOMED Code ICD Code Onset Dates Problem Status W/U Status Risk Notes Problem Plantar fascial fibromatosis (58338138) Plantar fascial fibromatosis (M72.2) Active confirmed Encounters Encounter Location Date Provider Diagnosis [facility] [address] [place] [address] 12/06/2024 Tu Pierre Plantar fascial fibromatosis M72.2 Assessments Encounter Date Diagnosis (ICD Code) Assessment Notes Treatment Notes Treatment Clinical Notes Section Notes 12/06/2024 Plantar fascial fibromatosis (ICD-10 - M72.2) Plan Of Treatment No Information Progress Notes * Mike BAIRDDOB:[birth year] (64 yo M)Acc No.[id number]:12/06/2024 Patient:?Mike BAIRD :1960???Age:64 Y???Sex:Male Address:[address] [place] [address] [place], [address] * true * Date:? Generated for Ruthy wood/Garrison/eTransmitting on:?12/19/2024 01:31 PM EDT History and Physical Notes * [...]
--- OUTSIDE RECORDS SUMMARY | 2024-12-19 13:32 | XMS_ITS ---
Author Organization [facility] Address [address] [place] [address] Care Team Providers Care Precision Structural Metal Fitter Name Role Phone Jose RENAE, Luis Manuel Primary Care Provider Unava ilTu [place] Unavailable [phone] Encounters Encounter Location Date Provider Diagnosis [facility] [address] [place] [address] 11/15/2024 Tu Pierre Plan Of Treatment No Information Progress Notes * Mike BAIRDDOB:[birth year] (64 yo M)Acc No.[id number]:11/15/2024 Progress Note Patient:?OLI Mike Provider:?Tu Pierre DPM :1960???Age:64 Y???Sex:Male Taurus e:11/15/2024 Address:[address] [place] [address] [id number] Pcp:Luis Manuel Garcia MD Subjective: * Chief [...] Pierre DPM Date:?2024 Generated for Ruthy wood/Garrison/eTransmitting on:?12/19/2024 01:32 PM EDT
--- OUTSIDE RECORDS SUMMARY | 2024-12-19 13:32 | XMS_ITS | Patient Health Record ---
[facility] [place] Address [address] [facility] [place] [address] Care Team Providers Care Telecommunication Engineer Name Role Phone Jose RENAE, Luis Manuel Primary Care Provider UnaTu Paul Unavailable [phone] Allergies No Known Allergies Results Component Value [...] Problem Acquired hammer toe of right foot (031139462565178 5) Other hammer toe(s) (acquired), right foot (M20.41) Active confirmed Problem Plantar fascial fibromatosis (96285100) Plantar fascial fibromatosis (M72.2) Active confirmed Problem Acquired hammer toe of left foot (706200632588187 3) Other hammer toe(s) (acquired), left foot (M20.42) Active confirmed Problem Type 2 diabetes mellitus without complication (341658075) Type 2 diabetes mellitus without complication (E11.9) Active confirmed Vital Signs Blood pressure diastolic 80 mm Hg 08/30/2024 Height 6ft in 08/30/2024 Blood pressure systolic 130 mm Hg 08/30/2024 Weight 270 lbs 08/30/2024 BMI 36.61 kg/m2 08/30/2024 Procedures Procedure Date Ordered Date Performed Result Body Sit e 91801-HJTFCMY NAIL, 6 OR MORE 03/08/2024 N/A 19080-Oagolbiz Plate 03/08/2024 N/A 37380-YSVP SKIN LESIONS, 2 TO 4 03/08/2024 N/A 81901-UIQXUSK NAIL, 6 OR MORE 06/21/2024 N/A 23460-WJBJ SKIN LESIONS, 2 TO 4 06/21/2024 N/A 31251-VETXAVX NAIL, 6 OR MORE 08/30/2024 N/A 14149-CVPZ SKIN LESIONS, 2 TO 4 08/30/2024 N/A Encounters Encounter Location Date Provider Diagnosis [facility] [address] [place] [address] 03/08/2024 Tu Pierre Tinea unguium B35.1 ; [...] complication E11.9 and Ingrown nail L60.[address] [address] 06/21/2024 Tu Pierre Tinea unguium B35.1 ; Pain in right toe(s) M79.674 ; Pain in left toe(s) M79.675 ; Achilles tendinitis of right lower extremity M76.61 and Type 2 diabetes mellitus without complication E11.[address] [facility] [address] 08/30/2024 Tuwilliam Pierre Pain in right toe(s) M79.674 ; Tinea unguium B35.1 ; Pain in left toe(s) M79.675 ; Type 2 diabetes mellitus without complication E11.9 ; Other hammer toe(s) (acquired), right foot M20.41 and Other hammer toe(s) (acquired), left foot M20.[address] [address] 01/04/2024 Tu Gabby [facility] [address] 04/17/2024 Tu Pierre [address] [address] 09/03/2024 [facility] [address] 10/01/2024 Tu Pierre [facility] [address] 12/06/2024 Tu Pierre Plantar fascial fibromatosis M72.2 [...] X ray : Foot, right 3V 03/08/2024 73662-FNDWFVK NAIL, 6 OR MORE 03/08/2024 50427-TXBOKTE NAIL, 6 OR MORE 06/21/2024 40353-CMCZHYM NAIL, 6 OR MORE 08/30/2024 19005-Gfdemnfc Plate 03/08/2024 03954-ZSJW SKIN LESIONS, 2 TO 4 03/08/20 24 83603-VHYY SKIN LESIONS, 2 TO 4 08/30/19 19918-SZPU SKIN LESIONS, 2 TO 4 06/21/20 Insurance Providers Payer Name Payer Address Payer Phone Subscriber Number Group Number Insured Name Patient Relationship to Insured Coverage Start Date Coverage End Date [facility] [employer] Claims [address] [place] [phone] [id number] Mike Cornejo Self - patient is the insured Medical (General) History Medical History History ICD Code Diabetic Surgical History Surgery Date(Month/Year)
--- OUTSIDE RECORDS SUMMARY | 2024-12-19 13:32 | XMS_ITS ---
Author Organization [facility] Address [address] [place] [address] Care Team Providers Care Community Aide Name Role Phone Manny Garcia MDneth Primary Care Provider Unava ilable Tu Pierre Unavailable [phone] REASON FOR VISIT cx 11/15 Encounters Encounter Location Date Provider Diagnosis [facility] [address] [place] [address] 10/01/2024 Tu Pierre Plan Of Treatment No Information Progress Notes * Mike BAIRDDOB:[birth year] (63 yo M)Acc No.[id number]:10/01/2024 Patient:?Mike BAIRD :1960???Age:63 Y???Sex:Male Address:[address] [place], [address] * true * Date:? Generated for Printi israel/Garrison/eTransmitting on:?12/19/2024 01:32 PM EDT
== END 2024-12-19 14:03 | disposition home or self-care (01) ==
LOC: HO.ENCR 12:08
PROVIDERS: PCP Internal Medicine; Visit Provider Nurse Practitioner Adult Health
DX: E11.22 Type 2 diabetes mellitus with diabetic chronic kidney disease (principal); N18.30 Chronic kidney disease, stage 3 unspecified; Z79.4 Long term (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
CPT/HCPCS: 99212; G2211

== ENCOUNTER → 2024-12-19 12:07 | Outpatient (BNVA) | payer OTHER, SELFPAY | PROVIDERS: PCP Internal Medicine; Visit Provider Nurse Practitioner Adult Health | DX: E11.22 Type 2 diabetes mellitus with diabetic chronic kidney disease (principal); N18.30 Chronic kidney disease, stage 3 unspecified; Z79.4 Long term (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 | CPT/HCPCS: 82947; 99212 ==

== ENCOUNTER 2024-12-22 13:35 | Emergency (ER) | payer OTHER, SELFPAY ==
[2024-12-22 13:41] VITALS: BP 123/87; PULSE 89; RESP 18; TEMP 36.6; O2SAT 98; BMI 36.0
--- NOTE | 2024-12-22 13:42 | ED_ITS ---
HPI - General Adult General Chief complaint: Dizziness Stated complaint: low bs Time Seen by Provider: 12/22/24 14:16 Source: patient Mode of arrival: ambulatory Limitations: no limitations History of Present Illness ED Provider: STARR PITT PA-C HPI narrative: 64-year-old male with pmhx significant for DM, HLD, CKD, HTN, hypercholesterolemia presents to the ED with complaint of fatigue and low blood sugar readings x 3 days. States that into the afternoon/evening, his blood sugar has been dropping to the 50's per Dexcom reader. Reports brief episode of dizziness this morning that has since resolved. He also complains of fatigue since this morning, causing him to sleep in his car after arriving at work. He attributes this to not getting much sleep overnight last night as his glucose monitor kept beeping. He states he is due for a Dexcom change and is unsure if these glucose readings are accurate. He follows closely with his PCP. He was recently evaluated at their office on 12/19/24 (3 days ago). His diabetes is currently managed with Tresiba, Jardiance, metformin and Mounjaro. States he has been taking all diabetic medications as prescribed. No other complaints in ED today. Denies headache, vision changes, dizziness, cp, palpitations, SOB, N/V, abd pain, urinary sx. Related Data Home Medications ?Medication ?Instructions ?Recorded ?Confirmed hydroxyzine pamoate 50 mg capsule 50 mg PO TID PRN Anxiety 09/18/20 08/02/24 benztropine 0.5 mg tablet 0.5 mg PO BID 04/29/22 10/04/24 clozapine 100 mg tablet 100 mg PO TID 05/12/22 10/04/24 hydroxyzine pamoate 25 mg capsule mg PO ONCE 10/04/24 10/04/24 simethicone 180 mg capsule 180 mg PO TID 10/04/24 10/04/24 Previous Rx's ?Medication ?Instructions ?Recorded polyethylene glycol 3350 17 gram 17 g PO BID #30 ea 08/12/22 oral powder packet (Miralax) blood-glucose meter (FreeStyle #1 ea 03/27/23 Lite Meter kit) cholecalciferol (vitamin D3) 25 25 mcg PO DAILY #90 caps 12/21/23 mcg (1,000 unit) capsule ketoconazole 2 % topical cream 1 appl topical DAILY #30 grams 01/01/24 bisacodyl 5 mg tablet,delayed 10 mg (2 x 5 mg) PO BID #90 tabs 01/02/24 release acetaminophen 500 mg tablet 1,000 mg (2 x 500 mg) PO Q6H PRN 01/04/24 pain #30 tabs lidocaine 5 % topical patch 1 patch topical DAILY #15 ea 01/04/24 psyllium seed (sugar) oral powder 1 tsp PO BID #1,254 grams 03/07/24 (Metamucil (sugar) oral powder) pen needle, diabetic 29 gauge x #100 ea 04/24/24 1/ (BD Ultra-Fine Original Pen Needle) sildenafil 50 mg tablet 50 mg PO DAILY PRN sexual activity 05/03/24 #10 tabs lancets 28 gauge (FreeStyle #100 ea 05/08/24 Lancets) blood sugar diagnostic (FreeStyle #100 ea 06/15/24 Lite Strips) glycerin (adult) 2 supp HI .after shower 06/28/24 constipation #25 ea metoclopramide HCl 10 mg tablet 10 mg PO TID #90 tabs 06/28/24 (Reglan) guaifenesin 200 mg/5 mL oral liquid 400 mg (10 mL) PO Q6H PRN cough 07/01/24 #118 mL magnesium hydroxide 400 mg/5 mL 20 ml PO BEDTIME PRN constipation 07/01/24 oral suspension (Milk of Magnesia) #3,780 mL blood-glucose meter (FreeStyle #1 ea 07/18/24 Lite Meter kit) empagliflozin 25 mg tablet 25 mg PO QAM #30 tabs 10/04/24 (Jardiance) blood-glucose sensor (FreeStyle #2 ea 10/09/24 Jody 3 Plus Sensor device) blood-glucose,parts processor,cont #1 ea 10/09/24 (FreeStyle Jody 3 [place]) metformin 500 mg tablet 1,000 mg (2 x 500 mg) PO BID 90 10/29/24 days #360 tabs gabapentin 300 mg capsule 300 mg PO BEDTIME 90 days #90 caps 11/01/24 furosemide 20 mg tablet 20 mg PO DAILY #90 tabs 11/10/24 linaclotide 290 mcg capsule 290 mcg PO QAM #30 caps 11/14/24 (Linzess) ibuprofen 800 mg tablet 800 mg PO Q8H PRN for pain 30 days 12/06/24 #90 tabs cyclobenzaprine 10 mg tablet 10 mg PO DAILY PRN muscle spasm 12/10/24 #10 tabs salicylic acid 17 % topical liquid 1 appl topical .every 2 weeks #9 mL 12/10/24 (Wart Remover) docusate sodium 100 mg capsule 100 mg PO BID #60 caps 12/11/24 methylcellulose (laxative) 500 mg 1,000 mg (2 x 500 mg) PO TID #180 12/11/24 tablet (Fiber Therapy tabs (methylcellulose)) atorvastatin 10 mg tablet 10 mg PO DAILY #90 tabs 12/14/24 Humalog KwikPen Insulin 100 8 unit (0.08 mL) subcut DAILY 30 12/26/24 unit/mL subcutaneous (insulin days #3 mL lispro) Tresiba FlexTouch U-200 200 50 unit (0.25 mL) subcut DAILY 90 12/26/24 unit/mL (3 mL) subcutaneous pen days #25 mL (insulin degludec) tirzepatide 2.5 mg/0.5 mL 2.5 mg (0.5 mL) subcut QWEEK 4 12/26/24 subcutaneous pen injector weeks #2 mL (Mounjaro) Allergies Allergy/AdvReac Type Severity Reaction Status Date / Time No Known Allergies Allergy Verified 12/22/24 13:44 [No Known Allergies*] Review of Systems 2 Review of Systems: Yes all other systems are reviewed and are negative [facility] Past Medical History Attestation statement: The following information was validated with the patient. Source: old records reviewed and nursing notes reviewed Medical History Impacted cerumen, right ear Acute diarrhea Pain in both feet Calcaneal spur of right foot Achilles tendinitis Callus of foot Right hand pain Abdominal bloating Vertigo Calcaneal spur Colon cancer screening COVID-19 Pre-op examination Elevated LFTs Encounter for Medicare annual wellness exam Bowel obstruction Melena Knee pain, bilateral Gastroenteritis Healed wound Chronic idiopathic constipation Chronic idiopathic constipation Hospital discharge follow-up Knee osteoarthritis Obesity (BMI 30-39.9) Schizoaffective disorder Pure hypercholesterolemia Benign essential hypertension Chronic kidney disease (CKD), stage III (moderate) Type 2 diabetes mellitus with diabetic chronic kidney disease Morbid obesity Dyslipidemia 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 mellitus 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 Diabetic polyneuropathy associated with 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 mellitus Schizo affective schizophrenia Diabetes type 2, uncontrolled Surgical History History of repair of congenital cleft palate Hx of circumcision Family History Family History Father HTN (hypertension) Mother Diabetes Other Mental health problem Social History Social History Household Members: None Housing: Apartment Are you a primary associate director career services to a significant other at home: No Do you presently have visiting nurse or other home services: Yes Alcohol intake: former Patient Tobacco Use Status: Former Tobacco user Tobacco use type: Cigarette Cigarettes Per Day: 15 Years Smoked: 8 quit 30 years ago e-Cigarette/Vaping Use: Never Used Second Hand Smoke Exposure: No service: No Current occupational status: employed Current occupation: [employer] Cognitive needs: No Hearing needs: No Vision needs: Yes (glasses) Physical Exam ED Vital Signs: Vital Signs - 24 hr 12/22/24 13:41 12/22/24 15:28 12/22/24 15:29 Temperature 98 F Pulse Rate 89 84 80 Respiratory Rate 18 13 Blood Pressure 123/87 103/72 105/78 Pulse Oximetry 98 98 Oxygen Delivery Method Room Air Room Air 12/22/24 15:30 12/22/24 15:31 12/22/24 17:53 Temperature 98.4 F Pulse Rate 81 82 82 Respiratory Rate 16 Blood Pressure 112/75 101/70 101/70 Pulse Oximetry Oxygen Delivery Method BMI result Body Mass Index 36.0 vital signs stable General: Appears fatigued, in no acute distress. Skin: Warm, dry, intact. No rashes or lesions. Head: Normocephalic, atraumatic. EENT: Hearing is intact b/l. Conjunctiva clear. Sclera is anicteric. PERRLA. Mildly dry mucous membranes. Neck: Supple without LAD.? Cardiac: Chest wall symmetric. RRR. Lungs: Normal respiratory effort without accessory muscle use. CTA bilaterally. Abdomen: soft, non-tender, non-distended. No rebound tenderness or guarding. Positive BS x4. Ext: Upper and lower extremities atraumatic, without tenderness, deformity, swelling or erythema. Neuro: AOx3. Normal speech. NIH 0. Normal [id number], [id number]. Ambulating with steady gait. Course Course Course Narrative: RME performed by Jaqui Choi PA-C. Patient is a 64 year old assigned male at presenting to the emergency department with concerns about low blood sugar. Patient states his sugar has been on the lower side of normal and he is concerned. Patient states that he has been dizzy and fatigued. Detailed physical exam and review of systems are deferred to the primary education professor. Labs ordered. Patient placed back in the waiting room pending room availability and results. Reevaluation(s) Reevaluation #1: 1605 -- CBC without leukocytosis or left shift. No anemia. H&H stable. Chemistry without acute electrolyte abnormality requiring intervention. Renal function appears to be around patient's baseline. Glucose on arrival is 234. Not hypoglycemic. No anion gap. Liver function appears to be around patient's baseline. Troponin undetectable. Urine without infection. Negative COVID, flu, RSV. EKG showing normal sinus rhythm, rate of 82 beats per minute, no acute ischemic changes or ST elevations. Orthostatic vital signs negative. 1700 -- patient's blood sugar has remained stable throughout visit. Dropped to 106 however has remained 150-200's for a majorty of visit. Patient's dexcom reading glucose as 50 in ED which is in correct when compared to our results. I have suspicion that dexcom needs to be recalibrated. Patient states he has a follow up visit with his PCP tomorrow morning. advised to inform them of today's visit and work up has been unremarkable. patient feels well. Patient has remained stable throughout ED visit today. Discussed worrisome signs and symptoms and when to return to the ED. All questions answered at this time. Patient is agreeable with disposition and stable for discharge. Medications Administered Discontinued Medications Generic Name Dose Route Start Last Admin Trade Name Freq PRN Reason Stop Dose Admin Sodium Chloride 1,000 mls @ 999 mls/hr 12/22/24 14:45 12/22/24 16:18 Ns IV 12/22/24 15:45 Infused .Q1H1M SAL[place] Infusion Medical Decision Making Medical Decision Making [facility] Narrative: 64-year-old male with pmhx significant for DM, dyslipidemia, CKD, HTN, hypercholesterolemia presents to the ED with complaint of fatigue, low blood sugar readings x 3 days. vital signs are stable. physical exam is unremarkable. Differential diagnosis consists of hypoglycemia, hyperglycemia, DKA, HHS, anemia, electrolyte abnormality, dehydration, UTI Plan for labs, EKG, viral swabs, UA, orthostatic vitals, fluids, re-evaluation Differential Diagnosis Differential Diagnoses: The differential diagnosis associated with the presentation includes As above Admission/Observation Not indicated Lab Data [facility] Lab Attestation statement: I reviewed the patient's lab results. As above 12/22/24 13:54 12/22/24 13:54 Labs: Lab Results 12/22/24 12/22/24 12/22/24 Range/Units 13:54 15:10 15:49 WBC 6.6 (4.8-10.8) X10*3/uL RBC 5.19 (4.60-5.80) X10*6/uL Hgb 15.8 (14.0-18.0) g/dl Hct 44.2 (42.0-52.0) % MCV 85.2 (80.0-98.0) fL MCH 30.4 (27.0-33.0) pg MCHC 35.7 (31.0-36.0) g/dl RDW 12.8 (11.0-16.0) % Plt Count 114 L (160-400) X10*3/uL MPV 10.2 (9.4-12.4) fL Immature Gran % (Auto) 0.6 H (0.0-0.4) % Neut % (Auto) 72.4 (45-73) % Lymph % (Auto) 19.7 L (20-40) % [place] % (Auto) 7.3 (2-11) % Eos % (Auto) 0.0 (0-4) % Baso % (Auto) 0.0 (0-2) % Lymph # (Auto) 1.3 (1.2-4.9) X10*3/uL [place] # (Auto) 0.5 (0.1-1.2) X10*3/uL Eos # (Auto) 0.0 (0.0-0.4) X10*3/uL Baso # (Auto) 0.0 (0.0-0.2) X10*3/uL Abs Immat Gran (auto) 0.04 H (0.00-0.03) X10*3/uL Absolute Neuts (auto) 4.8 (2.0-8.3) x10*3/uL Absolute Nucleated RBC 0.000 (0.0-0.012) X10*3/uL Nucleated RBC % (auto) 0.0 (0.0-0.2) /100WBC Sodium 143 (135-145) mmol/L Potassium 4.3 (3.3-5.1) mmol/L Chloride 110 H (96-108) mmol/L Carbon Dioxide 21 L (22-29) mmol/L Anion Gap 16 (12-20) BUN 24 H (9-16) mg/dL Creatinine 1.22 (0.5-1.4) mg/dL Estim Creat Clear Calc 86.5 Estimated GFR > 60 POC Glucose (60-115) mg/dL Random Glucose 234 H (60-115) mg/dL Calcium 9.5 (8.4-10.2) mg/dL Magnesium 2.0 (1.6-2.6) mg/dL Total Bilirubin 0.4 (0.0-1.0) mg/dL AST 64 H (5-37) U/L ALT 154 H (0-40) U/L Alkaline Phosphatase 170 H (39-117) U/L Troponin I High Sens < 2.7 (<3.5-35.0) ng/L Total Protein 7.2 (6.5-8.0) g/dL Albumin 4.2 (3.5-5.0) g/dL Lipase 25 (8-78) U/L Urine Color Yellow Urine Appearance Clear Urine pH 5.0 (5.0-9.0) Ur Specific [place] >= 1.030 H (1.005-1.025) Urine Protein Negative (Neg-Trace) mg/dL Urine Glucose (UA) >=1000 H (Negative) mg/dL Urine Ketones Negative (Negative) mg/dL Urine Blood Negative (Negative) Urine Nitrite Negative (Negative) Ur Leukocyte Esterase Negative (Negative) Urine RBC 0-2 (0-2) /HPF Urine WBC 0-5 (0-5) /HPF Ur Squamous Epith Cells 0-2 (0-2) /HPF Urine Bacteria None Seen (None Seen) Hyaline Casts 0-2 (0-2) /LPF Influenza Type A (PCR) NEGATIVE (Negative) Influenza Type B (PCR) NEGATIVE (Negative) RSV RNA Qual (PCR) NEGATIVE (Negative) SARS-CoV-2 RNA (RT-PCR) NEGATIVE (Negative) 12/22/24 12/22/24 Range/Units 16:46 17:05 WBC (4.8-10.8) X10*3/uL RBC (4.60-5.80) X10*6/uL Hgb (14.0-18.0) g/dl Hct (42.0-52.0) % MCV (80.0-98.0) fL MCH (27.0-33.0) pg MCHC (31.0-36.0) g/dl RDW (11.0-16.0) % Plt Count (160-400) X10*3/uL MPV (9.4-12.4) fL Immature Gran % (Auto) (0.0-0.4) % Neut % (Auto) (45-73) % Lymph % (Auto) (20-40) % [place] % (Auto) (2-11) % Eos % (Auto) (0-4) % Baso % (Auto) (0-2) % Lymph # (Auto) (1.2-4.9) X10*3/uL [place] # (Auto) (0.1-1.2) X10*3/uL Eos # (Auto) (0.0-0.4) X10*3/uL Baso # (Auto) (0.0-0.2) X10*3/uL Abs Immat Gran (auto) (0.00-0.03) X10*3/uL Absolute Neuts (auto) (2.0-8.3) x10*3/uL Absolute Nucleated RBC (0.0-0.012) X10*3/uL Nucleated RBC % (auto) (0.0-0.2) /100WBC Sodium (135-145) mmol/L Potassium (3.3-5.1) mmol/L Chloride (96-108) mmol/L Carbon Dioxide (22-29) mmol/L Anion Gap (12-20) BUN (9-16) mg/dL Creatinine (0.5-1.4) mg/dL Estim Creat Clear Calc Estimated GFR POC Glucose 129 H 106 (60-115) mg/dL Random Glucose (60-115) mg/dL Calcium (8.4-10.2) mg/dL Magnesium (1.6-2.6) mg/dL Total Bilirubin (0.0-1.0) mg/dL AST (5-37) U/L ALT (0-40) U/L Alkaline Phosphatase (39-117) U/L Troponin I High Sens (<3.5-35.0) ng/L Total Protein (6.5-8.0) g/dL Albumin (3.5-5.0) g/dL Lipase (8-78) U/L Urine Color Urine Appearance Urine pH (5.0-9.0) Ur Specific [place] (1.005-1.025) Urine Protein (Neg-Trace) mg/dL Urine Glucose (UA) (Negative) mg/dL Urine Ketones (Negative) mg/dL Urine Blood (Negative) Urine Nitrite (Negative) Ur Leukocyte Esterase (Negative) Urine RBC (0-2) /HPF Urine WBC (0-5) /HPF Ur Squamous Epith Cells (0-2) /HPF Urine Bacteria (None Seen) Hyaline Casts (0-2) /LPF Influenza Type A (PCR) (Negative) Influenza Type B (PCR) (Negative) RSV RNA Qual (PCR) (Negative) SARS-CoV-2 RNA (RT-PCR) (Negative) Independent Interpretation I performed an independent interpretation of an: EKG Interpretation: EKG showing normal sinus rhythm with a rate of 82 beats per minute, QT 4 time, QTC 479, no acute ischemic changes or ST elevations. Radiology Impression Discussion of test interpretation with radiology: I have reviewed the radiologist's reading. Radiologist Impression: Procedure(s): ECG 12 lead EKG Accession Number(s): [id number] cc: Starr Pitt~ Test Reason : DIZZINESS Blood Pressure : */* mmHG Vent. Rate : 82 BPM Atrial Rate : 82 BPM P-R Int : 162 ms QRS Dur : 106 ms QT Int : 410 ms P-R-T Axes : 37 -33 3 degrees QTcB Int : 479 ms Normal sinus rhythm Left axis deviation Cannot rule out Anterior infarct (cited on or before 26-Dec-2022) Abnormal ECG When compared with ECG of 02-Dec-2024 13:10, No significant change was found External Record Review External record reviewed: Inpatient record, Office record, Outpatient record and Prior outpatient labs Chronic Conditions Patient?s care impacted by: Diabetes Social Determinants Patient?s care significantly limited by Social Determinants of Health including: Other Social Determinant of Health Critical Care Time Critical Care Time Critical Care Time: No Discharge Plan Discharge Clinical Impression: Hyperglycemia Patient Disposition: Home, Self-Care Instructions: Diabetic Hyperglycemia (ED) Additional Instructions: Your work up today is reassuring. I have concern that your dexcom is not accurately recording your blood sugars. Your blood sugar is normal/ stable in ED today. Please call your line prep cook's office tomorrow. Your dexcom will likely have to be re-calibrated. Return with any new or worsening symptoms. In the case of an emergency call 911. Prescriptions: No Action (DME) blood-glucose meter [FreeStyle Lite Meter] Kit See Rx Instructions .Route Qty: 1 5RF Rx Instructions: Tests 4 X/day cholecalciferol (vitamin D3) 25 mcg (1,000 unit) capsule 25 mcg PO DAILY Qty: 90 12RF bisacodyl 5 mg tablet,delayed release (DR/EC) 10 mg PO BID Qty: 90 0RF (DME) pen needle, diabetic [BD Ultra-Fine Orig Pen Needle] 29 gauge x 1/2 needle See Rx Instructions .ROUTE DAILY Qty: 100 3RF Rx Instructions: As directed daily (DME) lancets [FreeStyle Lancets] 28 gauge misc See Rx Instructions .Route Qty: 100 4RF Rx Instructions: Tests 5x/day (DME) FreeStyle Lite Strips Strip See Rx Instructions .Route Qty: 100 5RF Rx Instructions: Tests 5X/day metoclopramide HCl [Reglan] 10 mg tablet 10 mg PO TID Qty: 90 6RF glycerin (adult) Suppository 2 supp HI .after shower Qty: 25 6RF magnesium hydroxide [Milk of Magnesia] 400 mg/5 mL suspension 20 ml PO BEDTIME PRN (Reason: constipation) Qty: 3780 6RF (DME) blood-glucose meter [FreeStyle Lite Meter] Kit See Rx Instructions .ROUTE .MEDSUPPLY Qty: 1 0RF Rx Instructions: As directed Jardiance 25 mg tablet 25 mg PO QAM Qty: 30 3RF (DME) FreeStyle Jody 3 [place] Misc See Rx Instructions .ROUTE .MEDSUPPLY Qty: 1 0RF Rx Instructions: As directed for use with freestyle jody 3+ sensor (DME) FreeStyle Jody 3 Plus Sensor Device See Rx Instructions .ROUTE .MEDSUPPLY Qty: 2 11RF Rx Instructions: every 15 days for continuous use metformin 500 mg tablet 1,000 mg PO BID 90 Days Qty: 360 1RF gabapentin 300 mg capsule 300 mg PO BEDTIME 90 Days Qty: 90 1RF furosemide 20 mg tablet 20 mg PO DAILY Qty: 90 1RF Linzess 290 mcg capsule 290 mcg PO QAM Qty: 30 6RF ibuprofen 800 mg tablet 800 mg PO Q8H PRN (Reason: for pain) 30 Days Qty: 90 0RF Rx Instructions: take with food docusate sodium 100 mg capsule 100 mg PO BID Qty: 60 0RF Fiber Therapy (m-cellulose) 500 mg tablet 1,000 mg PO TID Qty: 180 0RF atorvastatin 10 mg tablet 10 mg PO DAILY Qty: 90 0RF benztropine 0.5 mg tablet 0.5 mg PO BID Metamucil (sugar) Powder 1 tsp PO BID Qty: 1254 0RF hydroxyzine pamoate 50 mg capsule 50 mg PO TID PRN (Reason: Anxiety) ketoconazole 2 % cream 1 appl topical DAILY Qty: 30 0RF acetaminophen 500 mg tablet 1,000 mg PO Q6H PRN (Reason: pain) Qty: 30 0RF lidocaine 5 % adhesive patch,medicated 1 patch topical DAILY Qty: 15 0RF Rx Instructions: leave on most painful area for up to 12 hrs clozapine 100 mg tablet 100 mg PO TID polyethylene glycol 3350 [Miralax] 17 gram powder in packet 17 g PO BID Qty: 30 6RF sildenafil 50 mg tablet 50 mg PO DAILY PRN (Reason: sexual activity) Qty: 10 0RF Rx Instructions: administer 30 minutes to 4 hours before activity Wart Remover 17 % liquid 1 appl topical .every 2 weeks Qty: 9 0RF Rx Instructions: Apply to wart only, repeat in 2 weeks if no improvement. Do not use more than 4 treatments. cyclobenzaprine 10 mg tablet 10 mg PO DAILY PRN (Reason: muscle spasm) Qty: 10 0RF insulin lispro [Humalog KwikPen Insulin] 100 unit/mL insulin pen 8 unit subcut DAILY 30 Days Qty: 3 6RF Rx Instructions: with the largest meal of the day Mounjaro 2.5 mg/0.5 mL pen injector 2.5 mg subcut QWEEK 28 Days Qty: 2 11RF Tresiba FlexTouch U-200 200 unit/mL (3 mL) insulin pen 50 unit subcut DAILY 90 Days Qty: 25 3RF guaifenesin 200 mg/5 mL liquid 400 mg PO Q6H PRN (Reason: cough) Qty: 118 0RF hydroxyzine pamoate 25 mg capsule PO ONCE simethicone 180 mg capsule 180 mg PO TID [place] [facility] [place] Group] Luis Manuel Garcia MD [Primary Care Provider] - Stand Alone Forms: Work/School Release Interventions: ED Discharge Assessment Last Done: 12/22/24 17:53 Discharge Date/Time: 12/22/24 17:54 Print Language: Bhutanese
[2024-12-22 14:04] LABS: Hematocrit 44.2 % (42.0-52.0); Imm Gran Abs Auto 0.04 X10*3/uL (0.00-0.03); Imm Gran Pct Auto 0.6 % (0.0-0.4); MANUAL DIFF FLAG NO; Mean Corpuscular Volume 85.2 fL (80.0-98.0); PLT CLUMP 1; Red Blood Count 5.19 X10*6/uL (4.60-5.80); SCAN SMEAR FLAG 1
[2024-12-22 14:06] LABS: Hemoglobin 15.8 g/dl (14.0-18.0); Lymphocytes Absolute Auto 1.3 X10*3/uL (1.2-4.9); Lymphocytes Percent Auto 19.7 % (20-40); Mean Corpuscular HGB Conc 35.7 g/dl (31.0-36.0); Mean Corpuscular Hemoglobin 30.4 pg (27.0-33.0); Mean Platelet Volume 10.2 fL (9.4-12.4); Monocytes Absolute Auto 0.5 X10*3/uL (0.1-1.2); Monocytes Percent Auto 7.3 % (2-11); Neutrophils Absolute Auto 4.8 x10*3/uL (2.0-8.3); Neutrophils Percent Auto 72.4 % (45-73); Red Cell Distribution Width 12.8 % (11.0-16.0)
[2024-12-22 14:09] LABS: Platelet Count 114 X10*3/uL (160-400); White Blood Count 6.6 X10*3/uL (4.8-10.8)
[2024-12-22 14:32] LABS: Alanine Aminotransferase 154 U/L (0-40); Albumin Level 4.2 g/dL (3.5-5.0); Alkaline Phosphatase 170 U/L (39-117); Anion Gap 16 (12-20); Aspartate Amino Transferase 64 U/L (5-37); Bilirubin Total 0.4 mg/dL (0.0-1.0); Blood Urea Nitrogen 24 mg/dL (9-16); Calcium 9.5 mg/dL (8.4-10.2); Carbon Dioxide 21 mmol/L (22-29); Chloride 110 mmol/L (96-108); Creatinine Clr Calc Pharmacy 86.5; Estimated Glomerular Filt Rate > 60; Glucose Random 234 mg/dL (60-115); Potassium 4.3 mmol/L (3.3-5.1); Sodium 143 mmol/L (135-145); Total Protein 7.2 g/dL (6.5-8.0)
--- NOTE | 2024-12-22 14:35 | ECG_ITS ---
Test Reason : DIZZINESS Blood Pressure : */* mmHG Vent. Rate : 82 BPM Atrial Rate : 82 BPM P-R Int : 162 ms QRS Dur : 106 ms QT Int : 410 ms P-R-T Axes : 37 -33 3 degrees QTcB Int : 479 ms Normal sinus rhythm Left axis deviation Cannot rule out Anterior infarct (cited on or before 26-Dec-2022) Abnormal ECG When compared with ECG of 02-Dec-2024 13:10, No significant change was found Referred By: Starr Pitt Electronically Signed By: MUKESH MUNSON MD
[2024-12-22] MEDS: 0.9 % Sodium Chloride 1,000 ML 999 ML IV (15:20)
[2024-12-22 15:28] VITALS: BP 103/72; PULSE 84; RESP 13; O2SAT 98
[2024-12-22 15:29] VITALS: BP 105/78; PULSE 80
[2024-12-22 15:30] VITALS: BP 112/75; PULSE 81
[2024-12-22 15:31] VITALS: BP 101/70; PULSE 82
[2024-12-22 15:53] LABS: Troponin-I High Sensitivity < 2.7 ng/L (<3.5-35.0)
[2024-12-22 15:56] LABS: Appearance Urine Clear; Color Urine Yellow; Glucose Urine UA >=1000 mg/dL (Negative); Leukocyte Esterase Urine Negative (Negative); Nitrite Urine Negative (Negative); Specific Gravity - Urine >= 1.030 (1.005-1.025); UMIC TRIGGER UACC YES; Urine Blood Negative (Negative); Urine Ketones Negative (Negative); Urine Protein Negative (Neg-Trace)
[2024-12-22 15:59] LABS: Bacteria Urine None Seen (None Seen); Hyaline Casts Urine 0-2 /LPF (0-2); RBC Urine 0-2 /HPF (0-2); Squamous Epithelial Cell Urine 0-2 /HPF (0-2); WBC Urine 0-5 /HPF (0-5)
[2024-12-22 16:00] LABS: Influenza A PCR NEGATIVE (Negative); Influenza B PCR NEGATIVE (Negative); Resp Syncy Virus RNA Qual PCR NEGATIVE (Negative); SARS COV2 PCR INHOUSE NEGATIVE (Negative)
[2024-12-22 16:03] LABS: Lipase 25 U/L (8-78)
[2024-12-22 16:49] LABS: Glucose, Whole Blood 129 mg/dL (60-115)
[2024-12-22 17:10] LABS: Glucose, Whole Blood 106 mg/dL (60-115)
[2024-12-22 17:53] VITALS: BP 101/70; PULSE 82; RESP 16; TEMP 36.9
== END 2024-12-22 17:54 | disposition home or self-care (01) ==
PROVIDERS: Physician Assistant Medical; Emergency Provider Emergency Medicine Emergency Medical Services; PCP Internal Medicine
DX: E11.65 Type 2 diabetes mellitus with hyperglycemia (principal); R42 Dizziness and giddiness; R11.0 Nausea; R94.31 Abnormal electrocardiogram [ECG] [EKG]; I10 Essential (primary) hypertension; Z03.818 Encounter for observation for suspected exposure to other biological agents ruled out; Z87.891 Personal history of nicotine dependence; Z79.899 Other long term (current) drug therapy
CPT/HCPCS: 0241U; 36415; 80053; 81001; 82947; 83690; 83735; 84484; 85025; 93005; 96360; 99284; 99285

== ENCOUNTER → 2024-12-22 14:35 | Outpatient (BNV) | payer OTHER, SELFPAY | PROVIDERS: Emergency Provider Emergency Medicine Emergency Medical Services; PCP Internal Medicine; Visit Provider Internal Medicine Cardiovascular Disease | DX: R94.31 Abnormal electrocardiogram [ECG] [EKG] (principal) | CPT/HCPCS: 93010 ==

== ENCOUNTER 2024-12-23 08:33 | Outpatient (AMB) | payer OTHER, SELFPAY ==
--- OUTSIDE RECORDS SUMMARY | 2024-12-23 08:38 | XMS_ITS ---
Author Organization [facility] Address [address] [place] [id number] Care Team Providers Care Medical Office Professional Instructor Name Role Phone Luis Manuel Garcia MD Primary Care Provider Unava ilTu [place] Unavailable [phone] REASON FOR VISIT heel pain, Heel pain Problems Problem Type SNOMED Code ICD Code Onset Dates Problem Status W/U Status Risk Notes Problem Plantar fascial fibromatosis (59908056) Plantar fascial fibromatosis (M72.2) Active confirmed Encounters Encounter Location Date Provider Diagnosis [facility] [address] [place] [address] 12/06/2024 Tu Pierre Plantar fascial fibromatosis M72.2 Assessments Encounter Date Diagnosis (ICD Code) Assessment Notes Treatment Notes Treatment Clinical Notes Section Notes 12/06/2024 Plantar fascial fibromatosis (ICD-10 - M72.2) Plan Of Treatment No Information Progress Notes * Mike BAIRDDOB:[birth year] (64 yo M)Acc No.[id number]:12/06/2024 Patient:?Mike BAIRD :1960???Age:64 Y???Sex:Male Address:[address] [place] [address] [place], [address] * true * Date:? Generated for Ruthy wood/Garrison/eTransmitting on:?12/23/2024 08:38 AM EDT History and Physical Notes * [...]
--- OUTSIDE RECORDS SUMMARY | 2024-12-23 08:38 | XMS_ITS ---
Author Organization [facility] Address [address] [place] [address] Care Team Providers Care Chiller Operator Name Role Phone Jose RENAE, Luis Manuel Primary Care Provider Unava ilTu [place] Unavailable [phone] Encounters Encounter Location Date Provider Diagnosis [facility] [address] [place] [address] 11/15/2024 Tu Pierre Plan Of Treatment No Information Progress Notes * Mike BAIRDDOB:[birth year] (64 yo M)Acc No.[id number]:11/15/2024 Progress Note Patient:?OLI Mike Provider:?Tu Pierre DPM :1960???Age:64 Y???Sex:Male Taurus e:11/15/2024 Address:[address] [place] [address] [id number] Pcp:Luis Manuel Garcia MD Subjective: * Chief [...] Pierre DPM Date:?2024 Generated for Ruthy wood/Garrison/eTransmitting on:?12/23/2024 08:38 AM EDT
--- OUTSIDE RECORDS SUMMARY | 2024-12-23 08:38 | XMS_ITS | Patient Health Record ---
Author Organization [facility] ayde [place] Address [address] [facility] [place] [address] Care Team Providers Care Research Nutritionist Name Role Phone Jose RENAE, Luis Manuel Primary Care Provider UnaTu Paul Unavailable [phone] Allergies No Known Allergies Results Component Value [...] Problem Acquired hammer toe of right foot (465560447930177 5) Other hammer toe(s) (acquired), right foot (M20.41) Active confirmed Problem Plantar fascial fibromatosis (64755938) Plantar fascial fibromatosis (M72.2) Active confirmed Problem Acquired hammer toe of left foot (933737743141790 3) Other hammer toe(s) (acquired), left foot (M20.42) Active confirmed Problem Type 2 diabetes mellitus without complication (508355772) Type 2 diabetes mellitus without complication (E11.9) Active confirmed Vital Signs Blood pressure diastolic 80 mm Hg 08/30/2024 Height 6ft in 08/30/2024 Blood pressure systolic 130 mm Hg 08/30/2024 Weight 270 lbs 08/30/2024 BMI 36.61 kg/m2 08/30/2024 Procedures Procedure Date Ordered Date Performed Result Body Sit e 14984-SWGZRSA NAIL, 6 OR MORE 03/08/2024 N/A 74922-Oxmtkysp Plate 03/08/2024 N/A 23286-BLXT SKIN LESIONS, 2 TO 4 03/08/2024 N/A 39053-UXKFRTQ NAIL, 6 OR MORE 06/21/2024 N/A 90423-AAJM SKIN LESIONS, 2 TO 4 06/21/2024 N/A 57596-BHENGIY NAIL, 6 OR MORE 08/30/2024 N/A 22771-GIVH SKIN LESIONS, 2 TO 4 08/30/2024 N/A Encounters Encounter Location Date Provider Diagnosis [facility] [address] [place] [address] 03/08/2024 Tu Pierre Tinea unguium B35.1 ; [...] without complication E11.9 and Ingrown nail L60.[address] [address] 06/21/2024 Tu Pierre Tinea unguium B35.1 ; Pain in right toe(s) M79.674 ; Pain in left toe(s) M79.675 ; Achilles tendinitis of right lower extremity M76.61 and Type 2 diabetes mellitus without complication E11.[address] [facility] [address] 08/30/2024 Tuwilliam Pierre Pain in right toe(s) M79.674 ; Tinea unguium B35.1 ; Pain in left toe(s) M79.675 ; Type 2 diabetes mellitus without complication E11.9 ; Other hammer toe(s) (acquired), right foot M20.41 and Other hammer toe(s) (acquired), left foot M20.[address] [address] 01/04/2024 Tu Gabby [facility] [address] 04/17/2024 Tu Pierre [address] [address] 09/03/2024 [facility] [address] 10/01/2024 Tu Pierre [facility] [address] 12/06/2024 Tu Pierre Plantar fascial fibromatosis M72.2 [...] X ray : Foot, right 3V 03/08/2024 99612-SOAVXSK NAIL, 6 OR MORE 03/08/2024 72438-EUSVGJY NAIL, 6 OR MORE 06/21/2024 17128-RZQLQJD NAIL, 6 OR MORE 08/30/2024 69409-Sjksdqwq Plate 03/08/2024 36960-GDDH SKIN LESIONS, 2 TO 4 03/08/20 24 45464-RPNP SKIN LESIONS, 2 TO 4 08/30/19 34143-RDWO SKIN LESIONS, 2 TO 4 06/21/20 Insurance Providers Payer Name Payer Address Payer Phone Subscriber Number Group Number Insured Name Patient Relationship to Insured Coverage Start Date Coverage End Date [facility] SCO Claims [address] [place] [phone] [id number] Mike Cornejo Self - patient is the insured Medical (General) History Medical History History ICD Code Diabetic Surgical History Surgery Date(Month/Year)
--- OUTSIDE RECORDS SUMMARY | 2024-12-23 08:38 | XMS_ITS ---
Author Organization [facility] Address [address] [place] [address] Care Team Providers Care Truck Bench Mechanic Name Role Phone Manny Garcia MDneth Primary Care Provider Unava ilable Tu Pierre Unavailable [phone] REASON FOR VISIT cx 11/15 Encounters Encounter Location Date Provider Diagnosis [facility] [address] [place] [address] 10/01/2024 Tu Pierre Plan Of Treatment No Information Progress Notes * Mike BAIRDDOB:[birth year] (63 yo M)Acc No.[id number]:10/01/2024 Patient:?Mike BAIRD :1960???Age:63 Y???Sex:Male Address:[address] [place], [address] * true * Date:? Generated for Printi israel/Garrison/eTransmitting on:?12/23/2024 08:38 AM EDT
--- NOTE | 2024-12-23 09:04 | MHC.AMDMED ---
Intake Intake Visit Reasons: Meter help Paralegal Secretary Required: No Accompanied by: Self / Same As Patient Allergies No Known Allergies [No Known Allergies*] Allergy (Verified 12/22/24 13:44) HPI Comprehensive Diabetes Asmnt Most Recent Diabetes Results: Microalb/Creat Ratio TNP 07/19/24 Cholesterol 162 mg/dL (<200) 07/19/24 HDL Cholesterol 34 mg/dL (>40) L 07/19/24 Triglycerides 247 mg/dL (<150) H 07/19/24 Creatinine 1.22 mg/dL (0.5-1.4) 12/22/24 Blood Urea Nitrogen 24 mg/dL (9-16) H 12/22/24 Sodium 143 mmol/L (135-145) 12/22/24 Potassium 4.3 mmol/L (3.3-5.1) 12/22/24 Chloride 110 mmol/L (96-108) H 12/22/24 Carbon Dioxide 21 mmol/L (22-29) L 12/22/24 Calcium 9.5 mg/dL (8.4-10.2) 12/22/24 AST 64 U/L (5-37) H 12/22/24 ALT 154 U/L (0-40) H 12/22/24 Total Protein 7.2 g/dL (6.5-8.0) 12/22/24 Albumin 4.2 g/dL (3.5-5.0) 12/22/24 [facility] Medical History Impacted cerumen, right ear Acute diarrhea Pain in both feet Calcaneal spur of right foot Achilles tendinitis Callus of foot Right hand pain Abdominal bloating Vertigo Calcaneal spur Colon cancer screening COVID-19 Pre-op examination Elevated LFTs Encounter for Medicare annual wellness exam Bowel obstruction Melena Knee pain, bilateral Gastroenteritis Healed wound Chronic idiopathic constipation Chronic idiopathic constipation Hospital discharge follow-up Knee osteoarthritis Obesity (BMI 30-39.9) Schizoaffective disorder Pure hypercholesterolemia Benign essential hypertension Chronic kidney disease (CKD), stage III (moderate) Type 2 diabetes mellitus with diabetic chronic kidney disease Morbid obesity Dyslipidemia 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 mellitus 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 Diabetic polyneuropathy associated with 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 mellitus Schizo affective schizophrenia Diabetes type 2, uncontrolled Surgical History History of repair of congenital cleft palate Hx of circumcision Family History Father HTN (hypertension) Mother Diabetes Other Mental health problem Social History Household Members: None Housing: Apartment Are you a primary critical care cns to a significant other at home: No Do you presently have visiting nurse or other home services: Yes Alcohol intake: former Patient Tobacco Use Status: Former Tobacco user Tobacco use type: Cigarette Cigarettes Per Day: 15 Years Smoked: 8 quit 30 years ago e-Cigarette/Vaping Use: Never Used Second Hand Smoke Exposure: No service: No Current occupational status: employed Current occupation: [employer] Cognitive needs: No Hearing needs: No Vision needs: Yes (glasses) Assessment & Plan Assessment & Plan (1) 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 mellitus: Code(s): E11.649 - Type 2 diabetes mellitus with hypoglycemia without coma Plan: Personal Continuous Glucose Monitor: Patients CGM information reviewed, Patient went to ED on 12/22/2024 for concern of hypoglycemia. Patient was started Mounjaro 2.5 mg approximately 3 weeks ago He is currently taking Tresiba 50 units daily Humalog 4 units before meals Metformin 1000 mg b.i.d. Patient was told it ED that his sensor needed to be calibrated, so he came in today. Explained to patient how to treat hypoglycemia with rule of 15s, handout given Explained to patient who is episodes of hypoglycemia could be caused by adding in additional medication Recommended to patient he reduce Tresiba 40 units daily We did switch out glucose sensor at today's visit in case of faulty sensor. Patient with clinical staff educator in 1 week Patient able to insert sensor independently at home without issue.? Portions of this note were created using voice recognition software, please excuse any words or phrases that may have been misinterpreted. Patient Instructions: Reduce Tresiba from 50 units to 40 units If glucose is less than 150 mg/dL do not take humalog before meals If glucose is greater than 151 mg/dL take humalog 4 units Treat low glucose with 4 glucose tabs or 4 ounces of fruit juice/regular soda follow up with diabetes education nurse in one week Coding Level of Care Code Est Pt Level 1 (99849) Diagnoses 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 mellitus E11.649
== END 2024-12-23 09:21 | disposition home or self-care (01) ==
LOC: HO.ENCR 08:33
PROVIDERS: PCP Internal Medicine; Visit Provider Registered Nurse Diabetes Educator
DX: E11.649 Type 2 diabetes mellitus with hypoglycemia without coma (principal)

== ENCOUNTER → 2024-12-23 08:33 | Outpatient (BNVA) | payer OTHER, SELFPAY | PROVIDERS: PCP Internal Medicine; Visit Provider Registered Nurse Diabetes Educator | DX: E11.649 Type 2 diabetes mellitus with hypoglycemia without coma (principal); Z79.4 Long term (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; Z79.84 Long term (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 of oral hypoglycemic drugs | CPT/HCPCS: 99211 ==

== ENCOUNTER 2024-12-26 12:23 | Outpatient (REF) | payer OTHER, SELFPAY ==
--- NOTE | ~2024-12-26 | US_ITS ---
CLINICAL HISTORY: I73.9 - Peripheral vascular disease, unspecified Ankle-brachial index Comparison: None Findings: Right posterior tibial artery 143 mmHg Right dorsalis pedis artery 122 mmHg Left brachial artery 118 mmHg Left posterior tibial artery 130 mmHg Left dorsalis pedis artery 116 mmHg Impression: 1. Right SHIMA 1.0 2. Left SHIMA 1.0 This document has been electronically signed by: Wendy Mullen MD on 12/26/2024 17:45:09
--- OUTSIDE RECORDS SUMMARY | 2024-12-26 13:10 | XMS_ITS | Patient Health Record ---
Author [facility] ayde Richards Address [address] [facility] [place] [address] Care Team Providers Care Supervisor Tower Name Role Phone Jose RENAE, Luis Manuel Primary Care Provider UnaTu Paul Unavailable [phone] Allergies No Known Allergies Results Component Value [...] Problem Acquired hammer toe of right foot (131125788364365 5) Other hammer toe(s) (acquired), right foot (M20.41) Active confirmed Problem Plantar fascial fibromatosis (77322013) Plantar fascial fibromatosis (M72.2) Active confirmed Problem Acquired hammer toe of left foot (167209787933771 3) Other hammer toe(s) (acquired), left foot (M20.42) Active confirmed Problem Type 2 diabetes mellitus without complication (847941353) Type 2 diabetes mellitus without complication (E11.9) Active confirmed Vital Signs Blood pressure diastolic 80 mm Hg 08/30/2024 Height 6ft in 08/30/2024 Blood pressure systolic 130 mm Hg 08/30/2024 Weight 270 lbs 08/30/2024 BMI 36.61 kg/m2 08/30/2024 Procedures Procedure Date Ordered Date Performed Result Body Sit e 64576-ODSTYCY NAIL, 6 OR MORE 03/08/2024 N/A 16915-Ntcirozw Plate 03/08/2024 N/A 57192-SKGW SKIN LESIONS, 2 TO 4 03/08/2024 N/A 36037-MWLQMPZ NAIL, 6 OR MORE 06/21/2024 N/A 94429-CBVE SKIN LESIONS, 2 TO 4 06/21/2024 N/A 53877-TPNIHRM NAIL, 6 OR MORE 08/30/2024 N/A 25729-TNNH SKIN LESIONS, 2 TO 4 08/30/2024 N/A Encounters Encounter Location Date Provider Diagnosis [facility] [address] [place] [address] 03/08/2024 Tu Pierre Tinea unguium B35.1 ; [...] without complication E11.9 and Ingrown nail L60.[address] [address] 06/21/2024 Tu Pierre Tinea unguium B35.1 ; Pain in right toe(s) M79.674 ; Pain in left toe(s) M79.675 ; Achilles tendinitis of right lower extremity M76.61 and Type 2 diabetes mellitus without complication E11.9 [facility] [address] 08/30/2024 Tuwilliam Pierre Pain in right toe(s) M79.674 ; Tinea unguium B35.1 ; Pain in left toe(s) M79.675 ; Type 2 diabetes mellitus without complication E11.9 ; Other hammer toe(s) (acquired), right foot M20.41 and Other hammer toe(s) (acquired), left foot M20.[address] [address] 01/04/2024 Tu Gabby [facility] [address] 04/17/2024 Tu Pierre [address] [address] 09/03/2024 [facility] [address] 10/01/2024 Tu Pierre [facility] [address] 12/06/2024 Tu Pierre Plantar fascial fibromatosis M72.2 [...] X ray : Foot, right 3V 03/08/2024 03293-YPQSAQW NAIL, 6 OR MORE 03/08/2024 44653-NXIMGEB NAIL, 6 OR MORE 06/21/2024 07331-GXQEAYL NAIL, 6 OR MORE 08/30/2024 92292-Rffbbuha Plate 03/08/2024 12870-ZEKW SKIN LESIONS, 2 TO 4 03/08/20 24 34385-GUJC SKIN LESIONS, 2 TO 4 08/30/19 76738-ZOPR SKIN LESIONS, 2 TO 4 06/21/20 Insurance Providers Payer Name Payer Address Payer Phone Subscriber Number Group Number Insured Name Patient Relationship to Insured Coverage Start Date Coverage End Date [facility] SCO Claims [address] [place] [phone] [id number] Mike Cornejo Self - patient is the insured Medical (General) History Medical History History ICD Code Diabetic Surgical History Surgery Date(Month/Year)
--- OUTSIDE RECORDS SUMMARY | 2024-12-26 13:11 | XMS_ITS ---
Author Organization [facility] Address [address] [place] [address] Care Team Providers Care Sales Merchandise Associate Name Role Phone Jose RENAE, Luis Manuel Primary Care Provider Unava ilTu [place] Unavailable [phone] Encounters Encounter Location Date Provider Diagnosis [facility] [address] [place] [address] 11/15/2024 Tu Pierre Plan Of Treatment No Information Progress Notes * Mike BAIRDDOB:[birth year] (64 yo M)Acc No.[id number]:11/15/2024 Progress Note Patient:?OLI Mike Provider:?Tu Pierre DPM :1960???Age:64 Y???Sex:Male Taurus e:11/15/2024 Address:[address] [place] [address] [id number] Pcp:Luis Manuel Garcia MD Subjective: * Chief [...] Pierre DPM Date:?2024 Generated for Ruthy wood/Garrison/eTransmitting on:?12/26/2024 01:10 PM EDT
--- OUTSIDE RECORDS SUMMARY | 2024-12-26 13:11 | XMS_ITS ---
Author Organization [facility] Address [address] [place] [address] Care Team Providers Care Wharf Hand Name Role Phone Luis Manuel Garcia MD Primary Care Provider Unava ilTu [place] Unavailable [phone] REASON FOR VISIT heel pain, Heel pain Problems Problem Type SNOMED Code ICD Code Onset Dates Problem Status W/U Status Risk Notes Problem Plantar fascial fibromatosis (31254992) Plantar fascial fibromatosis (M72.2) Active confirmed Encounters Encounter Location Date Provider Diagnosis [facility] [address] [place] [address] 12/06/2024 Tu Pierre Plantar fascial fibromatosis M72.2 Assessments Encounter Date Diagnosis (ICD Code) Assessment Notes Treatment Notes Treatment Clinical Notes Section Notes 12/06/2024 Plantar fascial fibromatosis (ICD-10 - M72.2) Plan Of Treatment No Information Progress Notes * Mike BAIRDDOB:[birth year] (64 yo M)Acc No.[id number]:12/06/2024 Patient:?Mike BAIRD :1960???Age:64 Y???Sex:Male Address:[address] [place] [address] [place], [address] * true * Date:? Generated for Ruthy wood/Garrison/eTransmitting on:?12/26/2024 01:09 PM EDT History and Physical Notes * [...]
--- OUTSIDE RECORDS SUMMARY | 2024-12-26 13:11 | XMS_ITS ---
Author Organization [facility] Address [address] [place] [address] Care Team Providers Care Provisioning Analyst Name Role Phone Manny Garcia MDneth Primary Care Provider Unava ilable Tu Pierre Unavailable [phone] REASON FOR VISIT cx 11/15 Encounters Encounter Location Date Provider Diagnosis [facility] [address] [place] [address] 10/01/2024 Tu Pierre Plan Of Treatment No Information Progress Notes * Mike BAIRDDOB:[birth year] (63 yo M)Acc No.[id number]:10/01/2024 Patient:?Mike BAIRD :1960???Age:63 Y???Sex:Male Address:[address] [place], [address] * true * Date:? Generated for Printi israel/Garrison/eTransmitting on:?12/26/2024 01:10 PM EDT
== END 2024-12-26 12:24 | disposition home or self-care (01) ==
LOC: HO.US 12:23
PROVIDERS: PCP Internal Medicine; Visit Provider Nurse Practitioner Adult Health
DX: I73.9 Peripheral vascular disease, unspecified (principal); E11.42 Type 2 diabetes mellitus with diabetic polyneuropathy
CPT/HCPCS: 82947; 93923; 99212

== ENCOUNTER → 2024-12-26 12:25 | Outpatient (BNV) | payer OTHER, SELFPAY | PROVIDERS: PCP Internal Medicine; Visit Provider Radiology Diagnostic Radiology | DX: I73.9 Peripheral vascular disease, unspecified (principal) | CPT/HCPCS: 93923 ==

== ENCOUNTER 2024-12-26 14:04 | Outpatient (AMB) | payer OTHER, SELFPAY ==
[2024-12-26 14:21] VITALS: BP 100/60; PULSE 94; O2SAT 95; BMI 35.5
--- NOTE | 2024-12-26 14:21 | A.OFFVIS_ITS ---
Vital Signs 12/26/24 14:21 Height 6 ft 1 in Weight 268 lb 15.423 oz BMI 35.5 BP 100/60 Blood Pressure Location Rt brachial Position Sitting Pulse 94 Pulse Source Pulse Oximeter Pulse Oximetry (%) 95 Oxygen Delivery Method Room Air Intake Visit Reasons: T2DM Intake Note: Patient presents today for a follow-up for Type 2 Diabetes Mellitus: Last Diabetic eye exam was on: 08/08/2024, [facility]. Last Podiatry exam was on: 08/30/2024, [employer] Most recent HbA1c: 7.8% 10/31/2024 Random Glucose- 204 mg/dL, Today Social Sciences Professor Required: No Accompanied by: Self / Same As Patient Allergies No Known Allergies [No Known Allergies*] Allergy (Verified 12/22/24 13:44) HPI Comments Details: Patient is a 64-year-old male with DM type 2 diagnosed in 1990 who presents for f/u. . Hgb A1C 07/19/24 7.5% 01/2022 6.3% This is an interim f/u visit for Mike who was seen twice earlier this month His glucose readings have been elevated. Earlier in the week he reported fatigue which has since resolved. He has hypoglycemia unawareness and perlimited insight into his diabetes. Freestyle Jody average is 172. Last 3 days has had postprandial spikes Tresiba 46 units Humalog 6 units Has Nephropathy:eGFR 56 07/19/24 microalbumin: Less than 5.0 Has HLD on statin last ldl 79 07/2024 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: occurs after work when has not eaten all day. None on current monitor Hyperglycemia: occasional urinary frequency, + nocturia 3-5x, +polydypsia Diet: Breakfast: coffee and egg sandwich Lunch: hamburger Dinner: turkey, cheese sandwich with macaroni salad, diet soda , Snacks: banana or 0 sugar candy , Drinks throughout day: water, coffee Exercise: works at [employer] 16-18 hours a week. Frequently walks He was recently seen by the Milana [facility] Followed by GI medicine for idiopathic constipation [facility] Medical History Impacted cerumen, right ear Acute diarrhea Pain in both feet Calcaneal spur of right foot Achilles tendinitis Callus of foot Right hand pain Abdominal bloating Vertigo Calcaneal spur Colon cancer screening COVID-19 Pre-op examination Elevated LFTs Encounter for Medicare annual wellness exam Bowel obstruction Melena Knee pain, bilateral Gastroenteritis Healed wound Chronic idiopathic constipation Chronic idiopathic constipation Hospital discharge follow-up Knee osteoarthritis Obesity (BMI 30-39.9) Schizoaffective disorder Pure hypercholesterolemia Benign essential hypertension Chronic kidney disease (CKD), stage III (moderate) Type 2 diabetes mellitus with diabetic chronic kidney disease Morbid obesity Dyslipidemia 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 mellitus [facility] (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 Diabetic polyneuropathy associated with 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 mellitus Schizo affective schizophrenia Diabetes type 2, uncontrolled Surgical History History of repair of congenital cleft palate Hx of circumcision Family History Father HTN (hypertension) Mother Diabetes Other Mental health problem Social History Household Members: None Housing: Apartment Are you a primary career and transition teacher to a significant other at home: No Do you presently have visiting nurse or other home services: Yes Alcohol intake: former Patient Tobacco Use Status: Former Tobacco user Tobacco use type: Cigarette Cigarettes Per Day: 15 Years Smoked: 8 quit 30 years ago e-Cigarette/Vaping Use: Never Used Second Hand Smoke Exposure: No service: No Current occupational status: employed Current occupation: [employer] Cognitive needs: No Hearing needs: No Vision needs: Yes (glasses) Physical Exam Vital Signs: Last Vital Signs Pulse 94 12/26/24 14:21 BP 100/60 12/26/24 14:21 Pulse Ox 95 12/26/24 14:21 Oxygen Delivery Method Room Air 12/26/24 14:21 BMI result Body Mass Index 35.5 Const Other: Absence of Cushingoid features. Absence of acromegalic features. Neck exam reveals nl size thyroid about 15 gms. No thyroid nodules palpable. Heart S1 S2, Reg R/R. No M/R G. Skin exam reveals absence of vitiligo or acanthosis nigricans. Deferred Visual exam of foot performed. No ulcerations or open lesions. No inter digit maceration or fissuring. No onychomycosis, no callouses. Sensation intact to monofilament exam. Vibratory sensation is normal with 128 Hz tuning fork. Results Reviewed Results Reviewed: Laboratory Last Values Glucose (Clinic) 204 mg/dL (60-115) H 12/26/24 14:34 Assessment & Plan Assessment & Plan (1) Type 2 diabetes mellitus with diabetic chronic kidney disease: Code(s): E11.22 - Type 2 diabetes mellitus with diabetic chronic kidney disease Category: Medical Qualifiers: Diabetes mellitus termite exterminator insulin use: with skilled nursing use Chronic kidney disease stage: stage 3 (moderate) Chronic kidney disease stage 3 subtype: unspecified whether 3a or 3b Qualified Code(s): E11.22 - Type 2 diabetes mellitus with diabetic chronic kidney disease; N18.30 - Chronic kidney disease, stage 3 unspecified; Z79.4 - 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 Glucose has been spiking and he has agreed to increase his pre meal insulin and Tresiba. Tresiba 50 units Humalog 6 units with the biggest meal of the day Mounjaro 2.5 mg weekly He has a history of constipation but this is not increased since starting Mounjaro. We will most likely keep him at the lowest dose because of the constipation Medications: Changed From Humalog KwikPen Insulin (insulin lispro) with the largest meal of the day 6 units (0.06 mL) subcut DAILY 30 days 3 mL 6RF NS To Humalog KwikPen Insulin (insulin lispro) with the largest meal of the day 8 units (0.08 mL) subcut DAILY 30 days 3 mL 6RF NS From Tresiba FlexTouch U-200 (insulin degludec) 46 units (0.23 mL) subcut DAILY 90 days 21 mL 3RF NS E11.42 - Type 2 diabetes mellitus with diabetic polyneuropathy To Tresiba FlexTouch U-200 (insulin degludec) 50 units (0.25 mL) subcut DAILY 90 days 25 mL 3RF NS E11.42 - Type 2 diabetes mellitus with diabetic polyneuropathy Refilled tirzepatide (Mounjaro) 2.5 mg (0.5 mL) subcut QWEEK 4 weeks 2 mL 11RF Coding Level of Care Code Est Pt Level 3 (73023) Complex EM visit Add On G2211 Diagnoses Type 2 diabetes mellitus with stage 3 chronic kidney disease, with long-term current use of insulin, unspecified whether stage 3a or 3b CKD E11.22; N18.30; Z79.4 Diabetes mellitus skilled nursing insulin use: with skilled nursing use Chronic kidney disease stage: stage 3 (moderate) Chronic kidney disease stage 3 subtype: unspecified whether 3a or 3b Time Spent (min) 20 Comment Time spent reviewing labs/provider notes, face to face, chart doc
[2024-12-26 14:37] LABS: Glucose, Whole Blood 204 mg/dL (60-115)
== END 2024-12-26 15:11 | disposition home or self-care (01) ==
LOC: HO.ENCR 14:04
PROVIDERS: PCP Internal Medicine; Visit Provider Nurse Practitioner Adult Health
DX: E11.22 Type 2 diabetes mellitus with diabetic chronic kidney disease (principal); N18.30 Chronic kidney disease, stage 3 unspecified; Z79.4 Long term (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
CPT/HCPCS: 99213; G2211

== ENCOUNTER 2025-01-01 08:55 | Emergency (ER) | payer OTHER, SELFPAY ==
--- NOTE | ~2025-01-01 | XR_ITS ---
EXAMINATION: XR ABDOMEN KUB CLINICAL INDICATION: constipation COMPARISON: September 08, 2024. TECHNIQUE: AP view of the abdomen. FINDINGS: Patient's large body habitus. Gas throughout intestine. No air-fluid levels. Multilevel syndesmophyte formation and marginal osteophyte formation with endplate sclerosis throughout the axial skeleton. No metallic or radiopaque foreign body. No gross calcifications overlapping the kidney shadow. XR/XR KUB IMPRESSION: No intestinal obstruction pattern. Electronically signed by: Jeramie Chapman MD 01/01/2025 09:49 AM EDT
[2025-01-01 09:09] VITALS: BP 100/62; PULSE 86; RESP 18; TEMP 36.6; O2SAT 97; BMI 36.2
--- NOTE | 2025-01-01 10:08 | ED.GENADULT ---
HPI - General Adult General Chief complaint: General Medical Stated complaint: constipation Time Seen by Provider: 01/01/25 09:33 History of Present Illness ED Provider: Kaushik Tate MD HPI narrative: [age] male with chronic constipation. No previous abdominal surgeries feels mildly distended. Patient reports about 5 days of decreased BMs although he is passing small slightly hard bowel movements no blood. No vomiting. Denies any trauma taking milk of magnesia without help Related Data Home Medications ?Medication ?Instructions ?Recorded ?Confirmed hydroxyzine pamoate 50 mg capsule 50 mg PO TID PRN Anxiety 09/18/20 08/02/24 benztropine 0.5 mg tablet 0.5 mg PO BID 04/29/22 10/04/24 clozapine 100 mg tablet 100 mg PO TID 05/12/22 10/04/24 hydroxyzine pamoate 25 mg capsule mg PO ONCE 10/04/24 10/04/24 simethicone 180 mg capsule 180 mg PO TID 10/04/24 10/04/24 Previous Rx's ?Medication ?Instructions ?Recorded polyethylene glycol 3350 17 gram 17 g PO BID #30 ea 08/12/22 oral powder packet (Miralax) blood-glucose meter (FreeStyle #1 ea 03/27/23 Lite Meter kit) cholecalciferol (vitamin D3) 25 25 mcg PO DAILY #90 caps 12/21/23 mcg (1,000 unit) capsule ketoconazole 2 % topical cream 1 appl topical DAILY #30 grams 01/01/24 bisacodyl 5 mg tablet,delayed 10 mg (2 x 5 mg) PO BID #90 tabs 01/02/24 release acetaminophen 500 mg tablet 1,000 mg (2 x 500 mg) PO Q6H PRN 01/04/24 pain #30 tabs lidocaine 5 % topical patch 1 patch topical DAILY #15 ea 01/04/24 psyllium seed (sugar) oral powder 1 tsp PO BID #1,254 grams 03/07/24 (Metamucil (sugar) oral powder) pen needle, diabetic 29 gauge x #100 ea 04/24/24 1/2 (BD Ultra-Fine Original Pen Needle) sildenafil 50 mg tablet 50 mg PO DAILY PRN sexual activity 05/03/24 #10 tabs lancets 28 gauge (FreeStyle #100 ea 05/08/24 Lancets) blood sugar diagnostic (FreeStyle #100 ea 06/15/24 Lite Strips) glycerin (adult) 2 supp [place] .after shower 06/28/24 constipation #25 ea metoclopramide HCl 10 mg tablet 10 mg PO TID #90 tabs 06/28/24 (Reglan) guaifenesin 200 mg/5 mL oral liquid 400 mg (10 mL) PO Q6H PRN cough 07/01/24 #118 mL magnesium hydroxide 400 mg/5 mL 20 ml PO BEDTIME PRN constipation 07/01/24 oral suspension (Milk of Magnesia) #3,780 mL blood-glucose meter (FreeStyle #1 ea 07/18/24 Lite Meter kit) empagliflozin 25 mg tablet 25 mg PO QAM #30 tabs 10/04/24 (Jardiance) blood-glucose sensor (FreeStyle #2 ea 10/09/24 Jody 3 Plus Sensor device) blood-glucose,boarding kennel or cattery operator,cont #1 ea 10/09/24 (FreeStyle Jody 3 [place]) metformin 500 mg tablet 1,000 mg (2 x 500 mg) PO BID 90 10/29/24 days #360 tabs gabapentin 300 mg capsule 300 mg PO BEDTIME 90 days #90 caps 11/01/24 furosemide 20 mg tablet 20 mg PO DAILY #90 tabs 11/10/24 linaclotide 290 mcg capsule 290 mcg PO QAM #30 caps 11/14/24 (Linzess) ibuprofen 800 mg tablet 800 mg PO Q8H PRN for pain 30 days 12/06/24 #90 tabs cyclobenzaprine 10 mg tablet 10 mg PO DAILY PRN muscle spasm 12/10/24 #10 tabs salicylic acid 17 % topical liquid 1 appl topical .every 2 weeks #9 mL 12/10/24 (Wart Remover) docusate sodium 100 mg capsule 100 mg PO BID #60 caps 12/11/24 methylcellulose (laxative) 500 mg 1,000 mg (2 x 500 mg) PO TID #180 12/11/24 tablet (Fiber Therapy tabs (methylcellulose)) atorvastatin 10 mg tablet 10 mg PO DAILY #90 tabs 12/14/24 Humalog KwikPen Insulin 100 8 unit (0.08 mL) subcut DAILY 30 12/26/24 unit/mL subcutaneous (insulin days #3 mL lispro) Tresiba FlexTouch U-200 200 50 unit (0.25 mL) subcut DAILY 90 12/26/24 unit/mL (3 mL) subcutaneous pen days #25 mL (insulin degludec) tirzepatide 2.5 mg/0.5 mL 2.5 mg (0.5 mL) subcut QWEEK 4 12/26/24 subcutaneous pen injector weeks #2 mL (Mounjaro) sodium,potassium,mag sulfates 17.5 See Rx Instructions PO .COMPLEX 01/01/25 gram-3.13 gram-1.6 gram oral soln #354 mL (Suprep Bowel Prep Kit) Allergies Allergy/AdvReac Type Severity Reaction Status Date / Time No Known Allergies Allergy Verified 01/01/25 09:12 [No Known Allergies*] [facility] Past Medical History Medical History Impacted cerumen, right ear Acute diarrhea Pain in both feet Calcaneal spur of right foot Achilles tendinitis Callus of foot Right hand pain Abdominal bloating Vertigo Calcaneal spur Colon cancer screening COVID-19 Pre-op examination Elevated LFTs Encounter for Medicare annual wellness exam Bowel obstruction Melena Knee pain, bilateral Gastroenteritis Healed wound Chronic idiopathic constipation Chronic idiopathic constipation Hospital discharge follow-up Knee osteoarthritis Obesity (BMI 30-39.9) Schizoaffective disorder Pure hypercholesterolemia Benign essential hypertension Chronic kidney disease (CKD), stage III (moderate) Type 2 diabetes mellitus with diabetic chronic kidney disease Morbid obesity Dyslipidemia 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 mellitus USP (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 Diabetic polyneuropathy associated with 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 mellitus Schizo affective schizophrenia Diabetes type 2, uncontrolled Surgical History History of repair of congenital cleft palate Hx of circumcision Family History Family History Father HTN (hypertension) Mother Diabetes Other Mental health problem Social History Social History Household Members: None Housing: Apartment Are you a primary healthcare administration internship to a significant other at home: No Do you presently have visiting nurse or other home services: Yes Alcohol intake: former Patient Tobacco Use Status: Former Tobacco user Tobacco use type: Cigarette Cigarettes Per Day: 15 Years Smoked: 8 quit 30 years ago e-Cigarette/Vaping Use: Never Used Second Hand Smoke Exposure: No service: No Current occupational status: employed Current occupation: [employer] Cognitive needs: No Hearing needs: No Vision needs: Yes (glasses) Physical Exam ED Vital Signs: Vital Signs - 24 hr 01/01/25 09:09 Temperature 97.9 F Pulse Rate 86 Respiratory Rate 18 Blood Pressure 100/62 Pulse Oximetry 97 Oxygen Delivery Method Room Air BMI result Body Mass Index 36.2 Const Other: EXAM: Gen: Alert, awake, well appearing, well hydrated. Head: Atraumatic Eyes: Anicteric, Normal conjunctiva. ENT: Moist mucosa, no pallor. ? Neck: Supple. Respiratory: Breathing comfortably, No distress.Clear to auscultation bilaterally, symmetric chest expansion, No wheeze, rales, ronchi. Cardiovascular: Regular rate and rhythm. No murmurs or rub. Well perfused periphery, warm extremities. No edema. ? Abdominal: Obese, Soft, no objective distension. No palpable masses or obvious organomegaly. No focal tenderness, no guarding, no rebound tenderness or other peritoneal findings. : No flank tenderness. Neuro: Alert. Gross movement of all extremities intact. ? Vital signs: See flowsheet Medications Administered Discontinued Medications Generic Name Dose Route Start Last Admin Trade Name Freq PRN Reason Stop Dose Admin Lactulose 20 gm 01/01/25 09:59 01/01/25 10:15 Lactulose 20 Gm/30 Ml Solution PO 01/01/25 10:00 20 gm ONCE ONE Administration Medical Decision Making Medical Decision Making [facility] Narrative: [age] male with subjective constipation although he has been passing small amount of stool. He is mildly distended and massively obese. No surgical scars his abdomen is soft nontender there is no vomiting clinically not obstructed. Reassuring bowel gas pattern on x-ray lactulose in ED bowel prep at home. Differential Diagnosis Differential Diagnoses: The differential diagnosis associated with the presentation includes Constipation, ileus, obesity, gas Lab Data [facility] Lab Attestation statement: I reviewed the patient's lab results. Independent Interpretation I performed an independent interpretation of an: Plain X-Ray (No obstruction or free air) Discharge Plan Discharge Clinical Impression: Constipation Patient Disposition: Home, Self-Care Instructions: Constipation (DC) Additional Instructions: DISCHARGE DIAGNOSES: Constipation HISTORY OF PRESENTATION: Constipation EMERGENCY DEPARTMENT COURSE,TESTS, TREATMENTS: While in the ED today you received lactulose 1 dose of laxative. You had an x-ray that was reassuring of your abdomen DISCHARGE MEDICATIONS: Prescription laxative FOLLOW-UP: ?Call your primary or general physician soon as possible to discuss your symptoms, your ED visit and to discuss follow up plans Call your primary doctor for follow up INSTRUCTIONS ?& RETURN PRECAUTIONS: If any symptoms change first call your primary physician, if it is after-hours your primary doctors office should have a provider production wood craftsman you can speak with. If the symptoms are severe or very concerning to you then call 911 or return to the ED. [07] Kaushik Tate MD Emergency Physician [facility] Prescriptions: New sodium,potassium,mag sulfates [Suprep Bowel Prep Kit] 17.5-3.13-1.6 gram recon soln See Rx Instructions .ROUTE .COMPLEX Qty: 354 0RF Rx Instructions: DILUTE; drink full amount early evening before , one dose should be enough, do not repeat No Action (DME) blood-glucose meter [FreeStyle Lite Meter] Kit See Rx Instructions .Route Qty: 1 5RF Rx Instructions: Tests 4 X/day cholecalciferol (vitamin D3) 25 mcg (1,000 unit) capsule 25 mcg PO DAILY Qty: 90 12RF bisacodyl 5 mg tablet,delayed release (DR/EC) 10 mg PO BID Qty: 90 0RF (DME) pen needle, diabetic [BD Ultra-Fine Orig Pen Needle] 29 gauge x 1/2 needle See Rx Instructions .ROUTE DAILY Qty: 100 3RF Rx Instructions: As directed daily (DME) lancets [FreeStyle Lancets] 28 gauge misc See Rx Instructions .Route Qty: 100 4RF Rx Instructions: Tests 5x/day (DME) FreeStyle Lite Strips Strip See Rx Instructions .Route Qty: 100 5RF Rx Instructions: Tests 5X/day metoclopramide HCl [Reglan] 10 mg tablet 10 mg PO TID Qty: 90 6RF glycerin (adult) Suppository 2 supp WV .after shower Qty: 25 6RF magnesium hydroxide [Milk of Magnesia] 400 mg/5 mL suspension 20 ml PO BEDTIME PRN (Reason: constipation) Qty: 3780 6RF (DME) blood-glucose meter [FreeStyle Lite Meter] Kit See Rx Instructions .ROUTE .MEDSUPPLY Qty: 1 0RF Rx Instructions: As directed Jardiance 25 mg tablet 25 mg PO QAM Qty: 30 3RF (DME) FreeStyle Jody 3 [place] Misc See Rx Instructions .ROUTE .MEDSUPPLY Qty: 1 0RF Rx Instructions: As directed for use with freestyle jody 3+ sensor (DME) FreeStyle Jody 3 Plus Sensor Device See Rx Instructions .ROUTE .MEDSUPPLY Qty: 2 11RF Rx Instructions: every 15 days for continuous use metformin 500 mg tablet 1,000 mg PO BID 90 Days Qty: 360 1RF gabapentin 300 mg capsule 300 mg PO BEDTIME 90 Days Qty: 90 1RF furosemide 20 mg tablet 20 mg PO DAILY Qty: 90 1RF Linzess 290 mcg capsule 290 mcg PO QAM Qty: 30 6RF ibuprofen 800 mg tablet 800 mg PO Q8H PRN (Reason: for pain) 30 Days Qty: 90 0RF Rx Instructions: take with food docusate sodium 100 mg capsule 100 mg PO BID Qty: 60 0RF Fiber Therapy (m-cellulose) 500 mg tablet 1,000 mg PO TID Qty: 180 0RF atorvastatin 10 mg tablet 10 mg PO DAILY Qty: 90 0RF benztropine 0.5 mg tablet 0.5 mg PO BID Metamucil (sugar) Powder 1 tsp PO BID Qty: 1254 0RF hydroxyzine pamoate 50 mg capsule 50 mg PO TID PRN (Reason: Anxiety) ketoconazole 2 % cream 1 appl topical DAILY Qty: 30 0RF acetaminophen 500 mg tablet 1,000 mg PO Q6H PRN (Reason: pain) Qty: 30 0RF lidocaine 5 % adhesive patch,medicated 1 patch topical DAILY Qty: 15 0RF Rx Instructions: leave on most painful area for up to 12 hrs clozapine 100 mg tablet 100 mg PO TID polyethylene glycol 3350 [Miralax] 17 gram powder in packet 17 g PO BID Qty: 30 6RF sildenafil 50 mg tablet 50 mg PO DAILY PRN (Reason: sexual activity) Qty: 10 0RF Rx Instructions: administer 30 minutes to 4 hours before activity Wart Remover 17 % liquid 1 appl topical .every 2 weeks Qty: 9 0RF Rx Instructions: Apply to wart only, repeat in 2 weeks if no improvement. Do not use more than 4 treatments. cyclobenzaprine 10 mg tablet 10 mg PO DAILY PRN (Reason: muscle spasm) Qty: 10 0RF insulin lispro [Humalog KwikPen Insulin] 100 unit/mL insulin pen 8 unit subcut DAILY 30 Days Qty: 3 6RF Rx Instructions: with the largest meal of the day Mounjaro 2.5 mg/0.5 mL pen injector 2.5 mg subcut QWEEK 28 Days Qty: 2 11RF Tresiba FlexTouch U-200 200 unit/mL (3 mL) insulin pen 50 unit subcut DAILY 90 Days Qty: 25 3RF guaifenesin 200 mg/5 mL liquid 400 mg PO Q6H PRN (Reason: cough) Qty: 118 0RF hydroxyzine pamoate 25 mg capsule PO ONCE simethicone 180 mg capsule 180 mg PO TID Interventions: ED Discharge Assessment Last Done: 01/01/25 12:13 Discharge Date/Time: 01/01/25 12:13 Print Language: Australian
[2025-01-01] MEDS: Lactulose 20 GM/30 ML SOLUTION PO (10:15)
--- NOTE | 2025-01-01 10:40 | PC.NURSE ---
pt reports that he pooped a small amount
--- OUTSIDE RECORDS SUMMARY | 2025-01-01 10:40 | XMS_ITS ---
Author Organization [facility] Address [address] [place] [address] Care Team Providers Care Information Systems Manager Name Role Phone Luis Manuel Garcia MD Primary Care Provider Unava ilTu [place] Unavailable [phone] REASON FOR VISIT heel pain, Heel pain Problems Problem Type SNOMED Code ICD Code Onset Dates Problem Status W/U Status Risk Notes Problem Plantar fascial fibromatosis (33324331) Plantar fascial fibromatosis (M72.2) Active confirmed Encounters Encounter Location Date Provider Diagnosis [facility] [address] [place] [address] 12/06/2024 Tu Pierre Plantar fascial fibromatosis M72.2 Assessments Encounter Date Diagnosis (ICD Code) Assessment Notes Treatment Notes Treatment Clinical Notes Section Notes 12/06/2024 Plantar fascial fibromatosis (ICD-10 - M72.2) Plan Of Treatment No Information Progress Notes * Mike BAIRDDOB:[birth year] (64 yo M)Acc No.[id number]:12/06/2024 Patient:?Mike BAIRD :1960???Age:64 Y???Sex:Male Address:[address] [place] [address] [place], [address] * true * Date:? Generated for Ruthy wood/Garrison/eTransmitting on:?01/01/2025 10:40 AM EDT History and Physical Notes * [...]
--- OUTSIDE RECORDS SUMMARY | 2025-01-01 10:40 | XMS_ITS ---
Author Organization [facility] Address [address] [place] [address] Care Team Providers Care Trichologist Name Role Phone Manny Garcia MDneth Primary Care Provider Unava ilable Tu Pierre Unavailable [phone] REASON FOR VISIT cx 11/15 Encounters Encounter Location Date Provider Diagnosis [facility] [address] [place] [address] 10/01/2024 Tu Pierre Plan Of Treatment No Information Progress Notes * Mike BAIRDDOB:[birth year] (63 yo M)Acc No.[id number]:10/01/2024 Patient:?Mike BAIRD :1960???Age:63 Y???Sex:Male Address:[address] [place], [address] * true * Date:? Generated for Printi israel/Garrison/eTransmitting on:?01/01/2025 10:40 AM EDT
--- OUTSIDE RECORDS SUMMARY | 2025-01-01 10:40 | XMS_ITS | Patient Health Record ---
[facility] Address [address] [facility] [place] [address] Care Team Providers Care Linux Programmer Name Role Phone Jose RENAE, Luis Manuel Primary Care Provider UnaTu Paul Unavailable [phone] Allergies No Known Allergies Results Component Value [...] Problem Acquired hammer toe of right foot (801135643404620 5) Other hammer toe(s) (acquired), right foot (M20.41) Active confirmed Problem Plantar fascial fibromatosis (14435442) Plantar fascial fibromatosis (M72.2) Active confirmed Problem Acquired hammer toe of left foot (125101138293610 3) Other hammer toe(s) (acquired), left foot (M20.42) Active confirmed Problem Type 2 diabetes mellitus without complication (086508889) Type 2 diabetes mellitus without complication (E11.9) Active confirmed Vital Signs Blood pressure diastolic 80 mm Hg 08/30/2024 Height 6ft in 08/30/2024 Blood pressure systolic 130 mm Hg 08/30/2024 Weight 270 lbs 08/30/2024 BMI 36.61 kg/m2 08/30/2024 Procedures Procedure Date Ordered Date Performed Result Body Sit e 64809-VONECEO NAIL, 6 OR MORE 03/08/2024 N/A 44490-Icwgporr Plate 03/08/2024 N/A 39407-FSRL SKIN LESIONS, 2 TO 4 03/08/2024 N/A 88927-YQVIWGQ NAIL, 6 OR MORE 06/21/2024 N/A 45085-ISBD SKIN LESIONS, 2 TO 4 06/21/2024 N/A 61662-SLWYRAP NAIL, 6 OR MORE 08/30/2024 N/A 90484-JXEP SKIN LESIONS, 2 TO 4 08/30/2024 N/A Encounters Encounter Location Date Provider Diagnosis [facility] [place] [address] [place] [address] 03/08/2024 Tu Pierre Tinea unguium B35.1 ; [...] without complication E11.9 and Ingrown nail L60.[address] [address] 06/21/2024 Tu Pierre Tinea unguium B35.1 ; Pain in right toe(s) M79.674 ; Pain in left toe(s) M79.675 ; Achilles tendinitis of right lower extremity M76.61 and Type 2 diabetes mellitus without complication E11.9 [facility] [address] 08/30/2024 Tuwilliam Pierre Pain in right toe(s) M79.674 ; Tinea unguium B35.1 ; Pain in left toe(s) M79.675 ; Type 2 diabetes mellitus without complication E11.9 ; Other hammer toe(s) (acquired), right foot M20.41 and Other hammer toe(s) (acquired), left foot M20.[address] [address] 01/04/2024 Tu Gabby [facility] [address] 04/17/2024 Tu Pierre [address] [address] 09/03/2024 [facility] [address] 10/01/2024 Tu Pierre [facility] [address] 12/06/2024 Tu Pierre Plantar fascial fibromatosis M72.2 [...] X ray : Foot, right 3V 03/08/2024 64394-GENVVEG NAIL, 6 OR MORE 03/08/2024 19729-JCMOLCO NAIL, 6 OR MORE 06/21/2024 15069-YXGMKLK NAIL, 6 OR MORE 08/30/2024 79751-Eivewobr Plate 03/08/2024 81070-KGXQ SKIN LESIONS, 2 TO 4 03/08/20 24 82410-XRCY SKIN LESIONS, 2 TO 4 08/30/19 56459-EXCP SKIN LESIONS, 2 TO 4 06/21/20 Insurance Providers Payer Name Payer Address Payer Phone Subscriber Number Group Number Insured Name Patient Relationship to Insured Coverage Start Date Coverage End Date [facility] [employer] Claims [address] [place] [phone] [id number] Mike Cornejo Self - patient is the insured Medical (General) History Medical History History ICD Code Diabetic Surgical History Surgery Date(Month/Year)
--- OUTSIDE RECORDS SUMMARY | 2025-01-01 10:41 | XMS_ITS ---
Author Organization [facility] Address [address] [place] [address] Care Team Providers Care Machine Tool Designer Name Role Phone Jose RENAE, Luis Manuel Primary Care Provider Unava ilTu [place] Unavailable [phone] Encounters Encounter Location Date Provider Diagnosis [facility] [address] [place] [address] 11/15/2024 Tu Pierre Plan Of Treatment No Information Progress Notes * Mike BAIRDDOB:[birth year] (64 yo M)Acc No.[id number]:11/15/2024 Progress Note Patient:?OLI Mike Provider:?Tu Pierre DPM :1960???Age:64 Y???Sex:Male Taurus e:11/15/2024 Address:[address] [place] [address] [id number] Pcp:Luis Manuel Garcia MD Subjective: * Chief [...] Pierre DPM Date:?2024 Generated for Ruthy wood/Garrison/eTransmitting on:?01/01/2025 10:40 AM EDT
[2025-01-01 12:13] VITALS: BP 100/62; PULSE 86; RESP 18; TEMP 36.6; O2SAT 97
== END 2025-01-01 12:13 | disposition home or self-care (01) ==
PROVIDERS: Emergency Provider Emergency Medicine; PCP Internal Medicine
DX: K59.00 Constipation, unspecified (principal); Z79.899 Other long term (current) drug therapy
CPT/HCPCS: 74018; 99283; 99284

== ENCOUNTER → 2025-01-01 09:20 | Outpatient (BNV) | payer OTHER, SELFPAY | PROVIDERS: Emergency Provider Emergency Medicine; PCP Internal Medicine; Visit Provider Radiology Diagnostic Radiology | DX: M25.78 Osteophyte, vertebrae (principal) | CPT/HCPCS: 74018 ==

== ENCOUNTER 2025-01-02 11:33 | Outpatient (AMB) | payer OTHER, SELFPAY ==
--- NOTE | 2025-01-02 12:07 | MHC.AMDMED ---
Intake Intake Visit Reasons: 30 min Strap Sewer Required: No Accompanied by: Self / Same As Patient Allergies No Known Allergies [No Known Allergies*] Allergy (Verified 01/01/25 09:12) HPI Comprehensive Diabetes Asmnt Most Recent Diabetes Results: Microalb/Creat Ratio TNP 07/19/24 Cholesterol 162 mg/dL (<200) 07/19/24 HDL Cholesterol 34 mg/dL (>40) L 07/19/24 Triglycerides 247 mg/dL (<150) H 07/19/24 Creatinine 1.22 mg/dL (0.5-1.4) 12/22/24 Blood Urea Nitrogen 24 mg/dL (9-16) H 12/22/24 Sodium 143 mmol/L (135-145) 12/22/24 Potassium 4.3 mmol/L (3.3-5.1) 12/22/24 Chloride 110 mmol/L (96-108) H 12/22/24 Carbon Dioxide 21 mmol/L (22-29) L 12/22/24 Calcium 9.5 mg/dL (8.4-10.2) 12/22/24 AST 64 U/L (5-37) H 12/22/24 ALT 154 U/L (0-40) H 12/22/24 Total Protein 7.2 g/dL (6.5-8.0) 12/22/24 Albumin 4.2 g/dL (3.5-5.0) 12/22/24 [facility] Medical History Impacted cerumen, right ear Acute diarrhea Pain in both feet Calcaneal spur of right foot Achilles tendinitis Callus of foot Right hand pain Abdominal bloating Vertigo Calcaneal spur Colon cancer screening COVID-19 Pre-op examination Elevated LFTs Encounter for Medicare annual wellness exam Bowel obstruction Melena Knee pain, bilateral Gastroenteritis Healed wound Chronic idiopathic constipation Chronic idiopathic constipation Hospital discharge follow-up Knee osteoarthritis Obesity (BMI 30-39.9) Schizoaffective disorder Pure hypercholesterolemia Benign essential hypertension Chronic kidney disease (CKD), stage III (moderate) Type 2 diabetes mellitus with diabetic chronic kidney disease Morbid obesity Dyslipidemia 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 mellitus 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 Diabetic polyneuropathy associated with 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 mellitus Schizo affective schizophrenia Diabetes type 2, uncontrolled Surgical History History of repair of congenital cleft palate Hx of circumcision Family History Father HTN (hypertension) Mother Diabetes Other Mental health problem Social History Household Members: None Housing: Apartment Are you a primary manager long term care to a significant other at home: No Do you presently have visiting nurse or other home services: Yes Alcohol intake: former Patient Tobacco Use Status: Former Tobacco user Tobacco use type: Cigarette Cigarettes Per Day: 15 Years Smoked: 8 quit 30 years ago e-Cigarette/Vaping Use: Never Used Second Hand Smoke Exposure: No service: No Current occupational status: employed Current occupation: [employer] Cognitive needs: No Hearing needs: No Vision needs: Yes (glasses) Assessment & Plan Assessment & Plan (1) Type 2 diabetes mellitus with diabetic chronic kidney disease: Code(s): E11.22 - Type 2 diabetes mellitus with diabetic chronic kidney disease Qualifiers: Diabetes mellitus exterminator helper termite insulin use: with senior care use Chronic kidney disease stage: stage 3 (moderate) Chronic kidney disease stage 3 subtype: unspecified whether 3a or 3b Qualified Code(s): E11.22 - Type 2 diabetes mellitus with diabetic chronic kidney disease; N18.30 - Chronic kidney disease, stage 3 unspecified; Z79.4 - 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 Plan: Personal Continuous Glucose Monitor: Patients CGM information reviewed, Pt uses Yours [place] 3+ with reader Sensor data: 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: ? 0% Hyperglycemia:? 39% Time in Range: 61%? Average glucose for the last 2 weeks? 170 mg/dL Patient's episodes of hypoglycemia have resolved. Encourage patient to carry glucose tabs with him at all times in case of hypoglycemic events. Patient's Tresiba increase to 50 units daily Humalog 8 units prior to meals, patient reports he has increase doses as prescribed on 12/26/2024 Introduction to Nutrition Importance of healthy diet in managing DM Who prepares meals/does food shopping/ Dining out?/ Barriers? Eating 3 balanced meals a day with small, healthy snacks between meals Carbohydrates: What is a carbohydrate/Which food/food groups are considered carbohydrates Effect of carbohydrates on blood glucose Portion sizes Plate method Meal planning Recommendations: Follow plate method Patient able to insert sensor independently at home without issue.? Patient will follow-up with coding educator in 2 months Portions of this note were created using voice recognition software, please excuse any words or phrases that may have been misinterpreted. Coding Level of Care Code Est Pt Level 1 (45193) Diagnoses Type 2 diabetes mellitus with stage 3 chronic kidney disease, with long-term current use of insulin, unspecified whether stage 3a or 3b CKD E11.22; N18.30; Z79.4 Diabetes mellitus exterminator helper termite insulin use: with senior care use Chronic kidney disease stage: stage 3 (moderate) Chronic kidney disease stage 3 subtype: unspecified whether 3a or 3b
--- OUTSIDE RECORDS SUMMARY | 2025-01-02 12:10 | XMS_ITS | Patient Health Record ---
Author Organization [facility] Address [address] [facility] [place] [address] Care Team Providers Care Avionics Installer Name Role Phone Jose RENAE, Luis Manuel Primary Care Provider UnaTu Paul Unavailable [phone] Allergies No Known Allergies Results Component Value [...] Problem Acquired hammer toe of right foot (693074909461050 5) Other hammer toe(s) (acquired), right foot (M20.41) Active confirmed Problem Plantar fascial fibromatosis (80127332) Plantar fascial fibromatosis (M72.2) Active confirmed Problem Acquired hammer toe of left foot (575344076210619 3) Other hammer toe(s) (acquired), left foot (M20.42) Active confirmed Problem Type 2 diabetes mellitus without complication (837800662) Type 2 diabetes mellitus without complication (E11.9) Active confirmed Vital Signs Blood pressure diastolic 80 mm Hg 08/30/2024 Height 6ft in 08/30/2024 Blood pressure systolic 130 mm Hg 08/30/2024 Weight 270 lbs 08/30/2024 BMI 36.61 kg/m2 08/30/2024 Procedures Procedure Date Ordered Date Performed Result Body Sit e 26564-JSYRLAJ NAIL, 6 OR MORE 03/08/2024 N/A 33258-Gdyjkhov Plate 03/08/2024 N/A 82709-PUVB SKIN LESIONS, 2 TO 4 03/08/2024 N/A 55533-RQKBHDR NAIL, 6 OR MORE 06/21/2024 N/A 82296-ZGKD SKIN LESIONS, 2 TO 4 06/21/2024 N/A 61945-PJZDLZQ NAIL, 6 OR MORE 08/30/2024 N/A 70115-JBYX SKIN LESIONS, 2 TO 4 08/30/2024 N/A Encounters Encounter Location Date Provider Diagnosis [facility] [place] [address] [place] [address] 03/08/2024 Tu Pierre Tinea unguium B35.1 ; [...] without complication E11.9 and Ingrown nail L60.[address] [address] 06/21/2024 Tu Pierre Tinea unguium B35.1 ; Pain in right toe(s) M79.674 ; Pain in left toe(s) M79.675 ; Achilles tendinitis of right lower extremity M76.61 and Type 2 diabetes mellitus without complication E11.9 [facility] [address] 08/30/2024 Tuwilliam Pierre Pain in right toe(s) M79.674 ; Tinea unguium B35.1 ; Pain in left toe(s) M79.675 ; Type 2 diabetes mellitus without complication E11.9 ; Other hammer toe(s) (acquired), right foot M20.41 and Other hammer toe(s) (acquired), left foot M20.[address] [address] 01/04/2024 Tu Gabby [facility] [address] 04/17/2024 Tu Pierre [address] [address] 09/03/2024 Tu [facility] [address] 10/01/2024 Tu Pierre [facility] [address] 12/06/2024 Tu Pierre Plantar fascial fibromatosis M72.2 [...] X ray : Foot, right 3V 03/08/2024 78720-QKVTHII NAIL, 6 OR MORE 03/08/2024 94386-AVRHMMH NAIL, 6 OR MORE 06/21/2024 86000-JIQRFOB NAIL, 6 OR MORE 08/30/2024 34577-Edwjbked Plate 03/08/2024 55637-VLSR SKIN LESIONS, 2 TO 4 03/08/20 24 58204-DXFQ SKIN LESIONS, 2 TO 4 08/30/19 34897-ZXPY SKIN LESIONS, 2 TO 4 06/21/20 Insurance Providers Payer Name Payer Address Payer Phone Subscriber Number Group Number Insured Name Patient Relationship to Insured Coverage Start Date Coverage End Date [facility] SCO Claims [address] [place] [id number] [phone] [id number] Mike Cornejo Self - patient is the insured Medical (General) History Medical History History ICD Code Diabetic Surgical History Surgery Date(Month/Year)
--- OUTSIDE RECORDS SUMMARY | 2025-01-02 12:11 | XMS_ITS ---
Author Organization [facility] Address [address] [place] [address] Care Team Providers Care Agent Contract Clerk Name Role Phone Manny Garcia MDneth Primary Care Provider Unava ilable Tu Pierre Unavailable [phone] REASON FOR VISIT cx 11/15 Encounters Encounter Location Date Provider Diagnosis [facility] [address] [place] [address] 10/01/2024 Tu Pierre Plan Of Treatment No Information Progress Notes * Mike BAIRDDOB:[birth year] (63 yo M)Acc No.[id number]:10/01/2024 Patient:?Mike BAIRD :1960???Age:63 Y???Sex:Male Address:[address] [place], [address] * true * Date:? Generated for Printi israel/Garrison/eTransmitting on:?01/02/2025 12:10 PM EDT
--- OUTSIDE RECORDS SUMMARY | 2025-01-02 12:11 | XMS_ITS ---
Author Organization [facility] Address [address] [place] [address] Care Team Providers Care Heat Set Operator Name Role Phone Jose RENAE, Luis Manuel Primary Care Provider Unava ilTu [place] Unavailable [phone] Encounters Encounter Location Date Provider Diagnosis [facility] [address] [place] [address] 11/15/2024 Tu Pierre Plan Of Treatment No Information Progress Notes * Mike BAIRDDOB:[birth year] (64 yo M)Acc No.[id number]:11/15/2024 Progress Note Patient:?OLI Mike Provider:?Tu Pierre DPM :1960???Age:64 Y???Sex:Male Taurus e:11/15/2024 Address:[address] [place] [address] [place] Pcp:Luis Manuel Garcia MD Subjective: * Chief [...] Pierre DPM Date:?2024 Generated for Ruthy wood/Garrison/eTransmitting on:?01/02/2025 12:10 PM EDT
--- OUTSIDE RECORDS SUMMARY | 2025-01-02 12:11 | XMS_ITS ---
Author Organization [facility] Address [address] [place] [address] Care Team Providers Care Animal Impersonator Name Role Phone Luis Manuel Garcia MD Primary Care Provider Unava ilTu [place] Unavailable [phone] REASON FOR VISIT heel pain, Heel pain Problems Problem Type SNOMED Code ICD Code Onset Dates Problem Status W/U Status Risk Notes Problem Plantar fascial fibromatosis (74090990) Plantar fascial fibromatosis (M72.2) Active confirmed Encounters Encounter Location Date Provider Diagnosis [facility] [address] [place] [address] 12/06/2024 Tu Pierre Plantar fascial fibromatosis M72.2 Assessments Encounter Date Diagnosis (ICD Code) Assessment Notes Treatment Notes Treatment Clinical Notes Section Notes 12/06/2024 Plantar fascial fibromatosis (ICD-10 - M72.2) Plan Of Treatment No Information Progress Notes * Mike BAIRDDOB:[birth year] (64 yo M)Acc No.[id number]:12/06/2024 Patient:?Mike BAIRD :1960???Age:64 Y???Sex:Male Address:[address] [place] [address] [place], [address] * true * Date:? Generated for Ruthy wood/Garrison/eTransmitting on:?01/02/2025 12:10 PM EDT History and Physical Notes * [...]
== END 2025-01-02 12:18 | disposition home or self-care (01) ==
LOC: HO.ENCR 11:33
PROVIDERS: PCP Internal Medicine; Visit Provider Registered Nurse Diabetes Educator
DX: E11.22 Type 2 diabetes mellitus with diabetic chronic kidney disease (principal); N18.30 Chronic kidney disease, stage 3 unspecified; Z79.4 Long term (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

== ENCOUNTER → 2025-01-02 11:33 | Outpatient (BNVA) | payer OTHER, SELFPAY | PROVIDERS: PCP Internal Medicine; Visit Provider Registered Nurse Diabetes Educator | DX: E11.22 Type 2 diabetes mellitus with diabetic chronic kidney disease (principal); N18.30 Chronic kidney disease, stage 3 unspecified; Z79.4 Long term (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 | CPT/HCPCS: 99211 ==

== ENCOUNTER 2025-01-16 13:02 | Outpatient (AMB) | payer OTHER, SELFPAY ==
--- NOTE | 2025-01-16 13:06 | A.OFFVIS_ITS ---
Vital Signs 01/16/25 13:12 Height 6 ft 1 in Weight 281 lb BMI 37.1 BP 100/70 Blood Pressure Location Rt brachial Position Sitting Pulse 88 Pulse Source Pulse Oximeter Pulse Oximetry (%) 98 Oxygen Delivery Method Room Air Intake Visit Reasons: T2DM Intake Note: Patient presents today for a follow-up for Type 2 Diabetes Mellitus: Last Diabetic eye exam was on: 08/08/2024, [facility]. Last Podiatry exam was on: 08/30/2024, [facility] Most recent HbA1c: 7.8% 10/31/2024 Random Glucose- 221mg/dL, Today Allergies No Known Allergies [No Known Allergies*] Allergy (Verified 01/16/25 13:08) HPI Comments Details: Patient is a 64-year-old male with DM type 2 diagnosed in 1990 who presents for f/u. He was last seen 12/26/2024 Hgb A1C 07/19/24 7.5% 01/2022 6.3% He has hypoglycemia unawareness and limited insight into his diabetes. Freestyle jody sensor 3 average glucose: 175 14 day continuous glucose sensor report reviewed Glucose Management indicator 7.5 % Time CGM active 97 % TIme in ranges: 4 % very high (above 250) 39 % high (181-250) 57 % in range (70-180] 0 % low (69-55) 0 % very low (below 54) Interpretation of CGMS readings slightly above target Tresiba 50 units Humalog 8 units before largest meal of the day Retinopathy: last eye exam 08/08/24 Neuropathy:+ Has Nephropathy: EGFR>60 12/22/24 microalbumin: 07/2024 Less than 5.0 Has HLD on statin last ldl 79 07/2024 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: occurs after work when has not eaten all day. None on current monitor Hyperglycemia: occasional urinary frequency, + nocturia 3-5x, +polydypsia Diet: Breakfast: coffee and egg sandwich Lunch: hamburger Dinner: turkey, cheese sandwich with macaroni salad, diet soda , Snacks: banana or 0 sugar candy , Drinks throughout day: water, coffee Exercise: works at [employer] 16-18 hours a week. Frequently walks Followed by GI medicine for idiopathic constipation [facility] Medical History Impacted cerumen, right ear Acute diarrhea Pain in both feet Calcaneal spur of right foot Achilles tendinitis Callus of foot Right hand pain Abdominal bloating Vertigo Calcaneal spur Colon cancer screening COVID-19 Pre-op examination Elevated LFTs Encounter for Medicare annual wellness exam Bowel obstruction Melena Knee pain, bilateral Gastroenteritis Healed wound Chronic idiopathic constipation Chronic idiopathic constipation Hospital discharge follow-up Knee osteoarthritis Obesity (BMI 30-39.9) Schizoaffective disorder Pure hypercholesterolemia Benign essential hypertension Chronic kidney disease (CKD), stage III (moderate) Type 2 diabetes mellitus with diabetic chronic kidney disease Morbid obesity Dyslipidemia 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 mellitus 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 Diabetic polyneuropathy associated with 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 mellitus Schizo affective schizophrenia Diabetes type 2, uncontrolled Surgical History History of repair of congenital cleft palate Hx of circumcision Family History Father HTN (hypertension) Mother Diabetes Other Mental health problem Social History Household Members: None Housing: Apartment Are you a primary career services coordinator to a significant other at home: No Do you presently have visiting nurse or other home services: Yes Alcohol intake: former Patient Tobacco Use Status: Former Tobacco user Tobacco use type: Cigarette Cigarettes Per Day: 15 Years Smoked: 8 quit 30 years ago e-Cigarette/Vaping Use: Never Used Second Hand Smoke Exposure: No service: No Current occupational status: employed Current occupation: [employer] Cognitive needs: No Hearing needs: No Vision needs: Yes (glasses) Physical Exam Vital Signs: Last Vital Signs Pulse 88 01/16/25 13:12 BP 100/70 01/16/25 13:12 Pulse Ox 98 01/16/25 13:12 Oxygen Delivery Method Room Air 01/16/25 13:12 BMI result Body Mass Index 37.1 Const Other: Absence of Cushingoid features. Absence of acromegalic features. Neck exam reveals nl size thyroid about 15 gms. No thyroid nodules palpable. Heart S1 S2, Reg R/R. No M/R G. Skin exam reveals absence of vitiligo or acanthosis nigricans. No edema. Assessment & Plan Assessment & Plan (1) Type 2 diabetes mellitus with diabetic chronic kidney disease: Code(s): E11.22 - Type 2 diabetes mellitus with diabetic chronic kidney disease Category: Medical Qualifiers: Diabetes mellitus nursing home insulin use: with nursing home use Chronic kidney disease stage: stage 3 (moderate) Chronic kidney disease stage 3 subtype: unspecified whether 3a or 3b Qualified Code(s): E11.22 - Type 2 diabetes mellitus with diabetic chronic kidney disease; N18.30 - Chronic kidney disease, stage 3 unspecified; Z79.4 - 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 Plan: 64-year-old type 2 diabetic with nephropathy and neuropathy presents today for review of glucose sensor. Glucose average is 175. When he takes Humalog 8 units it does decrease him to the 80 to 140 range. will increase his Tresiba to 52 units and continue Humalog to lower overall average He was given specific parameters as to when to call the office: If you have more than 1 sugar in a week less than 60 If your 7 day glucose average is over 250 If your blood sugar is over 300 for more than 3 hours go to the ER or call our office if we are open. Medications: Changed From Tresiba FlexTouch U-200 (insulin degludec) 50 units (0.25 mL) subcut DAILY 90 days 25 mL 3RF NS E11.42 - Type 2 diabetes mellitus with diabetic polyneuropathy To Tresiba FlexTouch U-200 (insulin degludec) 52 units (0.26 mL) subcut DAILY 90 days 25 mL 3RF NS E11.42 - Type 2 diabetes mellitus with diabetic polyneuropathy Refilled blood-glucose sensor (FreeStyle Jody 3 Plus Sensor device) every 15 days for continuous use 2 ea 11RF E11.22 - Type 2 diabetes mellitus with diabetic chronic kidney disease, N18.30 - Chronic kidney disease, stage 3 unspecified, Z79.4 - [facility] (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 Coding Level of Care Code Est Pt Level 3 (69307) Complex EM visit Add On G2211 Diagnoses Type 2 diabetes mellitus with stage 3 chronic kidney disease, with long-term current use of insulin, unspecified whether stage 3a or 3b CKD E11.22; N18.30; Z79.4 Diabetes mellitus nursing home insulin use: with predatory animal exterminator use Chronic kidney disease stage: stage 3 (moderate) Chronic kidney disease stage 3 subtype: unspecified whether 3a or 3b Time Spent (min) 15 Comment Time spent reviewing labs/provider notes, face to face, chart doc
[2025-01-16 13:12] VITALS: BP 100/70; PULSE 88; O2SAT 98; BMI 37.1
--- OUTSIDE RECORDS SUMMARY | 2025-01-16 15:12 | XMS_ITS | Patient Health Record ---
Author [facility] Address [address] [place] [address] Care Team Providers Care Park Interpretive Ranger Name Role Phone Jose RENAE, Luis Manuel Primary Care Provider UnaTu Paul Unavailable [phone] Allergies No Known Allergies Results Component Value [...] Problem Acquired hammer toe of right foot (773114666905259 5) Other hammer toe(s) (acquired), right foot (M20.41) Active confirmed Problem Plantar fascial fibromatosis (75732400) Plantar fascial fibromatosis (M72.2) Active confirmed Problem Acquired hammer toe of left foot (454824097540170 3) Other hammer toe(s) (acquired), left foot (M20.42) Active confirmed Problem Type 2 diabetes mellitus without complication (031116558) Type 2 diabetes mellitus without complication (E11.9) Active confirmed Vital Signs Blood pressure diastolic 80 mm Hg 08/30/2024 Height 6ft in 08/30/2024 Blood pressure systolic 130 mm Hg 08/30/2024 Weight 270 lbs 08/30/2024 BMI 36.61 kg/m2 08/30/2024 Procedures Procedure Date Ordered Date Performed Result Body Sit e 93762-ELNIWYA NAIL, 6 OR MORE 03/08/2024 N/A 81328-Kjiggoyn Plate 03/08/2024 N/A 02329-WCCH SKIN LESIONS, 2 TO 4 03/08/2024 N/A 60410-NOVFULL NAIL, 6 OR MORE 06/21/2024 N/A 67841-FQDG SKIN LESIONS, 2 TO 4 06/21/2024 N/A 47908-GQJMQDA NAIL, 6 OR MORE 08/30/2024 N/A 75311-CFCZ SKIN LESIONS, 2 TO 4 08/30/2024 N/A Encounters Encounter Location Date Provider Diagnosis [facility] [address] [place] [address] 03/08/2024 Tu Pierre Tinea unguium B35.1 ; [...] without complication E11.9 and Ingrown nail L60.[address] [address] 06/21/2024 Tu Pierre Tinea unguium B35.1 ; Pain in right toe(s) M79.674 ; Pain in left toe(s) M79.675 ; Achilles tendinitis of right lower extremity M76.61 and Type 2 diabetes mellitus without complication E11.[address] [facility] [address] 08/30/2024 Tuwilliam Pierre Pain in right toe(s) M79.674 ; Tinea unguium B35.1 ; Pain in left toe(s) M79.675 ; Type 2 diabetes mellitus without complication E11.9 ; Other hammer toe(s) (acquired), right foot M20.41 and Other hammer toe(s) (acquired), left foot M20.[address] [address] 04/17/2024 Tu Pierre [address] [address] 09/03/2024 Tu Pierre [address] [address] 10/01/2024 Tu Pierre [address] [address] 12/06/2024 Tu Pierre Plantar fascial fibromatosis M72.2 [...] X ray : Foot, right 3V 03/08/2024 95184-KCWWTHJ NAIL, 6 OR MORE 03/08/2024 17571-AYBWVZN NAIL, 6 OR MORE 06/21/2024 03398-SFEBJQK NAIL, 6 OR MORE 08/30/2024 27554-Hsplwlgd Plate 03/08/2024 41984-MTRS SKIN LESIONS, 2 TO 4 03/08/20 24 84671-QFLJ SKIN LESIONS, 2 TO 4 08/30/19 17978-OTHR SKIN LESIONS, 2 TO 4 06/21/20 Insurance Providers Payer Name Payer Address Payer Phone Subscriber Number Group Number Insured Name Patient Relationship to Insured Coverage Start Date Coverage End Date [facility] SCO Claims [address] [place] [id number] [phone] [id number] Mike Cornejo Self - patient is the insured Medical (General) History Medical History History ICD Code Diabetic Surgical History Surgery Date(Month/Year)
[2025-01-17 11:05] LABS: Glucose, Whole Blood 221 mg/dL (60-115)
== END 2025-01-16 13:43 | disposition home or self-care (01) ==
LOC: HO.ENCR 13:03
PROVIDERS: PCP Internal Medicine; Visit Provider Nurse Practitioner Adult Health
DX: E11.22 Type 2 diabetes mellitus with diabetic chronic kidney disease (principal); N18.30 Chronic kidney disease, stage 3 unspecified; Z79.4 Long term (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
CPT/HCPCS: 99213; G2211

== ENCOUNTER → 2025-01-16 13:02 | Outpatient (BNVA) | payer OTHER, SELFPAY | PROVIDERS: PCP Internal Medicine; Visit Provider Nurse Practitioner Adult Health | DX: E11.22 Type 2 diabetes mellitus with diabetic chronic kidney disease (principal); N18.30 Chronic kidney disease, stage 3 unspecified; Z79.4 Long term (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 | CPT/HCPCS: 82947; 99212 ==

== ENCOUNTER 2025-01-23 12:45 | Outpatient (AMB) | payer OTHER, SELFPAY ==
--- NOTE | 2025-01-23 12:47 | MHC.OFFVIS ---
Vital Signs 01/23/25 13:02 Height 6 ft 1 in Weight 281 lb BMI 37.1 BP 98/62 Blood Pressure Location Rt brachial Position Sitting Pulse 92 Pulse Source Pulse Oximeter Pulse Oximetry (%) 97 Oxygen Delivery Method Room Air Intake Visit Reasons: follow up Intake Note: Established patient for mgmt of fecal abn. CC; Pt denies any GI sx or concerns right now. Pt states his current Rx therapies are working well for him. Surgical Processor Required: No Accompanied by: Self / Same As Patient Allergies No Known Allergies [No Known Allergies*] Allergy (Verified 01/23/25 12:48) HPI HPI follow up: Details: Assessment & Plan (1) Chronic idiopathic constipation: Code(s): K59.04 - Chronic idiopathic constipation Category: Medical (2) Delayed gastric emptying: Code(s): K30 - Functional dyspepsia Category: Medical (3) Schizoaffective disorder: Code(s): F25.9 - Schizoaffective disorder, unspecified Category: Medical Qualifiers: Schizoaffective disorder type: unspecified Qualified Code(s): F25.9 - Schizoaffective disorder, unspecified Plan He says he lost his hearing has not appointment at 03:00 o'clock with his primary care provider to check this. He says he has been extremely constipated and presented to our ER 2 days ago. They gave him a soapsuds enema which moved his bowels. He denies any change in any of his other chronic medications and he says that he has been consistently taking his Linzess 290, his metoclopramide 5 mg 3 times a day, his Colace twice a day, and is fiber therapy. He also tried taking his milk of magnesia that we had reserved for p.r.n. constipation use taking 3 doses 1 night than waiting 2 nights and taking another 3 without results. In the ER they gave him a soapsuds enema which seems to have cleared him. He says that he continues to try to eat vegetables and salads as in the past let us seem to help him clear his bowels. It is really difficult with Mike given his cognitive impairment to know exactly what is going on with him but he has always been difficult and has had a myriad of constipation medications in the past. The problem is he tends to alternate between constipation and then severe diarrhea with rectal incontinence which I think is due to inconsistent use of a variety of medications. In the past he has done poorly utilizing MiraLax, senna, bisacodyl and lactulose because these have caused him severe gas and bloating and breakthrough diarrhea. I have stopped these medications because of this. Chronic medications that certainly complicate the picture as well are his Lasix, clozapine, his benztropine, his metformin Jardiance side effects, and is Jardiance do the osmotic effect. At this point it seems like this may be a rectal impaction problem so I am going to do 2 things. I am going to increase the Reglan to 10 mg 3 times a day and I am going to add glycerin suppositories to his regimen. I have written all this out for him so that he can follow the directions in his med box. He says that the simethicone is making him feel nauseated so it is okay to stop this. Return office visit in 3 weeks Medications: Discontinued lactulose Discontinued Reason: Doctor's Order 20 grams (30 mL) PO BID 2,880 mL 0RF sennosides (senna) Discontinued Reason: Doctor's Order 17.2 mg (2 x 8.6 mg) PO BEDTIME 60 tabs 6RF for constipation Patient Instructions: Mike Cornejo 1.Stop the simethicone. 2.I am increasing the metoclopramide from 5mg 3 times a day to 10mg 3 times a day. If you want you can take 2 tablets of the 5mg dose 3 times a day until you get the higher dose. 3.I am sending a new medicine called glycerin suppositories, please use 2 of these every day if you have not had a bowel movement until you have a bowel movement. TODAYS VISIT He is doing well. He has figured out to take his MOM only when he becomes constipated despite his other medications, but if he takes it when he is not backed up then he will have diarrhea. His current GI regimen consists Colace 100 mg twice a day, Linzess 290 micro g daily, Reglan 10 mg 3 times a day, simethicone 180 mg 3 times a day, and it is unclear whether he has ever utilize the glycerin suppositories but he is utilizing milk of magnesia with good success. Return office visit in 6 months FOR[facility]LY [facility], [facility] Medical History Impacted cerumen, right ear Acute diarrhea Pain in both feet Calcaneal spur of right foot Achilles tendinitis Callus of foot Right hand pain Abdominal bloating Vertigo Calcaneal spur Colon cancer screening COVID-19 Pre-op examination Elevated LFTs Encounter for Medicare annual wellness exam Bowel obstruction Melena Knee pain, bilateral Gastroenteritis Healed wound Chronic idiopathic constipation Chronic idiopathic constipation Hospital discharge follow-up Knee osteoarthritis Obesity (BMI 30-39.9) Schizoaffective disorder Pure hypercholesterolemia Benign essential hypertension Chronic kidney disease (CKD), stage III (moderate) Type 2 diabetes mellitus with diabetic chronic kidney disease Morbid obesity Dyslipidemia 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 mellitus [employer] (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 Diabetic polyneuropathy associated with 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 mellitus Schizo affective schizophrenia Diabetes type 2, uncontrolled Surgical History History of repair of congenital cleft palate Hx of circumcision Family History Father HTN (hypertension) Mother Diabetes Other Mental health problem Social History Household Members: None Housing: Apartment Are you a primary caretaker grounds to a significant other at home: No Do you presently have visiting nurse or other home services: Yes Alcohol intake: former Patient Tobacco Use Status: Former Tobacco user Tobacco use type: Cigarette Cigarettes Per Day: 15 Years Smoked: 8 quit 30 years ago e-Cigarette/Vaping Use: Never Used Second Hand Smoke Exposure: No service: No Current occupational status: employed Current occupation: [employer] Cognitive needs: No Hearing needs: No Vision needs: Yes (glasses) Review of Systems Const Denies fatigue, Denies fever(s), Denies night sweats, Denies poor appetite and Denies weight loss Eyes Details: glasses Reports requires corrective lenses ENT Reports Normal hearing present, Denies dental pain, Denies dysphagia, Denies hearing loss, Denies mouth pain, Denies odynophagia, Denies throat swelling, Denies tongue swelling and Reports other (Dentition adequate) Card Reports no additional complaints Resp Reports no additional complaints GI Details: Denies abdominal pain, Denies melena, Denies bloating, Denies hematochezia, Reports constipation, Denies GI cramping, Denies dysphagia, Denies excessive flatus, Denies early satiety, Reports heartburn, Denies diarrhea, Denies nausea, Denies odynophagia, Denies vomiting and Denies hematemesis Musc Reports back pain and Reports myalgias Skin/Breast Denies pruritus, Denies lesions, Denies rash and Denies jaundice Neuro Reports Normal hearing present and Denies Abnormal speech present Endo Denies fatigue Aller/Immun Denies throat swelling and Denies tongue swelling Physical Exam Vital Signs: Last Vital Signs Pulse 92 01/23/25 13:02 BP 98/62 01/23/25 13:02 Pulse Ox 97 01/23/25 13:02 Oxygen Delivery Method Room Air 01/23/25 13:02 BMI result Body Mass Index 37.1 Const General: cooperative, no acute distress, well developed and well groomed Nutritional Appearance: well nourished and obese Orientation/consciousness: oriented to person, oriented to place and oriented to time Limitations: No language barrier and other limitations (Cognitive/intellectual impairment) HEENT Head: Yes normocephalic and Yes atraumatic Eyes General: appearance normal, both eyes and all related structures Pupils: Equal, round and reactive pupils present Neck Neck: Yes normal visual inspection and Yes no lymphadenopathy Thyroid: Thyroid normal Resp Effort & Inspection: normal respiratory effort and able to speak in complete sentences Auscultation: clear to auscultation bilaterally Cardio Rate: regular rate Rhythm: regular rhythm Heart sounds: Normal, physiologic split S2 sound present Peripheral pulses: radial pulses present and posterior tibial pulses present GI Inspection: No distended, Yes Abdominal panniculus present and Yes obesity Palpation (GI): Soft to palpation, nontender, no guarding, not rigid and No hepatosplenomegaly present Percussion: Yes normal to percussion Auscultation: normal bowel sounds Rectal Exam - Male: Yes deferred Skin General skin exam: no rashes or lesions noted, turgor normal, skin not dry, no jaundice, No spider nevi and no striae Rashes: no rashes Nails: normal Neuro General: oriented to person, oriented to place and oriented to time Cranial nerves: Yes Equal, round and reactive pupils present and Yes Normal hearing present Speech: No Abnormal speech present Extrem General: Yes normal to inspection, No clubbing, No cyanosis and No edema Psych Appearance: grossly normal and well kempt Mental Status: mental status grossly normal Speech and movement: Normal speech and movement present Affect: normal affect Attitude: cooperative Thought process: Circumstantial thought process present and not confabulating Thought content: Normal thought content present Insight: Limited insight present (Psych) Judgement: Limited judgement present (Psych) Assessment & Plan Assessment & Plan (1) Chronic idiopathic constipation: Code(s): K59.04 - Chronic idiopathic constipation Category: Medical (2) Delayed gastric emptying: Code(s): K30 - Functional dyspepsia Category: Medical Plan He is doing well. He has figured out to take his MOM only when he becomes constipated despite his other medications, but if he takes it when he is not backed up then he will have diarrhea. His current GI regimen consists Colace 100 mg twice a day, Linzess 290 micro g daily, Reglan 10 mg 3 times a day, simethicone 180 mg 3 times a day, and it is unclear whether he has ever utilize the glycerin suppositories but he is utilizing milk of magnesia with good success. Return office visit in 6 months Medications: New simethicone 180 mg PO TID 90 caps 6RF Refilled docusate sodium 100 mg PO BID 60 caps 6RF linaclotide (Linzess) 290 mcg PO QAM 30 caps 6RF K59.04 - Chronic idiopathic constipation magnesium hydroxide (Milk of Magnesia) 20 mL PO BEDTIME PRN 3,780 mL 6RF constipation metoclopramide HCl (Reglan) 10 mg PO TID 90 tabs 0RF Coding Level of Care Code Est Pt Level 3 (54437) Diagnoses Chronic idiopathic constipation K59.04 Delayed gastric emptying K30
[2025-01-23 13:02] VITALS: BP 98/62; PULSE 92; O2SAT 97; BMI 37.1
--- OUTSIDE RECORDS SUMMARY | 2025-01-23 14:42 | XMS_ITS | Patient Health Record ---
Author Organization [facility] [place] Address [address] [place] [address] Care Team Providers Care Direct Marketing Coordinator Name Role Phone Jose RENAE, Luis Manuel Primary Care Provider UnaTu Paul Unavailable [phone] Allergies No Known Allergies Results Component Value [...] Problem Acquired hammer toe of right foot (852753104176049 5) Other hammer toe(s) (acquired), right foot (M20.41) Active confirmed Problem Plantar fascial fibromatosis (49543650) Plantar fascial fibromatosis (M72.2) Active confirmed Problem Acquired hammer toe of left foot (586452431147297 3) Other hammer toe(s) (acquired), left foot (M20.42) Active confirmed Problem Type 2 diabetes mellitus without complication (484030974) Type 2 diabetes mellitus without complication (E11.9) Active confirmed Vital Signs Blood pressure diastolic 80 mm Hg 08/30/2024 Height 6ft in 08/30/2024 Blood pressure systolic 130 mm Hg 08/30/2024 Weight 270 lbs 08/30/2024 BMI 36.61 kg/m2 08/30/2024 Procedures Procedure Date Ordered Date Performed Result Body Sit e 25428-IFVYBEL NAIL, 6 OR MORE 03/08/2024 N/A 69199-Ycewfwqm Plate 03/08/2024 N/A 11187-RQHA SKIN LESIONS, 2 TO 4 03/08/2024 N/A 68446-TFSFOXR NAIL, 6 OR MORE 06/21/2024 N/A 62740-RAQD SKIN LESIONS, 2 TO 4 06/21/2024 N/A 19269-JSUISMY NAIL, 6 OR MORE 08/30/2024 N/A 80667-VOLS SKIN LESIONS, 2 TO 4 08/30/2024 N/A Encounters Encounter Location Date Provider Diagnosis [facility] [address] [place] [address] 03/08/2024 Tu Pierre Tinea unguium B35.1 ; [...] without complication E11.9 and Ingrown nail L60.[address] [address] 06/21/2024 uT Pierre Tinea unguium B35.1 ; Pain in right toe(s) M79.674 ; Pain in left toe(s) M79.675 ; Achilles tendinitis of right lower extremity M76.61 and Type 2 diabetes mellitus without complication E11.[address] [facility] [address] 08/30/2024 Tuwilliam Pierre Pain in right toe(s) M79.674 ; Tinea unguium B35.1 ; Pain in left toe(s) M79.675 ; Type 2 diabetes mellitus without complication E11.9 ; Other hammer toe(s) (acquired), right foot M20.41 and Other hammer toe(s) (acquired), left foot M20.[address] [address] 04/17/2024 Tu Pierre [address] [address] 09/03/2024 Tu Pierre [address] [address] 10/01/2024 Tu Pierre [address] [address] 12/06/2024 Tu Pierre Plantar fascial fibromatosis M72.2 [...] X ray : Foot, right 3V 03/08/2024 96608-AEGZUIQ NAIL, 6 OR MORE 03/08/2024 46988-RIAYJAB NAIL, 6 OR MORE 06/21/2024 96243-SFUHVNO NAIL, 6 OR MORE 08/30/2024 20330-Wwkbmeek Plate 03/08/2024 89144-NFFK SKIN LESIONS, 2 TO 4 03/08/20 24 83642-RBOR SKIN LESIONS, 2 TO 4 08/30/19 35491-FLTK SKIN LESIONS, 2 TO 4 06/21/20 Insurance Providers Payer Name Payer Address Payer Phone Subscriber Number Group Number Insured Name Patient Relationship to Insured Coverage Start Date Coverage End Date [facility] [employer] Claims [address] [place] [address] [phone] [id number] Mike Cornejo Self - patient is the insured Medical (General) History Medical History History ICD Code Diabetic Surgical History Surgery Date(Month/Year)
== END 2025-01-23 13:34 | disposition home or self-care (01) ==
LOC: HO.HGI 12:46
PROVIDERS: PCP Internal Medicine; Visit Provider Nurse Practitioner
DX: K59.04 Chronic idiopathic constipation (principal); K30 Functional dyspepsia
CPT/HCPCS: 99213

== ENCOUNTER → 2025-01-23 12:45 | Outpatient (BNVA) | payer OTHER, SELFPAY | PROVIDERS: PCP Internal Medicine; Visit Provider Nurse Practitioner | DX: K59.04 Chronic idiopathic constipation (principal); K30 Functional dyspepsia | CPT/HCPCS: 99212 ==

== ENCOUNTER 2025-01-26 16:32 | Emergency (ER) | payer OTHER, SELFPAY ==
[2025-01-26 16:42] VITALS: BP 128/80; PULSE 96; RESP 20; TEMP 36.6; O2SAT 100; BMI 35.9
--- NOTE | 2025-01-26 16:43 | ED_ITS ---
HPI - Back Pain/Injury General Chief Complaint: Back Pain/Injury Stated Complaint: back pain Time Seen by Provider: 01/26/25 16:57 Source: patient Mode of arrival: ambulatory Limitations: no limitations History of Present Illness ED Provider: Gena Holloway APRN HPI Narrative: 64-year-old male with pmhx significant for DM, HLD, CKD, HTN, hypercholesterolemia here with left sided back pain atraumatic x 2 days. No radiation of pain. No complaints of abdominal pain, chest pain, shortness of breath, vomiting, diarrhea, urinary changes, fevers, chills, numbness/tingling/weakness in extremities. No reports of incontinence. Took one dose of motrin 800mg yesterday at home with continued pain. Related Data Home Medications ?Medication ?Instructions ?Recorded ?Confirmed benztropine 0.5 mg tablet 0.5 mg PO BID 04/29/22 10/04/24 clozapine 100 mg tablet 100 mg PO TID 05/12/22 10/04/24 Previous Rx's ?Medication ?Instructions ?Recorded blood-glucose meter (FreeStyle #1 ea 03/27/23 Lite Meter kit) cholecalciferol (vitamin D3) 25 25 mcg PO DAILY #90 caps 12/21/23 mcg (1,000 unit) capsule ketoconazole 2 % topical cream 1 appl topical DAILY #30 grams 01/01/24 bisacodyl 5 mg tablet,delayed 10 mg (2 x 5 mg) PO BID #90 tabs 01/02/24 release acetaminophen 500 mg tablet 1,000 mg (2 x 500 mg) PO Q6H PRN 01/04/24 pain #30 tabs lidocaine 5 % topical patch 1 patch topical DAILY #15 ea 01/04/24 pen needle, diabetic 29 gauge x #100 ea 04/24/24 1/2 (BD Ultra-Fine Original Pen Needle) sildenafil 50 mg tablet 50 mg PO DAILY PRN sexual activity 05/03/24 #10 tabs lancets 28 gauge (FreeStyle #100 ea 05/08/24 Lancets) blood sugar diagnostic (FreeStyle #100 ea 06/15/24 Lite Strips) glycerin (adult) 2 supp PA .after shower 06/28/24 constipation #25 ea guaifenesin 200 mg/5 mL oral liquid 400 mg (10 mL) PO Q6H PRN cough 07/01/24 #118 mL blood-glucose meter (FreeStyle #1 ea 07/18/24 Lite Meter kit) empagliflozin 25 mg tablet 25 mg PO QAM #30 tabs 10/04/24 (Jardiance) blood-glucose,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,cont #1 ea 10/09/24 (FreeStyle Jody 3 [place]) metformin 500 mg tablet 1,000 mg (2 x 500 mg) PO BID 90 10/29/24 days #360 tabs gabapentin 300 mg capsule 300 mg PO BEDTIME 90 days #90 caps 11/01/24 furosemide 20 mg tablet 20 mg PO DAILY #90 tabs 11/10/24 ibuprofen 800 mg tablet 800 mg PO Q8H PRN for pain 30 days 12/06/24 #90 tabs cyclobenzaprine 10 mg tablet 10 mg PO DAILY PRN muscle spasm 12/10/24 #10 tabs salicylic acid 17 % topical liquid 1 appl topical .every 2 weeks #9 mL 12/10/24 (Wart Remover) methylcellulose (laxative) 500 mg 1,000 mg (2 x 500 mg) PO TID #180 12/11/24 tablet (Fiber Therapy tabs (methylcellulose)) atorvastatin 10 mg tablet 10 mg PO DAILY #90 tabs 12/14/24 Humalog KwikPen Insulin 100 8 unit (0.08 mL) subcut DAILY 30 12/26/24 unit/mL subcutaneous (insulin days #3 mL lispro) tirzepatide 2.5 mg/0.5 mL 2.5 mg (0.5 mL) subcut QWEEK 4 12/26/24 subcutaneous pen injector weeks #2 mL (Mounjaro) Tresiba FlexTouch U-200 200 52 unit (0.26 mL) subcut DAILY 90 01/16/25 unit/mL (3 mL) subcutaneous pen days #25 mL (insulin degludec) blood-glucose sensor (FreeStyle #2 ea 01/16/25 Jody 3 Plus Sensor device) docusate sodium 100 mg capsule 100 mg PO BID #60 caps 01/23/25 linaclotide 290 mcg capsule 290 mcg PO QAM #30 caps 01/23/25 (Linzess) magnesium hydroxide 400 mg/5 mL 20 ml PO BEDTIME PRN constipation 01/23/25 oral suspension (Milk of Magnesia) #3,780 mL metoclopramide HCl 10 mg tablet 10 mg PO TID #90 tabs 01/23/25 (Reglan) simethicone 180 mg capsule 180 mg PO TID #90 caps 01/23/25 acetaminophen 325 mg capsule 650 mg (2 x 325 mg) PO Q4H PRN 01/26/25 pain #30 caps cyclobenzaprine 10 mg tablet 10 mg PO TID PRN muscle spasm #12 01/26/25 tabs Allergies Allergy/AdvReac Type Severity Reaction Status Date / Time No Known Allergies Allergy Verified 01/26/25 16:45 [No Known Allergies*] Review of Systems 2 Review of Systems: Yes all other systems are reviewed and are negative Constitutional: Constitutional: Reports no additional constitutional complaints, Denies body ache(s), Denies chills, Denies fever(s), Denies headache(s) and Denies weakness Eyes: Eyes: Reports no additional eye complaints and Denies change in vision ENT: Reports system reviewed and no additional complaints, except as documented, Denies dizziness, Denies headache(s), Denies nasal congestion, Denies nasal discharge and Denies neck pain Cardiovascular: Cardiovascular: Reports no additional cardiovascular complaints, Denies chest pain, Denies leg edema and Denies dyspnea Respiratory: Respiratory: Reports no additional respiratory complaints, Denies cough and Denies dyspnea Gastrointestinal: Gastrointestinal: Reports no additional gastrointestinal complaints, Denies abdominal pain, Denies diarrhea, Denies nausea and Denies vomiting Genitourinary: Genitourinary: Denies urinary incontinence Musculoskeletal: Musculoskeletal: Reports no additional musculoskeletal complaints, Reports back pain, Denies arthralgias, Denies joint swelling, Denies neck pain, Denies numbness and Denies tingling Integumentary/Breasts: Skin/Breast: Reports system reviewed and no additional complaints, except as docu and Denies rash Neurologic: Reports system reviewed and no additional complaints, except as documented, Denies Abnormal speech present, Denies dizziness, Denies headache(s), Denies numbness, Denies tingling and Denies weakness PMFSH Past Medical History Attestation statement: The following information was validated with the patient. Source: old records reviewed and nursing notes reviewed Medical History Impacted cerumen, right ear Acute diarrhea Pain in both feet Calcaneal spur of right foot Achilles tendinitis Callus of foot Right hand pain Abdominal bloating Vertigo Calcaneal spur Colon cancer screening COVID-19 Pre-op examination Elevated LFTs Encounter for Medicare annual wellness exam Bowel obstruction Melena Knee pain, bilateral Gastroenteritis Healed wound Chronic idiopathic constipation Chronic idiopathic constipation Hospital discharge follow-up Knee osteoarthritis Obesity (BMI 30-39.9) Schizoaffective disorder Pure hypercholesterolemia Benign essential hypertension Chronic kidney disease (CKD), stage III (moderate) Type 2 diabetes mellitus with diabetic chronic kidney disease Morbid obesity Dyslipidemia 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 mellitus penitentiary (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 Diabetic polyneuropathy associated with 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 mellitus Schizo affective schizophrenia Diabetes type 2, uncontrolled Surgical History History of repair of congenital cleft palate Hx of circumcision Family History Family History Father HTN (hypertension) Mother Diabetes Other Mental health problem Social History Social History Household Members: None Housing: Apartment Are you a primary respiratory care practitioner to a significant other at home: No Do you presently have visiting nurse or other home services: Yes Alcohol intake: former Patient Tobacco Use Status: Former Tobacco user Tobacco use type: Cigarette Cigarettes Per Day: 15 Years Smoked: 8 quit 30 years ago e-Cigarette/Vaping Use: Never Used Second Hand Smoke Exposure: No Advance Directives: No Advance Directives Information Provided: No service: No Current occupational status: employed Current occupation: [employer] Cognitive needs: No Hearing needs: No Vision needs: Yes (glasses) Physical Exam 2 Vital Signs: Vital Signs: Last Vital Signs Temp 98 F 01/26/25 16:42 Pulse 96 01/26/25 16:42 Resp 20 01/26/25 16:42 BP 128/80 01/26/25 16:42 Pulse Ox 100 01/26/25 16:42 O2 Del Method Room Air 01/26/25 16:42 BMI result Body Mass Index 35.9 Const: General: cooperative, healthy appearing, comfortable and no acute distress Orientation/consciousness: patient oriented x3 Limitations: no limitations HEENT: Head: Yes normal to inspection Ears: hearing grossly normal bilaterally General nose exam: Normal external nose present Face and sinus: Yes normal facial exam Mouth: Normal oral and palatal mucosa present Throat: Yes posterior oropharynx normal Eyes: General: appearance normal, both eyes and all related structures P upils: Equal, round and reactive pupils present Neck: Neck: Yes normal visual inspection, Yes full ROM, Yes no lymphadenopathy and Yes no meningeal signs Chest: Chest palpation & inspection: normal inspection of the chest Resp: Effort & Inspection: normal respiratory effort Auscultation: clear to auscultation bilaterally Cardio: Rate: regular rate Rhythm: regular rhythm Peripheral pulses: P eripheral pulses 2+ throughout GI: Inspection: Yes normal to inspection Palpation (GI): Soft to palpation and nontender Auscultation: normal bowel sounds Back/Spine/Pelvis: Thoracic/Lumbar Spine: thoracic and lumbar spine normal to inspection Back/spine/pelvis image: 1. TTP to soft tissue with muscle spasm, no midline tenderness to palp/no step offs or deformities Skin: General skin exam: no rashes or lesions noted Neuro: General: patient oriented x3, no meningeal signs, no focal motor deficits and normal sensation to monofilament Cranial nerves: Yes Equal, round and reactive pupils present Cognition (Neuro): normal cognition S peech: No Abnormal speech present Gait exam (Neuro): Normal gait present M otor exam (neuro): 5/5 motor strength present throughout Sensory Exam: Normal double simultaneous stimulation for sensation Deep tendon reflexes (DTR's): R ight patellar reflex intensity grade: 2+ and Left patellar reflex intensity grade: 2+ Extrem: General: Yes normal to inspection Course Course Course Narrative: Lisette Holloway APRN This is a rapid medical exam. Deferred additional HPI, ROS, PE to primary provider. 64-year-old male with pmhx significant for DM, HLD, CKD, HTN, hypercholesterolemia here with left sided back pain atraumatic x 2 days Will check UA Seems MS VSS Medications Administered Discontinued Medications Generic Name Dose Route Start Last Admin Trade Name Freq PRN Reason Stop Dose Admin Acetaminophen 975 mg 01/26/25 17:30 01/26/25 17:41 Acetaminophen 325 Mg Tablet PO 01/26/25 17:31 975 mg ONCE ONE Administration Ibuprofen 600 mg 01/26/25 17:30 01/26/25 17:40 Ibuprofen 600 Mg Tablet PO 01/26/25 17:31 600 mg ONCE ONE Administration Medical Decision Making Medical Decision Making [facility] Narrative: 64-year-old male with pmhx significant for DM, HLD, CKD, HTN, hypercholesterolemia here with left sided back pain atraumatic x 2 days. No radiation of pain. No complaints of abdominal pain, chest pain, shortness of breath, vomiting, diarrhea, urinary changes, fevers, chills, numbness/tingling/weakness in extremities. No reports of incontinence. Took one dose of motrin 800mg yesterday at home with continued pain. TTP over left lumbar soft tissue area with no CVAT, no midline tenderness/step offs or deformities. No neuro deficits or red flag symptoms Will send UA Likely MS Differential Diagnosis Differential Diagnoses: The differential diagnosis associated with the presentation includes Lumbar radiculopathy, lumbar strain, herniated disc Low suspicion for epidural abscess with no risk factors of same, no neurological deficits or red flag symptoms Low suspicion for ACS with no reports of chest pain, shortness of breath, diaphoresis or vomiting Low suspicion for pyelonephritis or renal colic with no CVA tenderness, urinary symptoms reported Low suspicion for malignancy with no red flag symptoms, more acute onset Low suspicion for cord compression, cauda equina with normal neurological exam and no red flag symptoms Admission/Observation Consideration of admission/observation: Escalation of care including admission/observation considered No neuro deficits or red flag symptoms to suggest need for emergent MRI, urgent NSY and or admission Lab Data [facility] Lab Attestation statement: I reviewed the patient's lab results. Labs: Lab Results 01/26/25 Range/Units 16:48 Urine Color Yellow Urine Appearance Clear Urine pH 5.0 (5.0-9.0) Ur Specific [place] 1.020 (1.005-1.025) Urine Protein Negative (Neg-Trace) mg/dL Urine Glucose (UA) >=1000 H (Negative) mg/dL Urine Ketones Negative (Negative) mg/dL Urine Blood Negative (Negative) Urine Nitrite Negative (Negative) Ur Leukocyte Esterase Negative (Negative) Tests considered The following testing was considered but not selected: No neuro deficits or red flag symptoms to suggest need for emergent MRI, Discharge Plan Discharge Clinical Impression: Muscle spasm, Acute lumbar myofascial strain Patient Disposition: Home, Self-Care Instructions: Muscle Spasm (ED), Back Pain (ED) Additional Instructions: Heat or ice Gentle stretching No heavy lifting or bending Take the prescriptions as prescribed Follow-up with your PCP for any continued symptoms Prescriptions: New acetaminophen 325 mg capsule 650 mg PO Q4H PRN (Reason: pain) Qty: 30 0RF cyclobenzaprine 10 mg tablet 10 mg PO TID PRN (Reason: muscle spasm) Qty: 12 0RF No Action (DME) blood-glucose meter [FreeStyle Lite Meter] Kit See Rx Instructions .Route Qty: 1 5RF Rx Instructions: Tests 4 X/day cholecalciferol (vitamin D3) 25 mcg (1,000 unit) capsule 25 mcg PO DAILY Qty: 90 12RF bisacodyl 5 mg tablet,delayed release (DR/EC) 10 mg PO BID Qty: 90 0RF (DME) pen needle, diabetic [BD Ultra-Fine Orig Pen Needle] 29 gauge x 1/2 needle See Rx Instructions .ROUTE DAILY Qty: 100 3RF Rx Instructions: As directed daily (DME) lancets [FreeStyle Lancets] 28 gauge misc See Rx Instructions .Route Qty: 100 4RF Rx Instructions: Tests 5x/day (DME) FreeStyle Lite Strips Strip See Rx Instructions .Route Qty: 100 5RF Rx Instructions: Tests 5X/day glycerin (adult) Suppository 2 supp PA .after shower Qty: 25 6RF (DME) blood-glucose meter [FreeStyle Lite Meter] Kit See Rx Instructions .ROUTE .MEDSUPPLY Qty: 1 0RF Rx Instructions: As directed Jardiance 25 mg tablet 25 mg PO QAM Qty: 30 3RF (DME) FreeStyle Jody 3 [place] Misc See Rx Instructions .ROUTE .MEDSUPPLY Qty: 1 0RF Rx Instructions: As directed for use with freestyle jody 3+ sensor metformin 500 mg tablet 1,000 mg PO BID 90 Days Qty: 360 1RF gabapentin 300 mg capsule 300 mg PO BEDTIME 90 Days Qty: 90 1RF furosemide 20 mg tablet 20 mg PO DAILY Qty: 90 1RF ibuprofen 800 mg tablet 800 mg PO Q8H PRN (Reason: for pain) 30 Days Qty: 90 0RF Rx Instructions: take with food Fiber Therapy (m-cellulose) 500 mg tablet 1,000 mg PO TID Qty: 180 0RF atorvastatin 10 mg tablet 10 mg PO DAILY Qty: 90 0RF benztropine 0.5 mg tablet 0.5 mg PO BID ketoconazole 2 % cream 1 appl topical DAILY Qty: 30 0RF acetaminophen 500 mg tablet 1,000 mg PO Q6H PRN (Reason: pain) Qty: 30 0RF lidocaine 5 % adhesive patch,medicated 1 patch topical DAILY Qty: 15 0RF Rx Instructions: leave on most painful area for up to 12 hrs clozapine 100 mg tablet 100 mg PO TID sildenafil 50 mg tablet 50 mg PO DAILY PRN (Reason: sexual activity) Qty: 10 0RF Rx Instructions: administer 30 minutes to 4 hours before activity docusate sodium 100 mg capsule 100 mg PO BID Qty: 60 6RF Linzess 290 mcg capsule 290 mcg PO QAM Qty: 30 6RF magnesium hydroxide [Milk of Magnesia] 400 mg/5 mL suspension 20 ml PO BEDTIME PRN (Reason: constipation) Qty: 3780 6RF metoclopramide HCl [Reglan] 10 mg tablet 10 mg PO TID Qty: 90 0RF simethicone 180 mg capsule 180 mg PO TID Qty: 90 6RF Wart Remover 17 % liquid 1 appl topical .every 2 weeks Qty: 9 0RF Rx Instructions: Apply to wart only, repeat in 2 weeks if no improvement. Do not use more than 4 treatments. cyclobenzaprine 10 mg tablet 10 mg PO DAILY PRN (Reason: muscle spasm) Qty: 10 0RF insulin lispro [Humalog KwikPen Insulin] 100 unit/mL insulin pen 8 unit subcut DAILY 30 Days Qty: 3 6RF Rx Instructions: with the largest meal of the day Mounjaro 2.5 mg/0.5 mL pen injector 2.5 mg subcut QWEEK 28 Days Qty: 2 11RF (DME) FreeStyle Jody 3 Plus Sensor Device See Rx Instructions .ROUTE .MEDSUPPLY Qty: 2 11RF Rx Instructions: every 15 days for continuous use Tresiba FlexTouch U-200 200 unit/mL (3 mL) insulin pen 52 unit subcut DAILY 90 Days Qty: 25 3RF guaifenesin 200 mg/5 mL liquid 400 mg PO Q6H PRN (Reason: cough) Qty: 118 0RF Referrals: Luis Manuel Garcia MD [Primary Care Provider] - 1 week Interventions: ED Discharge Assessment Last Done: 01/26/25 17:53 Print Language: Lao
[2025-01-26 17:17] LABS: Appearance Urine Clear; Color Urine Yellow; Glucose Urine UA >=1000 mg/dL (Negative); Leukocyte Esterase Urine Negative (Negative); Nitrite Urine Negative (Negative); UMIC TRIGGER UACC YES; Urine Blood Negative (Negative); Urine Ketones Negative (Negative); Urine Protein Negative (Neg-Trace)
[2025-01-26] MEDS: Ibuprofen 600 MG TABLET PO (17:40)
[2025-01-26] MEDS: Acetaminophen 325 MG TABLET 975 MG PO (17:41)
[2025-01-26 17:53] VITALS: BP 128/80; PULSE 96; RESP 20; TEMP 36.6; O2SAT 100
[2025-01-26 21:40] LABS: Bacteria Urine None Seen (None Seen); Hyaline Casts Urine 0-2 /LPF (0-2); RBC Urine 0-2 /HPF (0-2); Squamous Epithelial Cell Urine 0-2 /HPF (0-2); WBC Urine 0-5 /HPF (0-5)
== END 2025-01-26 17:54 | disposition home or self-care (01) ==
PROVIDERS: Nurse Practitioner Family; Emergency Provider Internal Medicine; PCP Internal Medicine
DX: M62.830 Muscle spasm of back (principal); S39.012A Strain of muscle, fascia and tendon of lower back, initial encounter; X58.XXXA Exposure to other specified factors, initial encounter; Y93.9 Activity, unspecified; Y92.9 Unspecified place or not applicable; Y99.9 Unspecified external cause status
CPT/HCPCS: 81001; 81003; 99283

== ENCOUNTER 2025-02-05 17:33 | Emergency (ER) | payer OTHER, SELFPAY ==
--- NOTE | ~2025-02-05 | XR_ITS ---
CLINICAL HISTORY: constipation 1 view abdomen Comparison: CR/SR - XR KUB - 01/01/25 09:27 EDT Findings: Large body habitus. Nonobstructive bowel gas pattern. Moderate colonic stool. No pathologic calcifications. No acute fractures. Degenerative changes of the spine and mild degenerative changes of bilateral hips. IMPRESSION: 1. Nonobstructive bowel gas pattern. 2. Moderate colonic stool. This document has been electronically signed by: Linda Chávez MD on 02/05/2025 18:43:04
--- NOTE | 2025-02-05 17:46 | ED_ITS ---
HPI - General Adult General Chief complaint: General Medical Stated complaint: constipation Time Seen by Provider: 02/05/25 19:19 Source: patient Mode of arrival: ambulatory Limitations: no limitations History of Present Illness ED Provider: HPI narrative: Patient's history of frequent constipation comes here for constipation for last 1 week unable to move bowels tried to use milk of magnesium with poor response feel abdominal bloating no nausea no vomiting Related Data Home Medications ?Medication ?Instructions ?Recorded ?Confirmed benztropine 0.5 mg tablet 0.5 mg PO BID 04/29/2210/04 clozapine 100 mg tablet 100 mg PO TID 05/12/2210/04 Previous Rx's ?Medication ?Instructions ?Recorded blood-glucose meter (FreeStyle #1 ea 03/27/23 Lite Meter kit) cholecalciferol (vitamin D3) 25 25 mcg PO DAILY #90 ca ps 12/21/23 mcg (1,000 unit) capsule ketoconazole 2 % topical cream 1 appl topical DAILY #3 0 grams 01/01/24 bisacodyl 5 mg tablet,delayed 10 mg (2 x 5 mg) PO BID #90 tabs 01/02/24 release Held on 01/11/24. Instructions: Doctor's Order acetaminophen 500 mg tablet 1,000 mg (2 x 500 mg) PO Q 6H PRN 01/04/24 pain #30 tabs lidocaine 5 % topical patch 1 patch topical DAILY #15 ea 01/04/24 sildenafil 50 mg tablet 50 mg PO DAILY PRN sexual ac tivity 05/03/24 #10 tabs lancets 28 gauge (FreeStyle #100 ea 05/08/24 Lancets) blood sugar diagnostic (FreeStyle #100 ea 06/15/24 Lite Strips) glycerin (adult) 2 supp RI .after shower 06/14 01/04 constipation #25 ea guaifenesin 200 mg/5 mL oral liquid 400 mg (10 mL) PO Q6H PRN cough 07/01/24 #118 mL blood-glucose meter (FreeStyle #1 ea 07/18/24 Lite Meter kit) blood-glucose,independent sales representative,cont #1 ea 10/09/24 (FreeStyle Jody 3 Cody) gabapentin 300 mg capsule 300 mg PO BEDTIME 90 days #9 0 caps 11/01/24 furosemide 20 mg tablet 20 mg PO DAILY #90 tabs 0 cyclobenzaprine 10 mg tablet 10 mg PO DAILY PRN muscle spasm 12/10/24 #10 tabs salicylic acid 17 % topical liquid 1 appl topical .doreen ry 2 weeks #9 mL 12/10/24 (Wart Remover) atorvastatin 10 mg tablet 10 mg PO DAILY #90 tabs 05/0 11/05 Humalog KwikPen Insulin 100 8 unit (0.08 mL) subcut DA HEENA 30 12/26/24 unit/mL subcutaneous (insulin days #3 mL lispro) tirzepatide 2.5 mg/0.5 mL 2.5 mg (0.5 mL) subcut QWEEK 4 12/26/24 subcutaneous pen injector weeks #2 mL (Mounjaro) Tresiba FlexTouch U-200 200 52 unit (0.26 mL) subcut D AILY 90 01/16/25 unit/mL (3 mL) subcutaneous pen days #25 mL (insulin degludec) blood-glucose sensor (FreeStyle #2 ea 01/16/25 Jody 3 Plus Sensor device) docusate sodium 100 mg capsule 100 mg PO BID #60 caps 01/23/25 linaclotide 290 mcg capsule 290 mcg PO QAM #30 caps (Linzess) magnesium hydroxide 400 mg/5 mL 20 ml PO BEDTIME PRN c onstipation 01/23/25 oral suspension (Milk of Magnesia) #3,780 mL metoclopramide HCl 10 mg tablet 10 mg PO TID #90 tabs 01/23/25 (Reglan) simethicone 180 mg capsule 180 mg PO TID #90 caps 01/12 10/08 acetaminophen 325 mg capsule 650 mg (2 x 325 mg) PO Q4 H PRN 01/26/25 pain #30 caps cyclobenzaprine 10 mg tablet 10 mg PO TID PRN muscle s pasm #12 01/26/25 tabs empagliflozin 25 mg tablet 25 mg PO QAM #30 tabs 01/27 (Jardiance) ibuprofen 800 mg tablet 800 mg PO Q8H PRN for pain 3 0 days 01/27/25 #90 tabs pen needle, diabetic 29 gauge x #100 ea 01/27/25 1/2 methylcellulose (laxative) 500 mg 1,000 mg (2 x 500 mg ) PO TID #180 01/30/25 tablet (Fiber Therapy tabs (methylcellulose)) metformin 500 mg tablet 1,000 mg (2 x 500 mg) PO BID 90 01/31/25 days #360 tabs polyethylene glycol 3350 17 17 g PO DAILY #510 grams 0 02/05/25 gram/dose oral powder (Miralax) Allergies Allergy/AdvReac Type Severity Reaction Status Date / Time No Known Allergies (No Known Allergy Verified 02/05/25 17:49 Allergies*) Review of Systems Review of Systems: Yes all other systems are reviewed and are negative [facility] Past Medical History Medical History Impacted cerumen, right ear Acute diarrhea Pain in both feet Calcaneal spur of right foot Achilles tendinitis Callus of foot Right hand pain Abdominal bloating Vertigo Calcaneal spur Colon cancer screening COVID-19 Pre-op examination Elevated LFTs Encounter for Medicare annual wellness exam Bowel obstruction Melena Knee pain, bilateral Gastroenteritis Healed wound Chronic idiopathic constipation Chronic idiopathic constipation Hospital discharge follow-up Knee osteoarthritis Obesity (BMI 30-39.9) Schizoaffective disorder Pure hypercholesterolemia Benign essential hypertension Chronic kidney disease (CKD), stage III (moderate) Type 2 diabetes mellitus with diabetic chronic kidney disease Morbid obesity Dyslipidemia 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 mellitus 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 Diabetic polyneuropathy associated with 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 mellitus Schizo affective schizophrenia Diabetes type 2, uncontrolled Surgical History History of repair of congenital cleft palate Hx of circumcision Family History Family History Father HTN (hypertension) Mother Diabetes Other Mental health problem Social History Social History Household Members: None Housing: Apartment Are you a primary neurocritical care physician to a significant other at home: No Do you presently have visiting nurse or other home services: Yes Alcohol intake: former Patient Tobacco Use Status: Former Tobacco user Tobacco use type: Cigarette Cigarettes Per Day: 15 Years Smoked: 8 quit 30 years ago e-Cigarette/Vaping Use: Never Used Second Hand Smoke Exposure: No Advance Directives: No Advance Directives Information Provided: No service: No Current occupational status: employed Current occupation: [employer] Cognitive needs: No Hearing needs: No Vision needs: Yes (glasses) Physical Exam ED Vital Signs: Vital Signs - 24 hr 02/05/25 17:47 02/05/25 19:21 02/05/25 21:55 Temperature 97.8 F 98 F 97.9 F Pulse Rate 89 88 79 Respiratory Rate 16 18 18 Blood Pressure 106/70 118/72 113/80 Pulse Oximetry 98 98 96 Oxygen Delivery Method Room Air Room Air Room Air 02/05/25 22:10 Temperature 97.9 F Pulse Rate 79 Respiratory Rate 18 Blood Pressure 113/80 Pulse Oximetry 96 Oxygen Delivery Method Room Air BMI result Body Mass Index 37.1 Appearance: Alert. Oriented X3. No acute distress. Eyes: No pallor or icterus ENT: Pharynx normal. Oral Mucosa moist Neck: Normal inspection. Neck supple. CVS: Normal heart rate and rhythm. Pulses normal. Respiratory: No respiratory distress. Equal air entry bilateral, no wheezing/rales/rhonchi Abdomen: Soft and nontender. Bowel sounds are present, no mass palpable, no CVA tenderness rectum hard stool no obstruction Skin: Skin warm and dry. Normal skin color. Normal skin turgor. Extremities: No lower extremity edema. No calf tenderness Neuro: Oriented X 3. No motor deficit. No sensory deficit.No cerebellar signs , cranial nerves II-XII intact Course Course Course Narrative: This is an RME: Additional HPI, ROS, PE not included below will be deferred to primary provider. RME assessment and note performed by: Eden Mcpherson PA-C Patient is a 64-year-old male with history of T2DM, chronic idiopathic constipation, schizoaffective disorder, CKD III presenting with constipation for the past week. Has been using MOM, last night had liquid stool, but no formed BMs. Denies nausea, vomiting. Plan: KUB, labs Medications Administered Discontinued Medications Generic Name Dose Route Start Last Admin Trade Name Freq PRN Reason Stop Dose Admin Bisacodyl 10 mg 02/05/25 19:44 02/05/25 19:52 Bisacodyl 5 Mg Tablet.Dr KUNZ 02/05/25 19:45 10 mg ONCE ONE Administration Magnesium Hydroxide 30 ml 02/05/25 19:44 02/05/25 19:52 Milk Of Magnesia 30 Ml Oral.Susp PO 02/05/25 19:45 30 ml NOW STA Administration Medical Decision Making Medical Decision Making MDM Narrative: Patient with chronic constipation responded to soapsuds enema and had a big bowel movement in the ER feeling much better will discharge patient home advised to take MiraLax daily Independent Interpretation I performed an independent interpretation of an: Plain X-Ray Radiology Impression Discussion of test interpretation with radiology: I have reviewed the radiologist's reading. Discharge Plan Discharge Clinical Impression: Chronic idiopathic constipation Patient Disposition: Home, Self-Care Instructions: Constipation (ED) Additional Instructions: Drink plenty of fluids Have increased fibers in food Continue to use your MiraLax daily Prescriptions: New polyethylene glycol 3350 [Miralax] 17 gram/dose powder 17 g PO DAILY Qty: 510 0RF No Action (DME) blood-glucose meter [FreeStyle Lite Meter] Kit See Rx Instructions .Route Qty: 1 5RF Rx Instructions: Tests 4 X/day cholecalciferol (vitamin D3) 25 mcg (1,000 unit) capsule 25 mcg PO DAILY Qty: 90 12RF bisacodyl 5 mg tablet,delayed release (DR/EC) 10 mg PO BID Qty: 90 0RF (DME) lancets [FreeStyle Lancets] 28 gauge misc See Rx Instructions .Route Qty: 100 4RF Rx Instructions: Tests 5x/day (DME) FreeStyle Lite Strips Strip See Rx Instructions .Route Qty: 100 5RF Rx Instructions: Tests 5X/day glycerin (adult) Suppository 2 supp RI .after shower Qty: 25 6RF (DME) blood-glucose meter [FreeStyle Lite Meter] Kit See Rx Instructions .ROUTE .MEDSUPPLY Qty: 1 0RF Rx Instructions: As directed (DME) FreeStyle Jody 3 Cody Misc See Rx Instructions .ROUTE .MEDSUPPLY Qty: 1 0RF Rx Instructions: As directed for use with freestyle jody 3+ sensor gabapentin 300 mg capsule 300 mg PO BEDTIME 90 Days Qty: 90 1RF furosemide 20 mg tablet 20 mg PO DAILY Qty: 90 1RF atorvastatin 10 mg tablet 10 mg PO DAILY Qty: 90 0RF (DME) pen needle, diabetic 29 gauge x 1/2 needle See Rx Instructions .ROUTE DAILY Qty: 100 3RF Rx Instructions: As directed daily Jardiance 25 mg tablet 25 mg PO QAM Qty: 30 3RF ibuprofen 800 mg tablet 800 mg PO Q8H PRN (Reason: for pain) 30 Days Qty: 90 0RF Rx Instructions: take with food Fiber Therapy (m-cellulose) 500 mg tablet 1,000 mg PO TID Qty: 180 6RF metformin 500 mg tablet 1,000 mg PO BID 90 Days Qty: 360 1RF benztropine 0.5 mg tablet 0.5 mg PO BID acetaminophen 325 mg capsule 650 mg PO Q4H PRN (Reason: pain) Qty: 30 0RF cyclobenzaprine 10 mg tablet 10 mg PO TID PRN (Reason: muscle spasm) Qty: 12 0RF ketoconazole 2 % cream 1 appl topical DAILY Qty: 30 0RF acetaminophen 500 mg tablet 1,000 mg PO Q6H PRN (Reason: pain) Qty: 30 0RF lidocaine 5 % adhesive patch,medicated 1 patch topical DAILY Qty: 15 0RF Rx Instructions: leave on most painful area for up to 12 hrs clozapine 100 mg tablet 100 mg PO TID sildenafil 50 mg tablet 50 mg PO DAILY PRN (Reason: sexual activity) Qty: 10 0RF Rx Instructions: administer 30 minutes to 4 hours before activity docusate sodium 100 mg capsule 100 mg PO BID Qty: 60 6RF Linzess 290 mcg capsule 290 mcg PO QAM Qty: 30 6RF magnesium hydroxide [Milk of Magnesia] 400 mg/5 mL suspension 20 ml PO BEDTIME PRN (Reason: constipation) Qty: 3780 6RF metoclopramide HCl [Reglan] 10 mg tablet 10 mg PO TID Qty: 90 0RF simethicone 180 mg capsule 180 mg PO TID Qty: 90 6RF Wart Remover 17 % liquid 1 appl topical .every 2 weeks Qty: 9 0RF Rx Instructions: Apply to wart only, repeat in 2 weeks if no improvement. Do not use more than 4 treatments. cyclobenzaprine 10 mg tablet 10 mg PO DAILY PRN (Reason: muscle spasm) Qty: 10 0RF insulin lispro [Humalog KwikPen Insulin] 100 unit/mL insulin pen 8 unit subcut DAILY 30 Days Qty: 3 6RF Rx Instructions: with the largest meal of the day Mounjaro 2.5 mg/0.5 mL pen injector 2.5 mg subcut QWEEK 28 Days Qty: 2 11RF (DME) FreeStyle Jody 3 Plus Sensor Device See Rx Instructions .ROUTE .MEDSUPPLY Qty: 2 11RF Rx Instructions: every 15 days for continuous use Tresiba FlexTouch U-200 200 unit/mL (3 mL) insulin pen 52 unit subcut DAILY 90 Days Qty: 25 3RF guaifenesin 200 mg/5 mL liquid 400 mg PO Q6H PRN (Reason: cough) Qty: 118 0RF Interventions: ED Discharge Assessment Last Done: 02/05/25 22:10 Discharge Date/Time: 02/05/25 22:24 Print Language: Estonian
[2025-02-05 17:47] VITALS: BP 106/70; PULSE 89; RESP 16; TEMP 36.6; O2SAT 98; BMI 37.1
--- OUTSIDE RECORDS SUMMARY | 2025-02-05 19:00 | XMS_ITS | Patient Health Record ---
[facility] Organization [facility] [place] Address [address] [place] [address] Care Team Providers Care Naprapath Name Role Phone Jose RENAE, Luis Manuel Primary Care Provider UnaTu Paul Unavailable [phone] Allergies No Known Allergies Results Component Value [...] Problem Acquired hammer toe of right foot (565244638734549 5) Other hammer toe(s) (acquired), right foot (M20.41) Active confirmed Problem Plantar fascial fibromatosis (57127943) Plantar fascial fibromatosis (M72.2) Active confirmed Problem Acquired hammer toe of left foot (509855622848496 3) Other hammer toe(s) (acquired), left foot (M20.42) Active confirmed Problem Type 2 diabetes mellitus without complication (986327176) Type 2 diabetes mellitus without complication (E11.9) Active confirmed Vital Signs Blood pressure diastolic 80 mm Hg 08/30/2024 Height 6ft in 08/30/2024 Blood pressure systolic 130 mm Hg 08/30/2024 Weight 270 lbs 08/30/2024 BMI 36.61 kg/m2 08/30/2024 Procedures Procedure Date Ordered Date Performed Result Body Sit e 85037-FSSSUYG NAIL, 6 OR MORE 03/08/2024 N/A 96816-Ddcslafb Plate 03/08/2024 N/A 09081-FDBW SKIN LESIONS, 2 TO 4 03/08/2024 N/A 93155-YCAYGWT NAIL, 6 OR MORE 06/21/2024 N/A 38469-EOBY SKIN LESIONS, 2 TO 4 06/21/2024 N/A 85488-JBUNEJZ NAIL, 6 OR MORE 08/30/2024 N/A 95042-HXRW SKIN LESIONS, 2 TO 4 08/30/2024 N/A Encounters Encounter Location Date Provider Diagnosis [facility] [place] [address] [place] [address] 03/08/2024 Tu Pierre Tinea unguium B35.1 ; [...] without complication E11.9 and Ingrown nail L60.[address] [address] 06/21/2024 Tu Pierre Tinea unguium B35.1 ; Pain in right toe(s) M79.674 ; Pain in left toe(s) M79.675 ; Achilles tendinitis of right lower extremity M76.61 and Type 2 diabetes mellitus without complication E11.[address] [facility] [address] 08/30/2024 Tuwilliam Pierre Pain in right toe(s) M79.674 ; Tinea unguium B35.1 ; Pain in left toe(s) M79.675 ; Type 2 diabetes mellitus without complication E11.9 ; Other hammer toe(s) (acquired), right foot M20.41 and Other hammer toe(s) (acquired), left foot M20.[address] [address] 04/17/2024 Tu Pierre [address] [address] 09/03/2024 Tu Pierre [address] [address] 10/01/2024 Tu Pierre [address] [address] 12/06/2024 Tu Pierre Plantar fascial fibromatosis M72.2 [...] X ray : Foot, right 3V 03/08/2024 31525-CRIVOBU NAIL, 6 OR MORE 03/08/2024 30732-ANJRSEB NAIL, 6 OR MORE 06/21/2024 09753-EGAEACV NAIL, 6 OR MORE 08/30/2024 45356-Tmdxoglt Plate 03/08/2024 38541-UEVF SKIN LESIONS, 2 TO 4 03/08/20 24 06358-IVUE SKIN LESIONS, 2 TO 4 08/30/19 12768-QEOR SKIN LESIONS, 2 TO 4 06/21/20 Insurance Providers Payer Name Payer Address Payer Phone Subscriber Number Group Number Insured Name Patient Relationship to Insured Coverage Start Date Coverage End Date [facility] [employer] Claims [address] [place] [phone] [id number] Mike Cornejo Self - patient is the insured Medical (General) History Medical History History ICD Code Diabetic Surgical History Surgery Date(Month/Year)
[2025-02-05 19:21] VITALS: BP 118/72; PULSE 88; RESP 18; TEMP 36.6; O2SAT 98
[2025-02-05] MEDS: bisacodyL 5 MG TABLET.DR 10 MG PO (19:52)
[2025-02-05] MEDS: Milk of Magnesia 30 ML ORAL.SUSP PO (19:52)
--- NOTE | 2025-02-05 20:57 | PC.NURSE ---
soap suds enema given, 1250mls. pt tolerated well. pt instructed to hold as long as he can before going to the bathroom. commode at bedside, call luh w/in reach
--- NOTE | 2025-02-05 21:23 | PC.NURSE ---
enema was successful. large BM in commode. aware
[2025-02-05 21:55] VITALS: BP 113/80; PULSE 79; RESP 18; TEMP 36.6; O2SAT 96
[2025-02-05 22:10] VITALS: BP 113/80; PULSE 79; RESP 18; TEMP 36.6; O2SAT 96
== END 2025-02-05 22:24 | disposition home or self-care (01) ==
PROVIDERS: Emergency Provider Internal Medicine; PCP Internal Medicine
DX: K59.09 Other constipation (principal); R14.0 Abdominal distension (gaseous); E11.9 Type 2 diabetes mellitus without complications; Z79.4 Long term (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; Z79.899 Other long term (current) drug therapy; Z87.891 Personal history of nicotine dependence; Z79.84 Long term (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 of oral hypoglycemic drugs
CPT/HCPCS: 74018; 99283; 99284

== ENCOUNTER → 2025-02-05 17:48 | Outpatient (BNV) | payer OTHER, SELFPAY | PROVIDERS: PCP Internal Medicine; Visit Provider Specialist | DX: K56.41 Fecal impaction (principal); R14.0 Abdominal distension (gaseous) | CPT/HCPCS: 74018 ==

== ENCOUNTER 2025-02-06 12:47 | Outpatient (AMB) | payer OTHER, SELFPAY ==
--- NOTE | 2025-02-06 12:51 | A.OFFVIS_ITS ---
Vital Signs 02/06/25 12:53 Height 6 ft 1 in Weight 277 lb 12.519 oz BMI 36.6 BP 116/78 Blood Pressure Location Rt brachial Position Sitting Pulse 84 Pulse Source Pulse Oximeter Pulse Oximetry (%) 96 Oxygen Delivery Method Room Air Intake Visit Reasons: T2DM Intake Note: Patient presents today for a follow-up for Type 2 Diabetes Mellitus: Last Diabetic eye exam was on: 08/08/2024, [place] [facility]. Last Podiatry exam was on: 08/30/2024, [facility] Most recent HbA1c: 7.0%, 02/06/2025 Random Glucose- 157 mg/dL, Today Chairperson Anesthesiology Required: No Accompanied by: Self / Same As Patient Allergies No Known Allergies (No Known Allergies*) Allergy (Verified 02/06/25 12:53) HPI Comments Details: Patient is a 64-year-old male with DM type 2 diagnosed in 1990 who presents for f/u. He was last seen 01/16/2025 Hgb A1C 02/06/2025 7 % 10/31/24 7.8% He has hypoglycemia unawareness and limited insight into his diabetes. 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 None on current monitor Hyperglycemia: occasional urinary frequency, + nocturia 3-5x, +polydypsia Diet: Breakfast: coffee and egg sandwich Lunch: hamburger Dinner: turkey, cheese sandwich with macaroni salad, diet soda , Snacks: banana or 0 sugar candy , Drinks throughout day: water, coffee Exercise: works at [employer] 16-18 hours a week. Frequently walks Followed by GI medicine for idiopathic constipation [facility] Medical History Impacted cerumen, right ear Acute diarrhea Pain in both feet Calcaneal spur of right foot Achilles tendinitis Callus of foot Right hand pain Abdominal bloating Vertigo Calcaneal spur Colon cancer screening COVID-19 Pre-op examination Elevated LFTs Encounter for Medicare annual wellness exam Bowel obstruction Melena Knee pain, bilateral Gastroenteritis Healed wound Chronic idiopathic constipation Chronic idiopathic constipation Hospital discharge follow-up Knee osteoarthritis Obesity (BMI 30-39.9) Schizoaffective disorder Pure hypercholesterolemia Benign essential hypertension Chronic kidney disease (CKD), stage III (moderate) Type 2 diabetes mellitus with diabetic chronic kidney disease Morbid obesity Dyslipidemia 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 mellitus 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 Diabetic polyneuropathy associated with 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 mellitus Schizo affective schizophrenia Diabetes type 2, uncontrolled Surgical History History of repair of congenital cleft palate Hx of circumcision Family History Father HTN (hypertension) Mother Diabetes Other Mental health problem Social History Household Members: None Housing: Apartment Are you a primary cattle care worker to a significant other at home: No Do you presently have visiting nurse or other home services: Yes Alcohol intake: former Patient Tobacco Use Status: Former Tobacco user Tobacco use type: Cigarette Cigarettes Per Day: 15 Years Smoked: 8 quit 30 years ago e-Cigarette/Vaping Use: Never Used Second Hand Smoke Exposure: No service: No Current occupational status: employed Current occupation: [employer] Cognitive needs: No Hearing needs: No Vision needs: Yes (glasses) Physical Exam Vital Signs: Last Vital Signs Pulse 84 02/06/25 12:53 BP 116/78 02/06/25 12:53 Pulse Ox 96 02/06/25 12:53 Oxygen Delivery Method Room Air 02/06/25 12:53 BMI result Body Mass Index 36.6 Const Other: Absence of Cushingoid features. Absence of acromegalic features. Neck exam reveals nl size thyroid about 15 gms. No thyroid nodules palpable. Heart S1 S2, Reg R/R. No M/R G. Skin exam reveals absence of vitiligo or acanthosis nigricans. No edema Visual exam of foot performed. No ulcerations or open lesions. No inter digit maceration or fissuring. + onychomycosis nail beds, several nails elongated no callouses. Sensation diminished to monofilament exam. Vibratory sensation is absent with 128 Hz tuning fork. pulse positve Office Procedures Glucose Monitoring Details Details: see hpi 08818 - Glucose monitoring, continuous-physician I&R Procedure code (CPT) selection complete Results AMB Hemoglobin A1c AMB Hemoglobin A1c 7.0 % Last Edit by VALENTINO Londono on 02/06/25 13:09 Results Reviewed Results Reviewed: Laboratory Last Values Hgb A1c (Clinic) 7.0 % (4.0-6.0) H 02/06/25 13:08 Assessment & Plan Assessment & Plan (1) Type 2 diabetes mellitus with diabetic chronic kidney disease: Code(s): E11.22 - Type 2 diabetes mellitus with diabetic chronic kidney disease Category: Medical Qualifiers: Chronic kidney disease stage: stage 3 (moderate) Chronic kidney disease stage 3 subtype: unspecified whether 3a or 3b Diabetes mellitus prison insulin use: with long distance billing 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 He does have a history of hypoglycemia unawareness and does wear his sensor consistently. He has limited insight into his diabetes. It is recommended when he comes to clinic that his instructions on when to call the office or ER are again written out on an insulin adjustment sheet. Without these directions he tends to call the office on necessarily. Patient instructions: If you have more than 1 sugar less than 60 call the office If your 7 day average is over 250 call the office If your blood sugar is over 300 for more than 3 hours call the office or go to the emergency room if we are not open. Keep herself well hydrated Stopped Mounjaro due to constipation. He has chronic idiopathic constipation which he initially had reported as no increase but I think the risk of a a bowel obstruction due to constipation is too great with this patient Continue Jardiance 10 mg Tresiba 52 units daily 12 units of Humalog with the biggest meal of the day Orders: Orders AMB Glucose Monitoring Today E11.22 - Type 2 diabetes mellitus with diabetic chronic kidney disease, N18.30 - Chronic kidney disease, stage 3 unspecified, Z79.4 - MCC (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 AMB Hemoglobin A1c Today E11.22 - Type 2 diabetes mellitus with diabetic chronic kidney disease, N18.30 - Chronic kidney disease, stage 3 unspecified, Z79.4 - 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 Break in shoes gradually and do not wear open-toed shoes or walk stocking footed or barefooted. He was counseled given his neuropathy is at greater risk for development of the foot ulcer. He was asked to schedule as a routine podiatry appointment as he is overdue. Carry a sugar source Coding Level of Care Code Est Pt Level 4 (80607) Complex EM visit Add On G2211 Diagnoses Type 2 diabetes mellitus with stage 3 chronic kidney disease, with long-term current use of insulin, unspecified whether stage 3a or 3b CKD E11.22; N18.30; Z79.4 Chronic kidney disease stage: stage 3 (moderate) Chronic kidney disease stage 3 subtype: unspecified whether 3a or 3b Diabetes mellitus prison insulin use: with prison use CPT Codes Details - CPT: 45479 - Glucose monitoring, continuous-physician I&R ([id number]) Time Spent (min) 30 Comment Time spent reviewing labs/provider notes, face to face, chart doc
[2025-02-06 12:53] VITALS: BP 116/78; PULSE 84; O2SAT 96; BMI 36.6
[2025-02-06 14:10] LABS: Glucose, Whole Blood 157 mg/dL (60-115)
--- OUTSIDE RECORDS SUMMARY | 2025-02-06 15:13 | XMS_ITS | Patient Health Record ---
[facility] Address [address] [place] [address] Care Team Providers Care Supply Chain Coordinator Name Role Phone Jose RENAE, Luis Manuel Primary Care Provider Unava Tu Frederick Unavailable [phone] Allergies No Known Allergies Results Component Value [...] (L85.1) 08/30/2024 Active hydrOXYzine Pamoate 25 MG Oral; Duration: 30 Days Active Metoclopramide HCl 10 MG TAKE 1 TABLET B Y MOUTH THREE TIMES DAILY Oral; Duration: 30 Days Active FreeStyle Lite Test - USE TO TEST 5 TIME S A DAY In Vitro; Duration: 20 Days Active Benztropine Mesylate 0.5 MG Oral; Duration: 30 Days Active Tresiba FlexTouch 200 UNIT/ML Subcutaneous; Duration: 56 Days Active Night Splint AFO - L1930 1 wear when at rest; Duration: 30 days Active Social History Tobacco Use: [...] Problem Acquired hammer toe of right foot (439272084452328 5) Other hammer toe(s) (acquired), right foot (M20.41) Active confirmed Problem Plantar fascial fibromatosis (33800246) Plantar fascial fibromatosis (M72.2) Active confirmed Problem Acquired hammer toe of left foot (794523339021509 3) Other hammer toe(s) (acquired), left foot (M20.42) Active confirmed Problem Type II diabetes mellitus without complication (717072388) Type 2 diabetes mellitus without complication (E11.9) Active confirmed Vital Signs Blood pressure diastolic 80 mm Hg 08/30/2024 Height 6ft in 08/30/2024 Blood pressure systolic 130 mm Hg 08/30/2024 Weight 270 lbs 08/30/2024 BMI 36.61 kg/m2 08/30/2024 Procedures Procedure Date Ordered Date Performed Result Body Sit e 14429-SYAEDVX NAIL, 6 OR MORE 03/08/2024 N/A 18643-Hyadnbez Plate 03/08/2024 N/A 78815-FLFF SKIN LESIONS, 2 TO 4 03/08/2024 N/A 38458-GOELPDA NAIL, 6 OR MORE 06/21/2024 N/A 30881-BZEO SKIN LESIONS, 2 TO 4 06/21/2024 N/A 83388-YIQLKTH NAIL, 6 OR MORE 08/30/2024 N/A 66235-BBZP SKIN LESIONS, 2 TO 4 08/30/2024 N/A Encounters Encounter Location Date Provider Diagnosis [facility] [place] [address] [place] [address] 03/08/2024 Tu Pierre Tinea unguium B35.1 ; [...] complication E11.9 and Ingrown nail L60.[address] [address] 06/21/2024 Tu Pierre Tinea unguium B35.1 ; Pain in right toe(s) M79.674 ; Pain in left toe(s) M79.675 ; Achilles tendinitis of right lower extremity M76.61 and Type 2 diabetes mellitus without complication E11.9 [facility] [address] 08/30/2024 Tuwilliam Pierre Pain in right toe(s) M79.674 ; Tinea unguium B35.1 ; Pain in left toe(s) M79.675 ; Type 2 diabetes mellitus without complication E11.9 ; Other hammer toe(s) (acquired), right foot M20.41 and Other hammer toe(s) (acquired), left foot M20.[address] [address] 04/17/2024 Tu Pierre [facility] [address] 09/03/2024 Tu Pierre [address] [address] 10/01/2024 Tu Pierre [address] [address] 12/06/2024 Tu Pierre Plantar fascial fibromatosis M72.2 [...] X ray : Foot, right 3V 03/08/2024 38794-QGYOAZY NAIL, 6 OR MORE 03/08/2024 21311-VXTHKFK NAIL, 6 OR MORE 06/21/2024 61638-VLBDGEK NAIL, 6 OR MORE 08/30/2024 63501-Aenmjpqx Plate 03/08/2024 43122-EMYA SKIN LESIONS, 2 TO 4 03/08/20 24 86527-PSMO SKIN LESIONS, 2 TO 4 08/30/19 25 17199-GSUE SKIN LESIONS, 2 TO 4 06/21/20 24 Insurance Providers Payer Name Payer Address Payer Phone Subscriber Number Group Number Insured Name Patient Relationship to Insured Coverage Start Date Coverage End Date [employer] [facility] [employer] Claims [address] [place] [phone] [id number] Mike Cornejo Self - patient is the insured Medical (General) History Medical History History ICD Code Diabetic Surgical History Surgery Date(Month/Year)
== END 2025-02-06 13:18 | disposition home or self-care (01) ==
LOC: HO.ENCR 12:48
PROVIDERS: PCP Internal Medicine; Visit Provider Nurse Practitioner Adult Health
DX: E11.22 Type 2 diabetes mellitus with diabetic chronic kidney disease (principal); N18.30 Chronic kidney disease, stage 3 unspecified; Z79.4 Long term (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
CPT/HCPCS: 95251; 99214

== ENCOUNTER → 2025-02-06 12:47 | Outpatient (BNVA) | payer OTHER, SELFPAY | PROVIDERS: PCP Internal Medicine; Visit Provider Nurse Practitioner Adult Health | DX: E11.22 Type 2 diabetes mellitus with diabetic chronic kidney disease (principal); N18.30 Chronic kidney disease, stage 3 unspecified; Z79.4 Long term (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 | CPT/HCPCS: 82947; 83036; 99212 ==

== ENCOUNTER → 2025-02-16 07:59 | Outpatient (BNV) | payer OTHER, SELFPAY | PROVIDERS: PCP Internal Medicine; Visit Provider Radiology Diagnostic Radiology | DX: K56.41 Fecal impaction (principal) | CPT/HCPCS: 74018 ==

== ENCOUNTER 2025-02-16 08:31 | Emergency (ER) | payer OTHER, SELFPAY ==
--- NOTE | ~2025-02-16 | XR_ITS ---
CLINICAL HISTORY: ?constipation ; PT states constipation and stomach pains. 1 view abdomen Comparison: None provided Findings: No pneumoperitoneum or pneumatosis. No abnormal calcifications. No acute fractures. There is a large stool burden particularly in the left colon. There may be fecal impaction in the rectum. IMPRESSION: There is a large stool burden particularly in the left colon. There may be fecal impaction in the rectum. This document has been electronically signed by: Pb Eid MD on 02/16/2025 09:30:32
[2025-02-16 08:41] VITALS: BP 116/79; PULSE 92; RESP 16; TEMP 36.2; O2SAT 100; BMI 36.5
--- NOTE | 2025-02-16 08:55 | ED_ITS ---
HPI - General Adult General Chief complaint: Abdominal Pain Stated complaint: constipation Time Seen by Provider: 02/16/25 08:54 Source: patient Mode of arrival: ambulatory Limitations: no limitations History of Present Illness ED Provider: Jaqui Choi PA-C HPI narrative: Patient is a 64 year old male with past medical history of chronic idiopathic constipation, delayed gastric emptying, DM2 on insulin, obesity, HLD, CKD stage III, and diabetic polyneuropathy presenting to ER on 02/16 with chief complaint of constipation and sore throat. He states his last bowel movement was about 4-5 days ago. His last PO intake was yesterday 02/15. He has been constipated similarly before and had visited this ER previously in 12/2024 for the same issue which was resolved after receiving an enema. He has been having diffuse abdominal pain for the past few days. He denies fevers, chills, vomiting, or diarrhea. He denies genitourinary complaints. He denies noticing recent blood in his stool or black stools. He is also complaining of a sore throat that has been ongoing for the past 2 days, slightly improved with increased water intake. Location: abdomen Relieving factors: none Exacerbating factors: none Associated symptoms: other (Sore throat) Treatments prior to arrival: other (water intake has improved his sore throat) Related Data Home Medications ?Medication ?Instructions ?Recorded ?Confirmed benztropine 0.5 mg tablet 0.5 mg PO BID 04/29/2210/04 clozapine 100 mg tablet 100 mg PO TID 05/12/2210/04 Previous Rx's ?Medication ?Instructions ?Recorded blood-glucose meter (FreeStyle #1 ea 03/27/23 Lite Meter kit) cholecalciferol (vitamin D3) 25 25 mcg PO DAILY #90 ca ps 12/21/23 mcg (1,000 unit) capsule ketoconazole 2 % topical cream 1 appl topical DAILY #3 0 grams 01/01/24 bisacodyl 5 mg tablet,delayed 10 mg (2 x 5 mg) PO BID #90 tabs 01/02/24 release Held on 01/11/24. Instructions: Doctor's Order acetaminophen 500 mg tablet 1,000 mg (2 x 500 mg) PO Q 6H PRN 01/04/24 pain #30 tabs lidocaine 5 % topical patch 1 patch topical DAILY #15 ea 01/04/24 sildenafil 50 mg tablet 50 mg PO DAILY PRN sexual ac tivity 05/03/24 #10 tabs lancets 28 gauge (FreeStyle #100 ea 05/08/24 Lancets) blood sugar diagnostic (FreeStyle #100 ea 06/15/24 Lite Strips) glycerin (adult) 2 supp [place] .after shower 06/14 01/04 constipation #25 ea guaifenesin 200 mg/5 mL oral liquid 400 mg (10 mL) PO Q6H PRN cough 07/01/24 #118 mL blood-glucose meter (FreeStyle #1 ea 07/18/24 Lite Meter kit) blood-glucose,outside medical sales representative,cont #1 ea 10/09/24 (FreeStyle Jody 3 [place]) gabapentin 300 mg capsule 300 mg PO BEDTIME 90 days #9 0 caps 11/01/24 furosemide 20 mg tablet 20 mg PO DAILY #90 tabs 10/14 cyclobenzaprine 10 mg tablet 10 mg PO DAILY PRN muscle spasm 12/10/24 #10 tabs salicylic acid 17 % topical liquid 1 appl topical .doreen ry 2 weeks #9 mL 12/10/24 (Wart Remover) atorvastatin 10 mg tablet 10 mg PO DAILY #90 tabs 11/05 Tresiba FlexTouch U-200 200 52 unit (0.26 mL) subcut D AILY 90 01/16/25 unit/mL (3 mL) subcutaneous pen days #25 mL (insulin degludec) blood-glucose sensor (FreeStyle #2 ea 01/16/25 Jody 3 Plus Sensor device) docusate sodium 100 mg capsule 100 mg PO BID #60 caps 01/23/25 linaclotide 290 mcg capsule 290 mcg PO QAM #30 caps (Linzess) magnesium hydroxide 400 mg/5 mL 20 ml PO BEDTIME PRN c onstipation 01/23/25 oral suspension (Milk of Magnesia) #3,780 mL metoclopramide HCl 10 mg tablet 10 mg PO TID #90 tabs 01/23/25 (Reglan) simethicone 180 mg capsule 180 mg PO TID #90 caps 01/12 10/08 acetaminophen 325 mg capsule 650 mg (2 x 325 mg) PO Q4 H PRN 01/26/25 pain #30 caps cyclobenzaprine 10 mg tablet 10 mg PO TID PRN muscle s pasm #12 01/26/25 tabs empagliflozin 25 mg tablet 25 mg PO QAM #30 tabs 01/27 (Jardiance) ibuprofen 800 mg tablet 800 mg PO Q8H PRN for pain 3 0 days 01/27/25 #90 tabs pen needle, diabetic 29 gauge x #100 ea 01/27/25 1/2 methylcellulose (laxative) 500 mg 1,000 mg (2 x 500 mg ) PO TID #180 01/30/25 tablet (Fiber Therapy tabs (methylcellulose)) metformin 500 mg tablet 1,000 mg (2 x 500 mg) PO BID 90 01/31/25 days #360 tabs polyethylene glycol 3350 17 17 g PO DAILY #510 grams 0 02/05/25 gram/dose oral powder (Miralax) Humalog KwikPen Insulin 100 12 unit (0.12 mL) subcut D AILY 30 02/06/25 unit/mL subcutaneous (insulin days #6 mL lispro) Allergies Allergy/AdvReac Type Severity Reaction Status Date / Time No Known Allergies (No Known Allergy Verified 02/16/25 08:41 Allergies*) Review of Systems 2 Constitutional: Constitutional: Reports no additional constitutional complaints, Denies chills, Denies fever(s) and Denies night sweats Eyes: Eyes: Reports no additional eye complaints, Denies blurry vision, Denies change in vision, Denies diplopia, Denies eye discharge, Denies loss of vision and Denies eye pain ENT: Denies dizziness and Reports sore throat Cardiovascular: Cardiovascular: Reports no additional cardiovascular complaints, Denies chest pain, Denies lightheadedness, Denies Loss of Consciousness and Denies dyspnea Respiratory: Respiratory: Reports no additional respiratory complaints and Denies dyspnea Gastrointestinal: Gastrointestinal: Reports as per HPI, Denies no additional gastrointestinal complaints, Reports abdominal pain, Denies melena, Denies hematochezia, Reports change in bowel habits, Denies change in stool character and Reports constipation Genitourinary: Genitourinary: Reports no additional male genitourinary complaints, Denies hematuria, Denies oliguria, Denies difficulty urinating, Denies dysuria, Denies urinary frequency, Denies urinary hesitancy, Denies urinary incontinence and Denies urinary urgency Musculoskeletal: Musculoskeletal: Reports no additional musculoskeletal complaints, Denies numbness and Denies tingling Neurologic: Denies dizziness, Denies loss of vision, Denies numbness and Denies tingling Psychiatric: Psychiatric: Reports no additional psychiatric complaints Endocrine: Endocrine: Reports no additional endocrine complaints Hematologic/Lymphatic: Hematologic/Lymphatic: Reports no additional hematologic/lymphatic complaints Allergic/Immunologic: Allergic/Immunologic: Reports no additional allergic/immunologic complaints [facility] Past Medical History Attestation statement: The following information was validated with the patient. Source: old records reviewed and nursing notes reviewed Medical History Impacted cerumen, right ear Acute diarrhea Pain in both feet Calcaneal spur of right foot Achilles tendinitis Callus of foot Right hand pain Abdominal bloating Vertigo Calcaneal spur Colon cancer screening COVID-19 Pre-op examination Elevated LFTs Encounter for Medicare annual wellness exam Bowel obstruction Melena Knee pain, bilateral Gastroenteritis Healed wound Chronic idiopathic constipation Chronic idiopathic constipation Hospital discharge follow-up Knee osteoarthritis Obesity (BMI 30-39.9) Schizoaffective disorder Pure hypercholesterolemia Benign essential hypertension Chronic kidney disease (CKD), stage III (moderate) Type 2 diabetes mellitus with diabetic chronic kidney disease Morbid obesity Dyslipidemia 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 mellitus FCI (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 Diabetic polyneuropathy associated with 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 mellitus Schizo affective schizophrenia Diabetes type 2, uncontrolled Surgical History History of repair of congenital cleft palate Hx of circumcision Family History Family History Father HTN (hypertension) Mother Diabetes Other Mental health problem Social History Social History Household Members: None Housing: Apartment Are you a primary home care scheduler to a significant other at home: No Do you presently have visiting nurse or other home services: Yes Alcohol intake: former Patient Tobacco Use Status: Former Tobacco user Tobacco use type: Cigarette Cigarettes Per Day: 15 Years Smoked: 8 quit 30 years ago Smoked in Last 30 Days: No e-Cigarette/Vaping Use: Never Used Second Hand Smoke Exposure: No Use of substances other than those prescribed or required for medical reasons: No Advance Directives: No Advance Directives Information Provided: No Do you have a plan to hurt others: No Plan service: No Current occupational status: employed Current occupation: [employer] Cognitive needs: No Hearing needs: No Vision needs: Yes (glasses) Physical Exam ED Vital Signs: Vital Signs - 24 hr 02/16/25 08:41 02/16/25 10:27 02/16/25 11:33 Temperature 97.2 F 97.6 F 97.6 F Pulse Rate 92 85 85 Respiratory Rate 16 18 18 Blood Pressure 116/79 104/70 104/70 Pulse Oximetry 100 98 98 Oxygen Delivery Method Room Air Room Air Room Air BMI result Body Mass Index 36.5 Const General: cooperative, no acute distress, alert and awake Nutritional Appearance: well nourished Orientation/consciousness: patient oriented x3 HENMT Head: Yes normal to inspection and Yes atraumatic Ears: hearing grossly normal bilaterally and external ears normal General nose exam: Normal external nose present, no nasal discharge noted and no epistaxis Face and sinus: Yes normal facial exam, No abrasion and No laceration Mouth: Normal oral and palatal mucosa present, no drooling and no muffled voice Eyes General: appearance normal, both eyes and all related structures Periorbital: periorbital findings normal Eyelids: Yes eyelids normal Conjunctivae: conjunctivae normal Pupils: Equal, round and reactive pupils present EOM: EOMs intact bilaterally Neck Neck: Yes normal visual inspection, Yes full ROM and Yes no lymphadenopathy Resp Effort & Inspection: normal respiratory effort and able to speak in complete sentences GI Palpation (GI): Soft to palpation, not firm, nontender, no guarding and not rigid Neuro General: patient oriented x3, moves all extremities and CN's II-XI intact bilaterally Cranial nerves: Yes Equal, round and reactive pupils present Cognition (Neuro): normal cognition Extrem General: Yes normal to inspection, Yes full ROM and Yes capillary refill normal Psych Appearance: grossly normal Mental Status: mental status grossly normal Affect: normal affect Attitude: cooperative Thought process: Normal thought process present Thought content: Normal thought content present Insight: Good insight present (Psych) Medical Decision Making Medical Decision Making MDM Narrative: Patient is a 64 year old assigned male at with a history of chronic idiopathic constipation, delayed gastric emptying, DM2 on insulin, obesity, HLD, CKD stage III, and diabetic polyneuropathy presenting to the emergency department today with constipation. Patient's physical exam was unremarkable. Patient's blood work was unremarkable and consistent with his baseline. Patient's KUB x-ray showed a large stool burden in the left colon with possible impaction in the rectum. I explained my physical exam findings as well as all test results to the patient. I answered all questions asked by the patient. Patient received a soap suds enema which, upon re-evaluation, he stated it helped his symptoms significantly after he had a fairly large bowel movement. I stressed the importance of the patient taking his medication as directed (either prescribed or as the over the counter packaging recommends). I stressed the importance of the patient following up with his primary care provider. I stressed the importance of the patient returning to the emergency department immediately if his symptoms were to worsen or if he were to develop any dizziness, shortness of breath, difficulty breathing, chest pain, blurry vision, loss of vision, nausea, vomiting, abdominal pain, fever, chills, back pain, or any other complaints. Patient verbalized agreement and understanding with this treatment plan and discharge. Differential Diagnosis Differential Diagnoses: The differential diagnosis associated with the presentation includes Constipation Pharyngitis Dry throat Admission/Observation Consideration of admission/observation: Escalation of care including admission/observation considered Patient would have been admitted to the hospital had his work up had any findings where hospital admission was appropriate and his clinical presentation warranted hospital admission. Lab Data [facility] Lab Attestation statement: I reviewed the patient's lab results. My interpretation of these results are in the [facility] Rationale portion of this note. 02/16/25 09:16 02/16/25 09:16 Labs: Lab Results 02/16/25 Range/Units 09:16 WBC 7.8 (4.8-10.8) X10*3/uL RBC 5.04 (4.60-5.80) X10*6/uL Hgb 15.1 (14.0-18.0) g/dl Hct 42.1 (42.0-52.0) % MCV 83.5 (80.0-98.0) fL MCH 30.0 (27.0-33.0) pg MCHC 35.9 (31.0-36.0) g/dl RDW 12.9 (11.0-16.0) % Plt Count 117 L (160-400) X10*3/uL MPV 10.0 (9.4-12.4) fL Immature Gran % (Auto) 0.5 H (0.0-0.4) % Neut % (Auto) 78.3 H (45-73) % Lymph % (Auto) 14.2 L (20-40) % Dolores % (Auto) 7.0 (2-11) % Eos % (Auto) 0.0 (0-4) % Baso % (Auto) 0.0 (0-2) % Lymph # (Auto) 1.1 L (1.2-4.9) X10*3/uL Dolores # (Auto) 0.5 (0.1-1.2) X10*3/uL Eos # (Auto) 0.0 (0.0-0.4) X10*3/uL Baso # (Auto) 0.0 (0.0-0.2) X10*3/uL Abs Immat Gran (auto) 0.04 H (0.00-0.03) X10*3/uL Absolute Neuts (auto) 6.1 (2.0-8.3) x10*3/uL Absolute Nucleated RBC 0.000 (0.0-0.012) X10*3/uL Nucleated RBC % (auto) 0.0 (0.0-0.2) /100WBC Sodium 139 (135-145) mmol/L Potassium 3.8 (3.3-5.1) mmol/L Chloride 109 H (96-108) mmol/L Carbon Dioxide 19 L (22-29) mmol/L Anion Gap 15 (12-20) BUN 26 H (9-16) mg/dL Creatinine 1.13 (0.5-1.4) mg/dL Estim Creat Clear Calc 94.1 Estimated GFR > 60 Random Glucose 262 H (60-115) mg/dL Calcium 9.2 (8.4-10.2) mg/dL Total Bilirubin 0.4 (0.0-1.0) mg/dL AST 34 (5-37) U/L ALT 72 H (0-40) U/L Alkaline Phosphatase 192 H (39-117) U/L Total Protein 7.4 (6.5-8.0) g/dL Albumin 4.4 (3.5-5.0) g/dL Influenza Type A (PCR) NEGATIVE (Negative) Influenza Type B (PCR) NEGATIVE (Negative) RSV RNA Qual (PCR) NEGATIVE (Negative) SARS-CoV-2 RNA (RT-PCR) NEGATIVE (Negative) S. pyogenes GrpA STAR Negative (Negative) Independent Interpretation I performed an independent interpretation of an: Plain X-Ray Interpretation: My interpretation is in agreement with the radiologist's impression of this imaging study. L CLINICAL HISTORY: ?constipation ; PT states constipation and stomach pains. 1 view abdomen Comparison: None provided Findings: No pneumoperitoneum or pneumatosis. No abnormal calcifications. No acute fractures. There is a large stool burden particularly in the left colon. There may be fecal impaction in the rectum. IMPRESSION: There is a large stool burden particularly in the left colon. There may be fecal impaction in the rectum. This document has been electronically signed by: Pb Eid MD on 02/16/2025 09:30:32 Dictated By: Pb Eid MD Signed By: Electronically signed by Pb Eid MD 02/16/25 0931 Radiology Impression Discussion of test interpretation with radiology: I have reviewed the radiologist's reading. Tests considered The following testing was considered but not selected: I considered obtaining a CT scan of the abdomen/pelvis however, the patient's current clinical presentation and work up did not warrant this. I discussed this with the patient who verbalized understanding and agreement. Discharge Plan Discharge Clinical Impression: Constipation, Pharyngitis Patient Disposition: Home, Self-Care Instructions: Constipation (DC), Pharyngitis (ED) Additional Instructions: Follow up with your primary care provider. Return to the emergency department immediately if your symptoms worsen or if you develop any numbness, tingling, dizziness, shortness of breath, difficulty breathing, chest pain, blurry vision, loss of vision, nausea, vomiting, abdominal pain, fever, chills, back pain, or any other complaints. Please see the information below about our Patient Portal. If you are not yet enrolled in the [facility] Patient Portal, you will receive an enrollment email invitation following your visit to any [facility] care setting. You may also self-enroll in the Patient Portal by visiting our website: [email or web address] The following information is required to access the Patient Portal: - Your [facility] Medical Record Number - Your personal home email address (must match what is in your electronic medical record, Registration staff can assist with this) - Name - Date of Capabilities of the Patient Portal: - Message some providers - View upcoming appointments - Access your health summary, medical history, and visit history - View current conditions and allergies - View procedure and lab results - View your medications, including guidelines, side effects, and precautions - Complete pre-appointment questionnaires requested by your provider - Ready summary reports of your office visits and procedures To access the Patient Portal Mobile [employer], follow these directions: - Search [employer] in the [employer] Store or [email or web address] Store - Download the [employer] - Search for [facility] - Enter your login/password Prescriptions: No Action (DME) blood-glucose meter [FreeStyle Lite Meter] Kit See Rx Instructions .Route Qty: 1 5RF Rx Instructions: Tests 4 X/day cholecalciferol (vitamin D3) 25 mcg (1,000 unit) capsule 25 mcg PO DAILY Qty: 90 12RF bisacodyl 5 mg tablet,delayed release (DR/EC) 10 mg PO BID Qty: 90 0RF (DME) lancets [FreeStyle Lancets] 28 gauge misc See Rx Instructions .Route Qty: 100 4RF Rx Instructions: Tests 5x/day (DME) FreeStyle Lite Strips Strip See Rx Instructions .Route Qty: 100 5RF Rx Instructions: Tests 5X/day glycerin (adult) Suppository 2 supp [place] .after shower Qty: 25 6RF (DME) blood-glucose meter [FreeStyle Lite Meter] Kit See Rx Instructions .ROUTE .MEDSUPPLY Qty: 1 0RF Rx Instructions: As directed (DME) FreeStyle Jody 3 [place] Misc See Rx Instructions .ROUTE .MEDSUPPLY Qty: 1 0RF Rx Instructions: As directed for use with freestyle jody 3+ sensor gabapentin 300 mg capsule 300 mg PO BEDTIME 90 Days Qty: 90 1RF furosemide 20 mg tablet 20 mg PO DAILY Qty: 90 1RF atorvastatin 10 mg tablet 10 mg PO DAILY Qty: 90 0RF (DME) pen needle, diabetic 29 gauge x 1/2 needle See Rx Instructions .ROUTE DAILY Qty: 100 3RF Rx Instructions: As directed daily Jardiance 25 mg tablet 25 mg PO QAM Qty: 30 3RF ibuprofen 800 mg tablet 800 mg PO Q8H PRN (Reason: for pain) 30 Days Qty: 90 0RF Rx Instructions: take with food Fiber Therapy (m-cellulose) 500 mg tablet 1,000 mg PO TID Qty: 180 6RF metformin 500 mg tablet 1,000 mg PO BID 90 Days Qty: 360 1RF benztropine 0.5 mg tablet 0.5 mg PO BID acetaminophen 325 mg capsule 650 mg PO Q4H PRN (Reason: pain) Qty: 30 0RF cyclobenzaprine 10 mg tablet 10 mg PO TID PRN (Reason: muscle spasm) Qty: 12 0RF polyethylene glycol 3350 [Miralax] 17 gram/dose powder 17 g PO DAILY Qty: 510 0RF ketoconazole 2 % cream 1 appl topical DAILY Qty: 30 0RF acetaminophen 500 mg tablet 1,000 mg PO Q6H PRN (Reason: pain) Qty: 30 0RF lidocaine 5 % adhesive patch,medicated 1 patch topical DAILY Qty: 15 0RF Rx Instructions: leave on most painful area for up to 12 hrs clozapine 100 mg tablet 100 mg PO TID sildenafil 50 mg tablet 50 mg PO DAILY PRN (Reason: sexual activity) Qty: 10 0RF Rx Instructions: administer 30 minutes to 4 hours before activity docusate sodium 100 mg capsule 100 mg PO BID Qty: 60 6RF Linzess 290 mcg capsule 290 mcg PO QAM Qty: 30 6RF magnesium hydroxide [Milk of Magnesia] 400 mg/5 mL suspension 20 ml PO BEDTIME PRN (Reason: constipation) Qty: 3780 6RF metoclopramide HCl [Reglan] 10 mg tablet 10 mg PO TID Qty: 90 0RF simethicone 180 mg capsule 180 mg PO TID Qty: 90 6RF Wart Remover 17 % liquid 1 appl topical .every 2 weeks Qty: 9 0RF Rx Instructions: Apply to wart only, repeat in 2 weeks if no improvement. Do not use more than 4 treatments. cyclobenzaprine 10 mg tablet 10 mg PO DAILY PRN (Reason: muscle spasm) Qty: 10 0RF (DME) FreeStyle Jody 3 Plus Sensor Device See Rx Instructions .ROUTE .MEDSUPPLY Qty: 2 11RF Rx Instructions: every 15 days for continuous use Tresiba FlexTouch U-200 200 unit/mL (3 mL) insulin pen 52 unit subcut DAILY 90 Days Qty: 25 3RF guaifenesin 200 mg/5 mL liquid 400 mg PO Q6H PRN (Reason: cough) Qty: 118 0RF insulin lispro [Humalog KwikPen Insulin] 100 unit/mL insulin pen 12 unit subcut DAILY 30 Days Qty: 6 6RF Rx Instructions: with the largest meal of the day Referrals: Luis Manuel Garcia MD [Primary Care Provider, Internal Medicine] Interventions: ED Discharge Assessment Last Done: 02/16/25 11:33 Discharge Date/Time: 02/16/25 11:42 Print Language: Malay
[2025-02-16 09:23] LABS: MANUAL DIFF FLAG NO
[2025-02-16 09:28] LABS: Hematocrit 42.1 % (42.0-52.0); Hemoglobin 15.1 g/dl (14.0-18.0); Imm Gran Abs Auto 0.04 X10*3/uL (0.00-0.03); Imm Gran Pct Auto 0.5 % (0.0-0.4); Lymphocytes Absolute Auto 1.1 X10*3/uL (1.2-4.9); Mean Corpuscular HGB Conc 35.9 g/dl (31.0-36.0); Mean Corpuscular Hemoglobin 30.0 pg (27.0-33.0); Mean Corpuscular Volume 83.5 fL (80.0-98.0); NRBC Abs Auto 0.000 X10*3/uL (0.0-0.012); NRBC Pct Auto 0.0 /100WBC (0.0-0.2); Platelet Count 117 X10*3/uL (160-400); Red Blood Count 5.04 X10*6/uL (4.60-5.80); White Blood Count 7.8 X10*3/uL (4.8-10.8)
[2025-02-16 09:42] LABS: Alanine Aminotransferase 72 U/L (0-40); Albumin Level 4.4 g/dL (3.5-5.0); Alkaline Phosphatase 192 U/L (39-117); Anion Gap 15 (12-20); Aspartate Amino Transferase 34 U/L (5-37); Blood Urea Nitrogen 26 mg/dL (9-16); Calcium 9.2 mg/dL (8.4-10.2); Carbon Dioxide 19 mmol/L (22-29); Chloride 109 mmol/L (96-108); Creatinine Clr Calc Pharmacy 94.1; Estimated Glomerular Filt Rate > 60; Potassium 3.8 mmol/L (3.3-5.1); Sodium 139 mmol/L (135-145); Total Protein 7.4 g/dL (6.5-8.0)
[2025-02-16 10:07] LABS: IDNOW Serial# 55D5AD1C; Strep A Nucleic Acid Negative (Negative)
[2025-02-16 10:14] LABS: Resp Syncy Virus RNA Qual PCR NEGATIVE (Negative); SARS COV2 PCR INHOUSE NEGATIVE (Negative)
[2025-02-16 10:27] VITALS: BP 104/70; PULSE 85; RESP 18; TEMP 36.4; O2SAT 98
[2025-02-16 11:33] VITALS: BP 104/70; PULSE 85; RESP 18; TEMP 36.4; O2SAT 98
== END 2025-02-16 11:42 | disposition home or self-care (01) ==
PROVIDERS: Emergency Provider Emergency Medicine; PCP Internal Medicine
DX: K59.00 Constipation, unspecified (principal); J02.9 Acute pharyngitis, unspecified; E11.9 Type 2 diabetes mellitus without complications; R10.2 Pelvic and perineal pain; Z79.4 Long term (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; Z03.818 Encounter for observation for suspected exposure to other biological agents ruled out; Z79.899 Other long term (current) drug therapy
CPT/HCPCS: 74018; 80053; 85025; 87637; 87651; 99284

== ENCOUNTER 2025-02-18 12:10 | Outpatient (AMB) | payer OTHER, SELFPAY ==
--- NOTE | 2025-02-18 12:40 | MHC.OFFWIV ---
Intake Vital Signs 02/18/25 12:42 Height 61 ft Weight 277 lb BMI 0.4 BP 108/66 Blood Pressure Location Rt brachial Position Sitting Pulse 85 Pulse Source Pulse Oximeter Temp 98.1 F Temp Source Oral Pulse Oximetry (%) 95 Oxygen Delivery Method Room Air Intake Visit Reasons: EP Cough that has not gone away Intake Note: presents with dry cough constipation for 2 days, denies stomach pain but is bloated Patient Tobacco Use Status: Former Tobacco user Allergies No Known Allergies (No Known Allergies*) Allergy (Verified 02/18/25 12:46) Medication List - Last Reconciled 02/18/25 by Marisel Jean Baptiste PA-C acetaminophen 650 mg (2 x 325 mg) PO Q4H PRN acetaminophen 1,000 mg (2 x 500 mg) PO Q6H PRN atorvastatin 10 mg PO DAILY benztropine 0.5 mg PO BID bisacodyl 10 mg (2 x 5 mg) PO BID Held on 01/11/24. 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,apron operator,cont (FreeStyle Jody 3 [place]) As directed for use with freestyle jody 3+ sensor cholecalciferol (vitamin D3) 25 mcg PO DAILY clozapine 100 mg PO TID cyclobenzaprine 10 mg PO TID PRN docusate sodium 100 mg PO BID empagliflozin (Jardiance) 25 mg PO QAM furosemide 20 mg PO DAILY gabapentin 300 mg PO BEDTIME 90 days glycerin (adult) 2 supp [place] .after shower guaifenesin 400 mg (10 mL) PO Q6H PRN Humalog KwikPen Insulin (insulin lispro) 12 units (0.12 mL) subcut DAILY 30 days NS ibuprofen 800 mg PO Q8H PRN 30 days ketoconazole 2% 1 appl topical DAILY lancets (FreeStyle Lancets) Tests 5x/day lidocaine 5% 1 patch topical DAILY linaclotide (Linzess) 290 mcg PO QAM magnesium hydroxide (Milk of Magnesia) 20 mL PO BEDTIME PRN metformin 1,000 mg (2 x 500 mg) PO BID 90 days methylcellulose (laxative) (Fiber Therapy (methylcellulose)) 1,000 mg (2 x 500 mg) PO TID metoclopramide HCl (Reglan) 10 mg PO TID pen needle, diabetic As directed daily polyethylene glycol 3350 (Miralax) 17 grams PO DAILY salicylic acid 17% (Wart Remover) 1 appl topical .every 2 weeks sildenafil 50 mg PO DAILY PRN simethicone 180 mg PO TID Tresiba FlexTouch U-200 (insulin degludec) 52 units (0.26 mL) subcut DAILY 90 days NS Do you need a note to return to daycare/school/sports/work: No HPI HPI Comments History of Present Illness Details History - The patient is a 64-year-old male presenting with several complaints, he has a cough, constipation and concerns about a pulmonary nodule. - The cough has persisted for two to three days, is dry, and is not accompanied by shortness of breath, wheezing, fever, or congestion. - There is no history of seasonal allergies or recent medication use for the cough. - Imaging revealed a stable, triangular, pleural-based right middle lobe pulmonary nodule measuring 0.6 cm, with a follow-up CT recommended in 3 to 12 months. He is asking if he could get a repeat CT scan soon. - The patient has a history of constipation, with a recent KUB x-ray showing a large stool burden and possible fecal impaction, managed with an enema. He tells me he was able to have a bowel movement and takes MiraLax as needed. Physical Exam General: Cooperative, healthy appearing, comfortable and no acute distress Orientation/consciousness: Patient oriented x3 Limitations: No limitations Head: Normal to inspection Ears: Hearing grossly normal bilaterally, external ears normal and TM's blocked by cerumen bilaterally Nose: Normal external nose present, Normal nares present and No nasal discharge present Face and sinus: Normal facial exam and Yes sinuses nontender Mouth: Normal oral and palatal mucosa present and moist mucous membranes Throat: Yes tonsils normal, Yes uvula midline. Posterior oropharynx erythema, no exudates Eyes: Appearance normal, both eyes and all related structures Neck: Normal visual inspection, full ROM Respiratory: Clear to auscultation bilaterally. Normal respiratory effort, able to speak in complete sentences, not actively coughing, no respiratory distress, not tachypneic, no tripod positioning and no use of accessory muscles Cardiovascular: Regular rate and rhythm. Normal S1 and S2 Skin: No rashes or lesions noted Neuro: Patient oriented x3 Extremities: Normal to inspection and Yes no clubbing, cyanosis or edema [facility] Medical History Impacted cerumen, right ear Acute diarrhea Pain in both feet Calcaneal spur of right foot Achilles tendinitis Callus of foot Right hand pain Abdominal bloating Vertigo Calcaneal spur Colon cancer screening COVID-19 Pre-op examination Elevated LFTs Encounter for Medicare annual wellness exam Bowel obstruction Melena Knee pain, bilateral Gastroenteritis Healed wound Chronic idiopathic constipation Chronic idiopathic constipation Hospital discharge follow-up Knee osteoarthritis Obesity (BMI 30-39.9) Schizoaffective disorder Pure hypercholesterolemia Benign essential hypertension Chronic kidney disease (CKD), stage III (moderate) Type 2 diabetes mellitus with diabetic chronic kidney disease Morbid obesity Dyslipidemia 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 mellitus 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 Diabetic polyneuropathy associated with 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 mellitus Schizo affective schizophrenia Diabetes type 2, uncontrolled Surgical History History of repair of congenital cleft palate Hx of circumcision Family History Father HTN (hypertension) Mother Diabetes Other Mental health problem Social History Household Members: None Housing: Apartment Are you a primary patient centered care specialist to a significant other at home: No Do you presently have visiting nurse or other home services: Yes Alcohol intake: former Patient Tobacco Use Status: Former Tobacco user Tobacco use type: Cigarette Cigarettes Per Day: 15 Years Smoked: 8 quit 30 years ago e-Cigarette/Vaping Use: Never Used Second Hand Smoke Exposure: No service: No Current occupational status: employed Current occupation: [employer] Cognitive needs: No Hearing needs: No Vision needs: Yes (glasses) Review of Systems Const All systems reviewed & are unremarkable except as noted in HPI and below Physical Exam Vital Signs: Last Vital Signs Temp 98.1 F 02/18/25 12:42 Pulse 85 02/18/25 12:42 BP 108/66 02/18/25 12:42 Pulse Ox 95 02/18/25 12:42 Oxygen Delivery Method Room Air 02/18/25 12:42 BMI result Body Mass Index 0.4 Assessment & Plan Assessment & Plan (1) URI, acute: Code(s): J06.9 - Acute upper respiratory infection, unspecified Plan: - VSS, pt well appearing and PE unremarkable. Likely viral however pt is insisting on a Chest XR. Will order as he did have a pulmonary nodule on prior imaging. - Provide symptomatic treatment for the cough and monitor for any changes or new symptoms. - A follow-up CT scan for the pulmonary nodule is advised within 3 to 12 months based on clinical risk. Passed along pt's request to have this ordered to his PCP. - Continue management of constipation with Miralax and enemas as needed, and monitor for symptom resolution. Patient was informed and verbally consented to the use of an ambient scribe for clinic note documentation during this visit (2) Chronic idiopathic constipation: Code(s): K59.04 - Chronic idiopathic constipation Plan: as above Orders: Orders XR chest 2V Today R05.9 - Cough, unspecified Coding Level of Care Code Est Pt Level 4 (12555) Diagnoses URI, acute J06.9 Chronic idiopathic constipation K59.04
[2025-02-18 12:42] VITALS: BP 108/66; PULSE 85; TEMP 36.7; O2SAT 95
--- OUTSIDE RECORDS SUMMARY | 2025-02-18 12:58 | XMS_ITS | Patient Health Record ---
Author Organization [facility] Address [address] [facility] [place] [address] Care Team Providers Care Principal Java Software Engineer Name Role Phone Jose RENAE, Luis Manuel Primary Care Provider Unava uT Frederick Unavailable [phone] Allergies No Known Allergies Results Component Value [...] Problem Acquired hammer toe of right foot (991419141803396 5) Other hammer toe(s) (acquired), right foot (M20.41) Active confirmed Problem Plantar fascial fibromatosis (54860282) Plantar fascial fibromatosis (M72.2) Active confirmed Problem Acquired hammer toe of left foot (542515646852813 3) Other hammer toe(s) (acquired), left foot (M20.42) Active confirmed Problem Type II diabetes mellitus without complication (879265380) Type 2 diabetes mellitus without complication (E11.9) Active confirmed Vital Signs Blood pressure diastolic 80 mm Hg 08/30/2024 Height 6ft in 08/30/2024 Blood pressure systolic 130 mm Hg 08/30/2024 Weight 270 lbs 08/30/2024 BMI 36.61 kg/m2 08/30/2024 Procedures Procedure Date Ordered Date Performed Result Body Sit e 29723-OLRELQE NAIL, 6 OR MORE 03/08/2024 N/A 92308-Hlmwdkla Plate 03/08/2024 N/A 21220-KLYQ SKIN LESIONS, 2 TO 4 03/08/2024 N/A 93354-AMVXAWD NAIL, 6 OR MORE 06/21/2024 N/A 81959-OLAL SKIN LESIONS, 2 TO 4 06/21/2024 N/A 43444-RLWNJHX NAIL, 6 OR MORE 08/30/2024 N/A 40343-SBKF SKIN LESIONS, 2 TO 4 08/30/2024 N/A Encounters Encounter Location Date Provider Diagnosis [facility] [address] [place] [address] 03/08/2024 Tu Pierre Tinea unguium B35.1 ; [...] without complication E11.9 and Ingrown nail L60.[address] [address] 06/21/2024 Tu Pierre Tinea unguium B35.1 ; Pain in right toe(s) M79.674 ; Pain in left toe(s) M79.675 ; Achilles tendinitis of right lower extremity M76.61 and Type 2 diabetes mellitus without complication E11.[address] [facility] [address] 08/30/2024 Tuwilliam Pierre Pain in right toe(s) M79.674 ; Tinea unguium B35.1 ; Pain in left toe(s) M79.675 ; Type 2 diabetes mellitus without complication E11.9 ; Other hammer toe(s) (acquired), right foot M20.41 and Other hammer toe(s) (acquired), left foot M20.[address] [address] 04/17/2024 uT Pierre [facility] [address] 09/03/2024 Tu Pierre [address] [address] 10/01/2024 Tu Pierre [address] [address] 12/06/2024 Tu Pierre Plantar fascial fibromatosis M72.2 [...] X ray : Foot, right 3V 03/08/2024 85399-PTWJRLQ NAIL, 6 OR MORE 03/08/2024 01819-DWMULMY NAIL, 6 OR MORE 06/21/2024 20050-YINMLOU NAIL, 6 OR MORE 08/30/2024 69251-Fzapvnln Plate 03/08/2024 69510-RLVN SKIN LESIONS, 2 TO 4 03/08/20 24 94608-YHMM SKIN LESIONS, 2 TO 4 08/30/19 25 95182-JHQO SKIN LESIONS, 2 TO 4 06/21/20 24 Insurance Providers Payer Name Payer Address Payer Phone Subscriber Number Group Number Insured Name Patient Relationship to Insured Coverage Start Date Coverage End Date Commonwe [facility] SCO Claims [address] [place] [phone] [id number] Mike Cornejo Self - patient is the insured Medical (General) History Medical History History ICD Code Diabetic Surgical History Surgery Date(Month/Year)
== END 2025-02-18 14:22 | disposition home or self-care (01) ==
PROVIDERS: PCP Internal Medicine; Visit Provider Physician Assistant
DX: J06.9 Acute upper respiratory infection, unspecified (principal); K59.04 Chronic idiopathic constipation

== ENCOUNTER 2025-02-18 12:10 | Outpatient (REF) | payer OTHER, SELFPAY ==
--- NOTE | ~2025-02-18 | XR_ITS ---
EXAMINATION: XR CHEST CLINICAL INFORMATION: R05.9 - Cough, unspecified COMPARISON: March 06, 2021. TECHNIQUE: 2 views of the chest were obtained. FINDINGS: Pulmonary reticular pattern. No consolidation, pleural fissure pneumothorax. No hyperinflation. Cardiomediastinal silhouette size is normal. Multilevel thoracolumbar spondylosis. XR/XR chest 2V IMPRESSION: No acute airspace disease. Consider chronic interstitial lung disease. Multilevel spondylosis, axial skeleton. Electronically signed by: Jeramie Chapman MD 02/18/2025 01:17 PM EDT
== END 2025-02-18 12:11 | disposition home or self-care (01) ==
LOC: HO.HMGCX 12:10
PROVIDERS: PCP Internal Medicine; Visit Provider Physician Assistant
DX: K59.04 Chronic idiopathic constipation (principal); R91.1 Solitary pulmonary nodule; R05.9 Cough, unspecified; J06.9 Acute upper respiratory infection, unspecified; Z79.899 Other long term (current) drug therapy; Z79.4 Long term (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; Z79.84 Long term (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 of oral hypoglycemic drugs
CPT/HCPCS: 71046; 99212

== ENCOUNTER → 2025-02-18 13:06 | Outpatient (BNV) | payer OTHER, SELFPAY | PROVIDERS: PCP Internal Medicine; Visit Provider Radiology Diagnostic Radiology | DX: R05.9 Cough, unspecified (principal) | CPT/HCPCS: 71046 ==

== ENCOUNTER 2025-02-20 12:19 | Outpatient (AMB) | payer OTHER, SELFPAY ==
--- OUTSIDE RECORDS SUMMARY | 2025-02-20 12:36 | XMS_ITS | Patient Health Record ---
Author Organization [facility] Address [address] [facility] [place] [address] Care Team Providers Care Fuel Efficient Automobile Designer Name Role Phone Jose RENAE, Luis Manuel Primary Care Provider Unava Tu Frederick Unavailable [phone] Allergies No Known Allergies Results Component Value [...] Problem Acquired hammer toe of right foot (717529046567313 5) Other hammer toe(s) (acquired), right foot (M20.41) Active confirmed Problem Plantar fascial fibromatosis (06857499) Plantar fascial fibromatosis (M72.2) Active confirmed Problem Acquired hammer toe of left foot (502976533624699 3) Other hammer toe(s) (acquired), left foot (M20.42) Active confirmed Problem Type II diabetes mellitus without complication (783774811) Type 2 diabetes mellitus without complication (E11.9) Active confirmed Vital Signs Blood pressure diastolic 80 mm Hg 08/30/2024 Height 6ft in 08/30/2024 Blood pressure systolic 130 mm Hg 08/30/2024 Weight 270 lbs 08/30/2024 BMI 36.61 kg/m2 08/30/2024 Procedures Procedure Date Ordered Date Performed Result Body Sit e 90117-SZMFNZW NAIL, 6 OR MORE 03/08/2024 N/A 39143-Uosvlbpw Plate 03/08/2024 N/A 11859-EOSE SKIN LESIONS, 2 TO 4 03/08/2024 N/A 57209-MCCBENS NAIL, 6 OR MORE 06/21/2024 N/A 75942-AFYW SKIN LESIONS, 2 TO 4 06/21/2024 N/A 32208-DTRXZKY NAIL, 6 OR MORE 08/30/2024 N/A 27341-MEOZ SKIN LESIONS, 2 TO 4 08/30/2024 N/A Encounters Encounter Location Date Provider Diagnosis [facility] [place] [address] [place] [address] 03/08/2024 Tu Pierre Tinea unguium B35.1 ; [...] without complication E11.9 and Ingrown nail L60.[address] [address] 06/21/2024 Tu Pierre Tinea unguium B35.1 ; Pain in right toe(s) M79.674 ; Pain in left toe(s) M79.675 ; Achilles tendinitis of right lower extremity M76.61 and Type 2 diabetes mellitus without complication E11.9 [facility] [address] 08/30/2024 Tuwilliam Pierre Pain in right toe(s) M79.674 ; Tinea unguium B35.1 ; Pain in left toe(s) M79.675 ; Type 2 diabetes mellitus without complication E11.9 ; Other hammer toe(s) (acquired), right foot M20.41 and Other hammer toe(s) (acquired), left foot M20.[address] [address] 04/17/2024 Tu [facility] [address] 09/03/2024 Tu Pierre [address] [address] 10/01/2024 Tu Pierre [address] [address] 12/06/2024 Tu Pierre Plantar fascial fibromatosis M72.2 [...] X ray : Foot, right 3V 03/08/2024 58917-CEJXLAB NAIL, 6 OR MORE 03/08/2024 12083-UGRPIQZ NAIL, 6 OR MORE 06/21/2024 44740-XGLURAA NAIL, 6 OR MORE 08/30/2024 95237-Zcvoshqz Plate 03/08/2024 08204-TCLM SKIN LESIONS, 2 TO 4 03/08/20 24 87368-NSIY SKIN LESIONS, 2 TO 4 08/30/19 25 32967-IEYO SKIN LESIONS, 2 TO 4 06/21/20 24 Insurance Providers Payer Name Payer Address Payer Phone Subscriber Number Group Number Insured Name Patient Relationship to Insured Coverage Start Date Coverage End Date Commonwe [facility] SCO Claims [address] [place] [address] [phone] [id number] Mike Cornejo Self - patient is the insured Medical (General) History Medical History History ICD Code Diabetic Surgical History Surgery Date(Month/Year)
--- NOTE | 2025-02-20 12:56 | A.OFFVIS_ITS ---
Intake Intake Visit Reasons: 60 min Sprayer Insecticide Required: No Accompanied by: Self / Same As Patient Allergies No Known Allergies (No Known Allergies*) Allergy (Verified 02/18/25 12:46) HPI Comprehensive Diabetes Asmnt Most Recent Diabetes Results: 2 Creatinine, (0.5-1.4) 1.13 mg/dL 02/16/25 BUN, (9-16) 26 mg/dL H 02/16/25 Sodium, (135-145) 139 mmol/L 02/16/25 Potassium, (3.3-5.1) 3.8 mmol/L 02/16/25 Chloride, (96-108) 109 mmol/L H 02/16/25 Carbon Dioxide, (22-29) 19 mmol/L L 02/16/25 Calcium, (8.4-10.2) 9.2 mg/dL 02/16/25 AST, (5-37) 34 U/L 02/16/25 ALT, (0-40) 72 U/L H 02/16/25 Total Protein, (6.5-8.0) 7.4 g/dL 02/16/25 Albumin, (3.5-5.0) 4.4 g/dL 02/16/25 [facility] Medical History Impacted cerumen, right ear Acute diarrhea Pain in both feet Calcaneal spur of right foot Achilles tendinitis Callus of foot Right hand pain Abdominal bloating Vertigo Calcaneal spur Colon cancer screening COVID-19 Pre-op examination Elevated LFTs Encounter for Medicare annual wellness exam Bowel obstruction Melena Knee pain, bilateral Gastroenteritis Healed wound Chronic idiopathic constipation Chronic idiopathic constipation Hospital discharge follow-up Knee osteoarthritis Obesity (BMI 30-39.9) Schizoaffective disorder Pure hypercholesterolemia Benign essential hypertension Chronic kidney disease (CKD), stage III (moderate) Type 2 diabetes mellitus with diabetic chronic kidney disease Morbid obesity Dyslipidemia 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 mellitus MCC (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 Diabetic polyneuropathy associated with 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 mellitus Schizo affective schizophrenia Diabetes type 2, uncontrolled Surgical History History of repair of congenital cleft palate Hx of circumcision Family History Father HTN (hypertension) Mother Diabetes Other Mental health problem Social History Household Members: None Housing: Apartment Are you a primary anesthesiologist and critical care to a significant other at home: No Do you presently have visiting nurse or other home services: Yes Alcohol intake: former Patient Tobacco Use Status: Former Tobacco user Tobacco use type: Cigarette Cigarettes Per Day: 15 Years Smoked: 8 quit 30 years ago e-Cigarette/Vaping Use: Never Used Second Hand Smoke Exposure: No service: No Current occupational status: employed Current occupation: [employer] Cognitive needs: No Hearing needs: No Vision needs: Yes (glasses) Assessment & Plan Assessment & Plan (1) Diabetic polyneuropathy associated with 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 mellitus: Code(s): E11.42 - Type 2 diabetes mellitus with diabetic polyneuropathy Plan: Personal Continuous Glucose Monitor: Patients CGM information reviewed, Pt uses [employer] with reader Instructed patient to increase Tresiba from 52 units to 58 units daily, due to average glucose being 183 mg/dL, leave Humalog dose the same Discussed the following topics below with patient: Heat affects people with diabetes more Certain diabetes?complications, as damage to blood vessels and nerves, can affect your sweat glands so your?body can't cool as effectively. That can lead to heat exhaustion and heat stroke, which is a medical emergency. People with diabetes?get dehydrated?(lose too much water from their bodies) more quickly. Not drinking enough liquids can raise?blood sugar, and high blood sugar can make you urinate more, causing dehydration. Some commonly used medicines like diuretics ( water pills to treat high blood pressure) can dehydrate you too. High temperatures can change?how your body uses insulin. You may need to test your blood sugar more often and adjust your insulin dose and what you eat and drink. Patient able to insert sensor independently at home without issue.? Portions of this note were created using voice recognition software, please excuse any words or phrases that may have been misinterpreted. Patient Instructions: Increase Tresiba from 52 units to 58 units When blood sugar is high drink extra water, go for a walk if you are not sick. Follow-up with Diabetes Education nurse in 4 months Your summer checklist * Drink plenty of water.? Avoid caffeinated beverages. * Test your blood sugar often. * Keep medicines, supplies, and equipment out of the heat. * Stay inside in air-conditioning when it's hottest. * Wear loose, light clothing. * Get medical attention for heat-related illness. * Make a plan in case you lose power.? For example, know where your local cooling centers are located, Shopping Malls or Senior Center Coding Level of Care Code Est Pt Level 1 (46046) Diagnoses Diabetic polyneuropathy associated with 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 mellitus E11.42
== END 2025-02-20 13:33 | disposition home or self-care (01) ==
LOC: HO.ENCR 12:19
PROVIDERS: PCP Internal Medicine; Visit Provider Registered Nurse Diabetes Educator
DX: E11.42 Type 2 diabetes mellitus with diabetic polyneuropathy (principal)

== ENCOUNTER → 2025-02-20 12:19 | Outpatient (BNVA) | payer OTHER, SELFPAY | PROVIDERS: PCP Internal Medicine; Visit Provider Registered Nurse Diabetes Educator | DX: E11.42 Type 2 diabetes mellitus with diabetic polyneuropathy (principal) | CPT/HCPCS: 99211 ==

== ENCOUNTER 2025-02-21 13:33 | Outpatient (AMB) | payer OTHER, SELFPAY ==
--- OUTSIDE RECORDS SUMMARY | 2025-02-21 13:37 | XMS_ITS | Patient Health Record ---
Author Organization [facility] Address [address] [facility] [place] [address] Care Team Providers Care Bar Pointer Name Role Phone Jose RENAE, Luis Manuel Primary Care Provider Unava Tu Frederick Unavailable [phone] Allergies No Known Allergies Results Component Value [...] Problem Acquired hammer toe of right foot (874169255559177 5) Other hammer toe(s) (acquired), right foot (M20.41) Active confirmed Problem Plantar fascial fibromatosis (67334425) Plantar fascial fibromatosis (M72.2) Active confirmed Problem Acquired hammer toe of left foot (687231945730816 3) Other hammer toe(s) (acquired), left foot (M20.42) Active confirmed Problem Type II diabetes mellitus without complication (630617610) Type 2 diabetes mellitus without complication (E11.9) Active confirmed Vital Signs Blood pressure diastolic 80 mm Hg 08/30/2024 Height 6ft in 08/30/2024 Blood pressure systolic 130 mm Hg 08/30/2024 Weight 270 lbs 08/30/2024 BMI 36.61 kg/m2 08/30/2024 Procedures Procedure Date Ordered Date Performed Result Body Sit e 03544-TKEFIBB NAIL, 6 OR MORE 03/08/2024 N/A 54099-Clpjljha Plate 03/08/2024 N/A 53458-NIVO SKIN LESIONS, 2 TO 4 03/08/2024 N/A 54558-TLLDDHA NAIL, 6 OR MORE 06/21/2024 N/A 20941-EXPN SKIN LESIONS, 2 TO 4 06/21/2024 N/A 86193-WCUZOJR NAIL, 6 OR MORE 08/30/2024 N/A 05515-CXGK SKIN LESIONS, 2 TO 4 08/30/2024 N/A Encounters Encounter Location Date Provider Diagnosis [facility] [place] [address] [place] [address] 03/08/2024 Tu Pierre Tinea unguium B35.1 ; [...] complication E11.9 and Ingrown nail L60.[address] [address] 06/21/2024 Tu Pierre Tinea unguium B35.1 ; Pain in right toe(s) M79.674 ; Pain in left toe(s) M79.675 ; Achilles tendinitis of right lower extremity M76.61 and Type 2 diabetes mellitus without complication E11.9 [facility] [address] 08/30/2024 Tuwilliam Pierre Pain in right toe(s) M79.674 ; Tinea unguium B35.1 ; Pain in left toe(s) M79.675 ; Type 2 diabetes mellitus without complication E11.9 ; Other hammer toe(s) (acquired), right foot M20.41 and Other hammer toe(s) (acquired), left foot M20.[address] [address] 04/17/2024 Tu Pierre [facility] [address] 09/03/2024 Tu Pierre [address] [address] 10/01/2024 Tu Pierre [address] [address] 12/06/2024 Tu Pierre Plantar fascial fibromatosis M72.2 [...] X ray : Foot, right 3V 03/08/2024 67789-GKQQGPC NAIL, 6 OR MORE 03/08/2024 16509-OPXPMOD NAIL, 6 OR MORE 06/21/2024 67786-RQLEQZK NAIL, 6 OR MORE 08/30/2024 43370-Jeidkpgi Plate 03/08/2024 06386-ZAVN SKIN LESIONS, 2 TO 4 03/08/20 24 00905-FKIN SKIN LESIONS, 2 TO 4 08/30/19 25 12798-HKEG SKIN LESIONS, 2 TO 4 06/21/20 24 Insurance Providers Payer Name Payer Address Payer Phone Subscriber Number Group Number Insured Name Patient Relationship to Insured Coverage Start Date Coverage End Date Commonwe [facility] SCO Claims [address] [place] [address] [phone] [id number] Mike Cornejo Self - patient is the insured Medical (General) History Medical History History ICD Code Diabetic Surgical History Surgery Date(Month/Year)
[2025-02-21 13:46] VITALS: BP 120/78; PULSE 95; O2SAT 96; BMI 36.9
--- NOTE | 2025-02-21 13:46 | MHC.PC.OV ---
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,stem setter,cont (FreeStyle Jody 3 [place]) As directed for use with freestyle jody 3+ sensor cholecalciferol (vitamin D3) 25 mcg PO DAILY clozapine 100 mg PO TID cyclobenzaprine 10 mg PO TID PRN docusate sodium 100 mg PO BID empagliflozin (Jardiance) 25 mg PO QAM furosemide 20 mg PO DAILY gabapentin 300 mg PO BEDTIME 90 days glycerin (adult) 2 supp OR .after shower guaifenesin 400 mg (10 mL) PO Q6H PRN Humalog KwikPen Insulin (insulin lispro) 12 units (0.12 mL) subcut DAILY 30 days NS ibuprofen 800 mg PO Q8H PRN 30 days ketoconazole 2% 1 appl topical DAILY lancets (FreeStyle Lancets) Tests 5x/day lidocaine 5% 1 patch topical DAILY linaclotide (Linzess) 290 mcg PO QAM magnesium hydroxide (Milk of Magnesia) 20 mL PO BEDTIME PRN metformin 1,000 mg (2 x 500 mg) PO BID 90 days methylcellulose (laxative) (Fiber Therapy (methylcellulose)) 1,000 mg (2 x 500 mg) PO TID metoclopramide HCl (Reglan) 10 mg PO TID pen needle, diabetic As directed daily polyethylene glycol 3350 (Miralax) 17 grams PO DAILY salicylic acid 17% (Wart Remover) 1 appl topical .every 2 weeks sildenafil 50 mg PO DAILY PRN simethicone 180 mg PO TID Tresiba FlexTouch U-200 (insulin degludec) 58 units (0.29 mL) subcut DAILY 90 days NS Tobacco use date assessed: 02/21/25 Dental Screening Dental Screen Date: 02/21/25 Did you have a dental visit in the last 12 months?: No Did you have a dental problem in the last 6 months where you did not have access to dental care?: No Was dental information given to patient?: No HPI F/u care HPI Details Patient comes in today for his follow-up visit States that he feels okay He denies any headaches or dizziness Denies any chest pains, no SOB No nausea/vomiting, no abdominal pain No change in bowel habits noted - states that he still has on and off constipation and he continues to follow up with GI for this issue He is also now seeing psychiatry at [facility] for continuing follow up and management of his psychiatric issues Needs a couple of his Rx refilled He had some follow up labs done a few days ago - to discuss his results [facility] Medical History Impacted cerumen, right ear Acute diarrhea Pain in both feet Calcaneal spur of right foot Achilles tendinitis Callus of foot Right hand pain Abdominal bloating Vertigo Calcaneal spur Colon cancer screening COVID-19 Pre-op examination Elevated LFTs Encounter for Medicare annual wellness exam Bowel obstruction Melena Knee pain, bilateral Gastroenteritis Healed wound Chronic idiopathic constipation Chronic idiopathic constipation Hospital discharge follow-up Knee osteoarthritis Obesity (BMI 30-39.9) Schizoaffective disorder Pure hypercholesterolemia Benign essential hypertension Chronic kidney disease (CKD), stage III (moderate) Type 2 diabetes mellitus with diabetic chronic kidney disease Morbid obesity Dyslipidemia 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 mellitus intermediate (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 Diabetic polyneuropathy associated with 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 mellitus Schizo affective schizophrenia Diabetes type 2, uncontrolled Surgical History History of repair of congenital cleft palate Hx of circumcision Family History Father HTN (hypertension) Mother Diabetes Other Mental health problem Social History Household Members: None Housing: Apartment Are you a primary medicare compliance auditor to a significant other at home: No Do you presently have visiting nurse or other home services: Yes Alcohol intake: former Patient Tobacco Use Status: Former Tobacco user Tobacco use type: Cigarette Cigarettes Per Day: 15 Years Smoked: 8 quit 30 years ago e-Cigarette/Vaping Use: Never Used Second Hand Smoke Exposure: No service: No Current occupational status: employed Current occupation: [employer] Cognitive needs: No Hearing needs: No Vision needs: Yes (glasses) Questionnaire PHQ-9 Over the last 2 weeks, how often have you been bothered by any of the following problems? 1. Little interest or pleasure in doing things: several days 2. Feeling down, depressed, or hopeless: several days 3. Trouble falling or staying asleep, or sleeping too much: nearly every day 4. Feeling tired or having little energy: several days 5. Poor appetite or overeating: more than half the days 6. Feeling bad about yourself - or that you are a failure or have let yourself or your family down: not at all 7. Trouble concentrating on things, such as reading the newspaper or watching television: several days 8. Moving or speaking so slowly that other people could have noticed. Or the opposite - being so fidgety or restless that you have been moving around a lot more than usual: not at all 9. Thoughts that you would be better off or of hurting yourself in some way: not at all Total score: 9 Depression Screening Interpretation: Positive Depression Screening Follow-up: Existing condition and In treatment Depression Screening Done: Yes 41632 - PHQ-9 Billing: Yes Source: Developed by Drs. Foster Queen, Shahla Vo, Lambert Sanchez and colleagues, with an educational german from [employer]. Thrive Questionnaire Date Thrive assessed: 02/21/25 I am a: Patient What is your living situation today?: I have a steady place to live Within the past 12 months, did the food you bought not last and you didn't have the money to get more?: Never true Within the past 12 months, did you worry whether your food would run out before you got money to buy more?: Never true Do you have trouble paying for medicines?: No Do you have trouble getting transportation to medical appointments?: No Do you have trouble paying your heating and electricity bill?: No Do you have trouble taking care of your child, family member or friend?: No Do you have trouble with day-to-day activities such as bathing, preparing meals, shopping, managing finances, etc.?: No Are you currently unemployed and looking for a job?: I choose not to answer this question Are you interested in more education?: No Please select the resources that you would like help with: None Currently or been in a relationship where the following occur: No concerns reported THRIVE Score: 0 AUDIT C Alcohol Use Questionnaire (AUDIT-C) 1. How often do you have a drink containing alcohol?: Never 3. How often do you have six or more drinks on one occasion?: Never Total Score: 0 Score Reviewed/Action Taken: Yes KENDRA-7 AMB Questionnaire KENDRA-7 Date KENDRA - 7 assessed: 02/21/25 Feeling nervous, anxious, or on edge: 0 = Not at all Not being able to stop or control worryin = Not at all Worrying too much about different things: 0 = Not at all Trouble relaxin = Not at all Being so restless that it is hard to sit still: 0 = Not at all Becoming easily annoyed or irritable: 0 = Not at all Feeling afraid as if something awful might happen: 0 = Not at all Total KENDRA-7 score (0-4 normal; 5-9 mild; 10-14 moderate; 15-21 severe): 0 Source: Developed by Drs. Foster Queen, Shahla Vo, Lambert Sanchez and colleagues, with an educational german from [employer]. KENDRA-7 Assessment Billing KENDRA-7 Assessment Tool: KENDRA-7 Assessment 89224 Review of Systems Const Denies chills, Denies fatigue, Denies fever(s) and Denies headache(s) ENT Denies dysphagia, Denies dizziness, Denies otalgia, Denies headache(s), Denies neck pain, Denies odynophagia and Denies sore throat Card Denies chest pain, Denies palpitations and Denies dyspnea Resp Denies cough, Denies dyspnea and Denies wheezing GI Denies abdominal pain, Reports constipation (recurrent), Denies dysphagia, Denies heartburn, Reports diarrhea (occasionally; usually when his constipation gets worse), Denies nausea, Denies odynophagia and Denies vomiting Reports erectile dysfunction (states that his insurance will not cover Rx), Denies dysuria, Denies nocturia and Denies urinary frequency Musc Denies back pain, Reports arthralgias (both knees, on and off) and Denies neck pain Skin/Breast Denies rash Neuro Denies dizziness and Denies headache(s) Endo Denies fatigue and Denies palpitations Aller/Immun Denies wheezing Physical exam (Primary Care) Vital Signs: Last Vital Signs Pulse 95 02/21/25 13:46 BP 120/78 02/21/25 13:46 Pulse Ox 96 02/21/25 13:46 Oxygen Delivery Method Room Air 02/21/25 13:46 BMI result Body Mass Index 36.9 Tobacco/Smoking Status: Tobacco use Status Tobacco use date assessed 02/21/25 02/21/25 13:48 Patient Tobacco Use Status Former Tobacco user 02/21/25 13:46 Tobacco use type Cigarette 02/21/25 13:46 e-Cigarette/Vaping Use Never Used 02/21/25 13:46 PHQ-9: PHQ-9 Score PHQ-9: Total score 9 02/22/25 23:35 Depression Screening Interpretation: Positive Depression Screening Follow-up: Existing condition and In treatment Thrive Assessment: Date of Thrive Assessment Date Thrive assessed 02/21/25 02/21/25 13:48 Currently or been in a relationship where the following occur: No concerns reported Const General: no acute distress and alert HENMT Ears: TM's normal bilaterally and EAC's normal Throat: Yes posterior oropharynx normal and Yes tonsils normal (no TP congestion noted) Neck Neck: Yes supple and No lymphadenopathy Thyroid: Thyroid normal Resp Auscultation: clear to auscultation bilaterally, no rales and no wheezes Cardio Rate: regular rate Rhythm: regular rhythm Heart sounds: no murmurs GI Palpation (GI): Soft to palpation and nontender Auscultation: normal bowel sounds General: Yes no CVA tenderness Back/Spine/Pelvis Back: no CVA tenderness Cervical Spine: No Cervical spine tenderness Thoracic/Lumbar Spine: No lumbar spinal tenderness Skin Rashes: no rashes Extrem General: Yes no clubbing, cyanosis or edema Right lower extremity: knee Details: tenderness; no swelling Left lower extremity: knee Details: tenderness; no swelling Results Reviewed Results Reviewed: Laboratory Tests 02/06/25 02/16/25 13:08 09:16 WBC 7.8 Hgb 15.1 Hct 42.1 Plt Count 117 L Sodium 139 Potassium 3.8 Creatinine 1.13 Estimated GFR > 60 Random Glucose 262 H Hgb A1c (Clinic) 7.0 H Calcium 9.2 AST 34 ALT 72 H Coding Level of Care Code Est Pt Level 4 (60011) Diagnoses Type 2 diabetes mellitus with stage 3 chronic kidney disease, with long-term current use of insulin, unspecified whether stage 3a or 3b CKD E11.22; N18.30; Z79.4 Diabetes mellitus usp insulin use: with intermediate project manager use Chronic kidney disease stage: stage 3 (moderate) Chronic kidney disease stage 3 subtype: unspecified whether 3a or 3b Stage 3 chronic kidney disease, unspecified whether stage 3a or 3b CKD N18.30 Chronic kidney disease stage 3 subtype: unspecified whether 3a or 3b Benign essential hypertension I10 Pure hypercholesterolemia E78.00 Elevated LFTs R79.89 Chronic idiopathic constipation K59.04 Constipation type: chronic idiopathic constipation Pain in both knees, unspecified chronicity M25.561; M25.562 Chronicity: unspecified Erectile dysfunction, unspecified erectile dysfunction type N52.9 Erectile dysfunction type: unspecified Schizoaffective disorder, unspecified type F25.9 Schizoaffective disorder type: unspecified Obesity (BMI 30-39.9) E66.9 Additional Codes KENDRA-7 Assessment Billing - KENDRA-7 Assessment Tool: KENDRA-7 Assessment [id number] ([id number]) PHQ-9 - 24719 - PHQ-9 Billing: Yes ([id number]) Assessment & Plan Assessment & Plan (1) Type 2 diabetes mellitus with diabetic chronic kidney disease: Code(s): E11.22 - Type 2 diabetes mellitus with diabetic chronic kidney disease Category: Medical Qualifiers: Diabetes mellitus intermediate project manager insulin use: with usp use Chronic kidney disease stage: stage 3 (moderate) Chronic kidney disease stage 3 subtype: unspecified whether 3a or 3b Qualified Code(s): E11.22 - Type 2 diabetes mellitus with diabetic chronic kidney disease; N18.30 - Chronic kidney disease, stage 3 unspecified; Z79.4 - intermodal dispatcher (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 Plan: His in-office HgbA1c was at 7.0% a couple of weeks ago on 02/06/2025 (was at 7.8% a few months ago in October 2024) - goal is at least <7.0% Reinforced diabetic diet Continue Jardiance 25 mg QD, Metformin 500 mg 2 tablets BID, Tresiba 58 units daily and Humalog 12 units QD with the largest meal of the day Mounjaro was recently discontinued by endocrinology due to worsening constipation (patient already has chronic constipation over the years) Folow up with endocrinology as scheduled (2) Chronic kidney disease (CKD), stage III (moderate): Code(s): N18.30 - Chronic kidney disease, stage 3 unspecified Category: Medical Qualifiers: Chronic kidney disease stage 3 subtype: unspecified whether 3a or 3b Qualified Code(s): N18.30 - Chronic kidney disease, stage 3 unspecified Plan: Stable - will continue to monitor his GFR and renal function regularly (3) Benign essential hypertension: Code(s): I10 - Essential (primary) hypertension Category: Medical Plan: Reinforced low-sodium diet - goal is systolic BP of at least 120 to 130 mm or less Continue Furosemide 20 mg once a day (4) Pure hypercholesterolemia: Code(s): E78.00 - Pure hypercholesterolemia, unspecified Category: Medical Plan: Results of his labs done a few days ago reviewed and discussed with patient Reinforced low cholesterol diet Continue Atorvastatin 10 mg once a day Will recheck his labs and fasting lipids in 3 months for follow up (5) Elevated LFTs: Code(s): R79.89 - Other specified abnormal findings of blood chemistry Category: Medical Plan: Patient is cautioned that his LFTs have improved from previous but his serum ALT level is still elevated; AST is now normal This is likely related primarily to his weight but patient also drinks alcohol every now and then He is also on Atorvastatin and has been reminded that alcohol and statins generally do not mix well Will recheck his LFTs in 3 months for follow up (6) Constipation: Comment: increase liquids and take med Code(s): K59.00 - Constipation, unspecified Category: Medical Qualifiers: Constipation type: chronic idiopathic constipation Qualified Code(s): K59.04 - Chronic idiopathic constipation Plan: CHRONIC - he is again encouraged to increase his oral fluids and dietary fiber He continues to follow up with GI for management of this chronic issue Continue Linzess 290 mcg QD, Fiber Laxative 1000 mg TID, Miralax 17 gm QD, MOM 20 ml Q HS and Colace 100 mg BID (7) Knee pain, bilateral: Code(s): M25.561 - Pain in right knee; M25.562 - Pain in left knee Category: Medical Qualifiers: Chronicity: unspecified Qualified Code(s): M25.561 - Pain in right knee; M25.562 - Pain in left knee Plan: Most likely due to either osteoarthritis or tendinitis X-rays of his knees done back in 2019 revealed (+) some joint space narrowing Continue Acetaminophen 1000 mg PRN - Rx refilled Will consider getting repeat knee x-rays done if his knee pains persist or get worse (8) Erectile dysfunction: Code(s): N52.9 - Male erectile dysfunction, unspecified Category: Medical Qualifiers: Erectile dysfunction type: unspecified Qualified Code(s): N52.9 - Male erectile dysfunction, unspecified Plan: Continue Sildenafil 50 mg PRN - Rx refilled (9) Schizoaffective disorder: Code(s): F25.9 - Schizoaffective disorder, unspecified Category: Medical Qualifiers: Schizoaffective disorder type: unspecified Qualified Code(s): F25.9 - Schizoaffective disorder, unspecified Plan: Continue Benztropine 0.5 mg BID and Clozapine 100 mg TID, Follow-up with Psychiatry as scheduled - he is now going to [facility] (10) Obesity (BMI 30-39.9): Code(s): E66.9 - Obesity, unspecified Category: Medical Plan: Reinforced diet/exercise as tolerated/lose weight Plan Follow up in 3 months Orders: Orders Microalbumin, Random (w Creat) 3 Months E11.9 - Type 2 diabetes mellitus without complications Complete Blood Count Auto Diff 3 Months D64.9 - Anemia, unspecified Comprehensive [place]. Panel Fast 3 Months E78.00 - Pure hypercholesterolemia, unspecified TSH reflex Free T4 3 Months E78.00 - Pure hypercholesterolemia, unspecified UA CC w/rflx Micro + Cult 3 Months R30.0 - Dysuria Vitamin B12 and Folate 3 Months E53.8 - Deficiency of other specified B group vitamins Hemoglobin A1c 3 Months E11.9 - Type 2 diabetes mellitus without complications Lipid Panel 3 Months E78.00 - Pure hypercholesterolemia, unspecified Vitamin D 25-OH Total 3 Months E55.9 - Vitamin D deficiency, unspecified Medications: Changed From acetaminophen 1,000 mg (2 x 500 mg) PO Q6H PRN 30 tabs 0RF pain M54.50 - Low back pain, unspecified To acetaminophen 1,000 mg (2 x 500 mg) PO Q6-8H PRN 30 tabs 1RF pain M54.50 - Low back pain, unspecified Refilled sildenafil administer 30 minutes to 4 hours before activity 50 mg PO DAILY PRN 30 tabs 0RF sexual activity
== END 2025-02-21 14:31 | disposition home or self-care (01) ==
LOC: HO.HMCH 13:34
PROVIDERS: PCP Internal Medicine; Visit Provider Internal Medicine
DX: I12.9 Hypertensive chronic kidney disease with stage 1 through stage 4 chronic kidney disease, or unspecified chronic kidney disease (principal); E11.22 Type 2 diabetes mellitus with diabetic chronic kidney disease; N18.30 Chronic kidney disease, stage 3 unspecified; Z79.4 Long term (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; F25.9 Schizoaffective disorder, unspecified; E78.00 Pure hypercholesterolemia, unspecified; E66.9 Obesity, unspecified; Z68.36 Body mass index [BMI] 36.0-36.9, adult; R79.89 Other specified abnormal findings of blood chemistry; K59.04 Chronic idiopathic constipation; M25.561 Pain in right knee; M25.562 Pain in left knee

== ENCOUNTER → 2025-02-21 13:33 | Outpatient (BNVA) | payer OTHER, SELFPAY | PROVIDERS: PCP Internal Medicine; Visit Provider Internal Medicine | DX: E11.22 Type 2 diabetes mellitus with diabetic chronic kidney disease (principal); I12.9 Hypertensive chronic kidney disease with stage 1 through stage 4 chronic kidney disease, or unspecified chronic kidney disease; N18.30 Chronic kidney disease, stage 3 unspecified; E78.00 Pure hypercholesterolemia, unspecified; R79.89 Other specified abnormal findings of blood chemistry; K59.04 Chronic idiopathic constipation; M25.561 Pain in right knee; M25.562 Pain in left knee; N52.9 Male erectile dysfunction, unspecified; F25.9 Schizoaffective disorder, unspecified; E66.9 Obesity, unspecified; Z68.36 Body mass index [BMI] 36.0-36.9, adult; Z79.4 Long term (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; Z79.84 Long term (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 of oral hypoglycemic drugs; Z79.899 Other long term (current) drug therapy; Z13.31 Encounter for screening for depression; Z13.39 Encounter for screening examination for other mental health and behavioral disorders | CPT/HCPCS: 96127; 99212 ==

== ENCOUNTER 2025-02-24 10:34 | Outpatient (AMB) | payer OTHER, SELFPAY ==
[2025-02-24 11:04] VITALS: BP 100/70; PULSE 88; TEMP 36.6; O2SAT 95; BMI 36.4
--- NOTE | 2025-02-24 11:04 | MHC.OFFWIV ---
Intake Vital Signs 02/24/25 11:04 Height 6 ft 1 in Weight 276 lb BMI 36.4 BP 100/70 Blood Pressure Location Rt brachial Position Sitting Pulse 88 Pulse Source Pulse Oximeter Temp 97.8 F Temp Source Oral Pulse Oximetry (%) 95 Oxygen Delivery Method Room Air Intake Visit Reasons: EP Sore throat,sore chest, sneezing, fatigue, weak Intake Note: Patient presents with sneezing, sore throat and chest times 2days with no cough and very weak and fatigue Patient Tobacco Use Status: Former Tobacco user Desulphuring Operator Required: No Allergies No Known Allergies (No Known Allergies*) Allergy (Verified 02/21/25 14:16) Do you need a note to return to daycare/school/sports/work: No HPI HPI Comments History of Present Illness Details 64 y/o Male patient who presents to the walk in clinic with c/o URI symptoms for 2 days. [facility] Medical History (Updated 02/24/25 @ 11:47 by Lucille Issa NP) Acute respiratory disease Impacted cerumen, right ear Acute diarrhea Pain in both feet Calcaneal spur of right foot Achilles tendinitis Callus of foot Right hand pain Abdominal bloating Vertigo Calcaneal spur Colon cancer screening COVID-19 Pre-op examination Elevated LFTs Encounter for Medicare annual wellness exam Bowel obstruction Melena Knee pain, bilateral Gastroenteritis Healed wound Chronic idiopathic constipation Chronic idiopathic constipation Hospital discharge follow-up Knee osteoarthritis Obesity (BMI 30-39.9) Schizoaffective disorder Pure hypercholesterolemia Benign essential hypertension Chronic kidney disease (CKD), stage III (moderate) Type 2 diabetes mellitus with diabetic chronic kidney disease Morbid obesity Dyslipidemia 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 mellitus terminal carman (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 Diabetic polyneuropathy associated with 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 mellitus Schizo affective schizophrenia Diabetes type 2, uncontrolled Surgical History History of repair of congenital cleft palate Hx of circumcision Family History Father HTN (hypertension) Mother Diabetes Other Mental health problem Social History Household Members: None Housing: Apartment Are you a primary attending ambulatory care to a significant other at home: No Do you presently have visiting nurse or other home services: Yes Alcohol intake: former Patient Tobacco Use Status: Former Tobacco user Tobacco use type: Cigarette Cigarettes Per Day: 15 Years Smoked: 8 quit 30 years ago e-Cigarette/Vaping Use: Never Used Second Hand Smoke Exposure: No service: No Current occupational status: employed Current occupation: [employer] Cognitive needs: No Hearing needs: No Vision needs: Yes (glasses) Review of Systems Const All systems reviewed & are unremarkable except as noted in HPI and below Physical Exam Vital Signs: Last Vital Signs Temp 97.8 F 02/24/25 11:04 Pulse 88 02/24/25 11:04 BP 100/70 02/24/25 11:04 Pulse Ox 95 02/24/25 11:04 Oxygen Delivery Method Room Air 02/24/25 11:04 BMI result Body Mass Index 36.4 Const General: no acute distress Nutritional Appearance: obese Orientation/consciousness: patient oriented x3 HEENT Head: Yes normocephalic Ears: external ears normal and TM abnormal with fluid behind the TM bilateral General nose exam: Abnormal mucous membranes and turbinates present boggy and erythematous Face and sinus: Yes sinuses nontender Mouth: moist mucous membranes Throat: Yes uvula midline Resp Effort & Inspection: normal respiratory effort Auscultation: clear to auscultation bilaterally Cardio Heart sounds: S1 normal heart sound present and S2 normal heart sound present Neuro General: patient oriented x3 Assessment & Plan Assessment & Plan (1) Acute respiratory disease: Code(s): J06.9 - Acute upper respiratory infection, unspecified Plan: OTC cold remedies Ordered SARs Acetaminophen for pain relief. Hydrate well with warm fluids. Orders: Orders SARS-CoV2/FLU/RSV Today J06.9 - Acute upper respiratory infection, unspecified AMB Rapid Strep Screen Today Z13.9 - Encounter for screening, unspecified Medications: New cetirizine (Zyrtec) 10 mg PO DAILY 30 tabs 0RF J06.9 - Acute upper respiratory infection, unspecified Coding Level of Care Code Est Pt Level 4 (70825) Diagnoses Acute respiratory disease J06.9 Time Spent (min) 20
== END 2025-02-24 11:56 | disposition home or self-care (01) ==
PROVIDERS: PCP Internal Medicine; Visit Provider Nurse Practitioner Family
DX: J06.9 Acute upper respiratory infection, unspecified (principal); Z13.9 Encounter for screening, unspecified

== ENCOUNTER 2025-02-24 10:34 | Outpatient (REF) | payer OTHER, SELFPAY ==
[2025-02-24 14:44] LABS: Resp Syncy Virus RNA Qual PCR NEGATIVE (Negative); SARS COV2 PCR INHOUSE NEGATIVE (Negative)
== END 2025-02-24 10:35 | disposition home or self-care (01) ==
LOC: HO.LAB 10:34
PROVIDERS: Nurse Practitioner Family; PCP Internal Medicine
DX: J06.9 Acute upper respiratory infection, unspecified (principal)
CPT/HCPCS: 87637; 87880; 99212

== ENCOUNTER 2025-03-02 12:25 | Emergency (ER) | payer OTHER, SELFPAY ==
--- NOTE | ~2025-03-02 | XR_ITS ---
CLINICAL HISTORY: pain, no injury Three views of the lumbar spine. COMPARISON: None provided. FINDINGS: Five [id number]-[id number] lumbar type vertebral bodies. Normal vertebral body alignment. Vertebral body heights are maintained. No evidence of acute vertebral body injury. Facet joint arthrosis present throughout the lumbar spine. Mild loss of disc space height at L5-S1. Prominent marginal osteophytes along the lower thoracic and upper lumbar spine. Visualized portions of the bones of the pelvis appear intact. IMPRESSION: 1. No radiographic evidence of acute injury to the lumbar spine. 2. Moderate multilevel lumbar spondylosis. This document has been electronically signed by: Aaron Frederick MD on 03/02/2025 14:11:33
--- NOTE | ~2025-03-02 | XR_ITS ---
CLINICAL HISTORY: pain, no trauma Two views of the left hip. COMPARISON: XR pelvis and left hip dated 10/26/23 at 20:49 EDT FINDINGS: Visualized portions of the proximal left femur appears intact. No trabecular disruption or cortical discontinuity. Femoral head is appropriately seated in the acetabulum. Small osteophytes present along the inferior margin of the femoral head and superior margin of the acetabulum. Visualized portions of the pelvis appear intact. IMPRESSION: 1. No radiographic evidence of acute injury to the left hip. 2. Mild degenerative changes of the left hip. This document has been electronically signed by: Aaron Frederick MD on 03/02/2025 14:12:43
--- NOTE | ~2025-03-02 | XR_ITS ---
CLINICAL HISTORY: pain, no injury AP pelvis, Two views of the right hip. COMPARISON: XR pelvis and left hip dated 10/26/23 at 20:49 EDT FINDINGS: Pelvic ring appears intact. Degenerative changes of the partially visualized lower lumbar spine. Visualized portions of the contralateral left hip appear intact. Right hip: Visualized portions of the proximal right femur appears intact. No trabecular disruption or cortical discontinuity. Femoral head is appropriately seated in the acetabulum. Decreased right hip joint space along the superior margin. Tiny osteophytes present along the greater trochanter and femoral head. IMPRESSION: 1. No radiographic evidence of acute injury to the pelvis and right hip. Mild degenerative changes of the right hip. This document has been electronically signed by: Aaron Frederick MD on 03/02/2025 14:15:26
[2025-03-02 13:03] VITALS: BP 114/80; PULSE 92; RESP 16; TEMP 36.4; O2SAT 97; BMI 36.7
--- NOTE | 2025-03-02 13:04 | ED.BACK ---
HPI - Back Pain/Injury General Chief Complaint: Back Pain/Injury Stated Complaint: back pain barely could walk Time Seen by Provider: 03/02/25 14:18 Source: patient Mode of arrival: ambulatory Limitations: no limitations History of Present Illness ED Provider: Gena Holloway APRN HPI Narrative: 64-year-old male with pmhx significant for DM, HLD, CKD, HTN, hypercholesterolemia here with lower back pain atraumatic x 1 days, right/left hip pain. No radiation of pain. No complaints of abdominal pain, chest pain, shortness of breath, vomiting, diarrhea, urinary changes, fevers, chills, numbness/tingling/weakness in extremities. No reports of incontinence. Did not take any OTC medications today. Arrives ambulatory. Related Data Home Medications ?Medication ?Instructions ?Recorded ?Confirmed benztropine 0.5 mg tablet 0.5 mg PO BID 04/29/22 02/21/25 clozapine 100 mg tablet 100 mg PO TID 05/12/22 02/21/25 Previous Rx's ?Medication ?Instructions ?Recorded blood-glucose meter (FreeStyle #1 ea 03/27/23 Lite Meter kit) cholecalciferol (vitamin D3) 25 25 mcg PO DAILY #90 caps 12/21/23 mcg (1,000 unit) capsule ketoconazole 2 % topical cream 1 appl topical DAILY #30 grams 01/01/24 bisacodyl 5 mg tablet,delayed 10 mg (2 x 5 mg) PO BID #90 tabs 01/02/24 release Held on 01/11/24. 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 specialist,cont #1 ea 10/09/24 (FreeStyle Jody 3 Henning) gabapentin 300 mg capsule 300 mg PO BEDTIME 90 days #90 caps 11/01/24 furosemide 20 mg tablet 20 mg PO DAILY #90 tabs 11/10/24 salicylic acid 17 % topical liquid 1 appl topical .every 2 weeks #9 mL 12/10/24 (Wart Remover) atorvastatin 10 mg tablet 10 mg PO DAILY #90 tabs 12/14/24 blood-glucose sensor (FreeStyle #2 ea 01/16/25 Jody 3 Plus Sensor device) docusate sodium 100 mg capsule 100 mg PO BID #60 caps 01/23/25 linaclotide 290 mcg capsule 290 mcg PO QAM #30 caps 01/23/25 (Linzess) magnesium hydroxide 400 mg/5 mL 20 ml PO BEDTIME PRN constipation 01/23/25 oral suspension (Milk of Magnesia) #3,780 mL simethicone 180 mg capsule 180 mg PO TID #90 caps 01/23/25 acetaminophen 325 mg capsule 650 mg (2 x 325 mg) PO Q4H PRN 01/26/25 pain #30 caps cyclobenzaprine 10 mg tablet 10 mg PO TID PRN muscle spasm #12 01/26/25 tabs empagliflozin 25 mg tablet 25 mg PO QAM #30 tabs 01/27/25 (Jardiance) ibuprofen 800 mg tablet 800 mg PO Q8H PRN for pain 30 days 01/27/25 #90 tabs pen needle, diabetic 29 gauge x #100 ea 01/27/25 1/ methylcellulose (laxative) 500 mg 1,000 mg (2 x 500 mg) PO TID #180 01/30/25 tablet (Fiber Therapy tabs (methylcellulose)) metformin 500 mg tablet 1,000 mg (2 x 500 mg) PO BID 90 01/31/25 days #360 tabs polyethylene glycol 3350 17 17 g PO DAILY #510 grams 02/05/25 gram/dose oral powder (Miralax) Humalog KwikPen Insulin 100 12 unit (0.12 mL) subcut DAILY 30 02/06/25 unit/mL subcutaneous (insulin days #6 mL lispro) Tresiba FlexTouch U-200 200 58 unit (0.29 mL) subcut DAILY 90 02/20/25 unit/mL (3 mL) subcutaneous pen days #27 mL (insulin degludec) acetaminophen 500 mg tablet 1,000 mg (2 x 500 mg) PO Q6-8H PRN 02/21/25 pain #30 tabs sildenafil 50 mg tablet 50 mg PO DAILY PRN sexual activity 02/21/25 #30 tabs cetirizine 10 mg tablet (Zyrtec) 10 mg PO DAILY #30 tabs 02/24/25 metoclopramide HCl 10 mg tablet 10 mg PO TID #90 tabs 02/26/25 lidocaine 5 % topical patch 1 patch topical DAILY #15 ea 03/02/25 (Lidoderm) Allergies Allergy/AdvReac Type Severity Reaction Status Date / Time No Known Allergies (No Known Allergy Verified 03/02/25 13:06 Allergies*) Review of Systems Neurologic: Denies Abnormal speech present [facility] Past Medical History Medical History (Updated 03/02/25 @ 14:42 by Gena Holloway NP) Acute respiratory disease Impacted cerumen, right ear Acute diarrhea Pain in both feet Calcaneal spur of right foot Achilles tendinitis Callus of foot Right hand pain Abdominal bloating Vertigo Calcaneal spur Colon cancer screening COVID-19 Pre-op examination Elevated LFTs Encounter for Medicare annual wellness exam Bowel obstruction Melena Knee pain, bilateral Gastroenteritis Healed wound Chronic idiopathic constipation Chronic idiopathic constipation Hospital discharge follow-up Knee osteoarthritis Obesity (BMI 30-39.9) Schizoaffective disorder Pure hypercholesterolemia Benign essential hypertension Chronic kidney disease (CKD), stage III (moderate) Type 2 diabetes mellitus with diabetic chronic kidney disease Morbid obesity Dyslipidemia 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 mellitus 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 Diabetic polyneuropathy associated with 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 mellitus Schizo affective schizophrenia Diabetes type 2, uncontrolled Surgical History History of repair of congenital cleft palate Hx of circumcision Family History Family History Father HTN (hypertension) Mother Diabetes Other Mental health problem Social History Social History Household Members: None Housing: Apartment Are you a primary care management assistant to a significant other at home: No Do you presently have visiting nurse or other home services: Yes Alcohol intake: former Patient Tobacco Use Status: Former Tobacco user Tobacco use type: Cigarette Cigarettes Per Day: 15 Years Smoked: 8 quit 30 years ago e-Cigarette/Vaping Use: Never Used Second Hand Smoke Exposure: No Advance Directives: No Advance Directives Information Provided: No Do you have a plan to hurt others: No Plan service: No Current occupational status: employed Current occupation: [employer] Cognitive needs: No Hearing needs: No Vision needs: Yes (glasses) Physical Exam Vital Signs: Vital Signs: Last Vital Signs Temp 97.5 F 03/02/25 13:03 Pulse 92 03/02/25 13:03 Resp 16 03/02/25 13:03 BP 114/80 03/02/25 13:03 Pulse Ox 97 03/02/25 13:03 O2 Del Method Room Air 03/02/25 13:03 BMI result Body Mass Index 36.7 Const: General: cooperative, healthy appearing, comfortable and no acute distress Orientation/consciousness: patient oriented x3 Limitations: no limitations HEENT: Head: Yes normal to inspection Ears: hearing grossly normal bilaterally General nose exam: Normal external nose present Face and sinus: Yes normal facial exam Mouth: Normal oral and palatal mucosa present Throat: Yes posterior oropharynx normal Eyes: General: appearance normal, both eyes and all related structures Pupils: Equal, round and reactive pupils present Neck: Neck: Yes normal visual inspection Chest: Chest palpation & inspection: normal inspection of the chest Resp: Effort & Inspection: normal respiratory effort Auscultation: clear to auscultation bilaterally Cardio: Rate: regular rate Rhythm: regular rhythm Peripheral pulses: Peripheral pulses 2+ throughout GI: Inspection: Yes normal to inspection Palpation (GI): Soft to palpation and nontender Auscultation: normal bowel sounds : General: Yes no CVA tenderness Back/Spine/Pelvis: Other: Tenderness the lumbar soft tissue with no midline tenderness, step-offs or deformities Back: no CVA tenderness Thoracic/Lumbar Spine: thoracic and lumbar spine normal to inspection Skin: General skin exam: no rashes or lesions noted Neuro: General: patient oriented x3, moves all extremities, no focal motor deficits and normal sensation to monofilament Cranial nerves: Yes Equal, round and reactive pupils present Cognition (Neuro): normal cognition Speech: No Abnormal speech present Gait exam (Neuro): Normal gait present Motor exam (neuro): 5/5 motor strength present throughout Deep tendon reflexes (DTR's): Right patellar reflex intensity grade: 2+ and Left patellar reflex intensity grade: 2+ Extrem: General: Yes normal to inspection Course Course Course Narrative: Gena Holloway HOME CARE LIAISON 03/02 1978 This is a rapid medical exam. Deferred additional HPI, ROS, PE to primary provider. 64 yo male here with complaints of lower back pain/right sided hip pain which began today. No injury or trauma. Will check x-rays VSS Medical Decision Making Medical Decision Making MDM Narrative: 64-year-old male with pmhx significant for DM, HLD, CKD, HTN, hypercholesterolemia here with lower back pain atraumatic x 1 days, right/left hip pain. No radiation of pain. No complaints of abdominal pain, chest pain, shortness of breath, vomiting, diarrhea, urinary changes, fevers, chills, numbness/tingling/weakness in extremities. No reports of incontinence. Did not take any OTC medications today. Arrives ambulatory. TTP over lumbar soft tissue area with no CVAT, no midline tenderness/step offs or deformities. Full active/passive ROM hips. No neuro deficits or red flag symptoms Differential Diagnosis Differential Diagnoses: The differential diagnosis associated with the presentation includes Lumbar radiculopathy, lumbar strain, herniated disc Low suspicion for epidural abscess with no risk factors of same, no neurological deficits or red flag symptoms Low suspicion for ACS with no reports of chest pain, shortness of breath, diaphoresis or vomiting Low suspicion for pyelonephritis or renal colic with no CVA tenderness, urinary symptoms reported Low suspicion for malignancy with no red flag symptoms, more acute onset Low suspicion for cord compression, cauda equina with normal neurological exam and no red flag symptoms Admission/Observation Consideration of admission/observation: Escalation of care including admission/observation considered No neuro deficits or red flag symptoms to suggest need for emergent MRI, urgent NSY and or admission Independent Interpretation I performed an independent interpretation of an: Plain X-Ray Interpretation: I independently viewed the x-ray and agree with the radiology report Radiology Impression Discussion of test interpretation with radiology: I have reviewed the radiologist's reading. Radiologist Impression: [address] [address] XRay Report Signed Patient: Mike Cornejo MR#: [id number] : 1960 Acct:[id number] Age/Sex: 64 / M ADM Date: 03/02/25 Loc: HO.ED Attending Dr: Ordering Physician: Gena Holloway NP Date of Service: 03/02/25 Procedure(s): XR hip RT w PEL1V Accession Number(s): [id number] cc: Luis Manuel Garcia MD; Gena Holloway NP~ CLINICAL HISTORY: pain, no injury AP pelvis, Two views of the right hip. COMPARISON: XR pelvis and left hip dated 10/26/23 at 20:49 EDT FINDINGS: Pelvic ring appears intact. Degenerative changes of the partially visualized lower lumbar spine. Visualized portions of the contralateral left hip appear intact. Right hip: Visualized portions of the proximal right femur appears intact. No trabecular disruption or cortical discontinuity. Femoral head is appropriately seated in the acetabulum. Decreased right hip joint space along the superior margin. Tiny osteophytes present along the greater trochanter and femoral head. IMPRESSION: 1. No radiographic evidence of acute injury to the pelvis and right hip. Mild degenerative changes of the right hip. [place] [address] XRay Report Signed Patient: Mike Cornejo MR#: [id number] : 1960 Acct:[id number] Age/Sex: 64 / M ADM Date: 03/02/25 Loc: HO.ED Attending Dr: Ordering Physician: Gena Holloway NP Date of Service: 03/02/25 Procedure(s): XR hip LT min 2V Accession Number(s): [id number] cc: Luis Manuel Garcia MD; Gena Holloway NP~ CLINICAL HISTORY: pain, no trauma Two views of the left hip. COMPARISON: XR pelvis and left hip dated 10/26/23 at 20:49 EDT FINDINGS: Visualized portions of the proximal left femur appears intact. No trabecular disruption or cortical discontinuity. Femoral head is appropriately seated in the acetabulum. Small osteophytes present along the inferior margin of the femoral head and superior margin of the acetabulum. Visualized portions of the pelvis appear intact. IMPRESSION: 1. No radiographic evidence of acute injury to the left hip. 2. Mild degenerative changes of the left hip. This document has been electronically signed by: Aaron Frederick MD on 03/02/2025 14:12:[address] [address] XRay Report Signed Patient: Mike Cornejo MR#: [id number] : 1960 Acct:[id number] Age/Sex: 64 / M ADM Date: 03/02/25 Loc: HO.ED Attending Dr: Ordering Physician: Gena Holloway NP Date of Service: 03/02/25 Procedure(s): XR lumbar spine 2-3V Accession Number(s): [id number] cc: Luis Manuel Garcia MD; Gena Holloway NP~ CLINICAL HISTORY: pain, no injury Three views of the lumbar spine. COMPARISON: None provided. FINDINGS: Five [id number]-iwomhak lumbar type vertebral bodies. Normal vertebral body alignment. Vertebral body heights are maintained. No evidence of acute vertebral body injury. Facet joint arthrosis present throughout the lumbar spine. Mild loss of disc space height at L5-S1. Prominent marginal osteophytes along the lower thoracic and upper lumbar spine. Visualized portions of the bones of the pelvis appear intact. IMPRESSION: 1. No radiographic evidence of acute injury to the lumbar spine. 2. Moderate multilevel lumbar spondylosis. Prescription Management I considered prescription management with: Pain Medication Discharge Plan Discharge Clinical Impression: Back pain, Arthritis of left hip, Arthritis of right hip Patient Disposition: Home, Self-Care Instructions: Osteoarthritis (ED), Back Pain (ED) Additional Instructions: Your x-ray shows arthritis in your back and hips Alternate Motrin/Tylenol for pain Follow-up with your primary care doctor as this is her 2nd visit for this complaint Prescriptions: New lidocaine [Lidoderm] 5 % adhesive patch,medicated 1 patch topical DAILY Qty: 15 0RF Rx Instructions: leave on most painful area for up to 12 hrs No Action (DME) blood-glucose meter [FreeStyle Lite Meter] Kit See Rx Instructions .Route Qty: 1 5RF Rx Instructions: Tests 4 X/day cholecalciferol (vitamin D3) 25 mcg (1,000 unit) capsule 25 mcg PO DAILY Qty: 90 12RF bisacodyl 5 mg tablet,delayed release (DR/EC) 10 mg PO BID Qty: 90 0RF (DME) lancets [FreeStyle Lancets] 28 gauge misc See Rx Instructions .Route Qty: 100 4RF Rx Instructions: Tests 5x/day (DME) FreeStyle Lite Strips Strip See Rx Instructions .Route Qty: 100 5RF Rx Instructions: Tests 5X/day glycerin (adult) Suppository 2 supp OR .after shower Qty: 25 6RF (DME) blood-glucose meter [FreeStyle Lite Meter] Kit See Rx Instructions .ROUTE .MEDSUPPLY Qty: 1 0RF Rx Instructions: As directed (DME) FreeStyle Jody 3 Henning Misc See Rx Instructions .ROUTE .MEDSUPPLY Qty: 1 0RF Rx Instructions: As directed for use with freestyle jody 3+ sensor gabapentin 300 mg capsule 300 mg PO BEDTIME 90 Days Qty: 90 1RF furosemide 20 mg tablet 20 mg PO DAILY Qty: 90 1RF atorvastatin 10 mg tablet 10 mg PO DAILY Qty: 90 0RF (DME) pen needle, diabetic 29 gauge x 1/2 needle See Rx Instructions .ROUTE DAILY Qty: 100 3RF Rx Instructions: As directed daily Jardiance 25 mg tablet 25 mg PO QAM Qty: 30 3RF ibuprofen 800 mg tablet 800 mg PO Q8H PRN (Reason: for pain) 30 Days Qty: 90 0RF Rx Instructions: take with food Fiber Therapy (m-cellulose) 500 mg tablet 1,000 mg PO TID Qty: 180 6RF metformin 500 mg tablet 1,000 mg PO BID 90 Days Qty: 360 1RF Tresiba FlexTouch U-200 200 unit/mL (3 mL) insulin pen 58 unit subcut DAILY 90 Days Qty: 27 3RF metoclopramide HCl 10 mg tablet 10 mg PO TID Qty: 90 0RF benztropine 0.5 mg tablet 0.5 mg PO BID acetaminophen 325 mg capsule 650 mg PO Q4H PRN (Reason: pain) Qty: 30 0RF cyclobenzaprine 10 mg tablet 10 mg PO TID PRN (Reason: muscle spasm) Qty: 12 0RF polyethylene glycol 3350 [Miralax] 17 gram/dose powder 17 g PO DAILY Qty: 510 0RF ketoconazole 2 % cream 1 appl topical DAILY Qty: 30 0RF lidocaine 5 % adhesive patch,medicated 1 patch topical DAILY Qty: 15 0RF Rx Instructions: leave on most painful area for up to 12 hrs clozapine 100 mg tablet 100 mg PO TID acetaminophen 500 mg tablet 1,000 mg PO Q6-8H PRN (Reason: pain) Qty: 30 1RF sildenafil 50 mg tablet 50 mg PO DAILY PRN (Reason: sexual activity) Qty: 30 0RF Rx Instructions: administer 30 minutes to 4 hours before activity docusate sodium 100 mg capsule 100 mg PO BID Qty: 60 6RF Linzess 290 mcg capsule 290 mcg PO QAM Qty: 30 6RF magnesium hydroxide [Milk of Magnesia] 400 mg/5 mL suspension 20 ml PO BEDTIME PRN (Reason: constipation) Qty: 3780 6RF simethicone 180 mg capsule 180 mg PO TID Qty: 90 6RF Wart Remover 17 % liquid 1 appl topical .every 2 weeks Qty: 9 0RF Rx Instructions: Apply to wart only, repeat in 2 weeks if no improvement. Do not use more than 4 treatments. (DME) Janrain Jody 3 Plus Sensor Device See Rx Instructions .ROUTE .MEDSUPPLY Qty: 2 11RF Rx Instructions: every 15 days for continuous use guaifenesin 200 mg/5 mL liquid 400 mg PO Q6H PRN (Reason: cough) Qty: 118 0RF insulin lispro [Humalog KwikPen Insulin] 100 unit/mL insulin pen 12 unit subcut DAILY 30 Days Qty: 6 6RF Rx Instructions: with the largest meal of the day cetirizine [Zyrtec] 10 mg tablet 10 mg PO DAILY Qty: 30 0RF Referrals: Luis Manuel Garcia MD [Primary Care Provider, Internal Medicine] Print Language: Tristanian
== END 2025-03-02 14:59 | disposition home or self-care (01) ==
PROVIDERS: Emergency Provider Emergency Medicine; PCP Internal Medicine
DX: M54.50 Low back pain, unspecified (principal); M25.551 Pain in right hip; M25.552 Pain in left hip
CPT/HCPCS: 72100; 73502; 99281; 99283

== ENCOUNTER → 2025-03-02 13:06 | Outpatient (BNV) | payer OTHER, SELFPAY | PROVIDERS: Emergency Provider Emergency Medicine; PCP Internal Medicine; Visit Provider Radiology Diagnostic Radiology | DX: M47.26 Other spondylosis with radiculopathy, lumbar region (principal); M16.0 Bilateral primary osteoarthritis of hip | CPT/HCPCS: 72100; 73502 ==

== ENCOUNTER 2025-03-05 08:37 | Outpatient (AMB) | payer OTHER, SELFPAY ==
--- NOTE | 2025-03-05 08:45 | A.OFFPC_ITS ---
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,patients transporter,cont (FreeStyle Jody 3 [facility]) As directed for use with freestyle jody 3+ sensor cetirizine (Zyrtec) 10 mg PO DAILY cholecalciferol (vitamin D3) 25 mcg PO DAILY clozapine 100 mg PO TID cyclobenzaprine 10 mg PO TID PRN docusate sodium 100 mg PO BID empagliflozin (Jardiance) 25 mg PO QAM furosemide 20 mg PO DAILY gabapentin 300 mg PO BEDTIME 90 days glycerin (adult) 2 supp MS .after shower guaifenesin 400 mg (10 mL) PO Q6H PRN Humalog KwikPen Insulin (insulin lispro) 12 units (0.12 mL) subcut DAILY 30 days NS ibuprofen 800 mg PO Q8H PRN 30 days ketoconazole 2% 1 appl topical DAILY lancets (FreeStyle Lancets) Tests 5x/day lidocaine 5% (Lidoderm) 1 patch topical DAILY lidocaine 5% 1 patch topical DAILY linaclotide (Linzess) 290 mcg PO QAM magnesium hydroxide (Milk of Magnesia) 20 mL PO BEDTIME PRN metformin 1,000 mg (2 x 500 mg) PO BID 90 days methylcellulose (laxative) (Fiber Therapy (methylcellulose)) 1,000 mg (2 x 500 mg) PO TID metoclopramide HCl 10 mg PO TID pen needle, diabetic As directed daily polyethylene glycol 3350 (Miralax) 17 grams PO DAILY salicylic acid 17% (Wart Remover) 1 appl topical .every 2 weeks sildenafil 50 mg PO DAILY PRN simethicone 180 mg PO TID Tresiba FlexTouch U-200 (insulin degludec) 58 units (0.29 mL) subcut DAILY 90 days NS Tobacco use date assessed: 03/05/25 Dental Screening Dental Screen Date: 03/05/25 Did you have a dental visit in the last 12 months?: Yes Did you have a dental problem in the last 6 months where you did not have access to dental care?: No Was dental information given to patient?: Patient has dentist HPI [facility] 03/02 Back Pain Can Barely Walk HPI Details The patient is a 64-year-old male presenting for follow for [facility] ER arthritis of back and bilateral hips, he also has concerns of fungal rash, erectile dysfunction, and urinary difficulty. The patient reports chronic arthritis affecting his back and hips, which has been present for an extended period. He experiences soreness, particularly after physical exertion, such as working at [employer] where he is on his feet all day. The condition has been managed with ibuprofen alternating with Tylenol and occasional use of gabapentin at night. A burning rash was noted on the patient's left groin, which he observed a few days ago. The rash is described as having a fishy odor, consistent with a fungal infection, and the patient has previously used ketoconazole cream for similar issues. The patient also reports erectile dysfunction, for which he has been prescribed Viagra, although he finds it ineffective. He was advised to manage his weight and control his diabetes to improve the efficacy of the medication. Additionally, the patient experiences difficulty with urination, specifically in locating his penis, although he can urinate once found. [facility] Medical History Acute respiratory disease Impacted cerumen, right ear Acute diarrhea Pain in both feet Calcaneal spur of right foot Achilles tendinitis Callus of foot Right hand pain Abdominal bloating Vertigo Calcaneal spur Colon cancer screening COVID-19 Pre-op examination Elevated LFTs Encounter for Medicare annual wellness exam Bowel obstruction Melena Knee pain, bilateral Gastroenteritis Healed wound Chronic idiopathic constipation Chronic idiopathic constipation Hospital discharge follow-up Knee osteoarthritis Obesity (BMI 30-39.9) Schizoaffective disorder Pure hypercholesterolemia Benign essential hypertension Chronic kidney disease (CKD), stage III (moderate) Type 2 diabetes mellitus with diabetic chronic kidney disease Morbid obesity Dyslipidemia 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 mellitus 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 Diabetic polyneuropathy associated with 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 mellitus Schizo affective schizophrenia Diabetes type 2, uncontrolled Surgical History History of repair of congenital cleft palate Hx of circumcision Family History Father HTN (hypertension) Mother Diabetes Other Mental health problem Social History Household Members: None Housing: Apartment Are you a primary patient care nursing assistant to a significant other at home: No Do you presently have visiting nurse or other home services: Yes Alcohol intake: former Patient Tobacco Use Status: Former Tobacco user Tobacco use type: Cigarette Cigarettes Per Day: 15 Years Smoked: 8 quit 30 years ago e-Cigarette/Vaping Use: Never Used Second Hand Smoke Exposure: No service: No Current occupational status: employed Current occupation: [employer] Cognitive needs: No Hearing needs: No Vision needs: Yes (glasses) Questionnaire PHQ-9 Over the last 2 weeks, how often have you been bothered by any of the following problems? 1. Little interest or pleasure in doing things: not at all 2. Feeling down, depressed, or hopeless: not at all 3. Trouble falling or staying asleep, or sleeping too much: not at all 4. Feeling tired or having little energy: not at all 5. Poor appetite or overeating: not at all 6. Feeling bad about yourself - or that you are a failure or have let yourself or your family down: not at all 7. Trouble concentrating on things, such as reading the newspaper or watching television: not at all 8. Moving or speaking so slowly that other people could have noticed. Or the opposite - being so fidgety or restless that you have been moving around a lot more than usual: not at all 9. Thoughts that you would be better off or of hurting yourself in some way: not at all Total score: 0 Depression Screening Interpretation: Negative Depression Screening Done: Yes Source: Developed by Drs. Foster Queen, Shahla Vo, Lambert Sanchez and colleagues, with an educational german from [employer]. Thrive Questionnaire Date Thrive assessed: 03/05/25 I am a: Patient What is your living situation today?: I choose not to answer this question Within the past 12 months, did the food you bought not last and you didn't have the money to get more?: I choose not to answer this question Within the past 12 months, did you worry whether your food would run out before you got money to buy more?: I choose not to answer this question Do you have trouble paying for medicines?: No Do you have trouble getting transportation to medical appointments?: No Do you have trouble paying your heating and electricity bill?: No Do you have trouble taking care of your child, family member or friend?: No Do you have trouble with day-to-day activities such as bathing, preparing meals, shopping, managing finances, etc.?: No Are you currently unemployed and looking for a job?: No Are you interested in more education?: No Please select the resources that you would like help with: None Currently or been in a relationship where the following occur: I choose not to answer THRIVE Score: 0 AUDIT C Alcohol Use Questionnaire (AUDIT-C) 1. How often do you have a drink containing alcohol?: Never Total Score: 0 KENDRA-7 AMB Questionnaire KENDRA-7 Date KENDRA - 7 assessed: 03/05/25 Feeling nervous, anxious, or on edge: 0 = Not at all Not being able to stop or control worryin = Not at all Worrying too much about different things: 0 = Not at all Trouble relaxin = Not at all Being so restless that it is hard to sit still: 0 = Not at all Becoming easily annoyed or irritable: 0 = Not at all Feeling afraid as if something awful might happen: 0 = Not at all Total KENDRA-7 score (0-4 normal; 5-9 mild; 10-14 moderate; 15-21 severe): 0 Source: Developed by Drs. Foster Queen, Shahla Vo, Lambert Sanchez and colleagues, with an educational german from [employer]. Review of Systems Const Denies body aches, Denies chills, Denies fever(s), Denies headache(s) and Denies poor appetite Eyes Reports no additional complaints ENT Denies dysphagia, Denies dizziness, Denies headache(s) and Denies odynophagia Card Denies chest pain, Denies syncope, Denies edema, Denies irregular heart rhythm, Denies lightheadedness and Denies dyspnea Resp Denies cough and Denies dyspnea GI Denies abdominal pain, Denies constipation, Denies dysphagia, Denies diarrhea, Denies nausea, Denies odynophagia and Denies vomiting Reports erectile dysfunction and Reports other (difficulty in locating his penis) Musc Denies abnormal gait, Reports back pain and Reports arthralgias (bilateral hip pain) Skin/Breast Reports rash (left groin ) Neuro Denies abnormal gait, Denies dizziness, Denies syncope and Denies headache(s) Psych Reports no additional complaints Physical exam (Primary Care) Vital Signs: Last Vital Signs BP 112/80 03/05/25 08:47 Oxygen Delivery Method Room Air 03/05/25 08:47 BMI result Body Mass Index 36.5 Tobacco/Smoking Status: Tobacco use Status Tobacco use date assessed 03/05/25 03/05/25 08:47 Patient Tobacco Use Status Former Tobacco user 03/05/25 08:47 Tobacco use type Cigarette 03/05/25 08:47 e-Cigarette/Vaping Use Never Used 03/05/25 08:47 PHQ-9: PHQ-9 Score PHQ-9: Total score 0 03/05/25 08:54 Depression Screening Interpretation: Negative Thrive Assessment: Date of Thrive Assessment Date Thrive assessed 03/05/25 03/05/25 08:47 Currently or been in a relationship where the following occur: I choose not to answer Const General: cooperative, healthy appearing, comfortable and no acute distress Orientation/consciousness: patient oriented x3 HENMT Head: Yes normocephalic Ears: hearing grossly normal bilaterally General nose exam: Normal external nose present Eyes General: appearance normal, both eyes and all related structures Conjunctivae: conjunctivae normal Neck Neck: Yes full ROM and Yes no lymphadenopathy Resp Effort & Inspection: normal respiratory effort Auscultation: clear to auscultation bilaterally, no crackles, no rales, no rhonchi and no wheezes Cardio Rate: regular rate Rhythm: regular rhythm Heart sounds: S1 normal heart sound present, S2 normal heart sound present and no murmurs GI Palpation (GI): Soft to palpation and nontender Auscultation: normal bowel sounds General: Yes no CVA tenderness Back/Spine/Pelvis Back: no CVA tenderness Thoracic/Lumbar Spine: No lumbar spinal tenderness Skin Rashes: rashes noted (left groin fungal appearing rash ) Neuro General: patient oriented x3 Gait exam (Neuro): Normal gait present Extrem General: Yes normal to inspection, Yes full ROM and No edema Right lower extremity: hip/thigh Details: normal ROM; no tenderness and no swelling Left lower extremity: hip/thigh Details: normal ROM; no tenderness and no swelling Psych Affect: normal affect Attitude: cooperative Insight: Good insight present (Psych) Judgement: Good judgement present (Psych) Coding Level of Care Code Est Pt Level 3 (10323) Diagnoses Bilateral hip joint arthritis M16.0 Lumbar spondylolysis M43.06 Tinea cruris B35.6 Difficulty urinating R39.198 Time Spent (min) 36 Assessment & Plan Assessment & Plan (1) Bilateral hip joint arthritis: Code(s): M16.0 - Bilateral primary osteoarthritis of hip Category: Medical (2) Lumbar spondylolysis: Code(s): M43.06 - Spondylolysis, lumbar region Category: Medical (3) Tinea cruris: Code(s): B35.6 - Tinea cruris Category: Medical (4) Difficulty urinating: Code(s): R39.198 - Other difficulties with micturition Category: Medical Plan The patient will continue to manage arthritis with ibuprofen alternating with tylenol and gabapentin as needed, with consideration for referral to orthopedics or pain management if symptoms worsen. For the fungal rash, ketoconazole cream will be reordered, and the patient is advised to apply it as directed. Regarding erectile dysfunction, the patient is encouraged to manage weight and diabetes to enhance the effectiveness of Viagra. The patient is advised to monitor urinary symptoms and report any changes. Patient was informed and verbally consented to the use of an ambient scribe for clinic note documentation during this visit. Medications: Refilled ketoconazole 2% 1 appl topical DAILY 30 grams 3RF
[2025-03-05 08:47] VITALS: BP 112/80; PULSE 96; RESP 18; TEMP 36.3; O2SAT 97; BMI 36.5
--- OUTSIDE RECORDS SUMMARY | 2025-03-05 08:53 | XMS_ITS | Patient Health Record ---
[facility] Address [address] [place] [address] Care Team Providers Care Specialty Therapist Name Role Phone Jose RENAE, Luis Manuel Primary Care Provider Unava Tu Frederick Unavailable [phone] Allergies No Known Allergies Results Component Value [...] Problem Acquired hammer toe of right foot (510092790477416 5) Other hammer toe(s) (acquired), right foot (M20.41) Active confirmed Problem Plantar fascial fibromatosis (14770879) Plantar fascial fibromatosis (M72.2) Active confirmed Problem Acquired hammer toe of left foot (743578371200906 3) Other hammer toe(s) (acquired), left foot (M20.42) Active confirmed Problem Type II diabetes mellitus without complication (566958791) Type 2 diabetes mellitus without complication (E11.9) Active confirmed Vital Signs Blood pressure diastolic 80 mm Hg 08/30/2024 Height 6ft in 08/30/2024 Blood pressure systolic 130 mm Hg 08/30/2024 Weight 270 lbs 08/30/2024 BMI 36.61 kg/m2 08/30/2024 Procedures Procedure Date Ordered Date Performed Result Body Sit e 87116-EPCYEGO NAIL, 6 OR MORE 03/08/2024 N/A 34672-Komeqcez Plate 03/08/2024 N/A 04811-TJIA SKIN LESIONS, 2 TO 4 03/08/2024 N/A 04395-PQYBJQZ NAIL, 6 OR MORE 06/21/2024 N/A 07119-HDXG SKIN LESIONS, 2 TO 4 06/21/2024 N/A 39413-EDAOASE NAIL, 6 OR MORE 08/30/2024 N/A 56633-LQKH SKIN LESIONS, 2 TO 4 08/30/2024 N/A Encounters Encounter Location Date Provider Diagnosis [facility] [place] [address] [place] [address] 03/08/2024 Tu Pierre Tinea unguium B35.1 ; [...] without complication E11.9 and Ingrown nail L60.[address] [address] 06/21/2024 Tu Pierre Tinea unguium B35.1 ; Pain in right toe(s) M79.674 ; Pain in left toe(s) M79.675 ; Achilles tendinitis of right lower extremity M76.61 and Type 2 diabetes mellitus without complication E11.[address] [facility] [address] 08/30/2024 Tuwilliam Pierre Pain in right toe(s) M79.674 ; Tinea unguium B35.1 ; Pain in left toe(s) M79.675 ; Type 2 diabetes mellitus without complication E11.9 ; Other hammer toe(s) (acquired), right foot M20.41 and Other hammer toe(s) (acquired), left foot M20.[address] [address] 04/17/2024 Tu Pierre [facility] [address] 09/03/2024 Tu Pierre [address] [address] 10/01/2024 Tu Pierre [address] [address] 12/06/2024 Tu Pierre Plantar fascial fibromatosis M72.2 [...] X ray : Foot, right 3V 03/08/2024 44107-TQLECEW NAIL, 6 OR MORE 03/08/2024 13375-FAKTHZL NAIL, 6 OR MORE 06/21/2024 49311-EHNUUSF NAIL, 6 OR MORE 08/30/2024 22562-Czjlfjuc Plate 03/08/2024 51432-GDUZ SKIN LESIONS, 2 TO 4 03/08/20 24 00520-DDXX SKIN LESIONS, 2 TO 4 08/30/19 25 96831-LGMQ SKIN LESIONS, 2 TO 4 06/21/20 24 Insurance Providers Payer Name Payer Address Payer Phone Subscriber Number Group Number Insured Name Patient Relationship to Insured Coverage Start Date Coverage End Date [facility] [employer] Claims [address] [place] [phone] [id number] Mike Cornjeo Self - patient is the insured Medical (General) History Medical History History ICD Code Diabetic Surgical History Surgery Date(Month/Year)
== END 2025-03-05 09:36 | disposition home or self-care (01) ==
LOC: HO.HMCH 08:37
PROVIDERS: PCP Internal Medicine
DX: M16.0 Bilateral primary osteoarthritis of hip (principal); M43.06 Spondylolysis, lumbar region; B35.6 Tinea cruris; R39.198 Other difficulties with micturition

== ENCOUNTER → 2025-03-05 08:37 | Outpatient (BNVA) | payer OTHER, SELFPAY | PROVIDERS: PCP Internal Medicine | DX: M16.0 Bilateral primary osteoarthritis of hip (principal); M43.06 Spondylolysis, lumbar region; B35.6 Tinea cruris; R39.198 Other difficulties with micturition; N52.9 Male erectile dysfunction, unspecified; Z13.31 Encounter for screening for depression; Z13.39 Encounter for screening examination for other mental health and behavioral disorders | CPT/HCPCS: 96127; 99212 ==

== ENCOUNTER 2025-03-17 11:07 | Outpatient (REF) | payer OTHER, SELFPAY ==
--- OUTSIDE RECORDS SUMMARY | 2025-03-17 12:07 | XMS_ITS | Patient Health Record ---
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 Phone Jose RENAE, Luis Manuel Primary Care Provider UnaTu Paul Unavailable [phone] Allergies No Known Allergies Results Component Value [...] Problem Acquired hammer toe of right foot (733178645791465 5) Other hammer toe(s) (acquired), right foot (M20.41) Active confirmed Problem Plantar fascial fibromatosis (51427554) Plantar fascial fibromatosis (M72.2) Active confirmed Problem Acquired hammer toe of left foot (085985612275803 3) Other hammer toe(s) (acquired), left foot (M20.42) Active confirmed Problem Type 2 diabetes mellitus without complication (E11.9) Active confirmed Vital Signs Blood pressure diastolic 80 mm Hg 08/30/2024 Height 6ft in 08/30/2024 Blood pressure systolic 130 mm Hg 08/30/2024 Weight 270 lbs 08/30/2024 BMI 36.61 kg/m2 08/30/2024 Procedures Procedure Date Ordered Date Performed Result Body Sit e 48781-ORKZNQR NAIL, 6 OR MORE 06/21/2024 N/A 74929-VYXA SKIN LESIONS, 2 TO 4 06/21/2024 N/A 08775-MOLVGUA NAIL, 6 OR MORE 08/30/2024 N/A 04192-PUZV SKIN LESIONS, 2 TO 4 08/30/2024 N/A Encounters Encounter Location Date Provider Diagnosis [address] [address] 06/21/2024 Tu Gabby Tinea unguium B35.1 ; Pain in right toe(s) M79.674 ; Pain in left toe(s) M79.675 ; Achilles tendinitis of right lower extremity M76.61 and Type 2 diabetes mellitus without complication E11.[address] [address] 08/30/2024 Tu Gabby Pain in right toe(s) M79.674 ; Tinea unguium B35.1 ; Pain in left toe(s) M79.675 ; Type 2 diabetes mellitus without complication E11.9 ; Other hammer toe(s) (acquired), right foot M20.41 and Other hammer toe(s) (acquired), left foot M20.42 [facility] [address] [address] 04/17/2024 Tu Gabby [facility] [address] [address] 09/03/2024 Tu Pierre [facility] [address] 10/01/2024 Tuwilliam Pierre [facility] [address] 12/06/2024 Tu Pierre Plantar fascial fibromatosis M72.2 [...] foot (ICD-10 - M20.42) Plan Of Treatment Pending Test Test Name Order Date X ray : Foot, right 3V 03/08/2024 51652-GMGZYVW NAIL, 6 OR MORE 03/08/2024 32935-SWSEUNU NAIL, 6 OR MORE 06/21/2024 17964-LWPIOUE NAIL, 6 OR MORE 08/30/2024 66315-Jixejyla Plate 03/08/2024 80830-YTDY SKIN LESIONS, 2 TO 4 03/08/20 24 98575-NPCJ SKIN LESIONS, 2 TO 4 08/30/19 25 68539-BLPV SKIN LESIONS, 2 TO 4 06/21/20 24 Insurance Providers Payer Name Payer Address Payer Phone Subscriber Number Group Number Insured Name Patient Relationship to Insured Coverage Start Date Coverage End Date [facility] [employer] Claims [address] [place] [phone] [id number] Mike Cornejo Self - patient is the insured Medical (General) History Medical History History ICD Code Diabetic Surgical History Surgery Date(Month/Year)
[2025-03-17 13:40] LABS: MANUAL DIFF FLAG NO
[2025-03-17 13:50] LABS: Hematocrit 43.5 % (42.0-52.0); Hemoglobin 14.8 g/dl (14.0-18.0); Imm Gran Abs Auto 0.03 X10*3/uL (0.00-0.03); Imm Gran Pct Auto 0.5 % (0.0-0.4); Lymphocytes Absolute Auto 1.3 X10*3/uL (1.2-4.9); Mean Corpuscular HGB Conc 34.0 g/dl (31.0-36.0); Mean Corpuscular Hemoglobin 29.4 pg (27.0-33.0); Mean Corpuscular Volume 86.3 fL (80.0-98.0); NRBC Abs Auto 0.000 X10*3/uL (0.0-0.012); NRBC Pct Auto 0.0 /100WBC (0.0-0.2); Platelet Count 119 X10*3/uL (160-400); Red Blood Count 5.04 X10*6/uL (4.60-5.80); White Blood Count 6.0 X10*3/uL (4.8-10.8)
== END 2025-03-17 11:08 | disposition home or self-care (01) ==
LOC: HO.HMGCLDS 11:07
PROVIDERS: PCP Internal Medicine; Visit Provider Psychiatry & Neurology Psychiatry
DX: N39.498 Other specified urinary incontinence (principal); Z13.9 Encounter for screening, unspecified; N39.0 Urinary tract infection, site not specified; Z79.899 Other long term (current) drug therapy
CPT/HCPCS: 36415; 81003; 85025; 87086; 99212

== ENCOUNTER 2025-03-17 14:03 | Outpatient (AMB) | payer OTHER, SELFPAY ==
[2025-03-17 14:17] VITALS: BP 108/76; PULSE 84; TEMP 36.4; O2SAT 96; BMI 36.7
--- NOTE | 2025-03-17 14:17 | MHC.OFFWIV ---
Intake Vital Signs 03/17/25 14:17 Height 6 ft 1 in Weight 278 lb 2 oz BMI 36.7 BP 108/76 Blood Pressure Location Rt brachial Position Sitting Pulse 84 Pulse Source Pulse Oximeter Temp 97.5 F Temp Source Oral Pulse Oximetry (%) 96 Oxygen Delivery Method Room Air Intake Visit Reasons: EP-penis issues Intake Note: presents with concern of not being able to locate his penis to use bathroom. 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 - Reports difficulty locating his penis, leading to urinary dribbling and complaints of urine odor from others. - Describes the urine stream as splitting, causing urine to go in multiple directions. - No associated pain, burning, or hematuria reported. - Has not consulted a urologist previously for these issues. - Prescribed medication for erectile dysfunction by primary care physician, but reports no improvement with the current dosage. - He denies dysuria, hematuria, penile discharge, abd pain, back pain, or rashes. Physical Exam General: Cooperative, healthy appearing, comfortable, no acute distress and well developed Orientation: Patient oriented x3 Respiratory: Normal respiratory effort and able to speak in complete sentences. Clear to auscultation bilaterally Cardiovascular: Regular rate and rhythm. Normal S1 and S2 GI: Normal to inspection. Soft to palpation and nontender Skin: No rashes or lesions noted : Penis shaft inside scrotal tissue, with retraction glans is normal. No urethral discharge noted. Patient was informed and verbally consented to the use of an ambient scribe for clinic note documentation during this visit. [facility] Medical History Acute respiratory disease Impacted cerumen, right ear Acute diarrhea Pain in both feet Calcaneal spur of right foot Achilles tendinitis Callus of foot Right hand pain Abdominal bloating Vertigo Calcaneal spur Colon cancer screening COVID-19 Pre-op examination Elevated LFTs Encounter for Medicare annual wellness exam Bowel obstruction Melena Knee pain, bilateral Gastroenteritis Healed wound Chronic idiopathic constipation Chronic idiopathic constipation Hospital discharge follow-up Knee osteoarthritis Obesity (BMI 30-39.9) Schizoaffective disorder Pure hypercholesterolemia Benign essential hypertension Chronic kidney disease (CKD), stage III (moderate) Type 2 diabetes mellitus with diabetic chronic kidney disease Morbid obesity Dyslipidemia 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 diabetes mellitus 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 Diabetic polyneuropathy associated with type 2 diabetes mellitus Schizo affective schizophrenia Diabetes type 2, uncontrolled Surgical History History of repair of congenital cleft palate Hx of circumcision Family History Father HTN (hypertension) Mother Diabetes Other Mental health problem Social History Household Members: None Housing: Apartment Are you a primary acute care assistant to a significant other at home: No Do you presently have visiting nurse or other home services: Yes Alcohol intake: former Patient Tobacco Use Status: Former Tobacco user Tobacco use type: Cigarette Cigarettes Per Day: 15 Years Smoked: 8 quit 30 years ago e-Cigarette/Vaping Use: Never Used Second Hand Smoke Exposure: No service: No Current occupational status: employed Current occupation: [employer] Cognitive needs: No Hearing needs: No Vision needs: Yes (glasses) Review of Systems Const All systems reviewed & are unremarkable except as noted in HPI and below Physical Exam Vital Signs: Last Vital Signs Temp 97.5 F 03/17/25 14:17 Pulse 84 03/17/25 14:17 BP 108/76 03/17/25 14:17 Pulse Ox 96 03/17/25 14:17 Oxygen Delivery Method Room Air 03/17/25 14:17 BMI result Body Mass Index 36.7 Assessment & Plan Assessment & Plan (1) Incontinence: Code(s): R32 - Unspecified urinary incontinence Qualifiers: Incontinence type: urinary Urinary Incontinence type: other incontinence Qualified Code(s): N39.498 - Other specified urinary incontinence Plan Most likely incontinence UA shows 3+ glu plan - will order urine culture - will refer him to urology - needs to follow up with PCP - advised him to try depends Orders: Orders Urine Culture Today N39.0 - Urinary tract infection, site not specified AMB Urinalysis Automated Today Z13.9 - Encounter for screening, unspecified Referrals Urology Referral R32 - Unspecified urinary incontinence Coding Level of Care Code Est Pt Level 3 (64801) Diagnoses Other urinary incontinence N39.498 Incontinence type: urinary Urinary Incontinence type: other incontinence
== END 2025-03-17 16:01 | disposition home or self-care (01) ==
PROVIDERS: PCP Internal Medicine; Visit Provider Physician Assistant Medical
DX: Z13.9 Encounter for screening, unspecified (principal); N39.498 Other specified urinary incontinence

== ENCOUNTER 2025-03-27 13:11 | Outpatient (AMB) | payer OTHER, SELFPAY ==
--- NOTE | 2025-03-27 13:17 | MHC.OFFVIS ---
Vital Signs 03/27/25 13:22 Height 6 ft 1 in Weight 278 lb 7.101 oz BMI 36.7 BP 96/54 L Blood Pressure Location Rt brachial Position Sitting Pulse 85 Pulse Source Pulse Oximeter Pulse Oximetry (%) 96 Oxygen Delivery Method Room Air Intake Visit Reasons: T2DM Intake Note: Patient present today to follow up on Type 2 Diabetes Mellitus. Patient receives Jody 3 plus supplies through: [employer] Last Diabetic Eye exam: 08/08/2024 [facility] Last Podiatry Visit: 08/30/2024 [facility] Random Glucose: 142 mg/dl HgA1C: 7.0% 02/06/2025 Staking Press Operator Required: No Accompanied by: Self / Same As Patient Allergies No Known Allergies (No Known Allergies*) Allergy (Verified 03/27/25 13:23) Medication List - Last Reconciled 03/27/25 by Foster Carrillo MD acetaminophen 650 mg (2 x 325 mg) PO Q4H PRN acetaminophen 1,000 mg (2 x 500 mg) PO Q6-8H PRN atorvastatin 10 mg PO DAILY benztropine 0.5 mg PO BID bisacodyl 10 mg (2 x 5 mg) PO BID Held on 01/11/24. 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,food and beverage outlets manager,cont (FreeStyle Jody 3 [place]) As directed for use with freestyle jody 3+ sensor cetirizine (Zyrtec) 10 mg PO DAILY cholecalciferol (vitamin D3) 25 mcg PO DAILY clozapine 100 mg PO TID cyclobenzaprine 10 mg PO TID PRN docusate sodium 100 mg PO BID empagliflozin (Jardiance) 25 mg PO QAM furosemide 20 mg PO DAILY gabapentin 300 mg PO BEDTIME 90 days glycerin (adult) 2 supp [place] .after shower guaifenesin 400 mg (10 mL) PO Q6H PRN Humalog KwikPen Insulin (insulin lispro) 12 units (0.12 mL) subcut DAILY 30 days NS ibuprofen 800 mg PO Q8H PRN 30 days ketoconazole 2% 1 appl topical DAILY lancets (FreeStyle Lancets) Tests 5x/day lidocaine 5% (Lidoderm) 1 patch topical DAILY lidocaine 5% 1 patch topical DAILY linaclotide (Linzess) 290 mcg PO QAM magnesium hydroxide (Milk of Magnesia) 20 mL PO BEDTIME PRN metformin 1,000 mg (2 x 500 mg) PO BID 90 days methylcellulose (laxative) (Fiber Therapy (methylcellulose)) 1,000 mg (2 x 500 mg) PO TID metoclopramide HCl 10 mg PO TID pen needle, diabetic As directed daily polyethylene glycol 3350 (Miralax) 17 grams PO DAILY salicylic acid 17% (Wart Remover) 1 appl topical .every 2 weeks sildenafil 50 mg PO DAILY PRN simethicone 180 mg PO TID Tresiba FlexTouch U-200 (insulin degludec) 58 units (0.29 mL) subcut DAILY 90 days NS HPI Comments Details: Patient is a 64-year-old male with DM type 2 diagnosed in 1990 who presents for f/u. He was last seen by Hanna Pichardo NP 02/06/2025 Hgb A1C 02/06/2025 7 % 10/31/24 7.8% He has hypoglycemia unawareness and limited insight into his diabetes. Dexcom average glucose: 165 14 day continuous glucose monitor report reviewed Glucose Managment indicator 7.3 % Days with CGM data 97 % TIme in ranges: 2 % very high (above 250) 31 % high ?(181-250) 67 % in range ?(70-180] 0 % low (69-55) 0 % ?very low (below 54) Glucose variability 22.5% desired less than 36 Interpretation some overnight hyperglycemia Tresiba 58 units Humalog 12 units before largest meal of the day jardiance 10 mg daily could not tolerate due to urinary incontinence metformin 500mg bid He has tried several of the G LP 1 agonist including Trulicity and Mounjaro and had constipation abdominal issues Rare hypoglycemia Retinopathy: last eye exam 08/08/24 Neuropathy:+ 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 None on current monitor Hyperglycemia: occasional urinary frequency, + nocturia 3-5x, +polydypsia PFSH Medical History Acute respiratory disease Impacted cerumen, right ear Acute diarrhea Pain in both feet Calcaneal spur of right foot Achilles tendinitis Callus of foot Right hand pain Abdominal bloating Vertigo Calcaneal spur Colon cancer screening COVID-19 Pre-op examination Elevated LFTs Encounter for Medicare annual wellness exam Bowel obstruction Melena Knee pain, bilateral Gastroenteritis Healed wound Chronic idiopathic constipation Chronic idiopathic constipation Hospital discharge follow-up Knee osteoarthritis Obesity (BMI 30-39.9) Schizoaffective disorder Pure hypercholesterolemia Benign essential hypertension Chronic kidney disease (CKD), stage III (moderate) Type 2 diabetes mellitus with diabetic chronic kidney disease Morbid obesity Dyslipidemia 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 diabetes mellitus manager intermediate (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 Diabetic polyneuropathy associated with type 2 diabetes mellitus Schizo affective schizophrenia Diabetes type 2, uncontrolled Surgical History History of repair of congenital cleft palate Hx of circumcision Family History Father HTN (hypertension) Mother Diabetes Other Mental health problem Social History Household Members: None Housing: Apartment Are you a primary in home caregiver to a significant other at home: No Do you presently have visiting nurse or other home services: Yes Alcohol intake: former Patient Tobacco Use Status: Former Tobacco user Tobacco use type: Cigarette Cigarettes Per Day: 15 Years Smoked: 8 quit 30 years ago e-Cigarette/Vaping Use: Never Used Second Hand Smoke Exposure: No service: No Current occupational status: employed Current occupation: [employer] Cognitive needs: No Hearing needs: No Vision needs: Yes (glasses) Physical Exam Vital Signs: Last Vital Signs Pulse 85 03/27/25 13:22 BP 96/54 L 03/27/25 13:22 Pulse Ox 96 03/27/25 13:22 Oxygen Delivery Method Room Air 03/27/25 13:22 BMI result Body Mass Index 36.7 Const Other: Absence of Cushingoid features. Absence of acromegalic features. Neck exam reveals nl size thyroid about 15 gms. No thyroid nodules palpable. Heart S1 S2, Reg R/R. No M/R G. Skin exam reveals absence of vitiligo or acanthosis nigricans. No edema Visual exam of foot performed. No ulcerations or open lesions. No inter digit maceration or fissuring. + onychomycosis nail beds, several nails elongated no callouses. Sensation diminished to monofilament exam. Vibratory sensation is absent with 128 Hz tuning fork. pulse positve Results Reviewed Results Reviewed: Laboratory Last Values Glucose (Clinic) 142 mg/dL (60-115) H 03/27/25 13:28 Assessment & Plan Assessment & Plan (1) Type 2 diabetes mellitus with diabetic chronic kidney disease: Code(s): E11.22 - Type 2 diabetes mellitus with diabetic chronic kidney disease Category: Medical Qualifiers: Diabetes mellitus exterminator helper termite insulin use: with exterminator helper termite use Chronic kidney disease stage: stage 3 (moderate) Chronic kidney disease stage 3 subtype: unspecified whether 3a or 3b Qualified Code(s): E11.22 - Type 2 diabetes mellitus with diabetic chronic kidney disease; N18.30 - Chronic kidney disease, stage 3 unspecified; Z79.4 - manager intermediate (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 Plan: This is a 64-year-old white male with a history of type 2 diabetes being treated metformin, Jardiance and basal-bolus insulin with history of hypoglycemic unawareness and known microvascular complications namely neuropathy and CKD. He has good glycemic control at target A1c of 7% considering his comorbidities and limited insight into diabetes . Plan is to continue the current therapy. We will have patient check microalbumin to creatinine ratio as well as lipid profile is ordered by his primary care provider. He will follow up with the primary care diabetes team in about 4 months Coding Level of Care Code Est Pt Level 4 (26501) Complex EM visit Add On G2211 Diagnoses Type 2 diabetes mellitus with stage 3 chronic kidney disease, with long-term current use of insulin, unspecified whether stage 3a or 3b CKD E11.22; N18.30; Z79.4 Diabetes mellitus exterminator helper termite insulin use: with [facility] use Chronic kidney disease stage: stage 3 (moderate) Chronic kidney disease stage 3 subtype: unspecified whether 3a or 3b
[2025-03-27 13:22] VITALS: BP 96/54; PULSE 85; O2SAT 96; BMI 36.7
[2025-03-27 13:33] LABS: Glucose, Whole Blood 142 mg/dL (60-115)
== END 2025-03-27 14:05 | disposition home or self-care (01) ==
LOC: HO.ENCR 13:12
PROVIDERS: PCP Internal Medicine; Visit Provider Internal Medicine Endocrinology, Diabetes & Metabolism
DX: E11.22 Type 2 diabetes mellitus with diabetic chronic kidney disease (principal); N18.30 Chronic kidney disease, stage 3 unspecified; Z79.4 Long term (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
CPT/HCPCS: 99214; G2211

== ENCOUNTER → 2025-03-27 13:11 | Outpatient (BNVA) | payer OTHER, SELFPAY | PROVIDERS: PCP Internal Medicine; Visit Provider Internal Medicine Endocrinology, Diabetes & Metabolism | DX: E11.22 Type 2 diabetes mellitus with diabetic chronic kidney disease (principal); N18.30 Chronic kidney disease, stage 3 unspecified; Z79.4 Long term (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 | CPT/HCPCS: 82947; 99212 ==

== ENCOUNTER 2025-03-31 08:44 | Emergency (ER) | payer OTHER, SELFPAY ==
--- NOTE | ~2025-03-31 | XR_ITS ---
EXAMINATION: XR ABDOMEN KUB CLINICAL INDICATION: constipation COMPARISON: Numerous priors, most recently 02/16/2025. TECHNIQUE: AP view of the abdomen. FINDINGS: Bowel gas pattern demonstrates diffuse distention of the colon with both stool and gas. Findings are consistent with obstipation. No small bowel dilatation or obstruction. No indirect evidence of free intraperitoneal air. There is splenomegaly noted. Lung bases appear clear. No abnormal soft tissue calcifications. Degenerative changes throughout the spine, and involving both hip joints. XR/XR KUB IMPRESSION: Severe constipation. No bowel obstruction seen. Electronically signed by: Trev Santiago MD 03/31/2025 10:20 AM EDT
[2025-03-31 09:12] VITALS: BP 120/63; PULSE 79; RESP 16; TEMP 37; O2SAT 96; BMI 36.4
--- NOTE | 2025-03-31 09:16 | ED_ITS ---
HPI - General Adult General Chief complaint: Abdominal Pain Stated complaint: pt states is constipated for 1-2 weeks now Time Seen by Provider: 03/31/25 09:37 Source: patient and old records reviewed Mode of arrival: ambulatory Limitations: no limitations History of Present Illness ED Provider: AIDEN TIDWELL narrative: 64 yo male with PMH of DM2, HLD, schizoaffective, arthritis, CKD, obesity here with c/o 1.5 weeks of constipation. He has some mild pain and nausea but no vomiting. He tooks a few swigs of magnesia last night and now had a small BM this AM and feels much better. He has had this before and usually MOM causes significant diarrhea he also notes he has soiled himself in past when taking MOM. He feels much better now. He denies change in meds or diet. He denies any prior abd surgery. MD complaint: constipation Onset (ago): week(s) (1) Location: abdomen Radiation: non-radiation Severity: mild Pain Consistency: constant Relieving factors: medication Exacerbating factors: eating Associated symptoms: nausea/vomiting Treatments prior to arrival: other Related Data Home Medications ?Medication ?Instructions ?Recorded ?Confirmed benztropine 0.5 mg tablet 0.5 mg PO BID 04/29/2203/27 clozapine 100 mg tablet 100 mg PO TID 05/12/2203/27 Previous Rx's ?Medication ?Instructions ?Recorded blood-glucose meter (FreeStyle #1 ea 03/27/23 Lite Meter kit) bisacodyl 5 mg tablet,delayed 10 mg (2 x 5 mg) PO BID #90 tabs 01/02/24 release Held on 01/11/24. Instructions: Doctor's Order lidocaine 5 % topical patch 1 patch topical DAILY #15 ea 01/04/24 lancets 28 gauge (FreeStyle #100 ea 05/08/24 Lancets) blood sugar diagnostic (FreeStyle #100 ea 06/15/24 Lite Strips) glycerin (adult) 2 supp LA .after shower 06/14 01/04 constipation #25 ea guaifenesin 200 mg/5 mL oral liquid 400 mg (10 mL) PO Q6H PRN cough 07/01/24 #118 mL blood-glucose meter (FreeStyle #1 ea 07/18/24 Lite Meter kit) blood-glucose,marketing teacher,cont #1 ea 10/09/24 (FreeStyle Jody 3 Roscoe) gabapentin 300 mg capsule 300 mg PO BEDTIME 90 days #9 0 caps 11/01/24 furosemide 20 mg tablet 20 mg PO DAILY #90 tabs 10/14 0 salicylic acid 17 % topical liquid 1 appl topical .doreen ry 2 weeks #9 mL 12/10/24 (Wart Remover) blood-glucose sensor (FreeStyle #2 ea 01/16/25 Jody 3 Plus Sensor device) docusate sodium 100 mg capsule 100 mg PO BID #60 caps 01/23/25 linaclotide 290 mcg capsule 290 mcg PO QAM #30 caps (Linzess) magnesium hydroxide 400 mg/5 mL 20 ml PO BEDTIME PRN c onstipation 01/23/25 oral suspension (Milk of Magnesia) #3,780 mL simethicone 180 mg capsule 180 mg PO TID #90 caps 01/12 10/08 acetaminophen 325 mg capsule 650 mg (2 x 325 mg) PO Q4 H PRN 01/26/25 pain #30 caps cyclobenzaprine 10 mg tablet 10 mg PO TID PRN muscle s pasm #12 01/26/25 tabs empagliflozin 25 mg tablet 25 mg PO QAM #30 tabs 01/27 (Jardiance) pen needle, diabetic 29 gauge x #100 ea 01/27/25 1/ methylcellulose (laxative) 500 mg 1,000 mg (2 x 500 mg ) PO TID #180 01/30/25 tablet (Fiber Therapy tabs (methylcellulose)) metformin 500 mg tablet 1,000 mg (2 x 500 mg) PO BID 90 01/31/25 days #360 tabs polyethylene glycol 3350 17 17 g PO DAILY #510 grams 0 02/05/25 gram/dose oral powder (Miralax) Humalog KwikPen Insulin 100 12 unit (0.12 mL) subcut D AILY 30 02/06/25 unit/mL subcutaneous (insulin days #6 mL lispro) Tresiba FlexTouch U-200 200 58 unit (0.29 mL) subcut D AILY 02/20/25 unit/mL (3 mL) subcutaneous pen days #27 mL (insulin degludec) acetaminophen 500 mg tablet 1,000 mg (2 x 500 mg) PO Q 6-8H PRN 02/21/25 pain #30 tabs sildenafil 50 mg tablet 50 mg PO DAILY PRN sexual ac tivity 02/21/25 #30 tabs cetirizine 10 mg tablet (Zyrtec) 10 mg PO DAILY #30 ta bs 02/24/25 lidocaine 5 % topical patch 1 patch topical DAILY #15 ea 03/02/25 (Lidoderm) ketoconazole 2 % topical cream 1 appl topical DAILY #3 0 grams 03/05/25 atorvastatin 10 mg tablet 10 mg PO DAILY #90 tabs 02/12 05/08 cholecalciferol (vitamin D3) 25 25 mcg PO DAILY #90 ca ps 03/11/25 mcg (1,000 unit) capsule metoclopramide HCl 10 mg tablet 10 mg PO TID #90 tabs 03/12/25 ibuprofen 800 mg tablet 800 mg PO Q8H PRN for pain 3 0 days 03/17/25 #90 tabs docusate sodium 100 mg capsule 100 mg PO BID PRN const ipation #30 03/31/25 (Colace) caps famotidine 20 mg tablet (Pepcid) 20 mg PO DAILY PRN ab dominal 03/31/25 discomfort #30 tabs magnesium citrate 150 ml PO DAILY PRN constipa tion 2 03/31/25 days #296 mL sennosides 8.6 mg capsule (senna) 8.6 mg PO BEDTIME LA N constipation 03/31/25 #30 caps Allergies Allergy/AdvReac Type Severity Reaction Status Date / Time No Known Allergies (No Known Allergy Verified 03/31/25 09:13 Allergies*) Review of Systems 2 Review of Systems: Constitutional : No Fever, No Chills, No Fatigue ENT/Mouth : No sore throat, No Rhinorrhea Eyes: No Eye Pain, No Swelling, No Redness Cardiovascular : No Chest Pain, No SOB, No Dyspnea on Exertion Respiratory : No Cough, No Sputum Gastrointestinal : No Nausea, No Vomiting, No Diarrhea, pos abdominal Pain, pos constipation Genitourinary : No Dysuria, No Urinary Frequency, No Hematuria, Musculoskeletal : No joint pain, No Myalgias, No Joint Swelling Skin : No Skin Lesions, No rash Neuro : No Weakness, No Numbness, No Dizziness, no Headache All other systems reviewed and are negative [facility] Past Medical History Attestation statement: The following information was validated with the patient. Source: old records reviewed Medical History Acute respiratory disease Impacted cerumen, right ear Acute diarrhea Pain in both feet Calcaneal spur of right foot Achilles tendinitis Callus of foot Right hand pain Abdominal bloating Vertigo Calcaneal spur Colon cancer screening COVID-19 Pre-op examination Elevated LFTs Encounter for Medicare annual wellness exam Bowel obstruction Melena Knee pain, bilateral Gastroenteritis Healed wound Chronic idiopathic constipation Chronic idiopathic constipation Hospital discharge follow-up Knee osteoarthritis Obesity (BMI 30-39.9) Schizoaffective disorder Pure hypercholesterolemia Benign essential hypertension Chronic kidney disease (CKD), stage III (moderate) Type 2 diabetes mellitus with diabetic chronic kidney disease Morbid obesity Dyslipidemia 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 diabetes mellitus FPC (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 Diabetic polyneuropathy associated with type 2 diabetes mellitus Schizo affective schizophrenia Diabetes type 2, uncontrolled Surgical History History of repair of congenital cleft palate Hx of circumcision Family History Family History Father HTN (hypertension) Mother Diabetes Other Mental health problem Social History Social History Household Members: None Housing: Apartment Are you a primary home health care social worker to a significant other at home: No Do you presently have visiting nurse or other home services: Yes Alcohol intake: former Patient Tobacco Use Status: Former Tobacco user Tobacco use type: Cigarette Cigarettes Per Day: 15 Years Smoked: 8 quit 30 years ago e-Cigarette/Vaping Use: Never Used Second Hand Smoke Exposure: No Advance Directives: No Advance Directives Information Provided: Yes service: No Current occupational status: employed Current occupation: [employer] Cognitive needs: No Hearing needs: No Vision needs: Yes (glasses) Physical Exam ED Vital Signs: Vital Signs - 24 hr 03/31/25 09:12 03/31/25 10:48 Temperature 98.6 F Pulse Rate 79 88 Respiratory Rate 16 16 Blood Pressure 120/63 104/52 L Pulse Oximetry 96 98 Oxygen Delivery Method Room Air Room Air BMI result Body Mass Index 36.4 Appearance: Alert. Oriented X3. No acute distress. Eyes: Pupils equal, round and reactive to light. ENT: Pharynx normal. Neck: Normal inspection. Neck supple. CVS: Normal heart rate and rhythm. Pulses normal. Respiratory: No respiratory distress. Breath sounds normal. Abdomen: Soft and nontender. Skin: Skin warm and dry. Normal skin color. Normal skin turgor. Extremities: No lower extremity edema. No calf ttp Neuro: Oriented X 3. No motor deficit. No sensory deficit. CN2-12 intact Course Course Course Narrative: This is a Rapid Medical Examination (RME) performed by Amelia Pitt PA-C in triage. Full HPI, ROS, assessment and treatment plan per primary provider in the Main ED. Hx: 64 yo M hx of DM, HLD, CKD, HTN, hypercholesterolemia, constipation here for eval of constipation x1.2- 2 weeks. assoc lower abd pain. attempted to take milk of mag last night without improvement. PE/vitals: obese abd, firm, ND, NT, no rebound/ guarding, active bs. Plan: labs, KUB Medications Administered Discontinued Medications Generic Name Dose Route Start Last Admin Trade Name Freq PRN Reason Stop Dose Admin Lactulose 30 gm 03/31/25 10:26 03/31/25 10:41 Lactulose 20 Gm/30 Ml Solution PO 03/31/25 10:27 30 gm ONCE ONE Administration Medical Decision Making Medical Decision Making [facility] Narrative: 64 yo male with PMH of DM2, HLD, schizoaffective, arthritis, CKD, obesity here with c/o constipation and abd pain he denies any prior abdominal surgeries, he is passing gas, he states he feels better with MOM already at this time will obtain basic labs, check lytes and KUB but clinically doubt obstruction Differential Diagnosis Differential Diagnoses: The differential diagnosis associated with the presentation includes constipation, dehydration Admission/Observation Consideration of admission/observation: Escalation of care including admission/observation considered + BM feels better stable for DC Lab Data [facility] Lab Attestation statement: I reviewed the patient's lab results. 03/31/25 09:22 03/31/25 09:22 Labs: Lab Results 03/31/25 Range/Units 09:22 WBC 7.1 (4.8-10.8) X10*3/uL RBC 5.03 (4.60-5.80) X10*6/uL Hgb 15.0 (14.0-18.0) g/dl Hct 42.5 (42.0-52.0) % MCV 84.5 (80.0-98.0) fL MCH 29.8 (27.0-33.0) pg MCHC 35.3 (31.0-36.0) g/dl RDW 13.2 (11.0-16.0) % Plt Count 127 L (160-400) X10*3/uL MPV 9.8 (9.4-12.4) fL Immature Gran % (Auto) 0.8 H (0.0-0.4) % Neut % (Auto) 72.7 (45-73) % Lymph % (Auto) 18.8 L (20-40) % Nobles % (Auto) 7.7 (2-11) % Eos % (Auto) 0.0 (0-4) % Baso % (Auto) 0.0 (0-2) % Lymph # (Auto) 1.3 (1.2-4.9) X10*3/uL Nobles # (Auto) 0.6 (0.1-1.2) X10*3/uL Eos # (Auto) 0.0 (0.0-0.4) X10*3/uL Baso # (Auto) 0.0 (0.0-0.2) X10*3/uL Abs Immat Gran (auto) 0.06 H (0.00-0.03) X10*3/uL Absolute Neuts (auto) 5.2 (2.0-8.3) x10*3/uL Absolute Nucleated RBC 0.000 (0.0-0.012) X10*3/uL Nucleated RBC % (auto) 0.0 (0.0-0.2) /100WBC Sodium 141 (135-145) mmol/L Potassium 4.3 (3.3-5.1) mmol/L Chloride 109 H (96-108) mmol/L Carbon Dioxide 23 (22-29) mmol/L Anion Gap 13 (12-20) BUN 24 H (9-16) mg/dL Creatinine 1.19 (0.5-1.4) mg/dL Estim Creat Clear Calc 89.1 Estimated GFR > 60 Random Glucose 153 H (60-115) mg/dL Calcium 9.4 (8.4-10.2) mg/dL Magnesium 2.6 (1.6-2.6) mg/dL Total Bilirubin 0.4 (0.0-1.0) mg/dL AST 36 (5-37) U/L ALT 55 H (0-40) U/L Alkaline Phosphatase 165 H (39-117) U/L Total Protein 7.3 (6.5-8.0) g/dL Albumin 4.4 (3.5-5.0) g/dL Independent Interpretation I performed an independent interpretation of an: Plain X-Ray (constipation) Radiology Impression Discussion of test interpretation with radiology: I have reviewed the radiologist's reading. External Record Review External record reviewed: Outpatient record Prescription Management I considered prescription management with: Other Discharge Plan Discharge Clinical Impression: Constipation Qualifiers: Constipation type: unspecified constipation type Qualified Code(s): K59.00 - Constipation, unspecified Patient Disposition: Home, Self-Care Instructions: Constipation (ED) Additional Instructions: labs reassuring xray shows severe constipation but no blockage take the medications as prescribed return for worsening pain, fevers, vomiting or unable to tolerate PO Prescriptions: New famotidine [Pepcid] 20 mg tablet 20 mg PO DAILY PRN (Reason: abdominal discomfort) Qty: 30 0RF senna 8.6 mg capsule 8.6 mg PO BEDTIME PRN (Reason: constipation) Qty: 30 0RF docusate sodium [Colace] 100 mg capsule 100 mg PO BID PRN (Reason: constipation) Qty: 30 0RF magnesium citrate Solution 150 ml PO DAILY PRN (Reason: constipation) 2 Days Qty: 296 0RF Rx Instructions: only take for the next two days no more than that No Action (DME) blood-glucose meter [FreeStyle Lite Meter] Kit See Rx Instructions .Route Qty: 1 5RF Rx Instructions: Tests 4 X/day bisacodyl 5 mg tablet,delayed release (DR/EC) 10 mg PO BID Qty: 90 0RF (DME) lancets [FreeStyle Lancets] 28 gauge misc See Rx Instructions .Route Qty: 100 4RF Rx Instructions: Tests 5x/day (DME) FreeStyle Lite Strips Strip See Rx Instructions .Route Qty: 100 5RF Rx Instructions: Tests 5X/day glycerin (adult) Suppository 2 supp LA .after shower Qty: 25 6RF (DME) blood-glucose meter [FreeStyle Lite Meter] Kit See Rx Instructions .ROUTE .MEDSUPPLY Qty: 1 0RF Rx Instructions: As directed (DME) FreeStyle Jody 3 Roscoe Misc See Rx Instructions .ROUTE .MEDSUPPLY Qty: 1 0RF Rx Instructions: As directed for use with freestyle jody 3+ sensor gabapentin 300 mg capsule 300 mg PO BEDTIME 90 Days Qty: 90 1RF furosemide 20 mg tablet 20 mg PO DAILY Qty: 90 1RF (DME) pen needle, diabetic 29 gauge x 1/2 needle See Rx Instructions .ROUTE DAILY Qty: 100 3RF Rx Instructions: As directed daily Jardiance 25 mg tablet 25 mg PO QAM Qty: 30 3RF Fiber Therapy (m-cellulose) 500 mg tablet 1,000 mg PO TID Qty: 180 6RF metformin 500 mg tablet 1,000 mg PO BID 90 Days Qty: 360 1RF Tresiba FlexTouch U-200 200 unit/mL (3 mL) insulin pen 58 unit subcut DAILY 90 Days Qty: 27 3RF cholecalciferol (vitamin D3) 25 mcg (1,000 unit) capsule 25 mcg PO DAILY Qty: 90 4RF atorvastatin 10 mg tablet 10 mg PO DAILY Qty: 90 0RF metoclopramide HCl 10 mg tablet 10 mg PO TID Qty: 90 0RF ibuprofen 800 mg tablet 800 mg PO Q8H PRN (Reason: for pain) 30 Days Qty: 90 0RF Rx Instructions: take with food benztropine 0.5 mg tablet 0.5 mg PO BID acetaminophen 325 mg capsule 650 mg PO Q4H PRN (Reason: pain) Qty: 30 0RF cyclobenzaprine 10 mg tablet 10 mg PO TID PRN (Reason: muscle spasm) Qty: 12 0RF polyethylene glycol 3350 [Miralax] 17 gram/dose powder 17 g PO DAILY Qty: 510 0RF lidocaine [Lidoderm] 5 % adhesive patch,medicated 1 patch topical DAILY Qty: 15 0RF Rx Instructions: leave on most painful area for up to 12 hrs lidocaine 5 % adhesive patch,medicated 1 patch topical DAILY Qty: 15 0RF Rx Instructions: leave on most painful area for up to 12 hrs clozapine 100 mg tablet 100 mg PO TID acetaminophen 500 mg tablet 1,000 mg PO Q6-8H PRN (Reason: pain) Qty: 30 1RF sildenafil 50 mg tablet 50 mg PO DAILY PRN (Reason: sexual activity) Qty: 30 0RF Rx Instructions: administer 30 minutes to 4 hours before activity docusate sodium 100 mg capsule 100 mg PO BID Qty: 60 6RF Linzess 290 mcg capsule 290 mcg PO QAM Qty: 30 6RF magnesium hydroxide [Milk of Magnesia] 400 mg/5 mL suspension 20 ml PO BEDTIME PRN (Reason: constipation) Qty: 3780 6RF simethicone 180 mg capsule 180 mg PO TID Qty: 90 6RF Wart Remover 17 % liquid 1 appl topical .every 2 weeks Qty: 9 0RF Rx Instructions: Apply to wart only, repeat in 2 weeks if no improvement. Do not use more than 4 treatments. (DME) FreeTimely Jody 3 Plus Sensor Device See Rx Instructions .ROUTE .MEDSUPPLY Qty: 2 11RF Rx Instructions: every 15 days for continuous use guaifenesin 200 mg/5 mL liquid 400 mg PO Q6H PRN (Reason: cough) Qty: 118 0RF insulin lispro [Humalog KwikPen Insulin] 100 unit/mL insulin pen 12 unit subcut DAILY 30 Days Qty: 6 6RF Rx Instructions: with the largest meal of the day cetirizine [Zyrtec] 10 mg tablet 10 mg PO DAILY Qty: 30 0RF ketoconazole 2 % cream 1 appl topical DAILY Qty: 30 3RF Print Language: Romansh
[2025-03-31 09:26] LABS: MANUAL DIFF FLAG NO
[2025-03-31 09:30] LABS: Hematocrit 42.5 % (42.0-52.0); Hemoglobin 15.0 g/dl (14.0-18.0); Imm Gran Abs Auto 0.06 X10*3/uL (0.00-0.03); Imm Gran Pct Auto 0.8 % (0.0-0.4); Lymphocytes Absolute Auto 1.3 X10*3/uL (1.2-4.9); Mean Corpuscular HGB Conc 35.3 g/dl (31.0-36.0); Mean Corpuscular Hemoglobin 29.8 pg (27.0-33.0); Mean Corpuscular Volume 84.5 fL (80.0-98.0); NRBC Abs Auto 0.000 X10*3/uL (0.0-0.012); NRBC Pct Auto 0.0 /100WBC (0.0-0.2); Platelet Count 127 X10*3/uL (160-400); Red Blood Count 5.03 X10*6/uL (4.60-5.80); White Blood Count 7.1 X10*3/uL (4.8-10.8)
[2025-03-31 09:53] LABS: Alanine Aminotransferase 55 U/L (0-40); Albumin Level 4.4 g/dL (3.5-5.0); Alkaline Phosphatase 165 U/L (39-117); Anion Gap 13 (12-20); Aspartate Amino Transferase 36 U/L (5-37); Blood Urea Nitrogen 24 mg/dL (9-16); Calcium 9.4 mg/dL (8.4-10.2); Carbon Dioxide 23 mmol/L (22-29); Chloride 109 mmol/L (96-108); Creatinine Clr Calc Pharmacy 89.1; Estimated Glomerular Filt Rate > 60; Magnesium 2.6 mg/dL (1.6-2.6); Potassium 4.3 mmol/L (3.3-5.1); Sodium 141 mmol/L (135-145); Total Protein 7.3 g/dL (6.5-8.0)
--- OUTSIDE RECORDS SUMMARY | 2025-03-31 10:27 | XMS_ITS | Patient Health Record ---
[facility] [place] Address [address] [place] [address] Care Team Providers Care Raveler Name Role Phone Jose RENAE, Luis Manuel Primary Care Provider Tu Ch Unavailable [phone] Allergies No Known Allergies Results Component Value [...] Problem Acquired hammer toe of right foot (558268641509204 5) Other hammer toe(s) (acquired), right foot (M20.41) Active confirmed Problem Plantar fascial fibromatosis (11161053) Plantar fascial fibromatosis (M72.2) Active confirmed Problem Acquired hammer toe of left foot (493830932441301 3) Other hammer toe(s) (acquired), left foot (M20.42) Active confirmed Problem Type II diabetes mellitus without complication (631893123) Type 2 diabetes mellitus without complication (E11.9) Active confirmed Vital Signs Blood pressure diastolic 80 mm Hg 08/30/2024 Height 6ft in 08/30/2024 Blood pressure systolic 130 mm Hg 08/30/2024 Weight 270 lbs 08/30/2024 BMI 36.61 kg/m2 08/30/2024 Procedures Procedure Date Ordered Date Performed Result Body Sit e 36539-BQXFINI NAIL, 6 OR MORE 06/21/2024 N/A 09476-MDYP SKIN LESIONS, 2 TO 4 06/21/2024 N/A 80417-[id number] NAIL, 6 OR MORE 08/30/2024 N/A 19662-KQET SKIN LESIONS, 2 TO 4 08/30/2024 N/A Encounters Encounter [facility] Date [facility] [address] [facility]/21/2024 Tu Michelunier Tinea unguium B35.1 ; Pain in right toe(s) M79.674 ; Pain in left toe(s) M79.675 ; Achilles tendinitis of right lower extremity M76.61 and Type 2 diabetes mellitus without complication E11.9 [facility] [address] 08/30/2024 Tu Gabby Pain in right toe(s) M79.674 ; Tinea unguium B35.1 ; Pain in left toe(s) M79.675 ; Type 2 diabetes mellitus without complication E11.9 ; Other hammer toe(s) (acquired), right foot M20.41 and Other hammer toe(s) (acquired), left foot M20.42 [facility] [address] [address] 04/17/2024 Tuwilliam Pierre [facility] [address] 09/03/2024 Tuwilliam Pierre [facility] [address] 10/01/2024 [facility] Gabby [facility] [address] 12/06/2024 Tu Pierre Plantar fascial fibromatosis M72.2 [...] X ray : Foot, right 3V 03/08/2024 72244-[id number] NAIL, 6 OR MORE 03/08/2024 22077-RGWQLMW NAIL, 6 OR MORE 06/21/2024 25149-[id number] NAIL, 6 OR MORE 08/30/2024 22924-Tzmnhnwd Plate 03/08/2024 18336-JYNK SKIN LESIONS, 2 TO 4 03/08/20 24 04975-HJAW SKIN LESIONS, 2 TO 4 08/30/19 25 70763-EDBC SKIN LESIONS, 2 TO 4 06/21/20 24 Insurance Providers Payer Name Payer Address Payer Phone Subscriber Number Group Number Insured Name Patient Relationship to Insured Coverage Start Date Coverage End Date we [facility] [employer] Claims [address] [place] [phone] [id number] Mike Cornejo Self - patient is the insured Medical (General) History Medical History History ICD Code Diabetic Surgical History Surgery Date(Month/Year)
[2025-03-31 10:48] VITALS: BP 104/52; PULSE 88; RESP 16; O2SAT 98
[2025-03-31 11:30] VITALS: BP 104/52; PULSE 88; RESP 16; TEMP 36.6; O2SAT 98
== END 2025-03-31 11:38 | disposition home or self-care (01) ==
PROVIDERS: Physician Assistant Medical; Emergency Provider Emergency Medicine; PCP Internal Medicine
DX: K59.00 Constipation, unspecified (principal); R11.0 Nausea
CPT/HCPCS: 36415; 74018; 80053; 83735; 85025; 99283; 99284

== ENCOUNTER → 2025-03-31 09:14 | Outpatient (BNV) | payer OTHER, SELFPAY | PROVIDERS: Emergency Provider Emergency Medicine; PCP Internal Medicine; Visit Provider Radiology Diagnostic Radiology | DX: K59.00 Constipation, unspecified (principal) | CPT/HCPCS: 74018 ==

== ENCOUNTER 2025-04-05 16:47 | Emergency (ER) | payer OTHER, SELFPAY ==
[2025-04-05 16:57] VITALS: BP 125/73; PULSE 91; RESP 20; TEMP 36.4; O2SAT 97; BMI 36.3
--- NOTE | 2025-04-05 16:57 | ED_ITS ---
HPI - General Adult General Chief complaint: General Medical Stated complaint: High blood sugar Time Seen by Provider: 04/05/25 18:11 Source: patient Limitations: no limitations History of Present Illness ED Provider: Belén dEmond PA-C HPI narrative: 64-year-old male with a history of CKD, HTN, diabetes, HLD, morbid obesity, schizoaffective schizophrenia who presents with hyperglycemia. Patient states he is due for his insulin, he ate food, did not administer the insulin to himself, his blood sugar is 300. Related Data Home Medications ?Medication ?Instructions ?Recorded ?Confirmed benztropine 0.5 mg tablet 0.5 mg PO BID 04/29/2203/27 clozapine 100 mg tablet 100 mg PO TID 05/12/2203/27 Previous Rx's ?Medication ?Instructions ?Recorded blood-glucose meter (FreeStyle #1 ea 03/27/23 Lite Meter kit) bisacodyl 5 mg tablet,delayed 10 mg (2 x 5 mg) PO BID #90 tabs 01/02/24 release Held on 01/11/24. Instructions: Doctor's Order lidocaine 5 % topical patch 1 patch topical DAILY #15 ea 01/04/24 lancets 28 gauge (FreeStyle #100 ea 05/08/24 Lancets) blood sugar diagnostic (FreeStyle #100 ea 06/15/24 Lite Strips) glycerin (adult) 2 supp IN .after shower 06/14 01/04 constipation #25 ea guaifenesin 200 mg/5 mL oral liquid 400 mg (10 mL) PO Q6H PRN cough 07/01/24 #118 mL blood-glucose meter (FreeStyle #1 ea 07/18/24 Lite Meter kit) blood-glucose,leather grader,cont #1 ea 10/09/24 (FreeStyle Jody 3 [place]) gabapentin 300 mg capsule 300 mg PO BEDTIME 90 days #9 0 caps 11/01/24 furosemide 20 mg tablet 20 mg PO DAILY #90 tabs 10/14 salicylic acid 17 % topical liquid 1 appl topical .doreen ry 2 weeks #9 mL 12/10/24 (Wart Remover) blood-glucose sensor (FreeStyle #2 ea 01/16/25 Jody 3 Plus Sensor device) docusate sodium 100 mg capsule 100 mg PO BID #60 caps 01/23/25 linaclotide 290 mcg capsule 290 mcg PO QAM #30 caps (Linzess) magnesium hydroxide 400 mg/5 mL 20 ml PO BEDTIME PRN c onstipation 01/23/25 oral suspension (Milk of Magnesia) #3,780 mL simethicone 180 mg capsule 180 mg PO TID #90 caps 01/12 10/08 acetaminophen 325 mg capsule 650 mg (2 x 325 mg) PO Q4 H PRN 01/26/25 pain #30 caps cyclobenzaprine 10 mg tablet 10 mg PO TID PRN muscle s pasm #12 01/26/25 tabs empagliflozin 25 mg tablet 25 mg PO QAM #30 tabs 01/27 (Jardiance) pen needle, diabetic 29 gauge x #100 ea 01/27/25/ methylcellulose (laxative) 500 mg 1,000 mg (2 x 500 mg ) PO TID #180 01/30/25 tablet (Fiber Therapy tabs (methylcellulose)) metformin 500 mg tablet 1,000 mg (2 x 500 mg) PO BID 90 01/31/25 days #360 tabs polyethylene glycol 3350 17 17 g PO DAILY #510 grams 0 02/05/25 gram/dose oral powder (Miralax) Humalog KwikPen Insulin 100 12 unit (0.12 mL) subcut D AILY 30 02/06/25 unit/mL subcutaneous (insulin days #6 mL lispro) Tresiba FlexTouch U-200 200 58 unit (0.29 mL) subcut D AILY 90 02/20/25 unit/mL (3 mL) subcutaneous pen days #27 mL (insulin degludec) acetaminophen 500 mg tablet 1,000 mg (2 x 500 mg) PO Q 6-8H PRN 02/21/25 pain #30 tabs sildenafil 50 mg tablet 50 mg PO DAILY PRN sexual ac tivity 02/21/25 #30 tabs cetirizine 10 mg tablet (Zyrtec) 10 mg PO DAILY #30 ta bs 02/24/25 lidocaine 5 % topical patch 1 patch topical DAILY #15 ea 03/02/25 (Lidoderm) ketoconazole 2 % topical cream 1 appl topical DAILY #3 0 grams 03/05/25 atorvastatin 10 mg tablet 10 mg PO DAILY #90 tabs 02/12 05/08 cholecalciferol (vitamin D3) 25 25 mcg PO DAILY #90 ca ps 03/11/25 mcg (1,000 unit) capsule metoclopramide HCl 10 mg tablet 10 mg PO TID #90 tabs 03/12/25 ibuprofen 800 mg tablet 800 mg PO Q8H PRN for pain 3 0 days 03/17/25 #90 tabs docusate sodium 100 mg capsule 100 mg PO BID PRN const ipation #30 03/31/25 (Colace) caps famotidine 20 mg tablet (Pepcid) 20 mg PO DAILY PRN ab dominal 03/31/25 discomfort #30 tabs magnesium citrate 150 ml PO DAILY PRN constipa tion 2 03/31/25 days #296 mL sennosides 8.6 mg capsule (senna) 8.6 mg PO BEDTIME IN N constipation 03/31/25 #30 caps Allergies Allergy/AdvReac Type Severity Reaction Status Date / Time No Known Allergies (No Known Allergy Verified 04/05/25 17:01 Allergies*) Review of Systems 2 Review of Systems: Yes all other systems are reviewed and are negative Constitutional: Constitutional: Denies fatigue and Denies fever(s) Cardiovascular: Cardiovascular: Denies chest pain and Denies dyspnea Respiratory: Respiratory: Denies dyspnea Gastrointestinal: Gastrointestinal: Denies abdominal pain, Denies nausea and Denies vomiting Endocrine: Endocrine: Denies fatigue PMFSH Past Medical History Attestation statement: The following information was validated with the patient. Medical History Acute respiratory disease Impacted cerumen, right ear Acute diarrhea Pain in both feet Calcaneal spur of right foot Achilles tendinitis Callus of foot Right hand pain Abdominal bloating Vertigo Calcaneal spur Colon cancer screening COVID-19 Pre-op examination Elevated LFTs Encounter for Medicare annual wellness exam Bowel obstruction Melena Knee pain, bilateral Gastroenteritis Healed wound Chronic idiopathic constipation Chronic idiopathic constipation Hospital discharge follow-up Knee osteoarthritis Obesity (BMI 30-39.9) Schizoaffective disorder Pure hypercholesterolemia Benign essential hypertension Chronic kidney disease (CKD), stage III (moderate) Type 2 diabetes mellitus with diabetic chronic kidney disease Morbid obesity Dyslipidemia 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 diabetes 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 Diabetic polyneuropathy associated with type 2 diabetes mellitus Schizo affective schizophrenia Diabetes type 2, uncontrolled Surgical History History of repair of congenital cleft palate Hx of circumcision Family History Family History Father HTN (hypertension) Mother Diabetes Other Mental health problem Social History Social History Household Members: None Housing: Apartment Are you a primary child day care provider to a significant other at home: No Do you presently have visiting nurse or other home services: Yes Alcohol intake: former Patient Tobacco Use Status: Former Tobacco user Tobacco use type: Cigarette Cigarettes Per Day: 15 Years Smoked: 8 quit 30 years ago e-Cigarette/Vaping Use: Never Used Second Hand Smoke Exposure: No Advance Directives: No Advance Directives Information Provided: No service: No Current occupational status: employed Current occupation: [employer] Cognitive needs: No Hearing needs: No Vision needs: Yes (glasses) Physical Exam ED Vital Signs: Vital Signs - 24 hr 04/05/25 16:57 Temperature 97.6 F Pulse Rate 91 Respiratory Rate 20 Blood Pressure 125/73 Pulse Oximetry 97 Oxygen Delivery Method Room Air BMI result Body Mass Index 36.3 Const Other: Alert Orientation/consciousness: patient oriented x3 Resp Effort & Inspection: normal respiratory effort Cardio Other: Normal peripheral perfusion Skin Other: Warm dry no rash Neuro General: patient oriented x3, gait normal, no focal motor deficits and CN's II- XI intact bilaterally Psych Other: Cooperative Course Course Course Narrative: This is a Rapid Medical Examination (RME) performed by Amelia Pitt PA-C in triage. Full HPI, ROS, assessment and treatment plan per primary provider in the Main ED. Hx: 64 yo M hx of DM2, HLD, schizoaffective, arthritis, CKD, obesity here w/ concerns of elevated blood sugar. states he was at work and after eating 1-2 hours ago checked his blood sugar and noted it to be in the 300's. did not administer any insulin after this. reports glucometer sensor needs replacement. PE/vitals: POC glucose 300 in triage. Plan: labs ua Medical Decision Making Medical Decision Making MDM Narrative: 64-year-old male with a history of CKD, HTN, diabetes, HLD, morbid obesity, schizoaffective schizophrenia who presents with hyperglycemia. Patient states he is due for his insulin, he ate food, did not administer the insulin to himself, his blood sugar is 300. Problem: Psychiatric illness, diabetes History: Per patient I have considered the following differential diagnoses: Hyperglycemia, HHS, DKA, infection Plan: Screening labs were obtained from triage, the patient is not acidotic, there was no gap he is not in DKA. He simply needs his insulin. We will instruct him to do so. I have independently reviewed the following tests: Labs: No leukocytosis, not anemic, no electrolyte abnormality, sugar 328, no gap Differential Diagnosis Differential Diagnoses: The differential diagnosis associated with the presentation includes See [facility] Admission/Observation Consideration of admission/observation: Escalation of care including admission/observation considered Not applicable Lab Data [facility] Lab Attestation statement: I reviewed the patient's lab results. 04/05/25 17:16 04/05/25 17:16 Labs: Lab Results 04/05/25 04/05/25 04/05/25 Range/Units 16:59 17:13 17:16 WBC 5.9 (4.8-10.8) X10*3/uL RBC 4.96 (4.60-5.80) X10*6/uL Hgb 14.8 (14.0-18.0) g/dl Hct 41.1 L (42.0-52.0) % MCV 82.9 (80.0-98.0) fL MCH 29.8 (27.0-33.0) pg MCHC 36.0 (31.0-36.0) g/dl RDW 13.0 (11.0-16.0) % Plt Count 113 L (160-400) X10*3/uL MPV 10.4 (9.4-12.4) fL Immature Gran % (Auto) 0.5 H (0.0-0.4) % Neut % (Auto) 75.4 H (45-73) % Lymph % (Auto) 17.3 L (20-40) % [place] % (Auto) 6.8 (2-11) % Eos % (Auto) 0.0 (0-4) % Baso % (Auto) 0.0 (0-2) % Lymph # (Auto) 1.0 L (1.2-4.9) X10*3/uL [place] # (Auto) 0.4 (0.1-1.2) X10*3/uL Eos # (Auto) 0.0 (0.0-0.4) X10*3/uL Baso # (Auto) 0.0 (0.0-0.2) X10*3/uL Abs Immat Gran (auto) 0.03 (0.00-0.03) X10*3/uL Absolute Neuts (auto) 4.5 (2.0-8.3) x10*3/uL Absolute Nucleated RBC 0.000 (0.0-0.012) X10*3/uL Nucleated RBC % (auto) 0.0 (0.0-0.2) /100WBC Sodium 139 (135-145) mmol/L Potassium 4.2 (3.3-5.1) mmol/L Chloride 106 (96-108) mmol/L Carbon Dioxide 22 (22-29) mmol/L Anion Gap 15 (12-20) BUN 20 H (9-16) mg/dL Creatinine 1.29 (0.5-1.4) mg/dL Estim Creat Clear Calc 82.1 Estimated GFR 56 POC Glucose 300 H (60-115) mg/dL Random Glucose 328 H (60-115) mg/dL Calcium 9.4 (8.4-10.2) mg/dL Magnesium 1.9 (1.6-2.6) mg/dL Total Bilirubin 0.4 (0.0-1.0) mg/dL AST 45 H (5-37) U/L ALT 88 H (0-40) U/L Alkaline Phosphatase 175 H (39-117) U/L Total Protein 7.1 (6.5-8.0) g/dL Albumin 4.4 (3.5-5.0) g/dL Lipase 15 (8-78) U/L Urine Color Yellow Urine Appearance Clear Urine pH 6.5 (5.0-9.0) Ur Specific [place] 1.010 (1.005-1.025) Urine Protein Negative (Neg-Trace) mg/dL Urine Glucose (UA) >=1000 H (Negative) mg/dL Urine Ketones Negative (Negative) mg/dL Urine Blood Negative (Negative) Urine Nitrite Negative (Negative) Ur Leukocyte Esterase Negative (Negative) Urine RBC 0-2 (0-2) /HPF Urine WBC 0-5 (0-5) /HPF Ur Squamous Epith Cells 0-2 (0-2) /HPF Urine Bacteria None Seen (None Seen) Hyaline Casts 0-2 (0-2) /LPF Chronic Conditions Patient?s care impacted by: Diabetes and Hypertension Discharge Plan Discharge Clinical Impression: Hyperglycemia Patient Disposition: Home, Self-Care Instructions: Diabetic Hyperglycemia (ED) Additional Instructions: All of your screening labs were normal, your blood sugar is currently 328. As you know, you are due for your insulin, it is expected that your blood sugar will be elevated given you just ate a meal. Return home and take your scheduled insulin. Prescriptions: No Action (DME) blood-glucose meter [FreeStyle Lite Meter] Kit See Rx Instructions .Route Qty: 1 5RF Rx Instructions: Tests 4 X/day bisacodyl 5 mg tablet,delayed release (DR/EC) 10 mg PO BID Qty: 90 0RF (DME) lancets [FreeStyle Lancets] 28 gauge misc See Rx Instructions .Route Qty: 100 4RF Rx Instructions: Tests 5x/day (DME) FreeStyle Lite Strips Strip See Rx Instructions .Route Qty: 100 5RF Rx Instructions: Tests 5X/day glycerin (adult) Suppository 2 supp IN .after shower Qty: 25 6RF (DME) blood-glucose meter [FreeStyle Lite Meter] Kit See Rx Instructions .ROUTE .MEDSUPPLY Qty: 1 0RF Rx Instructions: As directed (DME) FreeStyle Jody 3 [place] Misc See Rx Instructions .ROUTE .MEDSUPPLY Qty: 1 0RF Rx Instructions: As directed for use with freestyle jody 3+ sensor gabapentin 300 mg capsule 300 mg PO BEDTIME 90 Days Qty: 90 1RF furosemide 20 mg tablet 20 mg PO DAILY Qty: 90 1RF (DME) pen needle, diabetic 29 gauge x 1/2 needle See Rx Instructions .ROUTE DAILY Qty: 100 3RF Rx Instructions: As directed daily Jardiance 25 mg tablet 25 mg PO QAM Qty: 30 3RF Fiber Therapy (m-cellulose) 500 mg tablet 1,000 mg PO TID Qty: 180 6RF metformin 500 mg tablet 1,000 mg PO BID 90 Days Qty: 360 1RF Tresiba FlexTouch U-200 200 unit/mL (3 mL) insulin pen 58 unit subcut DAILY 90 Days Qty: 27 3RF cholecalciferol (vitamin D3) 25 mcg (1,000 unit) capsule 25 mcg PO DAILY Qty: 90 4RF atorvastatin 10 mg tablet 10 mg PO DAILY Qty: 90 0RF metoclopramide HCl 10 mg tablet 10 mg PO TID Qty: 90 0RF ibuprofen 800 mg tablet 800 mg PO Q8H PRN (Reason: for pain) 30 Days Qty: 90 0RF Rx Instructions: take with food benztropine 0.5 mg tablet 0.5 mg PO BID acetaminophen 325 mg capsule 650 mg PO Q4H PRN (Reason: pain) Qty: 30 0RF cyclobenzaprine 10 mg tablet 10 mg PO TID PRN (Reason: muscle spasm) Qty: 12 0RF polyethylene glycol 3350 [Miralax] 17 gram/dose powder 17 g PO DAILY Qty: 510 0RF lidocaine [Lidoderm] 5 % adhesive patch,medicated 1 patch topical DAILY Qty: 15 0RF Rx Instructions: leave on most painful area for up to 12 hrs famotidine [Pepcid] 20 mg tablet 20 mg PO DAILY PRN (Reason: abdominal discomfort) Qty: 30 0RF senna 8.6 mg capsule 8.6 mg PO BEDTIME PRN (Reason: constipation) Qty: 30 0RF docusate sodium [Colace] 100 mg capsule 100 mg PO BID PRN (Reason: constipation) Qty: 30 0RF magnesium citrate Solution 150 ml PO DAILY PRN (Reason: constipation) 2 Days Qty: 296 0RF Rx Instructions: only take for the next two days no more than that lidocaine 5 % adhesive patch,medicated 1 patch topical DAILY Qty: 15 0RF Rx Instructions: leave on most painful area for up to 12 hrs clozapine 100 mg tablet 100 mg PO TID acetaminophen 500 mg tablet 1,000 mg PO Q6-8H PRN (Reason: pain) Qty: 30 1RF sildenafil 50 mg tablet 50 mg PO DAILY PRN (Reason: sexual activity) Qty: 30 0RF Rx Instructions: administer 30 minutes to 4 hours before activity docusate sodium 100 mg capsule 100 mg PO BID Qty: 60 6RF Linzess 290 mcg capsule 290 mcg PO QAM Qty: 30 6RF magnesium hydroxide [Milk of Magnesia] 400 mg/5 mL suspension 20 ml PO BEDTIME PRN (Reason: constipation) Qty: 3780 6RF simethicone 180 mg capsule 180 mg PO TID Qty: 90 6RF Wart Remover 17 % liquid 1 appl topical .every 2 weeks Qty: 9 0RF Rx Instructions: Apply to wart only, repeat in 2 weeks if no improvement. Do not use more than 4 treatments. (DME) [employer] Jody 3 Plus Sensor Device See Rx Instructions .ROUTE .MEDSUPPLY Qty: 2 11RF Rx Instructions: every 15 days for continuous use guaifenesin 200 mg/5 mL liquid 400 mg PO Q6H PRN (Reason: cough) Qty: 118 0RF insulin lispro [Humalog KwikPen Insulin] 100 unit/mL insulin pen 12 unit subcut DAILY 30 Days Qty: 6 6RF Rx Instructions: with the largest meal of the day cetirizine [Zyrtec] 10 mg tablet 10 mg PO DAILY Qty: 30 0RF ketoconazole 2 % cream 1 appl topical DAILY Qty: 30 3RF Print Language: Yi
[2025-04-05 17:04] LABS: Glucose, Whole Blood 300 mg/dL (60-115)
[2025-04-05 17:21] LABS: MANUAL DIFF FLAG NO
[2025-04-05 17:23] LABS: Appearance Urine Clear; Glucose Urine UA >=1000 mg/dL (Negative); PH 6.5 (5.0-9.0); Specific Gravity - Urine 1.010 (1.005-1.025); UMIC TRIGGER UACC YES
[2025-04-05 17:27] LABS: Hematocrit 41.1 % (42.0-52.0); Hemoglobin 14.8 g/dl (14.0-18.0); Imm Gran Abs Auto 0.03 X10*3/uL (0.00-0.03); Imm Gran Pct Auto 0.5 % (0.0-0.4); Lymphocytes Absolute Auto 1.0 X10*3/uL (1.2-4.9); Mean Corpuscular HGB Conc 36.0 g/dl (31.0-36.0); Mean Corpuscular Hemoglobin 29.8 pg (27.0-33.0); Mean Corpuscular Volume 82.9 fL (80.0-98.0); NRBC Abs Auto 0.000 X10*3/uL (0.0-0.012); NRBC Pct Auto 0.0 /100WBC (0.0-0.2); Platelet Count 113 X10*3/uL (160-400); Red Blood Count 4.96 X10*6/uL (4.60-5.80); White Blood Count 5.9 X10*3/uL (4.8-10.8)
[2025-04-05 17:35] LABS: Alanine Aminotransferase 88 U/L (0-40); Albumin Level 4.4 g/dL (3.5-5.0); Alkaline Phosphatase 175 U/L (39-117); Anion Gap 15 (12-20); Aspartate Amino Transferase 45 U/L (5-37); Blood Urea Nitrogen 20 mg/dL (9-16); Calcium 9.4 mg/dL (8.4-10.2); Carbon Dioxide 22 mmol/L (22-29); Chloride 106 mmol/L (96-108); Creatinine Clr Calc Pharmacy 82.1; Estimated Glomerular Filt Rate 56; Lipase 15 U/L (8-78); Magnesium 1.9 mg/dL (1.6-2.6); Potassium 4.2 mmol/L (3.3-5.1); Sodium 139 mmol/L (135-145); Total Protein 7.1 g/dL (6.5-8.0)
[2025-04-05 18:34] VITALS: BP 0/0; PULSE 0; RESP 0; TEMP -17.7; TEMP 0; O2SAT 0
== END 2025-04-05 18:35 | disposition home or self-care (01) ==
PROVIDERS: Physician Assistant Medical; Emergency Provider Student in an Organized Health Care Education/Training Program; PCP Internal Medicine
DX: E11.65 Type 2 diabetes mellitus with hyperglycemia (principal); I10 Essential (primary) hypertension; N18.30 Chronic kidney disease, stage 3 unspecified; Z79.899 Other long term (current) drug therapy; Z79.4 Long term (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
CPT/HCPCS: 36415; 80053; 81001; 82947; 83690; 83735; 85025; 99282; 99283

== ENCOUNTER 2025-04-28 11:25 | Emergency (ER) | payer OTHER, SELFPAY ==
--- OUTSIDE RECORDS SUMMARY | 2024-11-15 06:00 | XMS_ITS ---
Author Organization [facility] Address [address] [place] [address] Care Team Providers Care Wedding Planner Name Role Phone Luis Manuel Garcia MD Primary Care Provider Unava ilTu [place] Unavailable [phone] Encounters Encounter Location Date Provider Diagnosis [facility] [address] [place] [address] 11/15/2024 Tu Pierre Plan Of Treatment No Information Progress Notes * Mike BAIRDDOB:[birth year] (64 yo M)Acc No.[id number]:11/15/2024 Progress Note Patient: Mike JACOBO Provider: Magaly Pierre DPM :1960 A ge:64 Y S ex:Male Date:11/15/2024 Address:[address] [place] Pcp:Luis Manuel Garcia MD Subjective: * Chief [...] Pierre DPM Date: 11/15/2024 Generated for Ruthy wood/Garrison/eTransmitting on: 04/28/2025 04:42 PM EDT
--- NOTE | ~2025-04-28 | XR_ITS ---
EXAMINATION: XR ABDOMEN KUB CLINICAL INDICATION: constipation COMPARISON: March 31, 2025 TECHNIQUE: AP view of the abdomen. FINDINGS: Patient's large body habitus. Abundant stool mostly in the left hemicolon. No air-fluid levels. There is gas in the rectum and distal sigmoid colon region. Multilevel spondylosis. Degenerative changes in the symphysis pubis and coxofemoral joints. XR/XR KUB IMPRESSION: Abundant stool without intestinal obstruction pattern. Limited due to patient's body habitus. . Electronically signed by: Jeramie Chapman MD 04/28/2025 12:43 PM EDT
[2025-04-28 11:49] VITALS: BP 125/81; PULSE 90; RESP 18; TEMP 36.3; O2SAT 97; BMI 36.7
--- NOTE | 2025-04-28 11:50 | ED_ITS ---
HPI - General Adult General Chief complaint: General Medical Stated complaint: constipation , sweats Time Seen by Provider: 04/28/25 17:50 Source: patient Mode of arrival: ambulatory Limitations: no limitations History of Present Illness ED Provider: Dr. Hicks HPI narrative: 64-year-old male history of diabetes, schizoaffective disorder, CKD presented hospital today for evaluation of constipation. Patient states he has not had a bowel movement in 5-6 days. He knows he is constipated he feel distended. He is complaining of lower abdominal pain. Patient stated that normally Mag citrate and enema helps with his constipation. He has been here before. Patient stated that he is passing gas. Related Data Home Medications ?Medication ?Instructions ?Recorded ?Confirmed benztropine 0.5 mg tablet 0.5 mg PO BID 04/29/2203/27 clozapine 100 mg tablet 100 mg PO TID 05/12/2203/27 Previous Rx's ?Medication ?Instructions ?Recorded blood-glucose meter (FreeStyle #1 ea 03/27/23 Lite Meter kit) bisacodyl 5 mg tablet,delayed 10 mg (2 x 5 mg) PO BID #90 tabs 01/02/24 release Held on 01/11/24. 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 #1 ea 10/09/24 (FreeStyle Jody 3 [place]) gabapentin 300 mg capsule 300 mg PO BEDTIME 90 days #9 0 caps 11/01/24 furosemide 20 mg tablet 20 mg PO DAILY #90 tabs 10/14 salicylic acid 17 % topical liquid 1 appl topical .doreen ry 2 weeks #9 mL 12/10/24 (Wart Remover) blood-glucose sensor (FreeStyle #2 ea 01/16/25 Jody 3 Plus Sensor device) docusate sodium 100 mg capsule 100 mg PO BID #60 caps 01/23/25 linaclotide 290 mcg capsule 290 mcg PO QAM #30 caps (Linzess) magnesium hydroxide 400 mg/5 mL 20 ml PO BEDTIME PRN c onstipation 01/23/25 oral suspension (Milk of Magnesia) #3,780 mL simethicone 180 mg capsule 180 mg PO TID #90 caps 01/12 10/08 acetaminophen 325 mg capsule 650 mg (2 x 325 mg) PO Q4 H PRN 01/26/25 pain #30 caps cyclobenzaprine 10 mg tablet 10 mg PO TID PRN muscle s pasm #12 01/26/25 tabs empagliflozin 25 mg tablet 25 mg PO QAM #30 tabs 01/27 (Jardiance) pen needle, diabetic 29 gauge x #100 ea 01/27/2508/15 methylcellulose (laxative) 500 mg 1,000 mg (2 x 500 mg ) PO TID #180 01/30/25 tablet (Fiber Therapy tabs (methylcellulose)) metformin 500 mg tablet 1,000 mg (2 x 500 mg) PO BID 90 01/31/25 days #360 tabs polyethylene glycol 3350 17 17 g PO DAILY #510 grams 0 02/05/25 gram/dose oral powder (Miralax) Humalog KwikPen Insulin 100 12 unit (0.12 mL) subcut D AILY 30 02/06/25 unit/mL subcutaneous (insulin days #6 mL lispro) Tresiba FlexTouch U-200 200 58 unit (0.29 mL) subcut D AILY 90 02/20/25 unit/mL (3 mL) subcutaneous pen days #27 mL (insulin degludec) sildenafil 50 mg tablet 50 mg PO DAILY PRN sexual ac tivity 02/21/25 #30 tabs cetirizine 10 mg tablet (Zyrtec) 10 mg PO DAILY #30 ta bs 02/24/25 lidocaine 5 % topical patch 1 patch topical DAILY #15 ea 03/02/25 (Lidoderm) ketoconazole 2 % topical cream 1 appl topical DAILY #3 0 grams 03/05/25 atorvastatin 10 mg tablet 10 mg PO DAILY #90 tabs 02/12 05/08 cholecalciferol (vitamin D3) 25 25 mcg PO DAILY #90 ca ps 03/11/25 mcg (1,000 unit) capsule metoclopramide HCl 10 mg tablet 10 mg PO TID #90 tabs 03/12/25 ibuprofen 800 mg tablet 800 mg PO Q8H PRN for pain 3 0 days 03/17/25 #90 tabs docusate sodium 100 mg capsule 100 mg PO BID PRN const ipation #30 03/31/25 (Colace) caps famotidine 20 mg tablet (Pepcid) 20 mg PO DAILY PRN ab dominal 03/31/25 discomfort #30 tabs magnesium citrate 150 ml PO DAILY PRN constipa tion 2 03/31/25 days #296 mL sennosides 8.6 mg capsule (senna) 8.[address] N constipation 03/31/25 #30 caps acetaminophen 500 mg tablet 1,000 mg (2 x 500 mg) PO Q 6-8H PRN 04/15/25 pain #30 tabs sennosides 8.6 mg capsule (senna) 8.6 mg PO BEDTIME #1 4 caps 04/28/25 Allergies Allergy/AdvReac Type Severity Reaction Status Date / Time No Known Allergies (No Known Allergy Verified 04/28/25 11:53 Allergies*) Review of Systems 2 Review of Systems: Pertinent review of systems as mentioned in HPI. All other system otherwise negative. [facility] Past Medical History [facility] Narrative: As mentioned in HPI Medical History Acute respiratory disease Impacted cerumen, right ear Acute diarrhea Pain in both feet Calcaneal spur of right foot Achilles tendinitis Callus of foot Right hand pain Abdominal bloating Vertigo Calcaneal spur Colon cancer screening COVID-19 Pre-op examination Elevated LFTs Encounter for Medicare annual wellness exam Bowel obstruction Melena Knee pain, bilateral Gastroenteritis Healed wound Chronic idiopathic constipation Chronic idiopathic constipation Hospital discharge follow-up Knee osteoarthritis Obesity (BMI 30-39.9) Schizoaffective disorder Pure hypercholesterolemia Benign essential hypertension Chronic kidney disease (CKD), stage III (moderate) Type 2 diabetes mellitus with diabetic chronic kidney disease Morbid obesity Dyslipidemia 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 diabetes mellitus 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 Diabetic polyneuropathy associated with type 2 diabetes mellitus Schizo affective schizophrenia Diabetes type 2, uncontrolled Surgical History History of repair of congenital cleft palate Hx of circumcision Family History Family History Father HTN (hypertension) Mother Diabetes Other Mental health problem Social History Social History Household Members: None Housing: Apartment Are you a primary progressive care manager to a significant other at home: No Do you presently have visiting nurse or other home services: Yes Alcohol intake: former Patient Tobacco Use Status: Former Tobacco user Tobacco use type: Cigarette Cigarettes Per Day: 15 Years Smoked: 8 quit 30 years ago e-Cigarette/Vaping Use: Never Used Second Hand Smoke Exposure: No Advance Directives: No Advance Directives Information Provided: No service: No Current occupational status: employed Current occupation: [employer] Cognitive needs: No Hearing needs: No Vision needs: Yes (glasses) Physical Exam ED Exam Exam: General: Pleasant, no distress, interacting appropriately Head: Normacephalic, atraumatic ENT: oral mucosa moist, neck supple, no tracheal deviation Cardiovascular: regular rate, regular rhythm, no murmurs, rubbing, gallops Respiratory: CTAB, no wheeze, rales, rhonchi Gastrointestinal: Soft, non distended, non tender, non guarding Extremities: No limb pain or swelling, no calf tenderness Neurological: Awake and alert, no facial droop noted Skin: Warm and dry Psychiatric: Appropriate mood and thoughts Vital Signs: Vital Signs - 24 hr 04/28/25 11:49 04/28/25 17:51 Temperature 97.3 F 97.6 F Pulse Rate 90 86 Respiratory Rate 18 18 Blood Pressure 125/81 125/89 Pulse Oximetry 97 98 Oxygen Delivery Method Room Air Room Air BMI result Body Mass Index 36.7 Course Course Course Narrative: This is a rapid medical exam performed by Romelia Gonzales NP: Additional HPI, ROS, PE not included below will be deferred to primary provider. Patient is a 64y/o M presenting to the ED with complaint of constipation and sweats for the past week or so. Using MOM. Plan: labs, UA, KUB, viral swabs Medications Administered Discontinued Medications Generic Name Dose Route Start Last Admin Trade Name Freq PRN Reason Stop Dose Admin Magnesium Citrate 300 ml 04/28/25 18:13 04/28/25 18:31 Magnesium Citrate 300 Ml Solution PO 04/28/25 18:14 300 ml ONCE ONE Administration Medical Decision Making Medical Decision Making [facility] Narrative: 64-year-old male presented hospital today for evaluation constipation. On patient's exam. Patient abdominal is nontender. Not guarding in nature. I do not think he is obstructed as he is passing gas. We will plan to order some it is him citrate for the patient and an enema for the patient Reassessment patient is able to have a large bowel movement he does feel better. Patient will be discharged Differential Diagnosis Differential Diagnoses: The differential diagnosis associated with the presentation includes Constipation, SBO, appendicitis, colitis Lab Data [facility] Lab Attestation statement: I reviewed the patient's lab results. 04/28/25 12:02 04/28/25 12:02 Labs: Lab Results 04/28/25 Range/Units 12:02 WBC 6.7 (4.8-10.8) X10*3/uL RBC 5.12 (4.60-5.80) X10*6/uL Hgb 15.3 (14.0-18.0) g/dl Hct 42.9 (42.0-52.0) % MCV 83.8 (80.0-98.0) fL MCH 29.9 (27.0-33.0) pg MCHC 35.7 (31.0-36.0) g/dl RDW 13.2 (11.0-16.0) % Plt Count 123 L (160-400) X10*3/uL MPV 10.3 (9.4-12.4) fL Immature Gran % (Auto) 0.6 H (0.0-0.4) % Neut % (Auto) 74.7 H (45-73) % Lymph % (Auto) 17.9 L (20-40) % [place] % (Auto) 6.8 (2-11) % Eos % (Auto) 0.0 (0-4) % Baso % (Auto) 0.0 (0-2) % Lymph # (Auto) 1.2 (1.2-4.9) X10*3/uL [place] # (Auto) 0.5 (0.1-1.2) X10*3/uL Eos # (Auto) 0.0 (0.0-0.4) X10*3/uL Baso # (Auto) 0.0 (0.0-0.2) X10*3/uL Abs Immat Gran (auto) 0.04 H (0.00-0.03) X10*3/uL Absolute Neuts (auto) 5.0 (2.0-8.3) x10*3/uL Absolute Nucleated RBC 0.000 (0.0-0.012) X10*3/uL Nucleated RBC % (auto) 0.0 (0.0-0.2) /100WBC Sodium 141 (135-145) mmol/L Potassium 4.3 (3.3-5.1) mmol/L Chloride 107 (96-108) mmol/L Carbon Dioxide 24 (22-29) mmol/L Anion Gap 14 (12-20) BUN 25 H (9-16) mg/dL Creatinine 1.46 H (0.5-1.4) mg/dL Estim Creat Clear Calc 72.9 Estimated GFR 49 Random Glucose 243 H (60-115) mg/dL Calcium 9.6 (8.4-10.2) mg/dL Total Bilirubin 0.4 (0.0-1.0) mg/dL AST 34 (5-37) U/L ALT 51 H (0-40) U/L Alkaline Phosphatase 150 H (39-117) U/L Total Protein 7.7 (6.5-8.0) g/dL Albumin 4.6 (3.5-5.0) g/dL Urine Color Yellow Urine Appearance Clear Urine pH 5.5 (5.0-9.0) Ur Specific [place] 1.025 (1.005-1.025) Urine Protein Negative (Neg-Trace) mg/dL Urine Glucose (UA) >=1000 H (Negative) mg/dL Urine Ketones Negative (Negative) mg/dL Urine Blood Negative (Negative) Urine Nitrite Negative (Negative) Ur Leukocyte Esterase Trace H (Negative) Urine RBC 0-2 (0-2) /HPF Urine WBC 11-20 H (0-5) /HPF Ur Squamous Epith Cells 0-2 (0-2) /HPF Urine Bacteria None Seen (None Seen) Hyaline Casts 0-2 (0-2) /LPF COVID-19 (JEFFREY) Negative (Negative) COVID-19 Clin Com See Note Influenza Type A (STAR) Negative (Negative) Influenza Type B (STAR) Negative (Negative) Influenza A & B Note See Note Discharge Plan Discharge Clinical Impression: Constipation Qualifiers: Constipation type: unspecified constipation type Qualified Code(s): K59.00 - Constipation, unspecified Patient Disposition: Home, Self-Care Instructions: Constipation (ED) Prescriptions: New senna 8.6 mg capsule 8.6 mg PO BEDTIME Qty: 14 0RF No Action (DME) blood-glucose meter [FreeStyle Lite Meter] Kit See Rx Instructions .Route Qty: 1 5RF Rx Instructions: Tests 4 X/day bisacodyl 5 mg tablet,delayed release (DR/EC) 10 mg PO BID Qty: 90 0RF (DME) lancets [FreeStyle Lancets] 28 gauge misc See Rx Instructions .Route Qty: 100 4RF Rx Instructions: Tests 5x/day (DME) FreeStyle Lite Strips Strip See Rx Instructions .Route Qty: 100 5RF Rx Instructions: Tests 5X/day glycerin (adult) Suppository [address]after shower Qty: 25 6RF (DME) blood-glucose meter [FreeStyle Lite Meter] Kit See Rx Instructions .ROUTE .MEDSUPPLY Qty: 1 0RF Rx Instructions: As directed (DME) FreeStyle Jody 3 [place] Misc See Rx Instructions .ROUTE .MEDSUPPLY Qty: 1 0RF Rx Instructions: As directed for use with freestyle jody 3+ sensor gabapentin 300 mg capsule 300 mg PO BEDTIME 90 Days Qty: 90 1RF furosemide 20 mg tablet 20 mg PO DAILY Qty: 90 1RF (DME) pen needle, diabetic 29 gauge x 1/2 needle See Rx Instructions .ROUTE DAILY Qty: 100 3RF Rx Instructions: As directed daily Jardiance 25 mg tablet 25 mg PO QAM Qty: 30 3RF Fiber Therapy (m-cellulose) 500 mg tablet 1,000 mg PO TID Qty: 180 6RF metformin 500 mg tablet 1,000 mg PO BID 90 Days Qty: 360 1RF Tresiba FlexTouch U-200 200 unit/mL (3 mL) insulin pen 58 unit subcut DAILY 90 Days Qty: 27 3RF cholecalciferol (vitamin D3) 25 mcg (1,000 unit) capsule 25 mcg PO DAILY Qty: 90 4RF atorvastatin 10 mg tablet 10 mg PO DAILY Qty: 90 0RF metoclopramide HCl 10 mg tablet 10 mg PO TID Qty: 90 0RF ibuprofen 800 mg tablet 800 mg PO Q8H PRN (Reason: for pain) 30 Days Qty: 90 0RF Rx Instructions: take with food acetaminophen 500 mg tablet 1,000 mg PO Q6-8H PRN (Reason: pain) Qty: 30 1RF Rx Instructions: SHOULD NOT EXCEED TOTAL DAILY DOSE OF 2000 mg/day - cause affect liver if high dose is taken regularly benztropine 0.5 mg tablet 0.5 mg PO BID acetaminophen 325 mg capsule 650 mg PO Q4H PRN (Reason: pain) Qty: 30 0RF cyclobenzaprine 10 mg tablet 10 mg PO TID PRN (Reason: muscle spasm) Qty: 12 0RF polyethylene glycol 3350 [Miralax] 17 gram/dose powder 17 g PO DAILY Qty: 510 0RF lidocaine [Lidoderm] 5 % adhesive patch,medicated 1 patch topical DAILY Qty: 15 0RF Rx Instructions: leave on most painful area for up to 12 hrs famotidine [Pepcid] 20 mg tablet 20 mg PO DAILY PRN (Reason: abdominal discomfort) Qty: 30 0RF senna 8.6 mg capsule 8.6 mg PO BEDTIME PRN (Reason: constipation) Qty: 30 0RF docusate sodium [Colace] 100 mg capsule 100 mg PO BID PRN (Reason: constipation) Qty: 30 0RF magnesium citrate Solution 150 ml PO DAILY PRN (Reason: constipation) 2 Days Qty: 296 0RF Rx Instructions: only take for the next two days no more than that lidocaine 5 % adhesive patch,medicated 1 patch topical DAILY Qty: 15 0RF Rx Instructions: leave on most painful area for up to 12 hrs clozapine 100 mg tablet 100 mg PO TID sildenafil 50 mg tablet 50 mg PO DAILY PRN (Reason: sexual activity) Qty: 30 0RF Rx Instructions: administer 30 minutes to 4 hours before activity docusate sodium 100 mg capsule 100 mg PO BID Qty: 60 6RF Linzess 290 mcg capsule 290 mcg PO QAM Qty: 30 6RF magnesium hydroxide [Milk of Magnesia] 400 mg/5 mL suspension 20 ml PO BEDTIME PRN (Reason: constipation) Qty: 3780 6RF simethicone 180 mg capsule 180 mg PO TID Qty: 90 6RF Wart Remover 17 % liquid 1 appl topical .every 2 weeks Qty: 9 0RF Rx Instructions: Apply to wart only, repeat in 2 weeks if no improvement. Do not use more than 4 treatments. (DME) [employer]KnewCoin Jody 3 Plus Sensor Device See Rx Instructions .ROUTE .MEDSUPPLY Qty: 2 11RF Rx Instructions: every 15 days for continuous use guaifenesin 200 mg/5 mL liquid 400 mg PO Q6H PRN (Reason: cough) Qty: 118 0RF insulin lispro [Humalog KwikPen Insulin] 100 unit/mL insulin pen 12 unit subcut DAILY 30 Days Qty: 6 6RF Rx Instructions: with the largest meal of the day cetirizine [Zyrtec] 10 mg tablet 10 mg PO DAILY Qty: 30 0RF ketoconazole 2 % cream 1 appl topical DAILY Qty: 30 3RF Print Language: Kazakh
[2025-04-28 12:14] LABS: MANUAL DIFF FLAG NO
[2025-04-28 12:18] LABS: Appearance Urine Clear; Glucose Urine UA >=1000 mg/dL (Negative); PH 5.5 (5.0-9.0); Specific Gravity - Urine 1.025 (1.005-1.025); UMIC TRIGGER UACC YES
[2025-04-28 12:20] LABS: Hematocrit 42.9 % (42.0-52.0); Hemoglobin 15.3 g/dl (14.0-18.0); Imm Gran Abs Auto 0.04 X10*3/uL (0.00-0.03); Imm Gran Pct Auto 0.6 % (0.0-0.4); Lymphocytes Absolute Auto 1.2 X10*3/uL (1.2-4.9); Mean Corpuscular HGB Conc 35.7 g/dl (31.0-36.0); Mean Corpuscular Hemoglobin 29.9 pg (27.0-33.0); Mean Corpuscular Volume 83.8 fL (80.0-98.0); NRBC Abs Auto 0.000 X10*3/uL (0.0-0.012); NRBC Pct Auto 0.0 /100WBC (0.0-0.2); Platelet Count 123 X10*3/uL (160-400); Red Blood Count 5.12 X10*6/uL (4.60-5.80); White Blood Count 6.7 X10*3/uL (4.8-10.8)
[2025-04-28 12:23] LABS: UACC Culture Trigger YES
[2025-04-28 12:31] LABS: Alanine Aminotransferase 51 U/L (0-40); Albumin Level 4.6 g/dL (3.5-5.0); Alkaline Phosphatase 150 U/L (39-117); Anion Gap 14 (12-20); Aspartate Amino Transferase 34 U/L (5-37); Blood Urea Nitrogen 25 mg/dL (9-16); Calcium 9.6 mg/dL (8.4-10.2); Carbon Dioxide 24 mmol/L (22-29); Chloride 107 mmol/L (96-108); Creatinine Clr Calc Pharmacy 72.9; Estimated Glomerular Filt Rate 49; Potassium 4.3 mmol/L (3.3-5.1); Sodium 141 mmol/L (135-145); Total Protein 7.7 g/dL (6.5-8.0)
[2025-04-28 12:35] LABS: IDNOW Serial# 58CA691E; Influenza B2 Negative (Negative)
[2025-04-28 12:40] LABS: COVID-19 Test Negative (Negative); IDNOW Serial# 55D5AD1C
--- OUTSIDE RECORDS SUMMARY | 2025-04-28 16:42 | XMS_ITS | Patient Health Record ---
[facility] [place] Address [address] [place] [address] Care Team Providers Care Stage Hand Name Role Phone Jose RENAE, Luis Manuel Primary Care Provider UnaTu Paul Unavailable [phone] Allergies No Known Allergies Results Component Value [...] Problem Acquired hammer toe of right foot (370745240953587 5) Other hammer toe(s) (acquired), right foot (M20.41) Active confirmed Problem Plantar fascial fibromatosis (97018406) Plantar fascial fibromatosis (M72.2) Active confirmed Problem Acquired hammer toe of left foot (293841761143520 3) Other hammer toe(s) (acquired), left foot (M20.42) Active confirmed Problem Type II diabetes mellitus without complication (873600533) Type 2 diabetes mellitus without complication (E11.9) Active confirmed Vital Signs Blood pressure diastolic 80 mm Hg 08/30/2024 Height 6ft in 08/30/2024 Blood pressure systolic 130 mm Hg 08/30/2024 Weight 270 lbs 08/30/2024 BMI 36.61 kg/m2 08/30/2024 Procedures Procedure Date Ordered Date Performed Result Body Sit e 62832-DQIDFJF NAIL, 6 OR MORE 06/21/2024 N/A 62463-WXYX SKIN LESIONS, 2 TO 4 06/21/2024 N/A 65049-VZZEFET NAIL, 6 OR MORE 08/30/2024 N/A 56608-RIWT SKIN LESIONS, 2 TO 4 08/30/2024 N/A Encounters Encounter [facility] Date [facility] [address] [facility]/21/2024 Tu Michelunier Tinea unguium B35.1 ; Pain in right toe(s) M79.674 ; Pain in left toe(s) M79.675 ; Achilles tendinitis of right lower extremity M76.61 and Type 2 diabetes mellitus without complication E11.9 [facility] [address] 08/30/2024 Tu Gabby Pain in right toe(s) M79.674 ; Tinea unguium B35.1 ; Pain in left toe(s) M79.675 ; Type 2 diabetes mellitus without complication E11.9 ; Other hammer toe(s) (acquired), right foot M20.41 and Other hammer toe(s) (acquired), left foot M20.42 [facility] [address] [address] 09/03/2024 Tu Gabby [facility] [address] [address] 10/01/2024 Tuwilliam Pierre [facility] [address] 12/06/2024 Tuwilliam Pierre Plantar fascial fibromatosis M72.2 Assessments Encounter [...] X ray : Foot, right 3V 03/08/2024 27558-WAMPRMD NAIL, 6 OR MORE 03/08/2024 47742-WTEPVJB NAIL, 6 OR MORE 06/21/2024 98906-FSYHDSP NAIL, 6 OR MORE 08/30/2024 99769-Jhdmfxvu Plate 03/08/2024 69653-ESIY SKIN LESIONS, 2 TO 4 03/08/20 41596-KUZR SKIN LESIONS, 2 TO 4 08/30/19 56258-KKEP SKIN LESIONS, 2 TO 4 06/21/20 Insurance Providers Payer Name Payer Address Payer Phone Subscriber Number Group Number Insured Name Patient Relationship to Insured Coverage Start Date [facility]age End Date [facility] Claims [address] [place] [phone] [id number] Mike Cornejo Self - patient is the insured Medical (General) History Medical History History ICD Code Diabetic Surgical History Surgery Date(Month/Year)
[2025-04-28 17:51] VITALS: BP 125/89; PULSE 86; RESP 18; TEMP 36.4; O2SAT 98
[2025-04-28 19:26] VITALS: BP 125/89; PULSE 86; RESP 18; TEMP 36.4; O2SAT 98
== END 2025-04-28 19:26 | disposition home or self-care (01) ==
PROVIDERS: Registered Nurse Emergency; Emergency Provider Student in an Organized Health Care Education/Training Program; PCP Internal Medicine
DX: K59.00 Constipation, unspecified (principal); R61 Generalized hyperhidrosis; Z11.52 Encounter for screening for COVID-19; Z79.899 Other long term (current) drug therapy
CPT/HCPCS: 74018; 80053; 81001; 85025; 87086; 87502; 87635; 99284

== ENCOUNTER → 2025-04-28 11:52 | Outpatient (BNV) | payer OTHER, SELFPAY | PROVIDERS: PCP Internal Medicine; Visit Provider Radiology Diagnostic Radiology | DX: K59.00 Constipation, unspecified (principal) | CPT/HCPCS: 74018 ==

== ENCOUNTER 2025-05-08 10:35 | Outpatient (AMB) | payer OTHER, SELFPAY ==
[2025-05-08 10:43] VITALS: BP 94/68; PULSE 91; O2SAT 97; BMI 36.8
--- NOTE | 2025-05-08 10:43 | A.OFFVIS_ITS ---
Vital Signs 05/08/25 10:43 Height 6 ft 1 in Weight 279 lb 1.683 oz BMI 36.8 BP 94/68 Blood Pressure Location Rt brachial Position Sitting Pulse 91 Pulse Source Pulse Oximeter Pulse Oximetry (%) 97 Oxygen Delivery Method Room Air Intake Visit Reasons: f/u Type 2 DM Intake Note: Patient present today to follow up on Type 2 Diabetes Mellitus. Patient receives Jody 3 plus supplies through: [facility] Last Diabetic Eye exam: 08/08/2024 [facility] Last Podiatry Visit: 08/30/2024 [facility] Random Glucose: 217 mg/dl HgA1C: 6.6% 05/08/2025 Web Systems Developer Required: No Accompanied by: Self / Same As Patient Allergies No Known Allergies (No Known Allergies*) Allergy (Verified 05/08/25 10:44) HPI Comments Details: Patient is a 64-year-old male with DM type 2 diagnosed in 1990 who presents for f/u. He has hypoglycemia unawareness and limited insight into his diabetes. Dexcom average glucose: 165 14 day continuous glucose monitor report reviewed Glucose Managment indicator 7.3 % Days with CGM data 84 % TIme in ranges: 2 % very high (above 250) 35 % high ?(181-250) 63 % in range ?(70-180] 0 % low (69-55) 0 % ?very low (below 54) Glucose variability 22.7% desired less than 36 Pattern shows increase point of cares overnight with decreases during the day into normal range Tresiba 58 units Humalog 12 units before largest meal of the day jardiance 10 mg daily metformin 500mg bid He has tried several of the G LP 1 agonist including Trulicity and Mounjaro and had constipation abdominal issues Rare hypoglycemia Retinopathy: last eye exam 08/08/24 Neuropathy:+ he has a endocrinology physician but missed his last appointment Has Nephropathy: EGFR>60 12/22/24 microalbumin: 07/2024 Less than 5.0 Has HLD on statin last ldl 79 07/2024 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: occurs after work when has not eaten all day. None on current monitor Hyperglycemia: occasional urinary frequency, + nocturia 3-5x, +polydypsia PFSH Medical History Acute respiratory disease Impacted cerumen, right ear Acute diarrhea Pain in both feet Calcaneal spur of right foot Achilles tendinitis Callus of foot Right hand pain Abdominal bloating Vertigo Calcaneal spur Colon cancer screening COVID-19 Pre-op examination Elevated LFTs Encounter for Medicare annual wellness exam Bowel obstruction Melena Knee pain, bilateral Gastroenteritis Healed wound Chronic idiopathic constipation Chronic idiopathic constipation Hospital discharge follow-up Knee osteoarthritis Obesity (BMI 30-39.9) Schizoaffective disorder Pure hypercholesterolemia Benign essential hypertension Chronic kidney disease (CKD), stage III (moderate) Type 2 diabetes mellitus with diabetic chronic kidney disease Morbid obesity Dyslipidemia 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 diabetes mellitus 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 Diabetic polyneuropathy associated with type 2 diabetes mellitus Schizo affective schizophrenia Diabetes type 2, uncontrolled Surgical History History of repair of congenital cleft palate Hx of circumcision Family History Father HTN (hypertension) Mother Diabetes Other Mental health problem Social History Household Members: None Housing: Apartment Are you a primary transitional care manager to a significant other at home: No Do you presently have visiting nurse or other home services: Yes Alcohol intake: former Patient Tobacco Use Status: Former Tobacco user Tobacco use type: Cigarette Cigarettes Per Day: 15 Years Smoked: 8 quit 30 years ago e-Cigarette/Vaping Use: Never Used Second Hand Smoke Exposure: No service: No Current occupational status: employed Current occupation: [employer] Cognitive needs: No Hearing needs: No Vision needs: Yes (glasses) Physical Exam Vital Signs: Last Vital Signs Pulse 91 05/08/25 10:43 BP 94/68 05/08/25 10:43 Pulse Ox 97 05/08/25 10:43 Oxygen Delivery Method Room Air 05/08/25 10:43 BMI result Body Mass Index 36.8 Const Other: Absence of Cushingoid features. Absence of acromegalic features. Neck exam reveals nl size thyroid about 15 gms. No thyroid nodules palpable. Heart S1 S2, Reg R/R. No M/R G. Skin exam reveals absence of vitiligo or acanthosis nigricans. No edema Visual exam of foot performed. No ulcerations or open lesions. No inter digit maceration or fissuring. + onychomycosis nail beds, several nails elongated no callouses. Sensation diminished to monofilament exam. Vibratory sensation is absent with 128 Hz tuning fork. pulse positve Results AMB Hemoglobin A1c AMB Hemoglobin A1c 6.6 % Last Edit by VALENTINO Tapia on 05/08/25 11:03 Results Reviewed Results Reviewed: Laboratory Last Values Glucose (Clinic) 217 mg/dL (60-115) H 05/08/25 10:50 Assessment & Plan Assessment & Plan (1) Type 2 diabetes mellitus with diabetic chronic kidney disease: Code(s): E11.22 - Type 2 diabetes mellitus with diabetic chronic kidney disease Category: Medical Qualifiers: Chronic kidney disease stage: stage 3 (moderate) Chronic kidney disease stage 3 subtype: unspecified whether 3a or 3b 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: with shelter use Qualified Code(s): E11.22 - Type 2 diabetes mellitus with diabetic chronic kidney disease; N18.30 - Chronic kidney disease, stage 3 unspecified; Z79.4 - continuous churn buttermaker (current) use of insulin Plan: This is a 64-year-old white male with a history of type 2 diabetes being treated metformin, Jardiance and basal-bolus insulin with history of hypoglycemic unawareness and known microvascular complications namely neuropathy and CKD. He has excellent glycemic control is at goal of A1c of 6.6% . Plan is to continue the current therapy. We will have patient check microalbumin to creatinine ratio as well as lipid profile is ordered by his primary care provider. He will follow up with the primary care diabetes team in about 4 months Orders: Orders AMB Hemoglobin A1c Today E11.649 - Type 2 diabetes mellitus with hypoglycemia without coma Coding Level of Care Code Est Pt Level 4 (71042) Complex EM visit Add On G2211 Diagnoses Type 2 diabetes mellitus with stage 3 chronic kidney disease, with long-term current use of insulin, unspecified whether stage 3a or 3b CKD E11.22; N18.30; Z79.4 Chronic kidney disease stage: stage 3 (moderate) Chronic kidney disease stage 3 subtype: unspecified whether 3a or 3b 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: with shelter use
[2025-05-08 10:55] LABS: Glucose, Whole Blood 217 mg/dL (60-115)
== END 2025-05-08 11:26 | disposition home or self-care (01) ==
LOC: HO.ENCR 10:36
PROVIDERS: PCP Internal Medicine; Visit Provider Internal Medicine Endocrinology, Diabetes & Metabolism
DX: E11.22 Type 2 diabetes mellitus with diabetic chronic kidney disease (principal); N18.30 Chronic kidney disease, stage 3 unspecified; Z79.4 Long term (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; E11.649 Type 2 diabetes mellitus with hypoglycemia without coma
CPT/HCPCS: 99214; G2211

== ENCOUNTER → 2025-05-08 10:35 | Outpatient (BNVA) | payer OTHER, SELFPAY | PROVIDERS: PCP Internal Medicine; Visit Provider Internal Medicine Endocrinology, Diabetes & Metabolism | DX: E11.42 Type 2 diabetes mellitus with diabetic polyneuropathy (principal); E11.22 Type 2 diabetes mellitus with diabetic chronic kidney disease; N18.30 Chronic kidney disease, stage 3 unspecified; Z79.4 Long term (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 | CPT/HCPCS: 82947; 83036; 99211; 99212 ==

== ENCOUNTER 2025-05-08 11:27 | Outpatient (AMB) | payer OTHER, SELFPAY ==
--- NOTE | 2025-05-08 11:20 | A.OFFVIS_ITS ---
Intake Intake Visit Reasons: 60 min Transfer Car Operator Required: No Accompanied by: Self / Same As Patient Allergies No Known Allergies (No Known Allergies*) Allergy (Verified 05/08/25 10:44) HPI Comprehensive Diabetes Asmnt Most Recent Diabetes Results: 2 Microalb/Creat Ratio TNP 07/19/24 Cholesterol, (<200) 162 mg/dL 07/19/24 HDL Cholesterol, (>40) 34 mg/dL L 07/19/24 Triglycerides, (<150) 247 mg/dL H 07/19/24 Creatinine, (0.5-1.4) 1.46 mg/dL H 04/28/25 BUN, (9-16) 25 mg/dL H 04/28/25 Sodium, (135-145) 141 mmol/L 04/28/25 Potassium, (3.3-5.1) 4.3 mmol/L 04/28/25 Chloride, (96-108) 107 mmol/L 04/28/25 Carbon Dioxide, (22-29) 24 mmol/L 04/28/25 Calcium, (8.4-10.2) 9.6 mg/dL 04/28/25 AST, (5-37) 34 U/L 04/28/25 ALT, (0-40) 51 U/L H 04/28/25 Total Protein, (6.5-8.0) 7.7 g/dL 04/28/25 Albumin, (3.5-5.0) 4.6 g/dL 04/28/25 [facility] Medical History Acute respiratory disease Impacted cerumen, right ear Acute diarrhea Pain in both feet Calcaneal spur of right foot Achilles tendinitis Callus of foot Right hand pain Abdominal bloating Vertigo Calcaneal spur Colon cancer screening COVID-19 Pre-op examination Elevated LFTs Encounter for Medicare annual wellness exam Bowel obstruction Melena Knee pain, bilateral Gastroenteritis Healed wound Chronic idiopathic constipation Chronic idiopathic constipation Hospital discharge follow-up Knee osteoarthritis Obesity (BMI 30-39.9) Schizoaffective disorder Pure hypercholesterolemia Benign essential hypertension Chronic kidney disease (CKD), stage III (moderate) Type 2 diabetes mellitus with diabetic chronic kidney disease Morbid obesity Dyslipidemia 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 diabetes mellitus buttermaker (current) use of insulin Diabetic polyneuropathy associated with type 2 diabetes mellitus Schizo affective schizophrenia Diabetes type 2, uncontrolled Surgical History History of repair of congenital cleft palate Hx of circumcision Family History Father HTN (hypertension) Mother Diabetes Other Mental health problem Social History Household Members: None Housing: Apartment Are you a primary memory care program resident to a significant other at home: No Do you presently have visiting nurse or other home services: Yes Alcohol intake: former Patient Tobacco Use Status: Former Tobacco user Tobacco use type: Cigarette Cigarettes Per Day: 15 Years Smoked: 8 quit 30 years ago e-Cigarette/Vaping Use: Never Used Second Hand Smoke Exposure: No service: No Current occupational status: employed Current occupation: [employer] Cognitive needs: No Hearing needs: No Vision needs: Yes (glasses) Assessment & Plan Assessment & Plan (1) Diabetic polyneuropathy associated with type 2 diabetes mellitus: Code(s): E11.42 - Type 2 diabetes mellitus with diabetic polyneuropathy Plan: Learning objectives: The patient was provided with verbal and written education on the following topics as outlined below. Assess patient education level/literacy/barriers, patient's A1c today was 6.6% Patient reports he eats 2 meals a day, instructed patient to be mindful of portions of pasta and rice at meals. Patient reports he eats approximately 3 cups of pasta at 1 meal, sometimes up to 2 cups of rice Patient denies missing mealtime doses of Humalog Patient questions/concerns, at today's visit we inserted Jody 3 sample sensor given to patient by Dr. Carrillo The patient met all learning objectives and was able to verbalize understanding and provide teach back of education topics discussed . The patient was provided with the opportunity to ask questions and all questions were answered. Topics covered in today?s session included: 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 and Hyperglycemia * Signs and symptoms? * Causes?? * Treatment? * Preventing hypoglycemia? * When to seek medical attention Target Goals: * Blood glucose targets and how you feel when your blood glucose is in and out of your target ranges. * Monitoring and knowing your A1C. * What can make blood glucose go up and down and preventing high and low blood glucose. * Review of blood sugar targets in expected goal range and outside of expected goal range. * Problem solving and preventing hyper/hypoglycemia. * Sick day management of diabetes. * Using blood sugar results in decision making process in managing diabetes. ?Patient was receptive to information provided and participated in the discussion. Asked?appropriate questions and demonstrated good understanding of the topics discussed.? ? Educational Materials: The patient was provided with the following written educational materials: Target Goal handout Portions of this note were created using voice recognition software, please excuse any words or phrases that may have been misinterpreted. Coding Level of Care Code Est Pt Level 1 (87780) Diagnoses Diabetic polyneuropathy associated with type 2 diabetes mellitus E11.42 Results AMB Hemoglobin A1c 2 AMB Hemoglobin A1c 6.6 % Last Edit by VALENTINO Tapia on 05/08/25 11:03
== END 2025-05-08 11:30 | disposition home or self-care (01) ==
LOC: HO.ENCR 11:28
PROVIDERS: PCP Internal Medicine; Visit Provider Registered Nurse Diabetes Educator
DX: E11.42 Type 2 diabetes mellitus with diabetic polyneuropathy (principal)

== ENCOUNTER 2025-05-16 13:38 | Outpatient (REF) | payer OTHER, SELFPAY ==
--- OUTSIDE RECORDS SUMMARY | 2024-11-15 06:00 | XMS_ITS ---
Author Organization [facility] Address [address] [place] [address] Care Team Providers Care Reefer Engineer Name Role Phone Luis Manuel Garcia MD Primary Care Provider Unava ilTu [place] Unavailable [phone] Encounters Encounter Location Date Provider Diagnosis [facility] [address] [place] [address] 11/15/2024 Tu Pierre Plan Of Treatment No Information Progress Notes * Mike BAIRDDOB:[birth year] (64 yo M)Acc No.[id number]:11/15/2024 Progress Note Patient: Mike JACOBO Provider: Magaly Pierre DPM :1960 A ge:64 Y S ex:Male Date:11/15/2024 Address:[address] [id number] Pcp:Luis Manuel Garcia MD Subjective: * Chief [...] DPM Date: 0 11/15/2024 Generated for Ruthy wood/Garrison/eTcheryl on: 01:53 PM EDT
--- OUTSIDE RECORDS SUMMARY | 2025-05-16 13:53 | XMS_ITS | Patient Health Record ---
[facility] ayde Verdi Address [address] [place] [address] Care Team Providers Care Punch Press Feeder Name Role Phone Jose RENAE, Luis Manuel Primary Care Provider UnaTu Paul Unavailable [phone] Allergies No Known Allergies Results Component Value [...] Problem Acquired hammer toe of right foot (749244055485388 5) Other hammer toe(s) (acquired), right foot (M20.41) Active confirmed Problem Plantar fascial fibromatosis (77855670) Plantar fascial fibromatosis (M72.2) Active confirmed Problem Acquired hammer toe of left foot (032169495701093 3) Other hammer toe(s) (acquired), left foot (M20.42) Active confirmed Problem Type II diabetes mellitus without complication (914226880) Type 2 diabetes mellitus without complication (E11.9) Active confirmed Vital Signs Blood pressure diastolic 80 mm Hg 08/30/2024 Height 6ft in 08/30/2024 Blood pressure systolic 130 mm Hg 08/30/2024 Weight 270 lbs 08/30/2024 BMI 36.61 kg/m2 08/30/2024 Procedures Procedure Date Ordered Date Performed Result Body Sit e 58429-FSJRQKA NAIL, 6 OR MORE 06/21/2024 N/A 04902-MTMT SKIN LESIONS, 2 TO 4 06/21/2024 N/A 88037-NKTAOTI NAIL, 6 OR MORE 08/30/2024 N/A 27245-BEOL SKIN LESIONS, 2 TO 4 08/30/2024 N/A Encounters Encounter Location Date Provider [facility] [address] 06/21/2024 Tu Michelunier Tinea unguium B35.1 ; Pain in right toe(s) M79.674 ; Pain in left toe(s) M79.675 ; Achilles tendinitis of right lower extremity M76.61 and Type 2 diabetes mellitus without complication E11.9 [facility] [address] 08/30/2024 Tu Gabby Pain in right toe(s) M79.674 ; Tinea unguium B35.1 ; Pain in left toe(s) M79.675 ; Type 2 diabetes mellitus without complication E11.9 ; Other hammer toe(s) (acquired), right foot M20.41 and Other hammer toe(s) (acquired), left foot M20.42 [facility] [address] [address] 09/03/2024 Tu Gabby [facility] [address] [address] 10/01/2024 Tuwilliam Pierre [facility] [address] 12/06/2024 Tuwilliam Pierre Plantar fascial fibromatosis M72.2 [...] X ray : Foot, right 3V 03/08/2024 53768-BPNOWPT NAIL, 6 OR MORE 03/08/2024 22092-QHGEQRU NAIL, 6 OR MORE 06/21/2024 62333-VZWYLWZ NAIL, 6 OR MORE 08/30/2024 78498-Vyhfxztz Plate 03/08/2024 22133-PDUB SKIN LESIONS, 2 TO 4 03/08/20 46268-WCIZ SKIN LESIONS, 2 TO 4 08/30/19 84857-DFOW SKIN LESIONS, 2 TO 4 06/21/20 Insurance Providers Payer Name Payer Address Payer Phone Subscriber Number Group Number Insured Name Patient Relationship to Insured Coverage Start Date Coverage End Date [facility] [employer] Claims [address] [place] [id number] [phone] [id number] Mike Cornejo Self - patient is the insured Medical (General) History Medical History History ICD Code Diabetic Surgical History Surgery Date(Month/Year)
[2025-05-16 16:19] LABS: MANUAL DIFF FLAG NO
[2025-05-16 18:11] LABS: Hematocrit 44.2 % (42.0-52.0); Hemoglobin 15.6 g/dl (14.0-18.0); Imm Gran Abs Auto 0.03 X10*3/uL (0.00-0.03); Imm Gran Pct Auto 0.4 % (0.0-0.4); Lymphocytes Absolute Auto 1.4 X10*3/uL (1.2-4.9); Mean Corpuscular HGB Conc 35.3 g/dl (31.0-36.0); Mean Corpuscular Hemoglobin 29.5 pg (27.0-33.0); Mean Corpuscular Volume 83.6 fL (80.0-98.0); NRBC Abs Auto 0.000 X10*3/uL (0.0-0.012); NRBC Pct Auto 0.0 /100WBC (0.0-0.2); Platelet Count 131 X10*3/uL (160-400); Red Blood Count 5.29 X10*6/uL (4.60-5.80); White Blood Count 7.1 X10*3/uL (4.8-10.8)
== END 2025-05-16 13:39 | disposition home or self-care (01) ==
LOC: HO.HMGCLR 13:38
PROVIDERS: PCP Internal Medicine; Visit Provider Psychiatry & Neurology Psychiatry
DX: Z79.899 Other long term (current) drug therapy (principal)
CPT/HCPCS: 36415; 85025

== ENCOUNTER 2025-05-22 09:40 | Outpatient (AMB) | payer OTHER, SELFPAY ==
--- NOTE | 2025-05-22 09:39 | MHC.OFFVIS ---
Intake Visit Reasons: urinary incontinence Intake Note: New Patient is present for urinary incontinence Urology Rx:sildenafil PVR:147 Blood Thinners:none Imaging completed: none Geographic Information System Surveyor Required: No Accompanied by: Self / Same As Patient Allergies No Known Allergies (No Known Allergies*) Allergy (Verified 05/22/25 09:41) HPI Comments Details: Eddy is a pleasant male. He is a patient of Dr. Garcia. He is seen for the following urologic conditions - lower urinary tract symptoms - erectile dysfunction Background of developmental delay States he has trouble finding his penis to urinate Is also prone to urinary urgency Also can not remember when he last had an erection Has tried Viagra in the past On exam is morbid obesity and whilst standing his penis is visible. However he can not reach it with his hand because he is unable to get around his abdomen. Advised him to sit to urinate Will Trial daily tadalafil to assist with bladder stability and tamsulosin for urinary emptying Did suggest that he could bring up GLP 1 injections with his primary care [facility] Medical History Acute respiratory disease Impacted cerumen, right ear Acute diarrhea Pain in both feet Calcaneal spur of right foot Achilles tendinitis Callus of foot Right hand pain Abdominal bloating Vertigo Calcaneal spur Colon cancer screening COVID-19 Pre-op examination Elevated LFTs Encounter for Medicare annual wellness exam Bowel obstruction Melena Knee pain, bilateral Gastroenteritis Healed wound Chronic idiopathic constipation Chronic idiopathic constipation Hospital discharge follow-up Knee osteoarthritis Obesity (BMI 30-39.9) Schizoaffective disorder Pure hypercholesterolemia Benign essential hypertension Chronic kidney disease (CKD), stage III (moderate) Type 2 diabetes mellitus with diabetic chronic kidney disease Morbid obesity Dyslipidemia 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 diabetes mellitus 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 Diabetic polyneuropathy associated with type 2 diabetes mellitus Schizo affective schizophrenia Diabetes type 2, uncontrolled Surgical History History of repair of congenital cleft palate Hx of circumcision Family History Father HTN (hypertension) Mother Diabetes Other Mental health problem Social History Household Members: None Housing: Apartment Are you a primary managed care director to a significant other at home: No Do you presently have visiting nurse or other home services: Yes Alcohol intake: former Patient Tobacco Use Status: Former Tobacco user Tobacco use type: Cigarette Cigarettes Per Day: 15 Years Smoked: 8 quit 30 years ago e-Cigarette/Vaping Use: Never Used Second Hand Smoke Exposure: No service: No Current occupational status: employed Current occupation: [employer] Cognitive needs: No Hearing needs: No Vision needs: Yes (glasses) Review of Systems Const Denies chills and Denies fever(s) Card Reports no additional complaints and Denies syncope Resp Denies cough GI Denies abdominal pain and Denies heartburn Reports as per HPI and Denies change in libido Neuro Denies syncope Psych Denies change in libido Endo Denies change in libido Physical Exam Const General: cooperative, healthy appearing, comfortable and no acute distress Orientation/consciousness: patient oriented x3 HEENT Face and sinus: Yes normal facial exam Mouth: moist mucous membranes Neck Neck: Yes normal visual inspection, Yes full ROM and Yes trachea midline Chest Chest palpation & inspection: normal inspection of the chest Resp Effort & Inspection: normal respiratory effort, able to speak in complete sentences and no respiratory distress GI Inspection: Yes normal to inspection Back/Spine/Pelvis Cervical Spine: normal cervical lordosis Thoracic/Lumbar Spine: thoracic and lumbar spine normal to inspection Skin General skin exam: no rashes or lesions noted Neuro General: patient oriented x3, gait normal, tone normal and moves all extremities Extrem General: Yes normal to inspection and Yes capillary refill normal Assessment & Plan Assessment & Plan (1) Erectile dysfunction associated with type 2 diabetes mellitus: Code(s): E11.69 - Type 2 diabetes mellitus with other specified complication; N52.1 - Erectile dysfunction due to diseases classified elsewhere Category: Medical (2) Bladder outlet obstruction: Code(s): N32.0 - Bladder-neck obstruction Category: Medical Plan Trial Flomax and tadalafil Orders: Orders PSA,Total (Free>4and<10) Today N32.0 - Bladder-neck obstruction US bladder Today N32.0 - Bladder-neck obstruction Medications: New tamsulosin (Flomax) 0.4 mg PO BEDTIME 90 tabs 1RF 90 days N32.0 - Bladder-neck obstruction tadalafil 5 mg PO DAILY 90 tabs 0RF 90 days N32.0 - Bladder-neck obstruction Patient Instructions: This note is constructed using voice recognition software. While every effort has been made to ensure accuracy lead database developer errors may have been included. Imaging studies, laboratory and physical exam results were discussed and reviewed in detail. No major barriers to patient understanding were identified. An opportunity to ask questions regarding the treatment plan was provided. All questions were answered. The patient expressed understanding and agreement with the above treatment plan. The patient is aware they should contact our office by phone for worsening of their current condition or the appearance of new urologic symptoms. Compliance is encouraged with any medications and followup testing that is ordered. It is a privilege to participate in the urologic care of your patient. If you have any questions or concerns regarding treatment for the above conditions, or other urologic issues, please do not hesitate to contact me. The office telephone contact is [phone]. Sincerely, Dr Barber Samano MD, [facility] - Urology Compassionate Specialist Care for the Genitourinary System Coding Level of Care Code New Pt Level 4 (58102) Complex EM visit Add On G2211 Diagnoses Erectile dysfunction associated with type 2 diabetes mellitus E11.69; N52.1 Bladder outlet obstruction N32.0
== END 2025-05-22 10:29 | disposition home or self-care (01) ==
LOC: HO.HUSH 09:41
PROVIDERS: PCP Internal Medicine; Visit Provider Urology
DX: E11.69 Type 2 diabetes mellitus with other specified complication (principal); N52.1 Erectile dysfunction due to diseases classified elsewhere; N32.0 Bladder-neck obstruction; R39.198 Other difficulties with micturition
CPT/HCPCS: 99204; G2211

== ENCOUNTER → 2025-05-22 09:40 | Outpatient (BNVA) | payer OTHER, SELFPAY | PROVIDERS: PCP Internal Medicine; Visit Provider Urology | DX: E11.69 Type 2 diabetes mellitus with other specified complication (principal); N52.1 Erectile dysfunction due to diseases classified elsewhere; N32.0 Bladder-neck obstruction | CPT/HCPCS: 51798; 81003; 99202 ==

== ENCOUNTER → 2025-06-06 13:43 | Outpatient (AMB) | payer OTHER, SELFPAY ==
--- OUTSIDE RECORDS SUMMARY | 2024-11-15 06:00 | XMS_ITS ---
Author Organization [facility] Address [address] [place] [address] Care Team Providers Care Multiple Coil Winder Name Role Phone Luis Manuel Garcia MD Primary Care Provider Unava Tu Frederick Unavailable [phone] Encounters Encounter Location Date Provider Diagnosis [facility] [address] [place] [address] 11/15/2024 Tu Pierre Plan Of Treatment No Information Progress Notes * Mike BAIRDDOB:[birth year] (64 yo M)Acc No.[id number]:11/15/2024 Progress Note Patient: Mike JACOBO Provider: Magaly Pierre DPM :1960 A ge:64 Y S ex:Male Date:11/15/2024 Address:[address] [place] Pcp:Luis Manuel Garcia MD Subjective: * Chief [...] DPM Date: 0 11/15/2024 Generated for Ruthy wood/Garrison/eTalmasmitting on: 03:47 PM EDT
[2025-06-06 13:50] VITALS: BP 110/82; PULSE 83; O2SAT 96; BMI 37.1
--- NOTE | 2025-06-06 13:50 | A.OFFPC_ITS ---
Vital Signs 06/06/25 13:50 Height 6 ft 1 in Weight 281 lb 6 oz BMI 37.1 BP 110/82 Blood Pressure Location Lt brachial Position Sitting Pulse 83 Pulse Source Pulse Oximeter Pulse Oximetry (%) 96 Oxygen Delivery Method Room Air Intake Visit Reasons: 3mth f/u Roll Up Helper Required: No Accompanied by: Self / Same As Patient Allergies No Known Allergies (No Known Allergies*) Allergy (Verified 06/07/25 08:33) Medication List - Last Reconciled 06/07/25 by Luis Manuel Garcia MD acetaminophen 650 mg (2 x 325 mg) PO Q4H PRN acetaminophen 1,000 mg (2 x 500 mg) PO Q6-8H PRN atorvastatin 10 mg PO DAILY benztropine 0.5 mg PO BID bisacodyl 10 mg (2 x 5 mg) PO BID Held on 01/11/24. 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 (FreeStyle Jody 3 [place]) As directed for use with freestyle jody 3+ sensor cetirizine (Zyrtec) 10 mg PO DAILY cholecalciferol (vitamin D3) 25 mcg PO DAILY clozapine 100 mg PO TID cyclobenzaprine 10 mg PO TID PRN docusate sodium (Colace) 100 mg PO BID PRN docusate sodium 100 mg PO BID empagliflozin (Jardiance) 25 mg PO QAM famotidine (Pepcid) 20 mg PO DAILY PRN furosemide 20 mg PO DAILY gabapentin 300 mg PO BEDTIME 90 days glycerin (adult) 2 supp ME .after shower guaifenesin 400 mg (10 mL) PO Q6H PRN Humalog KwikPen Insulin (insulin lispro) 12 units (0.12 mL) subcut DAILY 30 days NS ibuprofen 800 mg PO Q8H PRN 30 days ketoconazole 2% 1 appl topical DAILY lancets (FreeStyle Lancets) Tests 5x/day lidocaine 5% (Lidoderm) 1 patch topical DAILY lidocaine 5% 1 patch topical DAILY linaclotide (Linzess) 290 mcg PO QAM magnesium citrate 150 mL PO DAILY PRN 2 days magnesium hydroxide (Milk of Magnesia) 20 mL PO BEDTIME PRN metformin 1,000 mg (2 x 500 mg) PO BID 90 days methylcellulose (laxative) (Fiber Therapy (methylcellulose)) 1,000 mg (2 x 500 mg) PO TID metoclopramide HCl 10 mg PO TID pen needle, diabetic As directed daily polyethylene glycol 3350 (Miralax) 17 grams PO DAILY salicylic acid 17% (Wart Remover) 1 appl topical .every 2 weeks sennosides (senna) 8.6 mg PO BEDTIME PRN sennosides (senna) 8.6 mg PO BEDTIME sildenafil 50 mg PO DAILY PRN simethicone 180 mg PO TID tadalafil 5 mg PO DAILY 90 days tamsulosin (Flomax) 0.4 mg PO BEDTIME 90 days Tresiba FlexTouch U-200 (insulin degludec) 58 units (0.29 mL) subcut DAILY 90 days NS Tobacco use date assessed: 06/06/25 Dental Screening Dental Screen Date: 06/06/25 Did you have a dental visit in the last 12 months?: No Did you have a dental problem in the last 6 months where you did not have access to dental care?: No Was dental information given to patient?: Patient has dentist HPI 3mth f/u HPI Details Patient comes in today for his follow-up visit States that he feels okay He denies any headaches or dizziness Denies any chest pains, no shortness of breath No nausea/vomiting, no abdominal pain No change in bowel habits noted He had some follow-up labs done a few weeks ago but these were nonfasting - to discuss his results [facility] Medical History Acute respiratory disease Impacted cerumen, right ear Acute diarrhea Pain in both feet Calcaneal spur of right foot Achilles tendinitis Callus of foot Right hand pain Abdominal bloating Vertigo Calcaneal spur Colon cancer screening COVID-19 Pre-op examination Elevated LFTs Encounter for Medicare annual wellness exam Bowel obstruction Melena Knee pain, bilateral Gastroenteritis Healed wound Chronic idiopathic constipation Chronic idiopathic constipation Hospital discharge follow-up Knee osteoarthritis Obesity (BMI 30-39.9) Schizoaffective disorder Pure hypercholesterolemia Benign essential hypertension Chronic kidney disease (CKD), stage III (moderate) Type 2 diabetes mellitus with diabetic chronic kidney disease Morbid obesity Dyslipidemia 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 diabetes mellitus 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 Diabetic polyneuropathy associated with type 2 diabetes mellitus Schizo affective schizophrenia Diabetes type 2, uncontrolled Surgical History History of repair of congenital cleft palate Hx of circumcision Family History Father HTN (hypertension) Mother Diabetes Other Mental health problem Social History Household Members: None Housing: Apartment Are you a primary physician assistant primary care to a significant other at home: No Do you presently have visiting nurse or other home services: Yes Alcohol intake: former Patient Tobacco Use Status: Former Tobacco user Tobacco use type: Cigarette Cigarettes Per Day: 15 Years Smoked: 8 quit 30 years ago e-Cigarette/Vaping Use: Never Used Second Hand Smoke Exposure: No service: No Current occupational status: employed Current occupation: [employer] Cognitive needs: No Hearing needs: No Vision needs: Yes (glasses) Questionnaire PHQ-9 Over the last 2 weeks, how often have you been bothered by any of the following problems? Depression Screening Interpretation: Positive Depression Screening Follow-up: Existing condition and In treatment Depression Screening Done: Yes Source: Developed by Drs. Foster Queen, Shahla Vo, Lambert Sanchez and colleagues, with an educational german from [employer]. Thrive Questionnaire Date Thrive assessed: 03/05/25 I am a: Patient What is your living situation today?: I choose not to answer this question Within the past 12 months, did the food you bought not last and you didn't have the money to get more?: I choose not to answer this question Within the past 12 months, did you worry whether your food would run out before you got money to buy more?: I choose not to answer this question Do you have trouble paying for medicines?: No Do you have trouble getting transportation to medical appointments?: No Do you have trouble paying your heating and electricity bill?: No Do you have trouble taking care of your child, family member or friend?: No Do you have trouble with day-to-day activities such as bathing, preparing meals, shopping, managing finances, etc.?: No Are you currently unemployed and looking for a job?: No Are you interested in more education?: No Please select the resources that you would like help with: None Currently or been in a relationship where the following occur: I choose not to answer THRIVE Score: 0 AUDIT C Alcohol Use Questionnaire (AUDIT-C) 1. How often do you have a drink containing alcohol?: Never 3. How often do you have six or more drinks on one occasion?: Never Total Score: 0 Score Reviewed/Action Taken: Yes KENDRA-7 AMB Questionnaire KENDRA-7 Date KENDRA - 7 assessed: 03/05/25 Source: Developed by Drs. Foster Queen, Shahla Vo, Lambert Sanchez and colleagues, with an educational german from [employer]. Review of Systems Const Denies chills, Denies fatigue, Denies fever(s) and Denies headache(s) ENT Denies dysphagia, Denies dizziness, Denies otalgia, Denies headache(s), Denies neck pain, Denies odynophagia and Denies sore throat Card Denies chest pain, Denies palpitations and Denies dyspnea Resp Denies cough, Denies dyspnea and Denies wheezing GI Denies abdominal pain, Reports constipation (recurrent), Denies dysphagia, Chon es heartburn, Reports diarrhea (occasionally; usually when his constipation gets worse), Denies nausea, Denies odynophagia and Denies vomiting Reports erectile dysfunction (states that his insurance will not cover Rx), Denies dysuria, Denies nocturia and Denies urinary frequency Musc Denies back pain, Reports arthralgias (both knees, on and off) and Denies neck pain Skin/Breast Denies rash Neuro Denies dizziness and Denies headache(s) Endo Denies fatigue and Denies palpitations Aller/Immun Denies wheezing Physical exam (Primary Care) Vital Signs: Last Vital Signs Pulse 83 06/06/25 13:50 BP 110/82 06/06/25 13:50 Pulse Ox 96 06/06/25 13:50 Oxygen Delivery Method Room Air 06/06/25 13:50 BMI result Body Mass Index 37.1 Tobacco/Smoking Status: Tobacco use Status Tobacco use date assessed 06/06/25 06/06/25 13:57 Patient Tobacco Use Status Former Tobacco user 06/06/25 13:57 Tobacco use type Cigarette 06/06/25 13:57 e-Cigarette/Vaping Use Never Used 06/06/25 13:57 Depression Screening Interpretation: Positive Depression Screening Follow-up: Existing condition and In treatment Thrive Assessment: Date of Thrive Assessment Date Thrive assessed 03/05/25 06/06/25 13:57 Currently or been in a relationship where the following occur: I choose not to answer Const General: no acute distress and alert HENMT Ears: TM's normal bilaterally and EAC's normal Throat: Yes posterior oropharynx normal and Yes tonsils normal (no TP congestion noted) Neck Neck: Yes supple and No lymphadenopathy Thyroid: Thyroid normal Resp Auscultation: clear to auscultation bilaterally, no rales and no wheezes Cardio Rate: regular rate Rhythm: regular rhythm Heart sounds: no murmurs GI Palpation (GI): Soft to palpation and nontender Auscultation: normal bowel sounds General: Yes no CVA tenderness Back/Spine/Pelvis Back: no CVA tenderness Cervical Spine: No Cervical spine tenderness Thoracic/Lumbar Spine: No lumbar spinal tenderness Skin Rashes: no rashes Extrem General: Yes no clubbing, cyanosis or edema Right lower extremity: knee Details: tenderness; no swelling Left lower extremity: knee Details: tenderness; no swelling Results Reviewed Results Reviewed: Laboratory Tests 04/28/25 05/08/25 05/16/25 12:02 10:52 13:45 WBC 7.1 Hgb 15.6 Hct 44.2 Plt Count 131 L Sodium 141 Potassium 4.3 Creatinine 1.46 H Estimated GFR 49 Random Glucose 243 H Hgb A1c (Clinic) 6.6 H Calcium 9.6 Laboratory Tests 04/28/25 12:02 AST 34 ALT 51 H Alkaline Phosphatase 150 H Coding Level of Care Code Est Pt Level 4 (64199) Diagnoses Type 2 diabetes mellitus with stage 3 chronic kidney disease, with long-term current use of insulin, unspecified whether stage 3a or 3b CKD E11.22; N18.30; Z79.4 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: with prison use Chronic kidney disease stage: stage 3 (moderate) Chronic kidney disease stage 3 subtype: unspecified whether 3a or 3b Stage 3 chronic kidney disease, unspecified whether stage 3a or 3b CKD N18.30 Chronic kidney disease stage 3 subtype: unspecified whether 3a or 3b Benign essential hypertension I10 Pure hypercholesterolemia E78.00 Elevated LFTs R79.89 Chronic idiopathic constipation K59.04 Constipation type: chronic idiopathic constipation Pain in both knees, unspecified chronicity M25.561; M25.562 Chronicity: unspecified Erectile dysfunction, unspecified erectile dysfunction type N52.9 Erectile dysfunction type: unspecified Schizoaffective disorder, unspecified type F25.9 Schizoaffective disorder type: unspecified Obesity (BMI 30-39.9) E66.9 Assessment & Plan Assessment & Plan (1) Type 2 diabetes mellitus with diabetic chronic kidney disease: Code(s): E11.22 - Type 2 diabetes mellitus with diabetic chronic kidney disease Category: Medical Qualifiers: 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: with termite treater helper use Chronic kidney disease stage: stage 3 (moderate) Chronic kidney disease stage 3 subtype: unspecified whether 3a or 3b Qualified Code(s): E11.22 - Type 2 diabetes mellitus with diabetic chronic kidney disease; N18.30 - Chronic kidney disease, stage 3 unspecified; Z79.4 - [facility] (current) use of insulin Plan: His in-officeH gbA1c was at 6.6% on his labs done a few weeks ago (was previously at 7.0% back on 02/06/2025) - goal is at least <7.0% Reinforced diabetic diet Continue Jardiance 25 mg QD, Metformin 500 mg 2 tablets BID, Tresiba 58 units daily and Humalog 12 units QD with the largest meal of the day Mounjaro was discontinued by endocrinology a few months ago due to his worsening constipation (patient already has chronic constipation over the years) Folow up with endocrinology as scheduled (2) Chronic kidney disease (CKD), stage III (moderate): Code(s): N18.30 - Chronic kidney disease, stage 3 unspecified Category: Medical Qualifiers: Chronic kidney disease stage 3 subtype: unspecified whether 3a or 3b Qualified Code(s): N18.30 - Chronic kidney disease, stage 3 unspecified Plan: Patient's renal function appears stable on his recent labs Will continue to monitor his GFR and renal function regularly (3) Benign essential hypertension: Code(s): I10 - Essential (primary) hypertension Category: Medical Plan: Reinforced low-sodium diet - goal is systolic BP of at least 120 to 130 mm or less Continue Furosemide 20 mg once a day (4) Pure hypercholesterolemia: Code(s): E78.00 - Pure hypercholesterolemia, unspecified Category: Medical Plan: Results of his labs done a few weeks ago reviewed and discussed with patient although these are nonfasting labs and do not include his fasting lipids Reinforced low cholesterol diet Continue Atorvastatin 10 mg QD for now Will recheck his labs and fasting lipids in 3 months for follow up - will just have patient use his current orders (updated) for his next lab draw (5) Elevated LFTs: Code(s): R79.89 - Other specified abnormal findings of blood chemistry Category: Medical Plan: Patient's serum ALT level is still elevated on his recent labs; AST remains normal This is likely related primarily to his weight but patient also drinks alcohol every now and then He is also on Atorvastatin and has been reminded that alcohol and statins generally do not mix well Will recheck his LFTs in 3 months for follow up (6) Constipation: Comment: increase liquids and take med Code(s): K59.00 - Constipation, unspecified Category: Medical Qualifiers: Constipation type: chronic idiopathic constipation Qualified Code(s): K59.04 - Chronic idiopathic constipation Plan: CHRONIC - he is again encouraged to increase his oral fluids and dietary fiber intake Continue Linzess 290 mcg QD, Fiber Laxative 1000 mg TID, Miralax 17 gm QD, MOM 20 ml Q HS and Colace 100 mg BID He continues to follow up with GI for management of this chronic issue (7) Knee pain, bilateral: Code(s): M25.561 - Pain in right knee; M25.562 - Pain in left knee Category: Medical Qualifiers: Chronicity: unspecified Qualified Code(s): M25.561 - Pain in right kn ee; M25.562 - Pain in left knee Plan: Most likely due to either osteoarthritis or tendinitis X-rays of his knees done back in 2019 revealed (+) some joint space narrowing Continue Acetaminophen 1000 mg PRN Will consider getting repeat knee x-rays done if his knee pains get worse (8) Erectile dysfunction: Code(s): N52.9 - Male erectile dysfunction, unspecified Category: Medical Qualifiers: Erectile dysfunction type: unspecified Qualified Code(s): N52.9 - Male erectile dysfunction, unspecified Plan: Continue Sildenafil 50 mg PRN Follow up with urology as scheduled (9) Schizoaffective disorder: Code(s): F25.9 - Schizoaffective disorder, unspecified Category: Medical Qualifiers: Schizoaffective disorder type: unspecified Qualified Code(s): F25.9 - Schizoaffective disorder, unspecified Plan: Continue Benztropine 0.5 mg BID and Clozapine 100 mg TID, Follow-up with Psychiatry as scheduled - he is now going to [facility] (10) Obesity (BMI 30-39.9): Code(s): E66.9 - Obesity, unspecified Category: Medical Plan: Reinforced diet/exercise as tolerated/lose weight Plan Follow up in 3 months
--- OUTSIDE RECORDS SUMMARY | 2025-06-06 15:47 | XMS_ITS | Patient Health Record ---
[facility] ayde [place] Address [address] [place] [address] Care Team Providers Care Folder Machine Operator Name Role Phone Jose RENAE, Luis Manuel Primary Care Provider Tu Ch Unavailable [phone] Allergies No Known Allergies Results Component Value [...] Problem Acquired hammer toe of right foot (476997597546781 5) Other hammer toe(s) (acquired), right foot (M20.41) Active confirmed Problem Plantar fascial fibromatosis (12560368) Plantar fascial fibromatosis (M72.2) Active confirmed Problem Acquired hammer toe of left foot (432714872340423 3) Other hammer toe(s) (acquired), left foot (M20.42) Active confirmed Problem Type II diabetes mellitus without complication (605539942) Type 2 diabetes mellitus without complication (E11.9) Active confirmed Vital Signs Blood pressure diastolic 80 mm Hg 08/30/2024 Height 6ft in 08/30/2024 Blood pressure systolic 130 mm Hg 08/30/2024 Weight 270 lbs 08/30/2024 BMI 36.61 kg/m2 08/30/2024 Procedures Procedure Date Ordered Date Performed Result Body Sit e 06914-PXTUZFB NAIL, 6 OR MORE 06/21/2024 N/A 71997-AFME SKIN LESIONS, 2 TO 4 06/21/2024 N/A 83293-TAPEJOE NAIL, 6 OR MORE 08/30/2024 N/A 60071-IBYR SKIN LESIONS, 2 TO 4 08/30/2024 N/A Encounters Encounter Location Date [facility] [address] 06/21/2024 Tu Michelunier Tinea unguium B35.1 ; Pain in right toe(s) M79.674 ; Pain in left toe(s) M79.675 ; Achilles tendinitis of right lower extremity M76.61 and Type 2 diabetes mellitus without complication E11.9 [facility] [address] 08/30/2024 Tu Gabby Pain in right toe(s) M79.674 ; Tinea unguium B35.1 ; Pain in left toe(s) M79.675 ; Type 2 diabetes mellitus without complication E11.9 ; Other hammer toe(s) (acquired), right foot M20.41 and Other hammer toe(s) (acquired), left foot M20.42 [facility] [address] [address] 09/03/2024 Tu Gabby [facility] [address] [address] 10/01/2024 Tuwilliam Pierre [facility] [address] 12/06/2024 Tuwilliam Pierre Plantar fascial fibromatosis M72.2 [...] X ray : Foot, right 3V 03/08/2024 71909-APIKPRF NAIL, 6 OR MORE 03/08/2024 29342-PFWMJNX NAIL, 6 OR MORE 06/21/2024 85386-TNDTHIA NAIL, 6 OR MORE 08/30/2024 71531-Dvrwcmpr Plate 03/08/2024 27701-ALRX SKIN LESIONS, 2 TO 4 03/08/20 72344-OYNN SKIN LESIONS, 2 TO 4 08/30/19 24833-ISYD SKIN LESIONS, 2 TO 4 06/21/20 Insurance Providers Payer Name Payer Address Payer Phone Subscriber Number Group Number Insured Name Patient Relationship to Insured Coverage Start Date Coverage End Date [facility] [employer] Claims [address] [place] [address] [id number] Mike oCrnejo Self - patient is the insured Medical (General) History Medical History History ICD Code Diabetic Surgical History Surgery Date(Month/Year)
== END ==
LOC: HO.HMCH 13:44
PROVIDERS: PCP Internal Medicine; Visit Provider Internal Medicine
DX: I12.9 Hypertensive chronic kidney disease with stage 1 through stage 4 chronic kidney disease, or unspecified chronic kidney disease (principal); E11.22 Type 2 diabetes mellitus with diabetic chronic kidney disease; N18.30 Chronic kidney disease, stage 3 unspecified; Z79.4 Long term (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; F25.9 Schizoaffective disorder, unspecified; E78.00 Pure hypercholesterolemia, unspecified; R79.89 Other specified abnormal findings of blood chemistry; K59.04 Chronic idiopathic constipation; M25.561 Pain in right knee; M25.562 Pain in left knee; N52.9 Male erectile dysfunction, unspecified; E66.9 Obesity, unspecified

== ENCOUNTER → 2025-06-06 13:43 | Outpatient (BNVA) | payer OTHER, SELFPAY | PROVIDERS: PCP Internal Medicine; Visit Provider Internal Medicine | DX: E11.22 Type 2 diabetes mellitus with diabetic chronic kidney disease (principal); I12.9 Hypertensive chronic kidney disease with stage 1 through stage 4 chronic kidney disease, or unspecified chronic kidney disease; N18.30 Chronic kidney disease, stage 3 unspecified; E78.00 Pure hypercholesterolemia, unspecified; R79.89 Other specified abnormal findings of blood chemistry; K59.04 Chronic idiopathic constipation; M25.561 Pain in right knee; M25.562 Pain in left knee; N52.9 Male erectile dysfunction, unspecified; F25.9 Schizoaffective disorder, unspecified; E66.9 Obesity, unspecified; Z79.4 Long term (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; Z68.37 Body mass index [BMI] 37.0-37.9, adult | CPT/HCPCS: 99212 ==

== ENCOUNTER 2025-06-12 12:33 | Outpatient (AMB) | payer OTHER, SELFPAY ==
--- OUTSIDE RECORDS SUMMARY | 2024-11-15 06:00 | XMS_ITS ---
Author Organization [facility] Address [address] [place] [address] Care Team Providers Care Infectious Waste Technician Name Role Phone Luis Manuel Garcia MD Primary Care Provider Unava Tu Frederick Unavailable [phone] Encounters Encounter Location Date Provider Diagnosis [facility] [address] [place] [address] 11/15/2024 Tu Pierre Plan Of Treatment No Information Progress Notes * Mike BAIRDDOB:[birth year] (64 yo M)Acc No.[id number]:11/15/2024 Progress Note Patient: Mike JACOBO Provider: Magaly Pierre DPM :1960 A ge:64 Y S ex:Male Date:11/15/2024 Address:[address] [place] Pcp:Luis Manuel Garcia MD Subjective: * Chief [...] 0 11/15/2024 Generated for Ruthy wood/Garrison/eTalmasmitting on: 03:25 PM EDT
[2025-06-12 13:13] VITALS: BP 112/74; PULSE 80; TEMP 36.6; O2SAT 97; BMI 37.3
--- NOTE | 2025-06-12 13:13 | AM.OFFWIN_ITS ---
Intake Vital Signs 06/12/25 13:13 Height 6 ft 1 in Weight 283 lb BMI 37.3 BP 112/74 Blood Pressure Location Lt brachial Position Sitting Pulse 80 Pulse Source Pulse Oximeter Temp 97.9 F Temp Source Oral Pulse Oximetry (%) 97 Oxygen Delivery Method Room Air Intake Visit Reasons: EP Joint pain whole body Intake Note: Patient presents with c/o joint pain all over body - unsure of time frame Patient Tobacco Use Status: Former Tobacco user Allergies No Known Allergies (No Known Allergies*) Allergy (Verified 06/12/25 13:19) HPI HPI Comments History of Present Illness Details 64-year-old male presents to the walk-in clinic with complaints of generalized body aches and joint pains that started yesterday. He reports pain involving multiple joints without any associated swelling or redness. The patient states that he usually takes Acetaminophen for pain relief but has not taken any recently because the pharmacy required a $5 copayment, which he declined to pay. He has Ibuprofen available at home but prefers Acetaminophen for symptom control. He denies fever, chills, nausea, or vomiting. No recent illness, trauma, or new medications reported. [facility] Medical History (Updated 06/12/25 @ 15:02 by Lucille Issa NP) Generalized muscle ache Acute respiratory disease Impacted cerumen, right ear Acute diarrhea Pain in both feet Calcaneal spur of right foot Achilles tendinitis Callus of foot Right hand pain Abdominal bloating Vertigo Calcaneal spur Colon cancer screening COVID-19 Pre-op examination Elevated LFTs Encounter for Medicare annual wellness exam Bowel obstruction Melena Knee pain, bilateral Gastroenteritis Healed wound Chronic idiopathic constipation Chronic idiopathic constipation Hospital discharge follow-up Knee osteoarthritis Obesity (BMI 30-39.9) Schizoaffective disorder Pure hypercholesterolemia Benign essential hypertension Chronic kidney disease (CKD), stage III (moderate) Type 2 diabetes mellitus with diabetic chronic kidney disease Morbid obesity Dyslipidemia 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 diabetes mellitus group home (current) use of insulin Diabetic polyneuropathy associated with type 2 diabetes mellitus Schizo affective schizophrenia Diabetes type 2, uncontrolled Surgical History History of repair of congenital cleft palate Hx of circumcision Family History Father HTN (hypertension) Mother Diabetes Other Mental health problem Social History Household Members: None Housing: Apartment Are you a primary career specialist to a significant other at home: No Do you presently have visiting nurse or other home services: Yes Alcohol intake: former Patient Tobacco Use Status: Former Tobacco user Tobacco use type: Cigarette Cigarettes Per Day: 15 Years Smoked: 8 quit 30 years ago e-Cigarette/Vaping Use: Never Used Second Hand Smoke Exposure: No service: No Current occupational status: employed Current occupation: [employer] Cognitive needs: No Hearing needs: No Vision needs: Yes (glasses) Review of Systems Const All systems reviewed & are unremarkable except as noted in HPI and below Physical Exam Vital Signs: Last Vital Signs Temp 97.9 F 06/12/25 13:13 Pulse 80 06/12/25 13:13 BP 112/74 06/12/25 13:13 Pulse Ox 97 06/12/25 13:13 Oxygen Delivery Method Room Air 06/12/25 13:13 BMI result Body Mass Index 37.3 Const General: no acute distress Nutritional Appearance: obese Orientation/consciousness: patient oriented x3 Resp Effort & Inspection: normal respiratory effort Auscultation: clear to auscultation bilaterally Cardio Heart sounds: S1 normal heart sound present and S2 normal heart sound present Neuro General: patient oriented x3, gait normal and moves all extremities Psych Speech and movement: Normal speech and movement present Assessment & Plan Assessment & Plan (1) Generalized muscle ache: Code(s): M79.10 - Myalgia, unspecified site Plan: Patient presents with generalized muscle pain (myalgia). Symptoms are diffuse and not localized to any specific area. No associated swelling, redness, weakness, or neurological deficits reported. Possible etiologies include viral illness, dehydration, overexertion. No evidence of acute inflammatory or infectious process at this time. Take Acetaminophen or Ibuprofen for pain relief. Coding Level of Care Code Est Pt Level 4 (33761) Diagnoses Generalized muscle ache M79.10 Time Spent (min) 20
--- OUTSIDE RECORDS SUMMARY | 2025-06-12 15:25 | XMS_ITS | Patient Health Record ---
[facility] [place] Address [address] [place] [address] Care Team Providers Care Electronic Specialist Name Role Phone Jose RENAE, Luis Manuel Primary Care Provider Tu Ch Unavailable [phone] Allergies No Known Allergies Results Component Value [...] Problem Acquired hammer toe of right foot (378802867001247 5) Other hammer toe(s) (acquired), right foot (M20.41) Active confirmed Problem Plantar fascial fibromatosis (95262555) Plantar fascial fibromatosis (M72.2) Active confirmed Problem Acquired hammer toe of left foot (286419324969109 3) Other hammer toe(s) (acquired), left foot (M20.42) Active confirmed Problem Type II diabetes mellitus without complication (156280448) Type 2 diabetes mellitus without complication (E11.9) Active confirmed Vital Signs Blood pressure diastolic 80 mm Hg 08/30/2024 Height 6ft in 08/30/2024 Blood pressure systolic 130 mm Hg 08/30/2024 Weight 270 lbs 08/30/2024 BMI 36.61 kg/m2 08/30/2024 Procedures Procedure Date Ordered Date Performed Result Body Sit e 85904-GBKESGT NAIL, 6 OR MORE 06/21/2024 N/A 17864-ZKQJ SKIN LESIONS, 2 TO 4 06/21/2024 N/A 15401-ONAUBMZ NAIL, 6 OR MORE 08/30/2024 N/A 27884-XGHO SKIN LESIONS, 2 TO 4 08/30/2024 N/A Encounters Encounter Location Date Provider [facility] [address] 06/21/2024 Tu Michelunier Tinea unguium B35.1 ; Pain in right toe(s) M79.674 ; Pain in left toe(s) M79.675 ; Achilles tendinitis of right lower extremity M76.61 and Type 2 diabetes mellitus without complication E11.[address] [facility] [address] 08/30/2024 Tu Gabby Pain in right toe(s) M79.674 ; Tinea unguium B35.1 ; Pain in left toe(s) M79.675 ; Type 2 diabetes mellitus without complication E11.9 ; Other hammer toe(s) (acquired), right foot M20.41 and Other hammer toe(s) (acquired), left foot M20.42 [facility] [address] [address] 09/03/2024 Tu Gabby [facility] [address] [address] 10/01/2024 Tuwilliam Pierre [facility] [address] 12/06/2024 Tuwilliam Pierre Plantar fascial fibromatosis M72.2 [...] X ray : Foot, right 3V 03/08/2024 37334-OJGAEOK NAIL, 6 OR MORE 03/08/2024 12687-GTXDLYD NAIL, 6 OR MORE 06/21/2024 17612-YTGBLFA NAIL, 6 OR MORE 08/30/2024 30970-Jgdcqjwd Plate 03/08/2024 44299-KREL SKIN LESIONS, 2 TO 4 03/08/20 11170-ORVR SKIN LESIONS, 2 TO 4 08/30/19 85948-YRGJ SKIN LESIONS, 2 TO 4 06/21/20 Insurance Providers Payer Name Payer Address Payer Phone Subscriber Number Group Number Insured Name Patient Relationship to Insured Coverage Start Date Coverage End Date [facility] [employer] Claims [address] [place] [address] [id number] Mike Cornejo Self - patient is the insured Medical (General) History Medical History History ICD Code Diabetic Surgical History Surgery Date(Month/Year)
== END 2025-06-12 14:00 | disposition home or self-care (01) ==
PROVIDERS: PCP Internal Medicine; Visit Provider Nurse Practitioner Family
DX: M79.10 Myalgia, unspecified site (principal)

== ENCOUNTER → 2025-06-12 12:33 | Outpatient (BNVA) | payer OTHER, SELFPAY | PROVIDERS: PCP Internal Medicine; Visit Provider Nurse Practitioner Family | DX: E11.22 Type 2 diabetes mellitus with diabetic chronic kidney disease (principal); N18.9 Chronic kidney disease, unspecified; M79.10 Myalgia, unspecified site | CPT/HCPCS: 99212 ==

== ENCOUNTER 2025-06-19 11:45 | Outpatient (AMB) | payer OTHER, SELFPAY ==
--- OUTSIDE RECORDS SUMMARY | 2024-11-15 05:00 | XMS_ITS ---
Author Organization [facility] Address [address] [place] [address] Care Team Providers Care Director Community Organization Name Role Phone Luis Manuel Garcia MD Primary Care Provider Unava Tu Frederick Unavailable [phone] Encounters Encounter Location Date Provider Diagnosis [facility] [address] [place] [address] 11/15/2024 Tu Pierre Plan Of Treatment No Information Progress Notes * Mike BAIRDDOB:[birth year] (64 yo M)Acc No.[id number]:11/15/2024 Progress Note Patient: Mike JACOBO Provider: Magaly Pierre DPM :1960 A ge:64 Y S ex:Male Date:11/15/2024 Address:[address] [place] [place] Pcp:Luis Manuel Garcia MD Subjective: * Chief [...] 0 11/15/2024 Generated for Ruthy wood/Garrison/Harvey on: 08/19/2024 02:42 PM EST
--- NOTE | 2025-06-19 11:56 | MHC.AMDMED ---
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 Relief Required: No Accompanied by: Self / Same As Patient Allergies No Known Allergies (No Known Allergies*) Allergy (Verified 06/12/25 13:19) HPI Comprehensive Diabetes Asmnt Most Recent Diabetes Results: Creatinine, (0.5-1.4) 1.46 mg/dL H 04/28/25 BUN, (9-16) 25 mg/dL H 04/28/25 Sodium, (135-145) 141 mmol/L 04/28/25 Potassium, (3.3-5.1) 4.3 mmol/L 04/28/25 Chloride, (96-108) 107 mmol/L 04/28/25 Carbon Dioxide, (22-29) 24 mmol/L 04/28/25 Calcium, (8.4-10.2) 9.6 mg/dL 04/28/25 AST, (5-37) 34 U/L 04/28/25 ALT, (0-40) 51 U/L H 04/28/25 Total Protein, (6.5-8.0) 7.7 g/dL 04/28/25 Albumin, (3.5-5.0) 4.6 g/dL 04/28/25 [facility] Medical History (Updated 06/12/25 @ 15:02 by Lucille Issa NP) Generalized muscle ache Acute respiratory disease Impacted cerumen, right ear Acute diarrhea Pain in both feet Calcaneal spur of right foot Achilles tendinitis Callus of foot Right hand pain Abdominal bloating Vertigo Calcaneal spur Colon cancer screening COVID-19 Pre-op examination Elevated LFTs Encounter for Medicare annual wellness exam Bowel obstruction Melena Knee pain, bilateral Gastroenteritis Healed wound Chronic idiopathic constipation Chronic idiopathic constipation Hospital discharge follow-up Knee osteoarthritis Obesity (BMI 30-39.9) Schizoaffective disorder Pure hypercholesterolemia Benign essential hypertension Chronic kidney disease (CKD), stage III (moderate) Type 2 diabetes mellitus with diabetic chronic kidney disease Morbid obesity Dyslipidemia 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 diabetes mellitus nursing home (current) use of insulin Diabetic polyneuropathy associated with type 2 diabetes mellitus Schizo affective schizophrenia Diabetes type 2, uncontrolled Surgical History History of repair of congenital cleft palate Hx of circumcision Family History Father HTN (hypertension) Mother Diabetes Other Mental health problem Social History Household Members: None Housing: Apartment Are you a primary director of health care marketing to a significant other at home: No Do you presently have visiting nurse or other home services: Yes Alcohol intake: former Patient Tobacco Use Status: Former Tobacco user Tobacco use type: Cigarette Cigarettes Per Day: 15 Years Smoked: 8 quit 30 years ago e-Cigarette/Vaping Use: Never Used Second Hand Smoke Exposure: No service: No Current occupational status: employed Current occupation: [employer] Cognitive needs: No Hearing needs: No Vision needs: Yes (glasses) Assessment & Plan Assessment & Plan (1) Diabetic polyneuropathy associated with type 2 diabetes mellitus: Code(s): E11.42 - Type 2 diabetes mellitus with diabetic polyneuropathy Plan: Personal Continuous Glucose Monitor: Patients CGM information reviewed, Pt uses [employer] with reader Pt's last A1c 6.6% Apr 2025 Pt reports he needs fasting labs but when he fasts he experiences hypoglycemia Instructed Pt as follows: The day before you are going for fasting labs, take tresiba 45 units Do not eat after 11pm. Go to lab at 7 am Resume Tresiba 58 units after labs Pt given copy of written instructions Pt agreed to plan Patient able to insert sensor independently at home without issue.? Portions of this note were created using voice recognition software, please excuse any words or phrases that may have been misinterpreted. Patient Instructions: The day before you are going for fasting labs, take tresiba 45 units Do not eat after 11pm. Go to lab at 7 am Resume Tresiba 58 units after labs Coding Level of Care Code Est Pt Level 1 (15433) Diagnoses Diabetic polyneuropathy associated with type 2 diabetes mellitus E11.42
== END 2025-06-19 12:11 | disposition home or self-care (01) ==
LOC: HO.ENCR 11:46
PROVIDERS: PCP Internal Medicine; Visit Provider Registered Nurse Diabetes Educator
DX: E11.42 Type 2 diabetes mellitus with diabetic polyneuropathy (principal)

== ENCOUNTER → 2025-06-19 11:45 | Outpatient (BNVA) | payer OTHER, SELFPAY | PROVIDERS: PCP Internal Medicine; Visit Provider Registered Nurse Diabetes Educator | DX: E11.42 Type 2 diabetes mellitus with diabetic polyneuropathy (principal) | CPT/HCPCS: 99211 ==

== ENCOUNTER 2025-06-29 16:39 | Emergency (ER) | payer OTHER, SELFPAY ==
--- OUTSIDE RECORDS SUMMARY | 2024-11-15 05:00 | XMS_ITS ---
Author Organization [facility] Address [address] [place] [address] Care Team Providers Care Soakers Supervisor Name Role Phone Luis Manuel Garcia MD Primary Care Provider Unava ilTu [place] Unavailable [phone] Encounters Encounter Location Date Provider Diagnosis [facility] [address] [place] [address] 11/15/2024 Tu Pierre Plan Of Treatment No Information Progress Notes * Mike BAIRDDOB:[birth year] (64 yo M)Acc No.[id number]:11/15/2024 Progress Note Patient: Mike JACOBO Provider: Magaly Pierre DPM :1960 A ge:64 Y S ex:Male Date:11/15/2024 Address:[address] [place] Pcp:Luis Manuel Garcia MD Subjective: * Chief [...] 0 11/15/2024 Generated for Ruthy wood/Garrison/Harvey on: 08/29/2024 04:56 PM EST
--- NOTE | ~2025-06-29 | XR_ITS ---
CLINICAL HISTORY: lower abd pain 1 view abdomen Comparison: 02/16/2025 Findings: Normal bowel gas pattern. Pwvdncoh-tp-kfktf stool quantity. No abnormal calcifications. No pneumoperitoneum or pneumatosis. Bones unremarkable Impression: 1. Ysipbfmc-gk-hdjps colonic stool burden. Otherwise, unremarkable bowel gas pattern This document has been electronically signed by: Ajay Tompkins MD on 06/29/2025 17:33:27
--- NOTE | ~2025-06-29 | CT_ITS ---
CLINICAL HISTORY: LLQ Tenderness; ? Divertic vs Stercoral Colitis CT abdomen and pelvis with contrast Comparison: CT - CT ABDOMEN PELVIS WITH IV CONTRAST - 02/25/2023 01:12 PM EDT Findings: No consolidation or effusion. The spleen measures 19.1 x 16.2 x 9.2 cm The gallbladder and solid organs are otherwise within normal limits. No renal stones. No bowel obstruction, pneumoperitoneum, or pneumatosis. Pelvic contents unremarkable. Normal appendix. No acute fracture. IMPRESSION: Splenomegaly. This document has been electronically signed by: Bulmaro Plata MD on 06/29/2025 21:46:37
--- NOTE | 2025-06-29 16:41 | ED_ITS ---
HPI - General Adult General Chief complaint: Abdominal Pain Stated complaint: stomach pain to groin Time Seen by Provider: 06/29/25 20:09 Source: patient Mode of arrival: ambulatory Limitations: no limitations History of Present Illness ED Provider: Trev OWEN HPI narrative: Patient is a 64-year-old male with a history of diabetes, CKD, schizoaffective disorder, morbid obesity, diabetic neuropathy, and chronic idiopathic constipation, presenting to the ED for evaluation of left-sided lower abdominal pain which radiates into his groin. Patient has an extensive history of chronic constipation for which he takes milk of magnesia as needed. Patient reports he has been compliant with milk of magnesia, last took this approximately 3 days ago, reports he had a bowel movement yesterday and a smaller bowel movement today. Patient reports however he is experiencing left lower quadrant abdominal pain with intermittent radiation into the groin without associated urethral discharge, testicular swelling, or testicular pain. The patient denies associated fever/chills, nausea, vomiting, diarrhea, hematochezia, melena, or surgical abdominal history, denies any recent sick contacts or trauma. Related Data Home Medications ?Medication ?Instructions ?Recorded ?Confirmed benztropine 0.5 mg tablet 0.5 mg PO BID 04/29/2206/07 clozapine 100 mg tablet 100 mg PO TID 05/12/2206/07 Previous Rx's ?Medication ?Instructions ?Recorded blood-glucose meter (FreeStyle #1 ea 03/27/23 Lite Meter kit) bisacodyl 5 mg tablet,delayed 10 mg (2 x 5 mg) PO BID #90 tabs 01/02/24 release Held on 01/11/24. 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 #1 ea 10/09/24 (FreeStyle Jody 3 Mora) salicylic acid 17 % topical liquid 1 appl topical .doreen ry 2 weeks #9 mL 12/10/24 (Wart Remover) blood-glucose sensor (FreeStyle #2 ea 01/16/25 Jody 3 Plus Sensor device) docusate sodium 100 mg capsule 100 mg PO BID #60 caps 01/23/25 linaclotide 290 mcg capsule 290 mcg PO QAM #30 caps (Linzess) magnesium hydroxide 400 mg/5 mL 20 ml PO BEDTIME PRN c onstipation 01/23/25 oral suspension (Milk of Magnesia) #3,780 mL simethicone 180 mg capsule 180 mg PO TID #90 caps 01/12 10/08 acetaminophen 325 mg capsule 650 mg (2 x 325 mg) PO Q4 H PRN 01/26/25 pain #30 caps cyclobenzaprine 10 mg tablet 10 mg PO TID PRN muscle s pasm #12 01/26/25 tabs pen needle, diabetic 29 gauge x #100 ea 01/27/25 1/ methylcellulose (laxative) 500 mg 1,000 mg (2 x 500 mg ) PO TID #180 01/30/25 tablet (Fiber Therapy tabs (methylcellulose)) metformin 500 mg tablet 1,000 mg (2 x 500 mg) PO BID 90 01/31/25 days #360 tabs polyethylene glycol 3350 17 17 g PO DAILY #510 grams 0 02/05/25 gram/dose oral powder (Miralax) Humalog KwikPen Insulin 100 12 unit (0.12 mL) subcut D AILY 30 02/06/25 unit/mL subcutaneous (insulin days #6 mL lispro) Tresiba FlexTouch U-200 200 58 unit (0.29 mL) subcut D AILY 90 02/20/25 unit/mL (3 mL) subcutaneous pen days #27 mL (insulin degludec) sildenafil 50 mg tablet 50 mg PO DAILY PRN sexual ac tivity 02/21/25 #30 tabs cetirizine 10 mg tablet (Zyrtec) 10 mg PO DAILY #30 ta bs 02/24/25 lidocaine 5 % topical patch 1 patch topical DAILY #15 ea 03/02/25 (Lidoderm) ketoconazole 2 % topical cream 1 appl topical DAILY #3 0 grams 03/05/25 cholecalciferol (vitamin D3) 25 25 mcg PO DAILY #90 ca ps 03/11/25 mcg (1,000 unit) capsule metoclopramide HCl 10 mg tablet 10 mg PO TID #90 tabs 03/12/25 ibuprofen 800 mg tablet 800 mg PO Q8H PRN for pain 3 0 days 03/17/25 #90 tabs docusate sodium 100 mg capsule 100 mg PO BID PRN const ipation #30 03/31/25 (Colace) caps famotidine 20 mg tablet (Pepcid) 20 mg PO DAILY PRN ab dominal 03/31/25 discomfort #30 tabs magnesium citrate 150 ml PO DAILY PRN constipa tion 2 03/31/25 days #296 mL sennosides 8.6 mg capsule (senna) 8.6 mg PO BEDTIME AL N constipation 03/31/25 #30 caps sennosides 8.6 mg capsule (senna) 8.6 mg PO BEDTIME #1 4 caps 04/28/25 blood sugar diagnostic (FreeStyle #100 ea 04/29/25 Lite Strips) gabapentin 300 mg capsule 300 mg PO BEDTIME 90 days #9 0 caps 05/01/25 furosemide 20 mg tablet 20 mg PO DAILY #90 tabs 04/15 11/05 empagliflozin 25 mg tablet 25 mg PO QAM #30 tabs 05/21 (Jardiance) acetaminophen 500 mg tablet 1,000 mg (2 x 500 mg) PO Q 6-8H PRN 05/22/25 pain #30 tabs tadalafil 5 mg tablet 5 mg PO DAILY 90 days #90 ta bs 05/22/25 tamsulosin 0.4 mg capsule (Flomax) 0.4 mg PO BEDTIME 9 0 days #90 tabs 05/22/25 atorvastatin 10 mg tablet 10 mg PO DAILY #90 tabs 05/15 12/06 docusate sodium 100 mg capsule 100 mg PO BID #20 caps 06/29/25 (Colace) Allergies Allergy/AdvReac Type Severity Reaction Status Date / Time No Known Allergies (No Known Allergy Verified 06/29/25 16:44 Allergies*) Review of Systems 2 Review of Systems: Yes all other systems are reviewed and are negative PMF Past Medical History Medical History (Updated 06/29/25 @ 22:17 by Trev Stewart PA-C) Generalized muscle ache Acute respiratory disease Impacted cerumen, right ear Acute diarrhea Pain in both feet Calcaneal spur of right foot Achilles tendinitis Callus of foot Right hand pain Abdominal bloating Vertigo Calcaneal spur Colon cancer screening COVID-19 Pre-op examination Elevated LFTs Encounter for Medicare annual wellness exam Bowel obstruction Melena Knee pain, bilateral Gastroenteritis Healed wound Chronic idiopathic constipation Chronic idiopathic constipation Hospital discharge follow-up Knee osteoarthritis Obesity (BMI 30-39.9) Schizoaffective disorder Pure hypercholesterolemia Benign essential hypertension Chronic kidney disease (CKD), stage III (moderate) Type 2 diabetes mellitus with diabetic chronic kidney disease Morbid obesity Dyslipidemia 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 Diabetic polyneuropathy associated with type 2 diabetes mellitus Schizo affective schizophrenia Diabetes type 2, uncontrolled Surgical History History of repair of congenital cleft palate Hx of circumcision Family History Family History Father HTN (hypertension) Mother Diabetes Other Mental health problem Social History Social History Household Members: None Housing: Apartment Are you a primary critical care nurse practitioner to a significant other at home: No Do you presently have visiting nurse or other home services: Yes Alcohol intake: former Patient Tobacco Use Status: Former Tobacco user Tobacco use type: Cigarette Cigarettes Per Day: 15 Years Smoked: 8 quit 30 years ago Smoked in Last 30 Days: No e-Cigarette/Vaping Use: Never Used Second Hand Smoke Exposure: No Use of substances other than those prescribed or required for medical reasons: No Advance Directives: Yes Advance Directives Information Provided: No Advance Directives on File: No Do you have a plan to hurt others: No Plan service: No Current occupational status: employed Current occupation: [employer] Cognitive needs: No Hearing needs: No Vision needs: Yes (glasses) Physical Exam ED Vital Signs: Vital Signs - 24 hr 06/29/25 16:42 06/29/25 18:59 06/29/25 22:10 Temperature 98.3 F 97.7 F 97.6 F Pulse Rate 93 83 73 Respiratory Rate 18 18 18 Blood Pressure 131/93 H 114/78 105/67 Pulse Oximetry 95 97 97 Oxygen Delivery Method Room Air Room Air Room Air BMI result Body Mass Index 37.4 CONSTITUTIONAL: The patient appears non-toxic, well nourished and in no acute distress. Vital signs as documented. HEAD: Atraumatic, normocephalic. EYES: EOMs grossly intact, pupils equal, conjunctiva clear, no exudate. ENT: Nares patent, no discharge. Airway patent, no audible stridor, visible mucosa is pink and moist without noted lesions. NECK: Trachea is midline, no obvious masses or gross abnormalities. CHEST: Symmetric movement, normal appearance. LUNGS: LS present and CTAB, no w/r/r. Non-labored work of breathing. CARDIAC: Regular Rhythm, S1/S2 appreciated, no murmurs, rubs or gallops. ABDOMEN: Abdomen soft x4 quadrants, positive tenderness to palpation left lower quadrant, negative rebound, no palpable masses or organomegaly. : There is no urethral discharge, penile lesions, scrotal swelling, scrotal erythema, or testicular pain, no obvious hernia. EXTREMITIES: Normal tone, moves all extremities spontaneously without reported pain. No obvious acute injury or deformity noted. NEURO: Alert and oriented x3, CN II-XII appear grossly intact. Cerebellar Functioning grossly intact. No obvious sensory or motor deficits. Speech clear and appropriate. PSYCH: normal affect, appropriate eye contact, fluid speech, with appropriate response to questioning. No reported suicidality or homicidality. SKIN: Warm, dry, color appropriate, normal turgor. No rashes noted. Course Course Course Narrative: This is a Rapid Medical Examination (RME) performed by Amelia Pitt PA-C in triage. Full HPI, ROS, assessment and treatment plan per primary provider in the Main ED. Hx: 64 yo M hx of DM2, HLD, schizoaffective, arthritis, CKD, obesity here w/ intermittent lower abd pain rad to groin. Last BM yesterday - hard stool. denies N/V. Plan: labs, UA, KUB Medications Administered Discontinued Medications Generic Name Dose Route Start Last Admin Trade Name Freq PRN Reason Stop Dose Admin Dextrose 250 ml 06/29/25 20:00 06/29/25 20:05 Dextrose 10 % 250 Ml Iv.Soln IV 06/29/25 20:01 250 ml ONCE ONE Administration Iohexol 100 ml 06/29/25 20:41 06/29/25 20:41 Iohexol 350 Mg/Ml 100 Ml Infus..Btl IV 06/29/25 20:42 100 ml ONCE ONE Administration Medical Decision Making Medical Decision Making MDM Narrative: 8:25 PM 06/29/2025 (Amelia OWEN): Patient is a 64-year-old male with a history of diabetes, CKD, schizoaffective disorder, morbid obesity, diabetic neuropathy, and chronic idiopathic constipation, presenting to the ED for evaluation of left-sided lower abdominal pain which radiates into his groin. Patient has an extensive history of chronic constipation for which he takes milk of magnesia as needed. Patient reports he has been compliant with milk of magnesia, last took this approximately 3 days ago, reports he had a bowel movement yesterday and a smaller bowel movement today. Patient reports however he is experiencing left lower quadrant abdominal pain with intermittent radiation into the groin without associated urethral discharge, testicular swelling, or testicular pain. The patient denies associated fever/chills, nausea, vomiting, diarrhea, hematochezia, melena, or surgical abdominal history, denies any recent sick contacts or trauma. On exam the patient reports tenderness of the left lower quadrant, negative rebound. The patient is afebrile upon arrival to the ED, laboratory evaluation shows no leukocytosis, anemia, electrolyte abnormality, or ROEL significantly changed from patient's baseline CKD. Patient's ALT and alkaline phosphatase are mildly elevated, but unchanged from baseline. T bili is normal, lipase is normal. The patient's KUB shows nonobstructive bowel pattern but with moderate to large stool burden. The patient's pain may be related to exacerbation of chronic constipation, however given report of recent bowel movements, and point tenderness on exam, we will obtain CT abdomen and pelvis to rule out stercoral colitis, diverticulitis, versus other acute intra- abdominal pathology. If CT shows no evidence of acute intra-abdominal pathology we will treat with stool softener and stimulant laxatives, and reassess. 10:13 PM 06/29/2025 (Amelia OWEN): Patient's CT abdomen and pelvis demonstrates splenomegaly, no other acute findings. The patient's CT from 02/25/2023 demonstrates similar splenomegaly, previously 15.9 cm, now 16.2, appears chronic. Patient will be treated with magnesium citrate for increased stool burden and discharged to follow up with PCP.. Admission/Observation Consideration of admission/observation: Escalation of care including admission/observation considered Lab Data MDM Lab Attestation statement: I reviewed the patient's lab results. 06/29/25 16:51 06/29/25 16:51 Labs: Lab Results 06/29/25 06/29/25 06/29/25 Range/Units 16:51 19:53 21:16 WBC 8.1 (4.8-10.8) X10*3/uL RBC 5.26 (4.60-5.80) X10*6/uL Hgb 15.3 (14.0-18.0) g/dl Hct 44.4 (42.0-52.0) % MCV 84.4 (80.0-98.0) fL MCH 29.1 (27.0-33.0) pg MCHC 34.5 (31.0-36.0) g/dl RDW 12.8 (11.0-16.0) % Plt Count 135 L (160-400) X10*3/uL MPV 9.8 (9.4-12.4) fL Immature Gran % (Auto) 0.5 H (0.0-0.4) % Neut % (Auto) 74.3 H (45-73) % Lymph % (Auto) 18.9 L (20-40) % [place] % (Auto) 6.2 (2-11) % Eos % (Auto) 0.0 (0-4) % Baso % (Auto) 0.1 (0-2) % Lymph # (Auto) 1.5 (1.2-4.9) X10*3/uL [place] # (Auto) 0.5 (0.1-1.2) X10*3/uL Eos # (Auto) 0.0 (0.0-0.4) X10*3/uL Baso # (Auto) 0.0 (0.0-0.2) X10*3/uL Abs Immat Gran (auto) 0.04 H (0.00-0.03) X10*3/uL Absolute Neuts (auto) 6.0 (2.0-8.3) x10*3/uL Absolute Nucleated RBC 0.000 (0.0-0.012) X10*3/uL Nucleated RBC % (auto) 0.0 (0.0-0.2) /100WBC Sodium 140 (135-145) mmol/L Potassium 4.1 (3.3-5.1) mmol/L Chloride 108 (96-108) mmol/L Carbon Dioxide 23 (22-29) mmol/L Anion Gap 13 (12-20) BUN 27 H (9-16) mg/dL Creatinine 1.35 (0.5-1.4) mg/dL Estim Creat Clear Calc 79.7 Estimated GFR 54 POC Glucose 78 109 (60-115) mg/dL Random Glucose 105 (60-115) mg/dL Calcium 9.6 (8.4-10.2) mg/dL Magnesium 2.4 (1.6-2.6) mg/dL Total Bilirubin 0.5 (0.0-1.0) mg/dL AST 36 (5-37) U/L ALT 58 H (0-40) U/L Alkaline Phosphatase 148 H (39-117) U/L Total Protein 7.5 (6.5-8.0) g/dL Albumin 4.5 (3.5-5.0) g/dL Lipase 15 (8-78) U/L Radiology Impression Discussion of test interpretation with radiology: I have reviewed the radiologist's reading. Radiologist Impression: 1 view abdomen Comparison: 02/16/2025 Findings: Normal bowel gas pattern. Xeeywdyp-yj-djhbb stool quantity. No abnormal calcifications. No pneumoperitoneum or pneumatosis. Bones unremarkable Impression: 1. Adsdjyid-fa-hjliz colonic stool burden. Otherwise, unremarkable bowel gas pattern This document has been electronically signed by: Ajay Tompkins MD on 06/29/2025 17:33:27 CT abdomen and pelvis with contrast Comparison: CT - CT ABDOMEN PELVIS WITH IV CONTRAST - 02/25/2023 01:12 PM EDT Findings: No consolidation or effusion. The spleen measures 19.1 x 16.2 x 9.2 cm The gallbladder and solid organs are otherwise within normal limits. No renal stones. No bowel obstruction, pneumoperitoneum, or pneumatosis. Pelvic contents unremarkable. Normal appendix. No acute fracture. IMPRESSION: Splenomegaly. This document has been electronically signed by: Bulmaro Plata MD on 06/29/2025 21:46:37 External Record Review External record reviewed: Outpatient record and Prior outpatient labs Discharge Plan Discharge Clinical Impression: Chronic idiopathic constipation Patient Disposition: Home, Self-Care Instructions: Constipation (ED) Additional Instructions: Thank you for choosing [facility]'s Emergency Department for your care today. Thankfully your laboratory evaluation, x-ray, CT, and exam today are reassuring. At this time there is no indication for admission to the hospital, surgical intervention, or continued ED observation, and it is safe to discharge you home. Your x-ray and CT show no acute intra-abdominal infection or other acute process requiring surgical intervention. Your imaging did show evidence of retained stool/constipation, despite your recent bowel movements. We have treated you have magnesium citrate. Please continue taking milk of magnesia as directed. We also recommend you stay well hydrated with water, eat a high-fiber diet, and take Colace twice a day to soften your stool. Please follow up with your primary care physician for re-evaluation, additional management of your symptoms, and continued preventative care. If you do not have a primary care physician, please call the [facility] at [phone] to establish a new primary care physician. While waiting to establish your new primary care physician, you can call our [facility]in [facility] at [phone] for non-emergency needs. Please return to the emergency department if you develop a severe or sudden change in your symptoms, a fever over 100.4 that does not improve with Tylenol or Ibuprofen, recurrent vomiting, or any other new or worsening symptoms or concerns. Prescriptions: New docusate sodium [Colace] 100 mg capsule 100 mg PO BID Qty: 20 0RF No Action (DME) blood-glucose meter [FreeStyle Lite Meter] Kit See Rx Instructions .Route Qty: 1 5RF Rx Instructions: Tests 4 X/day bisacodyl 5 mg tablet,delayed release (DR/EC) 10 mg PO BID Qty: 90 0RF (DME) lancets [FreeStyle Lancets] 28 gauge misc See Rx Instructions .Route Qty: 100 4RF Rx Instructions: Tests 5x/day glycerin (adult) Suppository 2 supp AL .after shower Qty: 25 6RF (DME) blood-glucose meter [FreeStyle Lite Meter] Kit See Rx Instructions .ROUTE .MEDSUPPLY Qty: 1 0RF Rx Instructions: As directed (DME) FreeStyle Jody 3 Mora Misc See Rx Instructions .ROUTE .MEDSUPPLY Qty: 1 0RF Rx Instructions: As directed for use with freestyle jody 3+ sensor (DME) pen needle, diabetic 29 gauge x 1/2 needle See Rx Instructions .ROUTE DAILY Qty: 100 3RF Rx Instructions: As directed daily Fiber Therapy (m-cellulose) 500 mg tablet 1,000 mg PO TID Qty: 180 6RF metformin 500 mg tablet 1,000 mg PO BID 90 Days Qty: 360 1RF Tresiba FlexTouch U-200 200 unit/mL (3 mL) insulin pen 58 unit subcut DAILY 90 Days Qty: 27 3RF cholecalciferol (vitamin D3) 25 mcg (1,000 unit) capsule 25 mcg PO DAILY Qty: 90 4RF metoclopramide HCl 10 mg tablet 10 mg PO TID Qty: 90 0RF ibuprofen 800 mg tablet 800 mg PO Q8H PRN (Reason: for pain) 30 Days Qty: 90 0RF Rx Instructions: take with food (DME) FreeStyle Lite Strips Strip See Rx Instructions .Route Qty: 100 5RF Rx Instructions: Tests 5X/day gabapentin 300 mg capsule 300 mg PO BEDTIME 90 Days Qty: 90 1RF furosemide 20 mg tablet 20 mg PO DAILY Qty: 90 1RF Jardiance 25 mg tablet 25 mg PO QAM Qty: 30 3RF acetaminophen 500 mg tablet 1,000 mg PO Q6-8H PRN (Reason: pain) Qty: 30 1RF Rx Instructions: SHOULD NOT EXCEED TOTAL DAILY DOSE OF 2000 mg/day - cause affect liver if high dose is taken regularly atorvastatin 10 mg tablet 10 mg PO DAILY Qty: 90 0RF benztropine 0.5 mg tablet 0.5 mg PO BID acetaminophen 325 mg capsule 650 mg PO Q4H PRN (Reason: pain) Qty: 30 0RF cyclobenzaprine 10 mg tablet 10 mg PO TID PRN (Reason: muscle spasm) Qty: 12 0RF polyethylene glycol 3350 [Miralax] 17 gram/dose powder 17 g PO DAILY Qty: 510 0RF lidocaine [Lidoderm] 5 % adhesive patch,medicated 1 patch topical DAILY Qty: 15 0RF Rx Instructions: leave on most painful area for up to 12 hrs famotidine [Pepcid] 20 mg tablet 20 mg PO DAILY PRN (Reason: abdominal discomfort) Qty: 30 0RF senna 8.6 mg capsule 8.6 mg PO BEDTIME PRN (Reason: constipation) Qty: 30 0RF docusate sodium [Colace] 100 mg capsule 100 mg PO BID PRN (Reason: constipation) Qty: 30 0RF magnesium citrate Solution 150 ml PO DAILY PRN (Reason: constipation) 2 Days Qty: 296 0RF Rx Instructions: only take for the next two days no more than that senna 8.6 mg capsule 8.6 mg PO BEDTIME Qty: 14 0RF lidocaine 5 % adhesive patch,medicated 1 patch topical DAILY Qty: 15 0RF Rx Instructions: leave on most painful area for up to 12 hrs clozapine 100 mg tablet 100 mg PO TID sildenafil 50 mg tablet 50 mg PO DAILY PRN (Reason: sexual activity) Qty: 30 0RF Rx Instructions: administer 30 minutes to 4 hours before activity docusate sodium 100 mg capsule 100 mg PO BID Qty: 60 6RF Linzess 290 mcg capsule 290 mcg PO QAM Qty: 30 6RF magnesium hydroxide [Milk of Magnesia] 400 mg/5 mL suspension 20 ml PO BEDTIME PRN (Reason: constipation) Qty: 3780 6RF simethicone 180 mg capsule 180 mg PO TID Qty: 90 6RF Wart Remover 17 % liquid 1 appl topical .every 2 weeks Qty: 9 0RF Rx Instructions: Apply to wart only, repeat in 2 weeks if no improvement. Do not use more than 4 treatments. (DME) FreeSportsBeep Jody 3 Plus Sensor Device See Rx Instructions .ROUTE .MEDSUPPLY Qty: 2 11RF Rx Instructions: every 15 days for continuous use guaifenesin 200 mg/5 mL liquid 400 mg PO Q6H PRN (Reason: cough) Qty: 118 0RF insulin lispro [Humalog KwikPen Insulin] 100 unit/mL insulin pen 12 unit subcut DAILY 30 Days Qty: 6 6RF Rx Instructions: with the largest meal of the day cetirizine [Zyrtec] 10 mg tablet 10 mg PO DAILY Qty: 30 0RF ketoconazole 2 % cream 1 appl topical DAILY Qty: 30 3RF tamsulosin [Flomax] 0.4 mg capsule 0.4 mg PO BEDTIME 90 Days Qty: 90 1RF tadalafil 5 mg tablet 5 mg PO DAILY 90 Days Qty: 90 0RF Referrals: Luis Manuel Garcia MD [Primary Care Provider, Internal Medicine] Clinical Impression: Chronic idiopathic constipation Print Language: Lithuanian
[2025-06-29 16:42] VITALS: BP 131/93; PULSE 93; RESP 18; TEMP 36.8; O2SAT 95; BMI 37.4
[2025-06-29 16:55] LABS: MANUAL DIFF FLAG NO
[2025-06-29 16:56] LABS: Hemoglobin 15.3 g/dl (14.0-18.0); NRBC Abs Auto 0.000 X10*3/uL (0.0-0.012); NRBC Pct Auto 0.0 /100WBC (0.0-0.2); PLT CLUMP 1; SCAN SMEAR FLAG 1
--- OUTSIDE RECORDS SUMMARY | 2025-06-29 16:56 | XMS_ITS | Patient Health Record ---
[facility] Organization 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 Role Phone Jose RENAE, Luis Manuel Primary Care Provider Tu Ch Unavailable [phone] Allergies No Known Allergies Results Component Value [...] Problem Acquired hammer toe of right foot (997417933296984 5) Other hammer toe(s) (acquired), right foot (M20.41) Active confirmed Problem Plantar fascial fibromatosis (31164313) Plantar fascial fibromatosis (M72.2) Active confirmed Problem Acquired hammer toe of left foot (412467280708043 3) Other hammer toe(s) (acquired), left foot (M20.42) Active confirmed Problem Type II diabetes mellitus without complication (033236241) Type 2 diabetes mellitus without complication (E11.9) Active confirmed Vital Signs Blood pressure diastolic 80 mm Hg 08/30/2024 Height 6ft in 08/30/2024 Blood pressure systolic 130 mm Hg 08/30/2024 Weight 270 lbs 08/30/2024 BMI 36.61 kg/m2 08/30/2024 Procedures Procedure Date Ordered Date Performed Result Body Sit e 09122-VNHVNXH NAIL, 6 OR MORE 08/30/2024 N/A 58595-LPCP SKIN LESIONS, 2 TO 4 08/30/2024 N/A Encounters Encounter Location Date Provider Diagnosis [address] [address] 08/30/2024 Tu Pierre Pain in right toe(s) M79.674 ; Tinea unguium B35.1 ; Pain in left toe(s) M79.675 ; Type 2 diabetes mellitus without complication E11.9 ; Other hammer toe(s) (acquired), right foot M20.41 and Other hammer toe(s) (acquired), left foot M20.[facility] [address] 09/03/[address] [facility] [address] 10/01/2024 Tu Pierre [address] [address] 12/06/2024 Tu Pierre Plantar fascial fibromatosis M72.2 [...] X ray : Foot, right 3V 03/08/2024 17739-[id number] NAIL, 6 OR MORE 03/08/2024 [id number] NAIL, 6 OR MORE 06/21/2024 [id number] NAIL, 6 OR MORE 08/30/2024 17391-Tuiaqyzy Plate 03/08/2024 80368-GCJG SKIN LESIONS, 2 TO 4 03/08/20 24 [id number] SKIN LESIONS, 2 TO 4 08/30/19 [id number] SKIN LESIONS, 2 TO 4 06/21/20 24 Insurance Providers Payer Name Payer Address Payer Phone Subscriber Number Group Number Insured Name Patient Relationship to Insured Coverage Start Date Coverage End Date [facility] [employer] Claims [address] [place] [address] [id number] Mike Cornejo Self - patient is the insured Medical (General) History Medical History History ICD Code Diabetic Surgical History Surgery Date(Month/Year)
[2025-06-29 16:58] LABS: Hematocrit 44.4 % (42.0-52.0); Imm Gran Abs Auto 0.04 X10*3/uL (0.00-0.03); Imm Gran Pct Auto 0.5 % (0.0-0.4); Lymphocytes Absolute Auto 1.5 X10*3/uL (1.2-4.9); Mean Corpuscular HGB Conc 34.5 g/dl (31.0-36.0); Mean Corpuscular Hemoglobin 29.1 pg (27.0-33.0); Mean Corpuscular Volume 84.4 fL (80.0-98.0); Red Blood Count 5.26 X10*6/uL (4.60-5.80)
[2025-06-29 17:00] LABS: Platelet Count 135 X10*3/uL (160-400); White Blood Count 8.1 X10*3/uL (4.8-10.8)
[2025-06-29 17:09] LABS: Alanine Aminotransferase 58 U/L (0-40); Albumin Level 4.5 g/dL (3.5-5.0); Alkaline Phosphatase 148 U/L (39-117); Anion Gap 13 (12-20); Aspartate Amino Transferase 36 U/L (5-37); Blood Urea Nitrogen 27 mg/dL (9-16); Calcium 9.6 mg/dL (8.4-10.2); Carbon Dioxide 23 mmol/L (22-29); Chloride 108 mmol/L (96-108); Creatinine Clr Calc Pharmacy 79.7; Estimated Glomerular Filt Rate 54; Lipase 15 U/L (8-78); Magnesium 2.4 mg/dL (1.6-2.6); Potassium 4.1 mmol/L (3.3-5.1); Sodium 140 mmol/L (135-145); Total Protein 7.5 g/dL (6.5-8.0)
[2025-06-29 18:59] VITALS: BP 114/78; PULSE 83; RESP 18; TEMP 36.5; O2SAT 97
--- NOTE | 2025-06-29 19:05 | PC.NURSE ---
Report from Luz RASHID. Patient awake, alert and oriented x 4. patient states he drove himself to the ED this evening. c/o a few weeks of bilateral groin pain traveling into lower abdomen. patient reports feeling full quickly when eating causing decreased appetite and low blood sugars. reports constipation. abdomen firm,distended. active bowel sounds x 4. aware of need for urine sample.
--- NOTE | 2025-06-29 20:01 | PC.NURSE ---
Patient reports his glucometer is reading 69, also states he is feeling light headed. Blood sugar assessed w/ result of 78. IV established and physician aware.
[2025-06-29 20:02] LABS: Glucose, Whole Blood 78 mg/dL (60-115)
--- NOTE | 2025-06-29 20:07 | PC.NURSE ---
IV dextrose administered per order for hypoglycemia. patient awake and alert and aware of plan of care
[2025-06-29] MEDS: iohexoL 350 MG/ML 100 ML INFUS..BTL IV (20:41)
[2025-06-29 21:21] LABS: Glucose, Whole Blood 109 mg/dL (60-115)
[2025-06-29 22:10] VITALS: BP 105/67; PULSE 73; RESP 18; TEMP 36.4; O2SAT 97
--- NOTE | 2025-06-29 22:19 | PC.NURSE ---
per PA patient can eat at this time. patient given food.
[2025-06-29 22:52] VITALS: BP 105/67; PULSE 73; RESP 18; TEMP 36.4; O2SAT 97
== END 2025-06-29 22:52 | disposition home or self-care (01) ==
PROVIDERS: Physician Assistant Medical; Emergency Provider Student in an Organized Health Care Education/Training Program; PCP Internal Medicine
DX: K59.04 Chronic idiopathic constipation (principal); E11.22 Type 2 diabetes mellitus with diabetic chronic kidney disease; N18.30 Chronic kidney disease, stage 3 unspecified; E11.40 Type 2 diabetes mellitus with diabetic neuropathy, unspecified
CPT/HCPCS: 36415; 74018; 74177; 80053; 82947; 83690; 83735; 85025; 96374; 99284; 99285; Q9967

== ENCOUNTER → 2025-06-29 16:43 | Outpatient (BNV) | payer OTHER, SELFPAY | PROVIDERS: PCP Internal Medicine; Visit Provider Radiology Diagnostic Radiology | DX: R16.1 Splenomegaly, not elsewhere classified (principal); K56.41 Fecal impaction | CPT/HCPCS: 74018; 74177 ==

== ENCOUNTER 2025-07-13 18:39 | Emergency (ER) | payer OTHER, SELFPAY ==
--- OUTSIDE RECORDS SUMMARY | 2024-11-15 05:00 | XMS_ITS ---
Author Organization [facility] Address [address] [place] [address] Care Team Providers Care Salvationist Name Role Phone Luis Manuel Garcia MD Primary Care Provider Unava ilTu [place] Unavailable [phone] Encounters Encounter Location Date Provider Diagnosis [facility] [address] [place] [address] 11/15/2024 Tu Pierre Plan Of Treatment No Information Progress Notes * Mike BAIRDDOB:[birth year] (64 yo M)Acc No.[id number]:11/15/2024 Progress Note Patient: Mike JACOBO Provider: Magaly Pierre DPM :1960 A ge:64 Y S ex:Male Date:11/15/2024 Address:[address] [place] [address] Pcp:Luis Manuel Garcia MD Subjective: * Chief Complaints: * * Medical History: Objective: * Vitals: Assessment: Plan: * Treatment: * Images: * The named appointment provid er may or may not be the originator of this progress note, and it is not deemed complete until electronically signed by the appointment provider. Sign off status: Pending * Provider: Magaly Pierre DPM Date: 11/15/2024 Generated for Ruthy wood/Garrison/Harvey on: 09/12/2024 09:17 PM EST
--- NOTE | ~2025-07-13 | CT_ITS ---
CLINICAL HISTORY: lower abd pain CT abdomen and pelvis with contrast Comparison: CT/REG/SR - CT ABDOMEN PELVIS W IV CON - 06/29/25 20:39 EST Findings: Minor dependent atelectasis at the lung bases. Splenomegaly at 19 cm. Similar to the prior. Lobulated liver surface. This can be associated with cirrhosis. There are a few subcentimeter left renal cortical cysts. Gallbladder and solid organs otherwise unremarkable. No urolithiasis. Fluid throughout the small bowel. No dilated loops or abnormal wall thickening. Mesenteric vessels are patent. Large amount of stool. Normal appendix. No ascites or hernia. The bones are intact. IMPRESSION: 1. Large amount of stool without bowel obstruction. 2. Nonspecific fluid in the small bowel. No evidence of obstruction or enteritis. 3. Additional nonacute findings as above. This document has been electronically signed by: Hanane Baltazar MD on 07/14/2025 02:17:57
[2025-07-13 18:43] VITALS: BP 115/63; PULSE 109; RESP 22; TEMP 36.1; O2SAT 98; BMI 37.6
--- NOTE | 2025-07-13 19:31 | ECG_ITS ---
Test Reason : weakness Blood Pressure : */* mmHG Vent. Rate : 107 BPM Atrial Rate : 107 BPM P-R Int : 142 ms QRS Dur : 94 ms QT Int : 368 ms P-R-T Axes : 39 208 16 degrees QTcB Int : 491 ms Sinus tachycardia Possible Anterolateral infarct (cited on or before 26-Dec-2022) Abnormal ECG When compared with ECG of 22-Dec-2024 15:20, No significant changes seen Referred By: Rajan Uriarte Electronically Signed By: NEVILLE SOTO
--- NOTE | 2025-07-13 19:31 | ED_ITS ---
HPI - General Adult General Chief complaint: Abdominal Pain Stated complaint: ABD PAIN Time Seen by Provider: 07/13/25 21:43 History of Present Illness HPI narrative: Patient is a 64-year-old male with a history of diabetes currently on metformin. Presented today with having abdominal pain in lower abdomen no history of abdominal surgery in the past. History of schizoaffective disorder history of hypercholesterolemia patient is from home. Normally on insulin. No fever no chills had bowel movement yesterday and today. Patient denies having similar pain in the past. No vomiting. No nausea. Related Data Home Medications ?Medication ?Instructions ?Recorded ?Confirmed benztropine 0.5 mg tablet 0.5 mg PO BID 04/29/2206/07 clozapine 100 mg tablet 100 mg PO TID 05/12/2206/07 Previous Rx's ?Medication ?Instructions ?Recorded blood-glucose meter (FreeStyle #1 ea 03/27/23 Lite Meter kit) bisacodyl 5 mg tablet,delayed 10 mg (2 x 5 mg) PO BID #90 tabs 01/02/24 release Held on 01/11/24. Instructions: Doctor's Order lidocaine 5 % topical patch 1 patch topical DAILY #15 ea 01/04/24 lancets 28 gauge (FreeStyle #100 ea 05/08/24 Lancets) glycerin (adult) 2 supp NE .after shower 06/14 01/04 constipation #25 ea guaifenesin 200 mg/5 mL oral liquid 400 mg (10 mL) PO Q6H PRN cough 07/01/24 #118 mL blood-glucose meter (FreeStyle #1 ea 07/18/24 Lite Meter kit) blood-glucose,complaint investigations officer,cont #1 ea 10/09/24 (FreeStyle Jody 3 Troy) salicylic acid 17 % topical liquid 1 appl topical .doreen ry 2 weeks #9 mL 12/10/24 (Wart Remover) blood-glucose sensor (FreeStyle #2 ea 01/16/25 Jody 3 Plus Sensor device) docusate sodium 100 mg capsule 100 mg PO BID #60 caps 01/23/25 linaclotide 290 mcg capsule 290 mcg PO QAM #30 caps (Linzess) magnesium hydroxide 400 mg/5 mL 20 ml PO BEDTIME PRN c onstipation 01/23/25 oral suspension (Milk of Magnesia) #3,780 mL simethicone 180 mg capsule 180 mg PO TID #90 caps 01/12 10/08 acetaminophen 325 mg capsule 650 mg (2 x 325 mg) PO Q4 H PRN 01/26/25 pain #30 caps cyclobenzaprine 10 mg tablet 10 mg PO TID PRN muscle s pasm #12 01/26/25 tabs pen needle, diabetic 29 gauge x #100 ea 01/27/25 1 methylcellulose (laxative) 500 mg 1,000 mg (2 x 500 mg ) PO TID #180 01/30/25 tablet (Fiber Therapy tabs (methylcellulose)) metformin 500 mg tablet 1,000 mg (2 x 500 mg) PO BID 90 01/31/25 days #360 tabs polyethylene glycol 3350 17 17 g PO DAILY #510 grams 0 02/05/25 gram/dose oral powder (Miralax) Humalog KwikPen Insulin 100 12 unit (0.12 mL) subcut D AILY 30 02/06/25 unit/mL subcutaneous (insulin days #6 mL lispro) Tresiba FlexTouch U-200 200 58 unit (0.29 mL) subcut D AILY 90 02/20/25 unit/mL (3 mL) subcutaneous pen days #27 mL (insulin degludec) sildenafil 50 mg tablet 50 mg PO DAILY PRN sexual ac tivity 02/21/25 #30 tabs cetirizine 10 mg tablet (Zyrtec) 10 mg PO DAILY #30 ta bs 02/24/25 lidocaine 5 % topical patch 1 patch topical DAILY #15 ea 03/02/25 (Lidoderm) ketoconazole 2 % topical cream 1 appl topical DAILY #3 0 grams 03/05/25 cholecalciferol (vitamin D3) 25 25 mcg PO DAILY #90 ca ps 03/11/25 mcg (1,000 unit) capsule metoclopramide HCl 10 mg tablet 10 mg PO TID #90 tabs 03/12/25 ibuprofen 800 mg tablet 800 mg PO Q8H PRN for pain 3 0 days 03/17/25 #90 tabs docusate sodium 100 mg capsule 100 mg PO BID PRN const ipation #30 03/31/25 (Colace) caps famotidine 20 mg tablet (Pepcid) 20 mg PO DAILY PRN ab dominal 03/31/25 discomfort #30 tabs magnesium citrate 150 ml PO DAILY PRN constipa tion 2 03/31/25 days #296 mL sennosides 8.6 mg capsule (senna) 8.6 mg PO BEDTIME NE N constipation 03/31/25 #30 caps sennosides 8.6 mg capsule (senna) 8.6 mg PO BEDTIME #1 4 caps 04/28/25 blood sugar diagnostic (FreeStyle #100 ea 04/29/25 Lite Strips) gabapentin 300 mg capsule 300 mg PO BEDTIME 90 days #9 0 caps 05/01/25 furosemide 20 mg tablet 20 mg PO DAILY #90 tabs 04/15 11/05 empagliflozin 25 mg tablet 25 mg PO QAM #30 tabs 05/21 (Jardiance) tadalafil 5 mg tablet 5 mg PO DAILY 90 days #90 ta bs 05/22/25 tamsulosin 0.4 mg capsule (Flomax) 0.4 mg PO BEDTIME 9 0 days #90 tabs 05/22/25 atorvastatin 10 mg tablet 10 mg PO DAILY #90 tabs 05/15 12/06 docusate sodium 100 mg capsule 100 mg PO BID #20 caps 06/29/25 (Colace) acetaminophen 500 mg tablet 1,000 mg (2 x 500 mg) PO Q 6-8H PRN 07/07/25 pain #30 tabs polyethylene glycol 3350 17 17 g PO DAILY For constipa tion 07/14/25 gram/dose oral powder (Miralax) #119 grams Allergies Allergy/AdvReac Type Severity Reaction Status Date / Time No Known Allergies (No Known Allergy Verified 07/13/25 18:44 Allergies*) Review of Systems 2 Review of Systems: Positive lower abdominal pain Yes all other systems are reviewed and are negative [facility] Past Medical History Attestation statement: The following information was validated with the patient. Medical History Generalized muscle ache Acute respiratory disease Impacted cerumen, right ear Acute diarrhea Pain in both feet Calcaneal spur of right foot Achilles tendinitis Callus of foot Right hand pain Abdominal bloating Vertigo Calcaneal spur Colon cancer screening COVID-19 Pre-op examination Elevated LFTs Encounter for Medicare annual wellness exam Bowel obstruction Melena Knee pain, bilateral Gastroenteritis Healed wound Chronic idiopathic constipation Chronic idiopathic constipation Hospital discharge follow-up Knee osteoarthritis Obesity (BMI 30-39.9) Schizoaffective disorder Pure hypercholesterolemia Benign essential hypertension Chronic kidney disease (CKD), stage III (moderate) Type 2 diabetes mellitus with diabetic chronic kidney disease Morbid obesity Dyslipidemia 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 diabetes mellitus 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 Diabetic polyneuropathy associated with type 2 diabetes mellitus Schizo affective schizophrenia Diabetes type 2, uncontrolled Surgical History History of repair of congenital cleft palate Hx of circumcision Family History Family History Father HTN (hypertension) Mother Diabetes Other Mental health problem Social History Social History Household Members: None Housing: Apartment Are you a primary managed care analyst to a significant other at home: No Do you presently have visiting nurse or other home services: Yes Alcohol intake: former Patient Tobacco Use Status: Former Tobacco user Tobacco use type: Cigarette Cigarettes Per Day: 15 Years Smoked: 8 quit 30 years ago e-Cigarette/Vaping Use: Never Used Second Hand Smoke Exposure: No Substance Use Type: Prescription Drugs service: No Current occupational status: employed Current occupation: [employer] Cognitive needs: No Hearing needs: No Vision needs: Yes (glasses) Physical Exam ED Exam Exam: Appearance: Alert. Oriented X3. No acute distress. Eyes: Pupils equal, round and reactive to light. ENT: Pharynx normal. Neck: Normal inspection. Neck supple. No lymph nodes noted. No crepitus CVS: Normal heart rate and rhythm. Pulses normal. Normal S1 and S2 Respiratory: No respiratory distress. Breath sounds normal. No Wheezing. No rales Abdomen: Soft and nontender. No rigidity. No distention. good BS x4 Skin: Skin warm and dry. Normal skin color. Normal skin turgor. Extremities: No lower extremity edema. Neurovascular intact to all extremities. No Lacerations. No Rash Neuro: Oriented X 3. No motor deficit. No sensory deficit. Moving all extermities. No slurred speech Vital Signs: Vital Signs - 24 hr 07/13/25 18:43 07/13/25 23:25 07/14/25 02:00 Temperature 96.9 F 97.8 F 98.1 F Pulse Rate 109 H 109 H 77 Respiratory Rate 22 H 22 H 16 Blood Pressure 115/63 106/65 116/72 Pulse Oximetry 98 97 96 Oxygen Delivery Method Room Air Room Air Room Air 07/14/25 03:37 Temperature 98.1 F Pulse Rate 77 Respiratory Rate 16 Blood Pressure 116/72 Pulse Oximetry 96 Oxygen Delivery Method Room Air BMI result Body Mass Index 37.6 Course Course Course Narrative: Medical screening exam performed. Please refer to detailed history, exam, evaluation, and management by primary provider. Patient with abdominal pain and feels lightheaded. Medications Administered Discontinued Medications Generic Name Dose Route Start Last Admin Trade Name Freq PRN Reason Stop Dose Admin Sodium Chloride 1,000 mls @ 999 mls/hr 07/13/25 22:15 07/13/25 23:27 Ns IV 07/13/25 23:15 Infused .Q1H1M SALENA Infusion Sodium Chloride 1,000 mls @ 999 mls/hr 07/13/25 22:15 07/13/25 23:27 Ns IV 07/13/25 23:15 Infused .Q1H1M SALENA Infusion Iohexol 100 ml 07/14/25 00:43 07/14/25 00:43 Iohexol 350 Mg/Ml 100 Ml Infus..Btl IV 07/14/25 00:44 100 ml ONCE ONE Administration Mineral Oil 133 ml 07/14/25 02:31 07/14/25 02:39 Mineral Oil Enema 133 Ml Enema NE 07/14/25 02:32 133 ml ONCE ONE Administration Sodium Biphosphate/Sodium Phosphate 133 ml 07/14/25 02:21 07/14/25 02:40 Sodium Phosphate,[place]-Dibasic 133 Ml Enema NE 07/14/25 02:22 Not Given ONCE ONE Medical Decision Making Medical Decision Making MDM Narrative: Patient presents today with having lower abdominal pain. Ongoing since this morning. No nausea no vomiting no diarrhea. Had a bowel movement yesterday. History of schizoaffective disorder. Patient is diabetic he is on metformin. Likely the cause of his lactic acidosis. Patient's white count is 7.9. His electrolyte showed a normal anion gap. Likely some dehydration with a bicarb of 16. Sugar was 2 units 17. No evidence for DKA. Patient's urine showed no infection. CT scan of the abdomen and pelvis currently pending. CT scan showed constipation. A dose of Fleet enema will be given. Patient to be discharged home. A script for MiraLax given. In stable condition. Differential Diagnosis Differential Diagnoses: The differential diagnosis associated with the presentation includes Diverticulitis, UTI, obstruction, kidney stone Admission/Observation Consideration of admission/observation: Escalation of care including admission/observation considered Lab Data MDM Lab Attestation statement: I reviewed the patient's lab results. 07/13/25 20:05 07/13/25 20:05 Labs: Lab Results 07/13/25 07/13/25 07/14/25 Range/Units 20:05 23:43 00:04 WBC 7.9 (4.8-10.8) X10*3/uL RBC 6.08 H (4.60-5.80) X10*6/uL Hgb 17.7 (14.0-18.0) g/dl Hct 51.2 (42.0-52.0) % MCV 84.2 (80.0-98.0) fL MCH 29.1 (27.0-33.0) pg MCHC 34.6 (31.0-36.0) g/dl RDW 13.2 (11.0-16.0) % Plt Count TNP MPV 10.7 (9.4-12.4) fL Immature Gran % (Auto) 0.3 (0.0-0.4) % Neut % (Auto) 90.9 H (45-73) % Lymph % (Auto) 2.7 L (20-40) % [place] % (Auto) 6.0 (2-11) % Eos % (Auto) 0.0 (0-4) % Baso % (Auto) 0.1 (0-2) % Lymph # (Auto) 0.2 L (1.2-4.9) X10*3/uL [place] # (Auto) 0.5 (0.1-1.2) X10*3/uL Eos # (Auto) 0.0 (0.0-0.4) X10*3/uL Baso # (Auto) 0.0 (0.0-0.2) X10*3/uL Abs Immat Gran (auto) 0.02 (0.00-0.03) X10*3/uL Absolute Neuts (auto) 7.1 (2.0-8.3) x10*3/uL Absolute Nucleated RBC 0.000 (0.0-0.012) X10*3/uL Nucleated RBC % (auto) 0.0 (0.0-0.2) /100WBC Smear Tech's Comments VERIFIED Sodium 141 (135-145) mmol/L Potassium 4.0 (3.3-5.1) mmol/L Chloride 111 H (96-108) mmol/L Carbon Dioxide 18 L (22-29) mmol/L Anion Gap 16 (12-20) BUN 26 H (9-16) mg/dL Creatinine 1.16 (0.5-1.4) mg/dL Estim Creat Clear Calc 93.0 Estimated GFR > 60 Random Glucose 217 H (60-115) mg/dL Lactic Acid 2.6 H* (0.5-2.0) mmol/L Lactic Acid F/U @ 2Hr 2.0 (0.5-2.0) mmol/L Calcium 9.2 (8.4-10.2) mg/dL Total Bilirubin 0.5 (0.0-1.0) mg/dL AST 37 (5-37) U/L ALT 54 H (0-40) U/L Alkaline Phosphatase 168 H (39-117) U/L Total Protein 7.3 (6.5-8.0) g/dL Albumin 4.4 (3.5-5.0) g/dL Lipase 13 (8-78) U/L Urine Color Yellow Urine Appearance Clear Urine pH 5.0 (5.0-9.0) Ur Specific [place] >= 1.030 H (1.005-1.025) Urine Protein Negative (Neg-Trace) mg/dL Urine Glucose (UA) >=1000 H (Negative) mg/dL Urine Ketones Trace (Negative) mg/dL Urine Blood Negative (Negative) Urine Nitrite Negative (Negative) Ur Leukocyte Esterase Negative (Negative) Urine RBC 0-2 (0-2) /HPF Urine WBC 0-5 (0-5) /HPF Ur Squamous Epith Cells 0-2 (0-2) /HPF Urine Bacteria None Seen (None Seen) Hyaline Casts 0-2 (0-2) /LPF External Record Review External record reviewed: Inpatient record Chronic Conditions Patient?s care impacted by: Diabetes Social Determinants Patient?s care significantly limited by Social Determinants of Health including: Problems related to primary support group Discharge Plan Discharge Clinical Impression: Constipation Patient Disposition: Home, Self-Care Instructions: Constipation (DC) Prescriptions: New polyethylene glycol 3350 [Miralax] 17 gram/dose powder 17 g PO DAILY Qty: 119 0RF No Action (DME) blood-glucose meter [FreeStyle Lite Meter] Kit See Rx Instructions .Route Qty: 1 5RF Rx Instructions: Tests 4 X/day bisacodyl 5 mg tablet,delayed release (DR/EC) 10 mg PO BID Qty: 90 0RF (DME) lancets [FreeStyle Lancets] 28 gauge misc See Rx Instructions .Route Qty: 100 4RF Rx Instructions: Tests 5x/day glycerin (adult) Suppository 2 supp NE .after shower Qty: 25 6RF (DME) blood-glucose meter [FreeStyle Lite Meter] Kit See Rx Instructions .ROUTE .MEDSUPPLY Qty: 1 0RF Rx Instructions: As directed (DME) FreeStyle Jody 3 Troy Misc See Rx Instructions .ROUTE .MEDSUPPLY Qty: 1 0RF Rx Instructions: As directed for use with freestyle jody 3+ sensor (DME) pen needle, diabetic 29 gauge x 1/2 needle See Rx Instructions .ROUTE DAILY Qty: 100 3RF Rx Instructions: As directed daily Fiber Therapy (m-cellulose) 500 mg tablet 1,000 mg PO TID Qty: 180 6RF metformin 500 mg tablet 1,000 mg PO BID 90 Days Qty: 360 1RF Tresiba FlexTouch U-200 200 unit/mL (3 mL) insulin pen 58 unit subcut DAILY 90 Days Qty: 27 3RF cholecalciferol (vitamin D3) 25 mcg (1,000 unit) capsule 25 mcg PO DAILY Qty: 90 4RF metoclopramide HCl 10 mg tablet 10 mg PO TID Qty: 90 0RF ibuprofen 800 mg tablet 800 mg PO Q8H PRN (Reason: for pain) 30 Days Qty: 90 0RF Rx Instructions: take with food (DME) FreeStyle Lite Strips Strip See Rx Instructions .Route Qty: 100 5RF Rx Instructions: Tests 5X/day gabapentin 300 mg capsule 300 mg PO BEDTIME 90 Days Qty: 90 1RF furosemide 20 mg tablet 20 mg PO DAILY Qty: 90 1RF Jardiance 25 mg tablet 25 mg PO QAM Qty: 30 3RF atorvastatin 10 mg tablet 10 mg PO DAILY Qty: 90 0RF acetaminophen 500 mg tablet 1,000 mg PO Q6-8H PRN (Reason: pain) Qty: 30 1RF Rx Instructions: SHOULD NOT EXCEED TOTAL DAILY DOSE OF 2000 mg/day - cause affect liver if high dose is taken regularly benztropine 0.5 mg tablet 0.5 mg PO BID acetaminophen 325 mg capsule 650 mg PO Q4H PRN (Reason: pain) Qty: 30 0RF cyclobenzaprine 10 mg tablet 10 mg PO TID PRN (Reason: muscle spasm) Qty: 12 0RF polyethylene glycol 3350 [Miralax] 17 gram/dose powder 17 g PO DAILY Qty: 510 0RF lidocaine [Lidoderm] 5 % adhesive patch,medicated 1 patch topical DAILY Qty: 15 0RF Rx Instructions: leave on most painful area for up to 12 hrs famotidine [Pepcid] 20 mg tablet 20 mg PO DAILY PRN (Reason: abdominal discomfort) Qty: 30 0RF senna 8.6 mg capsule 8.6 mg PO BEDTIME PRN (Reason: constipation) Qty: 30 0RF docusate sodium [Colace] 100 mg capsule 100 mg PO BID PRN (Reason: constipation) Qty: 30 0RF magnesium citrate Solution 150 ml PO DAILY PRN (Reason: constipation) 2 Days Qty: 296 0RF Rx Instructions: only take for the next two days no more than that docusate sodium [Colace] 100 mg capsule 100 mg PO BID Qty: 20 0RF senna 8.6 mg capsule 8.6 mg PO BEDTIME Qty: 14 0RF lidocaine 5 % adhesive patch,medicated 1 patch topical DAILY Qty: 15 0RF Rx Instructions: leave on most painful area for up to 12 hrs clozapine 100 mg tablet 100 mg PO TID sildenafil 50 mg tablet 50 mg PO DAILY PRN (Reason: sexual activity) Qty: 30 0RF Rx Instructions: administer 30 minutes to 4 hours before activity docusate sodium 100 mg capsule 100 mg PO BID Qty: 60 6RF Linzess 290 mcg capsule 290 mcg PO QAM Qty: 30 6RF magnesium hydroxide [Milk of Magnesia] 400 mg/5 mL suspension 20 ml PO BEDTIME PRN (Reason: constipation) Qty: 3780 6RF simethicone 180 mg capsule 180 mg PO TID Qty: 90 6RF Wart Remover 17 % liquid 1 appl topical .every 2 weeks Qty: 9 0RF Rx Instructions: Apply to wart only, repeat in 2 weeks if no improvement. Do not use more than 4 treatments. (DME) FreeStyle Jody 3 Plus Sensor Device See Rx Instructions .ROUTE .MEDSUPPLY Qty: 2 11RF Rx Instructions: every 15 days for continuous use guaifenesin 200 mg/5 mL liquid 400 mg PO Q6H PRN (Reason: cough) Qty: 118 0RF insulin lispro [Humalog KwikPen Insulin] 100 unit/mL insulin pen 12 unit subcut DAILY 30 Days Qty: 6 6RF Rx Instructions: with the largest meal of the day cetirizine [Zyrtec] 10 mg tablet 10 mg PO DAILY Qty: 30 0RF ketoconazole 2 % cream 1 appl topical DAILY Qty: 30 3RF tamsulosin [Flomax] 0.4 mg capsule 0.4 mg PO BEDTIME 90 Days Qty: 90 1RF tadalafil 5 mg tablet 5 mg PO DAILY 90 Days Qty: 90 0RF Referrals: Luis Manuel Garcia MD [Primary Care Provider, Internal Medicine] - 07/16/25 Interventions: ED Discharge Assessment Last Done: 07/14/25 03:37 Discharge Date/Time: 07/14/25 03:41 Print Language: Uzbek
[2025-07-13 20:19] LABS: Hematocrit 51.2 % (42.0-52.0); Hemoglobin 17.7 g/dl (14.0-18.0); Imm Gran Abs Auto 0.02 X10*3/uL (0.00-0.03); Imm Gran Pct Auto 0.3 % (0.0-0.4); Lymphocytes Absolute Auto 0.2 X10*3/uL (1.2-4.9); MANUAL DIFF FLAG SCAN; Mean Corpuscular HGB Conc 34.6 g/dl (31.0-36.0); Mean Corpuscular Hemoglobin 29.1 pg (27.0-33.0); Mean Corpuscular Volume 84.2 fL (80.0-98.0); NRBC Abs Auto 0.000 X10*3/uL (0.0-0.012); NRBC Pct Auto 0.0 /100WBC (0.0-0.2); PLT CLUMP 1; Red Blood Count 6.08 X10*6/uL (4.60-5.80); SCAN SMEAR FLAG 1
[2025-07-13 20:30] LABS: Alanine Aminotransferase 54 U/L (0-40); Albumin Level 4.4 g/dL (3.5-5.0); Alkaline Phosphatase 168 U/L (39-117); Anion Gap 16 (12-20); Aspartate Amino Transferase 37 U/L (5-37); Blood Urea Nitrogen 26 mg/dL (9-16); Calcium 9.2 mg/dL (8.4-10.2); Carbon Dioxide 18 mmol/L (22-29); Chloride 111 mmol/L (96-108); Creatinine Clr Calc Pharmacy 93.0; Estimated Glomerular Filt Rate > 60; Lipase 13 U/L (8-78); Potassium 4.0 mmol/L (3.3-5.1); Sodium 141 mmol/L (135-145); Total Protein 7.3 g/dL (6.5-8.0)
[2025-07-13 20:32] LABS: White Blood Count 7.9 X10*3/uL (4.8-10.8)
--- OUTSIDE RECORDS SUMMARY | 2025-07-13 21:17 | XMS_ITS | Patient Health Record ---
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 Name Role Phone Jose RENAE, Luis Manuel Primary Care Provider Tu Ch Unavailable [phone] Allergies No Known Allergies Results Component Value [...] Problem Status W/U Status Risk Notes Problem Information temporarily unavailable Other hammer toe(s) (acquired), right foot (M20.41) Active confirmed Problem Information temporarily unavailable Plantar fascial fibromatosis (M72.2) Active confirmed Problem Information temporarily unavailable Other hammer toe(s) (acquired), left foot (M20.42) Active confirmed Problem Information temporarily unavailable Type 2 diabetes mellitus without complication (E11.9) Active confirmed Vital Signs Blood pressure diastolic 80 mm Hg 08/30/2024 Height 6ft in 08/30/2024 Blood pressure systolic 130 mm Hg 08/30/2024 Weight 270 lbs 08/30/2024 BMI 36.61 kg/m2 08/30/2024 Procedures Procedure Date Ordered Date Performed Result Body Sit e 96851-BZPXCBE NAIL, 6 OR MORE 08/30/2024 N/A 66672-ASOS SKIN LESIONS, 2 TO 4 08/30/2024 N/A Encounters Encounter Location Date Provider Diagnosis [facility] [address] 08/30/2024 Tu Gabby Pain in right toe(s) M79.674 ; Tinea unguium B35.1 ; Pain in left toe(s) M79.675 ; Type 2 diabetes mellitus without complication E11.9 ; Other hammer toe(s) (acquired), right foot M20.41 and Other hammer toe(s) (acquired), left foot M20.42 [facility] [address] 09/03/2024 Tu [facility] [address] 10/01/2024 Tu [facility] [address] 12/06/2024 Tuwilliam Raiier Plantar fascial fibromatosis M72.2 Assessments Encounter Date [...] X ray : Foot, right 3V 03/08/2024 66231-CIHFPXU NAIL, 6 OR MORE 03/08/2024 50527-FIUHOLD NAIL, 6 OR MORE 06/21/2024 22925-TNORQCX NAIL, 6 OR MORE 08/30/2024 58949-Arrybmyy Plate 03/08/2024 75237-IJLF SKIN LESIONS, 2 TO 4 03/08/20 24 70077-XWMH SKIN LESIONS, 2 TO 4 08/30/19 25 18588-MTUU SKIN LESIONS, 2 TO 4 06/21/20 24 Insurance Providers Payer Name Payer Address Payer Phone Subscriber Number Group Number Insured Name Patient Relationship to Insured Coverage Start Date Coverage End Date [facility] [employer] Claims [address] [place] [id number] Mike Cornejo Self - patient is the insured Medical (General) History Medical History History ICD Code Diabetic Surgical History Surgery Date(Month/Year)
[2025-07-13 22:09] LABS: Reflex Lactate? Lactic Acid Added
--- NOTE | 2025-07-13 22:48 | PC.NURSE ---
IVF still running, Dr. Jo aware of lactic, lactic to be pulled after IVF.
[2025-07-13 23:25] VITALS: BP 106/65; PULSE 109; RESP 22; TEMP 36.6; O2SAT 97
[2025-07-14 00:12] LABS: Appearance Urine Clear; Glucose Urine UA >=1000 mg/dL (Negative); PH 5.0 (5.0-9.0); Specific Gravity - Urine >= 1.030 (1.005-1.025); UMIC TRIGGER UA YES
[2025-07-14 00:12] LABS: ~Lactic Acid-LAB USE ONLY 2.0 mmol/L (0.5-2.0)
[2025-07-14] MEDS: iohexoL 350 MG/ML 100 ML INFUS..BTL IV (00:43)
[2025-07-14 02:00] VITALS: BP 116/72; PULSE 77; RESP 16; TEMP 36.7; O2SAT 96
[2025-07-14 03:37] VITALS: BP 116/72; PULSE 77; RESP 16; TEMP 36.7; O2SAT 96
== END 2025-07-14 03:41 | disposition home or self-care (01) ==
PROVIDERS: Physician Assistant; Emergency Provider Emergency Medicine Emergency Medical Services; PCP Internal Medicine
DX: K59.00 Constipation, unspecified (principal); E11.22 Type 2 diabetes mellitus with diabetic chronic kidney disease; I12.9 Hypertensive chronic kidney disease with stage 1 through stage 4 chronic kidney disease, or unspecified chronic kidney disease; N18.30 Chronic kidney disease, stage 3 unspecified; Z79.84 Long term (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 of oral hypoglycemic drugs
CPT/HCPCS: 36415; 74177; 80053; 81001; 83605; 83690; 85025; 93005; 96360; 99285; Q9967

== ENCOUNTER → 2025-07-13 19:31 | Outpatient (BNV) | payer OTHER, SELFPAY | PROVIDERS: Emergency Provider Emergency Medicine Emergency Medical Services; PCP Internal Medicine; Visit Provider Internal Medicine | DX: R00.0 Tachycardia, unspecified (principal) | CPT/HCPCS: 93010 ==

== ENCOUNTER 2025-07-14 13:00 | Emergency (ER) | payer OTHER, SELFPAY ==
[2025-07-14 13:05] VITALS: BP 102/77; PULSE 95; RESP 18; TEMP 36.6; O2SAT 98; BMI 38.1
--- NOTE | 2025-07-14 13:05 | ED.GENADULT ---
HPI - General Adult General Chief complaint: General Medical Stated complaint: needs an enema, was here last night Time Seen by Provider: 07/14/25 16:38 Source: patient, RN notes reviewed and old records reviewed Mode of arrival: ambulatory Limitations: no limitations History of Present Illness ED Provider: Christian HPI narrative: Patient is a 64 year old male with pmhx T2DM on metformin, chronic idiopathic constipation, schizoaffective d/o presenting with constipation. Seen here yesterday for same, discharged home at 4 am. States he took Miralax but has not had a bowel movement today. Able to pass gas, denies nausea or vomiting. Denies fevers, chills, body aches. Unable to state when last BM was. Per MD note from last night, patient reportedly had BM yesterday and the day before. Patient specifically requesting a soapsuds enema. MD complaint: constipation Related Data Home Medications ?Medication ?Instructions ?Recorded ?Confirmed benztropine 0.5 mg tablet 0.5 mg PO BID 04/29/22 06/07/25 clozapine 100 mg tablet 100 mg PO TID 05/12/22 06/07/25 Previous Rx's ?Medication ?Instructions ?Recorded blood-glucose meter (FreeStyle #1 ea 03/27/23 Lite Meter kit) bisacodyl 5 mg tablet,delayed 10 mg (2 x 5 mg) PO BID #90 tabs 01/02/24 release Held on 01/11/24. Instructions: Doctor's Order lidocaine 5 % topical patch 1 patch topical DAILY #15 ea 01/04/24 lancets 28 gauge (FreeStyle #100 ea 05/08/24 Lancets) glycerin (adult) 2 supp GA .after shower 06/28/24 constipation #25 ea guaifenesin 200 mg/5 mL oral liquid 400 mg (10 mL) PO Q6H PRN cough 07/01/24 #118 mL blood-glucose meter (FreeStyle #1 ea 07/18/24 Lite Meter kit) blood-glucose,trademark affixer,cont #1 ea 10/09/24 (FreeStyle Jody 3 Orrum) salicylic acid 17 % topical liquid 1 appl topical .every 2 weeks #9 mL 12/10/24 (Wart Remover) blood-glucose sensor (FreeStyle #2 ea 01/16/25 Jody 3 Plus Sensor device) docusate sodium 100 mg capsule 100 mg PO BID #60 caps 01/23/25 linaclotide 290 mcg capsule 290 mcg PO QAM #30 caps 01/23/25 (Linzess) magnesium hydroxide 400 mg/5 mL 20 ml PO BEDTIME PRN constipation 01/23/25 oral suspension (Milk of Magnesia) #3,780 mL simethicone 180 mg capsule 180 mg PO TID #90 caps 01/23/25 acetaminophen 325 mg capsule 650 mg (2 x 325 mg) PO Q4H PRN 01/26/25 pain #30 caps cyclobenzaprine 10 mg tablet 10 mg PO TID PRN muscle spasm #12 01/26/25 tabs pen needle, diabetic 29 gauge x #100 ea 01/27/25 1/ methylcellulose (laxative) 500 mg 1,000 mg (2 x 500 mg) PO TID #180 01/30/25 tablet (Fiber Therapy tabs (methylcellulose)) metformin 500 mg tablet 1,000 mg (2 x 500 mg) PO BID 90 01/31/25 days #360 tabs polyethylene glycol 3350 17 17 g PO DAILY #510 grams 02/05/25 gram/dose oral powder (Miralax) Humalog KwikPen Insulin 100 12 unit (0.12 mL) subcut DAILY 30 02/06/25 unit/mL subcutaneous (insulin days #6 mL lispro) Tresiba FlexTouch U-200 200 58 unit (0.29 mL) subcut DAILY 90 02/20/25 unit/mL (3 mL) subcutaneous pen days #27 mL (insulin degludec) sildenafil 50 mg tablet 50 mg PO DAILY PRN sexual activity 02/21/25 #30 tabs cetirizine 10 mg tablet (Zyrtec) 10 mg PO DAILY #30 tabs 02/24/25 lidocaine 5 % topical patch 1 patch topical DAILY #15 ea 03/02/25 (Lidoderm) ketoconazole 2 % topical cream 1 appl topical DAILY #30 grams 03/05/25 cholecalciferol (vitamin D3) 25 25 mcg PO DAILY #90 caps 03/11/25 mcg (1,000 unit) capsule metoclopramide HCl 10 mg tablet 10 mg PO TID #90 tabs 03/12/25 ibuprofen 800 mg tablet 800 mg PO Q8H PRN for pain 30 days 03/17/25 #90 tabs docusate sodium 100 mg capsule 100 mg PO BID PRN constipation #30 03/31/25 (Colace) caps famotidine 20 mg tablet (Pepcid) 20 mg PO DAILY PRN abdominal 03/31/25 discomfort #30 tabs magnesium citrate 150 ml PO DAILY PRN constipation 2 03/31/25 days #296 mL sennosides 8.6 mg capsule (senna) 8.6 mg PO BEDTIME PRN constipation 03/31/25 #30 caps sennosides 8.6 mg capsule (senna) 8.6 mg PO BEDTIME #14 caps 04/28/25 blood sugar diagnostic (FreeStyle #100 ea 04/29/25 Lite Strips) gabapentin 300 mg capsule 300 mg PO BEDTIME 90 days #90 caps 05/01/25 furosemide 20 mg tablet 20 mg PO DAILY #90 tabs 05/06/25 empagliflozin 25 mg tablet 25 mg PO QAM #30 tabs 05/21/25 (Jardiance) tadalafil 5 mg tablet 5 mg PO DAILY 90 days #90 tabs 05/22/25 tamsulosin 0.4 mg capsule (Flomax) 0.4 mg PO BEDTIME 90 days #90 tabs 05/22/25 atorvastatin 10 mg tablet 10 mg PO DAILY #90 tabs 06/06/25 docusate sodium 100 mg capsule 100 mg PO BID #20 caps 06/29/25 (Colace) acetaminophen 500 mg tablet 1,000 mg (2 x 500 mg) PO Q6-8H PRN 07/07/25 pain #30 tabs polyethylene glycol 3350 17 17 g PO DAILY For constipation 07/14/25 gram/dose oral powder (Miralax) #119 grams Allergies Allergy/AdvReac Type Severity Reaction Status Date / Time No Known Allergies (No Known Allergy Verified 07/14/25 13:10 Allergies*) Review of Systems Review of Systems: As per HPI Yes all other systems are reviewed and are negative Constitutional: Constitutional: Reports as per HPI [facility] Past Medical History Medical History Generalized muscle ache Acute respiratory disease Impacted cerumen, right ear Acute diarrhea Pain in both feet Calcaneal spur of right foot Achilles tendinitis Callus of foot Right hand pain Abdominal bloating Vertigo Calcaneal spur Colon cancer screening COVID-19 Pre-op examination Elevated LFTs Encounter for Medicare annual wellness exam Bowel obstruction Melena Knee pain, bilateral Gastroenteritis Healed wound Chronic idiopathic constipation Chronic idiopathic constipation Hospital discharge follow-up Knee osteoarthritis Obesity (BMI 30-39.9) Schizoaffective disorder Pure hypercholesterolemia Benign essential hypertension Chronic kidney disease (CKD), stage III (moderate) Type 2 diabetes mellitus with diabetic chronic kidney disease Morbid obesity Dyslipidemia 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 diabetes mellitus long-term (current) use of insulin Diabetic polyneuropathy associated with type 2 diabetes mellitus Schizo affective schizophrenia Diabetes type 2, uncontrolled Surgical History History of repair of congenital cleft palate Hx of circumcision Family History Family History Father HTN (hypertension) Mother Diabetes Other Mental health problem Social History Social History Household Members: None Housing: Apartment Are you a primary pediatric care coordinator to a significant other at home: No Do you presently have visiting nurse or other home services: Yes Alcohol intake: former Patient Tobacco Use Status: Former Tobacco user Tobacco use type: Cigarette Cigarettes Per Day: 15 Years Smoked: 8 quit 30 years ago e-Cigarette/Vaping Use: Never Used Second Hand Smoke Exposure: No Substance Use Type: Prescription Drugs Do you have a plan to hurt others: No Plan service: No Current occupational status: employed Current occupation: [employer] Cognitive needs: No Hearing needs: No Vision needs: Yes (glasses) Physical Exam ED Vital Signs: Vital Signs - 24 hr 07/14/25 13:05 Temperature 98 F Pulse Rate 95 Respiratory Rate 18 Blood Pressure 102/77 Pulse Oximetry 98 Oxygen Delivery Method Room Air BMI result Body Mass Index 38.1 Vital signs have been reviewed and appear to be correct. Blood pressure normal. Heart rate normal. Respiratory rate normal. Temperature normal. Oxygen saturation normal. Const General: cooperative, healthy appearing and no acute distress Orientation/consciousness: oriented to person, oriented to place, oriented to time and patient oriented x3 Limitations: no limitations HENMT Head: Yes normocephalic and Yes atraumatic Ears: external ears normal General nose exam: Normal external nose present Face and sinus: Yes face symmetric Mouth: oropharynx normal and moist mucous membranes Throat: Yes uvula midline Eyes Pupils: Equal, round and reactive pupils present Neck Neck: Yes normal visual inspection and Yes supple Resp Effort & Inspection: normal respiratory effort and able to speak in complete sentences Auscultation: clear to auscultation bilaterally Cardio Rate: regular rate Rhythm: regular rhythm Heart sounds: S1 normal heart sound present and S2 normal heart sound present GI Palpation (GI): Soft to palpation and nontender Auscultation: normoactive bowel sounds General: Yes no CVA tenderness Back/Spine/Pelvis Back: no CVA tenderness Skin General skin exam: elasticity normal and turgor normal Neuro General: oriented to person, oriented to place, oriented to time, patient oriented x3, moves all extremities, no focal motor deficits and CN's II-XI intact bilaterally Cranial nerves: Yes Equal, round and reactive pupils present Cognition (Neuro): normal cognition Extrem General: Yes full ROM, Yes no pedal edema and Yes no calf tenderness Psych Mental Status: mental status grossly normal Affect: normal affect Thought process: Normal thought process present Course Course Course Narrative: This is a rapid medical exam performed by Romelia Gonzales NP: Additional HPI, ROS, PE not included below will be deferred to primary provider. Patient is a 64y/o M with pmhx T2DM, chronic idiopathic constipation, schizoaffective d/o presenting with constipation. Seen here yesterday for same, discharged home at 4 am. Patient specifically requesting a soapsuds enema. Plan: labs Medical Decision Making Medical Decision Making [place] Narrative: Patient is a 64 year old male with pmhx T2DM on metformin, chronic idiopathic constipation, schizoaffective d/o presenting with constipation. On exam patient is awake, A+Ox3, VS WNL, afebrile, normal neurological exam without focal deficits, physical exam findings as above. Given reported symptoms and physical exam findings, initial differential includes but is not limited to chronic constipation. Patient was seen in this ED yesterday and discharged early this morning. He had a CT A/P at 2am which showed large amount of stool in his colon without evidence of bowel obstruction. Labs notable for mildly elevated BUN/creatinine. Do not feel additional imaging is indicated at this time. Patient notes that he was able to have several bowel movements while in the waiting room and is feeling better and is ready for discharge. I am comfortable with this plan. Advised patient to ensure adequate fluid intake over the next few days and follow up with PCP this week. Return precautions discussed. Patient verbalized understanding of and agreement with plan. Differential Diagnosis Differential Diagnoses: The differential diagnosis associated with the presentation includes as per [facility] Admission/Observation Consideration of admission/observation: Escalation of care including admission/observation considered Patient would have been admitted to the hospital and transferred to appropriate facility had their clinical presentation warranted hospital admission. Lab Data [place] Lab Attestation statement: I reviewed the patient's lab results. as per [facility] 07/14/25 14:36 07/14/25 14:36 Labs: Lab Results 07/14/25 Range/Units 14:36 WBC 7.4 (4.8-10.8) X10*3/uL RBC 5.55 (4.60-5.80) X10*6/uL Hgb 16.3 (14.0-18.0) g/dl Hct 45.9 (42.0-52.0) % MCV 82.7 (80.0-98.0) fL MCH 29.4 (27.0-33.0) pg MCHC 35.5 (31.0-36.0) g/dl RDW 13.3 (11.0-16.0) % Plt Count 115 L (160-400) X10*3/uL MPV 10.6 (9.4-12.4) fL Immature Gran % (Auto) 0.4 (0.0-0.4) % Neut % (Auto) 85.0 H (45-73) % Lymph % (Auto) 5.3 L (20-40) % [place] % (Auto) 9.2 (2-11) % Eos % (Auto) 0.0 (0-4) % Baso % (Auto) 0.1 (0-2) % Lymph # (Auto) 0.4 L (1.2-4.9) X10*3/uL [place] # (Auto) 0.7 (0.1-1.2) X10*3/uL Eos # (Auto) 0.0 (0.0-0.4) X10*3/uL Baso # (Auto) 0.0 (0.0-0.2) X10*3/uL Abs Immat Gran (auto) 0.03 (0.00-0.03) X10*3/uL Absolute Neuts (auto) 6.3 (2.0-8.3) x10*3/uL Absolute Nucleated RBC 0.000 (0.0-0.012) X10*3/uL Nucleated RBC % (auto) 0.0 (0.0-0.2) /100WBC Sodium 137 (135-145) mmol/L Potassium 3.3 (3.3-5.1) mmol/L Chloride 110 H (96-108) mmol/L Carbon Dioxide 17 L (22-29) mmol/L Anion Gap 13 (12-20) BUN 43 H (9-16) mg/dL Creatinine 1.42 H (0.5-1.4) mg/dL Estim Creat Clear Calc 76.5 Estimated GFR 51 Random Glucose 207 H (60-115) mg/dL Calcium 8.4 D (8.4-10.2) mg/dL Total Bilirubin 1.0 (0.0-1.0) mg/dL AST 24 (5-37) U/L ALT 41 H (0-40) U/L Alkaline Phosphatase 118 H (39-117) U/L Total Protein 6.8 (6.5-8.0) g/dL Albumin 4.1 (3.5-5.0) g/dL Independent Interpretation I performed an independent interpretation of an: CT Scan Interpretation: CT A/P obtained at prior visit early this am notable for large amount of stool without evidence of obstruction. Radiology Impression Discussion of test interpretation with radiology: I have reviewed the radiologist's reading. Radiologist Impression: IMPRESSION: 1. Large amount of stool without bowel obstruction. 2. Nonspecific fluid in the small bowel. No evidence of obstruction or enteritis. 3. Additional nonacute findings as above. External Record Review External record reviewed: Inpatient record, Office record and Outpatient record Discharge Plan Discharge Clinical Impression: Constipation Patient Disposition: Home, Self-Care Instructions: Constipation (DC) Additional Instructions: You were evaluated in the emergency department today for constipation. Your symptoms resolved while in the ED without intervention. We recommend that you drink plenty of fluids over the next few days and follow up with your primary care provider this week. Return to the emergency department if you develop abdominal pain, persistent vomiting, are unable to pass gas rectally, develop fever 100.4 F or greater or any other new or concerning symptoms. Prescriptions: No Action (DME) blood-glucose meter [FreeStyle Lite Meter] Kit See Rx Instructions .Route Qty: 1 5RF Rx Instructions: Tests 4 X/day bisacodyl 5 mg tablet,delayed release (DR/EC) 10 mg PO BID Qty: 90 0RF (DME) lancets [FreeStyle Lancets] 28 gauge misc See Rx Instructions .Route Qty: 100 4RF Rx Instructions: Tests 5x/day glycerin (adult) Suppository 2 supp GA .after shower Qty: 25 6RF (DME) blood-glucose meter [FreeStyle Lite Meter] Kit See Rx Instructions .ROUTE .MEDSUPPLY Qty: 1 0RF Rx Instructions: As directed (DME) FreeStyle Jody 3 Orrum Misc See Rx Instructions .ROUTE .MEDSUPPLY Qty: 1 0RF Rx Instructions: As directed for use with freestyle jody 3+ sensor (DME) pen needle, diabetic 29 gauge x 1/2 needle See Rx Instructions .ROUTE DAILY Qty: 100 3RF Rx Instructions: As directed daily Fiber Therapy (m-cellulose) 500 mg tablet 1,000 mg PO TID Qty: 180 6RF metformin 500 mg tablet 1,000 mg PO BID 90 Days Qty: 360 1RF Tresiba FlexTouch U-200 200 unit/mL (3 mL) insulin pen 58 unit subcut DAILY 90 Days Qty: 27 3RF cholecalciferol (vitamin D3) 25 mcg (1,000 unit) capsule 25 mcg PO DAILY Qty: 90 4RF metoclopramide HCl 10 mg tablet 10 mg PO TID Qty: 90 0RF ibuprofen 800 mg tablet 800 mg PO Q8H PRN (Reason: for pain) 30 Days Qty: 90 0RF Rx Instructions: take with food (DME) FreeStyle Lite Strips Strip See Rx Instructions .Route Qty: 100 5RF Rx Instructions: Tests 5X/day gabapentin 300 mg capsule 300 mg PO BEDTIME 90 Days Qty: 90 1RF furosemide 20 mg tablet 20 mg PO DAILY Qty: 90 1RF Jardiance 25 mg tablet 25 mg PO QAM Qty: 30 3RF atorvastatin 10 mg tablet 10 mg PO DAILY Qty: 90 0RF acetaminophen 500 mg tablet 1,000 mg PO Q6-8H PRN (Reason: pain) Qty: 30 1RF Rx Instructions: SHOULD NOT EXCEED TOTAL DAILY DOSE OF 2000 mg/day - cause affect liver if high dose is taken regularly benztropine 0.5 mg tablet 0.5 mg PO BID acetaminophen 325 mg capsule 650 mg PO Q4H PRN (Reason: pain) Qty: 30 0RF cyclobenzaprine 10 mg tablet 10 mg PO TID PRN (Reason: muscle spasm) Qty: 12 0RF polyethylene glycol 3350 [Miralax] 17 gram/dose powder 17 g PO DAILY Qty: 510 0RF lidocaine [Lidoderm] 5 % adhesive patch,medicated 1 patch topical DAILY Qty: 15 0RF Rx Instructions: leave on most painful area for up to 12 hrs famotidine [Pepcid] 20 mg tablet 20 mg PO DAILY PRN (Reason: abdominal discomfort) Qty: 30 0RF senna 8.6 mg capsule 8.6 mg PO BEDTIME PRN (Reason: constipation) Qty: 30 0RF docusate sodium [Colace] 100 mg capsule 100 mg PO BID PRN (Reason: constipation) Qty: 30 0RF magnesium citrate Solution 150 ml PO DAILY PRN (Reason: constipation) 2 Days Qty: 296 0RF Rx Instructions: only take for the next two days no more than that docusate sodium [Colace] 100 mg capsule 100 mg PO BID Qty: 20 0RF senna 8.6 mg capsule 8.6 mg PO BEDTIME Qty: 14 0RF polyethylene glycol 3350 [Miralax] 17 gram/dose powder 17 g PO DAILY Qty: 119 0RF lidocaine 5 % adhesive patch,medicated 1 patch topical DAILY Qty: 15 0RF Rx Instructions: leave on most painful area for up to 12 hrs clozapine 100 mg tablet 100 mg PO TID sildenafil 50 mg tablet 50 mg PO DAILY PRN (Reason: sexual activity) Qty: 30 0RF Rx Instructions: administer 30 minutes to 4 hours before activity docusate sodium 100 mg capsule 100 mg PO BID Qty: 60 6RF Linzess 290 mcg capsule 290 mcg PO QAM Qty: 30 6RF magnesium hydroxide [Milk of Magnesia] 400 mg/5 mL suspension 20 ml PO BEDTIME PRN (Reason: constipation) Qty: 3780 6RF simethicone 180 mg capsule 180 mg PO TID Qty: 90 6RF Wart Remover 17 % liquid 1 appl topical .every 2 weeks Qty: 9 0RF Rx Instructions: Apply to wart only, repeat in 2 weeks if no improvement. Do not use more than 4 treatments. (DME) FreePrivate.Me Jody 3 Plus Sensor Device See Rx Instructions .ROUTE .MEDSUPPLY Qty: 2 11RF Rx Instructions: every 15 days for continuous use guaifenesin 200 mg/5 mL liquid 400 mg PO Q6H PRN (Reason: cough) Qty: 118 0RF insulin lispro [Humalog KwikPen Insulin] 100 unit/mL insulin pen 12 unit subcut DAILY 30 Days Qty: 6 6RF Rx Instructions: with the largest meal of the day cetirizine [Zyrtec] 10 mg tablet 10 mg PO DAILY Qty: 30 0RF ketoconazole 2 % cream 1 appl topical DAILY Qty: 30 3RF tamsulosin [Flomax] 0.4 mg capsule 0.4 mg PO BEDTIME 90 Days Qty: 90 1RF tadalafil 5 mg tablet 5 mg PO DAILY 90 Days Qty: 90 0RF Print Language: Kyrgyz
[2025-07-14 14:49] LABS: MANUAL DIFF FLAG NO
[2025-07-14 14:52] LABS: Hematocrit 45.9 % (42.0-52.0); Hemoglobin 16.3 g/dl (14.0-18.0); Imm Gran Abs Auto 0.03 X10*3/uL (0.00-0.03); Imm Gran Pct Auto 0.4 % (0.0-0.4); Lymphocytes Absolute Auto 0.4 X10*3/uL (1.2-4.9); Mean Corpuscular HGB Conc 35.5 g/dl (31.0-36.0); Mean Corpuscular Hemoglobin 29.4 pg (27.0-33.0); Mean Corpuscular Volume 82.7 fL (80.0-98.0); NRBC Abs Auto 0.000 X10*3/uL (0.0-0.012); NRBC Pct Auto 0.0 /100WBC (0.0-0.2); Platelet Count 115 X10*3/uL (160-400); Red Blood Count 5.55 X10*6/uL (4.60-5.80); White Blood Count 7.4 X10*3/uL (4.8-10.8)
[2025-07-14 15:04] LABS: Alanine Aminotransferase 41 U/L (0-40); Albumin Level 4.1 g/dL (3.5-5.0); Alkaline Phosphatase 118 U/L (39-117); Anion Gap 13 (12-20); Aspartate Amino Transferase 24 U/L (5-37); Blood Urea Nitrogen 43 mg/dL (9-16); Calcium 8.4 mg/dL (8.4-10.2); Carbon Dioxide 17 mmol/L (22-29); Chloride 110 mmol/L (96-108); Creatinine Clr Calc Pharmacy 76.5; Estimated Glomerular Filt Rate 51; Potassium 3.3 mmol/L (3.3-5.1); Sodium 137 mmol/L (135-145); Total Protein 6.8 g/dL (6.5-8.0)
[2025-07-14 17:01] VITALS: BP 122/76; PULSE 88; RESP 18; TEMP 36.6; O2SAT 98
[2025-07-14 17:04] VITALS: BP 122/76; PULSE 88; RESP 18; TEMP 36.6; O2SAT 98
== END 2025-07-14 17:04 | disposition home or self-care (01) ==
PROVIDERS: Registered Nurse Emergency; Emergency Provider Emergency Medicine Emergency Medical Services; PCP Internal Medicine
DX: K59.00 Constipation, unspecified (principal); Z79.899 Other long term (current) drug therapy
CPT/HCPCS: 36415; 80053; 85025; 99282; 99283

== ENCOUNTER → 2025-07-14 | Outpatient (BNV) | payer OTHER, SELFPAY | PROVIDERS: Emergency Provider Emergency Medicine Emergency Medical Services; PCP Internal Medicine; Visit Provider Radiology Diagnostic Radiology | DX: R10.30 Lower abdominal pain, unspecified (principal) | CPT/HCPCS: 74177 ==

== ENCOUNTER 2025-07-16 14:59 | Outpatient (AMB) | payer OTHER, SELFPAY ==
--- OUTSIDE RECORDS SUMMARY | 2024-11-15 05:00 | XMS_ITS ---
Author Organization [facility] Address [address] [place] [address] Care Team Providers Care Hosiery Mender Name Role Phone Luis Manuel Garcia MD Primary Care Provider Unava ilTu [place] Unavailable [phone] Encounters Encounter Location Date Provider Diagnosis [facility] [address] [place] [address] 11/15/2024 Tu Pierre Plan Of Treatment No Information Progress Notes * Mike BAIRDDOB:[birth year] (64 yo M)Acc No.[id number]:11/15/2024 Progress Note Patient: Mike JACOBO Provider: Magaly Pierre DPM :1960 A ge:64 Y S ex:Male Date:11/15/2024 Address:[address] [place] Pcp:Luis Manuel Garcia MD Subjective: * Chief [...] 0 11/15/2024 Generated for Ruthy wood/Garrison/Harvey on: 09/16/2024 05:59 PM EST
[2025-07-16 15:07] VITALS: BP 106/70; PULSE 96; RESP 16; TEMP 36.4; O2SAT 96; BMI 52.5
--- NOTE | 2025-07-16 15:07 | MHC.OFFWIV ---
Intake Vital Signs 07/16/25 15:07 Height 5 ft 1 in Weight 278 lb BMI 52.5 BP 106/70 Blood Pressure Location Lt brachial Position Sitting Respiration 16 Pulse 96 Pulse Source Pulse Oximeter Temp 97.5 F Temp Source Oral Pulse Oximetry (%) 96 Oxygen Delivery Method Room Air Intake Visit Reasons: EP pt has diarrhea from a saline enema Intake Note: Pt presents with diarrhea for 2-3 days after a mineral enema at [facility] on 07/14/25, c/o decreased appetite and diarrhea approx every 15 inutes, abdominal pain and cramping Patient Tobacco Use Status: Former Tobacco user Allergies No Known Allergies (No Known Allergies*) Allergy (Verified 07/16/25 15:19) Do you need a note to return to daycare/school/sports/work: No HPI HPI Comments History of Present Illness Details History of Present Illness - The patient is a 64 year old individual presenting with diarrhea. - The patient initially presented to the emergency room on Monday due to constipation, where a CT scan confirmed the patient was full of stool without any blockage. - Treatment in the ER included a mineral oil enema, and the patient was advised to take Milk of Magnesia at home. - Following the treatment, the patient developed severe diarrhea which has persisted for three days. - The patient reports bowel movements every 15 to 45 minutes and experiences some associated abdominal pain. - The patient denies vomiting but notes a loss of appetite, fatigue, and has not noticed any blood in the stool. - The patient has a history of diabetes mellitus and is concerned about blood sugar levels due to poor oral intake. - He denies weakness, weight loss, CP, SOB, abd pain, melena, or hematochezia. Physical Exam General: Cooperative, healthy appearing, comfortable, no acute distress and well developed Orientation: Patient oriented x3 Limitations: No limitations Head: Normal to inspection Ears: Hearing grossly normal bilaterally Nose: Normal external nose present Face and sinus: Normal facial exam Eyes: Appearance normal, both eyes and all related structures Neck: Normal visual inspection and Yes full ROM Respiratory: Normal respiratory effort and able to speak in complete sentences. Clear to auscultation bilaterally Cardiovascular: Regular rate and rhythm. Normal S1 and S2 GI: Normal to inspection. Soft to palpation and nontender. Audible bowel sounds present. Complains of diarrhea and occasional abdominal pain. Skin: No rashes or lesions noted Neuro: Patient oriented x3 Extremities: Normal to inspection Patient was informed and verbally consented to the use of an ambient scribe for clinic note documentation during this visit. [facility] Medical History Generalized muscle ache Acute respiratory disease Impacted cerumen, right ear Acute diarrhea Pain in both feet Calcaneal spur of right foot Achilles tendinitis Callus of foot Right hand pain Abdominal bloating Vertigo Calcaneal spur Colon cancer screening COVID-19 Pre-op examination Elevated LFTs Encounter for Medicare annual wellness exam Bowel obstruction Melena Knee pain, bilateral Gastroenteritis Healed wound Chronic idiopathic constipation Chronic idiopathic constipation Hospital discharge follow-up Knee osteoarthritis Obesity (BMI 30-39.9) Schizoaffective disorder Pure hypercholesterolemia Benign essential hypertension Chronic kidney disease (CKD), stage III (moderate) Type 2 diabetes mellitus with diabetic chronic kidney disease Morbid obesity Dyslipidemia 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 diabetes mellitus shelter (current) use of insulin Diabetic polyneuropathy associated with type 2 diabetes mellitus Schizo affective schizophrenia Diabetes type 2, uncontrolled Surgical History History of repair of congenital cleft palate Hx of circumcision Family History Father HTN (hypertension) Mother Diabetes Other Mental health problem Social History Household Members: None Housing: Apartment Are you a primary patient care technician instructor to a significant other at home: No Do you presently have visiting nurse or other home services: Yes Alcohol intake: former Patient Tobacco Use Status: Former Tobacco user Tobacco use type: Cigarette Cigarettes Per Day: 15 Years Smoked: 8 quit 30 years ago e-Cigarette/Vaping Use: Never Used Second Hand Smoke Exposure: No Substance Use Type: Prescription Drugs service: No Current occupational status: employed Current occupation: [employer] Cognitive needs: No Hearing needs: No Vision needs: Yes (glasses) Review of Systems Const All systems reviewed & are unremarkable except as noted in HPI and below Physical Exam Vital Signs: Last Vital Signs Temp 97.5 F 07/16/25 15:07 Pulse 96 07/16/25 15:07 Resp 16 07/16/25 15:07 BP 106/70 12/03/25 15:07 Pulse Ox 96 07/16/25 15:07 Oxygen Delivery Method Room Air 07/16/25 15:07 BMI result Body Mass Index 52.5 Assessment & Plan Assessment & Plan (1) Diarrhea: Code(s): R19.7 - Diarrhea, unspecified Qualifiers: Diarrhea type: unspecified type Qualified Code(s): R19.7 - Diarrhea, unspecified Plan Most likely diarrhea after using enema plan - The patient's diarrhea is a result of treatment for constipation received in the emergency room, including a mineral oil enema. - A prescription for loperamide (Imodium) will be sent to the pharmacy to help manage the diarrhea. - The patient was cautioned about the risk of rebound constipation with loperamide use. - Recommended following a BRAT diet, consisting of bananas, applesauce, rice, and toast, to help slow the diarrhea. - Advised to return for evaluation if symptoms of chest pain, shortness of breath, dizziness, weakness, or significant bleeding occur. - Advised to stay hydrated - follow up with PCP Coding Level of Care Code Est Pt Level 3 (06429) Diagnoses Diarrhea, unspecified type R19.7 Diarrhea type: unspecified type
--- OUTSIDE RECORDS SUMMARY | 2025-07-16 17:59 | XMS_ITS | Patient Health Record ---
Author Organization [facility] ayde ChristensenNikol[place] Address [address] [facility] [place] [address] Care Team Providers Care Supervisor Char House Name Role Phone Jose RENAE, Luis Manuel Primary Care Provider UnaTu Paul Unavailable [phone] Allergies No Known Allergies Results Component Value [...] Problem Acquired hammer toe of right foot (013059072864262 5) Other hammer toe(s) (acquired), right foot (M20.41) Active confirmed Problem Plantar fascial fibromatosis (62706951) Plantar fascial fibromatosis (M72.2) Active confirmed Problem Acquired hammer toe of left foot (843413734152036 3) Other hammer toe(s) (acquired), left foot (M20.42) Active confirmed Problem Type II diabetes mellitus without complication (283485379) Type 2 diabetes mellitus without complication (E11.9) Active confirmed Vital Signs Blood pressure diastolic 80 mm Hg 08/30/2024 Height 6ft in 08/30/2024 Blood pressure systolic 130 mm Hg 08/30/2024 Weight 270 lbs 08/30/2024 BMI 36.61 kg/m2 08/30/2024 Procedures Procedure Date Ordered Date Performed Result Body Sit e 04964-[id number] NAIL, 6 OR MORE 08/30/2024 N/A 41637-LVSP SKIN LESIONS, 2 TO 4 08/30/2024 N/A Encounters Encounter Location Date Provider Diagnosis [address] [address] 08/30/2024 Tu Pierre Pain in right toe(s) M79.674 ; Tinea unguium B35.1 ; Pain in left toe(s) M79.675 ; Type 2 diabetes mellitus without complication E11.9 ; Other hammer toe(s) (acquired), right foot M20.41 and Other hammer toe(s) (acquired), left foot M20.42 [facility] [address] 09/03/2024 Tu [facility] [address] 10/01/2024 Tu Pierre [address] [address] 12/06/2024 Tu Pierre Plantar fascial fibromatosis M72.2 [...] X ray : Foot, right 3V 03/08/2024 14979-[id number] NAIL, 6 OR MORE 03/08/2024 95807-RRAFESM NAIL, 6 OR MORE 06/21/2024 40125-[id number] NAIL, 6 OR MORE 08/30/2024 35986-Vqbokbjx Plate 03/08/2024 09211-HGHS SKIN LESIONS, 2 TO 4 03/08/20 24 03981-BPDI SKIN LESIONS, 2 TO 4 08/30/19 28790-RMBD SKIN LESIONS, 2 TO 4 06/21/20 24 Insurance Providers Payer Name Payer Address Payer Phone Subscriber Number Group Number Insured Name Patient Relationship to Insured Coverage Start Date Coverage End Date [facility] [employer] Claims [address] [place] [id number] Mike Cornejo Self - patient is the insured Medical (General) History Medical History History ICD Code Diabetic Surgical History Surgery Date(Month/Year)
== END 2025-07-16 16:13 | disposition home or self-care (01) ==
PROVIDERS: PCP Internal Medicine; Visit Provider Physician Assistant Medical
DX: R19.7 Diarrhea, unspecified (principal)

== ENCOUNTER → 2025-07-16 14:59 | Outpatient (BNVA) | payer OTHER, SELFPAY | PROVIDERS: PCP Internal Medicine; Visit Provider Physician Assistant Medical | DX: F50.89 Other specified eating disorder (principal); R19.7 Diarrhea, unspecified; Z87.891 Personal history of nicotine dependence | CPT/HCPCS: 99212 ==

== ENCOUNTER 2025-07-18 10:47 | Outpatient (AMB) | payer OTHER, SELFPAY ==
[2025-07-18 11:02] VITALS: BP 90/66; PULSE 90; TEMP 36.3; O2SAT 97; BMI 35.9
--- NOTE | 2025-07-18 11:02 | AM.OFFWIN_ITS ---
Intake Vital Signs 07/18/25 11:02 Height 6 ft 1 in Weight 272 lb BMI 35.9 BP 90/66 Blood Pressure Location Rt brachial Position Sitting Pulse 90 Pulse Source Pulse Oximeter Temp 97.4 F Temp Source Oral Pulse Oximetry (%) 97 Oxygen Delivery Method Room Air Intake Visit Reasons: EP diarrhea Intake Note: pt presents with non resolving diarrhea, stomach pains and stomach cramps Patient Tobacco Use Status: Former Tobacco user Allergies No Known Allergies (No Known Allergies*) Allergy (Verified 07/18/25 11:06) Do you need a note to return to daycare/school/sports/work: Yes HPI EP diarrhea HPI Details - The patient is a 64 year old individua l presenting with diarrhea. - The patient initially presented to the emergency room on Monday due to constipation, where a CT scan confirmed the patient was full of stool without any blockage. - Treatment in the ER included a mineral oil enema, and the patient was advised to take Milk of Magnesia at home. - Following the treatment, the patient d eveloped severe diarrhea which has persisted for three days. - The patient reports bowel movements ev analisa 10-15 minutes and experiences some associated abdominal pain. He states he is waking up all night with diarrhea episodes as well. - The patient denies vomiting but notes a loss of appetite, fatigue, and has not noticed any blood in the stool. - The patient has a history of diabetes mellitus and is concerned about blood sugar levels due to poor oral intake. - He denies weakness, weight loss, CP, S OB, abd pain, melena, or hematochezia. - He does state he feels dehydrated and has only been taking sips of water. - Took previously prescribed Loperamide however continues to have diarrhea [facility] Medical History Generalized muscle ache Acute respiratory disease Impacted cerumen, right ear Acute diarrhea Pain in both feet Calcaneal spur of right foot Achilles tendinitis Callus of foot Right hand pain Abdominal bloating Vertigo Calcaneal spur Colon cancer screening COVID-19 Pre-op examination Elevated LFTs Encounter for Medicare annual wellness exam Bowel obstruction Melena Knee pain, bilateral Gastroenteritis Healed wound Chronic idiopathic constipation Chronic idiopathic constipation Hospital discharge follow-up Knee osteoarthritis Obesity (BMI 30-39.9) Schizoaffective disorder Pure hypercholesterolemia Benign essential hypertension Chronic kidney disease (CKD), stage III (moderate) Type 2 diabetes mellitus with diabetic chronic kidney disease Morbid obesity Dyslipidemia 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 Diabetic polyneuropathy associated with type 2 diabetes mellitus Schizo affective schizophrenia Diabetes type 2, uncontrolled Surgical History History of repair of congenital cleft palate Hx of circumcision Family History Father HTN (hypertension) Mother Diabetes Other Mental health problem Social History Household Members: None Housing: Apartment Are you a primary palliative care physician to a significant other at home: No Do you presently have visiting nurse or other home services: Yes Alcohol intake: former Patient Tobacco Use Status: Former Tobacco user Tobacco use type: Cigarette Cigarettes Per Day: 15 Years Smoked: 8 quit 30 years ago e-Cigarette/Vaping Use: Never Used Second Hand Smoke Exposure: No Substance Use Type: Prescription Drugs service: No Current occupational status: employed Current occupation: [employer] Cognitive needs: No Hearing needs: No Vision needs: Yes (glasses) Review of Systems Const All systems reviewed & are unremarkable except as noted in HPI and below Physical Exam Vital Signs: Last Vital Signs Temp 97.4 F 07/18/25 11:02 Pulse 90 07/18/25 11:02 BP 90/66 07/18/25 11:02 Pulse Ox 97 07/18/25 11:02 Oxygen Delivery Method Room Air 07/18/25 11:02 BMI result Body Mass Index 35.9 Const General: cooperative and no acute distress HEENT Head: Yes normal to inspection Ears: hearing grossly normal bilaterally Mouth: Abnormal oral and palatal mucosa present (dry) Neck Neck: Yes no lymphadenopathy Resp Effort & Inspection: normal respiratory effort Auscultation: clear to auscultation bilaterally Cardio Rate: regular rate Rhythm: regular rhythm GI Inspection: Yes obesity Palpation (GI): Soft to palpation (nontender) Skin Other: tenting on dorsum of hand General skin exam: no rashes or lesions noted Extrem General: Yes no clubbing, cyanosis or edema Psych Appearance: grossly normal Mental Status: mental status grossly normal Speech and movement: Normal speech and movement present Assessment & Plan Assessment & Plan (1) Diarrhea: Code(s): R19.7 - Diarrhea, unspecified Qualifiers: Diarrhea type: unspecified type Qualified Code(s): R19.7 - Diarrhea, unspecified Plan: Patient continues to have frequent diarrhea, reporting episodes every 10 minutes or so since treatment for constipation earlier this week. He has some signs of dehydration and he would likely benefit from some IVF replacement, which he is open to. He has had poor appetite and has been tolerating only sips of water. I called morelia Ndiaye at [facility], where patient is going following d/c from walk in clinic. All questions were answered and patient verbalizes understanding and agrees to plan. Coding Level of Care Code Est Pt Level 4 (39954) Diagnoses Diarrhea, unspecified type R19.7 Diarrhea type: unspecified type
== END 2025-07-18 11:42 | disposition home or self-care (01) ==
PROVIDERS: PCP Internal Medicine; Visit Provider Nurse Practitioner Family
DX: R19.7 Diarrhea, unspecified (principal)

== ENCOUNTER 2025-07-18 12:01 | Emergency (ER) | payer OTHER, SELFPAY ==
--- NOTE | ~2025-07-18 | XR_ITS ---
CLINICAL HISTORY: AP Single view of the abdomen. COMPARISON: XR abdomen dated 06/29/25 at 17:06 EST FINDINGS: Normal bowel distention. Pelvic phleboliths present. No pneumoperitoneum identified. Fkvs-zu-mfrrjixo colonic stool burden. Marginal osteophytes present throughout the lower thoracic and lumbar spine. No acute fracture. IMPRESSION: 1. Nonspecific nonobstructive bowel gas pattern. This document has been electronically signed by: Aaron Frederick MD on 07/18/2025 18:36:53
[2025-07-18 12:15] VITALS: BP 146/85; PULSE 87; RESP 18; TEMP 36.3; O2SAT 97; BMI 35.4
--- NOTE | 2025-07-18 12:16 | ED.GENADULT ---
HPI - General Adult General Chief complaint: Nausea/Vomiting/Diarrhea Stated complaint: Dehydration Time Seen by Provider: 07/18/25 17:01 Source: patient Mode of arrival: ambulatory Limitations: no limitations History of Present Illness ED Provider: HPI narrative: 64-year-old male with multiple medical problems, was seen twice in the road for constipation had MiraLax and then 5 days ago fluid enema after that he started moving his bowels and now he states he has diarrhea and had to leave his work because he had frequent bowel movements. Passing gas no fevers or chills, he is not having nausea or vomiting, no sick contacts. Related Data Home Medications ?Medication ?Instructions ?Recorded ?Confirmed benztropine 0.5 mg tablet 0.5 mg PO BID 04/29/22 06/07/25 clozapine 100 mg tablet 100 mg PO TID 05/12/22 06/07/25 Previous Rx's ?Medication ?Instructions ?Recorded blood-glucose meter (FreeStyle #1 ea 03/27/23 Lite Meter kit) bisacodyl 5 mg tablet,delayed 10 mg (2 x 5 mg) PO BID #90 tabs 01/02/24 release Held on 01/11/24. 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 #1 ea 10/09/24 (FreeStyle Jody 3 [place]) blood-glucose sensor (FreeStyle #2 ea 01/16/25 Jody 3 Plus Sensor device) linaclotide 290 mcg capsule 290 mcg PO QAM #30 caps 01/23/25 (Linzess) magnesium hydroxide 400 mg/5 mL 20 ml PO BEDTIME PRN constipation 01/23/25 oral suspension (Milk of Magnesia) #3,780 mL simethicone 180 mg capsule 180 mg PO TID #90 caps 01/23/25 pen needle, diabetic 29 gauge x #100 ea 01/27/25 1/2 methylcellulose (laxative) 500 mg 1,000 mg (2 x 500 mg) PO TID #180 01/30/25 tablet (Fiber Therapy tabs (methylcellulose)) metformin 500 mg tablet 1,000 mg (2 x 500 mg) PO BID 90 01/31/25 days #360 tabs Humalog KwikPen Insulin 100 12 unit (0.12 mL) subcut DAILY 30 02/06/25 unit/mL subcutaneous (insulin days #6 mL lispro) Tresiba FlexTouch U-200 200 58 unit (0.29 mL) subcut DAILY 90 02/20/25 unit/mL (3 mL) subcutaneous pen days #27 mL (insulin degludec) sildenafil 50 mg tablet 50 mg PO DAILY PRN sexual activity 02/21/25 #30 tabs cholecalciferol (vitamin D3) 25 25 mcg PO DAILY #90 caps 03/11/25 mcg (1,000 unit) capsule metoclopramide HCl 10 mg tablet 10 mg PO TID #90 tabs 03/12/25 ibuprofen 800 mg tablet 800 mg PO Q8H PRN for pain 30 days 03/17/25 #90 tabs sennosides 8.6 mg capsule (senna) 8.6 mg PO BEDTIME #14 caps 04/28/25 blood sugar diagnostic (FreeStyle #100 ea 04/29/25 Lite Strips) gabapentin 300 mg capsule 300 mg PO BEDTIME 90 days #90 caps 05/01/25 furosemide 20 mg tablet 20 mg PO DAILY #90 tabs 05/06/25 empagliflozin 25 mg tablet 25 mg PO QAM #30 tabs 05/21/25 (Jardiance) tadalafil 5 mg tablet 5 mg PO DAILY 90 days #90 tabs 05/22/25 tamsulosin 0.4 mg capsule (Flomax) 0.4 mg PO BEDTIME 90 days #90 tabs 05/22/25 atorvastatin 10 mg tablet 10 mg PO DAILY #90 tabs 06/06/25 docusate sodium 100 mg capsule 100 mg PO BID #20 caps 06/29/25 (Colace) acetaminophen 500 mg tablet 500 mg PO Q6-8H PRN pain #30 tabs 07/17/25 Allergies Allergy/AdvReac Type Severity Reaction Status Date / Time No Known Allergies (No Known Allergy Verified 07/18/25 12:18 Allergies*) Review of Systems Constitutional: Constitutional: Reports as per [facility] Past Medical History Medical History Generalized muscle ache Acute respiratory disease Impacted cerumen, right ear Acute diarrhea Pain in both feet Calcaneal spur of right foot Achilles tendinitis Callus of foot Right hand pain Abdominal bloating Vertigo Calcaneal spur Colon cancer screening COVID-19 Pre-op examination Elevated LFTs Encounter for Medicare annual wellness exam Bowel obstruction Melena Knee pain, bilateral Gastroenteritis Healed wound Chronic idiopathic constipation Chronic idiopathic constipation Hospital discharge follow-up Knee osteoarthritis Obesity (BMI 30-39.9) Schizoaffective disorder Pure hypercholesterolemia Benign essential hypertension Chronic kidney disease (CKD), stage III (moderate) Type 2 diabetes mellitus with diabetic chronic kidney disease Morbid obesity Dyslipidemia 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 diabetes mellitus senior living (current) use of insulin Diabetic polyneuropathy associated with type 2 diabetes mellitus Schizo affective schizophrenia Diabetes type 2, uncontrolled Surgical History History of repair of congenital cleft palate Hx of circumcision Family History Family History Father HTN (hypertension) Mother Diabetes Other Mental health problem Social History Social History Household Members: None Housing: Apartment Are you a primary home visit field care manager to a significant other at home: No Do you presently have visiting nurse or other home services: Yes Alcohol intake: former Patient Tobacco Use Status: Former Tobacco user Tobacco use type: Cigarette Cigarettes Per Day: 15 Years Smoked: 8 quit 30 years ago e-Cigarette/Vaping Use: Never Used Second Hand Smoke Exposure: No Substance Use Type: Prescription Drugs Advance Directives: No Advance Directives Information Provided: No Do you have a plan to hurt others: No Plan service: No Current occupational status: employed Current occupation: [employer] Cognitive needs: No Hearing needs: No Vision needs: Yes (glasses) Physical Exam ED Exam Exam: ?General: ??looks age appropriate ?No scleral icterus, dry oral mucosa Neck: Supple, no LAD ?CV: RRR, no obvious murmurs appreciated ?Resp: ?No wheezing rales rhonchi no stridor moving air well Abd: ?Bowel sounds are present, no tenderness no rebound no rigidity MSK: FROM, strength 5/5 all extremities Skin: Warm, dry, intact, ?Neuro: ?Alert and oriented x3, moving upper and lower extremities symmetrically, no obvious facial asymmetry noted, cranial nerves 2-12 intact Vital Signs: Vital Signs - 24 hr 07/18/25 12:15 Temperature 97.3 F Pulse Rate 87 Respiratory Rate 18 Blood Pressure 146/85 H Pulse Oximetry 97 Oxygen Delivery Method Room Air BMI result Body Mass Index 35.4 Course Course Course Narrative: Rapid medical examination performed in triage by Jaqui Choi PA-C: Patient is a 64 year old assigned male at presenting to the emergency department with dehydration after using medication to take care of his constipation. Detailed physical exam and review of systems are deferred to the general house worker. EKG, labs ordered. Patient placed back in the waiting room pending room availability and results. Medical Decision Making Medical Decision Making [facility] Narrative: 5:12 PM 07/18/2025 (Dr. Yanick Russo): Initially reported constipation was seen here twice for that and now having loose stools, benign abdominal exam does not require additional imaging such as CT abdomen and pelvis flow elevation that SBO, we will obtain KUB we will give IV fluids see my discharge instructions Differential Diagnosis Differential Diagnoses: The differential diagnosis associated with the presentation includes (Diarrhea, overflow incontinence, SBO, volvulus, dehydration) Admission/Observation Consideration of admission/observation: Escalation of care including admission/observation considered Lab Data [facility] Lab Attestation statement: I reviewed the patient's lab results. 07/18/25 12:35 07/18/25 12:35 Labs: Lab Results 07/18/25 Range/Units 12:35 WBC 8.1 (4.8-10.8) X10*3/uL RBC 5.12 (4.60-5.80) X10*6/uL Hgb 14.9 (14.0-18.0) g/dl Hct 42.7 (42.0-52.0) % MCV 83.4 (80.0-98.0) fL MCH 29.1 (27.0-33.0) pg MCHC 34.9 (31.0-36.0) g/dl RDW 13.1 (11.0-16.0) % Plt Count 143 L (160-400) X10*3/uL MPV 9.4 (9.4-12.4) fL Immature Gran % (Auto) 1.2 H (0.0-0.4) % Neut % (Auto) 71.4 (45-73) % Lymph % (Auto) 18.1 L (20-40) % [place] % (Auto) 9.2 (2-11) % Eos % (Auto) 0.0 (0-4) % Baso % (Auto) 0.1 (0-2) % Lymph # (Auto) 1.5 (1.2-4.9) X10*3/uL [place] # (Auto) 0.7 (0.1-1.2) X10*3/uL Eos # (Auto) 0.0 (0.0-0.4) X10*3/uL Baso # (Auto) 0.0 (0.0-0.2) X10*3/uL Abs Immat Gran (auto) 0.10 H (0.00-0.03) X10*3/uL Absolute Neuts (auto) 5.8 (2.0-8.3) x10*3/uL Absolute Nucleated RBC 0.000 (0.0-0.012) X10*3/uL Nucleated RBC % (auto) 0.0 (0.0-0.2) /100WBC Sodium 140 (135-145) mmol/L Potassium 3.9 (3.3-5.1) mmol/L Chloride 111 H (96-108) mmol/L Carbon Dioxide 21 L (22-29) mmol/L Anion Gap 12 (12-20) BUN 18 H (9-16) mg/dL Creatinine 1.04 (0.5-1.4) mg/dL Estim Creat Clear Calc 100.6 Estimated GFR > 60 Random Glucose 114 (60-115) mg/dL Calcium 8.9 (8.4-10.2) mg/dL Magnesium 2.0 (1.6-2.6) mg/dL Total Bilirubin 0.6 (0.0-1.0) mg/dL AST 82 H (5-37) U/L ALT 118 H (0-40) U/L Alkaline Phosphatase 189 H (39-117) U/L Total Protein 6.8 (6.5-8.0) g/dL Albumin 4.2 (3.5-5.0) g/dL Independent Interpretation I performed an independent interpretation of an: Plain X-Ray (No free air, no obstructive patterns) Radiology Impression Discussion of test interpretation with radiology: I have reviewed the radiologist's reading. Tests considered The following testing was considered but not selected: CT abdomen and pelvis with IV contrast Social Determinants Patient?s care significantly limited by Social Determinants of Health including: Problems related to primary support group Discharge Plan Discharge Clinical Impression: Frequent loose stools, Dehydration Patient Disposition: Home, Self-Care Additional Instructions: If you are feeling dehydrated drink fluids including water and Gatorade, as long as your keep her fluids down you do not need IV medication, I did provide you with IV fluids in the ER however there was no evidence of significant dehydration based on your blood work, Do not use MiraLax as you are having loose stools, your loose stools maybe due to the fact that you were constipated for a long time and now in the medication is working and your bowels are moving now Prescriptions: No Action (DME) blood-glucose meter [FreeStyle Lite Meter] Kit See Rx Instructions .Route Qty: 1 5RF Rx Instructions: Tests 4 X/day bisacodyl 5 mg tablet,delayed release (DR/EC) 10 mg PO BID Qty: 90 0RF (DME) lancets [FreeStyle Lancets] 28 gauge misc See Rx Instructions .Route Qty: 100 4RF Rx Instructions: Tests 5x/day (DME) blood-glucose meter [FreeStyle Lite Meter] Kit See Rx Instructions .ROUTE .MEDSUPPLY Qty: 1 0RF Rx Instructions: As directed (DME) FreeStyle Jody 3 [place] Misc See Rx Instructions .ROUTE .MEDSUPPLY Qty: 1 0RF Rx Instructions: As directed for use with freestyle jody 3+ sensor (DME) pen needle, diabetic 29 gauge x 1/2 needle See Rx Instructions .ROUTE DAILY Qty: 100 3RF Rx Instructions: As directed daily Fiber Therapy (m-cellulose) 500 mg tablet 1,000 mg PO TID Qty: 180 6RF metformin 500 mg tablet 1,000 mg PO BID 90 Days Qty: 360 1RF Tresiba FlexTouch U-200 200 unit/mL (3 mL) insulin pen 58 unit subcut DAILY 90 Days Qty: 27 3RF cholecalciferol (vitamin D3) 25 mcg (1,000 unit) capsule 25 mcg PO DAILY Qty: 90 4RF metoclopramide HCl 10 mg tablet 10 mg PO TID Qty: 90 0RF ibuprofen 800 mg tablet 800 mg PO Q8H PRN (Reason: for pain) 30 Days Qty: 90 0RF Rx Instructions: take with food (DME) FreeStyle Lite Strips Strip See Rx Instructions .Route Qty: 100 5RF Rx Instructions: Tests 5X/day gabapentin 300 mg capsule 300 mg PO BEDTIME 90 Days Qty: 90 1RF furosemide 20 mg tablet 20 mg PO DAILY Qty: 90 1RF Jardiance 25 mg tablet 25 mg PO QAM Qty: 30 3RF atorvastatin 10 mg tablet 10 mg PO DAILY Qty: 90 0RF acetaminophen 500 mg tablet 500 mg PO Q6-8H PRN (Reason: pain) Qty: 30 1RF Rx Instructions: SHOULD NOT EXCEED TOTAL DAILY DOSE OF 2000 mg/day - cause affect liver if high dose is taken regularly benztropine 0.5 mg tablet 0.5 mg PO BID docusate sodium [Colace] 100 mg capsule 100 mg PO BID Qty: 20 0RF senna 8.6 mg capsule 8.6 mg PO BEDTIME Qty: 14 0RF clozapine 100 mg tablet 100 mg PO TID sildenafil 50 mg tablet 50 mg PO DAILY PRN (Reason: sexual activity) Qty: 30 0RF Rx Instructions: administer 30 minutes to 4 hours before activity Linzess 290 mcg capsule 290 mcg PO QAM Qty: 30 6RF magnesium hydroxide [Milk of Magnesia] 400 mg/5 mL suspension 20 ml PO BEDTIME PRN (Reason: constipation) Qty: 3780 6RF simethicone 180 mg capsule 180 mg PO TID Qty: 90 6RF (DME) FreeStyle Jody 3 Plus Sensor Device See Rx Instructions .ROUTE .MEDSUPPLY Qty: 2 11RF Rx Instructions: every 15 days for continuous use insulin lispro [Humalog KwikPen Insulin] 100 unit/mL insulin pen 12 unit subcut DAILY 30 Days Qty: 6 6RF Rx Instructions: with the largest meal of the day tamsulosin [Flomax] 0.4 mg capsule 0.4 mg PO BEDTIME 90 Days Qty: 90 1RF tadalafil 5 mg tablet 5 mg PO DAILY 90 Days Qty: 90 0RF Referrals: Luis Manuel Garcia MD [Primary Care Provider, Internal Medicine] - 1 week Clinical Impression: Frequent loose stools; Dehydration Print Language: Faroese
--- NOTE | 2025-07-18 12:17 | ECG_ITS ---
Test Reason : dehydration Blood Pressure : */* mmHG Vent. Rate : 84 BPM Atrial Rate : 84 BPM P-R Int : 142 ms QRS Dur : 110 ms QT Int : 408 ms P-R-T Axes : 20 -33 6 degrees QTcB Int : 482 ms Normal sinus rhythm Left axis deviation Cannot rule out Anterior infarct (cited on or before 26-Dec-2022) Abnormal ECG When compared with ECG of 13-Jul-2025 19:51, No significant changes seen Referred By: Jaqui Choi Electronically Signed By: NEVILLE SOTO
[2025-07-18 12:39] LABS: MANUAL DIFF FLAG NO
[2025-07-18 12:44] LABS: Hematocrit 42.7 % (42.0-52.0); Hemoglobin 14.9 g/dl (14.0-18.0); Imm Gran Abs Auto 0.10 X10*3/uL (0.00-0.03); Imm Gran Pct Auto 1.2 % (0.0-0.4); Lymphocytes Absolute Auto 1.5 X10*3/uL (1.2-4.9); Mean Corpuscular HGB Conc 34.9 g/dl (31.0-36.0); Mean Corpuscular Hemoglobin 29.1 pg (27.0-33.0); Mean Corpuscular Volume 83.4 fL (80.0-98.0); NRBC Abs Auto 0.000 X10*3/uL (0.0-0.012); NRBC Pct Auto 0.0 /100WBC (0.0-0.2); Platelet Count 143 X10*3/uL (160-400); Red Blood Count 5.12 X10*6/uL (4.60-5.80); White Blood Count 8.1 X10*3/uL (4.8-10.8)
[2025-07-18 12:58] LABS: Alanine Aminotransferase 118 U/L (0-40); Albumin Level 4.2 g/dL (3.5-5.0); Alkaline Phosphatase 189 U/L (39-117); Anion Gap 12 (12-20); Aspartate Amino Transferase 82 U/L (5-37); Blood Urea Nitrogen 18 mg/dL (9-16); Calcium 8.9 mg/dL (8.4-10.2); Carbon Dioxide 21 mmol/L (22-29); Chloride 111 mmol/L (96-108); Creatinine Clr Calc Pharmacy 100.6; Estimated Glomerular Filt Rate > 60; Magnesium 2.0 mg/dL (1.6-2.6); Potassium 3.9 mmol/L (3.3-5.1); Sodium 140 mmol/L (135-145); Total Protein 6.8 g/dL (6.5-8.0)
[2025-07-18 19:30] VITALS: BP 115/76; PULSE 79; RESP 18; TEMP 36.4; O2SAT 98
== END 2025-07-18 19:30 | disposition home or self-care (01) ==
PROVIDERS: Physician Assistant Medical; Emergency Provider Emergency Medicine; PCP Internal Medicine
DX: R11.2 Nausea with vomiting, unspecified (principal); E86.0 Dehydration; R19.7 Diarrhea, unspecified; R94.31 Abnormal electrocardiogram [ECG] [EKG]; Z79.899 Other long term (current) drug therapy
CPT/HCPCS: 36415; 74018; 80053; 83735; 85025; 93005; 99212; 99285

== ENCOUNTER → 2025-07-18 12:17 | Outpatient (BNV) | payer OTHER, SELFPAY | PROVIDERS: Emergency Provider Emergency Medicine; PCP Internal Medicine; Visit Provider Internal Medicine | DX: R94.31 Abnormal electrocardiogram [ECG] [EKG] (principal); E86.0 Dehydration | CPT/HCPCS: 93010 ==

== ENCOUNTER → 2025-07-18 17:09 | Outpatient (BNV) | payer OTHER, SELFPAY | PROVIDERS: Emergency Provider Emergency Medicine; PCP Internal Medicine; Visit Provider Radiology Diagnostic Radiology | DX: R10.9 Unspecified abdominal pain (principal) | CPT/HCPCS: 74018 ==

== ENCOUNTER 2025-07-26 15:20 | Emergency (ER) | payer OTHER, SELFPAY ==
--- OUTSIDE RECORDS SUMMARY | 2024-11-15 05:00 | XMS_ITS ---
Author Organization [facility] Address [address] [place] [address] Care Team Providers Care Industrial Maintenance Repairer Name Role Phone Luis Manuel Garcia MD Primary Care Provider Unava ilTu [place] Unavailable [phone] Encounters Encounter Location Date Provider Diagnosis [facility] [address] [place] [address] 11/15/2024 Tu Pierre Plan Of Treatment No Information Progress Notes * Mike BAIRDDOB:[birth year] (64 yo M)Acc No.[id number]:11/15/2024 Progress Note Patient: Mike JACOBO Provider: Magaly Pierer DPM :1960 A ge:64 Y S ex:Male Date:11/15/2024 Address:[address] [place] Pcp:Luis Manuel Garcia MD Subjective: * Chief [...] 0 11/15/2024 Generated for Ruthy wood/Garrison/Harvey on: 09/26/2024 04:43 PM EST
--- NOTE | ~2025-07-26 | XR_ITS ---
CLINICAL HISTORY: URI symptoms 1 view chest x-ray. Comparison: 02/18/2025 Findings: No consolidation or effusion. Cardiac and mediastinal contours appear stable. Bones unremarkable. Impression: 1. No acute pulmonary disease. This document has been electronically signed by: Ajay Tompkins MD on 07/26/2025 16:24:50
[2025-07-26 15:29] VITALS: BP 144/84; PULSE 94; O2SAT 97
[2025-07-26 15:42] VITALS: BP 110/65; PULSE 99; RESP 20; TEMP 36.8; O2SAT 95
[2025-07-26 15:49] VITALS: BMI 37.8
[2025-07-26 15:55] VITALS: BP 110/65; PULSE 99; RESP 20; TEMP 36.8; O2SAT 95; BMI 37.8
[2025-07-26 15:56] LABS: MANUAL DIFF FLAG NO
[2025-07-26 16:12] LABS: Alanine Aminotransferase 89 U/L (0-40); Albumin Level 4.0 g/dL (3.5-5.0); Alkaline Phosphatase 217 U/L (39-117); Anion Gap 16 (12-20); Aspartate Amino Transferase 45 U/L (5-37); Blood Urea Nitrogen 22 mg/dL (9-16); Calcium 9.1 mg/dL (8.4-10.2); Carbon Dioxide 20 mmol/L (22-29); Chloride 104 mmol/L (96-108); Creatinine Clr Calc Pharmacy 90.2; Estimated Glomerular Filt Rate > 60; Potassium 3.8 mmol/L (3.3-5.1); Sodium 136 mmol/L (135-145); Total Protein 6.9 g/dL (6.5-8.0)
[2025-07-26 16:16] LABS: Hematocrit 39.8 % (42.0-52.0); Hemoglobin 13.8 g/dl (14.0-18.0); Imm Gran Abs Auto 0.06 X10*3/uL (0.00-0.03); Imm Gran Pct Auto 0.8 % (0.0-0.4); Lymphocytes Absolute Auto 0.7 X10*3/uL (1.2-4.9); Mean Corpuscular HGB Conc 34.7 g/dl (31.0-36.0); Mean Corpuscular Hemoglobin 28.9 pg (27.0-33.0); Mean Corpuscular Volume 83.4 fL (80.0-98.0); NRBC Abs Auto 0.020 X10*3/uL (0.0-0.012); NRBC Pct Auto 0.3 /100WBC (0.0-0.2); Platelet Count 109 X10*3/uL (160-400); Red Blood Count 4.77 X10*6/uL (4.60-5.80); White Blood Count 7.5 X10*3/uL (4.8-10.8)
[2025-07-26 16:41] LABS: Resp Syncy Virus RNA Qual PCR NEGATIVE (Negative); SARS COV2 PCR INHOUSE POSITIVE (Negative)
--- OUTSIDE RECORDS SUMMARY | 2025-07-26 16:43 | XMS_ITS | Patient Health Record ---
[facility] Organization [facility] [place] Address [address] [place] [address] Care Team Providers Care Portfolio Strategist Name Role Phone Jose RENAE, Luis Manuel Primary Care Provider UnaTu Paul Unavailable [phone] Allergies No Known Allergies Reason For Referral [...] Problem Acquired hammer toe of right foot ([id number] 5) Other hammer toe(s) (acquired), right foot (M20.41) Active confirmed Problem Plantar fascial fibromatosis (23339305) Plantar fascial fibromatosis (M72.2) Active confirmed Problem Acquired hammer toe of left foot ([id number] 3) Other hammer toe(s) (acquired), left foot (M20.42) Active confirmed Problem Type II diabetes mellitus without complication (422003530) Type 2 diabetes mellitus without complication (E11.9) Active confirmed Vital Signs Blood pressure diastolic 80 mm Hg 08/30/2024 Height 6ft in 08/30/2024 Blood pressure systolic 130 mm Hg 08/30/2024 Weight 270 lbs 08/30/2024 BMI 36.61 kg/m2 08/30/2024 Procedures Procedure Date Ordered Date Performed Result Body Sit e 87964-[id number] NAIL, 6 OR MORE 08/30/2024 N/A 08897-TCMA SKIN LESIONS, 2 TO 4 08/30/2024 N/A Encounters Encounter Location Date [facility] [address] 08/30/2024 Tu Pierre Pain in right toe(s) M79.674 ; Tinea unguium B35.1 ; Pain in left toe(s) M79.675 ; Type 2 diabetes mellitus without complication E11.9 ; Other hammer toe(s) (acquired), right foot M20.41 and Other hammer toe(s) (acquired), left foot M20.[address] [address] 09/03/2024 [facility] [address] 10/01/2024 [facility] [address] 12/06/2024 Tu Pierre Plantar fascial fibromatosis M72.2 [...] X ray : Foot, right 3V 03/08/2024 97822-[id number] NAIL, 6 OR MORE 03/08/2024 48236-[id number] NAIL, 6 OR MORE 06/21/2024 46164-[id number] NAIL, 6 OR MORE 08/30/2024 32468-Mhvapjcy Plate 03/08/2024 69599-EHOZ SKIN LESIONS, 2 TO 4 03/08/20 24 81443-EHXX SKIN LESIONS, 2 TO 4 08/30/19 25 52516-YRDI SKIN LESIONS, 2 TO 4 06/21/20 24 Insurance Providers Payer Name Payer Address Payer Phone Subscriber Number Group Number Insured Name Patient Relationship to Insured Coverage Start Date Coverage End Date [facility] Claims [address] [place] [id number] Mike Cornejo Self - patient is the insured Medical (General) History Medical History History ICD Code Diabetic Surgical History Surgery Date(Month/Year)
[2025-07-26 16:47] VITALS: BP 119/55; PULSE 90; RESP 16; TEMP 36.6; O2SAT 97
[2025-07-26 16:57] LABS: Appearance Urine Clear; Glucose Urine UA >=1000 mg/dL (Negative); PH 5.5 (5.0-9.0); Specific Gravity - Urine 1.025 (1.005-1.025); UMIC TRIGGER UACC YES
--- NOTE | 2025-07-26 17:29 | ED.GENADULT ---
HPI - General Adult General Chief complaint: Fall Stated complaint: MULTI FALLS,INCR WEAK X12HRS,A&O PER EMS Time Seen by Provider: 07/26/25 15:30 Source: patient, EMS, RN notes reviewed and old records reviewed Mode of arrival: EMS Limitations: no limitations History of Present Illness ED Provider: DANNA Mcpherson HPI narrative: 64-year-old male with medical history of T2DM on insulin, schizoaffective disorder, HLD, CKD stage 3, HTN, HLD, osteoarthritis, vertigo, presents to the ED by EMS due to productive cough, SOB, fatigue, and weakness. Patient states he started with a productive cough 2 days ago that has progressed into fatigue, an episode of SOB while carrying in groceries, and B/L lower extremity weakness causing 2 falls today. Patient states when he was bringing in heavy shopping bags, he felt weak and and his body gave out causing him to fall backwards onto his buttocks and L side of his body. Patient states he did not fall hard as he was able to grab the stair railing before falling and used it to help lower himself to the ground. Patient states he was able to get up and went back to his car to get the rest of his shopping, when he fell in his house due to weakness and fatigue and was unable to get himself up off of the floor. Patient states he was on the floor for about 10 minutes before ambulance came. Patient denies headstrike, LOC, headache or anticoagulation. Patient denies chest pain, abdominal pain, nausea, vomiting, diarrhea, headache, visual changes, urinary symptoms. MD complaint: productive cough, general malaise, B/L LE weakness Related Data Home Medications ?Medication ?Instructions ?Recorded ?Confirmed benztropine 0.5 mg tablet 0.5 mg PO BID 04/29/22 07/27/25 clozapine 100 mg tablet 100 mg PO DAILY@0900 05/12/22 07/27/25 acetaminophen 500 mg tablet 500 mg PO Q6-8H PRN Pain 07/27/25 07/27/25 atorvastatin 10 mg tablet 10 mg PO BEDTIME 07/27/25 07/27/25 clozapine 100 mg tablet 300 mg PO BEDTIME 07/27/25 07/27/25 hydroxyzine pamoate 50 mg capsule 100 mg PO DAILY PRN Anxiety 07/27/25 07/27/25 insulin lispro 100 unit/mL 12 unit subcut DAILY@1700 07/27/25 07/27/25 subcutaneous pen (Humalog KwikPen (U-100) Insulin) metoclopramide HCl 10 mg tablet 10 mg PO BID 07/27/25 07/27/25 tamsulosin 0.4 mg capsule 0.4 mg PO BEDTIME 07/27/25 07/27/25 Previous Rx's ?Medication ?Instructions ?Recorded blood-glucose meter (FreeStyle #1 ea 03/27/23 Lite Meter kit) lancets 28 gauge (FreeStyle #100 ea 05/08/24 Lancets) blood-glucose meter (FreeStyle #1 ea 07/18/24 Lite Meter kit) blood-glucose,supervisory historian,cont #1 ea 10/09/24 (FreeStyle Jody 3 Spray) blood-glucose sensor (FreeStyle #2 ea 01/16/25 Jody 3 Plus Sensor device) linaclotide 290 mcg capsule 290 mcg PO QAM #30 caps 01/23/25 (Linzess) magnesium hydroxide 400 mg/5 mL 20 ml PO BEDTIME PRN constipation 01/23/25 oral suspension (Milk of Magnesia) #3,780 mL simethicone 180 mg capsule 180 mg PO TID #90 caps 01/23/25 methylcellulose (laxative) 500 mg 1,000 mg (2 x 500 mg) PO TID #180 01/30/25 tablet (Fiber Therapy tabs (methylcellulose)) Tresiba FlexTouch U-200 200 58 unit (0.29 mL) subcut DAILY 90 02/20/25 unit/mL (3 mL) subcutaneous pen days #27 mL (insulin degludec) cholecalciferol (vitamin D3) 25 25 mcg PO DAILY #90 caps 03/11/25 mcg (1,000 unit) capsule ibuprofen 800 mg tablet 800 mg PO Q8H PRN for pain 30 days 03/17/25 #90 tabs blood sugar diagnostic (FreeStyle #100 ea 04/29/25 Lite Strips) gabapentin 300 mg capsule 300 mg PO BEDTIME 90 days #90 caps 05/01/25 furosemide 20 mg tablet 20 mg PO DAILY #90 tabs 05/06/25 empagliflozin 25 mg tablet 25 mg PO QAM #30 tabs 05/21/25 (Jardiance) docusate sodium 100 mg capsule 100 mg PO BID #20 caps 06/29/25 (Colace) metformin 500 mg tablet 1,000 mg (2 x 500 mg) PO BID 90 07/24/25 days #360 tabs pen needle, diabetic 29 gauge x #100 ea 07/31/25 1/2 Allergies Allergy/AdvReac Type Severity Reaction Status Date / Time No Known Allergies (No Known Allergy Verified 07/26/25 15:56 Allergies*) [facility] Past Medical History Medical History Generalized muscle ache Acute respiratory disease Impacted cerumen, right ear Acute diarrhea Pain in both feet Calcaneal spur of right foot Achilles tendinitis Callus of foot Right hand pain Abdominal bloating Vertigo Calcaneal spur Colon cancer screening COVID-19 Pre-op examination Elevated LFTs Encounter for Medicare annual wellness exam Bowel obstruction Melena Knee pain, bilateral Gastroenteritis Healed wound Chronic idiopathic constipation Chronic idiopathic constipation Hospital discharge follow-up Knee osteoarthritis Obesity (BMI 30-39.9) Schizoaffective disorder Pure hypercholesterolemia Benign essential hypertension Chronic kidney disease (CKD), stage III (moderate) Type 2 diabetes mellitus with diabetic chronic kidney disease Morbid obesity Dyslipidemia 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 diabetes mellitus senior living (current) use of insulin Diabetic polyneuropathy associated with type 2 diabetes mellitus Schizo affective schizophrenia Diabetes type 2, uncontrolled Surgical History History of repair of congenital cleft palate Hx of circumcision Family History Family History Father HTN (hypertension) Mother Diabetes Other Mental health problem Social History Social History Household Members: None Housing: Apartment Are you a primary pet caretaker to a significant other at home: No Do you presently have visiting nurse or other home services: Yes Alcohol intake: former Patient Tobacco Use Status: Former Tobacco user Tobacco use type: Cigarette Cigarettes Per Day: 15 Years Smoked: 8 quit 30 years ago e-Cigarette/Vaping Use: Never Used Second Hand Smoke Exposure: No Substance Use Type: Prescription Drugs Advance Directives: No Advance Directives Information Provided: No service: No Current occupational status: employed Current occupation: [employer] Cognitive needs: No Hearing needs: No Vision needs: Yes (glasses) Physical Exam ED Vital Signs: Vital Signs - 24 hr 07/27/25 18:00 07/27/25 21:07 07/28/25 04:02 Temperature 99.6 F 98.5 F 98.4 F Pulse Rate 95 100 94 Respiratory Rate 18 20 Blood Pressure 105/50 L 111/66 126/72 Pulse Oximetry 97 95 95 Oxygen Delivery Method Room Air Room Air Room Air 07/28/25 08:36 07/28/25 08:46 Temperature Pulse Rate 103 H Respiratory Rate Blood Pressure 132/74 Pulse Oximetry 94 Oxygen Delivery Method BMI result Body Mass Index 37.8 GENERAL APPEARANCE: ?AxOx4, generally well-appearing, no acute distress. HEENT: ?NC, AT. MMM. EOMI, clear conjunctiva, oropharynx clear. NECK: ?Supple without lymphadenopathy.? No stiffness or restricted ROM. HEART:? Normal rate and regular rhythm, normal S1/S2, no m/r/g LUNGS:? CTAB, moving air well. No crackles or wheezes are heard. ABDOMEN: ?Soft, nontender, nondistended BACK: No CVAT, no obvious deformity. EXTREMITIES: ?Without cyanosis, clubbing or edema. NEUROLOGICAL: ?Grossly nonfocal. Alert and oriented, moving all 4 extremities. Skin: ?Warm and dry without any rash. Medications Administered Discontinued Medications Generic Name Dose Route Start Last Admin Trade Name Freq PRN Reason Stop Dose Admin Acetaminophen 975 mg 07/26/25 18:37 07/26/25 19:36 Acetaminophen 325 Mg Tablet PO 07/26/25 18:38 975 mg ONCE ONE Administration Acetaminophen 650 mg 07/27/25 12:02 07/27/25 21:01 Acetaminophen 325 Mg Tablet PO 650 mg Q8H PRN Administration Pain Atorvastatin Calcium 10 mg 07/27/25 21:00 07/27/25 20:59 Atorvastatin Calcium 10 Mg Tablet PO 10 mg BEDTIME SALENA Administration Benzonatate 100 mg 07/26/25 18:37 07/26/25 19:36 Benzonatate 100 Mg Capsule PO 07/26/25 18:38 100 mg ONCE ONE Administration Benztropine Mesylate 0.5 mg 07/28/25 09:00 07/28/25 08:56 Benztropine Mesylate 0.5 Mg Tablet PO 0.5 mg BID SALENA Administration Clozapine 100 mg 07/27/25 11:00 07/28/25 08:56 Clozapine 100 Mg Tablet PO 100 mg DAILY SALENA Administration Clozapine 100 mg 07/27/25 00:30 07/27/25 00:53 Clozapine 100 Mg Tablet PO 07/27/25 00:31 100 mg ONCE ONE Administration Clozapine 300 mg 07/27/25 21:00 07/27/25 20:57 Clozapine 100 Mg Tablet PO 300 mg BEDTIME SALENA Administration Docusate Sodium 100 mg 07/27/25 09:00 07/28/25 08:46 Docusate Sodium 100 Mg Capsule PO 100 mg BID SALENA Administration Empagliflozin 25 mg 07/27/25 09:00 07/28/25 08:47 Empagliflozin 25 Mg Tablet PO 25 mg DAILY SALENA Administration Enoxaparin Sodium 40 mg 07/28/25 09:00 07/28/25 08:57 Enoxaparin Sodium 40 Mg/0.4 Ml Syringe SUBCUT 40 mg DAILY SALENA Administration Furosemide 20 mg 07/27/25 09:00 07/28/25 08:46 Furosemide 20 Mg Tablet PO 20 mg DAILY SALENA Administration Protocol Gabapentin 300 mg 07/26/25 23:45 07/27/25 20:58 Gabapentin 300 Mg Capsule PO 300 mg BEDTIME SALENA Administration Guaifenesin/Codeine Phosphate 10 ml 07/27/25 22:12 07/27/25 22:24 Guaifen/Codeine Sf 200/20/10ml 10 Ml Liquid PO 10 ml Q6H PRN Administration Cough Lactated Ringer's 1,000 mls @ 999 mls/hr 07/26/25 17:31 07/26/25 20:45 Lr IV 07/26/25 18:31 Infused .Q1H1M ONE Infusion Ibuprofen 800 mg 07/26/25 23:37 07/27/25 00:53 Ibuprofen 800 Mg Tablet PO 800 mg Q8H PRN Administration for pain Insulin Glargine 40 unit 07/27/25 12:15 07/28/25 08:47 Insulin Glargine,Hum.Rec.Anlog 100 Unit/Ml 10 Ml Vial SUBCUT 40 unit DAILY SALENA Administration Insulin Human Lispro 12 unit 07/27/25 17:00 07/27/25 14:07 Insulin Lispro 100 Unit/Ml 3 Ml Vial SUBCUT Not Given DAILY@1700 COUNTS INCLUDE 234 BEDS AT THE [facility] Insulin Human Lispro 12 unit 07/27/25 17:00 07/27/25 17:58 Insulin Lispro 100 Unit/Ml 3 Ml Vial SUBCUT 12 unit DAILY@1700 COUNTS INCLUDE 234 BEDS AT THE [facility] Administration Metformin HCl 1,000 mg 07/26/25 23:45 07/28/25 08:46 Metformin Hcl 1,000 Mg Tablet PO 1,000 mg BIDWM SALENA Administration Metoclopramide HCl 10 mg 07/27/25 11:45 07/28/25 08:46 Metoclopramide Hcl 10 Mg Tablet PO 10 mg BID SALENA Administration Senna 8.6 mg 07/26/25 23:52 07/27/25 20:58 Sennosides 8.6 Mg Tablet PO 8.6 mg BEDTIME SALENA Administration Simethicone 160 mg 07/27/25 15:00 07/28/25 08:46 Simethicone 80 Mg Tab.Chew PO 160 mg TID SALENA Administration Tamsulosin HCl 0.4 mg 07/27/25 21:00 07/27/25 20:59 Tamsulosin Hcl 0.4 Mg Capsule PO 0.4 mg BEDTIME SALENA Administration Vitamin D 25 mcg 07/27/25 09:00 07/28/25 08:47 Cholecalciferol (Vitamin D3) 25 Mcg Tablet PO 25 mcg DAILY SALENA Administration Medical Decision Making Medical Decision Making MDM Narrative: 64-year-old male with medical history of T2DM on insulin, schizoaffective disorder, HLD, CKD stage 3, HTN, HLD, osteoarthritis, vertigo, presents to the ED by EMS due to productive cough, SOB, fatigue, and weakness. Patient states he started with a productive cough 2 days ago that has progressed into fatigue, an episode of SOB while carrying in groceries, and B/L lower extremity weakness causing 2 falls today. Labs without leukocytosis/leukopenia, stable normocytic anemia with a hemoglobin of 13.8, hematocrit of 39.8, decreased carbon dioxide of 20 however this seems to be around patient's baseline, random glucose of 184, mild transaminitis with an AST of 45, ALT of 89, and alkaline phosphatase of 217 CXR WNL UA reveals greater than a 1000 urine glucose, without blood or evidence of bacteria Viral serology positive for COVID infection Patient with productive cough, episode of SOB, with fatigue and weakness with positive COVID test. Patient's symptoms most likely due to COVID however is afebrile, stable without leukocytosis, electrolyte abnormality. Patient is afebrile, and was assessed for hypoxia with ambulation and was negative. This time patient does not meet admission criteria. Patient states he is very weak in his legs and does not feel safe at home. Patient will be evaluated by Physical therapy in the morning and reviewed by case management to see if he would benefit from short-term rehab stay. Patient is stable and resting at this time and in agreement with the plan. Patient entering [facility] obs at 22:12 as he awaits evaluation from PT. Differential Diagnosis Differential Diagnoses: The differential diagnosis associated with the presentation includes Viral illness COVID Flu RSV Bronchitis Pneumonia Lab Data 07/26/25 15:50 07/26/25 15:50 Labs: Lab Results 07/26/25 07/26/25 Range/Units 15:50 16:50 WBC 7.5 (4.8-10.8) X10*3/uL RBC 4.77 (4.60-5.80) X10*6/uL Hgb 13.8 L (14.0-18.0) g/dl Hct 39.8 L (42.0-52.0) % MCV 83.4 (80.0-98.0) fL MCH 28.9 (27.0-33.0) pg MCHC 34.7 (31.0-36.0) g/dl RDW 13.1 (11.0-16.0) % Plt Count 109 L (160-400) X10*3/uL MPV 10.3 (9.4-12.4) fL Immature Gran % (Auto) 0.8 H (0.0-0.4) % Neut % (Auto) 82.0 H (45-73) % Lymph % (Auto) 8.7 L (20-40) % [place] % (Auto) 8.4 (2-11) % Eos % (Auto) 0.0 (0-4) % Baso % (Auto) 0.1 (0-2) % Lymph # (Auto) 0.7 L (1.2-4.9) X10*3/uL [place] # (Auto) 0.6 (0.1-1.2) X10*3/uL Eos # (Auto) 0.0 (0.0-0.4) X10*3/uL Baso # (Auto) 0.0 (0.0-0.2) X10*3/uL Abs Immat Gran (auto) 0.06 H (0.00-0.03) X10*3/uL Absolute Neuts (auto) 6.1 (2.0-8.3) x10*3/uL Absolute Nucleated RBC 0.020 H (0.0-0.012) X10*3/uL Nucleated RBC % (auto) 0.3 H (0.0-0.2) /100WBC Sodium 136 (135-145) mmol/L Potassium 3.8 (3.3-5.1) mmol/L Chloride 104 (96-108) mmol/L Carbon Dioxide 20 L (22-29) mmol/L Anion Gap 16 (12-20) BUN 22 H (9-16) mg/dL Creatinine 1.20 (0.5-1.4) mg/dL Estim Creat Clear Calc 90.2 Estimated GFR > 60 Random Glucose 184 H (60-115) mg/dL Calcium 9.1 (8.4-10.2) mg/dL Total Bilirubin 0.5 (0.0-1.0) mg/dL AST 45 H (5-37) U/L ALT 89 H (0-40) U/L Alkaline Phosphatase 217 H (39-117) U/L Total Creatine Kinase 85 (38-174) U/L Total Protein 6.9 (6.5-8.0) g/dL Albumin 4.0 (3.5-5.0) g/dL Urine Color Yellow Urine Appearance Clear Urine pH 5.5 (5.0-9.0) Ur Specific [place] 1.025 (1.005-1.025) Urine Protein Negative (Neg-Trace) mg/dL Urine Glucose (UA) >=1000 H (Negative) mg/dL Urine Ketones Negative (Negative) mg/dL Urine Blood Negative (Negative) Urine Nitrite Negative (Negative) Ur Leukocyte Esterase Negative (Negative) Urine RBC 0-2 (0-2) /HPF Urine WBC 0-5 (0-5) /HPF Ur Squamous Epith Cells 0-2 (0-2) /HPF Urine Bacteria None Seen (None Seen) Hyaline Casts 0-2 (0-2) /LPF Influenza Type A (PCR) NEGATIVE (Negative) Influenza Type B (PCR) NEGATIVE (Negative) RSV RNA Qual (PCR) NEGATIVE (Negative) SARS-CoV-2 RNA (RT-PCR) POSITIVE A (Negative) Discharge Plan Discharge Clinical Impression: COVID Patient Disposition: Home, Self-Care Instructions: COVID-19 (Coronavirus Disease 2019) (ED) Additional Instructions: You were evaluated in the emergency department due to cough, weakness, fatigue. You were found to be COVID positive and this is most likely what is contributing to your symptoms. You were evaluated by physical therapy and were not found to have any physical deficits requiring rehabilitation. COVID is a viral illness that resolves on its own and does not need antibiotics. To manage fevers/body aches at home I recommend you take 500 mg of Tylenol, and 400 mg of ibuprofen every 6 hours. Please ensure that you are getting adequate hydration through Gatorade, Powerade, Pedialyte during this time. Please follow up with your primary care doctor to ensure resolution of your symptoms. I recommend you wear a mask when around other people to stop the spread of infection. Please return to the emergency department if you experience fevers over 100.4 that are not managed by Tylenol/ibuprofen, worsening cough, worsening shortness of breath, worsening weakness or any new/worsening/concerning symptoms. Prescriptions: No Action (DME) blood-glucose meter [FreeStyle Lite Meter] Kit See Rx Instructions .Route Qty: 1 5RF Rx Instructions: Tests 4 X/day (DME) lancets [FreeStyle Lancets] 28 gauge misc See Rx Instructions .Route Qty: 100 4RF Rx Instructions: Tests 5x/day (DME) blood-glucose meter [FreeStyle Lite Meter] Kit See Rx Instructions .ROUTE .MEDSUPPLY Qty: 1 0RF Rx Instructions: As directed (DME) FreeStyle Jody 3 Spray Misc See Rx Instructions .ROUTE .MEDSUPPLY Qty: 1 0RF Rx Instructions: As directed for use with freestyle jody 3+ sensor Fiber Therapy (m-cellulose) 500 mg tablet 1,000 mg PO TID Qty: 180 6RF Tresiba FlexTouch U-200 200 unit/mL (3 mL) insulin pen 58 unit subcut DAILY 90 Days Qty: 27 3RF cholecalciferol (vitamin D3) 25 mcg (1,000 unit) capsule 25 mcg PO DAILY Qty: 90 4RF ibuprofen 800 mg tablet 800 mg PO Q8H PRN (Reason: for pain) 30 Days Qty: 90 0RF Rx Instructions: take with food (DME) FreeStyle Lite Strips Strip See Rx Instructions .Route Qty: 100 5RF Rx Instructions: Tests 5X/day gabapentin 300 mg capsule 300 mg PO BEDTIME 90 Days Qty: 90 1RF furosemide 20 mg tablet 20 mg PO DAILY Qty: 90 1RF Jardiance 25 mg tablet 25 mg PO QAM Qty: 30 3RF metformin 500 mg tablet 1,000 mg PO BID 90 Days Qty: 360 1RF (DME) pen needle, diabetic 29 gauge x 1/2 needle See Rx Instructions .ROUTE DAILY Qty: 100 3RF Rx Instructions: BID benztropine 0.5 mg tablet 0.5 mg PO BID docusate sodium [Colace] 100 mg capsule 100 mg PO BID Qty: 20 0RF clozapine 100 mg tablet 300 mg PO BEDTIME tamsulosin 0.4 mg capsule 0.4 mg PO BEDTIME insulin lispro [Humalog KwikPen Insulin] 100 unit/mL insulin pen 12 unit subcut DAILY@1700 Rx Instructions: WITH LARGEST MEAL OF THE DAY. PATIENT REPORTS WITH DINNER atorvastatin 10 mg tablet 10 mg PO BEDTIME acetaminophen 500 mg tablet 500 mg PO Q6-8H PRN (Reason: Pain) Rx Instructions: SHOULD NOT EXCEED TOTAL DAILY DOSE OF 2000 mg/day - cause affect liver if high dose is taken regularly metoclopramide HCl 10 mg tablet 10 mg PO BID hydroxyzine pamoate 50 mg capsule 100 mg PO DAILY PRN (Reason: Anxiety) clozapine 100 mg tablet 100 mg PO DAILY@0900 Linzess 290 mcg capsule 290 mcg PO QAM Qty: 30 6RF magnesium hydroxide [Milk of Magnesia] 400 mg/5 mL suspension 20 ml PO BEDTIME PRN (Reason: constipation) Qty: 3780 6RF simethicone 180 mg capsule 180 mg PO TID Qty: 90 6RF (DME) FreeStyle Jody 3 Plus Sensor Device See Rx Instructions .ROUTE .MEDSUPPLY Qty: 2 11RF Rx Instructions: every 15 days for continuous use Referrals: Luis Manuel Garcia MD [Primary Care Provider, Internal Medicine] Interventions: ED Discharge Assessment Last Done: 07/28/25 11:23 Discharge Date/Time: 07/28/25 11:24 Print Language: Turkish
[2025-07-26] MEDS: Lactated Ringers 1,000 ML 999 ML IV (17:53)
[2025-07-26 17:56] VITALS: BP 102/51; PULSE 89; RESP 18; TEMP 37.4; O2SAT 95
[2025-07-26 22:00] VITALS: BP 108/61; PULSE 90; TEMP 37; O2SAT 95
--- NOTE | 2025-07-27 03:43 | PC.NURSE ---
Pt sleeping at the bedside. No apparent distress noted. Breaths are even regular and unlabored with equal chest rises. Monitoring is ongoing.
[2025-07-27 03:55] VITALS: BP 93/62; PULSE 85; RESP 16; TEMP 36.9; O2SAT 95
[2025-07-27 08:15] VITALS: BP 109/73
[2025-07-27 08:18] VITALS: BP 109/73; PULSE 84; RESP 16; O2SAT 95
--- NOTE | 2025-07-27 10:15 | PHA.MEDREC ---
Pharmacy Consult ? Medication Reconciliation Pharmacy has completed the medication reconciliation. Spoke with patient to confirm medications. He takes clozapine 100 mg in the morning and 300 mg at bedtime. He takes 12 units of humalog with the largest meal of the day which is dinner for him. He takes 58 units of Tresiba in the morning, He reports taking Linzess daily (LF 05/11/25 x30 DS) and metoclopramide BID (LF 03/11/25 x30 DS #90 tabs) per claim history. Per Rosita, he never picked up sildenafil or tadalafil. Patient reports he took his morning medications yesterday at home including 100 mg of clozapine. He also was given 100 mg of clozapine @0053 here at [facility].
[2025-07-27 10:53] VITALS: BP 100/70; PULSE 84; RESP 17; TEMP 36.7; O2SAT 96
[2025-07-27] MEDS: Insulin Glargine,Hum.rec.anlog 100 UNIT/ML 10 ML VIAL 40 UNIT SUBCUT (12:17)
--- NOTE | 2025-07-27 13:27 | MHC.CM.ED ---
Received case management consult overnight. Patient came to the ER due to weakness. Found to be positive for Covid. Physical therapy eval ordered and pending. Not available before Saturday 07/28. Met with patient in regards to discharge planning. Patient lives alone, ambulates independently and still works. PCP verified. Patient is unsure if he will be agreeable to STR because he has to work. Patient is unsure if he can safely go home at this time and willing to wait for PT eval to determine safe d/c plan. If STR is rec, anticipate he will be difficult to place d/t Covid. Referral will be broadcasted locally at this time. Continue to monitor for d/c needs.
[2025-07-27 18:00] VITALS: BP 105/50; PULSE 95; TEMP 37.6; O2SAT 97
[2025-07-27 21:07] VITALS: BP 111/66; PULSE 100; RESP 18; TEMP 36.9; O2SAT 95
[2025-07-27] MEDS: guaiFEN/Codeine SF 200/20/10ML 10 ML LIQUID PO (22:24)
--- NOTE | 2025-07-27 22:27 | PC.NURSE ---
pt medicated per OCT for cough and general body aches
[2025-07-28 04:02] VITALS: BP 126/72; PULSE 94; RESP 20; TEMP 36.9; O2SAT 95
[2025-07-28 08:36] VITALS: PULSE 103; O2SAT 94
[2025-07-28 08:46] VITALS: BP 132/74
[2025-07-28] MEDS: Insulin Glargine,Hum.rec.anlog 100 UNIT/ML 10 ML VIAL 40 UNIT SUBCUT (08:47)
--- NOTE | 2025-07-28 10:12 | MHC.CM.ED ---
Pt passed PT and is able to return to home without services. Pt states he needs transportation to home. [facility] shuttle can assist at 11:30 today. Pt will need to be masked. ED PA and RN aware of d/c plan.
[2025-07-28 11:23] VITALS: BP 132/74; BP 141/82; PULSE 74; PULSE 88; RESP 18; RESP 20; TEMP 36.8; TEMP 37.2; O2SAT 95; O2SAT 97
== END 2025-07-28 11:24 | disposition home or self-care (01) ==
PROVIDERS: Emergency Provider Emergency Medicine; PCP Internal Medicine
DX: R06.02 Shortness of breath (principal); U07.1 COVID-19; M79.10 Myalgia, unspecified site; Z91.81 History of falling; E11.9 Type 2 diabetes mellitus without complications; I10 Essential (primary) hypertension; E78.00 Pure hypercholesterolemia, unspecified; Z87.891 Personal history of nicotine dependence; Z79.899 Other long term (current) drug therapy; Z79.4 Long term (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
CPT/HCPCS: 71045; 80053; 81001; 82550; 85025; 87637; 96360; 96361; 97161; 99285; J1650; J7120

== ENCOUNTER → 2025-07-26 16:07 | Outpatient (BNV) | payer OTHER, SELFPAY | PROVIDERS: Emergency Provider Emergency Medicine; PCP Internal Medicine; Visit Provider Radiology Diagnostic Radiology | DX: R05.9 Cough, unspecified (principal); R06.02 Shortness of breath | CPT/HCPCS: 71045 ==

== ENCOUNTER 2025-08-04 11:08 | Outpatient (AMB) | payer OTHER, SELFPAY ==
--- OUTSIDE RECORDS SUMMARY | 2024-11-15 05:00 | XMS_ITS ---
Author Organization [facility] Address [address] [place] [address] Care Team Providers Care Lithographic Plate Maker Apprentice Name Role Phone Luis Manuel Garcia MD Primary Care Provider Unava Tu Frederick Unavailable [phone] Encounters Encounter Location Date Provider Diagnosis [facility] [address] [place] [address] 11/15/2024 Tu Pierre Plan Of Treatment No Information Progress Notes * Mike BAIRDDOB:[birth year] (64 yo M)Acc No.[id number]:11/15/2024 Progress Note Patient: Mike JACOBO Provider: Magaly Pierre DPM :1960 A ge:64 Y S ex:Male Date:11/15/2024 Address:[address] [place] Pcp:Luis Manuel Garcia MD Subjective: * Chief Complaints: * * Medical History: Objective: * Vitals: Assessment: Plan: * Treatment: * Images: * The named appointment provid er may or may not be the originator of this progress note, and it is not deemed complete until electronically signed by the appointment provider. Sign off status: Pending * Provider: Magaly Pierre DPM Date: 0 11/15/2024 Generated for Ruthy wood/Garrison/Harvey on: 10/05/2024 02:10 PM EST
--- NOTE | 2025-08-04 11:38 | AM.OFFWIN_ITS ---
Intake Vital Signs 08/04/25 11:39 Height 6 ft 1 in Weight 273 lb BMI 36.0 BP 92/60 Blood Pressure Location Rt brachial Position Sitting Pulse 92 Pulse Source Pulse Oximeter Temp 97.7 F Temp Source Oral Pulse Oximetry (%) 98 Oxygen Delivery Method Room Air Intake Visit Reasons: eP dizziness and feel faint comes and goes Intake Note: pt presents with dizziness and feeling faint x3 days- pt states this worsens when laying down- room seems to spin really hard, Patient Tobacco Use Status: Former Tobacco user Allergies No Known Allergies (No Known Allergies*) Allergy (Verified 08/04/25 11:49) Do you need a note to return to daycare/school/sports/work: No HPI HPI Comments History of Present Illness Details 64 y/o Male presents to the walk-in clin ic with c/o dizziness and feeling faint x 3 days. Dizziness is intermittent and worsens when lying down; describes room spinning (vertigo). Recent history of diarrhea; evaluated at [facility]. SARS-CoV-2 positive (07/2025). Patient reports poor oral intake and possible dehydration. Diarrhea has resolved; now experiencing constipation, partially relieved with Milk of Magnesia. Denies fevers, chills, nausea, or vomiting. FOR[facility]LY [facility] Medical History Generalized muscle ache Acute respiratory disease Impacted cerumen, right ear Acute diarrhea Pain in both feet Calcaneal spur of right foot Achilles tendinitis Callus of foot Right hand pain Abdominal bloating Vertigo Calcaneal spur Colon cancer screening COVID-19 Pre-op examination Elevated LFTs Encounter for Medicare annual wellness exam Bowel obstruction Melena Knee pain, bilateral Gastroenteritis Healed wound Chronic idiopathic constipation Chronic idiopathic constipation Hospital discharge follow-up Knee osteoarthritis Obesity (BMI 30-39.9) Schizoaffective disorder Pure hypercholesterolemia Benign essential hypertension Chronic kidney disease (CKD), stage III (moderate) Type 2 diabetes mellitus with diabetic chronic kidney disease Morbid obesity Dyslipidemia 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 diabetes mellitus jail (current) use of insulin Diabetic polyneuropathy associated with type 2 diabetes mellitus Schizo affective schizophrenia Diabetes type 2, uncontrolled Surgical History History of repair of congenital cleft palate Hx of circumcision Family History Father HTN (hypertension) Mother Diabetes Other Mental health problem Social History Household Members: None Housing: Apartment Are you a primary nurse behavioral health care to a significant other at home: No Do you presently have visiting nurse or other home services: Yes Alcohol intake: former Patient Tobacco Use Status: Former Tobacco user Tobacco use type: Cigarette Cigarettes Per Day: 15 Years Smoked: 8 quit 30 years ago e-Cigarette/Vaping Use: Never Used Second Hand Smoke Exposure: No Substance Use Type: Prescription Drugs service: No Current occupational status: employed Current occupation: [employer] Cognitive needs: No Hearing needs: No Vision needs: Yes (glasses) Physical Exam Vital Signs: Last Vital Signs Temp 97.7 F 08/04/25 11:39 Pulse 92 08/04/25 11:39 BP 92/60 08/04/25 11:39 Pulse Ox 98 08/04/25 11:39 Oxygen Delivery Method Room Air 08/04/25 11:39 BMI result Body Mass Index 36.0 Const General: comfortable, no acute distress and poor hygiene Nutritional Appearance: obese Orientation/consciousness: patient oriented x3 Resp Effort & Inspection: normal respiratory effort Auscultation: clear to auscultation bilaterally Cardio Heart sounds: S1 normal heart sound present and S2 normal heart sound present Neuro General: patient oriented x3 and moves all extremities Assessment & Plan Assessment & Plan (1) Acute respiratory disease: Code(s): J06.9 - Acute upper respiratory infection, unspecified Plan: Ordered SARs. Vertigo, likely secondary to dehydration and recent illness. Dehydration due to poor oral intake and recent diarrhea. Post-COVID recovery status. Encourage oral hydration and electrolyte replacement. Monitor dizziness; advise slow positional changes to reduce vertigo symptoms. Continue Milk of Magnesia as needed for constipation; increase dietary fiber. Provided education on post-viral symptoms and hydration importance. Orders: Orders SARS-CoV2/FLU/RSV Today R09.89 - Other specified symptoms and signs involving the circulatory and respiratory systems Coding Level of Care Code Est Pt Level 4 (08976) Diagnoses Acute respiratory disease J06.9 Time Spent (min) 20
[2025-08-04 11:39] VITALS: BP 92/60; PULSE 92; TEMP 36.5; O2SAT 98; BMI 36.0
--- OUTSIDE RECORDS SUMMARY | 2025-08-04 14:10 | XMS_ITS | Patient Health Record ---
Author Organization [facility] [place] Address [address] [place] [address] Care Team Providers Care Shop Teacher Name Role Phone Jose RENAE, Luis Manuel Primary Care Provider UnaTu Paul Unavailable [phone] Allergies No Known Allergies Reason For Referral [...] Problem Acquired hammer toe of right foot (175554706301218 5) Other hammer toe(s) (acquired), right foot (M20.41) Active confirmed Problem Plantar fascial fibromatosis (18489266) Plantar fascial fibromatosis (M72.2) Active confirmed Problem Acquired hammer toe of left foot (105523384416934 3) Other hammer toe(s) (acquired), left foot (M20.42) Active confirmed Problem Type II diabetes mellitus without complication (721038169) Type 2 diabetes mellitus without complication (E11.9) Active confirmed Vital Signs Blood pressure diastolic 80 mm Hg 08/30/2024 Height 6ft in 08/30/2024 Blood pressure systolic 130 mm Hg 08/30/2024 Weight 270 lbs 08/30/2024 BMI 36.61 kg/m2 08/30/2024 Procedures Procedure Date Ordered Date Performed Result Body Sit e 98646-BDQGDOQ NAIL, 6 OR MORE 08/30/2024 N/A 04267-MMNE SKIN LESIONS, 2 TO 4 08/30/2024 N/A Encounters Encounter Location Date Provider Diagnosis [facility] [address] 08/30/2024 Tu Pierre Pain in right toe(s) M79.674 ; Tinea unguium B35.1 ; Pain in left toe(s) M79.675 ; Type 2 diabetes mellitus without complication E11.9 ; Other hammer toe(s) (acquired), right foot M20.41 and Other hammer toe(s) (acquired), left foot M20.[address] [address] 09/03/2024 Tu Pierre [facility] [address] 10/01/2024 Tu Pierre [facility] [address] 12/06/2024 Tu Pierre Plantar fascial fibromatosis M72.2 [...] X ray : Foot, right 3V 03/08/2024 12434-KJUWKKS NAIL, 6 OR MORE 03/08/2024 30882-CMUHNMQ NAIL, 6 OR MORE 06/21/2024 22723-ZLUCCON NAIL, 6 OR MORE 08/30/2024 49807-Rykoeaqu Plate 03/08/2024 18040-CFMW SKIN LESIONS, 2 TO 4 03/08/20 24 61004-OEBC SKIN LESIONS, 2 TO 4 08/30/19 25 44544-QGEJ SKIN LESIONS, 2 TO 4 06/21/20 24 Insurance Providers Payer Name Payer Address Payer Phone Subscriber Number Group Number Insured Name Patient Relationship to Insured Coverage Start Date Coverage End Date [facility] [employer] Claims [address] [place] [id number] Mike Cornejo Self - patient is the insured Medical (General) History Medical History History ICD Code Diabetic Surgical History Surgery Date(Month/Year)
== END 2025-08-04 12:45 | disposition home or self-care (01) ==
PROVIDERS: PCP Internal Medicine; Visit Provider Nurse Practitioner Family
DX: J06.9 Acute upper respiratory infection, unspecified (principal)

== ENCOUNTER 2025-08-04 11:08 | Outpatient (REF) | payer OTHER, SELFPAY | END 2025-08-04 11:09 | disposition home or self-care (01) | LOC: HO.LNP 11:08 | PROVIDERS: PCP Internal Medicine | DX: J06.9 Acute upper respiratory infection, unspecified (principal); Z87.891 Personal history of nicotine dependence | CPT/HCPCS: 99212 ==

== ENCOUNTER 2025-08-04 13:00 | Outpatient (REF) | payer OTHER, SELFPAY ==
[2025-08-04 14:24] LABS: Resp Syncy Virus RNA Qual PCR NEGATIVE (Negative); SARS COV2 PCR INHOUSE POSITIVE (Negative)
[2025-08-04 16:03] LABS: MANUAL DIFF FLAG NO
[2025-08-04 16:09] LABS: Hematocrit 45.8 % (42.0-52.0); Hemoglobin 15.2 g/dl (14.0-18.0); Imm Gran Abs Auto 0.09 X10*3/uL (0.00-0.03); Imm Gran Pct Auto 1.3 % (0.0-0.4); Lymphocytes Absolute Auto 1.3 X10*3/uL (1.2-4.9); Mean Corpuscular HGB Conc 33.2 g/dl (31.0-36.0); Mean Corpuscular Hemoglobin 29.1 pg (27.0-33.0); Mean Corpuscular Volume 87.6 fL (80.0-98.0); NRBC Abs Auto 0.000 X10*3/uL (0.0-0.012); NRBC Pct Auto 0.0 /100WBC (0.0-0.2); Platelet Count 149 X10*3/uL (160-400); Red Blood Count 5.23 X10*6/uL (4.60-5.80); White Blood Count 6.8 X10*3/uL (4.8-10.8)
[2025-08-04 16:57] LABS: Alanine Aminotransferase 70 U/L (0-40); Albumin Level 4.4 g/dL (3.5-5.0); Alkaline Phosphatase 200 U/L (39-117); Anion Gap 14 (12-20); Aspartate Amino Transferase 41 U/L (5-37); Blood Urea Nitrogen 26 mg/dL (9-16); Calcium 9.7 mg/dL (8.4-10.2); Carbon Dioxide 24 mmol/L (22-29); Chloride 109 mmol/L (96-108); Cholesterol 141 mg/dL (<200); Estimated Glomerular Filt Rate > 60; HDL Cholesterol 32 mg/dL (>40); Potassium 4.5 mmol/L (3.3-5.1); Sodium 142 mmol/L (135-145); Total Protein 7.7 g/dL (6.5-8.0); Triglycerides 220 mg/dL (<150)
[2025-08-04 17:14] LABS: Folate 3.7 ng/mL (> or = 4.0); Vitamin B12 848 pg/mL (200-900)
== END 2025-08-04 13:01 | disposition home or self-care (01) ==
LOC: HO.HMGCLDS 13:00
PROVIDERS: Nurse Practitioner Family; PCP Internal Medicine; Visit Provider Internal Medicine
DX: E53.8 Deficiency of other specified B group vitamins (principal); D64.9 Anemia, unspecified; E78.00 Pure hypercholesterolemia, unspecified; E55.9 Vitamin D deficiency, unspecified; E11.9 Type 2 diabetes mellitus without complications; R09.89 Other specified symptoms and signs involving the circulatory and respiratory systems; Z11.52 Encounter for screening for COVID-19
CPT/HCPCS: 36415; 80053; 80061; 82306; 82607; 82746; 83036; 84443; 85025; 87637